=== PATIENT | female | born 1955 | race Caucasian/White ===

== ENCOUNTER 2016-11-21 07:25 | Observation (INO) ==
[2016-11-21] MEDS ORDERED: Aspirin 81 MG TAB.CHEW PO ONE (07:37)
[2016-11-21] MEDS ORDERED: methylPREDNISolone 125 MG/2 ML VIAL IVP ONE (07:38)
[2016-11-21] MEDS ORDERED: Ipratropium/Albuterol Neb 3 ML IH ONE (07:38)
[2016-11-21] MEDS ORDERED: *HR* LORazepam 2 MG/ML VIAL IVP ONE (07:38)
[2016-11-21 08:05] LABS: Basophils # 0.1 K/mcL (0.0-0.2); Basophils % 1.1 %; Eosinophils # 0.3 K/mcL (0.0-0.6); Eosinophils % 2.4 %; Hematocrit 38.9 % (35.3-44.9); Hemoglobin 11.6 g/dL (11.5-15.4); Immature Granulocytes % 1.7 % (0-4); Lymphocytes # 2.9 K/mcL (0.6-4.6); Mean Corpuscular HGB Conc 29.8 g/dL (31.6-35.5); Mean Corpuscular Volume 83.8 fL (83.0-100.0); Mean Platelet Volume 11.3 fL (9.4-12.4); Monocytes # 0.6 K/mcL (0.0-1.3); Monocytes % 4.4 %; Platelet Count 202 K/mcL (140-400); Red Blood Count 4.64 M/mcL (3.82-4.97); Red Cell Distribution Width 15.3 % (11.5-14.5); Segmented Neutrophils % 68.4 %
[2016-11-21 08:11] LABS: INR 0.9; Prothrombin Time 10.1 Seconds (9.4-12.1)
[2016-11-21 08:14] LABS: Activated Partial Thrombo Time 27.8 Seconds (26.0-36.0)
[2016-11-21 08:21] LABS: BUN/Creatinine Ratio 27 (6-26); Blood Urea Nitrogen 25 mg/dL (7-20); Calcium 9.1 mg/dL (8.6-10.8); Carbon Dioxide 25 mEq/L (19-29); Chloride 99 mEq/L (98-109); Glucose 382 mg/dL (70-99); Osmolality,Calculated 300 (280-300); Potassium 4.3 mEq/L (3.5-4.5); Sodium 135 mEq/L (136-145); eGFR For African Americans > 60 (> 60); eGFR For Non-African Americans > 60 (> 60)
--- NOTE | 2016-11-21 08:59 | Emergency Department Note ---
Disposition Clinical Impression: Hypoxia Chest pain Qualifiers: Chest pain type: unspecified Qualified Code(s): R07.9 - Chest pain, unspecified COPD (chronic obstructive pulmonary disease) Qualifiers: COPD type: COPD with acute exacerbation Qualified Code(s): J44.1 - Chronic obstructive pulmonary disease with (acute) exacerbation Disposition: Admitted As Inpatient Condition: Good Referrals: Corey Waddell DO [Resident] - Forms: ED Satisfaction Letter Time of Disposition: 09:43 General Adult HPI - General Chief complaint: ED Shortness of Breath/Dyspnea Stated complaint: CHEST PAIN, PAINS Time Seen by Provider: 11/21/16 07:30 Source: patient Mode of arrival: ambulatory Limitations: no limitations Nursing Notes Reviewed: Yes Vital Signs Reviewed: Yes - History of Present Illness HPI Narrative: Patient presents emergency room with complaint of chest pain shortness of breath. She has long-standing history of cardiac disease she has been admitted multiple times for this. She also has COPD and emphysema. She denies any recent travel or illnesses. She denies fevers chills nausea vomiting or diarrhea. Denies headache or vision changes remain complaint here is chest pain left side of her chest wall. She took 2 nitroglycerin at home and it did not do anything for her symptoms she also took her home inhaler medication and seemed to help with her breathing but she was concerned and decided to come in to the emergency room. 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 Radiation: back Pain Severity: moderate Pain Scale: 7 Quality: aching Consistency: constant Improves with: nothing Worsens with: movement Associated symptoms: Reports: chest pain, shortness of breath Treatments Prior to Arrival: none - Related Data Home Medications Medication Instructions Recorded Confirmed Budesonide/Formoterol 160/4.5 2 puff IH BIDR 04/21/15 11/21/16 [Symbicort] Gabapentin [Neurontin] 800 mg PO TID 04/21/15 11/21/16 Levothyroxine [Synthroid] 100 mcg PO QAM 04/21/15 11/21/16 Metformin [Glucophage] 1,000 mg PO BID 04/21/15 11/21/16 Tiotropium [Spiriva] 18 mcg IH QAM 04/21/15 11/21/16 Amlodipine Besylate 2.5 mg PO DAILY 12/27/15 11/21/16 Atorvastatin Calcium [Lipitor] 40 mg PO DAILY 02/04/16 11/21/16 Buspirone HCl [Buspar] 15 mg PO TID 02/04/16 11/21/16 Montelukast [Singulair] 10 mg PO HS 02/04/16 11/21/16 Oxygen 2 l NS AD PRN 03/17/16 11/21/16 Insulin Glargine [Lantus] 80 unit SQ QPM 03/25/16 11/21/16 Insulin Glargine [Lantus] 90 unit SQ QAM 03/25/16 11/21/16 Albuterol Sulfate [Albuterol 2 puff IH Q4HR PRN 05/01/16 11/21/16 Inhaler] Citalopram Hydrobromide 40 mg PO DAILY 05/01/16 11/21/16 [Citalopram HBr] Ipratropium/Albuterol Neb [Duoneb] 3 ml IH Q6H PRN 05/01/16 11/21/16 Raloxifene [Evista] 60 mg PO DAILY 05/01/16 11/21/16 TraMADol [Ultram] 50 mg PO BID 05/01/16 11/21/16 Dicyclomine HCl [Bentyl] 20 mg PO TID 06/15/16 11/21/16 Fenofibrate Nanocrystallized 145 mg PO DAILY 06/15/16 11/21/16 [Tricor] Promethazine [Phenergan] 25 mg PO Q12H PRN 06/15/16 11/21/16 Buprenorphine [Butrans] 10 mcg TD QWEEK 06/27/16 11/21/16 Baclofen [Lioresal] 10 mg PO TID 08/24/16 11/21/16 Metoprolol Tartrate 25 mg PO BID 08/24/16 11/21/16 Omeprazole [PriLOSEC] 20 mg PO BID 08/24/16 11/21/16 Bumetanide 2 mg PO BID 11/21/16 11/21/16 Metolazone [Zaroxolyn] 5 mg PO Q48H 11/21/16 11/21/16 Nortriptyline [Pamelor] 25 mg PO HS 11/21/16 11/21/16 Oxycodone HCl/Acetaminophen 1 tab PO Q4H PRN 11/21/16 11/21/16 [Percocet 5-325 mg Tablet] Previous Rx's Medication Instructions Recorded Isosorbide MONOnitrate (24 HR) 90 mg PO QAM #90 tab.er.24h 02/05/16 [Imdur] Aripiprazole [Abilify] 10 mg PO HS tablet 05/03/16 ClonazePAM [Klonopin] 1 mg PO TID tablet 05/03/16 Clopidogrel [Plavix] 75 mg PO QAM tablet 06/18/16 Ondansetron HCl [Zofran] 4 mg PO Q6H PRN #20 tablet 08/07/16 Potassium Chloride 40 meq PO DAILY #7 tab.er.prt 10/27/16 Allergies Allergy/AdvReac Type Severity Reaction Status Date / Time No Known Allergies Allergy Verified 11/12/16 02:17 All systems ED: reviewed and negative except as stated. Constitutional: Denies: fever, chills Cardiovascular: Reports: chest pain, dyspnea on exertion, orthopnea. Denies: palpitations Respiratory: Reports: cough, dyspnea, sputum production. Denies: wheezes, stridor Gastrointestinal: Denies: abdominal pain, nausea, vomiting, diarrhea Genitourinary: Denies: dysuria Musculoskeletal: Denies: back pain, neck pain Psychiatric: Denies: anxiety, depression Past Medical History - Past Medical History Attestation: Yes The following information was validated with the patient. 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 Absent : tenderness - Respiratory Respiratory exam: Present: normal lung sounds bilaterally, wheezes. Absent: respiratory distress, stridor, accessory muscle use - Cardiovascular Cardiovascular exam: Present: regular rate, normal rhythm, normal heart sounds - Abdominal Exam Abdominal exam: Present: soft, Non-Tender, normal bowel sounds. Absent: tenderness, distention, guarding, rebound, rigidity, Santana's sign, Rovsing's sign, tenderness at McBurney's Point - Extremities Exam Extremities exam: Present: normal inspection, full ROM, normal capillary refill , pedal edema (Bilateral pitting edema up to the knee.). Absent: tenderness - Back Exam Back exam: Present: normal inspection - Neurological Exam Neurological exam: Present: alert, oriented X3, CN II-XII intact - Psychiatric Psychiatric exam: Present: normal affect Course Course Narrative: Patient seen and examined at the time of arrival. See history of present illness. 61-year-old female presents to emergency room complaining of left- sided chest pain and shortness of breath. She also feels like she is having palpitations. Vision has known cardiac disease that required stenting back in 2007. She is currently on Plavix. Vital signs reviewed on presentation are stable. EKG shows normal sinus rhythm with no acute pathology. This is reviewed and compared to an EKG done on 10/14/16. Patient took 2 nitroglycerin at home without any relief of the symptoms. She said it did not change at all. She also describes having COPD and emphysema for which she is on oxygen at all times at home. Patient on physical exam is in some mild distress she looks uncomfortable. Lungs do have intermittent wheezing. Otherwise clear. Heart is regular with no acute signs of murmur. Abdomen soft nontender nondistended. She moves all 4 extremities without difficulty. She has +2 pitting edema up to the knee. Patient has exertional dyspnea and conversational dyspnea based on evaluation. Patient will be treated for related issues with steroids and breathing treatments at this time. She will also have aspirin given even though she is on Plavix. Patient's to have EKG chest x-ray and troponin completed. Concern is noted for ACS based on her history. I discussed in detail at the bedside whether she fell at this was her lungs or heart. She feels at this time this is more likely to be her heart. She does have baseline anxiety treated her with a single dose of Ativan on presentation to him to help the symptoms. We will continue to monitor as workup is completed. Patient unfortunately will most likely admission for ACS rule out. We will continue monitoring treatment course to be completed. Repeat nitroglycerin was not warranted at this time. Symptoms to be controlled with pain medication and nausea medication this time. - Reevaluation(s) Reevaluation #1: Patient on a stable EKG chest x-ray shows no signs of acute pulmonary infiltrate. Patient says her breathing and chest discomfort has not gotten better with the breathing treatments while here. Pain is decreased during the treatment course. Nitroglycerin was not provided. Patient will have morphine and Zofran given. Nitroglycerin was held secondary to no relief of symptoms while at home. Patient to get admitted for acute coronary syndrome workup and rule out Time: 09:08 Reevaluation #2: Patient discussed with the hospitalist on here in the emergency room. Detailed review presentation symptoms were reviewed with the nurse practitioners is covering for Dr. mares No other recommendations or concerns at this point. Patient to be brought in the hospital for acute coronary syndrome rule out and COPD exacerbation. Patient stable resting comfortably in the bed. Admission process to be completed at this time. Patient is stable and resting comfortably. We will continue to monitor admission processes on. Time: 09:41 Vital Signs Temperature 98.9 F 11/21/16 07:37 Pulse Rate 73 11/21/16 07:37 Respiratory Rate 18 11/21/16 07:37 Blood Pressure 157/71 11/21/16 07:37 O2 Sat by Pulse Oximetry 94 L 11/21/16 07:37 Temperature 98.9 F 11/21/16 07:37 Pulse Rate 90 11/21/16 09:25 Respiratory Rate 18 11/21/16 09:25 Blood Pressure 158/71 11/21/16 09:25 O2 Sat by Pulse Oximetry 92 L 11/21/16 09:25 Oxygen Delivery Oxygen Delivery Nasal Cannula Medical Decision Making - MDM Narrative Medical decision making narrative: Acute coronary syndrome, COPD exacerbation, chest pain - Medical Records Medical records reviewed: Yes I reviewed the patient's medical records. - Lab Data Lab results reviewed: Yes I reviewed the patient's lab results. Result diagrams: 11/21/16 07:55 11/21/16 07:55 Lab Results 11/21/16 11/21/16 11/21/16 Range/Units 07:55 07:55 07:55 WBC 13.1 H (4.3-11.1) K/mcL RBC 4.64 (3.82-4.97) M/mcL Hgb 11.6 (11.5-15.4) g/dL Hct 38.9 (35.3-44.9) % MCV 83.8 (83.0-100.0) fL MCH 25.0 L (28.0-33.3) pg MCHC 29.8 L (31.6-35.5) g/dL RDW 15.3 H (11.5-14.5) % Plt Count 202 (140-400) K/mcL MPV 11.3 (9.4-12.4) fL Immature Gran % 1.7 (0-4) % Seg Neutrophils % 68.4 % Lymphocytes % 22.0 % Monocytes % 4.4 % Eosinophils % 2.4 % Basophils % 1.1 % Neutrophils # 9.0 H (1.6-8.9) K/mcL Lymphocytes # 2.9 (0.6-4.6) K/mcL Monocytes # 0.6 (0.0-1.3) K/mcL Eosinophils # 0.3 (0.0-0.6) K/mcL Basophils # 0.1 (0.0-0.2) K/mcL PT 10.1 (9.4-12.1) Seconds INR 0.9 APTT 27.8 (26.0-36.0) Seconds Sodium (136-145) mEq/L Potassium (3.5-4.5) mEq/L Chloride (98-109) mEq/L Carbon Dioxide (19-29) mEq/L BUN (7-20) mg/dL Creatinine (0.57-1.11) mg/dL Est GFR ( Amer) (> 60) Est GFR (Non-Af Amer) (> 60) BUN/Creatinine Ratio (6-26) Glucose (70-99) mg/dL Calculated Osmolality (280-300) Calcium (8.6-10.8) mg/dL Troponin I (0-0.03) ng/mL B-Natriuretic Peptide 42 (0-100) pg/mL 11/21/16 11/21/16 Range/Units 07:55 07:55 WBC (4.3-11.1) K/mcL RBC (3.82-4.97) M/mcL Hgb (11.5-15.4) g/dL Hct (35.3-44.9) % MCV (83.0-100.0) fL MCH (28.0-33.3) pg MCHC (31.6-35.5) g/dL RDW (11.5-14.5) % Plt Count (140-400) K/mcL MPV (9.4-12.4) fL Immature Gran % (0-4) % Seg Neutrophils % % Lymphocytes % % Monocytes % % Eosinophils % % Basophils % % Neutrophils # (1.6-8.9) K/mcL Lymphocytes # (0.6-4.6) K/mcL Monocytes # (0.0-1.3) K/mcL Eosinophils # (0.0-0.6) K/mcL Basophils # (0.0-0.2) K/mcL PT (9.4-12.1) Seconds INR APTT (26.0-36.0) Seconds Sodium 135 L (136-145) mEq/L Potassium 4.3 (3.5-4.5) mEq/L Chloride 99 (98-109) mEq/L Carbon Dioxide 25 (19-29) mEq/L BUN 25 H (7-20) mg/dL Creatinine 0.93 (0.57-1.11) mg/dL Est GFR ( Amer) > 60 (> 60) Est GFR (Non-Af Amer) > 60 (> 60) BUN/Creatinine Ratio 27 H (6-26) Glucose 382 H (70-99) mg/dL Calculated Osmolality 300 (280-300) Calcium 9.1 (8.6-10.8) mg/dL Troponin I 0.00 (0-0.03) ng/mL B-Natriuretic Peptide (0-100) pg/mL - Radiology Data Radiology results reviewed: Yes I reviewed the patient's radiology results. Chest x-ray is negative for acute pathology - EKG Data EKG #1 EKG attestation: Yes I reviewed and interpreted this EKG. EKG shows normal: sinus rhythm, axis, intervals, QRS complexes, ST-T waves Rate: normal Rhythm: NSR [place]/QRS: normal When compared to previous EKG there are: no significant changes Interpretation: no acute changes, unchanged when compared to prior tracing (date ) (10/14/16) Attestation Statement - Attestation Attestation: I examined this patient and my medical decision-making was reviewed with the GEOPHYSICAL LABORATORY CHIEF/PA/Advanced Practice Nurse/Resident Physician. I agree with the documented findings, disposition and treatment plan as described except to the extent set forth below. Patient emergency department complaining of chest pain. States she woke up with her today. Left-sided. History of multiple cardiac stents. Examination she is in no acute distress. Heart regular rate and rhythm. Plan. Cardiac workup and likely observation.
[2016-11-21] MEDS ORDERED: *HR* Morphine 2 MG/ML SYRINGE IVP ONE (09:05)
[2016-11-21] MEDS ORDERED: Ondansetron 4 MG/2 ML VIAL IV ONE (09:06)
[2016-11-21 09:42] LABS: Bilirubin,Urine Negative (Negative); Blood,Urine Negative (Negative); Clarity,Urine Clear (Clear); Color,Urine Yellow (Yellow); Glucose,Urine (UA) >=1000 mg/dL (Normal); Ketones,Urine Negative (Negative); Leukocyte Esterase,Urine Small (Negative); Nitrite,Urine Negative (Negative); Protein,Urine Negative (Neg-Trace); Urobilinogen,Urine Normal (Normal)
[2016-11-21 10:02] LABS: Bacteria,Urine Few per hpf (None-Few); RBC,Urine 0-3 per hpf (0-3); Squamous Epithelial Cell,Urine Few per lpf (None-Few); WBC,Urine 0-3 per hpf (0-3)
--- NOTE | 2016-11-21 11:01 | Internal Med History&Physical ---
<Michael Floyd - Last Filed: 11/21/16 17:30> Assessment and Plan (1) COPD (chronic obstructive pulmonary disease) Current visit: Yes Status: Acute Qualifiers: COPD type: COPD with acute exacerbation Qualified Code(s): J44.1 - Chronic obstructive pulmonary disease with (acute) exacerbation (2) Chest pain Current visit: No Status: Acute Qualifiers: Chest pain type: precordial pain Qualified Code(s): R07.2 - Precordial pain (3) Chronic venous stasis dermatitis of both lower extremities Current visit: No Status: Chronic (4) Diabetes Current visit: No Status: Chronic 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 mellitus type: type 2 Diabetes mellitus complication status: with hyperglycemia 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 Lynch is a 61 year old female Internal Medicine - H&P: Meds Budesonide/Formoterol 160/4.5 [Symbicort] 2 puff IH BIDR 04/21/15 [History] Gabapentin [Neurontin] 800 mg PO TID 04/21/15 [History] Levothyroxine [Synthroid] 100 mcg PO QAM 04/21/15 [History] Metformin [Glucophage] 1,000 mg PO BID 04/21/15 [History] Tiotropium [Spiriva] 18 mcg IH QAM 04/21/15 [History] Amlodipine Besylate 2.5 mg PO DAILY 12/27/15 [History] Atorvastatin Calcium [Lipitor] 40 mg PO DAILY 02/04/16 [History] Buspirone HCl [Buspar] 15 mg PO TID 02/04/16 [History] Montelukast [Singulair] 10 mg PO HS 02/04/16 [History] Isosorbide MONOnitrate (24 HR) [Imdur] 90 mg PO QAM #90 tab.er.24h 02/05/16 [Rx] Oxygen 2 l NS AD PRN 03/17/16 [History] Insulin Glargine [Lantus] 80 unit SQ QPM 03/25/16 [History] Insulin Glargine [Lantus] 90 unit SQ QAM 03/25/16 [History] Albuterol Sulfate [Albuterol Inhaler] 2 puff IH Q4HR PRN 05/01/16 [History] Citalopram Hydrobromide [Citalopram HBr] 40 mg PO DAILY 05/01/16 [History] Ipratropium/Albuterol Neb [Duoneb] 3 ml IH Q6H PRN 05/01/16 [History] Raloxifene [Evista] 60 mg PO DAILY 05/01/16 [History] TraMADol [Ultram] 50 mg PO BID 05/01/16 [History] Aripiprazole [Abilify] 10 mg PO HS tablet 05/03/16 [Rx] ClonazePAM [Klonopin] 1 mg PO TID tablet 05/03/16 [Rx] Dicyclomine HCl [Bentyl] 20 mg PO TID 06/15/16 [History] Fenofibrate Nanocrystallized [Tricor] 145 mg PO DAILY 06/15/16 [History] Promethazine [Phenergan] 25 mg PO Q12H PRN 06/15/16 [History] Clopidogrel [Plavix] 75 mg PO QAM tablet 06/18/16 [Rx] Buprenorphine [Butrans] 10 mcg TD QWEEK 06/27/16 [History] Ondansetron HCl [Zofran] 4 mg PO Q6H PRN #20 tablet 08/07/16 [Rx] Baclofen [Lioresal] 10 mg PO TID 08/24/16 [History] Metoprolol Tartrate 25 mg PO BID 08/24/16 [History] Omeprazole [PriLOSEC] 20 mg PO BID 08/24/16 [History] Bumetanide 2 mg PO BID 11/21/16 [History] Meclizine [Antivert] 25 mg PO PRN PRN 11/21/16 [History] Metolazone [Zaroxolyn] 5 mg PO Q48H 11/21/16 [History] Nortriptyline [Pamelor] 25 mg PO HS 11/21/16 [History] Oxycodone HCl/Acetaminophen [Percocet 5-325 mg Tablet] 1 tab PO Q4H PRN [History] Potassium Chloride 40 meq PO BID 11/21/16 [History] Allergies No Known Allergies Allergy (Verified 11/12/16 02:17) All Systems PM: A 10-system review of systems was performed and is negative for pertinent findings except as documented above in the HPI. - Constitutional Vitals: Temp Pulse Resp BP Pulse Ox 97.6 F 67 16 132/63 95 11/21/16 17:20 11/21/16 17:20 11/21/16 17:20 11/21/16 17:20 11/21/16 17:20 Internal Med - H&P Results - Labs CBC & Chem 7: 11/21/16 07:55 11/21/16 07:55 Labs: Cardiac Enzymes 11/21/16 Range/Units 14:32 Troponin I 0.00 (0-0.03) ng/mL - Attending Attestation I examined this patient and my medical decision-making was reviewed with the Advanced Practice Nurse on 11/21/16. I agree with the documented findings, disposition and treatment plan as described except to the extent set forth below. Ms. Lynch is a 61 y/o female with multiple medical problems who presented to ED with chest pain and dyspnea. She stated she has a lot of secretions that she can't seem to get up. She feels this pain is cardiac though initial work up negative and nitro did not relieve pain. No fever or chills. No worsening of cough ro secretions. Not smoking now. Exam Alert. Comfortable in bed Mucus membranes dry Heart reg Lungs with some scattered rhonchi in both bases. No wheeze Abd soft Chronic venous stasis changes noted. I/P 1. Chest pain - atypical - on R side, no assoc symptoms, nitro not helpful. R/ O WA. NPO at midnight in case needs any testing. 2. COPD - acute. Steroids, cough syrup, abx, aerosols Added mucomyst for 24 hours. Further diagnoses and plan as outliined in H&P above. <Ashok Gross - Last Filed: 11/21/16 20:55> Date of Encounter: 11/21/16 Time of Encounter: 10:47 Assessment and Plan (1) Chest pain Current visit: Yes Status: Acute Patient reports chest pain and shortness of breath and rates her pain as 7 out of 10 on a 0 to 10 scale. Patient states chest pain is acute and unresolved by two nitroglycerin rounds she took at home prior to coming to the ED on 11/21/16. Patient will be closely monitored and assessed while inpatient for cardiac changes. EKG ordered as well as nitroglycerin to be used PRN in the event pain medication does not work. Patient's diet to include cardiac, diabetic, and fluid restriction. DVT prophylaxis ordered. Patient to be placed NPO status after midnight on 11/21/2016 for possible cardiac stress test in the a.m. on 11/22. Serial troponins and continuous cardiac monitoring ordered. Qualifiers: Chest pain type: other chest pain Qualified Code(s): R07.89 - Other chest pain; R07.8 - Other chest pain (2) Shortness of breath Current visit: Yes Status: Acute Patient reports acute SOB related to COPD exacerbation which continues in duration. Patient placed on continuous pulse oximetry to monitor O2 saturation. Patient receiving O2 via nasal cannula with orders for titration if SpO2 falls below 92%. Other orders include a consult for respiratory therapy, and guaifenesin for expression of mucus. Will continue with albuterol inhaler, ipratropium/albuterol nebulizer, Singulair, and Spiriva. Patient to receive methylprednisone to relieve inflammation in airway and lungs. Patient will be monitored for O2 status. Falls prevention protocol initiated. (3) COPD exacerbation Current visit: Yes Status: Acute Patient reports acute SOB due to COPD exacerbation which continues in duration. Patient placed on continuous pulse oximetry to monitor O2 saturation. Patient receiving O2 via nasal cannula with orders for titration if SpO2 falls below 92% . Other orders include a consult for respiratory therapy, and guaifenesin for expression of mucus. Will continue with albuterol inhaler, ipratropium/ albuterol nebulizer, Singulair, and Spiriva. Patient to receive methylprednisone to relieve inflammation in airway and lungs. Patient will be monitored for O2 status and shortness of breath. (4) Type 2 diabetes mellitus Current visit: Yes Status: Acute Not well controlled based on Hgb A1c of 9.1% Diabetic, heart healthy diet check blood sugars ACHS Continue home basal dose of insulin with 90u levemir every morning and 80u levemir every evening Sliding scale correction dose ACHS hypoglycemic protocol. 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 BNP normal at 42. Patient appears euvolemic on exam. Continue home doses of bumetanide, metolazone, metoprolol. Daily weights intake/output Heart healthy diet with 1.5L fluid restriction. (6) DVT prophylaxis Current visit: Yes Status: Acute ambulate with assistance foot pumps lovenox 40mg SQ daily Internal Medicine - H&P: HPI Chief complaint: SOB, Chest Pain Admitted From: Home Plans for Post Hospital Care: Home History of present illness: Ms. Lynch is a 61 year old female with a history of cardiac disease, COPD, emphysema, DM, CHF, IBS, anxiety, and depression. Patient denies fever, chills, nausea, vomiting, or diarrhea at the present time. Patient reports that she began experiencing chest pain between approximately 3 to 4 a.m. on 11/21/2016 which woke her up. She also reports that she is experiencing ear pain in her right ear which she describes as a pulsing, intermittent pain which radiates up the right side of her neck and also radiates around the right ride to her back. She rates the pain at a 7 on a scale of 0 to 10 with 0 being no pain and 10 being the worst pain she's experienced. Patient denies any headache, blurry or otherwise impaired vision or vision changes, dizziness, or syncope. Patient reports taking two nitroglycerin while at home which did not help her pain or symptoms. Patient was at ease and able to converse well during my examination and assessment. Past Med Surg Social Fam HX - Past Medical History Medical history: arthritis, CHF, COPD, coronary artery disease, diabetes, GERD, hyperlipidemia, hypertension, osteoporosis, thyroid disease, venous stasis, other Psychiatric history: anxiety, bipolar, depression, panic disorder - Past Surgical History Surgical History: angioplasty/stent (Patient reports having four cardiac stents placed. Three stents were placed at [facility] in 2004 and one stent was placed at [facility] in 2007.), , cholecystectomy, hysterectomy, other - Social History Smoking Status: Former smoker Packs per day: 3 packs per day Smokeless Tobacco Status: Yes (vapor) Alcohol use: none Drug use: none Current living situation: With Family Activity Level: Independent ambulation Recent Out of Country Travel Within the Last 8 Weeks: No Exposure or Possible Exposure to Illness During Travel: No - Family History Father Adopted: No Family Member Ethnicity: Non- Living Status: Hx Family Cardiac Disorders: Yes Mother History Unknown: Yes Adopted: No Family Member Ethnicity: Non- Living Status: Hx Family Cardiac Disorders: No Hx Family Respiratory Disorders: No Hx Family Cancer: No Hx Family GI Disorders: No Hx Family Genitourinary Disorders: No Hx Family Endocrine Disorder: Yes Hx Family Neuromuscular Disorders: No Hx Family Neurologic Disorders: No Hx Family HEENT Disorders: No Hx Family Autoimmune Disorders: No All Systems PM: A 10-system review of systems was performed and is negative for pertinent findings except as documented above in the HPI. - Constitutional Constitutional: fatigue, weight loss Additional comments: Mrs. Lynch is a severely obese patient with a BMI of 43. Patient reports that she has had intentional weight loss of 45 pounds over the past 8 to 9 months due to dietary changes and exercise. Patient also reports that she quit smoking 8 months ago which also helped with her weight loss efforts. Patient reports occasional fatigue related to her COPD and CHF diagnoses. Patient also reports she has a bad back with chronic pain and chronic pain in her left leg since 1999. - EENT Eyes: no change in vision, no discharge, no pain, no photophobia Additional comments: Patient has pupils that are equal, round, reactive to light and accommodation upon my examination. Ears: no ear discharge, no ear pain, no tinnitus Nose, mouth and throat: no dysphagia, no nasal discharge, no neck pain, no sore throat - Breasts Breasts: as per HPI Additional comments: Patient reports no changes in her breasts. - Cardiovascular Cardiovascular ROS IM: as per HPI, chest pain, dyspnea on exertion Additional comments: Patient reports chest pain and SOB related to her current COPD exacerbation. - Respiratory Respiratory: as per HPI, cough, dyspnea on exertion, snoring Additional comments: Patient reports chest pain and SOB related to her current COPD exacerbation. Patient's reports that she snores when asleep and also experiences periods of apnea. Patient reports having a sleep study several years ago at [place]. I will attempt to verify through medical records. Patient reports she uses home O2 at 2-3L PRN. Patient denies use of BiPap or Cpap. Patient reports she sleeps on the couch with several pillows to elevate her head. Patient reports Dr. Corey Waddell diagnosed her approximately three weeks ago with fluid in her lungs. Prescribed diuretics helped this to resolve. Patient also reports cough with no sputum production. - Gastrointestinal Gastrointestinal: no abdominal pain, no diarrhea, no hematemesis, no hematochezia, no melena, no nausea, no vomiting Additional comments: Patient denies diarrhea and reports her last BM at midnight on 11/21/2016. BM was formed and brown. Patient denies presence of fecal occult blood. - Genitourinary Genitourinary: flank pain, no change in urinary stream, no dysuria, no hematuria Additional comments: Patient reports she experienced periods of inability to urinate earlier this month for which she was seen here at [facility]. This was verified in her medical records. She was catheterized and returned home. Patient reports she experienced pain and burning after having the catheter removed. Patient reports these symptoms have improved. Patient has some mild bilateral flank pain upon physical examination. Menstruation: as per HPI - Musculoskeletal Musculoskeletal ROS IM: no numbness, no tingling - Integumentary Integumentary IM: other Additional comments: Bilateral cellulitis and erythema in her lower legs upon examination. - Neurological Neurological ROS: frequent falls, restless legs Additional comments: Patient reports she stumbles sometimes while at home which resulted in a humerus fracture of her right arm in July of 2016. Will initiate falls risk protocol for her admission. Patient also reports having restless legs at night. - Psychiatric Psychiatric: anxiety, depression Additional comments: Patient reports having a history of anxiety and depression which she currently takes medications for. - Endocrine Endocrine IM: as per HPI - Hematologic/Lymphatic Hematologic/Lymphatic: no easy bruising - Allergic/Immunologic Allergic/Immunologic: as per HPI Additional comments: Patient reports no known allergies at this time. - Constitutional Vitals: Temp Pulse Resp BP Pulse Ox 98.9 F 80 17 166/83 92 L 11/21/16 07:37 11/21/16 10:34 11/21/16 10:34 11/21/16 10:34 11/21/16 10:34 General appearance: Present: cooperative, A&O X 3, morbidly obese, pleasant - Head Head exam: Present: atraumatic, normocephalic - Eye Eye exam: Present: PERRL, conjuntiva pink, sclera anicteric Pupils: Present: PERRL - ENT ENT exam: Present: normal exam - Neck Additional comments: Patient experiencing pulsing, intermittent pain that radiates up her right neck to her ear at the present time. - Respiratory Respiratory exam: Present: wheezes Additional comments: Patient has mild expiratory wheezes bilaterally in upper lobes upon examination. Improves with coughing. - Cardiovascular Cardiovascular exam: Present: RRR, +S1, +S2. Absent: diastolic murmur, gallop, rubs, systolic murmur - GI/Abdominal GI/Abdominal exam: Present: normal bowel sounds - Rectal Rectal exam: Present: deferred - Additional comments: Genitourinary exam not performed. - Extremities Exam Extremities exam: Present: warm, radial pulses palpable and symetrical Additional comments: Patient has bilateral cellulitis and erythema present on her lower legs at present time. - Back Exam Back exam: Present: tenderness Additional comments: Patient experiencing bilateral flank tenderness at present time upon examination. - Neurological Exam Neurological exam: Present: alert, CN II-XII intact, oriented X3, reflexes normal, no focal deficits, strengths equal and symetr throughout - Psychiatric Additional comments: Patient reports receiving Ativan while in the ED and presently not experiencing any anxiety. - Skin Skin exam: Present: erythema, normal color, warm Additional comments: Patient has bilateral cellulitis and erythema on her lower legs. Internal Med - H&P Results - Labs CBC & Chem 7: 11/21/16 07:55 11/21/16 07:55 - EKG Data EKG shows normal: sinus rhythm - EKG Data Prior EKG available for review: yes When compared to previous EKG: there is no significant change EKG comments: 11/21/16 11:35 Patient's EKG shows sinus rhythm with low QRS voltage in precordial leads and possible anterior myocardial infarction (probably old). There are no significant changes in the EKG from 10/14/16 and 10/24/16. - Diagnostic Studies Other Images Additional comments: Echocardiogram in 2016 shows mild aortic regurgitation.
[2016-11-21] MEDS ORDERED: Naloxone 0.4 MG/ML INJ IVP PRN (12:25)
[2016-11-21] MEDS ORDERED: D5% in Water 1,000 ML IVC PRN (12:52)
[2016-11-21] MEDS ORDERED: Dextrose Gel 15 GM PO PRN ×2 (12:52)
[2016-11-21] MEDS ORDERED: Albuterol 2.5 MG/3 ML NEBULIZER IH PRN (12:52)
[2016-11-21] MEDS ORDERED: *HR* Dextrose 50 % in Water (Syg) 50 ML SYRINGE IVP PRN (12:52)
[2016-11-21] MEDS ORDERED: Insulin DETEMIR 100 UNIT/ML X5UNITS SQ ONE (13:04)
[2016-11-21] MEDS: Gabapentin 400 MG CAPSULE PO SCH ×2 (13:37→21:23)
[2016-11-21] MEDS: Fenofibrate 54 MG TABLET PO SCH (13:38)
[2016-11-21] MEDS: metOLazone 5 MG TABLET PO SCH (13:38)
[2016-11-21] MEDS: clonazePAM 1 MG TABLET PO SCH ×2 (13:38→21:24)
[2016-11-21] MEDS: Baclofen 10 MG TABLET PO SCH ×2 (13:38→21:24)
[2016-11-21] MEDS: Isosorbide MONOnitrate (24 HR) 30 MG TAB.ER.24H PO SCH (13:39)
[2016-11-21] MEDS: NORVASC PO SCH (13:39)
[2016-11-21] MEDS: *HR* OxyCODONE/APAP 5/325 TABLET PO PRN ×3 (13:40→21:50)
[2016-11-21] MEDS: Bumetanide 1 MG TABLET PO SCH ×2 (13:46→21:37)
[2016-11-21] MEDS: traMADol 50 MG TABLET PO SCH ×2 (13:46→21:24)
[2016-11-21] MEDS: Insulin LISPRO 300 UNITS/3 ML VIAL SQ SCH ×3 (14:24→21:26)
[2016-11-21] MEDS: Budesonide/Formoterol 160/4.5 MDI IH SCH ×2 (15:40→22:35)
[2016-11-21] MEDS: Ipratropium/Albuterol Neb 3 ML IH SCH ×3 (15:40→22:36)
[2016-11-21] MEDS: Tiotropium 18 MCG inhalation IH SCH (15:40)
[2016-11-21] MEDS ORDERED: GuaiFENesin/Codeine Oral Soln 5 ML UDC PO PRN (17:25)
[2016-11-21] MEDS: MethylPREDNISolone 40 MG/ML VIAL IVP SCH ×2 (17:38→23:52)
[2016-11-21] MEDS ORDERED: Nitroglycerin 0.4 MG TAB.SUBL SL PRN (18:59)
[2016-11-21] MEDS: Ondansetron ODT 4 MG TAB.RAPDIS PO PRN (19:41)
[2016-11-21] MEDS: 0.9 % Sodium Chloride 1,000 ML IVC SCH (19:41)
[2016-11-21] MEDS: ARIPiprazole 10 MG TABLET PO SCH (21:23)
[2016-11-21] MEDS: Nystatin POWDER 30 GM BOTTLE TP SCH (21:26)
[2016-11-21] MEDS: Insulin DETEMIR 100 UNIT/ML X5UNITS SQ SCH (21:26)
[2016-11-21] MEDS: Acetylcysteine 10% 2 ML INHSOL IH SCH ×2 (22:36→23:21)
[2016-11-22] MEDS: *HR* OxyCODONE/APAP 5/325 TABLET PO PRN ×4 (03:36→21:29)
[2016-11-22] MEDS: Ondansetron ODT 4 MG TAB.RAPDIS PO PRN ×2 (03:36→21:29)
[2016-11-22 05:05] LABS: Basophils # 0.1 K/mcL (0.0-0.2); Basophils % 0.3 %; Hematocrit 38.9 % (35.3-44.9); Hemoglobin 11.8 g/dL (11.5-15.4); Lymphocytes # 1.5 K/mcL (0.6-4.6); Lymphocytes % 9.8 %; Mean Corpuscular HGB Conc 30.3 g/dL (31.6-35.5); Mean Corpuscular Hemoglobin 24.7 pg (28.0-33.3); Mean Corpuscular Volume 81.6 fL (83.0-100.0); Mean Platelet Volume 11.7 fL (9.4-12.4); Monocytes # 0.4 K/mcL (0.0-1.3); Monocytes % 2.4 %; Neutrophils # 13.1 K/mcL (1.6-8.9); Platelet Count 285 K/mcL (140-400); Red Blood Count 4.77 M/mcL (3.82-4.97); Red Cell Distribution Width 15.1 % (11.5-14.5); Segmented Neutrophils % 85.5 %
[2016-11-22 05:22] LABS: BUN/Creatinine Ratio 27 (6-26); Blood Urea Nitrogen 27 mg/dL (7-20); Calcium 9.2 mg/dL (8.6-10.8); Carbon Dioxide 27 mEq/L (19-29); Chloride 97 mEq/L (98-109); Glucose 297 mg/dL (70-99); Osmolality,Calculated 298 (280-300); Potassium 4.2 mEq/L (3.5-4.5); Sodium 136 mEq/L (136-145); eGFR For African Americans > 60 (> 60); eGFR For Non-African Americans 56 (> 60)
[2016-11-22] MEDS: Ipratropium/Albuterol Neb 3 ML IH SCH ×4 (05:32→22:50)
[2016-11-22] MEDS: Acetylcysteine 10% 2 ML INHSOL IH SCH ×5 (05:32→22:50)
[2016-11-22] MEDS: *HR* Enoxaparin 40 MG/0.4 ML SYRINGE SQ SCH (05:55)
--- NOTE | 2016-11-22 07:20 | Electrocardiograph Report ---
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
[2016-11-22] MEDS: Nystatin POWDER 30 GM BOTTLE TP SCH ×2 (08:36→19:43)
[2016-11-22] MEDS: Insulin LISPRO 300 UNITS/3 ML VIAL SQ SCH ×4 (08:36→21:29)
[2016-11-22] MEDS: Gabapentin 400 MG CAPSULE PO SCH ×3 (08:36→19:40)
[2016-11-22] MEDS: Fenofibrate 54 MG TABLET PO SCH (08:36)
[2016-11-22] MEDS: clonazePAM 1 MG TABLET PO SCH ×3 (08:37→19:41)
[2016-11-22] MEDS: Isosorbide MONOnitrate (24 HR) 30 MG TAB.ER.24H PO SCH (08:37)
[2016-11-22] MEDS: Bumetanide 1 MG TABLET PO SCH ×2 (08:39→19:42)
[2016-11-22] MEDS: traMADol 50 MG TABLET PO SCH ×2 (08:39→19:41)
[2016-11-22] MEDS: MethylPREDNISolone 40 MG/ML VIAL IVP SCH ×2 (08:40→17:32)
[2016-11-22] MEDS: Baclofen 10 MG TABLET PO SCH ×3 (08:40→19:42)
[2016-11-22] MEDS: Insulin DETEMIR 100 UNIT/ML X5UNITS SQ SCH ×2 (08:40→19:42)
[2016-11-22] MEDS: NORVASC PO SCH (08:40)
--- NOTE | 2016-11-22 10:12 | Internal Med Progress Note ---
Date of Encounter: 11/22/16 Time of Encounter: 09:30 - Assessment and plan (1) Chest pain Current Visit: Yes Status: Acute Assessment and plan: Patient with right-sided chest pain. She states it is intermittent. She denies increased pain with movement or deep inspiration. Chest pain is not reproducible with palpation. Troponins negative 3. Chest x-ray negative. Lungs clear to auscultation bilaterally with good aeration. Low suspicion for cardiac or pulmonic etiology. Initially plan to stress test her today however she had nitroglycerin overnight, we will workup abdominal etiologies and if unremarkable, will perform stress test tomorrow. We will obtain abdominal CT given her history of losing 45 pounds over the past 8 months, her feeling of indigestion, her urinary retention necessitating 2 Driscoll catheters over the past week and a half. We will also trial GI cocktail. ITS Impressions Chest X-Ray 11/21/16 07:37 IMPRESSION: No evidence for acute cardiopulmonary process. D/ / Horace Benavidez MD / Horace Benavidez MD Interpreting Provider: Horace Benavidez MD Qualifiers: Chest pain type: other chest pain Qualified Code(s): R07.89 - Other chest pain; R07.8 - Other chest pain (2) UTI (urinary tract infection) Current Visit: No Status: Suspected Assessment and plan: Patient stating that she has had to have 2 Driscoll catheters over the last week and a half due to urinary retention. She states that she is able to void but complains of dysuria. Urinalysis was abnormal however urine culture was mixed, will repeat urinalysis. Qualifiers: Urinary tract infection type: site unspecified Hematuria presence: without hematuria Qualified Code(s): N39.0 - Urinary tract infection, site not specified (3) CAD (coronary artery disease) Current Visit: No Status: Chronic Qualifiers: Coronary Disease-Associated Artery/Lesion type: habematolel artery [place] vs. transplanted heart: habematolel heart Associated angina: without angina Qualified Code(s): I25.10 - Atherosclerotic heart disease of habemat[place]l coronary artery without angina pectoris (4) Insulin dependent diabetes mellitus Current Visit: No Status: Chronic Assessment and plan: Uncontrolled with an A1c of 9.7% on 11/01/16. Continue sliding scale while admitted. Patient has a lengthy history of noncompliance. We will continue education. (5) GERD (gastroesophageal reflux disease) Current Visit: No Status: Chronic Assessment and plan: Currently symptomatic. Patient complaining of indigestion. At home, she is on Phenergan as needed, omeprazole 20 mg twice a day. She is still endorsing a normal appetite with intermittent nausea. We will trial a GI cocktail. Qualifiers: Esophagitis presence: esophagitis presence not specified Qualified Code(s) : K21.9 - Gastro-esophageal reflux disease without esophagitis (6) COPD (chronic obstructive pulmonary disease) Current Visit: Yes Status: Chronic Assessment and plan: No acute exacerbation. Patient denies shortness of breath above her norm. On room air. On examination, lungs clear to auscultation bilaterally with good aeration. Qualifiers: COPD type: unspecified COPD Qualified Code(s): J44.9 - Chronic obstructive pulmonary disease, unspecified (7) DVT prophylaxis Current Visit: No Status: Acute Assessment and plan: Subcutaneous Lovenox (8) Sleep apnea Current Visit: No Status: Chronic Assessment and plan: Patient states she wears 3 L per nasal cannula at that time, it appears as if she is noncompliant with CPAP Qualifiers: Sleep apnea type: unspecified type Qualified Code(s): G47.30 - Sleep apnea , unspecified (9) Hypothyroidism Current Visit: No Status: Chronic Assessment and plan: TSH checked in August of this year, normal Qualifiers: Hypothyroidism type: acquired Qualified Code(s): E03.9 - Hypothyroidism, unspecified (10) Anxiety and depression Current Visit: No Status: Chronic Assessment and plan: Mood and affect stable (11) HTN (hypertension) Current Visit: No Status: Chronic Assessment and plan: Controlled. At home, she is on metoprolol 25 mg twice a day, Imdur 90 mg daily , and amlodipine 2.5 mg daily. We will continue to trend Qualifiers: Hypertension type: essential hypertension Qualified Code(s): I10 - Essential (primary) hypertension (12) Tobacco use disorder Current Visit: No Status: Resolved Assessment and plan: Patient was a 3 pack per day smoker for over 40 years up until 9 months ago when she stopped. She states she has not smoked any cigarettes in 9 months (13) Chronic respiratory failure with hypoxia Current Visit: No Status: Chronic Assessment and plan: At home, she is on 2-3 L per nasal cannula as needed and at bedtime. She currently denies shortness of breath above her norm and she is currently on room air (14) Polypharmacy Current Visit: No Status: Chronic (15) CHF (congestive heart failure) Current Visit: No Status: Chronic Assessment and plan: Euvolemic on examination, patient denies shortness of breath. No pedal edema. No acute exacerbation. Chronic diastolic heart failure. Qualifiers: Congestive heart failure type: diastolic Congestive heart failure chronicity: chronic Qualified Code(s): I50.32 - Chronic diastolic (congestive ) heart failure (16) Non-compliance Current Visit: No Status: Chronic (17) Venous stasis dermatitis of both lower extremities Current Visit: No Status: Chronic Assessment and plan: No pitting edema. No signs of acute infection on examination. (18) Morbid obesity with BMI of 45.0-49.9, adult Current Visit: No Status: Chronic - Subjective Interval history: Patient seen and examined. On examination, patient sitting upright in bed. Patient complaining of right-sided chest pain that radiates up to the right side of her neck. She states her chest pain is not worsened with movement or deep breaths or with palpation. Patient also endorsing indigestion and states that she has had nausea over the past 3 days. No recent vomiting. She also states she has lost 45 pounds over the last 8 months, intentionally. She also complains of dysuria stating she had issues with urinary retention last week and had to have a Driscoll catheter last week. - Constitutional Vitals: Temp Pulse Resp BP Pulse Ox 97.8 F 77 17 132/64 92 L 11/22/16 06:42 11/22/16 06:42 11/22/16 06:42 11/22/16 06:42 11/22/16 06:42 General appearance: Present: cooperative, A&O X 3, morbidly obese, pleasant, answers questions appropriately - Head Head exam: Present: atraumatic, normocephalic - Eye Eye exam: Present: PERRL, conjuntiva pink, sclera anicteric Pupils: Present: PERRL - Neck Neck exam general surgery: Present: supple, trachea midline. Absent: lymphadenopathy - Respiratory Respiratory exam: Present: CTAB. Absent: accessory muscle use, decreased breath sounds, rales, respiratory distress, rhonchi, wheezes - Cardiovascular Cardiovascular exam: Present: RRR, +S1, +S2. Absent: diastolic murmur, gallop, rubs, systolic murmur - GI/Abdominal GI/Abdominal exam: Present: distended, normal bowel sounds, soft, no peritoneal signs. Absent: tenderness - Extremities Exam Extremities exam: Present: warm, radial pulses palpable and symetrical. Absent : calf tenderness, cyanotic, pedal edema (nonpitting) - Neurological Exam Neurological exam: Present: alert, CN II-XII intact, oriented X3, no focal deficits, strengths equal and symetr throughout. Absent: pronater drift, facial droop, speech deficit - Skin Skin exam: Present: dry, intact, normal color, warm Internal Medicine: Result - Labs CBC & Chem 7: 11/22/16 03:46 11/22/16 03:46 Labs: Short CBC 11/22/16 Range/Units 03:46 WBC 15.3 H (4.3-11.1) K/mcL Hgb 11.8 (11.5-15.4) g/dL Hct 38.9 (35.3-44.9) % Plt Count 285 (140-400) K/mcL Neutrophils # 13.1 H (1.6-8.9) K/mcL BMP 11/22/16 03:46 Sodium 136 Potassium 4.2 Chloride 97 L Carbon Dioxide 27 BUN 27 H Creatinine 1.01 Glucose 297 H Calcium 9.2 Cardiac Enzymes 11/21/16 11/21/16 Range/Units 14:32 20:25 Troponin I 0.00 0.00 (0-0.03) ng/mL - ABG Interpretation ABG results: PT/INR, D-dimer PT 10.1 Seconds (9.4-12.1) 11/21/16 07:55 Consult Discharge Plan - Plan Referrals: Corey Waddell DO [Primary Care Provider] -
[2016-11-22] MEDS ORDERED: GI Cocktail 40 ML EACH PO ONE (10:22)
[2016-11-22] MEDS: Tiotropium 18 MCG inhalation IH SCH (11:30)
[2016-11-22] MEDS: Budesonide/Formoterol 160/4.5 MDI IH SCH ×2 (11:30→22:50)
[2016-11-22 11:45] LABS: Bilirubin,Urine Negative (Negative); Blood,Urine Negative (Negative); Clarity,Urine Cloudy (Clear); Color,Urine Yellow (Yellow); Glucose,Urine (UA) Normal (Normal); Ketones,Urine Negative (Negative); Leukocyte Esterase,Urine Negative (Negative); Nitrite,Urine Negative (Negative); PH,Urine 6.5 pH Units (5.0-8.0); Protein,Urine Negative (Neg-Trace); Specific Gravity,Urine 1.012 (1.010-1.025); Urobilinogen,Urine Normal (Normal)
[2016-11-22 11:48] LABS: Bacteria,Urine None Seen per hpf (None-Few); Hyaline Casts,Urine None Seen per lpf (None-Few); RBC,Urine 0-3 per hpf (0-3); Squamous Epithelial Cell,Urine Moderate per lpf (None-Few); WBC,Urine 0-3 per hpf (0-3)
[2016-11-22] MEDS: 0.9 % Sodium Chloride 1,000 ML IVC SCH (14:48)
[2016-11-22] MEDS: ARIPiprazole 10 MG TABLET PO SCH (19:42)
[2016-11-23] MEDS: MethylPREDNISolone 40 MG/ML VIAL IVP SCH ×3 (00:19→15:45)
[2016-11-23] MEDS: 0.9 % Sodium Chloride 1,000 ML IVC SCH ×3 (02:08→20:01)
[2016-11-23] MEDS: *HR* OxyCODONE/APAP 5/325 TABLET PO PRN ×4 (03:20→22:03)
[2016-11-23 03:49] LABS: Basophils # 0.1 K/mcL (0.0-0.2); Basophils % 0.4 %; Eosinophils % 0.1 %; Hematocrit 40.7 % (35.3-44.9); Hemoglobin 12.3 g/dL (11.5-15.4); Immature Granulocytes % 1.9 % (0-4); Lymphocytes # 1.8 K/mcL (0.6-4.6); Lymphocytes % 12.8 %; Mean Corpuscular HGB Conc 30.2 g/dL (31.6-35.5); Mean Corpuscular Hemoglobin 24.6 pg (28.0-33.3); Mean Corpuscular Volume 81.6 fL (83.0-100.0); Mean Platelet Volume 11.4 fL (9.4-12.4); Monocytes # 0.5 K/mcL (0.0-1.3); Monocytes % 3.6 %; Neutrophils # 11.4 K/mcL (1.6-8.9); Platelet Count 286 K/mcL (140-400); Red Blood Count 4.99 M/mcL (3.82-4.97); Segmented Neutrophils % 81.2 %
[2016-11-23 04:03] LABS: BUN/Creatinine Ratio 33 (6-26); Blood Urea Nitrogen 34 mg/dL (7-20); Calcium 9.5 mg/dL (8.6-10.8); Carbon Dioxide 28 mEq/L (19-29); Chloride 96 mEq/L (98-109); Glucose 248 mg/dL (70-99); Osmolality,Calculated 302 (280-300); Potassium 3.6 mEq/L (3.5-4.5); Sodium 138 mEq/L (136-145); eGFR For African Americans > 60 (> 60); eGFR For Non-African Americans 54 (> 60)
[2016-11-23] MEDS: Ipratropium/Albuterol Neb 3 ML IH SCH ×4 (04:31→22:16)
[2016-11-23] MEDS: *HR* Enoxaparin 40 MG/0.4 ML SYRINGE SQ SCH (06:09)
--- NOTE | 2016-11-23 08:21 | Electrocardiograph Report ---
[address] [place] [address] Test Date: 2016-11-22 Pat Name: Claire Lynch Department: 113 Room: 3B16 Gender: F Lab Clerk: : 1955 Requested By: Ashok Gross Order Number: [id number] Reading MD: Maged Cleaning MD Measurements Intervals [place] Rate: 70 P: 63 NE: 161 QRS: 38 QRSD: 86 T: 30 QT: 433 QTc: 454 Interpretive Statements SINUS RHYTHM LOW QRS VOLTAGE IN PRECORDIAL LEADS SEPTAL MYOCARDIAL INFARCTION, OF INDETERMINATE AGE Electronically Signed On 11-23-2016 8:20:05 EDT by Maged Cleaning MD
[2016-11-23] MEDS: Isosorbide MONOnitrate (24 HR) 30 MG TAB.ER.24H PO SCH (08:47)
[2016-11-23] MEDS: Insulin LISPRO 300 UNITS/3 ML VIAL SQ SCH ×4 (08:47→22:03)
[2016-11-23] MEDS: NORVASC PO SCH (08:55)
[2016-11-23] MEDS: Insulin DETEMIR 100 UNIT/ML X5UNITS SQ SCH ×2 (08:59→22:02)
[2016-11-23] MEDS: clonazePAM 1 MG TABLET PO SCH ×3 (08:59→19:51)
[2016-11-23] MEDS: Bumetanide 1 MG TABLET PO SCH ×2 (08:59→19:51)
[2016-11-23] MEDS: Fenofibrate 54 MG TABLET PO SCH (08:59)
[2016-11-23] MEDS: Gabapentin 400 MG CAPSULE PO SCH ×3 (08:59→19:50)
[2016-11-23] MEDS: Nystatin POWDER 30 GM BOTTLE TP SCH ×2 (08:59→22:05)
[2016-11-23] MEDS: traMADol 50 MG TABLET PO SCH ×2 (09:00→19:51)
[2016-11-23] MEDS: Baclofen 10 MG TABLET PO SCH ×3 (09:00→19:50)
[2016-11-23] MEDS: Budesonide/Formoterol 160/4.5 MDI IH SCH ×2 (10:05→22:16)
[2016-11-23] MEDS: Tiotropium 18 MCG inhalation IH SCH (10:06)
[2016-11-23] MEDS ORDERED: Regadenoson 0.4 MG/5 ML SYRINGE IVP ONE (10:45)
[2016-11-23] MEDS: metOLazone 5 MG TABLET PO SCH (13:07)
[2016-11-23] MEDS: Ondansetron ODT 4 MG TAB.RAPDIS PO PRN (15:45)
--- NOTE | 2016-11-23 18:14 | Internal Med Progress Note ---
Date of Encounter: 11/23/16 Time of Encounter: 09:10 - Assessment and plan (1) Chest pain Current Visit: Yes Status: Acute Assessment and plan: Patient reports chest pain and nausea for 1 week. She rates it 7 out of 10, intermittent, worse with inspiration and exertion. She states the pain is midsternal with radiation to right upper chest, right neck, right scapula. Patient is having a 2 day stress test, will be completed tomorrow. Pain is not reproducible to palpation however pain in right scapula is re-created when patient lifts her R arm above her head. Patient lungs are clear and she is in no distress. Chest x-ray showed no evidence for acute cardiopulmonary process. Rug Cleaner labs Monitor patient Complete 2-D stress test tomorrow. Qualifiers: Chest pain type: other chest pain Qualified Code(s): R07.89 - Other chest pain; R07.8 - Other chest pain (2) UTI (urinary tract infection) Current Visit: No Status: Ruled-out Assessment and plan: Patient states she has had have 2 full catheters in the last week and a half due to retention. Repeat Urine is negative. As long as patient does not have initiated this we will refer patient to urology on an outpatient basis. Qualifiers: Urinary tract infection type: acute cystitis Hematuria presence: without hematuria Qualified Code(s): N30.00 - Acute cystitis without hematuria (3) Hyperlipidemia Current Visit: Yes Status: Chronic Qualifiers: Hyperlipidemia type: unspecified Qualified Code(s): E78.5 - Hyperlipidemia , unspecified (4) GERD (gastroesophageal reflux disease) Current Visit: Yes Status: Chronic Assessment and plan: Patient denies any reflux symptoms today however she was symptomatic yesterday. Abdomen pelvis CT was ordered yesterday shows moderate stool in the colon, without bowel obstruction. It also shows a mildly distended bladder, with no hydronephrosis. Again, we will continue to monitor her urinary retention. Patient denies change in appetite. Omeprazole 20 mg by mouth twice a day is continued here. We will continue to monitor for symptoms. Qualifiers: Esophagitis presence: esophagitis presence not specified Qualified Code(s) : K21.9 - Gastro-esophageal reflux disease without esophagitis (5) Sleep apnea Current Visit: Yes Status: Chronic Assessment and plan: Patient denies CPAP use at home. Patient is wearing O2 without distress. Continue oxygen by nasal cannula. Monitor sats with vital signs. Qualifiers: Sleep apnea type: unspecified type Qualified Code(s): G47.30 - Sleep apnea , unspecified (6) Hypothyroidism Current Visit: Yes Status: Chronic Assessment and plan: Chronic. Labs within normal limits in August. Qualifiers: Hypothyroidism type: acquired Qualified Code(s): E03.9 - Hypothyroidism, unspecified (7) Anxiety and depression Current Visit: Yes Status: Chronic Assessment and plan: Chronic. Continue home medications. (8) Tobacco use disorder Current Visit: Yes Status: Chronic Assessment and plan: Patient states that she is not ready to quit smoking. Will discuss again tomorrow prior to discharge. Chronic. (9) Chronic respiratory failure with hypoxia Current Visit: Yes Status: Chronic Assessment and plan: Patient wears oxygen [id number] home. She is wearing oxygen via nasal cannula during exam. She does not at this time require oxygen to maintain her saturations. She is 94% on room air. (10) Polypharmacy Current Visit: Yes Status: Chronic Assessment and plan: Chronic. (11) CHF (congestive heart failure) Current Visit: Yes Status: Chronic Assessment and plan: Patient has mild, maybe +1 nonpitting edema bilateral lower extremities. Patient has been nothing by mouth and not been taking her medication, Bumex. We will continue to monitor patient. Her lungs are clear currently. Chest x- ray on November 21 showed no evidence for acute cardiopulmonary process lungs are clear. Rug Cleaner labs O2 as needed Motor patient Qualifiers: Congestive heart failure type: diastolic Congestive heart failure chronicity: chronic Qualified Code(s): I50.32 - Chronic diastolic (congestive ) heart failure (12) Non-compliance Current Visit: Yes Status: Chronic Assessment and plan: Chronic. (13) Morbid obesity with BMI of 40.0-44.9, adult Current Visit: Yes Status: Chronic Assessment and plan: Chronic. Lifestyle changes. (14) Venous stasis dermatitis of both lower extremities Current Visit: Yes Status: Chronic Assessment and plan: Patient's legs are darkly discolored. She does have +1 nonpitting edema bilateral lower extremities. We will continue to monitor. Upon exam today she did have +2 pedal pulses bilaterally. Both feet are warm. (15) DVT prophylaxis Current Visit: Yes Status: Acute Assessment and plan: Subcutaneous Lovenox. - Time Spent With Patient less than 15 minutes - Subjective Interval history: Patient was seen this morning, sitting up in bed alert and oriented. She reports midsternal chest pressure/pain with radiation to her right chest, right neck, and through to her right scapula. She rates as 7 out of 10, intermittent , and worse with inspiration and exertion. Had patient lift her right arm over her head she stated this increased her pain to her right scapula. She has had nausea for a week. Pain is not reproducible. - Constitutional Vitals: Temp Pulse Resp BP Pulse Ox 97.5 F L 70 16 127/72 90 L 11/23/16 15:30 11/23/16 15:30 11/23/16 16:22 11/23/16 15:30 11/23/16 16:22 General appearance: Present: cooperative, A&O X 3, morbidly obese, pleasant, no acute distress, answers questions appropriately - Head Head exam: Present: normal inspection - Eye Eye exam: Present: normal appearance, conjuntiva pink - ENT ENT exam: Present: mucous membranes moist, normal exam - Neck Neck exam general surgery: Present: normal inspection. Absent: lymphadenopathy , tenderness - Respiratory Respiratory exam: Present: CTAB. Absent: chest wall tenderness, decreased breath sounds, respiratory distress, rhonchi, stridor, wheezes, tachypnea - Cardiovascular Cardiovascular exam: Present: RRR, +S1, +S2. Absent: bradycardia, diastolic murmur, systolic murmur, tachycardia - Expanded Cardiovascular Exam Peripheral pulses: 2+: Dorsalis Pedis (L) PM, Dorsalis Pedis (R) PM - GI/Abdominal GI/Abdominal exam: Present: distended, normal bowel sounds, soft. Absent: hepatomegaly, tenderness - Extremities Exam Extremities exam: Present: full ROM, normal capillary refill, normal inspection , warm, radial pulses palpable and symetrical. Absent: cyanotic, joint swelling , mottling, pedal edema, tenderness - Neurological Exam Neurological exam: Present: alert, oriented X3. Absent: reflexes normal, no focal deficits, strengths equal and symetr throughout, facial droop, speech deficit Internal Medicine: Result - Labs CBC & Chem 7: 11/23/16 03:28 11/23/16 03:28 Labs: Short CBC 11/23/16 Range/Units 03:28 WBC 14.0 H (4.3-11.1) K/mcL Hgb 12.3 (11.5-15.4) g/dL Hct 40.7 (35.3-44.9) % Plt Count 286 (140-400) K/mcL Neutrophils # 11.4 H (1.6-8.9) K/mcL BMP 11/23/16 03:28 Sodium 138 Potassium 3.6 Chloride 96 L Carbon Dioxide 28 BUN 34 H Creatinine 1.04 Glucose 248 H Calcium 9.5 - ABG Interpretation ABG results: PT/INR, D-dimer PT 10.1 Seconds (9.4-12.1) 11/21/16 07:55 Consult Discharge Plan - Plan Referrals: Corey Waddell DO [Primary Care Provider] -
[2016-11-23] MEDS: ARIPiprazole 10 MG TABLET PO SCH (19:51)
[2016-11-23] MEDS ORDERED: traMADol 50 MG TABLET PO ONE (21:34)
[2016-11-24] MEDS: MethylPREDNISolone 40 MG/ML VIAL IVP SCH ×2 (00:21→08:58)
[2016-11-24] MEDS: *HR* OxyCODONE/APAP 5/325 TABLET PO PRN ×2 (02:07→11:11)
[2016-11-24] MEDS: Ipratropium/Albuterol Neb 3 ML IH SCH ×2 (04:15→10:08)
[2016-11-24 05:01] LABS: Basophils % 0.2 %; Eosinophils % 0.1 %; Hematocrit 42.3 % (35.3-44.9); Hemoglobin 13.2 g/dL (11.5-15.4); Immature Granulocytes % 1.7 % (0-4); Lymphocytes # 1.7 K/mcL (0.6-4.6); Lymphocytes % 12.2 %; Mean Corpuscular HGB Conc 31.2 g/dL (31.6-35.5); Mean Corpuscular Hemoglobin 25.7 pg (28.0-33.3); Mean Corpuscular Volume 82.3 fL (83.0-100.0); Mean Platelet Volume 11.9 fL (9.4-12.4); Monocytes # 0.7 K/mcL (0.0-1.3); Monocytes % 4.6 %; Neutrophils # 11.6 K/mcL (1.6-8.9); Nucleated Red Blood Cells 0.1 /100 WBC (0); Platelet Count 269 K/mcL (140-400); Red Blood Count 5.14 M/mcL (3.82-4.97); Red Cell Distribution Width 15.1 % (11.5-14.5); Segmented Neutrophils % 81.2 %
[2016-11-24 05:14] LABS: BUN/Creatinine Ratio 34 (6-26); Blood Urea Nitrogen 37 mg/dL (7-20); Carbon Dioxide 34 mEq/L (19-29); Chloride 93 mEq/L (98-109); Glucose 288 mg/dL (70-99); Osmolality,Calculated 305 (280-300); Potassium 3.2 mEq/L (3.5-4.5); Sodium 138 mEq/L (136-145); eGFR For African Americans > 60 (> 60); eGFR For Non-African Americans 51 (> 60)
[2016-11-24] MEDS: *HR* Enoxaparin 40 MG/0.4 ML SYRINGE SQ SCH (06:12)
[2016-11-24] MEDS: Insulin LISPRO 300 UNITS/3 ML VIAL SQ SCH ×2 (08:48→12:01)
[2016-11-24] MEDS: Bumetanide 1 MG TABLET PO SCH (08:51)
[2016-11-24] MEDS: Baclofen 10 MG TABLET PO SCH ×2 (08:51→14:21)
[2016-11-24] MEDS: clonazePAM 1 MG TABLET PO SCH ×2 (08:52→14:21)
[2016-11-24] MEDS: Isosorbide MONOnitrate (24 HR) 30 MG TAB.ER.24H PO SCH (08:52)
[2016-11-24] MEDS: Fenofibrate 54 MG TABLET PO SCH (08:52)
[2016-11-24] MEDS: Gabapentin 400 MG CAPSULE PO SCH ×2 (08:52→14:21)
[2016-11-24] MEDS: NORVASC PO SCH (08:54)
[2016-11-24] MEDS ORDERED: traMADol 50 MG TABLET PO SCH (09:00)
[2016-11-24] MEDS: Insulin DETEMIR 100 UNIT/ML X5UNITS SQ SCH (09:22)
[2016-11-24] MEDS: Nystatin POWDER 30 GM BOTTLE TP SCH (09:23)
[2016-11-24] MEDS: 0.9 % Sodium Chloride 1,000 ML IVC SCH (09:24)
--- NOTE | 2016-11-24 10:02 | Nuclear Medicine Stress Report ---
Regadenoson Nuclear 2 day Name: Claire Lynch Date of Study: 11/23/2016 Date: 1955 Ht: 60.0 in Medical Record#: [id number] Age: 61 Wt: 238.0 lb Gender: Female Order #: [id number] Location: [facility] Room: [facility] Supervising Provider: Andrea Schrader CNP Reading Physician: Corey Kuhn MD, [facility] Ordering Physician: Keyanna Irizarry CNP Primary Care Physician: Corey Waddell DO Stress Technologist: Larissa Bright, HOISTING ENGINEER [employer],[facility] Construction Controller: Cinda Basurto Indications: Coronary Artery Disease, Chest Pain, Shortness of breath Impression: No significant ECG changes with regadenoson. Gated LVEF > 70%. Perfusion imaging was negative for ischemia or infarct. History: Hypertension Diabetes Hypercholesteremia Prior PCI Stress Test Summary: Stress Test Type: Pharmacologic Regadenoson 0.4mg/5ml given IV Baseline Information: Initial Heart Rate: 71 Blood Pressure: 104/58 Stress Information: Test Terminated Due to (primary): As per protocol Maximum Blood Pressure: 108/50 Maximum Heart Rate: 91 Percent Maximum Heart Rate Achieved: 57 Double Product: [id number] Symptoms: Chest pain Nuclear Summary: SPECT myocardial perfusion imaging using Tc99m Sestamibi given intravenously was performed at rest and following cardiac stress testing. The resting images were obtained following initial dose of 31 mCi. Following stress an additional dose of 34.8 mCi was given at peak exercise or 30 seconds post regadenoson infusion. Findings: Stress Note * Resting ECG demonstrated sinus rhythm, poor r-wave progression. * No baseline arrhythmias were noted. * Patient reported moderate chest pain prior to the test. No change in chest pain with regadenoson. * No arrhythmias were noted during stress. * No significant ECG changes with regadenoson. Hemodynamic responses * Normal hemodynamic responses to pharmacologic stress. Study Quality * Study quality is average. Gated EF > 70% * Gated LVEF > 70%. Left Ventricle * The left ventricle is not dilated. * Normal Segmental Perfusion in rest. * Normal segmental perfusion in stress. TID * No evidence of transient ischemic dilatation. Updated by Corey Kuhn MD, [facility] on 11/24/2016 9:53:18 AM electronically signed on 11/24/2016 9:58:08 AM with status of Final
[2016-11-24] MEDS: Budesonide/Formoterol 160/4.5 MDI IH SCH (10:10)
[2016-11-24] MEDS: Tiotropium 18 MCG inhalation IH SCH (10:10)
--- NOTE | 2016-11-24 14:07 | Discharge Summary ---
Date of Encounter: 11/24/16 (5598) Time of Encounter: 12:15 - Discharge Diagnosis (1) Chest pain Priority: Primary Status: Acute Comments: Pt was admitted for midsternal chest pain with radiation to right upper chest, right neck, and right scapula for 1 week. Today completed due to of her stress test. Right upper chest pain and right scapular pain are both re-created again with arm movement. Patient's lungs are clear. She is in no distress. Her chest x-ray showed no evidence for acute cardiopulmonary process. Patient has been able to ambulate around her room without distress. Stress test showed gated LVEF greater than 70%, and negative for ischemia or infarct. Troponins were negative 3. I believe that her pain is musculoskeletal in nature, and she and I discussed the use of anti-inflammatories at home after discharge. She is in agreement. Qualifiers: Chest pain type: other chest pain Qualified Code(s): R07.89 - Other chest pain; R07.8 - Other chest pain (2) UTI (urinary tract infection) Priority: Secondary Status: Ruled-out Comments: Resolved. Patient had 2 urines that were both negative. The one culture showed mixed colette and was unable to be interpreted. Patient reported recent history of urinary retention and Driscoll catheter use. Patient states that it was caused by a medication that she was taking which she has since stopped taking. Patient denies urinary symptoms, no CVA tenderness, denies flank pain, dysuria, urgency, increased frequency. Qualifiers: Urinary tract infection type: acute cystitis Hematuria presence: without hematuria Qualified Code(s): N30.00 - Acute cystitis without hematuria (3) Hyperlipidemia Priority: Secondary Status: Chronic Comments: Chronic. Continue home medications. Qualifiers: Hyperlipidemia type: unspecified Qualified Code(s): E78.5 - Hyperlipidemia , unspecified (4) GERD (gastroesophageal reflux disease) Priority: Secondary Status: Chronic Comments: Patient denied any GERD symptoms today. Her CT showed moderate stool in the colon and she reports that she has not had a bowel movement for 3 days. We will be giving patient a dose of MiraLAX and Colace prior to discharge. Patient denied need for prescription for these. She states that these normally work for her. Qualifiers: Esophagitis presence: esophagitis presence not specified Qualified Code(s) : K21.9 - Gastro-esophageal reflux disease without esophagitis (5) Sleep apnea Priority: Secondary Status: Chronic Comments: I talked to patient discussed the importance of trying to use her CPAP. She verbalized understanding and agreement. Exam patient was up walking around in room prior to my arrival was not wearing oxygen, and appeared to be in no distress. Qualifiers: Sleep apnea type: unspecified type Qualified Code(s): G47.30 - Sleep apnea , unspecified (6) Hypothyroidism Priority: Secondary Status: Chronic Comments: Chronic. Continue home medications. Labs are within normal limits 2 months ago. Qualifiers: Hypothyroidism type: acquired Qualified Code(s): E03.9 - Hypothyroidism, unspecified (7) Anxiety and depression Priority: Secondary Status: Chronic Comments: Chronic. Well controlled during visit continue home medications. (8) Tobacco use disorder Priority: Secondary Status: Chronic Comments: Chronic. Discussed cessation. Will give materials on discharge. (9) Chronic respiratory failure with hypoxia Priority: Secondary Status: Chronic Comments: During admission patient has had to use oxygen to maintain oxygen saturation. She is currently on room air 94%. Continue wearing oxygen at home around-the- clock. (10) Polypharmacy Priority: Secondary Status: Chronic Comments: Chronic. (11) CHF (congestive heart failure) Priority: Secondary Status: Chronic Comments: Chronic. BNP was 42 on arrival. Patient has +1 nonpitting edema in the bilateral lower extremities, which she said is normal for her. She has venous stasis to bilateral lower extremities. Her lungs are clear not diminished. Patient denies shortness of breath or cough. Qualifiers: Congestive heart failure type: diastolic Congestive heart failure chronicity: chronic Qualified Code(s): I50.32 - Chronic diastolic (congestive ) heart failure (12) Non-compliance Priority: Secondary Status: Chronic Comments: Chronic (13) Morbid obesity with BMI of 40.0-44.9, adult Priority: Secondary Status: Chronic Comments: Chronic. Lifestyle changes. (14) Venous stasis dermatitis of both lower extremities Priority: Secondary Status: Chronic Comments: Chronic. Patient has +1 to +2 pedal pulses bilaterally. Bilateral lower extremities are discolored, patient states this is normal. (15) DVT prophylaxis Priority: Secondary Status: Acute Comments: Subcutaneous Lovenox. - Discharge Medications Prescriptions: Docusate [Colace] 100 mg PO DAILY #30 capsule Polyethylene Glycol 3350 [MiraLAX Powder Bulk 17.9 Oz] 1 scoop PO DAILY #510 gm Home Medications: Budesonide/Formoterol 160/4.5 [Symbicort] 2 puff IH BIDR 04/21/15 [History] Gabapentin [Neurontin] 800 mg PO TID 04/21/15 [History] Levothyroxine [Synthroid] 100 mcg PO QAM 04/21/15 [History] Metformin [Glucophage] 1,000 mg PO BID 04/21/15 [History] Tiotropium [Spiriva] 18 mcg IH QAM 04/21/15 [History] Amlodipine Besylate 2.5 mg PO DAILY 12/27/15 [History] Atorvastatin Calcium [Lipitor] 40 mg PO DAILY 02/04/16 [History] Buspirone HCl [Buspar] 15 mg PO TID 02/04/16 [History] Montelukast [Singulair] 10 mg PO HS 02/04/16 [History] Isosorbide MONOnitrate (24 HR) [Imdur] 90 mg PO QAM #90 tab.er.24h 02/05/16 [Rx] Oxygen 2 l NS AD PRN 03/17/16 [History] Insulin Glargine [Lantus] 80 unit SQ QPM 03/25/16 [History] Insulin Glargine [Lantus] 90 unit SQ QAM 03/25/16 [History] Albuterol Sulfate [Albuterol Inhaler] 2 puff IH Q4HR PRN 05/01/16 [History] Citalopram Hydrobromide [Citalopram HBr] 40 mg PO DAILY 05/01/16 [History] Ipratropium/Albuterol Neb [Duoneb] 3 ml IH Q6H PRN 05/01/16 [History] Raloxifene [Evista] 60 mg PO DAILY 05/01/16 [History] TraMADol [Ultram] 50 mg PO BID 05/01/16 [History] Aripiprazole [Abilify] 10 mg PO HS tablet 05/03/16 [Rx] ClonazePAM [Klonopin] 1 mg PO TID tablet 05/03/16 [Rx] Dicyclomine HCl [Bentyl] 20 mg PO TID 06/15/16 [History] Fenofibrate Nanocrystallized [Tricor] 145 mg PO DAILY 06/15/16 [History] Promethazine [Phenergan] 25 mg PO Q12H PRN 06/15/16 [History] Clopidogrel [Plavix] 75 mg PO QAM tablet 06/18/16 [Rx] Buprenorphine [Butrans] 10 mcg TD QWEEK 06/27/16 [History] Ondansetron HCl [Zofran] 4 mg PO Q6H PRN #20 tablet 08/07/16 [Rx] Baclofen [Lioresal] 10 mg PO TID 08/24/16 [History] Metoprolol Tartrate 25 mg PO BID 08/24/16 [History] Omeprazole [PriLOSEC] 20 mg PO BID 08/24/16 [History] Bumetanide 2 mg PO BID 11/21/16 [History] Meclizine [Antivert] 25 mg PO DAILY PRN 11/21/16 [History] Metolazone [Zaroxolyn] 5 mg PO Q48H 11/21/16 [History] Nortriptyline [Pamelor] 25 mg PO HS 11/21/16 [History] Oxycodone HCl/Acetaminophen [Percocet 5-325 mg Tablet] 1 tab PO Q4H PRN [History] Potassium Chloride 40 meq PO BID 11/21/16 [History] Docusate [Colace] 100 mg PO DAILY #30 capsule 11/24/16 [Rx] Polyethylene Glycol 3350 [MiraLAX Powder Bulk 17.9 Oz] 1 scoop PO DAILY #510 gm 11/24/16 [Rx] Allergies/Adverse Reactions: Allergies No Known Allergies Allergy (Verified 11/12/16 02:17) Procedures/tests Complete & Pending: Procedures Performed prior 72 hours Category Date Time Status CT abd pelvis w iv no oral [CT] Routine Cat Scan 11/22/16 13:30 Completed NM angelique perf SPECT multi [NM] Routine Exams 11/23/16 07:49 Taken ECG 12 lead ECG [ECG] AM 0600 Y 11/22/16 06:00 Completed SP pharm nuclear stress Routine Y 11/23/16 07:49 Completed Date of admission: 11/21/16 09:49 Primary care physician: Corey Waddell, Consults: 11/23/16 11:39 Consult to Etl Architect [CONS] Routine Reason for SW Consult: Home health Discharging clinician: Maci Woodall Anticipated date of discharge: 11/24/16 - Patient Status Disposition: Home, Self-Care Overall status at discharge: patient is progressing back to baseline - Discharge Instructions Follow Up With: Corey Waddell, [Primary Care Provider] - Additional Instructions: Please take the Miralax and colace as needed for constipation. Resume your home medications. Follow up with your primary care provider within the next week. Please return to the ED for any other problems or concerns, or for any new, concerning symptoms. Hospital course: Ms. Lynch is a 61 year old female with a history of venous stasis dermatitis bilateral lower extremities, moderate obesity, noncompliance, CHF, polypharmacy , chronic respiratory failure with hypoxia, tobacco abuse, anxiety and depression, hypothyroidism, sleep apnea, GERD, and hyperlipidemia. Patient was admitted on the with complaint of mid sternal chest pain that radiated to the right upper chest, right neck, and in the right scapula. She also reports nausea with this pressure. Patient had a 2 day stress test was completed today. Pain to right upper chest and right scapula is reproducible with movement of right arm, not with palpation or deep inspiration. Her lungs are clear, her chest x-ray showed no evidence of acute cardiopulmonary process. Her stress test showed gated LVEF greater than 70%, negative for ischemia or infarct. Discussed with patient the distinct possibility this is musculoskeletal chest pain and that she will need to take anti-inflammatory medications when she is at home. Patient reports no bowel movement for [address] showed moderate stool within the colon without obstruction. She will be given a dose of MiraLAX and Colace prior to discharge, as well as prescriptions for both for home. He also reports recent urinary retention and need for Driscoll catheter, which she states was due to a medication that she was taking medicines but stopped. She denies any urinary symptoms. She been treated for urinary tract infection on arrival,however both urines were negative , and the culture was mixed colette and unable to be determined. CT shows no hydronephrosis on the right or the left. We will do a postvoid bladder scan prior to discharge to make sure there is no retention. I also discussed with patient the need for her to use her CPAP machine at night and oxygen when needed. She states that she will try once she gets home. Patient is stable for discharge and will continue her normal home medications. - Time Spent with Patient Total time spent providing and/or coordinating discharge services: Less than 30 minutes - Constitutional Vitals: Temp Pulse Resp BP Pulse Ox 97.9 F 69 20 133/81 94 L 11/24/16 11:06 11/24/16 11:06 11/24/16 11:06 11/24/16 11:06 11/24/16 11:06 General appearance: Present: cooperative, A&O X 3, morbidly obese, pleasant, no acute distress, answers questions appropriately - Head Head exam: Present: normal inspection - Eye Eye exam: Present: normal appearance, conjuntiva pink - ENT ENT exam: Present: mucous membranes moist, normal exam - Neck Neck exam general surgery: Present: normal inspection. Absent: lymphadenopathy , tenderness - Respiratory Respiratory exam: Present: CTAB. Absent: decreased breath sounds, rales, respiratory distress, rhonchi, stridor, wheezes, tachypnea - Cardiovascular Cardiovascular exam: Present: RRR, +S1, +S2. Absent: diastolic murmur, systolic murmur - Expanded Cardiovascular Exam Peripheral pulses: 2+: Dorsalis Pedis (L) PM, Dorsalis Pedis (R) PM - GI/Abdominal GI/Abdominal exam: Present: distended, normal bowel sounds, soft. Absent: hepatomegaly, tenderness - Extremities Exam Extremities exam: Present: normal capillary refill, normal inspection, pedal edema, warm, radial pulses palpable and symetrical. Absent: tenderness - Neurological Exam Neurological exam: Present: alert, oriented X3, no focal deficits, strengths equal and symetr throughout. Absent: pronater drift, facial droop, speech deficit
[2016-11-24 15:14] VITALS: BP 139/80
== END 2016-11-24 17:25 | disposition home or self-care (01) ==
LOC: 3BNU 07:25 → EMEROO 07:25 → 3BNU 10:22
PROVIDERS: ADMIT Nurse Practitioner Family; ATTEND Registered Nurse

== ENCOUNTER 2016-12-05 12:34 | Observation (INO) ==
--- NOTE | 2016-12-05 12:42 | Emergency Department Note ---
Disposition Clinical Impression: UTI (urinary tract infection), Left sided numbness, Hypokalemia, Hypomagnesemia , Hyperglycemia Disposition: Admitted As Inpatient Condition: Fair General Adult HPI - General Chief complaint: ED Headache Stated complaint: Headache c vision changesss Time Seen by Provider: 12/05/16 12:38 Source: patient, family Limitations: no limitations - History of Present Illness Pain Scale: 9 - Related Data Home Medications Medication Instructions Recorded Confirmed Budesonide/Formoterol 160/4.5 2 puff IH BIDR 04/21/15 12/05/16 [Symbicort] Gabapentin [Neurontin] 800 mg PO TID 04/21/15 12/05/16 Levothyroxine [Synthroid] 100 mcg PO QAM 04/21/15 12/05/16 Metformin [Glucophage] 1,000 mg PO BID 04/21/15 12/05/16 Tiotropium [Spiriva] 18 mcg IH QAM 04/21/15 12/05/16 Amlodipine Besylate 2.5 mg PO DAILY 12/27/15 12/05/16 Atorvastatin Calcium [Lipitor] 40 mg PO DAILY 02/04/16 12/05/16 Buspirone HCl [Buspar] 15 mg PO TID 02/04/16 12/05/16 Montelukast [Singulair] 10 mg PO HS 02/04/16 12/05/16 Oxygen 2 l NS AD PRN 03/17/16 12/05/16 Insulin Glargine [Lantus] 80 unit SQ QPM 03/25/16 12/05/16 Insulin Glargine [Lantus] 90 unit SQ QAM 03/25/16 12/05/16 Albuterol Sulfate [Albuterol 2 puff IH Q4HR PRN 05/01/16 12/05/16 Inhaler] Citalopram Hydrobromide 40 mg PO DAILY 05/01/16 12/05/16 [Citalopram HBr] Ipratropium/Albuterol Neb [Duoneb] 3 ml IH Q6H PRN 05/01/16 12/05/16 Raloxifene [Evista] 60 mg PO DAILY 05/01/16 12/05/16 TraMADol [Ultram] 50 mg PO BID 05/01/16 12/05/16 Dicyclomine HCl [Bentyl] 20 mg PO TID 06/15/16 12/05/16 Fenofibrate Nanocrystallized 145 mg PO DAILY 06/15/16 12/05/16 [Tricor] Promethazine [Phenergan] 25 mg PO Q12H PRN 06/15/16 12/05/16 Buprenorphine [Butrans] 10 mcg TD QWEEK 06/27/16 12/05/16 Baclofen [Lioresal] 10 mg PO TID 08/24/16 12/05/16 Metoprolol Tartrate 25 mg PO BID 08/24/16 12/05/16 Omeprazole [PriLOSEC] 20 mg PO BID 08/24/16 12/05/16 Bumetanide 2 mg PO BID 11/21/16 12/05/16 Meclizine [Antivert] 25 mg PO DAILY PRN 11/21/16 12/05/16 Metolazone [Zaroxolyn] 5 mg PO Q48H 11/21/16 12/05/16 Nortriptyline [Pamelor] 25 mg PO HS 11/21/16 12/05/16 Oxycodone HCl/Acetaminophen 1 tab PO Q4H PRN 11/21/16 12/05/16 [Percocet 5-325 mg Tablet] Potassium Chloride 40 meq PO BID 11/21/16 12/05/16 Previous Rx's Medication Instructions Recorded Isosorbide MONOnitrate (24 HR) 90 mg PO QAM #90 tab.er.24h 02/05/16 [Imdur] Aripiprazole [Abilify] 10 mg PO HS tablet 05/03/16 ClonazePAM [Klonopin] 1 mg PO TID tablet 05/03/16 Clopidogrel [Plavix] 75 mg PO QAM tablet 06/18/16 Ondansetron HCl [Zofran] 4 mg PO Q6H PRN #20 tablet 08/07/16 Docusate [Colace] 100 mg PO DAILY #30 capsule 11/24/16 Polyethylene Glycol 3350 [MiraLAX 1 scoop PO DAILY #510 gm 11/24/16 Powder Bulk 17.9 Oz] Allergies Allergy/AdvReac Type Severity Reaction Status Date / Time No Known Allergies Allergy Verified 11/12/16 02:17 Past Medical History - Past Medical History Medical history: Reports: arthritis, CHF, COPD, coronary artery disease, diabetes, GERD, hyperlipidemia, hypertension, osteoporosis, thyroid disease, venous stasis, other Surgical history: Reports: angioplasty/stent (Patient reports having four cardiac stents placed. Three stents were placed at [facility] in 2004 and one stent was placed at [facility] in 2007.), , cholecystectomy, hysterectomy, other Psychiatric history: Reports: anxiety, bipolar, depression, panic disorder [employer] history: Reports: bilateral tubal ligation - Social History Smoking Status: Former smoker Smokeless Tobacco Status: Yes (vapor) Alcohol use: Reports: none Drug use: Reports: none Physical Exam - General Limitations: no limitations General appearance: alert, in no apparent distress Course Vital Signs Temperature 98.1 F 12/05/16 12:36 Pulse Rate 84 12/05/16 12:36 Respiratory Rate 18 12/05/16 12:36 Blood Pressure 154/84 12/05/16 12:36 O2 Sat by Pulse Oximetry 93 12/05/16 12:36 Temperature 98.0 F 12/06/16 07:02 Pulse Rate 82 12/06/16 07:02 Respiratory Rate 17 12/06/16 07:02 Blood Pressure 122/74 12/06/16 07:02 O2 Sat by Pulse Oximetry 91 12/06/16 07:02 Oxygen Delivery Oxygen Delivery Nasal Cannula Medical Decision Making - Lab Data Result diagrams: 12/06/16 00:55 12/06/16 00:55 Lab Results 12/05/16 12/05/16 12/05/16 Range/Units 12:53 12:54 13:04 WBC 11.7 H (4.3-11.1) K/mcL RBC 4.80 (3.82-4.97) M/mcL Hgb 12.2 (11.5-15.4) g/dL Hct 40.0 (35.3-44.9) % MCV 83.3 (83.0-100.0) fL MCH 25.4 L (28.0-33.3) pg MCHC 30.5 L (31.6-35.5) g/dL RDW 15.5 H (11.5-14.5) % Plt Count 209 (140-400) K/mcL MPV 11.7 (9.4-12.4) fL Immature Gran % 1.0 (0-4) % Seg Neutrophils % 70.5 % Lymphocytes % 20.4 % Monocytes % 4.2 % Eosinophils % 3.2 % Basophils % 0.7 % Neutrophils # 8.3 (1.6-8.9) K/mcL Lymphocytes # 2.4 (0.6-4.6) K/mcL Monocytes # 0.5 (0.0-1.3) K/mcL Eosinophils # 0.4 (0.0-0.6) K/mcL Basophils # 0.1 (0.0-0.2) K/mcL PT (9.4-12.1) Seconds INR APTT (26.0-36.0) Seconds VBG pH (7.32-7.42) pH Units VBG pCO2 (41-51) mmHg VBG pO2 (25-40) mmHg VBG HCO3 (21-27) mEq/L Sodium (136-145) mEq/L Potassium (3.5-4.5) mEq/L Chloride (98-109) mEq/L Carbon Dioxide (19-29) mEq/L BUN (7-20) mg/dL Creatinine (0.57-1.11) mg/dL Est GFR ( Amer) (> 60) Est GFR (Non-Af Amer) (> 60) BUN/Creatinine Ratio (6-26) Glucose (70-99) mg/dL POC Glucose 402 H* 399 H (58-89) Calculated Osmolality (280-300) Calcium (8.6-10.8) mg/dL Magnesium (1.6-2.6) mg/dL Troponin I (0-0.03) ng/mL Beta-Hydroxybutyric Acd (0.02-0.27) mmol/L Urine Color (Yellow) Urine Clarity (Clear) Urine pH (5.0-8.0) pH Units Ur Specific [place] (1.010-1.025) Urine Protein (Neg-Trace) mg/dL Urine Glucose (UA) (Normal) mg/dL Urine Ketones (Negative) mg/dL Urine Blood (Negative) Urine Nitrite (Negative) Urine Bilirubin (Negative) Urine Urobilinogen (Normal) mg/dL Ur Leukocyte Esterase (Negative) Urine Microscopic RBC (0-3) per hpf Urine Microscopic WBC (0-3) per hpf Ur Squamous Epith Cells (None-Few) per lpf Urine Bacteria (None-Few) per hpf Hyaline Casts (None-Few) per lpf Ur Culture Indicated? (NO) 12/05/16 12/05/16 12/05/16 Range/Units 13:04 13:04 13:04 WBC (4.3-11.1) K/mcL RBC (3.82-4.97) M/mcL Hgb (11.5-15.4) g/dL Hct (35.3-44.9) % MCV (83.0-100.0) fL MCH (28.0-33.3) pg MCHC (31.6-35.5) g/dL RDW (11.5-14.5) % Plt Count (140-400) K/mcL MPV (9.4-12.4) fL Immature Gran % (0-4) % Seg Neutrophils % % Lymphocytes % % Monocytes % % Eosinophils % % Basophils % % Neutrophils # (1.6-8.9) K/mcL Lymphocytes # (0.6-4.6) K/mcL Monocytes # (0.0-1.3) K/mcL Eosinophils # (0.0-0.6) K/mcL Basophils # (0.0-0.2) K/mcL PT 10.0 (9.4-12.1) Seconds INR 0.9 APTT 27.5 (26.0-36.0) Seconds VBG pH (7.32-7.42) pH Units VBG pCO2 (41-51) mmHg VBG pO2 (25-40) mmHg VBG HCO3 (21-27) mEq/L Sodium 137 (136-145) mEq/L Potassium 3.0 L (3.5-4.5) mEq/L Chloride 91 L (98-109) mEq/L Carbon Dioxide 31 H (19-29) mEq/L BUN 44 H (7-20) mg/dL Creatinine 1.17 H (0.57-1.11) mg/dL Est GFR ( Amer) 57 L (> 60) Est GFR (Non-Af Amer) 47 L (> 60) BUN/Creatinine Ratio 38 H (6-26) Glucose 457 H (70-99) mg/dL POC Glucose (58-89) Calculated Osmolality 315 H (280-300) Calcium 9.6 (8.6-10.8) mg/dL Magnesium 1.1 L (1.6-2.6) mg/dL Troponin I 0.00 (0-0.03) ng/mL Beta-Hydroxybutyric Acd (0.02-0.27) mmol/L Urine Color (Yellow) Urine Clarity (Clear) Urine pH (5.0-8.0) pH Units Ur Specific [place] (1.010-1.025) Urine Protein (Neg-Trace) mg/dL Urine Glucose (UA) (Normal) mg/dL Urine Ketones (Negative) mg/dL Urine Blood (Negative) Urine Nitrite (Negative) Urine Bilirubin (Negative) Urine Urobilinogen (Normal) mg/dL Ur Leukocyte Esterase (Negative) Urine Microscopic RBC (0-3) per hpf Urine Microscopic WBC (0-3) per hpf Ur Squamous Epith Cells (None-Few) per lpf Urine Bacteria (None-Few) per hpf Hyaline Casts (None-Few) per lpf Ur Culture Indicated? (NO) 12/05/16 12/05/16 12/05/16 Range/Units 13:04 13:04 13:52 WBC (4.3-11.1) K/mcL RBC (3.82-4.97) M/mcL Hgb (11.5-15.4) g/dL Hct (35.3-44.9) % MCV (83.0-100.0) fL MCH (28.0-33.3) pg MCHC (31.6-35.5) g/dL RDW (11.5-14.5) % Plt Count (140-400) K/mcL MPV (9.4-12.4) fL Immature Gran % (0-4) % Seg Neutrophils % % Lymphocytes % % Monocytes % % Eosinophils % % Basophils % % Neutrophils # (1.6-8.9) K/mcL Lymphocytes # (0.6-4.6) K/mcL Monocytes # (0.0-1.3) K/mcL Eosinophils # (0.0-0.6) K/mcL Basophils # (0.0-0.2) K/mcL PT (9.4-12.1) Seconds INR APTT (26.0-36.0) Seconds VBG pH 7.42 (7.32-7.42) pH Units VBG pCO2 53 H (41-51) mmHg VBG pO2 56 H (25-40) mmHg VBG HCO3 34.4 H (21-27) mEq/L Sodium (136-145) mEq/L Potassium (3.5-4.5) mEq/L Chloride (98-109) mEq/L Carbon Dioxide (19-29) mEq/L BUN (7-20) mg/dL Creatinine (0.57-1.11) mg/dL Est GFR ( Amer) (> 60) Est GFR (Non-Af Amer) (> 60) BUN/Creatinine Ratio (6-26) Glucose (70-99) mg/dL POC Glucose (58-89) Calculated Osmolality (280-300) Calcium (8.6-10.8) mg/dL Magnesium (1.6-2.6) mg/dL Troponin I (0-0.03) ng/mL Beta-Hydroxybutyric Acd 0.32 H (0.02-0.27) mmol/L Urine Color Yellow (Yellow) Urine Clarity Cloudy A (Clear) Urine pH 6.5 (5.0-8.0) pH Units Ur Specific [place] 1.015 (1.010-1.025) Urine Protein Negative (Neg-Trace) mg/dL Urine Glucose (UA) 500 H (Normal) mg/dL Urine Ketones Negative (Negative) mg/dL Urine Blood Negative (Negative) Urine Nitrite Positive A (Negative) Urine Bilirubin Negative (Negative) Urine Urobilinogen Normal (Normal) mg/dL Ur Leukocyte Esterase Moderate H (Negative) Urine Microscopic RBC 5-15 H (0-3) per hpf Urine Microscopic WBC 30-50 H (0-3) per hpf Ur Squamous Epith Cells Moderate H (None-Few) per lpf Urine Bacteria Many H (None-Few) per hpf Hyaline Casts None Seen (None-Few) per lpf Ur Culture Indicated? YES A (NO) 12/05/16 Range/Units 14:43 WBC (4.3-11.1) K/mcL RBC (3.82-4.97) M/mcL Hgb (11.5-15.4) g/dL Hct (35.3-44.9) % MCV (83.0-100.0) fL MCH (28.0-33.3) pg MCHC (31.6-35.5) g/dL RDW (11.5-14.5) % Plt Count (140-400) K/mcL MPV (9.4-12.4) fL Immature Gran % (0-4) % Seg Neutrophils % % Lymphocytes % % Monocytes % % Eosinophils % % Basophils % % Neutrophils # (1.6-8.9) K/mcL Lymphocytes # (0.6-4.6) K/mcL Monocytes # (0.0-1.3) K/mcL Eosinophils # (0.0-0.6) K/mcL Basophils # (0.0-0.2) K/mcL PT (9.4-12.1) Seconds INR APTT (26.0-36.0) Seconds VBG pH (7.32-7.42) pH Units VBG pCO2 (41-51) mmHg VBG pO2 (25-40) mmHg VBG HCO3 (21-27) mEq/L Sodium (136-145) mEq/L Potassium (3.5-4.5) mEq/L Chloride (98-109) mEq/L Carbon Dioxide (19-29) mEq/L BUN (7-20) mg/dL Creatinine (0.57-1.11) mg/dL Est GFR ( Amer) (> 60) Est GFR (Non-Af Amer) (> 60) BUN/Creatinine Ratio (6-26) Glucose (70-99) mg/dL POC Glucose 313 H (58-89) Calculated Osmolality (280-300) Calcium (8.6-10.8) mg/dL Magnesium (1.6-2.6) mg/dL Troponin I (0-0.03) ng/mL Beta-Hydroxybutyric Acd (0.02-0.27) mmol/L Urine Color (Yellow) Urine Clarity (Clear) Urine pH (5.0-8.0) pH Units Ur Specific [place] (1.010-1.025) Urine Protein (Neg-Trace) mg/dL Urine Glucose (UA) (Normal) mg/dL Urine Ketones (Negative) mg/dL Urine Blood (Negative) Urine Nitrite (Negative) Urine Bilirubin (Negative) Urine Urobilinogen (Normal) mg/dL Ur Leukocyte Esterase (Negative) Urine Microscopic RBC (0-3) per hpf Urine Microscopic WBC (0-3) per hpf Ur Squamous Epith Cells (None-Few) per lpf Urine Bacteria (None-Few) per hpf Hyaline Casts (None-Few) per lpf Ur Culture Indicated? (NO) Attestation Statement - Attestation Attestation: I examined this patient and my medical decision-making was reviewed with the STRAINER CLEANER/PA/Advanced Practice Nurse/Resident Physician. I agree with the documented findings, disposition and treatment plan as described except to the extent set forth below. [id number] time provided Patient complains of a left-sided headache and left upper and left lower extremity numbness since this morning. She presents to the treatment area in a wheelchair. Appears in no acute distress. Triage vitals reviewed by me. Patient seen and evaluated in conjunction with the resident physician Dr. Valdes
[2016-12-05] MEDS ORDERED: 0.9 % Sodium Chloride 1,000 ML IVC ONE (12:46)
[2016-12-05] MEDS ORDERED: Ondansetron 4 MG/2 ML VIAL IVP ONE ×2 (12:46→14:57)
--- NOTE | 2016-12-05 13:03 | Emergency Department Note ---
Disposition Clinical Impression: Left sided numbness, Hypokalemia, Hypomagnesemia, Hyperglycemia UTI (urinary tract infection) Qualifiers: Urinary tract infection type: site unspecified Hematuria presence: without hematuria Qualified Code(s): N39.0 - Urinary tract infection, site not specified Disposition: Admitted As Inpatient Condition: Fair Forms: ED Satisfaction Letter Time of Disposition: 15:04 General Adult HPI - General Chief complaint: ED Headache Stated complaint: Headache c vision changesss Time Seen by Provider: 12/05/16 12:38 Source: patient, family Limitations: no limitations Nursing Notes Reviewed: Yes Vital Signs Reviewed: Yes - History of Present Illness HPI Narrative: 61-year-old female with multiple complaints, she states that she has had blurry vision, also heat onset of left-sided weakness. Patient's last known well was essentially evening when she went to bed. She states that she has numbness in her left face and left arm and left leg. She denies a history of CVA, does has a history of CAD and diabetes, status post stents 3. Patient states that yesterday she went to bed feeling somewhat shaky, nauseated she woke up please see deficits, she states that they have improved somewhat, but she still feels weak on the left side. She is able to ambulate still without a walker or cane. Patient reports intermittent chest pain for the last few weeks. She denies fever chills weight loss or weight gain, diarrhea constipation hematuria hematemesis. She also complains of 8 out of 10 pain in the left side of her upper extremity and her back Onset (ago): day(s) (1) Location: face, left, upper extremity, lower extremity Pain Severity: moderate Pain Scale: 9 Quality: aching Consistency: intermittent Improves with: nothing Worsens with: nothing Associated symptoms: Reports: nausea/vomiting, weakness. Denies: malaise - Related Data Home Medications Medication Instructions Recorded Confirmed Budesonide/Formoterol 160/4.5 2 puff IH BIDR 04/21/15 11/21/16 [Symbicort] Gabapentin [Neurontin] 800 mg PO TID 04/21/15 11/21/16 Levothyroxine [Synthroid] 100 mcg PO QAM 04/21/15 11/21/16 Metformin [Glucophage] 1,000 mg PO BID 04/21/15 11/21/16 Tiotropium [Spiriva] 18 mcg IH QAM 04/21/15 11/21/16 Amlodipine Besylate 2.5 mg PO DAILY 12/27/15 11/21/16 Atorvastatin Calcium [Lipitor] 40 mg PO DAILY 02/04/16 11/21/16 Buspirone HCl [Buspar] 15 mg PO TID 02/04/16 11/21/16 Montelukast [Singulair] 10 mg PO HS 02/04/16 11/21/16 Oxygen 2 l NS AD PRN 03/17/16 11/21/16 Insulin Glargine [Lantus] 80 unit SQ QPM 03/25/16 11/21/16 Insulin Glargine [Lantus] 90 unit SQ QAM 03/25/16 11/21/16 Albuterol Sulfate [Albuterol 2 puff IH Q4HR PRN 05/01/16 11/21/16 Inhaler] Citalopram Hydrobromide 40 mg PO DAILY 05/01/16 11/21/16 [Citalopram HBr] Ipratropium/Albuterol Neb [Duoneb] 3 ml IH Q6H PRN 05/01/16 11/21/16 Raloxifene [Evista] 60 mg PO DAILY 05/01/16 11/21/16 TraMADol [Ultram] 50 mg PO BID 05/01/16 11/21/16 Dicyclomine HCl [Bentyl] 20 mg PO TID 06/15/16 11/21/16 Fenofibrate Nanocrystallized 145 mg PO DAILY 06/15/16 11/21/16 [Tricor] Promethazine [Phenergan] 25 mg PO Q12H PRN 06/15/16 11/21/16 Buprenorphine [Butrans] 10 mcg TD QWEEK 06/27/16 11/21/16 Baclofen [Lioresal] 10 mg PO TID 08/24/16 11/21/16 Metoprolol Tartrate 25 mg PO BID 08/24/16 11/21/16 Omeprazole [PriLOSEC] 20 mg PO BID 08/24/16 11/21/16 Bumetanide 2 mg PO BID 11/21/16 11/21/16 Meclizine [Antivert] 25 mg PO DAILY PRN 11/21/16 11/22/16 Metolazone [Zaroxolyn] 5 mg PO Q48H 11/21/16 11/21/16 Nortriptyline [Pamelor] 25 mg PO HS 11/21/16 11/21/16 Oxycodone HCl/Acetaminophen 1 tab PO Q4H PRN 11/21/16 11/21/16 [Percocet 5-325 mg Tablet] Potassium Chloride 40 meq PO BID 11/21/16 11/21/16 Previous Rx's Medication Instructions Recorded Isosorbide MONOnitrate (24 HR) 90 mg PO QAM #90 tab.er.24h 02/05/16 [Imdur] Aripiprazole [Abilify] 10 mg PO HS tablet 05/03/16 ClonazePAM [Klonopin] 1 mg PO TID tablet 05/03/16 Clopidogrel [Plavix] 75 mg PO QAM tablet 06/18/16 Ondansetron HCl [Zofran] 4 mg PO Q6H PRN #20 tablet 08/07/16 Docusate [Colace] 100 mg PO DAILY #30 capsule 11/24/16 Polyethylene Glycol 3350 [MiraLAX 1 scoop PO DAILY #510 gm 11/24/16 Powder Bulk 17.9 Oz] Allergies Allergy/AdvReac Type Severity Reaction Status Date / Time No Known Allergies Allergy Verified 11/12/16 02:17 All systems ED: reviewed and negative except as stated. Constitutional: Reports: as per HPI, weakness. Denies: fever, chills ENT ED: Denies: ear pain, throat pain Cardiovascular: Denies: chest pain, palpitations, dyspnea on exertion Respiratory: Denies: cough, dyspnea Gastrointestinal: Reports: as per HPI, nausea. Denies: abdominal pain Genitourinary: Denies: urgency, dysuria Musculoskeletal: Reports: back pain Integumentary: Denies: rash Neurological: Reports: as per HPI, headache, weakness, numbness Past Medical History - Past Medical History Attestation: Yes The following information was validated with the patient. Source: patient Medical history: Reports: arthritis, CHF, COPD, coronary artery disease, diabetes, GERD, hyperlipidemia, hypertension, osteoporosis, thyroid disease, venous stasis, other Surgical history: Reports: angioplasty/stent (Patient reports having four cardiac stents placed. Three stents were placed at [facility] in 2004 and one stent was placed at [facility] in 2007.), , cholecystectomy, hysterectomy, other Psychiatric history: Reports: anxiety, bipolar, depression, panic disorder [employer] history: Reports: bilateral tubal ligation - Social History Smoking Status: Former smoker Smokeless Tobacco Status: Yes (vapor) Alcohol use: Reports: none Drug use: Reports: none Physical Exam Constitutional: Obese female appears somewhat uncomfortable however in no acute distress vital signs stable elevated blood pressure Neck: normal inspection, neck is supple, trachea midline Resp: normal chest inspection, CTA bilaterally, no resp distress CV: RRR, no m/g/r GI: normal inspection, Soft, NTND, BS present Back: normal inspection, no tenderness to palpation Neuro: A&O3, 4 out of 5 muscle strength left upper and lower extremity, subjective numbness on left face left arm and left leg on testing. MSK: normal inspection, bilateral UE and LE with normal ROM Skin: No rashes, skin warm, dry, intact - General Limitations: no limitations General appearance: alert, in no apparent distress Course Course Narrative: 61-year-old female with last a while yesterday evening, currently 1:00 in afternoon, so greater than 12 hours of onset of symptoms, appear to be mild symptoms with an NIH of 2 we will get Accu-Cheks basic lab work CT of head given Plavix use, history of CAD so there is still concern for ACS as well given that she had chest pain in the last week. Will get a full workup and reevaluate the patient, not a stroke alert candidate given time of last well. - Reevaluation(s) Reevaluation #1: Patient admitted to the hospitalist, magnesium came back 1.1 given that she was hyperglycemic and was treated with 10 units of insulin potassium 3.0 were placed with IV and by mouth K, also place magnesium with potassium. Treating her UTI with Rocephin, admitted for stroke workup. Time: 15:03 Reevaluation #2: Repeat NIH 2 no change in symptoms pain meds ordered, Replacing mag and potassium (IV and Oral) Iv abx started. - Consultations Consultation #1: I spoke with Dr Flores he recs give paitent aspiring given no improvement in symptoms and no previous stroke workup will need MRI and carotid studies admit to medicine, medicine paged Time: 14:49 Vital Signs Temperature 98.1 F 12/05/16 12:36 Pulse Rate 84 12/05/16 12:36 Respiratory Rate 18 12/05/16 12:36 Blood Pressure 154/84 12/05/16 12:36 O2 Sat by Pulse Oximetry 93 12/05/16 12:36 Temperature 98.1 F 12/05/16 12:36 Pulse Rate 82 12/05/16 14:02 Respiratory Rate 16 12/05/16 14:02 Blood Pressure 130/52 12/05/16 14:02 O2 Sat by Pulse Oximetry 92 12/05/16 14:02 Oxygen Delivery Oxygen Delivery Room Air Medical Decision Making - Medical Records Medical records reviewed: Yes I reviewed the patient's medical records. - Lab Data Lab results reviewed: Yes I reviewed the patient's lab results. Result diagrams: 12/05/16 13:04 12/05/16 13:04 Lab Results 12/05/16 12/05/16 12/05/16 Range/Units 12:53 12:54 13:04 WBC 11.7 H (4.3-11.1) K/mcL RBC 4.80 (3.82-4.97) M/mcL Hgb 12.2 (11.5-15.4) g/dL Hct 40.0 (35.3-44.9) % MCV 83.3 (83.0-100.0) fL MCH 25.4 L (28.0-33.3) pg MCHC 30.5 L (31.6-35.5) g/dL RDW 15.5 H (11.5-14.5) % Plt Count 209 (140-400) K/mcL MPV 11.7 (9.4-12.4) fL Immature Gran % 1.0 (0-4) % Seg Neutrophils % 70.5 % Lymphocytes % 20.4 % Monocytes % 4.2 % Eosinophils % 3.2 % Basophils % 0.7 % Neutrophils # 8.3 (1.6-8.9) K/mcL Lymphocytes # 2.4 (0.6-4.6) K/mcL Monocytes # 0.5 (0.0-1.3) K/mcL Eosinophils # 0.4 (0.0-0.6) K/mcL Basophils # 0.1 (0.0-0.2) K/mcL PT (9.4-12.1) Seconds INR APTT (26.0-36.0) Seconds VBG pH (7.32-7.42) pH Units VBG pCO2 (41-51) mmHg VBG pO2 (25-40) mmHg VBG HCO3 (21-27) mEq/L Sodium (136-145) mEq/L Potassium (3.5-4.5) mEq/L Chloride (98-109) mEq/L Carbon Dioxide (19-29) mEq/L BUN (7-20) mg/dL Creatinine (0.57-1.11) mg/dL Est GFR ( Amer) (> 60) Est GFR (Non-Af Amer) (> 60) BUN/Creatinine Ratio (6-26) Glucose (70-99) mg/dL POC Glucose 402 H* 399 H (58-89) Calculated Osmolality (280-300) Calcium (8.6-10.8) mg/dL Magnesium (1.6-2.6) mg/dL Troponin I (0-0.03) ng/mL Beta-Hydroxybutyric Acd (0.02-0.27) mmol/L Urine Color (Yellow) Urine Clarity (Clear) Urine pH (5.0-8.0) pH Units Ur Specific [place] (1.010-1.025) Urine Protein (Neg-Trace) mg/dL Urine Glucose (UA) (Normal) mg/dL Urine Ketones (Negative) mg/dL Urine Blood (Negative) Urine Nitrite (Negative) Urine Bilirubin (Negative) Urine Urobilinogen (Normal) mg/dL Ur Leukocyte Esterase (Negative) Urine Microscopic RBC (0-3) per hpf Urine Microscopic WBC (0-3) per hpf Ur Squamous Epith Cells (None-Few) per lpf Urine Bacteria (None-Few) per hpf Hyaline Casts (None-Few) per lpf Ur Culture Indicated? (NO) 12/05/16 12/05/16 12/05/16 Range/Units 13:04 13:04 13:04 WBC (4.3-11.1) K/mcL RBC (3.82-4.97) M/mcL Hgb (11.5-15.4) g/dL Hct (35.3-44.9) % MCV (83.0-100.0) fL MCH (28.0-33.3) pg MCHC (31.6-35.5) g/dL RDW (11.5-14.5) % Plt Count (140-400) K/mcL MPV (9.4-12.4) fL Immature Gran % (0-4) % Seg Neutrophils % % Lymphocytes % % Monocytes % % Eosinophils % % Basophils % % Neutrophils # (1.6-8.9) K/mcL Lymphocytes # (0.6-4.6) K/mcL Monocytes # (0.0-1.3) K/mcL Eosinophils # (0.0-0.6) K/mcL Basophils # (0.0-0.2) K/mcL PT 10.0 (9.4-12.1) Seconds INR 0.9 APTT 27.5 (26.0-36.0) Seconds VBG pH (7.32-7.42) pH Units VBG pCO2 (41-51) mmHg VBG pO2 (25-40) mmHg VBG HCO3 (21-27) mEq/L Sodium 137 (136-145) mEq/L Potassium 3.0 L (3.5-4.5) mEq/L Chloride 91 L (98-109) mEq/L Carbon Dioxide 31 H (19-29) mEq/L BUN 44 H (7-20) mg/dL Creatinine 1.17 H (0.57-1.11) mg/dL Est GFR ( Amer) 57 L (> 60) Est GFR (Non-Af Amer) 47 L (> 60) BUN/Creatinine Ratio 38 H (6-26) Glucose 457 H (70-99) mg/dL POC Glucose (58-89) Calculated Osmolality 315 H (280-300) Calcium 9.6 (8.6-10.8) mg/dL Magnesium 1.1 L (1.6-2.6) mg/dL Troponin I 0.00 (0-0.03) ng/mL Beta-Hydroxybutyric Acd (0.02-0.27) mmol/L Urine Color (Yellow) Urine Clarity (Clear) Urine pH (5.0-8.0) pH Units Ur Specific [place] (1.010-1.025) Urine Protein (Neg-Trace) mg/dL Urine Glucose (UA) (Normal) mg/dL Urine Ketones (Negative) mg/dL Urine Blood (Negative) Urine Nitrite (Negative) Urine Bilirubin (Negative) Urine Urobilinogen (Normal) mg/dL Ur Leukocyte Esterase (Negative) Urine Microscopic RBC (0-3) per hpf Urine Microscopic WBC (0-3) per hpf Ur Squamous Epith Cells (None-Few) per lpf Urine Bacteria (None-Few) per hpf Hyaline Casts (None-Few) per lpf Ur Culture Indicated? (NO) 12/05/16 12/05/16 12/05/16 Range/Units 13:04 13:04 13:52 WBC (4.3-11.1) K/mcL RBC (3.82-4.97) M/mcL Hgb (11.5-15.4) g/dL Hct (35.3-44.9) % MCV (83.0-100.0) fL MCH (28.0-33.3) pg MCHC (31.6-35.5) g/dL RDW (11.5-14.5) % Plt Count (140-400) K/mcL MPV (9.4-12.4) fL Immature Gran % (0-4) % Seg Neutrophils % % Lymphocytes % % Monocytes % % Eosinophils % % Basophils % % Neutrophils # (1.6-8.9) K/mcL Lymphocytes # (0.6-4.6) K/mcL Monocytes # (0.0-1.3) K/mcL Eosinophils # (0.0-0.6) K/mcL Basophils # (0.0-0.2) K/mcL PT (9.4-12.1) Seconds INR APTT (26.0-36.0) Seconds VBG pH 7.42 (7.32-7.42) pH Units VBG pCO2 53 H (41-51) mmHg VBG pO2 56 H (25-40) mmHg VBG HCO3 34.4 H (21-27) mEq/L Sodium (136-145) mEq/L Potassium (3.5-4.5) mEq/L Chloride (98-109) mEq/L Carbon Dioxide (19-29) mEq/L BUN (7-20) mg/dL Creatinine (0.57-1.11) mg/dL Est GFR ( Amer) (> 60) Est GFR (Non-Af Amer) (> 60) BUN/Creatinine Ratio (6-26) Glucose (70-99) mg/dL POC Glucose (58-89) Calculated Osmolality (280-300) Calcium (8.6-10.8) mg/dL Magnesium (1.6-2.6) mg/dL Troponin I (0-0.03) ng/mL Beta-Hydroxybutyric Acd 0.32 H (0.02-0.27) mmol/L Urine Color Yellow (Yellow) Urine Clarity Cloudy A (Clear) Urine pH 6.5 (5.0-8.0) pH Units Ur Specific [place] 1.015 (1.010-1.025) Urine Protein Negative (Neg-Trace) mg/dL Urine Glucose (UA) 500 H (Normal) mg/dL Urine Ketones Negative (Negative) mg/dL Urine Blood Negative (Negative) Urine Nitrite Positive A (Negative) Urine Bilirubin Negative (Negative) Urine Urobilinogen Normal (Normal) mg/dL Ur Leukocyte Esterase Moderate H (Negative) Urine Microscopic RBC 5-15 H (0-3) per hpf Urine Microscopic WBC 30-50 H (0-3) per hpf Ur Squamous Epith Cells Moderate H (None-Few) per lpf Urine Bacteria Many H (None-Few) per hpf Hyaline Casts None Seen (None-Few) per lpf Ur Culture Indicated? YES A (NO) - Radiology Data Radiology results reviewed: Yes I reviewed the patient's radiology results. Chest X-Ray 12/05/16 12:48 IMPRESSION: No acute cardiopulmonary process. D/ / 12/05/2016 13:26:09 Naheed Fountain MD / Marilu Morrison Interpreting Provider: Naheed Fountain MD Head CT 12/05/16 12:48 IMPRESSION: Unremarkable exam. No acute intracranial hemorrhage or mass effect. D/ / Titi Valladares MD / Titi Valladares MD Interpreting Provider: Titi Valladares MD - EKG Data EKG #1 EKG attestation: Yes I reviewed and interpreted this EKG. EKG shows normal: sinus rhythm (80 bpm IN 159 QRS [address] segment elevations or depressions) Q waves: II (seen previous EKG from 09/10/2012), III Interpretation: no acute changes - Core Measures AMI Core Measures Followed: No NIH Stroke Scale - Level of Consciousness LOC: Alert - LOC Questions LOC Questions: Answers both correctly - LOC Commands LOC Commands: Performs both correctly - Best Gaze Best Gaze: Normal - Visual Visual: No visual loss - Facial Palsy Facial Palsy: Normal - Motor Arms Motor Arm-Left: No drift for 10 seconds Motor Arm-Right: No drift for 10 seconds - Motor Legs Motor Leg-Left: Drift, does NOT hit bed Motor Leg-Right: No drift for 5 seconds - Limb Ataxia Limb Ataxia: Absent of affected limb too weak to perform exam - Sensory Sensory: Mild to moderate loss, "not as sharp" - Best Language Best Language: No aphasia - Dysarthria Dysarthria: Normal - Extinction and Inattention Extinction and Inattention: Normal - NIHSS Total Score NIHSS Total Score: 2
[2016-12-05 13:12] LABS: Basophils # 0.1 K/mcL (0.0-0.2); Basophils % 0.7 %; Eosinophils # 0.4 K/mcL (0.0-0.6); Eosinophils % 3.2 %; Hemoglobin 12.2 g/dL (11.5-15.4); Lymphocytes # 2.4 K/mcL (0.6-4.6); Lymphocytes % 20.4 %; Mean Corpuscular HGB Conc 30.5 g/dL (31.6-35.5); Mean Corpuscular Hemoglobin 25.4 pg (28.0-33.3); Mean Corpuscular Volume 83.3 fL (83.0-100.0); Mean Platelet Volume 11.7 fL (9.4-12.4); Monocytes # 0.5 K/mcL (0.0-1.3); Monocytes % 4.2 %; Neutrophils # 8.3 K/mcL (1.6-8.9); Platelet Count 209 K/mcL (140-400); Red Cell Distribution Width 15.5 % (11.5-14.5); Segmented Neutrophils % 70.5 %; VBG HCO3 34.4 mEq/L (21-27); VBG PH 7.42 pH Units (7.32-7.42)
[2016-12-05] MEDS ORDERED: Insulin Human Regular 10 UNIT in 0.9 % Sodium Chloride 10 ML IV ONE (13:14)
[2016-12-05 13:18] LABS: INR 0.9
[2016-12-05] MEDS ORDERED: *HR* Morphine 2 MG/ML SYRINGE IV ONE (13:20)
[2016-12-05 13:21] LABS: Activated Partial Thrombo Time 27.5 Seconds (26.0-36.0)
[2016-12-05 13:34] LABS: Calcium 9.6 mg/dL (8.6-10.8)
[2016-12-05] MEDS ORDERED: Potassium Chloride Elixir 20 MEQ/15 ML UDC PO ONE (13:39)
[2016-12-05 14:10] LABS: Bilirubin,Urine Negative (Negative); Blood,Urine Negative (Negative); Clarity,Urine Cloudy (Clear); Color,Urine Yellow (Yellow); Glucose,Urine (UA) 500 mg/dL (Normal); Ketones,Urine Negative (Negative); Leukocyte Esterase,Urine Moderate (Negative); Nitrite,Urine Positive (Negative); PH,Urine 6.5 pH Units (5.0-8.0); Protein,Urine Negative (Neg-Trace); Specific Gravity,Urine 1.015 (1.010-1.025); Urobilinogen,Urine Normal (Normal)
[2016-12-05 14:12] LABS: Bacteria,Urine Many per hpf (None-Few); Hyaline Casts,Urine None Seen per lpf (None-Few); Squamous Epithelial Cell,Urine Moderate per lpf (None-Few); WBC,Urine 30-50 per hpf (0-3)
[2016-12-05 14:21] LABS: Magnesium 1.1 mg/dL (1.6-2.6)
[2016-12-05] MEDS ORDERED: CefTRIAXone 1,000 MG VIAL IM ONE (14:47)
[2016-12-05] MEDS ORDERED: *HR* HYDROmorphone (PF) 1 MG/ML SYRINGE IVP ONE (14:57)
[2016-12-05] MEDS ORDERED: Lidocaine -MPF 1% 2 ML VIAL ONE ×2 (15:11→15:19)
[2016-12-05] MEDS ORDERED: 0.9 % Sodium Chloride 500 ML ONE (15:30)
[2016-12-05] MEDS ORDERED: Naloxone 0.4 MG/ML INJ IVP PRN (20:33)
[2016-12-05] MEDS ORDERED: D5% in Water 1,000 ML IVC PRN (20:37)
[2016-12-05] MEDS ORDERED: Dextrose Gel 15 GM PO PRN ×2 (20:37)
[2016-12-05] MEDS ORDERED: *HR* Dextrose 50 % in Water (Syg) 50 ML SYRINGE IVP PRN (20:37)
[2016-12-05] MEDS ORDERED: 0.9 % Sodium Chloride 1,000 ML IVC SCH (20:45)
[2016-12-05] MEDS ORDERED: Insulin LISPRO 300 UNITS/3 ML VIAL SQ SCH (21:00)
[2016-12-05] MEDS ORDERED: NON-FORMULARY MEDICATION 1 EACH EACH (Insulin Glargine [Lantus] 80 UNIT) SQ SCH (21:30)
[2016-12-05] MEDS ORDERED: Albuterol 2.5 MG/3 ML NEBULIZER IH PRN (21:36)
--- NOTE | 2016-12-05 21:53 | Internal Med History&Physical ---
Date of Encounter: 12/05/16 Time of Encounter: 21:40 Assessment and Plan (1) Numbness Current visit: Yes Status: Acute 1 patient experiencing left-sided facial numbness radiating down the neck to left arm. Cranial nerves II through XII intact no facial droop noted CT of head negative for any acute intracranial abnormality. 2 we will obtain MRI 3 carotid Dopplers 4 neurology consulted 5 we will give aspirin as advised per neurology 6 frequent neuro checks 7 continue with statin and check lipid profile in a.m. (2) Headache Current visit: Yes Status: Acute 1 patient had onset of acute headache starting this a.m. located right temporal area with vision changes. As well as experiencing numbness and left-sided face. Rate 04/07 CT of head was negative 2 consulting neurology 3 we will continue with pain medications however avoiding oversedation and heavy opiate use Qualifiers: Headache type: unspecified Headache chronicity pattern: acute headache Intractability: intractable Qualified Code(s): R51 - Headache (3) Chest pain Current visit: No Status: Acute 1 patient complaining of left-sided chest pain. First set cardiac troponins are negative. Patient did have a cardiac stress test on 11/25/2016 which was negative for any ischemia. We will continue to trend troponins 2 continuous cardiac monitoring 3 nitroglycerin and oxygen as needed for chest pain Qualifiers: Chest pain type: other chest pain Qualified Code(s): R07.89 - Other chest pain; R07.8 - Other chest pain (4) CAD (coronary artery disease) Current visit: No Status: Chronic 1 we will continue with Plavix and statin beta randy 2 cardiac diet Qualifiers: Coronary Disease-Associated Artery/Lesion type: [place] artery [place] vs. transplanted heart: [place] heart Associated angina: without angina Qualified Code(s): I25.10 - Atherosclerotic heart disease of [place] coronary artery without angina pectoris (5) Insulin dependent diabetes mellitus Current visit: No Status: Chronic 1 patient's blood sugar is 400. We will continue with Accu-Cheks before meals at bedtime we will continue with basal as well as sliding scale insulin (6) COPD (chronic obstructive pulmonary disease) Current visit: No Status: Chronic 1 presently not in exacerbation. We will continue with oxygen as needed to maintain SPO2 greater than 90% 2 continue with bronchodilators Qualifiers: COPD type: unspecified COPD Qualified Code(s): J44.9 - Chronic obstructive pulmonary disease, unspecified (7) DVT prophylaxis Current visit: No Status: Acute 1 Lovenox (8) Hypothyroidism Current visit: No Status: Chronic 1 continue with Synthroid Qualifiers: Hypothyroidism type: acquired Qualified Code(s): E03.9 - Hypothyroidism, unspecified (9) Chronic diastolic CHF (congestive heart failure) Current visit: No Status: Chronic 1 patient is on Bumex as well as Zaroxolyn. Patient potassium is 3 we will hold diuretics will resume once patient back to baseline 2 monitor intake and output daily weights 3 fluid restriction 1500 mL's 4 low sodium diet (10) UTI (urinary tract infection) Current visit: No Status: Acute 1 continue with Rocephin will adjust to culture sensitivity Qualifiers: Urinary tract infection type: acute cystitis Hematuria presence: without hematuria Qualified Code(s): N30.00 - Acute cystitis without hematuria (11) Hypokalemia Current visit: Yes Status: Acute 1 patient's potassium is 3 patient given oral potassium were replaced with IV 40meq K rider. We will hold diuretics for now 2 continuous cardiac monitoring (12) Hypomagnesemia Current visit: Yes Status: Acute 1 magnesium 1.1 we will give mag rider. Recheck and replace as needed (13) Hypertension Current visit: No Status: Chronic 1 continue with home medications. Maintain systolic less than 140 Qualifiers: Hypertension type: essential hypertension Qualified Code(s): I10 - Essential (primary) hypertension Internal Medicine - H&P: HPI Chief complaint: Headache with visual changes Admitted From: Emergency Dept Plans for Post Hospital Care: Home History of present illness: Ms. Lynch is a 61 year old female past medical history arthritis congestive heart failure COPD coronary disease with stent placement diabetes GERD hyperlipidemia hypertension osteoporosis thyroid disease anxiety bipolar disorder. Patient states that she woke up this morning with a right sided temporal headache that she described as an achiness 8 out of 10 pain. She said she did not some blurring of her vision as well as experiencing left sided numbness to her face neck down to the left arm. Patient's last known well was evening when she went to bed. She denies any past history of CVA seizures or migraines. She denies any nausea vomiting lightheadedness during the episode. However she states that before she went to bed she is feeling somewhat shaky and nauseated. She also complains of intermittent pain chest pain that has been occurring over the past few weeks. She describes the pain as achiness is constant 5 out of 10 with no relieving or aggravating factors. She was seen here 2017 for chest pain and had a complete workup by cardiology cardiac stress test revealed no ischemia or infarct at that time. Patient also complains of frequent urination and burning she denies any fevers or chills shortness of breath or abdominal pain. She presented to the ER with the above complaints according to ER records patient's NIH was 2 CT of head was negative for any acute intracranial [place]. Lab work did reveal magnesium 1.1 as well as hyperglycemia 457 creatinine 1.17 potassium was 3. Patient was given 10 units of insulin oral potassium as well as IV and IV magnesium. Urinalysis did reveal leukoesterase as well as nitrates she was started on Rocephin. ER did speak with Dr. Flores neurology who recommended giving patient aspirin and follow with MRI and carotid studies he will see patient as consult. Patient has been admitted for further workup and evaluation. Presently patient is alert and oriented following simple commands. Cranial nerves II through XII are intact. She has equal strength in all 4 extremities. There is no facial droop. Patient continues to complain of headache as well as chest pain. She is requesting narcotics. Explained to patient that we will be performing frequent neuro exams and that we cannot give heavy narcotics due to masking changes and neuro status. Patient verbalized understanding present patient's hemodynamics stable. Reviewed case with who agrees with plan. Past Med Surg Social Fam HX - Past Medical History Medical history: arthritis, CHF, COPD, coronary artery disease, diabetes, GERD, hyperlipidemia, hypertension, osteoporosis, thyroid disease, venous stasis, other Psychiatric history: anxiety, bipolar, depression, panic disorder - Past Surgical History Surgical History: angioplasty/stent, , cholecystectomy, hysterectomy, other - Social History Smoking Status: Former smoker Smokeless Tobacco Status: Yes (vapor) Alcohol use: none Drug use: none - Family History Father Adopted: No Family Member Ethnicity: Non- Living Status: Hx Family Cardiac Disorders: Yes Mother Adopted: No Family Member Ethnicity: Non- Living Status: Hx Family Cardiac Disorders: No Hx Family Respiratory Disorders: No Hx Family Cancer: No Hx Family GI Disorders: No Hx Family Endocrine Disorder: Yes Hx Family Neuromuscular Disorders: No Hx Family Neurologic Disorders: No Hx Family HEENT Disorders: No Hx Family Autoimmune Disorders: No Internal Medicine - H&P: Meds Budesonide/Formoterol 160/4.5 [Symbicort] 2 puff IH BIDR 04/21/15 [History] Gabapentin [Neurontin] 800 mg PO TID 04/21/15 [History] Levothyroxine [Synthroid] 100 mcg PO QAM 04/21/15 [History] Metformin [Glucophage] 1,000 mg PO BID 04/21/15 [History] Tiotropium [Spiriva] 18 mcg IH QAM 04/21/15 [History] Amlodipine Besylate 2.5 mg PO DAILY 12/27/15 [History] Atorvastatin Calcium [Lipitor] 40 mg PO DAILY 02/04/16 [History] Buspirone HCl [Buspar] 15 mg PO TID 02/04/16 [History] Montelukast [Singulair] 10 mg PO HS 02/04/16 [History] Isosorbide MONOnitrate (24 HR) [Imdur] 90 mg PO QAM #90 tab.er.24h 02/05/16 [Rx] Oxygen 2 l NS AD PRN 03/17/16 [History] Insulin Glargine [Lantus] 80 unit SQ QPM 03/25/16 [History] Insulin Glargine [Lantus] 90 unit SQ QAM 03/25/16 [History] Albuterol Sulfate [Albuterol Inhaler] 2 puff IH Q4HR PRN 05/01/16 [History] Citalopram Hydrobromide [Citalopram HBr] 40 mg PO DAILY 05/01/16 [History] Ipratropium/Albuterol Neb [Duoneb] 3 ml IH Q6H PRN 05/01/16 [History] Raloxifene [Evista] 60 mg PO DAILY 05/01/16 [History] TraMADol [Ultram] 50 mg PO BID 05/01/16 [History] Aripiprazole [Abilify] 10 mg PO HS tablet 05/03/16 [Rx] ClonazePAM [Klonopin] 1 mg PO TID tablet 05/03/16 [Rx] Dicyclomine HCl [Bentyl] 20 mg PO TID 06/15/16 [History] Fenofibrate Nanocrystallized [Tricor] 145 mg PO DAILY 06/15/16 [History] Promethazine [Phenergan] 25 mg PO Q12H PRN 06/15/16 [History] Clopidogrel [Plavix] 75 mg PO QAM tablet 06/18/16 [Rx] Buprenorphine [Butrans] 10 mcg TD QWEEK 06/27/16 [History] Ondansetron HCl [Zofran] 4 mg PO Q6H PRN #20 tablet 08/07/16 [Rx] Baclofen [Lioresal] 10 mg PO TID 08/24/16 [History] Metoprolol Tartrate 25 mg PO BID 08/24/16 [History] Omeprazole [PriLOSEC] 20 mg PO BID 08/24/16 [History] Bumetanide 2 mg PO BID 11/21/16 [History] Meclizine [Antivert] 25 mg PO DAILY PRN 11/21/16 [History] Metolazone [Zaroxolyn] 5 mg PO Q48H 11/21/16 [History] Nortriptyline [Pamelor] 25 mg PO HS 11/21/16 [History] Oxycodone HCl/Acetaminophen [Percocet 5-325 mg Tablet] 1 tab PO Q4H PRN [History] Potassium Chloride 40 meq PO BID 11/21/16 [History] Docusate [Colace] 100 mg PO DAILY #30 capsule 11/24/16 [Rx] Polyethylene Glycol 3350 [MiraLAX Powder Bulk 17.9 Oz] 1 scoop PO DAILY #510 gm 11/24/16 [Rx] Allergies No Known Allergies Allergy (Verified 11/12/16 02:17) All Systems PM: A 10-system review of systems was performed and is negative for pertinent findings except as documented above in the HPI. - Constitutional Constitutional: weight gain - EENT Eyes: blurry vision, change in vision - Cardiovascular Cardiovascular ROS IM: chest pain, no diaphoresis, no dyspnea, no lightheadedness, no palpitations, no syncope - Respiratory Respiratory: no cough, no dyspnea, no wheezing, no excessive phlegm production - Gastrointestinal Gastrointestinal: no abdominal pain, no diarrhea, no hematemesis, no hematochezia, no melena, no nausea, no vomiting - Genitourinary Genitourinary: difficulty urinating, dysuria - Musculoskeletal Musculoskeletal ROS IM: numbness - Integumentary Integumentary IM: no rash, no unusual bruising - Neurological Neurological ROS: numbness, weakness, other visual disturbances - Psychiatric Psychiatric: anxiety, depression - Constitutional Vitals: Temp Pulse Resp BP Pulse Ox 97.9 F 76 15 105/65 94 12/05/16 18:53 12/05/16 18:53 12/05/16 18:53 12/05/16 18:53 12/05/16 18:53 General appearance: Present: A&O X 3, morbidly obese, answers questions appropriately - Head Head exam: Present: atraumatic, normocephalic - Eye Eye exam: Present: PERRL, conjuntiva pink, sclera anicteric Pupils: Present: PERRL - Neck Neck exam general surgery: Present: supple, trachea midline. Absent: lymphadenopathy - Respiratory Respiratory exam: Present: wheezes. Absent: accessory muscle use, rales, rhonchi - Cardiovascular Cardiovascular exam: Present: RRR, +S1, +S2. Absent: diastolic murmur, gallop, rubs, systolic murmur - GI/Abdominal GI/Abdominal exam: Present: normal bowel sounds, soft, no peritoneal signs. Absent: distended, tenderness - Extremities Exam Extremities exam: Present: warm, radial pulses palpable and symetrical. Absent : calf tenderness, cyanotic, pedal edema - Neurological Exam Neurological exam: Present: CN II-XII intact, oriented X3, no focal deficits, strengths equal and symetr throughout. Absent: pronater drift, facial droop, speech deficit - Expanded Neurological Exam Cranial Nerves: EOM's intact PM: Normal, nystagmus PM: Normal, tongue deviation PM: Normal Sensory exam: lower extremity light touch: Normal, lower extremity pin prick: Normal, upper extremity light touch: Normal, upper extremity pin prick: Normal Neuro motor strength exam: LUE: 5, RUE: 5, LLE: 5, RLE: 5 Coma Scale Eye Opening: Spontaneous Coma Scale Motor Response: Obeys Commands Coma Scale Verbal Response: Oriented Coma Scale Total: 15 Internal Med - H&P Results - Labs CBC & Chem 7: 12/05/16 13:04 12/05/16 13:04 - EKG Data EKG shows normal: sinus rhythm - EKG Data Prior EKG available for review: yes When compared to previous EKG: there is no significant change - Diagnostic Studies Other Images Additional comments: Chest X-Ray 12/05/16 12:48 IMPRESSION: No acute cardiopulmonary process. D/ / 12/05/2016 13:26:09 Naheed Fountain MD / Marilu Morrison Interpreting Provider: Naheed Fountain MD Head CT 12/05/16 12:48 IMPRESSION: Unremarkable exam. No acute intracranial hemorrhage or mass effect. D/ / Titi Valladares MD / Titi Valladares MD Interpreting Provider: Titi Valladares MD
[2016-12-05] MEDS: Insulin DETEMIR 100 UNIT/ML X5UNITS SQ SCH ×2 (21:57→23:14)
[2016-12-05] MEDS ORDERED: Potassium Chloride 20 MEQ, Lidocaine 1% 2 ML in D5% in Water 250 ML IVPB ONE (22:00)
[2016-12-05] MEDS ORDERED: Magnesium Sulfate 2 GM in D5% in Water 100 ML IVPB ONE (22:16)
[2016-12-05] MEDS ORDERED: Aspirin 325 MG TABLET PO ONE (22:22)
[2016-12-05] MEDS ORDERED: 0.9 % Sodium Chloride 250 ML IVC SCH (22:30)
[2016-12-05] MEDS: Ipratropium/Albuterol Neb 3 ML IH SCH (23:17)
[2016-12-05] MEDS: Budesonide/Formoterol 160/4.5 MDI IH SCH (23:17)
[2016-12-06 01:07] LABS: Magnesium 1.3 mg/dL (1.6-2.6); Potassium 3.1 mEq/L (3.5-4.5)
[2016-12-06] MEDS ORDERED: Ipratropium/Albuterol Neb 3 ML IH PRN (01:12)
[2016-12-06] MEDS ORDERED: NON-FORMULARY MEDICATION 1 EACH EACH (Oxygen [Oxygen] 2 L) NS PRN (01:12)
[2016-12-06 01:13] LABS: BUN/Creatinine Ratio 33 (6-26); Calcium 8.8 mg/dL (8.6-10.8); Carbon Dioxide 32 mEq/L (19-29); Chloride 97 mEq/L (98-109); Chol/HDL Ratio 3.1 (0-4.9); Cholesterol 105 mg/dL (< 200); Glucose 306 mg/dL (70-99); HDL Cholesterol 34 mg/dL (40-59); LDL Cholesterol,Calculated 37 mg/dL (0-99); Osmolality,Calculated 306 (280-300); Potassium 3.1 mEq/L (3.5-4.5); Sodium 139 mEq/L (136-145); Triglycerides 169 mg/dL (< 150); eGFR For African Americans > 60 (> 60); eGFR For Non-African Americans > 60 (> 60)
[2016-12-06 01:16] LABS: Blood Urea Nitrogen 31 mg/dL (7-20)
[2016-12-06 01:26] LABS: Basophils # 0.1 K/mcL (0.0-0.2); Basophils % 0.7 %; Eosinophils # 0.4 K/mcL (0.0-0.6); Hematocrit 36.6 % (35.3-44.9); Hemoglobin 11.1 g/dL (11.5-15.4); Immature Granulocytes % 0.9 % (0-4); Lymphocytes # 2.4 K/mcL (0.6-4.6); Lymphocytes % 23.1 %; Mean Corpuscular HGB Conc 30.3 g/dL (31.6-35.5); Mean Corpuscular Hemoglobin 25.4 pg (28.0-33.3); Mean Corpuscular Volume 83.8 fL (83.0-100.0); Mean Platelet Volume 11.9 fL (9.4-12.4); Monocytes # 0.5 K/mcL (0.0-1.3); Monocytes % 4.3 %; Platelet Count 185 K/mcL (140-400); Red Blood Count 4.37 M/mcL (3.82-4.97); Red Cell Distribution Width 15.5 % (11.5-14.5)
[2016-12-06] MEDS: traMADol 50 MG TABLET PO SCH ×2 (01:35→09:24)
[2016-12-06] MEDS ORDERED: *HR* Promethazine 25 MG/ML VIAL IVP ONE (04:35)
[2016-12-06] MEDS: Ipratropium/Albuterol Neb 3 ML IH SCH ×3 (05:00→15:51)
[2016-12-06] MEDS ORDERED: *HR* Enoxaparin 40 MG/0.4 ML SYRINGE SQ SCH (07:00)
[2016-12-06] MEDS ORDERED: amLODIPine 5 MG TABLET PO SCH (09:00)
[2016-12-06] MEDS ORDERED: Bumetanide 1 MG TABLET PO SCH (09:00)
[2016-12-06] MEDS ORDERED: Tiotropium 18 MCG inhalation IH SCH (09:00)
[2016-12-06] MEDS ORDERED: NON-FORMULARY MEDICATION 1 EACH EACH (Insulin Glargine [Lantus] 90 UNIT) SQ SCH (09:00)
[2016-12-06] MEDS ORDERED: Insulin DETEMIR 100 UNIT/ML X5UNITS SQ SCH (09:00)
[2016-12-06] MEDS ORDERED: Aspirin 81 MG TAB.CHEW PO SCH (09:00)
[2016-12-06] MEDS ORDERED: Isosorbide MONOnitrate (24 HR) 30 MG TAB.ER.24H PO SCH (09:00)
[2016-12-06] MEDS ORDERED: Fenofibrate 54 MG TABLET PO SCH (09:00)
[2016-12-06] MEDS: Insulin LISPRO 300 UNITS/3 ML VIAL SQ SCH ×3 (09:22→16:38)
[2016-12-06] MEDS: Baclofen 10 MG TABLET PO SCH ×2 (09:23→16:37)
[2016-12-06] MEDS: Gabapentin 400 MG CAPSULE PO SCH ×2 (09:24→16:37)
[2016-12-06] MEDS: clonazePAM 1 MG TABLET PO SCH ×2 (09:25→16:37)
--- NOTE | 2016-12-06 10:01 | Neurology - Consult Note ---
Date of Encounter: 12/06/16 Time of Encounter: 10:01 Assessment and Plan (1) Numbness and tingling of left upper and lower extremity Current Visit: Yes Status: Acute Patient does not have a history of stroke/seizure/migraine headache however she does have risk factors of stroke of morbid obesity, hypertension, uncontrolled diabetes, hyperlipidemia, extensive smoking history and coronary artery disease , she takes Plavix for a history of CAD and she received full dose aspirin in the ER yesterday and she is currently on statin, previous echo from May 2016 showed normal ejection fraction and systolic function of left ventricle but indeterminate diastolic function, patient states that she gets palpitations occasionally. EKG in the ER showed sinus rhythm with normal heart rate. Heart blood pressure is stable at this time however she does have hyperglycemia with uncontrolled diabetes type 2. Head CT scan without contrast yesterday shows no acute process. Her symptoms of left-sided weakness/tingling/numbness came back again at this time, patient will need carotid ultrasounds and MRI of the brain to rule out acute stroke. History of Present Illness Chief complaint: Left-sided facial/upper and lower extremities tingling/numbness /weakness HPI: Ms. Lynch is a 61 year old female with a history of uncontrolled diabetes type 2, coronary artery disease, morbid obesity, hypertension, hyperlipidemia, COPD, and hypothyroidism who presented to the ER with chief complaint of left-sided facial, upper/lower extremities tingling/numbness/weakness which started yesterday after she woke up around 6 AM. The day before yesterday she did not have these symptoms. She has no history of stroke, seizure or migraine headache. She states that she gets occasional headache 1-3 times per year and it is both sides of head. Patient denies facial droop or slurred speech, left- sided weakness/tingling/numbness resolved this morning however it came back a few hours later. She takes Plavix at home with a history of coronary artery disease, with a history of 4 stents placement. Recently she was discharged from this hospital for chest pain rule out acute coronary syndrome, patient had a stress test which came back negative. Previous echo was done May last year which showed left ventricular ejection fraction of 65%, normal left ventricular size/systolic function and indeterminate diastolic function. Her last hemoglobin A1c was last month and it was more than 9. EKG done in the ER showed sinus rhythm with controlled heart rate, head CT scan without contrast showed no acute process, and patient received a full dose aspirin in the ER. Past Med Surg Social Fam HX - Past Medical History Medical history: arthritis, CHF, COPD, coronary artery disease, diabetes, GERD, hyperlipidemia, hypertension, osteoporosis, thyroid disease, venous stasis, other Psychiatric history: anxiety, bipolar, depression, panic disorder - Past Surgical History Surgical History: angioplasty/stent (Patient reports having four cardiac stents placed. Three stents were placed at [facility] in 2004 and one stent was placed at [facility] in 2007.), , cholecystectomy, hysterectomy, other - Social History Smoking Status: Former smoker Smokeless Tobacco Status: Yes (vapor) Alcohol use: none Drug use: none - Family History Father Adopted: No Family Member Ethnicity: Non- Living Status: Hx Family Cardiac Disorders: Yes Mother Adopted: No Family Member Ethnicity: Non- Living Status: Hx Family Cardiac Disorders: No Hx Family Respiratory Disorders: No Hx Family Cancer: No Hx Family GI Disorders: No Hx Family Endocrine Disorder: Yes Hx Family Neuromuscular Disorders: No Hx Family Neurologic Disorders: No Hx Family HEENT Disorders: No Hx Family Autoimmune Disorders: No Medications and Allergies Budesonide/Formoterol 160/4.5 [Symbicort] 2 puff IH BIDR 04/21/15 [History] Gabapentin [Neurontin] 800 mg PO TID 04/21/15 [History] Levothyroxine [Synthroid] 100 mcg PO QAM 04/21/15 [History] Metformin [Glucophage] 1,000 mg PO BID 04/21/15 [History] Tiotropium [Spiriva] 18 mcg IH QAM 04/21/15 [History] Amlodipine Besylate 2.5 mg PO DAILY 12/27/15 [History] Atorvastatin Calcium [Lipitor] 40 mg PO DAILY 02/04/16 [History] Buspirone HCl [Buspar] 15 mg PO TID 02/04/16 [History] Montelukast [Singulair] 10 mg PO HS 02/04/16 [History] Isosorbide MONOnitrate (24 HR) [Imdur] 90 mg PO QAM #90 tab.er.24h 02/05/16 [Rx] Oxygen 2 l NS AD PRN 03/17/16 [History] Insulin Glargine [Lantus] 80 unit SQ QPM 03/25/16 [History] Insulin Glargine [Lantus] 90 unit SQ QAM 03/25/16 [History] Albuterol Sulfate [Albuterol Inhaler] 2 puff IH Q4HR PRN 05/01/16 [History] Citalopram Hydrobromide [Citalopram HBr] 40 mg PO DAILY 05/01/16 [History] Ipratropium/Albuterol Neb [Duoneb] 3 ml IH Q6H PRN 05/01/16 [History] Raloxifene [Evista] 60 mg PO DAILY 05/01/16 [History] TraMADol [Ultram] 50 mg PO BID 05/01/16 [History] Aripiprazole [Abilify] 10 mg PO HS tablet 05/03/16 [Rx] ClonazePAM [Klonopin] 1 mg PO TID tablet 05/03/16 [Rx] Dicyclomine HCl [Bentyl] 20 mg PO TID 06/15/16 [History] Fenofibrate Nanocrystallized [Tricor] 145 mg PO DAILY 06/15/16 [History] Promethazine [Phenergan] 25 mg PO Q12H PRN 06/15/16 [History] Clopidogrel [Plavix] 75 mg PO QAM tablet 06/18/16 [Rx] Buprenorphine [Butrans] 10 mcg TD QWEEK 06/27/16 [History] Ondansetron HCl [Zofran] 4 mg PO Q6H PRN #20 tablet 08/07/16 [Rx] Baclofen [Lioresal] 10 mg PO TID 08/24/16 [History] Metoprolol Tartrate 25 mg PO BID 08/24/16 [History] Omeprazole [PriLOSEC] 20 mg PO BID 08/24/16 [History] Bumetanide 2 mg PO BID 11/21/16 [History] Meclizine [Antivert] 25 mg PO DAILY PRN 11/21/16 [History] Metolazone [Zaroxolyn] 5 mg PO Q48H 11/21/16 [History] Nortriptyline [Pamelor] 25 mg PO HS 11/21/16 [History] Oxycodone HCl/Acetaminophen [Percocet 5-325 mg Tablet] 1 tab PO Q4H PRN [History] Potassium Chloride 40 meq PO BID 11/21/16 [History] Docusate [Colace] 100 mg PO DAILY #30 capsule 11/24/16 [Rx] Polyethylene Glycol 3350 [MiraLAX Powder Bulk 17.9 Oz] 1 scoop PO DAILY #510 gm 11/24/16 [Rx] Allergies No Known Allergies Allergy (Verified 11/12/16 02:17) All Systems: A 10-system review of systems was performed and is negative for pertinent findings except as documented above in the HPI. Review of Systems: Patient admits left sided facial/upper/lower extremities tingling/numbness/ weakness which started yesterday morning, the symptoms came back again currently , she denies slurred speech, facial droop, fever, chills, shortness of breath, chest pain, palpitation, nausea/vomiting, abdominal pain, diarrhea, constipation or dysuria. Physical Examination - Vital Signs Vital Signs: Initial Vital Signs Temp Pulse Resp BP Pulse Ox 98.1 F 84 18 154/84 93 12/05/16 12:36 12/05/16 12:36 12/05/16 12:36 12/05/16 12:36 12/05/16 12:36 - Constitutional General appearance: comfortable - Neurologic Sensorimotor examination: intact Detailed motor examination: grossly full strength in all extremities, full strength in all major muscle groups Detailed sensory examination: intact Reflex and gait examination: intact Reflexes: Biceps: 2+, Triceps: 2+, Brachioradialis: 2+, Patella: 2+, Achilles: 2 + Mental Status Examination: awake, alert, oriented to person, oriented to place, oriented to time, follows commands appropriately, answers questions appropriately, no agnosia, no aphasia, no aproxia Cranial nerve examination: PERRL, EOMI, visual padgett intact, corneal reflexes brisk symmetrically, sensory to face intact, no facial asymmetry is present, no dysarthria, hearing is intact symmetrically, soft palate elevates bilaterally upon phonation, no atrophy or facial fasiculations present Cerebellar examination: no dysmetria, performs finger to nose and heel to boo symmetrically without ataxia, no gait ataxia, no truncal ataxia, no difficulty with rapid alternating movements Results - Laboratory Findings CBC and BMP: 12/06/16 00:55 12/06/16 00:55 Abnormal lab findings: Abnormal lab results Hgb 11.1 g/dL (11.5-15.4) L 12/06/16 00:55 MCH 25.4 pg (28.0-33.3) L 12/06/16 00:55 MCHC 30.3 g/dL (31.6-35.5) L 12/06/16 00:55 RDW 15.5 % (11.5-14.5) H 12/06/16 00:55 VBG pCO2 53 mmHg (41-51) H 12/05/16 13:04 VBG pO2 56 mmHg (25-40) H 12/05/16 13:04 VBG HCO3 34.4 mEq/L (21-27) H 12/05/16 13:04 Potassium 3.1 mEq/L (3.5-4.5) L 12/06/16 00:55 Chloride 97 mEq/L (98-109) L 12/06/16 00:55 Carbon Dioxide 32 mEq/L (19-29) H 12/06/16 00:55 BUN 31 mg/dL (7-20) H D 12/06/16 00:55 BUN/Creatinine Ratio 33 (6-26) H 12/06/16 00:55 Glucose 306 mg/dL (70-99) H 12/06/16 00:55 POC Glucose 236 (58-89) H 12/06/16 08:16 Calculated Osmolality 306 (280-300) H 12/06/16 00:55 Magnesium 1.3 mg/dL (1.6-2.6) L 12/06/16 00:55 Triglycerides 169 mg/dL (< 150) H 12/06/16 00:55 VLDL Cholesterol, Calc 34 mg/dL (< 31) H 12/06/16 00:55 HDL Cholesterol 34 mg/dL (40-59) L 12/06/16 00:55 Beta-Hydroxybutyric Acd 0.32 mmol/L (0.02-0.27) H 12/05/16 13:04 Urine Clarity Cloudy (Clear) A 12/05/16 13:52 Urine Glucose (UA) 500 mg/dL (Normal) H 12/05/16 13:52 Urine Nitrite Positive (Negative) A 12/05/16 13:52 Ur Leukocyte Esterase Moderate (Negative) H 12/05/16 13:52 Urine Microscopic RBC 5-15 per hpf (0-3) H 12/05/16 13:52 Urine Microscopic WBC 30-50 per hpf (0-3) H 12/05/16 13:52 Ur Squamous Epith Cells Moderate per lpf (None-Few) H 12/05/16 13:52 Urine Bacteria Many per hpf (None-Few) H 12/05/16 13:52 Ur Culture Indicated? YES (NO) A 12/05/16 13:52 Consult Discharge Plan - Plan Referrals: Corey Waddell, [Primary Care Provider] -
[2016-12-06] MEDS: Budesonide/Formoterol 160/4.5 MDI IH SCH (11:05)
[2016-12-06] MEDS: *HR* OxyCODONE/APAP 5/325 TABLET PO PRN ×2 (12:24→19:26)
--- NOTE | 2016-12-06 18:18 | Electrocardiograph Report ---
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
--- NOTE | 2016-12-06 18:25 | Discharge Summary ---
Date of Encounter: 12/06/16 Time of Encounter: 18:23 - Discharge Diagnosis (1) TIA (transient ischemic attack) Priority: Primary Status: Acute Qualifiers: Transient cerebral ischemia type: unspecified Qualified Code(s): G45.9 - Transient cerebral ischemic attack, unspecified (2) Hyperlipidemia Priority: Secondary Status: Chronic Qualifiers: Hyperlipidemia type: unspecified Qualified Code(s): E78.5 - Hyperlipidemia , unspecified (3) CAD (coronary artery disease) Priority: Secondary Status: Chronic Qualifiers: Coronary Disease-Associated Artery/Lesion type: [place] artery [place] vs. transplanted heart: [place] heart Associated angina: without angina Qualified Code(s): I25.10 - Atherosclerotic heart disease of [place] coronary artery without angina pectoris (4) Anxiety Priority: Secondary Status: Chronic - Discharge Medications Prescriptions: Aspirin 81 mg PO DAILY #60 tab.chew Home Medications: Budesonide/Formoterol 160/4.5 [Symbicort] 2 puff IH BIDR 04/21/15 [History] Gabapentin [Neurontin] 800 mg PO TID 04/21/15 [History] Levothyroxine [Synthroid] 100 mcg PO QAM 04/21/15 [History] Metformin [Glucophage] 1,000 mg PO BID 04/21/15 [History] Tiotropium [Spiriva] 18 mcg IH QAM 04/21/15 [History] Amlodipine Besylate 2.5 mg PO DAILY 12/27/15 [History] Atorvastatin Calcium [Lipitor] 40 mg PO DAILY 02/04/16 [History] Buspirone HCl [Buspar] 15 mg PO TID 02/04/16 [History] Montelukast [Singulair] 10 mg PO HS 02/04/16 [History] Isosorbide MONOnitrate (24 HR) [Imdur] 90 mg PO QAM #90 tab.er.24h 02/05/16 [Rx] Oxygen 2 l NS AD PRN 03/17/16 [History] Insulin Glargine [Lantus] 80 unit SQ QPM 03/25/16 [History] Insulin Glargine [Lantus] 90 unit SQ QAM 03/25/16 [History] Albuterol Sulfate [Albuterol Inhaler] 2 puff IH Q4HR PRN 05/01/16 [History] Citalopram Hydrobromide [Citalopram HBr] 40 mg PO DAILY 05/01/16 [History] Ipratropium/Albuterol Neb [Duoneb] 3 ml IH Q6H PRN 05/01/16 [History] Raloxifene [Evista] 60 mg PO DAILY 05/01/16 [History] TraMADol [Ultram] 50 mg PO BID 05/01/16 [History] Aripiprazole [Abilify] 10 mg PO HS tablet 05/03/16 [Rx] ClonazePAM [Klonopin] 1 mg PO TID tablet 05/03/16 [Rx] Dicyclomine HCl [Bentyl] 20 mg PO TID 06/15/16 [History] Fenofibrate Nanocrystallized [Tricor] 145 mg PO DAILY 06/15/16 [History] Promethazine [Phenergan] 25 mg PO Q12H PRN 06/15/16 [History] Clopidogrel [Plavix] 75 mg PO QAM tablet 06/18/16 [Rx] Buprenorphine [Butrans] 10 mcg TD QWEEK 06/27/16 [History] Ondansetron HCl [Zofran] 4 mg PO Q6H PRN #20 tablet 08/07/16 [Rx] Baclofen [Lioresal] 10 mg PO TID 08/24/16 [History] Metoprolol Tartrate 25 mg PO BID 08/24/16 [History] Omeprazole [PriLOSEC] 20 mg PO BID 08/24/16 [History] Bumetanide 2 mg PO BID 11/21/16 [History] Meclizine [Antivert] 25 mg PO DAILY PRN 11/21/16 [History] Metolazone [Zaroxolyn] 5 mg PO Q48H 11/21/16 [History] Nortriptyline [Pamelor] 25 mg PO HS 11/21/16 [History] Oxycodone HCl/Acetaminophen [Percocet 5-325 mg Tablet] 1 tab PO Q4H PRN [History] Potassium Chloride 40 meq PO BID 11/21/16 [History] Docusate [Colace] 100 mg PO DAILY #30 capsule 11/24/16 [Rx] Polyethylene Glycol 3350 [MiraLAX Powder Bulk 17.9 Oz] 1 scoop PO DAILY #510 gm 11/24/16 [Rx] Aspirin 81 mg PO DAILY #60 tab.chew 12/06/16 [Rx] Allergies/Adverse Reactions: Allergies No Known Allergies Allergy (Verified 11/12/16 02:17) Procedures/tests Complete & Pending: Procedures Performed prior 72 hours Category Date Time Status MR head/brain wo con [MR] Routine MRI 12/06/16 12:53 Completed EV carotid duplex imaging BI Routine Y 12/06/16 20:39 Completed Date of admission: 12/05/16 15:22 Primary care physician: Corey Waddell, Consults: 12/05/16 18:23 Consult to Internal Security Manager [CONS] Routine Reason for SW Consult: Patient receives home rob aid and nursing care through [place] and home oxygen therapy through [facility]. Discharging clinician: Deon Basurto - Patient Status Disposition: Home, Self-Care Condition: Fair Functional capacity at discharge: uses cane/walker Overall status at discharge: patient is progressing back to baseline - Discharge Instructions Follow Up With: Corey Waddell DO [Primary Care Provider] - 12/10/16 12:30 pm Corey Flores DO [Partnered Physician] - - Diet and Activity Activity: increase activity as tolerated Diet: low fat, low cholesterol, low salt diet Interval History: Ms. Lynch is a 61 year old female past medical history arthritis congestive heart failure COPD coronary disease with stent placement diabetes GERD hyperlipidemia hypertension osteoporosis thyroid disease anxiety bipolar disorder. Patient states that she woke up this morning with a right sided temporal headache that she described as an achiness 8 out of 10 pain. She said she did not some blurring of her vision as well as experiencing left sided numbness to her face neck down to the left arm. Patient's last known well was evening when she went to bed. She denies any past history of CVA seizures or migraines. She denies any nausea vomiting lightheadedness during the episode. However she states that before she went to bed she is feeling somewhat shaky and nauseated. She also complains of intermittent pain chest pain that has been occurring over the past few weeks. She describes the pain as achiness is constant 5 out of 10 with no relieving or aggravating factors. She was seen here 2017 for chest pain and had a complete workup by cardiology cardiac stress test revealed no ischemia or infarct at that time. Patient also complains of frequent urination and burning she denies any fevers or chills shortness of breath or abdominal pain. She presented to the ER with the above complaints according to ER records patient's NIH was 2 CT of head was negative for any acute intracranial [place]. Lab work did reveal magnesium 1.1 as well as hyperglycemia 457 creatinine 1.17 potassium was 3. Patient was given 10 units of insulin oral potassium as well as IV and IV magnesium. Urinalysis did reveal leukoesterase as well as nitrates she was started on Rocephin. ER did speak with Dr. Flores neurology who recommended giving patient aspirin and follow with MRI and carotid studies he will see patient as consult. Patient has been admitted for further workup and evaluation. Presently patient is alert and oriented following simple commands. Cranial nerves II through XII are intact. She has equal strength in all 4 extremities. There is no facial droop. Patient continues to complain of headache as well as chest pain. She is requesting narcotics. Explained to patient that we will be performing frequent neuro exams and that we cannot give heavy narcotics due to masking changes and neuro status. Patient verbalized understanding present patient's hemodynamics stable. Hospital course: ultrasound carotid:Negative MRI of brain: No evidence of infarct. Echocardiogram: Within normal limits Plan Patient can go home. We will start patient on ASA/Statin follow up with PCP in 1-2 weeks folllow up with Neurology in 1-2 weeks - Time Spent with Patient Total time spent providing and/or coordinating discharge services: - Constitutional Vitals: Temp Pulse Resp BP Pulse Ox 98.2 F 76 17 121/78 92 12/06/16 15:28 12/06/16 15:28 12/06/16 15:28 12/06/16 15:28 12/06/16 15:28 General appearance: Present: A&O X 3, morbidly obese, answers questions appropriately - Head Head exam: Present: atraumatic, normocephalic - Eye Eye exam: Present: PERRL, conjuntiva pink, sclera anicteric Pupils: Present: PERRL - Neck Neck exam general surgery: Present: supple, trachea midline. Absent: lymphadenopathy - Respiratory Respiratory exam: Present: CTAB. Absent: accessory muscle use, rales, rhonchi, wheezes - Cardiovascular Cardiovascular exam: Present: RRR, +S1, +S2. Absent: diastolic murmur, gallop, rubs, systolic murmur - GI/Abdominal GI/Abdominal exam: Present: normal bowel sounds, soft, no peritoneal signs. Absent: distended, tenderness - Extremities Exam Extremities exam: Present: warm, radial pulses palpable and symetrical. Absent : calf tenderness, cyanotic, pedal edema - Neurological Exam Neurological exam: Present: CN II-XII intact, oriented X3, no focal deficits. Absent: pronater drift, facial droop, speech deficit - Skin Skin exam: Present: dry, intact
--- NOTE | 2016-12-06 19:36 | Physician Discharge Referral ---
Home Health/Hosp Referral Info Transfer to: Home Health - Diagnosis (1) TIA (transient ischemic attack) Priority: Primary Status: Acute (2) Hyperlipidemia Priority: Secondary Status: Chronic (3) CAD (coronary artery disease) Priority: Secondary Status: Chronic (4) Anxiety Priority: Secondary Status: Chronic - Respiratory Orders Smoking Cessation: Smoking cessation has been advised. For more information, call the [place] Tobacco Quit Line at 6-160-FLTS-NOW. - Services Needed Following services are medically necessary services: Physical Therapy (nurse evaluation), Occupational Therapy - Transfer Medications Prescriptions: Aspirin 81 mg PO DAILY #60 tab.chew Home Medications: Budesonide/Formoterol 160/4.5 [Symbicort] 2 puff IH BIDR 04/21/15 [History] Gabapentin [Neurontin] 800 mg PO TID 04/21/15 [History] Levothyroxine [Synthroid] 100 mcg PO QAM 04/21/15 [History] Metformin [Glucophage] 1,000 mg PO BID 04/21/15 [History] Tiotropium [Spiriva] 18 mcg IH QAM 04/21/15 [History] Amlodipine Besylate 2.5 mg PO DAILY 12/27/15 [History] Atorvastatin Calcium [Lipitor] 40 mg PO DAILY 02/04/16 [History] Buspirone HCl [Buspar] 15 mg PO TID 02/04/16 [History] Montelukast [Singulair] 10 mg PO HS 02/04/16 [History] Isosorbide MONOnitrate (24 HR) [Imdur] 90 mg PO QAM #90 tab.er.24h 02/05/16 [Rx] Oxygen 2 l NS AD PRN 03/17/16 [History] Insulin Glargine [Lantus] 80 unit SQ QPM 03/25/16 [History] Insulin Glargine [Lantus] 90 unit SQ QAM 03/25/16 [History] Albuterol Sulfate [Albuterol Inhaler] 2 puff IH Q4HR PRN 05/01/16 [History] Citalopram Hydrobromide [Citalopram HBr] 40 mg PO DAILY 05/01/16 [History] Ipratropium/Albuterol Neb [Duoneb] 3 ml IH Q6H PRN 05/01/16 [History] Raloxifene [Evista] 60 mg PO DAILY 05/01/16 [History] TraMADol [Ultram] 50 mg PO BID 05/01/16 [History] Aripiprazole [Abilify] 10 mg PO HS tablet 05/03/16 [Rx] ClonazePAM [Klonopin] 1 mg PO TID tablet 05/03/16 [Rx] Dicyclomine HCl [Bentyl] 20 mg PO TID 06/15/16 [History] Fenofibrate Nanocrystallized [Tricor] 145 mg PO DAILY 06/15/16 [History] Promethazine [Phenergan] 25 mg PO Q12H PRN 06/15/16 [History] Clopidogrel [Plavix] 75 mg PO QAM tablet 06/18/16 [Rx] Buprenorphine [Butrans] 10 mcg TD QWEEK 06/27/16 [History] Ondansetron HCl [Zofran] 4 mg PO Q6H PRN #20 tablet 08/07/16 [Rx] Baclofen [Lioresal] 10 mg PO TID 08/24/16 [History] Metoprolol Tartrate 25 mg PO BID 08/24/16 [History] Omeprazole [PriLOSEC] 20 mg PO BID 08/24/16 [History] Bumetanide 2 mg PO BID 11/21/16 [History] Meclizine [Antivert] 25 mg PO DAILY PRN 11/21/16 [History] Metolazone [Zaroxolyn] 5 mg PO Q48H 11/21/16 [History] Nortriptyline [Pamelor] 25 mg PO HS 11/21/16 [History] Oxycodone HCl/Acetaminophen [Percocet 5-325 mg Tablet] 1 tab PO Q4H PRN [History] Potassium Chloride 40 meq PO BID 11/21/16 [History] Docusate [Colace] 100 mg PO DAILY #30 capsule 11/24/16 [Rx] Polyethylene Glycol 3350 [MiraLAX Powder Bulk 17.9 Oz] 1 scoop PO DAILY #510 gm 11/24/16 [Rx] Aspirin 81 mg PO DAILY #60 tab.chew 12/06/16 [Rx] Allergies/Adverse Reactions: Allergies No Known Allergies Allergy (Verified 11/12/16 02:17) Certification: Further, I certify that my clinical findings support that this patient is homebound (i.e. absences from home require considerable and taxing effort and are for medical reasons or orthodox services or infrequently or short duration when for other reasons) because: Homebound Reason: Patient requires assistance of a person or device to safely leave home Attestation: My signature below is to certify that this patient is under my care and that I, or nurse practitioner, or a physician's assignment desk assistant working with me, has a face-to -face encounter with this patient.
[2016-12-06] MEDS ORDERED: Nystatin POWDER 30 GM BOTTLE TP SCH (21:00)
[2016-12-06] MEDS ORDERED: ARIPiprazole 10 MG TABLET PO SCH (21:00)
[2016-12-07 11:24] VITALS: BP 121/78
--- NOTE | 2016-12-07 18:08 | Carotid Imaging Report ---
Carotid Duplex Patient Name:Claire Lynch Order Number:[id number] Procedure Date:12/06/2016 Date:8Age:61 yrs Gender:Female Lt BP:121 / 78 mmHg Rt.BP:121 / 78 mmHgHeart Rate: Location:[facility] Room #: 3B39 Family Preservation Worker:Linda Black Referring MD:Jeanie Ruiz CNP implementation services analyst:Corey Waddell DO Reading MD:Shorty Becker MD Primary Indications:Left sided weakness Risk Factors Yes/No Hypertension Diabetes [place] Smoker Previous Impressions: The bilateral carotid arteries have minimal plaque throughout. Findings Carotid Duplex: Right: There is nonstenotic plaque in the right mid common carotid artery. There is smooth heterogeneous plaque. There is nonstenotic plaque in the right bifurcation. There is smooth heterogeneous plaque. There is nonstenotic plaque in the right proximal internal carotid artery. There is smooth heterogeneous plaque. Left: There is nonstenotic plaque in the left bifurcation. There is smooth heterogeneous plaque. Prior Study: No prior study available for comparison. Carotid Results Right PSV EDV Assessment Proximal CCA 122 0 Normal Mid CCA 88 18 Non Stenotic Plaque Distal CCA 88 15 Normal Bifurcation 75 11 Non Stenotic Plaque Proximal ICA 47 14 Non Stenotic Plaque Mid ICA 109 34 Normal Distal ICA 97 30 Normal ECA 132 13 Normal Vertebral Artery 30 8 Antegrade Flow Left PSV EDV Assessment Proximal CCA 122 14 Normal Mid CCA 93 9 Normal Distal CCA 93 12 Normal Bifurcation 64 13 Non Stenotic Plaque Proximal ICA 71 18 Normal Mid ICA 106 26 Normal Distal ICA 104 24 Normal ECA 130 17 Normal Vertebral Artery 53 19 Antegrade Flow Ratio's Right ICA/CCA Ratio: 1.24 ICA/CCA Values: 109/88 Left ICA/CCA Ratio: 1.14 ICA/CCA Values: 106/93 Updated by Shorty Becker MD on 12/07/2016 6:01:27 PM electronically signed on 12/07/2016 6:01:44 PM with status of Final
== END 2016-12-06 19:40 | disposition home or self-care (01) ==
LOC: EMEROO 12:34 → 3BNU 12:34 → SUATTDRO 15:22 → 3BNU 15:25
PROVIDERS: ADMIT Nurse Practitioner Acute Care; ATTEND Internal Medicine

== ENCOUNTER 2016-12-14 00:09 | Observation (INO) ==
--- NOTE | 2016-12-14 00:25 | Emergency Department Note ---
Disposition Clinical Impression: Left sided numbness, TIA (transient ischemic attack), Headache, Hypokalemia Disposition: Admitted As Inpatient Condition: Fair General Adult HPI - General Chief complaint: ED Neuro Symptoms/Deficit Stated complaint: "I might be having a stroke" Time Seen by Provider: 12/14/16 00:15 Source: patient Limitations: no limitations - History of Present Illness Pain Scale: 8 - Related Data Home Medications Medication Instructions Recorded Confirmed Budesonide/Formoterol 160/4.5 2 puff IH BIDR 04/21/15 12/05/16 [Symbicort] Gabapentin [Neurontin] 800 mg PO TID 04/21/15 12/05/16 Levothyroxine [Synthroid] 100 mcg PO QAM 04/21/15 12/05/16 Metformin [Glucophage] 1,000 mg PO BID 04/21/15 12/05/16 Tiotropium [Spiriva] 18 mcg IH QAM 04/21/15 12/05/16 Amlodipine Besylate 2.5 mg PO DAILY 12/27/15 12/05/16 Atorvastatin Calcium [Lipitor] 40 mg PO DAILY 02/04/16 12/05/16 Buspirone HCl [Buspar] 15 mg PO TID 02/04/16 12/05/16 Montelukast [Singulair] 10 mg PO HS 02/04/16 12/05/16 Oxygen 2 l NS AD PRN 03/17/16 12/05/16 Insulin Glargine [Lantus] 80 unit SQ QPM 03/25/16 12/05/16 Insulin Glargine [Lantus] 90 unit SQ QAM 03/25/16 12/05/16 Albuterol Sulfate [Albuterol 2 puff IH Q4HR PRN 05/01/16 12/05/16 Inhaler] Citalopram Hydrobromide 40 mg PO DAILY 05/01/16 12/05/16 [Citalopram HBr] Ipratropium/Albuterol Neb [Duoneb] 3 ml IH Q6H PRN 05/01/16 12/05/16 Raloxifene [Evista] 60 mg PO DAILY 05/01/16 12/05/16 TraMADol [Ultram] 50 mg PO BID 05/01/16 12/05/16 Dicyclomine HCl [Bentyl] 20 mg PO TID 06/15/16 12/05/16 Fenofibrate Nanocrystallized 145 mg PO DAILY 06/15/16 12/05/16 [Tricor] Promethazine [Phenergan] 25 mg PO Q12H PRN 06/15/16 12/05/16 Buprenorphine [Butrans] 10 mcg TD QWEEK 06/27/16 12/05/16 Baclofen [Lioresal] 10 mg PO TID 08/24/16 12/05/16 Metoprolol Tartrate 25 mg PO BID 08/24/16 12/05/16 Omeprazole [PriLOSEC] 20 mg PO BID 08/24/16 12/05/16 Bumetanide 2 mg PO BID 11/21/16 12/05/16 Meclizine [Antivert] 25 mg PO DAILY PRN 11/21/16 12/05/16 Metolazone [Zaroxolyn] 5 mg PO Q48H 11/21/16 12/05/16 Nortriptyline [Pamelor] 25 mg PO HS 11/21/16 12/05/16 Oxycodone HCl/Acetaminophen 1 tab PO Q4H PRN 11/21/16 12/05/16 [Percocet 5-325 mg Tablet] Potassium Chloride 40 meq PO BID 11/21/16 12/05/16 Previous Rx's Medication Instructions Recorded Isosorbide MONOnitrate (24 HR) 90 mg PO QAM #90 tab.er.24h 02/05/16 [Imdur] Aripiprazole [Abilify] 10 mg PO HS tablet 05/03/16 ClonazePAM [Klonopin] 1 mg PO TID tablet 05/03/16 Clopidogrel [Plavix] 75 mg PO QAM tablet 06/18/16 Ondansetron HCl [Zofran] 4 mg PO Q6H PRN #20 tablet 08/07/16 Docusate [Colace] 100 mg PO DAILY #30 capsule 11/24/16 Polyethylene Glycol 3350 [MiraLAX 1 scoop PO DAILY #510 gm 11/24/16 Powder Bulk 17.9 Oz] Aspirin 81 mg PO DAILY #60 tab.chew 12/06/16 Allergies Allergy/AdvReac Type Severity Reaction Status Date / Time No Known Allergies Allergy Verified 11/12/16 02:17 Past Medical History - Past Medical History Medical history: Reports: arthritis, CHF, COPD, coronary artery disease, diabetes, GERD, hyperlipidemia, hypertension, osteoporosis, thyroid disease, TIA , venous stasis, other Surgical history: Reports: angioplasty/stent (Patient reports having four cardiac stents placed. 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 history: Reports: bilateral tubal ligation - Social History Smoking Status: Former smoker Smokeless Tobacco Status: No Alcohol use: Reports: none Drug use: Reports: none Physical Exam - General Limitations: no limitations General appearance: alert, in no apparent distress Course Vital Signs Temperature 97.7 F 12/14/16 00:10 Pulse Rate 86 12/14/16 00:10 Respiratory Rate 18 12/14/16 00:10 Blood Pressure 172/78 12/14/16 00:10 O2 Sat by Pulse Oximetry 93 12/14/16 00:10 Temperature 97.5 F L 12/14/16 02:30 Pulse Rate 84 12/14/16 02:30 Respiratory Rate 17 12/14/16 02:30 Blood Pressure 155/50 12/14/16 02:30 O2 Sat by Pulse Oximetry 93 12/14/16 02:30 Oxygen Delivery Oxygen Delivery Room Air Medical Decision Making - Lab Data Result diagrams: 12/14/16 00:36 12/14/16 00:36 Lab Results 12/14/16 12/14/16 12/14/16 Range/Units 00:19 00:36 00:36 WBC 11.5 H (4.3-11.1) K/mcL RBC 4.70 (3.82-4.97) M/mcL Hgb 11.9 (11.5-15.4) g/dL Hct 38.7 (35.3-44.9) % MCV 82.3 L (83.0-100.0) fL MCH 25.3 L (28.0-33.3) pg MCHC 30.7 L (31.6-35.5) g/dL RDW 15.9 H (11.5-14.5) % Plt Count 238 (140-400) K/mcL MPV 11.5 (9.4-12.4) fL Immature Gran % 1.1 (0-4) % Seg Neutrophils % 54.5 % Lymphocytes % 35.3 % Monocytes % 5.1 % Eosinophils % 3.5 % Basophils % 0.5 % Neutrophils # 6.3 (1.6-8.9) K/mcL Lymphocytes # 4.1 (0.6-4.6) K/mcL Monocytes # 0.6 (0.0-1.3) K/mcL Eosinophils # 0.4 (0.0-0.6) K/mcL Basophils # 0.1 (0.0-0.2) K/mcL PT 10.1 (9.4-12.1) Seconds INR 0.9 APTT 28.1 (26.0-36.0) Seconds Sodium (136-145) mEq/L Potassium (3.5-4.5) mEq/L Chloride (98-109) mEq/L Carbon Dioxide (19-29) mEq/L BUN (7-20) mg/dL Creatinine (0.57-1.11) mg/dL Est GFR ( Amer) (> 60) Est GFR (Non-Af Amer) (> 60) BUN/Creatinine Ratio (6-26) Glucose (70-99) mg/dL POC Glucose 192 H (58-89) Calculated Osmolality (280-300) Calcium (8.6-10.8) mg/dL Troponin I (0-0.03) ng/mL Ethyl Alcohol (0-10) mg/dL 12/14/16 12/14/16 Range/Units 00:36 00:36 WBC (4.3-11.1) K/mcL RBC (3.82-4.97) M/mcL Hgb (11.5-15.4) g/dL Hct (35.3-44.9) % MCV (83.0-100.0) fL MCH (28.0-33.3) pg MCHC (31.6-35.5) g/dL RDW (11.5-14.5) % Plt Count (140-400) K/mcL MPV (9.4-12.4) fL Immature Gran % (0-4) % Seg Neutrophils % % Lymphocytes % % Monocytes % % Eosinophils % % Basophils % % Neutrophils # (1.6-8.9) K/mcL Lymphocytes # (0.6-4.6) K/mcL Monocytes # (0.0-1.3) K/mcL Eosinophils # (0.0-0.6) K/mcL Basophils # (0.0-0.2) K/mcL PT (9.4-12.1) Seconds INR APTT (26.0-36.0) Seconds Sodium 138 (136-145) mEq/L Potassium 2.6 L (3.5-4.5) mEq/L Chloride 94 L (98-109) mEq/L Carbon Dioxide 31 H (19-29) mEq/L BUN 28 H (7-20) mg/dL Creatinine 0.85 (0.57-1.11) mg/dL Est GFR ( Amer) > 60 (> 60) Est GFR (Non-Af Amer) > 60 (> 60) BUN/Creatinine Ratio 33 H (6-26) Glucose 172 H (70-99) mg/dL POC Glucose (58-89) Calculated Osmolality 296 (280-300) Calcium 9.9 (8.6-10.8) mg/dL Troponin I 0.00 (0-0.03) ng/mL Ethyl Alcohol < 10 (0-10) mg/dL Attestation Statement - Attestation Attestation: I examined this patient and my medical decision-making was reviewed with the NOVELTY DIPPER/PA/Advanced Practice Nurse/Resident Physician. I agree with the documented findings, disposition and treatment plan as described except to the extent set forth below. [id number] time provided Patient presents complaining of left-sided facial numbness. She experienced similar symptoms 2 weeks ago which prompted admission. I did review the transcribed report of her MRI brain dated 12/06/16. There were no acute intracranial changes at that time. Plan of care and management discussed by me with the resident physician Dr. Lynch
--- NOTE | 2016-12-14 00:31 | Emergency Department Note ---
Disposition Clinical Impression: Left sided numbness, Hypokalemia TIA (transient ischemic attack) Qualifiers: Transient cerebral ischemia type: unspecified Qualified Code(s): G45.9 - Transient cerebral ischemic attack, unspecified Headache Qualifiers: Headache type: unspecified Headache chronicity pattern: unspecified pattern Intractability: not intractable Qualified Code(s): R51 - Headache Disposition: Admitted As Inpatient Condition: Fair Time of Disposition: 01:31 Neuro HPI - General Chief Complaint: ED Neuro Symptoms/Deficit Stated Complaint: "I might be having a stroke" Time Seen by Provider: 12/14/16 00:15 Source: patient Mode of arrival: ambulatory Limitations: no limitations Nursing Notes Reviewed: Yes Vital Signs Reviewed: Yes - History of Present Illness HPI Narrative: Patient presents to the ED with the chief complaint of "I think I am having a stroke". Patient states that approximately 2 hours prior to arrival. She was talking to her son on the phone who is in halfway and she developed left-sided facial numbness extending down into her left arm and left leg. She also complains of a headache off and on for the last day or so. She states that these symptoms were very scary. She was just admitted to the hospital 2 weeks ago with similar symptoms. After chart review, she did not have an acute CVA and had a normal CT head. MRI. She states that these are the same symptoms she was having previously. She does state that she is having numbness although she describes more of a tingling sensation. She denies any changes in vision, chest pain, shortness of breath, abdominal pain, nausea, vomiting, diarrhea, pain or swelling in her legs. Onset of Symptoms Date: 12/14/16 Onset of Symptoms Time: 22:00 Symptom Onset Unknown: No Timing confirmed by: family member Location: left face, left arm, left leg History of same: Yes Severity: mild, now resolved Quality: tingling Symptoms Improving: Yes Improves with: time Worsens with: none Context: gradual onset On Anticoagulants: No Associated symptoms: Reports: denies other symptoms Treatments Prior to Arrival: none - Related Data Home Medications: Home Medications Medication Instructions Recorded Confirmed Budesonide/Formoterol 160/4.5 2 puff IH BIDR 04/21/15 12/05/16 [Symbicort] Gabapentin [Neurontin] 800 mg PO TID 04/21/15 12/05/16 Levothyroxine [Synthroid] 100 mcg PO QAM 04/21/15 12/05/16 Metformin [Glucophage] 1,000 mg PO BID 04/21/15 12/05/16 Tiotropium [Spiriva] 18 mcg IH QAM 04/21/15 12/05/16 Amlodipine Besylate 2.5 mg PO DAILY 12/27/15 12/05/16 Atorvastatin Calcium [Lipitor] 40 mg PO DAILY 02/04/16 12/05/16 Buspirone HCl [Buspar] 15 mg PO TID 02/04/16 12/05/16 Montelukast [Singulair] 10 mg PO HS 02/04/16 12/05/16 Oxygen 2 l NS AD PRN 03/17/16 12/05/16 Insulin Glargine [Lantus] 80 unit SQ QPM 03/25/16 12/05/16 Insulin Glargine [Lantus] 90 unit SQ QAM 03/25/16 12/05/16 Albuterol Sulfate [Albuterol 2 puff IH Q4HR PRN 05/01/16 12/05/16 Inhaler] Citalopram Hydrobromide 40 mg PO DAILY 05/01/16 12/05/16 [Citalopram HBr] Ipratropium/Albuterol Neb [Duoneb] 3 ml IH Q6H PRN 05/01/16 12/05/16 Raloxifene [Evista] 60 mg PO DAILY 05/01/16 12/05/16 TraMADol [Ultram] 50 mg PO BID 05/01/16 12/05/16 Dicyclomine HCl [Bentyl] 20 mg PO TID 06/15/16 12/05/16 Fenofibrate Nanocrystallized 145 mg PO DAILY 06/15/16 12/05/16 [Tricor] Promethazine [Phenergan] 25 mg PO Q12H PRN 06/15/16 12/05/16 Buprenorphine [Butrans] 10 mcg TD QWEEK 06/27/16 12/05/16 Baclofen [Lioresal] 10 mg PO TID 08/24/16 12/05/16 Metoprolol Tartrate 25 mg PO BID 08/24/16 12/05/16 Omeprazole [PriLOSEC] 20 mg PO BID 08/24/16 12/05/16 Bumetanide 2 mg PO BID 11/21/16 12/05/16 Meclizine [Antivert] 25 mg PO DAILY PRN 11/21/16 12/05/16 Metolazone [Zaroxolyn] 5 mg PO Q48H 11/21/16 12/05/16 Nortriptyline [Pamelor] 25 mg PO HS 11/21/16 12/05/16 Oxycodone HCl/Acetaminophen 1 tab PO Q4H PRN 11/21/16 12/05/16 [Percocet 5-325 mg Tablet] Potassium Chloride 40 meq PO BID 11/21/16 12/05/16 Previous Rx's Medication Instructions Recorded Isosorbide MONOnitrate (24 HR) 90 mg PO QAM #90 tab.er.24h 02/05/16 [Imdur] Aripiprazole [Abilify] 10 mg PO HS tablet 05/03/16 ClonazePAM [Klonopin] 1 mg PO TID tablet 05/03/16 Clopidogrel [Plavix] 75 mg PO QAM tablet 06/18/16 Ondansetron HCl [Zofran] 4 mg PO Q6H PRN #20 tablet 08/07/16 Docusate [Colace] 100 mg PO DAILY #30 capsule 11/24/16 Polyethylene Glycol 3350 [MiraLAX 1 scoop PO DAILY #510 gm 11/24/16 Powder Bulk 17.9 Oz] Aspirin 81 mg PO DAILY #60 tab.chew 12/06/16 Allergies/Adverse Reactions: Allergies Allergy/AdvReac Type Severity Reaction Status Date / Time No Known Allergies Allergy Verified 11/12/16 02:17 All systems ED: reviewed and negative except as stated. Constitutional: Denies: fever Eyes: Denies: vision change ENT ED: Denies: throat pain Cardiovascular: Denies: chest pain Respiratory: Denies: dyspnea Gastrointestinal: Denies: abdominal pain, nausea, vomiting, diarrhea Genitourinary: Denies: dysuria Musculoskeletal: Denies: back pain, neck pain Integumentary: Denies: rash Neurological: Reports: headache, paresthesias. Denies: weakness, numbness, confusion, abnormal gait Psychiatric: Reports: anxiety. Denies: depression, suicidal thoughts Endocrine: Denies: fatigue Past Medical History - Past Medical History Attestation: Yes The following information was validated with the patient. Source: patient, old records reviewed Medical history: Reports: arthritis, CHF, COPD, coronary artery disease, diabetes, GERD, hyperlipidemia, hypertension, osteoporosis, thyroid disease, TIA , venous stasis, other Surgical history: Reports: angioplasty/stent (Patient reports having four cardiac stents placed. Three stents were placed at 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 Absent: nystagmus - ENT ENT exam: normal exam, normal oropharynx, mucous membranes moist - Neck Neck exam: Present: normal inspection, full ROM, trachea midline - Chest Chest inspection: Present: normal inspection, symmetric chest wall rise - Respiratory Respiratory exam: Present: normal lung sounds bilaterally - Cardiovascular Cardiovascular exam: Present: regular rate, normal rhythm, normal heart sounds - Abdominal Exam Abdominal exam: Present: soft, Non-Tender. Absent: tenderness, distention, guarding, rebound, rigidity - Extremities Exam Extremities exam: Present: normal inspection, full ROM. Absent: tenderness, pedal edema - Expanded Neurological Exam Patient oriented to: Present: person, place, time Speech: Present: fluid speech Cranial nerves: EOM function (II, III, IV, ): Normal, facial sensation (V): Normal (patient reports normal sensation and describes a tingling sensation to the left face), facial palsy (VII): Normal, spinal accessory function (XI): Normal, tongue deviation (XII): Normal Cerebellar function: finger to nose: Normal Cerebellar function: normal gait Motor strength - LUE: 5/5 Motor strength - RUE: 5/5 Motor strength - LLE: 5/5 Motor strength - RLE: 5/5 Upper motor neuron exam: carole neglect: Absent bilaterally, pronator drift: Absent bilaterally, sensory extinction: Absent bilaterally Sensory exam upper extremity: light touch: Normal Sensory exam lower extremity: light touch: Normal Coma Scale Eye Opening: Spontaneous Coma Scale Motor Response: Obeys Commands Coma Scale Verbal Response: Oriented Coma Scale Total: 15 - Psychiatric Psychiatric exam: Present: anxious - Skin Skin exam: Present: warm, dry, intact, normal color Course Course Narrative: NIH of 1-0. Patient does have a minor facial asymmetry on the left, but this resolves with range of motion of the facial muscles. She states she is having left-sided facial numbness but describes it more as tingling. She does state. Sensation is equal to both sides of her face, bilateral upper and lower extremities. States that this came on abruptly approximately 2 hours ago after speaking with her son who is in halfway. After reviewing her medical record, she was admitted 2 weeks ago for similar symptoms and had a negative MRI, carotid ultrasound, CT head. We will repeat CT imaging of her head and will likely admit for further evaluation. She reports she was supposed to see neurology, but did not know what she was supposed to do so. She did not go to the appointment. - Reevaluation(s) Reevaluation #1: Patient now complaining of chest discomfort. We will get an EKG. , Lab work pending. My read on the CT does not show anything acute. We will still admit her for further workup. Reevaluation #2: Accepted by the hospitalist for admission. Agreed that the patient could likely be discharged home. However, with recurrent symptoms and having very poor compliance and follow-up. We will admit her for inpatient neurology consultation. Neurological exam remains nonfocal. Patient agreeable with plan Reevaluation #3: Labs are resulted and the patient is hypokalemic at 2.8. Could be contributing to the patient's symptoms. We will replace by mouth. Patient admitted. Vital Signs Temperature 97.7 F 12/14/16 00:10 Pulse Rate 86 12/14/16 00:10 Respiratory Rate 18 12/14/16 00:10 Blood Pressure 172/78 12/14/16 00:10 O2 Sat by Pulse Oximetry 93 12/14/16 00:10 Temperature 97.7 F 12/14/16 00:10 Pulse Rate 86 12/14/16 00:10 Respiratory Rate 18 12/14/16 00:10 Blood Pressure 172/78 12/14/16 00:10 O2 Sat by Pulse Oximetry 93 12/14/16 00:10 Oxygen Delivery Oxygen Delivery Room Air Neuro Symptoms/Deficit - Lab Data Result diagrams: 12/14/16 00:36 12/14/16 00:36 Lab Results 12/14/16 12/14/16 12/14/16 Range/Units 00:19 00:36 00:36 WBC 11.5 H (4.3-11.1) K/mcL RBC 4.70 (3.82-4.97) M/mcL Hgb 11.9 (11.5-15.4) g/dL Hct 38.7 (35.3-44.9) % MCV 82.3 L (83.0-100.0) fL MCH 25.3 L (28.0-33.3) pg MCHC 30.7 L (31.6-35.5) g/dL RDW 15.9 H (11.5-14.5) % Plt Count 238 (140-400) K/mcL MPV 11.5 (9.4-12.4) fL Immature Gran % 1.1 (0-4) % Seg Neutrophils % 54.5 % Lymphocytes % 35.3 % Monocytes % 5.1 % Eosinophils % 3.5 % Basophils % 0.5 % Neutrophils # 6.3 (1.6-8.9) K/mcL Lymphocytes # 4.1 (0.6-4.6) K/mcL Monocytes # 0.6 (0.0-1.3) K/mcL Eosinophils # 0.4 (0.0-0.6) K/mcL Basophils # 0.1 (0.0-0.2) K/mcL PT 10.1 (9.4-12.1) Seconds INR 0.9 APTT 28.1 (26.0-36.0) Seconds Sodium (136-145) mEq/L Potassium (3.5-4.5) mEq/L Chloride (98-109) mEq/L Carbon Dioxide (19-29) mEq/L BUN (7-20) mg/dL Creatinine (0.57-1.11) mg/dL Est GFR ( Amer) (> 60) Est GFR (Non-Af Amer) (> 60) BUN/Creatinine Ratio (6-26) Glucose (70-99) mg/dL POC Glucose 192 H (58-89) Calculated Osmolality (280-300) Calcium (8.6-10.8) mg/dL Troponin I (0-0.03) ng/mL Ethyl Alcohol (0-10) mg/dL 12/14/16 12/14/16 Range/Units 00:36 00:36 WBC (4.3-11.1) K/mcL RBC (3.82-4.97) M/mcL Hgb (11.5-15.4) g/dL Hct (35.3-44.9) % MCV (83.0-100.0) fL MCH (28.0-33.3) pg MCHC (31.6-35.5) g/dL RDW (11.5-14.5) % Plt Count (140-400) K/mcL MPV (9.4-12.4) fL Immature Gran % (0-4) % Seg Neutrophils % % Lymphocytes % % Monocytes % % Eosinophils % % Basophils % % Neutrophils # (1.6-8.9) K/mcL Lymphocytes # (0.6-4.6) K/mcL Monocytes # (0.0-1.3) K/mcL Eosinophils # (0.0-0.6) K/mcL Basophils # (0.0-0.2) K/mcL PT (9.4-12.1) Seconds INR APTT (26.0-36.0) Seconds Sodium 138 (136-145) mEq/L Potassium 2.6 L (3.5-4.5) mEq/L Chloride 94 L (98-109) mEq/L Carbon Dioxide 31 H (19-29) mEq/L BUN 28 H (7-20) mg/dL Creatinine 0.85 (0.57-1.11) mg/dL Est GFR ( Amer) > 60 (> 60) Est GFR (Non-Af Amer) > 60 (> 60) BUN/Creatinine Ratio 33 H (6-26) Glucose 172 H (70-99) mg/dL POC Glucose (58-89) Calculated Osmolality 296 (280-300) Calcium 9.9 (8.6-10.8) mg/dL Troponin I 0.00 (0-0.03) ng/mL Ethyl Alcohol < 10 (0-10) mg/dL NIH Stroke Scale - Level of Consciousness LOC: Alert - LOC Questions LOC Questions: Answers both correctly - LOC Commands LOC Commands: Performs both correctly - Best Gaze Best Gaze: Normal - Visual Visual: No visual loss - Facial Palsy Facial Palsy: Minor asymmetry on smiling, flattened nasolabial fold (but resolves with movement of facial muscles) - Motor Arms Motor Arm-Left: No drift for 10 seconds Motor Arm-Right: No drift for 10 seconds - Motor Legs Motor Leg-Left: No drift for 5 seconds Motor Leg-Right: No drift for 5 seconds - Limb Ataxia Limb Ataxia: Absent of affected limb too weak to perform exam - Sensory Sensory: Normal - Best Language Best Language: No aphasia - Dysarthria Dysarthria: Normal - Extinction and Inattention Extinction and Inattention: Normal - NIHSS Total Score NIHSS Total Score: 1 TPA Checklist - LKW: 3-4.5 hrs Add. Contraindications Patient/family understanding: The patient/family members have been counseled and understood the risk, benefit , and alternatives of treatment. Jazmine - Jazmine Situation: Demographics, MOA Background: Presenting Complaint, Relevant PMH, Meds, & Allergies Assessment: Vital Signs, Course and respsone to treatment, Exam Concerns, Patient/Family Expectation, Pertinant Lab Results, Outstanding Labs Recommendation: Recommendation based on pending studies, treatments, or consults SHanny Report Given to: Dr. Luis Enrique Lucero Repor Time: 01:29
[2016-12-14 00:48] LABS: INR 0.9; Prothrombin Time 10.1 Seconds (9.4-12.1)
[2016-12-14 00:51] LABS: Activated Partial Thrombo Time 28.1 Seconds (26.0-36.0)
[2016-12-14 00:52] LABS: Basophils # 0.1 K/mcL (0.0-0.2); Basophils % 0.5 %; Eosinophils # 0.4 K/mcL (0.0-0.6); Eosinophils % 3.5 %; Hematocrit 38.7 % (35.3-44.9); Hemoglobin 11.9 g/dL (11.5-15.4); Immature Granulocytes % 1.1 % (0-4); Lymphocytes # 4.1 K/mcL (0.6-4.6); Lymphocytes % 35.3 %; Mean Corpuscular HGB Conc 30.7 g/dL (31.6-35.5); Mean Corpuscular Hemoglobin 25.3 pg (28.0-33.3); Mean Corpuscular Volume 82.3 fL (83.0-100.0); Mean Platelet Volume 11.5 fL (9.4-12.4); Monocytes # 0.6 K/mcL (0.0-1.3); Monocytes % 5.1 %; Neutrophils # 6.3 K/mcL (1.6-8.9); Platelet Count 238 K/mcL (140-400); Red Cell Distribution Width 15.9 % (11.5-14.5); Segmented Neutrophils % 54.5 %
[2016-12-14 00:55] LABS: BUN/Creatinine Ratio 33 (6-26); Blood Urea Nitrogen 28 mg/dL (7-20); Calcium 9.9 mg/dL (8.6-10.8); Carbon Dioxide 31 mEq/L (19-29); Chloride 94 mEq/L (98-109); Glucose 172 mg/dL (70-99); Osmolality,Calculated 296 (280-300); Potassium 2.6 mEq/L (3.5-4.5); Sodium 138 mEq/L (136-145); eGFR For African Americans > 60 (> 60); eGFR For Non-African Americans > 60 (> 60)
[2016-12-14 01:14] LABS: Ethanol < 10 mg/dL (0-10)
[2016-12-14] MEDS ORDERED: Aspirin 81 MG TAB.CHEW PO ONE (01:14)
[2016-12-14] MEDS ORDERED: Acetaminophen 325 MG TABLET PO ONE (01:48)
[2016-12-14] MEDS ORDERED: Dextrose Gel 15 GM PO PRN ×2 (01:59)
[2016-12-14] MEDS ORDERED: D5% in Water 1,000 ML IVC PRN (01:59)
[2016-12-14] MEDS ORDERED: Naloxone 0.4 MG/ML INJ IVP PRN (01:59)
[2016-12-14] MEDS ORDERED: *HR* Dextrose 50 % in Water (Syg) 50 ML SYRINGE IVP PRN (01:59)
[2016-12-14] MEDS ORDERED: Acetaminophen 325 MG TABLET PO PRN (01:59)
--- NOTE | 2016-12-14 02:14 | Internal Med History&Physical ---
Date of Encounter: 12/14/16 Time of Encounter: 02:11 Assessment and Plan (1) Bilateral lower leg cellulitis Current visit: No Status: Acute Acute lower extremity cellulitis Start Ancef Blood cultures (2) Left sided numbness Current visit: Yes Status: Acute Similar symptoms during last admission, Continue aspirin, simvastatin, order neurochecks Order an MRI of the brain, no need to order another carotid ultrasound and echocardiogram as she had them recently without any major abnormalities (3) Headache Current visit: Yes Status: Acute Stable, patient requesting morphine Qualifiers: Headache type: unspecified Headache chronicity pattern: unspecified pattern Intractability: not intractable Qualified Code(s): R51 - Headache (4) Hypokalemia Current visit: Yes Status: Acute Replete as needed Patient is on 40 mEq of potassium twice a day, recheck in the morning and decrease dose if needed (5) COPD (chronic obstructive pulmonary disease) Current visit: No Status: Acute Stable, no exacerbation Qualifiers: COPD type: unspecified COPD Qualified Code(s): J44.9 - Chronic obstructive pulmonary disease, unspecified (6) Type 2 diabetes mellitus Current visit: No Status: Acute Continue insulin 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 mellitus complication status: without complication 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 Omeprazole for GI prophylaxis and subcutaneous heparin for DVT prophylaxis, full code. Time spent on this admission 40 minutes. Qualifiers: Coronary Disease-Associated Artery/Lesion type: [place] artery [place] vs. transplanted heart: [place] heart Associated angina: without angina Qualified Code(s): I25.10 - Atherosclerotic heart disease of [place] coronary artery without angina pectoris Internal Medicine - H&P: HPI Chief complaint: Left-sided numbness Admitted From: Emergency Dept History of present illness: Ms. Lynch is a 61 year old female recently discharged from the hospital on December 06 which she was seen for similar symptoms, but then she had an MRI that did not show any acute stroke. Today she says that she started having left- sided numbness including her face her arm and leg accompanied with tingling that started at 10 PM last night after she spoke to her son who is in nursing home. The numbness has persistent and she thinks she is having a stroke. This patient has a history of diabetes type 2 insulin-dependent, TIAs, CAD status post stents and neuropathy. Her glucose is 172 potassium was 2.7 blood pressure was 172/78. A CT scan of the head did not show any acute abnormalities. She had a carpeted duplex that showed bilateral minimal flakes with no stenosis. Patient is complaining of some headache and also complains of bilateral leg pain, both of her shins appear red erythematous and tender. Past Med Surg Social Fam HX - Past Medical History Medical history: arthritis, CHF (Diastolic with an ejection fraction of 65%), COPD (Not oxygen dependent), coronary artery disease (Status post stents), diabetes (Insulin-dependent), GERD, hyperlipidemia, hypertension, osteoporosis, thyroid disease (Hypothyroidism), TIA, venous stasis, other (Neuropathy, venous stenoses, panic disorder, chronic back pain) Psychiatric history: anxiety, bipolar, depression, panic disorder - Past Surgical History Surgical History: angioplasty/stent (Patient reports having four cardiac stents placed. Three stents were placed at [facility] in 2004 and one stent was placed at [facility] in 2007.), , cholecystectomy, hysterectomy, other (Tubal ligation) - Social History Smoking Status: Former smoker Smokeless Tobacco Status: No Alcohol use: none Drug use: none - Family History Father Adopted: No Family Member Ethnicity: Non- Living Status: Hx Family Cardiac Disorders: Yes Mother Adopted: No Family Member Ethnicity: Non- Living Status: Hx Family Cardiac Disorders: No Hx Family Respiratory Disorders: No Hx Family Cancer: No Hx Family GI Disorders: No Hx Family Endocrine Disorder: Yes Hx Family Neuromuscular Disorders: No Hx Family Neurologic Disorders: No Hx Family HEENT Disorders: No Hx Family Autoimmune Disorders: No - Additional Family History Additional family history: Father with cardiomyopathy CHF AICD, mother with diabetes Internal Medicine - H&P: Meds Budesonide/Formoterol 160/4.5 [Symbicort] 2 puff IH BIDR 04/21/15 [History] Gabapentin [Neurontin] 800 mg PO TID 04/21/15 [History] Levothyroxine [Synthroid] 100 mcg PO QAM 04/21/15 [History] Metformin [Glucophage] 1,000 mg PO BID 04/21/15 [History] Tiotropium [Spiriva] 18 mcg IH QAM 04/21/15 [History] Amlodipine Besylate 2.5 mg PO DAILY 12/27/15 [History] Atorvastatin Calcium [Lipitor] 40 mg PO DAILY 02/04/16 [History] Buspirone HCl [Buspar] 15 mg PO TID 02/04/16 [History] Montelukast [Singulair] 10 mg PO HS 02/04/16 [History] Isosorbide MONOnitrate (24 HR) [Imdur] 90 mg PO QAM #90 tab.er.24h 02/05/16 [Rx] Oxygen 2 l NS AD PRN 03/17/16 [History] Insulin Glargine [Lantus] 80 unit SQ QPM 03/25/16 [History] Insulin Glargine [Lantus] 90 unit SQ QAM 03/25/16 [History] Albuterol Sulfate [Albuterol Inhaler] 2 puff IH Q4HR PRN 05/01/16 [History] Citalopram Hydrobromide [Citalopram HBr] 40 mg PO DAILY 05/01/16 [History] Ipratropium/Albuterol Neb [Duoneb] 3 ml IH Q6H PRN 05/01/16 [History] Raloxifene [Evista] 60 mg PO DAILY 05/01/16 [History] TraMADol [Ultram] 50 mg PO BID 05/01/16 [History] Aripiprazole [Abilify] 10 mg PO HS tablet 05/03/16 [Rx] ClonazePAM [Klonopin] 1 mg PO TID tablet 05/03/16 [Rx] Dicyclomine HCl [Bentyl] 20 mg PO TID 06/15/16 [History] Fenofibrate Nanocrystallized [Tricor] 145 mg PO DAILY 06/15/16 [History] Promethazine [Phenergan] 25 mg PO Q12H PRN 06/15/16 [History] Clopidogrel [Plavix] 75 mg PO QAM tablet 06/18/16 [Rx] Buprenorphine [Butrans] 10 mcg TD QWEEK 06/27/16 [History] Ondansetron HCl [Zofran] 4 mg PO Q6H PRN #20 tablet 08/07/16 [Rx] Baclofen [Lioresal] 10 mg PO TID 08/24/16 [History] Metoprolol Tartrate 25 mg PO BID 08/24/16 [History] Omeprazole [PriLOSEC] 20 mg PO BID 08/24/16 [History] Bumetanide 2 mg PO BID 11/21/16 [History] Meclizine [Antivert] 25 mg PO DAILY PRN 11/21/16 [History] Metolazone [Zaroxolyn] 5 mg PO Q48H 11/21/16 [History] Nortriptyline [Pamelor] 25 mg PO HS 11/21/16 [History] Oxycodone HCl/Acetaminophen [Percocet 5-325 mg Tablet] 1 tab PO Q4H PRN [History] Potassium Chloride 40 meq PO BID 11/21/16 [History] Docusate [Colace] 100 mg PO DAILY #30 capsule 11/24/16 [Rx] Polyethylene Glycol 3350 [MiraLAX Powder Bulk 17.9 Oz] 1 scoop PO DAILY #510 gm 11/24/16 [Rx] Aspirin 81 mg PO DAILY #60 tab.chew 12/06/16 [Rx] Allergies No Known Allergies Allergy (Verified 11/12/16 02:17) All Systems PM: A 10-system review of systems was performed and is negative for pertinent findings except as documented above in the HPI. Review of systems: Leg pain, headache, denies any nausea, no abdominal pain, no dysuria. Other systems out of the 10 review where negative. Denies any weakness in any of her limbs - Constitutional Vitals: Temp Pulse Resp BP Pulse Ox 97.7 F 86 18 172/78 93 12/14/16 00:10 12/14/16 00:10 12/14/16 00:10 12/14/16 00:10 12/14/16 00:10 General appearance: Present: A&O X 3, obese - Head Head exam: Present: atraumatic, normocephalic - Eye Eye exam: Present: PERRL, conjuntiva pink, sclera anicteric Pupils: Present: PERRL - Neck Neck exam general surgery: Present: supple, trachea midline. Absent: lymphadenopathy - Respiratory Respiratory exam: Present: CTAB. Absent: accessory muscle use, rales, rhonchi, wheezes - Cardiovascular Cardiovascular exam: Present: RRR, +S1, +S2. Absent: diastolic murmur, gallop, rubs, systolic murmur - GI/Abdominal GI/Abdominal exam: Present: normal bowel sounds, soft, no peritoneal signs. Absent: distended, tenderness - Extremities Exam Extremities exam: Present: pedal edema, tenderness (Tenderness in both shins with extensive area of of erythema), warm, radial pulses palpable and symetrical. Absent: calf tenderness, cyanotic - Neurological Exam Neurological exam: Present: CN II-XII intact, oriented X3, no focal deficits. Absent: pronater drift, facial droop, speech deficit Additional comments: Numbness in lower facial area on the left side, arm and leg, no weakness - Skin Skin exam: Present: dry, intact Internal Med - H&P Results - Labs CBC & Chem 7: 12/14/16 00:36 12/14/16 00:36
[2016-12-14] MEDS ORDERED: BUPRENORPHINE 10 MCG TP SCH (02:15)
[2016-12-14] MEDS ORDERED: Ipratropium/Albuterol Neb 3 ML IH PRN (02:19)
[2016-12-14] MEDS: *HR* Morphine 2 MG/ML SYRINGE IVP PRN ×2 (02:51→06:49)
[2016-12-14] MEDS: ceFAZolin 1,000 MG in D5% in Water (Mini-Bag+) 100 ML IVPB SCH ×2 (02:52→09:23)
[2016-12-14] MEDS: Ondansetron 4 MG/2 ML VIAL IVP PRN ×2 (02:52→12:10)
[2016-12-14 04:27] LABS: Bilirubin,Urine Negative (Negative); Blood,Urine Negative (Negative); Clarity,Urine Clear (Clear); Color,Urine Yellow (Yellow); Glucose,Urine (UA) Normal (Normal); Ketones,Urine Negative (Negative); Leukocyte Esterase,Urine Negative (Negative); Nitrite,Urine Negative (Negative); PH,Urine 6.5 pH Units (5.0-8.0); Protein,Urine Negative (Neg-Trace); Specific Gravity,Urine 1.013 (1.010-1.025); Urobilinogen,Urine Normal (Normal)
[2016-12-14 06:19] LABS: BUN/Creatinine Ratio 35 (6-26); Blood Urea Nitrogen 27 mg/dL (7-20); Calcium 9.7 mg/dL (8.6-10.8); Carbon Dioxide 34 mEq/L (19-29); Chloride 95 mEq/L (98-109); Glucose 143 mg/dL (70-99); Magnesium 1.2 mg/dL (1.6-2.6); Osmolality,Calculated 298 (280-300); Potassium 2.9 mEq/L (3.5-4.5); Sodium 140 mEq/L (136-145); eGFR For African Americans > 60 (> 60); eGFR For Non-African Americans > 60 (> 60)
--- NOTE | 2016-12-14 07:14 | Electrocardiograph Report ---
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
[2016-12-14] MEDS: Insulin LISPRO 300 UNITS/3 ML VIAL SQ SCH ×2 (07:42→11:59)
[2016-12-14] MEDS ORDERED: *HR* Heparin 5,000 UNIT/ML VIAL SQ SCH (08:00)
[2016-12-14] MEDS ORDERED: Magnesium Sulfate 2 GM in D5% in Water 100 ML IVPB ONE (08:20)
[2016-12-14] MEDS ORDERED: Isosorbide MONOnitrate (24 HR) 30 MG TAB.ER.24H PO SCH (09:00)
[2016-12-14] MEDS ORDERED: NON-FORMULARY MEDICATION 1 EACH EACH (Insulin Glargine [Lantus] 90 UNIT) SQ SCH (09:00)
[2016-12-14] MEDS ORDERED: Aspirin 81 MG TAB.CHEW PO SCH (09:00)
[2016-12-14] MEDS ORDERED: amLODIPine 5 MG TABLET PO SCH (09:00)
[2016-12-14] MEDS ORDERED: Fenofibrate 54 MG TABLET PO SCH (09:00)
[2016-12-14] MEDS ORDERED: Insulin DETEMIR 100 UNIT/ML X5UNITS SQ SCH ×2 (09:00→18:00)
[2016-12-14] MEDS: clonazePAM 1 MG TABLET PO SCH ×2 (09:31→17:08)
[2016-12-14] MEDS: traMADol 50 MG TABLET PO PRN ×2 (09:32→17:08)
[2016-12-14] MEDS: Gabapentin 400 MG CAPSULE PO SCH ×2 (09:32→17:08)
[2016-12-14 15:15] VITALS: BP 134/75
--- NOTE | 2016-12-14 16:41 | Discharge Summary ---
Date of Encounter: 12/14/16 Time of Encounter: 15:30 - Discharge Diagnosis (1) Left sided numbness Priority: Primary Status: Ruled-out Comments: CVA ruled out. Head CT negative. MRI negative. She was treated for hypokalemia and hypomagnesemia. No focal neurological weakness is present on examination. (2) TIA (transient ischemic attack) Priority: Primary Status: Resolved Qualifiers: Transient cerebral ischemia type: unspecified Qualified Code(s): G45.9 - Transient cerebral ischemic attack, unspecified (3) Hypomagnesemia Priority: Primary Status: Resolved (4) Hypokalemia Priority: Primary Status: Resolved (5) Cellulitis of both lower extremities Priority: Primary Status: Ruled-out Comments: Physical examination not consistent with acute cellulitis. Consistent with chronic venous stasis. (6) Chronic venous stasis dermatitis of both lower extremities Priority: Secondary Status: Chronic Comments: Physical examination of her lower extremities are consistent with her normal. No indication of acute infection or cellulitis. (7) CAD (coronary artery disease) Priority: Secondary Status: Chronic Comments: Patient denied chest pain throughout this admission Qualifiers: Coronary Disease-Associated Artery/Lesion type: [place] artery [place] vs. transplanted heart: [place] heart Associated angina: without angina Qualified Code(s): I25.10 - Atherosclerotic heart disease of [place] coronary artery without angina pectoris (8) Insulin dependent diabetes mellitus Priority: Secondary Status: Chronic Comments: Uncontrolled with a recent A1c of 9.1%. Patient stating that her sugars have been running over 400 the last couple weeks and she also has noticed increased blurred vision when her sugars are high. We will increase her home dosages and have her follow up outpatient. She has a lengthy history of noncompliance. (9) Anxiety Priority: Secondary Status: Chronic (10) Depression Priority: Secondary Status: Chronic Comments: Flat affect but denied suicidal ideation. She does endorse stress over her son being incarcerated but again denies suicidal ideation. Qualifiers: Depression Type: unspecified Qualified Code(s): F32.9 - Major depressive disorder, single episode, unspecified (11) GERD (gastroesophageal reflux disease) Priority: Secondary Status: Chronic Comments: Denies current symptoms Qualifiers: Esophagitis presence: esophagitis presence not specified Qualified Code(s) : K21.9 - Gastro-esophageal reflux disease without esophagitis (12) COPD (chronic obstructive pulmonary disease) Priority: Secondary Status: Chronic Comments: No acute exacerbation. Patient denies shortness of breath above her norm. On room air at time of discharge. Qualifiers: COPD type: unspecified COPD Qualified Code(s): J44.9 - Chronic obstructive pulmonary disease, unspecified (13) DVT prophylaxis Priority: Primary Status: Acute Comments: Subcutaneous heparin while admitted (14) Sleep apnea Priority: Secondary Status: Chronic Qualifiers: Sleep apnea type: unspecified type Qualified Code(s): G47.30 - Sleep apnea , unspecified (15) Hypothyroidism Priority: Secondary Status: Chronic Comments: TSH checked on 09/22/16, normal Qualifiers: Hypothyroidism type: acquired Qualified Code(s): E03.9 - Hypothyroidism, unspecified (16) UTI (urinary tract infection) Priority: Primary Status: Ruled-out Comments: Ruled out. Patient endorsing dysuria, urinalysis negative. Qualifiers: Urinary tract infection type: site unspecified Hematuria presence: without hematuria Qualified Code(s): N39.0 - Urinary tract infection, site not specified (17) HTN (hypertension) Priority: Secondary Status: Chronic Comments: Controlled on her regular home medications. Follow up outpatient Qualifiers: Hypertension type: essential hypertension Qualified Code(s): I10 - Essential (primary) hypertension (18) Tobacco use disorder Priority: Secondary Status: Resolved (19) Chronic respiratory failure with hypoxia Priority: Secondary Status: Chronic Comments: Tolerated room air at time of discharge. (20) Chronic diastolic CHF (congestive heart failure) Priority: Secondary Status: Chronic Comments: No acute exacerbation. Euvolemic on examination. No pedal edema. Patient denied shortness of breath. (21) Polypharmacy Priority: Secondary Status: Chronic (22) History of nonadherence to medical treatment Priority: Secondary Status: Chronic (23) Morbid obesity with BMI of 45.0-49.9, adult Priority: Secondary Status: Chronic - Discharge Medications Prescriptions: Insulin LISPRO [HumaLOG] 0 units SQ TIDAC #1 vial Lancets/Blood Glucose Strips [Fora [id number] Strp-Lnct] 1 each QID # 120 combo..pkg Ondansetron HCl 8 mg PO Q12H PRN #15 tablet PRN Reason: Nausea And Vomiting Syring-Needl,Disp,Insul,0.3 ml [Insulin Syringe] 1 each [facility] #120 disp.syrin Home Medications: Budesonide/Formoterol 160/4.5 [Symbicort] 2 puff IH BIDR 04/21/15 [History] Gabapentin [Neurontin] 800 mg PO TID 04/21/15 [History] Levothyroxine [Synthroid] 100 mcg PO QAM 04/21/15 [History] Metformin [Glucophage] 1,000 mg PO BID 04/21/15 [History] Tiotropium [Spiriva] 18 mcg IH QAM 04/21/15 [History] Amlodipine Besylate 2.5 mg PO DAILY 12/27/15 [History] Atorvastatin Calcium [Lipitor] 40 mg PO DAILY 02/04/16 [History] Buspirone HCl [Buspar] 15 mg PO TID 02/04/16 [History] Montelukast [Singulair] 10 mg PO HS 02/04/16 [History] Isosorbide MONOnitrate (24 HR) [Imdur] 90 mg PO QAM #90 tab.er.24h 02/05/16 [Rx] Oxygen 2 l NS AD PRN 03/17/16 [History] Insulin Glargine [Lantus] 80 unit SQ QPM 03/25/16 [History] Insulin Glargine [Lantus] 90 unit SQ QAM 03/25/16 [History] Albuterol Sulfate [Albuterol Inhaler] 2 puff IH Q4HR PRN 05/01/16 [History] Citalopram Hydrobromide [Citalopram HBr] 40 mg PO DAILY 05/01/16 [History] Ipratropium/Albuterol Neb [Duoneb] 3 ml IH Q6H PRN 05/01/16 [History] Raloxifene [Evista] 60 mg PO DAILY 05/01/16 [History] TraMADol [Ultram] 50 mg PO BID 05/01/16 [History] Aripiprazole [Abilify] 10 mg PO HS tablet 05/03/16 [Rx] ClonazePAM [Klonopin] 1 mg PO TID tablet 05/03/16 [Rx] Dicyclomine HCl [Bentyl] 20 mg PO TID 06/15/16 [History] Fenofibrate Nanocrystallized [Tricor] 145 mg PO DAILY 06/15/16 [History] Promethazine [Phenergan] 25 mg PO Q12H PRN 06/15/16 [History] Clopidogrel [Plavix] 75 mg PO QAM tablet 06/18/16 [Rx] Buprenorphine [Butrans] 10 mcg TD QWEEK 06/27/16 [History] Ondansetron HCl [Zofran] 4 mg PO Q6H PRN #20 tablet 08/07/16 [Rx] Baclofen [Lioresal] 10 mg PO TID 08/24/16 [History] Metoprolol Tartrate 25 mg PO BID 08/24/16 [History] Omeprazole [PriLOSEC] 20 mg PO BID 08/24/16 [History] Bumetanide 2 mg PO BID 11/21/16 [History] Meclizine [Antivert] 25 mg PO DAILY PRN 11/21/16 [History] Nortriptyline [Pamelor] 25 mg PO HS 11/21/16 [History] Oxycodone HCl/Acetaminophen [Percocet 5-325 mg Tablet] 1 tab PO Q4H PRN [History] Potassium Chloride 40 meq PO BID 11/21/16 [History] Docusate [Colace] 100 mg PO DAILY #30 capsule 11/24/16 [Rx] Polyethylene Glycol 3350 [MiraLAX Powder Bulk 17.9 Oz] 1 scoop PO DAILY #510 gm 11/24/16 [Rx] Aspirin 81 mg PO DAILY #60 tab.chew 12/06/16 [Rx] Insulin LISPRO [HumaLOG] 0 units SQ TIDAC #1 vial 12/14/16 [Rx] Lancets/Blood Glucose Strips [Fora [id number] Strp-Lnct] 1 each QID # 120 combo..pkg 12/14/16 [Rx] Nystatin POWDER [Nystop] 1 appl TP BID 12/14/16 [History] Ondansetron HCl 8 mg PO Q12H PRN #15 tablet 12/14/16 [Rx] Syring-Needl,Disp,Insul,0.3 ml [Insulin Syringe] 1 each ACHS #120 disp.syrin 12/14/16 [Rx] Allergies/Adverse Reactions: Allergies No Known Allergies Allergy (Verified 11/12/16 02:17) Procedures/tests Complete & Pending: Procedures Performed prior 72 hours Category Date Time Status MR head/brain wo con [MR] Routine MRI 12/14/16 02:03 Draft ECG 12 lead ECG [ECG] Routine Y 12/14/16 05:00 Completed Date of admission: 12/14/16 01:41 Primary care physician: Corey Waddell, Consults: 12/14/16 11:20 Consult to Band Saw Operator [CONS] Routine Reason for SW Consult: Re-admission Discharging clinician: Keyanna Irizarry Anticipated date of discharge: 12/14/16 - Patient Status Disposition: Home, Self-Care Condition: Fair Functional capacity at discharge: independent ambulation Overall status at discharge: patient is back to baseline - Discharge Instructions Instructions: Ondansetron (By mouth), Insulin Lispro (Injection), Transient Ischemic Attack (DC), Hypokalemia (DC) Follow Up With: Corey Waddell DO [Primary Care Provider] - 12/24/16 2:30 pm Additional Instructions: follow up with primary care provider as scheduled - Diet and Activity Activity: increase activity as tolerated Diet: diabetic diet, low fat, low cholesterol, low salt diet, other (Fluid resection 1800 mL per day) Hospital course: Ms. Lynch is a 61 year old female with extensive past medical history including diastolic heart failure, COPD, CAD status post stents, diabetes, GERD , hyperlipidemia, hypertension, hypothyroidism, TIA, venous stasis, panic disorder, chronic back pain, bipolar disorder, former tobacco abuse. Patient presents emergency department with a chief complaint of left-sided numbness in her face, arm, and her leg accompanying with tingling this started on the night prior to presentation after she spoke to her son who is currently incarcerated. Workup in the emergency department revealing hypokalemia and hypomagnesemia. Head CT negative. Patient was admitted to the hospitalist service for further evaluation and management. Brain MRI ruled out acute infarct. She had no focal neurological weakness is present on examination. She did state that her vision was becoming more blurry than usual over the past several weeks but also stated that her glucoses have been running above 400 at home. It appears as if she is only on a basal insulin at home this is likely due to noncompliance however she was started on rapid acting lispro 3 times a day before meals with low-dose sliding scale. She was able to tolerate a regular diet during this admission. Urinalysis negative. Patient stating she was started on Bumex and metolazone over the past couple weeks. Will have her hold her metolazone upon discharge given that this can cause hypo-kalemia and hypomagnesemia. We will allow her to resume her Bumex. She is instructed to follow up outpatient with her primary care team regarding further titration of her diuretics. She was again educated on sodium and fluid are strict diets but readily endorses noncompliance. She denied chest pain or shortness of breath above her norm during this admission. She was discharged home in stable condition with close outpatient follow-up recommended. Hypokalemia and hypomagnesemia both resolved. Follow up outpatient regarding metolazone. ITS Impressions Head CT 12/14/16 00:22 IMPRESSION: No acute intracranial abnormality. D/ / Horace Castle MD / Horace Castle MD Interpreting Provider: Horace Castle MD Brain MRI 12/14/16 02:03 IMPRESSION: Mild chronic small vessel ischemic disease. No acute brain parenchymal abnormality. There are no areas of restricted diffusion to suggest an acute ischemic event. D/ / 12/14/2016 11:01:37 Naheed Founatin MD / tamie Interpreting Provider: Naheed Fountain MD - Time Spent with Patient Total time spent providing and/or coordinating discharge services: - Constitutional Vitals: Temp Pulse Resp BP Pulse Ox 97.7 F 64 15 134/75 95 12/14/16 15:12 12/14/16 15:12 12/14/16 15:12 12/14/16 15:12 12/14/16 15:12 General appearance: Present: A&O X 3, morbidly obese, pleasant, no acute distress, answers questions appropriately - Head Head exam: Present: atraumatic, normocephalic - Eye Eye exam: Present: PERRL, conjuntiva pink, sclera anicteric Pupils: Present: PERRL - Neck Neck exam general surgery: Present: supple, trachea midline. Absent: lymphadenopathy - Respiratory Respiratory exam: Present: decreased breath sounds. Absent: accessory muscle use, rales, respiratory distress, rhonchi, wheezes - Cardiovascular Cardiovascular exam: Present: RRR, +S1, +S2. Absent: diastolic murmur, gallop, rubs, systolic murmur - GI/Abdominal GI/Abdominal exam: Present: normal bowel sounds, soft, no peritoneal signs. Absent: distended, tenderness - Extremities Exam Extremities exam: Present: warm, radial pulses palpable and symetrical. Absent : calf tenderness, cyanotic, pedal edema - Neurological Exam Neurological exam: Present: alert, CN II-XII intact, oriented X3, no focal deficits, strengths equal and symetr throughout. Absent: pronater drift, facial droop, speech deficit - Skin Skin exam: Present: dry, intact, normal color, warm
--- NOTE | 2016-12-14 16:47 | Electrocardiograph Report ---
[address] [place] [address] Test Date: 2016-12-14 Pat Name: Claire Lynch Department: 113 Room: 3B Gender: F Cardiac Cath Lab Technologist: ABIGAIL : 1955 Requested By: Aristides Plata Order Number: [id number] Reading MD: Kae Avila Measurements Intervals [place] Rate: 71 P: 68 TX: 166 QRS: 36 QRSD: 97 T: 29 QT: 453 QTc: 475 Interpretive Statements SINUS RHYTHM LOW QRS VOLTAGE IN PRECORDIAL LEADS POSSIBLE INFERIOR MYOCARDIAL INFARCTION, PROBABLY OLD ANTEROSEPTAL MYOCARDIAL INFARCTION, OF INDETERMINATE AGE Electronically Signed On 12-14-2016 16:46:13 EDT by Kae Avila
[2016-12-14] MEDS ORDERED: NON-FORMULARY MEDICATION 1 EACH EACH (Insulin Glargine [Lantus] 80 UNIT) SQ SCH (18:00)
[2016-12-14 18:28] LABS: Magnesium 1.6 mg/dL (1.6-2.6); Potassium 3.8 mEq/L (3.5-4.5)
[2016-12-14] MEDS ORDERED: ARIPiprazole 10 MG TABLET PO SCH (21:00)
[2016-12-14] MEDS ORDERED: Insulin LISPRO 300 UNITS/3 ML VIAL SQ SCH (21:00)
[2016-12-15 19:46] LABS: Enterococcus by PCR Not Detected (Not Detect); blaKPC Carbapenem-Resist Gene Not Detected (Not Detect); mecA Methicillin-Resist Gene Not Detected (Not Detect); vanA/B Vancomycin-Resist Genes Not Detected (Not Detect)
[2016-12-15 19:48] LABS: Acinetobacter baumannii by PCR Not Detected (Not Detect); Candida albicans by PCR Not Detected (Not Detect); Candida glabrata by PCR Not Detected (Not Detect); Candida krusei by PCR Not Detected (Not Detect); Candida parapsilosis by PCR Not Detected (Not Detect); Candida tropicalis by PCR Not Detected (Not Detect); Escherichia coli by PCR Not Detected (Not Detect); Klebsiella oxytoca by PCR Not Detected (Not Detect); Klebsiella pneumoniae by PCR Not Detected (Not Detect); Pseudomonas aeruginosa by PCR Not Detected (Not Detect); Serratia marcescens by PCR Not Detected (Not Detect); Staphylococcus aureus by PCR Not Detected (Not Detect); Streptococcus agalactiae(B)PCR Not Detected (Not Detect); Streptococcus by PCR Not Detected (Not Detect); Streptococcus pneumoniae PCR Not Detected (Not Detect); Streptococcus pyogenes (A) PCR Not Detected (Not Detect)
== END 2016-12-14 18:59 | disposition home or self-care (01) ==
LOC: 3BNU 00:09 → EMEROO 00:09 → SUATTDRO 01:41 → 3BNU 02:15
PROVIDERS: ADMIT Internal Medicine; ATTEND Nurse Practitioner Family

== ENCOUNTER 2016-12-31 01:34 | Observation (INO) ==
[2016-12-31] MEDS ORDERED: Aspirin 81 MG TAB.CHEW PO STA (01:52)
[2016-12-31] MEDS ORDERED: *HR* Promethazine 25 MG/ML VIAL IVP ONE (01:56)
--- NOTE | 2016-12-31 01:56 | Emergency Department Note ---
Disposition Clinical Impression: Chest pain Qualifiers: Chest pain type: unspecified Qualified Code(s): R07.9 - Chest pain, unspecified Disposition: Admitted As Inpatient Condition: Good Time of Disposition: 04:41 General Adult HPI - General Chief complaint: ED Chest Pain Stated complaint: R arm pain, CP,SOB,nausea Time Seen by Provider: 12/31/16 01:39 Source: patient Limitations: no limitations Nursing Notes Reviewed: Yes Vital Signs Reviewed: Yes - History of Present Illness HPI Narrative: Female patient states she was awoken from sleep to right-sided chest pain and pain down her right arm. She states she was nauseated with this. States she feels like previous heart attack she has had. She still describes the pain as a burning sensation in her right chest. There is no radiation. Having pain in her right arm. There are no alleviating or provoking factors. Pain Scale: 7 - Related Data Home Medications Medication Instructions Recorded Confirmed Budesonide/Formoterol 160/4.5 2 puff IH BIDR 04/21/15 12/31/16 [Symbicort] Gabapentin [Neurontin] 800 mg PO TID 04/21/15 12/31/16 Levothyroxine [Synthroid] 100 mcg PO QAM 04/21/15 12/31/16 Metformin [Glucophage] 1,000 mg PO BID 04/21/15 12/31/16 Tiotropium [Spiriva] 18 mcg IH QAM 04/21/15 12/31/16 Amlodipine Besylate 2.5 mg PO DAILY 12/27/15 12/31/16 Atorvastatin Calcium [Lipitor] 40 mg PO DAILY 02/04/16 12/31/16 Buspirone HCl [Buspar] 15 mg PO TID 02/04/16 12/31/16 Montelukast [Singulair] 10 mg PO HS 02/04/16 12/31/16 Oxygen 2 l NS AD PRN 03/17/16 12/31/16 Insulin Glargine [Lantus] 80 unit SQ QPM 03/25/16 12/31/16 Insulin Glargine [Lantus] 90 unit SQ QAM 03/25/16 12/31/16 Albuterol Sulfate [Albuterol 2 puff IH Q4HR PRN 05/01/16 12/31/16 Inhaler] Citalopram Hydrobromide 40 mg PO DAILY 05/01/16 12/31/16 [Citalopram HBr] Ipratropium/Albuterol Neb [Duoneb] 3 ml IH Q6H PRN 05/01/16 12/31/16 Raloxifene [Evista] 60 mg PO DAILY 05/01/16 12/31/16 TraMADol [Ultram] 50 mg PO BID 05/01/16 12/31/16 Fenofibrate Nanocrystallized 145 mg PO DAILY 06/15/16 12/31/16 [Tricor] Promethazine [Phenergan] 25 mg PO Q12H PRN 06/15/16 12/31/16 Buprenorphine [Butrans] 10 mcg TD QWEEK 06/27/16 12/31/16 Baclofen [Lioresal] 10 mg PO TID 08/24/16 12/31/16 Metoprolol Tartrate 25 mg PO BID 08/24/16 12/31/16 Omeprazole [PriLOSEC] 20 mg PO BID 08/24/16 12/31/16 Bumetanide 2 mg PO BID 11/21/16 12/31/16 Meclizine [Antivert] 25 mg PO DAILY PRN 11/21/16 12/31/16 Oxycodone HCl/Acetaminophen 1 tab PO Q4H PRN 11/21/16 12/31/16 [Percocet 5-325 mg Tablet] Potassium Chloride 40 meq PO BID 11/21/16 12/31/16 Nystatin POWDER [Nystop] 1 appl TP BID 12/14/16 12/31/16 Isosorbide MONOnitrate (24 HR) 30 mg PO QAM 12/31/16 12/31/16 [Imdur] Magnesium Oxide [Magnesium] 800 mg PO BID 12/31/16 12/31/16 Vit D3/Folic Acid/B2/B6/B12 1 tab PO BID 12/31/16 12/31/16 Previous Rx's Medication Instructions Recorded Aripiprazole [Abilify] 10 mg PO HS tablet 05/03/16 ClonazePAM [Klonopin] 1 mg PO TID tablet 05/03/16 Clopidogrel [Plavix] 75 mg PO QAM tablet 06/18/16 Ondansetron HCl [Zofran] 4 mg PO Q6H PRN #20 tablet 08/07/16 Aspirin 81 mg PO DAILY #60 tab.chew 12/06/16 Allergies Allergy/AdvReac Type Severity Reaction Status Date / Time No Known Allergies Allergy Verified 11/12/16 02:17 All systems ED: reviewed and negative except as stated. Constitutional: Denies: fever, chills ENT ED: Denies: congestion Cardiovascular: Reports: chest pain. Denies: palpitations, syncope Respiratory: Denies: cough, dyspnea Gastrointestinal: Reports: nausea (Associated with the chest pain). Denies: abdominal pain, vomiting, diarrhea Genitourinary: Denies: urgency, dysuria, frequency, hematuria Musculoskeletal: Denies: back pain, neck pain Past Medical History - Past Medical History Attestation: Yes The following information was validated with the patient. 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: bilateral tubal ligation - Social History Smoking Status: Former smoker Smokeless Tobacco Status: No Alcohol use: Reports: none Drug use: Reports: none Physical Exam - General Limitations: no limitations General appearance: alert, in no apparent distress - Head Head exam: atraumatic, normocephalic - Eye Eye exam: Present: normal appearance, PERRL, EOMI - ENT ENT exam: normal exam, normal oropharynx, mucous membranes moist - Neck Neck exam: Present: normal inspection, full ROM, trachea midline - Chest Chest inspection: Present: normal inspection, symmetric chest wall rise - Respiratory Respiratory exam: Present: normal lung sounds bilaterally. Absent: respiratory distress - Cardiovascular Cardiovascular exam: Present: regular rate, normal rhythm, normal heart sounds - Abdominal Exam Abdominal exam: Present: soft, Non-Tender - Extremities Exam Extremities exam: Present: normal inspection, full ROM, normal capillary refill , pedal edema (Mild.) - Back Exam Back exam: Present: normal inspection, full ROM. Absent: tenderness - Neurological Exam Neurological exam: Present: alert, oriented X3 - Psychiatric Psychiatric exam: Present: normal affect, normal mood - Skin Skin exam: Present: warm, dry, intact, other (Skin changes to her bilateral lower extremities consistent with venous stasis.) Course Course Narrative: Patient states she woke up with right-sided chest pain that was radiating down her right arm. Also nauseated. She states that she has had several heart attacks before with stent placements in this feels the same. She did have a stress test one month ago. Her last catheter was approximately 1 year ago. Her last stent was in 2007. She is resting comfortably in bed at this time and does not appear to be in any distress. She states that she takes a baby aspirin daily. We will give her a full dose aspirin while she is here and do a cardiac workup. Her lung sounds are clear heart tones are normal. She does have some mild edema to her lower extremities with venous stasis changes to the skin. She otherwise appears well. Pt had a stress test on 11/23 that was read as normal. - Reevaluation(s) Reevaluation #1: On reevaluation patient was asleep in bed. She has a history of cardiac stents. Her story is concerning for ACS. Her initial troponin is negative however her pain started immediately prior to arrival here. She is obese and does not appear to be in great health. We will admit patient for further cardiac workup. - Consultations Consultation #1: Admitted in stable condition to Dr Julian Time: 03:43 Vital Signs Temperature 98.1 F 12/31/16 01:35 Pulse Rate 72 12/31/16 01:35 Respiratory Rate 18 12/31/16 01:35 Blood Pressure 153/80 12/31/16 01:35 O2 Sat by Pulse Oximetry 98 12/31/16 01:35 Temperature 97.6 F 12/31/16 04:50 Pulse Rate 72 12/31/16 04:50 Respiratory Rate 15 12/31/16 04:50 Blood Pressure 143/78 12/31/16 04:50 O2 Sat by Pulse Oximetry 93 12/31/16 04:50 Oxygen Delivery Oxygen Delivery Nasal Cannula Medical Decision Making - Medical Records Medical records reviewed: Yes I reviewed the patient's medical records. - Lab Data Lab results reviewed: Yes I reviewed the patient's lab results. Result diagrams: 12/31/16 02:09 12/31/16 02:09 Lab Results 12/31/16 12/31/16 12/31/16 Range/Units 02:09 02:09 02:09 WBC 14.0 H (4.3-11.1) K/mcL RBC 4.69 (3.82-4.97) M/mcL Hgb 12.1 (11.5-15.4) g/dL Hct 38.8 (35.3-44.9) % MCV 82.7 L (83.0-100.0) fL MCH 25.8 L (28.0-33.3) pg MCHC 31.2 L (31.6-35.5) g/dL RDW 17.7 H (11.5-14.5) % Plt Count 230 (140-400) K/mcL MPV 11.2 (9.4-12.4) fL Immature Gran % 1.6 (0-4) % Seg Neutrophils % 66.7 % Lymphocytes % 24.6 % Monocytes % 4.6 % Eosinophils % 1.9 % Basophils % 0.6 % Neutrophils # 9.3 H (1.6-8.9) K/mcL Lymphocytes # 3.4 (0.6-4.6) K/mcL Monocytes # 0.7 (0.0-1.3) K/mcL Eosinophils # 0.3 (0.0-0.6) K/mcL Basophils # 0.1 (0.0-0.2) K/mcL Nucleated RBCs/100 WBC 0.3 H (0) /100 WBC PT 10.4 (9.4-12.1) Seconds INR 1.0 APTT 27.9 (26.0-36.0) Seconds Sodium 138 (136-145) mEq/L Potassium 2.7 L (3.5-4.5) mEq/L Chloride 88 L (98-109) mEq/L Carbon Dioxide 36 H (19-29) mEq/L BUN 34 H (7-20) mg/dL Creatinine 1.10 (0.57-1.11) mg/dL Est GFR ( Amer) > 60 (> 60) Est GFR (Non-Af Amer) 51 L (> 60) BUN/Creatinine Ratio 31 H (6-26) Glucose 75 (70-99) mg/dL Calculated Osmolality 292 (280-300) Calcium 9.6 (8.6-10.8) mg/dL Troponin I (0-0.03) ng/mL 12/31/16 Range/Units 02:09 WBC (4.3-11.1) K/mcL RBC (3.82-4.97) M/mcL Hgb (11.5-15.4) g/dL Hct (35.3-44.9) % MCV (83.0-100.0) fL MCH (28.0-33.3) pg MCHC (31.6-35.5) g/dL RDW (11.5-14.5) % Plt Count (140-400) K/mcL MPV (9.4-12.4) fL Immature Gran % (0-4) % Seg Neutrophils % % Lymphocytes % % Monocytes % % Eosinophils % % Basophils % % Neutrophils # (1.6-8.9) K/mcL Lymphocytes # (0.6-4.6) K/mcL Monocytes # (0.0-1.3) K/mcL Eosinophils # (0.0-0.6) K/mcL Basophils # (0.0-0.2) K/mcL Nucleated RBCs/100 WBC (0) /100 WBC PT (9.4-12.1) Seconds INR APTT (26.0-36.0) Seconds Sodium (136-145) mEq/L Potassium (3.5-4.5) mEq/L Chloride (98-109) mEq/L Carbon Dioxide (19-29) mEq/L BUN (7-20) mg/dL Creatinine (0.57-1.11) mg/dL Est GFR ( Amer) (> 60) Est GFR (Non-Af Amer) (> 60) BUN/Creatinine Ratio (6-26) Glucose (70-99) mg/dL Calculated Osmolality (280-300) Calcium (8.6-10.8) mg/dL Troponin I 0.01 (0-0.03) ng/mL - Radiology Data Radiology results reviewed: Yes I reviewed the patient's radiology results. Chest X-Ray 12/31/16 01:40 IMPRESSION: No acute process. D/ / Alissa Katz MD / Alissa Katz MD Interpreting Provider: Alissa Katz MD - EKG Data EKG #1 EKG attestation: Yes I reviewed and interpreted this EKG. EKG results narrative: Normal sinus rhythm at a rate of 78. IA interval is 144. QRS duration is 86. QT is 419. QTC is 452. No signs of acute ischemia. No significant changes from previous EKG dated 12/16/2016. Attestation Statement - Attestation Attestation: Dr Henderson note: Patient was seen in conjunction with resident Dr. Rubia Leal; please see her charting for complete documentation. I have spent [id number] and with the patient and I agree with patient's treatment and disposition; ekg and troponin results reviewed; pt resting comfortably @ time of admission; h/o CAD, and recent stress test results noted, but pt's pain similar to pain she had during her NC approx 8-10 years ago;
[2016-12-31] MEDS ORDERED: *HR* FentaNYL (PF) 100 MCG/2 ML VIAL IVP ONE (01:57)
[2016-12-31 02:18] LABS: Basophils # 0.1 K/mcL (0.0-0.2); Basophils % 0.6 %; Eosinophils # 0.3 K/mcL (0.0-0.6); Eosinophils % 1.9 %; Hematocrit 38.8 % (35.3-44.9); Hemoglobin 12.1 g/dL (11.5-15.4); Immature Granulocytes % 1.6 % (0-4); Lymphocytes # 3.4 K/mcL (0.6-4.6); Lymphocytes % 24.6 %; Mean Corpuscular HGB Conc 31.2 g/dL (31.6-35.5); Mean Corpuscular Hemoglobin 25.8 pg (28.0-33.3); Mean Corpuscular Volume 82.7 fL (83.0-100.0); Mean Platelet Volume 11.2 fL (9.4-12.4); Monocytes # 0.7 K/mcL (0.0-1.3); Monocytes % 4.6 %; Neutrophils # 9.3 K/mcL (1.6-8.9); Nucleated Red Blood Cells 0.3 /100 WBC (0); Platelet Count 230 K/mcL (140-400); Red Blood Count 4.69 M/mcL (3.82-4.97); Red Cell Distribution Width 17.7 % (11.5-14.5); Segmented Neutrophils % 66.7 %
[2016-12-31 02:23] LABS: Prothrombin Time 10.4 Seconds (9.4-12.1)
[2016-12-31 02:26] LABS: Activated Partial Thrombo Time 27.9 Seconds (26.0-36.0)
[2016-12-31 02:31] LABS: BUN/Creatinine Ratio 31 (6-26); Blood Urea Nitrogen 34 mg/dL (7-20); Calcium 9.6 mg/dL (8.6-10.8); Carbon Dioxide 36 mEq/L (19-29); Chloride 88 mEq/L (98-109); Glucose 75 mg/dL (70-99); Osmolality,Calculated 292 (280-300); Potassium 2.7 mEq/L (3.5-4.5); Sodium 138 mEq/L (136-145); eGFR For African Americans > 60 (> 60); eGFR For Non-African Americans 51 (> 60)
[2016-12-31] MEDS ORDERED: Potassium Chloride Elixir 20 MEQ/15 ML UDC PO ONE ×2 (02:33→10:28)
[2016-12-31] MEDS ORDERED: Ondansetron 4 MG/2 ML VIAL IVP PRN (04:42)
[2016-12-31] MEDS ORDERED: Acetaminophen 325 MG TABLET PO PRN (04:42)
[2016-12-31] MEDS ORDERED: Naloxone 0.4 MG/ML INJ IVP PRN (04:42)
--- NOTE | 2016-12-31 06:03 | Internal Med History&Physical ---
<Joni Epstein - Last Filed: 12/31/16 07:01> Date of Encounter: 12/31/16 Time of Encounter: 05:15 Assessment and Plan (1) Chest pain Current visit: No Status: Acute -Extensive previous cardiac workup stress test on 11/23 normal, multiple EKGs which was normal. Chest x-ray no acute changes, echo 06/28/16 ejection fraction 65% otherwise unremarkable -Currently taking Plavix, last stent in 2007, unsure why she is still taking the medication -Right-sided chest pain with her presentation of constant squeezing pain and extensive previous cardiac workup less worrisome for coronary artery disease or acute event. We will not consult cardiology nor order an echo or extensive cardiac workup plan -Troponins 2 -D-dimer -no cardio consult Side Note: Patient takes an extensive amount of medication, was present while the nurse reviewed medication list with patient Qualifiers: Chest pain type: other chest pain Qualified Code(s): R07.89 - Other chest pain; R07.8 - Other chest pain (2) Diabetes Current visit: No Status: Chronic -continue home medication 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 mellitus type: type 2 Diabetes mellitus complication status: with other specified complication Diabetes mellitus long-term insulin use: unspecified long-term insulin use status Qualified Code(s): E11.69 - Type 2 diabetes mellitus with other specified complication (3) DVT prophylaxis Current visit: No Status: Acute (4) Leukocytosis Current visit: No Status: Acute -WBC 14. Is an elevation. Patient not septic -Only a small area of R inguinal inflammation. Thorough search of other skin infections-no results -No resent steroid use -Unknown reason for leukocytosis. Possible cellulitis? Plan -UA -Trend WBC (5) Venous stasis dermatitis of both lower extremities Current visit: No Status: Chronic (6) Hypokalemia Current visit: Yes Status: Acute (7) Hypokalemia Current visit: No Status: Acute Internal Medicine - H&P: HPI Chief complaint: R sided CP Admitted From: Emergency Dept Plans for Post Hospital Care: Home History of present illness: Ms. Lynch is a 61 year old female, extensive past medical history including OR , coronary disease, CHF, diabetes, hypertension, hyperlipidemia, COPD, c/c R sided CP and elevated WBC. Chest pain woke her up from her sleep around 12 AM with associated radiating right arm pain described as a squeezing sensation. Pain is constant and still present. Noting makes pain better or worse. Not peuritic. Admits to nausea and bloating of her abdomen. Stated this felt similar to her previous OR in 2007, only that pain was L sided. Denies FORBES, blurry vision, vomiting, fever, chills, SOB, abodominal pain, urinary complaints, changes in bowels. No recent trauma. States that she has been feeling more stress at home taking care of her son's girlfriend who is blind. Denies domestic abuse or violence. Past Med Surg Social Fam HX - Past Medical History Medical history: arthritis, CHF, COPD, coronary artery disease, diabetes, GERD, hyperlipidemia, hypertension, osteoporosis, thyroid disease, TIA, venous stasis , other Psychiatric history: anxiety, bipolar, depression, panic disorder - Past Surgical History Surgical History: angioplasty/stent, , cholecystectomy, hysterectomy, other - Social History Smoking Status: Former smoker Smokeless Tobacco Status: No Alcohol use: none Drug use: none - Family History Father Adopted: No Family Member Ethnicity: Non- Living Status: Hx Family Cardiac Disorders: Yes Mother Adopted: No Family Member Ethnicity: Non- Living Status: Hx Family Cardiac Disorders: Yes (OR) Hx Family Respiratory Disorders: No Hx Family Cancer: No Hx Family GI Disorders: No Hx Family Endocrine Disorder: Yes (DM) Hx Family Neuromuscular Disorders: No Hx Family Neurologic Disorders: Yes (Strokes) Hx Family HEENT Disorders: No Hx Family Autoimmune Disorders: No Internal Medicine - H&P: Meds Budesonide/Formoterol 160/4.5 [Symbicort] 2 puff IH BIDR 04/21/15 [History] Gabapentin [Neurontin] 800 mg PO TID 04/21/15 [History] Levothyroxine [Synthroid] 100 mcg PO QAM 04/21/15 [History] Metformin [Glucophage] 1,000 mg PO BID 04/21/15 [History] Tiotropium [Spiriva] 1 puff IH QAM 04/21/15 [History] Amlodipine Besylate 2.5 mg PO DAILY 12/27/15 [History] Atorvastatin Calcium [Lipitor] 40 mg PO DAILY 02/04/16 [History] Buspirone HCl [Buspar] 15 mg PO TID 02/04/16 [History] Montelukast [Singulair] 10 mg PO HS 02/04/16 [History] Oxygen 2 l NS AD PRN 03/17/16 [History] Insulin Glargine [Lantus] 70 unit SQ QAM 03/25/16 [History] Insulin Glargine [Lantus] 90 unit SQ QPM 03/25/16 [History] Albuterol Sulfate [Albuterol Inhaler] 2 puff IH Q4HR PRN 05/01/16 [History] Citalopram Hydrobromide [Citalopram HBr] 40 mg PO DAILY 05/01/16 [History] Ipratropium/Albuterol Neb [Duoneb] 3 ml IH Q6H PRN 05/01/16 [History] Raloxifene [Evista] 60 mg PO DAILY 05/01/16 [History] TraMADol [Ultram] 50 mg PO BID 05/01/16 [History] Aripiprazole [Abilify] 10 mg PO HS tablet 05/03/16 [Rx] ClonazePAM [Klonopin] 1 mg PO TID tablet 05/03/16 [Rx] Fenofibrate Nanocrystallized [Tricor] 145 mg PO DAILY 06/15/16 [History] Promethazine [Phenergan] 25 mg PO Q12H PRN 06/15/16 [History] Clopidogrel [Plavix] 75 mg PO QAM tablet 06/18/16 [Rx] Buprenorphine [Butrans] 10 mcg TD QWEEK 06/27/16 [History] Ondansetron HCl [Zofran] 4 mg PO Q6H PRN #20 tablet 08/07/16 [Rx] Baclofen [Lioresal] 10 mg PO 2-3XD 08/24/16 [History] Metoprolol Tartrate 25 mg PO BID 08/24/16 [History] Omeprazole [PriLOSEC] 20 mg PO BID 08/24/16 [History] Bumetanide 2 mg PO BID 11/21/16 [History] Meclizine [Antivert] 25 mg PO DAILY PRN 11/21/16 [History] Oxycodone HCl/Acetaminophen [Percocet 5-325 mg Tablet] 1 tab PO Q4H PRN [History] Potassium Chloride 20 meq PO BID 11/21/16 [History] Aspirin 81 mg PO DAILY #60 tab.chew 12/06/16 [Rx] Nystatin POWDER [Nystop] 1 appl TP BID 12/14/16 [History] Gabapentin [Neurontin] 1,600 mg PO HS 12/31/16 [History] Isosorbide MONOnitrate (24 HR) [Imdur] 30 mg PO QAM 12/31/16 [History] Magnesium Oxide [Magnesium] 800 mg PO BID 12/31/16 [History] Metolazone [Zaroxolyn] 5 mg PO Q48H 12/31/16 [History] Vit D3/Folic Acid/B2/B6/B12 1 tab PO BID 12/31/16 [History] Allergies No Known Allergies Allergy (Verified 11/12/16 02:17) All Systems PM: A 10-system review of systems was performed and is negative for pertinent findings except as documented above in the HPI. - Constitutional Constitutional: as per HPI - EENT Eyes: no change in vision, no discharge, no pain, no photophobia - Cardiovascular Cardiovascular ROS IM: as per HPI - Respiratory Respiratory: as per HPI - Gastrointestinal Gastrointestinal: nausea, no abdominal pain, no diarrhea, no hematemesis, no hematochezia, no melena, no vomiting - Genitourinary Genitourinary: as per HPI - Constitutional Vitals: Temp Pulse Resp BP Pulse Ox 97.6 F 72 15 143/78 93 12/31/16 04:50 12/31/16 04:50 12/31/16 04:50 12/31/16 04:50 12/31/16 04:50 General appearance: Present: A&O X 3, no acute distress, answers questions appropriately - Head Head exam: Present: atraumatic, normocephalic - Eye Eye exam: Present: PERRL, conjuntiva pink, sclera anicteric Pupils: Present: PERRL - Neck Neck exam general surgery: Present: supple, trachea midline. Absent: lymphadenopathy - Respiratory Respiratory exam: Present: CTAB. Absent: accessory muscle use, rales, rhonchi, wheezes - Cardiovascular Cardiovascular exam: Present: RRR, +S1, +S2. Absent: diastolic murmur, gallop, rubs, systolic murmur - GI/Abdominal GI/Abdominal exam: Present: soft, no peritoneal signs. Absent: distended (did not feel distended or bloated), tenderness - Neurological Exam Neurological exam: Present: CN II-XII intact, oriented X3, no focal deficits. Absent: speech deficit - Psychiatric Psychiatric exam: Present: normal affect, normal mood - Skin Skin exam: Present: dry, intact - Other Additional findings: Patient does have bilateral lower venous stasis from long-standing diabetes. Unchanged. Thorough skin assessment did show some mild errythema in R inguinal area. No flucctuant mass, pain, necrosis. Area outlined with marker. Otherwise, no signs of infection Internal Med - H&P Results - Labs CBC & Chem 7: 12/31/16 02:09 12/31/16 06:06 <John Pratt - Last Filed: 01/01/17 06:13> Date of Encounter: 12/31/16 Internal Medicine - H&P: HPI History of present illness: Ms. Lynch is a 61 year old female All Systems PM: A 10-system review of systems was performed and is negative for pertinent findings except as documented above in the HPI. - Constitutional Vitals: Temp Pulse Resp BP Pulse Ox 97.7 F 69 16 138/81 95 12/31/16 07:22 12/31/16 07:22 12/31/16 08:18 12/31/16 08:18 12/31/16 08:18 Internal Med - H&P Results - Labs CBC & Chem 7: 12/31/16 02:09 12/31/16 06:06 Labs: BMP 12/31/16 12/31/16 05:32 06:06 Sodium 140 Potassium 2.8 L 3.1 L Chloride 91 L Carbon Dioxide 38 H BUN 32 H Creatinine 1.01 Glucose 59 L Calcium 9.2 Cardiac Enzymes 12/31/16 Range/Units 06:06 Troponin I 0.00 (0-0.03) ng/mL Liver Function 12/31/16 Range/Units 05:32 Total Bilirubin 0.4 (0.2-1.2) mg/dL AST 35 H (5-34) Units/L ALT 55 (0-55) Units/L Alkaline Phosphatase 197 H (38-126) Units/L Albumin 2.9 L (3.5-5.0) g/dL - Attending Attestation I performed history and physical examination of the patient and discussed management with the Bible Reader / Resident. I reviewed the Bible Reader / Residents note and agree with documented findings and plan of care. 61 Y/F with h/o CAD / OR, CHF, DM present with right sided CP, radiating to the right arm; nausea, no vomiting. Constant pain. She had negative cardiac stress test in october 2016. O/E: Cardiac regular rate and rhythm. Lungs clear to auscultation EKG personally reviewed by me shows sinus rhythm. Q-wave in lead 3. CXR reports no acute process. Labs show leukocytosis; hypokalemia A/P: Chest pain: Atypical. Will check D-dimers. Trend troponins Leucocytosis: CXR is negative. Check UA Hypokalemia: replenish potassium. Check Magnesium levels
[2016-12-31 06:08] LABS: Alanine Aminotransferase 55 Units/L (0-55); Albumin 2.9 g/dL (3.5-5.0); Albumin/Globulin Ratio 0.9 (1.1-2.2); Alkaline Phosphatase 197 Units/L (38-126); Aspartate Amino Transferase 35 Units/L (5-34); BUN/Creatinine Ratio 32 (6-26); Bilirubin,Total 0.4 mg/dL (0.2-1.2); Blood Urea Nitrogen 32 mg/dL (7-20); Calcium 9.2 mg/dL (8.6-10.8); Carbon Dioxide 38 mEq/L (19-29); Chloride 91 mEq/L (98-109); Globulin 3.4 g/dL (2.4-3.5); Glucose 59 mg/dL (70-99); Osmolality,Calculated 295 (280-300); Potassium 2.8 mEq/L (3.5-4.5); Sodium 140 mEq/L (136-145); Total Protein 6.3 g/dL (6.0-8.3); eGFR For African Americans > 60 (> 60); eGFR For Non-African Americans 56 (> 60)
[2016-12-31 06:25] LABS: Magnesium 1.8 mg/dL (1.6-2.6); Potassium 3.1 mEq/L (3.5-4.5)
[2016-12-31 06:35] LABS: Bilirubin,Urine Negative (Negative); Blood,Urine Negative (Negative); Clarity,Urine Cloudy (Clear); Color,Urine Yellow (Yellow); Glucose,Urine (UA) Normal (Normal); Ketones,Urine Negative (Negative); Leukocyte Esterase,Urine Large (Negative); Nitrite,Urine Negative (Negative); PH,Urine 6.5 pH Units (5.0-8.0); Protein,Urine Negative (Neg-Trace); Specific Gravity,Urine 1.014 (1.010-1.025); Urobilinogen,Urine Normal (Normal)
[2016-12-31 06:37] LABS: Bacteria,Urine Many per hpf (None-Few); Hyaline Casts,Urine None Seen per lpf (None-Few); RBC,Urine 0-3 per hpf (0-3); Squamous Epithelial Cell,Urine Moderate per lpf (None-Few); WBC,Urine 50-100 per hpf (0-3)
[2016-12-31] MEDS ORDERED: Ipratropium/Albuterol Neb 3 ML IH PRN (06:43)
[2016-12-31] MEDS ORDERED: Ondansetron ODT 4 MG TAB.RAPDIS PO PRN (06:43)
[2016-12-31] MEDS ORDERED: NON-FORMULARY MEDICATION 1 EACH EACH (Oxygen [Oxygen] 2 L) NS PRN (06:43)
[2016-12-31] MEDS ORDERED: BUPRENORPHINE 10 MCG TP SCH (06:45)
[2016-12-31] MEDS: Budesonide/Formoterol 160/4.5 MDI IH SCH ×2 (08:18→21:53)
[2016-12-31] MEDS: Tiotropium 18 MCG inhalation IH SCH (08:19)
[2016-12-31] MEDS: *HR* OxyCODONE/APAP 5/325 TABLET PO PRN ×3 (09:19→20:18)
[2016-12-31] MEDS ORDERED: Dextrose Gel 15 GM PO PRN ×2 (09:34)
[2016-12-31] MEDS ORDERED: *HR* Dextrose 50 % in Water (Syg) 50 ML SYRINGE IVP PRN (09:34)
[2016-12-31] MEDS ORDERED: D5% in Water 1,000 ML IVC PRN (09:34)
--- NOTE | 2016-12-31 10:24 | Event Note ---
Date of Encounter: 12/31/16 Time of Encounter: 09:30 Patient seen and examined. On examination, patient asleep supine in bed. Patient awakened easily to voice and stated that the right side of her chest and her right arm was still painful but had improved since admission. She is requesting to eat. Thus far, troponins have been negative 2. D-dimer still pending, will trend. Patient had a negative stress test on 11/23/16. Chest x- ray is negative. Pain is reproducible with movement. Low suspicion for acute coronary syndrome. Hypokalemia is improving we will continue to supplement and monitor. She does have a urinary tract infection. In review of her chart, she had a urine culture recently on 10/27/16 that had multiple resistances including all by mouth meds set Macrobid which the patient was sent home on. Patient also has had issues with urinary retention requiring a Driscoll catheter during her visits in October. We will obtain bladder scan and await urine culture results. We will address her urinary tract infection and urinary symptoms. Started on Zosyn. Culture pending. No further ischemic cardiac workup is warranted at this time. Patient also worried that her legs are infected however current examination is consistent with her chronic venous stasis. No signs of acute cellulitis or acute lower extremity infection. Of note, this is the patient's 32nd visit via ambulance over the past calendar year. ITS Impressions Chest X-Ray 12/31/16 01:40 IMPRESSION: No acute process. D/ / Alissa Katz MD / Alissa Katz MD Interpreting Provider: Alissa Katz MD
[2016-12-31] MEDS: Baclofen 10 MG TABLET PO SCH ×3 (10:44→21:20)
[2016-12-31] MEDS: Aspirin 81 MG TAB.CHEW PO SCH (10:44)
[2016-12-31] MEDS: Fenofibrate 54 MG TABLET PO SCH (10:44)
[2016-12-31] MEDS: Gabapentin 400 MG CAPSULE PO SCH ×3 (10:45→21:19)
[2016-12-31] MEDS: Magnesium Oxide 400 MG TABLET PO SCH ×2 (10:46→21:19)
[2016-12-31] MEDS: amLODIPine 5 MG TABLET PO SCH (10:47)
[2016-12-31] MEDS: clonazePAM 1 MG TABLET PO SCH ×3 (10:48→21:20)
[2016-12-31] MEDS: Multivit/Ca/Min/Fe/FA 1 TAB TABLET PO SCH (10:48)
[2016-12-31] MEDS: Isosorbide MONOnitrate (24 HR) 30 MG TAB.ER.24H PO SCH (10:48)
[2016-12-31] MEDS: Bumetanide 1 MG TABLET PO SCH ×2 (10:50→21:19)
[2016-12-31] MEDS: traMADol 50 MG TABLET PO SCH ×2 (10:50→21:19)
[2016-12-31] MEDS: Piperacillin/Tazobactam 3.375 GM in D5% in Water (Mini-Bag+) 100 ML IVPB SCH ×2 (10:57→17:02)
[2016-12-31] MEDS: Nystatin POWDER 30 GM BOTTLE TP SCH ×2 (14:08→21:21)
[2016-12-31] MEDS: Insulin DETEMIR 100 UNIT/ML X5UNITS SQ SCH (17:03)
[2016-12-31] MEDS: *HR* Enoxaparin 30 MG/0.3 ML SYRINGE SQ SCH (17:03)
--- NOTE | 2016-12-31 17:46 | Electrocardiograph Report ---
[address] [place] [address] Test Date: 2016-12-31 Pat Name: Claire Lynch Department: [id number] Room: 3B Gender: F Foreign Languages Department Chair: EC : 1955 Requested By: Tanya Leal Order Number: [id number] Reading MD: Kae Avila Measurements Intervals [place] Rate: 78 P: 41 TX: 144 QRS: 13 QRSD: 86 T: 11 QT: 419 QTc: 452 Interpretive Statements SINUS RHYTHM LOW QRS VOLTAGE IN PRECORDIAL LEADS POSSIBLE ANTERIOR MYOCARDIAL INFARCTION, PROBABLY OLD Electronically Signed On 12-31-2016 17:45:13 EDT by Kae Avila
[2016-12-31] MEDS ORDERED: NON-FORMULARY MEDICATION 1 EACH EACH (Insulin Glargine [Lantus] 80 UNIT) SQ SCH (18:00)
[2016-12-31] MEDS: ARIPiprazole 10 MG TABLET PO SCH (21:19)
[2017-01-01] MEDS: *HR* OxyCODONE/APAP 5/325 TABLET PO PRN ×4 (01:50→18:47)
[2017-01-01] MEDS: Piperacillin/Tazobactam 3.375 GM in D5% in Water (Mini-Bag+) 100 ML IVPB SCH ×3 (01:50→17:00)
[2017-01-01] MEDS ORDERED: *HR* LORazepam 0.5 MG TABLET PO ONE (05:00)
[2017-01-01] MEDS: *HR* Enoxaparin 30 MG/0.3 ML SYRINGE SQ SCH ×2 (06:21→17:01)
[2017-01-01 06:33] LABS: Basophils # 0.1 K/mcL (0.0-0.2); Basophils % 0.7 %; Eosinophils # 0.2 K/mcL (0.0-0.6); Eosinophils % 2.6 %; Hematocrit 36.6 % (35.3-44.9); Hemoglobin 10.9 g/dL (11.5-15.4); Immature Granulocytes % 1.5 % (0-4); Lymphocytes # 2.7 K/mcL (0.6-4.6); Lymphocytes % 30.7 %; Mean Corpuscular HGB Conc 29.8 g/dL (31.6-35.5); Mean Corpuscular Hemoglobin 25.1 pg (28.0-33.3); Mean Corpuscular Volume 84.1 fL (83.0-100.0); Mean Platelet Volume 11.5 fL (9.4-12.4); Monocytes # 0.5 K/mcL (0.0-1.3); Monocytes % 5.5 %; Neutrophils # 5.2 K/mcL (1.6-8.9); Nucleated Red Blood Cells 0.5 /100 WBC (0); Platelet Count 217 K/mcL (140-400); Red Blood Count 4.35 M/mcL (3.82-4.97); Red Cell Distribution Width 17.6 % (11.5-14.5)
[2017-01-01 06:47] LABS: BUN/Creatinine Ratio 32 (6-26); Blood Urea Nitrogen 31 mg/dL (7-20); Calcium 9.3 mg/dL (8.6-10.8); Carbon Dioxide 36 mEq/L (19-29); Chloride 96 mEq/L (98-109); Glucose 171 mg/dL (70-99); Magnesium 1.7 mg/dL (1.6-2.6); Osmolality,Calculated 303 (280-300); Phosphorous 4.5 mg/dL (2.3-4.7); Potassium 3.1 mEq/L (3.5-4.5); Sodium 141 mEq/L (136-145); eGFR For African Americans > 60 (> 60); eGFR For Non-African Americans 59 (> 60)
[2017-01-01] MEDS: traMADol 50 MG TABLET PO SCH ×2 (08:58→21:26)
[2017-01-01] MEDS: Aspirin 81 MG TAB.CHEW PO SCH (08:59)
[2017-01-01] MEDS: Gabapentin 400 MG CAPSULE PO SCH ×3 (08:59→21:25)
[2017-01-01] MEDS: Bumetanide 1 MG TABLET PO SCH ×2 (08:59→21:26)
[2017-01-01] MEDS: Isosorbide MONOnitrate (24 HR) 30 MG TAB.ER.24H PO SCH (08:59)
[2017-01-01] MEDS: clonazePAM 1 MG TABLET PO SCH ×3 (08:59→21:27)
[2017-01-01] MEDS: Baclofen 10 MG TABLET PO SCH ×3 (08:59→21:27)
[2017-01-01] MEDS: Multivit/Ca/Min/Fe/FA 1 TAB TABLET PO SCH (09:00)
[2017-01-01] MEDS: Magnesium Oxide 400 MG TABLET PO SCH ×2 (09:00→21:26)
[2017-01-01] MEDS: Fenofibrate 54 MG TABLET PO SCH (09:01)
[2017-01-01] MEDS: amLODIPine 5 MG TABLET PO SCH (09:01)
[2017-01-01] MEDS: Nystatin POWDER 30 GM BOTTLE TP SCH ×2 (09:02→21:25)
[2017-01-01] MEDS: Tiotropium 18 MCG inhalation IH SCH (09:04)
[2017-01-01] MEDS: Budesonide/Formoterol 160/4.5 MDI IH SCH ×2 (09:04→19:59)
--- NOTE | 2017-01-01 13:44 | Internal Med Progress Note ---
Date of Encounter: 01/01/17 Time of Encounter: 09:30 - Assessment and plan (1) UTI (urinary tract infection) Current Visit: No Status: Acute Assessment and plan: Preliminary urine culture consistent with gram-negative rods. Continue Zosyn. Awaiting sensitivities. In review of her chart, she had a urine culture recently on 10/27/16 that had multiple resistances including all by mouth meds except Macrobid which the patient was sent home on. Patient also has had issues with urinary retention requiring a Driscoll catheter during her visits in October. Bladder scans thus far without retention. She had a sensitivities back tomorrow, likely discharge afterwards pending clinical outcomes. ITS Impressions Chest X-Ray 12/31/16 01:40 IMPRESSION: No acute process. D/ / Alissa Katz MD / Alissa Katz MD Interpreting Provider: Alissa Katz MD Qualifiers: Urinary tract infection type: site unspecified Hematuria presence: without hematuria Qualified Code(s): N39.0 - Urinary tract infection, site not specified (2) Chest pain Current Visit: No Status: Acute Assessment and plan: Patient continues to endorse right-sided chest pain. It is reproducible with palpation in consistent with musculoskeletal etiology. Troponins negative 4. She had a negative stress test a month and a half ago. Chest x-ray negative. Low suspicion for acute coronary syndrome. D-dimer negative, no tachycardia. Low suspicion for PE. Of note, this is the patient's 32nd admission in the last year. Continue to hold sedating medications as indicated and with nursing judgment. Will observe overnight while we are awaiting the second half of her urine culture with sensitivities given that she has a history of resistances in the past. ITS Impressions Chest X-Ray 12/31/16 01:40 IMPRESSION: No acute process. D/ / Alissa Katz MD / Alissa Katz MD Interpreting Provider: Alissa Katz MD Qualifiers: Chest pain type: other chest pain Qualified Code(s): R07.89 - Other chest pain; R07.8 - Other chest pain (3) CAD (coronary artery disease) Current Visit: No Status: Chronic Qualifiers: Coronary Disease-Associated Artery/Lesion type: [place] artery [place] vs. transplanted heart: [place] heart Associated angina: without angina Qualified Code(s): I25.10 - Atherosclerotic heart disease of [place] coronary artery without angina pectoris (4) Insulin dependent diabetes mellitus Current Visit: No Status: Chronic Assessment and plan: Uncontrolled with an A1c in October of 9.1%. Patient was lengthy history of noncompliance. We will continue sliding scale while admitted and will attempt to continue educating (5) GERD (gastroesophageal reflux disease) Current Visit: No Status: Chronic Assessment and plan: Denies current symptoms Qualifiers: Esophagitis presence: esophagitis presence not specified Qualified Code(s) : K21.9 - Gastro-esophageal reflux disease without esophagitis (6) COPD (chronic obstructive pulmonary disease) Current Visit: No Status: Chronic Assessment and plan: No acute exacerbation. Patient denies shortness of breath above her norm. Qualifiers: COPD type: unspecified COPD Qualified Code(s): J44.9 - Chronic obstructive pulmonary disease, unspecified (7) DVT prophylaxis Current Visit: No Status: Acute Assessment and plan: Subcutaneous Lovenox (8) Sleep apnea Current Visit: No Status: Chronic Assessment and plan: Patient stating she was supposed to have a sleep test but stated she was not able to sleep longer enough to have any findings from that test. Strong suspicion of JILLIAN, will have overnight pulse oximetry test. Qualifiers: Sleep apnea type: unspecified type Qualified Code(s): G47.30 - Sleep apnea , unspecified (9) Hypothyroidism Current Visit: No Status: Chronic Assessment and plan: TSH checked earlier this year, normal Qualifiers: Hypothyroidism type: acquired Qualified Code(s): E03.9 - Hypothyroidism, unspecified (10) Anxiety and depression Current Visit: No Status: Chronic Assessment and plan: Patient endorsing increased social stressors at home stating that her son is dating a blind girl who is living with them. (11) HTN (hypertension) Current Visit: No Status: Chronic Assessment and plan: Controlled. We will continue to trend and adjust her medications as indicated. Qualifiers: Hypertension type: essential hypertension Qualified Code(s): I10 - Essential (primary) hypertension (12) Tobacco use disorder Current Visit: No Status: Resolved (13) Chronic respiratory failure with hypoxia Current Visit: No Status: Chronic Assessment and plan: She is on 2 L per nasal cannula as needed at home. She was slightly hypoxic today and her 2 L was put on. Strong suspicion for JILLIAN, will obtain overnight pulse oximetry. (14) Chronic diastolic CHF (congestive heart failure) Current Visit: No Status: Chronic Assessment and plan: Patient has 1+ pitting edema bilaterally which she states is her norm. She denies shortness of breath above her norm. No acute exacerbation. (15) Polypharmacy Current Visit: No Status: Chronic (16) Non-compliance Current Visit: No Status: Chronic (17) Chronic venous stasis dermatitis of both lower extremities Current Visit: No Status: Chronic Assessment and plan: No signs of active infection or acute cellulitis. (18) Hypokalemia Current Visit: No Status: Acute Assessment and plan: On daily supplementation and was given additional supplementation since admission however she remains hypokalemic at 3.1. We will continue to supplement. Magnesium levels normal. (19) Hypomagnesemia Current Visit: No Status: Resolved (20) Leukocytosis Current Visit: Yes Status: Resolved Qualifiers: Leukocytosis type: unspecified Qualified Code(s): D72.829 - Elevated white blood cell count, unspecified (21) Morbid obesity with BMI of 45.0-49.9, adult Current Visit: No Status: Chronic (22) Drug-seeking behavior Current Visit: No Status: Chronic Assessment and plan: Chronic. Patient stating her pain levels get worse or do not change and continually requests more pain medication. On examination, patient appears drowsy and overmedicated, we will continue to hold sedating medications as indicated and that nursing discretion. - Subjective Interval history: patient seen and examined. On exam patient resting supine in bed initially asleep. She awakens easily to voice and stated that her right arm and her right -sided chest was still hurting. She is also concerned because she states that before breakfast, she had an episode where she felt as if she could not catch her breath. She states that she would exhale and then "gasp for air." She is endorsing a normal appetite. - Constitutional Vitals: Temp Pulse Resp BP Pulse Ox 97.5 F L 66 17 163/75 94 01/01/17 10:41 01/01/17 10:41 01/01/17 10:41 01/01/17 10:41 01/01/17 10:41 General appearance: Present: disheveled, A&O X 3, no acute distress, answers questions appropriately - Head Head exam: Present: atraumatic, normocephalic - Eye Eye exam: Present: PERRL, conjuntiva pink, sclera anicteric Pupils: Present: PERRL - Neck Neck exam general surgery: Present: supple, trachea midline. Absent: lymphadenopathy - Respiratory Respiratory exam: Present: chest wall tenderness, decreased breath sounds. Absent: accessory muscle use, rales, respiratory distress, rhonchi, wheezes - Cardiovascular Cardiovascular exam: Present: RRR, +S1, +S2. Absent: diastolic murmur, gallop, rubs, systolic murmur - GI/Abdominal GI/Abdominal exam: Present: normal bowel sounds, soft, no peritoneal signs. Absent: distended, tenderness - Extremities Exam Extremities exam: Present: pedal edema (1+ bilaterally-chronic), warm, radial pulses palpable and symetrical. Absent: calf tenderness, cyanotic - Expanded Lower Extremities Exam Lower Leg exam: Present: erythema Neuro vascular tendon exam: Present: no vascular compromise - Neurological Exam Neurological exam: Present: alert, CN II-XII intact, oriented X3, no focal deficits, strengths equal and symetr throughout. Absent: pronater drift, facial droop, speech deficit - Skin Skin exam: Present: dry, intact, normal color, warm Internal Medicine: Result - Labs CBC & Chem 7: 01/01/17 06:07 01/01/17 06:07 Labs: Short CBC 01/01/17 Range/Units 06:07 WBC 8.8 (4.3-11.1) K/mcL Hgb 10.9 L (11.5-15.4) g/dL Hct 36.6 (35.3-44.9) % Plt Count 217 (140-400) K/mcL Neutrophils # 5.2 (1.6-8.9) K/mcL BMP 01/01/17 06:07 Sodium 141 Potassium 3.1 L Chloride 96 L Carbon Dioxide 36 H BUN 31 H Creatinine 0.97 Glucose 171 H Calcium 9.3 Cardiac Enzymes 12/31/16 Range/Units 18:17 Troponin I 0.00 (0-0.03) ng/mL - ABG Interpretation ABG results: PT/INR, D-dimer PT 10.4 Seconds (9.4-12.1) 12/31/16 02:09 D-Dimer 353 ng/mLFEU (0-500) 12/31/16 06:06 Consult Discharge Plan - Plan Referrals: Corey Waddell DO [Primary Care Provider] -
[2017-01-01] MEDS ORDERED: Potassium Chloride 40 MEQ, Lidocaine 1% 2 ML in D5% in Water 500 ML IVPB ONE ×2 (13:57→21:30)
[2017-01-01] MEDS ORDERED: *HR* HYDROmorphone (PF) 1 MG/ML SYRINGE IVP ONE (16:37)
[2017-01-01] MEDS: Insulin DETEMIR 100 UNIT/ML X5UNITS SQ SCH (17:01)
[2017-01-01] MEDS: Insulin LISPRO 300 UNITS/3 ML VIAL SQ SCH (17:33)
[2017-01-01] MEDS ORDERED: Insulin LISPRO 300 UNITS/3 ML VIAL SQ SCH (21:00)
[2017-01-01] MEDS: ARIPiprazole 10 MG TABLET PO SCH (21:26)
[2017-01-02] MEDS: *HR* OxyCODONE/APAP 5/325 TABLET PO PRN ×3 (01:25→09:55)
[2017-01-02] MEDS: Piperacillin/Tazobactam 3.375 GM in D5% in Water (Mini-Bag+) 100 ML IVPB SCH ×2 (01:39→08:10)
[2017-01-02 04:16] LABS: BUN/Creatinine Ratio 31 (6-26); Blood Urea Nitrogen 33 mg/dL (7-20); Calcium 9.3 mg/dL (8.6-10.8); Carbon Dioxide 37 mEq/L (19-29); Chloride 96 mEq/L (98-109); Glucose 384 mg/dL (70-99); Magnesium 1.7 mg/dL (1.6-2.6); Osmolality,Calculated 317 (280-300); Potassium 3.4 mEq/L (3.5-4.5); Sodium 142 mEq/L (136-145); eGFR For African Americans > 60 (> 60); eGFR For Non-African Americans 52 (> 60)
[2017-01-02] MEDS: *HR* Enoxaparin 30 MG/0.3 ML SYRINGE SQ SCH (05:48)
[2017-01-02] MEDS ORDERED: NON-FORMULARY MEDICATION 1 EACH EACH (Insulin Glargine [Lantus] 70 UNIT) SQ SCH (07:00)
[2017-01-02 07:25] VITALS: BP 122/67
[2017-01-02] MEDS: Insulin LISPRO 300 UNITS/3 ML VIAL SQ SCH (08:11)
[2017-01-02] MEDS: Gabapentin 400 MG CAPSULE PO SCH (08:11)
[2017-01-02] MEDS: Baclofen 10 MG TABLET PO SCH (08:12)
[2017-01-02] MEDS: Fenofibrate 54 MG TABLET PO SCH (08:12)
[2017-01-02] MEDS: Bumetanide 1 MG TABLET PO SCH (08:12)
[2017-01-02] MEDS: Magnesium Oxide 400 MG TABLET PO SCH (08:12)
[2017-01-02] MEDS: Isosorbide MONOnitrate (24 HR) 30 MG TAB.ER.24H PO SCH (08:12)
[2017-01-02] MEDS: Multivit/Ca/Min/Fe/FA 1 TAB TABLET PO SCH (08:12)
[2017-01-02] MEDS: clonazePAM 1 MG TABLET PO SCH (08:13)
[2017-01-02] MEDS: amLODIPine 5 MG TABLET PO SCH (08:13)
[2017-01-02] MEDS: Aspirin 81 MG TAB.CHEW PO SCH (08:13)
[2017-01-02] MEDS: traMADol 50 MG TABLET PO SCH (08:13)
[2017-01-02] MEDS: Nystatin POWDER 30 GM BOTTLE TP SCH (08:14)
[2017-01-02] MEDS: Budesonide/Formoterol 160/4.5 MDI IH SCH (08:21)
[2017-01-02] MEDS: Tiotropium 18 MCG inhalation IH SCH (08:21)
[2017-01-02] MEDS ORDERED: Insulin DETEMIR 100 UNIT/ML X5UNITS SQ SCH (09:00)
--- NOTE | 2017-01-02 10:34 | Discharge Summary ---
Date of Encounter: 01/02/17 Time of Encounter: 09:00 - Discharge Diagnosis (1) UTI (urinary tract infection) Priority: Primary Status: Acute Comments: Urine culture revealing Escherichia coli with multiple resistances. Similar to her prior report although this time she is also resistant to Zosyn. Zosyn was stopped and she was given a dose of IV ceftriaxone prior to discharge. We will send her home on Cefdinir as the sensitivity report has sensitivities to second third and fourth generation cephalosporins with cefdinir being third generation. Resistances to first generation noted. We will trial this prior to initiation of IV antibiotics and have her follow up closely outpatient. Qualifiers: Urinary tract infection type: site unspecified Hematuria presence: without hematuria Qualified Code(s): N39.0 - Urinary tract infection, site not specified (2) Chest pain Priority: Primary Status: Ruled-out Comments: Patient continues to endorse right-sided chest pain. It is reproducible with palpation in consistent with musculoskeletal etiology. Troponins negative 4. She had a negative stress test a month and a half ago. Chest x-ray negative. Low suspicion for acute coronary syndrome. D-dimer negative, no tachycardia. Low suspicion for PE. Of note, this is the patient's 32nd admission in the last year. Qualifiers: Chest pain type: other chest pain Qualified Code(s): R07.89 - Other chest pain; R07.8 - Other chest pain (3) CAD (coronary artery disease) Priority: Secondary Status: Chronic Qualifiers: Coronary Disease-Associated Artery/Lesion type: [place] artery [place] vs. transplanted heart: [place] heart Associated angina: without angina Qualified Code(s): I25.10 - Atherosclerotic heart disease of [place] coronary artery without angina pectoris (4) Insulin dependent diabetes mellitus Priority: Secondary Status: Chronic Comments: Uncontrolled with an A1c in October of 9.1%. Patient with lengthy history of noncompliance. Follow-up closely outpatient (5) GERD (gastroesophageal reflux disease) Priority: Secondary Status: Chronic Qualifiers: Esophagitis presence: esophagitis presence not specified Qualified Code(s) : K21.9 - Gastro-esophageal reflux disease without esophagitis (6) COPD (chronic obstructive pulmonary disease) Priority: Secondary Status: Chronic Comments: No acute exacerbation. Patient denied shortness of breath above her norm. Qualifiers: COPD type: unspecified COPD Qualified Code(s): J44.9 - Chronic obstructive pulmonary disease, unspecified (7) DVT prophylaxis Priority: Primary Status: Acute Comments: Subcutaneous Lovenox while admitted (8) Sleep apnea Priority: Secondary Status: Chronic Comments: Patient stating she was supposed to have a sleep test but stated she was not able to sleep longer enough to have any findings from that test. Strong suspicion of JILLIAN, so we performed an overnight pulse oximetry test with her on 2L per NC and she did qualify for bipap. Qualifiers: Sleep apnea type: unspecified type Qualified Code(s): G47.30 - Sleep apnea , unspecified (9) Hypothyroidism Priority: Secondary Status: Chronic Comments: TSH checked earlier this year, normal Qualifiers: Hypothyroidism type: acquired Qualified Code(s): E03.9 - Hypothyroidism, unspecified (10) Anxiety and depression Priority: Secondary Status: Chronic Comments: Patient with increased social stressors including incarceration of her son as well as helping to take care of the son's girlfriend who is blind. (11) HTN (hypertension) Priority: Secondary Status: Chronic Comments: Controlled. Follow-up outpatient. Qualifiers: Hypertension type: essential hypertension Qualified Code(s): I10 - Essential (primary) hypertension (12) Tobacco use disorder Priority: Secondary Status: Resolved (13) Chronic respiratory failure with hypoxia Priority: Secondary Status: Chronic Comments: She is on 2 L per nasal cannula as needed at home. No increased need while awake. She qualified for home BiPap (14) Chronic diastolic CHF (congestive heart failure) Priority: Secondary Status: Chronic Comments: Patient has 1+ pitting edema bilaterally which she states is her norm. She denies shortness of breath above her norm. No acute exacerbation. (15) Polypharmacy Priority: Secondary Status: Chronic (16) Non-compliance Priority: Secondary Status: Chronic (17) Chronic venous stasis dermatitis of both lower extremities Priority: Secondary Status: Chronic Comments: No signs of active infection or acute cellulitis. (18) Hypokalemia Priority: Primary Status: Acute Comments: improved and nearly resolved- 3.4 on day of discharge. Will increase her home doses. This has been an ongoing problem for this patient. Mg normal (19) Hypomagnesemia Priority: Primary Status: Resolved (20) Leukocytosis Priority: Primary Status: Resolved Qualifiers: Leukocytosis type: unspecified Qualified Code(s): D72.829 - Elevated white blood cell count, unspecified (21) Morbid obesity with BMI of 45.0-49.9, adult Priority: Secondary Status: Chronic (22) Drug-seeking behavior Priority: Secondary Status: Chronic - Discharge Medications Prescriptions: Cefdinir [Omnicef] 300 mg PO BID #20 capsule Positiveairwaypressure-Bilevel [Bilevel positive airway pressure] 1 each IN HS # 1 each Potassium Chloride 40 meq PO BID #120 tab.er.prt Home Medications: Budesonide/Formoterol 160/4.5 [Symbicort] 2 puff IH BIDR 04/21/15 [History] Gabapentin [Neurontin] 800 mg PO TID 04/21/15 [History] Levothyroxine [Synthroid] 100 mcg PO QAM 04/21/15 [History] Metformin [Glucophage] 1,000 mg PO BID 04/21/15 [History] Tiotropium [Spiriva] 1 puff IH QAM 04/21/15 [History] Amlodipine Besylate 2.5 mg PO DAILY 12/27/15 [History] Atorvastatin Calcium [Lipitor] 40 mg PO DAILY 02/04/16 [History] Buspirone HCl [Buspar] 15 mg PO TID 02/04/16 [History] Montelukast [Singulair] 10 mg PO HS 02/04/16 [History] Oxygen 2 l NS AD PRN 03/17/16 [History] Insulin Glargine [Lantus] 70 unit SQ QAM 03/25/16 [History] Insulin Glargine [Lantus] 90 unit SQ QPM 03/25/16 [History] Albuterol Sulfate [Albuterol Inhaler] 2 puff IH Q4HR PRN 05/01/16 [History] Citalopram Hydrobromide [Citalopram HBr] 40 mg PO DAILY 05/01/16 [History] Ipratropium/Albuterol Neb [Duoneb] 3 ml IH Q6H PRN 05/01/16 [History] Raloxifene [Evista] 60 mg PO DAILY 05/01/16 [History] TraMADol [Ultram] 50 mg PO BID 05/01/16 [History] Aripiprazole [Abilify] 10 mg PO HS tablet 05/03/16 [Rx] ClonazePAM [Klonopin] 1 mg PO TID tablet 05/03/16 [Rx] Fenofibrate Nanocrystallized [Tricor] 145 mg PO DAILY 06/15/16 [History] Promethazine [Phenergan] 25 mg PO Q12H PRN 06/15/16 [History] Clopidogrel [Plavix] 75 mg PO QAM tablet 06/18/16 [Rx] Buprenorphine [Butrans] 10 mcg TD QWEEK 06/27/16 [History] Ondansetron HCl [Zofran] 4 mg PO Q6H PRN #20 tablet 08/07/16 [Rx] Baclofen [Lioresal] 10 mg PO 2-3XD 08/24/16 [History] Metoprolol Tartrate 25 mg PO BID 08/24/16 [History] Omeprazole [PriLOSEC] 20 mg PO BID 08/24/16 [History] Bumetanide 2 mg PO BID 11/21/16 [History] Meclizine [Antivert] 25 mg PO DAILY PRN 11/21/16 [History] Oxycodone HCl/Acetaminophen [Percocet 5-325 mg Tablet] 1 tab PO Q4H PRN [History] Aspirin 81 mg PO DAILY #60 tab.chew 12/06/16 [Rx] Nystatin POWDER [Nystop] 1 appl TP BID 12/14/16 [History] Gabapentin [Neurontin] 1,600 mg PO HS 12/31/16 [History] Isosorbide MONOnitrate (24 HR) [Imdur] 30 mg PO QAM 12/31/16 [History] Magnesium Oxide [Magnesium] 800 mg PO BID 12/31/16 [History] Metolazone [Zaroxolyn] 5 mg PO Q48H 12/31/16 [History] Vit D3/Folic Acid/B2/B6/B12 1 tab PO BID 12/31/16 [History] Cefdinir [Omnicef] 300 mg PO BID #20 capsule 01/02/17 [Rx] Positiveairwaypressure-Bilevel [Bilevel positive airway pressure] 1 each IN HS # 1 each 01/02/17 [Rx] Potassium Chloride 40 meq PO BID #120 tab.er.prt 01/02/17 [Rx] Allergies/Adverse Reactions: Allergies No Known Allergies Allergy (Verified 11/12/16 02:17) Date of admission: 12/31/16 03:50 Primary care physician: Corey Waddell, Discharging clinician: Keyanna Irizarry Anticipated date of discharge: 01/02/17 - Patient Status Disposition: Home Health Service Condition: Good Functional capacity at discharge: independent ambulation Overall status at discharge: patient is back to baseline - Discharge Instructions Instructions: Potassium Chloride (By mouth), Cefdinir (By mouth), BiPAP, Head Of Product (GEN) Follow Up With: Corey Waddell, DO [Primary Care Provider] - (Please call to schedule hospital follow up appointment.) Additional Instructions: Follow-up with primary care provider within one to 2 weeks - Diet and Activity Activity: increase activity as tolerated Diet: low fat, low cholesterol, low salt diet Hospital course: Ms. Lynch is a 61 year old female with extensive past medical history including CAD status post stents, COPD on 2 L per nasal cannula as needed at home, diabetes uncontrolled, hyperlipidemia, hypertension, hypothyroidism, morbid obesity, bipolar disorder, panic disorder. Patient presented to the emergency department chief complaint of chest pain that woke her up in the middle of the night and was associated with right arm pain described as a squeezing sensation. Patient stating the pain was constant and nothing made it better or worse. Patient also endorsed nausea and bloating of her abdomen. Denied vomiting, fever, shortness of breath, abdominal pain. She does endorse increased stressors at home with recent incarceration of her son and taking care of his son's girlfriend who is blind. Workup in the emergency department notable for hypokalemia and hypomagnesemia. Chest x-ray negative. Patient was admitted to the hospitalist service for further evaluation and management. Urinary tract infection noted and the patient was started on Zosyn. Regarding her chest pain, it was reproducible with palpation and consistent with musculoskeletal etiology. Troponins were negative 4. This is the patient's 32nd admission in the past year she has had extensive cardiac workups in the past. She had a negative stress test proximally 1-1/2 months prior to presentation. D-dimer negative. No tachycardia. Low suspicion for acute coronary syndrome or PE. Given her history of multiple resistances on her urinary tract infections, she was admitted and observed over the course of 3 days pending urine culture results. Most recent urine culture from 10/27/16 revealed multiple resistances including all by mouth meds except Macrobid which the patient was sent home on. The urine culture from this visit was essentially the same with Escherichia coli multiple resistances including resistance to Zosyn so the patient was changed to ceftriaxone. No known drug allergies. Only susceptibilities are amikacin, gentamicin, meropenem, nitrofurantoin which has been used recently, tobramycin, and second, third and fourth-generation cephalosporins. Patient tolerated ceftriaxone well and was sent home on another third-generation cephalosporin, cefdinir. Patient has a history of urinary retention, this was ruled out during this admission with bladder scans. If ineffective, patient will likely need IV antibiotics. Her hypomagnesemia and mild leukocytosis resolved. Hypokalemia improved in her home supplementation was increased. Her lower extremities were consistent with her chronic venous stasis dermatitis with no signs of acute cellulitis during this admission. Strong suspicion for obstructive sleep apnea and patient had an overnight pulse oximetry test while she was on 2 L per nasal cannula. She did qualify for BiPAP and this was set up prior to discharge. During this admission, patient was groggy and sleepy and continually asked for more pain medication. She readily admitted to needing a break from her home life and readily admitted to increased stressors of recent incarceration of her son. Acute coronary syndrome ruled out. She was set up with BiPAP for her sleep apnea and strongly encouraged to use it. She has a lengthy history of noncompliance. Of note, on the day prior to discharge, patient was concerned that she would gasp for air after she exhaled. Then on the day of discharge, her concern shifted to shaking in the mornings after she awakens. He is both nonspecific and she stated they have been going on for at least several months, no seizure-like activity or acute processes identified. As this was her 32nd admission this year, she has a known history of attempting to prolong and delay discharges. She had no focal neurologic weaknesses. She was discharged home with Bipap in stable condition with close outpatient followup recommended. ITS Impressions Chest X-Ray 12/31/16 01:40 IMPRESSION: No acute process. D/ / Alissa Katz MD / Alissa Katz MD Interpreting Provider: Alissa Katz MD - Time Spent with Patient Total time spent providing and/or coordinating discharge services: - Constitutional Vitals: Temp Pulse Resp BP Pulse Ox 98.0 F 71 18 122/67 93 01/02/17 07:24 01/02/17 07:24 01/02/17 07:24 01/02/17 07:24 01/02/17 07:24 General appearance: Present: disheveled, A&O X 3, morbidly obese, no acute distress, answers questions appropriately - Head Head exam: Present: atraumatic, normocephalic - Eye Eye exam: Present: PERRL, conjuntiva pink, sclera anicteric Pupils: Present: PERRL - Neck Neck exam general surgery: Present: supple, trachea midline. Absent: lymphadenopathy - Respiratory Respiratory exam: Present: decreased breath sounds. Absent: accessory muscle use, rales, respiratory distress, rhonchi, wheezes - Cardiovascular Cardiovascular exam: Present: RRR, +S1, +S2. Absent: diastolic murmur, gallop, rubs, systolic murmur - GI/Abdominal GI/Abdominal exam: Present: normal bowel sounds, soft, no peritoneal signs. Absent: distended, tenderness - Extremities Exam Extremities exam: Present: pedal edema (+1 bilaterally- chronic), warm, radial pulses palpable and symetrical. Absent: calf tenderness, cyanotic - Expanded Lower Extremities Exam Lower Leg exam: Present: erythema. Absent: swelling Ankle exam: Absent: swelling Neuro vascular tendon exam: Present: no vascular compromise Gait: Present: observed and normal - Neurological Exam Neurological exam: Present: alert, CN II-XII intact, normal gait, oriented X3, no focal deficits, strengths equal and symetr throughout. Absent: pronater drift, facial droop, speech deficit - Skin Skin exam: Present: dry, intact, normal color, warm
[2017-01-02 11:07] LABS: ABG Base Excess 18.8 mEq/L (-2.0 to 3.0); ABG HCO3 45.9 mEQ/L (21-27); ABG Oxygen Saturation 93 % (95-98); ABG PCO2 63 mmHg (35-45); ABG PH 7.47 pH Units (7.32-7.45); ABG PO2 61 mmHg (85-104); ABG TCO2 47.8 mEq/L (20-26); Blood Gas FiO2 28 %
--- NOTE | 2017-01-02 12:20 | Physician Discharge Referral ---
<Keyanna Serrano - Last Filed: 01/02/17 12:18> Home Health/Hosp Referral Info Transfer to: Home Health Attending Provider: Jeremy Irizarry CNP Provider in Charge Post Discharge: PCP - Diagnosis (1) UTI (urinary tract infection) Priority: Primary Status: Acute (2) Chest pain Priority: Primary Status: Ruled-out (3) CAD (coronary artery disease) Priority: Secondary Status: Chronic (4) Insulin dependent diabetes mellitus Priority: Secondary Status: Chronic (5) GERD (gastroesophageal reflux disease) Priority: Secondary Status: Chronic (6) COPD (chronic obstructive pulmonary disease) Priority: Secondary Status: Chronic (7) DVT prophylaxis Priority: Primary Status: Acute (8) Sleep apnea Priority: Secondary Status: Chronic (9) Hypothyroidism Priority: Secondary Status: Chronic (10) Anxiety and depression Priority: Secondary Status: Chronic (11) HTN (hypertension) Priority: Secondary Status: Chronic (12) Tobacco use disorder Priority: Primary Status: Resolved (13) Chronic respiratory failure with hypoxia Priority: Secondary Status: Chronic (14) Chronic diastolic CHF (congestive heart failure) Priority: Secondary Status: Chronic (15) Polypharmacy Priority: Secondary Status: Chronic (16) Non-compliance Priority: Secondary Status: Chronic (17) Chronic venous stasis dermatitis of both lower extremities Priority: Secondary Status: Chronic (18) Hypokalemia Priority: Primary Status: Acute (19) Hypomagnesemia Priority: Primary Status: Resolved (20) Leukocytosis Priority: Primary Status: Resolved (21) Morbid obesity with BMI of 45.0-49.9, adult Priority: Secondary Status: Chronic (22) Drug-seeking behavior Priority: Secondary Status: Chronic - Respiratory Orders Oxygen / L per min (2 PRN; Bipap at HS) Smoking Cessation: Smoking cessation has been advised. For more information, call the [place] Tobacco Quit Line at 1-674-HQLT-NOW. - Diet/Nutrition Diet/Nutrition Orders: No Added Salt (GOSIA), No Concentrated Sweets - Activity Activity Orders: Up ad charles, Ambulate - Services Needed Following services are medically necessary services: Nursing, Home Health Aide - Transfer Medications Prescriptions: Cefdinir [Omnicef] 300 mg PO BID #20 capsule Positiveairwaypressure-Bilevel [Bilevel positive airway pressure] 1 each IN HS # 1 each Potassium Chloride 40 meq PO BID #120 tab.er.prt Home Medications: Budesonide/Formoterol 160/4.5 [Symbicort] 2 puff IH BIDR 04/21/15 [History] Gabapentin [Neurontin] 800 mg PO TID 04/21/15 [History] Levothyroxine [Synthroid] 100 mcg PO QAM 04/21/15 [History] Metformin [Glucophage] 1,000 mg PO BID 04/21/15 [History] Tiotropium [Spiriva] 1 puff IH QAM 04/21/15 [History] Amlodipine Besylate 2.5 mg PO DAILY 12/27/15 [History] Atorvastatin Calcium [Lipitor] 40 mg PO DAILY 02/04/16 [History] Buspirone HCl [Buspar] 15 mg PO TID 02/04/16 [History] Montelukast [Singulair] 10 mg PO HS 02/04/16 [History] Oxygen 2 l NS AD PRN 03/17/16 [History] Insulin Glargine [Lantus] 70 unit SQ QAM 03/25/16 [History] Insulin Glargine [Lantus] 90 unit SQ QPM 03/25/16 [History] Albuterol Sulfate [Albuterol Inhaler] 2 puff IH Q4HR PRN 05/01/16 [History] Citalopram Hydrobromide [Citalopram HBr] 40 mg PO DAILY 05/01/16 [History] Ipratropium/Albuterol Neb [Duoneb] 3 ml IH Q6H PRN 05/01/16 [History] Raloxifene [Evista] 60 mg PO DAILY 05/01/16 [History] TraMADol [Ultram] 50 mg PO BID 05/01/16 [History] Aripiprazole [Abilify] 10 mg PO HS tablet 05/03/16 [Rx] ClonazePAM [Klonopin] 1 mg PO TID tablet 05/03/16 [Rx] Fenofibrate Nanocrystallized [Tricor] 145 mg PO DAILY 06/15/16 [History] Promethazine [Phenergan] 25 mg PO Q12H PRN 06/15/16 [History] Clopidogrel [Plavix] 75 mg PO QAM tablet 06/18/16 [Rx] Buprenorphine [Butrans] 10 mcg TD QWEEK 06/27/16 [History] Ondansetron HCl [Zofran] 4 mg PO Q6H PRN #20 tablet 08/07/16 [Rx] Baclofen [Lioresal] 10 mg PO 2-3XD 08/24/16 [History] Metoprolol Tartrate 25 mg PO BID 08/24/16 [History] Omeprazole [PriLOSEC] 20 mg PO BID 08/24/16 [History] Bumetanide 2 mg PO BID 11/21/16 [History] Meclizine [Antivert] 25 mg PO DAILY PRN 11/21/16 [History] Oxycodone HCl/Acetaminophen [Percocet 5-325 mg Tablet] 1 tab PO Q4H PRN [History] Aspirin 81 mg PO DAILY #60 tab.chew 12/06/16 [Rx] Nystatin POWDER [Nystop] 1 appl TP BID 12/14/16 [History] Gabapentin [Neurontin] 1,600 mg PO HS 12/31/16 [History] Isosorbide MONOnitrate (24 HR) [Imdur] 30 mg PO QAM 12/31/16 [History] Magnesium Oxide [Magnesium] 800 mg PO BID 12/31/16 [History] Metolazone [Zaroxolyn] 5 mg PO Q48H 12/31/16 [History] Vit D3/Folic Acid/B2/B6/B12 1 tab PO BID 12/31/16 [History] Cefdinir [Omnicef] 300 mg PO BID #20 capsule 01/02/17 [Rx] Positiveairwaypressure-Bilevel [Bilevel positive airway pressure] 1 each IN HS # 1 each 01/02/17 [Rx] Potassium Chloride 40 meq PO BID #120 tab.er.prt 01/02/17 [Rx] Allergies/Adverse Reactions: Allergies No Known Allergies Allergy (Verified 11/12/16 02:17) Certification: Further, I certify that my clinical findings support that this patient is homebound (i.e. absences from home require considerable and taxing effort and are for medical reasons or latter-day services or infrequently or short duration when for other reasons) because: Homebound Reason: Severity of cardiac or pulmonary status limits activity tolerance Attestation: My signature below is to certify that this patient is under my care and that I, or nurse practitioner, or a physician's assistant teacher working with me, has a face-to -face encounter with this patient. <Sameer Wallace - Last Filed: 01/02/17 14:23> - Respiratory Orders Smoking Cessation: Smoking cessation has been advised. For more information, call the [place] Tobacco Quit Line at 9-284-BERI-NOW. Certification: Further, I certify that my clinical findings support that this patient is homebound (i.e. absences from home require considerable and taxing effort and are for medical reasons or latter-day services or infrequently or short duration when for other reasons) because: Attestation: My signature below is to certify that this patient is under my care and that I, or nurse practitioner, or a physician's assistant teacher working with me, has a face-to -face encounter with this patient.
== END 2017-01-02 13:05 | disposition home health service (06) ==
LOC: 3BNU 01:34 → EMEROO 01:34 → 3BNU 04:06
PROVIDERS: ADMIT Internal Medicine; ATTEND Nurse Practitioner Family

== ENCOUNTER 2017-01-17 05:32 | Observation (INO) ==
--- NOTE | 2017-01-17 05:36 | Emergency Department Note ---
Disposition Clinical Impression: Chest pain, Hypokalemia, Anemia Disposition: Admitted As Inpatient Condition: Fair General Adult HPI - General Chief complaint: ED Chest Pain Stated complaint: Chest Pain Time Seen by Provider: 01/17/17 05:35 - Related Data Home Medications Medication Instructions Recorded Confirmed Budesonide/Formoterol 160/4.5 2 puff IH BIDR 04/21/15 01/17/17 [Symbicort] Gabapentin [Neurontin] 800 mg PO TID 04/21/15 01/17/17 Levothyroxine [Synthroid] 100 mcg PO QAM 04/21/15 01/17/17 Tiotropium [Spiriva] 1 puff IH QAM 04/21/15 01/17/17 metFORMIN [Glucophage] 1,000 mg PO BID 04/21/15 01/17/17 Amlodipine Besylate 2.5 mg PO DAILY 12/27/15 01/17/17 Atorvastatin Calcium [Lipitor] 40 mg PO DAILY 02/04/16 01/17/17 Buspirone HCl [Buspar] 15 mg PO TID 02/04/16 01/17/17 Montelukast [Singulair] 10 mg PO HS 02/04/16 01/17/17 Oxygen 2 l NS AD PRN 03/17/16 01/17/17 Insulin Glargine [Lantus] 70 unit SQ QAM 03/25/16 01/17/17 Insulin Glargine [Lantus] 90 unit SQ QPM 03/25/16 01/17/17 Albuterol Sulfate [Albuterol 2 puff IH Q4HR PRN 05/01/16 01/17/17 Inhaler] Citalopram Hydrobromide 40 mg PO DAILY 05/01/16 01/17/17 [Citalopram HBr] Ipratropium/Albuterol Neb [Duoneb] 3 ml IH Q6H PRN 05/01/16 01/17/17 Raloxifene [Evista] 60 mg PO DAILY 05/01/16 01/17/17 traMADol [Ultram] 50 mg PO BID 05/01/16 01/17/17 Fenofibrate Nanocrystallized 145 mg PO DAILY 06/15/16 01/17/17 [Tricor] Promethazine [Phenergan] 25 mg PO Q12H PRN 06/15/16 01/17/17 Buprenorphine [Butrans] 10 mcg TD QWEEK 06/27/16 01/17/17 Baclofen [Lioresal] 10 mg PO 2-3XD 08/24/16 01/17/17 Metoprolol Tartrate 25 mg PO BID 08/24/16 01/17/17 Omeprazole [PriLOSEC] 20 mg PO BID 08/24/16 01/17/17 Bumetanide 2 mg PO BID 11/21/16 01/17/17 Meclizine [Antivert] 25 mg PO DAILY PRN 11/21/16 01/17/17 Oxycodone HCl/Acetaminophen 1 tab PO Q4H PRN 11/21/16 01/17/17 [Percocet 5-325 mg Tablet] Nystatin POWDER [Nystop] 1 appl TP BID 12/14/16 01/17/17 Gabapentin [Neurontin] 1,600 mg PO HS 12/31/16 01/17/17 Isosorbide MONOnitrate (24 HR) 30 mg PO QAM 12/31/16 01/17/17 [Imdur] Magnesium Oxide [Magnesium] 800 mg PO BID 12/31/16 01/17/17 Vit D3/Folic Acid/B2/B6/B12 1 tab PO BID 12/31/16 01/17/17 metOLazone [Zaroxolyn] 5 mg PO Q48H 12/31/16 01/17/17 Previous Rx's Medication Instructions Recorded Aripiprazole [Abilify] 10 mg PO HS tablet 05/03/16 clonazePAM [Klonopin] 1 mg PO TID tablet 05/03/16 Clopidogrel [Plavix] 75 mg PO QAM tablet 06/18/16 Ondansetron HCl [Zofran] 4 mg PO Q6H PRN #20 tablet 08/07/16 Aspirin 81 mg PO DAILY #60 tab.chew 12/06/16 Positiveairwaypressure-Bilevel 1 each IN HS #1 each 01/02/17 [Bilevel positive airway pressure] Potassium Chloride 40 meq PO BID #120 tab.er.prt 01/02/17 Allergies Allergy/AdvReac Type Severity Reaction Status Date / Time No Known Allergies Allergy Verified 11/12/16 02:17 Past Medical History - Past Medical History Medical history: Reports: arthritis, CHF, COPD, coronary artery disease, diabetes, GERD, hyperlipidemia, hypertension, osteoporosis, thyroid disease, TIA , venous stasis, other Surgical history: Reports: angioplasty/stent, , cholecystectomy, hysterectomy, other Psychiatric history: Reports: anxiety, bipolar, depression, panic disorder [employer] history: Reports: bilateral tubal ligation - Social History Smoking Status: Former smoker Smokeless Tobacco Status: No Alcohol use: Reports: none Drug use: Reports: none Course Vital Signs Temperature 98.7 F 01/17/17 05:34 Pulse Rate 90 01/17/17 05:34 Respiratory Rate 20 01/17/17 05:34 Blood Pressure 155/82 01/17/17 05:34 O2 Sat by Pulse Oximetry 93 01/17/17 05:34 Temperature 97.9 F 01/17/17 15:22 Pulse Rate 80 01/17/17 15:22 Respiratory Rate 16 01/17/17 15:22 Blood Pressure 123/74 01/17/17 15:22 O2 Sat by Pulse Oximetry 94 01/17/17 15:22 Oxygen Delivery Oxygen Delivery Nasal Cannula Medical Decision Making - Lab Data Result diagrams: 01/17/17 06:10 01/17/17 17:01 Lab Results 01/17/17 01/17/17 01/17/17 Range/Units 06:10 06:10 06:10 WBC 10.1 (4.3-11.1) K/mcL RBC 4.29 (3.82-4.97) M/mcL Hgb 11.1 L (11.5-15.4) g/dL Hct 35.6 (35.3-44.9) % MCV 83.0 (83.0-100.0) fL MCH 25.9 L (28.0-33.3) pg MCHC 31.2 L (31.6-35.5) g/dL RDW 17.3 H (11.5-14.5) % Plt Count 244 (140-400) K/mcL MPV 11.7 (9.4-12.4) fL Immature Gran % 1.2 (0-4) % Seg Neutrophils % 62.4 % Lymphocytes % 27.4 % Monocytes % 5.9 % Eosinophils % 2.4 % Basophils % 0.7 % Neutrophils # 6.3 (1.6-8.9) K/mcL Lymphocytes # 2.8 (0.6-4.6) K/mcL Monocytes # 0.6 (0.0-1.3) K/mcL Eosinophils # 0.2 (0.0-0.6) K/mcL Basophils # 0.1 (0.0-0.2) K/mcL Nucleated RBCs/100 WBC 0.3 H (0) /100 WBC Sodium 140 (136-145) mEq/L Potassium 2.6 L (3.5-4.5) mEq/L Chloride 95 L (98-109) mEq/L Carbon Dioxide 33 H (19-29) mEq/L BUN 30 H (7-20) mg/dL Creatinine 0.92 (0.57-1.11) mg/dL Est GFR ( Amer) > 60 (> 60) Est GFR (Non-Af Amer) > 60 (> 60) BUN/Creatinine Ratio 33 H (6-26) Glucose 195 H (70-99) mg/dL Calculated Osmolality 302 H (280-300) Calcium 9.5 (8.6-10.8) mg/dL Magnesium 1.5 L (1.6-2.6) mg/dL Troponin I 0.00 (0-0.03) ng/mL B-Natriuretic Peptide (0-100) pg/mL 01/17/17 Range/Units 06:10 WBC (4.3-11.1) K/mcL RBC (3.82-4.97) M/mcL Hgb (11.5-15.4) g/dL Hct (35.3-44.9) % MCV (83.0-100.0) fL MCH (28.0-33.3) pg MCHC (31.6-35.5) g/dL RDW (11.5-14.5) % Plt Count (140-400) K/mcL MPV (9.4-12.4) fL Immature Gran % (0-4) % Seg Neutrophils % % Lymphocytes % % Monocytes % % Eosinophils % % Basophils % % Neutrophils # (1.6-8.9) K/mcL Lymphocytes # (0.6-4.6) K/mcL Monocytes # (0.0-1.3) K/mcL Eosinophils # (0.0-0.6) K/mcL Basophils # (0.0-0.2) K/mcL Nucleated RBCs/100 WBC (0) /100 WBC Sodium (136-145) mEq/L Potassium (3.5-4.5) mEq/L Chloride (98-109) mEq/L Carbon Dioxide (19-29) mEq/L BUN (7-20) mg/dL Creatinine (0.57-1.11) mg/dL Est GFR ( Amer) (> 60) Est GFR (Non-Af Amer) (> 60) BUN/Creatinine Ratio (6-26) Glucose (70-99) mg/dL Calculated Osmolality (280-300) Calcium (8.6-10.8) mg/dL Magnesium (1.6-2.6) mg/dL Troponin I (0-0.03) ng/mL B-Natriuretic Peptide < 10 (0-100) pg/mL Attestation Statement - Attestation Attestation: I examined this patient and my medical decision-making was reviewed with the [employer]/PA/Advanced Practice Nurse/Resident Physician. I agree with the documented findings, disposition and treatment plan as described except to the extent set forth below. Face to face time provided Patient complains of chest congestion and chest pain as well as peripheral edema. She does have chronic venous stasis changes to her lower extremity is bilaterally. Appears older than stated age. Seen and evaluated in conjunction with the resident physician 06:22: Care to be endorsed to oncoming physician Dr. Arias at 7 AM pending labs and reevaluation
[2017-01-17] MEDS ORDERED: GI Cocktail 40 ML EACH PO ONE (05:40)
--- NOTE | 2017-01-17 05:45 | Emergency Department Note ---
Disposition Clinical Impression: Chest pain Qualifiers: Chest pain type: unspecified Qualified Code(s): R07.9 - Chest pain, unspecified Disposition: Still a Patient Condition: Good Referrals: NO,PCP [Non-Partnered Physician] - Forms: ED Satisfaction Letter Chest Pain HPI - General Chief Complaint: ED Chest Pain Stated Complaint: Chest Pain Time Seen by Provider: 01/17/17 05:35 Source: patient Vital Signs Reviewed: Yes Nursing Notes Reviewed: Yes - History of Present Illness HPI Narrative: 61-year-old female with a history of COPD, CAD with stents, hypertension who presents emergency Department with a chief complaint of chest pain. She states this started 6 hours ago and has been constant. It is described as sharp in the lower sternal/epigastric area. It does not radiate. It is not associated with nausea, vomiting or diaphoresis. Pain does not radiate. Denies any syncope. Denies any new shortness of breath. Denies any new lower extremity swelling. Severity scale (1-10): 6 - Related Data Home Medications Medication Instructions Recorded Confirmed Budesonide/Formoterol 160/4.5 2 puff IH BIDR 04/21/15 12/31/16 [Symbicort] Gabapentin [Neurontin] 800 mg PO TID 04/21/15 12/31/16 Levothyroxine [Synthroid] 100 mcg PO QAM 04/21/15 12/31/16 Tiotropium [Spiriva] 1 puff IH QAM 04/21/15 12/31/16 metFORMIN [Glucophage] 1,000 mg PO BID 04/21/15 12/31/16 Amlodipine Besylate 2.5 mg PO DAILY 12/27/15 12/31/16 Atorvastatin Calcium [Lipitor] 40 mg PO DAILY 02/04/16 12/31/16 Buspirone HCl [Buspar] 15 mg PO TID 02/04/16 12/31/16 Montelukast [Singulair] 10 mg PO HS 02/04/16 12/31/16 Oxygen 2 l NS AD PRN 03/17/16 12/31/16 Insulin Glargine [Lantus] 70 unit SQ QAM 03/25/16 12/31/16 Insulin Glargine [Lantus] 90 unit SQ QPM 03/25/16 12/31/16 Albuterol Sulfate [Albuterol 2 puff IH Q4HR PRN 05/01/16 12/31/16 Inhaler] Citalopram Hydrobromide 40 mg PO DAILY 05/01/16 12/31/16 [Citalopram HBr] Ipratropium/Albuterol Neb [Duoneb] 3 ml IH Q6H PRN 05/01/16 12/31/16 Raloxifene [Evista] 60 mg PO DAILY 05/01/16 12/31/16 traMADol [Ultram] 50 mg PO BID 05/01/16 12/31/16 Fenofibrate Nanocrystallized 145 mg PO DAILY 06/15/16 12/31/16 [Tricor] Promethazine [Phenergan] 25 mg PO Q12H PRN 06/15/16 12/31/16 Buprenorphine [Butrans] 10 mcg TD QWEEK 06/27/16 12/31/16 Baclofen [Lioresal] 10 mg PO 2-3XD 08/24/16 12/31/16 Metoprolol Tartrate 25 mg PO BID 08/24/16 12/31/16 Omeprazole [PriLOSEC] 20 mg PO BID 08/24/16 12/31/16 Bumetanide 2 mg PO BID 11/21/16 12/31/16 Meclizine [Antivert] 25 mg PO DAILY PRN 11/21/16 12/31/16 Oxycodone HCl/Acetaminophen 1 tab PO Q4H PRN 11/21/16 12/31/16 [Percocet 5-325 mg Tablet] Nystatin POWDER [Nystop] 1 appl TP BID 12/14/16 12/31/16 Gabapentin [Neurontin] 1,600 mg PO HS 12/31/16 12/31/16 Isosorbide MONOnitrate (24 HR) 30 mg PO QAM 12/31/16 12/31/16 [Imdur] Magnesium Oxide [Magnesium] 800 mg PO BID 12/31/16 12/31/16 Vit D3/Folic Acid/B2/B6/B12 1 tab PO BID 12/31/16 12/31/16 metOLazone [Zaroxolyn] 5 mg PO Q48H 12/31/16 12/31/16 Previous Rx's Medication Instructions Recorded Aripiprazole [Abilify] 10 mg PO HS tablet 05/03/16 clonazePAM [Klonopin] 1 mg PO TID tablet 05/03/16 Clopidogrel [Plavix] 75 mg PO QAM tablet 06/18/16 Ondansetron HCl [Zofran] 4 mg PO Q6H PRN #20 tablet 08/07/16 Aspirin 81 mg PO DAILY #60 tab.chew 12/06/16 Cefdinir [Omnicef] 300 mg PO BID #20 capsule 01/02/17 Positiveairwaypressure-Bilevel 1 each IN HS #1 each 01/02/17 [Bilevel positive airway pressure] Potassium Chloride 40 meq PO BID #120 tab.er.prt 01/02/17 Allergies Allergy/AdvReac Type Severity Reaction Status Date / Time No Known Allergies Allergy Verified 11/12/16 02:17 All systems ED: reviewed and negative except as stated. Constitutional: Denies: fever Cardiovascular: Reports: chest pain Respiratory: Denies: cough Gastrointestinal: Denies: abdominal pain, nausea, vomiting Musculoskeletal: Denies: back pain Neurological: Denies: headache, weakness, numbness Chest Pain PMH - Past Medical History Medical history: Reports: arthritis, CHF, COPD, coronary artery disease, diabetes, GERD, hyperlipidemia, hypertension, osteoporosis, thyroid disease, TIA , venous stasis, other Surgical history: Reports: angioplasty/stent, , cholecystectomy, hysterectomy, other Psychiatric history: Reports: anxiety, bipolar, depression, panic disorder [employer] history: Reports: bilateral tubal ligation - Social History Smoking Status: Former smoker Alcohol use: Reports: none Drug use: Reports: none Physical Exam General: Patient appears older than stated age but is resting comfortably in bed , alert and oriented, talkative and appropriate Cardiovascular: Regular rate and rhythm. S1, S2. No murmurs, rubs or gallops. Respiratory: Diminished breath sounds bilaterally. Scant expiratory wheezing bilaterally. No rales or rhonchi. No respiratory distress or coughing Abdomen: Soft, nontender. No guarding, rebound or rigidity. Normal bowel sounds throughout. Eyes: Conjunctiva clear HENT: No oral mucosal lesions. Moist mucous membranes Neuro: Alert and oriented 3, symmetric upper and lower extremity strength throughout.. Musculoskeletal: Bilateral lower extremity edema involving the lower extremities and ankles which is symmetric. In the lower extremities there is bilateral erythema without any drainage or discharge. There is no increased warmth in this area. It appears she has chronic vascular changes of the lower extremities but has normal distal capillary refill and pulses. Skin: No other rashes or lesions Psych: Appropriate - General General appearance: alert Course Course Narrative: Presents with chest pain.on exam she is in no distress. EKG shows no acute ischemic changes. Chest x-ray clear. Pending troponin and the rest of her lab work. Patient also has bilateral lower extremity redness which may represent cellulitis versus chronic vascular changes. Patient will be signed out to oncoming physicians, Dr. John and Hemanth. Vital Signs Temperature 98.7 F 01/17/17 05:34 Pulse Rate 90 01/17/17 05:34 Respiratory Rate 20 01/17/17 05:34 Blood Pressure 155/82 01/17/17 05:34 O2 Sat by Pulse Oximetry 93 01/17/17 05:34 Temperature 98.7 F 01/17/17 05:34 Pulse Rate 86 01/17/17 06:29 Respiratory Rate 18 01/17/17 06:29 Blood Pressure 172/100 01/17/17 06:29 O2 Sat by Pulse Oximetry 96 01/17/17 06:29 Oxygen Delivery Oxygen Delivery Room Air Chest Pain - Lab Data Result diagrams: 01/17/17 06:10 01/17/17 06:10 Lab Results 01/17/17 01/17/17 Range/Units 06:10 06:10 WBC 10.1 (4.3-11.1) K/mcL RBC 4.29 (3.82-4.97) M/mcL Hgb 11.1 L (11.5-15.4) g/dL Hct 35.6 (35.3-44.9) % MCV 83.0 (83.0-100.0) fL MCH 25.9 L (28.0-33.3) pg MCHC 31.2 L (31.6-35.5) g/dL RDW 17.3 H (11.5-14.5) % Plt Count 244 (140-400) K/mcL MPV 11.7 (9.4-12.4) fL Immature Gran % 1.2 (0-4) % Seg Neutrophils % 62.4 % Lymphocytes % 27.4 % Monocytes % 5.9 % Eosinophils % 2.4 % Basophils % 0.7 % Neutrophils # 6.3 (1.6-8.9) K/mcL Lymphocytes # 2.8 (0.6-4.6) K/mcL Monocytes # 0.6 (0.0-1.3) K/mcL Eosinophils # 0.2 (0.0-0.6) K/mcL Basophils # 0.1 (0.0-0.2) K/mcL Nucleated RBCs/100 WBC 0.3 H (0) /100 WBC Sodium 140 (136-145) mEq/L Potassium 2.6 L (3.5-4.5) mEq/L Chloride 95 L (98-109) mEq/L Carbon Dioxide 33 H (19-29) mEq/L BUN 30 H (7-20) mg/dL Creatinine 0.92 (0.57-1.11) mg/dL Est GFR ( Amer) > 60 (> 60) Est GFR (Non-Af Amer) > 60 (> 60) BUN/Creatinine Ratio 33 H (6-26) Glucose 195 H (70-99) mg/dL Calculated Osmolality 302 H (280-300) Calcium 9.5 (8.6-10.8) mg/dL - EKG Data EKG results narrative: EKG shows a sinus rhythm with a rate of [address] elevation or depression. T-wave flattening in inferior leads. T wave morphology and T wave changes are unchanged from previous on 12/31/2016.
[2017-01-17 06:18] LABS: Basophils # 0.1 K/mcL (0.0-0.2); Basophils % 0.7 %; Eosinophils # 0.2 K/mcL (0.0-0.6); Eosinophils % 2.4 %; Hematocrit 35.6 % (35.3-44.9); Hemoglobin 11.1 g/dL (11.5-15.4); Immature Granulocytes % 1.2 % (0-4); Lymphocytes # 2.8 K/mcL (0.6-4.6); Lymphocytes % 27.4 %; Mean Corpuscular HGB Conc 31.2 g/dL (31.6-35.5); Mean Corpuscular Hemoglobin 25.9 pg (28.0-33.3); Mean Platelet Volume 11.7 fL (9.4-12.4); Monocytes # 0.6 K/mcL (0.0-1.3); Monocytes % 5.9 %; Neutrophils # 6.3 K/mcL (1.6-8.9); Nucleated Red Blood Cells 0.3 /100 WBC (0); Platelet Count 244 K/mcL (140-400); Red Blood Count 4.29 M/mcL (3.82-4.97); Red Cell Distribution Width 17.3 % (11.5-14.5); Segmented Neutrophils % 62.4 %
[2017-01-17 06:34] LABS: BUN/Creatinine Ratio 33 (6-26); Blood Urea Nitrogen 30 mg/dL (7-20); Calcium 9.5 mg/dL (8.6-10.8); Carbon Dioxide 33 mEq/L (19-29); Chloride 95 mEq/L (98-109); Glucose 195 mg/dL (70-99); Osmolality,Calculated 302 (280-300); Potassium 2.6 mEq/L (3.5-4.5); Sodium 140 mEq/L (136-145); eGFR For African Americans > 60 (> 60); eGFR For Non-African Americans > 60 (> 60)
[2017-01-17] MEDS ORDERED: Aspirin 81 MG TAB.CHEW PO ONE (06:54)
--- NOTE | 2017-01-17 07:03 | Emergency Department Note ---
Disposition Clinical Impression: Hypokalemia Chest pain Qualifiers: Chest pain type: unspecified Qualified Code(s): R07.9 - Chest pain, unspecified Anemia Qualifiers: Anemia type: unspecified type Qualified Code(s): D64.9 - Anemia, unspecified Disposition: Admitted As Inpatient Condition: Fair Referrals: NO,PCP [Non-Partnered Physician] - Forms: ED Satisfaction Letter General Adult HPI - General Chief complaint: ED Chest Pain Stated complaint: Chest Pain Time Seen by Provider: 01/17/17 05:35 Source: patient - History of Present Illness HPI Narrative: As a continuation of the prior providers documentation. Please see their note for complete history and physical. Pain Scale: 6 - Related Data Home Medications Medication Instructions Recorded Confirmed Budesonide/Formoterol 160/4.5 2 puff IH BIDR 04/21/15 01/17/17 [Symbicort] Gabapentin [Neurontin] 800 mg PO TID 04/21/15 01/17/17 Levothyroxine [Synthroid] 100 mcg PO QAM 04/21/15 01/17/17 Tiotropium [Spiriva] 1 puff IH QAM 04/21/15 01/17/17 metFORMIN [Glucophage] 1,000 mg PO BID 04/21/15 01/17/17 Amlodipine Besylate 2.5 mg PO DAILY 12/27/15 01/17/17 Atorvastatin Calcium [Lipitor] 40 mg PO DAILY 02/04/16 01/17/17 Buspirone HCl [Buspar] 15 mg PO TID 02/04/16 01/17/17 Montelukast [Singulair] 10 mg PO HS 02/04/16 01/17/17 Oxygen 2 l NS AD PRN 03/17/16 01/17/17 Insulin Glargine [Lantus] 70 unit SQ QAM 03/25/16 01/17/17 Insulin Glargine [Lantus] 90 unit SQ QPM 03/25/16 01/17/17 Albuterol Sulfate [Albuterol 2 puff IH Q4HR PRN 05/01/16 01/17/17 Inhaler] Citalopram Hydrobromide 40 mg PO DAILY 05/01/16 01/17/17 [Citalopram HBr] Ipratropium/Albuterol Neb [Duoneb] 3 ml IH Q6H PRN 05/01/16 01/17/17 Raloxifene [Evista] 60 mg PO DAILY 05/01/16 01/17/17 traMADol [Ultram] 50 mg PO BID 05/01/16 01/17/17 Fenofibrate Nanocrystallized 145 mg PO DAILY 06/15/16 01/17/17 [Tricor] Promethazine [Phenergan] 25 mg PO Q12H PRN 06/15/16 01/17/17 Buprenorphine [Butrans] 10 mcg TD QWEEK 06/27/16 01/17/17 Baclofen [Lioresal] 10 mg PO 2-3XD 08/24/16 01/17/17 Metoprolol Tartrate 25 mg PO BID 08/24/16 01/17/17 Omeprazole [PriLOSEC] 20 mg PO BID 08/24/16 01/17/17 Bumetanide 2 mg PO BID 11/21/16 01/17/17 Meclizine [Antivert] 25 mg PO DAILY PRN 11/21/16 01/17/17 Oxycodone HCl/Acetaminophen 1 tab PO Q4H PRN 11/21/16 01/17/17 [Percocet 5-325 mg Tablet] Nystatin POWDER [Nystop] 1 appl TP BID 12/14/16 01/17/17 Gabapentin [Neurontin] 1,600 mg PO HS 12/31/16 01/17/17 Isosorbide MONOnitrate (24 HR) 30 mg PO QAM 12/31/16 01/17/17 [Imdur] Magnesium Oxide [Magnesium] 800 mg PO BID 12/31/16 01/17/17 Vit D3/Folic Acid/B2/B6/B12 1 tab PO BID 12/31/16 01/17/17 metOLazone [Zaroxolyn] 5 mg PO Q48H 12/31/16 01/17/17 Previous Rx's Medication Instructions Recorded Aripiprazole [Abilify] 10 mg PO HS tablet 05/03/16 clonazePAM [Klonopin] 1 mg PO TID tablet 05/03/16 Clopidogrel [Plavix] 75 mg PO QAM tablet 06/18/16 Ondansetron HCl [Zofran] 4 mg PO Q6H PRN #20 tablet 08/07/16 Aspirin 81 mg PO DAILY #60 tab.chew 12/06/16 Positiveairwaypressure-Bilevel 1 each IN HS #1 each 01/02/17 [Bilevel positive airway pressure] Potassium Chloride 40 meq PO BID #120 tab.er.prt 01/02/17 Allergies Allergy/AdvReac Type Severity Reaction Status Date / Time No Known Allergies Allergy Verified 11/12/16 02:17 Constitutional: Denies: fever Cardiovascular: Reports: chest pain Respiratory: Denies: cough Gastrointestinal: Denies: abdominal pain, nausea, vomiting Musculoskeletal: Denies: back pain Neurological: Denies: headache, weakness, numbness Past Medical History - Past Medical History Medical history: Reports: arthritis, CHF, COPD, coronary artery disease, diabetes, GERD, hyperlipidemia, hypertension, osteoporosis, thyroid disease, TIA , venous stasis, other Surgical history: Reports: angioplasty/stent, , cholecystectomy, hysterectomy, other Psychiatric history: Reports: anxiety, bipolar, depression, panic disorder 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: bilateral tubal ligation - Social History Smoking Status: Former smoker Smokeless Tobacco Status: No Alcohol use: Reports: none Drug use: Reports: none Physical Exam - General Limitations: no limitations General appearance: alert, in no apparent distress - Head Head exam: atraumatic, normal inspection - Eye Eye exam: Present: normal appearance, EOMI - ENT ENT exam: normal exam, mucous membranes moist - Neck Neck exam: Present: normal inspection, trachea midline - Chest Chest inspection: Present: normal inspection, symmetric chest wall rise - Respiratory Respiratory exam: Absent: respiratory distress, accessory muscle use - Cardiovascular Cardiovascular exam: Present: regular rate, normal rhythm - Abdominal Exam Abdominal exam: Present: soft. Absent: distention, guarding, rebound - Extremities Exam Extremities exam: Present: other (Symmetric bilateral lower extremity erythema) - Neurological Exam Neurological exam: Present: alert - Skin Skin exam: Present: other (As above) Course Course Narrative: Patient was seen and examined upon shift change. Patient's workup was initiated by prior providers. Patient is a 61-year-old female with a history of coronary artery disease status post stents on Plavix who presents for evaluation of chest pain. Patient stated that chest pain was nonexertional and woke up in the middle night. Patient taken aspirin as well as nitroglycerin and helps relieve the pain. Patient also has a history of hypokalemia. Patient 's lab work reveal a negative troponin but a low potassium level of 2.6. Patient states that she is on diuretics and has had known hypokalemia in the past. - Reevaluation(s) Reevaluation #1: Patient seen and examined. Patient will get a magnesium level as well as repletion of her potassium. Likely related to renal losses. Time: 07:02 Vital Signs Temperature 98.7 F 01/17/17 05:34 Pulse Rate 90 01/17/17 05:34 Respiratory Rate 20 01/17/17 05:34 Blood Pressure 155/82 01/17/17 05:34 O2 Sat by Pulse Oximetry 93 01/17/17 05:34 Temperature 98.7 F 01/17/17 05:34 Pulse Rate 70 01/17/17 08:35 Respiratory Rate 16 01/17/17 08:35 Blood Pressure 137/70 01/17/17 08:35 O2 Sat by Pulse Oximetry 92 01/17/17 08:35 Oxygen Delivery Oxygen Delivery Nasal Cannula Medical Decision Making - [facility] Narrative Medical decision making narrative: 61-year-old female present for evaluation of chest pain. Patient does have significant risk factors for chest pain. Patient had a stress test done a couple months ago which were reviewed and was unremarkable. Patient states that her pain was relieved nitroglycerin as well as aspirin early this morning. Patient does have chronic comorbidities. Patient was signed out at shift change. Patient had an EKG and negative troponin. Incidentally was found that the patient was hypokalemic at 2.6. Patient's receiving oral as well as IV supplementation. Likely related to renal losses that she is on diuretics and is chronically on potassium supplementation. Patient also has low magnesium. Will replace. Patient is also anemic which appears at her baseline. Patient has lower leg bilateral erythema. Since this is bilateral less likely cellulitis. Patient will be admitted to the hospital service for further cardiac monitoring as well as electro replacement. Patient is agreeable to plan of care. - Medical Records Medical records reviewed: Yes I reviewed the patient's medical records. - Lab Data Lab results reviewed: Yes I reviewed the patient's lab results. Result diagrams: 01/17/17 06:10 01/17/17 06:10 Lab Results 01/17/17 01/17/17 01/17/17 Range/Units 06:10 06:10 06:10 WBC 10.1 (4.3-11.1) K/mcL RBC 4.29 (3.82-4.97) M/mcL Hgb 11.1 L (11.5-15.4) g/dL Hct 35.6 (35.3-44.9) % MCV 83.0 (83.0-100.0) fL MCH 25.9 L (28.0-33.3) pg MCHC 31.2 L (31.6-35.5) g/dL RDW 17.3 H (11.5-14.5) % Plt Count 244 (140-400) K/mcL MPV 11.7 (9.4-12.4) fL Immature Gran % 1.2 (0-4) % Seg Neutrophils % 62.4 % Lymphocytes % 27.4 % Monocytes % 5.9 % Eosinophils % 2.4 % Basophils % 0.7 % Neutrophils # 6.3 (1.6-8.9) K/mcL Lymphocytes # 2.8 (0.6-4.6) K/mcL Monocytes # 0.6 (0.0-1.3) K/mcL Eosinophils # 0.2 (0.0-0.6) K/mcL Basophils # 0.1 (0.0-0.2) K/mcL Nucleated RBCs/100 WBC 0.3 H (0) /100 WBC Sodium 140 (136-145) mEq/L Potassium 2.6 L (3.5-4.5) mEq/L Chloride 95 L (98-109) mEq/L Carbon Dioxide 33 H (19-29) mEq/L BUN 30 H (7-20) mg/dL Creatinine 0.92 (0.57-1.11) mg/dL Est GFR ( Amer) > 60 (> 60) Est GFR (Non-Af Amer) > 60 (> 60) BUN/Creatinine Ratio 33 H (6-26) Glucose 195 H (70-99) mg/dL Calculated Osmolality 302 H (280-300) Calcium 9.5 (8.6-10.8) mg/dL Magnesium 1.5 L (1.6-2.6) mg/dL Troponin I 0.00 (0-0.03) ng/mL B-Natriuretic Peptide (0-100) pg/mL 01/17/17 Range/Units 06:10 WBC (4.3-11.1) K/mcL RBC (3.82-4.97) M/mcL Hgb (11.5-15.4) g/dL Hct (35.3-44.9) % MCV (83.0-100.0) fL MCH (28.0-33.3) pg MCHC (31.6-35.5) g/dL RDW (11.5-14.5) % Plt Count (140-400) K/mcL MPV (9.4-12.4) fL Immature Gran % (0-4) % Seg Neutrophils % % Lymphocytes % % Monocytes % % Eosinophils % % Basophils % % Neutrophils # (1.6-8.9) K/mcL Lymphocytes # (0.6-4.6) K/mcL Monocytes # (0.0-1.3) K/mcL Eosinophils # (0.0-0.6) K/mcL Basophils # (0.0-0.2) K/mcL Nucleated RBCs/100 WBC (0) /100 WBC Sodium (136-145) mEq/L Potassium (3.5-4.5) mEq/L Chloride (98-109) mEq/L Carbon Dioxide (19-29) mEq/L BUN (7-20) mg/dL Creatinine (0.57-1.11) mg/dL Est GFR ( Amer) (> 60) Est GFR (Non-Af Amer) (> 60) BUN/Creatinine Ratio (6-26) Glucose (70-99) mg/dL Calculated Osmolality (280-300) Calcium (8.6-10.8) mg/dL Magnesium (1.6-2.6) mg/dL Troponin I (0-0.03) ng/mL B-Natriuretic Peptide < 10 (0-100) pg/mL - Radiology Data Radiology results reviewed: Yes I reviewed the patient's radiology results. Chest X-Ray 01/17/17 05:40 IMPRESSION: No acute cardiopulmonary disease D/ / Farhan Silverman MD / Farhan Silverman MD Interpreting Provider: Farhan Silverman MD S.B.A.R. - Jazmine Situation: Demographics Background: Presenting Complaint Assessment: Vital Signs, Course and respsone to treatment, Patient/Family Expectation, Pertinant Lab Results Recommendation: Barrier(s) to disposition, Recommendation based on pending studies, treatments, or consults Jazmine Report Given to: Dr. Abelardo Lucero Repor Time: 08:16 Attestation Statement - Attestation Attestation: Patient was seen with resident physician. I reviewed the history, physical, assessment and plan, and agree with the findings. I also personally evaluated this patient and had [id number] time with this patient. 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 Patient was signed out to me at approximately 7 AM with final disposition and some lab tests pending. Patient's chief complaint was chest pain. Patient states he had chest pain in the middle the night last night. Took several nitros which helped somewhat. Came into the ED then for evaluation and treatment. Upon my arrival she was hypertensive and still having some chest discomfort. She also complained of significant leg pain, she says she has had increased weight gain over the last couple days approximately 5 pounds which she says is contributing to her legs hurting. Heart and lungs are unremarkable. Admit was soft and nontender. Extremities she did have some swelling bilaterally. Also some redness anteriorly on her shins. Patient was found to have normal troponin and workup is largely unremarkable. She did have significant hypokalemia, we will treat the hypokalemia and admit the patient for further workup and evaluation for her chest pain. Hemodynamically patient was stable her blood pressure was improved after receiving some additional nitros. Agree with resident physician assessment and plan. Heart Score - Score History: Moderately Suspicious EKG: Non Specific repolarisation Disturbance Age: 45-65 Risk Factors: Equal/Greater than 3 risk factor or history of atherosclerotic disease Troponin: Less than normal limit HEART Score Total: 5
[2017-01-17 07:28] LABS: Magnesium 1.5 mg/dL (1.6-2.6)
[2017-01-17] MEDS ORDERED: 0.9 % Sodium Chloride 500 ML IVC ONE (07:28)
[2017-01-17] MEDS: Nitroglycerin 0.4 MG TAB.SUBL SL PRN ×2 (07:40→07:47)
[2017-01-17] MEDS ORDERED: Naloxone 0.4 MG/ML INJ IVP PRN (08:27)
[2017-01-17] MEDS ORDERED: Acetaminophen 325 MG TABLET PO PRN (08:27)
[2017-01-17] MEDS ORDERED: Ondansetron 4 MG/2 ML VIAL IVP PRN (08:27)
--- NOTE | 2017-01-17 08:37 | Internal Med History&Physical ---
Date of Encounter: 01/17/17 Time of Encounter: 08:50 Assessment and Plan (1) Chest pain Current visit: Yes Status: Acute Patient has atypical chest pain. Stress test 2 months ago which was normal. Left heart catheterization and septum are 2015 which revealed widely patent stents and minimal atherosclerotic disease. Reproducible chest wall tenderness. EKG does not reveal any acute abnormalities concerning for ischemia. Cardiac markers have been negative. Patient will be placed under observation on telemetry. Cardiac markers will be cycled. No indication for further echocardiogram or cardiac testing or cardiology consult. If her cardiac markers are negative and her hypokalemia and hypomagnesemia corrected, patient can be discharged back home. Qualifiers: Chest pain type: intercostal pain Qualified Code(s): R07.82 - Intercostal pain (2) Hypokalemia Current visit: Yes Status: Acute Patient is being replaced via by mouth and IV route. We will repeat BMP later today. Once her hyperkalemia is corrected and cardiac enzymes are negative 3, she can be discharged. (3) CAD (coronary artery disease) Current visit: Yes Status: Chronic Patient is on optimal medical therapy. Continue her outpatient medications. Qualifiers: Coronary Disease-Associated Artery/Lesion type: [place] artery [place] vs. transplanted heart: [place] heart Associated angina: without angina Qualified Code(s): I25.10 - Atherosclerotic heart disease of [place] coronary artery without angina pectoris (4) GERD (gastroesophageal reflux disease) Current visit: Yes Status: Chronic Continue home medication Qualifiers: Esophagitis presence: esophagitis presence not specified Qualified Code(s) : K21.9 - Gastro-esophageal reflux disease without esophagitis (5) COPD (chronic obstructive pulmonary disease) Current visit: Yes Status: Chronic Stable. Not in exacerbation. Continue home medications. Patient has quit smoking about 9 months ago. She was congratulated on the same. Qualifiers: COPD type: unspecified COPD Qualified Code(s): J44.9 - Chronic obstructive pulmonary disease, unspecified (6) Diabetes mellitus Current visit: Yes Status: Chronic Adequately controlled sugars. Continue home medications. Sliding scale insulin. Diabetic diet. Continue home Neurontin. 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 Continue home dose of Synthroid. Qualifiers: Hypothyroidism type: acquired Qualified Code(s): E03.9 - Hypothyroidism, unspecified (8) HTN (hypertension) Current visit: Yes Status: Chronic Adequately controlled blood pressure. Continue current home medications. Qualifiers: Hypertension type: essential hypertension Qualified Code(s): I10 - Essential (primary) hypertension (9) Hypomagnesemia Current visit: Yes Status: Acute Being replaced intravenously. (10) Morbid obesity with BMI of 40.0-44.9, adult Current visit: No Status: Chronic Internal Medicine - H&P: HPI Chief complaint: Chest pain Admitted From: Emergency Dept Plans for Post Hospital Care: Home History of present illness: Ms. Lynch is a 61 year old female with a history of coronary artery disease status post stenting in the past and a recent left heart catheterization in April 2015 which revealed widely patent stents with minimal atherosclerotic disease and a stress test in October 2016 which was normal presence to the emergency department due to sudden onset chest pain. Patient states that she had sudden onset pain that started last night of about 7/10 in intensity on the right side of her chest that is stabbing in nature without any radiation. No aggravating or relieving factors. She has mild nausea but no vomiting. Reports intermittent palpitations. Also reports lightheadedness. Denies abdominal pain, diarrhea or constipation. Reports baseline shortness of breath for which she uses oxygen as needed. Past Med Surg Social Fam HX - Past Medical History Attestation: Yes The following information was validated with the patient. Source: patient Medical history: arthritis, COPD, coronary artery disease, diabetes, GERD, hyperlipidemia, hypertension, osteoporosis, thyroid disease, TIA, venous stasis Psychiatric history: anxiety, bipolar, depression, panic disorder - Past Surgical History Surgical History: angioplasty/stent, , cholecystectomy, hysterectomy - Social History Smoking Status: Former smoker Smokeless Tobacco Status: No Alcohol use: none Drug use: none - Family History Father Adopted: No Family Member Ethnicity: Non- Living Status: Hx Family Cardiac Disorders: Yes Mother Adopted: No Family Member Ethnicity: Non- Living Status: Hx Family Cardiac Disorders: Yes ([place]) Hx Family Respiratory Disorders: No Hx Family Cancer: No Hx Family GI Disorders: No Hx Family Endocrine Disorder: Yes (DM) Hx Family Neuromuscular Disorders: No Hx Family Neurologic Disorders: Yes ([place]) Hx Family HEENT Disorders: No Hx Family Autoimmune Disorders: No Internal Medicine - H&P: Meds Budesonide/Formoterol 160/4.5 [Symbicort] 2 puff IH BIDR 04/21/15 [History] Gabapentin [Neurontin] 800 mg PO TID 04/21/15 [History] Levothyroxine [Synthroid] 100 mcg PO QAM 04/21/15 [History] Tiotropium [Spiriva] 1 puff IH QAM 04/21/15 [History] metFORMIN [Glucophage] 1,000 mg PO BID 04/21/15 [History] Amlodipine Besylate 2.5 mg PO DAILY 12/27/15 [History] Atorvastatin Calcium [Lipitor] 40 mg PO DAILY 02/04/16 [History] Buspirone HCl [Buspar] 15 mg PO TID 02/04/16 [History] Montelukast [Singulair] 10 mg PO HS 02/04/16 [History] Oxygen 2 l NS AD PRN 03/17/16 [History] Insulin Glargine [Lantus] 70 unit SQ QAM 03/25/16 [History] Insulin Glargine [Lantus] 90 unit SQ QPM 03/25/16 [History] Albuterol Sulfate [Albuterol Inhaler] 2 puff IH Q4HR PRN 05/01/16 [History] Citalopram Hydrobromide [Citalopram HBr] 40 mg PO DAILY 05/01/16 [History] Ipratropium/Albuterol Neb [Duoneb] 3 ml IH Q6H PRN 05/01/16 [History] Raloxifene [Evista] 60 mg PO DAILY 05/01/16 [History] traMADol [Ultram] 50 mg PO BID 05/01/16 [History] Aripiprazole [Abilify] 10 mg PO HS tablet 05/03/16 [Rx] clonazePAM [Klonopin] 1 mg PO TID tablet 05/03/16 [Rx] Fenofibrate Nanocrystallized [Tricor] 145 mg PO DAILY 06/15/16 [History] Promethazine [Phenergan] 25 mg PO Q12H PRN 06/15/16 [History] Clopidogrel [Plavix] 75 mg PO QAM tablet 06/18/16 [Rx] Buprenorphine [Butrans] 10 mcg TD QWEEK 06/27/16 [History] Ondansetron HCl [Zofran] 4 mg PO Q6H PRN #20 tablet 08/07/16 [Rx] Baclofen [Lioresal] 10 mg PO 2-3XD 08/24/16 [History] Metoprolol Tartrate 25 mg PO BID 08/24/16 [History] Omeprazole [PriLOSEC] 20 mg PO BID 08/24/16 [History] Bumetanide 2 mg PO BID 11/21/16 [History] Meclizine [Antivert] 25 mg PO DAILY PRN 11/21/16 [History] Oxycodone HCl/Acetaminophen [Percocet 5-325 mg Tablet] 1 tab PO Q4H PRN [History] Aspirin 81 mg PO DAILY #60 tab.chew 12/06/16 [Rx] Nystatin POWDER [Nystop] 1 appl TP BID 12/14/16 [History] Gabapentin [Neurontin] 1,600 mg PO HS 12/31/16 [History] Isosorbide MONOnitrate (24 HR) [Imdur] 30 mg PO QAM 12/31/16 [History] Magnesium Oxide [Magnesium] 800 mg PO BID 12/31/16 [History] Vit D3/Folic Acid/B2/B6/B12 1 tab PO BID 12/31/16 [History] metOLazone [Zaroxolyn] 5 mg PO Q48H 12/31/16 [History] Positiveairwaypressure-Bilevel [Bilevel positive airway pressure] 1 each IN HS # 1 each 01/02/17 [Rx] Potassium Chloride 40 meq PO BID #120 tab.er.prt 01/02/17 [Rx] Allergies No Known Allergies Allergy (Verified 11/12/16 02:17) All Systems PM: A 10-system review of systems was performed and is negative for pertinent findings except as documented above in the HPI. Review of systems: 10 systems have been reviewed and are negative except as mentioned in the history of present illness - Constitutional Vitals: Temp Pulse Resp BP Pulse Ox 98.7 F 90 16 135/71 91 01/17/17 05:34 01/17/17 07:54 01/17/17 07:54 01/17/17 07:54 01/17/17 07:54 Exam: Gen.: Lying in bed. No acute distress. Eyes: Pupils equal, round and reactive to light. Extraocular muscles intact. ENT: Moist mucous membranes. No oropharyngeal erythema or discharge. Chest: Clear to auscultation bilaterally. No adventitious sounds present. CVS: First and second heart sounds present. No murmurs, rubs or gallops. Reproducible chest wall tenderness on the right side of the chest. Abdomen: Soft, nontender, nondistended. Bowel sounds present. No hepatosplenomegaly. Skin: No decubitus ulcers appreciated. GETTER WELDER: No focal neuro deficits present. Psychiatric: Alert, awake and oriented to time, place and person. Lymphatic system: No lymphadenopathy appreciated Internal Med - H&P Results - Labs CBC & Chem 7: 01/17/17 06:10 01/17/17 06:10 Labs: Short CBC 01/17/17 Range/Units 06:10 WBC 10.1 (4.3-11.1) K/mcL Hgb 11.1 L (11.5-15.4) g/dL Hct 35.6 (35.3-44.9) % Plt Count 244 (140-400) K/mcL Neutrophils # 6.3 (1.6-8.9) K/mcL BMP 01/17/17 06:10 Sodium 140 Potassium 2.6 L Chloride 95 L Carbon Dioxide 33 H BUN 30 H Creatinine 0.92 Glucose 195 H Calcium 9.5 Cardiac Enzymes 01/17/17 Range/Units 06:10 Troponin I 0.00 (0-0.03) ng/mL - EKG Data -: EKG Interpreted by Myself EKG shows normal: sinus rhythm, ST-T waves (Nonspecific ST-T wave changes) - Impressions ITS Impressions Chest X-Ray 01/17/17 05:40 IMPRESSION: No acute cardiopulmonary disease D/ / Farhan Silverman MD / Farhan Silverman MD Interpreting Provider: Farhan Silverman MD - Diagnostic Studies Chest x-ray Status: image reviewed by me (No acute abnormalities demonstrated)
[2017-01-17] MEDS ORDERED: NON-FORMULARY MEDICATION 1 EACH EACH (Oxygen [Oxygen] 2 L) NS PRN (09:28)
[2017-01-17] MEDS ORDERED: metOLazone 5 MG TABLET PO SCH (09:30)
[2017-01-17] MEDS ORDERED: BUPRENORPHINE 10 MCG TP SCH (09:30)
[2017-01-17] MEDS ORDERED: D5% in Water 1,000 ML IVC PRN (10:13)
[2017-01-17] MEDS ORDERED: *HR* Dextrose 50 % in Water (Syg) 50 ML SYRINGE IVP PRN (10:13)
[2017-01-17] MEDS ORDERED: Dextrose Gel 15 GM PO PRN ×2 (10:13)
[2017-01-17] MEDS: Insulin LISPRO 300 UNITS/3 ML VIAL SQ SCH ×2 (11:24→17:26)
[2017-01-17] MEDS: Budesonide/Formoterol 160/4.5 MDI IH SCH ×2 (11:27→20:22)
[2017-01-17] MEDS: Gabapentin 400 MG CAPSULE PO SCH ×2 (15:54→21:07)
[2017-01-17 17:45] LABS: BUN/Creatinine Ratio 26 (6-26); Blood Urea Nitrogen 22 mg/dL (7-20); Calcium 9.5 mg/dL (8.6-10.8); Carbon Dioxide 32 mEq/L (19-29); Chloride 98 mEq/L (98-109); Glucose 276 mg/dL (70-99); Osmolality,Calculated 303 (280-300); Sodium 140 mEq/L (136-145); eGFR For African Americans > 60 (> 60); eGFR For Non-African Americans > 60 (> 60)
[2017-01-17 17:46] LABS: Potassium 3.7 mEq/L (3.5-4.5)
[2017-01-17] MEDS ORDERED: Insulin DETEMIR 100 UNIT/ML X5UNITS SQ SCH (18:00)
[2017-01-17] MEDS ORDERED: NON-FORMULARY MEDICATION 1 EACH EACH (Insulin Glargine [Lantus] 90 UNIT) SQ SCH (18:00)
--- NOTE | 2017-01-17 18:59 | Electrocardiograph Report ---
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
[2017-01-17] MEDS ORDERED: ARIPiprazole 10 MG TABLET PO SCH (21:00)
[2017-01-17] MEDS ORDERED: Insulin LISPRO 300 UNITS/3 ML VIAL SQ SCH (21:00)
[2017-01-17] MEDS: Bumetanide 1 MG TABLET PO SCH (21:07)
[2017-01-17] MEDS: Magnesium Oxide 400 MG TABLET PO SCH (21:08)
[2017-01-17] MEDS: *HR* Metformin 500 MG TABLET PO SCH (21:08)
[2017-01-17] MEDS: Nystatin POWDER 30 GM BOTTLE TP SCH (22:23)
[2017-01-17] MEDS: clonazePAM 1 MG TABLET PO SCH (22:23)
[2017-01-17] MEDS: traMADol 50 MG TABLET PO SCH (23:47)
[2017-01-18 02:34] LABS: BUN/Creatinine Ratio 25 (6-26); Blood Urea Nitrogen 19 mg/dL (7-20); Calcium 10.1 mg/dL (8.6-10.8); Carbon Dioxide 34 mEq/L (19-29); Chloride 96 mEq/L (98-109); Glucose 201 mg/dL (70-99); Magnesium 1.5 mg/dL (1.6-2.6); Osmolality,Calculated 298 (280-300); Potassium 3.2 mEq/L (3.5-4.5); Sodium 140 mEq/L (136-145); eGFR For African Americans > 60 (> 60); eGFR For Non-African Americans > 60 (> 60)
[2017-01-18] MEDS: Budesonide/Formoterol 160/4.5 MDI IH SCH (08:14)
[2017-01-18] MEDS: Bumetanide 1 MG TABLET PO SCH (08:22)
[2017-01-18] MEDS: *HR* Metformin 500 MG TABLET PO SCH (08:22)
[2017-01-18] MEDS: Gabapentin 400 MG CAPSULE PO SCH ×2 (08:22→14:23)
[2017-01-18] MEDS: traMADol 50 MG TABLET PO SCH (08:23)
[2017-01-18] MEDS: Nystatin POWDER 30 GM BOTTLE TP SCH (08:24)
[2017-01-18] MEDS: clonazePAM 1 MG TABLET PO SCH ×2 (08:24→14:23)
[2017-01-18] MEDS: Magnesium Oxide 400 MG TABLET PO SCH (08:24)
[2017-01-18] MEDS: Insulin LISPRO 300 UNITS/3 ML VIAL SQ SCH ×2 (08:26→12:22)
[2017-01-18] MEDS ORDERED: Aspirin 81 MG TAB.CHEW PO SCH (09:00)
[2017-01-18] MEDS ORDERED: amLODIPine 5 MG TABLET PO SCH (09:00)
[2017-01-18] MEDS ORDERED: NON-FORMULARY MEDICATION 1 EACH EACH (Insulin Glargine [Lantus] 70 UNIT) SQ SCH (09:00)
[2017-01-18] MEDS ORDERED: Tiotropium 18 MCG inhalation IH SCH (09:00)
[2017-01-18] MEDS ORDERED: Insulin DETEMIR 100 UNIT/ML X5UNITS SQ SCH (09:00)
[2017-01-18] MEDS ORDERED: Isosorbide MONOnitrate (24 HR) 30 MG TAB.ER.24H PO SCH (09:00)
[2017-01-18 15:34] VITALS: BP 125/63
--- NOTE | 2017-01-18 16:52 | Discharge Summary ---
Date of Encounter: 01/18/17 Time of Encounter: 09:50 - Discharge Diagnosis (1) Chest pain Priority: Primary Status: Acute Comments: Patient reports that she came to the emergency room last night due to headache and chest pain and states that she knew her potassium was low. She says her chest pain is midsternal with pressure that began at midnight it was relieved with nitroglycerin and aspirin at home. Pain began again at 4 AM and she says that she had leg cramps bilaterally. He denies chest pain today. Her troponins were negative. Patient had an echocardiogram in May 2016. LVEF is 65%, normal systolic function, indeterminate diastolic dysfunction. Mildly dilated RV with normal function, no significant valvular dysfunction and no evidence for pulmonary hypertension. EKG on arrival showed normal sinus rhythm with a rate of 84, [place] interval was 140 every TC is 429. Patient had a stress test 11/23/2016. Showed no significant ECG changes during stress test and medication administration, gated LVEF is greater than 70% and perfusion imaging was negative for ischemia or infarct. Patient had carotid Dopplers done in November, in bilateral carotids have minimal plaque throughout non-stenotic. Patient has denied chest pain today. Lungs are clear, minimal edema to bilateral lower extremities patient says is normal for her. Patient does have venous stasis obvious in both legs. No ulcerations at this time. Legs are not warm to the touch. She says her legs look normal. She follows up with primary care physician Qualifiers: Chest pain type: intercostal pain Qualified Code(s): R07.82 - Intercostal pain (2) Hypokalemia Priority: Secondary Status: Resolved Comments: Potassium within normal limits. She was given another K rider today. Continue potassium supplementation at home. (3) Diabetes Priority: Secondary Status: Chronic Comments: Chronic. Continue home medications. 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 mellitus type: type 2 Diabetes mellitus complication status: with other specified complication Diabetes mellitus shelter insulin use: unspecified shelter insulin use status Qualified Code(s): E11.69 - Type 2 diabetes mellitus with other specified complication (4) Hyperlipidemia Priority: Secondary Status: Chronic Comments: Chronic. Continue home medications. Qualifiers: Hyperlipidemia type: unspecified Qualified Code(s): E78.5 - Hyperlipidemia , unspecified (5) CAD (coronary artery disease) Priority: Secondary Status: Chronic Comments: Continue aspirin, Plavix, beta randy, Imdur. Qualifiers: Coronary Disease-Associated Artery/Lesion type: [place] artery [place] vs. transplanted heart: [place] heart Associated angina: without angina Qualified Code(s): I25.10 - Atherosclerotic heart disease of [place] coronary artery without angina pectoris (6) Depression Priority: Secondary Status: Chronic Comments: Chronic. Continue medication at home. Qualifiers: Depression Type: unspecified Qualified Code(s): F32.9 - Major depressive disorder, single episode, unspecified (7) GERD (gastroesophageal reflux disease) Priority: Secondary Status: Chronic Comments: Chronic. Continue medication at home. Qualifiers: Esophagitis presence: esophagitis presence not specified Qualified Code(s) : K21.9 - Gastro-esophageal reflux disease without esophagitis (8) COPD (chronic obstructive pulmonary disease) Priority: Secondary Status: Chronic Comments: No acute exacerbation at this time. Lungs are clear and diminished throughout. No wheezing rhonchi Rales or tachypnea. Continue home medication. Qualifiers: COPD type: unspecified COPD Qualified Code(s): J44.9 - Chronic obstructive pulmonary disease, unspecified (9) DVT prophylaxis Priority: Secondary Status: Acute - Discharge Medications Home Medications: Budesonide/Formoterol 160/4.5 [Symbicort] 2 puff IH BIDR 04/21/15 [History] Gabapentin [Neurontin] 800 mg PO TID 04/21/15 [History] Levothyroxine [Synthroid] 100 mcg PO QAM 04/21/15 [History] Tiotropium [Spiriva] 1 puff IH QAM 04/21/15 [History] metFORMIN [Glucophage] 1,000 mg PO BID 04/21/15 [History] Amlodipine Besylate 2.5 mg PO DAILY 12/27/15 [History] Atorvastatin Calcium [Lipitor] 40 mg PO DAILY 02/04/16 [History] Buspirone HCl [Buspar] 15 mg PO TID 02/04/16 [History] Montelukast [Singulair] 10 mg PO HS 02/04/16 [History] Oxygen 2 l NS AD PRN 03/17/16 [History] Insulin Glargine [Lantus] 70 unit SQ QAM 03/25/16 [History] Insulin Glargine [Lantus] 90 unit SQ QPM 03/25/16 [History] Albuterol Sulfate [Albuterol Inhaler] 2 puff IH Q4HR PRN 05/01/16 [History] Citalopram Hydrobromide [Citalopram HBr] 40 mg PO DAILY 05/01/16 [History] Ipratropium/Albuterol Neb [Duoneb] 3 ml IH Q6H PRN 05/01/16 [History] Raloxifene [Evista] 60 mg PO DAILY 05/01/16 [History] traMADol [Ultram] 50 mg PO BID 05/01/16 [History] Aripiprazole [Abilify] 10 mg PO HS tablet 05/03/16 [Rx] clonazePAM [Klonopin] 1 mg PO TID tablet 05/03/16 [Rx] Fenofibrate Nanocrystallized [Tricor] 145 mg PO DAILY 06/15/16 [History] Promethazine [Phenergan] 25 mg PO Q12H PRN 06/15/16 [History] Clopidogrel [Plavix] 75 mg PO QAM tablet 06/18/16 [Rx] Buprenorphine [Butrans] 10 mcg TD QWEEK 06/27/16 [History] Ondansetron HCl [Zofran] 4 mg PO Q6H PRN #20 tablet 08/07/16 [Rx] Baclofen [Lioresal] 10 mg PO 2-3XD 08/24/16 [History] Metoprolol Tartrate 25 mg PO BID 08/24/16 [History] Omeprazole [PriLOSEC] 20 mg PO BID 08/24/16 [History] Bumetanide 2 mg PO BID 11/21/16 [History] Meclizine [Antivert] 25 mg PO DAILY PRN 11/21/16 [History] Oxycodone HCl/Acetaminophen [Percocet 5-325 mg Tablet] 1 tab PO Q4H PRN [History] Aspirin 81 mg PO DAILY #60 tab.chew 12/06/16 [Rx] Nystatin POWDER [Nystop] 1 appl TP BID 12/14/16 [History] Gabapentin [Neurontin] 1,600 mg PO HS 12/31/16 [History] Isosorbide MONOnitrate (24 HR) [Imdur] 30 mg PO QAM 12/31/16 [History] Magnesium Oxide [Magnesium] 800 mg PO BID 12/31/16 [History] Vit D3/Folic Acid/B2/B6/B12 1 tab PO BID 12/31/16 [History] metOLazone [Zaroxolyn] 5 mg PO Q48H 12/31/16 [History] Positiveairwaypressure-Bilevel [Bilevel positive airway pressure] 1 each IN HS # 1 each 01/02/17 [Rx] Potassium Chloride 40 meq PO BID #120 tab.er.prt 01/02/17 [Rx] Allergies/Adverse Reactions: Allergies No Known Allergies Allergy (Verified 11/12/16 02:17) Date of admission: 01/17/17 09:05 Primary care physician: Corey Waddell, Consults: 01/17/17 11:49 Consult to [employer]ing [employer] [CONS] Routine Reason for SW Consult: re admit Discharging clinician: Maci Woodall Anticipated date of discharge: 01/18/17 - Patient Status Disposition: Home, Self-Care Condition: Good Functional capacity at discharge: independent ambulation Overall status at discharge: patient is back to baseline - Discharge Instructions Follow Up With: Corey Waddell DO [Primary Care Provider] - 02/04/17 12:00 pm Additional Instructions: Please follow up with cardiology and with your family doctor within the next week to 10 days. Return to the ER as needed for any change in your condition or for any other concerns or problems. Continue your home medicaitons. Make sure that you are taking your medications every day. - Diet and Activity Activity: increase activity as tolerated, resume usual activities as tolerated Diet: diabetic diet, low fat, low cholesterol, low salt diet Interval History: Mrs. Lynch is a 61-year-old female who is admitted to the emergency department last night for atypical chest pain. She said that midsternal pressure awakened her at midnight. She states that the pain was relieved with nitroglycerin and aspirin. She awakened again at 4:00 and had leg cramps that time. Chest pain had resolved. Patient lives at home with her and son. She said that she had headache and chest pain and knew that her potassium was low as these are her symptoms she has when she has hypokalemia other times. She was hypokalemic on admission and he was treated with a K rider, subsequent redraw showed hypokalemia again. I gave her another K rider this morning that has resolved her hypokalemia. Magnesium is 1.5. Patient does take potassium and mag ox at home daily. She says sometimes she is not adherent to taking her medications daily. I did encourage her to continue to avoid the feelings that she is having at this time and avoid admission. She has not had any chest pain since admission. Stress test done in October 2016 showed no significant EKG changes with the medication, gated EF was greater than 70%, perfusion imaging was negative for ischemia or infarct. EKG on arrival showed normal sinus rhythm with a rate of 84, [place] interval of 140, and QTc 429. Troponins were negative. Patient's last echocardiogram in May 2016 showed LVEF of 65%, normal systolic function and indeterminant diastolic dysfunction area no evidence of pulmonary hypertension. Labs are within normal limits. Patient states that she is ready to go home. Patient is stable for discharge. Hospital course: Ms. Lynch is a 61 year old female - Time Spent with Patient Total time spent providing and/or coordinating discharge services: Less than 30 minutes - Constitutional Vitals: Temp Pulse Resp BP Pulse Ox 98.1 F 65 16 125/63 91 01/18/17 15:33 01/18/17 15:33 01/18/17 15:33 01/18/17 15:33 01/18/17 15:33 General appearance: Present: cooperative, A&O X 3, pleasant, no acute distress, answers questions appropriately - Head Head exam: Present: normal inspection - Eye Eye exam: Present: normal appearance, conjuntiva pink - ENT ENT exam: Present: mucous membranes moist, normal exam - Neck Neck exam general surgery: Present: normal inspection. Absent: lymphadenopathy , tenderness - Respiratory Respiratory exam: Present: CTAB. Absent: rales, rhonchi, stridor, wheezes - Cardiovascular Cardiovascular exam: Present: RRR, +S1, +S2. Absent: diastolic murmur, systolic murmur - GI/Abdominal GI/Abdominal exam: Present: normal bowel sounds, soft. Absent: hepatomegaly, mass, tenderness - Extremities Exam Extremities exam: Present: full ROM, pedal edema, radial pulses palpable and symetrical. Absent: calf tenderness, joint swelling, normal inspection, tenderness, warm - Neurological Exam Neurological exam: Present: alert, oriented X3, no focal deficits, strengths equal and symetr throughout. Absent: facial droop, speech deficit
== END 2017-01-18 17:35 | disposition home or self-care (01) ==
LOC: EMEROO 05:32 → 3BNU 05:32
PROVIDERS: ADMIT Internal Medicine Sleep Medicine; ATTEND Nurse Practitioner Family

== ENCOUNTER 2017-01-26 16:01 | Observation (INO) ==
[~2017-01-26 16:01] MED LIST: Aminoglycoside Consult 1 EACH MC ONE
[2017-01-26] MEDS ORDERED: Aspirin 81 MG TAB.CHEW PO ONE (16:16)
--- NOTE | 2017-01-26 16:30 | Emergency Department Note ---
Disposition Clinical Impression: Cellulitis Qualifiers: Site of cellulitis: extremity Site of cellulitis of extremity: lower extremity Laterality: unspecified laterality Qualified Code(s): L03.119 - Cellulitis of unspecified part of limb Chest pain Qualifiers: Chest pain type: unspecified Qualified Code(s): R07.9 - Chest pain, unspecified Disposition: Admitted As Inpatient Condition: Fair Referrals: Corey Waddell DO [Primary Care Provider] - Forms: ED Satisfaction Letter Time of Disposition: 18:39 Chest Pain HPI - General Chief Complaint: ED Chest Pain Stated Complaint: chest pain Time Seen by Provider: 01/26/17 16:12 Source: patient Limitations: no limitations Vital Signs Reviewed: Yes Nursing Notes Reviewed: Yes - History of Present Illness HPI Narrative: 61-year-old comes in complaining of chest pain and also bilateral lower extremity redness and pain. Patient states that that she thinks her potassium magnesium low due to having some chest discomfort and a headache. She also states that she's noticed increasing redness of bilateral lower extremities. She states her dog scratched her legs and now she has what she thinks is an infection. Pt complaint: chest pain Onset (ago): Just WINEMAKER Duration: intermittent Onset: during rest Pain Location: substernal, left chest Severity: moderate Severity scale (1-10): 6 Quality: tightness, aching Pain Radiation: none Improves with: nothing Worsens with: nothing Associated symptoms: Denies: nausea, vomiting Treatments prior to arrival chest pain: none - Related Data Home Medications Medication Instructions Recorded Confirmed Budesonide/Formoterol 160/4.5 2 puff IH BIDR 04/21/15 01/26/17 [Symbicort] Gabapentin [Neurontin] 800 mg PO TID 04/21/15 01/26/17 Levothyroxine [Synthroid] 100 mcg PO QAM 04/21/15 01/26/17 Tiotropium [Spiriva] 1 puff IH QAM 04/21/15 01/26/17 metFORMIN [Glucophage] 1,000 mg PO BID 04/21/15 01/26/17 Amlodipine Besylate 2.5 mg PO DAILY 12/27/15 01/26/17 Atorvastatin Calcium [Lipitor] 40 mg PO DAILY 02/04/16 01/26/17 Buspirone HCl [Buspar] 15 mg PO TID 02/04/16 01/26/17 Montelukast [Singulair] 10 mg PO HS 02/04/16 01/26/17 Oxygen 2 l NS AD PRN 03/17/16 01/26/17 Insulin Glargine [Lantus] 80 unit SQ QAM 03/25/16 01/26/17 Insulin Glargine [Lantus] 90 unit SQ QPM 03/25/16 01/26/17 Albuterol Sulfate [Albuterol 2 puff IH Q4HR PRN 05/01/16 01/26/17 Inhaler] Citalopram Hydrobromide 40 mg PO DAILY 05/01/16 01/26/17 [Citalopram HBr] Ipratropium/Albuterol Neb [Duoneb] 3 ml IH Q6H PRN 05/01/16 01/26/17 Raloxifene [Evista] 60 mg PO DAILY 05/01/16 01/26/17 traMADol [Ultram] 50 mg PO BID 05/01/16 01/26/17 Fenofibrate Nanocrystallized 145 mg PO DAILY 06/15/16 01/26/17 [Tricor] Promethazine [Phenergan] 25 mg PO Q12H PRN 06/15/16 01/26/17 Buprenorphine [Butrans] 10 mcg TD QWEEK 06/27/16 01/26/17 Baclofen [Lioresal] 10 mg PO 2-3XD 08/24/16 01/26/17 Metoprolol Tartrate 25 mg PO BID 08/24/16 01/26/17 Omeprazole [PriLOSEC] 20 mg PO BID 08/24/16 01/26/17 Bumetanide 2 mg PO DAILY 11/21/16 01/26/17 Meclizine [Antivert] 25 mg PO DAILY PRN 11/21/16 01/26/17 Oxycodone HCl/Acetaminophen 1 tab PO Q4H PRN 11/21/16 01/26/17 [Percocet 5-325 mg Tablet] Nystatin POWDER [Nystop] 1 appl TP BID 12/14/16 01/26/17 Gabapentin [Neurontin] 1,600 mg PO HS 12/31/16 01/26/17 Isosorbide MONOnitrate (24 HR) 30 mg PO QAM 12/31/16 01/26/17 [Imdur] Magnesium Oxide [Magnesium] 800 mg PO BID 12/31/16 01/26/17 Vit D3/Folic Acid/B2/B6/B12 1 tab PO BID 12/31/16 01/26/17 metOLazone [Zaroxolyn] 5 mg PO Q48H 12/31/16 01/26/17 Previous Rx's Medication Instructions Recorded Aripiprazole [Abilify] 10 mg PO HS tablet 05/03/16 clonazePAM [Klonopin] 1 mg PO TID tablet 05/03/16 Clopidogrel [Plavix] 75 mg PO QAM tablet 06/18/16 Ondansetron HCl [Zofran] 4 mg PO Q6H PRN #20 tablet 08/07/16 Aspirin 81 mg PO DAILY #60 tab.chew 12/06/16 Potassium Chloride 40 meq PO BID #120 tab.er.prt 01/02/17 Allergies Allergy/AdvReac Type Severity Reaction Status Date / Time No Known Allergies Allergy Verified 11/12/16 02:17 All systems ED: reviewed and negative except as stated. Constitutional: Denies: fever, chills, weakness, weight change Eyes: Denies: eye pain, eye discharge, vision change ENT ED: Denies: ear pain, throat pain, dental pain, hearing loss, epistaxis, congestion, dysphagia Cardiovascular: Reports: chest pain. Denies: palpitations, dyspnea on exertion , edema, syncope Respiratory: Denies: cough, dyspnea, wheezes, hemoptysis, stridor Gastrointestinal: Denies: abdominal pain, nausea, vomiting, diarrhea, constipation, hematemesis, melena, hematochezia Genitourinary: Denies: dysuria, frequency, hematuria, discharge Musculoskeletal: Reports: arthralgia, myalgia. Denies: back pain, neck pain Integumentary: Denies: rash, abrasion, lesions Neurological: Denies: headache, weakness, numbness, paresthesias, confusion, abnormal gait, vertigo Psychiatric: Denies: anxiety, depression, suicidal thoughts, homicidal thoughts , auditory hallucinations, visual hallucinations Endocrine: Denies: fatigue Hematological/Lymphatic: Denies: easy bleeding, easy bruising Allergic/Immunologic: Denies: facial swelling, urticaria Chest Pain PMH - Past Medical History Medical history: Reports: arthritis, CHF, COPD, coronary artery disease, diabetes, GERD, hyperlipidemia, hypertension, osteoporosis, thyroid disease, TIA , venous stasis, other Surgical history: Reports: angioplasty/stent, , cholecystectomy, hysterectomy, other Psychiatric history: Reports: anxiety, bipolar, depression, panic disorder [employer]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 - Social History Smoking Status: Former smoker Alcohol use: Reports: none Drug use: Reports: none Physical Exam - General Limitations: no limitations General appearance: alert - Head Head exam: atraumatic, normocephalic, normal inspection - Eye Eye exam: Present: normal appearance, PERRL, EOMI - ENT ENT exam: normal exam, normal oropharynx, mucous membranes moist - Neck Neck exam: Present: normal inspection, full ROM, trachea midline - Chest Chest inspection: Present: normal inspection, symmetric chest wall rise - Respiratory Respiratory exam: Present: normal lung sounds bilaterally - Cardiovascular Cardiovascular exam: Present: regular rate, normal rhythm, normal heart sounds - Abdominal Exam Abdominal exam: Present: soft, Non-Tender. Absent: tenderness, distention, guarding, rebound, rigidity - Extremities Exam Extremities exam: Present: pedal edema - Expanded Lower Extremity Exam Lower leg exam: Present: erythema (I lateral legs bright red warm to touch) Neurovascular/Tendon exam: Absent: motor deficit, sensory deficit, tendon deficit Gait: observed and normal - Back Exam Back exam: Present: normal inspection, full ROM. Absent: tenderness - Neurological Exam Neurological exam: Present: alert, oriented X3 - Psychiatric Psychiatric exam: Present: normal affect, normal mood - Skin Skin exam: Present: warm, dry, intact, normal color Course - Reevaluation(s) Reevaluation #1: 61-year-old who comes in complaining of chest pain lower extremity pain and swelling. Workup included chest pain workup which was negative I do note she had an echo on 05/2016 which showed an EF of 65% she also had a stress test on that showed no acute ischemic changes and EF greater than 70%. Noted to have significant swelling and redness about the lower extremities below the knee very warm to touch and she says there were scratches they're made by her dog. This appears to be infected we will admit her for IV antibiotics. Time: 18:41 - Consultations Consultation #1: Discussed with , admit. Time: 19:33 Vital Signs Temperature 99.4 F 01/26/17 16:06 Pulse Rate 106 01/26/17 16:06 Respiratory Rate 18 01/26/17 16:06 Blood Pressure 109/77 01/26/17 16:06 O2 Sat by Pulse Oximetry 90 01/26/17 16:06 Temperature 99.4 F 01/26/17 16:06 Pulse Rate 96 01/26/17 18:48 Respiratory Rate 18 01/26/17 18:48 Blood Pressure 127/62 01/26/17 18:48 O2 Sat by Pulse Oximetry 95 01/26/17 18:48 Oxygen Delivery Oxygen Delivery Nasal Cannula Chest Pain - Lab Data Lab results reviewed: Yes I reviewed the patient's lab results. Result diagrams: 01/26/17 17:15 01/26/17 17:15 Lab Results 01/26/17 01/26/17 01/26/17 Range/Units 17:15 17:15 17:15 WBC 11.6 H (4.3-11.1) K/mcL RBC 4.32 (3.82-4.97) M/mcL Hgb 11.3 L (11.5-15.4) g/dL Hct 35.9 (35.3-44.9) % MCV 83.1 (83.0-100.0) fL MCH 26.2 L (28.0-33.3) pg MCHC 31.5 L (31.6-35.5) g/dL RDW 16.6 H (11.5-14.5) % Plt Count 218 (140-400) K/mcL MPV 11.0 (9.4-12.4) fL Immature Gran % 1.2 (0-4) % Seg Neutrophils % 66.0 % Lymphocytes % 25.7 % Monocytes % 4.5 % Eosinophils % 1.9 % Basophils % 0.7 % Neutrophils # 7.6 (1.6-8.9) K/mcL Lymphocytes # 3.0 (0.6-4.6) K/mcL Monocytes # 0.5 (0.0-1.3) K/mcL Eosinophils # 0.2 (0.0-0.6) K/mcL Basophils # 0.1 (0.0-0.2) K/mcL Nucleated RBCs/100 WBC 0.3 H (0) /100 WBC PT 11.0 (9.4-12.1) Seconds INR 1.0 APTT 26.5 (26.0-36.0) Seconds Sodium (136-145) mEq/L Potassium (3.5-4.5) mEq/L Chloride (98-109) mEq/L Carbon Dioxide (19-29) mEq/L BUN (7-20) mg/dL Creatinine (0.57-1.11) mg/dL Est GFR ( Amer) (> 60) Est GFR (Non-Af Amer) (> 60) BUN/Creatinine Ratio (6-26) Glucose (70-99) mg/dL Calculated Osmolality (280-300) Calcium (8.6-10.8) mg/dL Magnesium (1.6-2.6) mg/dL Troponin I (0-0.03) ng/mL B-Natriuretic Peptide < 10 (0-100) pg/mL 01/26/17 01/26/17 01/26/17 Range/Units 17:15 17:15 17:15 WBC (4.3-11.1) K/mcL RBC (3.82-4.97) M/mcL Hgb (11.5-15.4) g/dL Hct (35.3-44.9) % MCV (83.0-100.0) fL MCH (28.0-33.3) pg MCHC (31.6-35.5) g/dL RDW (11.5-14.5) % Plt Count (140-400) K/mcL MPV (9.4-12.4) fL Immature Gran % (0-4) % Seg Neutrophils % % Lymphocytes % % Monocytes % % Eosinophils % % Basophils % % Neutrophils # (1.6-8.9) K/mcL Lymphocytes # (0.6-4.6) K/mcL Monocytes # (0.0-1.3) K/mcL Eosinophils # (0.0-0.6) K/mcL Basophils # (0.0-0.2) K/mcL Nucleated RBCs/100 WBC (0) /100 WBC PT (9.4-12.1) Seconds INR APTT (26.0-36.0) Seconds Sodium 139 (136-145) mEq/L Potassium 2.6 L (3.5-4.5) mEq/L Chloride 90 L (98-109) mEq/L Carbon Dioxide 36 H (19-29) mEq/L BUN 23 H (7-20) mg/dL Creatinine 0.81 (0.57-1.11) mg/dL Est GFR ( Amer) > 60 (> 60) Est GFR (Non-Af Amer) > 60 (> 60) BUN/Creatinine Ratio 28 H (6-26) Glucose 127 H (70-99) mg/dL Calculated Osmolality 293 (280-300) Calcium 9.3 (8.6-10.8) mg/dL Magnesium 1.0 L (1.6-2.6) mg/dL Troponin I 0.00 (0-0.03) ng/mL B-Natriuretic Peptide (0-100) pg/mL - Radiology Data Radiology results reviewed: Yes I reviewed the patient's radiology results. Chest X-Ray 01/26/17 16:16 IMPRESSION: Mild congestive changes with no acute abnormality. D/ / Titi Philip MD / Titi Philip MD Interpreting Provider: Titi Philip MD Venous Doppler bilateral legs was negative for DVT - EKG Data EKG attestation: Yes I reviewed and interpreted this EKG. EKG shows normal: sinus rhythm Rate: normal, tachycardia Rhythm: NSR Interpretation: no acute changes Heart Score - Score History: Slightly Suspicious EKG: Non Specific repolarisation Disturbance Age: 45-65 Risk Factors: Equal/Greater than 3 risk factor or history of atherosclerotic disease Troponin: Less than normal limit HEART Score Total: 4
[2017-01-26 17:22] LABS: Basophils # 0.1 K/mcL (0.0-0.2); Basophils % 0.7 %; Eosinophils # 0.2 K/mcL (0.0-0.6); Eosinophils % 1.9 %; Hematocrit 35.9 % (35.3-44.9); Hemoglobin 11.3 g/dL (11.5-15.4); Immature Granulocytes % 1.2 % (0-4); Lymphocytes % 25.7 %; Mean Corpuscular HGB Conc 31.5 g/dL (31.6-35.5); Mean Corpuscular Hemoglobin 26.2 pg (28.0-33.3); Mean Corpuscular Volume 83.1 fL (83.0-100.0); Monocytes # 0.5 K/mcL (0.0-1.3); Monocytes % 4.5 %; Neutrophils # 7.6 K/mcL (1.6-8.9); Nucleated Red Blood Cells 0.3 /100 WBC (0); Platelet Count 218 K/mcL (140-400); Red Blood Count 4.32 M/mcL (3.82-4.97); Red Cell Distribution Width 16.6 % (11.5-14.5)
[2017-01-26 17:32] LABS: Activated Partial Thrombo Time 26.5 Seconds (26.0-36.0)
[2017-01-26] MEDS ORDERED: Magnesium Sulfate 1 GM in D5% in Water 100 ML IVPB ONE ×2 (17:36→21:29)
[2017-01-26 17:38] LABS: BUN/Creatinine Ratio 28 (6-26); Blood Urea Nitrogen 23 mg/dL (7-20); Calcium 9.3 mg/dL (8.6-10.8); Carbon Dioxide 36 mEq/L (19-29); Chloride 90 mEq/L (98-109); Glucose 127 mg/dL (70-99); Osmolality,Calculated 293 (280-300); Potassium 2.6 mEq/L (3.5-4.5); Sodium 139 mEq/L (136-145); eGFR For African Americans > 60 (> 60); eGFR For Non-African Americans > 60 (> 60)
[2017-01-26] MEDS ORDERED: *HR* HYDROmorphone (PF) 1 MG/ML SYRINGE IVP ONE (17:41)
[2017-01-26] MEDS ORDERED: *HR* Promethazine 25 MG/ML VIAL IVP ONE (17:41)
[2017-01-26] MEDS ORDERED: Piperacillin/Tazobactam 3.375 GM in D5% in Water (Mini-Bag+) 100 ML IVPB ONE (18:39)
[2017-01-26] MEDS ORDERED: Naloxone 0.4 MG/ML INJ IVP PRN (20:37)
[2017-01-26] MEDS ORDERED: Ondansetron 4 MG/2 ML VIAL IVP PRN (20:37)
[2017-01-26] MEDS ORDERED: *HR* HYDROcodone/Acet 5/325 mg TABLET PO PRN (20:44)
[2017-01-26] MEDS ORDERED: Acetaminophen 325 MG TABLET PO PRN (20:44)
[2017-01-26] MEDS ORDERED: Ipratropium/Albuterol Neb 3 ML IH PRN (20:45)
[2017-01-26] MEDS ORDERED: D5% in Water 1,000 ML IVC PRN (20:55)
[2017-01-26] MEDS ORDERED: *HR* Dextrose 50 % in Water (Syg) 50 ML SYRINGE IVP PRN (20:55)
[2017-01-26] MEDS ORDERED: Dextrose Gel 15 GM PO PRN ×2 (20:55)
[2017-01-26] MEDS ORDERED: Gabapentin 400 MG CAPSULE PO SCH ×2 (21:00)
[2017-01-26] MEDS ORDERED: *HR* Metformin 500 MG TABLET PO SCH (21:00)
[2017-01-26] MEDS ORDERED: Magnesium Oxide 400 MG TABLET PO SCH (21:00)
--- NOTE | 2017-01-26 21:09 | Internal Med History&Physical ---
Date of Encounter: 01/26/17 Time of Encounter: 20:58 Assessment and Plan (1) Chest pain Current visit: Yes Status: Acute Patient experienced sudden onset of sharp nonradiating chest pain. He was relieved with pain medication and aspirin. First cardiac troponin was 0 we will continue to cycle troponins 2 continuous cardiac monitoring 3 patient had cardiac stress test 10/1999 7T with no acute ischemic changes EF at that time was greater than 70% 4 we will continue with aspirin and statin beta randy 5 nitroglycerin as needed for chest pain 6 oxygen as needed to maintain SPO2 greater than 92% Qualifiers: Chest pain type: unspecified Qualified Code(s): R07.9 - Chest pain, unspecified (2) Bilateral lower leg cellulitis Current visit: No Status: Acute 1 patient has lower extremity edema with erythema right leg worse than left. Patient states has been going on for proximal 4 days. We will continue with Zosyn we will add vancomycin 2 we will continue to monitor CBC (3) Hypokalemia Current visit: No Status: Acute Potassium is 2.9 patient given replacement we will continue to monitor and replace as needed 2 continue with home potassium 3 cardiac monitoring (4) Hypomagnesemia Current visit: No Status: Acute 1 magnesium 1.0-replace magnesium and recheck (5) Type 2 diabetes mellitus Current visit: No Status: Acute Accu-Cheks before meals at bedtime with sliding scale insulin as well as basal goal is to maintain postprandial less than 180 2 diabetic diet 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 mellitus complication status: without complication Diabetes mellitus [employer] insulin use: with [employer] use Qualified Code(s): E11.9 - Type 2 diabetes mellitus without complications; Z79.4 - terminal carman (current) use of insulin (6) CAD (coronary artery disease) Current visit: No Status: Chronic 1 history of coronary artery disease with stent placement. We will continue with aspirin and Plavix statin beta randy nitrates 2 cardiac diet Qualifiers: Coronary Disease-Associated Artery/Lesion type: [place] artery [place] vs. transplanted heart: [place] heart Associated angina: without angina Qualified Code(s): I25.10 - Atherosclerotic heart disease of [place] coronary artery without angina pectoris (7) DVT prophylaxis Current visit: No Status: Acute Heparin subcutaneous Internal Medicine - H&P: HPI Admitted From: Emergency Dept Plans for Post Hospital Care: Home History of present illness: Ms. Lynch is a 61 year old female with extensive medical history including CAD with stent placement CHF COPD diabetes hyperlipidemia hypertension thyroid disease TIA anxiety bipolar disorder. According to the patient she has been experiencing chest pain that started around 12 noon today she is described as stabbing to the center of her chest nonradiating no aggravating or relieving factors. She checks her blood pressure systolic was 99 she called her family Dr. Lloyd not to take her nitroglycerin due to low blood pressure and go to the emergency room. Patient has also been experiencing bilateral lower extremity redness and pain swelling which has been going on for the past 4 days. She denies any fevers or chills. She presented to the ER stating that she thinks her potassium and magnesium are low and that is why she is having chest pain as well as experiencing a headache. According to ER records lab work was obtained which did reveal a potassium of 2.9 as well as a magnesium of 1 patient did have some leukocytosis with WBC 11.6 troponin was 0 BNP less than 10 lower extremity Doppler was obtained which was negative for DVT bilaterally. Chest x-ray revealed mild congestion with no acute abnormality. Patient was given aspirin as well as blood cultures obtained she was given Zosyn IV. She has been admitted for further workup and evaluation. Presently patient sitting on side of bed. she denies any chest pain or soreness of breath at this time. Patient did have a cardiac workup in October with cardiac stress which showed no acute ischemic changes EF was greater than 70 at that time. Her lung sounds are clear with occasional faint expiratory wheeze heart sounds S1-S2 with no rubs clicks murmurs noted. Lower extremities are edematous with erythema bilaterally. She is hemodynamically stable at this time. I reviewed this case with Dr. Melgar who agrees with plan Past Med Surg Social Fam HX - Past Medical History Medical history: arthritis, CHF, COPD, coronary artery disease, diabetes, GERD, hyperlipidemia, hypertension, osteoporosis, thyroid disease, TIA, venous stasis , other Psychiatric history: anxiety, bipolar, depression, panic disorder - Past Surgical History Surgical History: angioplasty/stent, , cholecystectomy, hysterectomy, other - Social History Smoking Status: Former smoker Smokeless Tobacco Status: No Alcohol use: none Drug use: none - Family History Father Adopted: No Family Member Ethnicity: Non- Living Status: Hx Family Cardiac Disorders: Yes Mother Adopted: No Family Member Ethnicity: Non- Living Status: Hx Family Cardiac Disorders: Yes (CA) Hx Family Respiratory Disorders: No Hx Family Cancer: No Hx Family GI Disorders: No Hx Family Endocrine Disorder: Yes (DM) Hx Family Neuromuscular Disorders: No Hx Family Neurologic Disorders: Yes ([place]) Hx Family HEENT Disorders: No Hx Family Autoimmune Disorders: No Internal Medicine - H&P: Meds Budesonide/Formoterol 160/4.5 [Symbicort] 2 puff IH BIDR 04/21/15 [History] Gabapentin [Neurontin] 800 mg PO TID 04/21/15 [History] Levothyroxine [Synthroid] 100 mcg PO QAM 04/21/15 [History] Tiotropium [Spiriva] 1 puff IH QAM 04/21/15 [History] metFORMIN [Glucophage] 1,000 mg PO BID 04/21/15 [History] Amlodipine Besylate 2.5 mg PO DAILY 12/27/15 [History] Atorvastatin Calcium [Lipitor] 40 mg PO DAILY 02/04/16 [History] Buspirone HCl [Buspar] 15 mg PO TID 02/04/16 [History] Montelukast [Singulair] 10 mg PO HS 02/04/16 [History] Oxygen 2 l NS AD PRN 03/17/16 [History] Insulin Glargine [Lantus] 80 unit SQ QAM 03/25/16 [History] Insulin Glargine [Lantus] 90 unit SQ QPM 03/25/16 [History] Albuterol Sulfate [Albuterol Inhaler] 2 puff IH Q4HR PRN 05/01/16 [History] Citalopram Hydrobromide [Citalopram HBr] 40 mg PO DAILY 05/01/16 [History] Ipratropium/Albuterol Neb [Duoneb] 3 ml IH Q6H PRN 05/01/16 [History] Raloxifene [Evista] 60 mg PO DAILY 05/01/16 [History] traMADol [Ultram] 50 mg PO BID 05/01/16 [History] Aripiprazole [Abilify] 10 mg PO HS tablet 05/03/16 [Rx] clonazePAM [Klonopin] 1 mg PO TID tablet 05/03/16 [Rx] Fenofibrate Nanocrystallized [Tricor] 145 mg PO DAILY 06/15/16 [History] Promethazine [Phenergan] 25 mg PO Q12H PRN 06/15/16 [History] Clopidogrel [Plavix] 75 mg PO QAM tablet 06/18/16 [Rx] Buprenorphine [Butrans] 10 mcg TD QWEEK 06/27/16 [History] Ondansetron HCl [Zofran] 4 mg PO Q6H PRN #20 tablet 08/07/16 [Rx] Baclofen [Lioresal] 10 mg PO 2-3XD 08/24/16 [History] Metoprolol Tartrate 25 mg PO BID 08/24/16 [History] Omeprazole [PriLOSEC] 20 mg PO BID 08/24/16 [History] Bumetanide 2 mg PO DAILY 11/21/16 [History] Meclizine [Antivert] 25 mg PO DAILY PRN 11/21/16 [History] Oxycodone HCl/Acetaminophen [Percocet 5-325 mg Tablet] 1 tab PO Q4H PRN [History] Aspirin 81 mg PO DAILY #60 tab.chew 12/06/16 [Rx] Nystatin POWDER [Nystop] 1 appl TP BID 12/14/16 [History] Gabapentin [Neurontin] 1,600 mg PO HS 12/31/16 [History] Isosorbide MONOnitrate (24 HR) [Imdur] 30 mg PO QAM 12/31/16 [History] Magnesium Oxide [Magnesium] 800 mg PO BID 12/31/16 [History] Vit D3/Folic Acid/B2/B6/B12 1 tab PO BID 12/31/16 [History] metOLazone [Zaroxolyn] 5 mg PO Q48H 12/31/16 [History] Potassium Chloride 40 meq PO BID #120 tab.er.prt 01/02/17 [Rx] Allergies No Known Allergies Allergy (Verified 11/12/16 02:17) All Systems PM: A 10-system review of systems was performed and is negative for pertinent findings except as documented above in the HPI. - Constitutional Constitutional: no chills, no fever(s), no night sweats - EENT Eyes: no change in vision, no discharge, no pain, no photophobia - Cardiovascular Cardiovascular ROS IM: chest pain - Respiratory Respiratory: no cough, no dyspnea, no wheezing, no excessive phlegm production - Gastrointestinal Gastrointestinal: no abdominal pain, no diarrhea, no hematemesis, no hematochezia, no melena, no nausea, no vomiting - Genitourinary Genitourinary: no change in urinary stream, no dysuria, no flank pain, no hematuria - Musculoskeletal Musculoskeletal ROS IM: no numbness, no tingling - Integumentary Integumentary IM: erythema - Neurological Neurological ROS: no confusion, no convulsions, no focal weakness, no numbness, no tingling, no tremor(s) - Hematologic/Lymphatic Hematologic/Lymphatic: no easy bruising - Constitutional Vitals: Temp Pulse Resp BP Pulse Ox 98.3 F 95 13 130/72 92 01/26/17 20:44 01/26/17 20:44 01/26/17 20:44 01/26/17 20:44 01/26/17 20:44 General appearance: Present: A&O X 3, obese, answers questions appropriately - Head Head exam: Present: atraumatic, normocephalic - Eye Eye exam: Present: PERRL, conjuntiva pink, sclera anicteric Pupils: Present: PERRL - Neck Neck exam general surgery: Present: supple, trachea midline. Absent: lymphadenopathy - Respiratory Respiratory exam: Present: CTAB. Absent: accessory muscle use, rales, rhonchi, wheezes - Cardiovascular Cardiovascular exam: Present: RRR, +S1, +S2. Absent: diastolic murmur, gallop, rubs, systolic murmur - Extremities Exam Extremities exam: Present: pedal edema, warm, radial pulses palpable and symetrical. Absent: calf tenderness, cyanotic - Expanded Lower Extremities Exam Lower Leg exam: Present: erythema - Neurological Exam Neurological exam: Present: CN II-XII intact, oriented X3, no focal deficits. Absent: pronater drift, facial droop, speech deficit - Psychiatric Psychiatric exam: Present: flat affect - Skin Skin exam: Present: dry, erythema, intact Internal Med - H&P Results - Labs CBC & Chem 7: 01/26/17 17:15 01/26/17 17:15 - EKG Data EKG shows normal: sinus rhythm Rate: tachycardia - Diagnostic Studies Other Images Additional comments: Chest X-Ray 01/26/17 16:16 IMPRESSION: Mild congestive changes with no acute abnormality. D/ / Titi Philip MD / Titi Philip MD Interpreting Provider: Titi Philip MD
[2017-01-26] MEDS: clonazePAM 1 MG TABLET PO SCH (21:36)
[2017-01-26] MEDS: ARIPiprazole 10 MG TABLET PO SCH (21:37)
[2017-01-26] MEDS: Insulin LISPRO 300 UNITS/3 ML VIAL SQ SCH (21:40)
[2017-01-26] MEDS ORDERED: Vancomycin (wt based) 1,000 MG VIAL IVPB SCH (22:00)
[2017-01-26] MEDS: FOLIC ACID PO SCH (22:18)
[2017-01-26] MEDS: VIT D3 PO SCH (22:18)
[2017-01-26] MEDS: B2 PO SCH (22:18)
[2017-01-26] MEDS: B12 PO SCH (22:18)
[2017-01-26] MEDS: B6 PO SCH (22:18)
[2017-01-26] MEDS: *HR* OxyCODONE/APAP 5/325 TABLET PO PRN (22:20)
[2017-01-26] MEDS: Budesonide/Formoterol 160/4.5 MDI IH SCH (22:56)
[2017-01-26] MEDS: Vancomycin 1,500 MG in D5% in Water 250 ML IVPB SCH (23:41)
[2017-01-27] MEDS: *HR* OxyCODONE/APAP 5/325 TABLET PO PRN ×4 (03:23→20:39)
[2017-01-27] MEDS ORDERED: Piperacillin/Tazobactam 3.375 GM in D5% in Water (Mini-Bag+) 100 ML IVPB SCH (04:00)
[2017-01-27 05:34] LABS: Basophils # 0.1 K/mcL (0.0-0.2); Basophils % 0.6 %; Eosinophils # 0.3 K/mcL (0.0-0.6); Eosinophils % 2.5 %; Hematocrit 36.6 % (35.3-44.9); Hemoglobin 11.5 g/dL (11.5-15.4); Immature Granulocytes % 1.3 % (0-4); Lymphocytes % 29.7 %; Mean Corpuscular HGB Conc 31.4 g/dL (31.6-35.5); Mean Corpuscular Hemoglobin 26.3 pg (28.0-33.3); Mean Corpuscular Volume 83.6 fL (83.0-100.0); Monocytes # 0.5 K/mcL (0.0-1.3); Monocytes % 4.8 %; Neutrophils # 6.1 K/mcL (1.6-8.9); Nucleated Red Blood Cells 0.3 /100 WBC (0); Platelet Count 224 K/mcL (140-400); Red Blood Count 4.38 M/mcL (3.82-4.97); Red Cell Distribution Width 17.1 % (11.5-14.5); Segmented Neutrophils % 61.1 %
[2017-01-27 05:47] LABS: BUN/Creatinine Ratio 26 (6-26); Blood Urea Nitrogen 21 mg/dL (7-20); Calcium 9.1 mg/dL (8.6-10.8); Carbon Dioxide 37 mEq/L (19-29); Chloride 90 mEq/L (98-109); Glucose 203 mg/dL (70-99); Osmolality,Calculated 293 (280-300); Potassium 3.1 mEq/L (3.5-4.5); Sodium 137 mEq/L (136-145); eGFR For African Americans > 60 (> 60); eGFR For Non-African Americans > 60 (> 60)
[2017-01-27] MEDS: *HR* Enoxaparin 40 MG/0.4 ML SYRINGE SQ SCH (06:55)
--- NOTE | 2017-01-27 07:32 | Venous Imaging Report ---
LE Venous Duplex Patient Name:Claire Lynch Order Number:[id number] Procedure Date:01/26/2017 Date:1955ge:61 yrs Gender:Female Location:[facility] ED Room #: ED15 Tightener:Linda Black Referring MD:Tyree Tsang MD thermodynamicist:Corey Waddell DO Reading MD:Fabio Harvey MD Primary Indications:BLE redness and edema Secondary Indications: Risk Factors Yes/No Anticoagulants Impressions: Bilateral lower extremity: normal superficial and deep exam. Recommendations: Test completed on 01/26/2017 at 5:02:00 pm. Critical findings reported to Dr. Tsang-ED in person at 5:02:00 pm on 01/26/2017 by Linda Black. Lower Extremity Venous Duplex Side Vein Compress Spontaneous Flow Augment Diameter (cm) Depth (cm) Right Distal Iliac Normal Yes Phasic Yes Right Common Femoral Normal Yes Phasic Yes Right Superficial Femoral Normal Yes Phasic Yes Right Popliteal Normal Yes Phasic Yes Right Posterior Tibial Normal Yes Phasic Yes Right Peroneal Normal Yes Phasic Yes Right Saphenofemoral [place] Normal Yes Phasic Yes Right Great Saphenous Normal Yes Phasic Yes Right Lesser Saphenous Normal Yes Phasic Yes Left Distal Iliac Normal Yes Phasic Yes Left Common Femoral Normal Yes Phasic Yes Left Superficial Femoral Normal Yes Phasic Yes Left Popliteal Normal Yes Phasic Yes Left Posterior Tibial Normal Yes Phasic Yes Left Peroneal Normal Yes Phasic Yes Left Saphenofemoral [place] Normal Yes Phasic Yes Left Great Saphenous Normal Yes Phasic Yes Left Lesser Saphenous Normal Yes Phasic Yes Updated by Fabio Harvey MD on 01/27/2017 7:25:53 AM electronically signed on 01/27/2017 7:26:18 AM with status of Final
[2017-01-27] MEDS: Budesonide/Formoterol 160/4.5 MDI IH SCH ×2 (07:58→20:19)
[2017-01-27] MEDS: Tiotropium 18 MCG inhalation IH SCH (07:58)
[2017-01-27] MEDS: Insulin LISPRO 300 UNITS/3 ML VIAL SQ SCH ×4 (08:11→20:40)
[2017-01-27] MEDS: Gabapentin 400 MG CAPSULE PO SCH ×3 (08:13→16:46)
[2017-01-27] MEDS: Magnesium Oxide 400 MG TABLET PO SCH ×2 (08:14→20:39)
[2017-01-27] MEDS: Bumetanide 1 MG TABLET PO SCH (08:14)
[2017-01-27] MEDS: Aspirin 81 MG TAB.CHEW PO SCH (08:14)
[2017-01-27] MEDS: Fenofibrate 54 MG TABLET PO SCH (08:15)
[2017-01-27] MEDS: Baclofen 10 MG TABLET PO SCH ×2 (08:16→20:39)
[2017-01-27] MEDS: clonazePAM 1 MG TABLET PO SCH ×3 (08:16→20:39)
[2017-01-27] MEDS: Isosorbide MONOnitrate (24 HR) 30 MG TAB.ER.24H PO SCH (08:16)
[2017-01-27] MEDS: B2 PO SCH ×2 (08:23→20:40)
[2017-01-27] MEDS: B6 PO SCH ×2 (08:23→20:40)
[2017-01-27] MEDS: B12 PO SCH ×2 (08:23→20:40)
[2017-01-27] MEDS: FOLIC ACID PO SCH ×2 (08:23→20:40)
[2017-01-27] MEDS: VIT D3 PO SCH ×2 (08:23→20:40)
[2017-01-27] MEDS: Insulin DETEMIR 100 UNIT/ML X5UNITS SQ SCH (08:25)
[2017-01-27] MEDS ORDERED: amLODIPine 5 MG TABLET PO SCH (09:00)
[2017-01-27] MEDS: Vancomycin 1,500 MG in D5% in Water 250 ML IVPB SCH (10:32)
[2017-01-27] MEDS ORDERED: Furosemide 20 MG/2 ML VIAL IVP ONE (10:35)
--- NOTE | 2017-01-27 12:35 | Electrocardiograph Report ---
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
--- NOTE | 2017-01-27 14:20 | Internal Med Progress Note ---
Date of Encounter: 01/27/17 Time of Encounter: 14:18 - Assessment and plan (1) Chest pain Current Visit: Yes Status: Acute Assessment and plan: on and pff chest pain, less likely cardiac , tropx3 is neg, no EKG changes recently had stress test in october that was negative for ischemia no further inpatient workup warranted at this time Qualifiers: Chest pain type: unspecified Qualified Code(s): R07.9 - Chest pain, unspecified (2) Diabetes Current Visit: No Status: Chronic Assessment and plan: will continue insulin long acting and sliding scale. will start with 60 units of lantus at night as she already got her morning dose of levemir today, will uptitrate if fsg is uncontrolled. 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 mellitus type: type 2 Diabetes mellitus complication status: with other specified complication Diabetes mellitus fpc insulin use: unspecified fpc insulin use status Qualified Code(s): E11.69 - Type 2 diabetes mellitus with other specified complication (3) Hyperlipidemia Current Visit: No Status: Chronic Qualifiers: Hyperlipidemia type: unspecified Qualified Code(s): E78.5 - Hyperlipidemia , unspecified (4) CAD (coronary artery disease) Current Visit: No Status: Chronic Qualifiers: Coronary Disease-Associated Artery/Lesion type: [place] artery [place] vs. transplanted heart: [place] heart Associated angina: without angina Qualified Code(s): I25.10 - Atherosclerotic heart disease of [place] coronary artery without angina pectoris (5) Hypothyroidism Current Visit: No Status: Chronic Qualifiers: Hypothyroidism type: acquired Qualified Code(s): E03.9 - Hypothyroidism, unspecified (6) Chronic venous stasis dermatitis of both lower extremities Current Visit: No Status: Chronic Assessment and plan: this is chronic , previous h/p and dc summaries were reviewed, there is no signs of acute cellulitis at this time. will stop vanco and zosyn, has no fever or leucocytosis. will give one dose of lasix, did note that she is on bumex at home, will continue the same for now will order Pt/OT - Subjective Interval history: seen at the bedside, c/o b/l leg pain and weakness she still has chest pain on and off. - Constitutional Vitals: Temp Pulse Resp BP Pulse Ox 97.4 F L 72 18 107/68 96 01/27/17 11:08 01/27/17 11:08 01/27/17 11:08 01/27/17 11:08 01/27/17 11:08 General appearance: Present: A&O X 3, obese, answers questions appropriately Exam: neck- supple chest- b/l clear, no added sounds CVS-s1 and s2, no mr//g abd-soft, non tender, bs are present ext- b/l lower leg swelling with skin changes consistent with chronic venous stasis, no open wounds. Internal Medicine: Result - Labs CBC & Chem 7: 01/27/17 04:53 01/27/17 04:53 Labs: Short CBC 01/27/17 Range/Units 04:53 WBC 10.0 (4.3-11.1) K/mcL Hgb 11.5 (11.5-15.4) g/dL Hct 36.6 (35.3-44.9) % Plt Count 224 (140-400) K/mcL Neutrophils # 6.1 (1.6-8.9) K/mcL BMP 01/27/17 04:53 Sodium 137 Potassium 3.1 L Chloride 90 L Carbon Dioxide 37 H BUN 21 H Creatinine 0.80 Glucose 203 H Calcium 9.1 Cardiac Enzymes 01/27/17 Range/Units 04:53 Troponin I 0.00 (0-0.03) ng/mL - ABG Interpretation ABG results: PT/INR, D-dimer PT 11.0 Seconds (9.4-12.1) 01/26/17 17:15 Consult Discharge Plan - Plan Referrals: Corey Waddell DO [Primary Care Provider] - 02/04/17 12:00 pm
[2017-01-27] MEDS ORDERED: Insulin DETEMIR 100 UNIT/ML X5UNITS SQ SCH (18:00)
[2017-01-27] MEDS ORDERED: *HR* Heparin 5,000 UNIT/ML VIAL SQ SCH (18:00)
[2017-01-27] MEDS: ARIPiprazole 10 MG TABLET PO SCH (20:39)
[2017-01-27] MEDS ORDERED: Vancomycin 1,000 MG in D5% in Water 250 ML IVPB SCH (23:00)
[2017-01-28] MEDS: *HR* OxyCODONE/APAP 5/325 TABLET PO PRN ×4 (02:40→16:13)
[2017-01-28] MEDS: GuaiFENesin/Codeine Oral Soln 5 ML UDC PO PRN ×2 (03:50→11:32)
[2017-01-28] MEDS: *HR* Enoxaparin 40 MG/0.4 ML SYRINGE SQ SCH (06:29)
[2017-01-28] MEDS: Budesonide/Formoterol 160/4.5 MDI IH SCH (08:07)
[2017-01-28] MEDS: Tiotropium 18 MCG inhalation IH SCH (08:08)
[2017-01-28] MEDS: Insulin DETEMIR 100 UNIT/ML X5UNITS SQ SCH (08:23)
[2017-01-28] MEDS: Aspirin 81 MG TAB.CHEW PO SCH (08:25)
[2017-01-28] MEDS: Bumetanide 1 MG TABLET PO SCH (08:26)
[2017-01-28] MEDS: Isosorbide MONOnitrate (24 HR) 30 MG TAB.ER.24H PO SCH (08:26)
[2017-01-28] MEDS: Baclofen 10 MG TABLET PO SCH (08:27)
[2017-01-28] MEDS: Gabapentin 400 MG CAPSULE PO SCH ×3 (08:27→17:11)
[2017-01-28] MEDS: clonazePAM 1 MG TABLET PO SCH ×2 (08:27→16:13)
[2017-01-28] MEDS: Magnesium Oxide 400 MG TABLET PO SCH (08:27)
[2017-01-28] MEDS: Fenofibrate 54 MG TABLET PO SCH (08:27)
[2017-01-28] MEDS: B6 PO SCH (08:28)
[2017-01-28] MEDS: VIT D3 PO SCH (08:28)
[2017-01-28] MEDS: B12 PO SCH (08:28)
[2017-01-28] MEDS: FOLIC ACID PO SCH (08:28)
[2017-01-28] MEDS: B2 PO SCH (08:28)
[2017-01-28] MEDS: Insulin LISPRO 300 UNITS/3 ML VIAL SQ SCH ×3 (08:29→17:12)
--- NOTE | 2017-01-28 10:28 | Physician Discharge Referral ---
ExtendedCare Referral Info Transfer To: F Provider in Charge: fatimah go Institutional Level of Care: Intermediate - MR - Diagnosis (1) Chest pain Status: Acute (2) Diabetes Status: Chronic (3) Hyperlipidemia Status: Chronic (4) CAD (coronary artery disease) Status: Chronic (5) Hypothyroidism Status: Chronic (6) Chronic venous stasis dermatitis of both lower extremities Status: Chronic - Transfer Medications Home Medications: Budesonide/Formoterol 160/4.5 [Symbicort] 2 puff IH BIDR 04/21/15 [History] Gabapentin [Neurontin] 800 mg PO TID 04/21/15 [History] Levothyroxine [Synthroid] 100 mcg PO QAM 04/21/15 [History] Tiotropium [Spiriva] 1 puff IH QAM 04/21/15 [History] metFORMIN [Glucophage] 1,000 mg PO BID 04/21/15 [History] Amlodipine Besylate 2.5 mg PO DAILY 12/27/15 [History] Atorvastatin Calcium [Lipitor] 40 mg PO DAILY 02/04/16 [History] Buspirone HCl [Buspar] 15 mg PO TID 02/04/16 [History] Montelukast [Singulair] 10 mg PO HS 02/04/16 [History] Oxygen 2 l NS AD PRN 03/17/16 [History] Insulin Glargine [Lantus] 80 unit SQ QAM 03/25/16 [History] Insulin Glargine [Lantus] 90 unit SQ QPM 03/25/16 [History] Albuterol Sulfate [Albuterol Inhaler] 2 puff IH Q4HR PRN 05/01/16 [History] Citalopram Hydrobromide [Citalopram HBr] 40 mg PO DAILY 05/01/16 [History] Ipratropium/Albuterol Neb [Duoneb] 3 ml IH Q6H PRN 05/01/16 [History] Raloxifene [Evista] 60 mg PO DAILY 05/01/16 [History] traMADol [Ultram] 50 mg PO BID 05/01/16 [History] Aripiprazole [Abilify] 10 mg PO HS tablet 05/03/16 [Rx] clonazePAM [Klonopin] 1 mg PO TID tablet 05/03/16 [Rx] Fenofibrate Nanocrystallized [Tricor] 145 mg PO DAILY 06/15/16 [History] Promethazine [Phenergan] 25 mg PO Q12H PRN 06/15/16 [History] Clopidogrel [Plavix] 75 mg PO QAM tablet 06/18/16 [Rx] Buprenorphine [Butrans] 10 mcg TD QWEEK 06/27/16 [History] Ondansetron HCl [Zofran] 4 mg PO Q6H PRN #20 tablet 08/07/16 [Rx] Baclofen [Lioresal] 10 mg PO 2-3XD 08/24/16 [History] Metoprolol Tartrate 25 mg PO BID 08/24/16 [History] Omeprazole [PriLOSEC] 20 mg PO BID 08/24/16 [History] Bumetanide 2 mg PO DAILY 11/21/16 [History] Meclizine [Antivert] 25 mg PO DAILY PRN 11/21/16 [History] Oxycodone HCl/Acetaminophen [Percocet 5-325 mg Tablet] 1 tab PO Q4H PRN [History] Aspirin 81 mg PO DAILY #60 tab.chew 12/06/16 [Rx] Nystatin POWDER [Nystop] 1 appl TP BID 12/14/16 [History] Gabapentin [Neurontin] 1,600 mg PO HS 12/31/16 [History] Isosorbide MONOnitrate (24 HR) [Imdur] 30 mg PO QAM 12/31/16 [History] Magnesium Oxide [Magnesium] 800 mg PO BID 12/31/16 [History] Vit D3/Folic Acid/B2/B6/B12 1 tab PO BID 12/31/16 [History] metOLazone [Zaroxolyn] 5 mg PO Q48H 12/31/16 [History] Potassium Chloride 40 meq PO BID #120 tab.er.prt 01/02/17 [Rx] GuaiFENesin/Codeine [Robitussin w/Codeine] 5 ml PO Q6H PRN 01/28/17 [History] Allergies/Adverse Reactions: Allergies No Known Allergies Allergy (Verified 11/12/16 02:17) - Respiratory Orders Smoking Cessation: Smoking cessation has been advised. For more information, call the [employer] Tobacco Quit Line at 7-290-CWGB-NOW. - Advance Directives Code Status: Full Code - Mobility Orders Ambulate - Rehabiliation Orders Rehab Potential: Fair Rehab Orders: Evaluation for Physical Therapy, Evaluation for Occupational Therapy - Diet Orders Regular, No Concentrated Sweets CERTIFICATION: I certify that the transfer of the above named patient to an Extended Care Facility is necessary for the continuing treatment of the diagnosis listed. The above information is true and accurate reflection of patient's current condition. Confidential - Redisclosure prohibited without a patient's written consent.
[2017-01-28 11:08] VITALS: BP 97/56
--- NOTE | 2017-01-28 13:51 | Discharge Summary ---
Date of Encounter: 01/28/17 Time of Encounter: 13:48 - Discharge Diagnosis (1) Chest pain Priority: Primary Status: Acute Qualifiers: Chest pain type: unspecified Qualified Code(s): R07.9 - Chest pain, unspecified (2) Diabetes Priority: Secondary Status: Chronic 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 mellitus type: type 2 Diabetes mellitus complication status: with other specified complication Diabetes mellitus usp insulin use: unspecified usp insulin use status Qualified Code(s): E11.69 - Type 2 diabetes mellitus with other specified complication (3) Hyperlipidemia Priority: Secondary Status: Chronic Qualifiers: Hyperlipidemia type: unspecified Qualified Code(s): E78.5 - Hyperlipidemia , unspecified (4) CAD (coronary artery disease) Priority: Secondary Status: Chronic Qualifiers: Coronary Disease-Associated Artery/Lesion type: [place] artery [place] vs. transplanted heart: [place] heart Associated angina: without angina Qualified Code(s): I25.10 - Atherosclerotic heart disease of [place] coronary artery without angina pectoris (5) Hypothyroidism Priority: Secondary Status: Chronic Qualifiers: Hypothyroidism type: acquired Qualified Code(s): E03.9 - Hypothyroidism, unspecified (6) Chronic venous stasis dermatitis of both lower extremities Priority: Secondary Status: Chronic - Discharge Medications Prescriptions: clonazePAM [Klonopin] 1 mg PO TID #90 tablet Home Medications: Budesonide/Formoterol 160/4.5 [Symbicort] 2 puff IH BIDR 04/21/15 [History] Gabapentin [Neurontin] 800 mg PO TID 04/21/15 [History] Levothyroxine [Synthroid] 100 mcg PO QAM 04/21/15 [History] Tiotropium [Spiriva] 1 puff IH QAM 04/21/15 [History] metFORMIN [Glucophage] 1,000 mg PO BID 04/21/15 [History] Amlodipine Besylate 2.5 mg PO DAILY 12/27/15 [History] Atorvastatin Calcium [Lipitor] 40 mg PO DAILY 02/04/16 [History] Buspirone HCl [Buspar] 15 mg PO TID 02/04/16 [History] Montelukast [Singulair] 10 mg PO HS 02/04/16 [History] Oxygen 2 l NS AD PRN 03/17/16 [History] Insulin Glargine [Lantus] 80 unit SQ QAM 03/25/16 [History] Insulin Glargine [Lantus] 90 unit SQ QPM 03/25/16 [History] Albuterol Sulfate [Albuterol Inhaler] 2 puff IH Q4HR PRN 05/01/16 [History] Citalopram Hydrobromide [Citalopram HBr] 40 mg PO DAILY 05/01/16 [History] Ipratropium/Albuterol Neb [Duoneb] 3 ml IH Q6H PRN 05/01/16 [History] Raloxifene [Evista] 60 mg PO DAILY 05/01/16 [History] traMADol [Ultram] 50 mg PO BID 05/01/16 [History] Aripiprazole [Abilify] 10 mg PO HS tablet 05/03/16 [Rx] Fenofibrate Nanocrystallized [Tricor] 145 mg PO DAILY 06/15/16 [History] Promethazine [Phenergan] 25 mg PO Q12H PRN 06/15/16 [History] Clopidogrel [Plavix] 75 mg PO QAM tablet 06/18/16 [Rx] Buprenorphine [Butrans] 10 mcg TD QWEEK 06/27/16 [History] Ondansetron HCl [Zofran] 4 mg PO Q6H PRN #20 tablet 08/07/16 [Rx] Baclofen [Lioresal] 10 mg PO 2-3XD 08/24/16 [History] Metoprolol Tartrate 25 mg PO BID 08/24/16 [History] Omeprazole [PriLOSEC] 20 mg PO BID 08/24/16 [History] Bumetanide 2 mg PO DAILY 11/21/16 [History] Meclizine [Antivert] 25 mg PO DAILY PRN 11/21/16 [History] Aspirin 81 mg PO DAILY #60 tab.chew 12/06/16 [Rx] Nystatin POWDER [Nystop] 1 appl TP BID 12/14/16 [History] Gabapentin [Neurontin] 1,600 mg PO HS 12/31/16 [History] Isosorbide MONOnitrate (24 HR) [Imdur] 30 mg PO QAM 12/31/16 [History] Magnesium Oxide [Magnesium] 800 mg PO BID 12/31/16 [History] Vit D3/Folic Acid/B2/B6/B12 1 tab PO BID 12/31/16 [History] metOLazone [Zaroxolyn] 5 mg PO Q48H 12/31/16 [History] Potassium Chloride 40 meq PO BID #120 tab.er.prt 01/02/17 [Rx] GuaiFENesin/Codeine [ROBITUSSIN w/CODEINE] 5 ml PO Q6H PRN 01/28/17 [History] Oxycodone HCl/Acetaminophen [Percocet 5-325 mg Tablet] 1 tab PO Q4H PRN #20 10/15 [Rx] clonazePAM [Klonopin] 1 mg PO TID #90 tablet 01/28/17 [Rx] Allergies/Adverse Reactions: Allergies No Known Allergies Allergy (Verified 11/12/16 02:17) Date of admission: 01/26/17 19:42 Primary care physician: Corey Waddell, Consults: 01/27/17 10:35 Consult to Physical Therapy [CONS] Routine Comment: Evaluate, develop and implement POC Reason for Consult: difficulty walking 01/27/17 14:05 Consult to Occupational Therapy [CONS] Routine Comment: Evaluate, develop and implement POC Reason for Consult: difficulty walking 01/27/17 16:55 Consult to [employer] [CONS] Routine Reason for SW Consult: please evaluate for SNF placement. thank you Discharging clinician: Erick Felton Anticipated date of discharge: 01/28/17 - Patient Status Disposition: Transfer Inpatient Rehab Fac Condition: Fair Functional capacity at discharge: independent ambulation Overall status at discharge: patient is back to baseline - Discharge Instructions Follow Up With: Corey Waddell, [Primary Care Provider] - 02/04/17 12:00 pm - Diet and Activity Activity: as per physical therapy Diet: advance to your usual diet, diabetic diet Interval History: Ms. Lynch is a 61 year old female with extensive medical history including CAD with stent placement CHF COPD diabetes hyperlipidemia hypertension thyroid disease TIA anxiety bipolar disorder admitted for chest pain. patricio has on and pff chest pain, less likely cardiac , tropx3 is neg, no EKG changes recently had stress test in october that was negative for ischemia no further inpatient workup warranted at this time she was initially started on IV antibiotics for poossible cellulitis, however this is chronic , previous h/p and dc summaries were reviewed, there is no signs of acute cellulitis at this time. stopped vanco and zosyn, has no fever or leucocytosis. was given one dose of lasix, did note that she is on bumex at home, will continue the same for now. Bedside PT OT was consulted, she was recommended to be discharged to rehabilitation. She is being discharged today in stable condition to inpatient rehabilitation. Hospital course: Ms. Lynch is a 61 year old female - Time Spent with Patient Total time spent providing and/or coordinating discharge services: - Constitutional Vitals: Temp Pulse Resp BP Pulse Ox 97.5 F L 70 16 97/56 95 01/28/17 11:00 01/28/17 11:00 01/28/17 11:00 01/28/17 11:00 01/28/17 11:00 General appearance: Present: A&O X 3, obese, answers questions appropriately Exam: - Head Head exam: Present: atraumatic, normocephalic - Eye Eye exam: Present: PERRL, conjuntiva pink, sclera anicteric Pupils: Present: PERRL - Neck Neck exam general surgery: Present: supple, trachea midline. Absent: lymphadenopathy - Respiratory Respiratory exam: Present: CTAB. Absent: accessory muscle use, rales, rhonchi, wheezes - Cardiovascular Cardiovascular exam: Present: RRR, +S1, +S2. Absent: diastolic murmur, gallop, rubs, systolic murmur - Extremities Exam Extremities exam: Present: pedal edema, warm, radial pulses palpable and symetrical. Absent: calf tenderness, cyanotic - Expanded Lower Extremities Exam Lower Leg exam: Present: chronic skin discoloration - Neurological Exam Neurological exam: Present: CN II-XII intact, oriented X3, no focal deficits. Absent: pronater drift, facial droop, speech deficit - Psychiatric Psychiatric exam: Present: flat affect - Skin Skin exam: Present: dry, erythema, intact
== END 2017-01-28 17:18 ==
LOC: EMEROO 16:01 → 3ANU 16:01
PROVIDERS: ADMIT Internal Medicine; ATTEND Internal Medicine

== ENCOUNTER 2017-03-06 14:23 | Observation (INO) ==
[2017-03-06 15:50] LABS: Basophils # 0.1 K/mcL (0.0-0.2); Basophils % 0.5 %; Eosinophils # 0.2 K/mcL (0.0-0.6); Eosinophils % 2.1 %; Hemoglobin 10.8 g/dL (11.5-15.4); Immature Granulocytes % 1.4 % (0-4); Lymphocytes # 3.1 K/mcL (0.6-4.6); Lymphocytes % 28.1 %; Mean Corpuscular Hemoglobin 25.2 pg (28.0-33.3); Mean Corpuscular Volume 83.9 fL (83.0-100.0); Mean Platelet Volume 11.2 fL (9.4-12.4); Monocytes # 0.5 K/mcL (0.0-1.3); Monocytes % 4.9 %; Neutrophils # 6.9 K/mcL (1.6-8.9); Nucleated Red Blood Cells 0.2 /100 WBC (0); Platelet Count 254 K/mcL (140-400); Red Blood Count 4.29 M/mcL (3.82-4.97); Red Cell Distribution Width 15.5 % (11.5-14.5)
[2017-03-06 15:56] LABS: Prothrombin Time 10.3 Seconds (9.4-12.1)
[2017-03-06 15:58] LABS: Activated Partial Thrombo Time 26.5 Seconds (26.0-36.0)
[2017-03-06 16:03] LABS: BUN/Creatinine Ratio 26 (6-26); Blood Urea Nitrogen 20 mg/dL (7-20); Calcium 9.8 mg/dL (8.6-10.8); Carbon Dioxide 31 mEq/L (19-29); Chloride 99 mEq/L (98-109); Glucose 122 mg/dL (70-99); Osmolality,Calculated 298 (280-300); Potassium 3.5 mEq/L (3.5-4.5); Sodium 142 mEq/L (136-145); eGFR For African Americans > 60 (> 60); eGFR For Non-African Americans > 60 (> 60)
--- NOTE | 2017-03-06 16:52 | Emergency Department Note ---
Disposition Clinical Impression: Chest pain, rule out acute myocardial infarction Disposition: Admitted As Inpatient Instructions: Chest Pain (ED) Reasons to Return/Additional Instructions: Please follow-up with your primary care provider for continuation of your care. Return to the emergency department if you develop any worsening of your condition or if you develop new concerning symptoms. Referrals: Corey Waddell DO [Primary Care Provider] - Forms: ED Satisfaction Letter Chest Pain HPI - General Chief Complaint: ED Chest Pain Stated Complaint: chest pain Time Seen by Provider: 03/06/17 15:00 Source: patient Mode of arrival: ambulatory Limitations: no limitations Vital Signs Reviewed: Yes Nursing Notes Reviewed: Yes - History of Present Illness HPI Narrative: 61-year-old female presents with concerns of chest pain similar to her previous IA. Patient states her pain started around 5 AM this morning and is associated with nausea, diaphoresis and shortness of breath. She describes the pain as sharp and stabbing radiating to her left upper extremity. Patient states he feels near syncopal however she has not syncopized. Last stress test 3 months ago. Last cardiac catheterization 2 years ago and did not have stent placement at that time however patient states she has a history of multiple stents is currently taking Plavix. Severity scale (1-10): 7 - Related Data Home Medications Medication Instructions Recorded Confirmed Budesonide/Formoterol 160/4.5 2 puff IH BIDR 04/21/15 01/26/17 [Symbicort] Gabapentin [Neurontin] 800 mg PO TID 04/21/15 01/26/17 Levothyroxine [Synthroid] 100 mcg PO QAM 04/21/15 01/26/17 Tiotropium [Spiriva] 1 puff IH QAM 04/21/15 01/26/17 metFORMIN [Glucophage] 1,000 mg PO BID 04/21/15 01/26/17 Amlodipine Besylate 2.5 mg PO DAILY 12/27/15 01/26/17 Atorvastatin Calcium [Lipitor] 40 mg PO DAILY 02/04/16 01/26/17 Buspirone HCl [Buspar] 15 mg PO TID 02/04/16 01/26/17 Montelukast [Singulair] 10 mg PO HS 02/04/16 01/26/17 Oxygen 2 l NS AD PRN 03/17/16 01/26/17 Insulin Glargine [Lantus] 80 unit SQ QAM 03/25/16 01/26/17 Insulin Glargine [Lantus] 90 unit SQ QPM 03/25/16 01/26/17 Albuterol Sulfate [Albuterol 2 puff IH Q4HR PRN 05/01/16 01/26/17 Inhaler] Citalopram Hydrobromide 40 mg PO DAILY 05/01/16 01/26/17 [Citalopram HBr] Ipratropium/Albuterol Neb [Duoneb] 3 ml IH Q6H PRN 05/01/16 01/26/17 Raloxifene [Evista] 60 mg PO DAILY 05/01/16 01/26/17 traMADol [Ultram] 50 mg PO BID 05/01/16 01/26/17 Fenofibrate Nanocrystallized 145 mg PO DAILY 06/15/16 01/26/17 [Tricor] Promethazine [Phenergan] 25 mg PO Q12H PRN 06/15/16 01/26/17 Buprenorphine [Butrans] 10 mcg TD QWEEK 06/27/16 01/26/17 Baclofen [Lioresal] 10 mg PO 2-3XD 08/24/16 01/26/17 Metoprolol Tartrate 25 mg PO BID 08/24/16 01/26/17 Omeprazole [PriLOSEC] 20 mg PO BID 08/24/16 01/26/17 Bumetanide 2 mg PO DAILY 11/21/16 01/26/17 Meclizine [Antivert] 25 mg PO DAILY PRN 11/21/16 01/26/17 Nystatin POWDER [Nystop] 1 appl TP BID 12/14/16 01/26/17 Gabapentin [Neurontin] 1,600 mg PO HS 12/31/16 01/26/17 Isosorbide MONOnitrate (24 HR) 30 mg PO QAM 12/31/16 01/26/17 [Imdur] Magnesium Oxide [Magnesium] 800 mg PO BID 12/31/16 01/26/17 Vit D3/Folic Acid/B2/B6/B12 1 tab PO BID 12/31/16 01/26/17 metOLazone [Zaroxolyn] 5 mg PO Q48H 12/31/16 01/26/17 GuaiFENesin/Codeine [ROBITUSSIN 5 ml PO Q6H PRN 01/28/17 01/28/17 w/CODEINE] Previous Rx's Medication Instructions Recorded Aripiprazole [Abilify] 10 mg PO HS tablet 05/03/16 Clopidogrel [Plavix] 75 mg PO QAM tablet 06/18/16 Ondansetron HCl [Zofran] 4 mg PO Q6H PRN #20 tablet 08/07/16 Aspirin 81 mg PO DAILY #60 tab.chew 12/06/16 Potassium Chloride 40 meq PO BID #120 tab.er.prt 01/02/17 Oxycodone HCl/Acetaminophen 1 tab PO Q4H PRN #20 01/28/17 [Percocet 5-325 mg Tablet] clonazePAM [Klonopin] 1 mg PO TID #90 tablet 01/28/17 Phenazopyridine [Pyridium] 200 mg PO TID #9 tablet 02/21/17 Sulfamethoxazole/Trimeth DS 1 each PO BID #20 tablet 02/21/17 [Bactrim DS] Allergies Allergy/AdvReac Type Severity Reaction Status Date / Time No Known Allergies Allergy Verified 03/06/17 14:31 All systems ED: reviewed and negative except as stated. Constitutional: Denies: fever, chills, weakness Cardiovascular: Reports: chest pain, dyspnea on exertion. Denies: palpitations , orthopnea, syncope Respiratory: Denies: cough, dyspnea, wheezes, hemoptysis, sputum production Gastrointestinal: Denies: abdominal pain, nausea, vomiting Musculoskeletal: Reports: back pain (Chronic) Chest Pain PMH - Past Medical History Medical history: Reports: arthritis, CHF, COPD, coronary artery disease, diabetes, GERD, hyperlipidemia, hypertension, osteoporosis, thyroid disease, TIA , venous stasis, other Surgical history: Reports: angioplasty/stent, , cholecystectomy, hysterectomy, other Psychiatric history: Reports: anxiety, bipolar, depression, panic disorder [employer] history: Reports: bilateral tubal ligation - Social History Smoking Status: Former smoker Alcohol use: Reports: none Drug use: Reports: none Physical Exam General: Alert and in no acute distress. Morbidly obese Skin: Warm, dry, intact. Erythema to the bilateral circumferential distal lower extremities. This is likely secondary to her CHF and peripheral edema. Head: Normocephalic and atraumatic Neck: Supple, trachea midline and no tenderness Cardiovascular: RRR, no murmur, normal perfusion Respiratory: CTAB, no wheezing, cough, or respiratory distress Musculoskeletal: Normal strength, no tenderness, swelling or deformity GI: Soft, nontender, nondistended. Bowel sounds present Neuro: A&O to person, place, time and situation. No focal deficits noted on exam Psychiatric: cooperative and appropriate mood and affect. - General Limitations: no limitations General appearance: alert, in no apparent distress Course Vital Signs Temperature 98.3 F 03/06/17 14:26 Pulse Rate 91 03/06/17 14:26 Respiratory Rate 18 03/06/17 14:26 Blood Pressure 132/70 03/06/17 14:26 O2 Sat by Pulse Oximetry 92 03/06/17 14:26 Temperature 98.3 F 03/06/17 14:26 Pulse Rate 91 03/06/17 14:26 Respiratory Rate 18 03/06/17 14:26 Blood Pressure 132/70 03/06/17 14:26 O2 Sat by Pulse Oximetry 92 03/06/17 14:26 Oxygen Delivery Oxygen Delivery Room Air Chest Pain - Medical Records Medical records reviewed: Yes I reviewed the patient's medical records. - Lab Data Lab results reviewed: Yes I reviewed the patient's lab results. Result diagrams: 03/06/17 15:41 03/06/17 15:41 Lab Results 03/06/17 03/06/17 03/06/17 Range/Units 15:41 15:41 15:41 WBC 10.9 (4.3-11.1) K/mcL RBC 4.29 (3.82-4.97) M/mcL Hgb 10.8 L (11.5-15.4) g/dL Hct 36.0 (35.3-44.9) % MCV 83.9 (83.0-100.0) fL MCH 25.2 L (28.0-33.3) pg MCHC 30.0 L (31.6-35.5) g/dL RDW 15.5 H (11.5-14.5) % Plt Count 254 (140-400) K/mcL MPV 11.2 (9.4-12.4) fL Immature Gran % 1.4 (0-4) % Seg Neutrophils % 63.0 % Lymphocytes % 28.1 % Monocytes % 4.9 % Eosinophils % 2.1 % Basophils % 0.5 % Neutrophils # 6.9 (1.6-8.9) K/mcL Lymphocytes # 3.1 (0.6-4.6) K/mcL Monocytes # 0.5 (0.0-1.3) K/mcL Eosinophils # 0.2 (0.0-0.6) K/mcL Basophils # 0.1 (0.0-0.2) K/mcL Nucleated RBCs/100 WBC 0.2 H (0) /100 WBC PT 10.3 (9.4-12.1) Seconds INR 1.0 APTT 26.5 (26.0-36.0) Seconds Sodium 142 (136-145) mEq/L Potassium 3.5 (3.5-4.5) mEq/L Chloride 99 (98-109) mEq/L Carbon Dioxide 31 H (19-29) mEq/L BUN 20 (7-20) mg/dL Creatinine 0.78 (0.57-1.11) mg/dL Est GFR ( Amer) > 60 (> 60) Est GFR (Non-Af Amer) > 60 (> 60) BUN/Creatinine Ratio 26 (6-26) Glucose 122 H (70-99) mg/dL Calculated Osmolality 298 (280-300) Calcium 9.8 (8.6-10.8) mg/dL Troponin I (0-0.03) ng/mL 03/06/17 Range/Units 15:41 WBC (4.3-11.1) K/mcL RBC (3.82-4.97) M/mcL Hgb (11.5-15.4) g/dL Hct (35.3-44.9) % MCV (83.0-100.0) fL MCH (28.0-33.3) pg MCHC (31.6-35.5) g/dL RDW (11.5-14.5) % Plt Count (140-400) K/mcL MPV (9.4-12.4) fL Immature Gran % (0-4) % Seg Neutrophils % % Lymphocytes % % Monocytes % % Eosinophils % % Basophils % % Neutrophils # (1.6-8.9) K/mcL Lymphocytes # (0.6-4.6) K/mcL Monocytes # (0.0-1.3) K/mcL Eosinophils # (0.0-0.6) K/mcL Basophils # (0.0-0.2) K/mcL Nucleated RBCs/100 WBC (0) /100 WBC PT (9.4-12.1) Seconds INR APTT (26.0-36.0) Seconds Sodium (136-145) mEq/L Potassium (3.5-4.5) mEq/L Chloride (98-109) mEq/L Carbon Dioxide (19-29) mEq/L BUN (7-20) mg/dL Creatinine (0.57-1.11) mg/dL Est GFR ( Amer) (> 60) Est GFR (Non-Af Amer) (> 60) BUN/Creatinine Ratio (6-26) Glucose (70-99) mg/dL Calculated Osmolality (280-300) Calcium (8.6-10.8) mg/dL Troponin I 0.00 (0-0.03) ng/mL - Radiology Data Radiology results reviewed: Yes I reviewed the patient's radiology results. - EKG Data EKG attestation: Yes I reviewed and interpreted this EKG. EKG results narrative: ECG - interpreted by ED physician. Rate 92, normal sinus rhythm, no STEMI, LA, QT intervals, and QRS within normal limits ECG number 2- interpreted by ED physician. Rate 88, normal sinus rhythm, no STEMI, LA, QT intervals, and QRS within normal limits Heart Score - Score History: Moderately Suspicious EKG: Normal Age: 45-65 Risk Factors: Equal/Greater than 3 risk factor or history of atherosclerotic disease Troponin: Less than normal limit HEART Score Total: 4
--- NOTE | 2017-03-06 18:21 | Internal Med History&Physical ---
Date of Encounter: 03/08/17 Time of Encounter: 18:18 Assessment and Plan (1) Chest pain Current visit: No Status: Acute Rule of acute coronary syndrome. I will give the patient Lovenox because of continued pain. EKG shows no ST segment shifts in initial troponin normal. check 2 more sets of cardiac markers. Cardiology consultation. Continue all anti-ischemic medications including dual antiplatelet therapy and beta blockers. Qualifiers: Chest pain type: intercostal pain Qualified Code(s): R07.82 - Intercostal pain (2) Cellulitis Current visit: Yes Status: Acute Patient has redness warmth pain and tenderness of both legs consistent with cellulitis. I will start the patient and vancomycin Zosyn. Qualifiers: Site of cellulitis: extremity Site of cellulitis of extremity: lower extremity Laterality: unspecified laterality Qualified Code(s): L03.119 - Cellulitis of unspecified part of limb Internal Medicine - H&P: HPI Chief complaint: chest pain History of present illness: Ms. Lynch is a 61 year old female with multiple medical problems including coronary artery disease status post PCI recurrent hospitalization due to cellulitis presents to the emergency room today with main complain of chest pain. Patient was awakened this morning at 5 AM with retrosternal chest pain. She mentioned that the pain has been constant till she arrived to the emergency room. She was still in pain during my interview. She noted that pain will get worse when she exerts herself. No improvement with sublingual nitroglycerin. Denies any increase in sputum production fevers or chills. She has also been noticing redness warmest tenderness and swelling of both legs. Past Med Surg Social Fam HX - Past Medical History Medical history: arthritis, CHF, COPD, coronary artery disease, diabetes, GERD, hyperlipidemia, hypertension, osteoporosis, thyroid disease, TIA, venous stasis , other Psychiatric history: anxiety, bipolar, depression, panic disorder - Past Surgical History Surgical History: angioplasty/stent, , cholecystectomy, hysterectomy, other - Social History Smoking Status: Former smoker Smokeless Tobacco Status: No Alcohol use: none Drug use: none - Family History Father Adopted: No Family Member Ethnicity: Non- Living Status: Hx Family Cardiac Disorders: Yes Mother Adopted: No Family Member Ethnicity: Non- Living Status: Hx Family Cardiac Disorders: Yes ([place]) Hx Family Respiratory Disorders: No Hx Family Cancer: No Hx Family GI Disorders: No Hx Family Endocrine Disorder: Yes (DM) Hx Family Neuromuscular Disorders: No Hx Family Neurologic Disorders: Yes ([place]) Hx Family HEENT Disorders: No Hx Family Autoimmune Disorders: No Internal Medicine - H&P: Meds Budesonide/Formoterol 160/4.5 [Symbicort] 2 puff IH BIDR 04/21/15 [History] Gabapentin [Neurontin] 800 mg PO TID 04/21/15 [History] Levothyroxine [Synthroid] 100 mcg PO QAM 04/21/15 [History] Tiotropium [Spiriva] 18 mcg IH QAM 04/21/15 [History] metFORMIN [Glucophage] 1,000 mg PO BID 04/21/15 [History] Amlodipine Besylate 2.5 mg PO DAILY 12/27/15 [History] Atorvastatin Calcium [Lipitor] 40 mg PO DAILY 02/04/16 [History] Buspirone HCl [Buspar] 15 mg PO TID 02/04/16 [History] Montelukast [Singulair] 10 mg PO HS 02/04/16 [History] Oxygen 2 l NS AD PRN 03/17/16 [History] Insulin Glargine [Lantus] 80 unit SQ QAM 03/25/16 [History] Insulin Glargine [Lantus] 90 unit SQ QPM 03/25/16 [History] Albuterol Sulfate [Albuterol Inhaler] 2 puff IH Q4HR PRN 05/01/16 [History] Citalopram Hydrobromide [Citalopram HBr] 40 mg PO DAILY 05/01/16 [History] Ipratropium/Albuterol Neb [Duoneb] 3 ml IH Q6H PRN 05/01/16 [History] Raloxifene [Evista] 60 mg PO DAILY 05/01/16 [History] Aripiprazole [Abilify] 10 mg PO HS tablet 05/03/16 [Rx] Fenofibrate Nanocrystallized [Tricor] 200 mg PO DAILY 06/15/16 [History] Clopidogrel [Plavix] 75 mg PO QAM tablet 06/18/16 [Rx] Buprenorphine [Butrans] 15 mcg TD QWEEK 06/27/16 [History] Baclofen [Lioresal] 10 mg PO BID 08/24/16 [History] Bumetanide 2 mg PO DAILY 11/21/16 [History] Aspirin 81 mg PO DAILY #60 tab.chew 12/06/16 [Rx] Nystatin POWDER [Nystop] 1 appl TP BID 12/14/16 [History] Gabapentin [Neurontin] 1,600 mg PO HS 12/31/16 [History] Isosorbide MONOnitrate (24 HR) [Imdur] 90 mg PO QAM 12/31/16 [History] metOLazone [Zaroxolyn] 5 mg PO Q48H 12/31/16 [History] clonazePAM [Klonopin] 1 mg PO TID #90 tablet 01/28/17 [Rx] Insulin ASPART [NovoLOG] 2 - 10 unit SQ TIDWM 03/07/17 [History] Potassium Chloride 20 meq PO BID 03/07/17 [History] Tizanidine HCl [Zanaflex] 4 mg PO TID PRN 03/07/17 [History] Tramadol HCl [Tramadol HCl ER] 300 mg PO DAILY 03/07/17 [History] Allergies No Known Allergies Allergy (Verified 03/06/17 14:31) All Systems PM: A 10-system review of systems was performed and is negative for pertinent findings except as documented above in the HPI. Review of systems: Ten point review of systems is negative except for HPI - Constitutional Vitals: Temp Pulse Resp BP Pulse Ox 98.3 F 93 18 135/80 94 03/06/17 14:26 03/06/17 16:54 03/06/17 17:22 03/06/17 17:22 03/06/17 16:55 Exam: Gen.: patient is alert oriented times 3 not in distress. Cardiac: normal S1 S2 no additional sounds are murmurs. Chest: clear to auscultation. Abdomen: soft nontender nondistended. Lower extremity redness warmth tenderness in both legs. mucous membranes: moist Internal Med - H&P Results - Labs CBC & Chem 7: 03/07/17 02:54 03/07/17 02:54
[2017-03-06] MEDS ORDERED: *HR* Enoxaparin 100 MG/ML SYRINGE SQ ONE (18:23)
[2017-03-06] MEDS: Piperacillin/Tazobactam 3.375 GM in D5% in Water (Mini-Bag+) 100 ML IVPB SCH (18:53)
[2017-03-06] MEDS ORDERED: Vancomycin 1,750 MG in D5% in Water 500 ML IVPB ONE (19:00)
[2017-03-06] MEDS ORDERED: Vancomycin 1,500 MG in D5% in Water 250 ML IVPB SCH (19:00)
[2017-03-06] MEDS: Insulin LISPRO 300 UNITS/3 ML VIAL SQ SCH (21:56)
[2017-03-06] MEDS: *HR* OxyCODONE/APAP 5/325 TABLET PO PRN (22:13)
[2017-03-06] MEDS: clonazePAM 1 MG TABLET PO PRN (22:13)
[2017-03-06] MEDS: Budesonide/Formoterol 160/4.5 MDI IH SCH (23:14)
[2017-03-06] MEDS: Gabapentin 400 MG CAPSULE PO SCH (23:55)
[2017-03-07] MEDS: *HR* OxyCODONE/APAP 5/325 TABLET PO PRN ×5 (02:18→21:37)
[2017-03-07] MEDS: Ipratropium/Albuterol Neb 3 ML IH SCH ×4 (03:32→22:29)
[2017-03-07] MEDS: Piperacillin/Tazobactam 3.375 GM in D5% in Water (Mini-Bag+) 100 ML IVPB SCH ×3 (03:39→21:38)
[2017-03-07 04:01] LABS: Basophils # 0.1 K/mcL (0.0-0.2); Basophils % 0.8 %; Eosinophils # 0.2 K/mcL (0.0-0.6); Eosinophils % 2.4 %; Hematocrit 35.4 % (35.3-44.9); Hemoglobin 10.6 g/dL (11.5-15.4); Immature Granulocytes % 1.1 % (0-4); Lymphocytes # 3.1 K/mcL (0.6-4.6); Lymphocytes % 32.4 %; Mean Corpuscular HGB Conc 29.9 g/dL (31.6-35.5); Mean Corpuscular Hemoglobin 25.2 pg (28.0-33.3); Mean Corpuscular Volume 84.3 fL (83.0-100.0); Mean Platelet Volume 11.5 fL (9.4-12.4); Monocytes # 0.6 K/mcL (0.0-1.3); Monocytes % 5.9 %; Neutrophils # 5.4 K/mcL (1.6-8.9); Platelet Count 236 K/mcL (140-400); Red Cell Distribution Width 15.3 % (11.5-14.5); Segmented Neutrophils % 57.4 %
[2017-03-07 04:12] LABS: BUN/Creatinine Ratio 20 (6-26); Blood Urea Nitrogen 17 mg/dL (7-20); Calcium 9.2 mg/dL (8.6-10.8); Carbon Dioxide 31 mEq/L (19-29); Chloride 98 mEq/L (98-109); Glucose 219 mg/dL (70-99); Magnesium 1.6 mg/dL (1.6-2.6); Osmolality,Calculated 294 (280-300); Potassium 3.1 mEq/L (3.5-4.5); Sodium 138 mEq/L (136-145); eGFR For African Americans > 60 (> 60); eGFR For Non-African Americans > 60 (> 60)
[2017-03-07 04:28] LABS: C-Reactive Protein 19 mg/L (Less than 5)
[2017-03-07] MEDS: Vancomycin 1,500 MG in D5% in Water 250 ML IVPB SCH ×2 (06:27→18:19)
[2017-03-07] MEDS ORDERED: NON-FORMULARY MEDICATION 1 EACH EACH (Insulin Glargine [Lantus] 50 UNIT) SQ SCH ×2 (09:00→18:00)
[2017-03-07] MEDS: Insulin DETEMIR 100 UNIT/ML X5UNITS SQ SCH ×2 (09:18→17:31)
[2017-03-07] MEDS: Insulin LISPRO 300 UNITS/3 ML VIAL SQ SCH ×4 (09:18→21:47)
[2017-03-07] MEDS: Isosorbide MONOnitrate (24 HR) 30 MG TAB.ER.24H PO SCH (09:22)
[2017-03-07] MEDS: Aspirin 81 MG TAB.CHEW PO SCH (09:22)
[2017-03-07] MEDS: Bumetanide 1 MG TABLET PO SCH (09:22)
[2017-03-07] MEDS: Fenofibrate 54 MG TABLET PO SCH (09:23)
[2017-03-07] MEDS: amLODIPine 5 MG TABLET PO SCH (09:23)
[2017-03-07] MEDS: Gabapentin 400 MG CAPSULE PO SCH ×4 (09:23→21:51)
[2017-03-07] MEDS: clonazePAM 1 MG TABLET PO PRN ×2 (09:28→17:35)
--- NOTE | 2017-03-07 09:50 | Internal Med Progress Note ---
Date of Encounter: 03/07/17 Time of Encounter: 09:20 - Assessment and plan (1) Chest pain Current Visit: No Status: Acute Assessment and plan: Patient reports current 10 midsternal chest pain with radiation to both right and left chest. She also reports nausea, diaphoresis, and shortness of breath. Pain is not reproducible with palpation or deep inspiration. Troponins are negative. EKG shows no ST segment changes. History of coronary artery disease. Stress test in October, EF greater than 70%, negative for ischemia or infarct. Cardiology will see patient today. Continue aspirin, statin, beta randy, and Imdur. Continue telemetry Cardiology consult Monitor labs Lovenox subcutaneous daily Qualifiers: Chest pain type: intercostal pain Qualified Code(s): R07.82 - Intercostal pain (2) Cellulitis Current Visit: Yes Status: Acute Assessment and plan: Bilateral lower extremities are red, painful, swollen. Patient has history of cellulitis. Onset one week ago. Continue vancomycin and Zosyn IV. Qualifiers: Site of cellulitis: extremity Site of cellulitis of extremity: lower extremity Laterality: unspecified laterality Qualified Code(s): L03.119 - Cellulitis of unspecified part of limb (3) Diabetes Current Visit: No Status: Chronic Assessment and plan: A1c 9.1 in October. Continue sliding scale insulin, diabetic diet, Accu-Cheks before meals and at bedtime. 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 Continue home medications. Qualifiers: Hyperlipidemia type: unspecified Qualified Code(s): E78.5 - Hyperlipidemia , unspecified (5) Morbid obesity with BMI of 45.0-49.9, adult Current Visit: Yes Status: Chronic Assessment and plan: Chronic. Lifestyle changes. (6) DVT prophylaxis Current Visit: No Status: Acute Assessment and plan: Lovenox subcutaneous daily. - Time Spent With Patient less than 15 minutes - Subjective Interval history: Patient is sitting up in bed, watching TV. Nurses in the room and administering medications. Patient reports midsternal chest pain with radiation to both the right and left chest. Describes it as a pressure. It is not reproducible with palpation or deep inspiration. She reports nausea, diaphoresis, and shortness of breath. Cardiology is consult. Bilateral lower extremities are red, painful. She says she first noticed it about a week ago. Patient also reports that she did not sleep in that she has a headache. She has when necessary medications for pain, will order melatonin for sleep tonight. - Constitutional Vitals: Temp Pulse Resp BP Pulse Ox 98.0 F 69 16 121/75 91 03/07/17 09:00 03/07/17 09:00 03/07/17 09:00 03/07/17 09:12 03/07/17 09:00 General appearance: Present: cooperative, A&O X 3, morbidly obese, pleasant, no acute distress, answers questions appropriately - Head Head exam: Present: normal inspection - Eye Eye exam: Present: normal appearance, conjuntiva pink - ENT ENT exam: Present: mucous membranes moist, normal exam - Respiratory Respiratory exam: Present: CTAB. Absent: chest wall tenderness, rales, respiratory distress, rhonchi, stridor, wheezes - Cardiovascular Cardiovascular exam: Present: RRR, +S1, +S2. Absent: clicks, diastolic murmur, gallop, systolic murmur - GI/Abdominal GI/Abdominal exam: Present: distended, normal bowel sounds, soft. Absent: hepatomegaly, tenderness - Extremities Exam Extremities exam: Present: pedal edema, tenderness, warm, radial pulses palpable and symetrical - Expanded Lower Extremities Exam Lower Leg exam: Present: erythema, swelling, tenderness - Neurological Exam Neurological exam: Present: alert, oriented X3, no focal deficits. Absent: facial droop, speech deficit Internal Medicine: Result - Labs CBC & Chem 7: 03/07/17 02:54 03/07/17 02:54 Labs: Short CBC 03/07/17 Range/Units 02:54 WBC 9.4 (4.3-11.1) K/mcL Hgb 10.6 L (11.5-15.4) g/dL Hct 35.4 (35.3-44.9) % Plt Count 236 (140-400) K/mcL Neutrophils # 5.4 (1.6-8.9) K/mcL BMP 03/07/17 02:54 Sodium 138 Potassium 3.1 L Chloride 98 Carbon Dioxide 31 H BUN 17 Creatinine 0.84 Glucose 219 H Calcium 9.2 Cardiac Enzymes 03/06/17 03/07/17 Range/Units 22:02 02:54 Troponin I 0.01 0.00 (0-0.03) ng/mL - ABG Interpretation ABG results: PT/INR, D-dimer PT 10.3 Seconds (9.4-12.1) 03/06/17 15:41 Consult Discharge Plan - Plan Referrals: Corey Waddell DO [Primary Care Provider] -
--- NOTE | 2017-03-07 10:23 | Cardiology Consult Note ---
Date of Encounter: 03/07/17 Time of Encounter: 10:00 Assessment and Plan (1) Chest pain Current Visit: No Status: Acute Per cardiology: -Patient with somewhat atypical chest pain. Chest pain occured at rest and was not worsened with excertion, however was worsened with movement. Patient states pain was left chest wall and radiated to right chest, left arm, and neck. Of note, patient reports this pain is similar to the pain she had when she required coronary stenting. -Patient denies current chest pain. -Troponins negative x3. -ECG with no ischemic changes. -Nuclear stress 10/2016 negative for ischemia or infarct, gated EF >70%. -Echo 06/28/2016 with LVEF 65%, indeterminate diastolic function, mildly dilated RV with normal function, no significant valvular dysfunction, all wall segments with normal motion. -LHC 05/07/2015 with proximal LAD patent stents, 20% stenosis proximal LAD, 20% proximal circumflex, proximal RCA with patent stents, mid RCA with patent stents , RPL with 95% stenosis, however small vessel. -On asa, statin, beta randy, calcium channel randy, imdur, and plavix -Per discussion with , cardiology will sign off and will follow in outpatient setting. Follow up set. -importance of keeping follow up stressed to patient. Qualifiers: Chest pain type: intercostal pain Qualified Code(s): R07.82 - Intercostal pain (2) CAD (coronary artery disease) Current Visit: No Status: Chronic Per cardiology: -Known CAD with [facility] as above. -ON asa, plavix, statin, beta randy, calcium channerl randy, and imdur. -Patient with chest pain on admission. -Patient denies current chest pain. -Of note, Patient has not followed with cardiology in outpatient setting since . -Previous tobacco abuse, patient reports quit smoking one year ago and has remained smoke free since. -Will continue to monitor in outpatient setting. Qualifiers: Coronary Disease-Associated Artery/Lesion type: [place] artery [place] vs. transplanted heart: [place] heart Associated angina: without angina Qualified Code(s): I25.10 - Atherosclerotic heart disease of [place] coronary artery without angina pectoris (3) Cellulitis Current Visit: No Status: Acute Per cardiology: -Cellultis to bilateral lower extremities. -ON ATB. -Management per primary service. Qualifiers: Site of cellulitis: extremity Site of cellulitis of extremity: lower extremity Laterality: unspecified laterality Qualified Code(s): L03.119 - Cellulitis of unspecified part of limb (4) HTN (hypertension) Current Visit: No Status: Chronic Per cardiology: -KNown HTN. -Patient reports BPs at home have been uncontrolled with SBPs 160-170s. Reports diastolic BP 100s. -On beta randy and calcium channel randy. -BPs currently 100-130s systolic. -Will continue to monitor in outpatient setting. -May have been contributing to chest pain. Qualifiers: Hypertension type: essential hypertension Qualified Code(s): I10 - Essential (primary) hypertension (5) Hypokalemia Current Visit: No Status: Acute Per cardiology: -Hypokalemia with K today 3.1. -K rider ordered per primary service. -Management per primary service. (6) HLD (hyperlipidemia) Current Visit: No Status: Chronic Per cardiology: -KNown hyperlipidemia. -On statin and tricor. -Will continue to monitor in outpatient setting. Qualifiers: Hyperlipidemia type: unspecified Qualified Code(s): E78.5 - Hyperlipidemia , unspecified Discussion w patient/family: The assessment and plan as outlined above was discussed with the patient who expressed understanding and agreement. All questions were answered. Thank you for involving us in the care of your patient. Please call with any questions. Discussed and reviewed with . History of Present Illness Consult date: 03/06/17 Requesting physician: John Walker Consult reason: chest pain Chief complaint: chest pain History of present illness: Ms. Lynch is a 61 year old female with a relevant past medical history of CAD with PCI, cellulitis, DM, HTN, COPD, chronic pain, anxiety, depression, hyperlipidemia, hypothyroidism. Patient states she was woken out of sleep by chest pain. Patient states pain was left sided that radiated to right side and down left arm. Patient states this also went up into her neck. Patient states movement made pain worse and nothing made pain better. Patient states she took a nitro and klonopin at home and was still having chest pain so she called the squad. Patient reports prior to squad arriving, her BP was 170/100. Patient reports that her BPs have been uncontrolled lately, with most systolic BPs 160- 170. Patient denies current chest pain. Patient reports, the pain she was having is the same pain she had prior to needing coronary stenting. Past Med Surg Social Fam HX - Past Medical History Attestation: Yes The following information was validated with the patient. Source: patient, old records reviewed Medical history: arthritis, CHF, COPD, coronary artery disease, diabetes, GERD, hyperlipidemia, hypertension, osteoporosis, thyroid disease, TIA, venous stasis , other Psychiatric history: anxiety, bipolar, depression, panic disorder - Past Surgical History Surgical History: angioplasty/stent, , cholecystectomy, hysterectomy, other - Social History Smoking Status: Former smoker Smokeless Tobacco Status: No Alcohol use: none Drug use: none - Family History Father Adopted: No Family Member Ethnicity: Non- Living Status: Hx Family Cardiac Disorders: Yes Mother Adopted: No Family Member Ethnicity: Non- Living Status: Hx Family Cardiac Disorders: Yes (NM) Hx Family Respiratory Disorders: No Hx Family Cancer: No Hx Family GI Disorders: No Hx Family Endocrine Disorder: Yes (DM) Hx Family Neuromuscular Disorders: No Hx Family Neurologic Disorders: Yes ([place]) Hx Family HEENT Disorders: No Hx Family Autoimmune Disorders: No Medications and Allergies Budesonide/Formoterol 160/4.5 [Symbicort] 2 puff IH BIDR 04/21/15 [History] Gabapentin [Neurontin] 800 mg PO TID 04/21/15 [History] Levothyroxine [Synthroid] 100 mcg PO QAM 04/21/15 [History] Tiotropium [Spiriva] 18 mcg IH QAM 04/21/15 [History] metFORMIN [Glucophage] 1,000 mg PO BID 04/21/15 [History] Amlodipine Besylate 2.5 mg PO DAILY 12/27/15 [History] Atorvastatin Calcium [Lipitor] 40 mg PO DAILY 02/04/16 [History] Buspirone HCl [Buspar] 15 mg PO TID 02/04/16 [History] Montelukast [Singulair] 10 mg PO HS 02/04/16 [History] Oxygen 2 l NS AD PRN 03/17/16 [History] Insulin Glargine [Lantus] 80 unit SQ QAM 03/25/16 [History] Insulin Glargine [Lantus] 90 unit SQ QPM 03/25/16 [History] Albuterol Sulfate [Albuterol Inhaler] 2 puff IH Q4HR PRN 05/01/16 [History] Citalopram Hydrobromide [Citalopram HBr] 40 mg PO DAILY 05/01/16 [History] Ipratropium/Albuterol Neb [Duoneb] 3 ml IH Q6H PRN 05/01/16 [History] Raloxifene [Evista] 60 mg PO DAILY 05/01/16 [History] Aripiprazole [Abilify] 10 mg PO HS tablet 05/03/16 [Rx] Fenofibrate Nanocrystallized [Tricor] 200 mg PO DAILY 06/15/16 [History] Clopidogrel [Plavix] 75 mg PO QAM tablet 06/18/16 [Rx] Buprenorphine [Butrans] 15 mcg TD QWEEK 06/27/16 [History] Baclofen [Lioresal] 10 mg PO BID 08/24/16 [History] Bumetanide 2 mg PO DAILY 11/21/16 [History] Aspirin 81 mg PO DAILY #60 tab.chew 12/06/16 [Rx] Nystatin POWDER [Nystop] 1 appl TP BID 12/14/16 [History] Gabapentin [Neurontin] 1,600 mg PO HS 12/31/16 [History] Isosorbide MONOnitrate (24 HR) [Imdur] 90 mg PO QAM 12/31/16 [History] metOLazone [Zaroxolyn] 5 mg PO Q48H 12/31/16 [History] clonazePAM [Klonopin] 1 mg PO TID #90 tablet 01/28/17 [Rx] Insulin ASPART [NovoLOG] 2 - 10 unit SQ TIDWM 03/07/17 [History] Potassium Chloride 20 meq PO BID 03/07/17 [History] Tizanidine HCl [Zanaflex] 4 mg PO TID PRN 03/07/17 [History] Tramadol HCl [Tramadol HCl ER] 300 mg PO DAILY 03/07/17 [History] Allergies No Known Allergies Allergy (Verified 03/06/17 14:31) All Systems Review: A 10-system review of systems was performed and is negative for pertinent findings except as documented above in the HPI. - Cardiovascular Cardiovascular: as per HPI, chest pain at rest - Integumentary Integumentary: rash Physical Examination Vital Signs, Last 4 Hours Temp Pulse Resp BP Pulse Ox 03/07/17 09:12 121/75 03/07/17 09:00 98.0 F 69 16 106/75 91 General: Conversant, No Apparent Distress HEENT: Atraumatic, Normocephaly, Mucus Membranes Moist Neck: No JVD, Normal carotid pulses Cardiac: Reg Rate and Rhythm, Normal S1 and S2, No Murmur Lungs: Normal Breath Sounds, No Wheeze, Rales, Rhonchi Neuro: Alert and responsive, No focal deficits noted Abdomen: Soft, Non-Tender Skin: Other (Bilateral lower extremities with redness. ) Musculoskeletal: No Chest Wall Tenderness Extremities: No Clubbing, No Cyanosis, Normal Pulses, Other (Mild bilateral lower extremity pedal edema, non-pitting. ) Results 03/07/17 02:54 03/07/17 02:54 Lab Results Impressions Chest X-Ray 03/06/17 15:01 IMPRESSION: Negative portable study. D/ / Carmen Frederick Cha, MD / Carmen Frederick Cha, MD Interpreting Provider: Carmen Frederick Cha, MD Active Medications Albuterol Sulfate (Albuterol Inhaler) 2 puff IH Q4HR PRN PRN Reason: Shortness Of Breath Stop: 09/05/17 18:17 Albuterol/Ipratropium (Duoneb) 3 ml IH [id number] [facility] PRN Reason: Protocol Stop: 09/06/17 04:01 Last Admin: 03/07/17 03:32 Dose: Not Given Amlodipine Besylate (Norvasc) 2.5 mg PO DAILY [facility] Stop: 09/06/17 09:01 Last Admin: 03/07/17 09:23 Dose: 2.5 mg Aripiprazole (Abilify) 10 mg PO HS [facility] Stop: 09/06/17 21:01 Aspirin (Aspirin) 81 mg PO DAILY [facility] Stop: 09/06/17 09:01 Last Admin: 03/07/17 09:22 Dose: 81 mg Atorvastatin Calcium (Lipitor) 40 mg PO DAILY [facility] Stop: 09/06/17 09:01 Last Admin: 03/07/17 09:22 Dose: 40 mg Budesonide/Formoterol Fumarate (Symbicort) 2 puff IH BIDR [facility] PRN Reason: Protocol Stop: 09/05/17 22:01 Last Admin: 03/06/17 23:14 Dose: 2 puff Bumetanide (Bumex) 2 mg PO DAILY [facility] Stop: 09/06/17 09:01 Last Admin: 03/07/17 09:22 Dose: 2 mg Buspirone HCl (Buspar) 15 mg PO TID [facility] Stop: 09/06/17 09:01 Last Admin: 03/07/17 09:23 Dose: 15 mg Citalopram Hydrobromide (Celexa) 40 mg PO DAILY [facility] Stop: 09/06/17 09:01 Last Admin: 03/07/17 09:23 Dose: 40 mg Clonazepam (Klonopin) 1 mg PO TID PRN PRN Reason: Anxiety Stop: 09/06/17 09:01 Last Admin: 03/07/17 09:28 Dose: 1 mg Clopidogrel Bisulfate (Plavix) 75 mg PO QAM [facility] Stop: 09/06/17 09:01 Last Admin: 03/07/17 09:22 Dose: 75 mg Fenofibrate (Tricor) 162 mg PO DAILY [facility] Stop: 09/06/17 09:01 Last Admin: 03/07/17 09:23 Dose: 162 mg Gabapentin (Neurontin) 1,600 mg PO HS [facility] Stop: 09/05/17 23:16 Last Admin: 03/06/17 23:55 Dose: 800 mg Gabapentin (Neurontin) 800 mg PO TID [facility] Stop: 09/06/17 09:01 Last Admin: 03/07/17 09:23 Dose: 800 mg Piperacillin Sod/Tazobactam (Sod 3.375 gm/ Dextrose) 100 mls @ 25 mls/hr IVPB Q8H [facility] PRN Reason: Protocol Stop: 09/05/17 19:01 Last Admin: 03/07/17 09:16 Dose: 25 mls/hr Vancomycin HCl 1,500 mg/ (Dextrose) 250 mls @ 166.67 mls/hr IVPB Q12H [facility] Stop: 09/06/17 07:01 Last Admin: 03/07/17 06:27 Dose: 166.67 mls/hr Insulin Detemir (Levemir) 50 unit SQ QAM [facility] Stop: 09/06/17 09:01 Last Admin: 03/07/17 09:18 Dose: 50 unit Insulin Detemir (Levemir) 50 unit SQ QPM [facility] Stop: 09/06/17 18:01 Insulin Human Lispro (Humalog) 0 units SQ HS [facility] PRN Reason: Protocol Stop: 09/05/17 21:01 Last Admin: 03/06/17 21:56 Dose: Not Given Insulin Human Lispro (Humalog) 0 units SQ TIDAC [facility] PRN Reason: Protocol Stop: 09/06/17 07:31 Last Admin: 03/07/17 09:18 Dose: 4 units Isosorbide [facility]onitrate (Imdur) [facility] Stop: 09/06/17 09:01 Last Admin: 03/07/17 09:22 Dose: 30 mg Levothyroxine Sodium (Synthroid) 100 mcg PO 0630 [facility] Stop: 09/06/17 06:31 Last Admin: 03/07/17 06:27 Dose: 100 mcg Melatonin (Melatonin) 3 mg PO PRN PRN Reason: Insomnia Stop: 09/06/17 09:51 Metoprolol Tartrate (Lopressor) 25 mg PO BID [facility] Stop: 09/05/17 21:01 Last Admin: 03/07/17 09:22 Dose: 25 mg Montelukast Sodium (Singulair) 10 mg PO HS [facility] Stop: 09/06/17 21:01 Omeprazole (Prilosec) 20 mg PO BID [facility] PRN Reason: Protocol Stop: 09/05/17 21:01 Last Admin: 03/07/17 09:22 Dose: 20 mg Oxycodone/Acetaminophen (Percocet 5/325) 1 each PO Q4H PRN PRN Reason: Pain Stop: 09/05/17 21:38 Last Admin: 03/07/17 06:27 Dose: 1 each Tiotropium [place] (Spiriva) 18 mcg IH [facility] PRN Reason: Protocol Stop: 09/06/17 09:01 Laboratory Tests 03/06/17 03/06/17 03/07/17 15:41 22:02 02:54 Hgb 10.6 L Potassium Creatinine Troponin I 0.00 0.01 03/07/17 03/07/17 02:54 02:54 Hgb Potassium 3.1 L Creatinine 0.84 Troponin I 0.00 - Imaging and Cardiology Chest Xray: report reviewed Stress Test: report reviewed Echo: report reviewed Cardiac cath: report reviewed - EKG Interpretation EKG results cardiology: personally reviewed (ECG with sinus rhythm, HR 88.), other (Telemtry reviewed with average HR 75, PACS noted.) Consult Discharge Plan - Plan Referrals: Corey Waddell, [Primary Care Provider] -
[2017-03-07] MEDS: Tiotropium 18 MCG inhalation IH SCH (11:25)
[2017-03-07] MEDS: Budesonide/Formoterol 160/4.5 MDI IH SCH ×2 (11:25→22:29)
--- NOTE | 2017-03-07 12:22 | Electrocardiograph Report ---
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
[2017-03-07] MEDS: ARIPiprazole 10 MG TABLET PO SCH (21:37)
[2017-03-07] MEDS ORDERED: Metoclopramide 10 MG/2 ML VIAL IVP ONE (22:33)
[2017-03-08] MEDS: clonazePAM 1 MG TABLET PO PRN ×3 (03:45→20:51)
[2017-03-08] MEDS: Piperacillin/Tazobactam 3.375 GM in D5% in Water (Mini-Bag+) 100 ML IVPB SCH ×2 (03:45→12:44)
[2017-03-08] MEDS: Ipratropium/Albuterol Neb 3 ML IH SCH ×4 (04:13→21:45)
[2017-03-08] MEDS: *HR* OxyCODONE/APAP 5/325 TABLET PO PRN ×4 (04:38→20:52)
[2017-03-08 06:52] LABS: Basophils # 0.1 K/mcL (0.0-0.2); Basophils % 0.9 %; Eosinophils # 0.3 K/mcL (0.0-0.6); Eosinophils % 2.8 %; Hematocrit 34.8 % (35.3-44.9); Hemoglobin 10.8 g/dL (11.5-15.4); Immature Granulocytes % 1.1 % (0-4); Lymphocytes % 32.9 %; Mean Corpuscular Hemoglobin 26.3 pg (28.0-33.3); Mean Corpuscular Volume 84.7 fL (83.0-100.0); Mean Platelet Volume 11.9 fL (9.4-12.4); Monocytes # 0.6 K/mcL (0.0-1.3); Monocytes % 6.3 %; Neutrophils # 5.1 K/mcL (1.6-8.9); Platelet Count 220 K/mcL (140-400); Red Blood Count 4.11 M/mcL (3.82-4.97); Red Cell Distribution Width 15.1 % (11.5-14.5)
[2017-03-08 07:03] LABS: BUN/Creatinine Ratio 31 (6-26); Blood Urea Nitrogen 23 mg/dL (7-20); Calcium 9.6 mg/dL (8.6-10.8); Carbon Dioxide 33 mEq/L (19-29); Chloride 97 mEq/L (98-109); Glucose 179 mg/dL (70-99); Osmolality,Calculated 294 (280-300); Potassium 3.1 mEq/L (3.5-4.5); Sodium 138 mEq/L (136-145); eGFR For African Americans > 60 (> 60); eGFR For Non-African Americans > 60 (> 60)
[2017-03-08] MEDS ORDERED: Vancomycin 1,000 MG in D5% in Water 250 ML IVPB SCH (08:00)
[2017-03-08] MEDS: Fenofibrate 54 MG TABLET PO SCH (08:31)
[2017-03-08] MEDS: Insulin LISPRO 300 UNITS/3 ML VIAL SQ SCH ×4 (08:31→21:39)
[2017-03-08] MEDS: amLODIPine 5 MG TABLET PO SCH (08:32)
[2017-03-08] MEDS: Isosorbide MONOnitrate (24 HR) 30 MG TAB.ER.24H PO SCH (08:32)
[2017-03-08] MEDS: Bumetanide 1 MG TABLET PO SCH (08:32)
[2017-03-08] MEDS: Potassium Chloride Elixir 20 MEQ/15 ML UDC PO SCH ×2 (08:32→20:50)
[2017-03-08] MEDS: Aspirin 81 MG TAB.CHEW PO SCH (08:33)
[2017-03-08] MEDS: Gabapentin 400 MG CAPSULE PO SCH ×4 (08:33→20:55)
[2017-03-08] MEDS: Insulin DETEMIR 100 UNIT/ML X5UNITS SQ SCH ×2 (08:52→18:38)
[2017-03-08] MEDS: Budesonide/Formoterol 160/4.5 MDI IH SCH ×2 (10:50→21:45)
[2017-03-08] MEDS: Tiotropium 18 MCG inhalation IH SCH (10:52)
[2017-03-08] MEDS ORDERED: Aminoglycoside Consult 1 EACH MC ONE (15:04)
--- NOTE | 2017-03-08 15:41 | Internal Med Progress Note ---
Date of Encounter: 03/08/17 Time of Encounter: 09:30 - Assessment and plan (1) Chest pain Current Visit: No Status: Acute Assessment and plan: Patient continues to endorse generalized chest pain that is acute on chronic. Seen and evaluated per Cardiology who cleared her for outpatient followup. Negative stress test in October 2016. Troponins negative 3. Echocardiogram in May 2016 with ejection fraction of 65%. Of note, patient has not followed up with cardiology in the outpatient setting since April 2014 despite several appointments, many missed appointments. No ECG changes. Low suspicion for acute coronary syndrome. We will observe overnight and likely discharge tomorrow pending clinical outcomes. Patient was again resistant to discharge. (2) Chronic venous stasis dermatitis of both lower extremities Current Visit: No Status: Chronic Assessment and plan: Patient has been admitted to this unit several times in the past. Her legs do not appear to be acutely cellulitic. They have erythema but no edema or warmth. No leukocytosis. No areas of open wounds or drainage. No signs or symptoms consistent with acute cellulitis. We will de-escalate antibiotics at this time and monitor. Feet remain dusky with capillary refill of 3 seconds bilaterally which is chronic for this patient. (3) Cellulitis of both lower extremities Current Visit: No Status: Ruled-out (4) COPD exacerbation Current Visit: No Status: Acute Assessment and plan: Patient endorsing mild shortness of breath above her norm however this is a common complaint. Chest x-ray negative. On examination, aeration fair to good. No increased work of breathing present on examination. We will continue to trend. (5) Dysuria Current Visit: Yes Status: Acute Assessment and plan: patient complaining of dysuria- awaiting UA. No leukocytosis or signs of sepsis. (6) Hypokalemia Current Visit: No Status: Acute Assessment and plan: repleting orally- will trend. magnesium levels normal (7) Anemia Current Visit: No Status: Chronic Assessment and plan: Mild, stable since last month, no signs of active bleeding Qualifiers: Anemia type: unspecified type Qualified Code(s): D64.9 - Anemia, unspecified (8) CAD (coronary artery disease) Current Visit: No Status: Chronic Qualifiers: Coronary Disease-Associated Artery/Lesion type: [place] artery [place] vs. transplanted heart: [place] heart Associated angina: without angina Qualified Code(s): I25.10 - Atherosclerotic heart disease of [place] coronary artery without angina pectoris (9) Insulin dependent diabetes mellitus Current Visit: No Status: Chronic Assessment and plan: Uncontrolled with recent A1c of 9.1%. Continue sliding scale while admitted. (10) Anxiety Current Visit: No Status: Chronic (11) Depression Current Visit: No Status: Chronic Qualifiers: Depression Type: unspecified Qualified Code(s): F32.9 - Major depressive disorder, single episode, unspecified (12) GERD (gastroesophageal reflux disease) Current Visit: No Status: Chronic Assessment and plan: Endorsing current symptoms. Patient is requesting Reglan stating that his work for her in the past, ordered at this time. Qualifiers: Esophagitis presence: esophagitis presence not specified Qualified Code(s) : K21.9 - Gastro-esophageal reflux disease without esophagitis (13) COPD (chronic obstructive pulmonary disease) Current Visit: No Status: Chronic Qualifiers: COPD type: unspecified COPD Qualified Code(s): J44.9 - Chronic obstructive pulmonary disease, unspecified (14) DVT prophylaxis Current Visit: No Status: Acute Assessment and plan: Lovenox subcutaneous daily. (15) Hypothyroidism Current Visit: No Status: Chronic Assessment and plan: TSH checked at the beginning of the year, normal Qualifiers: Hypothyroidism type: acquired Qualified Code(s): E03.9 - Hypothyroidism, unspecified (16) HTN (hypertension) Current Visit: No Status: Chronic Assessment and plan: Controlled, will continue to trend Qualifiers: Hypertension type: essential hypertension Qualified Code(s): I10 - Essential (primary) hypertension (17) Tobacco use disorder Current Visit: No Status: Resolved Assessment and plan: stopped smoking (18) Chronic respiratory failure with hypoxia Current Visit: No Status: Chronic Assessment and plan: 2 L per nasal cannula at home. She was initially on 0.5 liter this morning, increased back to 2 L. We will trend. (19) Chronic diastolic CHF (congestive heart failure) Current Visit: No Status: Chronic Assessment and plan: Chronic diastolic heart failure without acute exacerbation. Echocardiogram from the end of 2016 revealing ejection fraction of 65%. (20) Polypharmacy Current Visit: No Status: Chronic (21) Non-compliance Current Visit: No Status: Chronic (22) Morbid obesity with BMI of 45.0-49.9, adult Current Visit: Yes Status: Chronic Assessment and plan: Chronic. Lifestyle changes. - Subjective Interval history: Patient seen and examined. On examination, patient initially asleep and awaken easily to voice and light touch. Patient stating that she continues to have chest pain. She continues to be short of breath above her norm. She also continues to have lower extremity pain. She is also endorsing dysuria. - Constitutional Vitals: Temp Pulse Resp BP Pulse Ox 97.7 F 63 16 103/52 96 03/08/17 15:08 03/08/17 15:08 03/08/17 15:08 03/08/17 15:08 03/08/17 15:08 General appearance: Present: cooperative, A&O X 3, morbidly obese, no acute distress, answers questions appropriately - Head Head exam: Present: atraumatic, normocephalic - Eye Eye exam: Present: PERRL, conjuntiva pink, sclera anicteric Pupils: Present: PERRL - Neck Neck exam general surgery: Present: supple, trachea midline. Absent: lymphadenopathy - Respiratory Respiratory exam: Present: decreased breath sounds, rhonchi. Absent: accessory muscle use, rales, respiratory distress, wheezes - Cardiovascular Cardiovascular exam: Present: RRR, +S1, +S2. Absent: diastolic murmur, gallop, rubs, systolic murmur - GI/Abdominal GI/Abdominal exam: Present: normal bowel sounds, soft, no peritoneal signs. Absent: distended, tenderness - Extremities Exam Extremities exam: Present: warm, radial pulses palpable and symetrical. Absent : calf tenderness, cyanotic, pedal edema - Expanded Lower Extremities Exam Lower Leg exam: Present: erythema, tenderness. Absent: swelling Ankle exam: Absent: swelling Foot/Toe exam: Absent: erythema, swelling Neuro vascular tendon exam: Present: abnormal cap refill (3 secs bilaterally; feet dusky- pt states normal for her). Absent: pulse deficit - Neurological Exam Neurological exam: Present: alert, CN II-XII intact, oriented X3, no focal deficits, strengths equal and symetr throughout. Absent: pronater drift, facial droop, speech deficit - Skin Skin exam: Present: dry, intact, normal color, warm Internal Medicine: Result - Labs CBC & Chem 7: 03/08/17 05:58 03/08/17 05:58 Labs: Short CBC 03/08/17 Range/Units 05:58 WBC 9.2 (4.3-11.1) K/mcL Hgb 10.8 L (11.5-15.4) g/dL Hct 34.8 L (35.3-44.9) % Plt Count 220 (140-400) K/mcL Neutrophils # 5.1 (1.6-8.9) K/mcL BMP 03/08/17 05:58 Sodium 138 Potassium 3.1 L Chloride 97 L Carbon Dioxide 33 H BUN 23 H Creatinine 0.75 Glucose 179 H Calcium 9.6 - ABG Interpretation ABG results: PT/INR, D-dimer PT 10.3 Seconds (9.4-12.1) 03/06/17 15:41 Consult Discharge Plan - Plan Referrals: Corey Waddell DO [Primary Care Provider] -
[2017-03-08] MEDS ORDERED: metOLazone 5 MG TABLET PO SCH (17:00)
[2017-03-08] MEDS: Metoclopramide 10 MG/2 ML VIAL IVP PRN (18:29)
[2017-03-08] MEDS: Sulfamethoxazole/Trimeth DS 1 EACH TABLET PO SCH (20:51)
[2017-03-08] MEDS: Melatonin 3 MG TABLET PO PRN (20:51)
[2017-03-08] MEDS: ARIPiprazole 10 MG TABLET PO SCH (20:51)
[2017-03-08] MEDS: Baclofen 10 MG TABLET PO SCH (20:52)
[2017-03-08] MEDS: Nystatin POWDER 30 GM BOTTLE TP SCH (20:55)
[2017-03-09] MEDS: Ipratropium/Albuterol Neb 3 ML IH SCH ×4 (03:54→22:28)
[2017-03-09] MEDS: *HR* OxyCODONE/APAP 5/325 TABLET PO PRN ×3 (04:31→21:25)
[2017-03-09 05:19] LABS: BUN/Creatinine Ratio 29 (6-26); Blood Urea Nitrogen 24 mg/dL (7-20); Calcium 9.4 mg/dL (8.6-10.8); Carbon Dioxide 34 mEq/L (19-29); Chloride 99 mEq/L (98-109); Glucose 285 mg/dL (70-99); Magnesium 1.6 mg/dL (1.6-2.6); Osmolality,Calculated 306 (280-300); Sodium 141 mEq/L (136-145); eGFR For African Americans > 60 (> 60); eGFR For Non-African Americans > 60 (> 60)
[2017-03-09 05:26] LABS: Potassium 3.6 mEq/L (3.5-4.5)
[2017-03-09] MEDS: Baclofen 10 MG TABLET PO SCH ×2 (07:43→19:48)
[2017-03-09] MEDS: Fenofibrate 54 MG TABLET PO SCH (07:44)
[2017-03-09] MEDS: Isosorbide MONOnitrate (24 HR) 30 MG TAB.ER.24H PO SCH (07:44)
[2017-03-09] MEDS: Aspirin 81 MG TAB.CHEW PO SCH (07:44)
[2017-03-09] MEDS: Bumetanide 1 MG TABLET PO SCH (07:44)
[2017-03-09] MEDS: Sulfamethoxazole/Trimeth DS 1 EACH TABLET PO SCH ×2 (07:44→19:46)
[2017-03-09] MEDS: Gabapentin 400 MG CAPSULE PO SCH ×4 (07:44→19:52)
[2017-03-09] MEDS: amLODIPine 5 MG TABLET PO SCH (07:45)
[2017-03-09] MEDS: tiZANidine 4 MG TABLET PO PRN ×2 (07:53→19:47)
[2017-03-09] MEDS: clonazePAM 1 MG TABLET PO PRN ×2 (07:53→17:29)
[2017-03-09] MEDS: Insulin LISPRO 300 UNITS/3 ML VIAL SQ SCH ×3 (07:57→16:52)
[2017-03-09] MEDS: Nystatin POWDER 30 GM BOTTLE TP SCH ×2 (08:04→19:57)
[2017-03-09 08:36] LABS: Bilirubin,Urine Negative (Negative); Blood,Urine Negative (Negative); Clarity,Urine Clear (Clear); Color,Urine Yellow (Yellow); Glucose,Urine (UA) 100 mg/dL (Normal); Ketones,Urine Negative (Negative); Leukocyte Esterase,Urine Small (Negative); Nitrite,Urine Negative (Negative); Protein,Urine Negative (Neg-Trace); Specific Gravity,Urine 1.016 (1.010-1.025); Urobilinogen,Urine Normal (Normal)
[2017-03-09 08:39] LABS: Bacteria,Urine None Seen per hpf (None-Few); Hyaline Casts,Urine None Seen per lpf (None-Few); RBC,Urine 0-3 per hpf (0-3); Squamous Epithelial Cell,Urine Few per lpf (None-Few)
[2017-03-09] MEDS: Insulin DETEMIR 100 UNIT/ML X5UNITS SQ SCH ×2 (10:14→18:28)
[2017-03-09] MEDS: Tiotropium 18 MCG inhalation IH SCH (10:27)
[2017-03-09] MEDS: Budesonide/Formoterol 160/4.5 MDI IH SCH ×2 (10:28→22:28)
--- NOTE | 2017-03-09 17:00 | Internal Med Progress Note ---
Date of Encounter: 03/09/17 Time of Encounter: 09:30 - Assessment and plan (1) Dysuria Current Visit: Yes Status: Acute Assessment and plan: patient complaining of dysuria. Patient stating she has had dysuria for several months and then states "they must be putting me on the wrong antibiotics because none of them have worked." In review of her chart, her most recent urine cultures one from December and one from October were both Escherichia coli that had several resistances to oral antibiotics. Decent coverage with cephalosporins, patient has been placed on ceftriaxone. Given that this appears to be a resistant urinary tract infection that has been treated with Bactrim which it is resistant to in the outpatient setting, will keep her until the sensitivity report is available. There is a possibility she may need IV antibiotics to finally clear up this urinary tract infection. Of note, concern for possible false-negative report given that she was on antibiotics for her presumed cellulitis for 2 days prior to the attainment of her urine sample. No leukocytosis or signs of sepsis. Will await urine culture and sensitivity reports. (2) Chest pain Current Visit: No Status: Acute Assessment and plan: Patient continues to endorse generalized chest pain that is acute on chronic. Seen and evaluated per Cardiology who cleared her for outpatient followup. Negative stress test in October 2016. Troponins negative 3. Echocardiogram in May 2016 with ejection fraction of 65%. Of note, patient has not followed up with cardiology in the outpatient setting since April 2014 despite several appointments, many missed appointments. No ECG changes. Low suspicion for acute coronary syndrome. Unfortunately, she has an abnormal urinalysis and has a hisotry of resistance infections recently; will await urine culture. Cleared from a cardiac standpoint. (3) Chronic venous stasis dermatitis of both lower extremities Current Visit: No Status: Chronic Assessment and plan: Patient has been admitted to this unit several times in the past. Her legs do not appear to be acutely cellulitic. They have erythema but no edema or warmth. No leukocytosis. No areas of open wounds or drainage. No signs or symptoms consistent with acute cellulitis. We will de-escalate antibiotics at this time to PO bactrim and monitor. Feet remain dusky with capillary refill of 3 seconds bilaterally which is chronic for this patient. (4) Cellulitis of both lower extremities Current Visit: No Status: Ruled-out (5) COPD exacerbation Current Visit: No Status: Acute Assessment and plan: Patient endorsing mild shortness of breath above her norm however this is a common complaint. Chest x-ray negative. On examination, aeration fair to good. No increased work of breathing present on examination. We will continue to trend. (6) Hypokalemia Current Visit: No Status: Resolved (7) Anemia Current Visit: No Status: Chronic Assessment and plan: Mild, stable since last month, no signs of active bleeding Qualifiers: Anemia type: unspecified type Qualified Code(s): D64.9 - Anemia, unspecified (8) CAD (coronary artery disease) Current Visit: No Status: Chronic Qualifiers: Coronary Disease-Associated Artery/Lesion type: [place] artery [place] vs. transplanted heart: [place] heart Associated angina: without angina Qualified Code(s): I25.10 - Atherosclerotic heart disease of [place] coronary artery without angina pectoris (9) Insulin dependent diabetes mellitus Current Visit: No Status: Chronic Assessment and plan: Uncontrolled with recent A1c of 9.1%. Continue sliding scale while admitted. Hyperglycemia greater than 400 noted today, we will increase sliding scale (10) Anxiety Current Visit: No Status: Chronic (11) Depression Current Visit: No Status: Chronic Qualifiers: Depression Type: unspecified Qualified Code(s): F32.9 - Major depressive disorder, single episode, unspecified (12) GERD (gastroesophageal reflux disease) Current Visit: No Status: Chronic Assessment and plan: Endorsing current symptoms that are abated with Reglan. Continue PRN- tolerating regular diet. Qualifiers: Esophagitis presence: esophagitis presence not specified Qualified Code(s) : K21.9 - Gastro-esophageal reflux disease without esophagitis (13) COPD (chronic obstructive pulmonary disease) Current Visit: No Status: Chronic Qualifiers: COPD type: unspecified COPD Qualified Code(s): J44.9 - Chronic obstructive pulmonary disease, unspecified (14) DVT prophylaxis Current Visit: No Status: Acute Assessment and plan: Lovenox subcutaneous daily. (15) Hypothyroidism Current Visit: No Status: Chronic Assessment and plan: TSH checked at the beginning of the year, normal Qualifiers: Hypothyroidism type: acquired Qualified Code(s): E03.9 - Hypothyroidism, unspecified (16) HTN (hypertension) Current Visit: No Status: Chronic Assessment and plan: Controlled, will continue to trend Qualifiers: Hypertension type: essential hypertension Qualified Code(s): I10 - Essential (primary) hypertension (17) Tobacco use disorder Current Visit: No Status: Resolved Assessment and plan: stopped smoking (18) Chronic respiratory failure with hypoxia Current Visit: No Status: Chronic Assessment and plan: 2 L per nasal cannula at home. She was initially on 0.5 liter this morning, increased back to 2 L. We will trend. (19) Chronic diastolic CHF (congestive heart failure) Current Visit: No Status: Chronic Assessment and plan: Chronic diastolic heart failure without acute exacerbation. Echocardiogram from the end of 2016 revealing ejection fraction of 65%. (20) Polypharmacy Current Visit: No Status: Chronic (21) Non-compliance Current Visit: No Status: Chronic (22) Morbid obesity with BMI of 45.0-49.9, adult Current Visit: Yes Status: Chronic Assessment and plan: Chronic. Lifestyle changes. - Subjective Interval history: Patient seen and examined. On examination, patient sitting upright in bed. She is alert and oriented x3 and states that she had a "rough night." She is still complaining of dysuria. She is also endorsing continued chest pain but now denies shortness of breath above her norm. She states she is eating well. - Constitutional Vitals: Temp Pulse Resp BP Pulse Ox 97.6 F 70 12 104/66 94 03/09/17 15:51 03/09/17 15:51 03/09/17 15:51 03/09/17 16:31 03/09/17 15:51 General appearance: Present: cooperative, A&O X 3, morbidly obese, pleasant, no acute distress, answers questions appropriately - Head Head exam: Present: atraumatic, normocephalic - Eye Eye exam: Present: PERRL, conjuntiva pink, sclera anicteric Pupils: Present: PERRL - Neck Neck exam general surgery: Present: supple, trachea midline. Absent: lymphadenopathy - Respiratory Respiratory exam: Present: decreased breath sounds. Absent: accessory muscle use, rales, respiratory distress, rhonchi, wheezes - Cardiovascular Cardiovascular exam: Present: RRR, +S1, +S2. Absent: diastolic murmur, gallop, rubs, systolic murmur - GI/Abdominal GI/Abdominal exam: Present: normal bowel sounds, soft, no peritoneal signs. Absent: distended, tenderness - Extremities Exam Extremities exam: Present: warm, radial pulses palpable and symetrical. Absent : calf tenderness, cyanotic, pedal edema - Expanded Lower Extremities Exam Lower Leg exam: Present: erythema, tenderness. Absent: swelling Neuro vascular tendon exam: Present: abnormal cap refill (3 secs bilaterally) - Neurological Exam Neurological exam: Present: alert, CN II-XII intact, oriented X3, no focal deficits, strengths equal and symetr throughout. Absent: pronater drift, facial droop, speech deficit - Skin Skin exam: Present: dry, intact, pallor, warm Internal Medicine: Result - Labs CBC & Chem 7: 03/08/17 05:58 03/09/17 04:36 Labs: BMP 03/09/17 04:36 Sodium 141 Potassium 3.6 Chloride 99 Carbon Dioxide 34 H BUN 24 H Creatinine 0.83 Glucose 285 H Calcium 9.4 Urine 03/08/17 Range/Units 11:10 Urine Color Yellow (Yellow) Urine Clarity Clear (Clear) Urine pH 6.0 (5.0-8.0) pH Units Ur Specific [place] 1.016 (1.010-1.025) Urine Protein Negative (Neg-Trace) mg/dL Urine Glucose (UA) 100 H (Normal) mg/dL - ABG Interpretation ABG results: PT/INR, D-dimer PT 10.3 Seconds (9.4-12.1) 03/06/17 15:41 Consult Discharge Plan - Plan Referrals: Yamile Awad CNP [Advanced Practice Nurse] - 04/06/17 9:45 am Corey Waddell DO [Primary Care Provider] - 03/15/17 11:00 am (This appointment will be with Dr. Holley.)
[2017-03-09] MEDS ORDERED: Insulin LISPRO 300 UNITS/3 ML VIAL SQ SCH ×2 (17:09→21:00)
[2017-03-09] MEDS: Vancomycin 1,500 MG in D5% in Water 250 ML IVPB SCH (19:06)
[2017-03-09 19:15] LABS: CK-MB (CK isoenzymes) 0 % (0-4); CK-MM (CK-isoenzymes) 100 % (96-100)
[2017-03-09 19:15] LABS: CK-MB (CK isoenzymes) 0 % (0-4); CK-MM (CK-isoenzymes) 100 % (96-100)
[2017-03-09] MEDS: ARIPiprazole 10 MG TABLET PO SCH (19:47)
[2017-03-09] MEDS: Metoclopramide 10 MG/2 ML VIAL IVP PRN (22:43)
[2017-03-09] MEDS: Melatonin 3 MG TABLET PO PRN (22:43)
[2017-03-10] MEDS: *HR* OxyCODONE/APAP 5/325 TABLET PO PRN ×2 (03:00→10:05)
[2017-03-10] MEDS: Ipratropium/Albuterol Neb 3 ML IH SCH ×2 (04:37→11:08)
[2017-03-10] MEDS: tiZANidine 4 MG TABLET PO PRN (05:00)
[2017-03-10 07:05] VITALS: BP 106/67
[2017-03-10] MEDS: Aspirin 81 MG TAB.CHEW PO SCH (08:05)
[2017-03-10] MEDS: Fenofibrate 54 MG TABLET PO SCH (08:05)
[2017-03-10] MEDS: Baclofen 10 MG TABLET PO SCH (08:05)
[2017-03-10] MEDS: Bumetanide 1 MG TABLET PO SCH (08:05)
[2017-03-10] MEDS: Isosorbide MONOnitrate (24 HR) 30 MG TAB.ER.24H PO SCH (08:05)
[2017-03-10] MEDS: Gabapentin 400 MG CAPSULE PO SCH (08:06)
[2017-03-10] MEDS: amLODIPine 5 MG TABLET PO SCH (08:06)
[2017-03-10] MEDS: clonazePAM 1 MG TABLET PO PRN (08:06)
[2017-03-10] MEDS: Sulfamethoxazole/Trimeth DS 1 EACH TABLET PO SCH (08:06)
[2017-03-10] MEDS ORDERED: Sennosides/Docusate Sodium TABLET PO SCH (09:45)
[2017-03-10] MEDS: Nystatin POWDER 30 GM BOTTLE TP SCH (10:00)
[2017-03-10] MEDS: Insulin DETEMIR 100 UNIT/ML X5UNITS SQ SCH (10:00)
[2017-03-10] MEDS: Tiotropium 18 MCG inhalation IH SCH (10:05)
--- NOTE | 2017-03-10 10:20 | Discharge Summary ---
Date of Encounter: 03/10/17 Time of Encounter: 09:45 - Discharge Diagnosis (1) Dysuria Priority: Primary Status: Acute Comments: Patient complaining of dysuria throughout this admission. Patient stating she has had dysuria for several months and then states "they must be putting me on the wrong antibiotics because none of them have worked." In review of her chart , her most recent urine cultures one from December and one from October were both Escherichia coli that had several resistances to oral antibiotics. Decent coverage with cephalosporins, patient has been placed on ceftriaxone and will be sent home on Cefdinir. Urine culture was negative however she was on antibiotics for 2 days prior to urine sample attainment. (2) Chest pain Priority: Primary Status: Acute Comments: Patient continues to endorse generalized chest pain that is acute on chronic. Seen and evaluated per Cardiology who cleared her for outpatient followup. Negative stress test in October 2016. Troponins negative 3. Echocardiogram in May 2016 with ejection fraction of 65%. Of note, patient has not followed up with cardiology in the outpatient setting since April 2014 despite several appointments, many missed appointments. No ECG changes. Low suspicion for acute coronary syndrome. Unfortunately, she has an abnormal urinalysis and has a hisotry of resistance infections recently; will await urine culture. Cleared from a cardiac standpoint. (3) Chronic venous stasis dermatitis of both lower extremities Priority: Secondary Status: Chronic (4) Cellulitis of both lower extremities Priority: Primary Status: Ruled-out Comments: Patient has been admitted to this unit several times in the past. Her legs do not appear to be acutely cellulitic. They have erythema but no edema or warmth. No leukocytosis. No areas of open wounds or drainage. No signs or symptoms consistent with acute cellulitis. Initially on IV antibiotics, placed on PO bactrim. Feet remain dusky with capillary refill of 3 seconds bilaterally which is chronic for this patient. (5) COPD exacerbation Priority: Primary Status: Acute Comments: Patient endorsing mild shortness of breath above her norm however this is a common complaint. Chest x-ray negative. On examination, aeration fair to good. No increased work of breathing present on examination. Follow-up outpatient (6) Hypokalemia Priority: Primary Status: Resolved (7) Anemia Priority: Secondary Status: Chronic Comments: Mild, stable since last month, no signs of active bleeding Qualifiers: Anemia type: unspecified type Qualified Code(s): D64.9 - Anemia, unspecified (8) CAD (coronary artery disease) Priority: Secondary Status: Chronic Qualifiers: Coronary Disease-Associated Artery/Lesion type: [place] artery [place] vs. transplanted heart: [place] heart Associated angina: without angina Qualified Code(s): I25.10 - Atherosclerotic heart disease of [place] coronary artery without angina pectoris (9) Insulin dependent diabetes mellitus Priority: Secondary Status: Chronic Comments: Uncontrolled with recent A1c of 9.1%. Patient with lengthy history of noncompliance. Continue follow-up outpatient (10) Anxiety Priority: Secondary Status: Chronic (11) Depression Priority: Secondary Status: Chronic Qualifiers: Depression Type: unspecified Qualified Code(s): F32.9 - Major depressive disorder, single episode, unspecified (12) GERD (gastroesophageal reflux disease) Priority: Secondary Status: Chronic Qualifiers: Esophagitis presence: esophagitis presence not specified Qualified Code(s) : K21.9 - Gastro-esophageal reflux disease without esophagitis (13) COPD (chronic obstructive pulmonary disease) Priority: Secondary Status: Chronic Qualifiers: COPD type: unspecified COPD Qualified Code(s): J44.9 - Chronic obstructive pulmonary disease, unspecified (14) DVT prophylaxis Priority: Primary Status: Acute Comments: Subcutaneous Lovenox while admitted (15) Hypothyroidism Priority: Secondary Status: Chronic Comments: TSH checked at the beginning of the year, normal Qualifiers: Hypothyroidism type: acquired Qualified Code(s): E03.9 - Hypothyroidism, unspecified (16) HTN (hypertension) Priority: Secondary Status: Chronic Comments: Controlled, follow-up outpatient Qualifiers: Hypertension type: essential hypertension Qualified Code(s): I10 - Essential (primary) hypertension (17) Tobacco use disorder Priority: Secondary Status: Resolved (18) Chronic respiratory failure with hypoxia Priority: Secondary Status: Chronic Comments: 2 L per nasal cannula at home. No increased need (19) Chronic diastolic CHF (congestive heart failure) Priority: Secondary Status: Chronic Comments: Chronic diastolic heart failure without acute exacerbation. Echocardiogram from the end of 2016 revealing ejection fraction of 65%. (20) Polypharmacy Priority: Secondary Status: Chronic (21) Non-compliance Priority: Secondary Status: Chronic (22) Morbid obesity with BMI of 45.0-49.9, adult Priority: Secondary Status: Chronic - Discharge Medications Prescriptions: Cefdinir [Omnicef] 300 mg PO BID #14 capsule Isosorbide MONOnitrate (24 HR) [Imdur] 30 mg PO QAM #30 Walker W Wheels [WHEELED WALKER] 1 each .ROUTE AD #1 each Home Medications: Budesonide/Formoterol 160/4.5 [Symbicort] 2 puff IH BIDR 04/21/15 [History] Gabapentin [Neurontin] 800 mg PO TID 04/21/15 [History] Levothyroxine [Synthroid] 100 mcg PO QAM 04/21/15 [History] Tiotropium [Spiriva] 18 mcg IH QAM 04/21/15 [History] metFORMIN [Glucophage] 1,000 mg PO BID 04/21/15 [History] Amlodipine Besylate 2.5 mg PO DAILY 12/27/15 [History] Atorvastatin Calcium [Lipitor] 40 mg PO DAILY 02/04/16 [History] Buspirone HCl [Buspar] 15 mg PO TID 02/04/16 [History] Montelukast [Singulair] 10 mg PO HS 02/04/16 [History] Oxygen 2 l NS AD PRN 03/17/16 [History] Insulin Glargine [Lantus] 80 unit SQ QAM 03/25/16 [History] Insulin Glargine [Lantus] 90 unit SQ QPM 03/25/16 [History] Albuterol Sulfate [Albuterol Inhaler] 2 puff IH Q4HR PRN 05/01/16 [History] Citalopram Hydrobromide [Citalopram HBr] 40 mg PO DAILY 05/01/16 [History] Ipratropium/Albuterol Neb [Duoneb] 3 ml IH Q6H PRN 05/01/16 [History] Raloxifene [Evista] 60 mg PO DAILY 05/01/16 [History] Aripiprazole [Abilify] 10 mg PO HS tablet 05/03/16 [Rx] Fenofibrate Nanocrystallized [Tricor] 200 mg PO DAILY 06/15/16 [History] Clopidogrel [Plavix] 75 mg PO QAM tablet 06/18/16 [Rx] Buprenorphine [Butrans] 15 mcg TD QWEEK 06/27/16 [History] Baclofen [Lioresal] 10 mg PO BID 08/24/16 [History] Bumetanide 2 mg PO DAILY 11/21/16 [History] Aspirin 81 mg PO DAILY #60 tab.chew 12/06/16 [Rx] Nystatin POWDER [Nystop] 1 appl TP BID 12/14/16 [History] Gabapentin [Neurontin] 1,600 mg PO HS 12/31/16 [History] Isosorbide MONOnitrate (24 HR) [Imdur] 90 mg PO QAM 12/31/16 [History] metOLazone [Zaroxolyn] 5 mg PO Q48H 12/31/16 [History] clonazePAM [Klonopin] 1 mg PO TID #90 tablet 01/28/17 [Rx] Insulin ASPART [NovoLOG] 2 - 10 unit SQ TIDWM 03/07/17 [History] Potassium Chloride 20 meq PO BID 03/07/17 [History] Tizanidine HCl [Zanaflex] 4 mg PO TID PRN 03/07/17 [History] Tramadol HCl [Tramadol HCl ER] 300 mg PO DAILY 03/07/17 [History] Cefdinir [Omnicef] 300 mg PO BID #14 capsule 03/10/17 [Rx] Isosorbide MONOnitrate (24 HR) [Imdur] 30 mg PO QAM #30 03/10/17 [Rx] Metoprolol [Lopressor] 25 mg PO BID tab 03/10/17 [Rx] OxyCODONE/APAP 5/325 [Percocet 5/325 MG] 1 each PO Q4H PRN tab 03/10/17 [Rx] Walker W Wheels [WHEELED WALKER] 1 each .ROUTE AD #1 each 03/10/17 [Rx] Allergies/Adverse Reactions: Allergies No Known Allergies Allergy (Verified 03/06/17 14:31) Date of admission: 03/06/17 17:12 Primary care physician: Corey Waddell, Consults: 03/09/17 11:29 Consult to Occupational Therapy [CONS] Routine Comment: Evaluate, develop and implement POC Reason for Consult: weakness Consult to Physical Therapy [CONS] Routine Comment: Evaluate, develop and implement POC Reason for Consult: weakness Discharging clinician: Keyanna Irizarry Anticipated date of discharge: 03/10/17 - Patient Status Disposition: Home Health Service Condition: Fair Functional capacity at discharge: uses cane/walker Overall status at discharge: patient is progressing back to baseline - Discharge Instructions Follow Up With: Yamile Awad CNP [Advanced Practice Nurse] - 04/06/17 9:45 am Corey Waddell DO [Primary Care Provider] - 03/15/17 11:00 am (This appointment will be with Dr. Holley.) Additional Instructions: Follow-up with primary care provider and cafeteria cook as scheduled - Diet and Activity Activity: as per physical therapy, increase activity as tolerated Diet: diabetic diet, low fat, low cholesterol, low salt diet Hospital course: Ms. Lynch is a 61 year old female with extensive past medical history including CAD status post stent, heart failure, COPD on supplemental oxygenation at home, uncontrolled diabetes, GERD, hyperlipidemia, hypertension, hypothyroidism, TIA, panic attacks, cholecystectomy, hysterectomy, former tobacco abuse, and morbid obesity. This patient has frequent rehospitalizations with 30 hospitalizations over the past year. Patient presented to the emergency department chief complaint chest pain. She woke up on the morning of presentation with retrosternally located chest pain that was constant until she arrived at the emergency department. Patient stating the pain worsened with exertion and was not improved with nitroglycerin. Patient also endorsed redness and warmth and tenderness and swelling to both legs. Workup in the emergency department unremarkable. Chest x-ray negative. Patient was admitted to the hospitalist service for further evaluation and management. She was initially treated for cellulitis with IV vancomycin and Zosyn however the patient's legs were noted to be consistent with her chronic examination shortly after admission. She had lower extremity erythema which is her baseline but no warmth or edema or signs of acute cellulitis so antibiotics were de-escalate it to by mouth Bactrim. No leukocytosis. No areas of open wounds or drainage. She started to complain of severe dysuria on the second day of her admission and a urinalysis was obtained which was abnormal however urine culture was negative. Concern for possibility of false-negative as if she had early received several rounds of IV antibiotics. In review for chart, patient has been complaining of dysuria for several months and her most recent urine cultures one from December and one from October were both Escherichia coli that had several resistances to oral antibiotics. Urine cultures consistent with decent coverage of cephalosporin so she was treated with ceftriaxone while admitted and sent home on Ceftin ear. Patient also complained of generalized weakness so occupational and physical therapy were brought on board both of whom recommended home health. Cardiology was brought on board as the patient continually complained of chest pain. Regarding her cardiac history, she had a negative stress test in October 2016. Troponins negative 3. Echocardiogram in May 2016 with ejection fraction of 65%. Of note, patient has not followed up with cardiology in the outpatient setting since April 2014 despite several appointments, many missed appointments. No ECG changes. Low suspicion for acute coronary syndrome and she was seen and cleared for outpatient follow- up per cardiology. She was discharged home in stable condition with close outpatient follow-up recommended. ITS Impressions Chest X-Ray 03/06/17 15:01 IMPRESSION: Negative portable study. D/ / Carmen Frederick Cha, MD / Carmen Frederick Cha, MD Interpreting Provider: Carmen Frederick Cha, MD - Time Spent with Patient Total time spent providing and/or coordinating discharge services: - Constitutional Vitals: Temp Pulse Resp BP Pulse Ox 97.8 F 62 17 106/67 91 03/10/17 06:56 03/10/17 06:56 03/10/17 06:56 03/10/17 06:56 03/10/17 08:17 General appearance: Present: cooperative, A&O X 3, morbidly obese, pleasant, no acute distress, answers questions appropriately - Head Head exam: Present: atraumatic, normocephalic - Eye Eye exam: Present: PERRL, conjuntiva pink, sclera anicteric Pupils: Present: PERRL - Neck Neck exam general surgery: Present: supple, trachea midline. Absent: lymphadenopathy - Respiratory Respiratory exam: Present: decreased breath sounds. Absent: accessory muscle use, rales, respiratory distress, rhonchi, wheezes - Cardiovascular Cardiovascular exam: Present: RRR, +S1, +S2. Absent: diastolic murmur, gallop, rubs, systolic murmur - GI/Abdominal GI/Abdominal exam: Present: normal bowel sounds, soft, no peritoneal signs. Absent: distended, tenderness - Extremities Exam Extremities exam: Present: warm, radial pulses palpable and symetrical. Absent : calf tenderness, cyanotic, pedal edema - Expanded Lower Extremities Exam Lower Leg exam: Present: erythema, tenderness. Absent: swelling Neuro vascular tendon exam: Present: abnormal cap refill (3 secs bilaterally- chronic) - Neurological Exam Neurological exam: Present: alert, CN II-XII intact, normal gait, oriented X3, no focal deficits, strengths equal and symetr throughout. Absent: pronater drift, facial droop, speech deficit - Skin Skin exam: Present: dry, intact, normal color, warm
--- NOTE | 2017-03-10 10:43 | Physician Discharge Referral ---
Home Health/Hosp Referral Info Transfer to: Home Health Attending Provider: Jeremy Irizarry CNP Provider in Charge Post Discharge: PCP - Diagnosis (1) Dysuria Priority: Primary Status: Acute (2) Chest pain Priority: Primary Status: Acute (3) Chronic venous stasis dermatitis of both lower extremities Priority: Secondary Status: Chronic (4) Cellulitis of both lower extremities Priority: Primary Status: Ruled-out (5) COPD exacerbation Priority: Primary Status: Acute (6) Hypokalemia Priority: Primary Status: Resolved (7) Anemia Priority: Secondary Status: Chronic (8) CAD (coronary artery disease) Priority: Secondary Status: Chronic (9) Insulin dependent diabetes mellitus Priority: Secondary Status: Chronic (10) Anxiety Priority: Secondary Status: Chronic (11) Depression Priority: Secondary Status: Chronic (12) GERD (gastroesophageal reflux disease) Priority: Secondary Status: Chronic (13) COPD (chronic obstructive pulmonary disease) Priority: Secondary Status: Chronic (14) DVT prophylaxis Priority: Primary Status: Acute (15) Hypothyroidism Priority: Secondary Status: Chronic (16) HTN (hypertension) Priority: Secondary Status: Chronic (17) Tobacco use disorder Priority: Primary Status: Resolved (18) Chronic respiratory failure with hypoxia Priority: Secondary Status: Chronic (19) Chronic diastolic CHF (congestive heart failure) Priority: Secondary Status: Chronic (20) Polypharmacy Priority: Secondary Status: Chronic (21) Non-compliance Priority: Secondary Status: Chronic (22) Morbid obesity with BMI of 45.0-49.9, adult Priority: Secondary Status: Chronic - Respiratory Orders Oxygen / L per min (2) Smoking Cessation: Smoking cessation has been advised. For more information, call the [place] Tobacco Quit Line at 6-501-QRGJ-NOW. - Diet/Nutrition Diet/Nutrition Orders: No Added Salt (GOSIA), Renal, Cardiac, No Concentrated Sweets - Activity Activity Orders: Up ad charles, Ambulate, Walker - Services Needed Following services are medically necessary services: Nursing, Home Health Aide, Physical Therapy, Occupational Therapy - Transfer Medications Prescriptions: Cefdinir [Omnicef] 300 mg PO BID #14 capsule Isosorbide MONOnitrate (24 HR) [Imdur] 30 mg PO QAM #30 Walker W Wheels [WHEELED WALKER] 1 each .ROUTE AD #1 each Home Medications: Budesonide/Formoterol 160/4.5 [Symbicort] 2 puff IH BIDR 08/24/15 [History] Gabapentin [Neurontin] 800 mg PO TID 04/21/15 [History] Levothyroxine [Synthroid] 100 mcg PO QAM 04/21/15 [History] Tiotropium [Spiriva] 18 mcg IH QAM 04/21/15 [History] metFORMIN [Glucophage] 1,000 mg PO BID 04/21/15 [History] Amlodipine Besylate 2.5 mg PO DAILY 12/27/15 [History] Atorvastatin Calcium [Lipitor] 40 mg PO DAILY 02/04/16 [History] Buspirone HCl [Buspar] 15 mg PO TID 02/04/16 [History] Montelukast [Singulair] 10 mg PO HS 02/04/16 [History] Oxygen 2 l NS AD PRN 03/17/16 [History] Insulin Glargine [Lantus] 80 unit SQ QAM 03/25/16 [History] Insulin Glargine [Lantus] 90 unit SQ QPM 03/25/16 [History] Albuterol Sulfate [Albuterol Inhaler] 2 puff IH Q4HR PRN 05/01/16 [History] Citalopram Hydrobromide [Citalopram HBr] 40 mg PO DAILY 05/01/16 [History] Ipratropium/Albuterol Neb [Duoneb] 3 ml IH Q6H PRN 05/01/16 [History] Raloxifene [Evista] 60 mg PO DAILY 05/01/16 [History] Aripiprazole [Abilify] 10 mg PO HS tablet 05/03/16 [Rx] Fenofibrate Nanocrystallized [Tricor] 200 mg PO DAILY 06/15/16 [History] Clopidogrel [Plavix] 75 mg PO QAM tablet 06/18/16 [Rx] Buprenorphine [Butrans] 15 mcg TD QWEEK 06/27/16 [History] Baclofen [Lioresal] 10 mg PO BID 08/24/16 [History] Bumetanide 2 mg PO DAILY 11/21/16 [History] Aspirin 81 mg PO DAILY #60 tab.chew 12/06/16 [Rx] Nystatin POWDER [Nystop] 1 appl TP BID 12/14/16 [History] Gabapentin [Neurontin] 1,600 mg PO HS 12/31/16 [History] Isosorbide MONOnitrate (24 HR) [Imdur] 90 mg PO QAM 12/31/16 [History] metOLazone [Zaroxolyn] 5 mg PO Q48H 12/31/16 [History] clonazePAM [Klonopin] 1 mg PO TID #90 tablet 01/28/17 [Rx] Insulin ASPART [NovoLOG] 2 - 10 unit SQ TIDWM 03/07/17 [History] Potassium Chloride 20 meq PO BID 03/07/17 [History] Tizanidine HCl [Zanaflex] 4 mg PO TID PRN 03/07/17 [History] Tramadol HCl [Tramadol HCl ER] 300 mg PO DAILY 03/07/17 [History] Cefdinir [Omnicef] 300 mg PO BID #14 capsule 03/10/17 [Rx] Isosorbide MONOnitrate (24 HR) [Imdur] 30 mg PO QAM #30 03/10/17 [Rx] Metoprolol [Lopressor] 25 mg PO BID tab 03/10/17 [Rx] OxyCODONE/APAP 5/325 [Percocet 5/325 MG] 1 each PO Q4H PRN tab 03/10/17 [Rx] Walker W Wheels [WHEELED WALKER] 1 each .ROUTE AD #1 each 03/10/17 [Rx] Allergies/Adverse Reactions: Allergies No Known Allergies Allergy (Verified 03/06/17 14:31) Certification: Further, I certify that my clinical findings support that this patient is homebound (i.e. absences from home require considerable and taxing effort and are for medical reasons or tenriism services or infrequently or short duration when for other reasons) because: Homebound Reason: Patient requires assistance of a person or device to safely leave home, Severity of cardiac or pulmonary status limits activity tolerance Attestation: My signature below is to certify that this patient is under my care and that I, or nurse practitioner, or a physician's speech language pathology assistant working with me, has a face-to -face encounter with this patient.
[2017-03-10] MEDS: Budesonide/Formoterol 160/4.5 MDI IH SCH (11:08)
[2017-03-11 08:04] LABS: CK Total (Ck Isoenzymes) 54 U/L (20-180); CK-BB (CK isoenzymes) 0 % (0-0)
[2017-03-11 08:11] LABS: CK Total (Ck Isoenzymes) 57 U/L (20-180); CK-BB (CK isoenzymes) 0 % (0-0)
== END 2017-03-10 11:25 | disposition home or self-care (01) ==
LOC: EMEROO 14:23 → 3BNU 14:23 → SUATTDRO 17:12 → 3BNU 17:40
PROVIDERS: ADMIT Family Medicine; ATTEND Nurse Practitioner Family

== ENCOUNTER 2017-03-23 11:03 | Inpatient (IN) ==
[2017-03-23] MEDS ORDERED: 0.9 % Sodium Chloride 1,000 ML IVC ONE (11:32)
[2017-03-23 12:01] LABS: Basophils # 0.1 K/mcL (0.0-0.2); Basophils % 0.6 %; Eosinophils # 0.3 K/mcL (0.0-0.6); Eosinophils % 2.7 %; Hematocrit 34.2 % (35.3-44.9); Hemoglobin 10.4 g/dL (11.5-15.4); Immature Granulocytes % 1.8 % (0-4); Lymphocytes % 27.6 %; Mean Corpuscular HGB Conc 30.4 g/dL (31.6-35.5); Mean Corpuscular Hemoglobin 25.2 pg (28.0-33.3); Monocytes # 0.6 K/mcL (0.0-1.3); Monocytes % 5.3 %; Neutrophils # 6.7 K/mcL (1.6-8.9); Nucleated Red Blood Cells 0.6 /100 WBC (0); Platelet Count 249 K/mcL (140-400); Red Blood Count 4.12 M/mcL (3.82-4.97); Red Cell Distribution Width 14.6 % (11.5-14.5)
--- NOTE | 2017-03-23 12:02 | Emergency Department Note ---
Disposition Clinical Impression: Hypomagnesemia, Hypokalemia Cellulitis Qualifiers: Site of cellulitis: extremity Site of cellulitis of extremity: lower extremity Laterality: unspecified laterality Qualified Code(s): L03.119 - Cellulitis of unspecified part of limb Diarrhea Qualifiers: Diarrhea type: unspecified type Qualified Code(s): R19.7 - Diarrhea, unspecified Disposition: Admitted As Inpatient Referrals: NO,PCP [Non-Partnered Physician] - Forms: ED Satisfaction Letter Abdominal Pain HPI - General Chief Complaint: ED Nausea/Vomiting/Diarrhea Stated Complaint: Diarrhea,weakness Time Seen by Provider: 03/23/17 11:31 Source: patient Mode of arrival: ambulatory Limitations: no limitations Nursing Notes Reviewed: Yes Vital Signs Reviewed: Yes - History of Present Illness Pt Subjective Complaint: abdominal pain Onset (ago): day(s) (5) Consistency: constant Location: diffuse Pain Scale: 7 Quality: cramping, aching Improves with: nothing Worsens with: nothing Associated symptoms: Reports: diarrhea Treatments prior to arrival: none - Related Data Home Medications Medication Instructions Recorded Confirmed Budesonide/Formoterol 160/4.5 2 puff IH BIDR 04/21/15 03/07/17 [Symbicort] Gabapentin [Neurontin] 800 mg PO TID 04/21/15 03/07/17 Levothyroxine [Synthroid] 100 mcg PO QAM 04/21/15 03/07/17 Tiotropium [Spiriva] 18 mcg IH QAM 04/21/15 03/07/17 metFORMIN [Glucophage] 1,000 mg PO BID 04/21/15 03/07/17 Amlodipine Besylate 2.5 mg PO DAILY 12/27/15 03/07/17 Atorvastatin Calcium [Lipitor] 40 mg PO DAILY 02/04/16 03/07/17 Buspirone HCl [Buspar] 15 mg PO TID 02/04/16 03/07/17 Montelukast [Singulair] 10 mg PO HS 02/04/16 03/07/17 Oxygen 2 l NS AD PRN 03/17/16 03/07/17 Insulin Glargine [Lantus] 80 unit SQ QAM 03/25/16 03/07/17 Insulin Glargine [Lantus] 90 unit SQ QPM 03/25/16 03/07/17 Albuterol Sulfate [Albuterol 2 puff IH Q4HR PRN 05/01/16 03/07/17 Inhaler] Citalopram Hydrobromide 40 mg PO DAILY 05/01/16 03/07/17 [Citalopram HBr] Ipratropium/Albuterol Neb [Duoneb] 3 ml IH Q6H PRN 05/01/16 03/07/17 Raloxifene [Evista] 60 mg PO DAILY 05/01/16 03/07/17 Fenofibrate Nanocrystallized 200 mg PO DAILY 06/15/16 03/07/17 [Tricor] Buprenorphine [Butrans] 15 mcg TD QWEEK 06/27/16 03/07/17 Baclofen [Lioresal] 10 mg PO BID 08/24/16 03/07/17 Bumetanide 2 mg PO DAILY 11/21/16 03/07/17 Nystatin POWDER [Nystop] 1 appl TP BID 12/14/16 03/07/17 Gabapentin [Neurontin] 1,600 mg PO HS 12/31/16 03/07/17 Isosorbide MONOnitrate (24 HR) 90 mg PO QAM 12/31/16 03/07/17 [Imdur] metOLazone [Zaroxolyn] 5 mg PO Q48H 12/31/16 03/07/17 Insulin ASPART [NovoLOG] 2 - 10 unit SQ TIDWM 03/07/17 03/07/17 Potassium Chloride 20 meq PO BID 03/07/17 03/07/17 Tizanidine HCl [Zanaflex] 4 mg PO TID PRN 03/07/17 03/07/17 Tramadol HCl [Tramadol HCl ER] 300 mg PO DAILY 03/07/17 03/07/17 Previous Rx's Medication Instructions Recorded Aripiprazole [Abilify] 10 mg PO HS tablet 05/03/16 Clopidogrel [Plavix] 75 mg PO QAM tablet 06/18/16 Aspirin 81 mg PO DAILY #60 tab.chew 12/06/16 clonazePAM [Klonopin] 1 mg PO TID #90 tablet 01/28/17 Cefdinir [Omnicef] 300 mg PO BID #14 capsule 03/10/17 Isosorbide MONOnitrate (24 HR) 30 mg PO QAM #30 03/10/17 [Imdur] Metoprolol [Lopressor] 25 mg PO BID tab 03/10/17 OxyCODONE/APAP 5/325 [Percocet 1 each PO Q4H PRN tab 03/10/17 5/325 MG] Walker W Wheels [WHEELED WALKER] 1 each .ROUTE AD #1 each 03/10/17 Allergies Allergy/AdvReac Type Severity Reaction Status Date / Time No Known Allergies Allergy Verified 03/23/17 11:28 All systems ED: reviewed and negative except as stated. 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 Psychiatric history: Reports: anxiety, bipolar, depression, panic disorder - Social History Smoking status: Former smoker Alcohol use: Reports: none Drug use: Reports: none Physical Exam - General Limitations: no limitations General appearance: alert - Eye Eye exam: Present: normal appearance, PERRL, EOMI - ENT ENT exam: normal exam, normal oropharynx, mucous membranes moist - Neck Neck exam: Present: normal inspection, full ROM, trachea midline - Chest Chest inspection: Present: normal inspection, symmetric chest wall rise - Respiratory Respiratory exam: Present: normal lung sounds bilaterally - Cardiovascular Cardiovascular exam: Present: regular rate, normal rhythm, normal heart sounds - Abdominal Exam Abdominal exam: Present: soft, normal bowel sounds. Absent: guarding, rebound Abdominal tenderness: Present: diffuse, moderate - Expanded Lower Extremity Exam Lower leg exam: Present: other (Lateral lower extremity erythema warmth edema and pain) - Back Exam Back exam: Present: normal inspection, full ROM. Absent: tenderness - Neurological Exam Neurological exam: Present: alert, oriented X3 - Psychiatric Psychiatric exam: Present: normal affect, normal mood Course Vital Signs Temperature 98 F 03/23/17 11:28 Pulse Rate 94 03/23/17 11:28 Respiratory Rate 20 03/23/17 11:28 Blood Pressure 137/83 03/23/17 11:28 O2 Sat by Pulse Oximetry 91 03/23/17 11:28 Temperature 98 F 03/23/17 11:28 Pulse Rate 78 03/23/17 12:30 Respiratory Rate 16 03/23/17 12:30 Blood Pressure 110/55 03/23/17 12:30 O2 Sat by Pulse Oximetry 91 03/23/17 12:30 Oxygen Delivery Oxygen Delivery Room Air Abdominal Pain - Medical Records Medical records reviewed: Yes I reviewed the patient's medical records. - Lab Data Lab results reviewed: Yes I reviewed the patient's lab results. Result diagrams: 03/23/17 11:53 03/23/17 11:53 Lab Results 03/23/17 03/23/17 03/23/17 Range/Units 11:53 11:53 11:53 WBC 10.8 (4.3-11.1) K/mcL RBC 4.12 (3.82-4.97) M/mcL Hgb 10.4 L (11.5-15.4) g/dL Hct 34.2 L (35.3-44.9) % MCV 83.0 (83.0-100.0) fL MCH 25.2 L (28.0-33.3) pg MCHC 30.4 L (31.6-35.5) g/dL RDW 14.6 H (11.5-14.5) % Plt Count 249 (140-400) K/mcL MPV 11.0 (9.4-12.4) fL Immature Gran % 1.8 (0-4) % Seg Neutrophils % 62.0 % Lymphocytes % 27.6 % Monocytes % 5.3 % Eosinophils % 2.7 % Basophils % 0.6 % Neutrophils # 6.7 (1.6-8.9) K/mcL Lymphocytes # 3.0 (0.6-4.6) K/mcL Monocytes # 0.6 (0.0-1.3) K/mcL Eosinophils # 0.3 (0.0-0.6) K/mcL Basophils # 0.1 (0.0-0.2) K/mcL Nucleated RBCs/100 WBC 0.6 H (0) /100 WBC PT 9.9 (9.4-12.1) Seconds INR 0.9 APTT 25.9 L (26.0-36.0) Seconds Sodium 138 (136-145) mEq/L Potassium 3.1 L (3.5-4.5) mEq/L Chloride 98 (98-109) mEq/L Carbon Dioxide 31 H (19-29) mEq/L BUN 19 (7-20) mg/dL Creatinine 0.72 (0.57-1.11) mg/dL Est GFR ( Amer) > 60 (> 60) Est GFR (Non-Af Amer) > 60 (> 60) BUN/Creatinine Ratio 26 (6-26) Glucose 212 H (70-99) mg/dL Calculated Osmolality 295 (280-300) Lactic Acid (0.5-2.2) mmol/L Calcium 9.7 (8.6-10.8) mg/dL Magnesium 1.3 L (1.6-2.6) mg/dL Total Bilirubin < 0.3 (0.2-1.2) mg/dL Direct Bilirubin 0.1 (0.0-0.5) mg/dL Indirect Bilirubin 0.2 (0.0-1.2) mg/dL AST 16 (5-34) Units/L ALT 17 (0-55) Units/L Alkaline Phosphatase 91 (38-126) Units/L Serum Total Protein 6.8 (6.0-8.3) g/dL Albumin 2.9 L (3.5-5.0) g/dL Globulin 3.9 H (2.4-3.5) g/dL Albumin/Globulin Ratio 0.7 L (1.1-2.2) Amylase 26 (25-125) Units/L Lipase 16 (8-78) Units/L 07/26/17 Range/Units 11:53 WBC (4.3-11.1) K/mcL RBC (3.82-4.97) M/mcL Hgb (11.5-15.4) g/dL Hct (35.3-44.9) % MCV (83.0-100.0) fL MCH (28.0-33.3) pg MCHC (31.6-35.5) g/dL RDW (11.5-14.5) % Plt Count (140-400) K/mcL MPV (9.4-12.4) fL Immature Gran % (0-4) % Seg Neutrophils % % Lymphocytes % % Monocytes % % Eosinophils % % Basophils % % Neutrophils # (1.6-8.9) K/mcL Lymphocytes # (0.6-4.6) K/mcL Monocytes # (0.0-1.3) K/mcL Eosinophils # (0.0-0.6) K/mcL Basophils # (0.0-0.2) K/mcL Nucleated RBCs/100 WBC (0) /100 WBC PT (9.4-12.1) Seconds INR APTT (26.0-36.0) Seconds Sodium (136-145) mEq/L Potassium (3.5-4.5) mEq/L Chloride (98-109) mEq/L Carbon Dioxide (19-29) mEq/L BUN (7-20) mg/dL Creatinine (0.57-1.11) mg/dL Est GFR ( Amer) (> 60) Est GFR (Non-Af Amer) (> 60) BUN/Creatinine Ratio (6-26) Glucose (70-99) mg/dL Calculated Osmolality (280-300) Lactic Acid 3.7 H (0.5-2.2) mmol/L Calcium (8.6-10.8) mg/dL Magnesium (1.6-2.6) mg/dL Total Bilirubin (0.2-1.2) mg/dL Direct Bilirubin (0.0-0.5) mg/dL Indirect Bilirubin (0.0-1.2) mg/dL AST (5-34) Units/L ALT (0-55) Units/L Alkaline Phosphatase (38-126) Units/L Serum Total Protein (6.0-8.3) g/dL Albumin (3.5-5.0) g/dL Globulin (2.4-3.5) g/dL Albumin/Globulin Ratio (1.1-2.2) Amylase (25-125) Units/L Lipase (8-78) Units/L - Radiology Data Radiology results reviewed: Yes I reviewed the patient's radiology results.
[2017-03-23 12:06] LABS: INR 0.9; Prothrombin Time 9.9 Seconds (9.4-12.1)
[2017-03-23 12:09] LABS: Activated Partial Thrombo Time 25.9 Seconds (26.0-36.0)
[2017-03-23 12:23] LABS: Alanine Aminotransferase 17 Units/L (0-55); Albumin 2.9 g/dL (3.5-5.0); Albumin/Globulin Ratio 0.7 (1.1-2.2); Alkaline Phosphatase 91 Units/L (38-126); Amylase 26 Units/L (25-125); Aspartate Amino Transferase 16 Units/L (5-34); BUN/Creatinine Ratio 26 (6-26); Bilirubin,Direct 0.1 mg/dL (0.0-0.5); Bilirubin,Indirect 0.2 mg/dL (0.0-1.2); Blood Urea Nitrogen 19 mg/dL (7-20); Calcium 9.7 mg/dL (8.6-10.8); Carbon Dioxide 31 mEq/L (19-29); Chloride 98 mEq/L (98-109); Globulin 3.9 g/dL (2.4-3.5); Glucose 212 mg/dL (70-99); Lipase 16 Units/L (8-78); Osmolality,Calculated 295 (280-300); Potassium 3.1 mEq/L (3.5-4.5); Sodium 138 mEq/L (136-145); Total Protein 6.8 g/dL (6.0-8.3); eGFR For African Americans > 60 (> 60); eGFR For Non-African Americans > 60 (> 60)
[2017-03-23 12:25] LABS: Bilirubin,Total < 0.3 mg/dL (0.2-1.2)
[2017-03-23] MEDS ORDERED: Ondansetron 4 MG/2 ML VIAL IVP ONE (12:42)
[2017-03-23] MEDS ORDERED: *HR* HYDROmorphone (PF) 1 MG/ML SYRINGE IVP ONE (12:42)
[2017-03-23 12:44] LABS: Magnesium 1.3 mg/dL (1.6-2.6)
[2017-03-23] MEDS ORDERED: Potassium Effervescent 25 MEQ TABLET.EFF PO ONE (13:38)
[2017-03-23] MEDS ORDERED: Vancomycin 1,750 MG in D5% in Water 500 ML IVPB ONE (13:40)
[2017-03-23] MEDS ORDERED: Ipratropium/Albuterol Neb 3 ML IH PRN (14:22)
[2017-03-23] MEDS ORDERED: Naloxone 0.4 MG/ML INJ IVP PRN (14:28)
[2017-03-23] MEDS ORDERED: Acetaminophen 325 MG TABLET PO PRN (14:28)
[2017-03-23] MEDS ORDERED: *HR* Dextrose 50 % in Water (Syg) 50 ML SYRINGE IVP PRN (14:28)
[2017-03-23] MEDS ORDERED: D5% in Water 1,000 ML IVC PRN (14:28)
[2017-03-23] MEDS ORDERED: Dextrose Gel 15 GM PO PRN ×2 (14:28)
--- NOTE | 2017-03-23 14:38 | Internal Med History&Physical ---
Date of Encounter: 03/23/17 Time of Encounter: 14:35 Assessment and Plan (1) Bilateral lower leg cellulitis Current visit: No Status: Acute Acute bilateral lower extremity cellulitis/recurrent Continue IV vancomycin, send blood cultures Omeprazole for GI prophylaxis and subcutaneous heparin for deep prophylaxis. The patient will be admitted as inpatient, expected to stay more than 2 midnights. Full code. Time spent on this admission 40 minutes. High risk due to recurrent cellulitis (2) Diarrhea Current visit: Yes Status: Acute Dehydration secondary to Possible acute gastroenteritis Order GI panel, may switch antibiotic therapy depending on findings Continue IV fluids Qualifiers: Diarrhea type: infectious Qualified Code(s): A09 - Infectious gastroenteritis and colitis, unspecified (3) Hypokalemia Current visit: Yes Status: Acute Replete as needed (4) Hypomagnesemia Current visit: Yes Status: Acute Replete as needed (5) COPD (chronic obstructive pulmonary disease) Current visit: No Status: Acute Stable no exacerbation Qualifiers: COPD type: unspecified COPD Qualified Code(s): J44.9 - Chronic obstructive pulmonary disease, unspecified (6) Type 2 diabetes mellitus Current visit: No Status: Acute Hold Lantus Continue high dose insulin sliding scale, hold metformin 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 mellitus complication status: without complication 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 Lynch is a 61 year old female with a past medical history of recurrent admissions for cellulitis in both of her legs, diabetes type 2 not insulin- dependent, diastolic CHF, neuropathy. Recently discharged from the hospital on 03/10/2017 where she was sent on Ceftin year and prior to that she was given Bactrim and vancomycin for lower extremity cellulitis. The patient says that since Tuesday she has been complaining of nausea and vomiting and watery diarrhea, she saw a small amount of blood earlier today. Her legs have become more swollen and red worse in the past week. Both are erythematous and tender to touch. She had a couple scratches that appear erythematous caused by her dog. Potassium was 3.1 glucose 212 lactic acid 3.7 magnesium 1.[address] scan of the abdomen shows no acute findings except for hepatic steatosis. Complaining of chills, denies any sick contacts Past Med Surg Social Fam HX - Past Medical History Medical history: arthritis, CHF (Diastolic CHF), COPD (Not oxygen dependent), coronary artery disease (History of stents), diabetes (Insulin-dependent), GERD , hyperlipidemia, hypertension, osteoporosis, thyroid disease, TIA, venous stasis, other (Neuropathy, depression, osteoporosis, TIAs, bipolar disorder, anxiety, chronic back pain and recurrent UTIs with Escherichia coli) Psychiatric history: anxiety, bipolar, depression, panic disorder - Past Surgical History Surgical History: angioplasty/stent, , cholecystectomy, hysterectomy, other (Cardiac catheterization) - Social History Smoking Status: Former smoker Smokeless Tobacco Status: No Alcohol use: none Drug use: none - Family History Father Adopted: No Family Member Ethnicity: Non- Living Status: Hx Family Cardiac Disorders: Yes Mother Adopted: No Family Member Ethnicity: Non- Living Status: Hx Family Cardiac Disorders: Yes (VT) Hx Family Respiratory Disorders: No Hx Family Cancer: No Hx Family GI Disorders: No Hx Family Endocrine Disorder: Yes (DM) Hx Family Neuromuscular Disorders: No Hx Family Neurologic Disorders: Yes (St[place]kes) Hx Family HEENT Disorders: No Hx Family Autoimmune Disorders: No - Additional Family History Additional family history: Father with cardiomyopathy AICD and CAD, mother with diabetes Internal Medicine - H&P: Meds Budesonide/Formoterol 160/4.5 [Symbicort] 2 puff IH BIDR 04/21/15 [History] Gabapentin [Neurontin] 800 mg PO TID 04/21/15 [History] Levothyroxine [Synthroid] 100 mcg PO QAM 04/21/15 [History] Tiotropium [Spiriva] 18 mcg IH QAM 04/21/15 [History] metFORMIN [Glucophage] 1,000 mg PO BID 04/21/15 [History] Amlodipine Besylate 2.5 mg PO DAILY 12/27/15 [History] Atorvastatin Calcium [Lipitor] 40 mg PO DAILY 02/04/16 [History] Buspirone HCl [Buspar] 15 mg PO TID 02/04/16 [History] Montelukast [Singulair] 10 mg PO HS 02/04/16 [History] Oxygen 2 l NS AD PRN 03/17/16 [History] Insulin Glargine [Lantus] 80 unit SQ QAM 03/25/16 [History] Insulin Glargine [Lantus] 90 unit SQ QPM 03/25/16 [History] Albuterol Sulfate [Albuterol Inhaler] 2 puff IH Q4HR PRN 05/01/16 [History] Citalopram Hydrobromide [Citalopram HBr] 40 mg PO DAILY 05/01/16 [History] Ipratropium/Albuterol Neb [Duoneb] 3 ml IH Q6H PRN 05/01/16 [History] Raloxifene [Evista] 60 mg PO DAILY 05/01/16 [History] Aripiprazole [Abilify] 10 mg PO HS tablet 05/03/16 [Rx] Fenofibrate Nanocrystallized [Tricor] 200 mg PO DAILY 06/15/16 [History] Clopidogrel [Plavix] 75 mg PO QAM tablet 06/18/16 [Rx] Buprenorphine [Butrans] 15 mcg TD QWEEK 06/27/16 [History] Baclofen [Lioresal] 10 mg PO BID 08/24/16 [History] Bumetanide 2 mg PO DAILY 11/21/16 [History] Aspirin 81 mg PO DAILY #60 tab.chew 12/06/16 [Rx] Nystatin POWDER [Nystop] 1 appl TP BID 12/14/16 [History] Gabapentin [Neurontin] 1,600 mg PO HS 12/31/16 [History] Isosorbide MONOnitrate (24 HR) [Imdur] 90 mg PO QAM 12/31/16 [History] metOLazone [Zaroxolyn] 5 mg PO Q48H 12/31/16 [History] clonazePAM [Klonopin] 1 mg PO TID #90 tablet 01/28/17 [Rx] Insulin ASPART [NovoLOG] 2 - 10 unit SQ TIDWM 03/07/17 [History] Potassium Chloride 20 meq PO BID 03/07/17 [History] Tizanidine HCl [Zanaflex] 4 mg PO TID PRN 03/07/17 [History] Tramadol HCl [Tramadol HCl ER] 300 mg PO DAILY 03/07/17 [History] Metoprolol [Lopressor] 25 mg PO BID tab 03/10/17 [Rx] OxyCODONE/APAP 5/325 [Percocet 5/325 MG] 1 tab PO Q4H PRN 03/23/17 [History] Allergies No Known Allergies Allergy (Verified 03/23/17 11:28) All Systems PM: A 10-system review of systems was performed and is negative for pertinent findings except as documented above in the HPI. Review of systems: No chest pain, shortness of breath, no dysuria, persistent diarrhea and nausea. Other systems out of the 10 review were negative - Constitutional Vitals: Temp Pulse Resp BP Pulse Ox 98 F 81 18 125/69 96 03/23/17 11:28 03/23/17 14:00 03/23/17 14:00 03/23/17 14:00 03/23/17 14:00 General appearance: Present: A&O X 3 - Head Head exam: Present: atraumatic, normocephalic - Eye Eye exam: Present: PERRL, conjuntiva pink, sclera anicteric Pupils: Present: PERRL - Neck Neck exam general surgery: Present: supple, trachea midline. Absent: lymphadenopathy - Respiratory Respiratory exam: Present: CTAB. Absent: accessory muscle use, rales, rhonchi, wheezes - Cardiovascular Cardiovascular exam: Present: RRR, +S1, +S2. Absent: diastolic murmur, gallop, rubs, systolic murmur - GI/Abdominal GI/Abdominal exam: Present: distended, normal bowel sounds, soft, tenderness ( Diffuse mild abdominal tenderness, no rebound), no peritoneal signs - Extremities Exam Extremities exam: Present: warm, radial pulses palpable and symetrical. Absent : calf tenderness, cyanotic, pedal edema - Neurological Exam Neurological exam: Present: CN II-XII intact, oriented X3, no focal deficits. Absent: pronater drift, facial droop, speech deficit - Skin Skin exam: Present: dry, excoriation (Bilateral lower extremity edema/pitting edema +2, diffuse erythema and tenderness below both knees with several excoriations). Absent: intact Internal Med - H&P Results - Labs CBC & Chem 7: 03/23/17 11:53 03/23/17 11:53 Labs: Short CBC 03/23/17 Range/Units 11:53 WBC 10.8 (4.3-11.1) K/mcL Hgb 10.4 L (11.5-15.4) g/dL Hct 34.2 L (35.3-44.9) % Plt Count 249 (140-400) K/mcL Neutrophils # 6.7 (1.6-8.9) K/mcL BMP 03/23/17 11:53 Sodium 138 Potassium 3.1 L Chloride 98 Carbon Dioxide 31 H BUN 19 Creatinine 0.72 Glucose 212 H Calcium 9.7 Liver Function 03/23/17 Range/Units 11:53 Total Bilirubin < 0.3 (0.2-1.2) mg/dL Direct Bilirubin 0.1 (0.0-0.5) mg/dL AST 16 (5-34) Units/L ALT 17 (0-55) Units/L Alkaline Phosphatase 91 (38-126) Units/L Albumin 2.9 L (3.5-5.0) g/dL - Impressions ITS Impressions Abdomen/Pelvis CT 03/23/17 12:12 IMPRESSION: 1. No acute findings within the abdomen or pelvis. 2. Normal appendix. 3. Hepatic steatosis. D/ : / 03/23/2017 13:24:17 Anup Coon MD / jory Interpreting Provider: Anup Coon MD
[2017-03-23 17:53] LABS: Bilirubin,Urine Negative (Negative); Blood,Urine Negative (Negative); Clarity,Urine Cloudy (Clear); Color,Urine Yellow (Yellow); Glucose,Urine (UA) Normal (Normal); Ketones,Urine Negative (Negative); Leukocyte Esterase,Urine Large (Negative); Nitrite,Urine Negative (Negative); Protein,Urine Negative (Neg-Trace); Specific Gravity,Urine 1.013 (1.010-1.025); Urobilinogen,Urine Normal (Normal)
[2017-03-23 17:55] LABS: Bacteria,Urine None Seen per hpf (None-Few); Hyaline Casts,Urine None Seen per lpf (None-Few); RBC,Urine 0-3 per hpf (0-3)
[2017-03-23 18:03] LABS: Squamous Epithelial Cell,Urine Few per lpf (None-Few)
[2017-03-23 18:04] LABS: WBC,Urine 30-50 per hpf (0-3)
[2017-03-23 18:05] LABS: Yeast,Urine Many per hpf (None Seen)
[2017-03-23] MEDS: 0.9 % Sodium Chloride 1,000 ML IVC SCH (18:05)
[2017-03-23] MEDS: Gabapentin 400 MG CAPSULE PO SCH ×2 (18:06→23:25)
[2017-03-23] MEDS: clonazePAM 1 MG TABLET PO SCH ×2 (18:06→23:25)
[2017-03-23] MEDS: Insulin LISPRO 300 UNITS/3 ML VIAL SQ SCH ×2 (18:06→20:34)
[2017-03-23] MEDS: *HR* OxyCODONE Immed Rel 5 MG TABLET PO PRN (18:06)
[2017-03-23] MEDS: *HR* Heparin 5,000 UNIT/ML VIAL SQ SCH ×2 (18:27→23:02)
[2017-03-23] MEDS: Magnesium Oxide 400 MG TABLET PO SCH ×2 (18:30→22:10)
[2017-03-23] MEDS: ARIPiprazole 10 MG TABLET PO SCH (20:41)
[2017-03-23] MEDS: Baclofen 10 MG TABLET PO SCH (20:47)
[2017-03-23] MEDS: Budesonide/Formoterol 160/4.5 MDI IH SCH (23:14)
[2017-03-24] MEDS ORDERED: Vancomycin 1,500 MG in D5% in Water 250 ML IVPB SCH (02:00)
[2017-03-24] MEDS: *HR* OxyCODONE Immed Rel 5 MG TABLET PO PRN ×2 (02:59→22:03)
[2017-03-24 04:28] LABS: Hemoglobin 9.9 g/dL (11.5-15.4); Mean Corpuscular Hemoglobin 25.4 pg (28.0-33.3); Mean Corpuscular Volume 84.6 fL (83.0-100.0); Mean Platelet Volume 11.2 fL (9.4-12.4); Platelet Count 223 K/mcL (140-400); Red Cell Distribution Width 14.7 % (11.5-14.5)
[2017-03-24 04:47] LABS: BUN/Creatinine Ratio 19 (6-26); Blood Urea Nitrogen 13 mg/dL (7-20); Calcium 8.7 mg/dL (8.6-10.8); Carbon Dioxide 33 mEq/L (19-29); Chloride 102 mEq/L (98-109); Glucose 133 mg/dL (70-99); Magnesium 1.8 mg/dL (1.6-2.6); Osmolality,Calculated 294 (280-300); Potassium 3.2 mEq/L (3.5-4.5); Sodium 141 mEq/L (136-145); eGFR For African Americans > 60 (> 60); eGFR For Non-African Americans > 60 (> 60)
[2017-03-24] MEDS: *HR* Heparin 5,000 UNIT/ML VIAL SQ SCH ×3 (05:34→22:02)
[2017-03-24] MEDS: 0.9 % Sodium Chloride 1,000 ML IVC SCH ×2 (05:34→17:01)
[2017-03-24] MEDS: Baclofen 10 MG TABLET PO SCH ×2 (08:32→22:04)
[2017-03-24] MEDS: clonazePAM 1 MG TABLET PO SCH ×3 (08:32→22:02)
[2017-03-24] MEDS: Potassium Chloride Elixir 20 MEQ/15 ML UDC PO SCH ×2 (08:32→11:49)
[2017-03-24] MEDS: Isosorbide MONOnitrate (24 HR) 30 MG TAB.ER.24H PO SCH (08:33)
[2017-03-24] MEDS: Aspirin 81 MG TAB.CHEW PO SCH (08:33)
[2017-03-24] MEDS: Gabapentin 400 MG CAPSULE PO SCH ×3 (08:33→22:02)
[2017-03-24] MEDS: amLODIPine 5 MG TABLET PO SCH (08:34)
[2017-03-24] MEDS: Magnesium Oxide 400 MG TABLET PO SCH ×2 (08:36→22:02)
[2017-03-24] MEDS: Insulin LISPRO 300 UNITS/3 ML VIAL SQ SCH ×4 (08:39→22:03)
[2017-03-24] MEDS: *HR* HYDROmorphone (PF) 1 MG/ML SYRINGE IVP PRN ×4 (08:43→23:55)
--- NOTE | 2017-03-24 09:16 | Internal Med Progress Note ---
Date of Encounter: 03/24/17 Time of Encounter: 09:13 - Assessment and plan (1) Cellulitis Current Visit: Yes Status: Acute Assessment and plan: Bilateral anterior leg erythema, acute on chronic. Unclear if this is true cellulitis. Follow-up blood cultures and change antibiotics to IV Unasyn. Monitor clinically. Noted to have mild leukocytosis at 3.7, repeat lactic acid levels. Patient requests placement rehabilitation facility for physical and occupational therapy. Follow-up physical therapy evaluation. Qualifiers: Site of cellulitis: extremity Site of cellulitis of extremity: lower extremity Laterality: unspecified laterality Qualified Code(s): L03.119 - Cellulitis of unspecified part of limb (2) Diarrhea Current Visit: Yes Status: Acute Assessment and plan: Presented with diarrhea, which currently seems resolved. Unable to send stool GI panel as patient does not have any further bowel movements. Continue to monitor. Qualifiers: Diarrhea type: unspecified type Qualified Code(s): R19.7 - Diarrhea, unspecified (3) Diabetes Current Visit: Yes Status: Chronic Assessment and plan: Continue Accu-Chek blood glucose monitoring with sliding scale insulin. Blood sugars noted to be fairly well controlled. Diabetic diet. 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 transplanted heart: [place] heart Associated angina: without angina Qualified Code(s): I25.10 - Atherosclerotic heart disease of [place] coronary artery without angina pectoris (6) Anxiety Current Visit: Yes Status: Chronic (7) Depression Current Visit: Yes Status: Chronic Assessment and plan: Continue home medications, patient is noted to be on multiple psychotropic agents, SSRIs and anxiolytics. Qualifiers: Depression Type: unspecified Qualified Code(s): F32.9 - Major depressive disorder, single episode, unspecified (8) GERD (gastroesophageal reflux disease) Current Visit: Yes Status: Chronic Qualifiers: Esophagitis presence: esophagitis presence not specified Qualified Code(s) : K21.9 - Gastro-esophageal reflux disease without esophagitis (9) COPD (chronic obstructive pulmonary disease) Current Visit: Yes Status: Chronic Assessment and plan: Not noted to be in acute exacerbation. Continue when necessary bronchodilators , supplemental oxygen and inhaled corticosteroids. Continue Singulair and Spiriva. Qualifiers: COPD type: emphysema Emphysema type: unspecified Qualified Code(s): J43.9 - Emphysema, unspecified (10) Hypothyroidism Current Visit: Yes Status: Chronic Assessment and plan: Continue levothyroxine. Qualifiers: Hypothyroidism type: unspecified Qualified Code(s): E03.9 - Hypothyroidism , unspecified (11) CHF (congestive heart failure) Current Visit: Yes Status: Chronic Qualifiers: Congestive heart failure type: diastolic Congestive heart failure chronicity: chronic Qualified Code(s): I50.32 - Chronic diastolic (congestive ) heart failure - Subjective Interval history: Improving diarrhea. No abdominal pain, nausea, vomiting, tolerates oral diet. Reports some leg pain on both sides but improving redness; interested in being placed at rehab; - Constitutional Vitals: Temp Pulse Resp BP Pulse Ox 98.3 F 76 22 117/65 95 03/24/17 03:43 03/24/17 03:43 03/24/17 03:43 03/24/17 03:43 03/24/17 03:43 General appearance: Present: A&O X 3, answers questions appropriately - Respiratory Respiratory exam: Present: CTAB. Absent: accessory muscle use, rales, rhonchi, wheezes - Cardiovascular Cardiovascular exam: Present: RRR, +S1, +S2. Absent: diastolic murmur, gallop, rubs, systolic murmur - GI/Abdominal GI/Abdominal exam: Present: normal bowel sounds, soft (obese), no peritoneal signs. Absent: distended, tenderness - Extremities Exam Extremities exam: Present: full ROM, normal inspection (B/L anterior leg erythema and mild tenderness with few dry scabs), pedal edema (trace), warm, radial pulses palpable and symetrical. Absent: calf tenderness, cyanotic - Neurological Exam Neurological exam: Present: CN II-XII intact, oriented X3, no focal deficits. Absent: pronater drift, facial droop, speech deficit Internal Medicine: Result - Labs CBC & Chem 7: 03/24/17 03:56 03/24/17 03:56 Labs: Short CBC 03/24/17 Range/Units 03:56 WBC 8.1 (4.3-11.1) K/mcL Hgb 9.9 L (11.5-15.4) g/dL Hct 33.0 L (35.3-44.9) % Plt Count 223 (140-400) K/mcL BMP 03/24/17 03:56 Sodium 141 Potassium 3.2 L Chloride 102 Carbon Dioxide 33 H BUN 13 Creatinine 0.67 Glucose 133 H Calcium 8.7 Urine 03/23/17 Range/Units 17:45 Urine Color Yellow (Yellow) Urine Clarity Cloudy A (Clear) Urine pH 6.0 (5.0-8.0) pH Units Ur Specific [place] 1.013 (1.010-1.025) Urine Protein Negative (Neg-Trace) mg/dL Urine Glucose (UA) Normal (Normal) mg/dL - ABG Interpretation ABG results: PT/INR, D-dimer PT 9.9 Seconds (9.4-12.1) 03/23/17 11:53 Consult Discharge Plan - Plan Referrals: Corey Waddell DO [Primary Care Provider] - 03/29/17 4:00 pm
[2017-03-24] MEDS: Budesonide/Formoterol 160/4.5 MDI IH SCH ×2 (11:13→20:11)
[2017-03-24] MEDS: Ampicillin/Sulbactam 3,000 MG in 0.9 % Sodium Chloride Mini Bag 100 ML IVPB SCH ×3 (11:49→22:03)
[2017-03-24] MEDS: ARIPiprazole 10 MG TABLET PO SCH (22:02)
[2017-03-24] MEDS: Ondansetron 4 MG/2 ML VIAL IVP PRN (23:49)
[2017-03-25] MEDS: *HR* OxyCODONE Immed Rel 5 MG TABLET PO PRN ×2 (04:26→23:08)
[2017-03-25] MEDS: Ampicillin/Sulbactam 3,000 MG in 0.9 % Sodium Chloride Mini Bag 100 ML IVPB SCH ×4 (04:27→21:01)
[2017-03-25] MEDS: 0.9 % Sodium Chloride 1,000 ML IVC SCH (04:27)
[2017-03-25] MEDS: Ondansetron 4 MG/2 ML VIAL IVP PRN ×2 (06:04→10:28)
[2017-03-25] MEDS: *HR* Heparin 5,000 UNIT/ML VIAL SQ SCH ×3 (06:04→21:00)
[2017-03-25] MEDS: *HR* HYDROmorphone (PF) 1 MG/ML SYRINGE IVP PRN ×4 (06:05→20:59)
[2017-03-25 07:31] LABS: Nucleated Red Blood Cells 0.4 /100 WBC (0); Red Cell Distribution Width 14.9 % (11.5-14.5)
[2017-03-25 07:35] LABS: Basophils # 0.1 K/mcL (0.0-0.2); Basophils % 0.6 %; Eosinophils # 0.3 K/mcL (0.0-0.6); Hematocrit 31.5 % (35.3-44.9); Hemoglobin 9.6 g/dL (11.5-15.4); Immature Granulocytes % 1.6 % (0-4); Immature Platelets 6.2 % (1.1-6.1); Lymphocytes # 2.7 K/mcL (0.6-4.6); Lymphocytes % 33.9 %; Mean Corpuscular HGB Conc 30.5 g/dL (31.6-35.5); Mean Corpuscular Hemoglobin 25.7 pg (28.0-33.3); Mean Corpuscular Volume 84.2 fL (83.0-100.0); Mean Platelet Volume 11.3 fL (9.4-12.4); Monocytes # 0.6 K/mcL (0.0-1.3); Monocytes % 7.4 %; Neutrophils # 4.2 K/mcL (1.6-8.9); Platelet Count 206 K/mcL (140-400); Red Blood Count 3.74 M/mcL (3.82-4.97); Segmented Neutrophils % 52.5 %
[2017-03-25 08:09] LABS: BUN/Creatinine Ratio 17 (6-26); Blood Urea Nitrogen 12 mg/dL (7-20); Calcium 8.4 mg/dL (8.6-10.8); Carbon Dioxide 21 mEq/L (19-29); Chloride 104 mEq/L (98-109); Glucose 270 mg/dL (70-99); Osmolality,Calculated 295 (280-300); Potassium 3.9 mEq/L (3.5-4.5); Sodium 138 mEq/L (136-145); eGFR For African Americans > 60 (> 60); eGFR For Non-African Americans > 60 (> 60)
[2017-03-25] MEDS: Baclofen 10 MG TABLET PO SCH ×2 (08:32→20:59)
[2017-03-25] MEDS: Insulin LISPRO 300 UNITS/3 ML VIAL SQ SCH ×4 (08:32→20:58)
[2017-03-25] MEDS: clonazePAM 1 MG TABLET PO SCH ×3 (08:33→20:58)
[2017-03-25] MEDS: Magnesium Oxide 400 MG TABLET PO SCH ×2 (08:33→20:57)
[2017-03-25] MEDS: Aspirin 81 MG TAB.CHEW PO SCH (08:33)
[2017-03-25] MEDS: Gabapentin 400 MG CAPSULE PO SCH ×3 (08:33→20:57)
[2017-03-25] MEDS: Isosorbide MONOnitrate (24 HR) 30 MG TAB.ER.24H PO SCH (08:34)
[2017-03-25] MEDS: amLODIPine 5 MG TABLET PO SCH (08:34)
[2017-03-25] MEDS: Budesonide/Formoterol 160/4.5 MDI IH SCH ×2 (11:06→20:50)
--- NOTE | 2017-03-25 12:30 | Internal Med Progress Note ---
Date of Encounter: 03/25/17 Time of Encounter: 11:15 - Assessment and plan (1) Cellulitis Current Visit: Yes Status: Acute Assessment and plan: Bilateral anterior leg erythema, acute on chronic. Erythema and edema slightly worse since yesterday. Unclear if this is true cellulitis. Continue IV Unasyn , Follow-up blood cultures. Start Bumex with first dose now and hold Norvasc due to worsening edema. Monitor clinically. Lactic acidosis improving. Physical and occupational therapy evaluation noted, recommended placement in extended care facility. rn support services consult. Qualifiers: Site of cellulitis: extremity Site of cellulitis of extremity: lower extremity Laterality: unspecified laterality Qualified Code(s): L03.119 - Cellulitis of unspecified part of limb (2) Diarrhea Current Visit: Yes Status: Resolved Assessment and plan: Noted to be improved currently. Stool sample could not be sent down. Qualifiers: Diarrhea type: unspecified type Qualified Code(s): R19.7 - Diarrhea, unspecified (3) Diabetes Current Visit: Yes Status: Chronic Assessment and plan: Continue Accu-Chek blood glucose monitoring with sliding scale insulin. Blood sugars noted to be elevated. Start basal insulin. Diabetic diet. 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 transplanted heart: [place] heart Associated angina: without angina Qualified Code(s): I25.10 - Atherosclerotic heart disease of [place] coronary artery without angina pectoris (6) Anxiety Current Visit: Yes Status: Chronic (7) Depression Current Visit: Yes Status: Chronic Qualifiers: Depression Type: unspecified Qualified Code(s): F32.9 - Major depressive disorder, single episode, unspecified (8) GERD (gastroesophageal reflux disease) Current Visit: Yes Status: Chronic Qualifiers: Esophagitis presence: esophagitis presence not specified Qualified Code(s) : K21.9 - Gastro-esophageal reflux disease without esophagitis (9) COPD (chronic obstructive pulmonary disease) Current Visit: Yes Status: Chronic Qualifiers: COPD type: emphysema Emphysema type: unspecified Qualified Code(s): J43.9 - Emphysema, unspecified (10) Hypothyroidism Current Visit: Yes Status: Chronic Assessment and plan: Continue levothyroxine. Qualifiers: Hypothyroidism type: unspecified Qualified Code(s): E03.9 - Hypothyroidism , unspecified (11) CHF (congestive heart failure) Current Visit: Yes Status: Chronic Assessment and plan: Continue beta randy and diuretics and nitrates. Hold calcium channel randy due to pedal edema. Patient explained the importance of diuretics and beta randy given her underlying CHF and peripheral edema, she verbalized understanding. Qualifiers: Congestive heart failure type: diastolic Congestive heart failure chronicity: chronic Qualified Code(s): I50.32 - Chronic diastolic (congestive ) heart failure - Subjective Interval history: Reports worsening pain in her legs; no fever, chills; discussed about her BP med as she has been refusing to take her diuretics and beta randy; - Constitutional Vitals: Temp Pulse Resp BP Pulse Ox 98.0 F 80 18 115/75 93 03/25/17 10:59 03/25/17 10:59 03/25/17 10:59 03/25/17 10:59 03/25/17 10:59 General appearance: Present: A&O X 3, morbidly obese, answers questions appropriately - Respiratory Respiratory exam: Present: CTAB. Absent: accessory muscle use, rales, rhonchi, wheezes - Cardiovascular Cardiovascular exam: Present: RRR, +S1, +S2, tachycardia. Absent: diastolic murmur, gallop, rubs, systolic murmur - Extremities Exam Extremities exam: Present: full ROM, pedal edema, warm, radial pulses palpable and symetrical. Absent: calf tenderness, cyanotic Additional comments: B/L anterior legs with dusky erythema and edema, slightly worse than yesterday Internal Medicine: Result - Labs CBC & Chem 7: 03/25/17 07:08 03/25/17 07:08 Labs: Short CBC 03/25/17 Range/Units 07:08 WBC 7.9 (4.3-11.1) K/mcL Hgb 9.6 L (11.5-15.4) g/dL Hct 31.5 L (35.3-44.9) % Plt Count 206 (140-400) K/mcL Neutrophils # 4.2 (1.6-8.9) K/mcL BMP 03/25/17 07:08 Sodium 138 Potassium 3.9 Chloride 104 Carbon Dioxide 21 BUN 12 Creatinine 0.72 Glucose 270 H Calcium 8.4 L - ABG Interpretation ABG results: PT/INR, D-dimer PT 9.9 Seconds (9.4-12.1) 03/23/17 11:53 Consult Discharge Plan - Plan Referrals: Corey Waddell DO [Primary Care Provider] - 03/29/17 4:00 pm
[2017-03-25] MEDS: Bumetanide 1 MG TABLET PO SCH (13:40)
[2017-03-25] MEDS: Insulin DETEMIR 100 UNIT/ML X5UNITS SQ SCH ×2 (13:46→20:57)
[2017-03-25] MEDS ORDERED: Aminoglycoside Consult 1 EACH MC ONE (14:49)
[2017-03-25] MEDS ORDERED: Bumetanide 1 MG/4 ML VIAL IVP ONE (15:54)
[2017-03-25] MEDS: ARIPiprazole 10 MG TABLET PO SCH (20:57)
[2017-03-26] MEDS: *HR* HYDROmorphone (PF) 1 MG/ML SYRINGE IVP PRN ×3 (01:02→10:23)
[2017-03-26] MEDS: Ondansetron 4 MG/2 ML VIAL IVP PRN ×2 (01:08→10:24)
[2017-03-26] MEDS: *HR* Heparin 5,000 UNIT/ML VIAL SQ SCH ×2 (05:29→14:46)
[2017-03-26] MEDS: Ampicillin/Sulbactam 3,000 MG in 0.9 % Sodium Chloride Mini Bag 100 ML IVPB SCH ×2 (05:30→10:20)
[2017-03-26] MEDS: Insulin LISPRO 300 UNITS/3 ML VIAL SQ SCH ×2 (08:03→11:12)
[2017-03-26] MEDS: *HR* OxyCODONE Immed Rel 5 MG TABLET PO PRN ×2 (08:04→14:46)
[2017-03-26] MEDS: Isosorbide MONOnitrate (24 HR) 30 MG TAB.ER.24H PO SCH (10:21)
[2017-03-26] MEDS: Baclofen 10 MG TABLET PO SCH (10:21)
[2017-03-26] MEDS: Gabapentin 400 MG CAPSULE PO SCH ×2 (10:22→14:45)
[2017-03-26] MEDS: Magnesium Oxide 400 MG TABLET PO SCH (10:22)
[2017-03-26] MEDS: Aspirin 81 MG TAB.CHEW PO SCH (10:22)
[2017-03-26] MEDS: clonazePAM 1 MG TABLET PO SCH ×2 (10:23→14:46)
[2017-03-26] MEDS: Bumetanide 1 MG TABLET PO SCH (10:23)
[2017-03-26] MEDS: Insulin DETEMIR 100 UNIT/ML X5UNITS SQ SCH (10:23)
[2017-03-26] MEDS: Budesonide/Formoterol 160/4.5 MDI IH SCH (10:41)
[2017-03-26 11:15] VITALS: BP 101/54
[2017-03-26] MEDS ORDERED: Insulin DETEMIR 100 UNIT/ML X5UNITS SQ SCH (12:43)
--- NOTE | 2017-03-26 13:15 | Discharge Summary ---
Date of Encounter: 03/26/17 Time of Encounter: 13:21 - Discharge Diagnosis (1) Cellulitis Priority: Primary Status: Acute Qualifiers: Site of cellulitis: extremity Site of cellulitis of extremity: lower extremity Laterality: unspecified laterality Qualified Code(s): L03.119 - Cellulitis of unspecified part of limb (2) Diarrhea Priority: Primary Status: Resolved Qualifiers: Diarrhea type: unspecified type Qualified Code(s): R19.7 - Diarrhea, unspecified (3) Diabetes Priority: Secondary Status: Chronic 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 mellitus type: type 2 Diabetes mellitus complication status: with other specified complication Diabetes mellitus care home insulin use: with 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 transplanted heart: [place] heart Associated angina: without angina Qualified Code(s): I25.10 - Atherosclerotic heart disease of [place] coronary artery without angina pectoris (6) Anxiety Priority: Secondary Status: Chronic (7) Depression Priority: Secondary Status: Chronic Qualifiers: Depression Type: unspecified Qualified Code(s): F32.9 - Major depressive disorder, single episode, unspecified (8) GERD (gastroesophageal reflux disease) Priority: Secondary Status: Chronic Qualifiers: Esophagitis presence: esophagitis presence not specified Qualified Code(s) : K21.9 - Gastro-esophageal reflux disease without esophagitis (9) COPD (chronic obstructive pulmonary disease) Priority: Secondary Status: Chronic Qualifiers: COPD type: emphysema Emphysema type: unspecified Qualified Code(s): J43.9 - Emphysema, unspecified (10) Hypothyroidism Priority: Secondary Status: Chronic Qualifiers: Hypothyroidism type: unspecified Qualified Code(s): E03.9 - Hypothyroidism , unspecified (11) CHF (congestive heart failure) Priority: Secondary Status: Chronic Qualifiers: Congestive heart failure type: diastolic Congestive heart failure chronicity: chronic Qualified Code(s): I50.32 - Chronic diastolic (congestive ) heart failure - Discharge Medications Prescriptions: Amoxicillin/Clavulanate [Augmentin] 875 mg PO BIDWM #20 tablet Mag Hydrox/Al Hydrox/Simeth [Maalox] 30 ml PO Q6H PRN 30 Days PRN Reason: Heartburn Polyethylene Glycol 3350 [MiraLAX] 17 gm PO DAILY PRN #20 powd.pack PRN Reason: Constipation Sennosides/Docusate Sodium [Senna Plus] 2 each PO BID #30 tablet Home Medications: Budesonide/Formoterol 160/4.5 [Symbicort] 2 puff IH BIDR 04/21/15 [History] Levothyroxine [Synthroid] 100 mcg PO QAM 04/21/15 [History] Tiotropium [Spiriva] 18 mcg IH QAM 04/21/15 [History] metFORMIN [Glucophage] 1,000 mg PO BID 04/21/15 [History] Atorvastatin Calcium [Lipitor] 40 mg PO DAILY 02/04/16 [History] Buspirone HCl [Buspar] 15 mg PO TID 02/04/16 [History] Montelukast [Singulair] 10 mg PO HS 02/04/16 [History] Oxygen 2 l NS AD PRN 03/17/16 [History] Insulin Glargine [Lantus] 80 unit SQ QAM 03/25/16 [History] Insulin Glargine [Lantus] 90 unit SQ QPM 03/25/16 [History] Albuterol Sulfate [Albuterol Inhaler] 2 puff IH Q4HR PRN 05/01/16 [History] Citalopram Hydrobromide [Citalopram HBr] 40 mg PO DAILY 05/01/16 [History] Ipratropium/Albuterol Neb [Duoneb] 3 ml IH Q6H PRN 05/01/16 [History] Raloxifene [Evista] 60 mg PO DAILY 05/01/16 [History] Aripiprazole [Abilify] 10 mg PO HS tablet 05/03/16 [Rx] Fenofibrate Nanocrystallized [Tricor] 200 mg PO DAILY 06/15/16 [History] Clopidogrel [Plavix] 75 mg PO QAM tablet 06/18/16 [Rx] Buprenorphine [Butrans] 15 mcg TD QWEEK 06/27/16 [History] Bumetanide 2 mg PO DAILY 11/21/16 [History] Aspirin 81 mg PO DAILY #60 tab.chew 12/06/16 [Rx] Nystatin POWDER [Nystop] 1 appl TP BID 12/14/16 [History] metOLazone [Zaroxolyn] 5 mg PO Q48H 12/31/16 [History] Insulin ASPART [NovoLOG] 2 - 10 unit SQ TIDWM 03/07/17 [History] Potassium Chloride 20 meq PO BID 03/07/17 [History] Tizanidine HCl [Zanaflex] 4 mg PO TID PRN 03/07/17 [History] Metoprolol [Lopressor] 25 mg PO BID tab 03/10/17 [Rx] Amoxicillin/Clavulanate [Augmentin] 875 mg PO BIDWM #20 tablet 03/26/17 [Rx] Gabapentin [Neurontin] 800 mg PO TID #20 03/26/17 [Rx] Isosorbide MONOnitrate (24 HR) [Imdur] 30 mg PO QAM #30 03/26/17 [Rx] Mag Hydrox/Al Hydrox/Simeth [Maalox] 30 ml PO Q6H PRN 30 Days 03/26/17 [Rx] Magnesium Oxide [Mag-Ox] 400 mg PO BID tab 03/26/17 [Rx] Omeprazole [PriLOSEC] 20 mg PO DAILY@0630 03/26/17 [Rx] OxyCODONE/APAP 5/325 [Percocet 5/325 MG] 1 tab PO Q4H PRN #15 03/26/17 [Rx] Polyethylene Glycol 3350 [MiraLAX] 17 gm PO DAILY PRN #20 powd.pack 03/26/17 [Rx ] Sennosides/Docusate Sodium [Senna Plus] 2 each PO BID #30 tablet 03/26/17 [Rx] clonazePAM [Klonopin] 1 mg PO TID #20 tablet 03/26/17 [Rx] Allergies/Adverse Reactions: Allergies No Known Allergies Allergy (Verified 03/23/17 11:28) Date of admission: 03/23/17 14:50 Primary care physician: Corey Waddell, Consults: 03/24/17 11:04 OT [Consult to Occupational Therapy] [CONS] Routine Comment: Evaluate, develop and implement POC Reason for Consult: discharge planning PT [Consult to Physical Therapy] [CONS] Routine Comment: Evaluate, develop and implement POC Reason for Consult: discharge planning 03/24/17 11:05 Consult to [employer] [CONS] Routine Reason for SW Consult: discharge planning, referral already placed to [facility] Discharging clinician: Kenna Hodge Anticipated date of discharge: 03/26/17 - Patient Status Disposition: Transfer SNF Condition: Fair Functional capacity at discharge: independent ambulation Overall status at discharge: patient is progressing back to baseline - Discharge Instructions Follow Up With: Corey Waddell, [Primary Care Provider] - 03/29/17 4:00 pm - Diet and Activity Activity: as per physical therapy, wear oxygen at all times Diet: diabetic diet, low fat, low cholesterol, low salt diet Hospital course: Ms. Lynch is a 61 year old female with multiple medical problems, who was admitted with bilateral leg pain and redness and diarrhea. Her diarrhea improved quickly and stool GI panel could not be sent. She is noted to have multiple admissions and previous treatments with different courses of antibiotics for bilateral anterior leg cellulitis. It may or may not be true cellulitis, patient is noted to have increased erythema associated with pedal edema. She is noted to be noncompliant with diuretics at home. These have been restarted and she was treated with empiric IV antibiotics with some improvement. She was also noted to be on calcium channel randy, which is being held as it could cause pedal edema. She remained asymptomatic and hemodynamically stable throughout this hospitalization, did not meet criteria for sepsis. She was noted to have uncontrolled blood sugars and her insulin was titrated up accordingly. Patient was interested in being placed at a rehabilitation facility since admission. Physical therapy evaluation was completed and recommended ECF placement. child and family services worker was consulted and patient is currently medically stable for transfer to an extended care facility for continued rehabilitation. - Time Spent with Patient Total time spent providing and/or coordinating discharge services: Greater than 30 minutes (45 min) - Constitutional Vitals: Temp Pulse Resp BP Pulse Ox 98.0 F 76 18 101/54 94 03/26/17 11:07 03/26/17 11:07 03/26/17 11:07 03/26/17 11:07 03/26/17 11:07 General appearance: Present: A&O X 3, morbidly obese, answers questions appropriately - Respiratory Respiratory exam: Present: CTAB. Absent: accessory muscle use, rales, rhonchi, wheezes - Extremities Exam Extremities exam: Present: pedal edema (tight B/L leg edema), warm, radial pulses palpable and symetrical. Absent: calf tenderness, cyanotic Additional comments: erythema and dusky discoloration over B/L legs, likely stasis dermatitis
--- NOTE | 2017-03-26 13:40 | Physician Discharge Referral ---
ExtendedCare Referral Info Transfer To: [facility] Provider in Charge: Kenna Hodge Provider in Charge after Transfer: PCP Institutional Level of Care: Skilled - Diagnosis (1) Cellulitis Priority: Primary Status: Acute (2) Diarrhea Priority: Primary Status: Resolved (3) Diabetes Priority: Secondary Status: Chronic (4) Hyperlipidemia Priority: Secondary Status: Chronic (5) CAD (coronary artery disease) Priority: Secondary Status: Chronic (6) Anxiety Priority: Secondary Status: Chronic (7) Depression Priority: Secondary Status: Chronic (8) GERD (gastroesophageal reflux disease) Priority: Secondary Status: Chronic (9) COPD (chronic obstructive pulmonary disease) Priority: Secondary Status: Chronic (10) Hypothyroidism Priority: Secondary Status: Chronic (11) CHF (congestive heart failure) Priority: Secondary Status: Chronic Expected Duration of Placement: 3 weeks Prognosis: Good Aware of Diagnosis: Patient Aware of Prognosis: Patient - Transfer Medications Prescriptions: Amoxicillin/Clavulanate [Augmentin] 875 mg PO BIDWM #20 tablet Mag Hydrox/Al Hydrox/Simeth [Maalox] 30 ml PO Q6H PRN 30 Days PRN Reason: Heartburn Polyethylene Glycol 3350 [MiraLAX] 17 gm PO DAILY PRN #20 powd.pack PRN Reason: Constipation Sennosides/Docusate Sodium [Senna Plus] 2 each PO BID #30 tablet Home Medications: Budesonide/Formoterol 160/4.5 [Symbicort] 2 puff IH BIDR 04/21/15 [History] Gabapentin [Neurontin] 800 mg PO TID 04/21/15 [History] Levothyroxine [Synthroid] 100 mcg PO QAM 04/21/15 [History] Tiotropium [Spiriva] 18 mcg IH QAM 04/21/15 [History] metFORMIN [Glucophage] 1,000 mg PO BID 04/21/15 [History] Atorvastatin Calcium [Lipitor] 40 mg PO DAILY 02/04/16 [History] Buspirone HCl [Buspar] 15 mg PO TID 02/04/16 [History] Montelukast [Singulair] 10 mg PO HS 02/04/16 [History] Oxygen 2 l NS AD PRN 03/17/16 [History] Insulin Glargine [Lantus] 80 unit SQ QAM 03/25/16 [History] Insulin Glargine [Lantus] 90 unit SQ QPM 03/25/16 [History] Albuterol Sulfate [Albuterol Inhaler] 2 puff IH Q4HR PRN 05/01/16 [History] Citalopram Hydrobromide [Citalopram HBr] 40 mg PO DAILY 05/01/16 [History] Ipratropium/Albuterol Neb [Duoneb] 3 ml IH Q6H PRN 05/01/16 [History] Raloxifene [Evista] 60 mg PO DAILY 05/01/16 [History] Aripiprazole [Abilify] 10 mg PO HS tablet 05/03/16 [Rx] Fenofibrate Nanocrystallized [Tricor] 200 mg PO DAILY 06/15/16 [History] Clopidogrel [Plavix] 75 mg PO QAM tablet 06/18/16 [Rx] Buprenorphine [Butrans] 15 mcg TD QWEEK 06/27/16 [History] Bumetanide 2 mg PO DAILY 11/21/16 [History] Aspirin 81 mg PO DAILY #60 tab.chew 12/06/16 [Rx] Nystatin POWDER [Nystop] 1 appl TP BID 12/14/16 [History] metOLazone [Zaroxolyn] 5 mg PO Q48H 12/31/16 [History] clonazePAM [Klonopin] 1 mg PO TID #90 tablet 01/28/17 [Rx] Insulin ASPART [NovoLOG] 2 - 10 unit SQ TIDWM 03/07/17 [History] Potassium Chloride 20 meq PO BID 03/07/17 [History] Tizanidine HCl [Zanaflex] 4 mg PO TID PRN 03/07/17 [History] Tramadol HCl [Tramadol HCl ER] 300 mg PO DAILY 03/07/17 [History] Metoprolol [Lopressor] 25 mg PO BID tab 03/10/17 [Rx] Amoxicillin/Clavulanate [Augmentin] 875 mg PO BIDWM #20 tablet 03/26/17 [Rx] Isosorbide MONOnitrate (24 HR) [Imdur] 30 mg PO QAM #30 03/26/17 [Rx] Mag Hydrox/Al Hydrox/Simeth [Maalox] 30 ml PO Q6H PRN 30 Days 03/26/17 [Rx] Magnesium Oxide [Mag-Ox] 400 mg PO BID tab 03/26/17 [Rx] Omeprazole [PriLOSEC] 20 mg PO DAILY@0630 03/26/17 [Rx] OxyCODONE/APAP 5/325 [Percocet 5/325 MG] 1 tab PO Q4H PRN #15 03/26/17 [Rx] Polyethylene Glycol 3350 [MiraLAX] 17 gm PO DAILY PRN #20 powd.pack 03/26/17 [Rx ] Sennosides/Docusate Sodium [Senna Plus] 2 each PO BID #30 tablet 03/26/17 [Rx] Allergies/Adverse Reactions: Allergies No Known Allergies Allergy (Verified 03/23/17 11:28) - Respiratory Orders Oxygen / L per min (3-4L/min via NC) Smoking Cessation: Smoking cessation has been advised. For more information, call the [facility] Tobacco Quit Line at 4-583-WPLT-NOW. - Advance Directives Code Status: Full Code - Mobility Orders Ambulate - Rehabiliation Orders Rehab Orders: ROM Exercises, Evaluation for Physical Therapy, Evaluation for Occupational Therapy - Treatments May check for fecal impaction rectally daily PRN, Fleet enema rectally every other day PRN cleansing purposes - Diet Orders No Added Salt (GOSIA), No Concentrated Sweets (diabetic), Cardiac CERTIFICATION: I certify that the transfer of the above named patient to an Extended Care Facility is necessary for the continuing treatment of the diagnosis listed. The above information is true and accurate reflection of patient's current condition. Confidential - Redisclosure prohibited without a patient's written consent.
== END 2017-03-26 16:12 | DRG 603 ==
LOC: EMEROO 11:03 → 3ANU 14:50
PROVIDERS: ADMIT Internal Medicine; ATTEND Internal Medicine

== ENCOUNTER 2017-04-07 04:02 | Observation (INO) ==
[2017-04-07] MEDS ORDERED: Nitroglycerin 0.4 MG TAB.SUBL SL ONE (04:09)
[2017-04-07] MEDS ORDERED: Aspirin 81 MG TAB.CHEW PO ONE (04:09)
[2017-04-07 04:43] LABS: Basophils # 0.1 K/mcL (0.0-0.2); Basophils % 0.6 %; Eosinophils # 0.4 K/mcL (0.0-0.6); Eosinophils % 3.6 %; Hematocrit 34.9 % (35.3-44.9); Hemoglobin 10.3 g/dL (11.5-15.4); Lymphocytes # 3.1 K/mcL (0.6-4.6); Lymphocytes % 30.9 %; Mean Corpuscular HGB Conc 29.5 g/dL (31.6-35.5); Mean Corpuscular Hemoglobin 24.9 pg (28.0-33.3); Mean Corpuscular Volume 84.5 fL (83.0-100.0); Mean Platelet Volume 10.8 fL (9.4-12.4); Monocytes # 0.6 K/mcL (0.0-1.3); Neutrophils # 5.8 K/mcL (1.6-8.9); Platelet Count 230 K/mcL (140-400); Red Blood Count 4.13 M/mcL (3.82-4.97); Red Cell Distribution Width 15.1 % (11.5-14.5); Segmented Neutrophils % 57.9 %
[2017-04-07 04:48] LABS: INR 0.9
[2017-04-07 04:50] LABS: Activated Partial Thrombo Time 27.4 Seconds (26.0-36.0)
[2017-04-07 04:56] LABS: BUN/Creatinine Ratio 28 (6-26); Blood Urea Nitrogen 23 mg/dL (7-20); Carbon Dioxide 31 mEq/L (19-29); Chloride 100 mEq/L (98-109); Potassium 3.7 mEq/L (3.5-4.5); Sodium 140 mEq/L (136-145)
[2017-04-07 04:57] LABS: Glucose 130 mg/dL (70-99); Osmolality,Calculated 295 (280-300); eGFR For African Americans > 60 (> 60); eGFR For Non-African Americans > 60 (> 60)
[2017-04-07] MEDS ORDERED: *HR* OxyCODONE/APAP 5/325 TABLET PO ONE (05:15)
[2017-04-07] MEDS ORDERED: Ondansetron 4 MG/2 ML VIAL IVP ONE (05:16)
--- NOTE | 2017-04-07 05:35 | Emergency Department Note ---
Disposition Clinical Impression: Chest pain Qualifiers: Chest pain type: unspecified Qualified Code(s): R07.9 - Chest pain, unspecified Disposition: Home, Self-Care Condition: Fair Referrals: Corey Waddell DO [Primary Care Provider] - Forms: ED Satisfaction Letter Chest Pain HPI - General Chief Complaint: ED Chest Pain Stated Complaint: chest pain Time Seen by Provider: 04/07/17 04:09 Source: patient, EMS Limitations: no limitations Vital Signs Reviewed: Yes Nursing Notes Reviewed: Yes - History of Present Illness HPI Narrative: This is a 61-year-old female presents with concern for chest pain. She is currently residing in a rehabilitation facility. She developed chest pain which woke her up out of a sound sleep at 4 AM. Her chest pain is radiating into her neck and her back. She has no dyspnea. Her vital signs are stable on arrival. She denies chest wall trauma, hemoptysis, calf pain or leg tenderness. Severity scale (1-10): 7 - Related Data Home Medications Medication Instructions Recorded Confirmed Budesonide/Formoterol 160/4.5 2 puff IH BIDR 04/21/15 03/23/17 [Symbicort] Levothyroxine [Synthroid] 100 mcg PO QAM 04/21/15 03/23/17 Tiotropium [Spiriva] 18 mcg IH QAM 04/21/15 03/23/17 metFORMIN [Glucophage] 1,000 mg PO BID 04/21/15 03/23/17 Atorvastatin Calcium [Lipitor] 40 mg PO DAILY 02/04/16 03/23/17 Buspirone HCl [Buspar] 15 mg PO TID 02/04/16 03/23/17 Montelukast [Singulair] 10 mg PO HS 02/04/16 03/23/17 Oxygen 2 l NS AD PRN 03/17/16 03/23/17 Insulin Glargine [Lantus] 80 unit SQ QAM 03/25/16 03/23/17 Insulin Glargine [Lantus] 90 unit SQ QPM 03/25/16 03/23/17 Albuterol Sulfate [Albuterol 2 puff IH Q4HR PRN 05/01/16 03/23/17 Inhaler] Citalopram Hydrobromide 40 mg PO DAILY 05/01/16 03/23/17 [Citalopram HBr] Ipratropium/Albuterol Neb [Duoneb] 3 ml IH Q6H PRN 05/01/16 03/23/17 Raloxifene [Evista] 60 mg PO DAILY 05/01/16 03/23/17 Fenofibrate Nanocrystallized 200 mg PO DAILY 06/15/16 03/23/17 [Tricor] Buprenorphine [Butrans] 15 mcg TD QWEEK 06/27/16 03/23/17 Bumetanide 2 mg PO DAILY 11/21/16 03/23/17 Nystatin POWDER [Nystop] 1 appl TP BID 12/14/16 03/23/17 metOLazone [Zaroxolyn] 5 mg PO Q48H 12/31/16 03/23/17 Insulin ASPART [NovoLOG] 2 - 10 unit SQ TIDWM 03/07/17 03/23/17 Potassium Chloride 20 meq PO BID 03/07/17 03/23/17 Tizanidine HCl [Zanaflex] 4 mg PO TID PRN 03/07/17 03/23/17 Previous Rx's Medication Instructions Recorded Aripiprazole [Abilify] 10 mg PO HS tablet 05/03/16 Clopidogrel [Plavix] 75 mg PO QAM tablet 06/18/16 Aspirin 81 mg PO DAILY #60 tab.chew 12/06/16 Metoprolol [Lopressor] 25 mg PO BID tab 03/10/17 Amoxicillin/Clavulanate [Augmentin] 875 mg PO BIDWM #20 tablet 03/26/17 Gabapentin [Neurontin] 800 mg PO TID #20 03/26/17 Isosorbide MONOnitrate (24 HR) 30 mg PO QAM #30 03/26/17 [Imdur] Mag Hydrox/Al Hydrox/Simeth 30 ml PO Q6H PRN 30 Days 03/26/17 [Maalox] Magnesium Oxide [Mag-Ox] 400 mg PO BID tab 03/26/17 Omeprazole [PriLOSEC] 20 mg PO DAILY@0630 03/26/17 OxyCODONE/APAP 5/325 [Percocet 1 tab PO Q4H PRN #15 03/26/17 5/325 MG] Polyethylene Glycol 3350 [MiraLAX] 17 gm PO DAILY PRN #20 powd.pack 03/26/17 Sennosides/Docusate Sodium [Senna 2 each PO BID #30 tablet 03/26/17 Plus] clonazePAM [Klonopin] 1 mg PO TID #20 tablet 03/26/17 Allergies Allergy/AdvReac Type Severity Reaction Status Date / Time No Known Allergies Allergy Verified 03/23/17 11:28 All systems ED: reviewed and negative except as stated. 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 - Social History Smoking Status: Former smoker Alcohol use: Reports: none Drug use: Reports: none Physical Exam - General Limitations: no limitations General appearance: alert, in no apparent distress - Head Head exam: atraumatic - Eye Eye exam: Present: normal appearance - ENT ENT exam: normal exam, normal oropharynx - Neck Neck exam: Present: normal inspection, full ROM - Chest Chest inspection: Present: normal inspection - Respiratory Respiratory exam: Present: normal lung sounds bilaterally - Cardiovascular Cardiovascular exam: Present: regular rate, normal rhythm - Abdominal Exam Abdominal exam: Present: soft, Non-Tender - Extremities Exam Extremities exam: Present: normal inspection, full ROM - Expanded Lower Extremity Exam Hip/Pelvis exam: Present: normal inspection, full ROM Upper leg exam: Present: normal inspection, full ROM Knee exam: Present: normal inspection, full ROM Lower leg exam: Present: normal inspection, full ROM Ankle exam: Present: normal inspection, full ROM Foot/toe exam: Present: normal inspection, full ROM (Gen. Y she is in the area) Neurovascular/Tendon exam: Present: normal capillary refill. Absent: pulse deficit Gait: observed and normal - Back Exam Back exam: Present: normal inspection - Neurological Exam Neurological exam: Present: alert, oriented X3, CN II-XII intact - Psychiatric Psychiatric exam: Present: normal affect, normal mood - Skin Skin exam: Present: warm, dry Course Vital Signs Temperature 0 F L 04/07/17 04:07 Pulse Rate 76 04/07/17 04:07 Respiratory Rate 16 04/07/17 04:07 Blood Pressure 114/61 04/07/17 04:07 O2 Sat by Pulse Oximetry 95 04/07/17 04:07 Temperature 0 F L 04/07/17 04:07 Pulse Rate 61 04/07/17 04:48 Respiratory Rate 15 04/07/17 04:48 Blood Pressure 126/76 04/07/17 04:48 O2 Sat by Pulse Oximetry 92 04/07/17 04:48 Oxygen Delivery Oxygen Delivery Room Air Chest Pain - MDM Narrative Medical decision making narrative: EKG shows sinus rhythm with nonspecific ST segment changes low QRS voltage poor R-wave progression nonspecific abnormal ECG 61-year-old female patient with multiple cardiac risk factors presenting with chest pain. She is at a rehabilitation facility. Her pain is typical in nature. Her vital signs are stable. She had no improvement with nitroglycerin. Aspirin was administered. Plan to admit for ACS rule out given the onset of her symptoms was 1 hour prior to arrival. - Medical Records Medical records reviewed: Yes I reviewed the patient's medical records. - Lab Data Lab results reviewed: Yes I reviewed the patient's lab results. Result diagrams: 04/07/17 04:29 04/07/17 04:29 Lab Results 04/07/17 04/07/17 04/07/17 Range/Units 04:29 04:29 04:29 WBC 10.0 (4.3-11.1) K/mcL RBC 4.13 (3.82-4.97) M/mcL Hgb 10.3 L (11.5-15.4) g/dL Hct 34.9 L (35.3-44.9) % MCV 84.5 (83.0-100.0) fL MCH 24.9 L (28.0-33.3) pg MCHC 29.5 L (31.6-35.5) g/dL RDW 15.1 H (11.5-14.5) % Plt Count 230 (140-400) K/mcL MPV 10.8 (9.4-12.4) fL Immature Gran % 1.0 (0-4) % Seg Neutrophils % 57.9 % Lymphocytes % 30.9 % Monocytes % 6.0 % Eosinophils % 3.6 % Basophils % 0.6 % Neutrophils # 5.8 (1.6-8.9) K/mcL Lymphocytes # 3.1 (0.6-4.6) K/mcL Monocytes # 0.6 (0.0-1.3) K/mcL Eosinophils # 0.4 (0.0-0.6) K/mcL Basophils # 0.1 (0.0-0.2) K/mcL PT 10.0 (9.4-12.1) Seconds INR 0.9 APTT 27.4 (26.0-36.0) Seconds Sodium (136-145) mEq/L Potassium (3.5-4.5) mEq/L Chloride (98-109) mEq/L Carbon Dioxide (19-29) mEq/L BUN (7-20) mg/dL Creatinine (0.57-1.11) mg/dL Est GFR ( Amer) (> 60) Est GFR (Non-Af Amer) (> 60) BUN/Creatinine Ratio (6-26) Glucose (70-99) mg/dL Calculated Osmolality (280-300) Calcium (8.6-10.8) mg/dL Troponin I (0-0.03) ng/mL B-Natriuretic Peptide 33 (0-100) pg/mL 04/07/17 04/07/17 Range/Units 04:29 04:29 WBC (4.3-11.1) K/mcL RBC (3.82-4.97) M/mcL Hgb (11.5-15.4) g/dL Hct (35.3-44.9) % MCV (83.0-100.0) fL MCH (28.0-33.3) pg MCHC (31.6-35.5) g/dL RDW (11.5-14.5) % Plt Count (140-400) K/mcL MPV (9.4-12.4) fL Immature Gran % (0-4) % Seg Neutrophils % % Lymphocytes % % Monocytes % % Eosinophils % % Basophils % % Neutrophils # (1.6-8.9) K/mcL Lymphocytes # (0.6-4.6) K/mcL Monocytes # (0.0-1.3) K/mcL Eosinophils # (0.0-0.6) K/mcL Basophils # (0.0-0.2) K/mcL PT (9.4-12.1) Seconds INR APTT (26.0-36.0) Seconds Sodium 140 (136-145) mEq/L Potassium 3.7 (3.5-4.5) mEq/L Chloride 100 (98-109) mEq/L Carbon Dioxide 31 H (19-29) mEq/L BUN 23 H (7-20) mg/dL Creatinine 0.83 (0.57-1.11) mg/dL Est GFR ( Amer) > 60 (> 60) Est GFR (Non-Af Amer) > 60 (> 60) BUN/Creatinine Ratio 28 H (6-26) Glucose 130 H (70-99) mg/dL Calculated Osmolality 295 (280-300) Calcium 9.0 (8.6-10.8) mg/dL Troponin I 0.00 (0-0.03) ng/mL B-Natriuretic Peptide (0-100) pg/mL
--- NOTE | 2017-04-07 06:08 | Internal Med History&Physical ---
Date of Encounter: 04/07/17 Time of Encounter: 06:02 Assessment and Plan (1) Chest pain Current visit: Yes Status: Acute admit for observation. Had recent negative stress testing. Given recurrent admission and is established with Dr Bro, would consult cards for recommendations of optimization of further plan of care going forward. Tele, trend trop for now Qualifiers: Chest pain type: unspecified Qualified Code(s): R07.9 - Chest pain, unspecified (2) COPD (chronic obstructive pulmonary disease) Current visit: No Status: Acute stable. No acute distress Qualifiers: COPD type: emphysema Emphysema type: unspecified Qualified Code(s): J43.9 - Emphysema, unspecified (3) CAD (coronary artery disease) Current visit: No Status: Chronic continue cardiac meds to include DAPT Qualifiers: Coronary Disease-Associated Artery/Lesion type: [place] artery [place] vs. transplanted heart: [place] heart Associated angina: without angina Qualified Code(s): I25.10 - Atherosclerotic heart disease of [place] coronary artery without angina pectoris (4) Diabetes mellitus Current visit: No Status: Chronic hold metformin, continue home insulin 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 mellitus type: type 2 Diabetes mellitus complication status: with neurologic complications Diabetes mellitus complication detail: with polyneuropathy Diabetes mellitus penitentiary insulin use: with intermediate accountant use Qualified Code(s): E11.42 - Type 2 diabetes mellitus with diabetic polyneuropathy; Z79.4 - [facility] (current) use of insulin (5) HTN (hypertension) Current visit: No Status: Chronic continue home meds Qualifiers: Hypertension type: essential hypertension Qualified Code(s): I10 - Essential (primary) hypertension (6) Morbid obesity with BMI of 40.0-44.9, adult Current visit: No Status: Chronic education, lifestyle mod Internal Medicine - H&P: HPI Chief complaint: chest pain History of present illness: Ms. Lynch is a 61 year old female who reports hx of CAD and s/p stents x4, last reported 2007 who presents with chest pain. She woke up at 4 a.m this morning with sternal chest pain , described as dull, heaviness associated with nausea, rated 7/10, radiating to the left side of chest to left arm and head, associated with L.finger paresthesia. Pain did not improve with nitro or ASA. She is under the care of Dr Bro. Of note, she has a recurrent episode of chest pain with several admission this year. She was recently admitted on 01/28/17 and prior to that, on in october where she had a negative stress test 11/23/16. EKG reviewed by self this current admission with rate 62, NSR, non specifc T wave changes that appears unremarkable. She current resides at a SNF since her discharge on 03/26/17 where she was treated for leg pain and cellulitis. Was transferred to SNF for rehab after deconditioning. Past Med Surg Social Fam HX - Past Medical History Medical history: arthritis, CHF, COPD, coronary artery disease, diabetes, GERD, hyperlipidemia, hypertension, osteoporosis, thyroid disease, TIA, venous stasis , other Psychiatric history: anxiety, bipolar, depression, panic disorder - Past Surgical History Surgical History: angioplasty/stent, , cholecystectomy, hysterectomy, other - Social History Smoking Status: Former smoker Smokeless Tobacco Status: No Alcohol use: none Drug use: none - Family History Father Adopted: No Family Member Ethnicity: Non- Living Status: Hx Family Cardiac Disorders: Yes Mother Adopted: No Family Member Ethnicity: Non- Living Status: Hx Family Cardiac Disorders: Yes ([place]) Hx Family Respiratory Disorders: No Hx Family Cancer: No Hx Family GI Disorders: No Hx Family Endocrine Disorder: Yes ([place]) Hx Family Neuromuscular Disorders: No Hx Family Neurologic Disorders: Yes ([place]) Hx Family HEENT Disorders: No Hx Family Autoimmune Disorders: No Internal Medicine - H&P: Meds Budesonide/Formoterol 160/4.5 [Symbicort] 2 puff IH BIDR 04/21/15 [History] Levothyroxine [Synthroid] 100 mcg PO QAM 04/21/15 [History] Tiotropium [Spiriva] 18 mcg IH QAM 04/21/15 [History] metFORMIN [Glucophage] 1,000 mg PO BID 04/21/15 [History] Atorvastatin Calcium [Lipitor] 40 mg PO DAILY 02/04/16 [History] Buspirone HCl [Buspar] 15 mg PO TID 02/04/16 [History] Montelukast [Singulair] 10 mg PO HS 02/04/16 [History] Oxygen 2 l NS AD PRN 03/17/16 [History] Insulin Glargine [Lantus] 80 unit SQ QAM 03/25/16 [History] Insulin Glargine [Lantus] 90 unit SQ QPM 03/25/16 [History] Albuterol Sulfate [Albuterol Inhaler] 2 puff IH Q4HR PRN 05/01/16 [History] Citalopram Hydrobromide [Citalopram HBr] 20 mg PO DAILY 05/01/16 [History] Ipratropium/Albuterol Neb [Duoneb] 3 ml IH Q6H PRN 05/01/16 [History] Raloxifene [Evista] 60 mg PO DAILY 05/01/16 [History] Aripiprazole [Abilify] 10 mg PO HS tablet 05/03/16 [Rx] Fenofibrate Nanocrystallized [Tricor] 200 mg PO DAILY 06/15/16 [History] Clopidogrel [Plavix] 75 mg PO QAM tablet 06/18/16 [Rx] Buprenorphine [Butrans] 15 mcg TD QWEEK 06/27/16 [History] Bumetanide 2 mg PO DAILY 11/21/16 [History] Aspirin 81 mg PO DAILY #60 tab.chew 12/06/16 [Rx] Nystatin POWDER [Nystop] 1 appl TP BID 12/14/16 [History] metOLazone [Zaroxolyn] 5 mg PO Q48H 12/31/16 [History] Insulin ASPART [NovoLOG] 2 - 10 unit SQ TIDWM 03/07/17 [History] Potassium Chloride 20 meq PO BID 03/07/17 [History] Tizanidine HCl [Zanaflex] 4 mg PO TID PRN 03/07/17 [History] Metoprolol [Lopressor] 25 mg PO BID tab 03/10/17 [Rx] Amoxicillin/Clavulanate [Augmentin] 875 mg PO BIDWM #20 tablet 03/26/17 [Rx] Gabapentin [Neurontin] 800 mg PO TID #20 03/26/17 [Rx] Isosorbide MONOnitrate (24 HR) [Imdur] 30 mg PO QAM #30 03/26/17 [Rx] Mag Hydrox/Al Hydrox/Simeth [Maalox] 30 ml PO Q6H PRN 30 Days 03/26/17 [Rx] Magnesium Oxide [Mag-Ox] 400 mg PO BID tab 03/26/17 [Rx] Omeprazole [PriLOSEC] 20 mg PO DAILY@0630 03/26/17 [Rx] OxyCODONE/APAP 5/325 [Percocet 5/325 MG] 1 tab PO Q4H PRN #15 03/26/17 [Rx] Polyethylene Glycol 3350 [MiraLAX] 17 gm PO DAILY PRN #20 powd.pack 03/26/17 [Rx ] Sennosides/Docusate Sodium [Senna Plus] 2 each PO BID #30 tablet 03/26/17 [Rx] clonazePAM [Klonopin] 1 mg PO TID #20 tablet 03/26/17 [Rx] Allergies No Known Allergies Allergy (Verified 03/23/17 11:28) All Systems PM: A 10-system review of systems was performed and is negative for pertinent findings except as documented above in the HPI. Review of systems: ROS 14 point review of systems reviewed as best as possible given presentation. Pertinent positive or negative as per HPI or otherwise reviewed as negative - Constitutional Vitals: Temp Pulse Resp BP Pulse Ox 0 F L 61 16 100/64 92 04/07/17 04:07 04/07/17 04:48 04/07/17 05:57 04/07/17 05:57 04/07/17 04:48 Exam: General - AAO x 3 Psych - Appropriate affect/speech. No agitation Eyes - MICHELLE. Eye lids intact. No scleral icterus ENT - Oral mucosa pink, dentition intact. External ear clear/dry/intact. No thyromegaly Lymphatics - No cervical/inguinal lympadenopathy Heart - Sinus. RRR. S1 and S2 present. No added HS/murmurs appreciated. No elevated JVD appreciated. +2 lower extremity edema Lung - Adequate air entry b/l, No crackes/wheezes appreciated GI - Soft, non-tender. No hepatosplenomegaly/ascities. BS+ - No CVA/suprapubic tenderness or palpable bladder distension Skin - lower extremity swelling with stasis changes and skin MSK - Joints with normal ROM. No joint swellings Internal Med - H&P Results - Labs CBC & Chem 7: 04/07/17 04:29 04/07/17 04:29 Labs: Short CBC 04/07/17 Range/Units 04:29 WBC 10.0 (4.3-11.1) K/mcL Hgb 10.3 L (11.5-15.4) g/dL Hct 34.9 L (35.3-44.9) % Plt Count 230 (140-400) K/mcL Neutrophils # 5.8 (1.6-8.9) K/mcL BMP 04/07/17 04:29 Sodium 140 Potassium 3.7 Chloride 100 Carbon Dioxide 31 H BUN 23 H Creatinine 0.83 Glucose 130 H Calcium 9.0 Cardiac Enzymes 04/07/17 Range/Units 04:29 Troponin I 0.00 (0-0.03) ng/mL - Impressions ITS Impressions Chest X-Ray 04/07/17 04:09 IMPRESSION: 1. No radiographic finding to account for patient's chest pain. D/ / Nando Ace MD / Nando Ace MD Interpreting Provider: Nando Ace MD
[2017-04-07] MEDS ORDERED: *HR* HYDROcodone/Acet 5/325 mg TABLET PO PRN (06:13)
[2017-04-07] MEDS ORDERED: Naloxone 0.4 MG/ML INJ IVP PRN (06:13)
[2017-04-07] MEDS ORDERED: *HR* Dextrose 50 % in Water (Syg) 50 ML SYRINGE IVP PRN (06:18)
[2017-04-07] MEDS ORDERED: D5% in Water 1,000 ML IVC PRN (06:18)
[2017-04-07] MEDS ORDERED: Dextrose Gel 15 GM PO PRN ×2 (06:18)
[2017-04-07] MEDS ORDERED: Mag Hydrox/Al Hydrox/Simeth 30 ML UDC PO PRN (06:23)
[2017-04-07] MEDS ORDERED: Ipratropium/Albuterol Neb 3 ML IH PRN (06:23)
[2017-04-07] MEDS ORDERED: tiZANidine 4 MG TABLET PO PRN (06:23)
[2017-04-07] MEDS ORDERED: metOLazone 5 MG TABLET PO SCH (06:30)
[2017-04-07] MEDS: *HR* OxyCODONE/APAP 5/325 TABLET PO PRN ×3 (07:11→20:27)
[2017-04-07] MEDS: Tiotropium 18 MCG inhalation IH SCH (08:07)
[2017-04-07] MEDS: Budesonide/Formoterol 160/4.5 MDI IH SCH ×2 (08:08→20:55)
[2017-04-07] MEDS: Insulin LISPRO 300 UNITS/3 ML VIAL SQ SCH ×3 (08:41→18:06)
[2017-04-07] MEDS ORDERED: Isosorbide MONOnitrate (24 HR) 30 MG TAB.ER.24H PO SCH (09:00)
[2017-04-07] MEDS ORDERED: NON-FORMULARY MEDICATION 1 EACH EACH (Insulin Glargine [Lantus] 90 UNIT) SQ SCH (09:00)
--- NOTE | 2017-04-07 10:07 | Cardiology Consult Note ---
Addendum entered and electronically signed by Yamile Awad CNP 04/07/17 12: 45: Per discussion with , patient with recurrent chest pain. Significant risk factors, including uncontrolled diabetes. PLan for left heart cath. Discussed with patient. Risks versus benefits of LHC explained to patient. Patient states understanding and agreeable to proceed with LHC. Further recommendationd pending LHC. Original Note: <Yamile Awad - Last Filed: 04/07/17 10:01> Date of Encounter: 04/07/17 Time of Encounter: 09:00 Assessment and Plan (1) Chest pain Current Visit: No Status: Acute Per cardiology: -Patient with recurrent chest pain. -Patient states symptoms are different this time. States pain occured at rest. -States pain worsened with movement and was lessened with rest. -Pain not reproduceable on exam. -ECG with no ischemic changes. -Troponin 0 x 2. -Recent negative stress test 10/2016. -On imdur. -Third troponin pending. -Further recommendations pending third troponin. -Will increase imdur. Qualifiers: Chest pain type: unspecified Qualified Code(s): R07.9 - Chest pain, unspecified (2) CAD (coronary artery disease) Current Visit: No Status: Chronic Per cardiology: -KNown CAD. -On asa, statin, plavix, beta randy, and imdur. -Echo 06/28/16 with LVEF 65%, inderterminate diastolic function, midly dilated RV with normal function, no significant valvular dysfunction, all wall segments with normal motion. -LHC 05/07/2015 with proximal LAD patent stents, 20% proximal LAD, 20% proximal circumflex, proximal RCA with patent stents, mid RCA with patent stents, RPL with 95% stenosis, however small vessel. -10/2016 Nuclear stress test negative for ischemia or infarct, gated EF >70%. -Chest pain n admission. -Of note, patient has not been seen in outpatient cardiology office since 2013. -Trend troponins. Qualifiers: Coronary Disease-Associated Artery/Lesion type: [place] artery [place] vs. transplanted heart: [place] heart Associated angina: with unspecified angina Qualified Code(s): I25.119 - Atherosclerotic heart disease of [place] coronary artery with unspecified angina pectoris Discussion w patient/family: The assessment and plan as outlined above was discussed with the patient who expressed understanding and agreement. All questions were answered. Thank you for involving us in the care of your patient. Please call with any questions. Discussed and reviewed with . History of Present Illness Consult date: 04/07/17 Requesting physician: Liseth Bone Consult reason: recurrent chest pain Chief complaint: chest pain History of present illness: Ms. Lynch is a 61 year old female with a relevant past medical history of CAD with PCI, cellulitis, DM, HTN, COPD, chronic pain, anxiety, depression, hyperlipidemia, hypothyroidism. Patient states she was woken out of sleep by chest pain. Patient states this pain felt more like pressure and was different than her previous chest pain symptoms. Patient states pain was worsened with movement. Patient states pain was lessened with rest. Patient denies increased shortness of breath. Patient admits to increased fatigue. Patient states since her last discharge from the hospital, she was been at an [facility] for rehabilitation. Past Med Surg Social Fam HX - Past Medical History Attestation: Yes The following information was validated with the patient. Source: patient, old records reviewed Medical history: arthritis, CHF, COPD, coronary artery disease, diabetes, GERD, hyperlipidemia, hypertension, osteoporosis, thyroid disease, TIA, venous stasis , other Psychiatric history: anxiety, bipolar, depression, panic disorder - Past Surgical History Surgical History: angioplasty/stent, , cholecystectomy, hysterectomy, other - Social History Smoking Status: Former smoker Smokeless Tobacco Status: No Alcohol use: none Drug use: none - Family History Father Adopted: No Family Member Ethnicity: Non- Living Status: Hx Family Cardiac Disorders: Yes Mother Adopted: No Family Member Ethnicity: Non- Living Status: Hx Family Cardiac Disorders: Yes ([place]) Hx Family Respiratory Disorders: No Hx Family Cancer: No Hx Family GI Disorders: No Hx Family Endocrine Disorder: Yes (DM) Hx Family Neuromuscular Disorders: No Hx Family Neurologic Disorders: Yes ([place]) Hx Family HEENT Disorders: No Hx Family Autoimmune Disorders: No Medications and Allergies Budesonide/Formoterol 160/4.5 [Symbicort] 2 puff IH BIDR 04/21/15 [History] Levothyroxine [Synthroid] 100 mcg PO QAM 04/21/15 [History] Tiotropium [Spiriva] 18 mcg IH QAM 04/21/15 [History] metFORMIN [Glucophage] 1,000 mg PO BID 04/21/15 [History] Atorvastatin Calcium [Lipitor] 40 mg PO DAILY 02/04/16 [History] Buspirone HCl [Buspar] 15 mg PO TID 02/04/16 [History] Montelukast [Singulair] 10 mg PO HS 02/04/16 [History] Oxygen 2 l NS AD PRN 03/17/16 [History] Insulin Glargine [Lantus] 80 unit SQ QAM 03/25/16 [History] Insulin Glargine [Lantus] 90 unit SQ QPM 03/25/16 [History] Albuterol Sulfate [Albuterol Inhaler] 2 puff IH Q4HR PRN 05/01/16 [History] Citalopram Hydrobromide [Citalopram HBr] 20 mg PO DAILY 05/01/16 [History] Ipratropium/Albuterol Neb [Duoneb] 3 ml IH Q6H PRN 05/01/16 [History] Raloxifene [Evista] 60 mg PO DAILY 05/01/16 [History] Aripiprazole [Abilify] 10 mg PO HS tablet 05/03/16 [Rx] Fenofibrate Nanocrystallized [Tricor] 200 mg PO DAILY 06/15/16 [History] Clopidogrel [Plavix] 75 mg PO QAM tablet 06/18/16 [Rx] Buprenorphine [Butrans] 15 mcg TD QWEEK 06/27/16 [History] Bumetanide 2 mg PO DAILY 11/21/16 [History] Aspirin 81 mg PO DAILY #60 tab.chew 12/06/16 [Rx] Nystatin POWDER [Nystop] 1 appl TP BID 12/14/16 [History] metOLazone [Zaroxolyn] 5 mg PO Q48H 12/31/16 [History] Insulin ASPART [NovoLOG] 2 - 10 unit SQ TIDWM 03/07/17 [History] Potassium Chloride 20 meq PO BID 03/07/17 [History] Tizanidine HCl [Zanaflex] 4 mg PO TID PRN 03/07/17 [History] Metoprolol [Lopressor] 25 mg PO BID tab 03/10/17 [Rx] Amoxicillin/Clavulanate [Augmentin] 875 mg PO BIDWM #20 tablet 03/26/17 [Rx] Gabapentin [Neurontin] 800 mg PO TID #20 03/26/17 [Rx] Isosorbide MONOnitrate (24 HR) [Imdur] 30 mg PO QAM #30 03/26/17 [Rx] Mag Hydrox/Al Hydrox/Simeth [Maalox] 30 ml PO Q6H PRN 30 Days 03/26/17 [Rx] Magnesium Oxide [Mag-Ox] 400 mg PO BID tab 03/26/17 [Rx] Omeprazole [PriLOSEC] 20 mg PO DAILY@0630 03/26/17 [Rx] OxyCODONE/APAP 5/325 [Percocet 5/325 MG] 1 tab PO Q4H PRN #15 03/26/17 [Rx] Polyethylene Glycol 3350 [MiraLAX] 17 gm PO DAILY PRN #20 powd.pack 03/26/17 [Rx ] Sennosides/Docusate Sodium [Senna Plus] 2 each PO BID #30 tablet 03/26/17 [Rx] clonazePAM [Klonopin] 1 mg PO TID #20 tablet 03/26/17 [Rx] Allergies No Known Allergies Allergy (Verified 03/23/17 11:28) All Systems Review: A 10-system review of systems was performed and is negative for pertinent findings except as documented above in the HPI. - Constitutional Constitutional: fatigue - Cardiovascular Cardiovascular: as per HPI, chest pain at rest Physical Examination Vital Signs, Last 4 Hours Temp Pulse Resp BP Pulse Ox 04/07/17 08:08 20 95 04/07/17 07:24 108/71 04/07/17 07:22 97.7 F 61 16 104/56 92 General: Conversant, No Apparent Distress HEENT: Atraumatic, Normocephaly, Mucus Membranes Moist Neck: No JVD, Normal carotid pulses Cardiac: Reg Rate and Rhythm, Normal S1 and S2, No Murmur Lungs: Normal Breath Sounds, No Wheeze, Rales, Rhonchi Neuro: Alert and responsive, No focal deficits noted Abdomen: Soft, Non-Tender Skin: No rashes noted on visualized skin, Other (Bilateral lower extremities with red, flaky skin. ) Musculoskeletal: No Chest Wall Tenderness Extremities: No Clubbing, No Cyanosis, Normal Pulses, Other (Mild pedal edema noted bilaterally, non-pitting. ) Results 04/07/17 04:29 04/07/17 04:29 Lab Results Impressions Chest X-Ray 04/07/17 04:09 IMPRESSION: 1. No radiographic finding to account for patient's chest pain. D/ / Nando Ace MD / Nando Ace MD Interpreting Provider: Nando Ace MD Active Medications Al Hydrox/Mg Hydrox/Simethicone (Maalox) 30 ml PO Q6H PRN; Protocol PRN Reason: Heartburn Stop: 10/07/17 06:24 Albuterol Sulfate (Albuterol Inhaler) 2 puff IH Q4H PRN PRN Reason: Shortness Of Breath Stop: 10/07/17 06:24 Albuterol/Ipratropium (Duoneb) 3 ml IH Q6H PRN PRN Reason: Shortness Of Breath Stop: 10/07/17 06:24 Aripiprazole (Abilify) 10 mg PO HS [facility] Stop: 10/07/17 21:01 Aspirin (Aspirin) 81 mg PO DAILY [facility] Stop: 10/07/17 09:01 Atorvastatin Calcium (Lipitor) 40 mg PO DAILY [facility] Stop: 10/07/17 09:01 Budesonide/Formoterol Fumarate (Symbicort) 2 puff IH BIDR [facility] PRN Reason: Protocol Stop: 10/07/17 10:01 Last Admin: 04/07/17 08:08 Dose: 2 puff Bumetanide (Bumex) 2 mg PO DAILY [facility] Stop: 10/07/17 09:01 Buspirone HCl (Buspar) 15 mg PO TID [facility] Stop: 10/07/17 09:01 Citalopram Hydrobromide (Celexa) 20 mg PO DAILY [facility] Stop: 10/07/17 09:01 Clonazepam (Klonopin) 1 mg PO TID [facility] Stop: 10/07/17 09:01 Clopidogrel Bisulfate (Plavix) 75 mg PO QAM [facility] Stop: 10/07/17 09:01 Dextrose/Water (Dextrose 50% (Syg)) 25 ml IVP AD PRN PRN Reason: Hypoglycemia Stop: 10/07/17 06:19 Fenofibrate (Tricor) 162 mg PO DAILY [facility] PRN Reason: Protocol Stop: 10/07/17 09:01 Gabapentin (Neurontin) 800 mg PO TID [facility] Stop: 10/07/17 09:01 Glucagon (Glucagen) 1 mg IM ONCE PRN PRN Reason: Hypoglycemia Stop: 10/07/17 06:19 Glucose (Gluctose) 15 gm PO ONCE PRN PRN Reason: Hypoglycemia Stop: 10/07/17 06:19 Glucose (Gluctose) 30 gm PO ONCE PRN PRN Reason: Hypoglycemia Stop: 10/07/17 06:19 Dextrose (Dextrose 5%) 1,000 mls @ 100 mls/hr IVC .Q10H PRN PRN Reason: HYPOGLYCEMIA Stop: 10/07/17 06:19 Insulin Detemir (Levemir) 90 unit SQ QAM [facility] Stop: 10/07/17 09:01 Insulin Detemir (Levemir) 80 unit SQ QPM [facility] Stop: 10/07/17 18:01 Insulin Human Lispro (Humalog) 0 units SQ HS [facility] PRN Reason: Protocol Stop: 10/07/17 21:01 Insulin Human Lispro (Humalog) 0 units SQ TIDAC [facility] PRN Reason: Protocol Stop: 10/07/17 07:31 Last Admin: 04/07/17 08:41 Dose: Not Given Isosorbide Mononitrate (Imdur) 30 mg PO QAM [facility] Stop: 10/07/17 09:01 Levothyroxine Sodium (Synthroid) 100 mcg PO QAM [facility] Stop: 10/07/17 09:01 Magnesium Oxide (Mag-Ox) 400 mg PO BID [facility] PRN Reason: Protocol Stop: 10/07/17 09:01 Metolazone (Zaroxolyn) 5 mg PO Q48H [facility] Stop: 10/07/17 06:31 Last Admin: 04/07/17 07:11 Dose: 5 mg Metoprolol Tartrate (Lopressor) 25 mg PO BID [facility] Stop: 10/07/17 09:01 Montelukast Sodium (Singulair) 10 mg PO HS [facility] Stop: 10/07/17 21:01 Naloxone HCl (Narcan) 0.4 mg IVP Q2MIN PRN PRN Reason: Opioid Reversal Stop: 10/07/17 06:14 Nystatin (Nystop) 1 appl TP BID [facility] Stop: 10/07/17 09:01 Omeprazole (Prilosec) 20 mg PO DAILY@0630 [facility] PRN Reason: Protocol Stop: 10/07/17 06:31 Last Admin: 04/07/17 07:11 Dose: 20 mg Oxycodone/Acetaminophen (Percocet 5/325) 1 each PO Q4H PRN PRN Reason: Pain Stop: 10/07/17 06:24 Last Admin: 04/07/17 07:11 Dose: 1 each Polyethylene Glycol (Miralax) 17 gm PO DAILY PRN PRN Reason: Constipation Stop: 10/07/17 06:24 Potassium Chloride (Potassium Chloride) 20 meq PO BID [facility] Stop: 10/07/17 09:01 Senna/Docusate Sodium (Senna Plus) 2 each PO BID [facility] PRN Reason: Protocol Stop: 10/07/17 09:01 Tiotropium [place] (Spiriva) 18 mcg IH QAM [facility] Stop: 10/07/17 09:01 Last Admin: 04/07/17 08:07 Dose: Not Given Tizanidine HCl (Zanaflex) 4 mg PO TID PRN PRN Reason: Muscle Spasm Laboratory Tests 04/07/17 04/07/17 04/07/17 04:29 04:29 04:29 Hgb 10.3 L Creatinine 0.83 Troponin I B-Natriuretic Peptide 33 04/07/17 04/07/17 04:29 07:00 Hgb Creatinine Troponin I 0.00 0.00 B-Natriuretic Peptide - Imaging and Cardiology Chest Xray: report reviewed Stress Test: report reviewed Echo: report reviewed Cardiac cath: report reviewed - EKG Interpretation EKG results cardiology: personally reviewed (ECG with SR, HR 62.), other ( Telemetry reviewed with average HR 63, sinus rhythm, No significant events noted.) Consult Discharge Plan - Plan Referrals: Corey Waddell DO [Primary Care Provider] - 04/12/17 2:30 pm <Amada Rosenthal - Last Filed: 04/07/17 14:38> Date of Encounter: 04/07/17 Assessment and Plan Discussion w patient/family: The assessment and plan as outlined above was discussed with the patient and/or family members who expressed understanding and agreement. All questions were answered. Thank you for involving us in the care of your patient. Please call with any questions. History of Present Illness History of present illness: Ms. Lynch is a 61 year old female All Systems Review: A 10-system review of systems was performed and is negative for pertinent findings except as documented above in the HPI. Physical Examination Vital Signs, Last 4 Hours Temp Pulse Resp BP Pulse Ox 04/07/17 11:45 98.1 F 63 16 141/75 95 Results 04/07/17 04:29 04/07/17 04:29 Lab Results 04/07/17 04/07/17 07:00 12:51 Troponin I 0.00 0.00 - Attending Attestation I examined this patient and my medical decision-making was reviewed with the Resident Physician. I agree with the documented findings, disposition and treatment plan. Ms. Lynch has recurrent chest pain and multiple admissions. She has risk factors for CAD including uncontrolled diabetes, female gender, postmenopausal status, HTN and HPL. She had a stress test in October 2016 that was negative for ischemia. However, given ongoing, recurrent chest pain and risk factors, we gave the patient the option of proceeding with [facility] for further evaluation. The R/B/A of the procedure were explained to the patient. The patient expressed understanding and decided to proceed with the procedure.
[2017-04-07] MEDS: Insulin DETEMIR 100 UNIT/ML X5UNITS SQ SCH (10:09)
[2017-04-07] MEDS: Sennosides/Docusate Sodium TABLET PO SCH ×2 (10:10→21:50)
[2017-04-07] MEDS: clonazePAM 1 MG TABLET PO SCH ×3 (10:10→21:50)
[2017-04-07] MEDS: Bumetanide 1 MG TABLET PO SCH (10:10)
[2017-04-07] MEDS: Magnesium Oxide 400 MG TABLET PO SCH ×2 (10:11→21:51)
[2017-04-07] MEDS: Aspirin 81 MG TAB.CHEW PO SCH (10:11)
[2017-04-07] MEDS: Nystatin POWDER 30 GM BOTTLE TP SCH ×2 (10:12→21:57)
[2017-04-07] MEDS: Gabapentin 400 MG CAPSULE PO SCH ×3 (10:12→21:51)
[2017-04-07] MEDS: Fenofibrate 54 MG TABLET PO SCH (10:14)
[2017-04-07] MEDS: Isosorbide MONOnitrate (24 HR) 60 MG TAB.ER.24H PO SCH (12:35)
[2017-04-07] MEDS ORDERED: *HR* Morphine 2 MG/ML SYRINGE IVP PRN (13:52)
--- NOTE | 2017-04-07 13:55 | Event Note ---
Date of Encounter: 04/07/17 Time of Encounter: 13:30 Patient seen and examined. On examination, patient resting supine in bed conversing with her . Patient is endorsing severe left-sided chest pain that is radiating up into her neck. She states this is different than her prior bouts of chest pain. She is requesting more pain medication stating that her pain is severe. Will give one-time dose of IV morphine prior to her heart catheter which is scheduled for later today. Further recommendations pending on heart catheter results. field services manager on board, unclear if the patient is a bed hold at the [facility] from which she presented. Chest x-ray negative. Cardiology recommended increasing her Imdur as well. Of note, patient has not followed up with cardiology since 2013. ITS Impressions Chest X-Ray 04/07/17 04:09 IMPRESSION: 1. No radiographic finding to account for patient's chest pain. D/ / Nando Ace MD / Nando Ace MD Interpreting Provider: Nando Ace MD
[2017-04-07] MEDS ORDERED: Heparin 1,000 UNITS/500 mL NS 500 ML ONE (14:48)
[2017-04-07] MEDS ORDERED: *HR* Heparin 10,000 UNIT/10 ML VIAL ONE (14:48)
[2017-04-07] MEDS ORDERED: 0.9 % Sodium Chloride 1,000 ML ONE ×2 (14:48→15:02)
[2017-04-07] MEDS ORDERED: Nitroglycerin 1,000 MCG/10 ML VIAL IV ONE (14:49)
--- NOTE | 2017-04-07 14:57 | Pre-Sedation Evaluation ---
Pre-sedation evaluation - Pre-sedation checklist Date of procedure: 04/07/17 Procedure: [facility] Recent Vitals: Last Vital Signs Temp 98.1 F 04/07/17 11:45 Pulse 63 04/07/17 11:45 Resp 16 04/07/17 11:45 BP 141/75 04/07/17 11:45 Pulse Ox 95 04/07/17 11:45 H&P (including ROS) documented in medical record: Yes Previous reaction to sedatives/anesthetics: No Dietary Status: No solid food in preceding 4 hrs and no liquid in preceding 2 hrs Airway Assessment: Patient can open mouth completely, TMJ function normal Dentition: dentures removed Possible difficult airway: No ASA Classification *see protocol: CLASS II-Mild systemic disease Plan of Care: Pt appropriate candidate for procedure/moderate/conscious sedation , Risks/benefits of procedure/sedation discussed w/ patient/family
[2017-04-07] MEDS ORDERED: *HR* Midazolam HCl 2 MG/2 ML VIAL ONE ×2 (15:02→15:20)
--- NOTE | 2017-04-07 15:42 | Electrocardiograph Report ---
[address] [place], [place] [address] Test Date: 2017-04-07 Pat Name: Claire Lynch Department: 102 Room: 3B33 Gender: F Oral And Maxillofacial Pathologist: Efraín : 1955 Requested By: Maverick oTure Order Number: [id number] Reading MD: Shant Avila Measurements Intervals [place] Rate: 62 P: 39 IA: 170 QRS: 22 QRSD: 85 T: 15 QT: 456 QTc: 461 Interpretive Statements SINUS RHYTHM WITH SINUS ARRHYTHMIA LOW QRS VOLTAGE IN PRECORDIAL LEADS SEPTAL MYOCARDIAL INFARCTION , PROBABLY OLD Electronically Signed On 04-07-2017 15:41:01 EDT by Shant Avila
--- NOTE | 2017-04-07 15:56 | Event Note ---
Date of Encounter: 04/07/17 Time of Encounter: 15:40 - Cardiology Event Note Discussed [facility] findings with Dr. Anthony, non-obstructive CAD. Chest discomfort likely not cardiac in etiology, will defer further work-up to primary service. Continue home CV medications including asa, statin, betablocker, plavix, and nitrates. Risk factor modification. Cardiology will sign-off.
[2017-04-07] MEDS ORDERED: *HR* Morphine 2 MG/ML SYRINGE ONE (16:01)
--- NOTE | 2017-04-07 16:09 | Invasive Diagnostic Lab Proc ---
Name: Claire Lynch Date of Study: 04/07/2017 Date: 1955 Ht: 59.8in Medical Record#: [id number] Age: 61 Wt: 235.89lb Gender: Female BSA: 2. Order #: [id number] BMI: 46.31 Physicians Procedure Physician: Mario Anthony DO Referring MD: Referring MD: Staff Name Position Time In Radha Pierson RT Scrub 03:03 PM Pee Belen RT (R) Monitor 03:03 PM Liam Santos RN Net Programmer Analyst 03:03 PM Gill Nazario RN Net Programmer Analyst 03:03 PM Indications Indication Unstable Angina Coronary Artery Disease Procedures Performed Procedure L HRT ARTERY/VENTRICLE ANGIO Pre-Procedure Checklist Pt not NPO for procedure and MD aware. Blood Pressure: 141/75 Rhythm: NSR Plan of Care Patient will tolerate the procedure without complications. Adequate level of comfort will be maintained. Hemodynamics will remain stable Patient will recover from procedure without complications. Respiratory function will be maintained. Cardiac rhythm will remain stable. Patient temperature will be maintained. Patient and/or family have verbalized understanding of the procedure. Patient Education Chief Complaint/Reason for Test: Cardiac Cath Developmental Category: Adult (18-64 years) Developmentally Appropriate for Age: Yes Learning Barriers: None Education Needs: Procedure Education Method: Verbal Information Taught: Cardiac Cath Educational Evaluation: Able to repeat information Intravenous Access Time IV Size Location DC'd Fluid/Drip Rate Units RN 20g 1 /" Patent On Arrival Lt Antecubital 0.9NaCl 25 ml/hr Allergies No Known Allergies Vital Signs Time BP (mmHg) HR (bpm) O2 Sat. RR (bpm) LOC 03:03 PM / % 5 = Fully awake and oriented or at pre-proc level 03:07 PM 116 / 54 70 92 % 14 03:12 PM 120 / 60 67 93 % 11 03:17 PM 122 / 53 68 93 % 20 03:22 PM 110 / 55 66 93 % 16 03:28 PM 121 / 50 68 93 % 15 03:32 PM 127 / 49 74 92 % 16 Procedural Medications Time Medication Dose Units Method Given By 03:03 PM Oxygen 2 L/min nasal cannula Liam Santos RN 03:07 PM Versed 2 mg Intravenous Liam Santos RN 03:20 PM Versed 1 mg Intravenous Liam Santos RN 03:20 PM Lidocaine 2% 10 ml Subcutaneous Mario Anthony DO ASA Classification: CLASS II- Mild systemic disease (i.e. well-controlled diabetes, hypertension, asthma, cigarette smoking) Cecilia Score Preprocedure Postprocedure Activity 2- Moves 4 extremities sustained head lift Activity Circulation 2- SBP +/= 20 points of pre-anesthetic level Circulation Consciousness 2- Awake and alert oriented x 3 Consciousness O2 Saturation 2- Able to maintain O2 satruation of 92% on room air O2 Saturation Respiratory 2- Able to deep breathe and cough well Respiratory Total Score 10 Total Score Contrast Agent: Isovue Diagnostic Contrast: 75 ml Total Contrast: 75 ml Fluoro Dose: 459 mGy Procedure Log Time Note Enter By 03:03 PM Pt arrived to pharmaceutical laboratory technician 2 at 15:03 scoates 03:03 PM Radha Pierson RT Position: Scrub Time in: 15:03 scoates 03:03 PM Belen Glasgow RT (R) Position: Monitor Time in: 15:03 scoates 03:03 PM Liam Santos RN Position: Net Programmer Analyst Time in: 15:03 scoates 03:03 PM Gill Nazario RN Position: Net Programmer Analyst Time in: 15:03 scoates 03:03 PM Patient charges- Angio tray pack, Navilyst 3mm J, Pulse Oximetry and ACIST tubing and transducer scoates 03:03 PM Physician arrived 15:03 scoates 03:03 PM Meet and greet completed scoates 03:03 PM Sign in performed according to hospital policy. scoates 03:03 PM Procedure start 15:03 scoates 03:03 PM Time: 15:03 Oxygen on at 2 L/min per nasal cannula by Liam Santos RN scoates 03:03 PM Time: 15:03 Patient comfortable and pain free: Yes scoates 03:03 PM Time: 15:03LOC: 5 = Fully awake and oriented or at pre-proc level scoates 03:03 PM Clinical Presentation: Unstable angina scoates 03:03 PM Hair removed from procedure site in holding area using clippers. Bilateral groin prepped with Chloraprep by Belen Glasgow RT (R), safety strap applied then patient was draped. Skin intact. scoates 03:06 PM CathStat 03:07 PM Vitals capture started with the following parameters, Patient=Adult, Interval=5 min, Initial Cdztjvvc=328 mmHg, Deflation Rate=5 mmHg, Cuff placed on Right Arm 03:07 PM Recorded ECG: HR=54 Condition=Condition 1 03:07 PM Time: 15:07 Versed 2 mg Intravenous Given by Liam Santos RN scoates 03:07 PM HR=70 bpm, EYBZ=763/54 mmhg, SpO2=92.0 %, Resp=14 B/min 03:09 PM Recorded ECG: HR=68 Condition=Condition 1 03:12 PM HR=67 bpm, TEOV=060/60 mmhg, SpO2=93.0 %, Resp=11 B/min 03:17 PM HR=68 bpm, TKTH=120/53 mmhg, SpO2=93 %, Resp=20 B/min 03:18 PM Pressure channel 2 zeroed. 03:20 PM Time: 15:20 Versed 1 mg Intravenous Given by Liam Santos RN tsites 03:20 PM Time out performed according to hospital policy tsites 03:21 PM Time: 15:20 10 ml Lidocaine 2% to right groin Subcutaneous Given by Mario Anthony DO tsites 03:21 PM Micro-Introducer Kit utilized for sheath placement tsites 03:22 PM HR=66 bpm, QQJC=022/55 mmhg, SpO2=93 %, Resp=16 B/min 03:25 PM Access obtained by percutaneous puncture. 6Fr 10cm Terumo Dutton sheath placed in right Femoral artery. [id number] tsites 03:25 PM 5Fr FR 4 catheter inserted over the wire [facility] tsites 03:25 PM 0.035 145cm Navilyst 3mmJ wire [id number] tsites 03:26 PM Recorded Pressure: LV, HR=64, Condition=Condition 1 (Left Ventricle) LV 142/5/13 03:26 PM Catheter selectively placed in left ventricle tsites 03:27 PM Recorded Pressure: LV, Ao, HR=66, Condition=Condition 1 (Left Ventricle) LV 130/3/11, (Aorta) Ao 138/62/90 03:27 PM 10ml hand injection into the LV tsites 03:27 PM RCA angiography performed in multiple views. tsites 03:27 PM Recorded Pressure: Ao, HR=68, Condition=Condition 1 (Aorta) Ao 121/56/84 03:28 PM wire reinserted catheter removed tsites 03:28 PM HR=68 bpm, SUXI=014/50 mmhg, SpO2=93.0 %, Resp=15 B/min 03:28 PM 5Fr FL 4 catheter inserted over the wire DNC tsites 03:28 PM LCA angiography performed in multiple views. tsites 03:29 PM wire reinserted catheter removed tsites 03:31 PM 5Fr FL5 catheter inserted over the wire [id number] tsites 03:32 PM HR=74 bpm, HPDB=038/49 mmhg, SpO2=92 %, Resp=16 B/min 03:33 PM wire reinserted catheter removed tsites 03:34 PM 6Fr XB LAD 3.5 [place] Bright-Tip guide catheter was used to cannulate the PCI vessel successfully. reused? No tsites 03:35 PM Recorded Pressure: Ao, HR=73, Condition=Condition 1 (Aorta) Ao 106/51/71 03:35 PM LCA angiography performed in multiple views. tsites 03:36 PM Recorded Pressure: Ao, HR=70, Condition=Condition 1 (Aorta) Ao 125/51/80 03:39 PM Catheter removed tsites 03:39 PM Procedure completed at 15:39 tsites 03:39 PM Sign out completed: Radiation Dose 459 mGy Fluoro Time: 3.7 Isovue 370 - 500ml contrast 75 ml given by Mario Anthony DO. Complications: NoneCardiac Rehab Consult needed: NoConfirmed administered medications: Yes tsites 03:40 PM Isovue 370 - 500ml,1 Bottle(s) used. tsites 03:40 PM Post ECG NSR tsites 03:40 PM Post Blood Pressure 115/50 tsites 03:40 PM 15:40 Post Pulses Bilateral DP & PT 2+ tsites 03:41 PM Information taught Cardiac Cath and V+ Pad tsites 03:41 PM Education needs Procedure, Plan of Care, and Responsibilities of Patient in Care tsites 03:41 PM Arterial sheath pulled using manual compression and V+ Pad for 15 minutes by Radha Pierson RT tsites 03:41 PM Learning barriers :None tsites 03:41 PM Education Methods Verbal tsites 03:41 PM Education evaluation Able to repeat information tsites 03:43 PM Coronary Dominance: right tsites 03:43 PM Lesion found in Distal RCA. Pre Stenosis: 30 Pre ANNA Flow: tsites 03:43 PM Right Coronary, Right Posterior Descending Arteries with Right Posterolateral and Acute Marginal branches with 30 % stenosis. If graft is supplying this area, 0 % stenosis tsites 03:57 PM Site status No bleeding/hematoma - Rt Groin as reported by Radha Pierson RT at 15:56 tsites 03:57 PM Opsite applied tsites 03:57 PM Delay to floor No tsites 03:57 PM Patient out of room: 15:57 tsites Complications Complication None Hemodynamics Pressures Site Systolic/A Wave Diastolic/V Wave Mean LV 142 5 13 LV 130 3 11 AO 138 62 90 AO 121 56 84 AO 106 51 71 AO 125 51 80 Post Procedure Information Blood Pressure: 115/50 mmHg Rhythm: NSR Site Checks Time Location Status Staff Sheath In? Note 03:56 PM Rt Groin No bleeding/hematoma Radha Pierson RT Pulses Time Site Pre-Procedure Post-Procedure Note Bilateral DP & PT 2+ 3:40:00 PM Bilateral DP & PT 2+ Updated by Belen Pee RT (R) on 04/07/2017 3:58:[facility] signed on 04/07/2017 4:02:40 PM with status of Final
[2017-04-07] MEDS ORDERED: Insulin DETEMIR 100 UNIT/ML X5UNITS SQ SCH (18:00)
[2017-04-07] MEDS ORDERED: NON-FORMULARY MEDICATION 1 EACH EACH (Insulin Glargine [Lantus] 80 UNIT) SQ SCH (18:00)
[2017-04-07] MEDS ORDERED: ARIPiprazole 10 MG TABLET PO SCH (21:00)
[2017-04-07] MEDS ORDERED: Insulin LISPRO 300 UNITS/3 ML VIAL SQ SCH (21:00)
[2017-04-07] MEDS: 0.9 % Sodium Chloride 1,000 ML IVC SCH (22:05)
[2017-04-08] MEDS: *HR* OxyCODONE/APAP 5/325 TABLET PO PRN ×2 (04:00→08:53)
[2017-04-08] MEDS: 0.9 % Sodium Chloride 1,000 ML IVC SCH (06:51)
[2017-04-08 07:57] VITALS: BP 136/82
[2017-04-08] MEDS: Budesonide/Formoterol 160/4.5 MDI IH SCH (08:27)
[2017-04-08] MEDS: Tiotropium 18 MCG inhalation IH SCH (08:27)
[2017-04-08] MEDS: Bumetanide 1 MG TABLET PO SCH (08:41)
[2017-04-08] MEDS: clonazePAM 1 MG TABLET PO SCH (08:41)
[2017-04-08] MEDS: Magnesium Oxide 400 MG TABLET PO SCH (08:41)
[2017-04-08] MEDS: Isosorbide MONOnitrate (24 HR) 60 MG TAB.ER.24H PO SCH (08:41)
[2017-04-08] MEDS: Gabapentin 400 MG CAPSULE PO SCH (08:41)
[2017-04-08] MEDS: Aspirin 81 MG TAB.CHEW PO SCH (08:41)
[2017-04-08] MEDS: Fenofibrate 54 MG TABLET PO SCH (08:42)
[2017-04-08] MEDS: Sennosides/Docusate Sodium TABLET PO SCH (08:42)
[2017-04-08] MEDS: Insulin DETEMIR 100 UNIT/ML X5UNITS SQ SCH (08:45)
[2017-04-08] MEDS: Insulin LISPRO 300 UNITS/3 ML VIAL SQ SCH ×2 (08:46→12:13)
[2017-04-08] MEDS: Nystatin POWDER 30 GM BOTTLE TP SCH (08:50)
[2017-04-08] MEDS ORDERED: Amoxicillin/Clavulanate 500 MG TABLET PO SCH (09:31)
--- NOTE | 2017-04-08 10:48 | Discharge Summary ---
Date of Encounter: 04/08/17 Time of Encounter: 09:30 - Discharge Diagnosis (1) Chest pain Priority: Primary Status: Ruled-out Comments: This is the patient's 31st EMS transport to the emergency department in one year. Most of these visits, the chief complaint was chest pain. Cardiology was brought on board who performed a left heart catheter which revealed minimal , nonobstructive CAD with recommendation for medical management. Qualifiers: Chest pain type: unspecified Qualified Code(s): R07.9 - Chest pain, unspecified (2) E. coli UTI (urinary tract infection) Priority: Primary Status: Acute Comments: Treating with Augmentin. No antibiotic allergies (3) CAD (coronary artery disease) Priority: Secondary Status: Chronic Qualifiers: Coronary Disease-Associated Artery/Lesion type: [place] artery [place] vs. transplanted heart: [place] heart Associated angina: with unspecified angina Qualified Code(s): I25.119 - Atherosclerotic heart disease of [place] coronary artery with unspecified angina pectoris (4) Insulin dependent diabetes mellitus Priority: Secondary Status: Chronic Comments: Uncontrolled with an A1c of 9.1%. Patient with lengthy history of noncompliance. Recommend continued follow-up outpatient. (5) Anxiety Priority: Secondary Status: Chronic Comments: Mood and affect stable during this admission (6) Depression Priority: Secondary Status: Chronic Qualifiers: Depression Type: unspecified Qualified Code(s): F32.9 - Major depressive disorder, single episode, unspecified (7) GERD (gastroesophageal reflux disease) Priority: Secondary Status: Chronic Comments: Denied current symptoms Qualifiers: Esophagitis presence: without esophagitis Qualified Code(s): K21.9 - Gastro -esophageal reflux disease without esophagitis (8) COPD (chronic obstructive pulmonary disease) Priority: Secondary Status: Chronic Comments: No acute exacerbation. Patient denies shortness of breath above her normal Qualifiers: COPD type: unspecified COPD Qualified Code(s): J44.9 - Chronic obstructive pulmonary disease, unspecified (9) Hypothyroidism Priority: Secondary Status: Chronic Comments: TSH checked at the beginning of this year, normal Qualifiers: Hypothyroidism type: unspecified Qualified Code(s): E03.9 - Hypothyroidism , unspecified (10) HTN (hypertension) Priority: Secondary Status: Chronic Comments: Controlled, follow-up outpatient Qualifiers: Hypertension type: essential hypertension Qualified Code(s): I10 - Essential (primary) hypertension (11) Anemia Priority: Secondary Status: Chronic Comments: Mild, chronic, currently at the high end of her normal Qualifiers: Anemia type: unspecified type Qualified Code(s): D64.9 - Anemia, unspecified (12) Tobacco use disorder Priority: Secondary Status: Resolved (13) Chronic respiratory failure with hypoxia Priority: Secondary Status: Chronic Comments: Patient denies shortness of breath above her normal throughout this admission. No increased oxygen requirements. (14) Chronic diastolic CHF (congestive heart failure) Priority: Secondary Status: Chronic Comments: No acute exacerbation. Euvolemic on examination. (15) Drug-seeking behavior Priority: Secondary Status: Chronic Comments: Patient continually asked for IV narcotics during this admission. (16) Polypharmacy Priority: Secondary Status: Chronic (17) Venous stasis dermatitis of both lower extremities Priority: Secondary Status: Chronic Comments: No indication of acute infection at this time. Follow up outpatient (18) DVT prophylaxis Priority: Primary Status: Acute Comments: Observation patient (19) Morbid obesity with BMI of 45.0-49.9, adult Priority: Secondary Status: Chronic - Discharge Medications Prescriptions: Amoxicillin/Clavulanate [Augmentin] 875 mg PO BIDWM #20 tablet Isosorbide MONOnitrate (24 HR) [Imdur] 60 mg PO DAILY #30 Home Medications: Budesonide/Formoterol 160/4.5 [Symbicort] 2 puff IH BIDR 04/21/15 [History] Levothyroxine [Synthroid] 100 mcg PO QAM 04/21/15 [History] Tiotropium [Spiriva] 18 mcg IH QAM 04/21/15 [History] metFORMIN [Glucophage] 1,000 mg PO BID 04/21/15 [History] Atorvastatin Calcium [Lipitor] 40 mg PO DAILY 02/04/16 [History] Buspirone HCl [Buspar] 15 mg PO TID 02/04/16 [History] Montelukast [Singulair] 10 mg PO HS 02/04/16 [History] Oxygen 2 l NS AD PRN 03/17/16 [History] Insulin Glargine [Lantus] 80 unit SQ QAM 03/25/16 [History] Insulin Glargine [Lantus] 90 unit SQ QPM 03/25/16 [History] Albuterol Sulfate [Albuterol Inhaler] 2 puff IH Q4HR PRN 05/01/16 [History] Citalopram Hydrobromide [Citalopram HBr] 20 mg PO DAILY 05/01/16 [History] Ipratropium/Albuterol Neb [Duoneb] 3 ml IH Q6H PRN 05/01/16 [History] Raloxifene [Evista] 60 mg PO DAILY 05/01/16 [History] Aripiprazole [Abilify] 10 mg PO HS tablet 05/03/16 [Rx] Fenofibrate Nanocrystallized [Tricor] 200 mg PO DAILY 06/15/16 [History] Clopidogrel [Plavix] 75 mg PO QAM tablet 06/18/16 [Rx] Buprenorphine [Butrans] 15 mcg TD QWEEK 06/27/16 [History] Bumetanide 2 mg PO DAILY 11/21/16 [History] Aspirin 81 mg PO DAILY #60 tab.chew 12/06/16 [Rx] Nystatin POWDER [Nystop] 1 appl TP BID 12/14/16 [History] metOLazone [Zaroxolyn] 5 mg PO Q48H 12/31/16 [History] Insulin ASPART [NovoLOG] 2 - 10 unit SQ TIDWM 03/07/17 [History] Potassium Chloride 20 meq PO BID 03/07/17 [History] Tizanidine HCl [Zanaflex] 4 mg PO TID PRN 03/07/17 [History] Metoprolol [Lopressor] 25 mg PO BID tab 03/10/17 [Rx] Gabapentin [Neurontin] 800 mg PO TID #20 03/26/17 [Rx] Mag Hydrox/Al Hydrox/Simeth [Maalox] 30 ml PO Q6H PRN 30 Days 03/26/17 [Rx] Magnesium Oxide [Mag-Ox] 400 mg PO BID tab 03/26/17 [Rx] Omeprazole [PriLOSEC] 20 mg PO DAILY@0630 03/26/17 [Rx] OxyCODONE/APAP 5/325 [Percocet 5/325 MG] 1 tab PO Q4H PRN #15 03/26/17 [Rx] Polyethylene Glycol 3350 [MiraLAX] 17 gm PO DAILY PRN #20 powd.pack 03/26/17 [Rx ] Sennosides/Docusate Sodium [Senna Plus] 2 each PO BID #30 tablet 03/26/17 [Rx] clonazePAM [Klonopin] 1 mg PO TID #20 tablet 03/26/17 [Rx] Amoxicillin/Clavulanate [Augmentin] 875 mg PO BIDWM #20 tablet 04/08/17 [Rx] Isosorbide MONOnitrate (24 HR) [Imdur] 60 mg PO DAILY #30 04/08/17 [Rx] Allergies/Adverse Reactions: Allergies No Known Allergies Allergy (Verified 03/23/17 11:28) Procedures/tests Complete & Pending: Procedures Performed prior 72 hours Category Date Time Status CL Cardiac Catheterization [CL] Routine Manager Of Case Management 04/07/17 12:44 Ordered Date of admission: 04/07/17 05:47 Primary care physician: Corey Waddell, Consults: 04/07/17 06:16 Consult to Cardiology [CONS] Routine Comment: Consulting Provider: [facility] [place] Reason for Consult: chest pain, recurrent. Known to Dr Bro. Had negative stress testing earlier this year. Call Completed: No 04/07/17 06:41 Consult to [facility] [CONS] Routine Reason for SW Consult: at [facility]- can she go back? Discharging clinician: Keyanna Irizarry Anticipated date of discharge: 04/08/17 (refusing to go back to SNF; sending with ) - Patient Status Disposition: Home Health Service Condition: Fair Functional capacity at discharge: independent ambulation Overall status at discharge: patient is progressing back to baseline - Discharge Instructions Follow Up With: Corey Waddell DO [Primary Care Provider] - 04/12/17 2:30 pm Additional Instructions: Follow-up with primary care provider as scheduled - Diet and Activity Activity: increase activity as tolerated Diet: diabetic diet, low fat, low cholesterol, low salt diet Hospital course: Ms. Lynch is a 61 year old female with past medical history of CAD status post stents, CHF, COPD on oxygen at home, diabetes, GERD, hyperlipidemia, hypertension, hypothyroidism, chronic venous stasis, bipolar, panic disorder, cholecystectomy, hysterectomy, former tobacco abuse. Patient presented to the emergency department with chief complaint of chest pain. She stated that she woke up at 4:00 in the morning was sternal located chest pain described as dull , heavy and associated with nausea and radiating to her left side of her chest to her left arm and left side of her head and associated with left finger paresthesias. Patient stating the pain did not improve with nitroglycerin or aspirin. In review of her chart, this visit was her 31st EMS visit to the emergency department in the past year. The majority of her visits have been for chest pain and she has received numerous workups that were unremarkable. Of note, she was just discharged on 03/26/17 to [facility] for leg pain and cellulitis. Workup in the emergency department unremarkable. Chest x-ray negative. Patient was admitted to the hospitalist service for further evaluation and management. Troponin negative 2. No ECG changes. Patient recently had a negative stress test in October of this year. Cardiology was brought on board due to multiple readmissions for the same complaint. They elected to proceed with a left heart catheter which revealed nonobstructive CAD. Cardiology increased her Imdur and recommended medical management and surmised that her chest discomfort is not likely to be cardiac in origin. Patient stating she did not want to go back to the [facility] on discharge stating she was set to be discharged from there next week anyways, so she stated she wanted to go home. She was amenable to going home with home health services. She was diagnosed with a urinary tract infection on the day prior to presentation. Culture report consistent with Escherichia coli that was susceptible to Augmentin and this was continued upon discharge. A new prescription was written because the patient stating she was not sure whether or not she ever filled first prescription. She was discharged home in stable condition with close outpatient follow-up recommended. Of note, she has not followed up with cardiology services since 2013 despite several appointments having been made. ITS Impressions Chest X-Ray 04/07/17 04:09 IMPRESSION: 1. No radiographic finding to account for patient's chest pain. D/ / Nando Ace MD / Nando Ace MD Interpreting Provider: Nando Ace MD - Time Spent with Patient Total time spent providing and/or coordinating discharge services: - Constitutional Vitals: Temp Pulse Resp BP Pulse Ox 97.9 F 69 16 136/82 94 08/11/17 07:53 04/08/17 07:53 04/08/17 08:29 04/08/17 07:53 04/08/17 08:55 General appearance: Present: A&O X 3, morbidly obese, pleasant, no acute distress, answers questions appropriately - Head Head exam: Present: atraumatic, normocephalic - Eye Eye exam: Present: PERRL, conjuntiva pink, sclera anicteric Pupils: Present: PERRL - Neck Neck exam general surgery: Present: supple, trachea midline. Absent: lymphadenopathy - Respiratory Respiratory exam: Present: decreased breath sounds. Absent: accessory muscle use, rales, respiratory distress, rhonchi, wheezes - Cardiovascular Cardiovascular exam: Present: RRR, +S1, +S2. Absent: diastolic murmur, gallop, rubs, systolic murmur - GI/Abdominal GI/Abdominal exam: Present: normal bowel sounds, soft, no peritoneal signs. Absent: distended, tenderness - Extremities Exam Extremities exam: Present: pedal edema (chronic), warm, radial pulses palpable and symmetrical. Absent: calf tenderness, cyanotic - Neurological Exam Neurological exam: Present: alert, CN II-XII intact, normal gait, oriented X3, no focal deficits, strengths equal and symetr throughout. Absent: pronater drift, facial droop, speech deficit - Skin Skin exam: Present: dry, intact, pallor, warm
--- NOTE | 2017-04-08 11:26 | Physician Discharge Referral ---
Home Health/Hosp Referral Info Transfer to: Home Health Attending Provider: Jeremy Irizarry CNP Provider in Charge Post Discharge: PCP - Diagnosis (1) Chest pain Priority: Primary Status: Ruled-out (2) E. coli UTI (urinary tract infection) Priority: Primary Status: Acute (3) CAD (coronary artery disease) Priority: Secondary Status: Chronic (4) Insulin dependent diabetes mellitus Priority: Secondary Status: Chronic (5) Anxiety Priority: Secondary Status: Chronic (6) Depression Priority: Secondary Status: Chronic (7) GERD (gastroesophageal reflux disease) Priority: Secondary Status: Chronic (8) COPD (chronic obstructive pulmonary disease) Priority: Secondary Status: Chronic (9) Hypothyroidism Priority: Secondary Status: Chronic (10) HTN (hypertension) Priority: Secondary Status: Chronic (11) Anemia Priority: Secondary Status: Chronic (12) Tobacco use disorder Priority: Secondary Status: Resolved (13) Chronic respiratory failure with hypoxia Priority: Secondary Status: Chronic (14) Chronic diastolic CHF (congestive heart failure) Priority: Secondary Status: Chronic (15) Drug-seeking behavior Priority: Secondary Status: Chronic (16) Polypharmacy Priority: Secondary Status: Chronic (17) Venous stasis dermatitis of both lower extremities Priority: Secondary Status: Chronic (18) DVT prophylaxis Priority: Primary Status: Acute (19) Morbid obesity with BMI of 45.0-49.9, adult Priority: Secondary Status: Chronic - Respiratory Orders Smoking Cessation: Smoking cessation has been advised. For more information, call the [place] Tobacco Quit Line at 6-005-AQZI-NOW. - Diet/Nutrition Diet/Nutrition Orders: No Added Salt (GOSIA), Cardiac, No Concentrated Sweets - Activity Activity Orders: Ambulate - Services Needed Following services are medically necessary services: Nursing, Physical Therapy, Occupational Therapy - Transfer Medications Prescriptions: Amoxicillin/Clavulanate [Augmentin] 875 mg PO BIDWM #20 tablet Isosorbide MONOnitrate (24 HR) [Imdur] 60 mg PO DAILY #30 Home Medications: Budesonide/Formoterol 160/4.5 [Symbicort] 2 puff IH BIDR 04/21/15 [History] Levothyroxine [Synthroid] 100 mcg PO QAM 04/21/15 [History] Tiotropium [Spiriva] 18 mcg IH QAM 04/21/15 [History] metFORMIN [Glucophage] 1,000 mg PO BID 04/21/15 [History] Atorvastatin Calcium [Lipitor] 40 mg PO DAILY 02/04/16 [History] Buspirone HCl [Buspar] 15 mg PO TID 02/04/16 [History] Montelukast [Singulair] 10 mg PO HS 02/04/16 [History] Oxygen 2 l NS AD PRN 03/17/16 [History] Insulin Glargine [Lantus] 80 unit SQ QAM 03/25/16 [History] Insulin Glargine [Lantus] 90 unit SQ QPM 03/25/16 [History] Albuterol Sulfate [Albuterol Inhaler] 2 puff IH Q4HR PRN 05/01/16 [History] Citalopram Hydrobromide [Citalopram HBr] 20 mg PO DAILY 05/01/16 [History] Ipratropium/Albuterol Neb [Duoneb] 3 ml IH Q6H PRN 05/01/16 [History] Raloxifene [Evista] 60 mg PO DAILY 05/01/16 [History] Aripiprazole [Abilify] 10 mg PO HS tablet 05/03/16 [Rx] Fenofibrate Nanocrystallized [Tricor] 200 mg PO DAILY 06/15/16 [History] Clopidogrel [Plavix] 75 mg PO QAM tablet 06/18/16 [Rx] Buprenorphine [Butrans] 15 mcg TD QWEEK 06/27/16 [History] Bumetanide 2 mg PO DAILY 11/21/16 [History] Aspirin 81 mg PO DAILY #60 tab.chew 12/06/16 [Rx] Nystatin POWDER [Nystop] 1 appl TP BID 12/14/16 [History] metOLazone [Zaroxolyn] 5 mg PO Q48H 12/31/16 [History] Insulin ASPART [NovoLOG] 2 - 10 unit SQ TIDWM 03/07/17 [History] Potassium Chloride 20 meq PO BID 03/07/17 [History] Tizanidine HCl [Zanaflex] 4 mg PO TID PRN 03/07/17 [History] Metoprolol [Lopressor] 25 mg PO BID tab 03/10/17 [Rx] Gabapentin [Neurontin] 800 mg PO TID #20 03/26/17 [Rx] Mag Hydrox/Al Hydrox/Simeth [Maalox] 30 ml PO Q6H PRN 30 Days 03/26/17 [Rx] Magnesium Oxide [Mag-Ox] 400 mg PO BID tab 03/26/17 [Rx] Omeprazole [PriLOSEC] 20 mg PO DAILY@0630 03/26/17 [Rx] OxyCODONE/APAP 5/325 [Percocet 5/325 MG] 1 tab PO Q4H PRN #15 03/26/17 [Rx] Polyethylene Glycol 3350 [MiraLAX] 17 gm PO DAILY PRN #20 powd.pack 03/26/17 [Rx ] Sennosides/Docusate Sodium [Senna Plus] 2 each PO BID #30 tablet 03/26/17 [Rx] clonazePAM [Klonopin] 1 mg PO TID #20 tablet 03/26/17 [Rx] Amoxicillin/Clavulanate [Augmentin] 875 mg PO BIDWM #20 tablet 04/08/17 [Rx] Isosorbide MONOnitrate (24 HR) [Imdur] 60 mg PO DAILY #30 04/08/17 [Rx] Allergies/Adverse Reactions: Allergies No Known Allergies Allergy (Verified 03/23/17 11:28) Certification: Further, I certify that my clinical findings support that this patient is homebound (i.e. absences from home require considerable and taxing effort and are for medical reasons or holiness services or infrequently or short duration when for other reasons) because: Homebound Reason: Patient requires assistance of a person or device to safely leave home, Leaving home requires considerable and taxing effort due to condition Attestation: My signature below is to certify that this patient is under my care and that I, or nurse practitioner, or a physician's accounting administrative assistant working with me, has a face-to -face encounter with this patient.
--- NOTE | 2017-04-19 12:08 | Invasive Diagnostic Lab ---
Name: Claire Lynch Date of Study: 04/07/2017 Date: 1955 Ht: 152.0 cm /59.8 in Medical Record#: [id number] Age: 61 Wt: 107. kg / 235.89 lb Account/Order#: [id number] Gender: Female BSA: 2. Order #: [id number] Fluoro Dose: 459 mGy BMI: 46.31 Procedure Physician: Mario Anthony DO Referring MD: Referring MD: Procedures Performed: LEFT HEART CATH Indications: Unstable Angina, Coronary Artery Disease Impressions: Stent sites patent in mid RCA, mild diffuse disease in distal RCA, stent sites proximal LAD widely patent, mild non-obstructive disease in Cx, normal LV systolic function with EF 55% Recommendations: Aggressive risk factor modification. Optimal medical therapy of patient's disease. Suggest searching for non-cardiac source of chest pain. History/Risk Factors: COPD, CAD, HLD, TIA Diabetes Hypertension Dyslipidemia CHF Chronic Lung Disease Procedure Access obtained in the right Femoral artery by percutaneous puncture Complications: None Contrast: Isovue 75ml Hemodynamics: Pressures Site Systolic/ A Wave Diastolic/ V Wave End Diastolic/ Mean HR LV 142 5 13 64 LV 130 3 11 67 AO 138 62 90 65 AO 121 56 84 68 AO 106 51 71 73 AO 125 51 80 70 LV Ventriculography Ejection Method: LV Gram Ejection Fraction: 55% Wall Motion: SOARES Anterobasal Normal Anterolateral Normal Apical: Normal Inferoapical Normal Inferobasal Normal Coronary Dominance: right Lesion Findings/Interventions * Left Main Coronary Artery The LMCA is angiographically free of disease. * Left Anterior Descending The LAD is angiographically free of disease. The Mid LAD has patent stents present from a previous procedure. The 1st Diagonal is angiographically free of disease. * Circumflex The Circumflex is angiographically free of disease. The 1st Marginal is angiographically free of disease. * Right Coronary Artery The Mid RCA has patent stents present from a previous procedure. There is a 30% stenosis in the Distal RCA. Updated by Mario Anthony DO on 04/19/2017 11:31:28 AM Mario Anthony DO electronically signed on 04/19/2017 11:32:55 AM with status of Final
== END 2017-04-08 12:48 | disposition home health service (06) ==
LOC: EMEROO 04:02 → 3BNU 04:02
PROVIDERS: ADMIT Internal Medicine; ATTEND Nurse Practitioner Family

== ENCOUNTER 2017-04-27 18:43 | Inpatient (IN) ==
--- NOTE | 2017-04-27 18:48 | Emergency Department Note ---
Disposition Clinical Impression: Transient cerebral ischemia Qualifiers: Transient cerebral ischemia type: unspecified Qualified Code(s): G45.9 - Transient cerebral ischemic attack, unspecified Chest pain Qualifiers: Chest pain type: unspecified Qualified Code(s): R07.9 - Chest pain, unspecified Disposition: Admitted As Inpatient Time of Disposition: 20:11 Neuro HPI - General Chief Complaint: ED Neuro Symptoms/Deficit Stated Complaint: chest pain/left sided weakness Time Seen by Provider: 04/27/17 18:44 Source: patient Mode of arrival: EMS Limitations: no limitations Nursing Notes Reviewed: Yes Vital Signs Reviewed: Yes - History of Present Illness HPI Narrative: 61-year-old female with history of TIA, CAD with 4 stents placed roughly 3 weeks ago, arrives to [facility] emergency department complaining of left upper extremity paresthesias, numbness in her tongue as well as weakness in left lower extremity. The patient states that yesterday she began experiencing nausea without any vomiting. She states that earlier today she began experiencing chest pain. The patient states that approximately at 5 PM this evening she began experiencing these paresthesias in left upper and lower extremities. The patient states this occurred roughly 1.75 hours prior to arrival in the emergency department. The patient still admits to a mild amount of chest pain at this time but states that she is more concerned about her left upper extremity weakness and her tongue numbness. The patient was administered aspirin and nitroglycerin in route with no relief of her symptoms. Onset of Symptoms Date: 04/27/17 Onset of Symptoms Time: 17:00 Symptom Onset Unknown: No Location: left face, left arm, left leg History of same: Yes Severity: mild Quality: weakness, numbness, tingling Symptoms Improving: No Improves with: none Worsens with: none Context: sudden onset Associated symptoms: Reports: chest pain, headaches Treatments Prior to Arrival: IV, Aspirin, other (Nitroglycerin) - Related Data Home Medications: Home Medications Medication Instructions Recorded Confirmed Budesonide/Formoterol 160/4.5 2 puff IH BIDR 04/21/15 04/27/17 [Symbicort] Levothyroxine [Synthroid] 100 mcg PO QAM 04/21/15 04/27/17 Tiotropium [Spiriva] 18 mcg IH QAM 04/21/15 04/27/17 metFORMIN [Glucophage] 1,000 mg PO BID 04/21/15 04/27/17 Atorvastatin Calcium [Lipitor] 40 mg PO DAILY 02/04/16 04/27/17 Montelukast [Singulair] 10 mg PO HS 02/04/16 04/27/17 Oxygen 2 l NS AD PRN 03/17/16 04/27/17 Insulin Glargine [Lantus] 80 unit SQ QPM 03/25/16 04/27/17 Insulin Glargine [Lantus] 90 unit SQ QAM 03/25/16 04/27/17 Albuterol Sulfate [Albuterol 2 puff IH Q4HR PRN 05/01/16 04/27/17 Inhaler] Citalopram Hydrobromide 40 mg PO DAILY 05/01/16 04/27/17 [Citalopram HBr] Ipratropium/Albuterol Neb [Duoneb] 3 ml IH Q6H PRN 05/01/16 04/27/17 Raloxifene [Evista] 60 mg PO DAILY 05/01/16 04/27/17 Fenofibrate Nanocrystallized 145 mg PO DAILY 06/15/16 04/27/17 [Tricor] Bumetanide 2 mg PO BID 11/21/16 04/27/17 Nystatin POWDER [Nystop] 1 appl TP BID 12/14/16 04/27/17 metOLazone [Zaroxolyn] 5 mg PO Q48H 12/31/16 04/27/17 Insulin ASPART [NovoLOG] 2 - 10 unit SQ TIDWM 03/07/17 04/27/17 Potassium Chloride 20 meq PO BID 03/07/17 04/27/17 Tizanidine HCl [Zanaflex] 4 mg PO TID PRN 03/07/17 04/27/17 Amlodipine Besylate 2.5 mg PO DAILY 04/27/17 04/27/17 Cholecalciferol (D-3) [Vitamin D] 1,000 unit PO DAILY 04/27/17 04/27/17 Metoclopramide [Reglan] 10 mg PO TID 04/27/17 04/27/17 Metoprolol XL (24 HR) Succ [Toprol 50 mg PO DAILY 04/27/17 04/27/17 XL] Omeprazole [PriLOSEC] 20 mg PO BID 04/27/17 04/27/17 Promethazine [Phenergan] 25 mg PO BID PRN 04/27/17 04/27/17 Tramadol HCl [Ultram] 50 mg PO TID PRN 04/27/17 04/27/17 Previous Rx's Medication Instructions Recorded Aripiprazole [Abilify] 10 mg PO HS tablet 05/03/16 Clopidogrel [Plavix] 75 mg PO QAM tablet 06/18/16 Aspirin 81 mg PO DAILY #60 tab.chew 12/06/16 Gabapentin [Neurontin] 800 mg PO TID #20 03/26/17 Mag Hydrox/Al Hydrox/Simeth 30 ml PO Q6H PRN 30 Days 03/26/17 [Maalox] Magnesium Oxide [Mag-Ox] 400 mg PO BID tab 03/26/17 OxyCODONE/APAP 5/325 [Percocet 1 tab PO Q4H PRN #15 03/26/17 5/325 MG] clonazePAM [Klonopin] 1 mg PO TID #20 tablet 03/26/17 Isosorbide MONOnitrate (24 HR) 60 mg PO DAILY #30 04/08/17 [Imdur] Allergies/Adverse Reactions: Allergies Allergy/AdvReac Type Severity Reaction Status Date / Time No Known Allergies Allergy Verified 03/23/17 11:28 All systems ED: reviewed and negative except as stated. Constitutional: Denies: fever, chills, weakness, weight change Eyes: Denies: eye pain, eye discharge, vision change ENT ED: Denies: ear pain, throat pain, dental pain, hearing loss, epistaxis, congestion, dysphagia Cardiovascular: Reports: chest pain. Denies: palpitations, dyspnea on exertion , edema, syncope Respiratory: Reports: dyspnea. Denies: cough, wheezes, hemoptysis, stridor Gastrointestinal: Reports: nausea. Denies: abdominal pain, vomiting, diarrhea, constipation, hematemesis, melena, hematochezia Genitourinary: Denies: dysuria, frequency, hematuria, discharge Musculoskeletal: Denies: back pain, neck pain, arthralgia, myalgia Integumentary: Denies: rash, abrasion, lesions Neurological: Reports: headache, weakness, numbness, paresthesias. Denies: confusion, abnormal gait, vertigo Past Medical History - Past Medical History Attestation: Yes The following information was validated with the patient. 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 - Social History Smoking Status: Former smoker Smokeless Tobacco Status: No Alcohol use: Reports: none Drug use: Reports: none Physical Exam - General Limitations: no limitations General appearance: alert, in no apparent distress - Head Head exam: atraumatic, normocephalic, normal inspection - Eye Eye exam: Present: normal appearance, PERRL, EOMI - ENT ENT exam: normal exam, normal oropharynx, mucous membranes moist - Neck Neck exam: Present: normal inspection, full ROM, trachea midline - Chest Chest inspection: Present: normal inspection, symmetric chest wall rise - Respiratory Respiratory exam: Present: normal lung sounds bilaterally - Cardiovascular Cardiovascular exam: Present: regular rate, normal rhythm, normal heart sounds - Abdominal Exam Abdominal exam: Present: soft, Non-Tender. Absent: tenderness, distention, guarding, rebound, rigidity - Extremities Exam Extremities exam: Present: normal inspection. Absent: tenderness, pedal edema - Neurological Exam Neurological exam: Present: alert, oriented X3, motor sensory deficit. Absent: CN II-XII intact - Expanded Neurological Exam Patient oriented to: Present: person, place, time Speech: Present: fluid speech Cranial nerves: EOM function (II, III, IV, ): Normal, facial sensation (V): Abnormal Left, facial palsy (VII): Abnormal Left, gag reflex (IX): Normal, spinal accessory function (XI): Normal, tongue deviation (XII): Normal Cerebellar function: finger to nose: Normal Motor strength - LUE: 4/5 Motor strength - RUE: 4/5 Motor strength - LLE: 2/5 Motor strength - RLE: 5/5 Upper motor neuron exam: carole neglect: Absent bilaterally Sensory exam upper extremity: light touch: Abnormal Left Sensory exam lower extremity: light touch: Abnormal Left DTR: patellar (L): 2+, patellar (R): 2+ Coma Scale Eye Opening: Spontaneous Coma Scale Motor Response: Obeys Commands Coma Scale Verbal Response: Oriented Coma Scale Total: 15 - Skin Skin exam: Present: warm, dry, intact, normal color Course - Reevaluation(s) Reevaluation #1: After stroke alert called, the patient received a proper care according to protocol. [facility] stroke neurologist was on telemetry stroke screen and agreed that patient was not a candidate for TPA at this time. The patient does have an NIH of 3-4 but her left lower extremity weakness is improving. We will continue a cardiac workup on the patient. The patient will be admitted to [facility] for ACS concerns as well as further neurologic workup. Time: 19:16 - Consultations Consultation #1: We spoke to Dr. Giron in neurology who agreed that the patient should be admitted to the hospital for further TIA versus stroke workup. We administered aspirin via EMS. No further recommendations given. Time: 19:34 Vital Signs Temperature 98.1 F 04/27/17 18:44 Pulse Rate 0 04/27/17 18:44 Respiratory Rate 0 04/27/17 18:44 Blood Pressure 0/0 04/27/17 18:44 O2 Sat by Pulse Oximetry 0 04/27/17 18:44 Temperature 98.1 F 04/27/17 18:44 Pulse Rate 80 04/27/17 20:39 Respiratory Rate 18 04/27/17 20:39 Blood Pressure 106/72 04/27/17 20:39 O2 Sat by Pulse Oximetry 99 04/27/17 20:39 Oxygen Delivery Oxygen Delivery Room Air Neuro Symptoms/Deficit - MDM Narrative Medical decision making narrative: The patient's initial presentation NIH was 3-4. Upon speaking with the neurologist at [facility] her NIH began to improve with an NIH of 1-2 with her left lower extremity paresthesias and weakness improving. [facility] neurologist doctor in did not recommend TPA at this time. We will admit the patient to [facility] for further workup for neurologic deficits as well as ACS rule out. Patient made aware and agrees to plan. No further recommendations at this time per neurology. The patient received one nitroglycerin that did not relieve her pain. The patient is resting comfortably in the bed at this time. She states that she also received aspirin by EMS as well. We will admit the patient at this time. Accepted by Dr. Julian. - Medical Records Medical records reviewed: Yes I reviewed the patient's medical records. - Lab Data Lab results reviewed: Yes I reviewed the patient's lab results. Result diagrams: 04/27/17 18:54 04/27/17 18:54 Lab Results 04/27/17 04/27/17 04/27/17 Range/Units 18:54 18:54 18:54 WBC 10.8 (4.3-11.1) K/mcL RBC 4.47 (3.82-4.97) M/mcL Hgb 11.1 L (11.5-15.4) g/dL Hct 36.7 (35.3-44.9) % MCV 82.1 L (83.0-100.0) fL MCH 24.8 L (28.0-33.3) pg MCHC 30.2 L (31.6-35.5) g/dL RDW 14.9 H (11.5-14.5) % Plt Count 287 (140-400) K/mcL MPV 11.2 (9.4-12.4) fL Immature Gran % 0.8 (0-4) % Seg Neutrophils % 65.3 % Lymphocytes % 25.4 % Monocytes % 5.7 % Eosinophils % 2.1 % Basophils % 0.7 % Neutrophils # 7.0 (1.6-8.9) K/mcL Lymphocytes # 2.7 (0.6-4.6) K/mcL Monocytes # 0.6 (0.0-1.3) K/mcL Eosinophils # 0.2 (0.0-0.6) K/mcL Basophils # 0.1 (0.0-0.2) K/mcL Nucleated RBCs/100 WBC 0.2 H (0) /100 WBC Immature Plt Fraction 7.6 H (1.1-6.1) % PT 10.1 (9.4-12.1) Seconds INR 0.9 APTT 26.1 (26.0-36.0) Seconds Sodium 141 (136-145) mEq/L Potassium 3.1 L (3.5-4.5) mEq/L Chloride 92 L (98-109) mEq/L Carbon Dioxide 34 H (19-29) mEq/L BUN 41 H (7-20) mg/dL Creatinine 1.34 H (0.57-1.11) mg/dL Est GFR ( Amer) 49 L (> 60) Est GFR (Non-Af Amer) 40 L (> 60) BUN/Creatinine Ratio 31 H (6-26) Glucose 146 H (70-99) mg/dL Calculated Osmolality 305 H (280-300) Calcium 10.1 (8.6-10.8) mg/dL Troponin I (0-0.03) ng/mL Urine Color (Yellow) Urine Clarity (Clear) Urine pH (5.0-8.0) pH Units Ur Specific [place] (1.010-1.025) Urine Protein (Neg-Trace) mg/dL Urine Glucose (UA) (Normal) mg/dL Urine Ketones (Negative) mg/dL Urine Blood (Negative) Urine Nitrite (Negative) Urine Bilirubin (Negative) Urine Urobilinogen (Normal) mg/dL Ur Leukocyte Esterase (Negative) Urine Microscopic RBC (0-3) per hpf Urine Microscopic WBC (0-3) per hpf Ur Squamous Epith Cells (None-Few) per lpf Urine Bacteria (None-Few) per hpf Hyaline Casts (None-Few) per lpf Ur Culture Indicated? (NO) 04/27/17 04/27/17 Range/Units 18:54 19:44 WBC (4.3-11.1) K/mcL RBC (3.82-4.97) M/mcL Hgb (11.5-15.4) g/dL Hct (35.3-44.9) % MCV (83.0-100.0) fL MCH (28.0-33.3) pg MCHC (31.6-35.5) g/dL RDW (11.5-14.5) % Plt Count (140-400) K/mcL MPV (9.4-12.4) fL Immature Gran % (0-4) % Seg Neutrophils % % Lymphocytes % % Monocytes % % Eosinophils % % Basophils % % Neutrophils # (1.6-8.9) K/mcL Lymphocytes # (0.6-4.6) K/mcL Monocytes # (0.0-1.3) K/mcL Eosinophils # (0.0-0.6) K/mcL Basophils # (0.0-0.2) K/mcL Nucleated RBCs/100 WBC (0) /100 WBC Immature Plt Fraction (1.1-6.1) % PT (9.4-12.1) Seconds INR APTT (26.0-36.0) Seconds Sodium (136-145) mEq/L Potassium (3.5-4.5) mEq/L Chloride (98-109) mEq/L Carbon Dioxide (19-29) mEq/L BUN (7-20) mg/dL Creatinine (0.57-1.11) mg/dL Est GFR ( Amer) (> 60) Est GFR (Non-Af Amer) (> 60) BUN/Creatinine Ratio (6-26) Glucose (70-99) mg/dL Calculated Osmolality (280-300) Calcium (8.6-10.8) mg/dL Troponin I 0.00 (0-0.03) ng/mL Urine Color Yellow (Yellow) Urine Clarity Clear (Clear) Urine pH 6.5 (5.0-8.0) pH Units Ur Specific [place] 1.014 (1.010-1.025) Urine Protein Negative (Neg-Trace) mg/dL Urine Glucose (UA) Normal (Normal) mg/dL Urine Ketones Negative (Negative) mg/dL Urine Blood Negative (Negative) Urine Nitrite Positive A (Negative) Urine Bilirubin Negative (Negative) Urine Urobilinogen Normal (Normal) mg/dL Ur Leukocyte Esterase Small H (Negative) Urine Microscopic RBC 3-5 H (0-3) per hpf Urine Microscopic WBC 15-30 H (0-3) per hpf Ur Squamous Epith Cells Many H (None-Few) per lpf Urine Bacteria Many H (None-Few) per hpf Hyaline Casts None Seen (None-Few) per lpf Ur Culture Indicated? YES A (NO) - EKG Data EKG attestation: Yes I reviewed and interpreted this EKG. EKG results narrative: Heart rate 10 7 bpm. DE interval 151 ms. QTc 443 ms. Normal axis. Sinus tachycardia. No ST elevation or ST depression noted. EKG is similar in appearance to EKG from 04/07/2017. NIH Stroke Scale - Level of Consciousness LOC: Alert - LOC Questions LOC Questions: Answers both correctly - LOC Commands LOC Commands: Performs both correctly - Best Gaze Best Gaze: Normal - Visual Visual: No visual loss - Facial Palsy Facial Palsy: Minor asymmetry on smiling, flattened nasolabial fold - Motor Arms Motor Arm-Left: No drift for 10 seconds Motor Arm-Right: No drift for 10 seconds - Motor Legs Motor Leg-Left: Some effort against gravity, limb drifts to bed Motor Leg-Right: No drift for 5 seconds - Limb Ataxia Limb Ataxia: Normal, No Ataxia - Sensory Sensory: Mild to moderate loss, "not as sharp" - Best Language Best Language: No aphasia - Dysarthria Dysarthria: Normal - Extinction and Inattention Extinction and Inattention: Normal - NIHSS Total Score NIHSS Total Score: 4 Critical Care Time Critical Care Time: Yes Total Critical Care Time: 45 Attestation: Critical care performed: Time is exclusive of separately billable procedures. Time includes: direct patient care, patient reassessment, coordination of patient care, interpretation of data (laboratory data, radiology data, and respiratory data), review of patient's medical records, medical consultation and documentation of patient care. Procedures included in critical care time: Procedures excluded from critical care time: Attestation Statement - Attestation Attestation: I, Suleman Ponce MD, personally evaluated this patient and discussed their management with the resident physician. I reviewed the resident's note and agree with the documented findings, medical decision making, and plan of care. 61-year-old female presents to the emergency department with a complaint of left arm numbness and pain which started approximately 5 PM. She states also that about the same time her tongue felt numb in her face felt numb. The left arm became weak. She admits to some mild weakness in the left leg. She has a prior history of a TIA. She also developed chest pain about the same time. Some headache and some nausea. No vomiting. No difficulty with speech or swallowing. On examination patient is a well-developed well-nourished female in no acute distress. She is alert and oriented 3. There is no cyanosis or diaphoresis. There is some mild left facial droop. No deviation of the tongue. 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 Chest is nontender to palpation. Breath sounds are clear and equal bilaterally. Heart regular rate and rhythm. Head CT negative. Stroke alert was called and after evaluation by the stroke neurologist from [facility] was decided the patient was not a TPA candidate. The neurologist here, Dr. Giron, was consulted and patient discussed with him. The hospitalist, Dr. Julian, was consulted and accepted admission the patient.
--- NOTE | 2017-04-27 18:52 | Emergency Department Note ---
START Narrative - START START: 61 year old female presents to the ED with complaints of left sided upper exremtity and lower extremity sensation loss, appers to be more dull. NIH 4: nasolabial flattening, lef sided sensation loss, and lower extremity drift but some effort against gravity. We will call STROKE ALERT.
[2017-04-27 19:00] LABS: Basophils # 0.1 K/mcL (0.0-0.2); Basophils % 0.7 %; Eosinophils # 0.2 K/mcL (0.0-0.6); Eosinophils % 2.1 %; Hematocrit 36.7 % (35.3-44.9); Hemoglobin 11.1 g/dL (11.5-15.4); Immature Granulocytes % 0.8 % (0-4); Immature Platelets 7.6 % (1.1-6.1); Lymphocytes # 2.7 K/mcL (0.6-4.6); Lymphocytes % 25.4 %; Mean Corpuscular HGB Conc 30.2 g/dL (31.6-35.5); Mean Corpuscular Hemoglobin 24.8 pg (28.0-33.3); Mean Corpuscular Volume 82.1 fL (83.0-100.0); Mean Platelet Volume 11.2 fL (9.4-12.4); Monocytes # 0.6 K/mcL (0.0-1.3); Monocytes % 5.7 %; Nucleated Red Blood Cells 0.2 /100 WBC (0); Platelet Count 287 K/mcL (140-400); Red Blood Count 4.47 M/mcL (3.82-4.97); Red Cell Distribution Width 14.9 % (11.5-14.5); Segmented Neutrophils % 65.3 %
[2017-04-27 19:07] LABS: INR 0.9; Prothrombin Time 10.1 Seconds (9.4-12.1)
[2017-04-27 19:10] LABS: Activated Partial Thrombo Time 26.1 Seconds (26.0-36.0)
[2017-04-27 19:15] LABS: Calcium 10.1 mg/dL (8.6-10.8); Potassium 3.1 mEq/L (3.5-4.5)
[2017-04-27] MEDS ORDERED: 0.9 % Sodium Chloride 1,000 ML IVC ONE (19:27)
[2017-04-27] MEDS ORDERED: Ondansetron 4 MG/2 ML VIAL IVP ONE (19:46)
[2017-04-27 19:56] LABS: Bilirubin,Urine Negative (Negative); Blood,Urine Negative (Negative); Clarity,Urine Clear (Clear); Color,Urine Yellow (Yellow); Glucose,Urine (UA) Normal (Normal); Ketones,Urine Negative (Negative); Leukocyte Esterase,Urine Small (Negative); Nitrite,Urine Positive (Negative); PH,Urine 6.5 pH Units (5.0-8.0); Protein,Urine Negative (Neg-Trace); Specific Gravity,Urine 1.014 (1.010-1.025); Urobilinogen,Urine Normal (Normal)
[2017-04-27 19:58] LABS: Bacteria,Urine Many per hpf (None-Few); Hyaline Casts,Urine None Seen per lpf (None-Few); Squamous Epithelial Cell,Urine Many per lpf (None-Few); WBC,Urine 15-30 per hpf (0-3)
[2017-04-27] MEDS ORDERED: *HR* Morphine 2 MG/ML SYRINGE IVP ONE (20:02)
[2017-04-27] MEDS ORDERED: *HR* HYDROcodone/Acet 5/325 mg TABLET PO PRN (22:59)
[2017-04-27] MEDS ORDERED: Naloxone 0.4 MG/ML INJ IVP PRN (22:59)
[2017-04-27] MEDS ORDERED: Acetaminophen 325 MG TABLET PO PRN (22:59)
[2017-04-27] MEDS ORDERED: *HR* Morphine 2 MG/ML SYRINGE IVP PRN (22:59)
[2017-04-27] MEDS ORDERED: *HR* OxyCODONE/APAP 5/325 TABLET PO PRN ×2 (23:08→23:19)
[2017-04-27] MEDS ORDERED: NON-FORMULARY MEDICATION 1 EACH EACH (Insulin Glargine [Lantus] 80 UNIT) SQ SCH (23:15)
[2017-04-27] MEDS ORDERED: metOLazone 5 MG TABLET PO SCH (23:15)
[2017-04-27] MEDS ORDERED: Bumetanide 1 MG TABLET PO SCH (23:15)
[2017-04-27] MEDS ORDERED: Dextrose Gel 15 GM PO PRN ×2 (23:20)
[2017-04-27] MEDS ORDERED: *HR* Dextrose 50 % in Water (Syg) 50 ML SYRINGE IVP PRN (23:20)
[2017-04-27] MEDS ORDERED: D5% in Water 1,000 ML IVC PRN (23:20)
--- NOTE | 2017-04-27 23:25 | Internal Med History&Physical ---
<Ashok Gross - Last Filed: 04/28/17 00:52> Date of Encounter: 04/28/17 Time of Encounter: 22:30 Assessment and Plan (1) Transient cerebral ischemia Current visit: Yes Status: Acute Assess: Patient presents with earlier symptoms of transient cerebral ischemia. Patient reports she has a history of TIAs. Upon admission to ED. Patient's initial presentation NIH was 3-4. With neurologist that her sugar NIH began to improve to 1-2 with improvement of left lower extremity paresthesias and weakness. [facility] neurology did not recommend TPA at this time. Upon examination patient has slight facial asymmetry on right side of mouth. Upon examination, patient was found to be neurologically intact bilaterally. Due to due to facial asymmetry, patient failed dysphagia screen and will be kept nothing by mouth until speech therapy can see and assess patient. Plan: Speech therapy consult ordered Will hold patient's HS and AM meds until seen/cleared by Speech Therapy Patient to be strict NPO Continue neuro screening per NIHSS protocol Continue patient's aspirin therapy Neurology consult ordered Qualifiers: Transient cerebral ischemia type: unspecified Qualified Code(s): G45.9 - Transient cerebral ischemic attack, unspecified (2) Chest pain Current visit: Yes Status: Acute Assess: Patient presents with report chest pain with nausea and radiation to left arm. Patient also states her tongue became numb. Patient states this began earlier today. She has a history of CHF, COPD, CAD, GERD, HLD, HTN, and TIAs. Patient also has a history of angioplasty with placement of 4 stents previously. Patient is a former smoker smoking 2-3 packs per day and reportedly quitting one year ago. Initial troponin on admission 0.00. Will resume patient's PO medications once dysphagia screening is passed with Speech Therapy. Plan: Trend troponins 2 Echocardiogram ordered Continuous cardiac telemetry Nitroglycerin when necessary Continue patient's aspirin therapy Continue patient's Plavix Continue patient's HLD and HTN medications Qualifiers: Chest pain type: other chest pain Qualified Code(s): R07.89 - Other chest pain; R07.8 - Other chest pain (3) UTI (urinary tract infection) Current visit: Yes Status: Acute Assess: Patient presents with suspected UTI based on report of having chronic UTIs in the past, being seen recently for UTI, and urinalysis which is indicative of urine culture. Plan: IV vancomycin with pharmacy dosing IV Zosyn 3.375 gm Q8 Monitor follow-up labs and urine culture results to adjust antibiotic coverage if necessary Qualifiers: Urinary tract infection type: site unspecified Hematuria presence: without hematuria Qualified Code(s): N39.0 - Urinary tract infection, site not specified (4) Bilateral lower leg cellulitis Current visit: Yes Status: Acute Assess: Patient presents with bilateral erythemia of LEs. Patient reports she has a history of bilateral lower leg cellulitis. Legs do not currently have any discharge. Plan: IV vancomycin with pharmacy dosing and IV Zosyn 3.375 every 8 ordered for UTI and cellulitis coverage Monitor patient and follow-up labs for signs of increased infection Will consider Doppler imaging of LEs in a.m. (5) Hypokalemia Current visit: Yes Status: Acute Assess: Patient presents with acute hypokalemia with potassium level 3.1 on admission. Plan: Potassium rider ordered Follow-up labs ordered to monitor patient's potassium level Will add PO potassium if hypokalemia improves Patient placed on continuous cardiac telemetry (6) Shortness of breath Current visit: Yes Status: Acute Assess: Patient presents with acute shortness of breath and weakness for the past 24 hours related to current chest pain and suspected UTI. Plan: Supplemental O2 ordered with titration if SPO2 less than 92% Continuous SpO2 monitoring DuoNebs ordered Q4 scheduled Falls precautions/up with assist/bed rest with bedside commode with assist only (7) COPD (chronic obstructive pulmonary disease) Current visit: Yes Status: Chronic Assess: Patient presents with history of chronic obstructive pulmonary disease. Patient is currently experiencing some shortness of breath and has a history of tobacco abuse with smoking 2-3 packs per day. Patient reports quitting one year ago. Plan: DuoNebs every 4 scheduled Supplemental O2 with titration if SPO2 less than 92% Continuous SPO2 monitoring Qualifiers: COPD type: emphysema Emphysema type: unspecified Qualified Code(s): J43.9 - Emphysema, unspecified (8) Hyperglycemia Current visit: Yes Status: Chronic Assess: Patient presents with acute hyperglycemia on admission with blood glucose of 146. Plan: Diabetes education ordered A1c ordered Blood glucose monitoring before meals and at bedtime Will continue patient's a.m. and p.m. insulin We will hold patient's metformin Low-dose correction insulin sliding scale ordered with hypoglycemia protocol (9) Type 2 diabetes mellitus Current visit: Yes Status: Chronic Assess: Patient presents with history of chronic diabetes with insulin dependency. Plan: A1c ordered Blood glucose monitoring before meals and at bedtime Will continue patient's a.m. and p.m. 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 Patient is currently experiencing chest pain and sinus tachycardia on EKG. Initial troponin 0.00. Plan: Continue patient's Plavix and aspirin therapy Continue patient's HTN and HLD medications Trend troponins 2 Patient to be placed on continuous cardiac telemetry Echocardiogram ordered Qualifiers: Coronary Disease-Associated Artery/Lesion type: [place] artery [place] vs. transplanted heart: [place] heart Associated angina: with unspecified angina Qualified Code(s): I25.119 - Atherosclerotic heart disease of [place] coronary artery with unspecified angina pectoris (11) CHF (congestive heart failure) Current visit: Yes Status: Chronic Assess: Patient presents with history of chronic congestive heart failure. Patient is currently asymptomatic for CHF and is not experiencing fluid overload or wheezes upon auscultation. Plan: Continue patient's bumetanide and metolazone Monitor I&O and daily weight Qualifiers: Congestive heart failure type: diastolic Congestive heart failure chronicity: chronic Qualified Code(s): I50.32 - Chronic diastolic (congestive ) heart failure (12) GERD (gastroesophageal reflux disease) Current visit: Yes Status: Chronic Assess: Patient presents with history of chronic gastroesophageal reflux disease. Plan: IVP Zofran when necessary ordered IVP Protonix 40 mg twice a day ordered Qualifiers: Esophagitis presence: without esophagitis Qualified Code(s): K21.9 - Gastro -esophageal reflux disease without esophagitis (13) HLD (hyperlipidemia) Current visit: Yes Status: Chronic Assess: Patient presents with history of chronic hyperlipidemia. Plan: Lipid panel ordered Will continue patient's Lipitor and TriCor Qualifiers: Hyperlipidemia type: pure hypercholesterolemia Qualified Code(s): E78.00 - Pure hypercholesterolemia, unspecified; E78.0 - Pure hypercholesterolemia (14) HTN (hypertension) Current visit: Yes Status: Chronic Assess: Reason presents with history of chronic hypertension. Plan: Monitor patient vital signs Continue patient's Imdur, metoprolol, metolazone, and amlodipine Qualifiers: Hypertension type: essential hypertension Qualified Code(s): I10 - Essential (primary) hypertension (15) DVT prophylaxis Current visit: Yes Status: Acute Assess: Patient placed on DVT prophylaxis due to current admission protocol and bedrest status. Plan: Heparin 5000 units SQ every 8 ordered Internal Medicine - H&P: HPI Chief complaint: Chest pain/Neuro deficits Admitted From: Emergency Dept Plans for Post Hospital Care: Home History of present illness: Ms. Lynch is a 61 year old female who presents from the ED with chief complaint of chest pain and transient cerebral ischemic attack. Patient has a history of CAD and angioplasty with placement of 4 stents approximately 3 weeks ago. Patient states her symptoms began earlier today with nausea but no vomiting. She also states she began experiencing chest pain with radiation to her left arm. Patient was given aspirin and nitroglycerin en route to the ED with no relief of her symptoms. Patient denies any recent illness, fever, chills, weakness, changes in vision, palpitations, cough, abdominal pain, vomiting, diarrhea, constipation, unusual bleeding, confusion, abnormal gait, presyncope, or syncope. Patient's medical history includes arthritis, CHF, COPD , CAD, diabetes with insulin dependency, GERD, HLD, HTN, osteoporosis, thyroid disease, TIA, and venous stasis. Patient is a former smoker reporting she smoked 2-3 packs per day and quit one year ago. Patient also reports she has a history of chronic UTIs and chronic bilateral cellulitis of the lower extremities. On examination, patient's lower extremities appear erythematous without discharge. Urinalysis in the ED is indicative of possible UTI. Upon admission to the ED, patient initial presentation NIH was 3-4. Upon speaking with neurologists at [facility], her NIH began to improve with an NIH of 1-2 with improvement of left lower extremity paresthesias and weakness. Neurology consult placed while patient was in ED with no further recommendations except for NIHSS protocol. Upon examination, patient has slight facial asymmetry of right upper lip, otherwise patient was found to be neurologically intact with equal strength bilaterally. Patient is at high risk for cardiac event based on current symptoms, previous history, and risk factors as well as possible infection status and will be placed as inpatient with orders for troponins trended 2, continuous cardiac telemetry, and [facility] protocol, neurology consult , echocardiogram, nothing by mouth status until dysphasia screening passed, DuoNeb every 4 scheduled, IV vancomycin with pharmacy dosing and IV Zosyn 3.375 gm every 8 hours for infection coverage, speech therapy consult for dysphasia screening, and falls/safety precautions to current weakness. Consult social work, PT, and OT placed. Patient is to be monitored closely for signs of increasing infection, cardiac, and/or respiratory distress. Time spent with patient greater than 50 minutes. Past Med Surg Social Fam HX - Past Medical History Source: patient Medical history: arthritis, CHF, COPD, coronary artery disease, diabetes, GERD, hyperlipidemia, hypertension, osteoporosis, thyroid disease, TIA, venous stasis , other Psychiatric history: anxiety, bipolar, depression, panic disorder - Past Surgical History Surgical History: angioplasty/stent (x4), , cholecystectomy, hysterectomy - Social History Smoking Status: Former smoker Packs per day: 2-3 PPD - reports quitting 1 year ago Smokeless Tobacco Status: No Alcohol use: none Drug use: none Current living situation: Home Activity Level: Independent ambulation Recent Out of Country Travel Within the Last 8 Weeks: No Exposure or Possible Exposure to Illness During Travel: No - Family History Father Adopted: No Race: Family Member Ethnicity: Non- Living Status: Age at : 72 Cause of : Kidney failure Hx Family Cardiac Disorders: Yes (HD, HLD, HTN, [place], Triple Bypass) Hx Family Genitourinary Disorders: Yes (Renal disease) Mother Adopted: No Race: Family Member Ethnicity: Non- Living Status: Age at : 70 Cause of : Stroke Hx Family Cardiac Disorders: Yes ([place], HTN, HLD, Strokes x5) Hx Family Endocrine Disorder: Yes (DM) Hx Family Neurologic Disorders: Yes (Strokes) Brother Race: Family Member Ethnicity: Non- Living Status: Age at : 56 Cause of : Kidney failure Hx Family Genitourinary Disorders: Yes (Renal disease) Internal Medicine - H&P: Meds Budesonide/Formoterol 160/4.5 [Symbicort] 2 puff IH BIDR 04/21/15 [History] Levothyroxine [Synthroid] 100 mcg PO QAM 04/21/15 [History] Tiotropium [Spiriva] 18 mcg IH QAM 04/21/15 [History] metFORMIN [Glucophage] 1,000 mg PO BID 04/21/15 [History] Atorvastatin Calcium [Lipitor] 40 mg PO DAILY 02/04/16 [History] Montelukast [Singulair] 10 mg PO HS 02/04/16 [History] Oxygen 2 l NS AD PRN 03/17/16 [History] Insulin Glargine [Lantus] 80 unit SQ QPM 03/25/16 [History] Insulin Glargine [Lantus] 90 unit SQ QAM 03/25/16 [History] Albuterol Sulfate [Albuterol Inhaler] 2 puff IH Q4HR PRN 05/01/16 [History] Citalopram Hydrobromide [Citalopram HBr] 40 mg PO DAILY 05/01/16 [History] Ipratropium/Albuterol Neb [Duoneb] 3 ml IH Q6H PRN 05/01/16 [History] Raloxifene [Evista] 60 mg PO DAILY 05/01/16 [History] Aripiprazole [Abilify] 10 mg PO HS tablet 05/03/16 [Rx] Fenofibrate Nanocrystallized [Tricor] 145 mg PO DAILY 06/15/16 [History] Clopidogrel [Plavix] 75 mg PO QAM tablet 06/18/16 [Rx] Bumetanide 2 mg PO BID 11/21/16 [History] Aspirin 81 mg PO DAILY #60 tab.chew 12/06/16 [Rx] Nystatin POWDER [Nystop] 1 appl TP BID 12/14/16 [History] metOLazone [Zaroxolyn] 5 mg PO Q48H 12/31/16 [History] Insulin ASPART [NovoLOG] 2 - 10 unit SQ TIDWM 03/07/17 [History] Potassium Chloride 20 meq PO BID 03/07/17 [History] Tizanidine HCl [Zanaflex] 4 mg PO TID PRN 03/07/17 [History] Gabapentin [Neurontin] 800 mg PO TID #20 03/26/17 [Rx] Mag Hydrox/Al Hydrox/Simeth [Maalox] 30 ml PO Q6H PRN 30 Days 03/26/17 [Rx] Magnesium Oxide [Mag-Ox] 400 mg PO BID tab 03/26/17 [Rx] OxyCODONE/APAP 5/325 [Percocet 5/325 MG] 1 tab PO Q4H PRN #15 03/26/17 [Rx] clonazePAM [Klonopin] 1 mg PO TID #20 tablet 03/26/17 [Rx] Isosorbide MONOnitrate (24 HR) [Imdur] 60 mg PO DAILY #30 04/08/17 [Rx] Amlodipine Besylate 2.5 mg PO DAILY 04/27/17 [History] Cholecalciferol (D-3) [Vitamin D] 1,000 unit PO DAILY 04/27/17 [History] Metoclopramide [Reglan] 10 mg PO TID 04/27/17 [History] Metoprolol XL (24 HR) Succ [Toprol XL] 50 mg PO DAILY 04/27/17 [History] Omeprazole [PriLOSEC] 20 mg PO BID 04/27/17 [History] Promethazine [Phenergan] 25 mg PO BID PRN 04/27/17 [History] Tramadol HCl [Ultram] 50 mg PO TID PRN 04/27/17 [History] 3 Allergy/AdvReac Type Severity Reaction Status Date / Time No Known Allergies Allergy Verified 03/23/17 11:28 All Systems PM: A 10-system review of systems was performed and is negative for pertinent findings except as documented above in the HPI. - Constitutional Constitutional: as per HPI, weakness, no chills, no fever(s), no night sweats - EENT Eyes: no change in vision, no discharge, no pain, no photophobia Ears: no ear discharge, no ear pain, no tinnitus Nose, mouth and throat: no dysphagia, no nasal discharge, no neck pain, no sore throat - Breasts Breasts: as per HPI - Cardiovascular Cardiovascular ROS IM: as per HPI, chest pain, dyspnea, dyspnea on exertion, lightheadedness (Dizziness) - Respiratory Respiratory: as per HPI, dyspnea, dyspnea on exertion, no cough, no wheezing, no excessive phlegm production - Gastrointestinal Gastrointestinal: as per HPI, nausea, no abdominal pain, no diarrhea, no hematemesis, no hematochezia, no melena, no vomiting - Genitourinary Genitourinary: no change in urinary stream, no dysuria, no flank pain, no hematuria Menstruation: as per HPI, post hysterectomy - Musculoskeletal Musculoskeletal ROS IM: numbness (Bilateral feet d/t neuropathy), tingling ( Bilateral feet d/t neuropathy) - Integumentary Integumentary IM: as per HPI, erythema (Bilateral LEs) - Neurological Neurological ROS: numbness (Bilateral feet d/t neuropathy), tingling (Bilateral feet d/t neuropathy), no confusion, no convulsions, no focal weakness, no tremor (s) - Psychiatric Psychiatric: as per HPI - Endocrine Endocrine IM: as per HPI - Hematologic/Lymphatic Hematologic/Lymphatic: no easy bruising - Allergic/Immunologic Allergic/Immunologic: as per HPI - Constitutional Vitals: Temp Pulse Resp BP Pulse Ox 98.2 F 88 18 110/66 94 04/27/17 22:04 04/27/17 22:04 04/27/17 22:04 04/27/17 22:04 04/27/17 22:04 General appearance: Present: cooperative, A&O X 3, morbidly obese, pleasant, no acute distress, answers questions appropriately - Head Head exam: Present: atraumatic, normocephalic - Eye Eye exam: Present: PERRL, conjuntiva pink, sclera anicteric Pupils: Present: PERRL - ENT ENT exam: Present: normal exam, normal external ear exam - Neck Neck exam general surgery: Present: normal inspection, supple, trachea midline - Respiratory Respiratory exam: Present: CTAB. Absent: accessory muscle use, rales, rhonchi, wheezes - Cardiovascular Cardiovascular exam: Present: tachycardia - GI/Abdominal GI/Abdominal exam: Present: normal bowel sounds, soft, no peritoneal signs. Absent: distended, tenderness - Rectal Rectal exam: Present: deferred - Additional comments: exam deferred. - Extremities Exam Extremities exam: Present: pedal edema, warm, radial pulses palpable and symmetrical (LEs erythematous d/t venous stasis and possible bilateral cellulitis) - Back Exam Back exam: Present: normal inspection - Neurological Exam Neurological exam: Present: CN II-XII intact, oriented X3, no focal deficits. Absent: pronater drift, facial droop, speech deficit - Psychiatric Psychiatric exam: Present: normal affect, normal mood - Skin Skin exam: Present: dry, intact Internal Med - H&P Results - Labs CBC & Chem 7: 04/27/17 18:54 04/27/17 18:54 - EKG Data EKG shows normal: sinus rhythm Rate: tachycardia - EKG Data Prior EKG available for review: yes Interpretation IM: suggestive of ischemia EKG comments: 04/27/17 23:35 EKG dated 04/07/17 shows sinus rhythm with sinus arrhythmia, low QRS voltage in precordial leads, septal myocardial infarction (probably old). EKG dated 04/27/17 shows sinus tachycardia with occasional ventricular premature complexes, low QRS voltage in precordial leads, possible anterior myocardial infarction (probably old). - Diagnostic Studies Chest x-ray Additional comments: Impressions Chest X-Ray 04/27/17 18:45 IMPRESSION: 1. No active pulmonary disease. D/ / Eriberto Mcclain MD / Eriberto Mcclain MD Interpreting Provider: Eriberto Mcclain MD CT scan - head Additional comments: Impressions Head CT 04/27/17 18:45 IMPRESSION: No acute intracranial abnormality. D/ / Titi Valladares MD / Titi Valladares MD Interpreting Provider: Titi Valladares MD <Aleena Pitt W - Last Filed: 04/28/17 06:58> Date of Encounter: 04/28/17 Internal Medicine - H&P: HPI History of present illness: Ms. Lynch is a 61 year old female All Systems PM: A 10-system review of systems was performed and is negative for pertinent findings except as documented above in the HPI. - Constitutional Vitals: Temp Pulse Resp BP Pulse Ox 98.0 F 87 18 129/69 93 04/28/17 03:10 04/28/17 03:10 04/28/17 03:10 04/28/17 03:10 04/28/17 03:10 Internal Med - H&P Results - Labs CBC & Chem 7: 04/28/17 01:18 04/28/17 01:12 Labs: Short CBC 04/28/17 Range/Units 01:18 WBC 11.5 H (4.3-11.1) K/mcL Hgb 10.1 L (11.5-15.4) g/dL Hct 34.6 L (35.3-44.9) % Plt Count 270 (140-400) K/mcL Neutrophils # 6.9 (1.6-8.9) K/mcL BMP 04/28/17 01:12 Sodium 142 Potassium 2.9 L Chloride 93 L Carbon Dioxide 36 H BUN 42 H Creatinine 1.19 H Glucose 110 H Calcium 9.7 Cardiac Enzymes 04/28/17 Range/Units 01:12 Troponin I 0.00 (0-0.03) ng/mL - Attending Attestation Seen/examined. 61W with numerous concerns. 1. Chest pain, atypical, tender to palpation, likely non-cardiac. Cardiac cath earlier this month showed patent stents and non-obstructive CAD. Troponin x 2 is negative. No further work up is indicated. 2. Suspected TIA. Variable exam by various clinicians. No clear focal deficits on my exam. Neurology is following, will defer to neurology regaridng further work up. 3. Pyuria: No clear dysuria or suprapubic discomfort. No fever. Borderline WBC count. Will give empiric cefepime, and follow urine cultures and clinical course to decide if antibiotic is needed at all or not. 4. Chronic venostasis bilateral lower extremities, with hyperemia but no dolor, calor or tumor, doubt cellulitis. No antibiotic indicated. 5. Polypharmacy: She is on 36 (thirty-six!) medications, and some of these could be contributing to the non-specific recurrent non-focal symptoms she presents with. Gradual weaning off can be attempted.
[2017-04-27] MEDS ORDERED: Vancomycin 1,750 MG in D5% in Water 250 ML IVPB SCH (23:45)
[2017-04-27] MEDS: Ipratropium/Albuterol Neb 3 ML IH SCH (23:54)
[2017-04-28] MEDS ORDERED: Piperacillin/Tazobactam 3.375 GM in D5% in Water (Mini-Bag+) 100 ML IVPB SCH
[2017-04-28] MEDS: *HR* Heparin 5,000 UNIT/ML VIAL SQ SCH ×4 (00:16→23:44)
[2017-04-28] MEDS: Insulin DETEMIR 100 UNIT/ML X5UNITS SQ SCH ×3 (00:21→20:24)
[2017-04-28] MEDS ORDERED: Nitroglycerin 0.4 MG TAB.SUBL SL PRN (00:41)
[2017-04-28] MEDS: ARIPiprazole 10 MG TABLET PO SCH ×2 (00:51→20:23)
[2017-04-28] MEDS: clonazePAM 1 MG TABLET PO SCH ×2 (00:51→09:07)
[2017-04-28] MEDS: Gabapentin 400 MG CAPSULE PO SCH ×4 (00:52→20:24)
[2017-04-28] MEDS ORDERED: Vancomycin 1,750 MG in D5% in Water 500 ML IVPB SCH (01:00)
[2017-04-28] MEDS ORDERED: 0.9 % Sodium Chloride 1,000 ML IVC SCH ×2 (01:15→09:45)
[2017-04-28 01:28] LABS: Basophils # 0.1 K/mcL (0.0-0.2); Basophils % 0.5 %; Eosinophils # 0.2 K/mcL (0.0-0.6); Eosinophils % 2.1 %; Hematocrit 34.6 % (35.3-44.9); Hemoglobin 10.1 g/dL (11.5-15.4); Immature Granulocytes % 0.8 % (0-4); Lymphocytes # 3.6 K/mcL (0.6-4.6); Lymphocytes % 31.3 %; Mean Corpuscular HGB Conc 29.2 g/dL (31.6-35.5); Mean Corpuscular Volume 82.2 fL (83.0-100.0); Mean Platelet Volume 11.3 fL (9.4-12.4); Monocytes # 0.6 K/mcL (0.0-1.3); Monocytes % 5.2 %; Neutrophils # 6.9 K/mcL (1.6-8.9); Nucleated Red Blood Cells 0.2 /100 WBC (0); Platelet Count 270 K/mcL (140-400); Red Blood Count 4.21 M/mcL (3.82-4.97); Segmented Neutrophils % 60.1 %
[2017-04-28 01:34] LABS: Prothrombin Time 10.2 Seconds (9.4-12.1)
[2017-04-28 01:41] LABS: Hemoglobin A1C 8.5 %
[2017-04-28 01:44] LABS: Calcium 9.7 mg/dL (8.6-10.8); Chol/HDL Ratio 4.9 (0-4.9); Magnesium 1.4 mg/dL (1.6-2.6); Potassium 2.9 mEq/L (3.5-4.5)
[2017-04-28] MEDS: Ipratropium/Albuterol Neb 3 ML IH SCH ×2 (04:02→07:57)
[2017-04-28] MEDS: Insulin LISPRO 300 UNITS/3 ML VIAL SQ SCH ×4 (08:50→20:24)
[2017-04-28] MEDS ORDERED: NON-FORMULARY MEDICATION 1 EACH EACH (Insulin Glargine [Lantus] 90 UNIT) SQ SCH (09:00)
[2017-04-28] MEDS ORDERED: Pantoprazole 40 MG VIAL IVP SCH (09:00)
[2017-04-28] MEDS: Fenofibrate 54 MG TABLET PO SCH (09:06)
[2017-04-28] MEDS: Metoprolol XL (24 HR) Succ 50 MG TAB.ER.24H PO SCH (09:06)
[2017-04-28] MEDS: Isosorbide MONOnitrate (24 HR) 60 MG TAB.ER.24H PO SCH (09:07)
[2017-04-28] MEDS: Aspirin 81 MG TAB.CHEW PO SCH (09:07)
[2017-04-28] MEDS: Magnesium Oxide 400 MG TABLET PO SCH ×2 (09:07→20:24)
[2017-04-28] MEDS: amLODIPine 5 MG TABLET PO SCH (09:09)
[2017-04-28] MEDS ORDERED: Ipratropium/Albuterol Neb 3 ML IH PRN (09:24)
--- NOTE | 2017-04-28 09:36 | Internal Med Progress Note ---
Date of Encounter: 04/28/17 Time of Encounter: 09:33 - Assessment and plan (1) NIMO (acute kidney injury) Current Visit: Yes Status: Acute Assessment and plan: Hold all nephrotoxic medications and avoid hypotension. Continue intravenous fluids. Monitor renal function and urine output. If kidney function results by tomorrow, patient can be discharged. Patient is moderate risk due to risk of worsening renal function and risk of acute tubular necrosis. (2) Chest pain Current Visit: Yes Status: Chronic Assessment and plan: Chronic and recurrent pain that is noncardiac. No further investigation required. Outpatient follow-up with primary for evaluation of noncardiac causes of chest pain. Qualifiers: Chest pain type: other chest pain Qualified Code(s): R07.89 - Other chest pain; R07.8 - Other chest pain (3) CAD (coronary artery disease) Current Visit: Yes Status: Chronic Assessment and plan: Patient had left heart catheterization 04/07/2017 which revealed widely patent stents. Optimal medical management of her cardiac disease has been recommended. Continue aspirin, statin and beta randy. Qualifiers: Coronary Disease-Associated Artery/Lesion type: [place] artery [place] vs. transplanted heart: [place] heart Associated angina: without angina Qualified Code(s): I25.10 - Atherosclerotic heart disease of [place] coronary artery without angina pectoris (4) HTN (hypertension) Current Visit: Yes Status: Chronic Assessment and plan: Stable. Continue home medications. Avoid hypotension. Qualifiers: Hypertension type: essential hypertension Qualified Code(s): I10 - Essential (primary) hypertension (5) Type 2 diabetes mellitus Current Visit: Yes Status: Chronic Assessment and plan: Continue home dose of insulin. Continues sliding scale insulin. 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 (7) Hypomagnesemia Current Visit: Yes Status: Acute Assessment and plan: Replace (8) Chronic venous stasis dermatitis of both lower extremities Current Visit: Yes Status: Chronic Assessment and plan: Chronic venous stasis changes. Patient does not have cellulitis. Discontinue intravenous antibiotics and monitor off antibiotics. Likely discharge tomorrow. (9) Morbid obesity with BMI of 40.0-44.9, adult Current Visit: No Status: Chronic - Subjective Interval history: 61-year-old female with about 31 presentation as to the ER via EMS this year due to chest pain returned to the emergency room yesterday due to sudden onset chest pain that woke her up from sleep. Patient has had multiple testing for the same. She had left heart catheterization performed on 2016 by cardiology for the same. At that time, her prior stents were widely patent and she did not require any intervention. Hence, her chest pain was felt to be of noncardiac origin and further workup regarding the same as recommended by cardiology. The patient also has chronic venous stasis changes in her legs. Yesterday, she was admitted with chest pain and suspicion of cellulitis and acute kidney injury. She was placed on broad-spectrum antibody therapy. She was given fluids for acute kidney injury. Today, she states that she continues to have some chest pain. Denies any shortness of breath, cough or wheezing. Reports that her legs are at her baseline. - Constitutional Vitals: Temp Pulse Resp BP Pulse Ox 97.9 F 84 16 127/71 90 04/28/17 07:00 04/28/17 07:00 04/28/17 07:57 04/28/17 07:00 04/28/17 07:57 General appearance: Present: cooperative, A&O X 3, morbidly obese, pleasant, no acute distress, answers questions appropriately Exam: Gen.: Lying in bed. No acute distress. Chest: Clear to auscultation bilaterally. No adventitious sounds present. No reproducible chest wall tenderness CVS: First and second heart sounds present. No murmurs, rubs or gallops. Abdomen: Soft, nontender, obese. Bowel sounds present. No hepatosplenomegaly. Skin: Chronic venous stasis changes bilateral lower extremities Internal Medicine: Result - Labs CBC & Chem 7: 04/28/17 01:18 04/28/17 01:12 Labs: Short CBC 04/28/17 Range/Units 01:18 WBC 11.5 H (4.3-11.1) K/mcL Hgb 10.1 L (11.5-15.4) g/dL Hct 34.6 L (35.3-44.9) % Plt Count 270 (140-400) K/mcL Neutrophils # 6.9 (1.6-8.9) K/mcL BMP 04/28/17 01:12 Sodium 142 Potassium 2.9 L Chloride 93 L Carbon Dioxide 36 H BUN 42 H Creatinine 1.19 H Glucose 110 H Calcium 9.7 Cardiac Enzymes 04/28/17 04/28/17 Range/Units 01:12 06:49 Troponin I 0.00 0.01 (0-0.03) ng/mL - ABG Interpretation ABG results: PT/INR, D-dimer PT 10.2 Seconds (9.4-12.1) 04/28/17 01:18 Consult Discharge Plan - Plan Referrals: Corey Waddell DO [Primary Care Provider] -
[2017-04-28] MEDS ORDERED: Cefepime HCl 1,000 MG in D5% in Water (Mini-Bag+) 100 ML IVPB SCH (10:00)
[2017-04-28] MEDS: clonazePAM 1 MG TABLET PO PRN (15:12)
[2017-04-28] MEDS: tiZANidine 4 MG TABLET PO PRN (15:12)
[2017-04-28] MEDS: traMADol 50 MG TABLET PO PRN ×2 (16:40→23:45)
--- NOTE | 2017-04-28 16:59 | Electrocardiograph Report ---
[address] [place] [address] Test Date: 2017-04-27 Pat Name: Claire Lynch Department: 104 Room: 2NE31 Gender: F Modeling Director: : 1955 Requested By: Nadeem Zhou Order Number: [id number] Reading MD: Amada Rosenthal Measurements Intervals [place] Rate: 107 P: 75 WY: 151 QRS: 26 QRSD: 81 T: 25 QT: 380 QTc: 443 Interpretive Statements SINUS TACHYCARDIA LOW QRS VOLTAGE IN PRECORDIAL LEADS POSSIBLE ANTERIOR MYOCARDIAL INFARCTION, PROBABLY OLD ABNORMAL RHYTHM ECG Electronically Signed On 04-28-2017 16:57:11 EDT by Amada Rosenthal
[2017-04-28] MEDS: Ondansetron 4 MG/2 ML VIAL IVP PRN (23:44)
[2017-04-29] MEDS: tiZANidine 4 MG TABLET PO PRN ×3 (04:35→16:59)
[2017-04-29 07:17] LABS: BUN/Creatinine Ratio 28 (6-26); Calcium 9.4 mg/dL (8.6-10.8); Carbon Dioxide 31 mEq/L (19-29); Chloride 99 mEq/L (98-109); Glucose 252 mg/dL (70-99); Osmolality,Calculated 299 (280-300); Sodium 138 mEq/L (136-145); eGFR For African Americans > 60 (> 60); eGFR For Non-African Americans > 60 (> 60)
[2017-04-29 07:18] LABS: Blood Urea Nitrogen 24 mg/dL (7-20)
[2017-04-29 07:19] LABS: Potassium 4.2 mEq/L (3.5-4.5)
[2017-04-29] MEDS: Gabapentin 400 MG CAPSULE PO SCH ×3 (08:25→21:32)
[2017-04-29] MEDS: *HR* Heparin 5,000 UNIT/ML VIAL SQ SCH ×3 (08:25→23:21)
[2017-04-29] MEDS: Insulin DETEMIR 100 UNIT/ML X5UNITS SQ SCH ×2 (08:25→16:59)
[2017-04-29] MEDS: Isosorbide MONOnitrate (24 HR) 60 MG TAB.ER.24H PO SCH (08:26)
[2017-04-29] MEDS: amLODIPine 5 MG TABLET PO SCH (08:26)
[2017-04-29] MEDS: Fenofibrate 54 MG TABLET PO SCH (08:26)
[2017-04-29] MEDS: clonazePAM 1 MG TABLET PO PRN ×2 (08:26→21:38)
[2017-04-29] MEDS: Magnesium Oxide 400 MG TABLET PO SCH ×2 (08:26→21:32)
[2017-04-29] MEDS: traMADol 50 MG TABLET PO PRN ×2 (08:26→14:52)
[2017-04-29] MEDS: Aspirin 81 MG TAB.CHEW PO SCH (08:26)
[2017-04-29] MEDS: Metoprolol XL (24 HR) Succ 50 MG TAB.ER.24H PO SCH (08:26)
[2017-04-29] MEDS: Insulin LISPRO 300 UNITS/3 ML VIAL SQ SCH ×4 (08:27→21:39)
[2017-04-29] MEDS ORDERED: Albuterol 2.5 MG/3 ML NEBULIZER IH PRN (15:57)
--- NOTE | 2017-04-29 16:45 | Internal Med Progress Note ---
Date of Encounter: 04/29/17 Time of Encounter: 11:20 - Assessment and plan (1) Chest pain Current Visit: No Status: Ruled-out Assessment and plan: Acute on chronic recurrent chest pain - now improved, noncardiac Recent [facility] - widely patent stents Continue aspirin, statin, beta randy Chest x-ray - no acute pulmonary disease CT head - no acute intracranial abnormality EKG - sinus tachycardia, no acute ST-T changes WBC - 11.5 Troponin - negative Cardiac telemetry, continue monitoring closely Qualifiers: Chest pain type: unspecified Qualified Code(s): R07.9 - Chest pain, unspecified (2) E. coli UTI (urinary tract infection) Current Visit: No Status: Acute Assessment and plan: UTI present on admission - culture positive for Escherichia coli Empiric IV Rocephin, IV fluids (3) NIMO (acute kidney injury) Current Visit: Yes Status: Acute Assessment and plan: Acute kidney injury - likely due to dehydration and volume depletion - now resolved Continue IV fluids, Avoid nephrotoxic medications and watch for hypotension Repeat labs in a.m. (4) COPD (chronic obstructive pulmonary disease) Current Visit: No Status: Chronic Assessment and plan: COPD with mild acute exacerbation - improving Continue Albuterol as needed, Symbicort, Spiriva Qualifiers: COPD type: unspecified COPD Qualified Code(s): J44.9 - Chronic obstructive pulmonary disease, unspecified (5) CAD (coronary artery disease) Current Visit: Yes Status: Chronic Assessment and plan: Coronary Artery Disease status post stents - stable [facility] 04/07/2017 - widely patent stents Continue Aspirin, Statin and Toprol-XL Qualifiers: Coronary Disease-Associated Artery/Lesion type: [place] artery [place] vs. 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 Qualified Code(s): E11.69 - Type 2 diabetes mellitus with other specified complication; 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 (7) Hyperlipidemia Current Visit: No Status: Chronic Assessment and plan: Continue atorvastatin Qualifiers: Hyperlipidemia type: unspecified Qualified Code(s): E78.5 - Hyperlipidemia , unspecified (8) Depression Current Visit: No Status: Chronic Assessment and plan: Chronic depression with anxiety - stable Continue Abilify, Celexa, clonazepam Qualifiers: Depression Type: unspecified Qualified Code(s): F32.9 - Major depressive disorder, single episode, unspecified (9) Morbid obesity with BMI of 40.0-44.9, adult Current Visit: No Status: Chronic Assessment and plan: Morbid obesity, BMI 44.5 PT/OT consult (10) Chronic venous stasis dermatitis of both lower extremities Current Visit: Yes Status: Chronic Assessment and plan: Chronic venous stasis changes - Patient does not have cellulitis Discontinue intravenous antibiotics and monitor off antibiotics (11) DVT prophylaxis Current Visit: Yes Status: Acute Assessment and plan: Continue heparin subcutaneous - Time Spent With Patient 25 - 35 minutes - Subjective Interval history: Examined this morning. Patient is awake and alert. Not in any distress. Denies chest pain. Complains of mild shortness of breath. Tolerating oral diet. No fever. Hemodynamically stable. Admitted for acute kidney injury which is now resolved. She also has chronic recurrent chest pain that is noncardiac. Urine culture positive for Escherichia coli. Started on IV Rocephin. No other acute events or complaints. - Constitutional Vitals: Temp Pulse Resp BP Pulse Ox 98.3 F 65 18 133/82 95 04/29/17 07:29 04/29/17 07:29 04/29/17 07:29 04/29/17 07:29 04/29/17 07:29 General appearance: Present: cooperative, A&O X 3, morbidly obese, pleasant, no acute distress, answers questions appropriately - Head Head exam: Present: atraumatic - Eye Eye exam: Present: EOMI - ENT ENT exam: Present: mucous membranes moist - Respiratory Respiratory exam: Present: wheezes (Mild scattered bilateral). Absent: accessory muscle use, rales, rhonchi, tachypnea - Cardiovascular Cardiovascular exam: Present: RRR, +S1, +S2 - GI/Abdominal GI/Abdominal exam: Present: soft. Absent: distended, firm, guarding, tenderness - Extremities Exam Extremities exam: Present: pedal edema (Bilateral leg pitting edema 2+, stasis dermatitis), radial pulses palpable and symmetrical. Absent: cyanotic - Neurological Exam Neurological exam: Present: alert, oriented X3, no focal deficits. Absent: facial droop, speech deficit Internal Medicine: Result - Labs CBC & Chem 7: 04/28/17 01:18 04/29/17 06:49 Labs: BMP 04/29/17 06:49 Sodium 138 Potassium 4.2 D Chloride 99 Carbon Dioxide 31 H BUN 24 H D Creatinine 0.87 Glucose 252 H Calcium 9.4 - ABG Interpretation ABG results: PT/INR, D-dimer PT 10.2 Seconds (9.4-12.1) 04/28/17 01:18 Consult Discharge Plan - Plan Referrals: Corey Waddell DO [Primary Care Provider] -
[2017-04-29] MEDS ORDERED: *HR* LORazepam 0.5 MG TABLET PO PRN (18:02)
[2017-04-29] MEDS: Budesonide/Formoterol 160/4.5 MDI IH SCH (20:33)
[2017-04-29] MEDS: ARIPiprazole 10 MG TABLET PO SCH (21:32)
[2017-04-30 05:41] LABS: Eosinophils % 3.6 %
[2017-04-30 05:42] LABS: Basophils # 0.1 K/mcL (0.0-0.2); Basophils % 0.8 %; Eosinophils # 0.3 K/mcL (0.0-0.6); Hematocrit 33.8 % (35.3-44.9); Hemoglobin 10.1 g/dL (11.5-15.4); Immature Granulocytes % 1.7 % (0-4); Lymphocytes % 34.4 %; Mean Corpuscular HGB Conc 29.9 g/dL (31.6-35.5); Mean Corpuscular Hemoglobin 25.4 pg (28.0-33.3); Mean Corpuscular Volume 84.9 fL (83.0-100.0); Mean Platelet Volume 11.4 fL (9.4-12.4); Monocytes # 0.5 K/mcL (0.0-1.3); Monocytes % 6.1 %; Nucleated Red Blood Cells 0.3 /100 WBC (0); Platelet Count 235 K/mcL (140-400); Red Blood Count 3.98 M/mcL (3.82-4.97); Segmented Neutrophils % 53.4 %
[2017-04-30 05:44] LABS: Neutrophils # 4.7 K/mcL (1.6-8.9)
[2017-04-30 05:51] LABS: BUN/Creatinine Ratio 22 (6-26); Blood Urea Nitrogen 19 mg/dL (7-20); Carbon Dioxide 32 mEq/L (19-29); Chloride 98 mEq/L (98-109); Glucose 307 mg/dL (70-99); Osmolality,Calculated 302 (280-300); Potassium 3.9 mEq/L (3.5-4.5); Sodium 139 mEq/L (136-145); eGFR For African Americans > 60 (> 60); eGFR For Non-African Americans > 60 (> 60)
[2017-04-30] MEDS: traMADol 50 MG TABLET PO PRN ×2 (05:53→13:32)
[2017-04-30 06:10] LABS: Platelet Estimate Normal (Normal); Polychromasia 1+ (Not Present)
[2017-04-30] MEDS: tiZANidine 4 MG TABLET PO PRN (06:46)
[2017-04-30] MEDS ORDERED: Tiotropium 18 MCG inhalation IH SCH (07:00)
[2017-04-30] MEDS: Budesonide/Formoterol 160/4.5 MDI IH SCH (07:59)
[2017-04-30] MEDS: Insulin LISPRO 300 UNITS/3 ML VIAL SQ SCH ×2 (09:12→11:50)
[2017-04-30] MEDS: *HR* Heparin 5,000 UNIT/ML VIAL SQ SCH (09:12)
[2017-04-30] MEDS: Gabapentin 400 MG CAPSULE PO SCH (09:13)
[2017-04-30] MEDS: Fenofibrate 54 MG TABLET PO SCH (09:14)
[2017-04-30] MEDS: Aspirin 81 MG TAB.CHEW PO SCH (09:14)
[2017-04-30] MEDS: amLODIPine 5 MG TABLET PO SCH (09:15)
[2017-04-30] MEDS: Isosorbide MONOnitrate (24 HR) 60 MG TAB.ER.24H PO SCH (09:15)
[2017-04-30] MEDS: Metoprolol XL (24 HR) Succ 50 MG TAB.ER.24H PO SCH (09:15)
[2017-04-30] MEDS: Magnesium Oxide 400 MG TABLET PO SCH (09:15)
[2017-04-30] MEDS: clonazePAM 1 MG TABLET PO PRN (09:17)
[2017-04-30] MEDS: Insulin DETEMIR 100 UNIT/ML X5UNITS SQ SCH (10:20)
--- NOTE | 2017-04-30 10:38 | Discharge Summary ---
Date of Encounter: 04/30/17 Time of Encounter: 09:20 - Discharge Diagnosis (1) Chest pain Priority: Primary Status: Ruled-out Comments: Acute on chronic recurrent chest pain - now improved, noncardiac Recent [facility] - widely patent stents Continue Aspirin, Statin, beta randy Chest x-ray - no acute pulmonary disease CT head - no acute intracranial abnormality EKG - sinus tachycardia, no acute ST-T changes WBC - 11.5 Troponin - negative Stable for discharge to ECF today Qualifiers: Chest pain type: unspecified Qualified Code(s): R07.9 - Chest pain, unspecified (2) E. coli UTI (urinary tract infection) Priority: Primary Status: Acute Comments: UTI present on admission - culture positive for Escherichia coli IV Rocephin and IV fluids given in hospital Discharge to ECF on Cefdinir (3) NIMO (acute kidney injury) Priority: Primary Status: Acute Comments: Acute kidney injury - likely due to dehydration and volume depletion - now resolved (4) COPD (chronic obstructive pulmonary disease) Priority: Primary Status: Chronic Comments: COPD with mild acute exacerbation - improved Continue Albuterol as needed, Symbicort, Spiriva Qualifiers: COPD type: unspecified COPD Qualified Code(s): J44.9 - Chronic obstructive pulmonary disease, unspecified (5) CAD (coronary artery disease) Priority: Secondary Status: Chronic Comments: Coronary Artery Disease status post stents - stable [facility] 04/07/2017 - widely patent stents Continue Aspirin, Statin and Toprol-XL Qualifiers: Coronary Disease-Associated Artery/Lesion type: [place] artery [place] vs. 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 use Qualified Code(s): E11.69 - Type 2 diabetes mellitus with other specified complication; 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 (7) Hyperlipidemia Priority: Secondary Status: Chronic Comments: Continue atorvastatin Qualifiers: Hyperlipidemia type: unspecified Qualified Code(s): E78.5 - Hyperlipidemia , unspecified (8) Depression Priority: Secondary Status: Chronic Comments: Chronic depression with anxiety - stable Continue Abilify, Celexa, clonazepam Qualifiers: Depression Type: unspecified Qualified Code(s): F32.9 - Major depressive disorder, single episode, unspecified (9) Morbid obesity with BMI of 40.0-44.9, adult Priority: Secondary Status: Chronic Comments: Morbid obesity, BMI 44.5 PT/OT consult (10) Chronic venous stasis dermatitis of both lower extremities Priority: Secondary Status: Chronic Comments: Chronic venous stasis changes - Patient does not have cellulitis - Discharge Medications Prescriptions: OxyCODONE/APAP 5/325 [Percocet 5/325 MG] 1 tab PO Q6HR PRN #7 PRN Reason: Pain Cefdinir [Omnicef] 300 mg PO BID 7 Days clonazePAM [Klonopin] 1 mg PO TID PRN #7 tablet PRN Reason: Anxiety Lisinopril [Zestril] 5 mg PO DAILY #30 tablet Tramadol HCl [Ultram] 50 mg PO TID PRN #10 PRN Reason: Pain Home Medications: Budesonide/Formoterol 160/4.5 [Symbicort] 2 puff IH BIDR 04/21/15 [History] Levothyroxine [Synthroid] 100 mcg PO QAM 04/21/15 [History] Tiotropium [Spiriva] 18 mcg IH QAM 04/21/15 [History] metFORMIN [Glucophage] 1,000 mg PO BID 04/21/15 [History] Atorvastatin Calcium [Lipitor] 40 mg PO DAILY 02/04/16 [History] Montelukast [Singulair] 10 mg PO HS 02/04/16 [History] Oxygen 2 l NS AD PRN 03/17/16 [History] Insulin Glargine [Lantus] 80 unit SQ QPM 03/25/16 [History] Insulin Glargine [Lantus] 90 unit SQ QAM 03/25/16 [History] Albuterol Sulfate [Albuterol Inhaler] 2 puff IH Q4HR PRN 05/01/16 [History] Citalopram Hydrobromide [Citalopram HBr] 40 mg PO DAILY 05/01/16 [History] Ipratropium/Albuterol Neb [Duoneb] 3 ml IH Q6H PRN 05/01/16 [History] Raloxifene [Evista] 60 mg PO DAILY 05/01/16 [History] Aripiprazole [Abilify] 10 mg PO HS tablet 05/03/16 [Rx] Fenofibrate Nanocrystallized [Tricor] 145 mg PO DAILY 06/15/16 [History] Clopidogrel [Plavix] 75 mg PO QAM tablet 06/18/16 [Rx] Bumetanide 2 mg PO BID 11/21/16 [History] Aspirin 81 mg PO DAILY #60 tab.chew 12/06/16 [Rx] Nystatin POWDER [Nystop] 1 appl TP BID 12/14/16 [History] metOLazone [Zaroxolyn] 5 mg PO Q48H 12/31/16 [History] Insulin ASPART [NovoLOG] 2 - 10 unit SQ TIDWM 03/07/17 [History] Potassium Chloride 20 meq PO BID 03/07/17 [History] Gabapentin [Neurontin] 800 mg PO TID #20 03/26/17 [Rx] Mag Hydrox/Al Hydrox/Simeth [Maalox] 30 ml PO Q6H PRN 30 Days 03/26/17 [Rx] Magnesium Oxide [Mag-Ox] 400 mg PO BID tab 03/26/17 [Rx] Isosorbide MONOnitrate (24 HR) [Imdur] 60 mg PO DAILY #30 04/08/17 [Rx] Amlodipine Besylate 2.5 mg PO DAILY 04/27/17 [History] Cholecalciferol (D-3) [Vitamin D] 1,000 unit PO DAILY 04/27/17 [History] Metoclopramide [Reglan] 10 mg PO TID 04/27/17 [History] Metoprolol XL (24 HR) Succ [Toprol Xl] 50 mg PO DAILY 04/27/17 [History] Omeprazole [PriLOSEC] 20 mg PO BID 04/27/17 [History] Promethazine [Phenergan] 25 mg PO BID PRN 04/27/17 [History] Cefdinir [Omnicef] 300 mg PO BID 7 Days 04/30/17 [Rx] Lisinopril [Zestril] 5 mg PO DAILY #30 tablet 04/30/17 [Rx] OxyCODONE/APAP 5/325 [Percocet 5/325 MG] 1 tab PO Q6HR PRN #7 04/30/17 [Rx] Tramadol HCl [Ultram] 50 mg PO TID PRN #10 04/30/17 [Rx] clonazePAM [Klonopin] 1 mg PO TID PRN #7 tablet 04/30/17 [Rx] Allergies/Adverse Reactions: 3 Allergy/AdvReac Type Severity Reaction Status Date / Time No Known Allergies Allergy Verified 03/23/17 11:28 Procedures/tests Complete & Pending: Procedures Performed prior 72 hours Category Date Time Status ECG 12 lead ECG [ECG] Routine Y 04/27/17 19:03 Completed Date of admission: 04/27/17 22:59 Primary care physician: Corey Waddell, Consults: 04/28/17 00:08 Consult to Pediatric Oncology Nurse [CONS] Routine Comment: Reason for Consult: Patient has hx of uncontrolled diabetes and neuropathy problems. Assess for compliance in medications and diet. 04/28/17 00:31 Consult to Speech Therapy [CONS] Routine Comment: Evaluate, develop and implement POC Reason for Consult: Patient exhibited neuro deficits and has slight facial assymetry of right side on examination. Patient to be NPO until evaluated by ST. Call Completed: No Anticipated date of discharge: 04/30/17 - Patient Status Disposition: Transfer SNF Condition: Good Functional capacity at discharge: independent ambulation Overall status at discharge: patient is back to baseline - Discharge Instructions Instructions: Heart Failure (DC), Chest Pain (DC), Urinary Tract Infection in Women (DC) Follow Up With: Corey Waddell, [Primary Care Provider] - Additional Instructions: - Advised to continue all meds as per discharge instructions - Advised to complete antibiotic course - Follow up with primary care physician - Trauma symptoms worsen - Diet and Activity Activity: as per physical therapy, increase activity as tolerated, wear oxygen at all times Diet: advance to your usual diet, diabetic diet Hospital course: Ms. Lynch is a 61 year old female with past medical history of COPD, coronary artery disease, diabetes, hyperlipidemia, GERD, hypertension, thyroid disease, TIA, venous stasis, CHF and arthritis and anxiety and bipolar disorder and depression. Patient presented to the ED with complaint of chest pain and neuro deficits. There was initial concern for TIA. Neurology did not recommend TPA. Patient had some mild facial asymmetry but this is now resolved. Patient also had EKG done which did not show any acute changes. She had a recent left heart catheterization which revealed widely patent stents. Patient does have chronic chest pain which is noncardiac. No further cardiac workup is required. Patient was found to have mild acute kidney injury likely due to dehydration. She was given some IV fluids and is now improved. Aspirin and statin and beta randy were continued. Patient was also found to have UTI with culture positive for Escherichia coli. She is being discharged on Omnicef. She was started on IV Rocephin initially. Patient is being discharged on all her home medications. She will need to continue Plavix and aspirin and statin. Patient is now back to baseline. Her symptoms have now resolved. She had no acute events or complications during her stay in the hospital. Patient has been explained about her condition and plan care detail. She understood and agreed. No unanswered questions. Patient states she feels better and wants to go to ECF today. She is being discharged in a stable condition. She has been advised to follow-up with her primary care physician. She has been advised to return if symptoms worsen. - Time Spent with Patient Total time spent providing and/or coordinating discharge services: Greater than 30 minutes - Constitutional Vitals: Temp Pulse Resp BP Pulse Ox 97.0 F L 59 16 152/73 96 04/30/17 07:06 04/30/17 07:06 04/30/17 07:59 04/30/17 07:06 04/30/17 10:02 General appearance: Present: cooperative, A&O X 3, morbidly obese, pleasant, no acute distress, answers questions appropriately - Head Head exam: Present: atraumatic - Eye Eye exam: Present: EOMI - ENT ENT exam: Present: mucous membranes moist - Respiratory Respiratory exam: Present: CTAB. Absent: rales, rhonchi, wheezes, tachypnea - Cardiovascular Cardiovascular exam: Present: RRR, +S1, +S2 - GI/Abdominal GI/Abdominal exam: Present: soft (Obese). Absent: distended, firm, guarding, tenderness - Extremities Exam Extremities exam: Present: pedal edema (Bilateral lower leg pitting edema 2+, stasis dermatitis), radial pulses palpable and symmetrical. Absent: calf tenderness, cyanotic - Neurological Exam Neurological exam: Present: alert, oriented X3, no focal deficits. Absent: facial droop, speech deficit
--- NOTE | 2017-04-30 10:59 | Physician Discharge Referral ---
ExtendedCare Referral Info Provider in Charge after Transfer: PCP Institutional Level of Care: Skilled - Diagnosis (1) Chest pain Priority: Primary Status: Ruled-out (2) E. coli UTI (urinary tract infection) Priority: Primary Status: Acute (3) NIMO (acute kidney injury) Priority: Primary Status: Acute (4) COPD (chronic obstructive pulmonary disease) Priority: Primary Status: Chronic (5) CAD (coronary artery disease) Priority: Secondary Status: Chronic (6) Diabetes Priority: Secondary Status: Chronic (7) Hyperlipidemia Priority: Secondary Status: Chronic (8) Depression Priority: Secondary Status: Chronic (9) Morbid obesity with BMI of 40.0-44.9, adult Priority: Secondary Status: Chronic (10) Chronic venous stasis dermatitis of both lower extremities Priority: Secondary Status: Chronic Prognosis: Good Aware of Diagnosis: Patient Aware of Prognosis: Patient - Transfer Medications Home Medications: Budesonide/Formoterol 160/4.5 [Symbicort] 2 puff IH BIDR 04/21/15 [History] Levothyroxine [Synthroid] 100 mcg PO QAM 04/21/15 [History] Tiotropium [Spiriva] 18 mcg IH QAM 04/21/15 [History] metFORMIN [Glucophage] 1,000 mg PO BID 04/21/15 [History] Atorvastatin Calcium [Lipitor] 40 mg PO DAILY 02/04/16 [History] Montelukast [Singulair] 10 mg PO HS 02/04/16 [History] Oxygen 2 l NS AD PRN 03/17/16 [History] Insulin Glargine [Lantus] 80 unit SQ QPM 03/25/16 [History] Insulin Glargine [Lantus] 90 unit SQ QAM 03/25/16 [History] Albuterol Sulfate [Albuterol Inhaler] 2 puff IH Q4HR PRN 05/01/16 [History] Citalopram Hydrobromide [Citalopram HBr] 40 mg PO DAILY 05/01/16 [History] Ipratropium/Albuterol Neb [Duoneb] 3 ml IH Q6H PRN 05/01/16 [History] Raloxifene [Evista] 60 mg PO DAILY 05/01/16 [History] Aripiprazole [Abilify] 10 mg PO HS tablet 09/05/16 [Rx] Fenofibrate Nanocrystallized [Tricor] 145 mg PO DAILY 06/15/16 [History] Clopidogrel [Plavix] 75 mg PO QAM tablet 06/18/16 [Rx] Bumetanide 2 mg PO BID 11/21/16 [History] Aspirin 81 mg PO DAILY #60 tab.chew 12/06/16 [Rx] Nystatin POWDER [Nystop] 1 appl TP BID 12/14/16 [History] metOLazone [Zaroxolyn] 5 mg PO Q48H 12/31/16 [History] Insulin ASPART [NovoLOG] 2 - 10 unit SQ TIDWM 03/07/17 [History] Potassium Chloride 20 meq PO BID 03/07/17 [History] Tizanidine HCl [Zanaflex] 4 mg PO TID PRN 03/07/17 [History] Gabapentin [Neurontin] 800 mg PO TID #20 03/26/17 [Rx] Mag Hydrox/Al Hydrox/Simeth [Maalox] 30 ml PO Q6H PRN 30 Days 03/26/17 [Rx] Magnesium Oxide [Mag-Ox] 400 mg PO BID tab 03/26/17 [Rx] OxyCODONE/APAP 5/325 [Percocet 5/325 MG] 1 tab PO Q4H PRN #15 03/26/17 [Rx] clonazePAM [Klonopin] 1 mg PO TID #20 tablet 03/26/17 [Rx] Isosorbide MONOnitrate (24 HR) [Imdur] 60 mg PO DAILY #30 04/08/17 [Rx] Amlodipine Besylate 2.5 mg PO DAILY 04/27/17 [History] Cholecalciferol (D-3) [Vitamin D] 1,000 unit PO DAILY 04/27/17 [History] Metoclopramide [Reglan] 10 mg PO TID 04/27/17 [History] Metoprolol XL (24 HR) Succ [Toprol XL] 50 mg PO DAILY 04/27/17 [History] Omeprazole [PriLOSEC] 20 mg PO BID 04/27/17 [History] Promethazine [Phenergan] 25 mg PO BID PRN 04/27/17 [History] Tramadol HCl [Ultram] 50 mg PO TID PRN 04/27/17 [History] Allergies/Adverse Reactions: 3 Allergy/AdvReac Type Severity Reaction Status Date / Time No Known Allergies Allergy Verified 03/23/17 11:28 - Respiratory Orders Oxygen / L per min (2 L/m) Smoking Cessation: Smoking cessation has been advised. For more information, call the [place] Tobacco Quit Line at 2-764-YLIX-NOW. - Lab Orders Lab Orders: CBC - Ancillary Orders May use pressure relief devices daily prn - Advance Directives Code Status: Full Code - Mobility Orders Ambulate - Rehabiliation Orders Rehab Potential: Good Rehab Orders: ROM Exercises, Evaluation for Physical Therapy, Evaluation for Occupational Therapy - Treatments Skin tear care topically daily PRN per policy - Diet Orders Regular (Diabetic diet), Cardiac CERTIFICATION: I certify that the transfer of the above named patient to an Extended Care Facility is necessary for the continuing treatment of the diagnosis listed. The above information is true and accurate reflection of patient's current condition. Confidential - Redisclosure prohibited without a patient's written consent.
[2017-04-30 11:43] VITALS: BP 125/69
[2017-04-30] MEDS: Ondansetron 4 MG/2 ML VIAL IVP PRN (14:22)
[2017-04-30] MEDS ORDERED: Aminoglycoside Consult 1 EACH MC ONE (16:33)
== END 2017-04-30 16:34 | DRG 683 ==
LOC: EMEROO 18:43 → 2NENU 18:43
PROVIDERS: ADMIT Nurse Practitioner Family; ATTEND Internal Medicine Sleep Medicine

== ENCOUNTER 2017-05-09 02:08 | Observation (INO) ==
[2017-05-09] MEDS ORDERED: 0.9 % Sodium Chloride 1,000 ML IVC ONE (02:22)
[2017-05-09 02:30] LABS: Basophils # 0.1 K/mcL (0.0-0.2); Basophils % 0.7 %; Eosinophils # 0.3 K/mcL (0.0-0.6); Eosinophils % 2.4 %; Hematocrit 36.2 % (35.3-44.9); Hemoglobin 10.8 g/dL (11.5-15.4); Immature Granulocytes % 0.8 % (0-4); Mean Corpuscular HGB Conc 29.8 g/dL (31.6-35.5); Mean Corpuscular Hemoglobin 24.4 pg (28.0-33.3); Mean Corpuscular Volume 81.9 fL (83.0-100.0); Mean Platelet Volume 11.5 fL (9.4-12.4); Monocytes # 0.5 K/mcL (0.0-1.3); Monocytes % 4.9 %; Neutrophils # 6.8 K/mcL (1.6-8.9); Platelet Count 300 K/mcL (140-400); Red Blood Count 4.42 M/mcL (3.82-4.97); Red Cell Distribution Width 15.7 % (11.5-14.5); Segmented Neutrophils % 63.2 %
[2017-05-09 02:35] LABS: INR 0.9; Prothrombin Time 9.7 Seconds (9.4-12.1)
[2017-05-09 02:37] LABS: Activated Partial Thrombo Time 26.7 Seconds (26.0-36.0)
[2017-05-09 02:43] LABS: BUN/Creatinine Ratio 29 (6-26); Blood Urea Nitrogen 30 mg/dL (7-20); Calcium 9.7 mg/dL (8.6-10.8); Carbon Dioxide 32 mEq/L (19-29); Chloride 92 mEq/L (98-109); Glucose 259 mg/dL (70-99); Osmolality,Calculated 301 (280-300); Sodium 138 mEq/L (136-145); eGFR For African Americans > 60 (> 60); eGFR For Non-African Americans 55 (> 60)
--- NOTE | 2017-05-09 03:15 | Emergency Department Note ---
Disposition Clinical Impression: Weakness, Hypokalemia Chest pain Qualifiers: Chest pain type: other chest pain Qualified Code(s): R07.89 - Other chest pain ; R07.8 - Other chest pain Disposition: Admitted As Inpatient Condition: Fair Forms: ED Satisfaction Letter Time of Disposition: 04:43 General Adult HPI - General Chief complaint: ED Neuro Symptoms/Deficit Stated complaint: R side weakness Source: patient, EMS Mode of arrival: EMS Limitations: no limitations Nursing Notes Reviewed: Yes Vital Signs Reviewed: Yes - History of Present Illness HPI Narrative: 61-year-old female since the ED complaining of generalized weakness on her right side. Patient has a history of multiple strokes and states that she does have deficits on her left side but noticed that her right cheek was drooping. She states that she was sitting on the couch when all of a sudden she woke up and was laying sideways on the couch is worried that she passed out. She is worried that she had a stroke. This was notified to us as a possible stroke alert when they came in. After talking to her she states that the symptoms occurred 1 hour prior to arrival and the only noticeable thing was that she noticed the right cheek seemed to be drooping more she did not have any other weakness or loss of sensation on anywhere else in her body. She is not having any other complaints at this time. She has no chest pain, shortness of breath, abdominal pain, pain with urination, comes patient's last diarrhea, paresthesias go down the arms or legs, fevers. Points to this time. Pain Scale: 0 - Related Data Home Medications Medication Instructions Recorded Confirmed Budesonide/Formoterol 160/4.5 2 puff IH BIDR 04/21/15 04/27/17 [Symbicort] Levothyroxine [Synthroid] 100 mcg PO QAM 04/21/15 04/27/17 Tiotropium [Spiriva] 18 mcg IH QAM 04/21/15 04/27/17 metFORMIN [Glucophage] 1,000 mg PO BID 04/21/15 04/27/17 Atorvastatin Calcium [Lipitor] 40 mg PO DAILY 02/04/16 04/27/17 Montelukast [Singulair] 10 mg PO HS 02/04/16 04/27/17 Oxygen 2 l NS AD PRN 03/17/16 04/27/17 Insulin Glargine [Lantus] 80 unit SQ QPM 03/25/16 04/27/17 Insulin Glargine [Lantus] 90 unit SQ QAM 03/25/16 04/27/17 Albuterol Sulfate [Albuterol 2 puff IH Q4HR PRN 05/01/16 04/27/17 Inhaler] Citalopram Hydrobromide 40 mg PO DAILY 05/01/16 04/27/17 [Citalopram HBr] Ipratropium/Albuterol Neb [Duoneb] 3 ml IH Q6H PRN 05/01/16 04/27/17 Raloxifene [Evista] 60 mg PO DAILY 05/01/16 04/27/17 Fenofibrate Nanocrystallized 145 mg PO DAILY 06/15/16 04/27/17 [Tricor] Bumetanide 2 mg PO BID 11/21/16 04/27/17 Nystatin POWDER [Nystop] 1 appl TP BID 12/14/16 04/27/17 metOLazone [Zaroxolyn] 5 mg PO Q48H 12/31/16 04/27/17 Insulin ASPART [NovoLOG] 2 - 10 unit SQ TIDWM 03/07/17 04/27/17 Potassium Chloride 20 meq PO BID 03/07/17 04/27/17 Amlodipine Besylate 2.5 mg PO DAILY 04/27/17 04/27/17 Cholecalciferol (D-3) [Vitamin D] 1,000 unit PO DAILY 04/27/17 04/27/17 Metoclopramide [Reglan] 10 mg PO TID 04/27/17 04/27/17 Metoprolol XL (24 HR) Succ [Toprol 50 mg PO DAILY 04/27/17 04/27/17 Xl] Omeprazole [PriLOSEC] 20 mg PO BID 04/27/17 04/27/17 Promethazine [Phenergan] 25 mg PO BID PRN 04/27/17 04/27/17 Previous Rx's Medication Instructions Recorded Aripiprazole [Abilify] 10 mg PO HS tablet 05/03/16 Clopidogrel [Plavix] 75 mg PO QAM tablet 06/18/16 Aspirin 81 mg PO DAILY #60 tab.chew 12/06/16 Gabapentin [Neurontin] 800 mg PO TID #20 03/26/17 Mag Hydrox/Al Hydrox/Simeth 30 ml PO Q6H PRN 30 Days 03/26/17 [Maalox] Magnesium Oxide [Mag-Ox] 400 mg PO BID tab 03/26/17 Isosorbide MONOnitrate (24 HR) 60 mg PO DAILY #30 04/08/17 [Imdur] Cefdinir [Omnicef] 300 mg PO BID 7 Days 04/30/17 Lisinopril [Zestril] 5 mg PO DAILY #30 tablet 04/30/17 OxyCODONE/APAP 5/325 [Percocet 1 tab PO Q6HR PRN #7 04/30/17 5/325 MG] Tramadol HCl [Ultram] 50 mg PO TID PRN #10 04/30/17 clonazePAM [Klonopin] 1 mg PO TID PRN #7 tablet 04/30/17 Allergies Allergy/AdvReac Type Severity Reaction Status Date / Time No Known Allergies Allergy Verified 03/23/17 11:28 Constitutional: Reports: weakness. Denies: fever, chills, weight change Eyes: Denies: eye pain, eye discharge, vision change ENT ED: Denies: ear pain, throat pain, dental pain, hearing loss, epistaxis, congestion, dysphagia Cardiovascular: Denies: chest pain, palpitations, dyspnea on exertion, edema, syncope Respiratory: Denies: cough, dyspnea, wheezes, hemoptysis, stridor Gastrointestinal: Denies: abdominal pain, nausea, vomiting, diarrhea, constipation, hematemesis, melena, hematochezia Genitourinary: Denies: dysuria, frequency, hematuria, discharge Musculoskeletal: Denies: back pain, neck pain, arthralgia, myalgia Integumentary: Denies: rash, abrasion, lesions Neurological: Reports: weakness, numbness. Denies: headache, paresthesias, confusion, abnormal gait, vertigo Psychiatric: Denies: anxiety, depression, suicidal thoughts, homicidal thoughts , auditory hallucinations, visual hallucinations Endocrine: Denies: fatigue Hematological/Lymphatic: Denies: easy bleeding, easy bruising Allergic/Immunologic: Denies: facial swelling, urticaria Past Medical History - Past Medical History Medical history: Reports: arthritis, CHF, COPD, coronary artery disease, diabetes, GERD, hyperlipidemia, hypertension, osteoporosis, thyroid disease, TIA , venous stasis, other Surgical history: Reports: angioplasty/stent, , cholecystectomy, hysterectomy Psychiatric history: Reports: anxiety, bipolar, depression, panic disorder [employer] history: Reports: bilateral tubal ligation - Social History Smoking Status: Former smoker Smokeless Tobacco Status: No Alcohol use: Reports: none Drug use: Reports: none Physical Exam - General Limitations: no limitations General appearance: alert, in no apparent distress - Head Head exam: atraumatic, normocephalic, normal inspection - Eye Eye exam: Present: normal appearance, PERRL, EOMI - ENT ENT exam: normal exam, normal oropharynx, mucous membranes moist - Neck Neck exam: Present: normal inspection, full ROM, trachea midline - Chest Chest inspection: Present: normal inspection, symmetric chest wall rise - Respiratory Respiratory exam: Present: normal lung sounds bilaterally - Cardiovascular Cardiovascular exam: Present: regular rate, normal rhythm, normal heart sounds - Abdominal Exam Abdominal exam: Present: soft, Non-Tender. Absent: tenderness, distention, guarding, rebound, rigidity - Extremities Exam Extremities exam: Present: normal inspection, full ROM. Absent: tenderness, pedal edema - Back Exam Back exam: Present: normal inspection, full ROM. Absent: tenderness - Neurological Exam Neurological exam: Present: alert, oriented X3, CN II-XII intact. Absent: motor sensory deficit - Expanded Neurological Exam Speech: Present: fluid speech Cranial nerves: EOM function (II, III, IV, ): Normal, facial sensation (V): Normal, facial palsy (VII): Normal, spinal accessory function (XI): Normal, tongue deviation (XII): Normal Cerebellar function: finger to nose: Normal, heel to boo: Normal Motor strength - LUE: 5/5 Motor strength - RUE: 5/5 Motor strength - LLE: 5/5 Motor strength - RLE: 5/5 Upper motor neuron exam: carole neglect: Absent bilaterally, pronator drift: Absent bilaterally, Babinski sign: Absent bilaterally, sensory extinction: Absent bilaterally Sensory exam upper extremity: light touch: Normal Sensory exam lower extremity: light touch: Normal Spinal cord function: Present: intact bulbocavernosus reflex. Absent: saddle anesthesia Coma Scale Eye Opening: Spontaneous Coma Scale Motor Response: Obeys Commands Coma Scale Verbal Response: Oriented Coma Scale Total: 15 - Skin Skin exam: Present: warm, dry, intact, normal color Course Course Narrative: Patient and her female presents to the ED for possible stroke alert. She states that the symptoms came on when hour prior to arrival and she had right- sided weakness as well as a right-sided facial droop. When she arrived we did not notice or appreciate any of these findings. Her NIH scale was 0. At this time we decided to cancel the stroke alert and not do it. We will do a generalized weakness workup. Including CT of her head, basic laboratories. Patient is okay with this plan. We also did an EKG. - Reevaluation(s) Reevaluation #1: After coming back from CT she states that she was feeling a little nauseous so we decided to give her Zofran and continue the 1 L bag of fluids. At this time her CT came back negative for any acute changes. She did have a low potassium so we gave her an oral potassium. Her troponin was 0.02 additional EKG changes I do not do anything further at this visit is still within normal limits. There are no other lab abnormalities. - Consultations Consultation #1: Dr. Bone agreed to admit the patient. To the hospitalist service excellent in [place] history and physical and he agreed to admit her for chest pain and generalized weakness. Vital Signs Temperature 99.4 F 05/09/17 02:09 Pulse Rate 80 05/09/17 02:09 Respiratory Rate 18 05/09/17 02:09 Blood Pressure 139/71 05/09/17 02:09 O2 Sat by Pulse Oximetry 92 05/09/17 02:09 Temperature 99.4 F 05/09/17 02:09 Pulse Rate 75 05/09/17 03:21 Respiratory Rate 18 05/09/17 03:21 Blood Pressure 115/68 05/09/17 03:21 O2 Sat by Pulse Oximetry 96 05/09/17 03:21 Oxygen Delivery Oxygen Delivery Nasal Cannula Medical Decision Making - [facility] Narrative Medical decision making narrative: 61-year-old female presents to the ED complaining of generalized weakness. When she first presented we thought was a possible stroke alert after examining her and having a NIH scale 0 we decided to cancel his stroke alert and is to normal generalized weakness workup on her. CT came back negative all of her labs came back negative except for having a sign of hypokalemia we did replenish her with 40 mEq of potassium at that time. She also states she had chest pain and normally occurs when she does not take her tramadol which she is normally prescribed. I gave her her 50 mg tramadol and she said that feels much better at this time. Her troponin was 0.02 which is not elevated she did not have any EKG changes. She does have a generalized weakness especially on that right side according to her. So we thought this needed further evaluation so she could be admitted. Patient wants to be admitted. I spoke with Dr. Bone the hospitalist who agreed to admit the patient this time. Patient was admitted for chest pain and generalized weakness. Patient is stable at this time and vital signs are stable. Head CT 05/09/17 02:24 IMPRESSION: No acute intracranial abnormality. D/ / Sharon Patino MD / Sharon Patino MD Interpreting Provider: Sharon Patino MD - Medical Records Medical records reviewed: Yes I reviewed the patient's medical records. - Lab Data Lab results reviewed: Yes I reviewed the patient's lab results. Result diagrams: 05/09/17 02:20 05/09/17 02:20 Lab Results 05/09/17 05/09/17 05/09/17 Range/Units 02:20 02:20 02:20 WBC 10.7 (4.3-11.1) K/mcL RBC 4.42 (3.82-4.97) M/mcL Hgb 10.8 L (11.5-15.4) g/dL Hct 36.2 (35.3-44.9) % MCV 81.9 L (83.0-100.0) fL MCH 24.4 L (28.0-33.3) pg MCHC 29.8 L (31.6-35.5) g/dL RDW 15.7 H (11.5-14.5) % Plt Count 300 (140-400) K/mcL MPV 11.5 (9.4-12.4) fL Immature Gran % 0.8 (0-4) % Seg Neutrophils % 63.2 % Lymphocytes % 28.0 % Monocytes % 4.9 % Eosinophils % 2.4 % Basophils % 0.7 % Neutrophils # 6.8 (1.6-8.9) K/mcL Lymphocytes # 3.0 (0.6-4.6) K/mcL Monocytes # 0.5 (0.0-1.3) K/mcL Eosinophils # 0.3 (0.0-0.6) K/mcL Basophils # 0.1 (0.0-0.2) K/mcL PT 9.7 (9.4-12.1) Seconds INR 0.9 APTT 26.7 (26.0-36.0) Seconds Sodium 138 (136-145) mEq/L Potassium 3.0 L (3.5-4.5) mEq/L Chloride 92 L (98-109) mEq/L Carbon Dioxide 32 H (19-29) mEq/L BUN 30 H (7-20) mg/dL Creatinine 1.03 (0.57-1.11) mg/dL Est GFR ( Amer) > 60 (> 60) Est GFR (Non-Af Amer) 55 L (> 60) BUN/Creatinine Ratio 29 H (6-26) Glucose 259 H (70-99) mg/dL Calculated Osmolality 301 H (280-300) Calcium 9.7 (8.6-10.8) mg/dL Troponin I (0-0.03) ng/mL 05/09/17 Range/Units 02:20 WBC (4.3-11.1) K/mcL RBC (3.82-4.97) M/mcL Hgb (11.5-15.4) g/dL Hct (35.3-44.9) % MCV (83.0-100.0) fL MCH (28.0-33.3) pg MCHC (31.6-35.5) g/dL RDW (11.5-14.5) % Plt Count (140-400) K/mcL MPV (9.4-12.4) fL Immature Gran % (0-4) % Seg Neutrophils % % Lymphocytes % % Monocytes % % Eosinophils % % Basophils % % Neutrophils # (1.6-8.9) K/mcL Lymphocytes # (0.6-4.6) K/mcL Monocytes # (0.0-1.3) K/mcL Eosinophils # (0.0-0.6) K/mcL Basophils # (0.0-0.2) K/mcL PT (9.4-12.1) Seconds INR APTT (26.0-36.0) Seconds Sodium (136-145) mEq/L Potassium (3.5-4.5) mEq/L Chloride (98-109) mEq/L Carbon Dioxide (19-29) mEq/L BUN (7-20) mg/dL Creatinine (0.57-1.11) mg/dL Est GFR ( Amer) (> 60) Est GFR (Non-Af Amer) (> 60) BUN/Creatinine Ratio (6-26) Glucose (70-99) mg/dL Calculated Osmolality (280-300) Calcium (8.6-10.8) mg/dL Troponin I 0.02 (0-0.03) ng/mL - Radiology Data Radiology results reviewed: Yes I reviewed the patient's radiology results. - EKG Data EKG #1 EKG attestation: Yes I reviewed and interpreted this EKG. EKG results narrative: EKG done at 0-17 which was reviewed by myself and the attending shows normal sinus rhythm at rate of 76, KS interval 133, QRS 84, QTc 455 with a normal axis. There are no acute ST changes, T-wave changes. There seems to be some old changes for possible anterior myocardial infarction but she does have a history of having those. This compared with old EKG done 04/27/17 which shows sinus tachycardia and no other acute changes. Overall I think this is an unchanged EKG from her periods with no acute findings. EKG shows normal: sinus rhythm, axis, intervals, QRS complexes, ST-T waves Rate: normal Rhythm: NSR St[place]/QRS: normal When compared to previous EKG there are: no significant changes Interpretation: no acute changes, unchanged when compared to prior tracing (date )
[2017-05-09] MEDS ORDERED: Ondansetron 4 MG/2 ML VIAL IVP ONE (03:22)
[2017-05-09] MEDS ORDERED: Potassium Chloride Elixir 20 MEQ/15 ML UDC PO ONE ×2 (03:33→18:32)
--- NOTE | 2017-05-09 03:58 | Emergency Department Note ---
START Narrative - START START: I examined this patient and my medical decision-making was reviewed with the Resident Physician. I agree with the documented findings, disposition and treatment plan as described except to the extent set forth below. 61yo F here for right sided weakness. cT neg of head. pt has hx of previous CVA affecting her left side. after she has been here in the ER, she states her chest was hurting. we have worked up from cva aspect and cardiac aspect. all of this has been negative thus far. pt wants to be admitted.
[2017-05-09] MEDS ORDERED: traMADol 50 MG TABLET PO ONE (04:19)
--- NOTE | 2017-05-09 04:32 | Internal Med History&Physical ---
Date of Encounter: 05/09/17 Time of Encounter: 04:32 Assessment and Plan (1) Syncope Current visit: Yes Status: Acute Likely vasovagal syncopal episode while standing up from lying position. CT brain negative. No trauma. Continue cardiac telemetry monitoring. Measure orthostatic blood pressure. Hold diuretics. Consider outpatient Holter monitoring. Qualifiers: Syncope type: vasovagal syncope Qualified Code(s): R55 - Syncope and collapse (2) TIA (transient ischemic attack) Current visit: No Status: Acute Previous h/o TIA. Patient reports new left tongue numbness and left eye blurriness. CT brain negative. Consider MRI for further evaluation. Last carotid U/S 12/06/16 revealed nonstenotic minimal plaques in bilateral carotid arteries. Continue ASA and Plavix. NPO, await bedside swallow eval. Qualifiers: Transient cerebral ischemia type: unspecified Qualified Code(s): G45.9 - Transient cerebral ischemic attack, unspecified (3) Chest pain Current visit: No Status: Resolved ANNA score 3: HTN, HLD, DM, h/o CAD, current ASA use EKG reveals normal sinus rhythm at rate of 76, SC interval 133, QRS 84, QTc 455 with a normal axis. There are no acute ST changes, T-wave changes. Possible anterior myocardial infarction unchanged compared with old EKG 04/27/17 Initial troponin 0.02, trend serial troponins Continue ASA, beta randy, and statin. Qualifiers: Chest pain type: precordial pain Qualified Code(s): R07.2 - Precordial pain (4) Hypokalemia Current visit: No Status: Acute Supplement K Continue to monitor. (5) Anxiety and depression Current visit: No Status: Chronic Likely contributing to current presentation. Continue home meds. (6) CAD (coronary artery disease) Current visit: No Status: Chronic last heart cath 04/07/17 which revealed patent stents in mid RCA, proximal LAD, and mild non-obstructive disease in Cx and negative nuclear stress test in October 2016. She is currently on ASA, statin, plavix, beta randy, and Imdur Qualifiers: Coronary Disease-Associated Artery/Lesion type: tribal artery [place] vs. transplanted heart: tribal heart Associated angina: without angina Qualified Code(s): I25.10 - Atherosclerotic heart disease of tribal coronary artery without angina pectoris (7) CHF (congestive heart failure) Current visit: No Status: Chronic heart cath 04/07/17 which revealed EF 55% Qualifiers: Congestive heart failure type: diastolic Congestive heart failure chronicity: chronic Qualified Code(s): I50.32 - Chronic diastolic (congestive ) heart failure (8) COPD (chronic obstructive pulmonary disease) Current visit: No Status: Chronic Not in exacerbation. Continue current management. Qualifiers: COPD type: unspecified COPD Qualified Code(s): J44.9 - Chronic obstructive pulmonary disease, unspecified (9) Diabetes mellitus Current visit: No Status: Chronic Hold Metformin. Continue Insulin. Continue to monitor 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 mellitus type: type 2 Diabetes mellitus complication status: with neurologic complications Diabetes mellitus complication detail: with polyneuropathy Diabetes mellitus terminal gauger insulin use: with terminal gauger use Qualified Code(s): E11.42 - Type 2 diabetes mellitus with diabetic polyneuropathy; Z79.4 - custodial (current) use of insulin (10) DVT prophylaxis Current visit: No Status: Acute Heparin Internal Medicine - H&P: HPI Admitted From: Home Plans for Post Hospital Care: Home History of present illness: Ms. Lynch is a 61 year old female with a PMH of uncontrolled diabetes, TIA, non -obstructive CAD with cardiac stents, HTN, HLD, oxygen dependent COPD, and morbid obesity that presented c/o unwitnessed syncopal episode after trying to stand up while getting out of bed around 12:30AM this morning. She lives at home alone and reports loss of consciousness for 5 minutes. Patient reports new tongue numbness, left eye blurriness, nausea, and left sided chest pain since awaking. The chest pain feels like needles in her left chest, is constant, and radiates to her right jaw. Pain severity is 7/10 and nothing makes the chest pain better or worse. She also reports low grade fever, redness in her bilateral shins, and dysuria. Patient denies chills, SOB, abd pain, vomiting, diarrhea, or leg edema. Of note, patient had last heart cath 04/07/17 which revealed patent stents in mid RCA, proximal LAD, and mild non-obstructive disease in Cx and negative nuclear stress test in October 2016. She is currently on ASA, statin, plavix, beta randy, and Imdur. Past Med Surg Social Fam HX - Past Medical History Medical history: arthritis, CHF, COPD, coronary artery disease, diabetes, GERD, hyperlipidemia, hypertension, osteoporosis, thyroid disease, TIA, venous stasis , other Psychiatric history: anxiety, bipolar, depression, panic disorder - Past Surgical History Surgical History: angioplasty/stent, , cholecystectomy, hysterectomy - Social History Smoking Status: Former smoker Smokeless Tobacco Status: No Alcohol use: none Drug use: none - Family History Brother Family Member Ethnicity: Non- Living Status: Father Adopted: No Family Member Ethnicity: Non- Living Status: Hx Family Cardiac Disorders: Yes (HD, HLD, HTN, AR, Triple Bypass) Mother Adopted: No Family Member Ethnicity: Non- Living Status: Hx Family Cardiac Disorders: Yes (AR, HTN, HLD, Strokes x5) Hx Family Respiratory Disorders: No Hx Family Cancer: No Hx Family GI Disorders: No Hx Family Endocrine Disorder: Yes (DM) Hx Family Neuromuscular Disorders: No Hx Family Neurologic Disorders: Yes (Strokes) Hx Family HEENT Disorders: No Hx Family Autoimmune Disorders: No Internal Medicine - H&P: Meds Budesonide/Formoterol 160/4.5 [Symbicort] 2 puff IH BIDR 04/21/15 [History] Levothyroxine [Synthroid] 100 mcg PO QAM 04/21/15 [History] Tiotropium [Spiriva] 18 mcg IH QAM 04/21/15 [History] metFORMIN [Glucophage] 1,000 mg PO BID 04/21/15 [History] Atorvastatin Calcium [Lipitor] 40 mg PO DAILY 02/04/16 [History] Montelukast [Singulair] 10 mg PO HS 02/04/16 [History] Oxygen 2 l NS AD PRN 03/17/16 [History] Insulin Glargine [Lantus] 80 unit SQ QPM 03/25/16 [History] Insulin Glargine [Lantus] 90 unit SQ QAM 03/25/16 [History] Albuterol Sulfate [Albuterol Inhaler] 2 puff IH Q4HR PRN 05/01/16 [History] Citalopram Hydrobromide [Citalopram HBr] 40 mg PO DAILY 05/01/16 [History] Ipratropium/Albuterol Neb [Duoneb] 3 ml IH Q6H PRN 05/01/16 [History] Raloxifene [Evista] 60 mg PO DAILY 05/01/16 [History] Aripiprazole [Abilify] 10 mg PO HS tablet 05/03/16 [Rx] Fenofibrate Nanocrystallized [Tricor] 145 mg PO DAILY 06/15/16 [History] Clopidogrel [Plavix] 75 mg PO QAM tablet 06/18/16 [Rx] Bumetanide 2 mg PO BID 11/21/16 [History] Aspirin 81 mg PO DAILY #60 tab.chew 12/06/16 [Rx] Nystatin POWDER [Nystop] 1 appl TP BID 12/14/16 [History] metOLazone [Zaroxolyn] 5 mg PO Q48H 12/31/16 [History] Insulin ASPART [NovoLOG] 2 - 10 unit SQ TIDWM 03/07/17 [History] Potassium Chloride 20 meq PO BID 03/07/17 [History] Gabapentin [Neurontin] 800 mg PO TID #20 03/26/17 [Rx] Mag Hydrox/Al Hydrox/Simeth [Maalox] 30 ml PO Q6H PRN 30 Days 03/26/17 [Rx] Magnesium Oxide [Mag-Ox] 400 mg PO BID tab 03/26/17 [Rx] Isosorbide MONOnitrate (24 HR) [Imdur] 60 mg PO DAILY #30 04/08/17 [Rx] Amlodipine Besylate 2.5 mg PO DAILY 04/27/17 [History] Cholecalciferol (D-3) [Vitamin D] 1,000 unit PO DAILY 04/27/17 [History] Metoclopramide [Reglan] 10 mg PO TID 04/27/17 [History] Metoprolol XL (24 HR) Succ [Toprol Xl] 50 mg PO DAILY 04/27/17 [History] Omeprazole [PriLOSEC] 20 mg PO BID 04/27/17 [History] Promethazine [Phenergan] 25 mg PO BID PRN 04/27/17 [History] Cefdinir [Omnicef] 300 mg PO BID 7 Days 04/30/17 [Rx] Lisinopril [Zestril] 5 mg PO DAILY #30 tablet 04/30/17 [Rx] OxyCODONE/APAP 5/325 [Percocet 5/325 MG] 1 tab PO Q6HR PRN #7 04/30/17 [Rx] Tramadol HCl [Ultram] 50 mg PO TID PRN #10 04/30/17 [Rx] clonazePAM [Klonopin] 1 mg PO TID PRN #7 tablet 04/30/17 [Rx] 3 Allergy/AdvReac Type Severity Reaction Status Date / Time No Known Allergies Allergy Verified 03/23/17 11:28 All Systems PM: A 10-system review of systems was performed and is negative for pertinent findings except as documented above in the HPI. - Constitutional Constitutional: fever(s), no chills, no excessive sweating, no lethargy, no weakness, no weight gain, no weight loss - EENT Eyes: change in vision (left eye), no diplopia, no loss of peripheral vision, no loss of vision, no seeing flashes, no spots in vision Nose, mouth and throat: other (tongue numbness), no dysphagia, no nasal congestion, no sinus pressure, no sore throat - Cardiovascular Cardiovascular ROS IM: chest pain, syncope, no dyspnea, no palpitations - Respiratory Respiratory: no cough, no dyspnea, no wheezing, no chest congestion, no excessive phlegm production - Gastrointestinal Gastrointestinal: nausea, no abdominal pain, no diarrhea, no heartburn, no vomiting - Genitourinary Genitourinary: dysuria, urinary frequency, urinary urgency - Musculoskeletal Musculoskeletal ROS IM: arthralgias, no muscle cramps, no numbness, no tingling - Integumentary Integumentary IM: no new lesions, no rash - Neurological Neurological ROS: numbness, other visual disturbances, no abnormal speech, no confusion, no focal weakness, no loss of vision, no tingling, no weakness - Psychiatric Psychiatric: anxiety, depression - Endocrine Endocrine IM: no fatigue, no polydipsia, no polyphagia, no polyuria - Constitutional Vitals: Temp Pulse Resp BP Pulse Ox 99.4 F 75 18 115/68 96 05/09/17 02:09 05/09/17 03:21 05/09/17 03:21 05/09/17 03:21 05/09/17 03:21 General appearance: Present: cooperative, A&O X 3, morbidly obese, no acute distress, answers questions appropriately - Head Head exam: Present: atraumatic, normal inspection, normocephalic - Eye Eye exam: Present: EOMI, PERRL - ENT ENT exam: Present: mucous membranes moist, normal oropharynx - Neck Neck exam general surgery: Present: full ROM, normal inspection, supple. Absent : lymphadenopathy - Respiratory Respiratory exam: Present: CTAB (supplemental O2 via NC). Absent: accessory muscle use, rhonchi, wheezes - Cardiovascular Cardiovascular exam: Present: RRR, +S1, +S2 - GI/Abdominal GI/Abdominal exam: Present: normal bowel sounds, soft. Absent: guarding, rebound - Extremities Exam Extremities exam: Present: full ROM, warm, radial pulses palpable and symmetrical. Absent: pedal edema - Back Exam Back exam: Present: normal inspection. Absent: paraspinal tenderness, vertebral tenderness - Neurological Exam Neurological exam: Present: CN II-XII intact, oriented X3, no focal deficits. Absent: pronater drift, facial droop, speech deficit - Psychiatric Psychiatric exam: Present: anxious, normal mood - Skin Skin exam: Present: dry, erythema (mild erythema over bilateral shins, appears chronic), warm Internal Med - H&P Results - Labs CBC & Chem 7: 05/09/17 02:20 05/09/17 02:20 Labs: Short CBC 05/09/17 Range/Units 02:20 WBC 10.7 (4.3-11.1) K/mcL Hgb 10.8 L (11.5-15.4) g/dL Hct 36.2 (35.3-44.9) % Plt Count 300 (140-400) K/mcL Neutrophils # 6.8 (1.6-8.9) K/mcL BMP 05/09/17 02:20 Sodium 138 Potassium 3.0 L Chloride 92 L Carbon Dioxide 32 H BUN 30 H Creatinine 1.03 Glucose 259 H Calcium 9.7 Cardiac Enzymes 05/09/17 Range/Units 02:20 Troponin I 0.02 (0-0.03) ng/mL - EKG Data EKG shows normal: sinus rhythm (EKG reveals normal sinus rhythm at rate of 76, SC interval 133, QRS 84, QTc 455 with a normal axis. There are no acute ST changes, T-wave changes. Possible anterior myocardial infarction unchanged compared with old EKG 04/27/17) - EKG Data When compared to previous EKG: there is no significant change - Impressions ITS Impressions Head CT 05/09/17 02:24 IMPRESSION: No acute intracranial abnormality. D/ / Sharon Patino MD / Sharon Patino MD Interpreting Provider: Sharon Patino MD
[2017-05-09] MEDS ORDERED: Nitroglycerin 0.4 MG TAB.SUBL SL PRN (05:28)
[2017-05-09] MEDS ORDERED: Mag Hydrox/Al Hydrox/Simeth 30 ML UDC PO PRN (05:36)
[2017-05-09] MEDS ORDERED: *HR* OxyCODONE/APAP 5/325 TABLET PO PRN (05:36)
[2017-05-09] MEDS ORDERED: Ipratropium/Albuterol Neb 3 ML IH PRN (05:36)
[2017-05-09] MEDS ORDERED: NON-FORMULARY MEDICATION 1 EACH EACH (Oxygen [Oxygen] 2 L) NS PRN (05:36)
[2017-05-09] MEDS ORDERED: Dextrose Gel 15 GM PO PRN ×2 (06:01)
[2017-05-09] MEDS ORDERED: *HR* Dextrose 50 % in Water (Syg) 50 ML SYRINGE IVP PRN (06:01)
[2017-05-09] MEDS ORDERED: D5% in Water 1,000 ML IVC PRN (06:01)
--- NOTE | 2017-05-09 06:58 | Event Note ---
Date of Encounter: 05/09/17 Time of Encounter: 06:56 Patient seen and examined with medical consultant. Presented with syncopal episode likely due to orthostasis. Orthostatic vital signs will be checked. received fluids in the ER. She has changes of chronic venous diseases not suggestive of cellulitis. Hold valerie inhibitor and diuretics. Check carotid Doppler's. physical therapy occupational therapy to see the patient. In the ER she had an episode of chest pain. EKG without ischemic changes in initial troponin normal. Will check serial cardiac markers.
[2017-05-09] MEDS ORDERED: metOLazone 5 MG TABLET PO SCH (08:00)
[2017-05-09] MEDS ORDERED: NON-FORMULARY MEDICATION 1 EACH EACH (Insulin Aspart 0 UNIT) SQ SCH (08:00)
[2017-05-09] MEDS: Magnesium Oxide 400 MG TABLET PO SCH ×2 (08:54→21:34)
[2017-05-09] MEDS: Fenofibrate 54 MG TABLET PO SCH (08:54)
[2017-05-09] MEDS ORDERED: NON-FORMULARY MEDICATION 1 EACH EACH (Insulin Glargine [Lantus] 90 UNIT) SQ SCH (09:00)
[2017-05-09] MEDS ORDERED: *HR* Metformin 500 MG TABLET PO SCH (09:00)
[2017-05-09] MEDS: amLODIPine 5 MG TABLET PO SCH (09:03)
[2017-05-09] MEDS: Insulin LISPRO 300 UNITS/3 ML VIAL SQ SCH ×4 (09:04→21:35)
[2017-05-09] MEDS: Gabapentin 400 MG CAPSULE PO SCH ×3 (09:04→21:34)
[2017-05-09] MEDS: Metoprolol XL (24 HR) Succ 50 MG TAB.ER.24H PO SCH (09:04)
[2017-05-09] MEDS: Isosorbide MONOnitrate (24 HR) 60 MG TAB.ER.24H PO SCH (09:04)
[2017-05-09] MEDS: Aspirin 81 MG TAB.CHEW PO SCH (09:04)
[2017-05-09] MEDS: Bumetanide 1 MG TABLET PO SCH ×2 (09:04→18:05)
[2017-05-09] MEDS: Insulin DETEMIR 100 UNIT/ML X5UNITS SQ SCH ×2 (09:11→21:34)
[2017-05-09] MEDS: clonazePAM 1 MG TABLET PO PRN ×2 (10:46→21:41)
[2017-05-09] MEDS: Tiotropium 18 MCG inhalation IH SCH (10:53)
[2017-05-09] MEDS: traMADol 50 MG TABLET PO PRN ×2 (15:27→21:41)
[2017-05-09] MEDS: *HR* Heparin 5,000 UNIT/ML VIAL SQ SCH ×2 (15:31→21:35)
[2017-05-09] MEDS ORDERED: NON-FORMULARY MEDICATION 1 EACH EACH (Insulin Glargine [Lantus] 80 UNIT) SQ SCH (18:00)
[2017-05-09] MEDS ORDERED: *HR* Enoxaparin 120 MG/0.8 ML SYRINGE SQ SCH (18:00)
--- NOTE | 2017-05-09 18:01 | Electrocardiograph Report ---
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
[2017-05-09] MEDS: Ondansetron 4 MG/2 ML VIAL IVP PRN (18:07)
--- NOTE | 2017-05-09 18:32 | Event Note ---
Date of Encounter: 05/09/17 Time of Encounter: 13:00 Patient was admitted this morning secondary to syncope. She got up from bed to go to the bathroom felt "lightheaded and fell backwards onto the couch. She denies injury. She reports loss of consciousness. On exam she is in no acute distress, awake alert oriented 3 Head is atraumatic pupils equal round reactive to light extraocular movements intact face is symmetrical, tongue protrusion midline. Heart is regular S1-S2 no murmurs rubs or gallops Lungs clear to auscultation bilaterally Abdomen is obese soft nontender nondistended Laboratory data pertinent for potassium of 3.0. BUN of 30 Assessment: Syncope possibly secondary to vasovagal versus orthostatic reaction versus cardiac arrhythmia Plan: Monitor on telemetry and trend troponin. Check orthostatic vital signs. Gentle IV fluid hydration. Replete electrolytes.
[2017-05-09] MEDS: ARIPiprazole 10 MG TABLET PO SCH (21:34)
[2017-05-10] MEDS: traMADol 50 MG TABLET PO PRN ×2 (06:11→14:14)
[2017-05-10] MEDS: *HR* Heparin 5,000 UNIT/ML VIAL SQ SCH ×3 (06:11→21:24)
[2017-05-10 07:06] LABS: Prothrombin Time 10.6 Seconds (9.4-12.1)
[2017-05-10 07:08] LABS: Alanine Aminotransferase 18 Units/L (0-55); Albumin 2.9 g/dL (3.5-5.0); Albumin/Globulin Ratio 0.7 (1.1-2.2); Alkaline Phosphatase 69 Units/L (38-126); Aspartate Amino Transferase 24 Units/L (5-34); BUN/Creatinine Ratio 29 (6-26); Bilirubin,Total 0.2 mg/dL (0.2-1.2); Blood Urea Nitrogen 29 mg/dL (7-20); Calcium 9.1 mg/dL (8.6-10.8); Carbon Dioxide 39 mEq/L (19-29); Chloride 96 mEq/L (98-109); Glucose 184 mg/dL (70-99); Magnesium 1.6 mg/dL (1.6-2.6); Osmolality,Calculated 307 (280-300); Potassium 3.1 mEq/L (3.5-4.5); Sodium 143 mEq/L (136-145); Total Protein 6.9 g/dL (6.0-8.3); eGFR For African Americans > 60 (> 60); eGFR For Non-African Americans 56 (> 60)
[2017-05-10 07:14] LABS: Basophils # 0.1 K/mcL (0.0-0.2); Eosinophils # 0.3 K/mcL (0.0-0.6); Eosinophils % 3.2 %; Hemoglobin 10.5 g/dL (11.5-15.4); Immature Granulocytes % 0.9 % (0-4); Lymphocytes # 2.7 K/mcL (0.6-4.6); Lymphocytes % 33.1 %; Mean Corpuscular Hemoglobin 25.2 pg (28.0-33.3); Mean Corpuscular Volume 84.1 fL (83.0-100.0); Mean Platelet Volume 11.7 fL (9.4-12.4); Monocytes # 0.5 K/mcL (0.0-1.3); Monocytes % 6.1 %; Neutrophils # 4.6 K/mcL (1.6-8.9); Platelet Count 270 K/mcL (140-400); Red Blood Count 4.16 M/mcL (3.82-4.97); Red Cell Distribution Width 15.9 % (11.5-14.5); Segmented Neutrophils % 55.7 %
[2017-05-10] MEDS: Tiotropium 18 MCG inhalation IH SCH (07:37)
[2017-05-10] MEDS: Bumetanide 1 MG TABLET PO SCH ×2 (08:32→16:53)
[2017-05-10] MEDS: clonazePAM 1 MG TABLET PO PRN ×2 (08:32→21:24)
[2017-05-10] MEDS: Gabapentin 400 MG CAPSULE PO SCH ×3 (08:32→21:24)
[2017-05-10] MEDS: amLODIPine 5 MG TABLET PO SCH (08:33)
[2017-05-10] MEDS: Magnesium Oxide 400 MG TABLET PO SCH ×2 (08:33→21:24)
[2017-05-10] MEDS: Aspirin 81 MG TAB.CHEW PO SCH (08:34)
[2017-05-10] MEDS: Metoprolol XL (24 HR) Succ 50 MG TAB.ER.24H PO SCH (08:34)
[2017-05-10] MEDS: Isosorbide MONOnitrate (24 HR) 60 MG TAB.ER.24H PO SCH (08:34)
[2017-05-10] MEDS: Fenofibrate 54 MG TABLET PO SCH (08:35)
[2017-05-10] MEDS: Insulin LISPRO 300 UNITS/3 ML VIAL SQ SCH ×4 (08:40→21:26)
[2017-05-10] MEDS: Insulin DETEMIR 100 UNIT/ML X5UNITS SQ SCH ×2 (08:40→21:24)
[2017-05-10] MEDS: *HR* OxyCODONE/APAP 5/325 TABLET PO PRN ×2 (16:53→23:29)
[2017-05-10 17:40] LABS: Bilirubin,Urine Negative (Negative); Blood,Urine Negative (Negative); Clarity,Urine Clear (Clear); Color,Urine Yellow (Yellow); Glucose,Urine (UA) 100 mg/dL (Normal); Ketones,Urine Negative (Negative); Leukocyte Esterase,Urine Small (Negative); Nitrite,Urine Negative (Negative); PH,Urine 6.5 pH Units (5.0-8.0); Protein,Urine Negative (Neg-Trace); Specific Gravity,Urine 1.017 (1.010-1.025); Urobilinogen,Urine Normal (Normal)
[2017-05-10 17:52] LABS: Bacteria,Urine None Seen per hpf (None-Few); Hyaline Casts,Urine None Seen per lpf (None-Few); RBC,Urine 0-3 per hpf (0-3); Squamous Epithelial Cell,Urine Moderate per lpf (None-Few); WBC,Urine 15-30 per hpf (0-3)
[2017-05-10] MEDS: Ondansetron 4 MG/2 ML VIAL IVP PRN (19:53)
--- NOTE | 2017-05-10 20:03 | Internal Med Progress Note ---
Date of Encounter: 05/10/17 Time of Encounter: 09:00 - Assessment and plan (1) Right humeral fracture Current Visit: Yes Status: Acute Assessment and plan: Pain management. Orthopedic consult Qualifiers: Encounter type: initial encounter Humerus Location: surgical neck Fracture type: closed Fracture morphology: unspecified fracture morphology Fracture alignment: nondisplaced Qualified Code(s): S42.214A - Unspecified nondisplaced fracture of surgical neck of right humerus, initial encounter for closed fracture (2) Hypokalemia Current Visit: No Status: Resolved Assessment and plan: Will give patient potassium supplement (3) Chest pain Current Visit: No Status: Acute Assessment and plan: Patient denies chest pain today. 3 sets of troponin negative. Patient does had C in March, results are unremarkable. Qualifiers: Chest pain type: unspecified Qualified Code(s): R07.9 - Chest pain, unspecified (4) Syncope Current Visit: Yes Status: Acute Assessment and plan: Etiology is undetermined. - Continue cardiac monitoring to rule out arrhythmia. - Echocardiogram. - Duplex carotid bilaterally. - Orthostatic vitals has been done, no significant orthostatic hypotension identified Qualifiers: Syncope type: vasovagal syncope Qualified Code(s): R55 - Syncope and collapse (5) Hypothyroidism Current Visit: No Status: Chronic Assessment and plan: Continue home medications Qualifiers: Hypothyroidism type: acquired Qualified Code(s): E03.9 - Hypothyroidism, unspecified (6) UTI (urinary tract infection) Current Visit: No Status: Acute Assessment and plan: Urinalysis shows UTI, patient has symptoms of dysuria and burning. Will place patient on Rocephin. Follow-up urine culture (previous culture shows Escherichia coli sensitive to Rocephin). Qualifiers: Urinary tract infection type: site unspecified Hematuria presence: without hematuria Qualified Code(s): N39.0 - Urinary tract infection, site not specified (7) HTN (hypertension) Current Visit: No Status: Chronic Assessment and plan: Continue home medications Qualifiers: Hypertension type: essential hypertension Qualified Code(s): I10 - Essential (primary) hypertension (8) Diabetes Current Visit: No Status: Chronic Assessment and plan: Continue home medication basal and sliding significantly insulin 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 mellitus type: type 2 Diabetes mellitus complication status: without complication Diabetes mellitus oil heaterman insulin use: with oil heaterman use Qualified Code(s): E11.9 - Type 2 diabetes mellitus without complications ; Z79.4 - termite treater helper (current) use of insulin (9) Morbid obesity with BMI of 45.0-49.9, adult Current Visit: No Status: Chronic Assessment and plan: Need lifestyle modification or bariatric surgery after discharge (10) COPD (chronic obstructive pulmonary disease) Current Visit: No Status: Chronic Assessment and plan: Stable. Continue home medications Qualifiers: COPD type: emphysema Emphysema type: unspecified Qualified Code(s): J43.9 - Emphysema, unspecified (11) DVT prophylaxis Current Visit: No Status: Acute Assessment and plan: Heparin subcutaneously - Time Spent With Patient 25 - 35 minutes - Subjective Interval history: Patient is a 52-year-old female admitted for syncope. Past medical history is significant for CHF, COPD, CAD, diabetes, hypertension, osteoporosis, thyroid disease, TIA Patient was seen and examined. Complained of right arm pain. Denies dizziness or lightheaded. Denies palpitation. Patient said she has syncope when she tried to stand up from the couch. X-ray of right arm shows humerus neck fracture, orthopedic consult was called - Constitutional Vitals: Temp Pulse Resp BP Pulse Ox 97.8 F 86 18 149/79 88 05/10/17 15:51 05/10/17 15:51 05/10/17 15:51 05/10/17 15:51 05/10/17 15:51 General appearance: Present: cooperative, A&O X 3, morbidly obese, no acute distress, answers questions appropriately - Head Head exam: Present: atraumatic, normocephalic - Eye Eye exam: Present: PERRL, conjuntiva pink, sclera anicteric Pupils: Present: PERRL - Neck Neck exam general surgery: Present: supple, trachea midline. Absent: lymphadenopathy - Respiratory Respiratory exam: Present: CTAB. Absent: accessory muscle use, rales, rhonchi, wheezes - Cardiovascular Cardiovascular exam: Present: RRR, +S1, +S2. Absent: diastolic murmur, gallop, rubs, systolic murmur - GI/Abdominal GI/Abdominal exam: Present: normal bowel sounds, soft, no peritoneal signs. Absent: distended, tenderness - Extremities Exam Extremities exam: Present: tenderness (on right arm), warm, radial pulses palpable and symmetrical. Absent: calf tenderness, cyanotic, pedal edema - Neurological Exam Neurological exam: Present: CN II-XII intact, oriented X3, no focal deficits. Absent: pronater drift, facial droop, speech deficit - Skin Skin exam: Present: dry, intact Internal Medicine: Result - Labs CBC & Chem 7: 05/10/17 06:43 05/10/17 06:04 Labs: Short CBC 05/10/17 Range/Units 06:43 WBC 8.2 (4.3-11.1) K/mcL Hgb 10.5 L (11.5-15.4) g/dL Hct 35.0 L (35.3-44.9) % Plt Count 270 (140-400) K/mcL Neutrophils # 4.6 (1.6-8.9) K/mcL BMP 05/10/17 06:04 Sodium 143 Potassium 3.1 L Chloride 96 L Carbon Dioxide 39 H BUN 29 H Creatinine 1.01 Glucose 184 H Calcium 9.1 Liver Function 05/10/17 Range/Units 06:04 Total Bilirubin 0.2 (0.2-1.2) mg/dL AST 24 (5-34) Units/L ALT 18 (0-55) Units/L Alkaline Phosphatase 69 (38-126) Units/L Albumin 2.9 L (3.5-5.0) g/dL Urine 05/10/17 Range/Units 17:20 Urine Color Yellow (Yellow) Urine Clarity Clear (Clear) Urine pH 6.5 (5.0-8.0) pH Units Ur Specific [place] 1.017 (1.010-1.025) Urine Protein Negative (Neg-Trace) mg/dL Urine Glucose (UA) 100 H (Normal) mg/dL - ABG Interpretation ABG results: PT/INR, D-dimer PT 10.6 Seconds (9.4-12.1) 05/10/17 06:43 - Impressions Impressions Elbow X-Ray 05/10/17 14:19 IMPRESSION: No acute osseous abnormality of the right elbow. D/ / Jeffrey Thomason MD / Jeffrey Thomason MD Interpreting Provider: Jeffrey Thomason MD Humerus X-Ray 05/10/17 14:19 IMPRESSION: Right humeral neck fracture. Otherwise unremarkable right humerus. D/ / Jeffrey Thomason MD / Jeffrey Thomason MD Interpreting Provider: Jeffrey Thomason MD Shoulder X-Ray 05/10/17 14:19 IMPRESSION: Moderately impacted right humeral anatomic neck fracture. Mild right acromioclavicular osteoarthritis. Osteopenia. D/ / 05/10/2017 16:27:50 Kyaw Potts MD / lucy Interpreting Provider: Kyaw Potts MD Consult Discharge Plan - Plan Referrals: Corey Waddell DO [Primary Care Provider] -
[2017-05-10] MEDS: ARIPiprazole 10 MG TABLET PO SCH (21:24)
[2017-05-11] MEDS: *HR* Heparin 5,000 UNIT/ML VIAL SQ SCH ×3 (05:46→21:47)
[2017-05-11] MEDS: *HR* OxyCODONE/APAP 5/325 TABLET PO PRN (05:46)
[2017-05-11 06:32] LABS: Basophils # 0.1 K/mcL (0.0-0.2); Basophils % 0.9 %; Eosinophils # 0.3 K/mcL (0.0-0.6); Eosinophils % 3.2 %; Hematocrit 33.5 % (35.3-44.9); Hemoglobin 9.8 g/dL (11.5-15.4); Immature Granulocytes % 1.3 % (0-4); Lymphocytes # 2.9 K/mcL (0.6-4.6); Lymphocytes % 37.7 %; Mean Corpuscular HGB Conc 29.3 g/dL (31.6-35.5); Mean Corpuscular Hemoglobin 24.1 pg (28.0-33.3); Mean Corpuscular Volume 82.3 fL (83.0-100.0); Mean Platelet Volume 12.2 fL (9.4-12.4); Monocytes # 0.5 K/mcL (0.0-1.3); Monocytes % 5.8 %; Neutrophils # 3.9 K/mcL (1.6-8.9); Platelet Count 245 K/mcL (140-400); Red Blood Count 4.07 M/mcL (3.82-4.97); Red Cell Distribution Width 15.6 % (11.5-14.5); Segmented Neutrophils % 51.1 %
[2017-05-11 06:41] LABS: BUN/Creatinine Ratio 28 (6-26); Blood Urea Nitrogen 31 mg/dL (7-20); Calcium 8.8 mg/dL (8.6-10.8); Carbon Dioxide 32 mEq/L (19-29); Chloride 95 mEq/L (98-109); Glucose 284 mg/dL (70-99); Osmolality,Calculated 305 (280-300); Potassium 3.8 mEq/L (3.5-4.5); Sodium 139 mEq/L (136-145); eGFR For African Americans > 60 (> 60); eGFR For Non-African Americans 50 (> 60)
--- NOTE | 2017-05-11 07:44 | Orthopedic Consult Note ---
Date of Encounter: 05/11/17 Time of Encounter: 07:41 Assessment and Plan (1) Shoulder pain, right Current Visit: Yes Status: Acute I did discuss the diagnosis in detail with the patient. She did have an old proximal humerus fracture on the right. She may have an acute on chronic injury and to evaluate this further I will order CT scan of the right shoulder without contrast to evaluate for any acute fractures. My suspicion is that it will show an old healed fracture. If so I will recommend activities as tolerated to the right upper extremity. If there is any fracture, it is likely nondisplaced and will begin nonweightbearing activities with pendulum exercises. Qualifiers: Qualified Code(s): M25.511 - Pain in right shoulder History of Present Illness HPI: Ms. Lynch is a 61 year old female who is admitted to the hospitalist after a syncopal fall 2 days ago. Orthopedics was counseled to due to her right proximal humerus fracture. The patient indicates to me that she did break the proximal humerus back in July of last year and she had been managed as an outpatient nonoperatively and had gone on to heal her fracture. The current concern is for a reinjury. On my evaluation she complains of pain from the proximal shoulder radiating distally to the mid humeral region. Pain is worse with movement and better at rest. No numbness, tingling, or any other associated signs or symptoms. She denies any other significant acute pains. No other modifying factors. Past Med Surg Social Fam HX - Past Medical History Medical history: arthritis, CHF, COPD, coronary artery disease, diabetes, GERD, hyperlipidemia, hypertension, osteoporosis, thyroid disease, TIA, venous stasis , other Psychiatric history: anxiety, bipolar, depression, panic disorder - Past Surgical History Surgical History: angioplasty/stent, , cholecystectomy, hysterectomy - Social History Smoking Status: Former smoker Smokeless Tobacco Status: No Alcohol use: none Drug use: none - Family History Brother Family Member Ethnicity: Non- Living Status: Age at : 57 Cause of : Renal failure Hx Family Cardiac Disorders: Yes Father Adopted: No Family Member Ethnicity: Non- Living Status: Age at : 72 Cause of : "Dementia, heart problems" Hx Family Cardiac Disorders: Yes (HD, HLD, HTN, [place], Triple Bypass) Hx Family Neurologic Disorders: Yes (Dementia) Mother Adopted: No Family Member Ethnicity: Non- Living Status: Age at : 70 Cause of : DM, PNE Hx Family Cardiac Disorders: Yes (KS, HTN, HLD, Strokes x5) Hx Family Respiratory Disorders: No Hx Family Cancer: No Hx Family GI Disorders: No Hx Family Endocrine Disorder: Yes (DM) Hx Family Neuromuscular Disorders: No Hx Family Neurologic Disorders: Yes (Strokes) Hx Family HEENT Disorders: No Hx Family Autoimmune Disorders: No Medications and Allergies Budesonide/Formoterol 160/4.5 [Symbicort] 2 puff IH BIDR 04/21/15 [History] Levothyroxine [Synthroid] 100 mcg PO QAM 04/21/15 [History] Tiotropium [Spiriva] 18 mcg IH QAM 04/21/15 [History] metFORMIN [Glucophage] 1,000 mg PO BID 04/21/15 [History] Atorvastatin Calcium [Lipitor] 40 mg PO DAILY 02/04/16 [History] Montelukast [Singulair] 10 mg PO HS 02/04/16 [History] Oxygen 2 l NS AD PRN 03/17/16 [History] Insulin Glargine [Lantus] 80 unit SQ QPM 03/25/16 [History] Insulin Glargine [Lantus] 90 unit SQ QAM 03/25/16 [History] Albuterol Sulfate [Albuterol Inhaler] 2 puff IH Q4HR PRN 05/01/16 [History] Citalopram Hydrobromide [Citalopram HBr] 40 mg PO DAILY 05/01/16 [History] Ipratropium/Albuterol Neb [Duoneb] 3 ml IH Q6H PRN 05/01/16 [History] Raloxifene [Evista] 60 mg PO DAILY 05/01/16 [History] Aripiprazole [Abilify] 10 mg PO HS tablet 05/03/16 [Rx] Fenofibrate Nanocrystallized [Tricor] 145 mg PO DAILY 06/15/16 [History] Clopidogrel [Plavix] 75 mg PO QAM tablet 06/18/16 [Rx] Bumetanide 2 mg PO BID 11/21/16 [History] Aspirin 81 mg PO DAILY #60 tab.chew 12/06/16 [Rx] Nystatin POWDER [Nystop] 1 appl TP BID 12/14/16 [History] metOLazone [Zaroxolyn] 5 mg PO Q48H 12/31/16 [History] Potassium Chloride 20 meq PO BID 03/07/17 [History] Gabapentin [Neurontin] 800 mg PO TID #20 03/26/17 [Rx] Mag Hydrox/Al Hydrox/Simeth [Maalox] 30 ml PO Q6H PRN 30 Days 03/26/17 [Rx] Magnesium Oxide [Mag-Ox] 400 mg PO BID tab 03/26/17 [Rx] Isosorbide MONOnitrate (24 HR) [Imdur] 60 mg PO DAILY #30 04/08/17 [Rx] Amlodipine Besylate 2.5 mg PO DAILY 04/27/17 [History] Cholecalciferol (D-3) [Vitamin D] 1,000 unit PO DAILY 04/27/17 [History] Metoclopramide [Reglan] 10 mg PO TID 04/27/17 [History] Metoprolol XL (24 HR) Succ [Toprol Xl] 50 mg PO DAILY 04/27/17 [History] Omeprazole [PriLOSEC] 20 mg PO BID 04/27/17 [History] Promethazine [Phenergan] 25 mg PO BID PRN 04/27/17 [History] Lisinopril [Zestril] 5 mg PO DAILY #30 tablet 04/30/17 [Rx] Tramadol HCl [Ultram] 50 mg PO TID PRN #10 04/30/17 [Rx] clonazePAM [Klonopin] 1 mg PO TID PRN #7 tablet 04/30/17 [Rx] Insulin LISPRO [Humalog Kwikpen U-100] 2 - 10 unit SQ TID PRN 05/09/17 [History] 3 Allergy/AdvReac Type Severity Reaction Status Date / Time No Known Allergies Allergy Verified 03/23/17 11:28 All Systems Reviewed: Constitutional and musculoskeletal systems were reviewed and are negative unless otherwise stated in history of present illness. Physical Exam - Constitutional Vitals: Temp Pulse Resp BP Pulse Ox 97.5 F L 71 16 124/63 95 05/11/17 06:55 05/11/17 06:55 05/11/17 06:55 05/11/17 06:55 05/11/17 06:55 CONSTITUTIONAL -Vitals reviewed -The patient is well developed, well nourished, well groomed PSYCHIATRIC -Fully alert and oriented -Pleasant mood RIGHT UPPER EXTREMITY Inspection shows that the skin and the soft tissue envelope are intact. Moderate tenderness to palpation about the shoulder and mid humeral region. No other tenderness noted. No deformities, redness, or concern for infection. I can gently passively range the shoulder and the elbow with moderate pain in the shoulder region. Full motion of the wrist and the digits. The patient can actively flex and extend all digits, extend the thumb, cross the index and long fingers, make an okay sign, and oppose the thumb. The fingertips are all grossly sensate and well-perfused, and the radial artery pulse is 2+. Diagnostic Imaging: I did personally review and interpret old x-rays of the right shoulder from the winter of 2015 and last summer which show an old proximal humerus fracture which had gone on to heal. X-rays obtained yesterday do show deformity at the proximal humerus, however it is unclear if there is an acute fracture or if this is old healing. Results - Labs Result Diagrams: 05/11/17 04:45 05/11/17 04:45 Labs: Abnormal lab results Hgb 9.8 g/dL (11.5-15.4) L 05/11/17 04:45 Hct 33.5 % (35.3-44.9) L 05/11/17 04:45 MCV 82.3 fL (83.0-100.0) L 05/11/17 04:45 MCH 24.1 pg (28.0-33.3) L 05/11/17 04:45 MCHC 29.3 g/dL (31.6-35.5) L 05/11/17 04:45 RDW 15.6 % (11.5-14.5) H 05/11/17 04:45 Chloride 95 mEq/L (98-109) L 05/11/17 04:45 Carbon Dioxide 32 mEq/L (19-29) H 05/11/17 04:45 BUN 31 mg/dL (7-20) H 05/11/17 04:45 Est GFR (Non-Af Amer) 50 (> 60) L 05/11/17 04:45 BUN/Creatinine Ratio 28 (6-26) H 05/11/17 04:45 Glucose 284 mg/dL (70-99) H 05/11/17 04:45 POC Glucose 171 (58-89) H 05/10/17 07:14 Calculated Osmolality 305 (280-300) H 05/11/17 04:45 Albumin 2.9 g/dL (3.5-5.0) L 05/10/17 06:04 Globulin 4.0 g/dL (2.4-3.5) H 05/10/17 06:04 Albumin/Globulin Ratio 0.7 (1.1-2.2) L 05/10/17 06:04 Urine Glucose (UA) 100 mg/dL (Normal) H 05/10/17 17:20 Ur Leukocyte Esterase Small (Negative) H 05/10/17 17:20 Urine Microscopic WBC 15-30 per hpf (0-3) H 05/10/17 17:20 Ur Squamous Epith Cells Moderate per lpf (None-Few) H 05/10/17 17:20 Ur Culture Indicated? YES (NO) A 05/10/17 17:20 H & H 05/11/17 Range/Units 04:45 Hgb 9.8 L (11.5-15.4) g/dL Hct 33.5 L (35.3-44.9) % All other labs normal. Consult Discharge Plan - Plan Referrals: Corey Waddell, [Primary Care Provider] -
[2017-05-11] MEDS: Tiotropium 18 MCG inhalation IH SCH (08:05)
[2017-05-11] MEDS: Aspirin 81 MG TAB.CHEW PO SCH (09:44)
[2017-05-11] MEDS: Bumetanide 1 MG TABLET PO SCH ×2 (09:44→17:22)
[2017-05-11] MEDS: Gabapentin 400 MG CAPSULE PO SCH ×3 (09:44→21:43)
[2017-05-11] MEDS: Metoprolol XL (24 HR) Succ 50 MG TAB.ER.24H PO SCH (09:45)
[2017-05-11] MEDS: Isosorbide MONOnitrate (24 HR) 60 MG TAB.ER.24H PO SCH (09:45)
[2017-05-11] MEDS: Magnesium Oxide 400 MG TABLET PO SCH ×2 (09:45→21:43)
[2017-05-11] MEDS: Fenofibrate 54 MG TABLET PO SCH (09:45)
[2017-05-11] MEDS: Insulin LISPRO 300 UNITS/3 ML VIAL SQ SCH ×5 (11:09→21:48)
[2017-05-11] MEDS: clonazePAM 1 MG TABLET PO PRN (11:10)
[2017-05-11] MEDS: amLODIPine 5 MG TABLET PO SCH (11:12)
[2017-05-11] MEDS: Insulin DETEMIR 100 UNIT/ML X5UNITS SQ SCH ×2 (11:12→21:44)
[2017-05-11] MEDS ORDERED: BUPRENORPHINE TRANSDERMAL TP SCH (14:45)
--- NOTE | 2017-05-11 16:20 | Internal Med Progress Note ---
Date of Encounter: 05/11/17 Time of Encounter: 10:00 - Assessment and plan (1) Right humeral fracture Current Visit: Yes Status: Acute Assessment and plan: Pain management. Orthopedic consult appreciated. Qualifiers: Encounter type: initial encounter Humerus Location: surgical neck Fracture type: closed Fracture morphology: unspecified fracture morphology Fracture alignment: nondisplaced Qualified Code(s): S42.214A - Unspecified nondisplaced fracture of surgical neck of right humerus, initial encounter for closed fracture (2) Hypokalemia Current Visit: No Status: Resolved Assessment and plan: Improved after potassium supplement (3) Syncope Current Visit: Yes Status: Acute Assessment and plan: Etiology is undetermined. - Continue cardiac monitoring to rule out arrhythmia. - Echocardiogram done, no significant valve disease, hypertrophic obstructive cardiomyopathy, or pulmonary hypertension. - Duplex carotid bilaterally done, unremarkable. - Orthostatic vitals has been done, no significant orthostatic hypotension identified - Pt has no further syncope. - Continue closely monitor patient Qualifiers: Syncope type: vasovagal syncope Qualified Code(s): R55 - Syncope and collapse (4) Hypothyroidism Current Visit: No Status: Chronic Assessment and plan: Continue home medications Qualifiers: Hypothyroidism type: acquired Qualified Code(s): E03.9 - Hypothyroidism, unspecified (5) UTI (urinary tract infection) Current Visit: No Status: Acute Assessment and plan: Urinalysis shows UTI, patient has symptoms of dysuria and burning. Will place patient on Rocephin. Follow-up urine culture (previous culture shows Escherichia coli sensitive to Rocephin). Qualifiers: Urinary tract infection type: site unspecified Hematuria presence: without hematuria Qualified Code(s): N39.0 - Urinary tract infection, site not specified (6) HTN (hypertension) Current Visit: No Status: Chronic Assessment and plan: Continue home medications Qualifiers: Hypertension type: essential hypertension Qualified Code(s): I10 - Essential (primary) hypertension (7) Diabetes Current Visit: No Status: Chronic Assessment and plan: Continue home medication basal and sliding significantly insulin. Glucose is poorly controlled, will add prandial insulin 5 units with every meals. 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 mellitus type: type 2 Diabetes mellitus complication status: without complication Diabetes mellitus moth exterminator insulin use: with senior living use Qualified Code(s): E11.9 - Type 2 diabetes mellitus without complications ; Z79.4 - FDC (current) use of insulin (8) Morbid obesity with BMI of 45.0-49.9, adult Current Visit: No Status: Chronic Assessment and plan: Need lifestyle modification or bariatric surgery after discharge (9) COPD (chronic obstructive pulmonary disease) Current Visit: No Status: Chronic Assessment and plan: Stable. Continue home medications Qualifiers: COPD type: emphysema Emphysema type: unspecified Qualified Code(s): J43.9 - Emphysema, unspecified (10) DVT prophylaxis Current Visit: No Status: Acute Assessment and plan: Heparin subcutaneously - Time Spent With Patient 25 - 35 minutes - Subjective Interval history: Patient is a 52-year-old female admitted for syncope. Past medical history is significant for CHF, COPD, CAD, diabetes, hypertension, osteoporosis, thyroid disease, TIA Patient was seen and examined. Still complained of right arm pain. Denies dizziness or lightheaded. Denies palpitation. Orthopedic consult appreciated. Not candidate for surgery. Echo and duplex carotid done, results unremarkable. - Constitutional Vitals: Temp Pulse Resp BP Pulse Ox 97.8 F 83 16 105/46 93 05/11/17 15:29 05/11/17 15:29 05/11/17 15:29 05/11/17 15:29 05/11/17 15:29 General appearance: Present: cooperative, A&O X 3, morbidly obese, no acute distress, answers questions appropriately - Head Head exam: Present: atraumatic, normocephalic - Eye Eye exam: Present: PERRL, conjuntiva pink, sclera anicteric Pupils: Present: PERRL - Neck Neck exam general surgery: Present: supple, trachea midline. Absent: lymphadenopathy - Respiratory Respiratory exam: Present: CTAB. Absent: accessory muscle use, rales, rhonchi, wheezes - Cardiovascular Cardiovascular exam: Present: RRR, +S1, +S2. Absent: diastolic murmur, gallop, rubs, systolic murmur - GI/Abdominal GI/Abdominal exam: Present: normal bowel sounds, soft, no peritoneal signs. Absent: distended, tenderness - Extremities Exam Extremities exam: Present: tenderness (On right arm), warm, radial pulses palpable and symmetrical. Absent: calf tenderness, cyanotic, pedal edema - Neurological Exam Neurological exam: Present: CN II-XII intact, oriented X3, no focal deficits. Absent: pronater drift, facial droop, speech deficit - Skin Skin exam: Present: dry, intact Internal Medicine: Result - Labs CBC & Chem 7: 05/11/17 04:45 05/11/17 04:45 Labs: Short CBC 05/11/17 Range/Units 04:45 WBC 7.7 (4.3-11.1) K/mcL Hgb 9.8 L (11.5-15.4) g/dL Hct 33.5 L (35.3-44.9) % Plt Count 245 (140-400) K/mcL Neutrophils # 3.9 (1.6-8.9) K/mcL BMP 05/11/17 04:45 Sodium 139 Potassium 3.8 Chloride 95 L Carbon Dioxide 32 H BUN 31 H Creatinine 1.11 Glucose 284 H Calcium 8.8 Urine 05/10/17 Range/Units 17:20 Urine Color Yellow (Yellow) Urine Clarity Clear (Clear) Urine pH 6.5 (5.0-8.0) pH Units Ur Specific [place] 1.017 (1.010-1.025) Urine Protein Negative (Neg-Trace) mg/dL Urine Glucose (UA) 100 H (Normal) mg/dL - ABG Interpretation ABG results: PT/INR, D-dimer PT 10.6 Seconds (9.4-12.1) 05/10/17 06:43 - Impressions Impressions Elbow X-Ray 05/10/17 14:19 IMPRESSION: No acute osseous abnormality of the right elbow. D/ / Jeffrey Thomason MD / Jeffrey Thomason MD Interpreting Provider: Jeffrey Thomason MD Humerus X-Ray 05/10/17 14:19 IMPRESSION: Right humeral neck fracture. Otherwise unremarkable right humerus. D/ / Jeffrey Thomason MD / Jeffrey Thomason MD Interpreting Provider: Jeffrey Thomason MD Shoulder X-Ray 05/10/17 14:19 IMPRESSION: Moderately impacted right humeral anatomic neck fracture. Mild right acromioclavicular osteoarthritis. Osteopenia. D/ / 05/10/2017 16:27:50 Kyaw Potts MD / lucy Interpreting Provider: Kyaw Potts MD Shoulder CT 05/11/17 09:15 IMPRESSION: There is a healed, moderately impacted right humeral head and neck fracture. [id number] glenohumeral degenerative change. Small axillary pouch loose bodies. Mild AC degenerative change. D/ / 05/11/2017 09:42:57 Tommy Heard MD / zia Interpreting Provider: Tommy Heard MD Consult Discharge Plan - Plan Referrals: Corey Waddell DO [Primary Care Provider] -
[2017-05-11] MEDS ORDERED: Magnesium Sulfate 1 GM in D5% in Water 100 ML IVPB ONE (16:26)
[2017-05-11] MEDS: ARIPiprazole 10 MG TABLET PO SCH (21:43)
[2017-05-11] MEDS: traMADol 50 MG TABLET PO PRN (21:43)
[2017-05-11] MEDS: Ondansetron 4 MG/2 ML VIAL IVP PRN (21:56)
[2017-05-12] MEDS: *HR* Heparin 5,000 UNIT/ML VIAL SQ SCH ×2 (05:19→16:07)
[2017-05-12] MEDS: traMADol 50 MG TABLET PO PRN ×2 (05:22→10:40)
[2017-05-12 05:23] LABS: Basophils # 0.1 K/mcL (0.0-0.2); Basophils % 0.6 %; Eosinophils # 0.2 K/mcL (0.0-0.6); Eosinophils % 2.7 %; Hematocrit 32.4 % (35.3-44.9); Hemoglobin 9.8 g/dL (11.5-15.4); Immature Platelets 7.7 % (1.1-6.1); Lymphocytes % 33.7 %; Mean Corpuscular HGB Conc 30.2 g/dL (31.6-35.5); Mean Corpuscular Hemoglobin 25.2 pg (28.0-33.3); Mean Corpuscular Volume 83.3 fL (83.0-100.0); Mean Platelet Volume 11.5 fL (9.4-12.4); Monocytes # 0.5 K/mcL (0.0-1.3); Monocytes % 5.4 %; Nucleated Red Blood Cells 0.2 /100 WBC (0); Platelet Count 256 K/mcL (140-400); Red Blood Count 3.89 M/mcL (3.82-4.97); Red Cell Distribution Width 15.5 % (11.5-14.5); Segmented Neutrophils % 56.6 %
[2017-05-12 06:28] LABS: BUN/Creatinine Ratio 27 (6-26); Blood Urea Nitrogen 26 mg/dL (7-20); Calcium 8.8 mg/dL (8.6-10.8); Carbon Dioxide 33 mEq/L (19-29); Chloride 94 mEq/L (98-109); Glucose 238 mg/dL (70-99); Magnesium 2.1 mg/dL (1.6-2.6); Osmolality,Calculated 295 (280-300); Potassium 3.2 mEq/L (3.5-4.5); Sodium 136 mEq/L (136-145); eGFR For African Americans > 60 (> 60); eGFR For Non-African Americans 59 (> 60)
[2017-05-12 07:33] VITALS: BP 116/60
[2017-05-12] MEDS: Tiotropium 18 MCG inhalation IH SCH (08:01)
[2017-05-12] MEDS: Isosorbide MONOnitrate (24 HR) 60 MG TAB.ER.24H PO SCH (08:53)
[2017-05-12] MEDS: Fenofibrate 54 MG TABLET PO SCH (08:54)
[2017-05-12] MEDS: Bumetanide 1 MG TABLET PO SCH ×2 (08:55→16:08)
[2017-05-12] MEDS: clonazePAM 1 MG TABLET PO PRN ×2 (08:55→16:08)
[2017-05-12] MEDS: Ondansetron 4 MG/2 ML VIAL IVP PRN (08:55)
[2017-05-12] MEDS: Gabapentin 400 MG CAPSULE PO SCH ×2 (08:55→16:08)
[2017-05-12] MEDS: Aspirin 81 MG TAB.CHEW PO SCH (08:55)
[2017-05-12] MEDS: Metoprolol XL (24 HR) Succ 50 MG TAB.ER.24H PO SCH (08:56)
[2017-05-12] MEDS: Magnesium Oxide 400 MG TABLET PO SCH (08:56)
[2017-05-12] MEDS: amLODIPine 5 MG TABLET PO SCH (08:56)
[2017-05-12] MEDS: Insulin LISPRO 300 UNITS/3 ML VIAL SQ SCH ×6 (09:00→18:28)
[2017-05-12] MEDS: Insulin DETEMIR 100 UNIT/ML X5UNITS SQ SCH (09:04)
--- NOTE | 2017-05-12 12:27 | Discharge Summary ---
Date of Encounter: 05/12/17 Time of Encounter: 10:00 - Discharge Diagnosis (1) Right humeral fracture Priority: Primary Status: Acute Qualifiers: Encounter type: initial encounter Humerus Location: surgical neck Fracture type: closed Fracture morphology: unspecified fracture morphology Fracture alignment: nondisplaced Qualified Code(s): S42.214A - Unspecified nondisplaced fracture of surgical neck of right humerus, initial encounter for closed fracture (2) Hypokalemia Priority: Primary Status: Resolved (3) Syncope Priority: Primary Status: Acute Qualifiers: Syncope type: vasovagal syncope Qualified Code(s): R55 - Syncope and collapse (4) Hypothyroidism Priority: Secondary Status: Chronic Qualifiers: Hypothyroidism type: acquired Qualified Code(s): E03.9 - Hypothyroidism, unspecified (5) UTI (urinary tract infection) Priority: Primary Status: Acute Qualifiers: Urinary tract infection type: site unspecified Hematuria presence: without hematuria Qualified Code(s): N39.0 - Urinary tract infection, site not specified (6) HTN (hypertension) Priority: Secondary Status: Chronic Qualifiers: Hypertension type: essential hypertension Qualified Code(s): I10 - Essential (primary) hypertension (7) Diabetes Priority: Secondary Status: Chronic 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 mellitus type: type 2 Diabetes mellitus complication status: without complication Diabetes mellitus supervisor intermediates insulin use: with supervisor intermediates use Qualified Code(s): E11.9 - Type 2 diabetes mellitus without complications ; Z79.4 - FDC (current) use of insulin (8) Morbid obesity with BMI of 45.0-49.9, adult Priority: Secondary Status: Chronic (9) COPD (chronic obstructive pulmonary disease) Priority: Secondary Status: Chronic Qualifiers: COPD type: emphysema Emphysema type: unspecified Qualified Code(s): J43.9 - Emphysema, unspecified (10) DVT prophylaxis Priority: Secondary Status: Acute - Discharge Medications Prescriptions: clonazePAM [Klonopin] 1 mg PO TID PRN #7 tablet PRN Reason: Anxiety Nitrofurantoin (BID) [Macrobid] 100 mg PO BIDWM #6 Tramadol HCl [Ultram] 50 mg PO TID PRN #10 PRN Reason: Pain Home Medications: Budesonide/Formoterol 160/4.5 [Symbicort] 2 puff IH BIDR 04/21/15 [History] Levothyroxine [Synthroid] 100 mcg PO QAM 04/21/15 [History] Tiotropium [Spiriva] 18 mcg IH QAM 04/21/15 [History] metFORMIN [Glucophage] 1,000 mg PO BID 04/21/15 [History] Atorvastatin Calcium [Lipitor] 40 mg PO DAILY 02/04/16 [History] Montelukast [Singulair] 10 mg PO HS 02/04/16 [History] Oxygen 2 l NS AD PRN 03/17/16 [History] Insulin Glargine [Lantus] 80 unit SQ QPM 03/25/16 [History] Insulin Glargine [Lantus] 90 unit SQ QAM 03/25/16 [History] Albuterol Sulfate [Albuterol Inhaler] 2 puff IH Q4HR PRN 05/01/16 [History] Citalopram Hydrobromide [Citalopram HBr] 40 mg PO DAILY 05/01/16 [History] Ipratropium/Albuterol Neb [Duoneb] 3 ml IH Q6H PRN 05/01/16 [History] Raloxifene [Evista] 60 mg PO DAILY 05/01/16 [History] Aripiprazole [Abilify] 10 mg PO HS tablet 05/03/16 [Rx] Fenofibrate Nanocrystallized [Tricor] 145 mg PO DAILY 06/15/16 [History] Clopidogrel [Plavix] 75 mg PO QAM tablet 06/18/16 [Rx] Bumetanide 2 mg PO BID 11/21/16 [History] Aspirin 81 mg PO DAILY #60 tab.chew 12/06/16 [Rx] Nystatin POWDER [Nystop] 1 appl TP BID 12/14/16 [History] metOLazone [Zaroxolyn] 5 mg PO Q48H 12/31/16 [History] Potassium Chloride 20 meq PO BID 03/07/17 [History] Gabapentin [Neurontin] 800 mg PO TID #20 03/26/17 [Rx] Mag Hydrox/Al Hydrox/Simeth [Maalox] 30 ml PO Q6H PRN 30 Days 03/26/17 [Rx] Magnesium Oxide [Mag-Ox] 400 mg PO BID tab 03/26/17 [Rx] Isosorbide MONOnitrate (24 HR) [Imdur] 60 mg PO DAILY #30 04/08/17 [Rx] Amlodipine Besylate 2.5 mg PO DAILY 04/27/17 [History] Cholecalciferol (D-3) [Vitamin D] 1,000 unit PO DAILY 04/27/17 [History] Metoclopramide [Reglan] 10 mg PO TID 04/27/17 [History] Metoprolol XL (24 HR) Succ [Toprol Xl] 50 mg PO DAILY 04/27/17 [History] Omeprazole [PriLOSEC] 20 mg PO BID 04/27/17 [History] Promethazine [Phenergan] 25 mg PO BID PRN 04/27/17 [History] Lisinopril [Zestril] 5 mg PO DAILY #30 tablet 04/30/17 [Rx] Insulin LISPRO [Humalog Kwikpen U-100] 2 - 10 unit SQ TID PRN 05/09/17 [History] Buprenorphine [Butrans] 1 each TD QWEEK 05/11/17 [History] Nitrofurantoin (BID) [Macrobid] 100 mg PO BIDWM #6 05/12/17 [Rx] Tramadol HCl [Ultram] 50 mg PO TID PRN #10 05/12/17 [Rx] clonazePAM [Klonopin] 1 mg PO TID PRN #7 tablet 05/12/17 [Rx] Allergies/Adverse Reactions: 3 Allergy/AdvReac Type Severity Reaction Status Date / Time No Known Allergies Allergy Verified 03/23/17 11:28 Procedures/tests Complete & Pending: Procedures Performed prior 72 hours Category Date Time Status CT shoulder RT wo con [CT] Stat Cat Scan 05/11/17 09:15 Draft EV carotid duplex imaging BI Routine Y 05/11/17 Completed EV echocardiogram Routine Y 05/11/17 Completed - Notes to Outpatient Provider 1. Patient has a right arm fracture, please continue pain medication and follow -up with orthopedics as outpatient. 2. Patient has UTI, continue nitrofurantoin 100mg po bid for 3 more days. Date of admission: 05/09/17 04:51 Primary care physician: Corey Waddell, Consults: 05/09/17 11:44 Consult to Occupational Therapy [CONS] Routine Comment: Evaluate, develop and implement POC Reason for Consult: syncope Consult to Physical Therapy [CONS] Routine Comment: Evaluate, develop and implement POC Reason for Consult: syncope 05/10/17 08:56 Consult to School Leader [CONS] Routine Reason for SW Consult: PT/OT recommending SNF 05/10/17 19:53 Consult to Orthopedic Surgery [CONS] Routine Consulting Provider: [facility] Reason for Consult: Rt humeral neck fracture Call Completed: Yes Discharging clinician: Angy Julian Anticipated date of discharge: 05/12/17 - Patient Status Disposition: Transfer Inpatient Rehab Fac Condition: Fair Functional capacity at discharge: independent ambulation Overall status at discharge: patient is back to baseline - Discharge Instructions Follow Up With: Corey Waddell DO [Primary Care Provider] - - Diet and Activity Activity: as per physical therapy Diet: diabetic diet, low salt diet Interval History: HPI: Ms. Lynch is a 61 year old female with a PMH of uncontrolled diabetes, TIA, non -obstructive CAD with cardiac stents, HTN, HLD, oxygen dependent COPD, and morbid obesity that presented c/o unwitnessed syncopal episode after trying to stand up while getting out of bed around 12:30AM this morning. She lives at home alone and reports loss of consciousness for 5 minutes. Patient reports new tongue numbness, left eye blurriness, nausea, and left sided chest pain since awaking. The chest pain feels like needles in her left chest, is constant, and radiates to her right jaw. Pain severity is 7/10 and nothing makes the chest pain better or worse. She also reports low grade fever, redness in her bilateral shins, and dysuria. Patient denies chills, SOB, abd pain, vomiting, diarrhea, or leg edema. Of note, patient had last heart cath 04/07/17 which revealed patent stents in mid RCA, proximal LAD, and mild non-obstructive disease in Cx and negative nuclear stress test in October 2016. She is currently on ASA, statin, plavix, beta randy, and Imdur. Hospital course: Ms. Lynch is a 61 year old female admitted for syncope. Patient was placed on continuous cardiac monitoring, echocardiogram and duplex carotid has been done, results are unremarkable. Patient had orthostatic vitals, not support orthostatic hypotension. Patient has no further syncope episode during hospitalization. Patient complaining of right arm pain, x-ray shows right humerus fracture. Orthopedic consult was called, no surgery is needed. Patient was placed on sling and will follow-up with orthopedics as outpatient. Patient had PT OT evaluation, recommend rehabilitation discharge. Patient will discharge to rehabilitation center for further management. I saw and examined the patient today. She is awake alert, oriented 3. Complain mild right arm pain. No dizziness or lightheaded. Denies chest pain or shots of breath. Vitals are stable. Will discharge patient to rehabilitation center for further management. - Time Spent with Patient Total time spent providing and/or coordinating discharge services: 40 min Greater than 30 minutes - Constitutional Vitals: Temp Pulse Resp BP Pulse Ox 97.5 F L 60 18 116/60 93 05/12/17 07:33 05/12/17 07:33 05/12/17 08:02 05/12/17 07:05/12/17 08:02 General appearance: Present: cooperative, A&O X 3, morbidly obese, no acute distress, answers questions appropriately - Head Head exam: Present: atraumatic, normocephalic - Eye Eye exam: Present: PERRL, conjuntiva pink, sclera anicteric Pupils: Present: PERRL - Neck Neck exam general surgery: Present: supple, trachea midline. Absent: lymphadenopathy - Respiratory Respiratory exam: Present: CTAB. Absent: accessory muscle use, rales, rhonchi, wheezes - Cardiovascular Cardiovascular exam: Present: RRR, +S1, +S2. Absent: diastolic murmur, gallop, rubs, systolic murmur - GI/Abdominal GI/Abdominal exam: Present: normal bowel sounds, soft, no peritoneal signs. Absent: distended, tenderness - Extremities Exam Extremities exam: Present: warm, radial pulses palpable and symmetrical. Absent : calf tenderness, cyanotic, pedal edema - Neurological Exam Neurological exam: Present: CN II-XII intact, oriented X3, no focal deficits. Absent: pronater drift, facial droop, speech deficit - Skin Skin exam: Present: dry, intact
--- NOTE | 2017-05-12 12:46 | Physician Discharge Referral ---
ExtendedCare Referral Info Transfer To: Rehab Provider in Charge after Transfer: Other - Diagnosis (1) Right humeral fracture Status: Acute (2) Hypokalemia Status: Resolved (3) Syncope Status: Acute (4) Hypothyroidism Status: Chronic (5) UTI (urinary tract infection) Status: Acute (6) HTN (hypertension) Status: Chronic (7) Diabetes Status: Chronic (8) Morbid obesity with BMI of 45.0-49.9, adult Status: Chronic (9) COPD (chronic obstructive pulmonary disease) Status: Chronic (10) DVT prophylaxis Status: Acute - Transfer Medications Prescriptions: clonazePAM [Klonopin] 1 mg PO TID PRN #7 tablet PRN Reason: Anxiety Nitrofurantoin (BID) [Macrobid] 100 mg PO BIDWM #6 Tramadol HCl [Ultram] 50 mg PO TID PRN #10 PRN Reason: Pain Home Medications: Budesonide/Formoterol 160/4.5 [Symbicort] 2 puff IH BIDR 04/21/15 [History] Levothyroxine [Synthroid] 100 mcg PO QAM 04/21/15 [History] Tiotropium [Spiriva] 18 mcg IH QAM 04/21/15 [History] metFORMIN [Glucophage] 1,000 mg PO BID 04/21/15 [History] Atorvastatin Calcium [Lipitor] 40 mg PO DAILY 02/04/16 [History] Montelukast [Singulair] 10 mg PO HS 02/04/16 [History] Oxygen 2 l NS AD PRN 03/17/16 [History] Insulin Glargine [Lantus] 80 unit SQ QPM 03/25/16 [History] Insulin Glargine [Lantus] 90 unit SQ QAM 03/25/16 [History] Albuterol Sulfate [Albuterol Inhaler] 2 puff IH Q4HR PRN 05/01/16 [History] Citalopram Hydrobromide [Citalopram HBr] 40 mg PO DAILY 05/01/16 [History] Ipratropium/Albuterol Neb [Duoneb] 3 ml IH Q6H PRN 05/01/16 [History] Raloxifene [Evista] 60 mg PO DAILY 05/01/16 [History] Aripiprazole [Abilify] 10 mg PO HS tablet 05/03/16 [Rx] Fenofibrate Nanocrystallized [Tricor] 145 mg PO DAILY 06/15/16 [History] Clopidogrel [Plavix] 75 mg PO QAM tablet 06/18/16 [Rx] Bumetanide 2 mg PO BID 11/21/16 [History] Aspirin 81 mg PO DAILY #60 tab.chew 12/06/16 [Rx] Nystatin POWDER [Nystop] 1 appl TP BID 12/14/16 [History] metOLazone [Zaroxolyn] 5 mg PO Q48H 12/31/16 [History] Potassium Chloride 20 meq PO BID 03/07/17 [History] Gabapentin [Neurontin] 800 mg PO TID #20 03/26/17 [Rx] Mag Hydrox/Al Hydrox/Simeth [Maalox] 30 ml PO Q6H PRN 30 Days 03/26/17 [Rx] Magnesium Oxide [Mag-Ox] 400 mg PO BID tab 03/26/17 [Rx] Isosorbide MONOnitrate (24 HR) [Imdur] 60 mg PO DAILY #30 04/08/17 [Rx] Amlodipine Besylate 2.5 mg PO DAILY 04/27/17 [History] Cholecalciferol (D-3) [Vitamin D] 1,000 unit PO DAILY 04/27/17 [History] Metoclopramide [Reglan] 10 mg PO TID 04/27/17 [History] Metoprolol XL (24 HR) Succ [Toprol Xl] 50 mg PO DAILY 04/27/17 [History] Omeprazole [PriLOSEC] 20 mg PO BID 04/27/17 [History] Promethazine [Phenergan] 25 mg PO BID PRN 04/27/17 [History] Lisinopril [Zestril] 5 mg PO DAILY #30 tablet 04/30/17 [Rx] Insulin LISPRO [Humalog Kwikpen U-100] 2 - 10 unit SQ TID PRN 05/09/17 [History] Buprenorphine [Butrans] 1 each TD QWEEK 05/11/17 [History] Nitrofurantoin (BID) [Macrobid] 100 mg PO BIDWM #6 05/12/17 [Rx] Tramadol HCl [Ultram] 50 mg PO TID PRN #10 09/14/17 [Rx] clonazePAM [Klonopin] 1 mg PO TID PRN #7 tablet 05/12/17 [Rx] Allergies/Adverse Reactions: 3 Allergy/AdvReac Type Severity Reaction Status Date / Time No Known Allergies Allergy Verified 03/23/17 11:28 - Respiratory Orders Smoking Cessation: Smoking cessation has been advised. For more information, call the [place] Tobacco Quit Line at 7-591-OOYF-NOW. - Advance Directives Code Status: Full Code - Rehabiliation Orders Rehab Orders: Evaluation for Physical Therapy, Evaluation for Occupational Therapy - Diet Orders No Concentrated Sweets, Cardiac CERTIFICATION: I certify that the transfer of the above named patient to an Extended Care Facility is necessary for the continuing treatment of the diagnosis listed. The above information is true and accurate reflection of patient's current condition. Confidential - Redisclosure prohibited without a patient's written consent.
[2017-05-12] MEDS ORDERED: Nitrofurantoin (BID) 100 MG CAPSULE PO SCH (17:00)
--- NOTE | 2017-05-16 20:42 | Electrocardiograph Report ---
[place] [id number] Test Date: 2017-05-12 Pat Name: Claire Lynch Department: 111 Room: 2NE29 Gender: F Rn Allergy: CORA : 1955 Requested By: Angy Julian Order Number: [id number] Reading MD: Maged Cleaning MD Measurements Intervals [place] Rate: 64 P: 18 AK: 135 QRS: 27 QRSD: 85 T: 15 QT: 459 QTc: 469 Interpretive Statements SINUS RHYTHM LOW QRS VOLTAGE IN PRECORDIAL LEADS POSSIBLE ANTERIOR MYOCARDIAL INFARCTION, PROBABLY OLD Electronically Signed On 05-16-2017 20:41:05 EDT by Maged Cleaning MD
== END 2017-05-12 19:23 ==
LOC: EMEROO 02:08 → 2NENU 02:08 → SUATTDRO 04:51 → 2NENU 05:29
PROVIDERS: ADMIT Internal Medicine Hematology & Oncology; ATTEND Internal Medicine

== ENCOUNTER 2017-06-26 08:03 | Inpatient (IN) ==
[2017-06-26] MEDS ORDERED: 0.9 % Sodium Chloride 500 ML IVC ONE (08:28)
[2017-06-26] MEDS: Nitroglycerin 0.4 MG TAB.SUBL SL ONE ×2 (08:35→09:00)
--- NOTE | 2017-06-26 08:36 | Emergency Department Note ---
Disposition Clinical Impression: Chest pain Qualifiers: Chest pain type: unspecified Qualified Code(s): R07.9 - Chest pain, unspecified Disposition: Admitted As Inpatient Condition: Fair Time of Disposition: 11:55 Chest Pain HPI - General Chief Complaint: ED Upper Respiratory Infection Stated Complaint: cough, headache, rhinnorhea Time Seen by Provider: 06/26/17 08:06 Source: patient Mode of arrival: EMS Limitations: no limitations Vital Signs Reviewed: Yes Nursing Notes Reviewed: Yes - History of Present Illness HPI Narrative: Patient presents to the ED via EMS with the chief complaint of chest pain. Patient reports that the pain woke her up from sleep this morning at 5 AM. Described as sharp pleuritic localized to the left central chest. It radiates down her left arm and into her neck. Associated with sinus congestion, cough, shortness of breath and a headache. Some nausea but no vomiting. No diaphoresis or cyanosis. States she has a history of coronary artery disease and this feels like her previous MIs. Severity scale (1-10): 7 - Related Data Home Medications Medication Instructions Recorded Confirmed Budesonide/Formoterol 160/4.5 2 puff IH BIDR 04/21/15 06/26/17 [Symbicort] Levothyroxine [Synthroid] 100 mcg PO QAM 04/21/15 06/26/17 Tiotropium [Spiriva] 18 mcg IH QAM 04/21/15 06/26/17 metFORMIN [Glucophage] 1,000 mg PO BID 04/21/15 06/26/17 Atorvastatin Calcium [Lipitor] 40 mg PO DAILY 02/04/16 06/26/17 Montelukast [Singulair] 10 mg PO HS 02/04/16 06/26/17 Oxygen 2 l NS AD PRN 03/17/16 06/26/17 Insulin Glargine [Lantus] 80 unit SQ QPM 03/25/16 06/26/17 Insulin Glargine [Lantus] 90 unit SQ QAM 03/25/16 06/26/17 Albuterol Sulfate [Albuterol 2 puff IH Q4HR PRN 05/01/16 06/26/17 Inhaler] Citalopram Hydrobromide 40 mg PO DAILY 05/01/16 06/26/17 [Citalopram HBr] Raloxifene [Evista] 60 mg PO DAILY 05/01/16 06/26/17 Fenofibrate Nanocrystallized 145 mg PO DAILY 06/15/16 06/26/17 [Tricor] Cholecalciferol (D-3) [Vitamin D] 1,000 unit PO DAILY 04/27/17 06/26/17 Metoclopramide [Reglan] 10 mg PO TID 04/27/17 06/26/17 Metoprolol XL (24 HR) Succ [Toprol 50 mg PO DAILY 04/27/17 06/26/17 Xl] Insulin LISPRO [Humalog Kwikpen 2 - 10 unit SQ TID PRN 05/09/17 06/26/17 U-100] clonazePAM [Klonopin] 1 mg PO TID PRN 05/28/17 06/26/17 Bumetanide 2 mg PO BID 06/11/17 06/26/17 Buprenorphine [Butrans] 1 patch TD QWEEK 06/11/17 06/26/17 Buspirone HCl [Buspar] 15 mg PO TID 06/11/17 06/26/17 Gabapentin [Neurontin] 800 mg PO 5XD 06/11/17 06/26/17 Omeprazole [PriLOSEC] 20 mg PO BIDAC 06/11/17 06/26/17 Potassium Chloride 20 meq PO BID 06/11/17 06/26/17 Tizanidine HCl [Zanaflex] 4 mg PO TID 06/11/17 06/26/17 amLODIPine [Norvasc] 2.5 mg PO DAILY 06/11/17 06/26/17 metOLazone [Zaroxolyn] 2.5 mg PO DAILY 06/11/17 06/26/17 Isosorbide MONOnitrate (24 HR) 90 mg PO DAILY 06/26/17 06/26/17 [Imdur] [place]-3 Fatty Acids/Fish Oil [Fish 1 cap PO DAILY 06/26/17 06/26/17 Oil 1,000 mg Softgel] Oxycodone HCl/Acetaminophen 1 tab PO Q6H PRN 06/26/17 06/26/17 [Percocet 5-325 mg Tablet] cephALEXin [Keflex] 500 mg PO TID 06/26/17 06/26/17 Nortriptyline [Pamelor] 25 mg PO HS 06/27/17 06/27/17 Previous Rx's Medication Instructions Recorded Aripiprazole [Abilify] 10 mg PO HS tablet 05/03/16 Clopidogrel [Plavix] 75 mg PO QAM tablet 06/18/16 Aspirin 81 mg PO DAILY #60 tab.chew 12/06/16 Mag Hydrox/Al Hydrox/Simeth 30 ml PO Q6H PRN 30 Days oral.susp 03/26/17 [Maalox] Tramadol HCl [Ultram] 50 mg PO TID PRN #10 05/12/17 Magnesium Oxide [Mag-Ox] 400 mg PO DAILY #0 tab 05/29/17 Allergies Allergy/AdvReac Type Severity Reaction Status Date / Time No Known Allergies Allergy Verified 06/11/17 00:04 All systems ED: reviewed and negative except as stated. Constitutional: Denies: fever Cardiovascular: Reports: chest pain Respiratory: Reports: cough, dyspnea Gastrointestinal: Reports: nausea Neurological: Reports: headache Chest Pain PMH - Past Medical History Medical history: Reports: arthritis, CHF, COPD, coronary artery disease, diabetes, GERD, hyperlipidemia, hypertension, osteoporosis, renal disease, thyroid disease, TIA, venous stasis, other Surgical history: Reports: angioplasty/stent, , cholecystectomy, hysterectomy Psychiatric history: Reports: anxiety, bipolar, depression, panic disorder [employer] history: Reports: bilateral tubal ligation - Social History Smoking Status: Former smoker Alcohol use: Reports: none Drug use: Reports: none Physical Exam - General Limitations: no limitations General appearance: alert, in no apparent distress - Head Head exam: atraumatic, normocephalic, normal inspection - Eye Eye exam: Present: normal appearance, PERRL, EOMI - Chest Chest inspection: Present: normal inspection, symmetric chest wall rise - Respiratory Respiratory exam: Present: normal lung sounds bilaterally - Cardiovascular Cardiovascular exam: Present: regular rate, normal rhythm, normal heart sounds - Abdominal Exam Abdominal exam: Present: soft, Non-Tender. Absent: tenderness, distention, guarding, rebound, rigidity - Extremities Exam Extremities exam: Present: pedal edema, other (Chronic venous stasis changes) - Neurological Exam Neurological exam: Present: alert, oriented X3 - Psychiatric Psychiatric exam: Present: depressed, flat affect - Skin Skin exam: Present: warm, dry, intact, normal color Course Course Narrative: Patient presenting with chest pain. History of coronary artery disease with stents. We will workup and admit. Patient also reportedly was hypoxic for EMS , so we will add on a d-dimer to evaluate for PE. - Reevaluation(s) Reevaluation #1: D-dimer normal. Troponin normal. We will admit for chest pain rule out. Vital Signs Temperature 98.0 F 06/26/17 08:05 Pulse Rate 84 06/26/17 08:05 Respiratory Rate 18 06/26/17 08:05 Blood Pressure 135/60 06/26/17 08:05 O2 Sat by Pulse Oximetry 96 06/26/17 08:05 Temperature 97.6 F 06/27/17 04:16 Pulse Rate 68 06/27/17 06:58 Respiratory Rate 16 06/27/17 07:40 Blood Pressure 113/83 06/27/17 06:58 O2 Sat by Pulse Oximetry 91 06/27/17 07:40 Oxygen Delivery Oxygen Delivery Room Air Chest Pain - Medical Records Medical records reviewed: Yes I reviewed the patient's medical records. - Lab Data Lab results reviewed: Yes I reviewed the patient's lab results. Result diagrams: 06/27/17 04:38 06/27/17 04:38 Lab Results 06/26/17 06/26/17 06/26/17 Range/Units 08:35 08:35 08:35 WBC 11.9 H (4.3-11.1) K/mcL RBC 4.49 (3.82-4.97) M/mcL Hgb 11.4 L (11.5-15.4) g/dL Hct 37.3 (35.3-44.9) % MCV 83.1 (83.0-100.0) fL MCH 25.4 L (28.0-33.3) pg MCHC 30.6 L (31.6-35.5) g/dL RDW 17.3 H (11.5-14.5) % Plt Count 258 (140-400) K/mcL MPV 11.4 (9.4-12.4) fL Immature Gran % 1.4 (0-4) % Seg Neutrophils % 61.0 % Lymphocytes % 28.9 % Monocytes % 5.8 % Eosinophils % 2.1 % Basophils % 0.8 % Neutrophils # 7.3 (1.6-8.9) K/mcL Lymphocytes # 3.5 (0.6-4.6) K/mcL Monocytes # 0.7 (0.0-1.3) K/mcL Eosinophils # 0.3 (0.0-0.6) K/mcL Basophils # 0.1 (0.0-0.2) K/mcL Nucleated RBCs/100 WBC 0.2 H (0) /100 WBC PT 10.3 (9.4-12.1) Seconds INR 1.0 APTT 27.0 (26.0-36.0) Seconds D-Dimer < 215 (0-500) ng/mLFEU Sodium 135 L (136-145) mEq/L Potassium 3.7 (3.5-4.5) mEq/L Chloride 94 L (98-109) mEq/L Carbon Dioxide 31 H (19-29) mEq/L BUN 32 H (7-20) mg/dL Creatinine 1.23 H (0.57-1.11) mg/dL Est GFR ( Amer) 54 L (> 60) Est GFR (Non-Af Amer) 45 L (> 60) BUN/Creatinine Ratio 26 (6-26) Glucose 224 H (70-99) mg/dL Calculated Osmolality 294 (280-300) Calcium 9.8 (8.6-10.8) mg/dL Troponin I (0-0.03) ng/mL Urine Color (Yellow) Urine Clarity (Clear) Urine pH (5.0-8.0) pH Units Ur Specific [place] (1.010-1.025) Urine Protein (Neg-Trace) mg/dL Urine Glucose (UA) (Normal) mg/dL Urine Ketones (Negative) mg/dL Urine Blood (Negative) Urine Nitrite (Negative) Urine Bilirubin (Negative) Urine Urobilinogen (Normal) mg/dL Ur Leukocyte Esterase (Negative) Urine Microscopic RBC (0-3) per hpf Urine Microscopic WBC (0-3) per hpf Ur Squamous Epith Cells (None-Few) per lpf Urine Bacteria (None-Few) per hpf Hyaline Casts (None-Few) per lpf Ur Culture Indicated? (NO) 06/26/17 06/26/17 Range/Units 08:35 08:54 WBC (4.3-11.1) K/mcL RBC (3.82-4.97) M/mcL Hgb (11.5-15.4) g/dL Hct (35.3-44.9) % MCV (83.0-100.0) fL MCH (28.0-33.3) pg MCHC (31.6-35.5) g/dL RDW (11.5-14.5) % Plt Count (140-400) K/mcL MPV (9.4-12.4) fL Immature Gran % (0-4) % Seg Neutrophils % % Lymphocytes % % Monocytes % % Eosinophils % % Basophils % % Neutrophils # (1.6-8.9) K/mcL Lymphocytes # (0.6-4.6) K/mcL Monocytes # (0.0-1.3) K/mcL Eosinophils # (0.0-0.6) K/mcL Basophils # (0.0-0.2) K/mcL Nucleated RBCs/100 WBC (0) /100 WBC PT (9.4-12.1) Seconds INR APTT (26.0-36.0) Seconds D-Dimer (0-500) ng/mLFEU Sodium (136-145) mEq/L Potassium (3.5-4.5) mEq/L Chloride (98-109) mEq/L Carbon Dioxide (19-29) mEq/L BUN (7-20) mg/dL Creatinine (0.57-1.11) mg/dL Est GFR ( Amer) (> 60) Est GFR (Non-Af Amer) (> 60) BUN/Creatinine Ratio (6-26) Glucose (70-99) mg/dL Calculated Osmolality (280-300) Calcium (8.6-10.8) mg/dL Troponin I 0.00 (0-0.03) ng/mL Urine Color Yellow (Yellow) Urine Clarity Clear (Clear) Urine pH 6.5 (5.0-8.0) pH Units Ur Specific [place] 1.014 (1.010-1.025) Urine Protein Negative (Neg-Trace) mg/dL Urine Glucose (UA) 100 H (Normal) mg/dL Urine Ketones Negative (Negative) mg/dL Urine Blood Negative (Negative) Urine Nitrite Positive A (Negative) Urine Bilirubin Negative (Negative) Urine Urobilinogen Normal (Normal) mg/dL Ur Leukocyte Esterase Trace H (Negative) Urine Microscopic RBC 0-3 (0-3) per hpf Urine Microscopic WBC 5-15 H (0-3) per hpf Ur Squamous Epith Cells Moderate H (None-Few) per lpf Urine Bacteria Many H (None-Few) per hpf Hyaline Casts None Seen (None-Few) per lpf Ur Culture Indicated? YES A (NO) - Radiology Data Radiology results reviewed: Yes I reviewed the patient's radiology results. Chest X-Ray 06/26/17 08:28 IMPRESSION: No acute cardiopulmonary disease. D/ / Everett Panda MD / Everett Panda MD Interpreting Provider: Everett Panda MD Attestation Statement - Attestation Attestation: I examined this patient and my medical decision-making was reviewed with the Resident Physician, Dr. Lynch. I agree with the documented findings, disposition and treatment plan as described except to the extent set forth below. Patient is a 61-year-old white female with a history of hyperlipidemia, hypertension, diabetes, with prior recent cardiac evaluation here at [facility]. Patient is brought to us this morning by EMS for complaints of central chest pain that began a few hours prior to arrival which patient complains is radiating to the left arm and neck. Patient also has had associated sinus congestion, cough which is nonproductive, complains of associated shortness of breath. Patient denies any abdominal pain associated nausea vomiting, no diaphoresis, no flank pain or urinary symptoms. Patient does have a history of chronic recurrent UTIs and is currently on antibiotics for that. I agree with patient's physical exam findings as documented. Vital signs on arrival are stable and patient was in no acute respiratory distress. Patient's EKG did not show any acute ischemia. There were no significant changes compared to prior EKG. Patient did receive aspirin by EMS in route. Patient underwent extensive laboratory evaluation including chest x-ray, cardiac enzymes and d-dimer. We also repeated a urinalysis due to the patient's history of recurrent UTIs. Patient does have extensive risk factors for cardiac disease. All patient's lab evaluation was unremarkable with the exception of ongoing presence of urinary tract infection. Patient's troponin was negative, patient's d-dimer was negative and remainder of labs are unremarkable. Patient's sensitivity reports were reviewed in regards to her recent urine cultures and it appears that her urine sensitivity shows sensitivity to cefepime. This was initiated in the ED. Patient's blood pressure remained stable and she was afebrile throughout her ED course. Patient will be admitted for further evaluation of chest pain. Also for ongoing urinary tract infection resistant to outpatient management. Case was discussed with the hospitalist to accept the patient for admission.
[2017-06-26 08:43] LABS: Basophils # 0.1 K/mcL (0.0-0.2); Basophils % 0.8 %; Eosinophils # 0.3 K/mcL (0.0-0.6); Eosinophils % 2.1 %; Hematocrit 37.3 % (35.3-44.9); Hemoglobin 11.4 g/dL (11.5-15.4); Immature Granulocytes % 1.4 % (0-4); Lymphocytes # 3.5 K/mcL (0.6-4.6); Lymphocytes % 28.9 %; Mean Corpuscular HGB Conc 30.6 g/dL (31.6-35.5); Mean Corpuscular Hemoglobin 25.4 pg (28.0-33.3); Mean Corpuscular Volume 83.1 fL (83.0-100.0); Mean Platelet Volume 11.4 fL (9.4-12.4); Monocytes # 0.7 K/mcL (0.0-1.3); Monocytes % 5.8 %; Neutrophils # 7.3 K/mcL (1.6-8.9); Nucleated Red Blood Cells 0.2 /100 WBC (0); Platelet Count 258 K/mcL (140-400); Red Blood Count 4.49 M/mcL (3.82-4.97); Red Cell Distribution Width 17.3 % (11.5-14.5)
[2017-06-26 08:46] LABS: Prothrombin Time 10.3 Seconds (9.4-12.1)
[2017-06-26 08:57] LABS: D-Dimer < 215 ng/mLFEU (0-500)
[2017-06-26 08:59] LABS: Calcium 9.8 mg/dL (8.6-10.8); Potassium 3.7 mEq/L (3.5-4.5)
[2017-06-26 09:06] LABS: Bilirubin,Urine Negative (Negative); Blood,Urine Negative (Negative); Clarity,Urine Clear (Clear); Color,Urine Yellow (Yellow); Glucose,Urine (UA) 100 mg/dL (Normal); Ketones,Urine Negative (Negative); Leukocyte Esterase,Urine Trace (Negative); Nitrite,Urine Positive (Negative); PH,Urine 6.5 pH Units (5.0-8.0); Protein,Urine Negative (Neg-Trace); Specific Gravity,Urine 1.014 (1.010-1.025); Urobilinogen,Urine Normal (Normal)
[2017-06-26 09:08] LABS: Bacteria,Urine Many per hpf (None-Few); Hyaline Casts,Urine None Seen per lpf (None-Few); RBC,Urine 0-3 per hpf (0-3); Squamous Epithelial Cell,Urine Moderate per lpf (None-Few)
[2017-06-26] MEDS ORDERED: Cefepime HCl 1,000 MG in D5% in Water (Mini-Bag+) 100 ML IVPB STA (10:12)
[2017-06-26] MEDS ORDERED: Cefepime HCl 1,000 MG in Water for inj. (sterile) 10 ML IVP ONE (11:00)
[2017-06-26] MEDS ORDERED: Ondansetron 4 MG/2 ML VIAL IVP PRN (12:28)
[2017-06-26] MEDS ORDERED: Acetaminophen 325 MG TABLET PO PRN (12:28)
[2017-06-26] MEDS ORDERED: Naloxone 0.4 MG/ML INJ IVP PRN (12:28)
--- NOTE | 2017-06-26 13:09 | Internal Med History&Physical ---
<Jeanie Ruiz - Last Filed: 06/26/17 14:18> Date of Encounter: 06/26/17 Time of Encounter: 12:00 Assessment and Plan (1) Chest pain Current visit: Yes Status: Acute Patient was awakened at 5 AM with midsternal chest pain rating to her left chest and left arm and neck. She does have a history of CAD stent placement she had a left heart catheter 04/07/2017 at that time stent to mid RCA was patent , mild Don obstructive disease. EKG with no abnormalities troponin was 0 which we will continue to trend Continuous cardiac monitoring We will continue with aspirin and statin beta randy and Imdur Nitrates as needed for chest pain Continue with oxygen titrated to maintain SPO2 greater than 92% Consult cardiology as needed Qualifiers: Chest pain type: unspecified Qualified Code(s): R07.9 - Chest pain, unspecified (2) UTI (urinary tract infection) Current visit: No Status: Acute Patient has been experiencing urinary symptoms of dysuria and urgency she has been treated for UTI the past few weeks on Bactrim and Keflex. Recent culture grew enterbacte cloacage complex. UA is positive UTI. We will initiate on cefepime previous culture sensitive. Send off for urine culture pending sensitivity Qualifiers: Urinary tract infection type: site unspecified Hematuria presence: without hematuria Qualified Code(s): N39.0 - Urinary tract infection, site not specified (3) Bipolar 1 disorder Current visit: Yes Status: Acute Presently controlled we will continue with home medications (4) GERD (gastroesophageal reflux disease) Current visit: No Status: Chronic Continue with Prilosec Qualifiers: Esophagitis presence: without esophagitis Qualified Code(s): K21.9 - Gastro -esophageal reflux disease without esophagitis (5) COPD (chronic obstructive pulmonary disease) Current visit: No Status: Chronic Presently stable we will continue with oxygen and bronchodilators and Singulair Qualifiers: COPD type: emphysema Emphysema type: panlobular Qualified Code(s): J43.1 - Panlobular emphysema (6) Hypothyroidism Current visit: No Status: Chronic Presently stable we will continue with Synthroid Qualifiers: Hypothyroidism type: acquired Qualified Code(s): E03.9 - Hypothyroidism, unspecified (7) Type 2 diabetes mellitus Current visit: No Status: Chronic Accu-Cheks before meals at bedtime with sliding scale insulin as well as discharged . Diabetic diet 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 mellitus complication status: with neurologic complications Diabetes mellitus complication detail: with polyneuropathy Diabetes mellitus terminal worker insulin use: with terminal worker use Qualified Code(s): E11.42 - Type 2 diabetes mellitus with diabetic polyneuropathy; Z79.4 - intermediate card tender (current) use of insulin; Z79.4 - intermediate card tender (current) use of insulin; Z79.4 - intermediate card tender ( current) use of insulin; Z79.4 - intermediate card tender (current) use of insulin (8) DVT prophylaxis Current visit: No Status: Acute [facility] Internal Medicine - H&P: HPI Chief complaint: CP Admitted From: Emergency Dept Plans for Post Hospital Care: Home History of present illness: Ms. Lynch is a 61 year old female past medical history of arthritis congestive heart failure COPD WITH OXYGEN USE CAD with stent placement diabetes GERD hypertension hyperlipidemia thyroid disease TIA bipolar/anxiety. Cor into the patient she was awakened this a.m. by midsternal sharp chest pain 10 out of 10 which radiated down her left arm into her neck. She does complain of associated symptoms of sinus congestion cough shortness of breath and headaches. She was nauseated however no vomiting. She does have a history of coronary artery disease with stent placement she did undergo left heart catheter 04/07/2017 which showed patent stents and mild nonobstructive disease. She was given nitroglycerin in the ER which did reduce her pain. Lab work did reveal a UTI which patient states she has been treated for the past few weeks. It appears that previous culture 05/20/2017 grew enterbacter coloace complex she was on Bactrim and Keflex. She continues to experience urinary symptoms of urgency and dysuria no hematuria. She was initiated on cefepime which was sensitive in the ER. She has been admitted for further workup and evaluation. Presently patient denies any chest pain or shortness of breath at this time she is hemodynamically stable. I did review his case with Dr. Floyd who agrees with plan. P Past Med Surg Social Fam HX - Past Medical History Medical history: arthritis, CHF, COPD, coronary artery disease, diabetes, GERD, hyperlipidemia, hypertension, osteoporosis, renal disease, thyroid disease, TIA , venous stasis, other Psychiatric history: anxiety, bipolar, depression, panic disorder - Past Surgical History Surgical History: angioplasty/stent, , cholecystectomy, hysterectomy - Social History Smoking Status: Former smoker Smokeless Tobacco Status: No Alcohol use: none Drug use: none - Family History Brother Adopted: No Family Member Ethnicity: Non- Living Status: Hx Family Cardiac Disorders: Yes Father Adopted: No Family Member Ethnicity: Non- Living Status: Hx Family Cardiac Disorders: Yes (HD, HLD, HTN, FL, Triple Bypass) Hx Family Neurologic Disorders: Yes (Dementia) Mother Adopted: No Family Member Ethnicity: Non- Living Status: Hx Family Cardiac Disorders: Yes (FL, HTN, HLD, Strokes x5) Hx Family Respiratory Disorders: No Hx Family Cancer: No Hx Family GI Disorders: No Hx Family Endocrine Disorder: Yes (DM) Hx Family Neuromuscular Disorders: No Hx Family Neurologic Disorders: Yes (Strokes) Hx Family HEENT Disorders: No Hx Family Autoimmune Disorders: No Internal Medicine - H&P: Meds Budesonide/Formoterol 160/4.5 [Symbicort] 2 puff IH BIDR 04/21/15 [History] Levothyroxine [Synthroid] 100 mcg PO QAM 04/21/15 [History] Tiotropium [Spiriva] 18 mcg IH QAM 04/21/15 [History] metFORMIN [Glucophage] 1,000 mg PO BID 04/21/15 [History] Atorvastatin Calcium [Lipitor] 40 mg PO DAILY 02/04/16 [History] Montelukast [Singulair] 10 mg PO HS 02/04/16 [History] Oxygen 2 l NS AD PRN 03/17/16 [History] Insulin Glargine [Lantus] 80 unit SQ QPM 03/25/16 [History] Insulin Glargine [Lantus] 90 unit SQ QAM 03/25/16 [History] Albuterol Sulfate [Albuterol Inhaler] 2 puff IH Q4HR PRN 05/01/16 [History] Citalopram Hydrobromide [Citalopram HBr] 40 mg PO DAILY 05/01/16 [History] Raloxifene [Evista] 60 mg PO DAILY 05/01/16 [History] Aripiprazole [Abilify] 10 mg PO HS tablet 05/03/16 [Rx] Fenofibrate Nanocrystallized [Tricor] 145 mg PO DAILY 06/15/16 [History] Clopidogrel [Plavix] 75 mg PO QAM tablet 06/18/16 [Rx] Aspirin 81 mg PO DAILY #60 tab.chew 12/06/16 [Rx] Mag Hydrox/Al Hydrox/Simeth [Maalox] 30 ml PO Q6H PRN 30 Days oral.susp [Rx] Cholecalciferol (D-3) [Vitamin D] 1,000 unit PO DAILY 04/27/17 [History] Metoclopramide [Reglan] 10 mg PO TID 04/27/17 [History] Metoprolol XL (24 HR) Succ [Toprol Xl] 50 mg PO DAILY 04/27/17 [History] Insulin LISPRO [Humalog Kwikpen U-100] 2 - 10 unit SQ TID PRN 05/09/17 [History] Tramadol HCl [Ultram] 50 mg PO TID PRN #10 05/12/17 [Rx] clonazePAM [Klonopin] 1 mg PO TID PRN 05/28/17 [History] Magnesium Oxide [Mag-Ox] 400 mg PO DAILY #0 tab 05/29/17 [Rx] Bumetanide 2 mg PO BID 06/11/17 [History] Buprenorphine [Butrans] 1 patch TD QWEEK 06/11/17 [History] Buspirone HCl [Buspar] 15 mg PO TID 06/11/17 [History] Gabapentin [Neurontin] 800 mg PO 5XD 06/11/17 [History] Omeprazole [PriLOSEC] 20 mg PO BIDAC 06/11/17 [History] Potassium Chloride 20 meq PO BID 06/11/17 [History] Tizanidine HCl [Zanaflex] 4 mg PO TID 06/11/17 [History] amLODIPine [Norvasc] 2.5 mg PO DAILY 06/11/17 [History] metOLazone [Zaroxolyn] 2.5 mg PO DAILY 06/11/17 [History] Isosorbide MONOnitrate (24 HR) [Imdur] 90 mg PO DAILY 06/26/17 [History] [place]ak-3 Fatty Acids/Fish Oil [Fish Oil 1,000 mg Softgel] 1 cap PO DAILY [History] Oxycodone HCl/Acetaminophen [Percocet 5-325 mg Tablet] 1 tab PO Q6H PRN [History] cephALEXin [Keflex] 500 mg PO TID 06/26/17 [History] 3 Allergy/AdvReac Type Severity Reaction Status Date / Time No Known Allergies Allergy Verified 06/11/17 00:04 All Systems PM: A 10-system review of systems was performed and is negative for pertinent findings except as documented above in the HPI. - Constitutional Constitutional: no chills, no fever(s), no night sweats - EENT Eyes: no change in vision, no discharge, no pain, no photophobia Nose, mouth and throat: no dysphagia, no nasal discharge, no neck pain, no sore throat - Cardiovascular Cardiovascular ROS IM: chest pain, dyspnea - Respiratory Respiratory: no cough, no dyspnea, no wheezing, no excessive phlegm production - Gastrointestinal Gastrointestinal: no abdominal pain, no diarrhea, no hematemesis, no hematochezia, no melena, no nausea, no vomiting - Genitourinary Genitourinary: dysuria, urinary urgency, no change in urinary stream, no flank pain, no hematuria - Musculoskeletal Musculoskeletal ROS IM: no numbness, no tingling - Integumentary Integumentary IM: no rash, no unusual bruising - Neurological Neurological ROS: no confusion, no convulsions, no focal weakness, no numbness, no tingling, no tremor(s) - Hematologic/Lymphatic Hematologic/Lymphatic: no easy bruising - Constitutional Vitals: Temp Pulse Resp BP Pulse Ox 98.2 F 77 16 91/63 91 06/26/17 10:55 06/26/17 10:55 06/26/17 10:55 06/26/17 10:55 06/26/17 10:55 General appearance: Present: A&O X 3, answers questions appropriately - Head Head exam: Present: atraumatic, normocephalic - Eye Eye exam: Present: PERRL, conjuntiva pink, sclera anicteric Pupils: Present: PERRL - Neck Neck exam general surgery: Present: supple, trachea midline. Absent: lymphadenopathy - Respiratory Respiratory exam: Present: wheezes. Absent: accessory muscle use, rales, rhonchi - Cardiovascular Cardiovascular exam: Present: RRR, +S1, +S2. Absent: diastolic murmur, gallop, rubs, systolic murmur - GI/Abdominal GI/Abdominal exam: Present: normal bowel sounds, soft, no peritoneal signs. Absent: distended, tenderness - Extremities Exam Extremities exam: Present: warm, radial pulses palpable and symmetrical. Absent : calf tenderness, cyanotic, pedal edema - Neurological Exam Neurological exam: Present: CN II-XII intact, oriented X3, no focal deficits. Absent: pronater drift, facial droop, speech deficit - Skin Skin exam: Present: dry, intact Internal Med - H&P Results - Labs CBC & Chem 7: 06/26/17 08:35 06/26/17 08:35 - EKG Data EKG shows normal: sinus rhythm - EKG Data Prior EKG available for review: yes When compared to previous EKG: there is no significant change - Diagnostic Studies Other Images Additional comments: Chest X-Ray 06/26/17 08:28 IMPRESSION: No acute cardiopulmonary disease. D/ / Everett Panda MD / Everett Panda MD Interpreting Provider: Everett Panda MD <Michael Floyd - Last Filed: 06/26/17 18:54> Date of Encounter: 06/26/17 Internal Medicine - H&P: HPI History of present illness: Ms. Lynch is a 61 year old female All Systems PM: A 10-system review of systems was performed and is negative for pertinent findings except as documented above in the HPI. - Constitutional Vitals: Temp Pulse Resp BP Pulse Ox 97.6 F 88 16 122/71 91 06/26/17 16:01 06/26/17 16:01 06/26/17 16:01 06/26/17 16:01 06/26/17 16:01 Internal Med - H&P Results - Labs CBC & Chem 7: 06/26/17 08:35 06/26/17 08:35 Labs: Cardiac Enzymes 06/26/17 Range/Units 12:49 Troponin I 0.00 (0-0.03) ng/mL - Attending Attestation I have personally performed a face to face evaluation on this patient. I have reviewed and agree with the care plan. History and Exam by me shows: Pt admitted for UTI and chest pain. Currently comfortable. Heart not tachy No wheeze Agree with assessment and plan as above.
[2017-06-26] MEDS: *HR* OxyCODONE/APAP 5/325 TABLET PO PRN ×2 (13:20→20:15)
[2017-06-26] MEDS ORDERED: *HR* Dextrose 50 % in Water (Syg) 50 ML SYRINGE IVP PRN (13:53)
[2017-06-26] MEDS ORDERED: D5% in Water 1,000 ML IVC PRN (13:53)
[2017-06-26] MEDS ORDERED: Dextrose Gel 15 GM PO PRN ×2 (13:53)
[2017-06-26] MEDS ORDERED: Albuterol 2.5 MG/3 ML NEBULIZER IH PRN (13:56)
[2017-06-26] MEDS ORDERED: Cefepime HCl 1,000 MG in D5% in Water (Mini-Bag+) 100 ML IVPB SCH (16:00)
[2017-06-26] MEDS: Cefepime HCl 1,000 MG in Water for inj. (sterile) 10 ML IVP SCH ×2 (17:26→23:27)
[2017-06-26] MEDS: Gabapentin 400 MG CAPSULE PO SCH ×2 (17:28→20:15)
[2017-06-26] MEDS: Insulin LISPRO 300 UNITS/3 ML VIAL SQ SCH ×2 (17:28→20:16)
[2017-06-26] MEDS: tiZANidine 4 MG TABLET PO SCH ×2 (17:28→20:15)
[2017-06-26] MEDS: Bumetanide 1 MG TABLET PO SCH (17:28)
[2017-06-26] MEDS ORDERED: NON-FORMULARY MEDICATION 1 EACH EACH (Insulin Glargine [Lantus] 80 UNIT) SQ SCH (18:00)
[2017-06-26] MEDS: clonazePAM 1 MG TABLET PO PRN (20:15)
[2017-06-26] MEDS: Insulin DETEMIR 100 UNIT/ML X5UNITS SQ SCH (20:15)
[2017-06-26] MEDS: ARIPiprazole 10 MG TABLET PO SCH (20:15)
[2017-06-26] MEDS: Budesonide/Formoterol 160/4.5 MDI IH SCH (20:53)
[2017-06-27] MEDS: *HR* OxyCODONE/APAP 5/325 TABLET PO PRN ×4 (03:33→22:23)
[2017-06-27 05:06] LABS: Basophils # 0.1 K/mcL (0.0-0.2); Basophils % 0.8 %; Eosinophils # 0.2 K/mcL (0.0-0.6); Hemoglobin 11.1 g/dL (11.5-15.4); Immature Granulocytes % 1.1 % (0-4); Lymphocytes # 3.2 K/mcL (0.6-4.6); Lymphocytes % 30.1 %; Mean Corpuscular Hemoglobin 25.3 pg (28.0-33.3); Mean Corpuscular Volume 84.3 fL (83.0-100.0); Mean Platelet Volume 11.6 fL (9.4-12.4); Monocytes # 0.5 K/mcL (0.0-1.3); Neutrophils # 6.5 K/mcL (1.6-8.9); Platelet Count 247 K/mcL (140-400); Red Blood Count 4.39 M/mcL (3.82-4.97); Red Cell Distribution Width 17.3 % (11.5-14.5)
[2017-06-27 05:42] LABS: BUN/Creatinine Ratio 28 (6-26); Blood Urea Nitrogen 30 mg/dL (7-20); Calcium 9.3 mg/dL (8.6-10.8); Carbon Dioxide 31 mEq/L (19-29); Chloride 101 mEq/L (98-109); Glucose 130 mg/dL (70-99); Magnesium 1.9 mg/dL (1.6-2.6); Osmolality,Calculated 296 (280-300); Potassium 3.8 mEq/L (3.5-4.5); Sodium 139 mEq/L (136-145); eGFR For African Americans > 60 (> 60); eGFR For Non-African Americans 53 (> 60)
[2017-06-27] MEDS ORDERED: *HR* Enoxaparin 40 MG/0.4 ML SYRINGE SQ SCH (07:00)
[2017-06-27] MEDS: Tiotropium 18 MCG inhalation IH SCH (07:40)
[2017-06-27] MEDS: Budesonide/Formoterol 160/4.5 MDI IH SCH ×2 (07:41→19:52)
[2017-06-27] MEDS ORDERED: NON-FORMULARY MEDICATION 1 EACH EACH (Insulin Glargine [Lantus] 90 UNIT) SQ SCH (09:00)
[2017-06-27] MEDS ORDERED: Isosorbide MONOnitrate (24 HR) 60 MG TAB.ER.24H PO SCH (09:00)
[2017-06-27] MEDS ORDERED: traMADol 50 MG TABLET PO PRN (09:13)
[2017-06-27] MEDS ORDERED: NON-FORMULARY MEDICATION 1 EACH EACH (Oxygen [Oxygen] 2 L) NS PRN (09:13)
[2017-06-27] MEDS ORDERED: BUPRENORPHINE TP SCH (09:15)
--- NOTE | 2017-06-27 09:19 | Internal Med Progress Note ---
Date of Encounter: 06/27/17 Time of Encounter: 09:19 - Assessment and plan (1) UTI (urinary tract infection) Current Visit: Yes Status: Acute Assessment and plan: Recurrent despite prior outpatient abx. Currently on IV Cefipime. Awaiting further culture results to guide therapy. Qualifiers: Urinary tract infection type: acute cystitis Hematuria presence: without hematuria Qualified Code(s): N30.00 - Acute cystitis without hematuria (2) Type 2 diabetes mellitus Current Visit: Yes Status: Chronic Assessment and plan: Continue accuchecks and coverage. 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 mellitus complication status: with neurologic complications Diabetes mellitus complication detail: with polyneuropathy Diabetes mellitus termite inspector insulin use: with prison use Qualified Code(s): E11.42 - Type 2 diabetes mellitus with diabetic polyneuropathy; Z79.4 - jail (current) use of insulin; Z79.4 - middle or intermediate school principal (current) use of insulin; Z79.4 - jail ( current) use of insulin; Z79.4 - jail (current) use of insulin (3) Atypical chest pain Current Visit: No Status: Chronic Assessment and plan: Imdur increased to 120mg daily. Continue to follow. (4) Bipolar 1 disorder Current Visit: Yes Status: Chronic Assessment and plan: Continue home meds. (5) GERD (gastroesophageal reflux disease) Current Visit: No Status: Chronic Assessment and plan: Continue home meds. Qualifiers: Esophagitis presence: without esophagitis Qualified Code(s): K21.9 - Gastro -esophageal reflux disease without esophagitis (6) Morbid obesity with BMI of 45.0-49.9, adult Current Visit: Yes Status: Chronic (7) Chronic diastolic CHF (congestive heart failure) Current Visit: No Status: Chronic Assessment and plan: Continue home meds. (8) HTN (hypertension) Current Visit: No Status: Chronic Assessment and plan: Controlled. Continue home meds. Qualifiers: Hypertension type: essential hypertension Qualified Code(s): I10 - Essential (primary) hypertension (9) Fibromyalgia Current Visit: No Status: Chronic Assessment and plan: Continue home pain meds. - Subjective Interval history: Ms. Lynch is currently admitted for recurrent UTI despite abx therapy as outpatient. She remains moderate to high risk due to potential for worsening clinical status. Ms Lynch is still having a lot of dysuria. No fever or chills. No GI issues. Says urine has strong odor. No chest pain at this time. - Constitutional Vitals: Temp Pulse Resp BP Pulse Ox 97.6 F 68 16 113/83 91 06/27/17 04:16 06/27/17 06:58 06/27/17 07:40 06/27/17 06:58 06/27/17 07:40 General appearance: Present: A&O X 3, answers questions appropriately - Head Head exam: Present: normocephalic - Eye Eye exam: Present: conjuntiva pink - ENT ENT exam: Present: mucous membranes moist - Respiratory Respiratory exam: Present: decreased breath sounds. Absent: rhonchi, wheezes - Cardiovascular Cardiovascular exam: Present: RRR. Absent: tachycardia - GI/Abdominal GI/Abdominal exam: Present: soft. Absent: tenderness - Extremities Exam Extremities exam: Present: warm. Absent: tenderness - Neurological Exam Neurological exam: Present: alert, oriented X3 Internal Medicine: Result - Labs CBC & Chem 7: 06/27/17 04:38 06/27/17 04:38 Labs: Short CBC 06/27/17 Range/Units 04:38 WBC 10.6 (4.3-11.1) K/mcL Hgb 11.1 L (11.5-15.4) g/dL Hct 37.0 (35.3-44.9) % Plt Count 247 (140-400) K/mcL Neutrophils # 6.5 (1.6-8.9) K/mcL BMP 06/27/17 04:38 Sodium 139 Potassium 3.8 Chloride 101 Carbon Dioxide 31 H BUN 30 H Creatinine 1.06 Glucose 130 H Calcium 9.3 Cardiac Enzymes 06/26/17 06/26/17 Range/Units 12:49 19:11 Troponin I 0.00 0.00 (0-0.03) ng/mL - ABG Interpretation ABG results: PT/INR, D-dimer PT 10.3 Seconds (9.4-12.1) 06/26/17 08:35 D-Dimer < 215 ng/mLFEU (0-500) 06/26/17 08:35 Consult Discharge Plan - Plan Referrals: Corey Waddell DO [Primary Care Provider] -
[2017-06-27] MEDS: Insulin LISPRO 300 UNITS/3 ML VIAL SQ SCH ×4 (09:58→20:17)
[2017-06-27] MEDS: Fenofibrate 54 MG TABLET PO SCH (10:27)
[2017-06-27] MEDS: Cholecalciferol (D-3) 1,000 UNIT TABLET PO SCH (10:27)
[2017-06-27] MEDS: amLODIPine 5 MG TABLET PO SCH (10:27)
[2017-06-27] MEDS: Metoprolol XL (24 HR) Succ 50 MG TAB.ER.24H PO SCH (10:27)
[2017-06-27] MEDS: Magnesium Oxide 400 MG TABLET PO SCH (10:27)
[2017-06-27] MEDS: tiZANidine 4 MG TABLET PO SCH ×3 (10:27→20:17)
[2017-06-27] MEDS: Aspirin 81 MG TAB.CHEW PO SCH (10:27)
[2017-06-27] MEDS: Isosorbide MONOnitrate (24 HR) 60 MG TAB.ER.24H PO SCH (10:27)
[2017-06-27] MEDS: Cefepime HCl 1,000 MG in Water for inj. (sterile) 10 ML IVP SCH ×3 (10:28→17:19)
[2017-06-27] MEDS: metOLazone 2.5 MG TABLET PO SCH (10:28)
[2017-06-27] MEDS: Bumetanide 1 MG TABLET PO SCH ×2 (10:28→16:18)
[2017-06-27] MEDS: Gabapentin 400 MG CAPSULE PO SCH ×3 (10:28→20:17)
[2017-06-27] MEDS: Insulin DETEMIR 100 UNIT/ML X5UNITS SQ SCH ×2 (10:35→20:17)
[2017-06-27] MEDS: clonazePAM 1 MG TABLET PO PRN ×2 (10:35→16:17)
[2017-06-27] MEDS: ARIPiprazole 10 MG TABLET PO SCH (20:17)
[2017-06-28] MEDS: Cefepime HCl 1,000 MG in Water for inj. (sterile) 10 ML IVP SCH ×4 (00:30→23:59)
[2017-06-28] MEDS: *HR* Enoxaparin 40 MG/0.4 ML SYRINGE SQ SCH (06:05)
[2017-06-28] MEDS: *HR* OxyCODONE/APAP 5/325 TABLET PO PRN ×3 (06:05→21:39)
[2017-06-28] MEDS: Budesonide/Formoterol 160/4.5 MDI IH SCH ×2 (07:58→20:41)
[2017-06-28] MEDS: Tiotropium 18 MCG inhalation IH SCH (07:58)
[2017-06-28] MEDS: Fenofibrate 54 MG TABLET PO SCH (08:38)
[2017-06-28] MEDS: Insulin LISPRO 300 UNITS/3 ML VIAL SQ SCH ×4 (08:38→21:35)
[2017-06-28] MEDS: amLODIPine 5 MG TABLET PO SCH (08:38)
[2017-06-28] MEDS: clonazePAM 1 MG TABLET PO PRN ×2 (08:38→17:27)
[2017-06-28] MEDS: Cholecalciferol (D-3) 1,000 UNIT TABLET PO SCH (08:39)
[2017-06-28] MEDS: Aspirin 81 MG TAB.CHEW PO SCH (08:39)
[2017-06-28] MEDS: metOLazone 2.5 MG TABLET PO SCH (08:39)
[2017-06-28] MEDS: Gabapentin 400 MG CAPSULE PO SCH ×3 (08:39→21:34)
[2017-06-28] MEDS: tiZANidine 4 MG TABLET PO SCH ×3 (08:39→21:34)
[2017-06-28] MEDS: Isosorbide MONOnitrate (24 HR) 60 MG TAB.ER.24H PO SCH (08:39)
[2017-06-28] MEDS: Magnesium Oxide 400 MG TABLET PO SCH (08:39)
[2017-06-28] MEDS: Metoprolol XL (24 HR) Succ 50 MG TAB.ER.24H PO SCH (08:39)
[2017-06-28] MEDS: Bumetanide 1 MG TABLET PO SCH ×2 (08:39→17:27)
[2017-06-28] MEDS: Insulin DETEMIR 100 UNIT/ML X5UNITS SQ SCH ×2 (12:49→21:35)
--- NOTE | 2017-06-28 16:37 | Internal Med Progress Note ---
Date of Encounter: 06/28/17 Time of Encounter: 16:35 - Assessment and plan (1) UTI (urinary tract infection) Current Visit: Yes Status: Acute Assessment and plan: Recurrent despite prior outpatient abx. Urine cx growing E. Coli Cont IV Cefipime for now repeat UA today Concerned for possible urinary retention will get U/S of Kidneys and bladder May need fdc prophylactic abx treatment too due to her recurrent UTI will talk to PCP in AM Qualifiers: Urinary tract infection type: acute cystitis Hematuria presence: without hematuria Qualified Code(s): N30.00 - Acute cystitis without hematuria (2) Chronic respiratory failure with hypoxia Current Visit: No Status: Chronic Assessment and plan: Stable not in exacerbation resumed all home regimen (3) Chronic venous stasis dermatitis of both lower extremities Current Visit: No Status: Chronic Assessment and plan: stable cont local care (4) Morbid obesity with BMI of 45.0-49.9, adult Current Visit: Yes Status: Chronic Assessment and plan: counseled to loose weight (5) Drug-seeking behavior Current Visit: No Status: Chronic Assessment and plan: Counseled about narcotic dependence (6) Type 2 diabetes mellitus Current Visit: Yes Status: Chronic Assessment and plan: Continue accuchecks and coverage. 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 mellitus complication status: with neurologic complications Diabetes mellitus complication detail: with polyneuropathy Diabetes mellitus emt intermediate insulin use: with fdc use Qualified Code(s): E11.42 - Type 2 diabetes mellitus with diabetic polyneuropathy; Z79.4 - emt intermediate (current) use of insulin; Z79.4 - halfway (current) use of insulin; Z79.4 - emt intermediate ( current) use of insulin; Z79.4 - halfway (current) use of insulin - Subjective Interval history: Ms. Lynch is a 61 year old female past medical history of arthritis congestive heart failure COPD with home O2 CAD with stent placement diabetes GERD hypertension hyperlipidemia thyroid disease TIA bipolar/anxiety admitted with recurrent UTI. Her symptoms little better today. Still has some left flank pain. Denied any CP / SOB.. Requesting for IV pain medication - Constitutional Vitals: Temp Pulse Resp BP Pulse Ox 98.5 F 76 16 118/69 92 06/28/17 14:52 06/28/17 14:52 06/28/17 14:52 06/28/17 14:52 06/28/17 14:52 General appearance: Present: A&O X 3, answers questions appropriately - Head Head exam: Present: atraumatic, normal inspection - Respiratory Respiratory exam: Present: decreased breath sounds. Absent: rales, respiratory distress, rhonchi, wheezes - Cardiovascular Cardiovascular exam: Present: RRR, +S1, +S2. Absent: systolic murmur - GI/Abdominal GI/Abdominal exam: Present: normal bowel sounds, soft. Absent: rebound, rigid, tenderness - Extremities Exam Extremities exam: Present: pedal edema (trace). Absent: calf tenderness, tenderness - Neurological Exam Neurological exam: Present: alert, oriented X3 Internal Medicine: Result - Labs CBC & Chem 7: 06/27/17 04:38 06/27/17 04:38 - ABG Interpretation ABG results: PT/INR, D-dimer PT 10.3 Seconds (9.4-12.1) 06/26/17 08:35 D-Dimer < 215 ng/mLFEU (0-500) 06/26/17 08:35 Consult Discharge Plan - Plan Referrals: Corey Waddell DO [Primary Care Provider] - 07/19/17 3:00 pm Garett Valdez [Partnered Physician] - 07/05/17 10:30 am
[2017-06-28] MEDS: *HR* Morphine 2 MG/ML SYRINGE IVP PRN (17:27)
[2017-06-28] MEDS: ARIPiprazole 10 MG TABLET PO SCH (21:34)
[2017-06-29 00:18] LABS: Bilirubin,Urine Negative (Negative); Blood,Urine Negative (Negative); Clarity,Urine Clear (Clear); Color,Urine Yellow (Yellow); Glucose,Urine (UA) 250 mg/dL (Normal); Ketones,Urine Negative (Negative); Leukocyte Esterase,Urine Small (Negative); Nitrite,Urine Negative (Negative); Protein,Urine Negative (Neg-Trace); Specific Gravity,Urine 1.016 (1.010-1.025); Urobilinogen,Urine Normal (Normal)
[2017-06-29 00:20] LABS: Bacteria,Urine None Seen per hpf (None-Few); Hyaline Casts,Urine None Seen per lpf (None-Few); RBC,Urine 0-3 per hpf (0-3); Squamous Epithelial Cell,Urine Many per lpf (None-Few); WBC,Urine 0-3 per hpf (0-3)
[2017-06-29] MEDS: *HR* Morphine 2 MG/ML SYRINGE IVP PRN (01:27)
[2017-06-29] MEDS: clonazePAM 1 MG TABLET PO PRN ×2 (01:27→09:12)
[2017-06-29] MEDS: *HR* Enoxaparin 40 MG/0.4 ML SYRINGE SQ SCH (05:51)
[2017-06-29 07:12] VITALS: BP 130/69
[2017-06-29] MEDS: Insulin LISPRO 300 UNITS/3 ML VIAL SQ SCH (08:31)
[2017-06-29] MEDS: Cefepime HCl 1,000 MG in Water for inj. (sterile) 10 ML IVP SCH (09:08)
[2017-06-29] MEDS: Insulin DETEMIR 100 UNIT/ML X5UNITS SQ SCH (09:11)
[2017-06-29] MEDS: tiZANidine 4 MG TABLET PO SCH (09:12)
[2017-06-29] MEDS: Cholecalciferol (D-3) 1,000 UNIT TABLET PO SCH (09:12)
[2017-06-29] MEDS: *HR* OxyCODONE/APAP 5/325 TABLET PO PRN (09:12)
[2017-06-29] MEDS: Isosorbide MONOnitrate (24 HR) 60 MG TAB.ER.24H PO SCH (09:12)
[2017-06-29] MEDS: Aspirin 81 MG TAB.CHEW PO SCH (09:12)
[2017-06-29] MEDS: Metoprolol XL (24 HR) Succ 50 MG TAB.ER.24H PO SCH (09:12)
[2017-06-29] MEDS: Gabapentin 400 MG CAPSULE PO SCH (09:12)
[2017-06-29] MEDS: Fenofibrate 54 MG TABLET PO SCH (09:13)
[2017-06-29] MEDS: Magnesium Oxide 400 MG TABLET PO SCH (09:13)
[2017-06-29] MEDS: Bumetanide 1 MG TABLET PO SCH (09:13)
[2017-06-29] MEDS: metOLazone 2.5 MG TABLET PO SCH (09:13)
[2017-06-29] MEDS: amLODIPine 5 MG TABLET PO SCH (09:13)
--- NOTE | 2017-06-29 11:48 | Discharge Summary ---
Date of Encounter: 06/29/17 Time of Encounter: 11:46 - Discharge Diagnosis (1) UTI (urinary tract infection) Priority: Primary Status: Acute Qualifiers: Urinary tract infection type: acute cystitis Hematuria presence: without hematuria Qualified Code(s): N30.00 - Acute cystitis without hematuria (2) Chronic respiratory failure with hypoxia Priority: Secondary Status: Chronic (3) Chronic venous stasis dermatitis of both lower extremities Priority: Secondary Status: Chronic (4) Morbid obesity with BMI of 45.0-49.9, adult Priority: Secondary Status: Chronic (5) Type 2 diabetes mellitus Priority: Secondary Status: Chronic 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 mellitus complication status: with neurologic complications Diabetes mellitus complication detail: with polyneuropathy Diabetes mellitus intermediate frame tender insulin use: with mcc use Qualified Code(s): E11.42 - Type 2 diabetes mellitus with diabetic polyneuropathy; Z79.4 - extermination inspector (current) use of insulin; Z79.4 - extermination inspector (current) use of insulin; Z79.4 - extermination inspector ( current) use of insulin; Z79.4 - nursing home (current) use of insulin - Discharge Medications Prescriptions: cephALEXin [Keflex] 500 mg PO TID #15 capsule Home Medications: Budesonide/Formoterol 160/4.5 [Symbicort] 2 puff IH BIDR 04/21/15 [History] Levothyroxine [Synthroid] 100 mcg PO QAM 04/21/15 [History] Tiotropium [Spiriva] 18 mcg IH QAM 04/21/15 [History] metFORMIN [Glucophage] 1,000 mg PO BID 04/21/15 [History] Atorvastatin Calcium [Lipitor] 40 mg PO DAILY 02/04/16 [History] Montelukast [Singulair] 10 mg PO HS 02/04/16 [History] Oxygen 2 l NS AD PRN 03/17/16 [History] Insulin Glargine [Lantus] 80 unit SQ QPM 03/25/16 [History] Insulin Glargine [Lantus] 90 unit SQ QAM 03/25/16 [History] Albuterol Sulfate [Albuterol Inhaler] 2 puff IH Q4HR PRN 05/01/16 [History] Citalopram Hydrobromide [Citalopram HBr] 40 mg PO DAILY 05/01/16 [History] Raloxifene [Evista] 60 mg PO DAILY 05/01/16 [History] Aripiprazole [Abilify] 10 mg PO HS tablet 05/03/16 [Rx] Fenofibrate Nanocrystallized [Tricor] 145 mg PO DAILY 06/15/16 [History] Clopidogrel [Plavix] 75 mg PO QAM tablet 06/18/16 [Rx] Aspirin 81 mg PO DAILY #60 tab.chew 12/06/16 [Rx] Mag Hydrox/Al Hydrox/Simeth [Maalox] 30 ml PO Q6H PRN 30 Days oral.susp [Rx] Cholecalciferol (D-3) [Vitamin D] 1,000 unit PO DAILY 04/27/17 [History] Metoclopramide [Reglan] 10 mg PO TID 04/27/17 [History] Metoprolol XL (24 HR) Succ [Toprol Xl] 50 mg PO DAILY 04/27/17 [History] Insulin LISPRO [Humalog Kwikpen U-100] 2 - 10 unit SQ TID PRN 05/09/17 [History] Tramadol HCl [Ultram] 50 mg PO TID PRN #10 05/12/17 [Rx] clonazePAM [Klonopin] 1 mg PO TID PRN 05/28/17 [History] Magnesium Oxide [Mag-Ox] 400 mg PO DAILY #0 tab 05/29/17 [Rx] Bumetanide 2 mg PO BID 06/11/17 [History] Buprenorphine [Butrans] 1 patch TD QWEEK 06/11/17 [History] Buspirone HCl [Buspar] 15 mg PO TID 06/11/17 [History] Gabapentin [Neurontin] 800 mg PO 5XD 06/11/17 [History] Omeprazole [PriLOSEC] 20 mg PO BIDAC 06/11/17 [History] Potassium Chloride 20 meq PO BID 06/11/17 [History] Tizanidine HCl [Zanaflex] 4 mg PO TID 06/11/17 [History] amLODIPine [Norvasc] 2.5 mg PO DAILY 06/11/17 [History] metOLazone [Zaroxolyn] 2.5 mg PO DAILY 06/11/17 [History] Isosorbide MONOnitrate (24 HR) [Imdur] 90 mg PO DAILY 06/26/17 [History] [place]-3 Fatty Acids/Fish Oil [Fish Oil 1,000 mg Softgel] 1 cap PO DAILY [History] Oxycodone HCl/Acetaminophen [Percocet 5-325 mg Tablet] 1 tab PO Q6H PRN [History] Nortriptyline [Pamelor] 25 mg PO HS 06/27/17 [History] cephALEXin [Keflex] 500 mg PO TID #15 capsule 06/29/17 [Rx] Allergies/Adverse Reactions: 3 Allergy/AdvReac Type Severity Reaction Status Date / Time No Known Allergies Allergy Verified 06/11/17 00:04 Procedures/tests Complete & Pending: Procedures Performed prior 72 hours Category Date Time Status US bladder/limited pelvis [US] Routine Exams 06/28/17 19:30 Draft Date of admission: 06/27/17 15:00 Primary care physician: Corey Waddell, - Patient Status Disposition: Home, Self-Care Condition: Good Overall status at discharge: patient is back to baseline - Discharge Instructions Instructions: Cephalexin (By mouth), Chronic Urinary Retention in Women (DC) Follow Up With: Corey Waddell DO [Primary Care Provider] - 07/19/17 3:00 pm Garett Valdez [Partnered Physician] - 07/05/17 10:30 am - Diet and Activity Activity: increase activity as tolerated Diet: low salt diet Hospital course: Ms. Lynch is a 61 year old female past medical history of arthritis congestive heart failure COPD with home O2 CAD with stent placement diabetes GERD hypertension hyperlipidemia thyroid disease TIA bipolar/anxiety admitted with recurrent UTI. Pt was started on empirical abx Cefepime. her symptoms started improving slolwy. I was concerned about urinary retention, so did a bladder scan which showed mild urinary retention. So counseled the pt to keep voiding every 2hrs. Her urine Cx growing ESBL negative E. Coli. So sent her home on PO Keflex. Talked to PCP to initiate on her intermediate frame tender prophylactic abx and out pt f /u with urology since she has this recurrent UTI - Time Spent with Patient Total time spent providing and/or coordinating discharge services: - Constitutional Vitals: Temp Pulse Resp BP Pulse Ox 97.4 F L 65 16 130/69 94 06/29/17 07:10 06/29/17 07:10 06/29/17 07:10 06/29/17 07:10 06/29/17 07:10 General appearance: Present: A&O X 3, answers questions appropriately - Head Head exam: Present: atraumatic, normal inspection - Neck Neck exam general surgery: Present: supple - Respiratory Respiratory exam: Present: decreased breath sounds. Absent: chest wall tenderness, rales, respiratory distress, rhonchi, wheezes - Cardiovascular Cardiovascular exam: Present: RRR, +S1, +S2. Absent: systolic murmur - GI/Abdominal GI/Abdominal exam: Present: distended, normal bowel sounds, soft. Absent: rebound, rigid, tenderness - Extremities Exam Extremities exam: Absent: calf tenderness, pedal edema, tenderness - Back Exam Back exam: Absent: CVA tenderness (L), CVA tenderness (R) - Neurological Exam Neurological exam: Present: alert, oriented X3
[2017-06-29] MEDS: Tiotropium 18 MCG inhalation IH SCH (12:05)
[2017-06-29] MEDS: Budesonide/Formoterol 160/4.5 MDI IH SCH (12:06)
--- NOTE | 2017-06-30 09:49 | Electrocardiograph Report ---
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
== END 2017-06-29 12:29 | disposition home or self-care (01) | DRG 690 ==
LOC: EMEROO 08:03 → 3BNU 08:03 → SUATTDRO 10:17 → 3BNU 10:30
PROVIDERS: ADMIT Internal Medicine; ATTEND Family Medicine

== ENCOUNTER 2017-07-08 17:02 | Observation (INO) ==
[2017-07-08] MEDS ORDERED: Nitroglycerin 0.4 MG TAB.SUBL SL PRN (17:06)
--- NOTE | 2017-07-08 17:12 | Emergency Department Note ---
Disposition Clinical Impression: Hypokalemia Headache Qualifiers: Headache type: unspecified Headache chronicity pattern: acute headache Intractability: not intractable Qualified Code(s): R51 - Headache CVA (cerebral vascular accident) Qualifiers: CVA mechanism: unspecified Qualified Code(s): I63.9 - Cerebral infarction, unspecified Chest pain Qualifiers: Chest pain type: unspecified Qualified Code(s): R07.9 - Chest pain, unspecified UTI (urinary tract infection) Qualifiers: Qualified Code(s): N39.0 - Disposition: Admitted As Inpatient Condition: Good Time of Disposition: 19:44 Headache HPI - General Chief Complaint: ED Headache Stated Complaint: headache Time Seen by Provider: 07/08/17 17:04 Source: patient, EMS Mode of arrival: EMS Limitations: no limitations Nursing Notes Reviewed: Yes Vital Signs Reviewed: Yes - History of Present Illness HPI Narrative: 61-year-old female with history of ND, CVA, arrives [facility] emergency department with complaint of headache, left upper extremity weakness and left lower extremity weakness and numbness. The patient is also complaining of retrosternal chest pain. Her symptoms she awoke with it roughly 5 AM. She called EMS because she became very scared. The patient states this feels like previous ND in the past. She is also concerned that she is having a stroke. She denies any other complaints at this time. Vital signs demonstrate no tachycardia or hypotension. She denies any abdominal pain, nausea, vomiting , diarrhea, neck rigidity, or any other complaints at this time. Stroke alert was not activated as patient's symptoms started at roughly 5 AM which was 12 hours prior to arrival. Pt Subjective Complaint: headache Onset (ago): hour(s) (12) Onset description: awoke with symptoms Location: global Pain Severity: moderate Pain Scale: 5 Quality: aching, similar to previous headaches Improves with: nothing Worsens with: none Context: occurred at rest Associated symptoms: Reports: chest pain, numbness, weakness Treatments prior to arrival: none - Related Data Home Medications Medication Instructions Recorded Confirmed Budesonide/Formoterol 160/4.5 2 puff IH BIDR 04/21/15 07/08/17 [Symbicort] Levothyroxine [Synthroid] 100 mcg PO QAM 04/21/15 07/08/17 Tiotropium [Spiriva] 18 mcg IH QAM 04/21/15 07/08/17 metFORMIN [Glucophage] 1,000 mg PO BID 04/21/15 07/08/17 Atorvastatin Calcium [Lipitor] 40 mg PO DAILY 02/04/16 07/08/17 Montelukast [Singulair] 10 mg PO HS 02/04/16 07/08/17 Oxygen 2 l NS AD PRN 03/17/16 07/08/17 Insulin Glargine [Lantus] 80 unit SQ QPM 03/25/16 07/08/17 Insulin Glargine [Lantus] 90 unit SQ QAM 03/25/16 07/08/17 Albuterol Sulfate [Albuterol 2 puff IH Q4HR PRN 05/01/16 07/08/17 Inhaler] Citalopram Hydrobromide 40 mg PO DAILY 05/01/16 07/08/17 [Citalopram HBr] Raloxifene [Evista] 60 mg PO DAILY 05/01/16 07/08/17 Fenofibrate Nanocrystallized 145 mg PO DAILY 06/15/16 07/08/17 [Tricor] Cholecalciferol (D-3) [Vitamin D] 1,000 unit PO DAILY 04/27/17 07/08/17 Metoclopramide [Reglan] 10 mg PO TID 04/27/17 07/08/17 Metoprolol XL (24 HR) Succ [Toprol 50 mg PO DAILY 04/27/17 07/08/17 Xl] Insulin LISPRO [Humalog Kwikpen 2 - 10 unit SQ TID PRN 05/09/17 07/08/17 U-100] clonazePAM [Klonopin] 1 mg PO TID PRN 05/28/17 07/08/17 Bumetanide 2 mg PO BID 06/11/17 07/08/17 Buspirone HCl [Buspar] 15 mg PO TID 06/11/17 07/08/17 Gabapentin [Neurontin] 800 mg PO 5XD 06/11/17 07/08/17 Omeprazole [PriLOSEC] 20 mg PO BIDAC 06/11/17 07/08/17 Potassium Chloride 20 meq PO BID 06/11/17 07/08/17 Tizanidine HCl [Zanaflex] 4 mg PO TID 06/11/17 07/08/17 amLODIPine [Norvasc] 2.5 mg PO DAILY 06/11/17 07/08/17 metOLazone [Zaroxolyn] 2.5 mg PO DAILY 06/11/17 07/08/17 Isosorbide MONOnitrate (24 HR) 90 mg PO DAILY 06/26/17 07/08/17 [Imdur] [place]-3 Fatty Acids/Fish Oil [Fish 1 cap PO DAILY 06/26/17 07/08/17 Oil 1,000 mg Softgel] Oxycodone HCl/Acetaminophen 1 tab PO Q6H PRN 06/26/17 07/08/17 [Percocet 5-325 mg Tablet] Nortriptyline [Pamelor] 25 mg PO HS 06/27/17 07/08/17 Previous Rx's Medication Instructions Recorded Aripiprazole [Abilify] 10 mg PO HS tablet 05/03/16 Clopidogrel [Plavix] 75 mg PO QAM tablet 06/18/16 Aspirin 81 mg PO DAILY #60 tab.chew 12/06/16 Mag Hydrox/Al Hydrox/Simeth 30 ml PO Q6H PRN 30 Days oral.susp 03/26/17 [Maalox] Tramadol HCl [Ultram] 50 mg PO TID PRN #10 05/12/17 Magnesium Oxide [Mag-Ox] 400 mg PO DAILY #0 tab 05/29/17 DiphenhydraMINE [Benadryl] 25 mg PO ONCE PRN capsule 07/11/17 Doxycycline 100 mg PO BID #20 capsule 07/11/17 Phenazopyridine [Pyridium] 100 mg PO TID PRN #6 tablet 07/11/17 levoFLOXacin [Levaquin] 500 mg PO DAILY #20 tablet 07/11/17 Allergies Allergy/AdvReac Type Severity Reaction Status Date / Time No Known Allergies Allergy Verified 06/11/17 00:04 All systems ED: reviewed and negative except as stated. Constitutional: Reports: weakness. Denies: fever, chills Eyes: Denies: eye pain ENT ED: Denies: congestion Cardiovascular: Reports: chest pain. Denies: palpitations, dyspnea on exertion , edema Respiratory: Denies: cough, dyspnea, wheezes Gastrointestinal: Denies: abdominal pain, nausea, vomiting Genitourinary: Denies: urgency, dysuria, frequency Musculoskeletal: Denies: back pain, neck pain, arthralgia, myalgia Neurological: Reports: headache, weakness, numbness. 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 - Social History Smoking Status: Former smoker Alcohol use: Reports: none Drug use: Reports: none Physical Exam - General Limitations: no limitations General appearance: alert, in no apparent distress - Head Head exam: atraumatic, normocephalic, normal inspection - Eye Eye exam: Present: normal appearance - ENT ENT exam: normal exam, normal oropharynx, mucous membranes moist - Neck Neck exam: Present: normal inspection, full ROM, trachea midline - Chest Chest inspection: Present: normal inspection, symmetric chest wall rise - Respiratory Respiratory exam: Present: normal lung sounds bilaterally - Cardiovascular Cardiovascular exam: Present: regular rate, normal rhythm, normal heart sounds - Abdominal Exam Abdominal exam: Present: soft, Non-Tender. Absent: tenderness, distention, guarding, rebound, rigidity - Extremities Exam Extremities exam: Present: normal inspection, full ROM. Absent: tenderness, pedal edema - Neurological Exam Neurological exam: Present: alert, oriented X3, CN II-XII intact - Expanded Neurological Exam Patient oriented to: Present: person, place, time Speech: Present: fluid speech Cranial nerves: EOM function (II, III, IV, ): Normal, facial sensation (V): Normal, facial palsy (VII): Normal Cerebellar function: finger to nose: Normal Motor strength - LUE: 4/5 Motor strength - RUE: 5/5 Motor strength - LLE: 4/5 Motor strength - RLE: 5/5 Sensory exam upper extremity: light touch: Normal Sensory exam lower extremity: light touch: Abnormal Left Coma Scale Eye Opening: Spontaneous Coma Scale Motor Response: Obeys Commands Coma Scale Verbal Response: Oriented Coma Scale Total: 15 Course Vital Signs Temperature 97 F L 07/08/17 17:03 Pulse Rate 73 07/08/17 17:03 Respiratory Rate 18 07/08/17 17:03 Blood Pressure 118/75 07/08/17 17:03 O2 Sat by Pulse Oximetry 94 07/08/17 17:03 Temperature 98.1 F 07/11/17 11:31 Pulse Rate 81 07/11/17 11:31 Respiratory Rate 17 07/11/17 11:31 Blood Pressure 147/93 07/11/17 12:42 O2 Sat by Pulse Oximetry 92 07/11/17 11:31 Oxygen Delivery Oxygen Delivery Nasal Cannula Headache - MDM Narrative Medical decision making narrative: Patient's workup here in the emergency department demonstrates no acute process with the exception of the patient likely had a TIA versus CVA. Has been less than 24 hours so we are unsure at this time. The patient's symptoms have begun to resolve slightly. She does have some residual symptoms from her GABE. The patient's chest pain has resolved at this time but she says she hurts all over. The patient's troponin is negative and CT of the patient's had Imitrex no acute process. We will admit the patient to the hospitalist at this time. Alert was not activated as the patient awoke with symptoms at 5 AM which was roughly 12 hours prior to arrival to the emergency department. On evaluation the patient also has what appears to be a urinary tract infection, and she has a leukocytosis probably associated with this. We began the patient on IV Rocephin. The patient was accepted by Dr. michel. - Medical Records Medical records reviewed: Yes I reviewed the patient's medical records. - Lab Data Lab results reviewed: Yes I reviewed the patient's lab results. Result diagrams: 07/11/17 05:12 07/11/17 05:12 Lab Results 07/08/17 07/08/17 07/08/17 Range/Units 18:06 18:06 18:06 WBC 12.9 H (4.3-11.1) K/mcL RBC 4.41 (3.82-4.97) M/mcL Hgb 11.3 L (11.5-15.4) g/dL Hct 36.6 (35.3-44.9) % MCV 83.0 (83.0-100.0) fL MCH 25.6 L (28.0-33.3) pg MCHC 30.9 L (31.6-35.5) g/dL RDW 16.4 H (11.5-14.5) % Plt Count 251 (140-400) K/mcL MPV 11.2 (9.4-12.4) fL Immature Gran % 1.2 (0-4) % Seg Neutrophils % 63.5 % Lymphocytes % 28.2 % Monocytes % 4.9 % Eosinophils % 1.5 % Basophils % 0.7 % Neutrophils # 8.2 (1.6-8.9) K/mcL Lymphocytes # 3.6 (0.6-4.6) K/mcL Monocytes # 0.6 (0.0-1.3) K/mcL Eosinophils # 0.2 (0.0-0.6) K/mcL Basophils # 0.1 (0.0-0.2) K/mcL Nucleated RBCs/100 WBC 0.2 H (0) /100 WBC Sodium 138 (136-145) mEq/L Potassium 3.1 L (3.5-4.5) mEq/L Chloride 95 L (98-109) mEq/L Carbon Dioxide 34 H (19-29) mEq/L BUN 28 H (7-20) mg/dL Creatinine 0.87 (0.57-1.11) mg/dL Est GFR ( Amer) > 60 (> 60) Est GFR (Non-Af Amer) > 60 (> 60) BUN/Creatinine Ratio 32 H (6-26) Glucose 70 (70-99) mg/dL Calculated Osmolality 290 (280-300) Calcium 9.0 (8.6-10.8) mg/dL Troponin I 0.01 (0-0.03) ng/mL Urine Color (Yellow) Urine Clarity (Clear) Urine pH (5.0-8.0) pH Units Ur Specific [place] (1.010-1.025) Urine Protein (Neg-Trace) mg/dL Urine Glucose (UA) (Normal) mg/dL Urine Ketones (Negative) mg/dL Urine Blood (Negative) Urine Nitrite (Negative) Urine Bilirubin (Negative) Urine Urobilinogen (Normal) mg/dL Ur Leukocyte Esterase (Negative) Urine Microscopic RBC (0-3) per hpf Urine Microscopic WBC (0-3) per hpf Ur Squamous Epith Cells (None-Few) per lpf Urine Bacteria (None-Few) per hpf Hyaline Casts (None-Few) per lpf Ur Culture Indicated? (NO) 07/08/17 Range/Units 18:30 WBC (4.3-11.1) K/mcL RBC (3.82-4.97) M/mcL Hgb (11.5-15.4) g/dL Hct (35.3-44.9) % MCV (83.0-100.0) fL MCH (28.0-33.3) pg MCHC (31.6-35.5) g/dL RDW (11.5-14.5) % Plt Count (140-400) K/mcL MPV (9.4-12.4) fL Immature Gran % (0-4) % Seg Neutrophils % % Lymphocytes % % Monocytes % % Eosinophils % % Basophils % % Neutrophils # (1.6-8.9) K/mcL Lymphocytes # (0.6-4.6) K/mcL Monocytes # (0.0-1.3) K/mcL Eosinophils # (0.0-0.6) K/mcL Basophils # (0.0-0.2) K/mcL Nucleated RBCs/100 WBC (0) /100 WBC Sodium (136-145) mEq/L Potassium (3.5-4.5) mEq/L Chloride (98-109) mEq/L Carbon Dioxide (19-29) mEq/L BUN (7-20) mg/dL Creatinine (0.57-1.11) mg/dL Est GFR ( Amer) (> 60) Est GFR (Non-Af Amer) (> 60) BUN/Creatinine Ratio (6-26) Glucose (70-99) mg/dL Calculated Osmolality (280-300) Calcium (8.6-10.8) mg/dL Troponin I (0-0.03) ng/mL Urine Color Yellow (Yellow) Urine Clarity Clear (Clear) Urine pH 6.5 (5.0-8.0) pH Units Ur Specific [place] 1.013 (1.010-1.025) Urine Protein Negative (Neg-Trace) mg/dL Urine Glucose (UA) Normal (Normal) mg/dL Urine Ketones Negative (Negative) mg/dL Urine Blood Negative (Negative) Urine Nitrite Negative (Negative) Urine Bilirubin Negative (Negative) Urine Urobilinogen Normal (Normal) mg/dL Ur Leukocyte Esterase Moderate H (Negative) Urine Microscopic RBC 0-3 (0-3) per hpf Urine Microscopic WBC 30-50 H (0-3) per hpf Ur Squamous Epith Cells Moderate H (None-Few) per lpf Urine Bacteria Few (None-Few) per hpf Hyaline Casts None Seen (None-Few) per lpf Ur Culture Indicated? YES A (NO) - Radiology Data Radiology results reviewed: Yes I reviewed the patient's radiology results. - EKG Data EKG attestation: Yes I reviewed and interpreted this EKG. EKG results narrative: Heart rate 77 bpm. ID interval 150 ms. QTc 445 ms. Normal axis. Normal sinus rhythm. No ST elevation or ST depression noted. No acute changes noted. EKG similar in appearance to EKG from 06/26/2017. Attestation Statement - Attestation Attestation: I examined this patient and my medical decision-making was reviewed with the Resident Physician. I agree with the documented findings, disposition and treatment plan as described except to the extent set forth below. Patient presents to the emergency department with a chief complaint of being of headache. Patient describes sharp pain she from her head to her right arm and leg. She is also describing some chest pain. States her arm and leg feel week. Onset over 12 hours ago. On neurologic evaluation she complains of decreased sensation in the left arm and leg. See Dr Jay's full NIH scale. Plan. Cardiac workup. Stroke workup. Likely admission secondary to her risk factors. Not a TPA candidate secondary to onset over 12 hours ago. NIH Stroke Scale - Level of Consciousness LOC: Alert - LOC Questions LOC Questions: Answers both correctly - LOC Commands LOC Commands: Performs both correctly - Best Gaze Best Gaze: Normal - Visual Visual: No visual loss - Facial Palsy Facial Palsy: Normal - Motor Arms Motor Arm-Left: No drift for 10 seconds Motor Arm-Right: No drift for 10 seconds - Motor Legs Motor Leg-Left: No drift for 5 seconds Motor Leg-Right: No drift for 5 seconds - Limb Ataxia Limb Ataxia: Normal, No Ataxia - Sensory Sensory: Mild to moderate loss, "not as sharp" - Best Language Best Language: No aphasia - Dysarthria Dysarthria: Normal - Extinction and Inattention Extinction and Inattention: Normal - NIHSS Total Score NIHSS Total Score: 1
[2017-07-08] MEDS ORDERED: Aspirin 325 MG TABLET PO ONE (18:06)
[2017-07-08 18:17] LABS: Basophils # 0.1 K/mcL (0.0-0.2); Basophils % 0.7 %; Eosinophils # 0.2 K/mcL (0.0-0.6); Eosinophils % 1.5 %; Hematocrit 36.6 % (35.3-44.9); Hemoglobin 11.3 g/dL (11.5-15.4); Immature Granulocytes % 1.2 % (0-4); Lymphocytes # 3.6 K/mcL (0.6-4.6); Lymphocytes % 28.2 %; Mean Corpuscular HGB Conc 30.9 g/dL (31.6-35.5); Mean Corpuscular Hemoglobin 25.6 pg (28.0-33.3); Mean Platelet Volume 11.2 fL (9.4-12.4); Monocytes # 0.6 K/mcL (0.0-1.3); Monocytes % 4.9 %; Neutrophils # 8.2 K/mcL (1.6-8.9); Nucleated Red Blood Cells 0.2 /100 WBC (0); Platelet Count 251 K/mcL (140-400); Red Blood Count 4.41 M/mcL (3.82-4.97); Red Cell Distribution Width 16.4 % (11.5-14.5); Segmented Neutrophils % 63.5 %
[2017-07-08 18:35] LABS: BUN/Creatinine Ratio 32 (6-26); Blood Urea Nitrogen 28 mg/dL (7-20); Carbon Dioxide 34 mEq/L (19-29); Chloride 95 mEq/L (98-109); Glucose 70 mg/dL (70-99); Osmolality,Calculated 290 (280-300); Potassium 3.1 mEq/L (3.5-4.5); Sodium 138 mEq/L (136-145); eGFR For African Americans > 60 (> 60); eGFR For Non-African Americans > 60 (> 60)
[2017-07-08 18:41] LABS: Bilirubin,Urine Negative (Negative); Blood,Urine Negative (Negative); Clarity,Urine Clear (Clear); Color,Urine Yellow (Yellow); Glucose,Urine (UA) Normal (Normal); Ketones,Urine Negative (Negative); Leukocyte Esterase,Urine Moderate (Negative); Nitrite,Urine Negative (Negative); PH,Urine 6.5 pH Units (5.0-8.0); Protein,Urine Negative (Neg-Trace); Specific Gravity,Urine 1.013 (1.010-1.025); Urobilinogen,Urine Normal (Normal)
[2017-07-08 18:44] LABS: Bacteria,Urine Few per hpf (None-Few); Hyaline Casts,Urine None Seen per lpf (None-Few); RBC,Urine 0-3 per hpf (0-3); Squamous Epithelial Cell,Urine Moderate per lpf (None-Few); WBC,Urine 30-50 per hpf (0-3)
[2017-07-08] MEDS ORDERED: cefTRIAXone 1,000 MG in Water for inj. (sterile) 10 ML IVP ONE (19:00)
[2017-07-09] MEDS ORDERED: NON-FORMULARY MEDICATION 1 EACH EACH (Oxygen [Oxygen] 2 L) NS PRN (00:15)
[2017-07-09] MEDS ORDERED: 0.9 % Sodium Chloride 1,000 ML IVC SCH (00:15)
[2017-07-09] MEDS: *HR* OxyCODONE/APAP 5/325 TABLET PO PRN ×4 (01:10→22:28)
[2017-07-09] MEDS: clonazePAM 1 MG TABLET PO PRN ×3 (01:11→22:29)
[2017-07-09] MEDS: 0.9 % Sodium Chloride 1,000 ML IVC SCH (01:11)
--- NOTE | 2017-07-09 03:16 | Internal Med History&Physical ---
Date of Encounter: 07/11/17 Time of Encounter: 03:11 Assessment and Plan (1) TIA (transient ischemic attack) Current visit: Yes Status: Acute Symptoms resolved during my interview. Patient is an aspirin and statin. hold blood pressure medications Qualifiers: Transient cerebral ischemia type: unspecified Qualified Code(s): G45.9 - Transient cerebral ischemic attack, unspecified (2) UTI (urinary tract infection) Current visit: Yes Status: Acute Ceftriaxone. Check urine culture. gentle hydration. 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 Lynch is a 61 year old female presents to the emergency room today with the main complaining of left-sided numbness. Approximately 5 AM patient started experiencing numbness on the left side of the body as well as weakness. Symptoms of improved throughout the day. I have not appreciated any focal weakness during my interview. Patient also complained of right sided abdominal pain. Work up in the emergency room showed evidence of urinary tract infection. Patient denies any fevers chills. She has history of recurrent urinary tract infections. Past Med Surg Social Fam HX - Past Medical History Medical history: arthritis, CHF, COPD, coronary artery disease, diabetes, GERD, hyperlipidemia, hypertension, osteoporosis, renal disease, thyroid disease, TIA , venous stasis, other Psychiatric history: anxiety, bipolar, depression, panic disorder - Past Surgical History Surgical History: angioplasty/stent, , cholecystectomy, hysterectomy - Social History Smoking Status: Former smoker Smokeless Tobacco Status: No Alcohol use: none Drug use: none - Family History Brother Adopted: No Family Member Ethnicity: Non- Living Status: Hx Family Cardiac Disorders: Yes Father Adopted: No Family Member Ethnicity: Non- Living Status: Hx Family Cardiac Disorders: Yes (HD, HLD, HTN, UT, Triple Bypass) Hx Family Neurologic Disorders: Yes (Dementia) Mother Adopted: No Family Member Ethnicity: Non- Living Status: Hx Family Cardiac Disorders: Yes (UT, HTN, HLD, Strokes x5) Hx Family Respiratory Disorders: No Hx Family Cancer: No Hx Family GI Disorders: No Hx Family Endocrine Disorder: Yes (DM) Hx Family Neuromuscular Disorders: No Hx Family Neurologic Disorders: Yes (Strokes) Hx Family HEENT Disorders: No Hx Family Autoimmune Disorders: No Internal Medicine - H&P: Meds Budesonide/Formoterol 160/4.5 [Symbicort] 2 puff IH BIDR 04/21/15 [History] Levothyroxine [Synthroid] 100 mcg PO QAM 04/21/15 [History] Tiotropium [Spiriva] 18 mcg IH QAM 04/21/15 [History] metFORMIN [Glucophage] 1,000 mg PO BID 04/21/15 [History] Atorvastatin Calcium [Lipitor] 40 mg PO DAILY 02/04/16 [History] Montelukast [Singulair] 10 mg PO HS 02/04/16 [History] Oxygen 2 l NS AD PRN 03/17/16 [History] Insulin Glargine [Lantus] 80 unit SQ QPM 03/25/16 [History] Insulin Glargine [Lantus] 90 unit SQ QAM 03/25/16 [History] Albuterol Sulfate [Albuterol Inhaler] 2 puff IH Q4HR PRN 05/01/16 [History] Citalopram Hydrobromide [Citalopram HBr] 40 mg PO DAILY 05/01/16 [History] Raloxifene [Evista] 60 mg PO DAILY 05/01/16 [History] Aripiprazole [Abilify] 10 mg PO HS tablet 05/03/16 [Rx] Fenofibrate Nanocrystallized [Tricor] 145 mg PO DAILY 06/15/16 [History] Clopidogrel [Plavix] 75 mg PO QAM tablet 06/18/16 [Rx] Aspirin 81 mg PO DAILY #60 tab.chew 12/06/16 [Rx] Mag Hydrox/Al Hydrox/Simeth [Maalox] 30 ml PO Q6H PRN 30 Days oral.susp [Rx] Cholecalciferol (D-3) [Vitamin D] 1,000 unit PO DAILY 04/27/17 [History] Metoclopramide [Reglan] 10 mg PO TID 04/27/17 [History] Metoprolol XL (24 HR) Succ [Toprol Xl] 50 mg PO DAILY 04/27/17 [History] Insulin LISPRO [Humalog Kwikpen U-100] 2 - 10 unit SQ TID PRN 05/09/17 [History] Tramadol HCl [Ultram] 50 mg PO TID PRN #10 05/12/17 [Rx] clonazePAM [Klonopin] 1 mg PO TID PRN 05/28/17 [History] Magnesium Oxide [Mag-Ox] 400 mg PO DAILY #0 tab 05/29/17 [Rx] Bumetanide 2 mg PO BID 06/11/17 [History] Buspirone HCl [Buspar] 15 mg PO TID 06/11/17 [History] Gabapentin [Neurontin] 800 mg PO 5XD 06/11/17 [History] Omeprazole [PriLOSEC] 20 mg PO BIDAC 06/11/17 [History] Potassium Chloride 20 meq PO BID 06/11/17 [History] Tizanidine HCl [Zanaflex] 4 mg PO TID 06/11/17 [History] amLODIPine [Norvasc] 2.5 mg PO DAILY 06/11/17 [History] metOLazone [Zaroxolyn] 2.5 mg PO DAILY 06/11/17 [History] Isosorbide MONOnitrate (24 HR) [Imdur] 90 mg PO DAILY 06/26/17 [History] [place]-3 Fatty Acids/Fish Oil [Fish Oil 1,000 mg Softgel] 1 cap PO DAILY [History] Oxycodone HCl/Acetaminophen [Percocet 5-325 mg Tablet] 1 tab PO Q6H PRN [History] Nortriptyline [Pamelor] 25 mg PO HS 06/27/17 [History] 3 Allergy/AdvReac Type Severity Reaction Status Date / Time No Known Allergies Allergy Verified 06/11/17 00:04 All Systems PM: A 10-system review of systems was performed and is negative for pertinent findings except as documented above in the HPI. Review of systems: 10 point review of systems is negative except for HPI - Constitutional Vitals: Temp Pulse Resp BP Pulse Ox 98.0 F 76 18 147/75 96 07/08/17 23:43 07/08/17 23:43 07/08/17 23:43 07/08/17 23:43 07/08/17 23:43 Exam: General: Patient is A&O X3 Cardiac: normal S1, S2, no additional sounds or murmurs Chest: Clear to auscultation bilaterally Abdomen: soft, nontender, non distended, normal BS. Neuro: No focal deficits LE: no swelling Internal Med - H&P Results - Labs CBC & Chem 7: 07/09/17 03:10 07/09/17 03:10
[2017-07-09 04:35] LABS: BUN/Creatinine Ratio 28 (6-26); Blood Urea Nitrogen 26 mg/dL (7-20); Calcium 8.8 mg/dL (8.6-10.8); Carbon Dioxide 34 mEq/L (19-29); Chloride 95 mEq/L (98-109); Creatine Kinase 71 Units/L (29-168); Glucose 228 mg/dL (70-99); Magnesium 1.8 mg/dL (1.6-2.6); Osmolality,Calculated 302 (280-300); Potassium 3.2 mEq/L (3.5-4.5); Sodium 140 mEq/L (136-145); eGFR For African Americans > 60 (> 60); eGFR For Non-African Americans > 60 (> 60)
[2017-07-09 04:53] LABS: Basophils # 0.1 K/mcL (0.0-0.2); Basophils % 0.6 %; Eosinophils # 0.1 K/mcL (0.0-0.6); Hematocrit 35.5 % (35.3-44.9); Hemoglobin 10.7 g/dL (11.5-15.4); Immature Granulocytes % 0.9 % (0-4); Lymphocytes # 2.7 K/mcL (0.6-4.6); Lymphocytes % 23.3 %; Mean Corpuscular HGB Conc 30.1 g/dL (31.6-35.5); Mean Corpuscular Hemoglobin 25.5 pg (28.0-33.3); Mean Corpuscular Volume 84.5 fL (83.0-100.0); Mean Platelet Volume 11.8 fL (9.4-12.4); Monocytes # 0.6 K/mcL (0.0-1.3); Monocytes % 4.9 %; Neutrophils # 8.1 K/mcL (1.6-8.9); Platelet Count 246 K/mcL (140-400); Red Cell Distribution Width 16.6 % (11.5-14.5); Segmented Neutrophils % 69.3 %
[2017-07-09] MEDS: *HR* Heparin 5,000 UNIT/ML VIAL SQ SCH ×2 (06:38→18:37)
[2017-07-09] MEDS: Tiotropium 18 MCG inhalation IH SCH (08:10)
[2017-07-09] MEDS: Budesonide/Formoterol 160/4.5 MDI IH SCH ×2 (08:11→20:08)
[2017-07-09] MEDS: cefTRIAXone 1,000 MG in Water for inj. (sterile) 10 ML IVP SCH (08:49)
[2017-07-09] MEDS: Insulin LISPRO 300 UNITS/3 ML VIAL SQ SCH ×4 (08:50→20:45)
[2017-07-09] MEDS: Aspirin 81 MG TAB.CHEW PO SCH (08:50)
[2017-07-09] MEDS: FISH OIL 1000 MG PO SCH (08:51)
[2017-07-09] MEDS: Gabapentin 400 MG CAPSULE PO SCH ×4 (08:53→22:29)
--- NOTE | 2017-07-09 13:12 | Internal Med Progress Note ---
Date of Encounter: 07/09/17 Time of Encounter: 11:15 - Assessment and plan (1) TIA (transient ischemic attack) Current Visit: Yes Status: Acute Assessment and plan: Patient presented to the emergency department with main complaint of left-sided numbness. Onset approximately 5 AM on the day of admission she began experiencing numbness on the left side of her body, as well as weakness. Symptoms continued to improve throughout the day and by the time she was assessed by the admit her, symptoms had resolved. Patient has no focal neurological deficits, extremities are strong and equal bilaterally in upper and lower extremities. Her face is symmetrical, her gait, although slow, steady. Patient does have a urinary tract infection and is being treated with antibiotics. There does not appear to be a substantial electrolyte abnormality and her blood pressure has been well controlled. Abnormal result on brain MRI with low signal in the clivis, which is nonspecific and will require outpatient follow-up. Chest X-Ray 07/08/17 17:05 IMPRESSION: No acute cardiopulmonary process. D/ / Rachel Cardona MD / Rachel Cardona MD Interpreting Provider: Rachel Cardona MD Head CT 07/08/17 17:05 IMPRESSION: Stable negative CT brain with no acute intracranial abnormality. D/ / Sangeetha Alexandra MD / Sangeetha Alexandra MD Interpreting Provider: Sangeetha Alexandra MD Brain MRI 07/09/17 09:17 IMPRESSION: Cerebral atrophy. Mild chronic small vessel ischemic changes. There are no areas of restricted diffusion to suggest an acute ischemic event. Low signal in the clivus which is a nonspecific finding. Metastatic disease to the clivus cannot be entirely excluded. Follow up to resolution is suggested. D/ / 07/09/2017 11:49:22 Naheed Fountain MD / josh Interpreting Provider: Naheed Fountain MD Qualifiers: Transient cerebral ischemia type: unspecified Qualified Code(s): G45.9 - Transient cerebral ischemic attack, unspecified (2) UTI (urinary tract infection) Current Visit: Yes Status: Acute Assessment and plan: Patient treated for UTI. Patient had moderate amount leukocyte esterase, 30-50 white cells microscopic, few bacteria. Culture is indicated and pending. She has been treated with Rocephin 1 g IV daily. Patient reports multiple urinary tract infections dating clear back to October of this year. She has had urine cultures that are positive for Escherichia coli 4 times, and in April, 1 urine culture positive for Enterobacte cloacae complex. I discussed proper hygiene with patient, she states that she follow all the steps necessary. Patient does not have right or left CVA tenderness. She is afebrile and no tachycardia. She has mild leukocytosis of 11.7 which is declining from admission 12.9. Patient could potentially benefit from a consult to urology on discharge. Continue Pyridium Continue IV antibiotics Urine culture pending. Qualifiers: Urinary tract infection type: acute cystitis Hematuria presence: with hematuria Qualified Code(s): N30.01 - Acute cystitis with hematuria (3) Morbid obesity with BMI of 45.0-49.9, adult Current Visit: Yes Status: Chronic Assessment and plan: Chronic. Lifestyle changes. BMI 47.4. (4) Type 2 diabetes mellitus Current Visit: Yes Status: Chronic Assessment and plan: A1c is 8.7 in April. Not well controlled diabetes. Continue sliding scale insulin, Accu-Cheks before meals at bedtime, diabetic diet. 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 Encourage ambulation. - Time Spent With Patient less than 15 minutes - Subjective Interval history: Pt was seen and assessed at 1115 a.m. Pt reports right flank and rlq pain for 2- 3 days. She requested morphine and I told her that I would not be giving narcotics for UTI pain, she seemed agreeable. Pt denies n/v/d, headache, blurred vision, or dizziness. Pt is sitting up in bed eating Núñez's breakfast. Pt was agreeable to staying overnight for IV antibiotic treatment, pain control, questions answered. - Constitutional Vitals: Temp Pulse Resp BP Pulse Ox 98.0 F 88 20 161/94 94 07/09/17 11:05 07/09/17 11:05 07/09/17 11:05 07/09/17 11:05 07/09/17 11:05 General appearance: Present: cooperative, A&O X 3, morbidly obese, no acute distress, answers questions appropriately - Head Head exam: Present: atraumatic, normal inspection, normocephalic - Eye Eye exam: Present: normal appearance, conjuntiva pink, sclera anicteric - Neck Neck exam general surgery: Present: supple, trachea midline. Absent: lymphadenopathy - Respiratory Respiratory exam: Present: CTAB. Absent: accessory muscle use, chest wall tenderness, decreased breath sounds, rales, rhonchi, wheezes - Cardiovascular Cardiovascular exam: Present: RRR, +S1, +S2. Absent: diastolic murmur, gallop, rubs, systolic murmur - GI/Abdominal GI/Abdominal exam: Present: distended, normal bowel sounds, soft, no peritoneal signs. Absent: tenderness - Extremities Exam Extremities exam: Present: warm, radial pulses palpable and symmetrical. Absent : calf tenderness, cyanotic, tenderness - Neurological Exam Neurological exam: Present: CN II-XII intact, oriented X3, strengths equal and symetr throughout. Absent: facial droop, speech deficit - Skin Skin exam: Present: dry, intact, normal color, warm. Absent: rash Internal Medicine: Result - Labs CBC & Chem 7: 07/09/17 03:10 07/09/17 03:10 Labs: Short CBC 07/09/17 Range/Units 03:10 WBC 11.7 H (4.3-11.1) K/mcL Hgb 10.7 L (11.5-15.4) g/dL Hct 35.5 (35.3-44.9) % Plt Count 246 (140-400) K/mcL Neutrophils # 8.1 (1.6-8.9) K/mcL BMP 07/09/17 03:10 Sodium 140 Potassium 3.2 L Chloride 95 L Carbon Dioxide 34 H BUN 26 H Creatinine 0.92 Glucose 228 H Calcium 8.8 Cardiac Enzymes 07/09/17 07/09/17 Range/Units 03:10 12:15 Troponin I 0.01 0.00 (0-0.03) ng/mL - Impressions Impressions Brain MRI 07/09/17 09:17 IMPRESSION: Cerebral atrophy. Mild chronic small vessel ischemic changes. There are no areas of restricted diffusion to suggest an acute ischemic event. Low signal in the clivus which is a nonspecific finding. Metastatic disease to the clivus cannot be entirely excluded. Follow up to resolution is suggested. D/ / 07/09/2017 11:49:22 Naheed Fountain MD / josh Interpreting Provider: Naheed Fountain MD - VTE Documentation of Mechanical Device: Intermittent pneumatic compression device Consult Discharge Plan - Plan Referrals: Corey Waddell DO [Primary Care Provider] -
[2017-07-09] MEDS: Insulin DETEMIR 100 UNIT/ML X5UNITS SQ SCH (20:46)
[2017-07-10] MEDS: 0.9 % Sodium Chloride 1,000 ML IVC SCH (01:22)
[2017-07-10] MEDS: Gabapentin 400 MG CAPSULE PO SCH ×5 (02:10→21:57)
[2017-07-10] MEDS: *HR* OxyCODONE/APAP 5/325 TABLET PO PRN ×3 (06:46→22:51)
[2017-07-10] MEDS: *HR* Heparin 5,000 UNIT/ML VIAL SQ SCH ×2 (06:46→17:37)
[2017-07-10] MEDS: clonazePAM 1 MG TABLET PO PRN (08:52)
[2017-07-10] MEDS: cefTRIAXone 1,000 MG in Water for inj. (sterile) 10 ML IVP SCH (08:52)
[2017-07-10] MEDS: FISH OIL 1000 MG PO SCH (08:53)
[2017-07-10] MEDS: Aspirin 81 MG TAB.CHEW PO SCH (08:53)
[2017-07-10] MEDS: Insulin LISPRO 300 UNITS/3 ML VIAL SQ SCH ×4 (08:54→21:56)
[2017-07-10] MEDS: Budesonide/Formoterol 160/4.5 MDI IH SCH ×2 (11:14→22:59)
[2017-07-10] MEDS: Tiotropium 18 MCG inhalation IH SCH (11:14)
[2017-07-10] MEDS: Insulin DETEMIR 100 UNIT/ML X5UNITS SQ SCH ×2 (12:33→21:57)
--- NOTE | 2017-07-10 13:25 | Internal Med Progress Note ---
Date of Encounter: 07/10/17 Time of Encounter: 12:10 - Assessment and plan (1) TIA (transient ischemic attack) Current Visit: Yes Status: Acute Assessment and plan: Patient presented to the emergency department with main complaint of left-sided numbness. Onset approximately 5 AM on the day of admission she began experiencing numbness on the left side of her body, as well as weakness. Symptoms continued to improve throughout the day and by the time she was assessed by the admit her, symptoms had resolved. Patient has no focal neurological deficits, extremities are strong and equal bilaterally in upper and lower extremities. Her face is symmetrical, her gait, although slow, steady. Patient does have a urinary tract infection and is being treated with antibiotics. There does not appear to be a substantial electrolyte abnormality and her blood pressure has been well controlled. Abnormal result on brain MRI with low signal in the clivis, which is nonspecific and will require outpatient follow-up. Pt denies any complaint of numbness, tingling, or weakness. Chest X-Ray 07/08/17 17:05 IMPRESSION: No acute cardiopulmonary process. D/ / Rachel Cardona MD / Rachel Cardona MD Interpreting Provider: Rachel Cardona MD Head CT 07/08/17 17:05 IMPRESSION: Stable negative CT brain with no acute intracranial abnormality. D/ / Sangeetha Alexandra MD / Sangeetha Alexandra MD Interpreting Provider: Sangeetha Alexandra MD Brain MRI 07/09/17 09:17 IMPRESSION: Cerebral atrophy. Mild chronic small vessel ischemic changes. There are no areas of restricted diffusion to suggest an acute ischemic event. Low signal in the clivus which is a nonspecific finding. Metastatic disease to the clivus cannot be entirely excluded. Follow up to resolution is suggested. D/ / 07/09/2017 11:49:22 Naheed Fountain MD / josh Interpreting Provider: Naheed Fountain MD Qualifiers: Transient cerebral ischemia type: unspecified Qualified Code(s): G45.9 - Transient cerebral ischemic attack, unspecified (2) UTI (urinary tract infection) Current Visit: Yes Status: Acute Assessment and plan: Patient treated for UTI. Patient had moderate amount leukocyte esterase, 30-50 white cells microscopic, few bacteria. Culture is indicated and pending. She has been treated with Rocephin 1 g IV daily. Patient reports multiple urinary tract infections dating clear back to October of this year. She has had urine cultures that are positive for Escherichia coli 4 times, and in April, 1 urine culture positive for Enterobacte cloacae complex. I discussed proper hygiene with patient, she states that she follow all the necessary steps. Patient does not have right or left CVA tenderness. She is afebrile and no tachycardia. She had mild leukocytosis of 11.7 which is declining from admission 12.9. Patient could potentially benefit from a consult to urology on discharge. Initial urine culture shows gram negative ventura and enterococcus species. Will wait for sensitivity and continue Rocephin. Pt with right flank and RLQ pain, will get CT abd/pelvis. Continue Pyridium Continue IV antibiotics Final urine culture pending. Qualifiers: Urinary tract infection type: acute cystitis Hematuria presence: with hematuria Qualified Code(s): N30.01 - Acute cystitis with hematuria (3) Morbid obesity with BMI of 45.0-49.9, adult Current Visit: Yes Status: Chronic Assessment and plan: Chronic. Lifestyle changes. BMI 48.1 (4) Type 2 diabetes mellitus Current Visit: Yes Status: Chronic Assessment and plan: A1c is 8.7 in April. Not well controlled diabetes. Continue sliding scale insulin, Accu-Cheks before meals at bedtime, diabetic diet. 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 Encourage ambulation. (6) COPD (chronic obstructive pulmonary disease) Current Visit: Yes Status: Chronic Assessment and plan: No acute exacerbation. Pt is wearing 02 at her normal baseline. Titrate as needed to maintain sats > 92%. Continue albuterol inhaler, Symbicort, and Spiriva Qualifiers: COPD type: emphysema Emphysema type: panlobular Qualified Code(s): J43.1 - Panlobular emphysema - Time Spent With Patient less than 15 minutes - Subjective Interval history: Pt was seen and assessed at 1210 a.m. Pt states that she feels very tired and achy. She is agreeable to stay until tomorrow for urine sensitivity results. She still reports R low abdomen and R flank pain, will do CT abd/pelvis to assess for renal calculi. She denies n/v/d, no CVA tenderness. - Constitutional Vitals: Temp Pulse Resp BP Pulse Ox 98.2 F 83 17 140/73 93 07/10/17 11:25 07/10/17 11:25 07/10/17 11:25 07/10/17 11:25 07/10/17 11:25 General appearance: Present: cooperative, A&O X 3, morbidly obese, no acute distress, answers questions appropriately - Head Head exam: Present: atraumatic, normal inspection, normocephalic - Eye Eye exam: Present: normal appearance, conjuntiva pink, sclera anicteric - Neck Neck exam general surgery: Present: supple, trachea midline. Absent: lymphadenopathy, tenderness - Respiratory Respiratory exam: Present: CTAB. Absent: accessory muscle use, rales, rhonchi, wheezes - Cardiovascular Cardiovascular exam: Present: RRR, +S1, +S2. Absent: diastolic murmur, gallop, rubs, systolic murmur - GI/Abdominal GI/Abdominal exam: Present: normal bowel sounds, soft, tenderness. Absent: distended, hepatomegaly - Extremities Exam Extremities exam: Present: normal capillary refill, normal inspection, warm, radial pulses palpable and symmetrical. Absent: calf tenderness, cyanotic, mottling, pedal edema - Neurological Exam Neurological exam: Present: alert, oriented X3, no focal deficits. Absent: facial droop, speech deficit - Skin Skin exam: Present: dry, intact, normal color, warm. Absent: rash Internal Medicine: Result - Labs CBC & Chem 7: 07/09/17 03:10 07/09/17 03:10 - VTE Documentation of Mechanical Device: Intermittent pneumatic compression device Consult Discharge Plan - Plan Referrals: Corey Waddell DO [Primary Care Provider] -
--- NOTE | 2017-07-10 17:43 | Electrocardiograph Report ---
[place] [id number] Test Date: 2017-07-08 Pat Name: Claire Lynch Department: 103 Room: 3B46 Gender: F Location Man: : 1955 Requested By: Ashok Jay Order Number: [id number] Reading MD: Maged Cleaning MD Measurements Intervals [place] Rate: 77 P: 37 OK: 150 QRS: 12 QRSD: 82 T: 19 QT: 413 QTc: 445 Interpretive Statements SINUS RHYTHM LOW QRS VOLTAGE IN PRECORDIAL LEADS Poor R wave progression Electronically Signed On 07-10-2017 17:41:38 EST by Maged Cleaning MD
[2017-07-10] MEDS ORDERED: ARIPiprazole 10 MG TABLET PO SCH (21:00)
[2017-07-10] MEDS ORDERED: Ketorolac 15 MG/ML VIAL IVP ONE (21:46)
[2017-07-11] MEDS: 0.9 % Sodium Chloride 1,000 ML IVC SCH ×2 (00:19→15:03)
[2017-07-11] MEDS: Gabapentin 400 MG CAPSULE PO SCH ×3 (03:39→12:20)
[2017-07-11] MEDS: *HR* OxyCODONE/APAP 5/325 TABLET PO PRN ×2 (04:02→11:04)
[2017-07-11 05:48] LABS: Basophils # 0.1 K/mcL (0.0-0.2); Basophils % 0.8 %; Eosinophils # 0.2 K/mcL (0.0-0.6); Eosinophils % 2.4 %; Hematocrit 36.2 % (35.3-44.9); Hemoglobin 10.6 g/dL (11.5-15.4); Immature Granulocytes % 1.4 % (0-4); Lymphocytes # 2.5 K/mcL (0.6-4.6); Mean Corpuscular HGB Conc 29.3 g/dL (31.6-35.5); Mean Corpuscular Hemoglobin 25.1 pg (28.0-33.3); Mean Corpuscular Volume 85.6 fL (83.0-100.0); Mean Platelet Volume 11.8 fL (9.4-12.4); Monocytes # 0.5 K/mcL (0.0-1.3); Monocytes % 5.5 %; Neutrophils # 5.4 K/mcL (1.6-8.9); Nucleated Red Blood Cells 0.2 /100 WBC (0); Platelet Count 235 K/mcL (140-400); Red Blood Count 4.23 M/mcL (3.82-4.97); Red Cell Distribution Width 16.5 % (11.5-14.5); Segmented Neutrophils % 61.9 %
[2017-07-11 06:10] LABS: BUN/Creatinine Ratio 23 (6-26); Blood Urea Nitrogen 22 mg/dL (7-20); Calcium 8.8 mg/dL (8.6-10.8); Carbon Dioxide 27 mEq/L (19-29); Chloride 104 mEq/L (98-109); Glucose 253 mg/dL (70-99); Osmolality,Calculated 300 (280-300); Sodium 139 mEq/L (136-145); eGFR For African Americans > 60 (> 60); eGFR For Non-African Americans 59 (> 60)
[2017-07-11 06:11] LABS: Potassium 4.3 mEq/L (3.5-4.5)
[2017-07-11] MEDS: *HR* Heparin 5,000 UNIT/ML VIAL SQ SCH (06:32)
[2017-07-11] MEDS ORDERED: Ketorolac 15 MG/ML VIAL IVP ONE (06:43)
[2017-07-11] MEDS: Insulin DETEMIR 100 UNIT/ML X5UNITS SQ SCH (07:58)
[2017-07-11] MEDS: cefTRIAXone 1,000 MG in Water for inj. (sterile) 10 ML IVP SCH (08:01)
[2017-07-11] MEDS: FISH OIL 1000 MG PO SCH (08:01)
[2017-07-11] MEDS: Insulin LISPRO 300 UNITS/3 ML VIAL SQ SCH ×2 (08:02→12:20)
[2017-07-11] MEDS: Aspirin 81 MG TAB.CHEW PO SCH (08:07)
[2017-07-11] MEDS: Tiotropium 18 MCG inhalation IH SCH (08:25)
[2017-07-11] MEDS: Budesonide/Formoterol 160/4.5 MDI IH SCH (08:25)
[2017-07-11] MEDS: clonazePAM 1 MG TABLET PO PRN (11:03)
[2017-07-11] MEDS ORDERED: Ketorolac 30 MG/ML VIAL IVP ONE (12:30)
[2017-07-11] MEDS ORDERED: MOM Conc 10 ML UD.LIQ PO ONE (12:30)
[2017-07-11 12:43] VITALS: BP 147/93
[2017-07-11] MEDS ORDERED: Fluconazole 100 MG TABLET PO ONE (13:34)
[2017-07-11] MEDS ORDERED: Doxycycline 100 MG CAPSULE PO SCH (13:45)
[2017-07-11] MEDS ORDERED: levoFLOXacin 500 MG TABLET PO SCH (13:45)
--- NOTE | 2017-07-11 14:31 | Discharge Summary ---
Date of Encounter: 07/11/17 Time of Encounter: 09:45 - Discharge Diagnosis (1) UTI (urinary tract infection) Priority: Primary Status: Acute Comments: Patient treated for UTI. Patient had moderate amount leukocyte esterase, 30-50 white cells microscopic, few bacteria. She was treated with Rocephin 1 g IV daily. Patient reports multiple urinary tract infections dating clear back to October of this year. She has had urine cultures that are positive for Escherichia coli 4 times, and in April, 1 urine culture positive for Enterobacte cloacae complex. I discussed proper hygiene with patient, she states that she follow all the necessary steps. Patient does not have right or left CVA tenderness. She is afebrile and no tachycardia. She had mild leukocytosis of 12.9, has resolved. Patient has appointment with both PCP and urology next week. Final cx and sensitivity showed enterobacter and enterococcus, will treat with Levaquin and Doxycycline. Pt will have Diflucan prior to discharge, one for home. Pt with right flank and RLQ pain CT of abdomen and pelvis was negative. Will continue Pyridium. Abdomen/Pelvis CT 07/10/17 15:30 IMPRESSION: 1. No acute findings within the abdomen or pelvis. Mild diffuse colonic stool burden suggesting possible constipation. No pericolonic inflammatory changes. No evidence of obstructive uropathy or appendicitis. 2. Previous cholecystectomy and hysterectomy. 3. Stable T12 compression fracture. D/ /10/2017 17:12:25 Jeffrey Thomason MD / josh Interpreting Provider: Jeffrey Thomason MD Qualifiers: Urinary tract infection type: acute cystitis Hematuria presence: with hematuria Qualified Code(s): N30.01 - Acute cystitis with hematuria (2) TIA (transient ischemic attack) Priority: Secondary Status: Acute Comments: Patient presented to the emergency department with main complaint of left-sided numbness. Onset approximately 5 AM on the day of admission she began experiencing numbness on the left side of her body, as well as weakness. Symptoms continued to improve throughout the day and by the time she was assessed by the admit her, symptoms had resolved. Patient has no focal neurological deficits, extremities are strong and equal bilaterally in upper and lower extremities. Her face is symmetrical, her gait, although slow, steady. Patient does have a urinary tract infection and is being treated with antibiotics, most likely the source of her symptoms. Head CT 07/08/17 17:05 IMPRESSION: Stable negative CT brain with no acute intracranial abnormality. D/ / Sangeetha Alexandra MD / Sangeetha Alexandra MD Interpreting Provider: Sangeetha Alexandra MD Brain MRI 07/09/17 09:17 IMPRESSION: Cerebral atrophy. Mild chronic small vessel ischemic changes. There are no areas of restricted diffusion to suggest an acute ischemic event. Low signal in the clivus which is a nonspecific finding. Metastatic disease to the clivus cannot be entirely excluded. Follow up to resolution is suggested. D/ / 07/09/2017 11:49:22 Naheed Fountain MD / josh Interpreting Provider: Naheed Fountain MD Qualifiers: Transient cerebral ischemia type: unspecified Qualified Code(s): G45.9 - Transient cerebral ischemic attack, unspecified (3) Morbid obesity with BMI of 45.0-49.9, adult Priority: Secondary Status: Chronic Comments: Chronic. (4) Type 2 diabetes mellitus Priority: Secondary Status: Chronic Comments: A1c is 8.7 in April. Not well controlled diabetes. Continue sliding scale insulin, Accu-Cheks before meals at bedtime, diabetic diet. 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 mellitus complication status: with neurologic complications Diabetes mellitus complication detail: with polyneuropathy Diabetes mellitus detention insulin use: with intermodal customer service use Qualified Code(s): E11.42 - Type 2 diabetes mellitus with diabetic polyneuropathy; Z79.4 - retirement (current) use of insulin; Z79.4 - long term care phlebotomist (current) use of insulin; Z79.4 - retirement ( current) use of insulin; Z79.4 - retirement (current) use of insulin (5) DVT prophylaxis Priority: Secondary Status: Acute Comments: Heparin subcutaneous daily. (6) COPD (chronic obstructive pulmonary disease) Priority: Secondary Status: Chronic Comments: No acute exacerbation. Patient is not requiring oxygen but for normal baseline demand. Continue her home medications. Qualifiers: COPD type: emphysema Emphysema type: panlobular Qualified Code(s): J43.1 - Panlobular emphysema - Discharge Medications Prescriptions: Doxycycline 100 mg PO BID #20 capsule levoFLOXacin [Levaquin] 500 mg PO DAILY #20 tablet Phenazopyridine [Pyridium] 100 mg PO TID PRN #6 tablet PRN Reason: pain Home Medications: Budesonide/Formoterol 160/4.5 [Symbicort] 2 puff IH BIDR 04/21/15 [History] Levothyroxine [Synthroid] 100 mcg PO QAM 04/21/15 [History] Tiotropium [Spiriva] 18 mcg IH QAM 04/21/15 [History] metFORMIN [Glucophage] 1,000 mg PO BID 04/21/15 [History] Atorvastatin Calcium [Lipitor] 40 mg PO DAILY 02/04/16 [History] Montelukast [Singulair] 10 mg PO HS 02/04/16 [History] Oxygen 2 l NS AD PRN 03/17/16 [History] Insulin Glargine [Lantus] 80 unit SQ QPM 03/25/16 [History] Insulin Glargine [Lantus] 90 unit SQ QAM 03/25/16 [History] Albuterol Sulfate [Albuterol Inhaler] 2 puff IH Q4HR PRN 05/01/16 [History] Citalopram Hydrobromide [Citalopram HBr] 40 mg PO DAILY 05/01/16 [History] Raloxifene [Evista] 60 mg PO DAILY 05/01/16 [History] Aripiprazole [Abilify] 10 mg PO HS tablet 05/03/16 [Rx] Fenofibrate Nanocrystallized [Tricor] 145 mg PO DAILY 06/15/16 [History] Clopidogrel [Plavix] 75 mg PO QAM tablet 06/18/16 [Rx] Aspirin 81 mg PO DAILY #60 tab.chew 12/06/16 [Rx] Mag Hydrox/Al Hydrox/Simeth [Maalox] 30 ml PO Q6H PRN 30 Days oral.susp [Rx] Cholecalciferol (D-3) [Vitamin D] 1,000 unit PO DAILY 04/27/17 [History] Metoclopramide [Reglan] 10 mg PO TID 04/27/17 [History] Metoprolol XL (24 HR) Succ [Toprol Xl] 50 mg PO DAILY 04/27/17 [History] Insulin LISPRO [Humalog Kwikpen U-100] 2 - 10 unit SQ TID PRN 05/09/17 [History] Tramadol HCl [Ultram] 50 mg PO TID PRN #10 05/12/17 [Rx] clonazePAM [Klonopin] 1 mg PO TID PRN 05/28/17 [History] Magnesium Oxide [Mag-Ox] 400 mg PO DAILY #0 tab 05/29/17 [Rx] Bumetanide 2 mg PO BID 06/11/17 [History] Buspirone HCl [Buspar] 15 mg PO TID 06/11/17 [History] Gabapentin [Neurontin] 800 mg PO 5XD 06/11/17 [History] Omeprazole [PriLOSEC] 20 mg PO BIDAC 06/11/17 [History] Potassium Chloride 20 meq PO BID 06/11/17 [History] Tizanidine HCl [Zanaflex] 4 mg PO TID 06/11/17 [History] amLODIPine [Norvasc] 2.5 mg PO DAILY 06/11/17 [History] metOLazone [Zaroxolyn] 2.5 mg PO DAILY 06/11/17 [History] Isosorbide MONOnitrate (24 HR) [Imdur] 90 mg PO DAILY 06/26/17 [History] [place]-3 Fatty Acids/Fish Oil [Fish Oil 1,000 mg Softgel] 1 cap PO DAILY [History] Oxycodone HCl/Acetaminophen [Percocet 5-325 mg Tablet] 1 tab PO Q6H PRN [History] Nortriptyline [Pamelor] 25 mg PO HS 06/27/17 [History] DiphenhydraMINE [Benadryl] 25 mg PO ONCE PRN capsule 07/11/17 [Rx] Doxycycline 100 mg PO BID #20 capsule 07/11/17 [Rx] Phenazopyridine [Pyridium] 100 mg PO TID PRN #6 tablet 07/11/17 [Rx] levoFLOXacin [Levaquin] 500 mg PO DAILY #20 tablet 07/11/17 [Rx] Allergies/Adverse Reactions: 3 Allergy/AdvReac Type Severity Reaction Status Date / Time No Known Allergies Allergy Verified 06/11/17 00:04 Procedures/tests Complete & Pending: Procedures Performed prior 72 hours Category Date Time Status CT abd pelvis wo no iv no oral [CT] Routine Cat Scan 07/10/17 15:30 Completed MR head/brain wo con [MR] Routine MRI 07/09/17 09:17 Draft Date of admission: 07/08/17 20:04 Primary care physician: Corey Waddell, Consults: 07/09/17 00:12 Consult to Occupational Therapy [CONS] Routine Comment: Evaluate, develop and implement POC Reason for Consult: weakness Consult to Physical Therapy [CONS] Routine Comment: Evaluate, develop and implement POC Reason for Consult: weakness Discharging clinician: Maci Woodall Anticipated date of discharge: 07/11/17 - Patient Status Disposition: Home, Self-Care Condition: Good Functional capacity at discharge: independent ambulation Overall status at discharge: patient is back to baseline - Discharge Instructions Follow Up With: Corey Waddell, [Primary Care Provider] - Additional Instructions: Follow up with urology and Dr. Waddell next week as scheduled. Return to ER as needed for any other problems or concerns. Resume your home medications. REsume your normal activitites as tolerated. Take your antibiotics exactly as directed, keep them on schedule, drink plenty of water, and take them until they are gone. f I have called in your prescriptions to [facility]. - Diet and Activity Activity: increase activity as tolerated, resume usual activities as tolerated Diet: diabetic diet, low fat, low cholesterol Interval History: See assessment and plan for hospital course. Hospital course: Ms. Lynch is a 61 year old female - Time Spent with Patient Total time spent providing and/or coordinating discharge services: Less than 30 minutes - Constitutional Vitals: Temp Pulse Resp BP Pulse Ox 98.1 F 81 17 147/93 92 07/11/17 11:31 07/11/17 11:31 07/11/17 11:31 07/11/17 12:42 07/11/17 11:31 General appearance: Present: cooperative, A&O X 3, morbidly obese, no acute distress, answers questions appropriately - Head Head exam: Present: atraumatic, normal inspection, normocephalic - Eye Eye exam: Present: PERRL, conjuntiva pink, sclera anicteric Pupils: Present: PERRL - Neck Neck exam general surgery: Present: normal inspection, supple, trachea midline. Absent: lymphadenopathy, tenderness - Respiratory Respiratory exam: Present: CTAB. Absent: accessory muscle use, rales, rhonchi, wheezes - Cardiovascular Cardiovascular exam: Present: RRR, +S1, +S2. Absent: diastolic murmur, gallop, rubs, systolic murmur - GI/Abdominal GI/Abdominal exam: Present: normal bowel sounds, soft, no peritoneal signs. Absent: distended, hepatomegaly, tenderness - Extremities Exam Extremities exam: Present: warm, radial pulses palpable and symmetrical. Absent : calf tenderness, cyanotic, pedal edema - Neurological Exam Neurological exam: Present: alert, oriented X3, no focal deficits. Absent: facial droop, speech deficit - Skin Skin exam: Present: dry, intact, normal color, warm. Absent: rash - VTE Documentation of Mechanical Device: Intermittent pneumatic compression device
[2017-07-11 19:49] LABS: CK-BB (CK isoenzymes) 0 % (0-0); CK-MB (CK isoenzymes) 0 % (0-4); CK-MM (CK-isoenzymes) 100 % (96-100)
[2017-07-12 07:18] LABS: CK Total (Ck Isoenzymes) 74 U/L (20-180)
[2017-07-14 01:40] LABS: CK-BB (CK isoenzymes) 0 % (0-0); CK-MB (CK isoenzymes) 0 % (0-4); CK-MM (CK-isoenzymes) 100 % (96-100)
[2017-07-14 08:13] LABS: CK Total (Ck Isoenzymes) 95 U/L (20-180)
== END 2017-07-11 15:33 | disposition home or self-care (01) ==
LOC: EMEROO 17:02 → 3BNU 17:02
PROVIDERS: ADMIT Hospitalist; ATTEND Registered Nurse

== ENCOUNTER 2017-08-29 06:31 | Observation (INO) ==
--- NOTE | 2017-08-29 06:40 | Emergency Department Note ---
Disposition Clinical Impression: Chest pain, rule out acute myocardial infarction Disposition: Admitted As Inpatient Condition: Fair Time of Disposition: 08:59 Chest Pain HPI - General Chief Complaint: ED Chest Pain Stated Complaint: CP Time Seen by Provider: 08/29/17 06:35 Source: patient, EMS Mode of arrival: EMS Limitations: no limitations Vital Signs Reviewed: Yes Nursing Notes Reviewed: Yes - History of Present Illness HPI Narrative: Alert and oriented nontoxic appearing 61-year-old female presents for evaluation of left-sided chest pain and shortness of breath that awoke her from sleep at 3:00 this morning. She describes this left-sided chest pain as sharp in nature. It is worsened with deep inspiration. Eyes any fever, chills, cough , or hemoptysis. She denies any abdominal pain or vomiting but complains of being slightly nauseated. She states this pain does radiate into the left shoulder. She was given aspirin 324 mg and nitroglycerin sublingual tablets 1 per EMS in route to the hospital. She denies any alleviating factors. She denies any hemoptysis. Pt complaint: chest pain Onset (ago): hour(s) (0300) Duration: constant Onset: awoke with symptoms Pain Location: left chest Severity: moderate Severity scale (1-10): 7 Quality: sharp Pain Radiation: LUE Improves with: nothing Worsens with: inspiration Associated symptoms: Reports: nausea, dyspnea, palpitations. Denies: vomiting, diaphoresis, syncope, fever, cough, leg swelling Treatments prior to arrival chest pain: aspirin (324mg per EMS), nitroglycerin ( sublingual x 1) - Related Data Home Medications Medication Instructions Recorded Confirmed Budesonide/Formoterol 160/4.5 2 puff IH BIDR 04/21/15 07/08/17 [Symbicort] Levothyroxine [Synthroid] 100 mcg PO QAM 04/21/15 07/08/17 Tiotropium [Spiriva] 18 mcg IH QAM 04/21/15 07/08/17 metFORMIN [Glucophage] 1,000 mg PO BID 04/21/15 07/08/17 Atorvastatin Calcium [Lipitor] 40 mg PO DAILY 02/04/16 07/08/17 Montelukast [Singulair] 10 mg PO HS 02/04/16 07/08/17 Oxygen 2 l NS AD PRN 03/17/16 07/08/17 Insulin Glargine [Lantus] 80 unit SQ QPM 03/25/16 07/08/17 Insulin Glargine [Lantus] 90 unit SQ QAM 03/25/16 07/08/17 Albuterol Sulfate [Albuterol 2 puff IH Q4HR PRN 05/01/16 07/08/17 Inhaler] Citalopram Hydrobromide 40 mg PO DAILY 05/01/16 07/08/17 [Citalopram HBr] Raloxifene [Evista] 60 mg PO DAILY 05/01/16 07/08/17 Fenofibrate Nanocrystallized 145 mg PO DAILY 06/15/16 07/08/17 [Tricor] Cholecalciferol (D-3) [Vitamin D] 1,000 unit PO DAILY 04/27/17 07/08/17 Metoclopramide [Reglan] 10 mg PO TID 04/27/17 07/08/17 Metoprolol XL (24 HR) Succ [Toprol 50 mg PO DAILY 04/27/17 07/08/17 Xl] Insulin LISPRO [Humalog Kwikpen 2 - 10 unit SQ TID PRN 05/09/17 07/08/17 U-100] clonazePAM [Klonopin] 1 mg PO TID PRN 05/28/17 07/08/17 Bumetanide 2 mg PO BID 06/11/17 07/08/17 Buspirone HCl [Buspar] 15 mg PO TID 06/11/17 07/08/17 Gabapentin [Neurontin] 800 mg PO 5XD 06/11/17 07/08/17 Omeprazole [PriLOSEC] 20 mg PO BIDAC 06/11/17 07/08/17 Potassium Chloride 20 meq PO BID 06/11/17 07/08/17 Tizanidine HCl [Zanaflex] 4 mg PO TID 06/11/17 07/08/17 amLODIPine [Norvasc] 2.5 mg PO DAILY 06/11/17 07/08/17 metOLazone [Zaroxolyn] 2.5 mg PO DAILY 06/11/17 07/08/17 Isosorbide MONOnitrate (24 HR) 90 mg PO DAILY 06/26/17 07/08/17 [Imdur] [place]-3 Fatty Acids/Fish Oil [Fish 1 cap PO DAILY 06/26/17 07/08/17 Oil 1,000 mg Softgel] Oxycodone HCl/Acetaminophen 1 tab PO Q6H PRN 06/26/17 07/08/17 [Percocet 5-325 mg Tablet] Nortriptyline [Pamelor] 25 mg PO HS 06/27/17 07/08/17 Previous Rx's Medication Instructions Recorded Aripiprazole [Abilify] 10 mg PO HS tablet 05/03/16 Clopidogrel [Plavix] 75 mg PO QAM tablet 06/18/16 Aspirin 81 mg PO DAILY #60 tab.chew 12/06/16 Mag Hydrox/Al Hydrox/Simeth 30 ml PO Q6H PRN 30 Days oral.susp 03/26/17 [Maalox] Tramadol HCl [Ultram] 50 mg PO TID PRN #10 05/12/17 Magnesium Oxide [Mag-Ox] 400 mg PO DAILY #0 tab 05/29/17 DiphenhydraMINE [Benadryl] 25 mg PO ONCE PRN capsule 07/11/17 Doxycycline 100 mg PO BID #20 capsule 07/11/17 Phenazopyridine [Pyridium] 100 mg PO TID PRN #6 tablet 07/11/17 levoFLOXacin [Levaquin] 500 mg PO DAILY #20 tablet 07/11/17 Phenazopyridine [Pyridium] 200 mg PO TID #6 tablet 07/16/17 Ibuprofen 800 mg PO Q8H PRN #30 tablet 08/03/17 Levofloxacin [Levaquin] 750 mg PO DAILY #7 tablet 08/06/17 Nitrofurantoin Monohyd/M-Cryst 100 mg PO BID #14 capsule 08/23/17 [Macrobid 100 mg Capsule] Phenazopyridine [Pyridium] 100 mg PO TID PRN #14 tablet 08/23/17 Allergies Allergy/AdvReac Type Severity Reaction Status Date / Time No Known Allergies Allergy Verified 08/06/17 10:52 All systems ED: reviewed and negative except as stated. Constitutional: Denies: fever, chills, weakness, weight change Eyes: Denies: eye pain, eye discharge, vision change ENT ED: Denies: ear pain, throat pain, dental pain, hearing loss, epistaxis, congestion, dysphagia Cardiovascular: Reports: as per HPI, chest pain. Denies: palpitations, dyspnea on exertion, edema, syncope Respiratory: Reports: as per HPI, dyspnea. Denies: cough, wheezes, hemoptysis, stridor Gastrointestinal: Reports: as per HPI, nausea. Denies: abdominal pain, vomiting , diarrhea, constipation, hematemesis, melena, hematochezia Genitourinary: Denies: dysuria, frequency, hematuria, discharge Musculoskeletal: Denies: back pain, neck pain, arthralgia, myalgia Integumentary: Denies: rash, abrasion, lesions Neurological: Denies: headache, weakness, numbness, paresthesias, confusion, abnormal gait, vertigo Psychiatric: Denies: anxiety, depression, suicidal thoughts, homicidal thoughts , auditory hallucinations, visual hallucinations Endocrine: Denies: fatigue Hematological/Lymphatic: Denies: easy bleeding, easy bruising Allergic/Immunologic: Denies: facial swelling, urticaria Chest Pain PMH - Past Medical History Medical history: Reports: arthritis, CHF, COPD, coronary artery disease, diabetes, GERD, hyperlipidemia, hypertension, osteoporosis, renal disease, thyroid disease, TIA, venous stasis, other Surgical history: Reports: angioplasty/stent, , cholecystectomy, hysterectomy Psychiatric history: Reports: anxiety, bipolar, depression, panic disorder 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 Absent: nystagmus - ENT ENT exam: mucous membranes moist - Neck Neck exam: Present: normal inspection, full ROM, trachea midline - Chest Chest inspection: Present: normal inspection, symmetric chest wall rise - Respiratory Respiratory exam: Present: normal lung sounds bilaterally. Absent: respiratory distress, wheezes, stridor, accessory muscle use, prolonged expiratory phase - Cardiovascular Cardiovascular exam: Present: regular rate, normal rhythm, normal heart sounds - Abdominal Exam Abdominal exam: Present: soft, Non-Tender, normal bowel sounds - Extremities Exam Extremities exam: Present: normal inspection, full ROM, pedal edema (1+ edema noted bilaterally). Absent: tenderness - Neurological Exam Neurological exam: Present: alert, oriented X3 - Psychiatric Psychiatric exam: Present: normal affect, normal mood - Skin Skin exam: Present: warm, dry, intact, normal color Course Course Narrative: I spoke with Dr. Shepherd of the hospital service. Dr. Shepherd has accepted the patient for admission under her care for chest pain rule out. I discussed this plan with Dr. Tinoco. Dr. Tinoco has had a [id number] evaluation with the patient and agrees with this plan. 0923: I spoke with Dr. Anthony, repair manager medical receptionist medical assistant. I discussed this patient' s case, presentation, and history. Dr. Anthony states that cardiology will be happy to consult in house. Vital Signs Temperature 98.5 F 08/29/17 06:31 Pulse Rate 95 08/29/17 06:31 Respiratory Rate 20 08/29/17 06:31 Blood Pressure 142/78 08/29/17 06:31 O2 Sat by Pulse Oximetry 93 08/29/17 06:31 Temperature 98.5 F 08/29/17 06:31 Pulse Rate 95 08/29/17 08:47 Respiratory Rate 13 08/29/17 08:47 Blood Pressure 124/50 08/29/17 08:47 O2 Sat by Pulse Oximetry 96 08/29/17 08:47 Oxygen Delivery Oxygen Delivery Nasal Cannula Chest Pain - Medical Records Medical records reviewed: Yes I reviewed the patient's medical records. - Lab Data Lab results reviewed: Yes I reviewed the patient's lab results. Lab results narrative: Laboratory Last Values WBC 11.7 K/mcL (4.3-11.1) H 08/29/17 06:49 RBC 4.30 M/mcL (3.82-4.97) 08/29/17 06:49 Hgb 10.9 g/dL (11.5-15.4) L 08/29/17 06:49 Hct 35.5 % (35.3-44.9) 08/29/17 06:49 MCV 82.6 fL (83.0-100.0) L 08/29/17 06:49 MCH 25.3 pg (28.0-33.3) L 08/29/17 06:49 MCHC 30.7 g/dL (31.6-35.5) L 08/29/17 06:49 RDW 15.7 % (11.5-14.5) H 08/29/17 06:49 Plt Count 264 K/mcL (140-400) 08/29/17 06:49 MPV 11.6 fL (9.4-12.4) 08/29/17 06:49 Immature Gran % 2.0 % (0-4) 08/29/17 06:49 Seg Neutrophils % 64.3 % 08/29/17 06:49 Lymphocytes % 25.8 % 08/29/17 06:49 Monocytes % 5.1 % 08/29/17 06:49 Eosinophils % 2.0 % 08/29/17 06:49 Basophils % 0.8 % 08/29/17 06:49 Neutrophils # 7.5 K/mcL (1.6-8.9) 08/29/17 06:49 Lymphocytes # 3.0 K/mcL (0.6-4.6) 08/29/17 06:49 Monocytes # 0.6 K/mcL (0.0-1.3) 08/29/17 06:49 Eosinophils # 0.2 K/mcL (0.0-0.6) 08/29/17 06:49 Basophils # 0.1 K/mcL (0.0-0.2) 08/29/17 06:49 Nucleated RBCs/100 WBC 0.3 /100 WBC (0) H 08/29/17 06:49 PT 9.6 Seconds (9.4-12.1) 08/29/17 06:49 INR 0.9 08/29/17 06:49 APTT 24.8 Seconds (26.0-36.0) L 08/29/17 06:49 D-Dimer 265 ng/mLFEU (0-500) 08/29/17 06:49 Sodium 134 mEq/L (136-145) L 08/29/17 06:49 Potassium 3.5 mEq/L (3.5-5.1) 08/29/17 06:49 Chloride 92 mEq/L (98-107) L 08/29/17 06:49 Carbon Dioxide 32 mEq/L (23-29) H 08/29/17 06:49 BUN 31 mg/dL (6-20) H 08/29/17 06:49 Creatinine 1.33 mg/dL (0.60-1.20) H 08/29/17 06:49 Est GFR ( Amer) 49 (> 60) L 08/29/17 06:49 Est GFR (Non-Af Amer) 41 (> 60) L 08/29/17 06:49 BUN/Creatinine Ratio 23 (6-26) 08/29/17 06:49 Glucose 391 mg/dL (70-105) H 08/29/17 06:49 Calculated Osmolality 301 (280-300) H 08/29/17 06:49 Calcium 9.6 mg/dL (8.6-10.3) 08/29/17 06:49 Troponin I < 0.03 ng/mL (< 0.04) 08/29/17 06:49 B-Natriuretic Peptide 31 pg/mL (Less than 100) 08/29/17 06:49 Urine Color Yellow (Yellow) 08/29/17 08:04 Urine Clarity Clear (Clear) 08/29/17 08:04 Urine pH 6.5 pH Units (5.0-8.0) 08/29/17 08:04 Ur Specific [place] 1.027 (1.010-1.025) H 08/29/17 08:04 Urine Protein Negative mg/dL (Neg-Trace) 08/29/17 08:04 Urine Glucose (UA) >=1000 mg/dL (Normal) H 08/29/17 08:04 Urine Ketones Negative mg/dL (Negative) 08/29/17 08:04 Urine Blood Negative (Negative) 08/29/17 08:04 Urine Nitrite Negative (Negative) 08/29/17 08:04 Urine Bilirubin Negative (Negative) 08/29/17 08:04 Urine Urobilinogen Normal mg/dL (Normal) 08/29/17 08:04 Ur Leukocyte Esterase Negative (Negative) 08/29/17 08:04 Ur Culture Indicated? NO (NO) 08/29/17 08:04 Result diagrams: 08/29/17 06:49 08/29/17 06:49 Lab Results 08/29/17 08/29/17 08/29/17 Range/Units 06:49 06:49 06:49 WBC 11.7 H (4.3-11.1) K/mcL RBC 4.30 (3.82-4.97) M/mcL Hgb 10.9 L (11.5-15.4) g/dL Hct 35.5 (35.3-44.9) % MCV 82.6 L (83.0-100.0) fL MCH 25.3 L (28.0-33.3) pg MCHC 30.7 L (31.6-35.5) g/dL RDW 15.7 H (11.5-14.5) % Plt Count 264 (140-400) K/mcL MPV 11.6 (9.4-12.4) fL Immature Gran % 2.0 (0-4) % Seg Neutrophils % 64.3 % Lymphocytes % 25.8 % Monocytes % 5.1 % Eosinophils % 2.0 % Basophils % 0.8 % Neutrophils # 7.5 (1.6-8.9) K/mcL Lymphocytes # 3.0 (0.6-4.6) K/mcL Monocytes # 0.6 (0.0-1.3) K/mcL Eosinophils # 0.2 (0.0-0.6) K/mcL Basophils # 0.1 (0.0-0.2) K/mcL Nucleated RBCs/100 WBC 0.3 H (0) /100 WBC PT 9.6 (9.4-12.1) Seconds INR 0.9 APTT 24.8 L (26.0-36.0) Seconds D-Dimer 265 (0-500) ng/mLFEU Sodium (136-145) mEq/L Potassium (3.5-5.1) mEq/L Chloride (98-107) mEq/L Carbon Dioxide (23-29) mEq/L BUN (6-20) mg/dL Creatinine (0.60-1.20) mg/dL Est GFR ( Amer) (> 60) Est GFR (Non-Af Amer) (> 60) BUN/Creatinine Ratio (6-26) Glucose (70-105) mg/dL Calculated Osmolality (280-300) Calcium (8.6-10.3) mg/dL Troponin I (< 0.04) ng/mL B-Natriuretic Peptide 31 (Less than 100) pg/mL Urine Color (Yellow) Urine Clarity (Clear) Urine pH (5.0-8.0) pH Units Ur Specific [place] (1.010-1.025) Urine Protein (Neg-Trace) mg/dL Urine Glucose (UA) (Normal) mg/dL Urine Ketones (Negative) mg/dL Urine Blood (Negative) Urine Nitrite (Negative) Urine Bilirubin (Negative) Urine Urobilinogen (Normal) mg/dL Ur Leukocyte Esterase (Negative) Ur Culture Indicated? (NO) 08/29/17 08/29/17 08/29/17 Range/Units 06:49 06:49 08:04 WBC (4.3-11.1) K/mcL RBC (3.82-4.97) M/mcL Hgb (11.5-15.4) g/dL Hct (35.3-44.9) % MCV (83.0-100.0) fL MCH (28.0-33.3) pg MCHC (31.6-35.5) g/dL RDW (11.5-14.5) % Plt Count (140-400) K/mcL MPV (9.4-12.4) fL Immature Gran % (0-4) % Seg Neutrophils % % Lymphocytes % % Monocytes % % Eosinophils % % Basophils % % Neutrophils # (1.6-8.9) K/mcL Lymphocytes # (0.6-4.6) K/mcL Monocytes # (0.0-1.3) K/mcL Eosinophils # (0.0-0.6) K/mcL Basophils # (0.0-0.2) K/mcL Nucleated RBCs/100 WBC (0) /100 WBC PT (9.4-12.1) Seconds INR APTT (26.0-36.0) Seconds D-Dimer (0-500) ng/mLFEU Sodium 134 L (136-145) mEq/L Potassium 3.5 (3.5-5.1) mEq/L Chloride 92 L (98-107) mEq/L Carbon Dioxide 32 H (23-29) mEq/L BUN 31 H (6-20) mg/dL Creatinine 1.33 H (0.60-1.20) mg/dL Est GFR ( Amer) 49 L (> 60) Est GFR (Non-Af Amer) 41 L (> 60) BUN/Creatinine Ratio 23 (6-26) Glucose 391 H (70-105) mg/dL Calculated Osmolality 301 H (280-300) Calcium 9.6 (8.6-10.3) mg/dL Troponin I < 0.03 (< 0.04) ng/mL B-Natriuretic Peptide (Less than 100) pg/mL Urine Color Yellow (Yellow) Urine Clarity Clear (Clear) Urine pH 6.5 (5.0-8.0) pH Units Ur Specific [place] 1.027 H (1.010-1.025) Urine Protein Negative (Neg-Trace) mg/dL Urine Glucose (UA) >=1000 H (Normal) mg/dL Urine Ketones Negative (Negative) mg/dL Urine Blood Negative (Negative) Urine Nitrite Negative (Negative) Urine Bilirubin Negative (Negative) Urine Urobilinogen Normal (Normal) mg/dL Ur Leukocyte Esterase Negative (Negative) Ur Culture Indicated? NO (NO) - Radiology Data Radiology results reviewed: Yes I reviewed the patient's radiology results. Chest X-Ray 08/29/17 06:36 IMPRESSION: Minimal pulmonary vascular congestion. No other significant abnormality. D/ / Francis Del Toro MD / Francis Del Toro MD Interpreting Provider: Francsi Del Toro MD - EKG Data EKG attestation: Yes I reviewed and interpreted this EKG. EKG results narrative: EKG reviewed by Dr. Dumont as well. EKG shows a sinus rhythm with possible anterior CT of indeterminate age at a ventricular rate of 96 bpm. WI interval 165, QRS duration 93, QT/QTc interval 383/437. No ectopy noted. No STEMI. No significant changes when compared to an EKG dated from 08/06/17. Heart Score - Score History: Moderately Suspicious EKG: Normal Age: 45-65 Risk Factors: Equal/Greater than 3 risk factor or history of atherosclerotic disease Troponin: Less than normal limit HEART Score Total: 4 Attestation Statement - Attestation Attestation: I examined this patient and my medical decision-making was reviewed with the Resident Physician. I agree with the documented findings, disposition and treatment plan as described except to the extent set forth below. Patient eating the chest pain shortness of breath. Patient well-known to department with similar complaints in the past. States she just does not know what is going on. On exam she is in no acute distress. Plan. Troponin negative. Patient is admitted to medicine.
[2017-08-29 06:58] LABS: Basophils # 0.1 K/mcL (0.0-0.2); Basophils % 0.8 %; Eosinophils # 0.2 K/mcL (0.0-0.6); Hematocrit 35.5 % (35.3-44.9); Hemoglobin 10.9 g/dL (11.5-15.4); Lymphocytes % 25.8 %; Mean Corpuscular HGB Conc 30.7 g/dL (31.6-35.5); Mean Corpuscular Hemoglobin 25.3 pg (28.0-33.3); Mean Corpuscular Volume 82.6 fL (83.0-100.0); Mean Platelet Volume 11.6 fL (9.4-12.4); Monocytes # 0.6 K/mcL (0.0-1.3); Monocytes % 5.1 %; Neutrophils # 7.5 K/mcL (1.6-8.9); Nucleated Red Blood Cells 0.3 /100 WBC (0); Platelet Count 264 K/mcL (140-400); Red Cell Distribution Width 15.7 % (11.5-14.5); Segmented Neutrophils % 64.3 %
[2017-08-29 07:25] LABS: INR 0.9; Prothrombin Time 9.6 Seconds (9.4-12.1)
[2017-08-29 07:28] LABS: Activated Partial Thrombo Time 24.8 Seconds (26.0-36.0)
[2017-08-29 08:12] LABS: Bilirubin,Urine Negative (Negative); Blood,Urine Negative (Negative); Clarity,Urine Clear (Clear); Color,Urine Yellow (Yellow); Glucose,Urine (UA) >=1000 mg/dL (Normal); Ketones,Urine Negative (Negative); Leukocyte Esterase,Urine Negative (Negative); Nitrite,Urine Negative (Negative); PH,Urine 6.5 pH Units (5.0-8.0); Protein,Urine Negative (Neg-Trace); Specific Gravity,Urine 1.027 (1.010-1.025); Urobilinogen,Urine Normal (Normal)
[2017-08-29 08:21] LABS: Calcium 9.6 mg/dL (8.6-10.3); Potassium 3.5 mEq/L (3.5-5.1)
--- NOTE | 2017-08-29 11:46 | Cardiology Consult Note ---
<Faustino Howard - Last Filed: 08/29/17 12:17> Date of Encounter: 08/29/17 Time of Encounter: 11:30 Assessment and Plan (1) Chest pain, rule out acute myocardial infarction Status: Acute Presented to the hospital with chest pain. -2 MIs in the past; describes chest pain as similar nature. -Left-sided sharp chest pain, worse with inspiration, radiating outward, unrelated to exertion, no relieving factors. -EKG showed possible anterior MD of indeterminate age; unchanged from EKG from 08/06/17. -CXR demonstrated minimal pulmonary vascular congestion; no other significant abnormality. -Stress test on 11/23/16 was negative. -Carotid duplex on 05/11/17 was unremarkable. -On 04/07/17, [facility] with stent placement. Plan: -Continue medical management -Pain is likely MSK related; cardiology will sign off (2) Chronic diastolic CHF (congestive heart failure) Status: Chronic Last echocardiogram performed on 05/11/17 demonstrated the following: -Ejection fraction 60-65%. -Normal left ventricular chamber size, wall thickness and function. -Moderate left ventricular diastolic dysfunction. -Normal right ventricular structure and function. -No evidence of pulmonary hypertension. -No significant valvular dysfunction. No signs of CHF exacerbation. (3) Hypertension Status: Acute Patient takes amlodipine 2.5 mg by mouth daily and metoprolol XL 24 hours at home. Qualifiers: Qualified Code(s): I10 - Essential (primary) hypertension (4) Hyperlipidemia Status: Acute Patient takes Lipitor 40 mg by mouth daily at home. Qualifiers: Qualified Code(s): E78.5 - Hyperlipidemia, unspecified Discussion w patient/family: The assessment and plan as outlined above was discussed with the patient and/or family members who expressed understanding and agreement. All questions were answered. Thank you for involving us in the care of your patient. Please call with any questions. History of Present Illness Consult date: 08/29/17 Chief complaint: Chest pain History of present illness: Ms. Lynch is a 61 year old female with a PMH of arthritis, CHF, COPD, CAD, DM, GERD, HLD, HTN, TIA, and venous stasis who presented to ED on 08/29/17 with a chief complaint of chest pain. Patient reports that this chest pain woke her from sleep at approximately 3 AM. Pain was located in the left side of her chest, describes as a sharp sensation radiating outward. Worse with inspiration. Comes and goes, unrelated to exertion. Rated 7/10. Also complains of increased fatigue over the last several days. Admits to some nausea. Patient has had a history of 2 MIs in the past, and states that the pain she is experiencing now is similar to her previous MIs. Patient has had cardiac catheterization in the past, and has had 4 stents placed. Patient expresses concern about the possibility of one of them being partially blocked. Patient was given nitroglycerin and aspirin; no improvement. Upon arrival to the ED, patient's pulse was 95 bpm, respiratory rate 20 per minute. Oxygen saturation was 93. Patient is normally on 2 L of oxygen at home during exertion and at night. Other vital signs were within normal limits. CXR demonstrated minimal pulmonary vascular congestion. No other significant abnormalities. EKG demonstrated sinus rhythm with possible anterior MD of indeterminate age, ventricular rate 96 bpm. No significant changes when compared to EKG from 08/06/17. Laboratory examination was unremarkable; troponin was less than 0.03. Patient was seen and examined at bedside this morning. Patient states that she still experiences chest pain from time to time. States that the pain comes and goes. Also feels short of breath at times. Unrelated to exertion. Also complains of fatigue. Denies any syncope, palpitations, nausea, vomiting, dizziness, or lightheadedness. Past Med Surg Social Fam HX - Past Medical History Medical history: arthritis, CHF, COPD, coronary artery disease, diabetes, GERD, hyperlipidemia, hypertension, osteoporosis, renal disease, thyroid disease, TIA , venous stasis, other Psychiatric history: anxiety, bipolar, depression, panic disorder - Past Surgical History Surgical History: angioplasty/stent, , cholecystectomy, hysterectomy - Social History Smoking Status: Former smoker Smokeless Tobacco Status: No Alcohol use: none Drug use: none - Family History Brother Adopted: No Family Member Ethnicity: Non- Living Status: Hx Family Cardiac Disorders: Yes Father Adopted: No Family Member Ethnicity: Non- Living Status: Hx Family Cardiac Disorders: Yes (HD, HLD, HTN, MD, Triple Bypass) Hx Family Neurologic Disorders: Yes (Dementia) Mother Adopted: No Family Member Ethnicity: Non- Living Status: Hx Family Cardiac Disorders: Yes (MD, HTN, HLD, Strokes x5) Hx Family Respiratory Disorders: No Hx Family Cancer: No Hx Family GI Disorders: No Hx Family Endocrine Disorder: Yes (DM) Hx Family Neuromuscular Disorders: No Hx Family Neurologic Disorders: Yes (Strokes) Hx Family HEENT Disorders: No Hx Family Autoimmune Disorders: No Medications and Allergies Budesonide/Formoterol 160/4.5 [Symbicort] 2 puff IH BIDR 04/21/15 [History] Levothyroxine [Synthroid] 100 mcg PO QAM 04/21/15 [History] Tiotropium [Spiriva] 18 mcg IH QAM 04/21/15 [History] metFORMIN [Glucophage] 1,000 mg PO BID 04/21/15 [History] Atorvastatin Calcium [Lipitor] 40 mg PO DAILY 02/04/16 [History] Montelukast [Singulair] 10 mg PO HS 02/04/16 [History] Oxygen 2 l NS AD PRN 03/17/16 [History] Insulin Glargine [Lantus] 80 unit SQ QPM 03/25/16 [History] Insulin Glargine [Lantus] 90 unit SQ QAM 03/25/16 [History] Albuterol Sulfate [Albuterol Inhaler] 2 puff IH Q4HR PRN 05/01/16 [History] Citalopram Hydrobromide [Citalopram HBr] 40 mg PO DAILY 05/01/16 [History] Raloxifene [Evista] 60 mg PO DAILY 05/01/16 [History] Aripiprazole [Abilify] 10 mg PO HS tablet 05/03/16 [Rx] Fenofibrate Nanocrystallized [Tricor] 145 mg PO DAILY 06/15/16 [History] Clopidogrel [Plavix] 75 mg PO QAM tablet 06/18/16 [Rx] Aspirin 81 mg PO DAILY #60 tab.chew 12/06/16 [Rx] Mag Hydrox/Al Hydrox/Simeth [Maalox] 30 ml PO Q6H PRN 30 Days oral.susp [Rx] Cholecalciferol (D-3) [Vitamin D] 1,000 unit PO DAILY 04/27/17 [History] Metoclopramide [Reglan] 10 mg PO TID 04/27/17 [History] Metoprolol XL (24 HR) Succ [Toprol Xl] 50 mg PO DAILY 04/27/17 [History] Insulin LISPRO [Humalog Kwikpen U-100] 2 - 10 unit SQ TID PRN 05/09/17 [History] clonazePAM [Klonopin] 1 mg PO TID PRN 05/28/17 [History] Magnesium Oxide [Mag-Ox] 400 mg PO DAILY #0 tab 05/29/17 [Rx] Bumetanide 2 mg PO BID 06/11/17 [History] Buspirone HCl [Buspar] 15 mg PO TID 06/11/17 [History] Gabapentin [Neurontin] 800 mg PO 5XD 06/11/17 [History] Omeprazole [PriLOSEC] 20 mg PO BIDAC 06/11/17 [History] Potassium Chloride 20 meq PO BID 06/11/17 [History] Tizanidine HCl [Zanaflex] 4 mg PO TID PRN 06/11/17 [History] amLODIPine [Norvasc] 2.5 mg PO DAILY 06/11/17 [History] metOLazone [Zaroxolyn] 2.5 mg PO DAILY PRN 06/11/17 [History] Isosorbide MONOnitrate (24 HR) [Imdur] 120 mg PO DAILY 06/26/17 [History] [place]-3 Fatty Acids/Fish Oil [Fish Oil 1,000 mg Softgel] 1 cap PO DAILY [History] Oxycodone HCl/Acetaminophen [Percocet 5-325 mg Tablet] 1 tab PO Q6H PRN [History] Nortriptyline [Pamelor] 25 mg PO HS 06/27/17 [History] DiphenhydraMINE [Benadryl] 25 mg PO HS 08/29/17 [History] 3 Allergy/AdvReac Type Severity Reaction Status Date / Time No Known Allergies Allergy Verified 08/06/17 10:52 All Systems Review: A 10-system review of systems was performed and is negative for pertinent findings except as documented above in the HPI. Physical Examination Vital Signs, Last 4 Hours Temp Pulse Resp BP Pulse Ox 08/29/17 10:12 97.7 F 84 16 117/69 97 08/29/17 09:39 92 16 107/66 95 General: Conversant, Other (Mild distress) HEENT: Atraumatic, Normocephaly, Mucus Membranes Moist Neck: No JVD, Normal carotid pulses Cardiac: Reg Rate and Rhythm, Normal S1 and S2, No Murmur Lungs: Normal Breath Sounds, Other (Expiratory wheezes present bilaterally in all lung padgett.) Neuro: Alert and responsive, No focal deficits noted Skin: No rashes noted on visualized skin Musculoskeletal: No Chest Wall Tenderness Results 08/29/17 06:49 08/29/17 06:49 Consult Discharge Plan - Plan Instructions: Chest Pain (DC), Chronic Hypertension (DC), Hyperlipidemia (DC) Referrals: NONE,PCP [Primary Care Provider] - (Please call your family doctor within 24 hours or the next business day to schedule follow-up appointment within 1 week) <Mario Anthony - Last Filed: 08/29/17 23:14> Date of Encounter: 08/29/17 Time of Encounter: 12:00 - Attending Attestation I examined this patient and my medical decision-making was reviewed with the Resident Physician. I agree with the documented findings, disposition and treatment plan as described except to the extent set forth below. IMP; 1. Chest pain: musculoskeletal, reproducible, relieved entirely with elevation of left breast with pt in supine postion, stress negative for inducible ischemia , well preserved left ventricular systolic at 60%, pt at low risk for hospital discharge. 2. Stable Class 1 angina, post [facility] 03/2017, reviewed cath films from that admission and 2014, unchanged, has widely patent stent sites in proximal RCA and LAD. 3. hypertension: controlled on current medications. Assessment and Plan Discussion w patient/family: The assessment and plan as outlined above was discussed with the patient and/or family members who expressed understanding and agreement. All questions were answered. Thank you for involving us in the care of your patient. Please call with any questions. History of Present Illness History of present illness: Ms. Lynch is a 61 year old female All Systems Review: A 10-system review of systems was performed and is negative for pertinent findings except as documented above in the HPI. Results 08/29/17 06:49 08/29/17 16:24 Lab Results 08/29/17 16:24 Creatinine 1.06
[2017-08-29] MEDS ORDERED: D5% in Water 1,000 ML IVC PRN (12:07)
[2017-08-29] MEDS ORDERED: Dextrose Gel 15 GM/37.5 ML TUBE PO PRN ×2 (12:07)
[2017-08-29] MEDS ORDERED: *HR* Dextrose 50 % in Water (Syg) 50 ML SYRINGE IVP PRN (12:07)
--- NOTE | 2017-08-29 12:10 | Internal Med History&Physical ---
<GabrielDarrellJessica J - Last Filed: 08/29/17 16:37> Date of Encounter: 08/29/17 Time of Encounter: 16:38 Assessment and Plan (1) Atypical chest pain Status: Chronic presented with chest pain that woke her from sleep. Reproducible on exam. Serial troponins negative, EKG without acute ST changes. 03/2017L HC with minimal nonobstructive CAD to RCA. Evaluated by cardiology who felt musculoskeletal as well and no further cardiac testing warranted at this time. (2) NIMO (acute kidney injury) Status: Acute Cr 1.3; baseline normal. Treated with IV fluids. Monitor repeat creatinine (3) Bipolar 1 disorder Status: Chronic per hx. Cont home medication regimen (4) COPD (chronic obstructive pulmonary disease) Status: Chronic per hx. no evidence of exacerbation. Continue home inhalers. Qualifiers: COPD type: emphysema Emphysema type: panlobular Qualified Code(s): J43.1 - Panlobular emphysema Internal Medicine - H&P: HPI Chief complaint: Chest pain Admitted From: Home Plans for Post Hospital Care: Home History of present illness: Ms. Lynch is a 61 year old female with past medical history bipolar, COPD, CAD and TIAs who presented to [facility] on 08/29/17 with complaints of chest pain. She was placed in observation status for cardiac evaluation. Information obtained from chart review and patient report. Patient reported left-sided chest pain and shortness of breath that awoke her from sleep at 3:00 this morning. She describes this left-sided chest pain as sharp in nature. It is worsened with deep inspiration. She has a heart score for therefore ED did not feel comfortable sending her home. Internal Medicine - H&P: Meds Budesonide/Formoterol 160/4.5 [Symbicort] 2 puff IH BIDR 04/21/15 [History] Levothyroxine [Synthroid] 100 mcg PO QAM 04/21/15 [History] Tiotropium [Spiriva] 18 mcg IH QAM 04/21/15 [History] metFORMIN [Glucophage] 1,000 mg PO BID 04/21/15 [History] Atorvastatin Calcium [Lipitor] 40 mg PO DAILY 02/04/16 [History] Montelukast [Singulair] 10 mg PO HS 02/04/16 [History] Oxygen 2 l NS AD PRN 03/17/16 [History] Insulin Glargine [Lantus] 80 unit SQ QPM 03/25/16 [History] Insulin Glargine [Lantus] 90 unit SQ QAM 03/25/16 [History] Albuterol Sulfate [Albuterol Inhaler] 2 puff IH Q4HR PRN 05/01/16 [History] Citalopram Hydrobromide [Citalopram HBr] 40 mg PO DAILY 05/01/16 [History] Raloxifene [Evista] 60 mg PO DAILY 05/01/16 [History] Aripiprazole [Abilify] 10 mg PO HS tablet 05/03/16 [Rx] Fenofibrate Nanocrystallized [Tricor] 145 mg PO DAILY 06/15/16 [History] Clopidogrel [Plavix] 75 mg PO QAM tablet 06/18/16 [Rx] Aspirin 81 mg PO DAILY #60 tab.chew 12/06/16 [Rx] Mag Hydrox/Al Hydrox/Simeth [Maalox] 30 ml PO Q6H PRN 30 Days oral.susp [Rx] Cholecalciferol (D-3) [Vitamin D] 1,000 unit PO DAILY 04/27/17 [History] Metoclopramide [Reglan] 10 mg PO TID 04/27/17 [History] Metoprolol XL (24 HR) Succ [Toprol Xl] 50 mg PO DAILY 04/27/17 [History] Insulin LISPRO [Humalog Kwikpen U-100] 2 - 10 unit SQ TID PRN 05/09/17 [History] clonazePAM [Klonopin] 1 mg PO DAILY PRN 05/28/17 [History] Magnesium Oxide [Mag-Ox] 400 mg PO DAILY #0 tab 05/29/17 [Rx] Bumetanide 2 mg PO BID 06/11/17 [History] Gabapentin [Neurontin] 800 mg PO 5XD 06/11/17 [History] Omeprazole [PriLOSEC] 20 mg PO BIDAC 06/11/17 [History] Potassium Chloride 20 meq PO BID 06/11/17 [History] Tizanidine HCl [Zanaflex] 4 mg PO TID PRN 06/11/17 [History] amLODIPine [Norvasc] 2.5 mg PO DAILY 06/11/17 [History] metOLazone [Zaroxolyn] 2.5 mg PO DAILY PRN 06/11/17 [History] Isosorbide MONOnitrate (24 HR) [Imdur] 120 mg PO DAILY 06/26/17 [History] [place]-3 Fatty Acids/Fish Oil [Fish Oil 1,000 mg Softgel] 1 cap PO DAILY [History] Nortriptyline [Pamelor] 25 mg PO HS 06/27/17 [History] DiphenhydraMINE [Benadryl] 25 mg PO HS 08/29/17 [History] Roflumilast [Daliresp] 500 mcg PO DAILY #30 tablet 09/09/17 [Rx] Buspirone HCl [Buspar] 20 mg PO BID 09/12/17 [History] Buprenorphine [Butrans] 1 patch TD QWEEK 09/19/17 [History] Tramadol HCl [Ultram] 50 mg PO TID PRN 09/19/17 [History] Azithromycin [Zithromax] 500 mg PO DAILY #2 tablet 09/22/17 [Rx] GuaiFENesin ER [Mucinex] 600 mg PO Q12H #6 tbbp.12hr 09/22/17 [Rx] predniSONE [PredniSONE] 40 mg PO DAILY #2 tablet 09/22/17 [Rx] 3 Allergy/AdvReac Type Severity Reaction Status Date / Time No Known Allergies Allergy Verified 09/19/17 09:56 All Systems PM: A 10-system review of systems was performed and is negative for pertinent findings except as documented above in the HPI. - Constitutional Constitutional: no chills, no fever(s), no night sweats - EENT Eyes: no change in vision, no discharge, no pain, no photophobia Ears: no ear discharge, no ear pain, no tinnitus Nose, mouth and throat: no dysphagia, no nasal discharge, no neck pain, no sore throat - Cardiovascular Cardiovascular ROS IM: chest pain, no diaphoresis, no dyspnea, no lightheadedness, no palpitations, no syncope - Respiratory Respiratory: no cough, no dyspnea, no wheezing, no excessive phlegm production - Gastrointestinal Gastrointestinal: no abdominal pain, no diarrhea, no hematemesis, no hematochezia, no melena, no nausea, no vomiting - Genitourinary Genitourinary: no change in urinary stream, no dysuria, no flank pain, no hematuria - Musculoskeletal Musculoskeletal ROS IM: no numbness, no tingling - Integumentary Integumentary IM: no rash, no unusual bruising - Neurological Neurological ROS: no confusion, no convulsions, no focal weakness, no numbness, no tingling, no tremor(s) - Hematologic/Lymphatic Hematologic/Lymphatic: no easy bruising - Constitutional Vitals: Temp Pulse Resp BP Pulse Ox 97.4 F L 86 16 135/77 90 08/29/17 15:29 08/29/17 15:29 08/29/17 15:29 08/29/17 15:29 08/29/17 15:29 General appearance: Present: A&O X 3, morbidly obese - Head Head exam: Present: atraumatic, normocephalic - Eye Eye exam: Present: PERRL, conjuntiva pink, sclera anicteric Pupils: Present: PERRL - Neck Neck exam general surgery: Present: supple, trachea midline. Absent: lymphadenopathy - Respiratory Respiratory exam: Present: CTAB. Absent: accessory muscle use, rales, rhonchi, wheezes - Cardiovascular Cardiovascular exam: Present: RRR, +S1, +S2. Absent: diastolic murmur, gallop, rubs, systolic murmur - GI/Abdominal GI/Abdominal exam: Present: normal bowel sounds, soft, no peritoneal signs. Absent: distended, tenderness - Extremities Exam Extremities exam: Present: warm, radial pulses palpable and symmetrical. Absent : calf tenderness, cyanotic, pedal edema - Neurological Exam Neurological exam: Present: CN II-XII intact, oriented X3, no focal deficits. Absent: pronater drift, facial droop, speech deficit - Skin Skin exam: Present: dry, intact Internal Med - H&P Results - Labs CBC & Chem 7: 08/29/17 06:49 08/29/17 06:49 <Helen Shepherd Z - Last Filed: 09/23/17 11:04> Date of Encounter: 09/23/17 Internal Medicine - H&P: HPI History of present illness: Ms. Lynch is a 61 year old female Past Med Surg Social Fam HX - Past Medical History Medical history: arthritis, CHF, COPD, coronary artery disease, diabetes, GERD, hyperlipidemia, hypertension, osteoporosis, renal disease, thyroid disease, TIA , venous stasis, other Psychiatric history: anxiety, bipolar, depression, panic disorder - Past Surgical History Surgical History: angioplasty/stent, , cholecystectomy, hysterectomy - Social History Smoking Status: Former smoker Smokeless Tobacco Status: No Alcohol use: none Drug use: none - Family History Brother Adopted: No Family Member Ethnicity: Non- Living Status: Hx Family Cardiac Disorders: Yes Father Adopted: No Family Member Ethnicity: Non- Living Status: Hx Family Cardiac Disorders: Yes (HD, HLD, HTN, NM, Triple Bypass) Hx Family Neurologic Disorders: Yes (Dementia) Mother Adopted: No Family Member Ethnicity: Non- Living Status: Hx Family Cardiac Disorders: Yes (NM, HTN, HLD, Strokes x5) Hx Family Respiratory Disorders: No Hx Family Cancer: No Hx Family GI Disorders: No Hx Family Endocrine Disorder: Yes (DM) Hx Family Neuromuscular Disorders: No Hx Family Neurologic Disorders: Yes (Strokes) Hx Family HEENT Disorders: No Hx Family Autoimmune Disorders: No All Systems PM: A 10-system review of systems was performed and is negative for pertinent findings except as documented above in the HPI. - Constitutional Vitals: Temp Pulse Resp BP Pulse Ox 98.5 F 86 20 107/70 87 08/29/17 12:03 08/29/17 12:03 08/29/17 12:03 08/29/17 12:03 08/29/17 12:03 Internal Med - H&P Results - Labs CBC & Chem 7: 08/29/17 06:49 08/29/17 16:24 - Attending Attestation I personally and independently interviewed and examined the patient, and I reviewed the patient's medical records. I am in agreement with SAFETY TECH assessment and proposed treatment plan. I discussed my findings and recommendation with the patient and answer his questions. The patient's medical records were edited to accurately reflect this encounter.
[2017-08-29] MEDS ORDERED: *HR* OxyCODONE/APAP 5/325 TABLET PO PRN (12:16)
[2017-08-29] MEDS ORDERED: metOLazone 2.5 MG TABLET PO PRN (12:16)
[2017-08-29] MEDS ORDERED: clonazePAM 1 MG TABLET PO PRN (12:16)
[2017-08-29] MEDS ORDERED: tiZANidine 4 MG TABLET PO PRN (12:16)
[2017-08-29] MEDS ORDERED: Mag Hydrox/Al Hydrox/Simeth 30 ML UDC PO PRN (12:16)
[2017-08-29] MEDS ORDERED: Insulin LISPRO 300 UNITS/3 ML VIAL SQ SCH ×2 (12:21→18:00)
--- NOTE | 2017-08-29 13:32 | Discharge Summary ---
Date of Encounter: 09/08/17 Time of Encounter: 13:28 - Discharge Diagnosis (1) Chest pain Priority: Primary Status: Acute Comments: presented with chest pain that woke her from sleep. Reproducible on exam. Serial troponins negative, EKG without acute ST changes. 03/2017L HC with minimal nonobstructive CAD to RCA. Evaluated by cardiology who felt musculoskeletal as well and no further cardiac testing warranted at this time. Qualifiers: Chest pain type: unspecified Qualified Code(s): R07.9 - Chest pain, unspecified (2) NIMO (acute kidney injury) Priority: Primary Status: Resolved Comments: Cr 1.3; baseline normal. Treated with IV fluids. Repeat Cr normalized (3) Bipolar 1 disorder Priority: Secondary Status: Chronic Comments: per hx. Cont home medication regimen (4) COPD (chronic obstructive pulmonary disease) Priority: Secondary Status: Chronic Comments: per hx. no evidence of exacerbation. Continue home inhalers Qualifiers: COPD type: emphysema Emphysema type: panlobular Qualified Code(s): J43.1 - Panlobular emphysema - Discharge Medications Home Medications: Budesonide/Formoterol 160/4.5 [Symbicort] 2 puff IH BIDR 04/21/15 [History] Levothyroxine [Synthroid] 100 mcg PO QAM 04/21/15 [History] Tiotropium [Spiriva] 18 mcg IH QAM 04/21/15 [History] metFORMIN [Glucophage] 1,000 mg PO BID 04/21/15 [History] Atorvastatin Calcium [Lipitor] 40 mg PO DAILY 02/04/16 [History] Montelukast [Singulair] 10 mg PO HS 02/04/16 [History] Oxygen 2 l NS AD PRN 03/17/16 [History] Insulin Glargine [Lantus] 80 unit SQ QPM 03/25/16 [History] Insulin Glargine [Lantus] 90 unit SQ QAM 03/25/16 [History] Albuterol Sulfate [Albuterol Inhaler] 2 puff IH Q4HR PRN 05/01/16 [History] Citalopram Hydrobromide [Citalopram HBr] 40 mg PO DAILY 05/01/16 [History] Raloxifene [Evista] 60 mg PO DAILY 05/01/16 [History] Aripiprazole [Abilify] 10 mg PO HS tablet 05/03/16 [Rx] Fenofibrate Nanocrystallized [Tricor] 145 mg PO DAILY 06/15/16 [History] Clopidogrel [Plavix] 75 mg PO QAM tablet 06/18/16 [Rx] Aspirin 81 mg PO DAILY #60 tab.chew 12/06/16 [Rx] Mag Hydrox/Al Hydrox/Simeth [Maalox] 30 ml PO Q6H PRN 30 Days oral.susp [Rx] Cholecalciferol (D-3) [Vitamin D] 1,000 unit PO DAILY 04/27/17 [History] Metoclopramide [Reglan] 10 mg PO TID 04/27/17 [History] Metoprolol XL (24 HR) Succ [Toprol Xl] 50 mg PO DAILY 04/27/17 [History] Insulin LISPRO [Humalog Kwikpen U-100] 2 - 10 unit SQ TID PRN 05/09/17 [History] clonazePAM [Klonopin] 1 mg PO DAILY PRN 05/28/17 [History] Magnesium Oxide [Mag-Ox] 400 mg PO DAILY #0 tab 05/29/17 [Rx] Bumetanide 2 mg PO BID 06/11/17 [History] Buspirone HCl [Buspar] 15 mg PO TID 06/11/17 [History] Gabapentin [Neurontin] 800 mg PO 5XD 06/11/17 [History] Omeprazole [PriLOSEC] 20 mg PO BIDAC 06/11/17 [History] Potassium Chloride 20 meq PO BID 06/11/17 [History] Tizanidine HCl [Zanaflex] 4 mg PO TID PRN 06/11/17 [History] amLODIPine [Norvasc] 2.5 mg PO DAILY 06/11/17 [History] metOLazone [Zaroxolyn] 2.5 mg PO DAILY PRN 06/11/17 [History] Isosorbide MONOnitrate (24 HR) [Imdur] 120 mg PO DAILY 06/26/17 [History] [place]-3 Fatty Acids/Fish Oil [Fish Oil 1,000 mg Softgel] 1 cap PO DAILY [History] Oxycodone HCl/Acetaminophen [Percocet 5-325 mg Tablet] 1 tab PO Q6H PRN [History] Nortriptyline [Pamelor] 25 mg PO HS 06/27/17 [History] DiphenhydraMINE [Benadryl] 25 mg PO HS 08/29/17 [History] Allergies/Adverse Reactions: 3 Allergy/AdvReac Type Severity Reaction Status Date / Time No Known Allergies Allergy Verified 09/06/17 05:43 Date of admission: 08/29/17 09:11 Primary care physician: PCP NONE Consults: 08/29/17 09:24 Consult to Cardiology [CONS] Stat Comment: Consulting Provider: Cardiology Pat Reason for Consult: Chest pain, ACS rule out Time Notified: 09:24 Call Completed: Yes Discharging clinician: Jessica Rios Anticipated date of discharge: 08/29/17 - Patient Status Disposition: Home, Self-Care Condition: Good Functional capacity at discharge: independent ambulation Overall status at discharge: patient is back to baseline - Discharge Instructions Instructions: Chest Pain (DC), Chronic Hypertension (DC), Hyperlipidemia (DC) Follow Up With: NONE,PCP [Primary Care Provider] - (Please call your family doctor within 24 hours or the next business day to schedule follow-up appointment within 1 week) - Diet and Activity Activity: increase activity as tolerated Diet: advance to your usual diet Interval History: Please see 08/29/2017 progress note for details. In summary, patient present with chest pain that was reproducible on exam. She was evaluated by Cardiology who did not feel CP was cardiac in etiology. Her Cr was fund to be elevated and she was treated with IV fluids. Discussed case with Dr. Shepherd and it was recommended that patient stay over night for continued observation however patient and declined. Hospital course: See assessment and plan for hospital course - Time Spent with Patient Total time spent providing and/or coordinating discharge services: - Constitutional Vitals: Temp Pulse Resp BP Pulse Ox 98.5 F 86 20 107/70 87 08/29/17 12:03 08/29/17 12:03 08/29/17 12:03 08/29/17 12:03 08/29/17 12:03 General appearance: Present: A&O X 3, morbidly obese - Head Head exam: Present: atraumatic, normocephalic - Eye Eye exam: Present: PERRL, conjuntiva pink, sclera anicteric Pupils: Present: PERRL - Neck Neck exam general surgery: Present: supple, trachea midline. Absent: lymphadenopathy - Respiratory Respiratory exam: Present: chest wall tenderness, CTAB. Absent: accessory muscle use, rales, rhonchi, wheezes - Cardiovascular Cardiovascular exam: Present: RRR, +S1, +S2. Absent: diastolic murmur, gallop, rubs, systolic murmur - GI/Abdominal GI/Abdominal exam: Present: normal bowel sounds, soft, no peritoneal signs. Absent: distended, tenderness - Extremities Exam Extremities exam: Present: warm, radial pulses palpable and symmetrical. Absent : calf tenderness, cyanotic, pedal edema - Neurological Exam Neurological exam: Present: CN II-XII intact, oriented X3, no focal deficits. Absent: pronater drift, facial droop, speech deficit - Skin Skin exam: Present: dry, intact
[2017-08-29] MEDS ORDERED: 0.9 % Sodium Chloride 1,000 ML IVC ONE (13:44)
[2017-08-29 15:31] VITALS: BP 135/77
[2017-08-29] MEDS ORDERED: Gabapentin 400 MG CAPSULE PO SCH (16:00)
[2017-08-29 16:59] LABS: eGFR For African Americans > 60 (> 60); eGFR For Non-African Americans 53 (> 60)
[2017-08-29] MEDS ORDERED: Insulin DETEMIR 100 UNIT/ML X5UNITS SQ SCH (18:00)
[2017-08-29] MEDS ORDERED: ARIPiprazole 10 MG TABLET PO SCH (21:00)
[2017-08-29] MEDS ORDERED: Bumetanide 1 MG TABLET PO SCH (21:00)
[2017-08-29] MEDS ORDERED: *HR* Metformin 500 MG TABLET PO SCH (21:00)
[2017-08-29] MEDS ORDERED: Budesonide/Formoterol 160/4.5 MDI IH SCH (22:00)
[2017-08-30] MEDS ORDERED: FISH OIL PO SCH (09:00)
[2017-08-30] MEDS ORDERED: OMEGA PO SCH (09:00)
[2017-08-30] MEDS ORDERED: Cholecalciferol (D-3) 1,000 UNIT TABLET PO SCH (09:00)
[2017-08-30] MEDS ORDERED: Fenofibrate 54 MG TABLET PO SCH (09:00)
[2017-08-30] MEDS ORDERED: amLODIPine 5 MG TABLET PO SCH (09:00)
[2017-08-30] MEDS ORDERED: Tiotropium 18 MCG inhalation IH SCH (09:00)
[2017-08-30] MEDS ORDERED: Isosorbide MONOnitrate (24 HR) 60 MG TAB.ER.24H PO SCH (09:00)
[2017-08-30] MEDS ORDERED: Aspirin 81 MG TAB.CHEW PO SCH (09:00)
[2017-08-30] MEDS ORDERED: Magnesium Oxide 400 MG TABLET PO SCH (09:00)
[2017-08-30] MEDS ORDERED: Metoprolol XL (24 HR) Succ 50 MG TAB.ER.24H PO SCH (09:00)
[2017-08-30] MEDS ORDERED: Insulin DETEMIR 100 UNIT/ML per UNIT SQ SCH (09:00)
[2017-08-30] MEDS ORDERED: FATTY ACIDS PO SCH (09:00)
--- NOTE | 2017-08-30 16:42 | Electrocardiograph Report ---
[address] [place] [address] Test Date: 2017-08-29 Pat Name: Claire Lynch Department: 102 Room: 3B Gender: F [employer]: Td : 1955 Requested By: Son Norman Order Number: [id number] Reading MD: Tristian George DO Measurements Intervals [place] Rate: 96 P: 65 KS: 165 QRS: 5 QRSD: 93 T: 22 QT: 383 QTc: 437 Interpretive Statements SINUS RHYTHM LOW QRS VOLTAGE POSSIBLE ANTERIOR MYOCARDIAL INFARCTION, OF INDETERMINATE AGE Electronically Signed On 08-30-2017 16:41:20 EST by Tristian George DO
== END 2017-08-29 17:32 | disposition home or self-care (01) ==
LOC: EMEROO 06:31 → 3BNU 06:31
PROVIDERS: ADMIT Internal Medicine Nephrology; ATTEND Registered Nurse

== ENCOUNTER 2017-09-06 05:41 | Inpatient (IN) ==
[2017-09-06] MEDS ORDERED: Aspirin 81 MG TAB.CHEW PO ONE (05:49)
[2017-09-06] MEDS ORDERED: Ondansetron 4 MG/2 ML VIAL IVP ONE (05:49)
[2017-09-06] MEDS ORDERED: Nitroglycerin 0.4 MG TAB.SUBL SL ONE (05:49)
--- NOTE | 2017-09-06 05:58 | Emergency Department Note ---
Disposition Clinical Impression: Hyperglycemia, Hypokalemia, Pulmonary nodule Chest pain Qualifiers: Chest pain type: unspecified Qualified Code(s): R07.9 - Chest pain, unspecified Disposition: Admitted As Inpatient Condition: Fair Time of Disposition: 01:46 General Adult HPI - General Chief complaint: ED Chest Pain Stated complaint: CP/SOB Time Seen by Provider: 09/06/17 05:45 Source: patient, EMS Mode of arrival: EMS Limitations: no limitations Nursing Notes Reviewed: Yes Vital Signs Reviewed: Yes - History of Present Illness HPI Narrative: Patient is a 61-year-old female with past medical history of CHF, COPD, CAD, 4 cardiac stents, diabetes, hypertension, TIA, venous stasis presenting to his primary complaint of shortness of breath and chest pain that started suddenly at 2:00 AM this morning. The patient describes the pain as left-sided and stabbing radiating into her arm and her neck associated with nausea and exertion. She states that this pain is the same pain that was occurring when she was discharged from the hospital back on 08/29/2017 in which she was told it was musculoskeletal pain and was seen by a architecture faculty member and patient. The patient states that she had an episode of this chest pain yesterday as well states that she just takes aspirin and nitroglycerin for the pain, however the shortness of breath is new. The patient is also complaining of bilateral lower extremity edema and erythema and states that her dog scratch her legs. Pain Scale: 8 - Related Data Home Medications Medication Instructions Recorded Confirmed Budesonide/Formoterol 160/4.5 2 puff IH BIDR 04/21/15 09/06/17 [Symbicort] Levothyroxine [Synthroid] 100 mcg PO QAM 04/21/15 09/06/17 Tiotropium [Spiriva] 18 mcg IH QAM 04/21/15 09/06/17 metFORMIN [Glucophage] 1,000 mg PO BID 04/21/15 09/06/17 Atorvastatin Calcium [Lipitor] 40 mg PO DAILY 02/04/16 09/06/17 Montelukast [Singulair] 10 mg PO HS 02/04/16 09/06/17 Oxygen 2 l NS AD PRN 03/17/16 09/06/17 Insulin Glargine [Lantus] 80 unit SQ QPM 03/25/16 09/06/17 Insulin Glargine [Lantus] 90 unit SQ QAM 03/25/16 09/06/17 Albuterol Sulfate [Albuterol 2 puff IH Q4HR PRN 05/01/16 09/06/17 Inhaler] Citalopram Hydrobromide 40 mg PO DAILY 05/01/16 09/06/17 [Citalopram HBr] Raloxifene [Evista] 60 mg PO DAILY 05/01/16 09/06/17 Fenofibrate Nanocrystallized 145 mg PO DAILY 06/15/16 09/06/17 [Tricor] Cholecalciferol (D-3) [Vitamin D] 1,000 unit PO DAILY 04/27/17 09/06/17 Metoclopramide [Reglan] 10 mg PO TID 04/27/17 09/06/17 Metoprolol XL (24 HR) Succ [Toprol 50 mg PO DAILY 04/27/17 09/06/17 Xl] Insulin LISPRO [Humalog Kwikpen 2 - 10 unit SQ TID PRN 05/09/17 09/06/17 U-100] clonazePAM [Klonopin] 1 mg PO DAILY PRN 05/28/17 09/06/17 Bumetanide 2 mg PO BID 06/11/17 09/06/17 Buspirone HCl [Buspar] 15 mg PO TID 06/11/17 09/06/17 Gabapentin [Neurontin] 800 mg PO 5XD 06/11/17 09/06/17 Omeprazole [PriLOSEC] 20 mg PO BIDAC 06/11/17 09/06/17 Potassium Chloride 20 meq PO BID 06/11/17 09/06/17 Tizanidine HCl [Zanaflex] 4 mg PO TID PRN 06/11/17 09/06/17 amLODIPine [Norvasc] 2.5 mg PO DAILY 06/11/17 09/06/17 metOLazone [Zaroxolyn] 2.5 mg PO DAILY PRN 06/11/17 09/06/17 Isosorbide MONOnitrate (24 HR) 120 mg PO DAILY 06/26/17 09/06/17 [Imdur] [place]-3 Fatty Acids/Fish Oil [Fish 1 cap PO DAILY 06/26/17 09/06/17 Oil 1,000 mg Softgel] Oxycodone HCl/Acetaminophen 1 tab PO Q6H PRN 06/26/17 09/06/17 [Percocet 5-325 mg Tablet] Nortriptyline [Pamelor] 25 mg PO HS 06/27/17 09/06/17 DiphenhydraMINE [Benadryl] 25 mg PO HS 08/29/17 09/06/17 Previous Rx's Medication Instructions Recorded Aripiprazole [Abilify] 10 mg PO HS tablet 05/03/16 Clopidogrel [Plavix] 75 mg PO QAM tablet 06/18/16 Aspirin 81 mg PO DAILY #60 tab.chew 12/06/16 Mag Hydrox/Al Hydrox/Simeth 30 ml PO Q6H PRN 30 Days oral.susp 03/26/17 [Maalox] Magnesium Oxide [Mag-Ox] 400 mg PO DAILY #0 tab 05/29/17 Allergies Allergy/AdvReac Type Severity Reaction Status Date / Time No Known Allergies Allergy Verified 09/06/17 05:43 Past Medical History - Past Medical History Medical history: Reports: arthritis, CHF, COPD, coronary artery disease, diabetes, GERD, hyperlipidemia, hypertension, osteoporosis, renal disease, thyroid disease, TIA, venous stasis, other Surgical history: Reports: angioplasty/stent, , cholecystectomy, hysterectomy Psychiatric history: Reports: anxiety, bipolar, depression, panic disorder [employer] history: Reports: bilateral tubal ligation - Social History Smoking Status: Former smoker Smokeless Tobacco Status: No Alcohol use: Reports: none Drug use: Reports: none Physical Exam - General Limitations: no limitations General appearance: alert, in no apparent distress - Head Head exam: atraumatic, normocephalic, normal inspection - Eye Eye exam: Present: normal appearance, PERRL, EOMI - ENT ENT exam: normal exam, normal oropharynx, mucous membranes dry - Neck Neck exam: Present: normal inspection, full ROM, trachea midline. Absent: tenderness - Chest Chest inspection: Present: normal inspection, symmetric chest wall rise. Absent : tenderness - Respiratory Respiratory exam: Absent: respiratory distress, wheezes - Expanded Respiratory Exam Location: rales: Lower, Right, Left - Cardiovascular Cardiovascular exam: Present: normal rhythm, tachycardia, normal heart sounds, + S1, +S2 - Abdominal Exam Abdominal exam: Present: soft, Non-Tender, normal bowel sounds - Expanded Upper Extremity Exam Shoulder exam: Present: normal inspection Arm exam: Present: normal inspection Elbow exam: Present: normal inspection Forearm/Wrist exam: Present: normal inspection Hand exam: Present: normal inspection - Expanded Lower Extremity Exam Lower leg exam: Present: full ROM, tenderness, erythema, other (Patient has bilateral 1+ pitting lower extremity edema. She also has chronic venous stasis changes cause her lower legs to appear erythematous and ends at the sock line.) . Absent: ecchymosis, deformity, crepitus Neurovascular/Tendon exam: Present: normal capillary refill. Absent: pulse deficit - Back Exam Back exam: Present: normal inspection, full ROM. Absent: tenderness, CVA tenderness (R), CVA tenderness (L) - Neurological Exam Neurological exam: Present: alert, oriented X3 - Psychiatric Psychiatric exam: Present: normal affect, normal mood - Skin Skin exam: Present: warm, dry, intact, normal color Course Course Narrative: According to prior records the patient's recent admission a little over one week ago the patient was seen by architecture faculty member Dr. Anthony she has a history of 2 MIs in the past and she was seen for similar chest pain that she is presenting with this morning. Her EKG was unchanged from her prior EKG, chest x-ray at that time showed mild pulmonary vascular congestion, she had a stress test done in 11/23/2016 which was negative, carotid duplex on May 112016 was unremarkable and she had LHC with stent placement on April 072016. This patient is from a cardiac workup of the patient will also order CT of her chest to rule out any pulmonary embolism. Due to the patient's bilateral lower extremity swelling and erythema at this time we will ordered blood cultures and start the patient on empiric antibiotics. Vital Signs Temperature 98.1 F 09/06/17 05:43 Pulse Rate 108 09/06/17 05:43 Respiratory Rate 22 09/06/17 05:43 Blood Pressure 154/75 09/06/17 05:43 O2 Sat by Pulse Oximetry 93 09/06/17 05:43 Temperature 98.1 F 09/07/17 00:14 Pulse Rate 94 09/07/17 00:14 Respiratory Rate 21 09/07/17 00:14 Blood Pressure 121/60 09/07/17 00:14 O2 Sat by Pulse Oximetry 91 09/07/17 00:14 Oxygen Delivery Oxygen Delivery Nasal Cannula Medical Decision Making - Medical Records Medical records reviewed: Yes I reviewed the patient's medical records. - Lab Data Lab results reviewed: Yes I reviewed the patient's lab results. Result diagrams: 09/07/17 00:40 09/07/17 00:40 Lab Results 09/06/17 09/06/17 09/06/17 Range/Units 06:33 06:33 06:33 WBC 9.4 (4.3-11.1) K/mcL RBC 4.05 (3.82-4.97) M/mcL Hgb 10.3 L (11.5-15.4) g/dL Hct 33.7 L (35.3-44.9) % MCV 83.2 (83.0-100.0) fL MCH 25.4 L (28.0-33.3) pg MCHC 30.6 L (31.6-35.5) g/dL RDW 16.0 H (11.5-14.5) % Plt Count 248 (140-400) K/mcL MPV 11.8 (9.4-12.4) fL Immature Gran % 1.2 (0-4) % Seg Neutrophils % 62.7 % Lymphocytes % 29.0 % Monocytes % 4.5 % Eosinophils % 2.1 % Basophils % 0.5 % Neutrophils # 5.9 (1.6-8.9) K/mcL Lymphocytes # 2.7 (0.6-4.6) K/mcL Monocytes # 0.4 (0.0-1.3) K/mcL Eosinophils # 0.2 (0.0-0.6) K/mcL Basophils # 0.1 (0.0-0.2) K/mcL Nucleated RBCs/100 WBC 0.3 H (0) /100 WBC PT 9.6 (9.4-12.1) Seconds INR 0.9 APTT 26.4 (26.0-36.0) Seconds Sodium (136-145) mEq/L Potassium (3.5-5.1) mEq/L Chloride (98-107) mEq/L Carbon Dioxide (23-29) mEq/L BUN (6-20) mg/dL Creatinine (0.60-1.20) mg/dL Est GFR ( Amer) (> 60) Est GFR (Non-Af Amer) (> 60) BUN/Creatinine Ratio (6-26) Glucose (70-105) mg/dL Calculated Osmolality (280-300) Calcium (8.6-10.3) mg/dL Magnesium (1.6-2.6) mg/dL Troponin I (< 0.04) ng/mL B-Natriuretic Peptide 42 (Less than 100) pg/mL Urine Color (Yellow) Urine Clarity (Clear) Urine pH (5.0-8.0) pH Units Ur Specific [place] (1.010-1.025) Urine Protein (Neg-Trace) mg/dL Urine Glucose (UA) (Normal) mg/dL Urine Ketones (Negative) mg/dL Urine Blood (Negative) Urine Nitrite (Negative) Urine Bilirubin (Negative) Urine Urobilinogen (Normal) mg/dL Ur Leukocyte Esterase (Negative) 09/06/17 09/06/17 09/06/17 Range/Units 06:33 06:33 12:11 WBC (4.3-11.1) K/mcL RBC (3.82-4.97) M/mcL Hgb (11.5-15.4) g/dL Hct (35.3-44.9) % MCV (83.0-100.0) fL MCH (28.0-33.3) pg MCHC (31.6-35.5) g/dL RDW (11.5-14.5) % Plt Count (140-400) K/mcL MPV (9.4-12.4) fL Immature Gran % (0-4) % Seg Neutrophils % % Lymphocytes % % Monocytes % % Eosinophils % % Basophils % % Neutrophils # (1.6-8.9) K/mcL Lymphocytes # (0.6-4.6) K/mcL Monocytes # (0.0-1.3) K/mcL Eosinophils # (0.0-0.6) K/mcL Basophils # (0.0-0.2) K/mcL Nucleated RBCs/100 WBC (0) /100 WBC PT (9.4-12.1) Seconds INR APTT (26.0-36.0) Seconds Sodium 135 L (136-145) mEq/L Potassium 3.0 L (3.5-5.1) mEq/L Chloride 91 L (98-107) mEq/L Carbon Dioxide 32 H (23-29) mEq/L BUN 37 H (6-20) mg/dL Creatinine 1.16 (0.60-1.20) mg/dL Est GFR ( Amer) 58 L (> 60) Est GFR (Non-Af Amer) 48 L (> 60) BUN/Creatinine Ratio 32 H (6-26) Glucose 457 H (70-105) mg/dL Calculated Osmolality 309 H (280-300) Calcium 9.6 (8.6-10.3) mg/dL Magnesium 1.6 (1.6-2.6) mg/dL Troponin I < 0.03 (< 0.04) ng/mL B-Natriuretic Peptide (Less than 100) pg/mL Urine Color Yellow (Yellow) Urine Clarity Clear (Clear) Urine pH 6.5 (5.0-8.0) pH Units Ur Specific [place] 1.023 (1.010-1.025) Urine Protein Negative (Neg-Trace) mg/dL Urine Glucose (UA) >=1000 H (Normal) mg/dL Urine Ketones Negative (Negative) mg/dL Urine Blood Negative (Negative) Urine Nitrite Negative (Negative) Urine Bilirubin Negative (Negative) Urine Urobilinogen Normal (Normal) mg/dL Ur Leukocyte Esterase Negative (Negative) 09/06/17 09/06/17 Range/Units 12:39 12:39 WBC (4.3-11.1) K/mcL RBC (3.82-4.97) M/mcL Hgb (11.5-15.4) g/dL Hct (35.3-44.9) % MCV (83.0-100.0) fL MCH (28.0-33.3) pg MCHC (31.6-35.5) g/dL RDW (11.5-14.5) % Plt Count (140-400) K/mcL MPV (9.4-12.4) fL Immature Gran % (0-4) % Seg Neutrophils % % Lymphocytes % % Monocytes % % Eosinophils % % Basophils % % Neutrophils # (1.6-8.9) K/mcL Lymphocytes # (0.6-4.6) K/mcL Monocytes # (0.0-1.3) K/mcL Eosinophils # (0.0-0.6) K/mcL Basophils # (0.0-0.2) K/mcL Nucleated RBCs/100 WBC (0) /100 WBC PT (9.4-12.1) Seconds INR APTT 25.6 L (26.0-36.0) Seconds Sodium (136-145) mEq/L Potassium (3.5-5.1) mEq/L Chloride (98-107) mEq/L Carbon Dioxide (23-29) mEq/L BUN (6-20) mg/dL Creatinine (0.60-1.20) mg/dL Est GFR ( Amer) (> 60) Est GFR (Non-Af Amer) (> 60) BUN/Creatinine Ratio (6-26) Glucose (70-105) mg/dL Calculated Osmolality (280-300) Calcium (8.6-10.3) mg/dL Magnesium (1.6-2.6) mg/dL Troponin I < 0.03 (< 0.04) ng/mL B-Natriuretic Peptide (Less than 100) pg/mL Urine Color (Yellow) Urine Clarity (Clear) Urine pH (5.0-8.0) pH Units Ur Specific [place] (1.010-1.025) Urine Protein (Neg-Trace) mg/dL Urine Glucose (UA) (Normal) mg/dL Urine Ketones (Negative) mg/dL Urine Blood (Negative) Urine Nitrite (Negative) Urine Bilirubin (Negative) Urine Urobilinogen (Normal) mg/dL Ur Leukocyte Esterase (Negative) - Radiology Data Radiology results reviewed: Yes I reviewed the patient's radiology results. Chest X-Ray 09/06/17 05:49 IMPRESSION: No acute disease. D/ / Burt Crandall MD / Burt Crandall MD Interpreting Provider: Burt Crandall MD - EKG Data EKG #1 EKG attestation: Yes I reviewed and interpreted this EKG. EKG results narrative: EKG done at 5:45 shows sinus tachycardia at a rate of 108. Normal axis. AL is 172, QRS is 81, QT is 345 and QTc is 409 and these are within normal limits. No ST elevation, depression or Q waves when compared to prior EKG done on 2017. Jazmine - Jazmine Situation: Demographics, MOA Background: Presenting Complaint, Relevant PMH, Meds, & Allergies Assessment: Vital Signs, Course and respsone to treatment, Exam Concerns, Patient/Family Expectation, Pertinant Lab Results, Outstanding Labs Recommendation: Barrier(s) to disposition, Recommendation based on pending studies, treatments, or consults Jazmine Report Given to: Dr. Hemanth Lucero Repor Time: 07:30 Attestation Statement - Attestation Attestation: I, Bobby Wahl DO, examined this patient [id number] and my medical decision-making was reviewed with Dr. Otis Olmstead, Resident Physician. I agree with the documented findings, disposition and treatment plan as described except to the extent set forth below. Please see my progress notes for details. 61-year-old female presents to emergency room with chief complaint of shortness of breath and chest pain. Patient has been seen and evaluated multiple times for this. She has multiple medical issues including coronary artery disease with previous stenting. Patient denies any recent trauma or injury. Denies any fevers or chills nausea vomiting diarrhea. Denies chest pain shortness of breath headache or vision change prior to the event started 2 AM this morning. Initial EKG shows sinus rhythm that is stable in comparison to previous EKGs. Chest x-ray labs include a CBC chemistry BNP and troponin were resulted. CT angiography will be added on to the workup after the imaging modality is completed. Patient's vital signs did show tachycardia on initial presentation. Patient is concerning for pulmonary versus cardiac related sources symptoms at this time. She also swelling and redness of the bilateral lower extremities it appears to be secondary to venous stasis. Patient denies any trauma, illness , exposure at this time. We will continue to monitor his treatment course is completed. Physical exam does show morbidly obese female who does not appear in any physical or respiratory distress. Pulse ox is otherwise normal. Head is atraumatic oropharynx is patent trachea is midline.. No stridor no trismus. Lungs are clear heart is regular. Abdomen is soft nontender nondistended with no guarding or rigidity no peritoneal symptoms. Patient does have bilateral pitting edema redness to the lower extremities that is painful to palpation at this time. There is no signs of skin to initiation sloughing or discharge to skilled services at this point. Patient will most likely need admission for further evaluation and management. Otherwise we will continue to monitor and treat symptoms. Nitroglycerin as well as breathing treatments to be given here in the emergency room. She detailed documentation of the physical exam, medical intervention, medical decision-making and disposition and the resident physician's note. Currently no critical care of this patient' s treatment course. Patient signed out to the daytime position. No other concerns or issues noted at this time. Completion course of care will be completed at that time.
[2017-09-06 06:53] LABS: Basophils # 0.1 K/mcL (0.0-0.2); Basophils % 0.5 %; Eosinophils # 0.2 K/mcL (0.0-0.6); Eosinophils % 2.1 %; Hematocrit 33.7 % (35.3-44.9); Hemoglobin 10.3 g/dL (11.5-15.4); Immature Granulocytes % 1.2 % (0-4); Lymphocytes # 2.7 K/mcL (0.6-4.6); Mean Corpuscular HGB Conc 30.6 g/dL (31.6-35.5); Mean Corpuscular Hemoglobin 25.4 pg (28.0-33.3); Mean Corpuscular Volume 83.2 fL (83.0-100.0); Mean Platelet Volume 11.8 fL (9.4-12.4); Monocytes # 0.4 K/mcL (0.0-1.3); Monocytes % 4.5 %; Neutrophils # 5.9 K/mcL (1.6-8.9); Nucleated Red Blood Cells 0.3 /100 WBC (0); Platelet Count 248 K/mcL (140-400); Red Blood Count 4.05 M/mcL (3.82-4.97); Segmented Neutrophils % 62.7 %
[2017-09-06 06:55] LABS: INR 0.9; Prothrombin Time 9.6 Seconds (9.4-12.1)
[2017-09-06 06:57] LABS: Activated Partial Thrombo Time 26.4 Seconds (26.0-36.0)
[2017-09-06 07:38] LABS: Calcium 9.6 mg/dL (8.6-10.3)
[2017-09-06 08:10] LABS: Magnesium 1.6 mg/dL (1.6-2.6)
--- NOTE | 2017-09-06 08:15 | Emergency Department Note ---
Disposition Clinical Impression: Hyperglycemia, Hypokalemia, Pulmonary nodule Chest pain Qualifiers: Chest pain type: unspecified Qualified Code(s): R07.9 - Chest pain, unspecified Disposition: Admitted As Inpatient Condition: Fair Chest Pain HPI - General Chief Complaint: ED Chest Pain Stated Complaint: CP/SOB Time Seen by Provider: 09/06/17 05:45 Source: patient, EMS Mode of arrival: EMS Limitations: no limitations - History of Present Illness HPI Narrative: Please see prior provider documentation for complete history and physical. Severity scale (1-10): 8 - Related Data Home Medications Medication Instructions Recorded Confirmed Budesonide/Formoterol 160/4.5 2 puff IH BIDR 04/21/15 09/06/17 [Symbicort] Levothyroxine [Synthroid] 100 mcg PO QAM 04/21/15 09/06/17 Tiotropium [Spiriva] 18 mcg IH QAM 04/21/15 09/06/17 metFORMIN [Glucophage] 1,000 mg PO BID 04/21/15 09/06/17 Atorvastatin Calcium [Lipitor] 40 mg PO DAILY 02/04/16 09/06/17 Montelukast [Singulair] 10 mg PO HS 02/04/16 09/06/17 Oxygen 2 l NS AD PRN 03/17/16 09/06/17 Insulin Glargine [Lantus] 80 unit SQ QPM 03/25/16 09/06/17 Insulin Glargine [Lantus] 90 unit SQ QAM 03/25/16 09/06/17 Albuterol Sulfate [Albuterol 2 puff IH Q4HR PRN 05/01/16 09/06/17 Inhaler] Citalopram Hydrobromide 40 mg PO DAILY 05/01/16 09/06/17 [Citalopram HBr] Raloxifene [Evista] 60 mg PO DAILY 05/01/16 09/06/17 Fenofibrate Nanocrystallized 145 mg PO DAILY 06/15/16 09/06/17 [Tricor] Cholecalciferol (D-3) [Vitamin D] 1,000 unit PO DAILY 04/27/17 09/06/17 Metoclopramide [Reglan] 10 mg PO TID 04/27/17 09/06/17 Metoprolol XL (24 HR) Succ [Toprol 50 mg PO DAILY 04/27/17 09/06/17 Xl] Insulin LISPRO [Humalog Kwikpen 2 - 10 unit SQ TID PRN 05/09/17 09/06/17 U-100] clonazePAM [Klonopin] 1 mg PO DAILY PRN 05/28/17 09/06/17 Bumetanide 2 mg PO BID 06/11/17 09/06/17 Buspirone HCl [Buspar] 15 mg PO TID 06/11/17 09/06/17 Gabapentin [Neurontin] 800 mg PO 5XD 06/11/17 09/06/17 Omeprazole [PriLOSEC] 20 mg PO BIDAC 06/11/17 09/06/17 Potassium Chloride 20 meq PO BID 06/11/17 09/06/17 Tizanidine HCl [Zanaflex] 4 mg PO TID PRN 06/11/17 09/06/17 amLODIPine [Norvasc] 2.5 mg PO DAILY 06/11/17 09/06/17 metOLazone [Zaroxolyn] 2.5 mg PO DAILY PRN 06/11/17 09/06/17 Isosorbide MONOnitrate (24 HR) 120 mg PO DAILY 06/26/17 09/06/17 [Imdur] Nazlini-3 Fatty Acids/Fish Oil [Fish 1 cap PO DAILY 06/26/17 09/06/17 Oil 1,000 mg Softgel] Oxycodone HCl/Acetaminophen 1 tab PO Q6H PRN 06/26/17 09/06/17 [Percocet 5-325 mg Tablet] Nortriptyline [Pamelor] 25 mg PO HS 06/27/17 09/06/17 DiphenhydraMINE [Benadryl] 25 mg PO HS 08/29/17 09/06/17 Previous Rx's Medication Instructions Recorded Aripiprazole [Abilify] 10 mg PO HS tablet 05/03/16 Clopidogrel [Plavix] 75 mg PO QAM tablet 06/18/16 Aspirin 81 mg PO DAILY #60 tab.chew 12/06/16 Mag Hydrox/Al Hydrox/Simeth 30 ml PO Q6H PRN 30 Days oral.susp 03/26/17 [Maalox] Magnesium Oxide [Mag-Ox] 400 mg PO DAILY #0 tab 05/29/17 Allergies Allergy/AdvReac Type Severity Reaction Status Date / Time No Known Allergies Allergy Verified 09/06/17 05:43 Chest Pain PMH - Past Medical History Medical history: Reports: arthritis, CHF, COPD, coronary artery disease, diabetes, GERD, hyperlipidemia, hypertension, osteoporosis, renal disease, thyroid disease, TIA, venous stasis, other Surgical history: Reports: angioplasty/stent, , cholecystectomy, hysterectomy Psychiatric history: Reports: anxiety, bipolar, depression, panic disorder [employer] history: Reports: bilateral tubal ligation - Social History Smoking Status: Former smoker Alcohol use: Reports: none Drug use: Reports: none Physical Exam - General Limitations: no limitations General appearance: alert, in no apparent distress, obese - Head Head exam: atraumatic, normocephalic, normal inspection - Eye Eye exam: Present: normal appearance, PERRL, EOMI - ENT ENT exam: normal exam, mucous membranes moist - Neck Neck exam: Present: normal inspection, trachea midline - Chest Chest inspection: Present: normal inspection, symmetric chest wall rise - Respiratory Respiratory exam: Present: normal lung sounds bilaterally. Absent: respiratory distress - Cardiovascular Cardiovascular exam: Present: normal rhythm, tachycardia - Abdominal Exam Abdominal exam: Present: soft, Non-Tender - Extremities Exam Extremities exam: Present: normal inspection, other (Bilateral symmetric erythroderma of the lower legs to the mid boo.). Absent: pedal edema - Back Exam Back exam: Present: normal inspection - Neurological Exam Neurological exam: Present: alert, oriented X3 - Skin Skin exam: Present: warm, dry, intact, normal color Course Course Narrative: Patient seen and examined. Patient was signed out by the prior provider. Patient reports left-sided chest pain around 4:00 this morning. Notes it to radiate down her left arm and neck. Patient states he does have a history of mild heart attack in the past for similar presentation. Patient denies any history of blood clots. Patient reports some nausea no vomiting. Notes to be nonexertional. Awaiting CTA of the chest. Vital Signs Temperature 98.1 F 09/06/17 05:43 Pulse Rate 108 09/06/17 05:43 Respiratory Rate 22 09/06/17 05:43 Blood Pressure 154/75 09/06/17 05:43 O2 Sat by Pulse Oximetry 93 09/06/17 05:43 Temperature 98.3 F 09/07/17 10:19 Pulse Rate 104 09/07/17 10:19 Respiratory Rate 16 09/07/17 10:19 Blood Pressure 153/81 09/07/17 10:19 O2 Sat by Pulse Oximetry 94 09/07/17 10:19 Oxygen Delivery Oxygen Delivery Nasal Cannula Chest Pain - MDM Narrative Medical decision making narrative: 61-year-old female presents for evaluation of chest pain. Patient does have a cardiac history as well as risk factors diabetes hypertension. Patient workup revealed negative troponin. Given the nature of the patient's symptoms a CT of the chest was ordered. Patient does have slightly lower renal function with a GFR 48. Patient will be hydrated. Patient's creatinine is normal. Patient's pain was addressed in the emergency department. Patient's EKG shows no acute changes. Patient's electrolytes show hypokalemia with normal magnesium. Patient was given potassium 40 mEq orally in the emergency department. Was also given fluid patient help with hyperglycemia. Patient will likely require admission and observation for further evaluation monitoring. - Medical Records Medical records reviewed: Yes I reviewed the patient's medical records. - Lab Data Lab results reviewed: Yes I reviewed the patient's lab results. Result diagrams: 09/07/17 00:40 09/07/17 00:40 Lab Results 09/06/17 09/06/17 09/06/17 Range/Units 06:33 06:33 06:33 WBC 9.4 (4.3-11.1) K/mcL RBC 4.05 (3.82-4.97) M/mcL Hgb 10.3 L (11.5-15.4) g/dL Hct 33.7 L (35.3-44.9) % MCV 83.2 (83.0-100.0) fL MCH 25.4 L (28.0-33.3) pg MCHC 30.6 L (31.6-35.5) g/dL RDW 16.0 H (11.5-14.5) % Plt Count 248 (140-400) K/mcL MPV 11.8 (9.4-12.4) fL Immature Gran % 1.2 (0-4) % Seg Neutrophils % 62.7 % Lymphocytes % 29.0 % Monocytes % 4.5 % Eosinophils % 2.1 % Basophils % 0.5 % Neutrophils # 5.9 (1.6-8.9) K/mcL Lymphocytes # 2.7 (0.6-4.6) K/mcL Monocytes # 0.4 (0.0-1.3) K/mcL Eosinophils # 0.2 (0.0-0.6) K/mcL Basophils # 0.1 (0.0-0.2) K/mcL Nucleated RBCs/100 WBC 0.3 H (0) /100 WBC PT 9.6 (9.4-12.1) Seconds INR 0.9 APTT 26.4 (26.0-36.0) Seconds Sodium (136-145) mEq/L Potassium (3.5-5.1) mEq/L Chloride (98-107) mEq/L Carbon Dioxide (23-29) mEq/L BUN (6-20) mg/dL Creatinine (0.60-1.20) mg/dL Est GFR ( Amer) (> 60) Est GFR (Non-Af Amer) (> 60) BUN/Creatinine Ratio (6-26) Glucose (70-105) mg/dL Calculated Osmolality (280-300) Calcium (8.6-10.3) mg/dL Magnesium (1.6-2.6) mg/dL Troponin I (< 0.04) ng/mL B-Natriuretic Peptide 42 (Less than 100) pg/mL Urine Color (Yellow) Urine Clarity (Clear) Urine pH (5.0-8.0) pH Units Ur Specific [place] (1.010-1.025) Urine Protein (Neg-Trace) mg/dL Urine Glucose (UA) (Normal) mg/dL Urine Ketones (Negative) mg/dL Urine Blood (Negative) Urine Nitrite (Negative) Urine Bilirubin (Negative) Urine Urobilinogen (Normal) mg/dL Ur Leukocyte Esterase (Negative) 09/06/17 09/06/17 09/06/17 Range/Units 06:33 06:33 12:11 WBC (4.3-11.1) K/mcL RBC (3.82-4.97) M/mcL Hgb (11.5-15.4) g/dL Hct (35.3-44.9) % MCV (83.0-100.0) fL MCH (28.0-33.3) pg MCHC (31.6-35.5) g/dL RDW (11.5-14.5) % Plt Count (140-400) K/mcL MPV (9.4-12.4) fL Immature Gran % (0-4) % Seg Neutrophils % % Lymphocytes % % Monocytes % % Eosinophils % % Basophils % % Neutrophils # (1.6-8.9) K/mcL Lymphocytes # (0.6-4.6) K/mcL Monocytes # (0.0-1.3) K/mcL Eosinophils # (0.0-0.6) K/mcL Basophils # (0.0-0.2) K/mcL Nucleated RBCs/100 WBC (0) /100 WBC PT (9.4-12.1) Seconds INR APTT (26.0-36.0) Seconds Sodium 135 L (136-145) mEq/L Potassium 3.0 L (3.5-5.1) mEq/L Chloride 91 L (98-107) mEq/L Carbon Dioxide 32 H (23-29) mEq/L BUN 37 H (6-20) mg/dL Creatinine 1.16 (0.60-1.20) mg/dL Est GFR ( Amer) 58 L (> 60) Est GFR (Non-Af Amer) 48 L (> 60) BUN/Creatinine Ratio 32 H (6-26) Glucose 457 H (70-105) mg/dL Calculated Osmolality 309 H (280-300) Calcium 9.6 (8.6-10.3) mg/dL Magnesium 1.6 (1.6-2.6) mg/dL Troponin I < 0.03 (< 0.04) ng/mL B-Natriuretic Peptide (Less than 100) pg/mL Urine Color Yellow (Yellow) Urine Clarity Clear (Clear) Urine pH 6.5 (5.0-8.0) pH Units Ur Specific [place] 1.023 (1.010-1.025) Urine Protein Negative (Neg-Trace) mg/dL Urine Glucose (UA) >=1000 H (Normal) mg/dL Urine Ketones Negative (Negative) mg/dL Urine Blood Negative (Negative) Urine Nitrite Negative (Negative) Urine Bilirubin Negative (Negative) Urine Urobilinogen Normal (Normal) mg/dL Ur Leukocyte Esterase Negative (Negative) 09/06/17 09/06/17 Range/Units 12:39 12:39 WBC (4.3-11.1) K/mcL RBC (3.82-4.97) M/mcL Hgb (11.5-15.4) g/dL Hct (35.3-44.9) % MCV (83.0-100.0) fL MCH (28.0-33.3) pg MCHC (31.6-35.5) g/dL RDW (11.5-14.5) % Plt Count (140-400) K/mcL MPV (9.4-12.4) fL Immature Gran % (0-4) % Seg Neutrophils % % Lymphocytes % % Monocytes % % Eosinophils % % Basophils % % Neutrophils # (1.6-8.9) K/mcL Lymphocytes # (0.6-4.6) K/mcL Monocytes # (0.0-1.3) K/mcL Eosinophils # (0.0-0.6) K/mcL Basophils # (0.0-0.2) K/mcL Nucleated RBCs/100 WBC (0) /100 WBC PT (9.4-12.1) Seconds INR APTT 25.6 L (26.0-36.0) Seconds Sodium (136-145) mEq/L Potassium (3.5-5.1) mEq/L Chloride (98-107) mEq/L Carbon Dioxide (23-29) mEq/L BUN (6-20) mg/dL Creatinine (0.60-1.20) mg/dL Est GFR ( Amer) (> 60) Est GFR (Non-Af Amer) (> 60) BUN/Creatinine Ratio (6-26) Glucose (70-105) mg/dL Calculated Osmolality (280-300) Calcium (8.6-10.3) mg/dL Magnesium (1.6-2.6) mg/dL Troponin I < 0.03 (< 0.04) ng/mL B-Natriuretic Peptide (Less than 100) pg/mL Urine Color (Yellow) Urine Clarity (Clear) Urine pH (5.0-8.0) pH Units Ur Specific [place] (1.010-1.025) Urine Protein (Neg-Trace) mg/dL Urine Glucose (UA) (Normal) mg/dL Urine Ketones (Negative) mg/dL Urine Blood (Negative) Urine Nitrite (Negative) Urine Bilirubin (Negative) Urine Urobilinogen (Normal) mg/dL Ur Leukocyte Esterase (Negative) - Radiology Data Radiology results reviewed: Yes I reviewed the patient's radiology results. Chest X-Ray 09/06/17 05:49 IMPRESSION: No acute disease. D/ / Burt Crandall MD / Burt Crandall MD Interpreting Provider: Burt Crandall MD Chest X-Ray 09/06/17 05:49 IMPRESSION: No acute disease. D/ / Burt Crandall MD / Burt Crandall MD Interpreting Provider: Burt Crandall MD Chest CTA 09/06/17 05:54 IMPRESSION: No evidence of pulmonary embolism or acute pulmonary abnormality. Tiny 5.3 mm right upper lobe nodule. RECOMMENDATIONS: Fleischner Society guidelines for follow-up and management of incidentally detected pulmonary nodules: Single Solid Nodule: Nodule size less than 6 mm In a low-risk patient, no routine follow-up. In a high-risk patient, optional CT at 12 months. Nodule size equals 6-8 mm In a low-risk patient, CT at 6-12 months, then consider CT at 18-24 months. In a high-risk patient, CT at 6-12 months, then CT at 18-24 months. Nodule size greater than 8 mm In a low-risk patient, consider CT, PET/CT, or tissue sampling at 3 months. In a high-risk patient, consider CT, PET/CT, or tissue sampling at 3 months. Multiple Solid Nodules: Nodule size less than 6 mm In a low-risk patient, no routine follow-up. In a high-risk patient, optional CT at 12 months. Nodule size equals 6-8 mm In a low-risk patient, CT at 3-6 months, then consider CT at 18-24 months. In a high-risk patient, CT at 3-6 months, then CT at 18-24 months. Nodule size greater than 8 mm In a low-risk patient, CT at 3-6 months, then consider CT at 18-24 months. In a high-risk patient, CT at 3-6 months, then CT at 18-24 months. - Low risk patients include individuals with minimal or absent history of smoking and other known risk factors. - High risk patients include individuals with a history or smoking or known risk factors. Radiology 2017 http://pubs.[facility].org/doi/full/10.1148/radiol.5151999082 D/ / 09/06/2017 10:00:52 Alissa Katz MD / braydon Interpreting Provider: Alissa Katz MD - EKG Data EKG attestation: Yes I reviewed and interpreted this EKG. EKG shows normal: sinus rhythm Rate: tachycardia Rhythm: NSR [place]/QRS: normal Q waves: III, aVF, v1, v3 Interpretation: no acute changes, nonspecific ST-T wave changes S.B.A.R. - S.B.A.Sean Situation: Demographics Background: Presenting Complaint Assessment: Vital Signs, Course and respsone to treatment, Patient/Family Expectation Recommendation: Barrier(s) to disposition, Recommendation based on pending studies, treatments, or consults S.B.A.R. Report Given to: Dr. Basurto SCindyARamirez Repor Time: 09:15 Attestation Statement - Attestation Attestation: I examined this patient and my medical decision-making was reviewed with the Resident Physician. I agree with the documented findings, disposition and treatment plan as described except to the extent set forth below. 61 yo F with hx of recent chest pain received in sign out at start of shift pending lab and imaging with disoposition. Pt CT did not show PE. initial negative trop. VS stable. Pt comfortable with plan for admission to hospital for further care and evaluaiton.
[2017-09-06] MEDS ORDERED: 0.9 % Sodium Chloride 1,000 ML IVC ONE (08:47)
--- NOTE | 2017-09-06 11:46 | Internal Med History&Physical ---
Date of Encounter: 09/10/17 Time of Encounter: 11:46 Assessment and Plan (1) COPD exacerbation Status: Acute 61/female Admitted with worsening shortness of breath. She called EMS for worsening shortness of breath at 2 AM in the morning. Received frequent embolizations from EMS. Has background history of COPD. Plan: Admit as inpatient. Intravenous ceftriaxone/intravenous azithromycin. Intravenous on Solu-Medrol 40 mg every 8 hours. Inhaled bronchodilators. Close monitoring of the respiratory status. (2) Atypical chest pain Status: Chronic Patient has a chest pain: Likely atypical. Left heart catheter: 04/07/2017: Stent sites patent in mid RCA, mild diffuse disease in distal RCA, Stent sites patent proximal LAD, mild nonobstructive disease in circumflex Systolic function: EF: 55% During this heart catheterization it was mentioned that to search for noncardiac source of her chest pain. Echocardiogram: 05/11/2017. LVEF: 6-65%. No evidence of pulmonary hypertension. No evidence of valvular heart disease. . (3) Hypertension Status: Acute Stable Qualifiers: Hypertension type: essential hypertension Qualified Code(s): I10 - Essential (primary) hypertension (4) Acute and chronic respiratory failure with hypoxia Status: Resolved This is likely secondary to COPD exacerbation. (5) Chronic venous stasis dermatitis of both lower extremities Status: Chronic Chronic venous stasis. (6) Type 2 diabetes mellitus Status: Chronic We will follow the subcutaneous insulin order set recommendations 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 mellitus complication status: with neurologic complications Diabetes mellitus complication detail: with polyneuropathy Diabetes mellitus terminal worker insulin use: with terminal worker use Qualified Code(s): E11.42 - Type 2 diabetes mellitus with diabetic polyneuropathy; Z79.4 - USP (current) use of insulin; Z79.4 - USP (current) use of insulin; Z79.4 - USP ( current) use of insulin; Z79.4 - USP (current) use of insulin (7) DVT prophylaxis Status: Acute Foot pump Internal Medicine - H&P: HPI Chief complaint: Chest pain Admitted From: Emergency Dept Plans for Post Hospital Care: Home History of present illness: Ms. Lynch is a 61 year old female who has background history of for COPD, coronary artery disease, diabetes, hypertension, previous cardiac catheterization with 4 stents, extensive venous stasis. Patient presented to emergency room with the worsening shortness of breath which started around 1: 45 /2 AM in the morning. [facility] was called and as per patient her oxygen saturation was extremely low and squflor gave her nebulization treatment following which she started feeling better. Patient has this ongoing symptom for past 3-4 days but in last 24 hours of symptoms worsened profoundly. Patient also complains of chest pain which is nonradiating and localized worsening with the movement and relieved by rest. Patient denies abdominal pain , nausea, vomiting, dizziness and diarrhea. Patient was evaluated in the emergency room and basic labs were drawn. Chest x- ray was suggestive of a no acute processes but she has a background history of COPD. Reason for admission: Possible COPD exacerbation and chest pain to rule out acute coronary syndrome. Family history: Noncontributory Past Med Surg Social Fam HX - Past Medical History Medical history: arthritis, CHF, COPD, coronary artery disease, diabetes, GERD, hyperlipidemia, hypertension, osteoporosis, renal disease, thyroid disease, TIA , venous stasis, other Psychiatric history: anxiety, bipolar, depression, panic disorder - Past Surgical History Surgical History: angioplasty/stent, , cholecystectomy, hysterectomy - Social History Smoking Status: Former smoker Smokeless Tobacco Status: No Alcohol use: none Drug use: none - Family History Brother Adopted: No Family Member Ethnicity: Non- Living Status: Hx Family Cardiac Disorders: Yes Father Adopted: No Family Member Ethnicity: Non- Living Status: Hx Family Cardiac Disorders: Yes (HD, HLD, HTN, VT, Triple Bypass) Hx Family Neurologic Disorders: Yes (Dementia) Mother Adopted: No Family Member Ethnicity: Non- Living Status: Hx Family Cardiac Disorders: Yes (VT, HTN, HLD, Strokes x5) Hx Family Respiratory Disorders: No Hx Family Cancer: No Hx Family GI Disorders: No Hx Family Endocrine Disorder: Yes (DM) Hx Family Neuromuscular Disorders: No Hx Family Neurologic Disorders: Yes (Strokes) Hx Family HEENT Disorders: No Hx Family Autoimmune Disorders: No Internal Medicine - H&P: Meds Budesonide/Formoterol 160/4.5 [Symbicort] 2 puff IH BIDR 04/21/15 [History] Levothyroxine [Synthroid] 100 mcg PO QAM 04/21/15 [History] Tiotropium [Spiriva] 18 mcg IH QAM 04/21/15 [History] metFORMIN [Glucophage] 1,000 mg PO BID 04/21/15 [History] Atorvastatin Calcium [Lipitor] 40 mg PO DAILY 02/04/16 [History] Montelukast [Singulair] 10 mg PO HS 02/04/16 [History] Oxygen 2 l NS AD PRN 03/17/16 [History] Insulin Glargine [Lantus] 80 unit SQ QPM 03/25/16 [History] Insulin Glargine [Lantus] 90 unit SQ QAM 03/25/16 [History] Albuterol Sulfate [Albuterol Inhaler] 2 puff IH Q4HR PRN 05/01/16 [History] Citalopram Hydrobromide [Citalopram HBr] 40 mg PO DAILY 05/01/16 [History] Raloxifene [Evista] 60 mg PO DAILY 05/01/16 [History] Aripiprazole [Abilify] 10 mg PO HS tablet 05/03/16 [Rx] Fenofibrate Nanocrystallized [Tricor] 145 mg PO DAILY 06/15/16 [History] Clopidogrel [Plavix] 75 mg PO QAM tablet 06/18/16 [Rx] Aspirin 81 mg PO DAILY #60 tab.chew 12/06/16 [Rx] Mag Hydrox/Al Hydrox/Simeth [Maalox] 30 ml PO Q6H PRN 30 Days oral.susp [Rx] Cholecalciferol (D-3) [Vitamin D] 1,000 unit PO DAILY 04/27/17 [History] Metoclopramide [Reglan] 10 mg PO TID 04/27/17 [History] Metoprolol XL (24 HR) Succ [Toprol Xl] 50 mg PO DAILY 04/27/17 [History] Insulin LISPRO [Humalog Kwikpen U-100] 2 - 10 unit SQ TID PRN 05/09/17 [History] clonazePAM [Klonopin] 1 mg PO DAILY PRN 05/28/17 [History] Magnesium Oxide [Mag-Ox] 400 mg PO DAILY #0 tab 05/29/17 [Rx] Bumetanide 2 mg PO BID 06/11/17 [History] Buspirone HCl [Buspar] 15 mg PO TID 06/11/17 [History] Gabapentin [Neurontin] 800 mg PO 5XD 06/11/17 [History] Omeprazole [PriLOSEC] 20 mg PO BIDAC 06/11/17 [History] Potassium Chloride 20 meq PO BID 06/11/17 [History] Tizanidine HCl [Zanaflex] 4 mg PO TID PRN 06/11/17 [History] amLODIPine [Norvasc] 2.5 mg PO DAILY 06/11/17 [History] metOLazone [Zaroxolyn] 2.5 mg PO DAILY PRN 06/11/17 [History] Isosorbide MONOnitrate (24 HR) [Imdur] 120 mg PO DAILY 06/26/17 [History] [place]-3 Fatty Acids/Fish Oil [Fish Oil 1,000 mg Softgel] 1 cap PO DAILY [History] Oxycodone HCl/Acetaminophen [Percocet 5-325 mg Tablet] 1 tab PO Q6H PRN [History] Nortriptyline [Pamelor] 25 mg PO HS 06/27/17 [History] DiphenhydraMINE [Benadryl] 25 mg PO HS 08/29/17 [History] Amoxicillin/Clavulanate [Augmentin] 875 mg PO BIDWM 5 Days #10 tablet 09/09/17 [ Rx] Roflumilast [Daliresp] 500 mcg PO DAILY #30 tablet 09/09/17 [Rx] predniSONE [PredniSONE] 40 mg PO DAILY #5 tablet 09/09/17 [Rx] 3 Allergy/AdvReac Type Severity Reaction Status Date / Time No Known Allergies Allergy Verified 09/06/17 05:43 All Systems PM: A 10-system review of systems was performed and is negative for pertinent findings except as documented above in the HPI. - Constitutional Constitutional: no chills, no fever(s), no night sweats - EENT Eyes: no change in vision, no discharge, no pain, no photophobia Ears: no ear discharge, no ear pain, no tinnitus Nose, mouth and throat: no dysphagia, no nasal discharge, no neck pain, no sore throat - Cardiovascular Cardiovascular ROS IM: chest pain, diaphoresis, dyspnea, no lightheadedness, no palpitations, no syncope - Respiratory Respiratory: cough, dyspnea, wheezing, no excessive phlegm production - Gastrointestinal Gastrointestinal: no abdominal pain, no diarrhea, no hematemesis, no hematochezia, no melena, no nausea, no vomiting - Genitourinary Genitourinary: no change in urinary stream, no dysuria, no flank pain, no hematuria - Musculoskeletal Musculoskeletal ROS IM: no numbness, no tingling - Integumentary Integumentary IM: no rash, no unusual bruising - Neurological Neurological ROS: no confusion, no convulsions, no focal weakness, no numbness, no tingling, no tremor(s) - Hematologic/Lymphatic Hematologic/Lymphatic: no easy bruising - Constitutional Vitals: Temp Pulse Resp BP Pulse Ox 98.1 F 95 20 142/74 95 09/06/17 05:43 09/06/17 11:15 09/06/17 11:15 09/06/17 11:15 09/06/17 11:15 General appearance: Present: A&O X 3, pleasant, no acute distress, answers questions appropriately - Head Head exam: Present: atraumatic, normocephalic - Eye Eye exam: Present: PERRL, conjuntiva pink, sclera anicteric Pupils: Present: PERRL - Neck Neck exam general surgery: Present: supple, trachea midline. Absent: lymphadenopathy - Respiratory Respiratory exam: Present: CTAB. Absent: accessory muscle use, rales, rhonchi, wheezes - Cardiovascular Cardiovascular exam: Present: RRR, +S1, +S2. Absent: diastolic murmur, gallop, rubs, systolic murmur - GI/Abdominal GI/Abdominal exam: Present: normal bowel sounds, soft, no peritoneal signs. Absent: distended, tenderness - Extremities Exam Extremities exam: Present: warm, radial pulses palpable and symmetrical. Absent : calf tenderness, cyanotic, pedal edema - Neurological Exam Neurological exam: Present: CN II-XII intact, oriented X3, no focal deficits. Absent: pronater drift, facial droop, speech deficit - Skin Skin exam: Present: dry, intact Internal Med - H&P Results - Labs CBC & Chem 7: 09/09/17 04:11 09/09/17 04:11 Labs: Short CBC 09/06/17 Range/Units 06:33 WBC 9.4 (4.3-11.1) K/mcL Hgb 10.3 L (11.5-15.4) g/dL Hct 33.7 L (35.3-44.9) % Plt Count 248 (140-400) K/mcL Neutrophils # 5.9 (1.6-8.9) K/mcL BMP 09/06/17 06:33 Sodium 135 L Potassium 3.0 L Chloride 91 L Carbon Dioxide 32 H BUN 37 H Creatinine 1.16 Glucose 457 H Calcium 9.6 Cardiac Enzymes 09/06/17 Range/Units 06:33 Troponin I < 0.03 (< 0.04) ng/mL - Impressions ITS Impressions Chest X-Ray 09/06/17 05:49 IMPRESSION: No acute disease. D/ / Burt Crandall MD / Burt Crandall MD Interpreting Provider: Burt Crandall MD Chest CTA 09/06/17 05:54 IMPRESSION: No evidence of pulmonary embolism or acute pulmonary abnormality. Tiny 5.3 mm right upper lobe nodule. RECOMMENDATIONS: Fleischner Society guidelines for follow-up and management of incidentally detected pulmonary nodules: Single Solid Nodule: Nodule size less than 6 mm In a low-risk patient, no routine follow-up. In a high-risk patient, optional CT at 12 months. Nodule size equals 6-8 mm In a low-risk patient, CT at 6-12 months, then consider CT at 18-24 months. In a high-risk patient, CT at 6-12 months, then CT at 18-24 months. Nodule size greater than 8 mm In a low-risk patient, consider CT, PET/CT, or tissue sampling at 3 months. In a high-risk patient, consider CT, PET/CT, or tissue sampling at 3 months. Multiple Solid Nodules: Nodule size less than 6 mm In a low-risk patient, no routine follow-up. In a high-risk patient, optional CT at 12 months. Nodule size equals 6-8 mm In a low-risk patient, CT at 3-6 months, then consider CT at 18-24 months. In a high-risk patient, CT at 3-6 months, then CT at 18-24 months. Nodule size greater than 8 mm In a low-risk patient, CT at 3-6 months, then consider CT at 18-24 months. In a high-risk patient, CT at 3-6 months, then CT at 18-24 months. - Low risk patients include individuals with minimal or absent history of smoking and other known risk factors. - High risk patients include individuals with a history or smoking or known risk factors. Radiology 2017 http://pubs.rsna.org/doi/full/10.1148/radiol.[email or web address] D/ / 09/06/2017 10:00:52 Alissa Katz MD / braydon Interpreting Provider: Alissa Katz MD
[2017-09-06] MEDS ORDERED: Ketorolac 30 MG/ML VIAL IVP PRN (11:47)
[2017-09-06] MEDS ORDERED: Naloxone 0.4 MG/ML INJ IVP PRN (11:47)
[2017-09-06] MEDS ORDERED: NON-FORMULARY MEDICATION 1 EACH EACH (Oxygen [Oxygen] 2 L) NS PRN (11:56)
[2017-09-06] MEDS ORDERED: metOLazone 2.5 MG TABLET PO PRN (11:56)
[2017-09-06] MEDS ORDERED: NON-FORMULARY MEDICATION 1 EACH EACH (Insulin Lispro [Humalog Kwikpen U-100] 0 UNIT) SQ PRN (11:56)
[2017-09-06] MEDS ORDERED: tiZANidine 4 MG TABLET PO PRN (11:56)
[2017-09-06] MEDS ORDERED: Dextrose Gel 15 GM/37.5 ML TUBE PO PRN ×4 (12:06→23:53)
[2017-09-06] MEDS ORDERED: D5% in Water 1,000 ML IVC PRN ×2 (12:06→23:53)
[2017-09-06] MEDS ORDERED: *HR* Dextrose 50 % in Water (Syg) 50 ML SYRINGE IVP PRN ×2 (12:06→23:53)
[2017-09-06] MEDS ORDERED: Ipratropium/Albuterol Neb 3 ML ONE (12:28)
[2017-09-06 12:30] LABS: Bilirubin,Urine Negative (Negative); Blood,Urine Negative (Negative); Clarity,Urine Clear (Clear); Color,Urine Yellow (Yellow); Glucose,Urine (UA) >=1000 mg/dL (Normal); Ketones,Urine Negative (Negative); Leukocyte Esterase,Urine Negative (Negative); Nitrite,Urine Negative (Negative); PH,Urine 6.5 pH Units (5.0-8.0); Protein,Urine Negative (Neg-Trace); Specific Gravity,Urine 1.023 (1.010-1.025); Urobilinogen,Urine Normal (Normal)
[2017-09-06] MEDS: Ipratropium/Albuterol Neb 3 ML IH SCH ×4 (12:51→23:45)
[2017-09-06] MEDS: Gabapentin 400 MG CAPSULE PO SCH ×3 (15:27→22:56)
[2017-09-06] MEDS: Insulin LISPRO 300 UNITS/3 ML VIAL SQ SCH ×2 (15:28→17:01)
[2017-09-06] MEDS: Azithromycin 500 MG in D5% in Water 250 ML IVPB SCH (15:39)
[2017-09-06] MEDS: cefTRIAXone 1,000 MG in Water for inj. (sterile) 20 ML 10 ML IVPB SCH (15:40)
[2017-09-06] MEDS: MethylPREDNISolone 40 MG/ML VIAL IVP SCH ×2 (15:41→23:41)
--- NOTE | 2017-09-06 16:56 | Electrocardiograph Report ---
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
[2017-09-06] MEDS: *HR* OxyCODONE/APAP 5/325 TABLET PO PRN ×2 (17:34→22:56)
[2017-09-06] MEDS ORDERED: NON-FORMULARY MEDICATION 1 EACH EACH (Insulin Glargine [Lantus] 80 UNIT) SQ SCH (18:00)
[2017-09-06] MEDS: Budesonide/Formoterol 160/4.5 MDI IH SCH (20:49)
[2017-09-06] MEDS: ARIPiprazole 10 MG TABLET PO SCH (22:42)
[2017-09-06] MEDS: clonazePAM 1 MG TABLET PO PRN (22:42)
[2017-09-06] MEDS: Bumetanide 1 MG TABLET PO SCH (22:51)
[2017-09-06] MEDS: Insulin DETEMIR 100 UNIT/ML X5UNITS SQ SCH (23:41)
[2017-09-07] MEDS: Insulin LISPRO 300 UNITS/3 ML VIAL SQ SCH ×5 (00:28→20:06)
[2017-09-07 00:53] LABS: Basophils # 0.1 K/mcL (0.0-0.2); Basophils % 0.5 %; Eosinophils % 0.1 %; Hematocrit 33.4 % (35.3-44.9); Hemoglobin 10.1 g/dL (11.5-15.4); Immature Granulocytes % 1.5 % (0-4); Lymphocytes # 1.5 K/mcL (0.6-4.6); Lymphocytes % 15.5 %; Mean Corpuscular HGB Conc 30.2 g/dL (31.6-35.5); Mean Corpuscular Hemoglobin 25.6 pg (28.0-33.3); Mean Corpuscular Volume 84.6 fL (83.0-100.0); Mean Platelet Volume 11.4 fL (9.4-12.4); Monocytes # 0.3 K/mcL (0.0-1.3); Monocytes % 3.3 %; Neutrophils # 7.4 K/mcL (1.6-8.9); Nucleated Red Blood Cells 0.2 /100 WBC (0); Platelet Count 258 K/mcL (140-400); Red Blood Count 3.95 M/mcL (3.82-4.97); Segmented Neutrophils % 79.1 %
[2017-09-07 01:30] LABS: Prothrombin Time 10.9 Seconds (9.4-12.1)
[2017-09-07 01:36] LABS: Alanine Aminotransferase 25 Units/L (7-52); Albumin 3.4 g/dL (3.5-5.7); Albumin/Globulin Ratio 1.2 (1.1-2.2); Alkaline Phosphatase 75 Units/L (34-104); Aspartate Amino Transferase 20 Units/L (13-39); BUN/Creatinine Ratio 31 (6-26); Bilirubin,Total 0.3 mg/dL (0.3-1.0); Blood Urea Nitrogen 32 mg/dL (6-20); Calcium 9.1 mg/dL (8.6-10.3); Carbon Dioxide 35 mEq/L (23-29); Chloride 94 mEq/L (98-107); Chloride 95 mEq/L (98-107); Chol/HDL Ratio 3.4 (0-4.9); Cholesterol 109 mg/dL (< 200); Globulin 2.9 g/dL (2.4-3.5); Glucose 442 mg/dL (70-105); Glucose 455 mg/dL (70-105); HDL Cholesterol 32 mg/dL (40-59); LDL Cholesterol,Calculated 37 mg/dL (0-99); Magnesium 1.8 mg/dL (1.6-2.6); Osmolality,Calculated 311 (280-300); Osmolality,Calculated 312 (280-300); Phosphorous 2.9 mg/dL (2.7-4.5); Sodium 137 mEq/L (136-145); Sodium 138 mEq/L (136-145); Total Protein 6.3 g/dL (6.4-8.9); Triglycerides 199 mg/dL (< 150); eGFR For African Americans > 60 (> 60); eGFR For Non-African Americans 55 (> 60)
[2017-09-07] MEDS: Gabapentin 400 MG CAPSULE PO SCH ×5 (01:54→23:44)
[2017-09-07] MEDS: Ipratropium/Albuterol Neb 3 ML IH SCH ×6 (04:13→23:18)
[2017-09-07] MEDS: *HR* OxyCODONE/APAP 5/325 TABLET PO PRN ×3 (04:58→21:57)
[2017-09-07] MEDS: Fenofibrate 54 MG TABLET PO SCH (08:08)
[2017-09-07] MEDS: Bumetanide 1 MG TABLET PO SCH ×2 (08:08→20:05)
[2017-09-07] MEDS: Aspirin 81 MG TAB.CHEW PO SCH (08:09)
[2017-09-07] MEDS: Metoprolol XL (24 HR) Succ 50 MG TAB.ER.24H PO SCH (08:09)
[2017-09-07] MEDS: amLODIPine 5 MG TABLET PO SCH (08:09)
[2017-09-07] MEDS: Isosorbide MONOnitrate (24 HR) 60 MG TAB.ER.24H PO SCH (08:09)
[2017-09-07] MEDS: Magnesium Oxide 400 MG TABLET PO SCH (08:10)
[2017-09-07] MEDS: cefTRIAXone 1,000 MG in Water for inj. (sterile) 20 ML 10 ML IVPB SCH (08:13)
[2017-09-07] MEDS: MethylPREDNISolone 40 MG/ML VIAL IVP SCH ×2 (08:13→16:41)
[2017-09-07] MEDS: clonazePAM 1 MG TABLET PO PRN (08:24)
[2017-09-07] MEDS: Insulin DETEMIR 100 UNIT/ML X5UNITS SQ SCH ×2 (08:26→20:06)
[2017-09-07] MEDS: Budesonide/Formoterol 160/4.5 MDI IH SCH ×2 (08:52→20:21)
[2017-09-07] MEDS ORDERED: NON-FORMULARY MEDICATION 1 EACH EACH (Insulin Glargine [Lantus] 90 UNIT) SQ SCH (09:00)
--- NOTE | 2017-09-07 09:20 | Internal Med Progress Note ---
<Rickie Chapin - Last Filed: 09/07/17 11:46> Date of Encounter: 09/07/17 Time of Encounter: 09:17 - Assessment and plan (1) COPD exacerbation Current Visit: Yes Status: Acute Assessment and plan: CXR negative for infiltrates Found have worsening SOB on arrival, hypoxia with O2 in 80s Sating well this morning in 90s Wheezing on exam today No leukocytosis VSS BNP normal Uses 2-3L NC O2 at home at night and during ambulation Baseline - She becomes SOB when walking to a different room in her trailer Quit smoking 1.5 years ago. Previously smoked 2PPD for 40 years Blood Cx show no growth Plan: IV ceftriaxone and azithromycin Decreased Solu-Medrol 40 mg to every 12 hours Duo-nebs q4 CARLINE NC Oxygen 2L at night and PRN Will continue close monitoring of the respiratory status (2) Atypical chest pain Current Visit: No Status: Chronic Assessment and plan: History of four stents placed previously 11/23/16 - Nuclear stress test: - No significant EKG changes with regadenoson, Gated EF >70%, no perfursion defects for ischemia or infarct 04/07/17- LHC: - Stents patent in mid RCA, 30% in distal RCA, stent in Mid LAD widely patent , Circu,flex and LMCA patent, LV systolic function with EF 55% 05/11/17 - ECHO: - EF 60-65%,, moderate LV diastolic dysfunction, no valvular or wall motion abnormalities 05/11/17 - Carotid Imaging: - Essentially normal bilateral carotid systems Trop neg x4 No EKG changes from previous Telemetry Will continue to monitor closely (3) Acute and chronic respiratory failure with hypoxia Current Visit: No Status: Acute Assessment and plan: Improving Etiology likely due to COPD Exacerbation (4) Chronic venous stasis dermatitis of both lower extremities Current Visit: No Status: Chronic Assessment and plan: Chronic issue, Not using compression stockings at home Trace edema Mild TTP Arterial study 05/07/2016: - The bilateral lower extremities are hemodynamically well maintained. - The right DAVID is normal. Right DAVID 1.02. - The left DAVID is normal. Left DAVID: 1.08. Plan: Elevate legs Apply compression stockings Low Na diet (5) Type 2 diabetes mellitus Current Visit: No Status: Chronic Assessment and plan: Patient voices compliance at home Home regimen: - Metformin - Levemir 90 morning and 80 at night with sliding scale coverage. 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: with nursing home use Qualified Code(s): E11.42 - Type 2 diabetes mellitus with diabetic polyneuropathy; Z79.4 - terminal block assembler (current) use of insulin; Z79.4 - MCC (current) use of insulin; Z79.4 - terminal block assembler ( current) use of insulin; Z79.4 - MCC (current) use of insulin (6) Chronic diastolic CHF (congestive heart failure) Current Visit: No Status: Chronic Assessment and plan: BNP normal No edema seen on CXR Trace bilateral LE edema Does report orthopnea and PND - sleeps on 2 pillows Continued home medications - ASA, statin, BB, Bumex, Metolazone (7) HTN (hypertension) Current Visit: No Status: Chronic Assessment and plan: Restarted home meds. BP stable. No changes at this time Qualifiers: Hypertension type: essential hypertension Qualified Code(s): I10 - Essential (primary) hypertension (8) Hyperlipidemia Current Visit: No Status: Chronic Assessment and plan: Statin therapy Qualifiers: Hyperlipidemia type: mixed hyperlipidemia Qualified Code(s): E78.2 - Mixed hyperlipidemia (9) GERD (gastroesophageal reflux disease) Current Visit: No Status: Chronic Assessment and plan: PPI therapy Qualifiers: Esophagitis presence: without esophagitis Qualified Code(s): K21.9 - Gastro -esophageal reflux disease without esophagitis (10) Anxiety Current Visit: No Status: Chronic Assessment and plan: Restarted home meds. Appears to be stable at this time (11) Depression Current Visit: No Status: Chronic Assessment and plan: Restarted home meds Qualifiers: Depression Type: major depressive disorder Major depression recurrence: recurrent Active/Remission status: in partial remission Qualified Code(s): F33.41 - Major depressive disorder, recurrent, in partial remission (12) Morbid obesity with BMI of 45.0-49.9, adult Current Visit: No Status: Chronic (13) Lung nodule seen on imaging study Current Visit: Yes Status: Chronic Assessment and plan: 5.3mm lung nodule seen on CT chest in right upper lobe High risk patient with tobacco abuse history Will need 12 month repeat imaging (14) DVT prophylaxis Current Visit: No Status: Acute Assessment and plan: EPCDs - Subjective Interval history: Patient admitted for COPD exacerbation and chest pain rule out Resting comfortably in bed this morning No NC during encounter but did require 2L NC O2 last night States that her SOB is worse from prior exacerbations Sternal chest pain still present, similar to previous admissions Denies any palpitations, productive cough, n/v, abdominal pain, fevers, chills or GI issues - Constitutional Vitals: Temp Pulse Resp BP Pulse Ox 98.4 F 108 18 159/76 92 09/07/17 06:33 09/07/17 06:33 09/07/17 06:33 09/07/17 06:33 09/07/17 06:33 General appearance: Present: A&O X 3, pleasant, no acute distress, answers questions appropriately - Head Head exam: Present: atraumatic, normocephalic - Eye Eye exam: Present: EOMI, normal appearance, conjuntiva pink, sclera anicteric - ENT ENT exam: Present: mucous membranes moist - Neck Neck exam general surgery: Present: supple, trachea midline - Respiratory Respiratory exam: Present: prolonged expiratory phase, wheezes (diffuse). Absent: accessory muscle use, chest wall tenderness, respiratory distress, tachypnea - Cardiovascular Cardiovascular exam: Present: RRR, +S1, +S2 - GI/Abdominal GI/Abdominal exam: Present: normal bowel sounds, soft. Absent: distended, tenderness - Extremities Exam Extremities exam: Present: normal capillary refill, pedal edema (trace, non- pitting, 2+ PT pulses), tenderness (b/l lower leg and feet), warm (stasis dermatitis). Absent: calf tenderness, cyanotic - Neurological Exam Neurological exam: Present: alert, oriented X3, no focal deficits - Psychiatric Psychiatric exam: Present: normal affect, normal mood - Skin Skin exam: Present: dry, warm. Absent: diaphoretic Internal Medicine: Result - Labs CBC & Chem 7: 09/07/17 00:40 09/07/17 00:40 Labs: Short CBC 09/07/17 Range/Units 00:40 WBC 9.4 (4.3-11.1) K/mcL Hgb 10.1 L (11.5-15.4) g/dL Hct 33.4 L (35.3-44.9) % Plt Count 258 (140-400) K/mcL Neutrophils # 7.4 (1.6-8.9) K/mcL BMP 09/07/17 09/07/17 00:40 00:40 Sodium 138 137 Potassium 4.0 D 4.0 Chloride 95 L 94 L Carbon Dioxide 35 H 35 H BUN 32 H 32 H Creatinine 1.02 1.02 Glucose 442 H 455 H Calcium 9.1 9.0 Cardiac Enzymes 09/06/17 09/07/17 Range/Units 18:01 00:40 Troponin I < 0.03 < 0.03 (< 0.04) ng/mL Liver Function 09/07/17 Range/Units 00:40 Total Bilirubin 0.3 (0.3-1.0) mg/dL AST 20 (13-39) Units/L ALT 25 (7-52) Units/L Alkaline Phosphatase 75 (34-104) Units/L Albumin 3.4 L (3.5-5.7) g/dL - ABG Interpretation ABG results: PT/INR, D-dimer PT 10.9 Seconds (9.4-12.1) 09/07/17 00:40 - VTE Documentation of Mechanical Device: Intermittent pneumatic compression device Consult Discharge Plan - Plan Referrals: NONE,PCP [Primary Care Provider] - <Ines Velasco - Last Filed: 09/07/17 18:20> Date of Encounter: 09/07/17 - Constitutional Vitals: Temp Pulse Resp BP Pulse Ox 98 F 98 16 137/69 95 09/07/17 15:17 09/07/17 15:17 09/07/17 15:17 09/07/17 15:17 09/07/17 15:17 Internal Medicine: Result - Labs CBC & Chem 7: 09/07/17 00:40 09/07/17 00:40 Labs: Short CBC 09/07/17 Range/Units 00:40 WBC 9.4 (4.3-11.1) K/mcL Hgb 10.1 L (11.5-15.4) g/dL Hct 33.4 L (35.3-44.9) % Plt Count 258 (140-400) K/mcL Neutrophils # 7.4 (1.6-8.9) K/mcL BMP 09/07/17 09/07/17 00:40 00:40 Sodium 138 137 Potassium 4.0 D 4.0 Chloride 95 L 94 L Carbon Dioxide 35 H 35 H BUN 32 H 32 H Creatinine 1.02 1.02 Glucose 442 H 455 H Calcium 9.1 9.0 Cardiac Enzymes 09/06/17 09/07/17 Range/Units 18:01 00:40 Troponin I < 0.03 < 0.03 (< 0.04) ng/mL Liver Function 09/07/17 Range/Units 00:40 Total Bilirubin 0.3 (0.3-1.0) mg/dL AST 20 (13-39) Units/L ALT 25 (7-52) Units/L Alkaline Phosphatase 75 (34-104) Units/L Albumin 3.4 L (3.5-5.7) g/dL - ABG Interpretation ABG results: PT/INR, D-dimer PT 10.9 Seconds (9.4-12.1) 09/07/17 00:40 - Attending Attestation I examined this patient and my medical decision-making was reviewed with the Resident Physician Dr. Chpain. I agree with the documented findings, disposition and treatment plan as described except to the extent set forth below. Ms. Lynch is a 61 year old female who has background history of for COPD, coronary artery disease, diabetes, hypertension, previous cardiac catheterization with 4 stents, extensive venous stasis pt admitted here for acute COPD exacerbation and acute bronchitis. She does c/o intermittent CP too. Gen: A, A, O x 3 Chest: Diminished BS b/l, diffuse wheezing Heart: S1S2+ a/p 1. Acute COPD exacerbation 2. Acute purulent bronchitis - mostly bacterial 3. Acute on chronic Hypoxic resp failure cont empirical abx cont duoneb cont IV steroids 3. Acute CP 4. h/o CAD Reviewed EKG showed more PVC's cont Metoprolol so far negative troponin may need stress test if she persistently having CP 5. Hyperglycemia due to Steroids changed ISS to high cont Levemir BID
[2017-09-07] MEDS: Azithromycin 500 MG in D5% in Water 250 ML IVPB SCH (12:33)
[2017-09-07] MEDS: *HR* Morphine 2 MG/ML SYRINGE IVP PRN ×2 (14:03→20:11)
[2017-09-07] MEDS: Nitroglycerin 0.4 MG TAB.SUBL SL PRN ×2 (14:04→14:48)
[2017-09-07] MEDS: ARIPiprazole 10 MG TABLET PO SCH (20:05)
[2017-09-08] MEDS: *HR* Morphine 2 MG/ML SYRINGE IVP PRN ×4 (00:20→22:50)
[2017-09-08] MEDS: Gabapentin 400 MG CAPSULE PO SCH ×5 (00:20→20:43)
[2017-09-08] MEDS: Ipratropium/Albuterol Neb 3 ML IH SCH ×6 (03:47→20:29)
[2017-09-08] MEDS: *HR* OxyCODONE/APAP 5/325 TABLET PO PRN ×3 (04:24→19:33)
[2017-09-08 05:55] LABS: Basophils # 0.1 K/mcL (0.0-0.2); Basophils % 0.6 %; Eosinophils # 0.1 K/mcL (0.0-0.6); Eosinophils % 0.8 %; Hematocrit 33.1 % (35.3-44.9); Hemoglobin 9.9 g/dL (11.5-15.4); Immature Granulocytes % 1.5 % (0-4); Lymphocytes # 3.6 K/mcL (0.6-4.6); Lymphocytes % 30.6 %; Mean Corpuscular HGB Conc 29.9 g/dL (31.6-35.5); Mean Corpuscular Hemoglobin 25.3 pg (28.0-33.3); Mean Corpuscular Volume 84.7 fL (83.0-100.0); Mean Platelet Volume 11.3 fL (9.4-12.4); Monocytes # 0.7 K/mcL (0.0-1.3); Monocytes % 6.2 %; Nucleated Red Blood Cells 0.3 /100 WBC (0); Platelet Count 254 K/mcL (140-400); Red Blood Count 3.91 M/mcL (3.82-4.97); Red Cell Distribution Width 16.3 % (11.5-14.5); Segmented Neutrophils % 60.3 %
[2017-09-08 06:07] LABS: BUN/Creatinine Ratio 33 (6-26); Blood Urea Nitrogen 28 mg/dL (6-20); Calcium 9.2 mg/dL (8.6-10.3); Carbon Dioxide 34 mEq/L (23-29); Chloride 94 mEq/L (98-107); Glucose 265 mg/dL (70-105); Osmolality,Calculated 297 (280-300); Potassium 3.3 mEq/L (3.5-5.1); Sodium 136 mEq/L (136-145); eGFR For African Americans > 60 (> 60); eGFR For Non-African Americans > 60 (> 60)
[2017-09-08] MEDS: MethylPREDNISolone 40 MG/ML VIAL IVP SCH (06:19)
[2017-09-08] MEDS: Budesonide/Formoterol 160/4.5 MDI IH SCH ×2 (07:44→20:29)
[2017-09-08] MEDS: Isosorbide MONOnitrate (24 HR) 60 MG TAB.ER.24H PO SCH (07:55)
[2017-09-08] MEDS: Metoprolol XL (24 HR) Succ 50 MG TAB.ER.24H PO SCH (07:55)
[2017-09-08] MEDS: amLODIPine 5 MG TABLET PO SCH (07:57)
[2017-09-08] MEDS: Aspirin 81 MG TAB.CHEW PO SCH (07:57)
[2017-09-08] MEDS: Fenofibrate 54 MG TABLET PO SCH (07:57)
[2017-09-08] MEDS: Magnesium Oxide 400 MG TABLET PO SCH (07:57)
[2017-09-08] MEDS: cefTRIAXone 1,000 MG in Water for inj. (sterile) 20 ML 10 ML IVPB SCH (07:58)
[2017-09-08] MEDS: Insulin LISPRO 300 UNITS/3 ML VIAL SQ SCH ×4 (07:59→20:44)
[2017-09-08] MEDS: Bumetanide 1 MG TABLET PO SCH ×2 (08:04→20:43)
[2017-09-08] MEDS: Insulin DETEMIR 100 UNIT/ML X5UNITS SQ SCH ×2 (08:05→20:43)
--- NOTE | 2017-09-08 10:49 | Internal Med Progress Note ---
<Rickie Chapin - Last Filed: 09/08/17 14:02> Date of Encounter: 09/08/17 Time of Encounter: 10:00 - Assessment and plan (1) COPD exacerbation Current Visit: Yes Status: Acute Assessment and plan: Sating well this morning in 90s Wheezing on exam today WBC up to 11.7 VSS Baseline - She becomes SOB when walking to a different room in her trailer Quit smoking 1.5 years ago. Previously smoked 2PPD for 40 years Blood Cx show no growth Plan: IV ceftriaxone and azithromycin (day 2) Prednisone 40mg qd Duo-nebs q4 CARLINE NC Oxygen 2L at night and PRN Home regimen includes Spiriva, Symbicort, albuterol IH with albuterol nebulizer( she uses at least once per day). Will have nursing turn off oxygen at rest to see if O2 drops as she already uses 2-3L NC O2 at home at night and during ambulation. Patient would likely benefit from the addition of Daliresp for prevention as well. She has multiple admissions within the last year for COPD exacerbations. She is high risk patient and will require continuation of close monitoring of her respiratory status (2) Acute bronchitis Current Visit: Yes Status: Acute Assessment and plan: WBC bump but likely d/t steroids Continue IV abx, bronchodilators, steroids and oxygen See above Qualifiers: Bronchitis organism: unspecified organism Qualified Code(s): J20.9 - Acute bronchitis, unspecified (3) Atypical chest pain Current Visit: No Status: Chronic Assessment and plan: History of four stents placed previously 11/23/16 - Nuclear stress test: - No significant EKG changes with regadenoson, Gated EF >70%, no perfursion defects for ischemia or infarct 04/07/17- [facility]: - Stents patent in mid RCA, 30% in distal RCA, stent in Mid LAD widely patent , Circu,flex and LMCA patent, LV systolic function with EF 55% 05/11/17 - ECHO: - EF 60-65%,, moderate LV diastolic dysfunction, no valvular or wall motion abnormalities 05/11/17 - Carotid Imaging: - Essentially normal bilateral carotid systems Trop neg x4 No EKG changes from previous Telemetry Will continue to monitor closely and have patient followup as outpatient as needed (4) Acute and chronic respiratory failure with hypoxia Current Visit: No Status: Acute Assessment and plan: Improving Etiology likely due to COPD Exacerbation (5) Chronic venous stasis dermatitis of both lower extremities Current Visit: No Status: Chronic Assessment and plan: Chronic issue, Not using compression stockings at home Trace edema Mild TTP Arterial study 05/07/2016: - The bilateral lower extremities are hemodynamically well maintained. - The right DAVID is normal. Right DAVID 1.02. - The left DAVID is normal. Left DAVID: 1.08. Plan: Elevate legs Apply compression stockings Low Na diet (6) Type 2 diabetes mellitus Current Visit: No Status: Chronic Assessment and plan: Patient voices compliance at home Home regimen: - Metformin - Levemir 90 morning and 80 at night with sliding scale coverage. (Unknown scale) Poor diet control and " cooks the food" Decreased steroid regimen Blood sugars are improving Continued Levemir schedule with HDSS coverage 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 mellitus complication status: with neurologic complications Diabetes mellitus complication detail: with polyneuropathy Diabetes mellitus exterminator helper termite insulin use: with exterminator helper termite use Qualified Code(s): E11.42 - Type 2 diabetes mellitus with diabetic polyneuropathy; Z79.4 - [facility] (current) use of insulin; Z79.4 - [facility] (current) use of insulin; Z79.4 - vermin exterminator ( current) use of insulin; Z79.4 - vermin exterminator (current) use of insulin (7) Chronic diastolic CHF (congestive heart failure) Current Visit: No Status: Chronic Assessment and plan: BNP normal No edema seen on CXR Trace bilateral LE edema Does report orthopnea and PND - sleeps on 2 pillows Continued home medications - ASA, statin, BB, Bumex, Metolazone (8) HTN (hypertension) Current Visit: No Status: Chronic Assessment and plan: Restarted home meds. BP stable. No changes at this time Qualifiers: Hypertension type: essential hypertension Qualified Code(s): I10 - Essential (primary) hypertension (9) Hyperlipidemia Current Visit: No Status: Chronic Assessment and plan: Statin therapy Qualifiers: Hyperlipidemia type: mixed hyperlipidemia Qualified Code(s): E78.2 - Mixed hyperlipidemia (10) GERD (gastroesophageal reflux disease) Current Visit: No Status: Chronic Assessment and plan: PPI therapy and Maaolx as needed Qualifiers: Esophagitis presence: without esophagitis Qualified Code(s): K21.9 - Gastro -esophageal reflux disease without esophagitis (11) Anxiety Current Visit: No Status: Chronic Assessment and plan: Restarted home meds. Appears to be stable at this time (12) Depression Current Visit: No Status: Chronic Assessment and plan: Restarted home meds Qualifiers: Depression Type: major depressive disorder Major depression recurrence: recurrent Active/Remission status: in partial remission Qualified Code(s): F33.41 - Major depressive disorder, recurrent, in partial remission (13) Morbid obesity with BMI of 45.0-49.9, adult Current Visit: No Status: Chronic (14) Lung nodule seen on imaging study Current Visit: Yes Status: Chronic Assessment and plan: 5.3mm lung nodule seen on CT chest in right upper lobe High risk patient with tobacco abuse history Will need 12 month repeat imaging (15) Constipation Current Visit: No Status: Chronic Assessment and plan: Colace BID and Miralax for now Will continue to monitor Qualifiers: Constipation type: unspecified constipation type Qualified Code(s): K59.00 - Constipation, unspecified (16) DVT prophylaxis Current Visit: No Status: Acute Assessment and plan: EPCDs - Subjective Interval history: Patient admitted for COPD exacerbation, bronchitis and chest pain rule out Resting comfortably in bed this morning No NC during encounter but did require 2L NC O2 last night States that her SOB is about the same as yesterday Sternal chest pain still present, similar to previous admissions Complaining of constipation Denies any palpitations, productive cough, n/v, abdominal pain, fevers, chills - Constitutional Vitals: Temp Pulse Resp BP Pulse Ox 98 F 87 16 144/89 95 09/08/17 06:41 09/08/17 06:41 09/08/17 06:41 09/08/17 06:41 09/08/17 08:28 General appearance: Present: A&O X 3, pleasant, no acute distress, answers questions appropriately - Head Head exam: Present: atraumatic, normocephalic - Eye Eye exam: Present: EOMI, normal appearance, conjuntiva pink, sclera anicteric - ENT ENT exam: Present: mucous membranes moist - Neck Neck exam general surgery: Present: supple, trachea midline - Respiratory Respiratory exam: Present: rhonchi (bilateral), wheezes (diffuse). Absent: accessory muscle use, chest wall tenderness, respiratory distress, tachypnea - Cardiovascular Cardiovascular exam: Present: RRR, +S1, +S2 - GI/Abdominal GI/Abdominal exam: Present: normal bowel sounds, soft. Absent: guarding, tenderness - Extremities Exam Extremities exam: Present: warm. Absent: calf tenderness, pedal edema, tenderness - Neurological Exam Neurological exam: Present: alert, oriented X3, no focal deficits - Psychiatric Psychiatric exam: Present: normal affect, normal mood - Skin Skin exam: Present: dry, warm. Absent: diaphoretic Internal Medicine: Result - Labs CBC & Chem 7: 09/08/17 05:38 09/08/17 05:38 Labs: Short CBC 09/08/17 Range/Units 05:38 WBC 11.7 H (4.3-11.1) K/mcL Hgb 9.9 L (11.5-15.4) g/dL Hct 33.1 L (35.3-44.9) % Plt Count 254 (140-400) K/mcL Neutrophils # 7.0 (1.6-8.9) K/mcL BMP 09/08/17 05:38 Sodium 136 Potassium 3.3 L Chloride 94 L Carbon Dioxide 34 H BUN 28 H Creatinine 0.84 Glucose 265 H Calcium 9.2 - ABG Interpretation ABG results: PT/INR, D-dimer PT 10.9 Seconds (9.4-12.1) 09/07/17 00:40 - VTE Documentation of Mechanical Device: Graduated compression elastic hosiery Consult Discharge Plan - Plan Referrals: NONE,PCP [Primary Care Provider] - <Ines Velasco - Last Filed: 09/08/17 17:04> Date of Encounter: 09/08/17 - Constitutional Vitals: Temp Pulse Resp BP Pulse Ox 98.3 F 92 16 138/84 95 09/08/17 11:00 09/08/17 11:00 09/08/17 16:57 09/08/17 11:00 09/08/17 16:57 Internal Medicine: Result - Labs CBC & Chem 7: 09/08/17 05:38 09/08/17 05:38 Labs: Short CBC 09/08/17 Range/Units 05:38 WBC 11.7 H (4.3-11.1) K/mcL Hgb 9.9 L (11.5-15.4) g/dL Hct 33.1 L (35.3-44.9) % Plt Count 254 (140-400) K/mcL Neutrophils # 7.0 (1.6-8.9) K/mcL BMP 09/08/17 05:38 Sodium 136 Potassium 3.3 L Chloride 94 L Carbon Dioxide 34 H BUN 28 H Creatinine 0.84 Glucose 265 H Calcium 9.2 - ABG Interpretation ABG results: PT/INR, D-dimer PT 10.9 Seconds (9.4-12.1) 09/07/17 00:40 - Attending Attestation I examined this patient and my medical decision-making was reviewed with the Resident Physician Dr. Chapin. I agree with the documented findings, disposition and treatment plan as described except to the extent set forth below. Ms. Lynch is a 61 year old female who has background history of for COPD, coronary artery disease, diabetes, hypertension, previous cardiac catheterization with 4 stents, extensive venous stasis pt admitted here for acute COPD exacerbation and acute bronchitis. She denied any CP today..feeling better today Gen: A, A, O x 3 Chest: Diminished BS b/l, diffuse wheezing Heart: S1S2+ a/p 1. Acute COPD exacerbation 2. Acute purulent bronchitis - mostly bacterial 3. Acute on chronic Hypoxic resp failure Improving cont empirical abx cont duoneb switched to PO steroids 4. Acute CP 5. h/o CAD Reviewed EKG showed more PVC's cont Metoprolol so far negative troponin She recently had LHC 4 months ago no further work needed recommend to f.u with Card as an out pt 6. Hyperglycemia due to Steroids Cont ISS @ high cont Levemir BID
[2017-09-08] MEDS ORDERED: Mag Hydrox/Al Hydrox/Simeth 30 ML UDC PO PRN (10:51)
[2017-09-08] MEDS: clonazePAM 1 MG TABLET PO PRN (11:10)
[2017-09-08] MEDS: Azithromycin 500 MG in D5% in Water 250 ML IVPB SCH (11:10)
[2017-09-08] MEDS ORDERED: Lactulose Oral Soln 20 GM/30 ML UDC PO PRN (12:36)
--- NOTE | 2017-09-08 15:26 | Electrocardiograph Report ---
[address] [place] [address] Test Date: 2017-09-07 Pat Name: Claire Lynch Department: 114 Room: [facility] Gender: F Pecan Grower: : 1955 Requested By: Ines Velasco Order Number: [id number] Reading MD: Amada Rosenthal Measurements Intervals [place] Rate: 96 P: 59 OK: 164 QRS: 26 QRSD: 89 T: 13 QT: 383 QTc: 437 Interpretive Statements SINUS RHYTHM LOW QRS VOLTAGE IN PRECORDIAL LEADS ANTEROSEPTAL MYOCARDIAL INFARCTION, PROBABLY OLD Electronically Signed On 09-08-2017 15:24:33 EST by Amada Rosenthal
[2017-09-08] MEDS: ARIPiprazole 10 MG TABLET PO SCH (20:43)
[2017-09-08] MEDS: Nitroglycerin 0.4 MG TAB.SUBL SL PRN (20:44)
[2017-09-09] MEDS: Ipratropium/Albuterol Neb 3 ML IH SCH ×3 (00:11→07:53)
[2017-09-09] MEDS: Gabapentin 400 MG CAPSULE PO SCH ×2 (00:44→09:02)
[2017-09-09] MEDS: *HR* OxyCODONE/APAP 5/325 TABLET PO PRN (02:07)
[2017-09-09 04:44] LABS: Basophils # 0.1 K/mcL (0.0-0.2); Basophils % 0.6 %; Eosinophils # 0.2 K/mcL (0.0-0.6); Eosinophils % 1.7 %; Hematocrit 32.9 % (35.3-44.9); Hemoglobin 9.8 g/dL (11.5-15.4); Immature Granulocytes % 1.4 % (0-4); Lymphocytes # 3.4 K/mcL (0.6-4.6); Mean Corpuscular HGB Conc 29.8 g/dL (31.6-35.5); Mean Corpuscular Hemoglobin 25.5 pg (28.0-33.3); Mean Corpuscular Volume 85.5 fL (83.0-100.0); Mean Platelet Volume 11.3 fL (9.4-12.4); Monocytes # 0.6 K/mcL (0.0-1.3); Neutrophils # 5.4 K/mcL (1.6-8.9); Nucleated Red Blood Cells 0.4 /100 WBC (0); Platelet Count 257 K/mcL (140-400); Red Blood Count 3.85 M/mcL (3.82-4.97); Red Cell Distribution Width 16.1 % (11.5-14.5); Segmented Neutrophils % 55.3 %
[2017-09-09 05:04] LABS: BUN/Creatinine Ratio 40 (6-26); Blood Urea Nitrogen 31 mg/dL (6-20); Calcium 8.6 mg/dL (8.6-10.3); Carbon Dioxide 36 mEq/L (23-29); Chloride 96 mEq/L (98-107); Glucose 212 mg/dL (70-105); Osmolality,Calculated 301 (280-300); Potassium 3.4 mEq/L (3.5-5.1); Sodium 139 mEq/L (136-145); eGFR For African Americans > 60 (> 60); eGFR For Non-African Americans > 60 (> 60)
[2017-09-09] MEDS: Budesonide/Formoterol 160/4.5 MDI IH SCH (07:53)
[2017-09-09 07:58] VITALS: BP 106/67
[2017-09-09] MEDS: Bumetanide 1 MG TABLET PO SCH (08:54)
[2017-09-09] MEDS ORDERED: predniSONE 20 MG TABLET PO SCH (09:00)
[2017-09-09] MEDS: Fenofibrate 54 MG TABLET PO SCH (09:03)
[2017-09-09] MEDS: Isosorbide MONOnitrate (24 HR) 60 MG TAB.ER.24H PO SCH (09:03)
[2017-09-09] MEDS: amLODIPine 5 MG TABLET PO SCH (09:03)
[2017-09-09] MEDS: Metoprolol XL (24 HR) Succ 50 MG TAB.ER.24H PO SCH (09:04)
[2017-09-09] MEDS: Aspirin 81 MG TAB.CHEW PO SCH (09:04)
[2017-09-09] MEDS: Magnesium Oxide 400 MG TABLET PO SCH (09:04)
[2017-09-09] MEDS: cefTRIAXone 1,000 MG in Water for inj. (sterile) 20 ML 10 ML IVPB SCH (09:05)
[2017-09-09] MEDS: Insulin DETEMIR 100 UNIT/ML X5UNITS SQ SCH (09:05)
[2017-09-09] MEDS: Insulin LISPRO 300 UNITS/3 ML VIAL SQ SCH (09:06)
[2017-09-09] MEDS: clonazePAM 1 MG TABLET PO PRN (09:11)
--- NOTE | 2017-09-09 09:13 | Discharge Summary ---
<Rickie Chapin - Last Filed: 09/09/17 09:46> Date of Encounter: 09/09/17 Time of Encounter: 09:12 - Discharge Diagnosis (1) COPD exacerbation Priority: Primary Status: Acute (2) Acute bronchitis Priority: Primary Status: Acute Qualifiers: Bronchitis organism: unspecified organism Qualified Code(s): J20.9 - Acute bronchitis, unspecified (3) Atypical chest pain Priority: Primary Status: Chronic (4) Acute and chronic respiratory failure with hypoxia Priority: Primary Status: Resolved (5) Chronic venous stasis dermatitis of both lower extremities Priority: Secondary Status: Chronic (6) Type 2 diabetes mellitus Priority: Secondary Status: Chronic 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 mellitus complication status: with neurologic complications Diabetes mellitus complication detail: with polyneuropathy Diabetes mellitus watermaster insulin use: with watermaster use Qualified Code(s): E11.42 - Type 2 diabetes mellitus with diabetic polyneuropathy; Z79.4 - prison (current) use of insulin; Z79.4 - prison (current) use of insulin; Z79.4 - local intermodal truck driver ( current) use of insulin; 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 (7) Chronic diastolic CHF (congestive heart failure) Priority: Secondary Status: Chronic (8) HTN (hypertension) Priority: Secondary Status: Chronic Qualifiers: Hypertension type: essential hypertension Qualified Code(s): I10 - Essential (primary) hypertension (9) Hyperlipidemia Priority: Secondary Status: Chronic Qualifiers: Hyperlipidemia type: mixed hyperlipidemia Qualified Code(s): E78.2 - Mixed hyperlipidemia (10) GERD (gastroesophageal reflux disease) Priority: Secondary Status: Chronic Qualifiers: Esophagitis presence: without esophagitis Qualified Code(s): K21.9 - Gastro -esophageal reflux disease without esophagitis (11) Anxiety Priority: Secondary Status: Chronic (12) Depression Priority: Secondary Status: Chronic Qualifiers: Depression Type: major depressive disorder Major depression recurrence: recurrent Active/Remission status: in partial remission Qualified Code(s): F33.41 - Major depressive disorder, recurrent, in partial remission (13) Morbid obesity with BMI of 45.0-49.9, adult Priority: Secondary Status: Chronic (14) Lung nodule seen on imaging study Priority: Secondary Status: Chronic (15) Constipation Priority: Secondary Status: Chronic Qualifiers: Constipation type: unspecified constipation type Qualified Code(s): K59.00 - Constipation, unspecified (16) Dependence on continuous supplemental oxygen Priority: Secondary Status: Acute (17) DVT prophylaxis Priority: Secondary Status: Acute - Discharge Medications Prescriptions: Amoxicillin/Clavulanate [Augmentin] 875 mg PO BIDWM 5 Days #10 tablet predniSONE [PredniSONE] 40 mg PO DAILY #5 tablet Roflumilast [Daliresp] 500 mcg PO DAILY #30 tablet Home Medications: Budesonide/Formoterol 160/4.5 [Symbicort] 2 puff IH BIDR 04/21/15 [History] Levothyroxine [Synthroid] 100 mcg PO QAM 04/21/15 [History] Tiotropium [Spiriva] 18 mcg IH QAM 04/21/15 [History] metFORMIN [Glucophage] 1,000 mg PO BID 04/21/15 [History] Atorvastatin Calcium [Lipitor] 40 mg PO DAILY 02/04/16 [History] Montelukast [Singulair] 10 mg PO HS 02/04/16 [History] Oxygen 2 l NS AD PRN 03/17/16 [History] Insulin Glargine [Lantus] 80 unit SQ QPM 03/25/16 [History] Insulin Glargine [Lantus] 90 unit SQ QAM 03/25/16 [History] Albuterol Sulfate [Albuterol Inhaler] 2 puff IH Q4HR PRN 05/01/16 [History] Citalopram Hydrobromide [Citalopram HBr] 40 mg PO DAILY 05/01/16 [History] Raloxifene [Evista] 60 mg PO DAILY 05/01/16 [History] Aripiprazole [Abilify] 10 mg PO HS tablet 05/03/16 [Rx] Fenofibrate Nanocrystallized [Tricor] 145 mg PO DAILY 06/15/16 [History] Clopidogrel [Plavix] 75 mg PO QAM tablet 06/18/16 [Rx] Aspirin 81 mg PO DAILY #60 tab.chew 12/06/16 [Rx] Mag Hydrox/Al Hydrox/Simeth [Maalox] 30 ml PO Q6H PRN 30 Days oral.susp [Rx] Cholecalciferol (D-3) [Vitamin D] 1,000 unit PO DAILY 04/27/17 [History] Metoclopramide [Reglan] 10 mg PO TID 04/27/17 [History] Metoprolol XL (24 HR) Succ [Toprol Xl] 50 mg PO DAILY 04/27/17 [History] Insulin LISPRO [Humalog Kwikpen U-100] 2 - 10 unit SQ TID PRN 05/09/17 [History] clonazePAM [Klonopin] 1 mg PO DAILY PRN 05/28/17 [History] Magnesium Oxide [Mag-Ox] 400 mg PO DAILY #0 tab 05/29/17 [Rx] Bumetanide 2 mg PO BID 06/11/17 [History] Buspirone HCl [Buspar] 15 mg PO TID 06/11/17 [History] Gabapentin [Neurontin] 800 mg PO 5XD 06/11/17 [History] Omeprazole [PriLOSEC] 20 mg PO BIDAC 06/11/17 [History] Potassium Chloride 20 meq PO BID 06/11/17 [History] Tizanidine HCl [Zanaflex] 4 mg PO TID PRN 06/11/17 [History] amLODIPine [Norvasc] 2.5 mg PO DAILY 06/11/17 [History] metOLazone [Zaroxolyn] 2.5 mg PO DAILY PRN 06/11/17 [History] Isosorbide MONOnitrate (24 HR) [Imdur] 120 mg PO DAILY 06/26/17 [History] [place]-3 Fatty Acids/Fish Oil [Fish Oil 1,000 mg Softgel] 1 cap PO DAILY [History] Oxycodone HCl/Acetaminophen [Percocet 5-325 mg Tablet] 1 tab PO Q6H PRN [History] Nortriptyline [Pamelor] 25 mg PO HS 06/27/17 [History] DiphenhydraMINE [Benadryl] 25 mg PO HS 08/29/17 [History] Amoxicillin/Clavulanate [Augmentin] 875 mg PO BIDWM 5 Days #10 tablet 09/09/17 [ Rx] Roflumilast [Daliresp] 500 mcg PO DAILY #30 tablet 09/09/17 [Rx] predniSONE [PredniSONE] 40 mg PO DAILY #5 tablet 09/09/17 [Rx] Allergies/Adverse Reactions: 3 Allergy/AdvReac Type Severity Reaction Status Date / Time No Known Allergies Allergy Verified 09/06/17 05:43 Procedures/tests Complete & Pending: Procedures Performed prior 72 hours Category Date Time Status EKG [ECG 12 lead ECG] [ECG] Stat Y 09/07/17 13:47 Completed Date of admission: 09/06/17 13:48 Primary care physician: PCP NONE - Patient Status Disposition: Home, Self-Care Condition: Good Functional capacity at discharge: independent ambulation Overall status at discharge: patient is progressing back to baseline - Discharge Instructions Instructions: Acute Bronchitis (DC), COPD Exacerbation, Urban Anthropologist (GEN) Follow Up With: NONE,PCP [Primary Care Provider] - (Patient given PCP form to call and schedule appt for 2 week follow-up.) Additional Instructions: Take medications as prescribed. Continue Augmetin 875 twice per day for 5 days Continue Prednisone 40mg once per day for 5 days Started new medication Daliresp that you take once per day Continue to use your O2 2L at all times Go to scheduled follow-up appointment. PCP will need to schedule chest CT in 12 months with lung nodule found Activity as tolerated. Go to ED if symptoms return. - Diet and Activity Activity: increase activity as tolerated, wear oxygen at night Diet: diabetic diet, low salt diet Hospital course: Ms. Lynch is a 61 year old female who has background history of COPD, diastolic CHF, coronary artery disease, diabetes, hypertension, previous cardiac catheterization with 4 stents, extensive venous stasis. Patient presented to [facility] emergency room on 09/06/17 with the worsening shortness of breath which started around 2 AM in the morning. Squad was called and as per patient her oxygen saturation was extremely low and squad gave her nebulization treatment following which she started feeling better. Patient has this ongoing symptom for past 3-4 days but in last 24 hours of symptoms worsened profoundly. Patient also complains of chest pain which is nonradiating and localized worsening with the movement and relieved by rest. Patient denies abdominal pain , nausea, vomiting, dizziness and diarrhea. On arrival, chest x-ray was suggestive of a no acute processes but she has a background history of COPD. Initial blood work was unremarkable and CT chest demonstrated no acute findings but did find incidental 5.3mm lung nodule in right upper lobe. With her tobacco abuse history, she is a high risk patient and will need 12 month repeat imaging. Patient was subsequently admitted for COPD exacerbation, acute bronchitis and chest pain rule out. She was started on IV ceftriaxone and azithromycin, steroids, duonebs and supplemental oxygen. Blood cultures were neg and labwork remained unremarkable throughout her admission. Her chest pain mildly improved. Trop neg x4, No EKG changes and was on telemetry. Significant workup roughly 4 months ago and will follow-up as an outpatient. She received 3 days of IV antibiotics and will continue Augmentin for 5 more days. 3 days of steroids were given and she will continue for 5 more days. She qualified for continuous oxygen. Additionally, Daliresp was added to her COPD regimen with her history of recurrent admissions for COPD. SHe was discharged home in stable condition on 09/09/17 with adequate followup in place. All questions and concerns were addressed. - Time Spent with Patient Total time spent providing and/or coordinating discharge services: - Constitutional Vitals: Temp Pulse Resp BP Pulse Ox 97.9 F 74 16 106/67 98 09/09/17 07:53 09/09/17 07:53 09/09/17 07:56 09/09/17 07:53 09/09/17 07:56 General appearance: Present: A&O X 3, pleasant, no acute distress, answers questions appropriately - Head Head exam: Present: atraumatic, normocephalic - Eye Eye exam: Present: EOMI, normal appearance, conjuntiva pink, sclera anicteric - ENT ENT exam: Present: mucous membranes moist - Neck Neck exam general surgery: Present: supple, trachea midline - Respiratory Respiratory exam: Present: wheezes (trace). Absent: accessory muscle use, decreased breath sounds, respiratory distress, rhonchi - Cardiovascular Cardiovascular exam: Present: RRR, +S1, +S2 - GI/Abdominal GI/Abdominal exam: Present: normal bowel sounds, soft. Absent: tenderness - Extremities Exam Extremities exam: Present: warm. Absent: pedal edema, tenderness - Neurological Exam Neurological exam: Present: alert, oriented X3, no focal deficits - Psychiatric Psychiatric exam: Present: normal affect, normal mood - Skin Skin exam: Present: dry, normal color, warm. Absent: diaphoretic - VTE Documentation of Mechanical Device: Graduated compression elastic hosiery <Ines Velasco - Last Filed: 09/09/17 16:47> Date of Encounter: 09/09/17 Procedures/tests Complete & Pending: Procedures Performed prior 72 hours Category Date Time Status EKG [ECG 12 lead ECG] [ECG] Stat Y 09/07/17 13:47 Completed Date of admission: 09/06/17 13:48 Primary care physician: PCP NONE Hospital course: Ms. Lynch is a 61 year old female - Time Spent with Patient Total time spent providing and/or coordinating discharge services: - Constitutional Vitals: Temp Pulse Resp BP Pulse Ox 97.9 F 74 16 106/67 98 09/09/17 07:53 09/09/17 07:53 09/09/17 07:56 09/09/17 07:53 09/09/17 07:56 - Attending Attestation I examined this patient and my medical decision-making was reviewed with the Resident Physician Dr. Chapin. I agree with the documented findings, disposition and treatment plan as described except to the extent set forth below. Ms. Lynch is a 61 year old female who has background history of for COPD, coronary artery disease, diabetes, hypertension, previous cardiac catheterization with 4 stents, extensive venous stasis pt admitted here for acute COPD exacerbation and acute bronchitis. She denied any CP today..feeling better today Gen: A, A, O x 3 Chest: Diminished BS b/l, diffuse wheezing Heart: S1S2+ a/p 1. Acute COPD exacerbation 2. Acute purulent bronchitis - mostly bacterial 3. Acute on chronic Hypoxic resp failure Improved switched to PO Abx Augmentin cont duoneb Cont short course of PO steroids 4. Acute CP 5. h/o CAD Reviewed EKG showed more PVC's cont Metoprolol so far negative troponin She recently had LHC 4 months ago no further work needed recommend to f.u with Card as an out pt Medically stable to d/c home today
== END 2017-09-09 10:47 | disposition home or self-care (01) | DRG 190 ==
LOC: 3NENU 05:41 → EMEROO 05:41 → 3NENU 12:27 → SUATTDRO 13:48
PROVIDERS: ADMIT Hospitalist; ATTEND Family Medicine

== ENCOUNTER 2017-09-12 02:07 | Observation (INO) ==
[2017-09-12] MEDS ORDERED: Ipratropium/Albuterol Neb 3 ML IH ONE (02:10)
[2017-09-12 02:43] LABS: Basophils # 0.1 K/mcL (0.0-0.2); Basophils % 0.8 %; Eosinophils # 0.2 K/mcL (0.0-0.6); Eosinophils % 1.5 %; Immature Granulocytes % 1.5 % (0-4); Lymphocytes # 3.4 K/mcL (0.6-4.6); Lymphocytes % 26.7 %; Mean Corpuscular HGB Conc 30.6 g/dL (31.6-35.5); Mean Corpuscular Hemoglobin 25.6 pg (28.0-33.3); Mean Corpuscular Volume 83.9 fL (83.0-100.0); Mean Platelet Volume 11.4 fL (9.4-12.4); Monocytes # 0.4 K/mcL (0.0-1.3); Monocytes % 3.2 %; Neutrophils # 8.4 K/mcL (1.6-8.9); Nucleated Red Blood Cells 0.2 /100 WBC (0); Platelet Count 266 K/mcL (140-400); Red Blood Count 4.29 M/mcL (3.82-4.97); Red Cell Distribution Width 15.9 % (11.5-14.5); Segmented Neutrophils % 66.3 %
[2017-09-12 02:54] LABS: BUN/Creatinine Ratio 27 (6-26); Blood Urea Nitrogen 25 mg/dL (6-20); Calcium 9.4 mg/dL (8.6-10.3); Carbon Dioxide 29 mEq/L (23-29); Chloride 98 mEq/L (98-107); Glucose 445 mg/dL (70-105); Osmolality,Calculated 304 (280-300); Potassium 4.2 mEq/L (3.5-5.1); Sodium 135 mEq/L (136-145); eGFR For African Americans > 60 (> 60); eGFR For Non-African Americans > 60 (> 60)
[2017-09-12] MEDS ORDERED: methylPREDNISolone 125 MG/2 ML VIAL IVP ONE (03:11)
--- NOTE | 2017-09-12 03:25 | Emergency Department Note ---
START Narrative - START START: I examined this patient and my medical decision-making was reviewed with the Resident Physician. I agree with the documented findings, disposition and treatment plan as described except to the extent set forth below. Dyspnea. Concern for possible heart failure. Also thought to be hyperglycemic. We will get labs to evaluate for possible DKA. Plan to admit for further evaluation of dyspnea. Patient be placed on BiPAP. I spent greater than 35 minutes of critical care time resuscitated and is acutely ill patient suffering from dyspnea requiring BiPAP. Additionally patient was treated for symptomatic hyperglycemia. This was excluding billable procedures.
[2017-09-12 04:33] LABS: VBG HCO3 28 mEq/L (21-27); VBG PCO2 41 mmHg (41-51); VBG PH 7.45 pH Units (7.32-7.42); VBG PO2 172 mmHg (25-50)
[2017-09-12] MEDS ORDERED: *HR* OxyCODONE/APAP 5/325 TABLET PO ONE (04:40)
--- NOTE | 2017-09-12 04:45 | Emergency Department Note ---
Disposition Clinical Impression: COPD exacerbation, Hyperglycemia Leukocytosis Qualifiers: Leukocytosis type: unspecified Qualified Code(s): D72.829 - Elevated white blood cell count, unspecified Disposition: Admitted As Inpatient Condition: Fair Referrals: NONE,PCP [Primary Care Provider] - Forms: ED Satisfaction Letter SOB HPI - General Chief Complaint: ED Shortness of Breath/Dyspnea Stated Complaint: SOB/KAYE Time Seen by Provider: 09/12/17 02:09 Source: patient Limitations: no limitations Nursing Notes Reviewed: Yes Vital Signs Reviewed: Yes - History of Present Illness Patient with a past mental history of diabetes, COPD, CHF on 2 L of home oxygen presents for evaluation of shortness of breath. Patient had a recent hospital stay where she was treated for COPD and bronchitis. The patient was discharged and has been home but began feeling bad over the weekend. Patient states that shortness of breath got significantly worse overnight and she did not feel safe that she lives alone at home. Patient was given a breathing treatment by squad with some relief. Patient presents to the emergency department requiring 4 L of nasal cannula keeping her pulse ox at 97%. The patient continues to feel short of breath so she was placed on BiPAP. Patient describes generalized feeling of unwell. Subjective fever and chills. Cough but nonproductive. - Related Data Home Medications Medication Instructions Recorded Confirmed Budesonide/Formoterol 160/4.5 2 puff IH BIDR 04/21/15 09/06/17 [Symbicort] Levothyroxine [Synthroid] 100 mcg PO QAM 04/21/15 09/06/17 Tiotropium [Spiriva] 18 mcg IH QAM 04/21/15 09/06/17 metFORMIN [Glucophage] 1,000 mg PO BID 04/21/15 09/06/17 Atorvastatin Calcium [Lipitor] 40 mg PO DAILY 02/04/16 09/06/17 Montelukast [Singulair] 10 mg PO HS 02/04/16 09/06/17 Oxygen 2 l NS AD PRN 03/17/16 09/06/17 Insulin Glargine [Lantus] 80 unit SQ QPM 03/25/16 09/06/17 Insulin Glargine [Lantus] 90 unit SQ QAM 03/25/16 09/06/17 Albuterol Sulfate [Albuterol 2 puff IH Q4HR PRN 05/01/16 09/06/17 Inhaler] Citalopram Hydrobromide 40 mg PO DAILY 05/01/16 09/06/17 [Citalopram HBr] Raloxifene [Evista] 60 mg PO DAILY 05/01/16 09/06/17 Fenofibrate Nanocrystallized 145 mg PO DAILY 06/15/16 09/06/17 [Tricor] Cholecalciferol (D-3) [Vitamin D] 1,000 unit PO DAILY 04/27/17 09/06/17 Metoclopramide [Reglan] 10 mg PO TID 04/27/17 09/06/17 Metoprolol XL (24 HR) Succ [Toprol 50 mg PO DAILY 04/27/17 09/06/17 Xl] Insulin LISPRO [Humalog Kwikpen 2 - 10 unit SQ TID PRN 05/09/17 09/06/17 U-100] clonazePAM [Klonopin] 1 mg PO DAILY PRN 05/28/17 09/06/17 Bumetanide 2 mg PO BID 06/11/17 09/06/17 Buspirone HCl [Buspar] 15 mg PO TID 06/11/17 09/06/17 Gabapentin [Neurontin] 800 mg PO 5XD 06/11/17 09/06/17 Omeprazole [PriLOSEC] 20 mg PO BIDAC 06/11/17 09/06/17 Potassium Chloride 20 meq PO BID 06/11/17 09/06/17 Tizanidine HCl [Zanaflex] 4 mg PO TID PRN 06/11/17 09/06/17 amLODIPine [Norvasc] 2.5 mg PO DAILY 06/11/17 09/06/17 metOLazone [Zaroxolyn] 2.5 mg PO DAILY PRN 06/11/17 09/06/17 Isosorbide MONOnitrate (24 HR) 120 mg PO DAILY 06/26/17 09/06/17 [Imdur] [place]-3 Fatty Acids/Fish Oil [Fish 1 cap PO DAILY 06/26/17 09/06/17 Oil 1,000 mg Softgel] Oxycodone HCl/Acetaminophen 1 tab PO Q6H PRN 06/26/17 09/06/17 [Percocet 5-325 mg Tablet] Nortriptyline [Pamelor] 25 mg PO HS 06/27/17 09/06/17 DiphenhydraMINE [Benadryl] 25 mg PO HS 08/29/17 09/06/17 Previous Rx's Medication Instructions Recorded Aripiprazole [Abilify] 10 mg PO HS tablet 05/03/16 Clopidogrel [Plavix] 75 mg PO QAM tablet 06/18/16 Aspirin 81 mg PO DAILY #60 tab.chew 12/06/16 Mag Hydrox/Al Hydrox/Simeth 30 ml PO Q6H PRN 30 Days oral.susp 03/26/17 [Maalox] Magnesium Oxide [Mag-Ox] 400 mg PO DAILY #0 tab 05/29/17 Amoxicillin/Clavulanate [Augmentin] 875 mg PO BIDWM 5 Days #10 tablet 09/09/17 Roflumilast [Daliresp] 500 mcg PO DAILY #30 tablet 09/09/17 predniSONE [PredniSONE] 40 mg PO DAILY #5 tablet 09/09/17 Allergies Allergy/AdvReac Type Severity Reaction Status Date / Time No Known Allergies Allergy Verified 09/06/17 05:43 Review of Systems: CONSTITUTIONAL: Generalized malaise, chills, weakness and fatigue HEENT: Eyes: No visual changes. Ears, Nose, Throat: No hearing loss, difficulty talking or unable to swallow. SKIN: No rash or itching. CARDIOVASCULAR: No chest pain, chest pressure or chest discomfort. No palpitations or edema. RESPIRATORY: Shortness of breath with cough but no sputum production GASTROINTESTINAL: No anorexia, nausea, vomiting or diarrhea. No abdominal pain or blood. GENITOURINARY: No burning on urination or hematuria. NEUROLOGICAL: No headache, dizziness, syncope, paralysis, ataxia, numbness or tingling in the extremities. No change in bowel or bladder control. MUSCULOSKELETAL: No muscle pain, back pain, joint pain or stiffness. 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 Cardiac: Regular rate and rhythm, no murmurs, rubs or gallops Abdomen: soft, nontender, nondistended; no guarding, rebound, or tenderness to percussion Musculoskeletal: Calves symmetric, nontender, no palpable cord Skin: No rash, normal skin tone Neuro: Alert and Oriented to person, place, and time; No focal deficit, CN 2-12 symmetric and intact - General Limitations: no limitations General appearance: alert Course - Reevaluation(s) Reevaluation #1: The patient's presenting symptoms are complex. She does have some upper airway wheezing but concern for rales at the bases. Chest x-ray does not specify CHF. BNP is not elevated. Patient has had improvement with BiPAP. The patient is negative for influenza. Patient does have a significantly elevated glucose. VBG is negative for DKA. The patient had a recent CTA of her chest 6 days ago that was negative for PE. The patient will be admitted for COPD exacerbation and hyperglycemia. - Consultations Consultation #1: Discussed with hospitalist, . Patient accepted for admission. Vital Signs Temperature 97.7 F 09/12/17 02:08 Pulse Rate 108 09/12/17 02:08 Respiratory Rate 26 09/12/17 02:08 Blood Pressure 141/83 09/12/17 02:08 O2 Sat by Pulse Oximetry 91 09/12/17 02:08 Temperature 97.7 F 09/12/17 02:08 Pulse Rate 105 09/12/17 04:05 Respiratory Rate 16 09/12/17 04:05 Blood Pressure 132/69 09/12/17 04:05 O2 Sat by Pulse Oximetry 97 09/12/17 04:05 Oxygen Delivery Oxygen Delivery Nasal Cannula Shortness of Breath/Dyspnea - Medical Records Medical records reviewed: Yes I reviewed the patient's medical records. - Lab Data Lab results reviewed: Yes I reviewed the patient's lab results. Result diagrams: 09/12/17 02:27 09/12/17 02:27 Lab Results 09/12/17 09/12/17 09/12/17 Range/Units 02:27 02:27 02:27 WBC 12.7 H (4.3-11.1) K/mcL RBC 4.29 (3.82-4.97) M/mcL Hgb 11.0 L (11.5-15.4) g/dL Hct 36.0 (35.3-44.9) % MCV 83.9 (83.0-100.0) fL MCH 25.6 L (28.0-33.3) pg MCHC 30.6 L (31.6-35.5) g/dL RDW 15.9 H (11.5-14.5) % Plt Count 266 (140-400) K/mcL MPV 11.4 (9.4-12.4) fL Immature Gran % 1.5 (0-4) % Seg Neutrophils % 66.3 % Lymphocytes % 26.7 % Monocytes % 3.2 % Eosinophils % 1.5 % Basophils % 0.8 % Neutrophils # 8.4 (1.6-8.9) K/mcL Lymphocytes # 3.4 (0.6-4.6) K/mcL Monocytes # 0.4 (0.0-1.3) K/mcL Eosinophils # 0.2 (0.0-0.6) K/mcL Basophils # 0.1 (0.0-0.2) K/mcL Nucleated RBCs/100 WBC 0.2 H (0) /100 WBC VBG pH (7.32-7.42) pH Units VBG pCO2 (41-51) mmHg VBG pO2 (25-50) mmHg VBG HCO3 (21-27) mEq/L Sodium 135 L (136-145) mEq/L Potassium 4.2 (3.5-5.1) mEq/L Chloride 98 (98-107) mEq/L Carbon Dioxide 29 (23-29) mEq/L BUN 25 H (6-20) mg/dL Creatinine 0.93 (0.60-1.20) mg/dL Est GFR ( Amer) > 60 (> 60) Est GFR (Non-Af Amer) > 60 (> 60) BUN/Creatinine Ratio 27 H (6-26) Glucose 445 H (70-105) mg/dL Calculated Osmolality 304 H (280-300) Lactic Acid 2.1 (0.5-2.2) mmol/L Calcium 9.4 (8.6-10.3) mg/dL Troponin I (< 0.04) ng/mL B-Natriuretic Peptide (Less than 100) pg/mL Beta-Hydroxybutyric Acd (0.02-0.27) mmol/L 09/12/17 09/12/17 09/12/17 Range/Units 02:27 02:27 04:19 WBC (4.3-11.1) K/mcL RBC (3.82-4.97) M/mcL Hgb (11.5-15.4) g/dL Hct (35.3-44.9) % MCV (83.0-100.0) fL MCH (28.0-33.3) pg MCHC (31.6-35.5) g/dL RDW (11.5-14.5) % Plt Count (140-400) K/mcL MPV (9.4-12.4) fL Immature Gran % (0-4) % Seg Neutrophils % % Lymphocytes % % Monocytes % % Eosinophils % % Basophils % % Neutrophils # (1.6-8.9) K/mcL Lymphocytes # (0.6-4.6) K/mcL Monocytes # (0.0-1.3) K/mcL Eosinophils # (0.0-0.6) K/mcL Basophils # (0.0-0.2) K/mcL Nucleated RBCs/100 WBC (0) /100 WBC VBG pH (7.32-7.42) pH Units VBG pCO2 (41-51) mmHg VBG pO2 (25-50) mmHg VBG HCO3 (21-27) mEq/L Sodium (136-145) mEq/L Potassium (3.5-5.1) mEq/L Chloride (98-107) mEq/L Carbon Dioxide (23-29) mEq/L BUN (6-20) mg/dL Creatinine (0.60-1.20) mg/dL Est GFR ( Amer) (> 60) Est GFR (Non-Af Amer) (> 60) BUN/Creatinine Ratio (6-26) Glucose (70-105) mg/dL Calculated Osmolality (280-300) Lactic Acid (0.5-2.2) mmol/L Calcium (8.6-10.3) mg/dL Troponin I < 0.03 (< 0.04) ng/mL B-Natriuretic Peptide 24 (Less than 100) pg/mL Beta-Hydroxybutyric Acd 0.02 (0.02-0.27) mmol/L 09/12/17 Range/Units 04:28 WBC (4.3-11.1) K/mcL RBC (3.82-4.97) M/mcL Hgb (11.5-15.4) g/dL Hct (35.3-44.9) % MCV (83.0-100.0) fL MCH (28.0-33.3) pg MCHC (31.6-35.5) g/dL RDW (11.5-14.5) % Plt Count (140-400) K/mcL MPV (9.4-12.4) fL Immature Gran % (0-4) % Seg Neutrophils % % Lymphocytes % % Monocytes % % Eosinophils % % Basophils % % Neutrophils # (1.6-8.9) K/mcL Lymphocytes # (0.6-4.6) K/mcL Monocytes # (0.0-1.3) K/mcL Eosinophils # (0.0-0.6) K/mcL Basophils # (0.0-0.2) K/mcL Nucleated RBCs/100 WBC (0) /100 WBC VBG pH 7.45 H (7.32-7.42) pH Units VBG pCO2 41 (41-51) mmHg VBG pO2 172 H (25-50) mmHg VBG HCO3 28 H (21-27) mEq/L Sodium (136-145) mEq/L Potassium (3.5-5.1) mEq/L Chloride (98-107) mEq/L Carbon Dioxide (23-29) mEq/L BUN (6-20) mg/dL Creatinine (0.60-1.20) mg/dL Est GFR ( Amer) (> 60) Est GFR (Non-Af Amer) (> 60) BUN/Creatinine Ratio (6-26) Glucose (70-105) mg/dL Calculated Osmolality (280-300) Lactic Acid (0.5-2.2) mmol/L Calcium (8.6-10.3) mg/dL Troponin I (< 0.04) ng/mL B-Natriuretic Peptide (Less than 100) pg/mL Beta-Hydroxybutyric Acd (0.02-0.27) mmol/L - Radiology Data Radiology results reviewed: Yes I reviewed the patient's radiology results. - EKG Data EKG attestation: Yes I reviewed and interpreted this EKG. EKG results narrative: EKG shows sinus tachycardia with ventricular rate of 108. PA interval 152. QRS 77. QTC 405. Patient has no significant ST elevations or depressions. EKG compared to previous of 09/07/17 with no significant change.
[2017-09-12] MEDS ORDERED: Insulin Human Regular 10 UNIT in 0.9 % Sodium Chloride 10 ML IV ONE (04:46)
[2017-09-12] MEDS: 0.9 % Sodium Chloride 1,000 ML IVC ONE ×2 (05:00→05:24)
[2017-09-12] MEDS ORDERED: Ondansetron 4 MG/2 ML VIAL IVP PRN (05:25)
[2017-09-12] MEDS ORDERED: Naloxone 0.4 MG/ML INJ IVP PRN (05:25)
[2017-09-12] MEDS ORDERED: Furosemide 20 MG/2 ML VIAL IVP ONE (05:29)
[2017-09-12] MEDS ORDERED: Ipratropium/Albuterol Neb 3 ML IH PRN (05:31)
[2017-09-12] MEDS ORDERED: Dextrose Gel 15 GM/37.5 ML TUBE PO PRN ×2 (05:32)
[2017-09-12] MEDS ORDERED: D5% in Water 1,000 ML IVC PRN (05:32)
[2017-09-12] MEDS ORDERED: *HR* Dextrose 50 % in Water (Syg) 50 ML SYRINGE IVP PRN (05:32)
--- NOTE | 2017-09-12 05:40 | Internal Med History&Physical ---
Date of Encounter: 09/12/17 Time of Encounter: 05:05 Assessment and Plan (1) Acute exacerbation of chronic obstructive pulmonary disease (COPD) Current visit: Yes Status: Acute Continue systemic steroids, bronchodilator support O2 supplementation bipap support as needed monitor O2 saturation, goal O2 sat: 88-92% (2) Type 2 diabetes mellitus Current visit: No Status: Chronic Noted to be hyperglycemic upon arrival received insulin coverage and fluids in ER will hold oral antihyperglycemic agents high dose insulin sliding scale algorithm monitor FS and BG ADA diet 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 mellitus complication status: with neurologic complications Diabetes mellitus complication detail: with polyneuropathy 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 transplanted heart: [place] heart Associated angina: with stable angina Qualified Code(s): I25.118 - Atherosclerotic heart disease of [place] coronary artery with other forms of angina pectoris (4) Chronic diastolic CHF (congestive heart failure) Current visit: No Status: Chronic Pt noted to be in volume overload after receiving the fluid bolus in ER will give one time dose of lasix 20mg IV and closely monitor (5) DVT prophylaxis Current visit: No Status: Acute Heparin SQ (6) HTN (hypertension) Current visit: No Status: Chronic BP within acceptable range continue home meds after verification Qualifiers: Hypertension type: essential hypertension Qualified Code(s): I10 - Essential (primary) hypertension (7) Hyperlipidemia Current visit: No Status: Chronic Qualifiers: Hyperlipidemia type: unspecified Qualified Code(s): E78.5 - Hyperlipidemia , unspecified (8) Morbid obesity with BMI of 40.0-44.9, adult Current visit: Yes Status: Acute Internal Medicine - H&P: HPI Chief complaint: shortness of breath Admitted From: Home Plans for Post Hospital Care: Home History of present illness: Ms. Lynch is a 61 year old female with PMH Of COPD on LTOT, Diastolic CHF, CAD , DM, HTN, s/p PCI with HEATHER who presented to the ER for evaluation of shortness of breath. Pt was discharged from [facility] on 09/09/17 after being treated for COPD exacerbation and bronchitis. She reported of feeling short of breath since Tuesday, requiring more than her baseline home oxygen. Reports of breathing worsening over the weekend and since she lives alone and felt unsafe, she decided to call EMS. She was saturating 97% on 4L, her baseline home O2 is 2L. She was found to be hyperglycemic in the ER and had received a 1L of fluid bolus prior to my evaluation. Pt was noted to be saturating well on bipap support but noted to have bibasilar crackles. Reported of feeling better since arrival to the ER. Denied any fever or chills. Social hx: Former smoker, quit 14months ago Past Med Surg Social Fam HX - Past Medical History Medical history: arthritis, CHF, COPD, coronary artery disease, diabetes, GERD, hyperlipidemia, hypertension, osteoporosis, renal disease, thyroid disease, TIA , venous stasis, other Psychiatric history: anxiety, bipolar, depression, panic disorder - Past Surgical History Surgical History: angioplasty/stent, , cholecystectomy, hysterectomy - Social History Smoking Status: Former smoker Smokeless Tobacco Status: No Alcohol use: none Drug use: none - Family History Brother Adopted: No Family Member Ethnicity: Non- Living Status: Hx Family Cardiac Disorders: Yes Father Adopted: No Family Member Ethnicity: Non- Living Status: Hx Family Cardiac Disorders: Yes (HD, HLD, HTN, VA, Triple Bypass) Hx Family Neurologic Disorders: Yes (Dementia) Mother Adopted: No Family Member Ethnicity: Non- Living Status: Hx Family Cardiac Disorders: Yes (VA, HTN, HLD, Strokes x5) Hx Family Respiratory Disorders: No Hx Family Cancer: No Hx Family GI Disorders: No Hx Family Endocrine Disorder: Yes (DM) Hx Family Neuromuscular Disorders: No Hx Family Neurologic Disorders: Yes (Strokes) Hx Family HEENT Disorders: No Hx Family Autoimmune Disorders: No Internal Medicine - H&P: Meds Budesonide/Formoterol 160/4.5 [Symbicort] 2 puff IH BIDR 04/21/15 [History] Levothyroxine [Synthroid] 100 mcg PO QAM 04/21/15 [History] Tiotropium [Spiriva] 18 mcg IH QAM 04/21/15 [History] metFORMIN [Glucophage] 1,000 mg PO BID 04/21/15 [History] Atorvastatin Calcium [Lipitor] 40 mg PO DAILY 02/04/16 [History] Montelukast [Singulair] 10 mg PO HS 02/04/16 [History] Oxygen 2 l NS AD PRN 03/17/16 [History] Insulin Glargine [Lantus] 80 unit SQ QPM 03/25/16 [History] Insulin Glargine [Lantus] 90 unit SQ QAM 03/25/16 [History] Albuterol Sulfate [Albuterol Inhaler] 2 puff IH Q4HR PRN 05/01/16 [History] Citalopram Hydrobromide [Citalopram HBr] 40 mg PO DAILY 05/01/16 [History] Raloxifene [Evista] 60 mg PO DAILY 05/01/16 [History] Aripiprazole [Abilify] 10 mg PO HS tablet 05/03/16 [Rx] Fenofibrate Nanocrystallized [Tricor] 145 mg PO DAILY 06/15/16 [History] Clopidogrel [Plavix] 75 mg PO QAM tablet 06/18/16 [Rx] Aspirin 81 mg PO DAILY #60 tab.chew 12/06/16 [Rx] Mag Hydrox/Al Hydrox/Simeth [Maalox] 30 ml PO Q6H PRN 30 Days oral.susp [Rx] Cholecalciferol (D-3) [Vitamin D] 1,000 unit PO DAILY 04/27/17 [History] Metoclopramide [Reglan] 10 mg PO TID 04/27/17 [History] Metoprolol XL (24 HR) Succ [Toprol Xl] 50 mg PO DAILY 04/27/17 [History] Insulin LISPRO [Humalog Kwikpen U-100] 2 - 10 unit SQ TID PRN 05/09/17 [History] clonazePAM [Klonopin] 1 mg PO DAILY PRN 05/28/17 [History] Magnesium Oxide [Mag-Ox] 400 mg PO DAILY #0 tab 05/29/17 [Rx] Bumetanide 2 mg PO BID 06/11/17 [History] Buspirone HCl [Buspar] 15 mg PO TID 06/11/17 [History] Gabapentin [Neurontin] 800 mg PO 5XD 06/11/17 [History] Omeprazole [PriLOSEC] 20 mg PO BIDAC 06/11/17 [History] Potassium Chloride 20 meq PO BID 06/11/17 [History] Tizanidine HCl [Zanaflex] 4 mg PO TID PRN 06/11/17 [History] amLODIPine [Norvasc] 2.5 mg PO DAILY 06/11/17 [History] metOLazone [Zaroxolyn] 2.5 mg PO DAILY PRN 06/11/17 [History] Isosorbide MONOnitrate (24 HR) [Imdur] 120 mg PO DAILY 06/26/17 [History] [place]-3 Fatty Acids/Fish Oil [Fish Oil 1,000 mg Softgel] 1 cap PO DAILY [History] Oxycodone HCl/Acetaminophen [Percocet 5-325 mg Tablet] 1 tab PO Q6H PRN [History] Nortriptyline [Pamelor] 25 mg PO HS 06/27/17 [History] DiphenhydraMINE [Benadryl] 25 mg PO HS 08/29/17 [History] Amoxicillin/Clavulanate [Augmentin] 875 mg PO BIDWM 5 Days #10 tablet 09/09/17 [ Rx] Roflumilast [Daliresp] 500 mcg PO DAILY #30 tablet 09/09/17 [Rx] predniSONE [PredniSONE] 40 mg PO DAILY #5 tablet 09/09/17 [Rx] 3 Allergy/AdvReac Type Severity Reaction Status Date / Time No Known Allergies Allergy Verified 09/06/17 05:43 All Systems PM: A 10-system review of systems was performed and is negative for pertinent findings except as documented above in the HPI. - Constitutional Constitutional: as per HPI - Constitutional Vitals: Temp Pulse Resp BP Pulse Ox 97.7 F 105 16 132/69 97 09/12/17 02:08 09/12/17 04:05 09/12/17 04:05 09/12/17 04:05 09/12/17 04:05 General appearance: Present: A&O X 3, morbidly obese, no acute distress - Head Head exam: Present: atraumatic, normocephalic - Eye Eye exam: Present: conjuntiva pink, sclera anicteric - Respiratory Respiratory exam: Present: decreased breath sounds, rales (bibasilar rales). Absent: respiratory distress, wheezes - Cardiovascular Cardiovascular exam: Present: RRR, +S1, +S2. Absent: diastolic murmur, gallop, rubs, systolic murmur - GI/Abdominal GI/Abdominal exam: Present: normal bowel sounds, soft, no peritoneal signs. Absent: distended, tenderness - Extremities Exam Extremities exam: Present: warm, radial pulses palpable and symmetrical (b/l LE venous stasis ). Absent: calf tenderness - Neurological Exam Neurological exam: Present: alert, oriented X3 Internal Med - H&P Results - Labs CBC & Chem 7: 09/12/17 02:27 09/12/17 02:27
[2017-09-12] MEDS: *HR* Heparin 5,000 UNIT/ML VIAL SQ SCH ×2 (06:28→17:44)
[2017-09-12] MEDS: Ipratropium/Albuterol Neb 3 ML IH SCH ×5 (07:48→23:51)
[2017-09-12] MEDS: clonazePAM 1 MG TABLET PO SCH (09:36)
[2017-09-12] MEDS: MethylPREDNISolone 40 MG/ML VIAL IVP SCH ×2 (09:40→20:20)
[2017-09-12] MEDS: Insulin LISPRO 300 UNITS/3 ML VIAL SQ SCH ×3 (09:40→17:44)
--- NOTE | 2017-09-12 11:38 | Internal Med Progress Note ---
Date of Encounter: 09/12/17 Time of Encounter: 10:20 - Assessment and plan (1) Acute exacerbation of chronic obstructive pulmonary disease (COPD) Current Visit: Yes Status: Acute Assessment and plan: Patient presented with increasing shortness of breath over the weekend at home. Her clear patient is in no distress. Chest x-rays negative for acute cardiopulmonary disease. Continue steroids, bronchodilators, O2 and titrate to maintain sats greater than 92%. BiPAP when necessary O2 sats with vitals. Chest X-Ray 09/12/17 02:10 IMPRESSION: 1. No acute cardiopulmonary disease. D/ / Bert Herzog MD / Bert Herzog MD Interpreting Provider: Bert Herzog MD (2) Anxiety and depression Current Visit: Yes Status: Chronic Assessment and plan: Chronic. Continue home medications. (3) Chronic respiratory failure with hypoxia Current Visit: Yes Status: Chronic Assessment and plan: Chronic. Patient wears home O2. Currently requiring 3 L, above her normal baseline demand. Monitor stats with vitals Titrate as needed to maintain sats greater than 92%. (4) Chronic diastolic CHF (congestive heart failure) Current Visit: Yes Status: Chronic Assessment and plan: Patient was given fluid bolus in the emergency department was found to be in overload on admission. She received 20 mg of Lasix IV. She appears to be euvolemic at this time. BNP is within normal limits. Lungs are clear diminished. She has not had any peripheral edema. Continue telemetry O2 as above. (5) CAD (coronary artery disease) Current Visit: Yes Status: Chronic Assessment and plan: Patient denies chest pain. At this time, home medications have not been verified. Will continue home medications once they are verified. Continue telemetry Qualifiers: Coronary Disease-Associated Artery/Lesion type: [place] artery [place] vs. transplanted heart: [place] heart Associated angina: with stable angina Qualified Code(s): I25.118 - Atherosclerotic heart disease of [place] coronary artery with other forms of angina pectoris (6) HTN (hypertension) Current Visit: Yes Status: Chronic Assessment and plan: Chronic. Well controlled. Continue home medications. Vital signs as per admission orders. Qualifiers: Hypertension type: essential hypertension Qualified Code(s): I10 - Essential (primary) hypertension (7) Chronic venous stasis dermatitis of both lower extremities Current Visit: Yes Status: Chronic Assessment and plan: Chronic. (8) Morbid obesity with BMI of 45.0-49.9, adult Current Visit: Yes Status: Chronic Assessment and plan: Chronic. Continue to encourage lifestyle modifications. (9) Type 2 diabetes mellitus Current Visit: Yes Status: Chronic Assessment and plan: Uncontrolled. A1c is 9.0%. Continue to encourage diet and exercise Continue sliding scale insulin and Accu-Cheks before meals at bedtime Diabetic diet 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 mellitus complication status: with neurologic complications Diabetes mellitus complication detail: with polyneuropathy Diabetes mellitus terminal manager insulin use: with terminal manager use Qualified Code(s): E11.42 - Type 2 diabetes mellitus with diabetic polyneuropathy; 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; Z79.4 - half-way (current) use of insulin; Z79.4 - half-way ( current) use of insulin; 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 (10) DVT prophylaxis Current Visit: Yes Status: Acute Assessment and plan: Heparin subcutaneous daily. - Time Spent With Patient less than 15 minutes - Subjective Interval history: Pt was seen and assessed at bedside at 1020. She denies chest pain, headache, n/ v/d, or diaphoresis. She states that she was not able to function at home and continued to become increasingly SOB, was requiring more than baseline home 02 use. She denies productive cough. - Constitutional Vitals: Temp Pulse Resp BP Pulse Ox 98.2 F 101 18 155/78 94 09/12/17 11:12 09/12/17 11:12 09/12/17 11:12 09/12/17 11:12 09/12/17 11:12 General appearance: Present: cooperative, A&O X 3, morbidly obese, pleasant, no acute distress, answers questions appropriately - Head Head exam: Present: atraumatic, normal inspection, normocephalic - Eye Eye exam: Present: normal appearance, conjuntiva pink, sclera anicteric - Neck Neck exam general surgery: Present: supple, trachea midline. Absent: lymphadenopathy, tenderness - Respiratory Respiratory exam: Present: decreased breath sounds, CTAB. Absent: accessory muscle use, chest wall tenderness, rales, respiratory distress, rhonchi, wheezes - Cardiovascular Cardiovascular exam: Present: RRR, +S1, +S2. Absent: diastolic murmur, gallop, rubs, systolic murmur - GI/Abdominal GI/Abdominal exam: Present: normal bowel sounds, soft. Absent: distended, hepatomegaly, tenderness - Extremities Exam Extremities exam: Present: tenderness, warm, radial pulses palpable and symmetrical. Absent: calf tenderness, cyanotic, normal inspection, pedal edema - Neurological Exam Neurological exam: Present: alert, oriented X3, no focal deficits. Absent: altered, facial droop, speech deficit - Skin Skin exam: Present: dry, intact, normal color, warm. Absent: rash Internal Medicine: Result - Labs CBC & Chem 7: 09/12/17 02:27 09/12/17 02:27 Consult Discharge Plan - Plan Referrals: NONE,PCP [Primary Care Provider] -
[2017-09-12] MEDS ORDERED: MethylPREDNISolone 40 MG/ML VIAL IVP SCH (12:00)
[2017-09-12] MEDS ORDERED: Insulin LISPRO 300 UNITS/3 ML VIAL SQ ONE (12:57)
[2017-09-12] MEDS ORDERED: clonazePAM 1 MG TABLET PO PRN (13:39)
[2017-09-12] MEDS ORDERED: tiZANidine 4 MG TABLET PO PRN (13:39)
[2017-09-12] MEDS ORDERED: metOLazone 2.5 MG TABLET PO PRN (13:39)
--- NOTE | 2017-09-12 13:43 | Electrocardiograph Report ---
[place] [id number] Test Date: 2017-09-12 Pat Name: Claire Lynch Department: 104 Room: 3B64 Gender: F Qm Consultant: TEE : 1955 Requested By: Tommy Neri Order Number: [id number] Reading MD: Amada Rosenthal Measurements Intervals [place] Rate: 108 P: 30 AR: 152 QRS: 18 QRSD: 77 T: 15 QT: 342 QTc: 405 Interpretive Statements SINUS TACHYCARDIA LOW QRS VOLTAGE IN PRECORDIAL LEADS [QRS DEFLECTION < 1.0 mV IN CHEST LEADS] POSSIBLE ANTERIOR MYOCARDIAL INFARCTION [30 ms Q WAVE IN V3/V4, OR R < 0.2 mV IN V4], PROBABLY OLD ABNORMAL RHYTHM ECG Electronically Signed On 09-12-2017 13:41:31 EST by Amada Rosenthal
[2017-09-12] MEDS: Isosorbide MONOnitrate (24 HR) 60 MG TAB.ER.24H PO SCH (14:26)
[2017-09-12] MEDS: Metoprolol XL (24 HR) Succ 50 MG TAB.ER.24H PO SCH (14:26)
[2017-09-12] MEDS: Gabapentin 400 MG CAPSULE PO SCH ×2 (17:43→20:21)
[2017-09-12] MEDS: Budesonide/Formoterol 160/4.5 MDI IH SCH (19:57)
[2017-09-12] MEDS: Bumetanide 1 MG TABLET PO SCH (20:53)
[2017-09-12] MEDS ORDERED: ARIPiprazole 10 MG TABLET PO SCH (21:00)
[2017-09-12] MEDS ORDERED: Insulin LISPRO 300 UNITS/3 ML VIAL SQ SCH (21:00)
[2017-09-12] MEDS: traMADol 50 MG TABLET PO PRN (23:53)
[2017-09-13 00:25] LABS: Basophils # 0.1 K/mcL (0.0-0.2); Basophils % 0.3 %; Eosinophils % 0.1 %; Hemoglobin 10.2 g/dL (11.5-15.4); Immature Granulocytes % 1.4 % (0-4); Lymphocytes # 1.4 K/mcL (0.6-4.6); Lymphocytes % 9.2 %; Mean Corpuscular Hemoglobin 25.2 pg (28.0-33.3); Mean Platelet Volume 11.4 fL (9.4-12.4); Monocytes # 0.4 K/mcL (0.0-1.3); Monocytes % 2.9 %; Neutrophils # 12.6 K/mcL (1.6-8.9); Nucleated Red Blood Cells 0.1 /100 WBC (0); Platelet Count 296 K/mcL (140-400); Red Blood Count 4.05 M/mcL (3.82-4.97); Red Cell Distribution Width 15.9 % (11.5-14.5); Segmented Neutrophils % 86.1 %
[2017-09-13 00:43] LABS: BUN/Creatinine Ratio 29 (6-26); Blood Urea Nitrogen 23 mg/dL (6-20); Calcium 9.8 mg/dL (8.6-10.3); Carbon Dioxide 29 mEq/L (23-29); Chloride 99 mEq/L (98-107); Glucose 309 mg/dL (70-105); Magnesium 1.9 mg/dL (1.6-2.6); Osmolality,Calculated 297 (280-300); Phosphorous 2.7 mg/dL (2.7-4.5); Sodium 136 mEq/L (136-145); eGFR For African Americans > 60 (> 60); eGFR For Non-African Americans > 60 (> 60)
[2017-09-13] MEDS: Gabapentin 400 MG CAPSULE PO SCH ×3 (03:00→12:09)
[2017-09-13] MEDS: Ipratropium/Albuterol Neb 3 ML IH SCH ×3 (03:47→11:45)
[2017-09-13] MEDS: *HR* Heparin 5,000 UNIT/ML VIAL SQ SCH (06:43)
[2017-09-13] MEDS: Budesonide/Formoterol 160/4.5 MDI IH SCH (07:40)
[2017-09-13] MEDS: clonazePAM 1 MG TABLET PO SCH (08:34)
[2017-09-13] MEDS: Metoprolol XL (24 HR) Succ 50 MG TAB.ER.24H PO SCH (08:35)
[2017-09-13] MEDS: Bumetanide 1 MG TABLET PO SCH (08:35)
[2017-09-13] MEDS: Isosorbide MONOnitrate (24 HR) 60 MG TAB.ER.24H PO SCH (08:35)
[2017-09-13] MEDS: traMADol 50 MG TABLET PO PRN (08:36)
[2017-09-13] MEDS: Insulin LISPRO 300 UNITS/3 ML VIAL SQ SCH ×2 (08:37→12:08)
[2017-09-13] MEDS ORDERED: Tiotropium 18 MCG inhalation IH SCH (09:00)
[2017-09-13] MEDS ORDERED: Aspirin 81 MG TAB.CHEW PO SCH (09:00)
[2017-09-13] MEDS ORDERED: OMEGA PO SCH (09:00)
[2017-09-13] MEDS ORDERED: FISH OIL PO SCH (09:00)
[2017-09-13] MEDS ORDERED: amLODIPine 5 MG TABLET PO SCH (09:00)
[2017-09-13] MEDS ORDERED: Cholecalciferol (D-3) 1,000 UNIT TABLET PO SCH (09:00)
[2017-09-13] MEDS ORDERED: Fenofibrate 54 MG TABLET PO SCH (09:00)
[2017-09-13] MEDS ORDERED: FATTY ACIDS PO SCH (09:00)
[2017-09-13] MEDS ORDERED: Magnesium Oxide 400 MG TABLET PO SCH (09:00)
[2017-09-13 11:41] VITALS: BP 120/75
[2017-09-13] MEDS: MethylPREDNISolone 40 MG/ML VIAL IVP SCH (12:08)
--- NOTE | 2017-09-13 13:35 | Discharge Summary ---
Date of Encounter: 09/13/17 Time of Encounter: 13:33 - Discharge Diagnosis (1) Acute exacerbation of chronic obstructive pulmonary disease (COPD) Priority: Primary Status: Acute (2) Anxiety and depression Priority: Secondary Status: Chronic (3) CAD (coronary artery disease) Priority: Secondary Status: Chronic Qualifiers: Coronary Disease-Associated Artery/Lesion type: [place] artery [place] vs. transplanted heart: [place] heart Associated angina: with stable angina Qualified Code(s): I25.118 - Atherosclerotic heart disease of [place] coronary artery with other forms of angina pectoris (4) Chronic diastolic CHF (congestive heart failure) Priority: Secondary Status: Chronic (5) Chronic respiratory failure with hypoxia Priority: Secondary Status: Chronic (6) Chronic venous stasis dermatitis of both lower extremities Priority: Secondary Status: Chronic (7) HTN (hypertension) Priority: Secondary Status: Chronic Qualifiers: Hypertension type: essential hypertension Qualified Code(s): I10 - Essential (primary) hypertension (8) Type 2 diabetes mellitus Priority: Secondary Status: Chronic 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 mellitus complication status: with neurologic complications Diabetes mellitus complication detail: with polyneuropathy Diabetes mellitus halfway insulin use: with buttermaker use Qualified Code(s): E11.42 - Type 2 diabetes mellitus with diabetic polyneuropathy; Z79.4 - long term care phlebotomist (current) use of insulin; Z79.4 - long term care phlebotomist (current) use of insulin; Z79.4 - long term care phlebotomist ( current) use of insulin; Z79.4 - long term care phlebotomist (current) use of insulin - Discharge Medications Prescriptions: predniSONE [PredniSONE] 40 mg PO DAILY #8 tablet Home Medications: Budesonide/Formoterol 160/4.5 [Symbicort] 2 puff IH BIDR 04/21/15 [History] Levothyroxine [Synthroid] 100 mcg PO QAM 04/21/15 [History] Tiotropium [Spiriva] 18 mcg IH QAM 04/21/15 [History] metFORMIN [Glucophage] 1,000 mg PO BID 04/21/15 [History] Atorvastatin Calcium [Lipitor] 40 mg PO DAILY 02/04/16 [History] Montelukast [Singulair] 10 mg PO HS 02/04/16 [History] Oxygen 2 l NS AD PRN 03/17/16 [History] Insulin Glargine [Lantus] 80 unit SQ QPM 03/25/16 [History] Insulin Glargine [Lantus] 90 unit SQ QAM 03/25/16 [History] Albuterol Sulfate [Albuterol Inhaler] 2 puff IH Q4HR PRN 05/01/16 [History] Citalopram Hydrobromide [Citalopram HBr] 40 mg PO DAILY 05/01/16 [History] Raloxifene [Evista] 60 mg PO DAILY 05/01/16 [History] Aripiprazole [Abilify] 10 mg PO HS tablet 05/03/16 [Rx] Fenofibrate Nanocrystallized [Tricor] 145 mg PO DAILY 06/15/16 [History] Clopidogrel [Plavix] 75 mg PO QAM tablet 06/18/16 [Rx] Aspirin 81 mg PO DAILY #60 tab.chew 12/06/16 [Rx] Mag Hydrox/Al Hydrox/Simeth [Maalox] 30 ml PO Q6H PRN 30 Days oral.susp [Rx] Cholecalciferol (D-3) [Vitamin D] 1,000 unit PO DAILY 04/27/17 [History] Metoclopramide [Reglan] 10 mg PO TID 04/27/17 [History] Metoprolol XL (24 HR) Succ [Toprol Xl] 50 mg PO DAILY 04/27/17 [History] Insulin LISPRO [Humalog Kwikpen U-100] 2 - 10 unit SQ TID PRN 05/09/17 [History] clonazePAM [Klonopin] 1 mg PO DAILY PRN 05/28/17 [History] Magnesium Oxide [Mag-Ox] 400 mg PO DAILY #0 tab 05/29/17 [Rx] Bumetanide 2 mg PO BID 06/11/17 [History] Gabapentin [Neurontin] 800 mg PO 5XD 06/11/17 [History] Omeprazole [PriLOSEC] 20 mg PO BIDAC 06/11/17 [History] Potassium Chloride 20 meq PO BID 06/11/17 [History] Tizanidine HCl [Zanaflex] 4 mg PO TID PRN 06/11/17 [History] amLODIPine [Norvasc] 2.5 mg PO DAILY 06/11/17 [History] metOLazone [Zaroxolyn] 2.5 mg PO DAILY PRN 06/11/17 [History] Isosorbide MONOnitrate (24 HR) [Imdur] 120 mg PO DAILY 06/26/17 [History] [place]-3 Fatty Acids/Fish Oil [Fish Oil 1,000 mg Softgel] 1 cap PO DAILY [History] Nortriptyline [Pamelor] 25 mg PO HS 06/27/17 [History] DiphenhydraMINE [Benadryl] 25 mg PO HS 08/29/17 [History] Amoxicillin/Clavulanate [Augmentin] 875 mg PO BIDWM 5 Days #10 tablet 09/09/17 [ Rx] Roflumilast [Daliresp] 500 mcg PO DAILY #30 tablet 09/09/17 [Rx] Buspirone HCl [Buspar] 20 mg PO BID 09/12/17 [History] predniSONE [PredniSONE] 40 mg PO DAILY #8 tablet 09/13/17 [Rx] Allergies/Adverse Reactions: 3 Allergy/AdvReac Type Severity Reaction Status Date / Time No Known Allergies Allergy Verified 09/12/17 11:25 Procedures/tests Complete & Pending: Procedures Performed prior 72 hours Category Date Time Status EKG [ECG 12 lead ECG] [ECG] Stat Y 09/12/17 23:29 Completed Date of admission: 09/12/17 05:08 Primary care physician: PCP IKE Discharging clinician: Rod Zavala - Patient Status Disposition: Home, Self-Care Condition: Fair Functional capacity at discharge: independent ambulation Overall status at discharge: patient is progressing back to baseline - Discharge Instructions Follow Up With: NONE,PCP [Primary Care Provider] - - Diet and Activity Activity: increase activity as tolerated Diet: advance to your usual diet, diabetic diet Hospital course: Ms. Lynch is a 61 year old female with PMH Of COPD on 2 Liter O2, Diastolic CHF , CAD, DM, HTN, s/p PCI with HEATHER who presented to the ER for evaluation of shortness of breath. Pt was discharged from [facility] on 09/09/17 after being treated for COPD exacerbation and bronchitis. She reported of feeling short of breath since Tuesday, requiring more than her baseline home oxygen. Reports of breathing worsening over the weekend and since she lives alone and felt unsafe, she decided to call EMS. She was saturating 97% on 4L, her baseline home O2 is 2L. She was found to be hyperglycemic in the ER and had received a 1L of fluid bolus prior to my evaluation. Pt was noted to be saturating well on bipap support but noted to have bibasilar crackles. Reported of feeling better since arrival to the ER. Denied any fever or chills. A chest x-ray showed no acute process, labs showed leukocytosis of 12.7, likely reactive. BNP was within normal limits, and troponin was negative twice, Flu A/B was negative as well. She was afebrile. She was admitted for COPD exacerbation. She was started on Solu-medrol. Oxygen was increased for goal of SpO2 88-92%. Bipap was provided as needed. No antibiotics were indicated since patient did not have signs/ symptoms consistent with bacterial infection. Patient was able to wean supplemental O2 to 2-3L nasal cannula, close to home supplemental level. She felt as she was at her baseline. Patient was discharged home in stable condition to complete 5 day steroid burst. - Time Spent with Patient Total time spent providing and/or coordinating discharge services: - Constitutional Vitals: Temp Pulse Resp BP Pulse Ox 97.9 F 79 16 120/75 97 09/13/17 11:39 09/13/17 11:39 09/13/17 11:46 09/13/17 11:39 09/13/17 11:46 General appearance: Present: cooperative, A&O X 3, morbidly obese, pleasant, no acute distress, answers questions appropriately Exam: - Head Head exam: Present: atraumatic, normal inspection, normocephalic - Eye Eye exam: Present: normal appearance, conjuntiva pink, sclera anicteric - Neck Neck exam general surgery: Present: supple, trachea midline. Absent: lymphadenopathy, tenderness - Respiratory Respiratory exam: Present: decreased breath sounds, CTAB. Absent: accessory muscle use, chest wall tenderness, rales, respiratory distress, rhonchi, wheezes - Cardiovascular Cardiovascular exam: Present: RRR, +S1, +S2. Absent: diastolic murmur, gallop, rubs, systolic murmur - GI/Abdominal GI/Abdominal exam: Present: normal bowel sounds, soft. Absent: distended, hepatomegaly, tenderness - Extremities Exam Extremities exam: Present: tenderness, warm, radial pulses palpable and symmetrical. Absent: calf tenderness, cyanotic, normal inspection, pedal edema - Neurological Exam Neurological exam: Present: alert, oriented X3, no focal deficits. Absent: altered, facial droop, speech deficit - Skin Skin exam: Present: dry, intact, normal color, warm. Absent: rash
--- NOTE | 2017-09-13 13:56 | Electrocardiograph Report ---
[place] [id number] Test Date: 2017-09-12 Pat Name: Claire Lynch Department: 113 Room: 3B64 Gender: F Email Deployment Specialist: : 1955 Requested By: Vishnu Quinn Order Number: [id number] Reading MD: Amada Rosenthal Measurements Intervals [place] Rate: 84 P: 58 [place]: 154 QRS: 18 QRSD: 91 T: 16 QT: 394 QTc: 435 Interpretive Statements SINUS RHYTHM LOW QRS VOLTAGE IN PRECORDIAL LEADS Electronically Signed On 09-13-2017 13:55:17 EST by Amada Rosenthal
== END 2017-09-13 15:04 | disposition home or self-care (01) ==
LOC: EMEROO 02:07 → 3BNU 02:07
PROVIDERS: ADMIT Internal Medicine Hematology & Oncology; ATTEND Registered Nurse

== ENCOUNTER 2017-09-19 09:50 | Observation (INO) ==
[2017-09-19] MEDS ORDERED: Ipratropium/Albuterol Neb 3 ML IH ONE (09:53)
[2017-09-19] MEDS ORDERED: methylPREDNISolone 125 MG/2 ML VIAL IVP ONE (09:53)
--- NOTE | 2017-09-19 09:59 | Emergency Department Note ---
Addendum entered and electronically signed by Brian Burger DO 09/19/17 14:15: Patient's labs did come back showing a hypokalemia due to this we gave patient 40 mEq of by mouth potassium she did well with this. Patient also seemed to be dehydrated to give her small amount of fluids. Patient was set to go to [place] but due to patient needing be on telemetry and due to hypoxia they were unable to take the patient there. That time I contacted our hospitalist here Dr. Walker agreed to admit the patient to their service. Patient is admitted in stable condition. Social work did see the patient due to her 4 visits in August 2017 with admissions so that social service can talk to her about finding better care at home and outside of the hospital. Original Note: Disposition Clinical Impression: Acute exacerbation of chronic obstructive airways disease, Morbid obesity with BMI of 40.0-44.9, adult, Dependence on continuous supplemental oxygen, Chronic diastolic CHF (congestive heart failure) Disposition: Admitted As Inpatient Condition: Fair Forms: ED Satisfaction Letter Time of Disposition: 12:14 SOB HPI - General Chief Complaint: ED Shortness of Breath/Dyspnea Stated Complaint: KAYE Time Seen by Provider: 09/19/17 09:53 Source: patient, EMS Mode of arrival: EMS Limitations: no limitations Nursing Notes Reviewed: Yes Vital Signs Reviewed: Yes - History of Present Illness 61-year-old female presents to the emergency department complaining of shortness of breath as well as headache. Patient does have history of COPD and CHF she said over the last months she has been admitted twice for COPD and CHF exacerbations. She said she has not had any changes in her medications when she was discharged she is taking them as prescribed. Patient does not use oxygen all the time at home but does have it available. She does have a CPAP machine at home that she has been trying to use at night. Said she woke up this morning with a headache and she knows she was having a hard time breathing this worried her caused her to come in. There were no recent falls or trauma. She is not on any blood thinners. Patient is not having any other complaints including fevers, chills, nausea, vomiting, neck pain, back pain, chest pain, abdominal pain, pain with urination, changes in bowel movements, pain or tingling in any arms or legs generalized weakness or changes in weight. - Related Data Home Medications Medication Instructions Recorded Confirmed Budesonide/Formoterol 160/4.5 2 puff IH BIDR 04/21/15 09/19/17 [Symbicort] Levothyroxine [Synthroid] 100 mcg PO QAM 04/21/15 09/19/17 Tiotropium [Spiriva] 18 mcg IH QAM 04/21/15 09/19/17 metFORMIN [Glucophage] 1,000 mg PO BID 04/21/15 09/19/17 Atorvastatin Calcium [Lipitor] 40 mg PO DAILY 02/04/16 09/19/17 Montelukast [Singulair] 10 mg PO HS 02/04/16 09/19/17 Oxygen 2 l NS AD PRN 03/17/16 09/19/17 Insulin Glargine [Lantus] 80 unit SQ QPM 03/25/16 09/19/17 Insulin Glargine [Lantus] 90 unit SQ QAM 03/25/16 09/19/17 Albuterol Sulfate [Albuterol 2 puff IH Q4HR PRN 05/01/16 09/19/17 Inhaler] Citalopram Hydrobromide 40 mg PO DAILY 05/01/16 09/19/17 [Citalopram HBr] Raloxifene [Evista] 60 mg PO DAILY 05/01/16 09/19/17 Fenofibrate Nanocrystallized 145 mg PO DAILY 06/15/16 09/19/17 [Tricor] Cholecalciferol (D-3) [Vitamin D] 1,000 unit PO DAILY 04/27/17 09/19/17 Metoclopramide [Reglan] 10 mg PO TID 04/27/17 09/19/17 Metoprolol XL (24 HR) Succ [Toprol 50 mg PO DAILY 04/27/17 09/19/17 Xl] Insulin LISPRO [Humalog Kwikpen 2 - 10 unit SQ TID PRN 05/09/17 09/19/17 U-100] clonazePAM [Klonopin] 1 mg PO DAILY PRN 05/28/17 09/19/17 Bumetanide 2 mg PO BID 06/11/17 09/19/17 Gabapentin [Neurontin] 800 mg PO 5XD 06/11/17 09/19/17 Omeprazole [PriLOSEC] 20 mg PO BIDAC 06/11/17 09/19/17 Potassium Chloride 20 meq PO BID 06/11/17 09/19/17 Tizanidine HCl [Zanaflex] 4 mg PO TID PRN 06/11/17 09/19/17 amLODIPine [Norvasc] 2.5 mg PO DAILY 06/11/17 09/19/17 metOLazone [Zaroxolyn] 2.5 mg PO DAILY PRN 06/11/17 09/19/17 Isosorbide MONOnitrate (24 HR) 120 mg PO DAILY 06/26/17 09/19/17 [Imdur] [place]-3 Fatty Acids/Fish Oil [Fish 1 cap PO DAILY 06/26/17 09/19/17 Oil 1,000 mg Softgel] Nortriptyline [Pamelor] 25 mg PO HS 06/27/17 09/19/17 DiphenhydraMINE [Benadryl] 25 mg PO HS 08/29/17 09/19/17 Buspirone HCl [Buspar] 20 mg PO BID 09/12/17 09/19/17 Buprenorphine [Butrans] 1 patch TD QWEEK 09/19/17 09/19/17 Tramadol HCl [Ultram] 50 mg PO TID PRN 09/19/17 09/19/17 Previous Rx's Medication Instructions Recorded Aripiprazole [Abilify] 10 mg PO HS tablet 05/03/16 Clopidogrel [Plavix] 75 mg PO QAM tablet 06/18/16 Aspirin 81 mg PO DAILY #60 tab.chew 12/06/16 Mag Hydrox/Al Hydrox/Simeth 30 ml PO Q6H PRN 30 Days oral.susp 03/26/17 [Maalox] Magnesium Oxide [Mag-Ox] 400 mg PO DAILY #0 tab 05/29/17 Roflumilast [Daliresp] 500 mcg PO DAILY #30 tablet 09/09/17 Allergies Allergy/AdvReac Type Severity Reaction Status Date / Time No Known Allergies Allergy Verified 09/19/17 09:56 Review of Systems: 10 point review of systems done and negative unless otherwise stated in history of present illness. All systems ED: reviewed and negative except as stated. Review of Systems: As Per HPI Past Medical History - Past Medical History Attestation: Yes The following information was validated with the patient. Medical history: Reports: arthritis, CHF, COPD, coronary artery disease, diabetes, GERD, hyperlipidemia, hypertension, osteoporosis, renal disease, thyroid disease, TIA, venous stasis, other Surgical history: Reports: angioplasty/stent, , cholecystectomy, hysterectomy Psychiatric history: Reports: anxiety, bipolar, depression, panic disorder [employer] history: Reports: bilateral tubal ligation - Social History Smoking Status: Former smoker Smokeless Tobacco Status: No Alcohol use: Reports: none Drug use: Reports: none Physical Exam - General Limitations: no limitations General appearance: alert, in no apparent distress - Eye Eye exam: Present: normal appearance, PERRL, EOMI - ENT ENT exam: normal exam, normal oropharynx, mucous membranes moist - Neck Neck exam: Present: normal inspection, full ROM, trachea midline - Chest Chest inspection: Present: normal inspection, symmetric chest wall rise - Respiratory Respiratory exam: Present: wheezes (Bilaterally). Absent: respiratory distress , stridor, accessory muscle use, prolonged expiratory phase - Cardiovascular Cardiovascular exam: Present: regular rate, normal rhythm, normal heart sounds - Abdominal Exam Abdominal exam: Present: soft, Non-Tender. Absent: tenderness, distention, guarding, rebound, rigidity - Extremities Exam Extremities exam: Present: normal inspection, full ROM, pedal edema (1+ pitting edema bilaterally.). Absent: tenderness - Expanded Lower Extremity Exam Neurovascular/Tendon exam: Present: normal capillary refill. Absent: pulse deficit, motor deficit, sensory deficit, tendon deficit - Back Exam Back exam: Present: normal inspection, full ROM. Absent: tenderness, CVA tenderness (R), CVA tenderness (L) - Neurological Exam Neurological exam: Present: alert, oriented X3 - Expanded Neurological Exam Patient oriented to: Present: person, place, time Speech: Present: fluid speech Cranial nerves: EOM function (II, III, IV, ): Normal, facial sensation (V): Normal, facial palsy (VII): Normal, spinal accessory function (XI): Normal, tongue deviation (XII): Normal Coma Scale Eye Opening: Spontaneous Coma Scale Motor Response: Obeys Commands Coma Scale Verbal Response: Oriented Coma Scale Total: 15 - Skin Skin exam: Present: warm, dry, intact, normal color Course Course Narrative: 61-year-old female presented to the emergency department complaining of difficulty breathing and a headache. We will get a head CT as well as chest x- ray including basic labs of CBC, BMP, BNP, lactate. We will give patient triple DuoNeb treatment as well as Solu-Medrol. Disposition pending results Vital Signs Temperature 96.9 F L 09/19/17 09:53 Pulse Rate 80 09/19/17 09:53 Respiratory Rate 22 09/19/17 09:53 Blood Pressure 143/81 09/19/17 09:53 O2 Sat by Pulse Oximetry 94 09/19/17 09:53 Temperature 96.9 F L 09/19/17 09:53 Pulse Rate 87 09/19/17 11:58 Respiratory Rate 16 09/19/17 11:58 Blood Pressure 164/119 09/19/17 11:58 O2 Sat by Pulse Oximetry 93 09/19/17 11:58 Oxygen Delivery Oxygen Delivery Nasal Cannula Shortness of Breath/Dyspnea - MDM Narrative Medical decision making narrative: 61-year-old female presented to the emergency department with shortness of breath. She does have history of COPD and CHF she was recently admitted here multiple times for this issue. States that her left her and she is worried she cannot take care of herself. Patient said she has had worsening shortness of breath she does have BiPAP at home and oxygen as needed. She had to be placed on oxygen while here she was 93% on 2-[address] the head which came back negative as patient did have a headache. We did give the patient Solu-Medrol as well as DuoNeb treatment. She will feel better after these treatments. Due to patient having history of CHF and COPD we felt that admission would be necessary. Will start patient on Levaquin as well. Patient is okay with this plan. She is admitted in stable condition due to our hospital being full we are transferring to [place] [facility] I spoke with Dr. Dalal who agreed to admit the patient to their service per patient was accepted at [place] [facility] and we are transferring the patient there. Patient is transferred and admitted in stable condition. Chest X-Ray 09/19/17 09:53 IMPRESSION: 1. No active pulmonary disease. D/ / Eriberto Mcclain MD / Eriberto Mcclain MD Interpreting Provider: Eriberto Mcclain MD Head CT 09/19/17 09:55 IMPRESSION: No acute intracranial abnormality. D/ / Chacorta Ruiz MD / Chacorta Ruiz MD Interpreting Provider: Chacorta Ruiz MD - Medical Records Medical records reviewed: Yes I reviewed the patient's medical records. - Lab Data Lab results reviewed: Yes I reviewed the patient's lab results. Result diagrams: 09/19/17 10:07 09/19/17 10:07 Lab Results 09/19/17 09/19/17 09/19/17 Range/Units 10:07 10:07 10:07 WBC 10.4 (4.3-11.1) K/mcL RBC 4.37 (3.82-4.97) M/mcL Hgb 11.1 L (11.5-15.4) g/dL Hct 37.2 (35.3-44.9) % MCV 85.1 (83.0-100.0) fL MCH 25.4 L (28.0-33.3) pg MCHC 29.8 L (31.6-35.5) g/dL RDW 15.4 H (11.5-14.5) % Plt Count 294 (140-400) K/mcL MPV 11.0 (9.4-12.4) fL Immature Gran % 2.3 (0-4) % Seg Neutrophils % 62.1 % Lymphocytes % 27.3 % Monocytes % 5.3 % Eosinophils % 2.2 % Basophils % 0.8 % Neutrophils # 6.5 (1.6-8.9) K/mcL Lymphocytes # 2.8 (0.6-4.6) K/mcL Monocytes # 0.6 (0.0-1.3) K/mcL Eosinophils # 0.2 (0.0-0.6) K/mcL Basophils # 0.1 (0.0-0.2) K/mcL Nucleated RBCs/100 WBC 0.4 H (0) /100 WBC Immature Plt Fraction 8.3 H (1.1-6.1) % Sodium 137 (136-145) mEq/L Potassium 2.9 L (3.5-5.1) mEq/L Chloride 91 L (98-107) mEq/L Carbon Dioxide 34 H (23-29) mEq/L BUN 32 H (6-20) mg/dL Creatinine 1.05 (0.60-1.20) mg/dL Est GFR ( Amer) > 60 (> 60) Est GFR (Non-Af Amer) 54 L (> 60) BUN/Creatinine Ratio 30 H (6-26) Glucose 228 H (70-105) mg/dL POC Glucose (58-89) Calculated Osmolality 298 (280-300) Lactic Acid (0.5-2.2) mmol/L Calcium 9.3 (8.6-10.3) mg/dL Troponin I < 0.03 (< 0.04) ng/mL B-Natriuretic Peptide (Less than 100) pg/mL Urine Color (Yellow) Urine Clarity (Clear) Urine pH (5.0-8.0) pH Units Ur Specific [place] (1.010-1.025) Urine Protein (Neg-Trace) mg/dL Urine Glucose (UA) (Normal) mg/dL Urine Ketones (Negative) mg/dL Urine Blood (Negative) Urine Nitrite (Negative) Urine Bilirubin (Negative) Urine Urobilinogen (Normal) mg/dL Ur Leukocyte Esterase (Negative) Ur Culture Indicated? (NO) Specimen Rejected 09/19/17 09/19/17 09/19/17 Range/Units 10:07 10:07 10:50 WBC (4.3-11.1) K/mcL RBC (3.82-4.97) M/mcL Hgb (11.5-15.4) g/dL Hct (35.3-44.9) % MCV (83.0-100.0) fL MCH (28.0-33.3) pg MCHC (31.6-35.5) g/dL RDW (11.5-14.5) % Plt Count (140-400) K/mcL MPV (9.4-12.4) fL Immature Gran % (0-4) % Seg Neutrophils % % Lymphocytes % % Monocytes % % Eosinophils % % Basophils % % Neutrophils # (1.6-8.9) K/mcL Lymphocytes # (0.6-4.6) K/mcL Monocytes # (0.0-1.3) K/mcL Eosinophils # (0.0-0.6) K/mcL Basophils # (0.0-0.2) K/mcL Nucleated RBCs/100 WBC (0) /100 WBC Immature Plt Fraction (1.1-6.1) % Sodium (136-145) mEq/L Potassium (3.5-5.1) mEq/L Chloride (98-107) mEq/L Carbon Dioxide (23-29) mEq/L BUN (6-20) mg/dL Creatinine (0.60-1.20) mg/dL Est GFR ( Amer) (> 60) Est GFR (Non-Af Amer) (> 60) BUN/Creatinine Ratio (6-26) Glucose (70-105) mg/dL POC Glucose (58-89) Calculated Osmolality (280-300) Lactic Acid (0.5-2.2) mmol/L Calcium (8.6-10.3) mg/dL Troponin I (< 0.04) ng/mL B-Natriuretic Peptide 21 (Less than 100) pg/mL Urine Color Yellow (Yellow) Urine Clarity Clear (Clear) Urine pH 6.5 (5.0-8.0) pH Units Ur Specific [place] 1.012 (1.010-1.025) Urine Protein Negative (Neg-Trace) mg/dL Urine Glucose (UA) 100 H (Normal) mg/dL Urine Ketones Negative (Negative) mg/dL Urine Blood Negative (Negative) Urine Nitrite Negative (Negative) Urine Bilirubin Negative (Negative) Urine Urobilinogen Normal (Normal) mg/dL Ur Leukocyte Esterase Negative (Negative) Ur Culture Indicated? NO (NO) Specimen Rejected Hemolyzed 09/19/17 09/19/17 Range/Units 11:01 12:08 WBC (4.3-11.1) K/mcL RBC (3.82-4.97) M/mcL Hgb (11.5-15.4) g/dL Hct (35.3-44.9) % MCV (83.0-100.0) fL MCH (28.0-33.3) pg MCHC (31.6-35.5) g/dL RDW (11.5-14.5) % Plt Count (140-400) K/mcL MPV (9.4-12.4) fL Immature Gran % (0-4) % Seg Neutrophils % % Lymphocytes % % Monocytes % % Eosinophils % % Basophils % % Neutrophils # (1.6-8.9) K/mcL Lymphocytes # (0.6-4.6) K/mcL Monocytes # (0.0-1.3) K/mcL Eosinophils # (0.0-0.6) K/mcL Basophils # (0.0-0.2) K/mcL Nucleated RBCs/100 WBC (0) /100 WBC Immature Plt Fraction (1.1-6.1) % Sodium (136-145) mEq/L Potassium (3.5-5.1) mEq/L Chloride (98-107) mEq/L Carbon Dioxide (23-29) mEq/L BUN (6-20) mg/dL Creatinine (0.60-1.20) mg/dL Est GFR ( Amer) (> 60) Est GFR (Non-Af Amer) (> 60) BUN/Creatinine Ratio (6-26) Glucose (70-105) mg/dL POC Glucose 235 H (58-89) Calculated Osmolality (280-300) Lactic Acid 3.1 H (0.5-2.2) mmol/L Calcium (8.6-10.3) mg/dL Troponin I (< 0.04) ng/mL B-Natriuretic Peptide (Less than 100) pg/mL Urine Color (Yellow) Urine Clarity (Clear) Urine pH (5.0-8.0) pH Units Ur Specific [place] (1.010-1.025) Urine Protein (Neg-Trace) mg/dL Urine Glucose (UA) (Normal) mg/dL Urine Ketones (Negative) mg/dL Urine Blood (Negative) Urine Nitrite (Negative) Urine Bilirubin (Negative) Urine Urobilinogen (Normal) mg/dL Ur Leukocyte Esterase (Negative) Ur Culture Indicated? (NO) Specimen Rejected - Radiology Data Radiology results reviewed: Yes I reviewed the patient's radiology results. - EKG Data EKG attestation: Yes I reviewed and interpreted this EKG. EKG results narrative: EKG done at 1002 reviewed by myself and attending shows sinus rhythm at rate of 77, NJ interval 169, QRS 94, QTC [address]. No acute ST changes no acute T-wave changes no other signs of ischemia. No signs of heart strain or hypertrophy no signs of any other heart blocks. No signs of WPW/Brugada syndrome. No old EKG to compare with. Attestation Statement - Attestation Attestation: I, Bobby Wahl DO, examined this patient [id number] and my medical decision-making was reviewed with Dr. Brian Burger, Resident Physician. I agree with the documented findings, disposition and treatment plan as described except to the extent set forth below. Please see my progress notes for details. 61-year-old female presents emergency room from home by EMS. Patient presents here today with shortness of breath and feeling like fluid overload. Patient has long-standing history of congestive heart failure and COPD. Actively she has audible wheezing on exam auscultating the lungs. She does not have any coarse crackles on our evaluation. Heart is regular. Patient denies any chest pain fevers chills nausea vomiting or diarrhea. Denies headache or vision change this time. Physical exam is concerning for COPD exacerbation versus CHF. She does have some mild pitting edema in the lower extremities. Otherwise she has no visible signs of trauma or injury. She sitting upright in the bed speaking in full sentences but does have some mild conversational dyspnea. Breathing treatments and steroids will be given at this time. Lasix will be held until we have an evaluation of her kidney function as well as a chest x-ray. Patient does have some mild symptomatic exertional dyspnea as well with any movement in the bed at this time. Oxygen applied. Disposition will most likely be admission for further evaluation. Antibiotics will be held at this time until we note there is an infectious etiology as opposed to just a COPD exacerbation. Symptomatic treatment to be completed here. EKG chest x- ray and labs for screening evaluation COPD and CHF. Patient was offered BiPAP. She elected not to have that at this point. Patient will be evaluated and discussed disposition. Aspirin will be given at this time for symptomatic treatment and further follow-up. See detailed documentation of the physical exam, medical intervention, medical decision making, disposition and the resident physician's note. No critical care participation at this time. 1400 after approximately an hour and a half waiting for the patient to transfer to an outside facility it was determined that they did not have the capability of managing a telemetry patient at this time. They recommended that we try different facility that point. By that time and they are facility have beds available. Patient will be admitted to our facility this time. Appears to be symptomatic treatment of COPD and CHF. No other concerns or issues noted at this time. Vital signs are reviewed and are stable. Patient has not required any other further medical intervention in the emergency room. Symptomatic control he completed here in the hospital.
[2017-09-19] MEDS ORDERED: Ketorolac 15 MG/ML VIAL IVP ONE (10:18)
[2017-09-19 10:19] LABS: Basophils # 0.1 K/mcL (0.0-0.2); Basophils % 0.8 %; Eosinophils # 0.2 K/mcL (0.0-0.6); Eosinophils % 2.2 %; Hematocrit 37.2 % (35.3-44.9); Hemoglobin 11.1 g/dL (11.5-15.4); Immature Granulocytes % 2.3 % (0-4); Immature Platelets 8.3 % (1.1-6.1); Lymphocytes # 2.8 K/mcL (0.6-4.6); Lymphocytes % 27.3 %; Mean Corpuscular HGB Conc 29.8 g/dL (31.6-35.5); Mean Corpuscular Hemoglobin 25.4 pg (28.0-33.3); Mean Corpuscular Volume 85.1 fL (83.0-100.0); Monocytes # 0.6 K/mcL (0.0-1.3); Monocytes % 5.3 %; Neutrophils # 6.5 K/mcL (1.6-8.9); Nucleated Red Blood Cells 0.4 /100 WBC (0); Platelet Count 294 K/mcL (140-400); Red Blood Count 4.37 M/mcL (3.82-4.97); Red Cell Distribution Width 15.4 % (11.5-14.5); Segmented Neutrophils % 62.1 %
[2017-09-19 10:33] LABS: BUN/Creatinine Ratio 30 (6-26); Blood Urea Nitrogen 32 mg/dL (6-20); Calcium 9.3 mg/dL (8.6-10.3); Carbon Dioxide 34 mEq/L (23-29); Chloride 91 mEq/L (98-107); Glucose 228 mg/dL (70-105); Osmolality,Calculated 298 (280-300); Potassium 2.9 mEq/L (3.5-5.1); Sodium 137 mEq/L (136-145); eGFR For African Americans > 60 (> 60); eGFR For Non-African Americans 54 (> 60)
[2017-09-19 10:59] LABS: Bilirubin,Urine Negative (Negative); Blood,Urine Negative (Negative); Clarity,Urine Clear (Clear); Color,Urine Yellow (Yellow); Glucose,Urine (UA) 100 mg/dL (Normal); Ketones,Urine Negative (Negative); Leukocyte Esterase,Urine Negative (Negative); Nitrite,Urine Negative (Negative); PH,Urine 6.5 pH Units (5.0-8.0); Protein,Urine Negative (Neg-Trace); Specific Gravity,Urine 1.012 (1.010-1.025); Urobilinogen,Urine Normal (Normal)
[2017-09-19] MEDS ORDERED: Levofloxacin 750 MG/150 ML 750 MG/150 ML BAG IVPB ONE (12:15)
[2017-09-19] MEDS ORDERED: 0.9 % Sodium Chloride 1,000 ML IVC ONE (12:26)
[2017-09-19] MEDS ORDERED: Naloxone 0.4 MG/ML INJ IVP PRN (20:42)
[2017-09-19] MEDS ORDERED: Ondansetron 4 MG/2 ML VIAL IVP PRN (20:42)
[2017-09-19] MEDS ORDERED: tiZANidine 4 MG TABLET PO PRN (20:44)
[2017-09-19] MEDS ORDERED: metOLazone 2.5 MG TABLET PO PRN (20:44)
[2017-09-19] MEDS ORDERED: traMADol 50 MG TABLET PO PRN (20:44)
[2017-09-19] MEDS ORDERED: BUPRENORPHINE TP SCH (20:45)
[2017-09-19] MEDS ORDERED: Albuterol 2.5 MG/3 ML NEBULIZER IH PRN (20:55)
[2017-09-19] MEDS ORDERED: *HR* Dextrose 50 % in Water (Syg) 50 ML SYRINGE IVP PRN (20:59)
[2017-09-19] MEDS ORDERED: Dextrose Gel 15 GM/37.5 ML TUBE PO PRN ×2 (20:59)
[2017-09-19] MEDS ORDERED: D5% in Water 1,000 ML IVC PRN (20:59)
--- NOTE | 2017-09-19 21:58 | Internal Med History&Physical ---
Date of Encounter: 09/20/17 Time of Encounter: 21:45 Assessment and Plan (1) COPD exacerbation Current visit: No Status: Acute Patient with wheezing, cough, increased O2 requirement. - Prednisone, scheduled duonebs and PRN albuterol nebs - O2 - PO azithromycin (2) Atypical chest pain Current visit: No Status: Chronic Longstanding pain, likely secondary to COPD, as pain is atypical and troponins are undetectable x2. EKG without acute ischemic changes (flattened T wave in V2 , no ischemic ST changes) - trend troponin - monitor on telemetry - SL nitro to treat pain (3) Hyperlipidemia Current visit: No Status: Chronic Continue home statin Qualifiers: Hyperlipidemia type: mixed hyperlipidemia Qualified Code(s): E78.2 - Mixed hyperlipidemia (4) Hypertension Current visit: No Status: Acute BP stable. - Continue home meds Qualifiers: Hypertension type: essential hypertension Qualified Code(s): I10 - Essential (primary) hypertension (5) Chronic diastolic CHF (congestive heart failure) Current visit: Yes Status: Chronic Does not appear significantly volume overloaded at this time clinically, also CXR without evidence of pulmonary vascular congestion. - Limit IV fluids (6) DVT prophylaxis Current visit: No Status: Acute SQ heparin (7) Lactic acidosis Current visit: Yes Status: Acute Lactate slightly elevated in ED at 3.1. No evidence for infectious process, likely related to hypoxia and increased work of breathing - Recheck in AM (8) Hypokalemia Current visit: No Status: Acute K 2.9. Received 40 PO Kcl in ED - 40 more KCl on floor - Check mag and replace if low - Follow K Internal Medicine - H&P: HPI Chief complaint: Shortness of breath Admitted From: Emergency Dept Plans for Post Hospital Care: Home History of present illness: Ms. Lynch is a 61 year old female with history of CAD, COPD, and diastolic CHF who presented to the ED this evening with complaint of shortness of breath and chest pain. She states that she has been short of breath with the same continuous chest pain for the past three weeks and has been admitted three times this past month for similar symptoms. She states that she is typically able to ambulate around her home without oxygen (just uses it to sleep and when walking long distances), but for the past month she has been unable to ambulate more than a few steps before gasping and requiring oxygen. She does not think she has had recent weight gain. She is coughing but denies significant sputum production. Chest pain is located at the left anterior chest, is pressure-like in nature and non-radiating. Patient cannot identify any exacerbating or relieving factors. Past Med Surg Social Fam HX - Past Medical History Medical history: arthritis, CHF, COPD, coronary artery disease, diabetes, GERD, hyperlipidemia, hypertension, osteoporosis, renal disease, thyroid disease, TIA , venous stasis, other Psychiatric history: anxiety, bipolar, depression, panic disorder - Past Surgical History Surgical History: angioplasty/stent, , cholecystectomy, hysterectomy - Social History Smoking Status: Former smoker Smokeless Tobacco Status: No Alcohol use: none Drug use: none - Family History Brother Adopted: No Family Member Ethnicity: Non- Living Status: Hx Family Cardiac Disorders: Yes Father Adopted: No Family Member Ethnicity: Non- Living Status: Hx Family Cardiac Disorders: Yes (HD, HLD, HTN, [place], Triple Bypass) Hx Family Neurologic Disorders: Yes (Dementia) Mother Adopted: No Family Member Ethnicity: Non- Living Status: Hx Family Cardiac Disorders: Yes (WA, HTN, HLD, Strokes x5) Hx Family Respiratory Disorders: No Hx Family Cancer: No Hx Family GI Disorders: No Hx Family Endocrine Disorder: Yes (DM) Hx Family Neuromuscular Disorders: No Hx Family Neurologic Disorders: Yes (Strokes) Hx Family HEENT Disorders: No Hx Family Autoimmune Disorders: No Internal Medicine - H&P: Meds Budesonide/Formoterol 160/4.5 [Symbicort] 2 puff IH BIDR 04/21/15 [History] Levothyroxine [Synthroid] 100 mcg PO QAM 04/21/15 [History] Tiotropium [Spiriva] 18 mcg IH QAM 04/21/15 [History] metFORMIN [Glucophage] 1,000 mg PO BID 04/21/15 [History] Atorvastatin Calcium [Lipitor] 40 mg PO DAILY 02/04/16 [History] Montelukast [Singulair] 10 mg PO HS 02/04/16 [History] Oxygen 2 l NS AD PRN 03/17/16 [History] Insulin Glargine [Lantus] 80 unit SQ QPM 03/25/16 [History] Insulin Glargine [Lantus] 90 unit SQ QAM 03/25/16 [History] Albuterol Sulfate [Albuterol Inhaler] 2 puff IH Q4HR PRN 05/01/16 [History] Citalopram Hydrobromide [Citalopram HBr] 40 mg PO DAILY 05/01/16 [History] Raloxifene [Evista] 60 mg PO DAILY 05/01/16 [History] Aripiprazole [Abilify] 10 mg PO HS tablet 05/03/16 [Rx] Fenofibrate Nanocrystallized [Tricor] 145 mg PO DAILY 06/15/16 [History] Clopidogrel [Plavix] 75 mg PO QAM tablet 06/18/16 [Rx] Aspirin 81 mg PO DAILY #60 tab.chew 12/06/16 [Rx] Mag Hydrox/Al Hydrox/Simeth [Maalox] 30 ml PO Q6H PRN 30 Days oral.susp [Rx] Cholecalciferol (D-3) [Vitamin D] 1,000 unit PO DAILY 04/27/17 [History] Metoclopramide [Reglan] 10 mg PO TID 04/27/17 [History] Metoprolol XL (24 HR) Succ [Toprol Xl] 50 mg PO DAILY 04/27/17 [History] Insulin LISPRO [Humalog Kwikpen U-100] 2 - 10 unit SQ TID PRN 05/09/17 [History] clonazePAM [Klonopin] 1 mg PO DAILY PRN 05/28/17 [History] Magnesium Oxide [Mag-Ox] 400 mg PO DAILY #0 tab 05/29/17 [Rx] Bumetanide 2 mg PO BID 06/11/17 [History] Gabapentin [Neurontin] 800 mg PO 5XD 06/11/17 [History] Omeprazole [PriLOSEC] 20 mg PO BIDAC 06/11/17 [History] Potassium Chloride 20 meq PO BID 06/11/17 [History] Tizanidine HCl [Zanaflex] 4 mg PO TID PRN 06/11/17 [History] amLODIPine [Norvasc] 2.5 mg PO DAILY 06/11/17 [History] metOLazone [Zaroxolyn] 2.5 mg PO DAILY PRN 06/11/17 [History] Isosorbide MONOnitrate (24 HR) [Imdur] 120 mg PO DAILY 06/26/17 [History] [place]-3 Fatty Acids/Fish Oil [Fish Oil 1,000 mg Softgel] 1 cap PO DAILY [History] Nortriptyline [Pamelor] 25 mg PO HS 06/27/17 [History] DiphenhydraMINE [Benadryl] 25 mg PO HS 08/29/17 [History] Roflumilast [Daliresp] 500 mcg PO DAILY #30 tablet 09/09/17 [Rx] Buspirone HCl [Buspar] 20 mg PO BID 09/12/17 [History] Buprenorphine [Butrans] 1 patch TD QWEEK 09/19/17 [History] Tramadol HCl [Ultram] 50 mg PO TID PRN 09/19/17 [History] 3 Allergy/AdvReac Type Severity Reaction Status Date / Time No Known Allergies Allergy Verified 09/19/17 09:56 All Systems PM: A 10-system review of systems was performed and is negative for pertinent findings except as documented above in the HPI. - Constitutional Vitals: Temp Pulse Resp BP Pulse Ox 98.3 F 91 16 120/76 90 09/19/17 20:32 09/19/17 20:32 09/19/17 20:32 09/19/17 20:32 09/19/17 20:32 Internal Med - H&P Results - Labs CBC & Chem 7: 09/19/17 10:07 09/19/17 10:07
[2017-09-19] MEDS: ARIPiprazole 10 MG TABLET PO SCH (22:11)
[2017-09-19] MEDS: clonazePAM 1 MG TABLET PO PRN (22:12)
[2017-09-19] MEDS: Insulin LISPRO 300 UNITS/3 ML VIAL SQ SCH (22:12)
[2017-09-19] MEDS: Bumetanide 1 MG TABLET PO SCH (22:13)
[2017-09-19] MEDS: Budesonide/Formoterol 160/4.5 MDI IH SCH (22:42)
[2017-09-19] MEDS: Ipratropium/Albuterol Neb 3 ML IH SCH (22:42)
[2017-09-19] MEDS: Gabapentin 400 MG CAPSULE PO SCH (23:48)
[2017-09-19] MEDS: *HR* HYDROcodone/Acet 5/325 mg TABLET PO PRN (23:48)
[2017-09-20] MEDS ORDERED: Nitroglycerin 0.4 MG TAB.SUBL SL PRN (01:01)
[2017-09-20] MEDS ORDERED: clonazePAM 1 MG TABLET PO ONE (01:47)
[2017-09-20] MEDS: *HR* HYDROcodone/Acet 5/325 mg TABLET PO PRN ×3 (03:50→17:47)
[2017-09-20] MEDS: Ipratropium/Albuterol Neb 3 ML IH SCH ×4 (04:44→22:35)
[2017-09-20 05:11] LABS: Basophils # 0.1 K/mcL (0.0-0.2); Basophils % 0.5 %; Eosinophils % 0.4 %; Hematocrit 32.9 % (35.3-44.9); Hemoglobin 9.9 g/dL (11.5-15.4); Lymphocytes # 2.5 K/mcL (0.6-4.6); Lymphocytes % 22.6 %; Mean Corpuscular HGB Conc 30.1 g/dL (31.6-35.5); Mean Corpuscular Hemoglobin 25.2 pg (28.0-33.3); Mean Corpuscular Volume 83.7 fL (83.0-100.0); Mean Platelet Volume 11.2 fL (9.4-12.4); Monocytes # 0.8 K/mcL (0.0-1.3); Monocytes % 7.2 %; Neutrophils # 7.4 K/mcL (1.6-8.9); Nucleated Red Blood Cells 0.2 /100 WBC (0); Platelet Count 258 K/mcL (140-400); Red Blood Count 3.93 M/mcL (3.82-4.97); Red Cell Distribution Width 15.5 % (11.5-14.5); Segmented Neutrophils % 67.3 %
[2017-09-20 05:40] LABS: BUN/Creatinine Ratio 26 (6-26); Blood Urea Nitrogen 25 mg/dL (6-20); Calcium 8.7 mg/dL (8.6-10.3); Carbon Dioxide 33 mEq/L (23-29); Chloride 97 mEq/L (98-107); Glucose 301 mg/dL (70-105); Osmolality,Calculated 302 (280-300); Potassium 3.5 mEq/L (3.5-5.1); Sodium 138 mEq/L (136-145); eGFR For African Americans > 60 (> 60); eGFR For Non-African Americans 58 (> 60)
[2017-09-20] MEDS: *HR* Heparin 5,000 UNIT/ML VIAL SQ SCH ×3 (06:22→21:37)
[2017-09-20] MEDS ORDERED: traMADol 50 MG TABLET PO PRN (08:24)
[2017-09-20] MEDS ORDERED: Buprenorphine [Butrans] 1 PATCH TP SCH (08:30)
[2017-09-20] MEDS: Insulin LISPRO 300 UNITS/3 ML VIAL SQ SCH ×4 (08:35→20:34)
[2017-09-20] MEDS: Isosorbide MONOnitrate (24 HR) 60 MG TAB.ER.24H PO SCH (08:36)
[2017-09-20] MEDS: predniSONE 20 MG TABLET PO SCH (08:36)
[2017-09-20] MEDS: Bumetanide 1 MG TABLET PO SCH ×2 (08:36→17:46)
[2017-09-20] MEDS: Magnesium Oxide 400 MG TABLET PO SCH (08:37)
[2017-09-20] MEDS: Fenofibrate 54 MG TABLET PO SCH (08:37)
[2017-09-20] MEDS: Azithromycin 250 MG TABLET PO SCH (08:37)
[2017-09-20] MEDS: amLODIPine 5 MG TABLET PO SCH (08:38)
[2017-09-20] MEDS: Aspirin 81 MG TAB.CHEW PO SCH (08:38)
[2017-09-20] MEDS: Metoprolol XL (24 HR) Succ 50 MG TAB.ER.24H PO SCH (08:39)
--- NOTE | 2017-09-20 08:40 | Internal Med Progress Note ---
Date of Encounter: 09/20/17 Time of Encounter: 08:38 - Assessment and plan (1) COPD exacerbation Current Visit: No Status: Acute Assessment and plan: Patient states that while she is still short of breath, it is improved since yesterday. Continue current regimen: - Prednisone, scheduled duonebs, albuterol nebs PRN - O2 - Azithormycin PO (2) Atypical chest pain Current Visit: No Status: Chronic Assessment and plan: Chronic chest pain likely secondary to COPD. Patient not complaining of chest pain this AM. Troponin undetectable x2 , ECG showed no acute ischemic changes. - Trend troponin - SL nitro PRN - Monitor patient (3) Hyperlipidemia Current Visit: No Status: Chronic Assessment and plan: Continue home statin as directed. Qualifiers: Hyperlipidemia type: mixed hyperlipidemia Qualified Code(s): E78.2 - Mixed hyperlipidemia (4) Hypertension Current Visit: No Status: Chronic Assessment and plan: Continue home regimen. BP stable at this time. Qualifiers: Hypertension type: essential hypertension Qualified Code(s): I10 - Essential (primary) hypertension (5) Chronic diastolic CHF (congestive heart failure) Current Visit: Yes Status: Chronic Assessment and plan: Patient does not appear to be significantly volume overloaded at this tmie. CXR did not show any evidence of pulmonary vascular congestion. - Limit IV fluids, continue with home Bumex (6) DVT prophylaxis Current Visit: No Status: Acute Assessment and plan: SubQ heparin (7) Hypokalemia Current Visit: No Status: Acute Assessment and plan: Patient was hypokalemic with a K of 2.9 in the ED yesterday. recieved 40 mEq PO K in ED and 40 mEq more on the floor. K 3.5 this AM - Continue to monitor K - Monitor Mg (8) Lactic acidosis Current Visit: Yes Status: Acute Assessment and plan: Lactate was slightly elevated at 3.1 in the ED. No evidence of infectious process, likely due to hypoxia/increased work of breathing. Lactate was 2.0 this AM. - Subjective Interval history: Ms. Lynch is resting comfortably in bed eating breakfast this morning. She is A &O x3 and states that she is still short of breath, but that she is feeling improved since yesterday. She is not complaining of a headache this morning. Patient feels that she is trending in the right direction. - Constitutional Vitals: Temp Pulse Resp BP Pulse Ox 97.4 F L 79 17 115/73 94 09/20/17 07:11 09/20/17 07:11 09/20/17 07:11 09/20/17 07:11 09/20/17 07:11 General appearance: Present: cooperative, A&O X 3, morbidly obese, pleasant, no acute distress, answers questions appropriately - Head Head exam: Present: normal inspection, normocephalic - Neck Neck exam general surgery: Present: normal inspection, supple. Absent: lymphadenopathy - Respiratory Respiratory exam: Present: decreased breath sounds, CTAB. Absent: rales - Cardiovascular Cardiovascular exam: Present: distant heart sounds, RRR - GI/Abdominal GI/Abdominal exam: Present: normal bowel sounds, soft. Absent: tenderness - Extremities Exam Extremities exam: Present: tenderness. Absent: warm - Skin Skin exam: Present: dry, erythema (left lower extremity), intact Internal Medicine: Result - Labs CBC & Chem 7: 09/20/17 04:54 09/20/17 04:54 Labs: Short CBC 09/20/17 Range/Units 04:54 WBC 11.1 (4.3-11.1) K/mcL Hgb 9.9 L (11.5-15.4) g/dL Hct 32.9 L (35.3-44.9) % Plt Count 258 (140-400) K/mcL Neutrophils # 7.4 (1.6-8.9) K/mcL BMP 09/20/17 04:54 Sodium 138 Potassium 3.5 Chloride 97 L Carbon Dioxide 33 H BUN 25 H Creatinine 0.98 Glucose 301 H Calcium 8.7 Cardiac Enzymes 09/19/17 09/20/17 Range/Units 21:05 04:54 Troponin I < 0.03 < 0.03 (< 0.04) ng/mL Consult Discharge Plan - Plan Referrals: NONE,PCP [Primary Care Provider] -
[2017-09-20] MEDS ORDERED: (Roflumilast [Daliresp] 500 MCG) PO SCH (09:00)
[2017-09-20] MEDS ORDERED: NON-FORMULARY MEDICATION 1 EACH EACH (Insulin Glargine [Lantus] 90 UNIT) SQ SCH (09:00)
[2017-09-20] MEDS ORDERED: Insulin DETEMIR 100 UNIT/ML X5UNITS SQ SCH ×3 (09:00→21:00)
[2017-09-20 09:47] LABS: Magnesium 1.6 mg/dL (1.6-2.6)
[2017-09-20] MEDS: Budesonide/Formoterol 160/4.5 MDI IH SCH ×2 (10:51→22:35)
[2017-09-20] MEDS: Gabapentin 400 MG CAPSULE PO SCH ×4 (12:24→20:33)
[2017-09-20] MEDS ORDERED: Furosemide 80 MG in 0.9 % Sodium Chloride 50 ML IVPB ONE (13:13)
[2017-09-20] MEDS ORDERED: NON-FORMULARY MEDICATION 1 EACH EACH (Insulin Glargine [Lantus] 80 UNIT) SQ SCH (18:00)
[2017-09-20] MEDS: ARIPiprazole 10 MG TABLET PO SCH (20:33)
[2017-09-20] MEDS: clonazePAM 1 MG TABLET PO PRN (20:34)
[2017-09-20] MEDS: Insulin DETEMIR 100 UNIT/ML X5UNITS SQ SCH (21:37)
[2017-09-21] MEDS: Gabapentin 400 MG CAPSULE PO SCH ×6 (00:22→23:34)
[2017-09-21] MEDS: *HR* HYDROcodone/Acet 5/325 mg TABLET PO PRN ×4 (03:46→22:18)
[2017-09-21] MEDS: Ipratropium/Albuterol Neb 3 ML IH SCH ×4 (04:26→22:15)
[2017-09-21] MEDS: *HR* Heparin 5,000 UNIT/ML VIAL SQ SCH ×3 (05:58→22:18)
[2017-09-21 06:45] LABS: Basophils # 0.1 K/mcL (0.0-0.2); Basophils % 0.6 %; Eosinophils # 0.1 K/mcL (0.0-0.6); Hematocrit 34.4 % (35.3-44.9); Hemoglobin 10.4 g/dL (11.5-15.4); Immature Granulocytes % 1.3 % (0-4); Lymphocytes # 4.1 K/mcL (0.6-4.6); Lymphocytes % 34.9 %; Mean Corpuscular HGB Conc 30.2 g/dL (31.6-35.5); Mean Corpuscular Hemoglobin 25.2 pg (28.0-33.3); Mean Corpuscular Volume 83.5 fL (83.0-100.0); Mean Platelet Volume 11.1 fL (9.4-12.4); Monocytes # 0.6 K/mcL (0.0-1.3); Monocytes % 5.3 %; Neutrophils # 6.7 K/mcL (1.6-8.9); Nucleated Red Blood Cells 0.2 /100 WBC (0); Platelet Count 270 K/mcL (140-400); Red Blood Count 4.12 M/mcL (3.82-4.97); Red Cell Distribution Width 15.5 % (11.5-14.5); Segmented Neutrophils % 56.9 %
[2017-09-21 07:11] LABS: BUN/Creatinine Ratio 29 (6-26); Blood Urea Nitrogen 32 mg/dL (6-20); Calcium 9.4 mg/dL (8.6-10.3); Carbon Dioxide 34 mEq/L (23-29); Chloride 96 mEq/L (98-107); Glucose 197 mg/dL (70-105); Magnesium 1.8 mg/dL (1.6-2.6); Osmolality,Calculated 302 (280-300); Potassium 3.2 mEq/L (3.5-5.1); Sodium 140 mEq/L (136-145); eGFR For African Americans > 60 (> 60); eGFR For Non-African Americans 51 (> 60)
[2017-09-21] MEDS: Fenofibrate 54 MG TABLET PO SCH (08:14)
[2017-09-21] MEDS: Azithromycin 250 MG TABLET PO SCH (08:14)
[2017-09-21] MEDS: Metoprolol XL (24 HR) Succ 50 MG TAB.ER.24H PO SCH (08:14)
[2017-09-21] MEDS: Isosorbide MONOnitrate (24 HR) 60 MG TAB.ER.24H PO SCH (08:16)
[2017-09-21] MEDS: predniSONE 20 MG TABLET PO SCH (08:16)
[2017-09-21] MEDS: amLODIPine 5 MG TABLET PO SCH (08:17)
[2017-09-21] MEDS: Aspirin 81 MG TAB.CHEW PO SCH (08:17)
--- NOTE | 2017-09-21 08:17 | Electrocardiograph Report ---
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
[2017-09-21] MEDS: Magnesium Oxide 400 MG TABLET PO SCH (08:26)
[2017-09-21] MEDS: Insulin LISPRO 300 UNITS/3 ML VIAL SQ SCH ×4 (08:26→20:10)
[2017-09-21] MEDS: Insulin DETEMIR 100 UNIT/ML X5UNITS SQ SCH ×2 (08:26→20:07)
--- NOTE | 2017-09-21 09:54 | Internal Med Progress Note ---
<Gala Jones - Last Filed: 09/21/17 12:01> Date of Encounter: 09/21/17 Time of Encounter: 09:35 - Assessment and plan (1) COPD exacerbation Current Visit: No Status: Acute Assessment and plan: Patient states that she is improved since yesterday but is still having some shortness of breath. Right lung wheezing History of COPD she has been admitted 3 other times in the past 3 weeks. afebrile, WBC 11.7 Continue current regimen: - Azithormycin PO day 2 - Prednisone day 3 -scheduled duonebs, albuterol nebs PRN - O2 as needed -may discharge tomorrow (2) Atypical chest pain Current Visit: No Status: Chronic Assessment and plan: Chronic chest pain likely secondary to COPD. Patient not complaining of chest pain this AM. Troponin undetectable x2 , ECG showed no acute ischemic changes. Troponins negative. - SL nitro PRN - Monitor patient (3) Hyperlipidemia Current Visit: No Status: Chronic Assessment and plan: Continue home statin as directed. Qualifiers: Hyperlipidemia type: mixed hyperlipidemia Qualified Code(s): E78.2 - Mixed hyperlipidemia (4) Hypertension Current Visit: No Status: Chronic Assessment and plan: Continue home regimen. BP stable at this time. Qualifiers: Hypertension type: essential hypertension Qualified Code(s): I10 - Essential (primary) hypertension (5) Chronic diastolic CHF (congestive heart failure) Current Visit: Yes Status: Chronic Assessment and plan: Patient has a history of chronic diastolic CHF Patient does not appear to be significantly volume overloaded at this tmie. CXR did not show any evidence of pulmonary vascular congestion. ECH 05/11/2017 showed LVEF 60-65%, moderate left ventricular diastolic dysfunction, no evidence pulmonary hypertension, no significant valvular dysfunction - Limit IV fluids, continue with IV lasix 80mg IV BID -monitor renal function (6) Hypokalemia Current Visit: No Status: Acute Assessment and plan: Patient was hypokalemic with a K of 2.9 in the ED two days ago. recieved 40 mEq PO K in ED and 40 mEq more on the floor. K 3.2 this AM - K 20mEq BID - Continue to monitor K - Monitor Mg (1.8 this AM) (7) Lactic acidosis Current Visit: Yes Status: Acute Assessment and plan: Lactate was slightly elevated at 3.1 in the ED. No evidence of infectious process, likely due to hypoxia/increased work of breathing. Lactate was 2.0 yesterday. (8) DVT prophylaxis Current Visit: No Status: Acute Assessment and plan: SubQ heparin - Subjective Interval history: Ms. Lynch is resting comfortably in bed eating this morning. She is A&O x3 and states that she feels improved relative to yesterday and that she feels that she is trending in the right direction. But she believes that she needs to stay another day. She states that other than feeling slightly warm, she feels well. Denies chest pain, abdominal pain, nausea, vomiting. - Constitutional Vitals: Temp Pulse Resp BP Pulse Ox 97.3 F L 76 16 130/79 96 09/21/17 07:46 09/21/17 07:46 09/21/17 07:46 09/21/17 07:46 09/21/17 07:46 General appearance: Present: cooperative, A&O X 3, morbidly obese, pleasant, no acute distress, answers questions appropriately - Head Head exam: Present: atraumatic, normocephalic - Respiratory Respiratory exam: Present: decreased breath sounds (mostly in right lung), CTAB - Cardiovascular Cardiovascular exam: Present: RRR, +S1, +S2. Absent: clicks - GI/Abdominal GI/Abdominal exam: Present: normal bowel sounds, soft. Absent: distended, guarding, tenderness - Extremities Exam Extremities exam: Present: pedal edema, warm Additional comments: Venous stasis dermatitis LE bilaterally - Neurological Exam Neurological exam: Present: alert, oriented X3 - Psychiatric Psychiatric exam: Absent: anxious - Skin Skin exam: Present: dry, intact Internal Medicine: Result - Labs CBC & Chem 7: 09/21/17 06:24 09/21/17 06:24 Labs: Short CBC 09/21/17 Range/Units 06:24 WBC 11.7 H (4.3-11.1) K/mcL Hgb 10.4 L (11.5-15.4) g/dL Hct 34.4 L (35.3-44.9) % Plt Count 270 (140-400) K/mcL Neutrophils # 6.7 (1.6-8.9) K/mcL BMP 09/21/17 06:24 Sodium 140 Potassium 3.2 L Chloride 96 L Carbon Dioxide 34 H BUN 32 H Creatinine 1.09 Glucose 197 H Calcium 9.4 Cardiac Enzymes 09/20/17 Range/Units 10:47 Troponin I < 0.03 (< 0.04) ng/mL Consult Discharge Plan - Plan Referrals: NONE,PCP [Primary Care Provider] - <Shorty Hernandez - Last Filed: 09/21/17 12:56> Date of Encounter: 09/21/17 - Constitutional Vitals: Temp Pulse Resp BP Pulse Ox 97.5 F L 88 17 107/68 93 09/21/17 11:22 09/21/17 11:22 09/21/17 11:22 09/21/17 11:22 09/21/17 11:22 Internal Medicine: Result - Labs CBC & Chem 7: 09/21/17 06:24 09/21/17 06:24 Labs: Short CBC 09/21/17 Range/Units 06:24 WBC 11.7 H (4.3-11.1) K/mcL Hgb 10.4 L (11.5-15.4) g/dL Hct 34.4 L (35.3-44.9) % Plt Count 270 (140-400) K/mcL Neutrophils # 6.7 (1.6-8.9) K/mcL BMP 09/21/17 06:24 Sodium 140 Potassium 3.2 L Chloride 96 L Carbon Dioxide 34 H BUN 32 H Creatinine 1.09 Glucose 197 H Calcium 9.4 - Attending Attestation I personally interviewed and examined this patient. I agree with the findings, assessment and plan of Dr. Jones, internal medicine resident. Patient is improved. We will continue with IV diuretics through today, as she does appear to be mildly fluid overloaded. She is otherwise showing significant improvement and will continue with the therapies as outlined. I discussed the case with the patient and with Dr. Jones, and our input as reflected in this note.
[2017-09-21] MEDS: Budesonide/Formoterol 160/4.5 MDI IH SCH ×2 (10:29→22:14)
[2017-09-21] MEDS: clonazePAM 1 MG TABLET PO PRN (12:00)
[2017-09-21] MEDS: Furosemide 40 MG/4 ML VIAL IVP SCH (16:59)
--- NOTE | 2017-09-21 18:06 | Electrocardiograph Report ---
[facility] Test Date: 2017-09-19 Pat Name: Claire Lynch Department: 104 Room: 2A38 Gender: F Materials Manager: JOVI : 1955 Requested By: Brian Burger Order Number: [id number] Reading MD: Avinash Jerome MD Measurements Intervals [place] Rate: 77 P: 48 [place]: 169 QRS: 15 QRSD: 94 T: 28 QT: 461 QTc: 493 Interpretive Statements SINUS RHYTHM LOW QRS VOLTAGE IN PRECORDIAL LEADS [QRS DEFLECTION < 1.0 mV IN CHEST LEADS] POSSIBLE ANTERIOR MYOCARDIAL INFARCTION [30 ms Q WAVE IN V3/V4, OR R < 0.2 mV IN V4], PROBABLY OLD INFERIOR MYOCARDIAL INFARCTION [40+ ms Q WAVE AND/OR ST/T ABNORMALITY IN II/aVF], PROBABLY OLD Electronically Signed On 09-21-2017 18:04:51 EST by Avinash Jerome MD
[2017-09-21] MEDS: ARIPiprazole 10 MG TABLET PO SCH (20:06)
[2017-09-21] MEDS ORDERED: Melatonin 3 MG TABLET PO PRN (20:18)
[2017-09-21] MEDS ORDERED: Furosemide 80 MG in 0.9 % Sodium Chloride 50 ML IVPB SCH (21:00)
[2017-09-22] MEDS: *HR* HYDROcodone/Acet 5/325 mg TABLET PO PRN ×2 (02:21→12:03)
[2017-09-22] MEDS: clonazePAM 1 MG TABLET PO PRN (03:47)
[2017-09-22] MEDS: Ipratropium/Albuterol Neb 3 ML IH SCH ×2 (04:07→10:30)
[2017-09-22 05:09] LABS: Hematocrit 33.9 % (35.3-44.9); Hemoglobin 10.3 g/dL (11.5-15.4); Mean Corpuscular HGB Conc 30.4 g/dL (31.6-35.5); Mean Corpuscular Hemoglobin 25.4 pg (28.0-33.3); Mean Corpuscular Volume 83.5 fL (83.0-100.0); Mean Platelet Volume 11.5 fL (9.4-12.4); Platelet Count 266 K/mcL (140-400); Red Blood Count 4.06 M/mcL (3.82-4.97); Red Cell Distribution Width 15.4 % (11.5-14.5)
[2017-09-22 05:39] LABS: BUN/Creatinine Ratio 33 (6-26); Blood Urea Nitrogen 31 mg/dL (6-20); Calcium 9.3 mg/dL (8.6-10.3); Carbon Dioxide 29 mEq/L (23-29); Chloride 95 mEq/L (98-107); Glucose 325 mg/dL (70-105); Osmolality,Calculated 299 (280-300); Potassium 3.8 mEq/L (3.5-5.1); Sodium 135 mEq/L (136-145); eGFR For African Americans > 60 (> 60); eGFR For Non-African Americans > 60 (> 60)
[2017-09-22] MEDS: *HR* Heparin 5,000 UNIT/ML VIAL SQ SCH (05:43)
--- NOTE | 2017-09-22 08:42 | Discharge Summary ---
<Gala Jones - Last Filed: 09/22/17 13:54> Date of Encounter: 09/22/17 Time of Encounter: 07:45 - Discharge Diagnosis (1) COPD exacerbation Priority: Primary Status: Acute (2) Atypical chest pain Priority: Secondary Status: Chronic (3) Hyperlipidemia Priority: Secondary Status: Chronic Qualifiers: Hyperlipidemia type: mixed hyperlipidemia Qualified Code(s): E78.2 - Mixed hyperlipidemia (4) Hypertension Priority: Secondary Status: Chronic Qualifiers: Hypertension type: essential hypertension Qualified Code(s): I10 - Essential (primary) hypertension (5) Chronic diastolic CHF (congestive heart failure) Priority: Secondary Status: Chronic (6) Hypokalemia Priority: Secondary Status: Acute (7) Lactic acidosis Priority: Secondary Status: Acute (8) DVT prophylaxis Priority: Secondary Status: Acute - Discharge Medications Prescriptions: Azithromycin [Zithromax] 500 mg PO DAILY #2 tablet GuaiFENesin ER [Mucinex] 600 mg PO Q12H #6 tbbp.12hr predniSONE [PredniSONE] 40 mg PO DAILY #2 tablet Home Medications: Budesonide/Formoterol 160/4.5 [Symbicort] 2 puff IH BIDR 04/21/15 [History] Levothyroxine [Synthroid] 100 mcg PO QAM 04/21/15 [History] Tiotropium [Spiriva] 18 mcg IH QAM 04/21/15 [History] metFORMIN [Glucophage] 1,000 mg PO BID 04/21/15 [History] Atorvastatin Calcium [Lipitor] 40 mg PO DAILY 02/04/16 [History] Montelukast [Singulair] 10 mg PO HS 02/04/16 [History] Oxygen 2 l NS AD PRN 03/17/16 [History] Insulin Glargine [Lantus] 80 unit SQ QPM 03/25/16 [History] Insulin Glargine [Lantus] 90 unit SQ QAM 03/25/16 [History] Albuterol Sulfate [Albuterol Inhaler] 2 puff IH Q4HR PRN 05/01/16 [History] Citalopram Hydrobromide [Citalopram HBr] 40 mg PO DAILY 05/01/16 [History] Raloxifene [Evista] 60 mg PO DAILY 05/01/16 [History] Aripiprazole [Abilify] 10 mg PO HS tablet 05/03/16 [Rx] Fenofibrate Nanocrystallized [Tricor] 145 mg PO DAILY 06/15/16 [History] Clopidogrel [Plavix] 75 mg PO QAM tablet 06/18/16 [Rx] Aspirin 81 mg PO DAILY #60 tab.chew 12/06/16 [Rx] Mag Hydrox/Al Hydrox/Simeth [Maalox] 30 ml PO Q6H PRN 30 Days oral.susp [Rx] Cholecalciferol (D-3) [Vitamin D] 1,000 unit PO DAILY 04/27/17 [History] Metoclopramide [Reglan] 10 mg PO TID 04/27/17 [History] Metoprolol XL (24 HR) Succ [Toprol Xl] 50 mg PO DAILY 04/27/17 [History] Insulin LISPRO [Humalog Kwikpen U-100] 2 - 10 unit SQ TID PRN 05/09/17 [History] clonazePAM [Klonopin] 1 mg PO DAILY PRN 05/28/17 [History] Magnesium Oxide [Mag-Ox] 400 mg PO DAILY #0 tab 05/29/17 [Rx] Bumetanide 2 mg PO BID 06/11/17 [History] Gabapentin [Neurontin] 800 mg PO 5XD 06/11/17 [History] Omeprazole [PriLOSEC] 20 mg PO BIDAC 06/11/17 [History] Potassium Chloride 20 meq PO BID 06/11/17 [History] Tizanidine HCl [Zanaflex] 4 mg PO TID PRN 06/11/17 [History] amLODIPine [Norvasc] 2.5 mg PO DAILY 06/11/17 [History] metOLazone [Zaroxolyn] 2.5 mg PO DAILY PRN 06/11/17 [History] Isosorbide MONOnitrate (24 HR) [Imdur] 120 mg PO DAILY 06/26/17 [History] [place]-3 Fatty Acids/Fish Oil [Fish Oil 1,000 mg Softgel] 1 cap PO DAILY [History] Nortriptyline [Pamelor] 25 mg PO HS 06/27/17 [History] DiphenhydraMINE [Benadryl] 25 mg PO HS 08/29/17 [History] Roflumilast [Daliresp] 500 mcg PO DAILY #30 tablet 09/09/17 [Rx] Buspirone HCl [Buspar] 20 mg PO BID 09/12/17 [History] Buprenorphine [Butrans] 1 patch TD QWEEK 09/19/17 [History] Tramadol HCl [Ultram] 50 mg PO TID PRN 09/19/17 [History] Azithromycin [Zithromax] 500 mg PO DAILY #2 tablet 09/22/17 [Rx] GuaiFENesin ER [Mucinex] 600 mg PO Q12H #6 tbbp.12hr 09/22/17 [Rx] predniSONE [PredniSONE] 40 mg PO DAILY #2 tablet 09/22/17 [Rx] Allergies/Adverse Reactions: 3 Allergy/AdvReac Type Severity Reaction Status Date / Time No Known Allergies Allergy Verified 09/19/17 09:56 Procedures/tests Complete & Pending: Procedures Performed prior 72 hours Category Date Time Status ECG 12 lead ECG [ECG] Routine Y 09/20/17 01:04 Completed Date of admission: 09/19/17 14:06 Primary care physician: PCP NONE Consults: 09/19/17 20:55 Consult to Nurse Navigator [CONS] Routine Comment: Discharging clinician: Shorty Hernandez Anticipated date of discharge: 09/22/17 - Patient Status Disposition: Home, Self-Care Condition: Good Functional capacity at discharge: independent ambulation Overall status at discharge: patient is back to baseline - Discharge Instructions Instructions: Prednisone (By mouth), Guaifenesin (By mouth), Azithromycin (By mouth), Chronic Obstructive Pulmonary Disease (DC) Follow Up With: Sam Villeda DO [Resident] - 09/29/17 10:15 am Additional Instructions: Finish in antibiotic and prednisone to completion follow up with PCP and wants to weeks use oxygen at all times return the hospital should you develop fever, chills, worsening shortness of breath - Diet and Activity Activity: resume usual activities as tolerated Diet: diabetic diet Hospital course: Ms. Lynch is a 61 year old female with history of CAD, COPD, and diastolic CHF who presented to the ED this evening with complaint of shortness of breath and chest pain. She states that she has been short of breath with the same continuous chest pain for the past three weeks and has been admitted three times this past month for similar symptoms. She states that she is typically able to ambulate around her home without oxygen (just uses it to sleep and when walking long distances), but for the past month she has been unable to ambulate more than a few steps before gasping and requiring oxygen. She does not think she has had recent weight gain. She is coughing but denies significant sputum production. She reported that she has been admitted 3 times in the past 3 weeks for COPD in CHF exacerbation. Chest pain is located at the left anterior chest, is pressure-like in nature and non-radiating. Patient cannot identify any exacerbating or relieving factors. Chronic chest pain likely secondary to COPD. Patient not complaining of chest pain this AM. Troponin undetectable x2 , ECG showed no acute ischemic changes. Troponins negative. ECHO 05/11/2017 showed LVEF 60-65%, moderate left ventricular diastolic dysfunction, no evidence pulmonary hypertension, no significant valvular dysfunction. CXR showed no acute pulmonary disease. Head CT should no acute intracranial optimality. BNP 21. Urinalysis normal. The patient was then admitted for CPD exacerbation and started on azithromycin and prednisone, duonebs, and supplemental oxygen. She was also hypokalemia with potassium of 2.9, potassium was supplemented during admission. She was a febrile. Upon discharge the patient reported that her dyspnea had improved. She also found out that she was supposed to be on continuous oxygen to leaders throughout the day. She reported that she felt safe to go home at this time. She is to follow up with her family care physician and once 2 weeks. She is to continue the azithromycin and prednisone to completion. She denied chest pain, fever, chills, wheezing. She is alert and oriented times 3 with full capacity. She stated clear understanding of the treatment plan. - Time Spent with Patient Total time spent providing and/or coordinating discharge services: Greater than 30 minutes - Constitutional Vitals: Temp Pulse Resp BP Pulse Ox 97.4 F L 72 17 170/82 99 09/22/17 06:43 09/22/17 06:43 09/22/17 06:43 09/22/17 06:43 09/22/17 06:43 General appearance: Present: cooperative, A&O X 3, morbidly obese, pleasant, no acute distress, answers questions appropriately Exam: Gen.: Vitals noted. No acute distress. AAOx3 HEENT: oropharynx clear, Normocephalic, atraumatic Neck: Supple. No adenopathy. Cardiac: RRR, no murmur, +S1/S2 Pulmonary: CTA bilaterally with decreased breathe sounds, no wheezes, rales or rhonchi, equal chest expansion Abdomen: soft, nontender, Bowel sounds noted, no guarding Extremities: no BLE edema, or clubbing Neuro: A&Ox3, moves all extremities, no focal deficits Psych: Appropriate mood and behavior <Shorty Hernandez - Last Filed: 09/22/17 14:43> Date of Encounter: 09/22/17 Procedures/tests Complete & Pending: Procedures Performed prior 72 hours Category Date Time Status ECG 12 lead ECG [ECG] Routine Y 09/20/17 01:04 Completed Date of admission: 09/19/17 14:06 Primary care physician: PCP NONE Consults: 09/19/17 20:55 Consult to Nurse Navigator [CONS] Routine Comment: Hospital course: Ms. Lynch is a 61 year old female - Time Spent with Patient Total time spent providing and/or coordinating discharge services: - Constitutional Vitals: Temp Pulse Resp BP Pulse Ox 97.4 F L 73 17 144/73 96 09/22/17 11:35 09/22/17 11:35 09/22/17 11:35 09/22/17 11:35 09/22/17 11:35 - Attending Attestation I personally interviewed and examined this patient. I agree with the findings, assessment, plan of Dr. Hernandez internal medicine resident. Patient has improved significantly. She will continue on oxygen, now continuously at 2 L per nasal cannula. She was noted to have a normal ejection fraction on echocardiogram done in April 2017. She was started on azithromycin for suspected bronchitis as well as a steroid taper for suspected COPD exacerbation. Patient otherwise was doing well and deemed stable for discharge. The treatment is spent on discharge and coordination of care.
[2017-09-22] MEDS: amLODIPine 5 MG TABLET PO SCH (09:06)
[2017-09-22] MEDS: Aspirin 81 MG TAB.CHEW PO SCH (09:07)
[2017-09-22] MEDS: Isosorbide MONOnitrate (24 HR) 60 MG TAB.ER.24H PO SCH (09:07)
[2017-09-22] MEDS: Metoprolol XL (24 HR) Succ 50 MG TAB.ER.24H PO SCH (09:07)
[2017-09-22] MEDS: Fenofibrate 54 MG TABLET PO SCH (09:07)
[2017-09-22] MEDS: predniSONE 20 MG TABLET PO SCH (09:07)
[2017-09-22] MEDS: Furosemide 40 MG/4 ML VIAL IVP SCH (09:08)
[2017-09-22] MEDS: Magnesium Oxide 400 MG TABLET PO SCH (09:08)
[2017-09-22] MEDS: Azithromycin 250 MG TABLET PO SCH (09:08)
[2017-09-22] MEDS: Insulin LISPRO 300 UNITS/3 ML VIAL SQ SCH ×2 (09:09→12:03)
[2017-09-22] MEDS: Insulin DETEMIR 100 UNIT/ML X5UNITS SQ SCH (09:09)
[2017-09-22] MEDS: Gabapentin 400 MG CAPSULE PO SCH ×3 (09:32→12:03)
[2017-09-22] MEDS: Budesonide/Formoterol 160/4.5 MDI IH SCH (10:29)
[2017-09-22 11:39] VITALS: BP 144/73
[2017-09-22] MEDS ORDERED: Insulin LISPRO 300 UNITS/3 ML VIAL SQ SCH (21:00)
== END 2017-09-22 14:34 | disposition home or self-care (01) ==
LOC: EMEROO 09:50 → 2ANU 09:50
PROVIDERS: ADMIT Internal Medicine; ATTEND Internal Medicine

== ENCOUNTER 2017-09-29 09:55 | Inpatient (IN) ==
[2017-09-29] MEDS ORDERED: Ipratropium/Albuterol Neb 3 ML IH ONE (10:30)
[2017-09-29] MEDS ORDERED: methylPREDNISolone 125 MG/2 ML VIAL IVP ONE (10:30)
--- NOTE | 2017-09-29 10:33 | Emergency Department Note ---
Disposition Clinical Impression: Lactic acidosis, Chest pain, rule out acute myocardial infarction, Dehydration Congestive heart failure Qualifiers: Congestive heart failure type: unspecified Congestive heart failure chronicity : unspecified Qualified Code(s): I50.9 - Heart failure, unspecified UTI (urinary tract infection) Qualifiers: Urinary tract infection type: acute cystitis Hematuria presence: without hematuria Qualified Code(s): N30.00 - Acute cystitis without hematuria Disposition: Admitted As Inpatient Condition: Fair Referrals: NONE,PCP [Primary Care Provider] - Forms: ED Satisfaction Letter Time of Disposition: 13:21 SOB HPI - General Chief Complaint: ED Shortness of Breath/Dyspnea Stated Complaint: KAYE Time Seen by Provider: 09/29/17 10:12 Source: patient Limitations: no limitations Nursing Notes Reviewed: Yes Vital Signs Reviewed: Yes - History of Present Illness 61-year-old female history of CHF, COPD, hypoxia on 2 L, history of CAD, presents with 2 days of shortness of breath and chest pain. Patient denies reactive cough, she states she was just admitted for CHF exacerbation concern for dysuria as well and low urinary output, patient states that she has been having her seen shortness of breath and today she is in worse fluid on her legs. The patient denies hemoptysis or history of DVT. Patient states she is in the hospital frequently for CHF exacerbations. She is oxygen dependent at baseline. Pt Subjective Complaint: shortness of breath Onset (ago): hour(s) Severity: moderate Consistency/Duration: intermittent Improves with: oxygen Worsens with: lying flat Known history of: COPD, congestive heart failure Associated symptoms: Reports: chest pain, wheezing, orthopnea, nausea/vomiting. Denies: pain with inspiration, fever Cough present: Yes Cough Description: Involuntary Cough Frequency: Intermittent Sputum production: Yes Sputum Amount: None - Related Data Home oxygen amount: 2 liters Home Medications Medication Instructions Recorded Confirmed Budesonide/Formoterol 160/4.5 2 puff IH BIDR 04/21/15 09/29/17 [Symbicort] Levothyroxine [Synthroid] 100 mcg PO QAM 04/21/15 09/29/17 Tiotropium [Spiriva] 18 mcg IH QAM 04/21/15 09/29/17 metFORMIN [Glucophage] 1,000 mg PO BID 04/21/15 09/29/17 Atorvastatin Calcium [Lipitor] 40 mg PO DAILY 02/04/16 09/29/17 Montelukast [Singulair] 10 mg PO HS 02/04/16 09/29/17 Oxygen 2 l NS AD PRN 03/17/16 09/29/17 Insulin Glargine [Lantus] 80 unit SQ QPM 03/25/16 09/29/17 Insulin Glargine [Lantus] 90 unit SQ QAM 03/25/16 09/29/17 Albuterol Sulfate [Albuterol 2 puff IH Q4HR PRN 05/01/16 09/29/17 Inhaler] Citalopram Hydrobromide 40 mg PO DAILY 05/01/16 09/29/17 [Citalopram HBr] Raloxifene [Evista] 60 mg PO DAILY 05/01/16 09/29/17 Fenofibrate Nanocrystallized 145 mg PO DAILY 06/15/16 09/29/17 [Tricor] Cholecalciferol (D-3) [Vitamin D] 1,000 unit PO DAILY 04/27/17 09/29/17 Metoclopramide [Reglan] 10 mg PO TID 04/27/17 09/29/17 Metoprolol XL (24 HR) Succ [Toprol 50 mg PO DAILY 04/27/17 09/29/17 Xl] Insulin LISPRO [Humalog Kwikpen 2 - 10 unit SQ TID PRN 05/09/17 09/29/17 U-100] clonazePAM [Klonopin] 1 mg PO DAILY PRN 05/28/17 09/29/17 Bumetanide 2 mg PO BID 06/11/17 09/29/17 Gabapentin [Neurontin] 800 mg PO 5XD 06/11/17 09/29/17 Omeprazole [PriLOSEC] 20 mg PO BIDAC 06/11/17 09/29/17 Potassium Chloride 20 meq PO BID 06/11/17 09/29/17 Tizanidine HCl [Zanaflex] 4 mg PO TID PRN 06/11/17 09/29/17 amLODIPine [Norvasc] 2.5 mg PO DAILY 06/11/17 09/29/17 metOLazone [Zaroxolyn] 2.5 mg PO DAILY PRN 06/11/17 09/29/17 Isosorbide MONOnitrate (24 HR) 120 mg PO DAILY 06/26/17 09/29/17 [Imdur] [place]-3 Fatty Acids/Fish Oil [Fish 1 cap PO DAILY 06/26/17 09/29/17 Oil 1,000 mg Softgel] Nortriptyline [Pamelor] 25 mg PO HS 06/27/17 09/29/17 DiphenhydraMINE [Benadryl] 25 mg PO HS 08/29/17 09/29/17 Buspirone HCl [Buspar] 20 mg PO BID 09/12/17 09/29/17 Buprenorphine [Butrans] 1 patch TD QWEEK 09/19/17 09/29/17 Tramadol HCl [Ultram] 50 mg PO TID PRN 09/19/17 09/29/17 Previous Rx's Medication Instructions Recorded Aripiprazole [Abilify] 10 mg PO HS tablet 05/03/16 Clopidogrel [Plavix] 75 mg PO QAM tablet 06/18/16 Aspirin 81 mg PO DAILY #60 tab.chew 12/06/16 Mag Hydrox/Al Hydrox/Simeth 30 ml PO Q6H PRN 30 Days oral.susp 03/26/17 [Maalox] Magnesium Oxide [Mag-Ox] 400 mg PO DAILY #0 tab 05/29/17 Roflumilast [Daliresp] 500 mcg PO DAILY #30 tablet 09/09/17 GuaiFENesin ER [Mucinex] 600 mg PO Q12H #6 tbbp.12hr 09/22/17 predniSONE [PredniSONE] 40 mg PO DAILY #2 tablet 09/22/17 Allergies Allergy/AdvReac Type Severity Reaction Status Date / Time No Known Allergies Allergy Verified 09/29/17 10:02 All systems ED: reviewed and negative except as stated. Review of Systems: As Per HPI Constitutional: Denies: fever Eyes: Denies: eye pain ENT ED: Denies: ear pain Cardiovascular: Reports: as per HPI, chest pain Respiratory: Reports: cough, dyspnea Gastrointestinal: Reports: nausea. Denies: abdominal pain Genitourinary: Reports: as per HPI, urgency, dysuria Musculoskeletal: Denies: back pain, neck pain Integumentary: Denies: rash Neurological: Denies: headache Past Medical History - Past Medical History Attestation: Yes The following information was validated with the patient. Source: patient Medical history: Reports: arthritis, CHF, COPD, coronary artery disease, diabetes, GERD, hyperlipidemia, hypertension, osteoporosis, renal disease, thyroid disease, TIA, venous stasis, other Surgical history: Reports: angioplasty/stent, , cholecystectomy, hysterectomy Psychiatric history: Reports: anxiety, bipolar, depression, panic disorder [employer] history: Reports: bilateral tubal ligation - Social History Smoking Status: Former smoker Smokeless Tobacco Status: No Alcohol use: Reports: none Drug use: Reports: none Physical Exam Constitutional: Middle-aged female appears older than her stated age hypoxic, hypertense Eyes: PERRLA, sclera anicteric ENT & Mouth: MM dry Neck: normal inspection, neck is supple Resp: Diminished sounds at bases bilaterally CV: RRR, no m/g/r GI: normal inspection, soft, no guarding or rigidity Neuro: A&O3, CNII-XII grossly intact, CHAMBERS Skin: Edematous pink colored lower extremities signs of venous stasis dermatitis , +2 pitting edema - General Limitations: no limitations General appearance: alert Course Course Narrative: 61-year-old female shortness of breath, concern for CHF or COPD exacerbation, I did order breathing treatment but this was given and the patient had worsening chest pain, given basic lab works chest pain workup, likely patient will need evaluation for CHF exacerbation, versus dysuria acute kidney injury 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 Plan is for diuresis. - Reevaluation(s) Reevaluation #1: After initial plan, even though she has some peripheral edema, she looks dehydrated on her lab work, her creatinine is elevated in the setting of baseline CK D but this is worse than normal her GFR is depressed. Elevated lactic acidosis but no signs of infection other than possible UTI we will cover her for UTI with Rocephin, but plan for gentle fluid readministration, and admission the hospitalist service. Time: 13:10 Vital Signs Temperature 98.3 F 09/29/17 10:02 Pulse Rate 82 09/29/17 10:02 Respiratory Rate 24 09/29/17 10:02 Blood Pressure 110/65 09/29/17 10:02 O2 Sat by Pulse Oximetry 96 09/29/17 10:02 Temperature 98.3 F 09/29/17 10:02 Pulse Rate 79 09/29/17 12:42 Respiratory Rate 18 09/29/17 12:42 Blood Pressure 138/74 09/29/17 12:42 O2 Sat by Pulse Oximetry 93 09/29/17 12:42 Oxygen Delivery Oxygen Delivery Nasal Cannula Shortness of Breath/Dyspnea - Differential Diagnosis Likely: acute exacerbation of chronic obstructive airways disease, congestive heart failure, pneumonia - Medical Records Medical records reviewed: Yes I reviewed the patient's medical records. - Lab Data Lab results reviewed: Yes I reviewed the patient's lab results. Result diagrams: 09/29/17 10:48 09/29/17 10:48 Lab Results 09/29/17 09/29/17 09/29/17 Range/Units 10:48 10:48 10:48 WBC 12.5 H (4.3-11.1) K/mcL RBC 3.99 (3.82-4.97) M/mcL Hgb 10.1 L (11.5-15.4) g/dL Hct 33.0 L (35.3-44.9) % MCV 82.7 L (83.0-100.0) fL MCH 25.3 L (28.0-33.3) pg MCHC 30.6 L (31.6-35.5) g/dL RDW 15.7 H (11.5-14.5) % Plt Count 247 (140-400) K/mcL MPV 11.1 (9.4-12.4) fL Immature Gran % 1.3 (0-4) % Seg Neutrophils % 69.5 % Lymphocytes % 22.8 % Monocytes % 4.4 % Eosinophils % 1.4 % Basophils % 0.6 % Neutrophils # 8.7 (1.6-8.9) K/mcL Lymphocytes # 2.8 (0.6-4.6) K/mcL Monocytes # 0.6 (0.0-1.3) K/mcL Eosinophils # 0.2 (0.0-0.6) K/mcL Basophils # 0.1 (0.0-0.2) K/mcL Nucleated RBCs/100 WBC 0.2 H (0) /100 WBC Sodium 137 (136-145) mEq/L Potassium 2.8 L (3.5-5.1) mEq/L Chloride 92 L (98-107) mEq/L Carbon Dioxide 31 H (23-29) mEq/L BUN 45 H (6-20) mg/dL Creatinine 1.57 H (0.60-1.20) mg/dL Est GFR ( Amer) 41 L (> 60) Est GFR (Non-Af Amer) 34 L (> 60) BUN/Creatinine Ratio 29 H (6-26) Glucose 133 H (70-105) mg/dL Calculated Osmolality 297 (280-300) Lactic Acid 2.7 H (0.5-2.2) mmol/L Calcium 9.6 (8.6-10.3) mg/dL Troponin I (< 0.04) ng/mL B-Natriuretic Peptide (Less than 100) pg/mL Urine Color (Yellow) Urine Clarity (Clear) Urine pH (5.0-8.0) pH Units Ur Specific [place] (1.010-1.025) Urine Protein (Neg-Trace) mg/dL Urine Glucose (UA) (Normal) mg/dL Urine Ketones (Negative) mg/dL Urine Blood (Negative) Urine Nitrite (Negative) Urine Bilirubin (Negative) Urine Urobilinogen (Normal) mg/dL Ur Leukocyte Esterase (Negative) Urine Microscopic WBC (0-3) per hpf Ur Squamous Epith Cells (None-Few) per lpf Urine Bacteria (None-Few) per hpf Hyaline Casts (None-Few) per lpf Ur Culture Indicated? (NO) 09/29/17 09/29/17 09/29/17 Range/Units 10:48 10:48 11:10 WBC (4.3-11.1) K/mcL RBC (3.82-4.97) M/mcL Hgb (11.5-15.4) g/dL Hct (35.3-44.9) % MCV (83.0-100.0) fL MCH (28.0-33.3) pg MCHC (31.6-35.5) g/dL RDW (11.5-14.5) % Plt Count (140-400) K/mcL MPV (9.4-12.4) fL Immature Gran % (0-4) % Seg Neutrophils % % Lymphocytes % % Monocytes % % Eosinophils % % Basophils % % Neutrophils # (1.6-8.9) K/mcL Lymphocytes # (0.6-4.6) K/mcL Monocytes # (0.0-1.3) K/mcL Eosinophils # (0.0-0.6) K/mcL Basophils # (0.0-0.2) K/mcL Nucleated RBCs/100 WBC (0) /100 WBC Sodium (136-145) mEq/L Potassium (3.5-5.1) mEq/L Chloride (98-107) mEq/L Carbon Dioxide (23-29) mEq/L BUN (6-20) mg/dL Creatinine (0.60-1.20) mg/dL Est GFR ( Amer) (> 60) Est GFR (Non-Af Amer) (> 60) BUN/Creatinine Ratio (6-26) Glucose (70-105) mg/dL Calculated Osmolality (280-300) Lactic Acid (0.5-2.2) mmol/L Calcium (8.6-10.3) mg/dL Troponin I < 0.03 (< 0.04) ng/mL B-Natriuretic Peptide 22 (Less than 100) pg/mL Urine Color Yellow (Yellow) Urine Clarity Slightly Hazy (Clear) Urine pH 5.0 (5.0-8.0) pH Units Ur Specific [place] 1.020 (1.010-1.025) Urine Protein Negative (Neg-Trace) mg/dL Urine Glucose (UA) Normal (Normal) mg/dL Urine Ketones Negative (Negative) mg/dL Urine Blood Negative (Negative) Urine Nitrite Negative (Negative) Urine Bilirubin Negative (Negative) Urine Urobilinogen Normal (Normal) mg/dL Ur Leukocyte Esterase Moderate H (Negative) Urine Microscopic WBC 30-50 H (0-3) per hpf Ur Squamous Epith Cells Few (None-Few) per lpf Urine Bacteria Many H (None-Few) per hpf Hyaline Casts Many H (None-Few) per lpf Ur Culture Indicated? YES A (NO) - Radiology Data Radiology results reviewed: Yes I reviewed the patient's radiology results. Chest X-Ray 09/29/17 10:30 IMPRESSION: Mild bibasilar atelectasis. Otherwise stable exam. D/ / Thomas López MD / Thomas López MD Interpreting Provider: Thoams López MD - EKG Data EKG attestation: Yes I reviewed and interpreted this EKG. EKG shows normal: Reports: sinus rhythm Rate: Reports: normal (82 bpm [place] 138 QRS 93 QTc 432 no evidence of acute ischemic changes.. Q waves. inferior)
[2017-09-29] MEDS ORDERED: Furosemide 40 MG/4 ML VIAL IVP ONE (10:44)
[2017-09-29 10:58] LABS: Basophils # 0.1 K/mcL (0.0-0.2); Basophils % 0.6 %; Eosinophils # 0.2 K/mcL (0.0-0.6); Eosinophils % 1.4 %; Hemoglobin 10.1 g/dL (11.5-15.4); Immature Granulocytes % 1.3 % (0-4); Lymphocytes # 2.8 K/mcL (0.6-4.6); Lymphocytes % 22.8 %; Mean Corpuscular HGB Conc 30.6 g/dL (31.6-35.5); Mean Corpuscular Hemoglobin 25.3 pg (28.0-33.3); Mean Corpuscular Volume 82.7 fL (83.0-100.0); Mean Platelet Volume 11.1 fL (9.4-12.4); Monocytes # 0.6 K/mcL (0.0-1.3); Monocytes % 4.4 %; Neutrophils # 8.7 K/mcL (1.6-8.9); Nucleated Red Blood Cells 0.2 /100 WBC (0); Platelet Count 247 K/mcL (140-400); Red Blood Count 3.99 M/mcL (3.82-4.97); Red Cell Distribution Width 15.7 % (11.5-14.5); Segmented Neutrophils % 69.5 %
[2017-09-29 11:18] LABS: Calcium 9.6 mg/dL (8.6-10.3); Potassium 2.8 mEq/L (3.5-5.1)
[2017-09-29 11:32] LABS: Bilirubin,Urine Negative (Negative); Blood,Urine Negative (Negative); Clarity,Urine Slightly Hazy (Clear); Color,Urine Yellow (Yellow); Glucose,Urine (UA) Normal (Normal); Ketones,Urine Negative (Negative); Protein,Urine Negative (Neg-Trace); Urobilinogen,Urine Normal (Normal)
[2017-09-29 11:33] LABS: Leukocyte Esterase,Urine Moderate (Negative); Nitrite,Urine Negative (Negative)
--- NOTE | 2017-09-29 11:43 | Emergency Department Note ---
START Narrative - START START: I examined this patient and my medical decision-making was reviewed with the Resident Physician. I agree with the documented findings, disposition and treatment plan as described except to the extent set forth below. 61-year-old female presents to the emergency room shortness of breath and difficulty breathing. Patient states she has gained weight in the past few days as well as increasing lower leg swelling. She has a history of congestive heart failure. She also has a history of COPD. She did not do any breathing treatments at home this morning. She states that she feels more short of breath than normal in addition to the lower leg swelling. We will workup for his COPD CHF presentation.
[2017-09-29 11:48] LABS: Hyaline Casts,Urine Many per lpf (None-Few)
[2017-09-29 11:49] LABS: Bacteria,Urine Many per hpf (None-Few); Squamous Epithelial Cell,Urine Few per lpf (None-Few)
[2017-09-29 11:50] LABS: WBC,Urine 30-50 per hpf (0-3)
[2017-09-29] MEDS ORDERED: 0.9 % Sodium Chloride 500 ML IVC ONE (12:08)
[2017-09-29] MEDS ORDERED: Ondansetron 4 MG/2 ML VIAL IVP ONE (12:21)
[2017-09-29] MEDS ORDERED: cefTRIAXone 2,000 MG in Water for inj. (sterile) 20 ML 20 ML IVP ONE (12:30)
--- NOTE | 2017-09-29 16:41 | Internal Med History&Physical ---
Date of Encounter: 09/29/17 Time of Encounter: 13:00 Assessment and Plan (1) Acute exacerbation of chronic obstructive pulmonary disease (COPD) Current visit: No Status: Acute -Will continue IV Solu-Medrol in addition to scheduled DuoNeb's (2) Acute on chronic diastolic (congestive) heart failure Current visit: Yes Status: Acute -Patient reports of a 6 pound weight gain over 24 hours in addition to worsening lower extremity edema -Patient a BNP of 22 but she is obese; chest x-ray follow-up vascular congestion -1 dose of IV Lasix 40 mg given in the ER -Due to patient's acute renal failure, will reevaluate in the morning to see if any additional IV Lasix needs to be given -Will continue patient's Metolazone and bumetanide -Reevaluate in the a.m. (3) Acute renal failure (ARF) Current visit: Yes Status: Acute -Patient's creatinine of 1.57 and GFR of 34 -Will not place patient on IV fluids due to concerns for diastolic heart failure exacerbation -Will continue to monitor Qualifiers: Acute renal failure type: unspecified Qualified Code(s): N17.9 - Acute kidney failure, unspecified (4) Hypokalemia Current visit: No Status: Acute -Patient with potassium of 2.8 -We will order replacements and place on telemetry (5) Dependence on continuous supplemental oxygen Current visit: No Status: Acute -We will continue oxygen supplementation (6) Anxiety and depression Current visit: No Status: Chronic -Continue home medications (7) Hypertension Current visit: No Status: Chronic -Controlled; continue home medications Qualifiers: Hypertension type: essential hypertension Qualified Code(s): I10 - Essential (primary) hypertension (8) Hyperlipidemia Current visit: No Status: Chronic -Continue home medications Qualifiers: Hyperlipidemia type: mixed hyperlipidemia Qualified Code(s): E78.2 - Mixed hyperlipidemia (9) Hypothyroidism Current visit: No Status: Chronic -Continue home medications Qualifiers: Hypothyroidism type: acquired Qualified Code(s): E03.9 - Hypothyroidism, unspecified (10) DVT prophylaxis Current visit: No Status: Acute -Subcutaneous heparin Internal Medicine - H&P: HPI Chief complaint: Shortness of breath Admitted From: Home Plans for Post Hospital Care: Home History of present illness: Patient is a 61-year-old female with past medical history significant for diastolic heart failure, COPD (oxygen dependent), hypertension, diabetes and morbid obesity who presents to the ER on 09/29/17 due to shortness of breath. Patient is a very poor historian but reports of recently being discharged from [facility] with heart failure and COPD exacerbation. Patient reports of no improvement in shortness of breath with a recent 6 pound weight gain over 24 hours. Patient also reports of worsening lower extremity edema so she decided to come to the ER for evaluation. In the ER, x-ray showed mild bibasilar atelectasis; BNP 22 and troponin negative. Patient will be admitted to the medical surgical floor for suspected heart failure and COPD exacerbation. Past Med Surg Social Fam HX - Past Medical History Medical history: arthritis, CHF, COPD, coronary artery disease, diabetes, GERD, hyperlipidemia, hypertension, osteoporosis, renal disease, thyroid disease, TIA , venous stasis, other Psychiatric history: anxiety, bipolar, depression, panic disorder - Past Surgical History Surgical History: angioplasty/stent, , cholecystectomy, hysterectomy - Social History Smoking Status: Former smoker Smokeless Tobacco Status: No Alcohol use: none Drug use: none - Family History Brother Adopted: No Family Member Ethnicity: Non- Living Status: Hx Family Cardiac Disorders: Yes Father Adopted: No Family Member Ethnicity: Non- Living Status: Hx Family Cardiac Disorders: Yes (HD, HLD, HTN, MT, Triple Bypass) Hx Family Neurologic Disorders: Yes (Dementia) Mother Adopted: No Family Member Ethnicity: Non- Living Status: Hx Family Cardiac Disorders: Yes (MT, HTN, HLD, Strokes x5) Hx Family Respiratory Disorders: No Hx Family Cancer: No Hx Family GI Disorders: No Hx Family Endocrine Disorder: Yes (DM) Hx Family Neuromuscular Disorders: No Hx Family Neurologic Disorders: Yes (Strokes) Hx Family HEENT Disorders: No Hx Family Autoimmune Disorders: No Internal Medicine - H&P: Meds Budesonide/Formoterol 160/4.5 [Symbicort] 2 puff IH BIDR 04/21/15 [History] Levothyroxine [Synthroid] 100 mcg PO QAM 04/21/15 [History] Tiotropium [Spiriva] 18 mcg IH QAM 04/21/15 [History] metFORMIN [Glucophage] 1,000 mg PO BID 04/21/15 [History] Atorvastatin Calcium [Lipitor] 40 mg PO DAILY 02/04/16 [History] Montelukast [Singulair] 10 mg PO HS 02/04/16 [History] Oxygen 2 l NS AD PRN 03/17/16 [History] Insulin Glargine [Lantus] 80 unit SQ QPM 03/25/16 [History] Insulin Glargine [Lantus] 90 unit SQ QAM 03/25/16 [History] Albuterol Sulfate [Albuterol Inhaler] 2 puff IH Q4HR PRN 05/01/16 [History] Citalopram Hydrobromide [Citalopram HBr] 40 mg PO DAILY 05/01/16 [History] Raloxifene [Evista] 60 mg PO DAILY 05/01/16 [History] Aripiprazole [Abilify] 10 mg PO HS tablet 05/03/16 [Rx] Fenofibrate Nanocrystallized [Tricor] 145 mg PO DAILY 06/15/16 [History] Clopidogrel [Plavix] 75 mg PO QAM tablet 06/18/16 [Rx] Aspirin 81 mg PO DAILY #60 tab.chew 12/06/16 [Rx] Mag Hydrox/Al Hydrox/Simeth [Maalox] 30 ml PO Q6H PRN 30 Days oral.susp [Rx] Cholecalciferol (D-3) [Vitamin D] 1,000 unit PO DAILY 04/27/17 [History] Metoclopramide [Reglan] 10 mg PO TID 04/27/17 [History] Metoprolol XL (24 HR) Succ [Toprol Xl] 50 mg PO DAILY 04/27/17 [History] Insulin LISPRO [Humalog Kwikpen U-100] 2 - 10 unit SQ TID PRN 05/09/17 [History] clonazePAM [Klonopin] 1 mg PO DAILY PRN 05/28/17 [History] Magnesium Oxide [Mag-Ox] 400 mg PO DAILY #0 tab 05/29/17 [Rx] Bumetanide 2 mg PO BID 06/11/17 [History] Gabapentin [Neurontin] 800 mg PO 5XD 06/11/17 [History] Omeprazole [PriLOSEC] 20 mg PO BIDAC 06/11/17 [History] Potassium Chloride 20 meq PO BID 06/11/17 [History] Tizanidine HCl [Zanaflex] 4 mg PO TID PRN 06/11/17 [History] amLODIPine [Norvasc] 2.5 mg PO DAILY 06/11/17 [History] metOLazone [Zaroxolyn] 2.5 mg PO DAILY PRN 06/11/17 [History] Isosorbide MONOnitrate (24 HR) [Imdur] 120 mg PO DAILY 06/26/17 [History] [place]-3 Fatty Acids/Fish Oil [Fish Oil 1,000 mg Softgel] 1 cap PO DAILY [History] Nortriptyline [Pamelor] 25 mg PO HS 06/27/17 [History] DiphenhydraMINE [Benadryl] 25 mg PO HS 08/29/17 [History] Roflumilast [Daliresp] 500 mcg PO DAILY #30 tablet 09/09/17 [Rx] Buspirone HCl [Buspar] 20 mg PO BID 09/12/17 [History] Buprenorphine [Butrans] 1 patch TD QWEEK 09/19/17 [History] Tramadol HCl [Ultram] 50 mg PO TID PRN 09/19/17 [History] GuaiFENesin ER [Mucinex] 600 mg PO Q12H #6 tbbp.12hr 09/22/17 [Rx] predniSONE [PredniSONE] 40 mg PO DAILY #2 tablet 09/22/17 [Rx] 3 Allergy/AdvReac Type Severity Reaction Status Date / Time No Known Allergies Allergy Verified 09/29/17 10:02 All Systems PM: A 10-system review of systems was performed and is negative for pertinent findings except as documented above in the HPI. - Constitutional Vitals: Temp Pulse Resp BP Pulse Ox 98.4 F 76 16 107/67 96 09/29/17 16:12 09/29/17 16:12 09/29/17 16:12 09/29/17 16:12 09/29/17 16:12 General appearance: Present: morbidly obese, no acute distress - Eye Eye exam: Present: normal appearance - ENT ENT exam: Present: mucous membranes moist - Respiratory Respiratory exam: Present: CTAB - Cardiovascular Cardiovascular exam: Present: RRR, +S1, +S2. Absent: diastolic murmur, gallop, rubs, systolic murmur - GI/Abdominal GI/Abdominal exam: Present: normal bowel sounds, soft, no peritoneal signs. Absent: distended, tenderness - Expanded Lower Extremities Exam Lower Leg exam: Present: swelling Ankle exam: Present: swelling Foot/Toe exam: Present: swelling - Neurological Exam Neurological exam: Present: oriented X3 - Psychiatric Psychiatric exam: Present: normal mood Internal Med - H&P Results - Labs CBC & Chem 7: 09/29/17 10:48 09/29/17 10:48
[2017-09-29] MEDS ORDERED: Naloxone 0.4 MG/ML INJ IVP PRN (17:17)
[2017-09-29] MEDS ORDERED: Mag Hydrox/Al Hydrox/Simeth 30 ML UDC PO PRN (17:27)
[2017-09-29] MEDS ORDERED: metOLazone 2.5 MG TABLET PO PRN (17:27)
[2017-09-29] MEDS ORDERED: NON-FORMULARY MEDICATION 1 EACH EACH (Insulin Lispro [Humalog Kwikpen U-100] 0 UNIT) SQ PRN (17:27)
[2017-09-29] MEDS ORDERED: Buprenorphine [Butrans] 1 PATCH TP SCH (17:30)
[2017-09-29] MEDS ORDERED: Insulin DETEMIR 100 UNIT/ML X5UNITS SQ SCH ×2 (18:00→21:00)
[2017-09-29] MEDS: traMADol 50 MG TABLET PO PRN (18:40)
[2017-09-29] MEDS: *HR* Heparin 5,000 UNIT/ML VIAL SQ SCH (18:40)
[2017-09-29] MEDS: Bumetanide 1 MG TABLET PO SCH (18:40)
[2017-09-29] MEDS ORDERED: D5% in Water 1,000 ML IVC PRN (19:28)
[2017-09-29] MEDS ORDERED: *HR* Dextrose 50 % in Water (Syg) 50 ML SYRINGE IVP PRN (19:28)
[2017-09-29] MEDS ORDERED: Dextrose Gel 15 GM/37.5 ML TUBE PO PRN ×2 (19:28)
[2017-09-29] MEDS ORDERED: Gabapentin 400 MG CAPSULE PO SCH ×2 (20:00→21:00)
[2017-09-29] MEDS: Ipratropium/Albuterol Neb 3 ML IH SCH ×2 (20:10→23:44)
[2017-09-29] MEDS: Budesonide/Formoterol 160/4.5 MDI IH SCH (20:11)
[2017-09-29] MEDS: ARIPiprazole 10 MG TABLET PO SCH (20:22)
[2017-09-29] MEDS ORDERED: Insulin LISPRO 300 UNITS/3 ML VIAL SQ SCH (21:00)
[2017-09-29] MEDS: clonazePAM 1 MG TABLET PO PRN (22:35)
[2017-09-30] MEDS: MethylPREDNISolone 40 MG/ML VIAL IVP SCH ×3 (01:26→17:33)
[2017-09-30] MEDS: traMADol 50 MG TABLET PO PRN ×4 (01:26→20:20)
[2017-09-30] MEDS ORDERED: Potassium Chloride 20 MEQ, Lidocaine 1% 2 ML in D5% in Water 250 ML IVPB ONE (02:51)
[2017-09-30] MEDS: Ipratropium/Albuterol Neb 3 ML IH SCH ×6 (03:59→23:31)
[2017-09-30] MEDS: *HR* Heparin 5,000 UNIT/ML VIAL SQ SCH ×2 (05:59→17:32)
[2017-09-30] MEDS ORDERED: Insulin LISPRO 300 UNITS/3 ML VIAL SQ SCH ×3 (07:30→21:00)
[2017-09-30] MEDS: Budesonide/Formoterol 160/4.5 MDI IH SCH ×2 (07:32→19:34)
[2017-09-30 08:46] LABS: Basophils % 0.3 %; Eosinophils % 0.1 %; Hematocrit 34.6 % (35.3-44.9); Hemoglobin 10.4 g/dL (11.5-15.4); Immature Granulocytes % 1.3 % (0-4); Lymphocytes # 1.2 K/mcL (0.6-4.6); Lymphocytes % 11.3 %; Mean Corpuscular HGB Conc 30.1 g/dL (31.6-35.5); Mean Corpuscular Hemoglobin 25.2 pg (28.0-33.3); Mean Platelet Volume 11.6 fL (9.4-12.4); Monocytes # 0.3 K/mcL (0.0-1.3); Monocytes % 3.1 %; Neutrophils # 8.8 K/mcL (1.6-8.9); Nucleated Red Blood Cells 0.4 /100 WBC (0); Platelet Count 264 K/mcL (140-400); Red Blood Count 4.12 M/mcL (3.82-4.97); Red Cell Distribution Width 15.8 % (11.5-14.5); Segmented Neutrophils % 83.9 %
[2017-09-30] MEDS: Fenofibrate 54 MG TABLET PO SCH (08:51)
[2017-09-30] MEDS: Gabapentin 400 MG CAPSULE PO SCH ×3 (08:51→20:16)
[2017-09-30] MEDS: amLODIPine 5 MG TABLET PO SCH (08:51)
[2017-09-30] MEDS: Aspirin 81 MG TAB.CHEW PO SCH (08:51)
[2017-09-30] MEDS: Bumetanide 1 MG TABLET PO SCH ×2 (08:51→17:32)
[2017-09-30] MEDS: Magnesium Oxide 400 MG TABLET PO SCH (08:51)
[2017-09-30] MEDS: Metoprolol XL (24 HR) Succ 50 MG TAB.ER.24H PO SCH (08:52)
[2017-09-30] MEDS: Cholecalciferol (D-3) 1,000 UNIT TABLET PO SCH (08:52)
[2017-09-30] MEDS: Isosorbide MONOnitrate (24 HR) 60 MG TAB.ER.24H PO SCH (08:52)
[2017-09-30 08:59] LABS: Basophils % 0.2 %; Eosinophils % 0.1 %; Hematocrit 34.5 % (35.3-44.9); Hemoglobin 10.3 g/dL (11.5-15.4); Immature Granulocytes % 1.6 % (0-4); Lymphocytes # 1.2 K/mcL (0.6-4.6); Lymphocytes % 11.4 %; Mean Corpuscular HGB Conc 29.9 g/dL (31.6-35.5); Mean Corpuscular Hemoglobin 25.1 pg (28.0-33.3); Mean Corpuscular Volume 84.1 fL (83.0-100.0); Mean Platelet Volume 11.7 fL (9.4-12.4); Monocytes # 0.3 K/mcL (0.0-1.3); Neutrophils # 8.5 K/mcL (1.6-8.9); Nucleated Red Blood Cells 0.2 /100 WBC (0); Platelet Count 246 K/mcL (140-400); Red Cell Distribution Width 15.8 % (11.5-14.5); Segmented Neutrophils % 83.7 %
[2017-09-30] MEDS ORDERED: (Roflumilast [Daliresp] 500 MCG) PO SCH (09:00)
[2017-09-30] MEDS ORDERED: FISH OIL PO SCH (09:00)
[2017-09-30] MEDS ORDERED: FATTY ACIDS PO SCH (09:00)
[2017-09-30] MEDS ORDERED: Insulin DETEMIR 100 UNIT/ML X5UNITS SQ SCH (09:00)
[2017-09-30] MEDS ORDERED: OMEGA PO SCH (09:00)
[2017-09-30 09:07] LABS: BUN/Creatinine Ratio 33 (6-26); Blood Urea Nitrogen 33 mg/dL (6-20); Carbon Dioxide 33 mEq/L (23-29); Chloride 91 mEq/L (98-107); Glucose 433 mg/dL (70-105); Osmolality,Calculated 306 (280-300); Potassium 3.8 mEq/L (3.5-5.1); Sodium 135 mEq/L (136-145); eGFR For African Americans > 60 (> 60); eGFR For Non-African Americans 56 (> 60)
[2017-09-30 09:08] LABS: BUN/Creatinine Ratio 32 (6-26); Blood Urea Nitrogen 33 mg/dL (6-20); Calcium 9.1 mg/dL (8.6-10.3); Carbon Dioxide 34 mEq/L (23-29); Chloride 91 mEq/L (98-107); Glucose 433 mg/dL (70-105); Magnesium 1.7 mg/dL (1.6-2.6); Osmolality,Calculated 306 (280-300); Phosphorous 2.6 mg/dL (2.7-4.5); Potassium 3.8 mEq/L (3.5-5.1); Sodium 135 mEq/L (136-145); eGFR For African Americans > 60 (> 60); eGFR For Non-African Americans 55 (> 60)
[2017-09-30] MEDS: Insulin LISPRO 300 UNITS/3 ML VIAL SQ SCH ×2 (11:54→14:39)
[2017-09-30] MEDS: Ketorolac 15 MG/ML VIAL IVP PRN (11:54)
--- NOTE | 2017-09-30 13:43 | Electrocardiograph Report ---
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
[2017-09-30] MEDS ORDERED: Sennosides/Docusate Sodium TABLET PO PRN (13:48)
[2017-09-30] MEDS ORDERED: 0.9 % Sodium Chloride 500 ML IV SCH (14:15)
--- NOTE | 2017-09-30 14:43 | Internal Med Progress Note ---
Date of Encounter: 09/30/17 Time of Encounter: 13:50 - Assessment and plan (1) Acute exacerbation of chronic obstructive airways disease Current Visit: No Status: Acute Assessment and plan: Acute respiratory distress secondary to COPD exacerbation continue systemic steroids (Solumedrol 40mg IV q12h), bronchodilator support O2 supplementation monitor O2 sat, goal O2 sat: 88-92% will closely monitor respiratory status (2) Type 2 diabetes mellitus Current Visit: No Status: Chronic Assessment and plan: Noted to remain severely hyperglycemic Will start gentle IV fluids high dose sliding scale insulin algorithm monitor accuchecks q2h basal insulin and added humalog TIDAC will closely monitor, if remains hyperglycemic, will start insulin gtt ADA diet 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 mellitus complication status: with neurologic complications Diabetes mellitus complication detail: with polyneuropathy Diabetes mellitus extermination supervisor insulin use: with shelter use Qualified Code(s): E11.42 - Type 2 diabetes mellitus with diabetic polyneuropathy; Z79.4 - ferry terminal agent (current) use of insulin; Z79.4 - ferry terminal agent (current) use of insulin; Z79.4 - snf ( current) use of insulin; Z79.4 - ferry terminal agent (current) use of insulin (3) Chest pain Current Visit: No Status: Resolved Assessment and plan: Likely pleuritic given clinical presentation resolved at this time will treat underlying COPD exacerbation Qualifiers: Chest pain type: unspecified Qualified Code(s): R07.9 - Chest pain, unspecified (4) NIMO (acute kidney injury) Current Visit: No Status: Resolved Assessment and plan: resolve at this time will closely monitor renal function (5) Congestive heart failure Current Visit: Yes Status: Chronic Assessment and plan: No clinical signs of acute CHF decompensation continue home meds will closely monitor for signs of volume overload Qualifiers: Congestive heart failure type: unspecified Congestive heart failure chronicity: chronic Qualified Code(s): I50.9 - Heart failure, unspecified (6) Lactic acidosis Current Visit: Yes Status: Resolved Assessment and plan: Likely secondary to acute respiratory distress with hypoxia resolved at this time (7) DVT prophylaxis Current Visit: No Status: Acute Assessment and plan: Heparin SQ (8) Hypertension Current Visit: No Status: Chronic Assessment and plan: BP within acceptable range continue home medications Qualifiers: Hypertension type: essential hypertension Qualified Code(s): I10 - Essential (primary) hypertension (9) Hypothyroidism Current Visit: No Status: Chronic Assessment and plan: continue home dose of levothyroxine Qualifiers: Hypothyroidism type: acquired Qualified Code(s): E03.9 - Hypothyroidism, unspecified - Subjective Interval history: Pt seen and examined at bedside. Resting in bed and reports of improvement in her respiratory status. Noted to have persistent hyperglycemia. No anion gap reported. Will closely monitor BG, if remains elevated despite sliding scale insulin algorithm, will need to start insulin gtt. - Constitutional Vitals: Temp Pulse Resp BP Pulse Ox 97.9 F 81 16 108/62 91 09/30/17 10:16 09/30/17 10:16 09/30/17 10:16 09/30/17 10:16 09/30/17 10:16 General appearance: Present: A&O X 3, morbidly obese, no acute distress - Head Head exam: Present: atraumatic, normocephalic - Respiratory Respiratory exam: Absent: rales, respiratory distress, wheezes (equal air entry bilaterally ) - Cardiovascular Cardiovascular exam: Present: RRR, +S1, +S2. Absent: diastolic murmur, gallop, rubs, systolic murmur - GI/Abdominal GI/Abdominal exam: Present: normal bowel sounds, soft, no peritoneal signs. Absent: distended, tenderness - Extremities Exam Extremities exam: Present: warm, radial pulses palpable and symmetrical. Absent : calf tenderness, pedal edema (chronic stasis dermatitis in b/l LE extremities ) - Neurological Exam Neurological exam: Present: alert, oriented X3 Internal Medicine: Result - Labs CBC & Chem 7: 09/30/17 08:31 09/30/17 08:31 Labs: Short CBC 09/30/17 09/30/17 Range/Units 08:31 08:31 WBC 10.1 10.5 (4.3-11.1) K/mcL Hgb 10.3 L 10.4 L (11.5-15.4) g/dL Hct 34.5 L 34.6 L (35.3-44.9) % Plt Count 246 264 (140-400) K/mcL Neutrophils # 8.5 8.8 (1.6-8.9) K/mcL BMP 09/30/17 09/30/17 08:31 08:31 Sodium 135 L 135 L Potassium 3.8 D 3.8 Chloride 91 L 91 L Carbon Dioxide 33 H 34 H BUN 33 H 33 H Creatinine 1.01 1.02 Glucose 433 H 433 H Calcium 9.0 9.1 Consult Discharge Plan - Plan Referrals: NONE,PCP [Primary Care Provider] -
[2017-09-30] MEDS ORDERED: Insulin Human Regular 100 UNIT in 0.9 % Sodium Chloride 100 ML IVC SCH (17:00)
[2017-09-30] MEDS: tiZANidine 4 MG TABLET PO PRN ×2 (17:35→20:20)
[2017-09-30] MEDS: ARIPiprazole 10 MG TABLET PO SCH (20:16)
[2017-09-30] MEDS: clonazePAM 1 MG TABLET PO PRN (20:16)
[2017-10-01] MEDS: Ipratropium/Albuterol Neb 3 ML IH SCH ×6 (03:42→23:40)
[2017-10-01 04:56] LABS: Basophils % 0.3 %; Eosinophils # 0.1 K/mcL (0.0-0.6); Eosinophils % 0.9 %; Hematocrit 30.5 % (35.3-44.9); Hemoglobin 9.1 g/dL (11.5-15.4); Immature Granulocytes % 1.4 % (0-4); Lymphocytes % 29.7 %; Mean Corpuscular HGB Conc 29.8 g/dL (31.6-35.5); Mean Corpuscular Hemoglobin 25.3 pg (28.0-33.3); Mean Corpuscular Volume 84.7 fL (83.0-100.0); Mean Platelet Volume 11.3 fL (9.4-12.4); Monocytes # 0.6 K/mcL (0.0-1.3); Monocytes % 5.7 %; Neutrophils # 6.3 K/mcL (1.6-8.9); Nucleated Red Blood Cells 0.2 /100 WBC (0); Platelet Count 239 K/mcL (140-400); Red Cell Distribution Width 15.9 % (11.5-14.5)
[2017-10-01 05:27] LABS: BUN/Creatinine Ratio 35 (6-26); Blood Urea Nitrogen 35 mg/dL (6-20); Calcium 8.9 mg/dL (8.6-10.3); Carbon Dioxide 38 mEq/L (23-29); Chloride 95 mEq/L (98-107); Glucose 219 mg/dL (70-105); Magnesium 1.6 mg/dL (1.6-2.6); Osmolality,Calculated 305 (280-300); Potassium 3.1 mEq/L (3.5-5.1); Sodium 140 mEq/L (136-145); eGFR For African Americans > 60 (> 60); eGFR For Non-African Americans 57 (> 60)
[2017-10-01] MEDS: *HR* Heparin 5,000 UNIT/ML VIAL SQ SCH ×2 (05:45→17:07)
[2017-10-01] MEDS: MethylPREDNISolone 40 MG/ML VIAL IVP SCH (05:45)
[2017-10-01] MEDS: Budesonide/Formoterol 160/4.5 MDI IH SCH ×2 (07:06→19:47)
[2017-10-01] MEDS ORDERED: Insulin LISPRO 300 UNITS/3 ML VIAL SQ SCH ×4 (07:30→21:00)
[2017-10-01] MEDS: Nitrofurantoin (BID) 100 MG CAPSULE PO SCH ×2 (09:36→17:06)
[2017-10-01] MEDS: Gabapentin 400 MG CAPSULE PO SCH ×3 (09:36→20:58)
[2017-10-01] MEDS: Cholecalciferol (D-3) 1,000 UNIT TABLET PO SCH (09:36)
[2017-10-01] MEDS: amLODIPine 5 MG TABLET PO SCH (09:36)
[2017-10-01] MEDS: Magnesium Oxide 400 MG TABLET PO SCH (09:37)
[2017-10-01] MEDS: Fenofibrate 54 MG TABLET PO SCH (09:37)
[2017-10-01] MEDS: Bumetanide 1 MG TABLET PO SCH ×2 (09:37→17:06)
[2017-10-01] MEDS: Isosorbide MONOnitrate (24 HR) 60 MG TAB.ER.24H PO SCH (09:37)
[2017-10-01] MEDS: Metoprolol XL (24 HR) Succ 50 MG TAB.ER.24H PO SCH (09:37)
[2017-10-01] MEDS: Aspirin 81 MG TAB.CHEW PO SCH (09:37)
[2017-10-01] MEDS: Insulin LISPRO 300 UNITS/3 ML VIAL SQ SCH ×7 (09:38→23:58)
[2017-10-01] MEDS: Insulin DETEMIR 100 UNIT/ML X5UNITS SQ SCH (09:38)
[2017-10-01] MEDS: traMADol 50 MG TABLET PO PRN ×2 (09:40→15:09)
--- NOTE | 2017-10-01 10:13 | Internal Med Progress Note ---
Date of Encounter: 10/01/17 Time of Encounter: 09:35 - Assessment and plan (1) Acute exacerbation of chronic obstructive airways disease Current Visit: No Status: Acute Assessment and plan: Acute respiratory distress secondary to COPD exacerbation currently saturating well on 2L [place], which is patient's baseline home oxygen continue systemic steroids, will switch to prednisone 40mg PO qd, bronchodilator support O2 supplementation monitor O2 sat, goal O2 sat: 88-92% will closely monitor respiratory status (2) Type 2 diabetes mellitus Current Visit: No Status: Chronic Assessment and plan: Hyperglycemia persists but improved from previous day continue Levemir as per her home med list added Humalog 10units TIDAC accuchecks q4h with high dose insulin sliding scale ADA diet 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 mellitus complication status: with neurologic complications Diabetes mellitus complication detail: with polyneuropathy Diabetes mellitus nursing home insulin use: with termite technician use Qualified Code(s): E11.42 - Type 2 diabetes mellitus with diabetic polyneuropathy; Z79.4 - superintendent marine oil terminal (current) use of insulin; Z79.4 - superintendent marine oil terminal (current) use of insulin; Z79.4 - halfway ( current) use of insulin; Z79.4 - halfway (current) use of insulin (3) Chest pain Current Visit: No Status: Resolved Assessment and plan: Likely pleuritic given clinical presentation resolved at this time will treat underlying COPD exacerbation Qualifiers: Chest pain type: unspecified Qualified Code(s): R07.9 - Chest pain, unspecified (4) NIMO (acute kidney injury) Current Visit: No Status: Resolved Assessment and plan: resolve at this time will closely monitor renal function (5) Congestive heart failure Current Visit: Yes Status: Chronic Assessment and plan: No clinical signs of acute CHF decompensation continue home meds will closely monitor for signs of volume overload Qualifiers: Congestive heart failure type: unspecified Congestive heart failure chronicity: chronic Qualified Code(s): I50.9 - Heart failure, unspecified (6) Lactic acidosis Current Visit: Yes Status: Resolved Assessment and plan: Likely secondary to acute respiratory distress with hypoxia resolved at this time (7) DVT prophylaxis Current Visit: No Status: Acute Assessment and plan: Heparin SQ (8) Hypertension Current Visit: No Status: Chronic Assessment and plan: BP within acceptable range continue home medications Qualifiers: Hypertension type: essential hypertension Qualified Code(s): I10 - Essential (primary) hypertension (9) Hypothyroidism Current Visit: No Status: Chronic Assessment and plan: continue home dose of levothyroxine Qualifiers: Hypothyroidism type: acquired Qualified Code(s): E03.9 - Hypothyroidism, unspecified (10) Hypokalemia Current Visit: Yes Status: Acute Assessment and plan: K supplemented continue to monitor electrolytes and replace as needed - Subjective Interval history: Pt seen and examined at bedside. Resting in bed and reports of improvement in her respiratory status compared to previous day. Pt remained hyperglycemic and was started on insulin gtt yesterday evening. Hyperglycemia persists but improved from previous day. Currently off insulin gtt. She states she is always hyperglycemic at home and is struggling to get her blood glucose under control. Pt will benefit from an plant guard as an outpatient. - Constitutional Vitals: Temp Pulse Resp BP Pulse Ox 98.1 F 75 18 118/72 93 10/01/17 07:53 10/01/17 07:53 10/01/17 07:53 10/01/17 07:53 10/01/17 07:53 General appearance: Present: A&O X 3, morbidly obese, no acute distress - Head Head exam: Present: atraumatic, normocephalic - Eye Eye exam: Present: conjuntiva pink, sclera anicteric - Respiratory Respiratory exam: Absent: respiratory distress, wheezes Additional comments: equal air entry bilaterally - Cardiovascular Cardiovascular exam: Present: RRR, +S1, +S2. Absent: diastolic murmur, gallop, rubs, systolic murmur - GI/Abdominal GI/Abdominal exam: Present: normal bowel sounds, soft, no peritoneal signs. Absent: distended, tenderness - Extremities Exam Extremities exam: Present: warm, radial pulses palpable and symmetrical ( chronic stasis dermatitis in b/l LE ). Absent: calf tenderness - Neurological Exam Neurological exam: Present: alert, oriented X3 - Psychiatric Psychiatric exam: Present: normal affect, normal mood Internal Medicine: Result - Labs CBC & Chem 7: 10/01/17 04:39 10/01/17 04:39 Labs: Short CBC 10/01/17 Range/Units 04:39 WBC 10.1 (4.3-11.1) K/mcL Hgb 9.1 L (11.5-15.4) g/dL Hct 30.5 L (35.3-44.9) % Plt Count 239 (140-400) K/mcL Neutrophils # 6.3 (1.6-8.9) K/mcL BMP 09/30/17 10/01/17 14:56 04:39 Sodium 133 L 140 Potassium 4.0 3.1 L Chloride 90 L 95 L Carbon Dioxide 34 H 38 H BUN 36 H 35 H Creatinine 1.21 H 1.00 Glucose 534 H* 219 H Calcium 9.0 8.9 Consult Discharge Plan - Plan Referrals: NONE,PCP [Primary Care Provider] -
[2017-10-01] MEDS: predniSONE 20 MG TABLET PO SCH (17:06)
[2017-10-01] MEDS: ARIPiprazole 10 MG TABLET PO SCH (20:57)
[2017-10-01] MEDS: Ketorolac 15 MG/ML VIAL IVP PRN (20:58)
[2017-10-01] MEDS ORDERED: Insulin DETEMIR 100 UNIT/ML X5UNITS SQ SCH (21:00)
[2017-10-02] MEDS: Ipratropium/Albuterol Neb 3 ML IH SCH ×6 (03:34→23:02)
[2017-10-02] MEDS: Insulin LISPRO 300 UNITS/3 ML VIAL SQ SCH ×9 (04:54→21:11)
[2017-10-02] MEDS: *HR* Heparin 5,000 UNIT/ML VIAL SQ SCH ×2 (04:57→16:48)
[2017-10-02] MEDS: Budesonide/Formoterol 160/4.5 MDI IH SCH ×2 (07:30→19:46)
[2017-10-02 07:38] LABS: BUN/Creatinine Ratio 40 (6-26); Blood Urea Nitrogen 32 mg/dL (6-20); Calcium 9.3 mg/dL (8.6-10.3); Carbon Dioxide 33 mEq/L (23-29); Chloride 99 mEq/L (98-107); Glucose 239 mg/dL (70-105); Magnesium 1.9 mg/dL (1.6-2.6); Osmolality,Calculated 305 (280-300); Phosphorous 2.9 mg/dL (2.7-4.5); Potassium 3.7 mEq/L (3.5-5.1); Sodium 140 mEq/L (136-145); eGFR For African Americans > 60 (> 60); eGFR For Non-African Americans > 60 (> 60)
[2017-10-02 07:54] LABS: Nucleated Red Blood Cells 0.2 /100 WBC (0); Red Cell Distribution Width 16.2 % (11.5-14.5)
[2017-10-02 07:56] LABS: Hematocrit 34.5 % (35.3-44.9); Hemoglobin 10.4 g/dL (11.5-15.4); Mean Corpuscular HGB Conc 30.1 g/dL (31.6-35.5); Mean Corpuscular Hemoglobin 25.6 pg (28.0-33.3); Mean Corpuscular Volume 84.8 fL (83.0-100.0); Mean Platelet Volume 11.4 fL (9.4-12.4); Platelet Count 242 K/mcL (140-400); Red Blood Count 4.07 M/mcL (3.82-4.97)
[2017-10-02] MEDS: Insulin DETEMIR 100 UNIT/ML X5UNITS SQ SCH (09:10)
[2017-10-02] MEDS: Ketorolac 15 MG/ML VIAL IVP PRN (09:11)
[2017-10-02] MEDS: Magnesium Oxide 400 MG TABLET PO SCH (09:11)
[2017-10-02] MEDS: Fenofibrate 54 MG TABLET PO SCH (09:11)
[2017-10-02] MEDS: Isosorbide MONOnitrate (24 HR) 60 MG TAB.ER.24H PO SCH (09:11)
[2017-10-02] MEDS: predniSONE 20 MG TABLET PO SCH (09:11)
[2017-10-02] MEDS: Gabapentin 400 MG CAPSULE PO SCH ×3 (09:11→21:03)
[2017-10-02] MEDS: amLODIPine 5 MG TABLET PO SCH (09:12)
[2017-10-02] MEDS: Cholecalciferol (D-3) 1,000 UNIT TABLET PO SCH (09:12)
[2017-10-02] MEDS: Bumetanide 1 MG TABLET PO SCH ×2 (09:12→16:47)
[2017-10-02] MEDS: Aspirin 81 MG TAB.CHEW PO SCH (09:12)
[2017-10-02] MEDS: Metoprolol XL (24 HR) Succ 50 MG TAB.ER.24H PO SCH (09:12)
[2017-10-02 09:13] LABS: Anisocytosis 1+ (Not Present); Monocytes # 0.4 K/mcL (0.0-1.3); Neutrophils # 6.2 K/mcL (1.6-8.9); Reactive Lymphocytes Present (Not Present)
[2017-10-02] MEDS: Nitrofurantoin (BID) 100 MG CAPSULE PO SCH ×2 (09:13→16:47)
[2017-10-02 09:14] LABS: Platelet Estimate Normal (Normal); Polychromasia 1+ (Not Present)
[2017-10-02] MEDS: traMADol 50 MG TABLET PO PRN ×2 (11:59→21:03)
--- NOTE | 2017-10-02 13:14 | Internal Med Progress Note ---
Date of Encounter: 10/02/17 Time of Encounter: 12:40 - Assessment and plan (1) Acute exacerbation of chronic obstructive airways disease Current Visit: No Status: Acute Assessment and plan: Acute respiratory distress secondary to COPD exacerbation currently saturating well on 2L [place], which is patient's baseline home oxygen continue systemic steroids, prednisone 40mg PO qd, bronchodilator support O2 supplementation monitor O2 sat, goal O2 sat: 88-92% will closely monitor respiratory status (2) Type 2 diabetes mellitus Current Visit: No Status: Chronic Assessment and plan: Hyperglycemia persists continue Levemir, increased to Levemir 90units qm and qhs increased Humalog to 15units TIDAC accuchecks q4h with high dose insulin sliding scale ADA diet 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 mellitus complication status: with neurologic complications Diabetes mellitus complication detail: with polyneuropathy Diabetes mellitus electrician constructor supervisor insulin use: with shelter use Qualified Code(s): E11.42 - Type 2 diabetes mellitus with diabetic polyneuropathy; Z79.4 - retail equipment associate (current) use of insulin; Z79.4 - retail equipment associate (current) use of insulin; Z79.4 - shelter ( current) use of insulin; Z79.4 - retail equipment associate (current) use of insulin (3) Chest pain Current Visit: No Status: Resolved Assessment and plan: Likely pleuritic given clinical presentation resolved at this time will treat underlying COPD exacerbation Qualifiers: Chest pain type: unspecified Qualified Code(s): R07.9 - Chest pain, unspecified (4) NIMO (acute kidney injury) Current Visit: No Status: Resolved Assessment and plan: resolve at this time will closely monitor renal function (5) Congestive heart failure Current Visit: Yes Status: Chronic Assessment and plan: No clinical signs of acute CHF decompensation continue home meds will closely monitor for signs of volume overload Qualifiers: Congestive heart failure type: unspecified Congestive heart failure chronicity: chronic Qualified Code(s): I50.9 - Heart failure, unspecified (6) Lactic acidosis Current Visit: Yes Status: Resolved Assessment and plan: Likely secondary to acute respiratory distress with hypoxia resolved at this time (7) DVT prophylaxis Current Visit: No Status: Acute Assessment and plan: Heparin SQ (8) Hypertension Current Visit: No Status: Chronic Assessment and plan: BP within acceptable range continue home medications Qualifiers: Hypertension type: essential hypertension Qualified Code(s): I10 - Essential (primary) hypertension (9) Hypothyroidism Current Visit: No Status: Chronic Assessment and plan: continue home dose of levothyroxine Qualifiers: Hypothyroidism type: acquired Qualified Code(s): E03.9 - Hypothyroidism, unspecified (10) Hypokalemia Current Visit: Yes Status: Resolved - Subjective Interval history: Pt seen and examined at bedside. Resting in bed and denies any shortness of breath or any respiratory discomfort, however noted to have persistent hyperglycemia. Adjusted insulin dose as per her insulin requirements in the last 24 hours. tentative d/c in am pending better BG control Pt will benefit from an junior high school principal as an outpatient. - Constitutional Vitals: Temp Pulse Resp BP Pulse Ox 98 F 67 16 134/78 96 10/02/17 11:00 10/02/17 11:00 10/02/17 11:00 10/02/17 11:00 10/02/17 11:00 General appearance: Present: A&O X 3, morbidly obese, no acute distress - Head Head exam: Present: atraumatic, normocephalic - Eye Eye exam: Present: conjuntiva pink, sclera anicteric - Respiratory Respiratory exam: Absent: rales (equal air entry bilaterally ), respiratory distress, wheezes - Cardiovascular Cardiovascular exam: Present: RRR, +S1, +S2. Absent: diastolic murmur, gallop, rubs, systolic murmur - GI/Abdominal GI/Abdominal exam: Present: normal bowel sounds, soft, no peritoneal signs. Absent: distended, tenderness - Extremities Exam Extremities exam: Present: warm, radial pulses palpable and symmetrical ( chronic stasis dermatitis in b/l LE ). Absent: calf tenderness - Neurological Exam Neurological exam: Present: alert, oriented X3 - Psychiatric Psychiatric exam: Present: normal affect, normal mood Internal Medicine: Result - Labs CBC & Chem 7: 10/02/17 06:52 10/02/17 06:52 Labs: Short CBC 10/02/17 Range/Units 06:52 WBC 10.6 (4.3-11.1) K/mcL Hgb 10.4 L (11.5-15.4) g/dL Hct 34.5 L (35.3-44.9) % Plt Count 242 (140-400) K/mcL Neutrophils # 6.2 (1.6-8.9) K/mcL BMP 02/04/18 06:52 Sodium 140 Potassium 3.7 Chloride 99 Carbon Dioxide 33 H BUN 32 H Creatinine 0.80 Glucose 239 H Calcium 9.3 Consult Discharge Plan - Plan Referrals: NONE,PCP [Primary Care Provider] -
[2017-10-02] MEDS: clonazePAM 1 MG TABLET PO PRN ×2 (14:25→21:03)
[2017-10-02] MEDS ORDERED: Insulin DETEMIR 100 UNIT/ML X5UNITS SQ SCH (21:00)
[2017-10-02] MEDS: ARIPiprazole 10 MG TABLET PO SCH (21:02)
[2017-10-03] MEDS: Insulin LISPRO 300 UNITS/3 ML VIAL SQ SCH ×4 (00:50→07:46)
[2017-10-03] MEDS: Ketorolac 15 MG/ML VIAL IVP PRN (02:35)
[2017-10-03 03:27] LABS: Basophils % 0.3 %; Eosinophils # 0.1 K/mcL (0.0-0.6); Eosinophils % 0.7 %; Hematocrit 32.2 % (35.3-44.9); Hemoglobin 9.9 g/dL (11.5-15.4); Immature Granulocytes % 1.2 % (0-4); Lymphocytes # 3.5 K/mcL (0.6-4.6); Lymphocytes % 30.9 %; Mean Corpuscular HGB Conc 30.7 g/dL (31.6-35.5); Mean Corpuscular Hemoglobin 25.6 pg (28.0-33.3); Mean Corpuscular Volume 83.2 fL (83.0-100.0); Mean Platelet Volume 11.3 fL (9.4-12.4); Monocytes # 0.6 K/mcL (0.0-1.3); Monocytes % 5.6 %; Nucleated Red Blood Cells 0.3 /100 WBC (0); Platelet Count 238 K/mcL (140-400); Red Blood Count 3.87 M/mcL (3.82-4.97); Red Cell Distribution Width 16.2 % (11.5-14.5); Segmented Neutrophils % 61.3 %
[2017-10-03] MEDS: Ipratropium/Albuterol Neb 3 ML IH SCH ×3 (03:34→11:24)
[2017-10-03 03:42] LABS: BUN/Creatinine Ratio 40 (6-26); Blood Urea Nitrogen 38 mg/dL (6-20); Calcium 9.2 mg/dL (8.6-10.3); Carbon Dioxide 32 mEq/L (23-29); Chloride 98 mEq/L (98-107); Glucose 257 mg/dL (70-105); Magnesium 1.7 mg/dL (1.6-2.6); Osmolality,Calculated 302 (280-300); Phosphorous 3.4 mg/dL (2.7-4.5); Potassium 3.5 mEq/L (3.5-5.1); Sodium 137 mEq/L (136-145); eGFR For African Americans > 60 (> 60); eGFR For Non-African Americans 59 (> 60)
[2017-10-03] MEDS: *HR* Heparin 5,000 UNIT/ML VIAL SQ SCH (05:05)
[2017-10-03] MEDS: Budesonide/Formoterol 160/4.5 MDI IH SCH (07:29)
[2017-10-03] MEDS: Fenofibrate 54 MG TABLET PO SCH (07:43)
[2017-10-03] MEDS: Bumetanide 1 MG TABLET PO SCH (07:43)
[2017-10-03] MEDS: predniSONE 20 MG TABLET PO SCH (07:44)
[2017-10-03] MEDS: Cholecalciferol (D-3) 1,000 UNIT TABLET PO SCH (07:44)
[2017-10-03] MEDS: Isosorbide MONOnitrate (24 HR) 60 MG TAB.ER.24H PO SCH (07:44)
[2017-10-03] MEDS: amLODIPine 5 MG TABLET PO SCH (07:44)
[2017-10-03] MEDS: Nitrofurantoin (BID) 100 MG CAPSULE PO SCH (07:45)
[2017-10-03] MEDS: Metoprolol XL (24 HR) Succ 50 MG TAB.ER.24H PO SCH (07:45)
[2017-10-03] MEDS: Aspirin 81 MG TAB.CHEW PO SCH (07:45)
[2017-10-03] MEDS: Magnesium Oxide 400 MG TABLET PO SCH (07:45)
[2017-10-03] MEDS: Gabapentin 400 MG CAPSULE PO SCH (07:45)
[2017-10-03] MEDS: clonazePAM 1 MG TABLET PO PRN (08:02)
[2017-10-03] MEDS: traMADol 50 MG TABLET PO PRN (08:03)
--- NOTE | 2017-10-03 10:44 | Discharge Summary ---
Date of Encounter: 10/03/17 Time of Encounter: 10:25 - Discharge Diagnosis (1) Acute exacerbation of chronic obstructive airways disease Priority: Primary Status: Resolved (2) Type 2 diabetes mellitus Priority: Secondary Status: Chronic 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 mellitus complication status: with neurologic complications Diabetes mellitus complication detail: with polyneuropathy Diabetes mellitus watermelon inspector insulin use: with watermelon inspector use Qualified Code(s): E11.42 - Type 2 diabetes mellitus with diabetic polyneuropathy; Z79.4 - terminal gauger (current) use of insulin; Z79.4 - retirement (current) use of insulin; Z79.4 - retirement ( current) use of insulin; Z79.4 - terminal gauger (current) use of insulin (3) Chest pain Priority: Secondary Status: Resolved Qualifiers: Chest pain type: unspecified Qualified Code(s): R07.9 - Chest pain, unspecified (4) NIMO (acute kidney injury) Priority: Secondary Status: Resolved (5) Congestive heart failure Priority: Secondary Status: Chronic Qualifiers: Congestive heart failure type: unspecified Congestive heart failure chronicity: chronic Qualified Code(s): I50.9 - Heart failure, unspecified (6) Lactic acidosis Priority: Secondary Status: Resolved (7) DVT prophylaxis Priority: Secondary Status: Acute (8) Hypertension Priority: Secondary Status: Chronic Qualifiers: Hypertension type: essential hypertension Qualified Code(s): I10 - Essential (primary) hypertension (9) Hypothyroidism Priority: Secondary Status: Chronic Qualifiers: Hypothyroidism type: acquired Qualified Code(s): E03.9 - Hypothyroidism, unspecified (10) Hypokalemia Priority: Secondary Status: Resolved (11) UTI (urinary tract infection) Priority: Secondary Status: Acute Qualifiers: Urinary tract infection type: acute cystitis Hematuria presence: without hematuria Qualified Code(s): N30.00 - Acute cystitis without hematuria - Discharge Medications Prescriptions: Nitrofurantoin (BID) [Macrobid] 100 mg PO BIDWM #9 capsule predniSONE [PredniSONE] 40 mg PO DAILY #2 tablet Home Medications: Budesonide/Formoterol 160/4.5 [Symbicort] 2 puff IH BIDR 04/21/15 [History] Levothyroxine [Synthroid] 100 mcg PO QAM 04/21/15 [History] Tiotropium [Spiriva] 18 mcg IH QAM 04/21/15 [History] metFORMIN [Glucophage] 1,000 mg PO BID 04/21/15 [History] Atorvastatin Calcium [Lipitor] 40 mg PO DAILY 02/04/16 [History] Montelukast [Singulair] 10 mg PO HS 02/04/16 [History] Oxygen 2 l NS AD PRN 03/17/16 [History] Insulin Glargine [Lantus] 80 unit SQ QPM 03/25/16 [History] Insulin Glargine [Lantus] 90 unit SQ QAM 03/25/16 [History] Albuterol Sulfate [Albuterol Inhaler] 2 puff IH Q4HR PRN 05/01/16 [History] Citalopram Hydrobromide [Citalopram HBr] 40 mg PO DAILY 05/01/16 [History] Raloxifene [Evista] 60 mg PO DAILY 05/01/16 [History] Aripiprazole [Abilify] 10 mg PO HS tablet 05/03/16 [Rx] Fenofibrate Nanocrystallized [Tricor] 145 mg PO DAILY 06/15/16 [History] Clopidogrel [Plavix] 75 mg PO QAM tablet 06/18/16 [Rx] Aspirin 81 mg PO DAILY #60 tab.chew 12/06/16 [Rx] Mag Hydrox/Al Hydrox/Simeth [Maalox] 30 ml PO Q6H PRN 30 Days oral.susp [Rx] Cholecalciferol (D-3) [Vitamin D] 1,000 unit PO DAILY 04/27/17 [History] Metoclopramide [Reglan] 10 mg PO TID 04/27/17 [History] Metoprolol XL (24 HR) Succ [Toprol Xl] 50 mg PO DAILY 04/27/17 [History] Insulin LISPRO [Humalog Kwikpen U-100] 2 - 10 unit SQ TID PRN 05/09/17 [History] clonazePAM [Klonopin] 0.5 mg PO DAILY PRN 05/28/17 [History] Magnesium Oxide [Mag-Ox] 400 mg PO DAILY #0 tab 05/29/17 [Rx] Bumetanide 2 mg PO BID 06/11/17 [History] Gabapentin [Neurontin] 800 mg PO 5XD 06/11/17 [History] Omeprazole [PriLOSEC] 20 mg PO BIDAC 06/11/17 [History] Potassium Chloride 20 meq PO BID 06/11/17 [History] Tizanidine HCl [Zanaflex] 4 mg PO TID PRN 06/11/17 [History] amLODIPine [Norvasc] 2.5 mg PO DAILY 06/11/17 [History] metOLazone [Zaroxolyn] 2.5 mg PO DAILY PRN 06/11/17 [History] Isosorbide MONOnitrate (24 HR) [Imdur] 120 mg PO DAILY 06/26/17 [History] [place]-3 Fatty Acids/Fish Oil [Fish Oil 1,000 mg Softgel] 1 cap PO DAILY [History] Nortriptyline [Pamelor] 25 mg PO HS 06/27/17 [History] DiphenhydraMINE [Benadryl] 25 mg PO HS 08/29/17 [History] Roflumilast [Daliresp] 500 mcg PO DAILY #30 tablet 09/09/17 [Rx] Buspirone HCl [Buspar] 20 mg PO BID 09/12/17 [History] Buprenorphine [Butrans] 1 patch TD QWEEK 09/19/17 [History] Tramadol HCl [Ultram] 50 mg PO TID PRN 09/19/17 [History] GuaiFENesin ER [Mucinex] 600 mg PO Q12H #6 tbbp.12hr 09/22/17 [Rx] predniSONE [PredniSONE] 40 mg PO DAILY #2 tablet 09/22/17 [Rx] Nitrofurantoin (BID) [Macrobid] 100 mg PO BIDWM #9 capsule 10/03/17 [Rx] predniSONE [PredniSONE] 40 mg PO DAILY #2 tablet 10/03/17 [Rx] Allergies/Adverse Reactions: 3 Allergy/AdvReac Type Severity Reaction Status Date / Time No Known Allergies Allergy Verified 09/29/17 10:02 Date of admission: 09/29/17 13:39 Primary care physician: PCP IKE Discharging clinician: Naila Roman Anticipated date of discharge: 10/03/17 - Patient Status Disposition: Home, Self-Care Condition: Good Functional capacity at discharge: independent ambulation Overall status at discharge: patient is back to baseline - Discharge Instructions Follow Up With: NONE,PCP [Primary Care Provider] - Additional Instructions: Please follow up with your primary care physician and broadloom weaver within five days after your discharge from the hospital. Please continue steroids as prescribed. You were noted to have urinalysis concerning for UTI for which you have been started on oral antibiotics. Please continue oral antibiotics as prescribed. Closely monitor your blood glucose at home. Resume all other medications as prescribed by your primary care physician. - Diet and Activity Activity: increase activity as tolerated Diet: diabetic diet, low fat, low cholesterol, low salt diet Hospital course: Ms. Lynch is a 61 year old female with PMH of CHF, COPD on LTOT, HTN, DM, morbid obesity who was admitted for COPD exacerbation and was found to have UTI. She was started on systemic steroids, bronchodilator support, and abx to which she responded appropriately. Her hospital course was complicated by persistent hyperglycemia. She required insulin gtt for appropriate BG control. Her insulin dosing was adjusted as per her daily insulin requirements. Her respiratory status is back to baseline and her BG are better controlled. She is stable for discharge. Pt to follow up with PCP and endocrinology after discharge. - Time Spent with Patient Total time spent providing and/or coordinating discharge services: Less than 30 minutes - Constitutional Vitals: Temp Pulse Resp BP Pulse Ox 97.4 F L 69 16 124/79 98 10/03/17 06:35 10/03/17 06:35 10/03/17 07:31 10/03/17 06:35 10/03/17 07:31 General appearance: Present: A&O X 3, morbidly obese, no acute distress - Head Head exam: Present: atraumatic, normocephalic - Eye Eye exam: Present: conjuntiva pink, sclera anicteric - Respiratory Respiratory exam: Present: CTAB. Absent: respiratory distress, wheezes - Cardiovascular Cardiovascular exam: Present: RRR, +S1, +S2. Absent: diastolic murmur, gallop, rubs, systolic murmur - GI/Abdominal GI/Abdominal exam: Present: normal bowel sounds, soft, no peritoneal signs. Absent: distended, tenderness - Extremities Exam Extremities exam: Present: warm, radial pulses palpable and symmetrical. Absent : calf tenderness - Neurological Exam Neurological exam: Present: alert, oriented X3 - Psychiatric Psychiatric exam: Present: normal affect, normal mood
[2017-10-03 10:50] VITALS: BP 116/60
[2017-10-03] MEDS ORDERED: Insulin LISPRO 300 UNITS/3 ML VIAL SQ SCH ×3 (11:30→21:00)
== END 2017-10-03 12:28 | disposition home health service (06) | DRG 190 ==
LOC: EMEROO 09:55 → 2ANU 13:39
PROVIDERS: ADMIT Internal Medicine Cardiovascular Disease; ATTEND Internal Medicine

== ENCOUNTER 2017-10-13 07:09 | Inpatient (IN) ==
[2017-10-13] MEDS ORDERED: Ipratropium/Albuterol Neb 3 ML IH ONE (07:18)
[2017-10-13] MEDS ORDERED: methylPREDNISolone 125 MG/2 ML VIAL IVP ONE (07:18)
--- NOTE | 2017-10-13 07:23 | Emergency Department Note ---
Disposition Clinical Impression: Acute exacerbation of chronic obstructive airways disease Disposition: Admitted As Inpatient Forms: ED Satisfaction Letter Time of Disposition: 09:10 General Adult HPI - General Chief complaint: ED Shortness of Breath/Dyspnea Stated complaint: SOB Time Seen by Provider: 10/13/17 07:14 Source: patient, family Limitations: no limitations Nursing Notes Reviewed: Yes Vital Signs Reviewed: Yes - History of Present Illness HPI Narrative: ED with shortness of breath. Patient chronically short of breath but worsened at 5 AM today. She states she also easily saw her PCP who told her she was getting dehydrated. Last steroids were last week. States she was told to come to the ED. Patient missed a dry cough. No fever. Mild sore throat. No body aches. No vomiting or diarrhea. She is also complaining of some redness to her legs. States it started after her dog scratched her. Pain Scale: 8 - Related Data Home Medications Medication Instructions Recorded Confirmed Budesonide/Formoterol 160/4.5 2 puff IH BIDR 04/21/15 09/29/17 [Symbicort] Levothyroxine [Synthroid] 100 mcg PO QAM 04/21/15 09/29/17 Tiotropium [Spiriva] 18 mcg IH QAM 04/21/15 09/29/17 metFORMIN [Glucophage] 1,000 mg PO BID 04/21/15 09/29/17 Atorvastatin Calcium [Lipitor] 40 mg PO DAILY 02/04/16 09/29/17 Montelukast [Singulair] 10 mg PO HS 02/04/16 09/29/17 Oxygen 2 l NS AD PRN 03/17/16 09/29/17 Insulin Glargine [Lantus] 80 unit SQ QPM 03/25/16 09/29/17 Insulin Glargine [Lantus] 90 unit SQ QAM 03/25/16 09/29/17 Albuterol Sulfate [Albuterol 2 puff IH Q4HR PRN 05/01/16 09/29/17 Inhaler] Citalopram Hydrobromide 40 mg PO DAILY 05/01/16 09/29/17 [Citalopram HBr] Raloxifene [Evista] 60 mg PO DAILY 05/01/16 09/29/17 Fenofibrate Nanocrystallized 145 mg PO DAILY 06/15/16 09/29/17 [Tricor] Cholecalciferol (D-3) [Vitamin D] 1,000 unit PO DAILY 04/27/17 09/29/17 Metoclopramide [Reglan] 10 mg PO TID 04/27/17 09/29/17 Metoprolol XL (24 HR) Succ [Toprol 50 mg PO DAILY 04/27/17 09/29/17 Xl] Insulin LISPRO [Humalog Kwikpen 2 - 10 unit SQ TID PRN 05/09/17 09/29/17 U-100] clonazePAM [Klonopin] 0.5 mg PO DAILY PRN 05/28/17 09/30/17 Bumetanide 2 mg PO BID 06/11/17 09/29/17 Gabapentin [Neurontin] 800 mg PO 5XD 06/11/17 09/29/17 Omeprazole [PriLOSEC] 20 mg PO BIDAC 06/11/17 09/29/17 Potassium Chloride 20 meq PO BID 06/11/17 09/29/17 Tizanidine HCl [Zanaflex] 4 mg PO TID PRN 06/11/17 09/29/17 amLODIPine [Norvasc] 2.5 mg PO DAILY 06/11/17 09/29/17 metOLazone [Zaroxolyn] 2.5 mg PO DAILY PRN 06/11/17 09/29/17 Isosorbide MONOnitrate (24 HR) 120 mg PO DAILY 06/26/17 09/29/17 [Imdur] [place]-3 Fatty Acids/Fish Oil [Fish 1 cap PO DAILY 06/26/17 09/29/17 Oil 1,000 mg Softgel] Nortriptyline [Pamelor] 25 mg PO HS 06/27/17 09/29/17 DiphenhydraMINE [Benadryl] 25 mg PO HS 08/29/17 09/29/17 Buspirone HCl [Buspar] 20 mg PO BID 09/12/17 09/29/17 Buprenorphine [Butrans] 1 patch TD QWEEK 09/19/17 09/29/17 Tramadol HCl [Ultram] 50 mg PO TID PRN 09/19/17 09/29/17 Previous Rx's Medication Instructions Recorded Aripiprazole [Abilify] 10 mg PO HS tablet 05/03/16 Clopidogrel [Plavix] 75 mg PO QAM tablet 06/18/16 Aspirin 81 mg PO DAILY #60 tab.chew 12/06/16 Mag Hydrox/Al Hydrox/Simeth 30 ml PO Q6H PRN 30 Days oral.susp 03/26/17 [Maalox] Magnesium Oxide [Mag-Ox] 400 mg PO DAILY #0 tab 05/29/17 Roflumilast [Daliresp] 500 mcg PO DAILY #30 tablet 09/09/17 GuaiFENesin ER [Mucinex] 600 mg PO Q12H #6 tbbp.12hr 09/22/17 Allergies Allergy/AdvReac Type Severity Reaction Status Date / Time No Known Allergies Allergy Verified 10/13/17 08:09 All systems ED: reviewed and negative except as stated. Constitutional: Denies: fever, chills Cardiovascular: Denies: chest pain Respiratory: Reports: cough, dyspnea. Denies: wheezes, hemoptysis, stridor, sputum production Gastrointestinal: Denies: nausea, vomiting, diarrhea Integumentary: Reports: other Past Medical History - Past Medical History Attestation: Yes The following information was validated with the patient. 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 Lung sounds significantly diminished. No wheezing. No rales. 2+ pitting edema to bilateral lower extremities with erythema to bilateral shins. She does have some abrasions to the right medial leg. Afebrile with stable vital signs. She is mildly tachypneic with accessory muscle use. - General Limitations: no limitations General appearance: alert - Head Head exam: atraumatic, normocephalic, normal inspection - Eye Eye exam: Present: normal appearance, PERRL - ENT ENT exam: other (Mild posterior pharynx erythema. No exudates.) - Neck Neck exam: Present: normal inspection, full ROM, trachea midline - Chest Chest inspection: Present: normal inspection - Respiratory Respiratory exam: Present: other - Cardiovascular Cardiovascular exam: Present: regular rate, normal rhythm, normal heart sounds - Abdominal Exam Abdominal exam: Present: soft, Non-Tender. Absent: tenderness, distention, guarding - Neurological Exam Neurological exam: Present: alert, oriented X3, CN II-XII intact - Psychiatric Psychiatric exam: Present: normal affect - Skin Skin exam: Present: warm, dry Course Course Narrative: Cervantes patient tachypneic with some accessory muscle use. Lung sounds diminished. Duo nebs ordered. Steroids. Labs pending. Patient was on steroids last week. Likely admission. Rocephin for cellulitis of her shins. - Consultations Consultation #1: Dr Wallace accepts Time: 09:09 Vital Signs Temperature 97.9 F 10/13/17 07:10 Pulse Rate 80 10/13/17 07:10 Respiratory Rate 22 10/13/17 07:10 Blood Pressure 141/61 10/13/17 07:10 O2 Sat by Pulse Oximetry 98 10/13/17 07:10 Temperature 97.9 F 10/13/17 07:10 Pulse Rate 96 10/13/17 08:30 Respiratory Rate 20 10/13/17 08:30 Blood Pressure 138/69 10/13/17 08:30 O2 Sat by Pulse Oximetry 94 10/13/17 08:30 Oxygen Delivery Oxygen Delivery Nasal Cannula Medical Decision Making - [facility] Narrative Medical decision making narrative: Patient better after nebs. Satting 92% on 3 L. Chest x-ray clear. She is given Rocephin for the cellulitis in her legs. Urinalysis pending. Admitted to medicine. - Lab Data Result diagrams: 10/13/17 07:26 10/13/17 07:26 Lab Results 10/13/17 10/13/17 10/13/17 Range/Units 07:26 07:26 07:26 WBC 10.3 (4.3-11.1) K/mcL RBC 3.96 (3.82-4.97) M/mcL Hgb 9.9 L D (11.5-15.4) g/dL Hct 33.4 L (35.3-44.9) % MCV 84.3 (83.0-100.0) fL MCH 25.0 L (28.0-33.3) pg MCHC 29.6 L (31.6-35.5) g/dL RDW 15.9 H (11.5-14.5) % Plt Count 246 (140-400) K/mcL MPV 11.8 (9.4-12.4) fL Immature Gran % 1.2 (0-4) % Seg Neutrophils % 67.4 % Lymphocytes % 24.7 % Monocytes % 4.6 % Eosinophils % 1.6 % Basophils % 0.5 % Neutrophils # 7.0 (1.6-8.9) K/mcL Lymphocytes # 2.5 (0.6-4.6) K/mcL Monocytes # 0.5 (0.0-1.3) K/mcL Eosinophils # 0.2 (0.0-0.6) K/mcL Basophils # 0.1 (0.0-0.2) K/mcL PT (9.4-12.1) Seconds INR Sodium 137 (136-145) mEq/L Potassium 3.1 L (3.5-5.1) mEq/L Chloride 91 L (98-107) mEq/L Carbon Dioxide 36 H (23-29) mEq/L BUN 36 H (8-23) mg/dL Creatinine 1.17 (0.60-1.20) mg/dL Est GFR ( Amer) 57 L (> 60) Est GFR (Non-Af Amer) 47 L (> 60) BUN/Creatinine Ratio 31 H (6-26) Glucose 420 H (70-105) mg/dL Calculated Osmolality 310 H (280-300) Lactic Acid (0.5-2.2) mmol/L Calcium 9.7 (8.6-10.3) mg/dL Troponin I < 0.03 (< 0.04) ng/mL B-Natriuretic Peptide (Less than 100) pg/mL 10/13/17 10/13/17 10/13/17 Range/Units 07:26 07:26 07:42 WBC (4.3-11.1) K/mcL RBC (3.82-4.97) M/mcL Hgb (11.5-15.4) g/dL Hct (35.3-44.9) % MCV (83.0-100.0) fL MCH (28.0-33.3) pg MCHC (31.6-35.5) g/dL RDW (11.5-14.5) % Plt Count (140-400) K/mcL MPV (9.4-12.4) fL Immature Gran % (0-4) % Seg Neutrophils % % Lymphocytes % % Monocytes % % Eosinophils % % Basophils % % Neutrophils # (1.6-8.9) K/mcL Lymphocytes # (0.6-4.6) K/mcL Monocytes # (0.0-1.3) K/mcL Eosinophils # (0.0-0.6) K/mcL Basophils # (0.0-0.2) K/mcL PT 9.9 (9.4-12.1) Seconds INR 0.9 Sodium (136-145) mEq/L Potassium (3.5-5.1) mEq/L Chloride (98-107) mEq/L Carbon Dioxide (23-29) mEq/L BUN (8-23) mg/dL Creatinine (0.60-1.20) mg/dL Est GFR ( Amer) (> 60) Est GFR (Non-Af Amer) (> 60) BUN/Creatinine Ratio (6-26) Glucose (70-105) mg/dL Calculated Osmolality (280-300) Lactic Acid 1.8 (0.5-2.2) mmol/L Calcium (8.6-10.3) mg/dL Troponin I (< 0.04) ng/mL B-Natriuretic Peptide 38 (Less than 100) pg/mL - Radiology Data Radiology results reviewed: Yes I reviewed the patient's radiology results. Chest X-Ray 10/13/17 07:18 IMPRESSION: Stable negative chest. D/ / Sangeetha Alexandra MD / Sangeetha Alexandra MD Interpreting Provider: Sangeetha Alexandra MD - EKG Data EKG #1 EKG attestation: Yes I reviewed and interpreted this EKG. EKG results narrative: Normal sinus at 77. R-wave progression. Inferior Q waves. Normal ST segments. Normal axis. QT 407 with a QTC of 438. Unchanged from prior EKG October 06.
[2017-10-13 07:59] LABS: Basophils # 0.1 K/mcL (0.0-0.2); Basophils % 0.5 %; Eosinophils # 0.2 K/mcL (0.0-0.6); Eosinophils % 1.6 %; Hematocrit 33.4 % (35.3-44.9); Immature Granulocytes % 1.2 % (0-4); Lymphocytes # 2.5 K/mcL (0.6-4.6); Lymphocytes % 24.7 %; Mean Corpuscular HGB Conc 29.6 g/dL (31.6-35.5); Mean Corpuscular Volume 84.3 fL (83.0-100.0); Mean Platelet Volume 11.8 fL (9.4-12.4); Monocytes # 0.5 K/mcL (0.0-1.3); Monocytes % 4.6 %; Platelet Count 246 K/mcL (140-400); Red Blood Count 3.96 M/mcL (3.82-4.97); Red Cell Distribution Width 15.9 % (11.5-14.5); Segmented Neutrophils % 67.4 %
[2017-10-13] MEDS ORDERED: cefTRIAXone 1,000 MG in Water for inj. (sterile) 20 ML 20 ML IVPB ONE (08:00)
[2017-10-13 08:01] LABS: INR 0.9; Prothrombin Time 9.9 Seconds (9.4-12.1)
[2017-10-13 08:02] LABS: Hemoglobin 9.9 g/dL (11.5-15.4)
[2017-10-13 08:17] LABS: Calcium 9.7 mg/dL (8.6-10.3); Potassium 3.1 mEq/L (3.5-5.1)
[2017-10-13 09:19] LABS: Bilirubin,Urine Negative (Negative); Blood,Urine Negative (Negative); Clarity,Urine Clear (Clear); Color,Urine Yellow (Yellow); Glucose,Urine (UA) >=1000 mg/dL (Normal); Ketones,Urine Negative (Negative); Leukocyte Esterase,Urine Negative (Negative); Nitrite,Urine Negative (Negative); Protein,Urine Negative (Neg-Trace); Specific Gravity,Urine 1.017 (1.010-1.025); Urobilinogen,Urine Normal (Normal)
[2017-10-13 09:22] LABS: Hyaline Casts,Urine None Seen per lpf (None-Few); RBC,Urine 0-3 per hpf (0-3); Squamous Epithelial Cell,Urine Many per lpf (None-Few)
[2017-10-13] MEDS ORDERED: traMADol 50 MG TABLET PO ONE (09:33)
[2017-10-13 09:39] LABS: Bacteria,Urine Present per hpf (None-Few)
--- NOTE | 2017-10-13 12:27 | Electrocardiograph Report ---
[facility] Test Date: 2017-10-13 Pat Name: Claire Lynch Department: 102 Room: Gender: F Shipping Assistant: Tiara : 1955 Requested By: Kaylyn See Order Number: [id number] Reading MD: Mikel David MD Measurements Intervals [place] Rate: 77 P: 56 VT: 165 QRS: -3 QRSD: 94 T: 11 QT: 407 QTc: 438 Interpretive Statements SINUS RHYTHM LOW QRS VOLTAGE IN PRECORDIAL LEADS [QRS DEFLECTION < 1.0 mV IN CHEST LEADS] POSSIBLE ANTERIOR MYOCARDIAL INFARCTION [30 ms Q WAVE IN V3/V4, OR R < 0.2 mV IN V4], PROBABLY OLD POSSIBLE INFERIOR MYOCARDIAL INFARCTION [30 ms Q WAVE IN II/aVF], PROBABLY OLD Electronically Signed On 10-13-2017 12:26:19 EST by Mikel David MD
[2017-10-13] MEDS ORDERED: Naloxone 0.4 MG/ML INJ IVP PRN (19:01)
[2017-10-13] MEDS ORDERED: Acetaminophen 325 MG TABLET PO PRN (19:01)
[2017-10-13] MEDS ORDERED: *HR* HYDROcodone/Acet 5/325 mg TABLET PO PRN (19:01)
[2017-10-13] MEDS ORDERED: metOLazone 2.5 MG TABLET PO PRN (19:09)
[2017-10-13] MEDS ORDERED: Mag Hydrox/Al Hydrox/Simeth 30 ML UDC PO PRN (19:09)
[2017-10-13] MEDS ORDERED: Insulin LISPRO 300 UNITS/3 ML VIAL SQ PRN (19:09)
[2017-10-13] MEDS ORDERED: traMADol 50 MG TABLET PO PRN (19:09)
[2017-10-13] MEDS ORDERED: BUPRENORPHINE TP SCH (19:15)
[2017-10-13] MEDS ORDERED: Vancomycin 1,750 MG in 0.9 % Sodium Chloride 250 ML IVPB SCH (20:00)
[2017-10-13] MEDS: ARIPiprazole 10 MG TABLET PO SCH (20:31)
[2017-10-13] MEDS: Budesonide/Formoterol 160/4.5 MDI IH SCH (20:49)
[2017-10-13] MEDS: Ipratropium/Albuterol Neb 3 ML IH SCH ×2 (20:49→23:13)
[2017-10-13] MEDS: clonazePAM 0.5 MG TABLET PO PRN (20:54)
[2017-10-13] MEDS: Bumetanide 1 MG TABLET PO SCH (20:54)
[2017-10-13] MEDS ORDERED: Insulin DETEMIR 100 UNIT/ML X5UNITS SQ SCH (21:00)
[2017-10-13] MEDS ORDERED: Dextrose Gel 15 GM/37.5 ML TUBE PO PRN ×2 (21:14)
[2017-10-13] MEDS ORDERED: *HR* Dextrose 50 % in Water (Syg) 50 ML SYRINGE IVP PRN (21:14)
[2017-10-13] MEDS ORDERED: D5% in Water 1,000 ML IVC PRN (21:14)
[2017-10-13] MEDS ORDERED: Insulin LISPRO 300 UNITS/3 ML VIAL SQ ONE (21:18)
[2017-10-13] MEDS: Insulin LISPRO 300 UNITS/3 ML VIAL SQ SCH (21:23)
--- NOTE | 2017-10-13 22:22 | Event Note ---
Date of Encounter: 10/13/17 Time of Encounter: 22:20 I have personally performed a face to face evaluation on this patient. I have reviewed and agree with the care plan. History and Exam by me shows: Patient presented to the hospital for evaluation of shortness of breath which she says has been worse from her baseline, associated with cough. Denies chest pain. On exam she is in no acute distress speaking in full sentences. Heart is regular S1-S2. Lung exam reveals bilateral expiratory wheezing. Abdomen is obese, soft, nontender. Assessment: COPD exacerbation Plan: Inhaled bronchodilators, IV steroids, IV antibiotics for COPD and lower extremity cellulitis. She is at high risk for morbidity and complications due to treatment with IV vancomycin which requires blood level monitoring for toxicity.
[2017-10-13] MEDS: Gabapentin 400 MG CAPSULE PO SCH (22:42)
--- NOTE | 2017-10-13 22:50 | Internal Med History&Physical ---
<Ashok Gross - Last Filed: 10/13/17 23:35> Date of Encounter: 10/13/17 Time of Encounter: 17:30 Assessment and Plan (1) Acute exacerbation of chronic obstructive airways disease Current visit: Yes Status: Acute Acute exacerbation of COPD. SOB for past week w/worsening sx over the past day. Hx of COPD. Solu-Medrol 60 mg every 8. Supplemental O2 with titration and SPO2 monitoring. DuoNeb's every 4 hours scheduled. Continue patient's inhalers. IVPB ceftriaxone and vancomycin for infection coverage. Monitor patient's respiratory status closely. Patient discussed with Dr. Wallace who is in agreement with plan of care. Patient is high risk for further morbidity due to current symptoms, shortness of breath, and dyspnea; history of COPD and bronchitis, and risk factors. Observation. (2) Acute bronchitis Current visit: Yes Status: Acute Acute bronchitis accompanying current COPD exacerbation. IVPB ceftriaxone and vancomycin with pharmacy dosing ordered for infection coverage. Supplemental O2 titration and SPO2 monitoring. DuoNeb nebs every 4 scheduled. Qualifiers: Bronchitis organism: unspecified organism Qualified Code(s): J20.9 - Acute bronchitis, unspecified (3) Shortness of breath Current visit: Yes Status: Acute Acute SOB r/t acute exacerbation of COPD. Supplemental O2 with titration and SPO2 monitoring. Nebs every 4 scheduled. Continue patient's inhalers. (4) Hypokalemia Current visit: Yes Status: Acute Acute hypokalemia w/potassium of 3.1. PO potassium 40 mEq ordered in addition to pts. 20 mEq BID daily dosing. Potassium level to be drawn at 23:55. Monitor f /u labs. (5) HTN (hypertension) Current visit: Yes Status: Chronic Hx of chronic HTN. Monitor pt. and VS. Continue HTN meds. Qualifiers: Hypertension type: essential hypertension Qualified Code(s): I10 - Essential (primary) hypertension (6) HLD (hyperlipidemia) Current visit: Yes Status: Chronic Hx of chronic HLD. Lipid panel in a.m. labs. Continue statin. Qualifiers: Hyperlipidemia type: pure hypercholesterolemia Qualified Code(s): E78.00 - Pure hypercholesterolemia, unspecified; E78.0 - Pure hypercholesterolemia (7) Cellulitis of both lower extremities Current visit: Yes Status: Chronic Hx of chronic venous stasis of bilateral LEs accompanied by cellulitis. IVPB ceftriaxone and vancomycin for infection coverage. (8) Anxiety and depression Current visit: Yes Status: Chronic Hx of chronic anxiety, bipolar depression, and panic disorder. Continue patient' s meds. (9) GERD (gastroesophageal reflux disease) Current visit: Yes Status: Chronic Hx of chronic GERD. IVP Zofran 4 mg every 8 for nausea and vomiting. Continue patient's Prilosec. Qualifiers: Esophagitis presence: without esophagitis Qualified Code(s): K21.9 - Gastro -esophageal reflux disease without esophagitis (10) Hypothyroidism Current visit: Yes Status: Chronic Hx of chronic hypothyroidism. Continue patient's Synthroid. Qualifiers: Hypothyroidism type: acquired Qualified Code(s): E03.9 - Hypothyroidism, unspecified (11) Type 2 diabetes mellitus Current visit: Yes Status: Chronic Hx of chronic diabetes controlled w/insulin. Will continue pts. AM insulin @ 45 units and PM @ 40 units. Will continue pts. TID insulin @ 5 units and add medium dose correction insulin sliding scale d/t hyperglycemia hx. Hypoglycemia protocol. BG checks ACHS. A1c in a.m. labs. Diabetes education ordered. 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 Monitor patient for signs of bleeding. Internal Medicine - H&P: HPI Chief complaint: SOB/Dyspnea Admitted From: Emergency Dept Plans for Post Hospital Care: Home History of present illness: Ms. Lynch is a 62 year old female with medical hx of arthritis, CHF, COPD, CAD , diabetes controlled with insulin, GERD, HLD, HTN, osteoporosis, renal disease , thyroid disease, TIA, and venous stasis presents from the ED with chief complaint of shortness of breath for the past week since she was discharged from the hospital previously which worsened over the past day. She reports a dry cough, mild sore throat, and erythema in her lower extremities that she states has worsened due to her dog scratching her. She denies previous illness , fever, chills, nausea, vomiting, headache, changes in vision, chest pain, palpitations, abdominal pain, diarrhea, constipation, dizziness, lightheadedness , pre-syncope, or syncope. Past Med Surg Social Fam HX - Past Medical History Source: patient, old records reviewed Medical history: arthritis, CHF, COPD, coronary artery disease, diabetes, GERD, hyperlipidemia, hypertension, osteoporosis, renal disease, thyroid disease, TIA , venous stasis, other Psychiatric history: anxiety, bipolar, depression, panic disorder - Past Surgical History Surgical History: angioplasty/stent, , cholecystectomy, hysterectomy - Social History Smoking Status: Former smoker Smokeless Tobacco Status: No Alcohol use: none Drug use: none Current living situation: Home Activity Level: Independent ambulation Recent Out of Country Travel Within the Last 8 Weeks: No Exposure or Possible Exposure to Illness During Travel: No - Family History Brother Adopted: No Family Member Ethnicity: Non- Living Status: Hx Family Cardiac Disorders: Yes Father Adopted: No Family Member Ethnicity: Non- Living Status: Hx Family Cardiac Disorders: Yes (HD, HLD, HTN, SC, Triple Bypass) Hx Family Neurologic Disorders: Yes (Dementia) Mother Adopted: No Family Member Ethnicity: Non- Living Status: Hx Family Cardiac Disorders: Yes (SC, HTN, HLD, Strokes x5) Hx Family Respiratory Disorders: No Hx Family Cancer: No Hx Family GI Disorders: No Hx Family Endocrine Disorder: Yes (DM) Hx Family Neuromuscular Disorders: No Hx Family Neurologic Disorders: Yes (Strokes) Hx Family HEENT Disorders: No Hx Family Autoimmune Disorders: No Internal Medicine - H&P: Meds Budesonide/Formoterol 160/4.5 [Symbicort] 2 puff IH BIDR 04/21/15 [History] Levothyroxine [Synthroid] 100 mcg PO QAM 04/21/15 [History] Tiotropium [Spiriva] 18 mcg IH QAM 04/21/15 [History] metFORMIN [Glucophage] 1,000 mg PO BID 04/21/15 [History] Atorvastatin Calcium [Lipitor] 40 mg PO DAILY 02/04/16 [History] Montelukast [Singulair] 10 mg PO HS 02/04/16 [History] Oxygen 2 l NS AD PRN 03/17/16 [History] Insulin Glargine [Lantus] 80 unit SQ QPM 03/25/16 [History] Insulin Glargine [Lantus] 90 unit SQ QAM 03/25/16 [History] Albuterol Sulfate [Albuterol Inhaler] 2 puff IH Q4HR PRN 05/01/16 [History] Citalopram Hydrobromide [Citalopram HBr] 40 mg PO DAILY 05/01/16 [History] Raloxifene [Evista] 60 mg PO DAILY 05/01/16 [History] Aripiprazole [Abilify] 10 mg PO HS tablet 05/03/16 [Rx] Fenofibrate Nanocrystallized [Tricor] 145 mg PO DAILY 06/15/16 [History] Clopidogrel [Plavix] 75 mg PO QAM tablet 06/18/16 [Rx] Aspirin 81 mg PO DAILY #60 tab.chew 12/06/16 [Rx] Mag Hydrox/Al Hydrox/Simeth [Maalox] 30 ml PO Q6H PRN 30 Days oral.susp [Rx] Cholecalciferol (D-3) [Vitamin D] 1,000 unit PO DAILY 04/27/17 [History] Metoclopramide [Reglan] 10 mg PO TID 04/27/17 [History] Metoprolol XL (24 HR) Succ [Toprol Xl] 50 mg PO DAILY 04/27/17 [History] Insulin LISPRO [Humalog Kwikpen U-100] 2 - 10 unit SQ TID PRN 05/09/17 [History] clonazePAM [Klonopin] 0.5 mg PO DAILY PRN 05/28/17 [History] Magnesium Oxide [Mag-Ox] 400 mg PO DAILY #0 tab 05/29/17 [Rx] Bumetanide 2 mg PO BID 06/11/17 [History] Gabapentin [Neurontin] 800 mg PO 5XD 06/11/17 [History] Omeprazole [PriLOSEC] 20 mg PO BIDAC 06/11/17 [History] Potassium Chloride 20 meq PO BID 06/11/17 [History] Tizanidine HCl [Zanaflex] 4 mg PO TID PRN 06/11/17 [History] amLODIPine [Norvasc] 2.5 mg PO DAILY 06/11/17 [History] metOLazone [Zaroxolyn] 2.5 mg PO DAILY PRN 06/11/17 [History] Isosorbide MONOnitrate (24 HR) [Imdur] 120 mg PO DAILY 06/26/17 [History] [place]-3 Fatty Acids/Fish Oil [Fish Oil 1,000 mg Softgel] 1 cap PO DAILY [History] Nortriptyline [Pamelor] 25 mg PO HS 06/27/17 [History] DiphenhydraMINE [Benadryl] 25 mg PO HS 08/29/17 [History] Roflumilast [Daliresp] 500 mcg PO DAILY #30 tablet 09/09/17 [Rx] Buspirone HCl [Buspar] 20 mg PO BID 09/12/17 [History] Buprenorphine [Butrans] 1 patch TD QWEEK 09/19/17 [History] Tramadol HCl [Ultram] 50 mg PO TID PRN 09/19/17 [History] GuaiFENesin ER [Mucinex] 600 mg PO Q12H #6 tbbp.12hr 09/22/17 [Rx] 3 Allergy/AdvReac Type Severity Reaction Status Date / Time No Known Allergies Allergy Verified 10/13/17 08:09 All Systems PM: A 10-system review of systems was performed and is negative for pertinent findings except as documented above in the HPI. - Constitutional Constitutional: no chills, no fever(s), no night sweats - EENT Eyes: no change in vision, no discharge, no pain, no photophobia Ears: no ear discharge, no ear pain, no tinnitus Nose, mouth and throat: no dysphagia, no nasal discharge, no neck pain, no sore throat - Breasts Breasts: as per HPI - Cardiovascular Cardiovascular ROS IM: as per HPI, dyspnea, dyspnea on exertion, edema ( Bilateral LEs), no chest pain, no diaphoresis, no lightheadedness, no palpitations, no syncope - Respiratory Respiratory: as per HPI, cough, dyspnea, dyspnea on exertion - Gastrointestinal Gastrointestinal: no abdominal pain, no diarrhea, no hematemesis, no hematochezia, no melena, no nausea, no vomiting - Genitourinary Genitourinary: no change in urinary stream, no dysuria, no flank pain, no hematuria Menstruation: as per HPI, post hysterectomy - Musculoskeletal Musculoskeletal ROS IM: no numbness, no tingling - Integumentary Integumentary IM: as per HPI, erythema (Bilateral LEs) - Neurological Neurological ROS: no confusion, no convulsions, no focal weakness, no numbness, no tingling, no tremor(s) - Psychiatric Psychiatric: as per HPI, anxiety, depression - Endocrine Endocrine IM: as per HPI - Hematologic/Lymphatic Hematologic/Lymphatic: no easy bruising - Allergic/Immunologic Allergic/Immunologic: as per HPI - Constitutional Vitals: Temp Pulse Resp BP Pulse Ox 98.1 F 83 20 117/68 95 10/13/17 20:36 10/13/17 20:36 10/13/17 20:36 10/13/17 20:36 10/13/17 20:36 General appearance: Present: cooperative, A&O X 3, morbidly obese, pleasant, no acute distress, answers questions appropriately - Head Head exam: Present: atraumatic, normocephalic - Eye Eye exam: Present: PERRL, conjuntiva pink, sclera anicteric Pupils: Present: PERRL - ENT ENT exam: Present: normal exam - Neck Neck exam general surgery: Present: supple, trachea midline. Absent: lymphadenopathy - Respiratory Respiratory exam: Present: accessory muscle use, decreased breath sounds ( Bilateral lower lobes), wheezes (Bilateral upper lobes) - Cardiovascular Cardiovascular exam: Present: RRR, +S1, +S2. Absent: diastolic murmur, gallop, rubs, systolic murmur - GI/Abdominal GI/Abdominal exam: Present: normal bowel sounds, soft, no peritoneal signs. Absent: distended, tenderness - Rectal Rectal exam: Present: deferred - Additional comments: exam deferred. - Extremities Exam Extremities exam: Present: pedal edema, warm, radial pulses palpable and symmetrical. Absent: calf tenderness, cyanotic - Back Exam Back exam: Present: normal inspection - Neurological Exam Neurological exam: Present: CN II-XII intact, oriented X3, no focal deficits. Absent: pronater drift, facial droop, speech deficit - Psychiatric Psychiatric exam: Present: normal affect, normal mood - Skin Skin exam: Present: dry, erythema (Bilateral LEs), intact Internal Med - H&P Results - Labs CBC & Chem 7: 10/13/17 07:26 10/13/17 07:26 - EKG Data EKG shows normal: sinus rhythm - EKG Data Prior EKG available for review: yes Interpretation IM: suggestive of ischemia EKG comments: 10/13/17 22:54 EKG dated 10/06/17 shows sinus rhythm with old inferior myocardial infarction. EKG dated 10/13/17 shows sinus rhythm with low QRS voltage in precordial leads, possible anterior myocardial infarction (probably old), possible inferior myocardial infarction (probably old). - Diagnostic Studies Chest x-ray Additional comments: Impressions Chest X-Ray 10/13/17 07:18 IMPRESSION: Stable negative chest. D/ / Sangeetha Alexandra MD / Sangeetha Alexandra MD Interpreting Provider: Sangeetha Alexandra MD <Sameer Wallace - Last Filed: 10/14/17 10:06> Date of Encounter: 10/13/17 Internal Medicine - H&P: HPI History of present illness: Ms. Lynch is a 62 year old female All Systems PM: A 10-system review of systems was performed and is negative for pertinent findings except as documented above in the HPI. - Constitutional Vitals: Temp Pulse Resp BP Pulse Ox 98.8 F 81 16 118/74 97 10/14/17 07:32 10/14/17 07:32 10/14/17 07:32 10/14/17 07:32 10/14/17 07:32 Internal Med - H&P Results - Labs CBC & Chem 7: 10/14/17 00:15 10/14/17 00:15 Labs: Short CBC 10/14/17 Range/Units 00:15 WBC 12.7 H (4.3-11.1) K/mcL Hgb 9.7 L (11.5-15.4) g/dL Hct 32.2 L (35.3-44.9) % Plt Count 237 (140-400) K/mcL Neutrophils # 9.3 H (1.6-8.9) K/mcL BMP 10/14/17 10/14/17 00:15 00:15 Sodium 137 Potassium 3.2 L 3.2 L Chloride 93 L Carbon Dioxide 33 H BUN 28 H Creatinine 0.91 Glucose 398 H Calcium 9.3 Liver Function 10/14/17 Range/Units 00:15 Total Bilirubin 0.3 (0.3-1.0) mg/dL AST 12 L (13-39) Units/L ALT 18 (7-52) Units/L Alkaline Phosphatase 57 (34-104) Units/L Albumin 3.3 L (3.5-5.7) g/dL - Attending Attestation Date of Encounter: 10/13/17 Time of Encounter: 22:20 I have personally performed a face to face evaluation on this patient. I have reviewed and agree with the care plan. History and Exam by me shows: Patient presented to the hospital for evaluation of shortness of breath which she says has been worse from her baseline, associated with cough. Denies chest pain. On exam she is in no acute distress speaking in full sentences. Heart is regular S1-S2. Lung exam reveals bilateral expiratory wheezing. Abdomen is obese, soft, nontender. Assessment: COPD exacerbation Plan: Inhaled bronchodilators, IV steroids, IV antibiotics for COPD and lower extremity cellulitis. She is at high risk for morbidity and complications due to treatment with IV vancomycin which requires blood level monitoring for toxicity. Sameer Wallace MD
[2017-10-13] MEDS ORDERED: Ondansetron 4 MG/2 ML VIAL IVP PRN (23:07)
[2017-10-14] MEDS: methylPREDNISolone 125 MG/2 ML VIAL IVP SCH ×4 (00:43→23:34)
[2017-10-14] MEDS: Gabapentin 400 MG CAPSULE PO SCH ×6 (00:50→23:33)
[2017-10-14 01:22] LABS: Basophils # 0.1 K/mcL (0.0-0.2); Basophils % 0.5 %; Eosinophils % 0.2 %; Hematocrit 32.2 % (35.3-44.9); Hemoglobin 9.7 g/dL (11.5-15.4); Immature Granulocytes % 1.2 % (0-4); Lymphocytes # 2.6 K/mcL (0.6-4.6); Lymphocytes % 20.4 %; Mean Corpuscular HGB Conc 30.1 g/dL (31.6-35.5); Mean Corpuscular Hemoglobin 25.3 pg (28.0-33.3); Mean Corpuscular Volume 84.1 fL (83.0-100.0); Mean Platelet Volume 11.8 fL (9.4-12.4); Monocytes # 0.5 K/mcL (0.0-1.3); Monocytes % 4.2 %; Neutrophils # 9.3 K/mcL (1.6-8.9); Platelet Count 237 K/mcL (140-400); Red Blood Count 3.83 M/mcL (3.82-4.97); Red Cell Distribution Width 15.9 % (11.5-14.5); Segmented Neutrophils % 73.5 %
[2017-10-14 01:34] LABS: Alanine Aminotransferase 18 Units/L (7-52); Albumin 3.3 g/dL (3.5-5.7); Albumin/Globulin Ratio 1.3 (1.1-2.2); Alkaline Phosphatase 57 Units/L (34-104); Aspartate Amino Transferase 12 Units/L (13-39); BUN/Creatinine Ratio 31 (6-26); Bilirubin,Total 0.3 mg/dL (0.3-1.0); Blood Urea Nitrogen 28 mg/dL (8-23); Calcium 9.3 mg/dL (8.6-10.3); Carbon Dioxide 33 mEq/L (23-29); Chloride 93 mEq/L (98-107); Chol/HDL Ratio 3.8 (0-4.9); Cholesterol 120 mg/dL (< 200); Globulin 2.6 g/dL (2.4-3.5); Glucose 398 mg/dL (70-105); HDL Cholesterol 32 mg/dL (40-59); Magnesium 1.5 mg/dL (1.6-2.6); Osmolality,Calculated 306 (280-300); Potassium 3.2 mEq/L (3.5-5.1); Sodium 137 mEq/L (136-145); Total Protein 5.9 g/dL (6.4-8.9); Triglycerides 451 mg/dL (< 150); eGFR For African Americans > 60 (> 60); eGFR For Non-African Americans > 60 (> 60)
[2017-10-14 01:35] LABS: Hemoglobin A1C 9.4 %
[2017-10-14] MEDS: Ipratropium/Albuterol Neb 3 ML IH SCH ×6 (04:09→23:05)
[2017-10-14] MEDS: *HR* Heparin 5,000 UNIT/ML VIAL SQ SCH ×3 (04:57→21:57)
[2017-10-14] MEDS: Budesonide/Formoterol 160/4.5 MDI IH SCH ×2 (07:30→19:42)
[2017-10-14] MEDS: Aspirin 81 MG TAB.CHEW PO SCH (07:49)
[2017-10-14] MEDS: Magnesium Oxide 400 MG TABLET PO SCH (07:49)
[2017-10-14] MEDS: Fenofibrate 54 MG TABLET PO SCH (07:49)
[2017-10-14] MEDS: Isosorbide MONOnitrate (24 HR) 60 MG TAB.ER.24H PO SCH (07:50)
[2017-10-14] MEDS: Metoprolol XL (24 HR) Succ 50 MG TAB.ER.24H PO SCH (07:50)
[2017-10-14] MEDS: Cholecalciferol (D-3) 1,000 UNIT TABLET PO SCH (07:50)
[2017-10-14] MEDS: Bumetanide 1 MG TABLET PO SCH ×2 (07:50→16:52)
[2017-10-14] MEDS: amLODIPine 5 MG TABLET PO SCH (07:50)
[2017-10-14] MEDS ORDERED: *HR* HYDROcodone/Acet 5/325 mg TABLET PO PRN (08:02)
[2017-10-14] MEDS: *HR* OxyCODONE Immed Rel 5 MG TABLET PO PRN ×2 (08:06→15:25)
[2017-10-14] MEDS: clonazePAM 0.5 MG TABLET PO PRN (08:06)
[2017-10-14] MEDS: Insulin LISPRO 300 UNITS/3 ML VIAL SQ SCH ×6 (08:07→21:57)
[2017-10-14] MEDS ORDERED: FISH OIL PO SCH (09:00)
[2017-10-14] MEDS ORDERED: Tiotropium 18 MCG inhalation IH SCH (09:00)
[2017-10-14] MEDS ORDERED: Insulin DETEMIR 100 UNIT/ML X5UNITS SQ SCH ×2 (09:00→18:00)
[2017-10-14] MEDS ORDERED: FATTY ACIDS PO SCH (09:00)
[2017-10-14] MEDS ORDERED: cefTRIAXone 2,000 MG in Water for inj. (sterile) 20 ML 20 ML IVPB SCH (09:00)
[2017-10-14] MEDS ORDERED: (Roflumilast [Daliresp] 500 MCG) PO SCH (09:00)
[2017-10-14] MEDS ORDERED: OMEGA PO SCH (09:00)
[2017-10-14] MEDS ORDERED: Insulin DETEMIR 100 UNIT/ML X5UNITS SQ ONE (11:03)
[2017-10-14] MEDS ORDERED: Magnesium Oxide 400 MG TABLET PO ONE (11:05)
[2017-10-14] MEDS ORDERED: Potassium Chloride 20 MEQ, Lidocaine 1% 2 ML in D5% in Water 250 ML IVPB ONE (11:05)
--- NOTE | 2017-10-14 11:16 | Internal Med Progress Note ---
Date of Encounter: 10/14/17 Time of Encounter: 11:14 - Assessment and plan (1) COPD exacerbation Current Visit: No Status: Acute Assessment and plan: The patient continues to be wheezing. We will continue the patient on IV steroids today with no weaning. Continue nebulizers treatments scheduled. Wean down oxygen as tolerated. We will add Levaquin and stop other IV antibiotics. (2) Acute bronchitis Current Visit: Yes Status: Acute Assessment and plan: Plan as above. Continue Levaquin. Qualifiers: Bronchitis organism: unspecified organism Qualified Code(s): J20.9 - Acute bronchitis, unspecified (3) Cellulitis of both lower extremities Current Visit: Yes Status: Chronic Assessment and plan: We will have patient on Levaquin which should cover for cellulitis. Stop IV ceftriaxone and vancomycin. (4) Chronic diastolic CHF (congestive heart failure) Current Visit: No Status: Chronic Assessment and plan: The patient seems euvolemic. Continue Bumex and beta randy. (5) CAD (coronary artery disease) Current Visit: No Status: Chronic Assessment and plan: Continue aspirin Plavix statin beta randy and Imdur. Qualifiers: Coronary Disease-Associated Artery/Lesion type: [place] artery [place] vs. transplanted heart: [place] heart Associated angina: with stable angina Qualified Code(s): I25.118 - Atherosclerotic heart disease of [place] coronary artery with other forms of angina pectoris (6) HTN (hypertension) Current Visit: No Status: Chronic Assessment and plan: Blood pressure stable. Continue with home medications Qualifiers: Hypertension type: essential hypertension Qualified Code(s): I10 - Essential (primary) hypertension (7) Type 2 diabetes mellitus Current Visit: Yes Status: Chronic Assessment and plan: Blood glucose is uncontrolled. The patient is on steroids which exacerbates hyperglycemia. Patient has seasonal and significant amount of insulin Levemir at home. I will put on 80 Levemir twice a day which is close to her home dose. I will add Bibb meal coverage with 5 units 3 times a day. I will give her 10 units extra right now. Her glucose was 491 marshall in the room. Continue with Accu-Cheks. 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 She continues to complain of significant wheezing. She is admitted with a COPD exacerbation. Was recently discharged on 10/03 with a COPD exacerbation. She is on about 2-3 L chronically at home for 2 nasal cannula. Her stay so far has been complicated by significantly elevated glucose. She is on steroids. She has also been started on vancomycin and ceftriaxone for possible cellulitis of the lower extremities is the fourth red however she does have chronic venous stasis. She had a dog bite/scratch about a week ago on her right boo and she tells me her leg has been swollen more since then. Been afebrile here. - Constitutional Vitals: Temp Pulse Resp BP Pulse Ox 97.8 F 102 16 139/67 92 10/14/17 11:05 10/14/17 11:05 10/14/17 11:05 10/14/17 11:05 10/14/17 11:05 General appearance: Present: cooperative, A&O X 3, morbidly obese, pleasant, no acute distress, answers questions appropriately Exam: GEN: NAD CVS: RRR. S1, S2, No m/r/g RESP: Diminished with expiratory wheezes heard at the posterior lung padgett. ABD: Soft, NT, ND, +BS EXT: The patient does have findings of chronic venous stasis at the lower extremities with erythema noted and swelling more prominent on the right lower extremity than it is on the left. 2+ DP. No rashes NEURO: Nonfocal Internal Medicine: Result - Labs CBC & Chem 7: 10/14/17 00:15 10/14/17 00:15 Labs: Short CBC 10/14/17 Range/Units 00:15 WBC 12.7 H (4.3-11.1) K/mcL Hgb 9.7 L (11.5-15.4) g/dL Hct 32.2 L (35.3-44.9) % Plt Count 237 (140-400) K/mcL Neutrophils # 9.3 H (1.6-8.9) K/mcL BMP 10/14/17 10/14/17 00:15 00:15 Sodium 137 Potassium 3.2 L 3.2 L Chloride 93 L Carbon Dioxide 33 H BUN 28 H Creatinine 0.91 Glucose 398 H Calcium 9.3 Liver Function 10/14/17 Range/Units 00:15 Total Bilirubin 0.3 (0.3-1.0) mg/dL AST 12 L (13-39) Units/L ALT 18 (7-52) Units/L Alkaline Phosphatase 57 (34-104) Units/L Albumin 3.3 L (3.5-5.7) g/dL - ABG Interpretation ABG results: PT/INR, D-dimer PT 9.9 Seconds (9.4-12.1) 10/13/17 07:26 Consult Discharge Plan - Plan Referrals: NONE,PCP [Primary Care Provider] -
[2017-10-14] MEDS: Levofloxacin 500 MG/100 ML 500 MG/100 ML BAG IVPB SCH (11:52)
[2017-10-14] MEDS: traMADol 50 MG TABLET PO PRN ×2 (11:57→20:37)
[2017-10-14] MEDS: ARIPiprazole 10 MG TABLET PO SCH (20:37)
[2017-10-15] MEDS: Ipratropium/Albuterol Neb 3 ML IH SCH ×5 (03:37→19:11)
[2017-10-15 03:54] LABS: Basophils % 0.2 %; Hematocrit 32.3 % (35.3-44.9); Hemoglobin 9.7 g/dL (11.5-15.4); Immature Granulocytes % 0.8 % (0-4); Lymphocytes # 1.2 K/mcL (0.6-4.6); Lymphocytes % 11.8 %; Mean Corpuscular Hemoglobin 25.4 pg (28.0-33.3); Mean Corpuscular Volume 84.6 fL (83.0-100.0); Mean Platelet Volume 11.1 fL (9.4-12.4); Monocytes # 0.4 K/mcL (0.0-1.3); Neutrophils # 8.2 K/mcL (1.6-8.9); Platelet Count 234 K/mcL (140-400); Red Blood Count 3.82 M/mcL (3.82-4.97); Red Cell Distribution Width 16.1 % (11.5-14.5); Segmented Neutrophils % 83.2 %
[2017-10-15 04:39] LABS: Alanine Aminotransferase 17 Units/L (7-52); Albumin 3.7 g/dL (3.5-5.7); Albumin/Globulin Ratio 1.3 (1.1-2.2); Alkaline Phosphatase 59 Units/L (34-104); Aspartate Amino Transferase 11 Units/L (13-39); BUN/Creatinine Ratio 30 (6-26); Bilirubin,Total 0.3 mg/dL (0.3-1.0); Blood Urea Nitrogen 31 mg/dL (8-23); Calcium 9.4 mg/dL (8.6-10.3); Carbon Dioxide 29 mEq/L (23-29); Chloride 97 mEq/L (98-107); Globulin 2.8 g/dL (2.4-3.5); Glucose 439 mg/dL (70-105); Osmolality,Calculated 305 (280-300); Potassium 4.4 mEq/L (3.5-5.1); Sodium 135 mEq/L (136-145); Total Protein 6.5 g/dL (6.4-8.9); eGFR For African Americans > 60 (> 60); eGFR For Non-African Americans 55 (> 60)
[2017-10-15] MEDS: traMADol 50 MG TABLET PO PRN ×3 (05:03→23:58)
[2017-10-15] MEDS: *HR* Heparin 5,000 UNIT/ML VIAL SQ SCH ×3 (05:03→23:59)
[2017-10-15] MEDS: *HR* OxyCODONE Immed Rel 5 MG TABLET PO PRN ×2 (07:37→18:47)
[2017-10-15] MEDS: amLODIPine 5 MG TABLET PO SCH (07:37)
[2017-10-15] MEDS: Metoprolol XL (24 HR) Succ 50 MG TAB.ER.24H PO SCH (07:37)
[2017-10-15] MEDS: Magnesium Oxide 400 MG TABLET PO SCH (07:38)
[2017-10-15] MEDS: Isosorbide MONOnitrate (24 HR) 60 MG TAB.ER.24H PO SCH (07:38)
[2017-10-15] MEDS: Aspirin 81 MG TAB.CHEW PO SCH (07:38)
[2017-10-15] MEDS: Bumetanide 1 MG TABLET PO SCH ×2 (07:38→16:22)
[2017-10-15] MEDS: methylPREDNISolone 125 MG/2 ML VIAL IVP SCH ×3 (07:39→20:24)
[2017-10-15] MEDS: clonazePAM 0.5 MG TABLET PO PRN (07:39)
[2017-10-15] MEDS: Fenofibrate 54 MG TABLET PO SCH (07:39)
[2017-10-15] MEDS: Cholecalciferol (D-3) 1,000 UNIT TABLET PO SCH (07:39)
[2017-10-15] MEDS: Insulin LISPRO 300 UNITS/3 ML VIAL SQ SCH ×3 (07:46→12:10)
[2017-10-15] MEDS: Gabapentin 400 MG CAPSULE PO SCH ×4 (07:49→23:39)
[2017-10-15] MEDS: Budesonide/Formoterol 160/4.5 MDI IH SCH ×2 (07:50→19:33)
[2017-10-15] MEDS ORDERED: Insulin DETEMIR 100 UNIT/ML X5UNITS SQ SCH ×2 (09:00→21:00)
[2017-10-15] MEDS ORDERED: Insulin LISPRO 300 UNITS/3 ML VIAL SQ SCH (09:30)
[2017-10-15] MEDS: Insulin DETEMIR 100 UNIT/ML X5UNITS SQ ONE ×2 (10:40→12:10)
[2017-10-15] MEDS: Levofloxacin 500 MG/100 ML 500 MG/100 ML BAG IVPB SCH (11:50)
--- NOTE | 2017-10-15 12:06 | Internal Med Progress Note ---
Date of Encounter: 10/15/17 Time of Encounter: 12:03 - Assessment and plan (1) COPD exacerbation Current Visit: No Status: Acute Assessment and plan: The patient has no wheezes on exam today. We will continue the patient on IV steroids but wean down to Q 12 hours. Continue nebulizers treatments scheduled. Wean down oxygen as tolerated. Continue Levaquin. (2) Acute bronchitis Current Visit: Yes Status: Acute Assessment and plan: Plan as above. Continue Levaquin. Qualifiers: Bronchitis organism: unspecified organism Qualified Code(s): J20.9 - Acute bronchitis, unspecified (3) Cellulitis of both lower extremities Current Visit: Yes Status: Chronic Assessment and plan: continue Levaquin. (4) Chronic diastolic CHF (congestive heart failure) Current Visit: No Status: Chronic Assessment and plan: The patient seems euvolemic. Continue Bumex and beta randy. (5) CAD (coronary artery disease) Current Visit: No Status: Chronic Assessment and plan: Continue aspirin Plavix statin beta randy and Imdur. Qualifiers: Coronary Disease-Associated Artery/Lesion type: [place] artery [place] vs. transplanted heart: [place] heart Associated angina: with stable angina Qualified Code(s): I25.118 - Atherosclerotic heart disease of [place] coronary artery with other forms of angina pectoris (6) HTN (hypertension) Current Visit: No Status: Chronic Assessment and plan: Blood pressure stable. Continue with home medications Qualifiers: Hypertension type: essential hypertension Qualified Code(s): I10 - Essential (primary) hypertension (7) Type 2 diabetes mellitus Current Visit: Yes Status: Chronic Assessment and plan: Blood glucose is uncontrolled still. The patient is on steroids which exacerbates hyperglycemia. Patient is on significant amount of insulin Levemir at home. Will increase Levemir to 100 units twice a day. Increase pre-meal coverage to 15 units 3 times a day . Continue with Accu-Cheks. I am hoping with decreased steroids that the glucose would improve. If needed we can put the patient on insulin drip. 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 mellitus complication status: with neurologic complications Diabetes mellitus complication detail: with polyneuropathy Diabetes mellitus chcf insulin use: with chcf use Qualified Code(s): E11.42 - Type 2 diabetes mellitus with diabetic polyneuropathy; Z79.4 - photo graphics librarian (current) use of insulin; Z79.4 - alf (current) use of insulin; Z79.4 - alf ( current) use of insulin; Z79.4 - alf (current) use of insulin (8) DVT prophylaxis Current Visit: Yes Status: Acute Assessment and plan: Heparin subcutaneous - Subjective Interval history: She was seen and examined. Says she feels better. Not at baseline. Glucose is uncontrolled in the 400s. She is admitted with a COPD exacerbation. Was recently discharged on 10/03 with a COPD exacerbation. She is on about 2-3 L chronically at home for 2 nasal cannula. Her stay so far has been complicated by significantly elevated glucose. She is on steroids. She has also been started on vancomycin and ceftriaxone for possible cellulitis of the lower extremities is the fourth red however she does have chronic venous stasis. She had a dog bite/scratch about a week ago on her right boo and she tells me her leg has been swollen more since then. Been afebrile here. - Constitutional Vitals: Temp Pulse Resp BP Pulse Ox 97.5 F L 76 15 148/79 95 10/15/17 11:00 10/15/17 11:00 10/15/17 11:00 10/15/17 11:10/15/17 11:00 General appearance: Present: cooperative, A&O X 3, morbidly obese, pleasant, no acute distress, answers questions appropriately Exam: GEN: NAD CVS: RRR. S1, S2, No m/r/g RESP: Diminished with expiratory wheezes heard at the posterior lung padgett. ABD: Soft, NT, ND, +BS EXT: The patient does have findings of chronic venous stasis at the lower extremities with erythema noted and swelling more prominent on the right lower extremity than it is on the left. 2+ DP. No rashes NEURO: Nonfocal Internal Medicine: Result - Labs CBC & Chem 7: 10/15/17 03:28 10/15/17 03:28 Labs: Short CBC 10/15/17 Range/Units 03:28 WBC 9.8 (4.3-11.1) K/mcL Hgb 9.7 L (11.5-15.4) g/dL Hct 32.3 L (35.3-44.9) % Plt Count 234 (140-400) K/mcL Neutrophils # 8.2 (1.6-8.9) K/mcL BMP 10/15/17 03:28 Sodium 135 L Potassium 4.4 Chloride 97 L Carbon Dioxide 29 BUN 31 H Creatinine 1.03 Glucose 439 H Calcium 9.4 Liver Function 10/15/17 Range/Units 03:28 Total Bilirubin 0.3 (0.3-1.0) mg/dL AST 11 L (13-39) Units/L ALT 17 (7-52) Units/L Alkaline Phosphatase 59 (34-104) Units/L Albumin 3.7 (3.5-5.7) g/dL - ABG Interpretation ABG results: PT/INR, D-dimer PT 9.9 Seconds (9.4-12.1) 10/13/17 07:26 Consult Discharge Plan - Plan Referrals: NONE,PCP [Primary Care Provider] -
[2017-10-15] MEDS ORDERED: *HR* Dextrose 50 % in Water (Syg) 50 ML SYRINGE IVP PRN (14:13)
[2017-10-15] MEDS ORDERED: Insulin Human Regular 100 UNIT in 0.9 % Sodium Chloride 100 ML IVC SCH (14:15)
[2017-10-15] MEDS: tiZANidine 4 MG TABLET PO PRN (17:53)
[2017-10-15] MEDS: ARIPiprazole 10 MG TABLET PO SCH (20:22)
[2017-10-16] MEDS: Ipratropium/Albuterol Neb 3 ML IH SCH ×6 (00:34→20:48)
[2017-10-16] MEDS: Gabapentin 400 MG CAPSULE PO SCH ×6 (00:46→23:20)
[2017-10-16 01:36] LABS: Basophils % 0.4 %; Hematocrit 33.1 % (35.3-44.9); Hemoglobin 9.9 g/dL (11.5-15.4); Immature Granulocytes % 1.6 % (0-4); Lymphocytes # 1.7 K/mcL (0.6-4.6); Lymphocytes % 18.4 %; Mean Corpuscular HGB Conc 29.9 g/dL (31.6-35.5); Mean Corpuscular Hemoglobin 25.4 pg (28.0-33.3); Mean Corpuscular Volume 84.9 fL (83.0-100.0); Mean Platelet Volume 11.2 fL (9.4-12.4); Monocytes # 0.4 K/mcL (0.0-1.3); Monocytes % 4.5 %; Neutrophils # 6.9 K/mcL (1.6-8.9); Platelet Count 225 K/mcL (140-400); Red Cell Distribution Width 16.1 % (11.5-14.5); Segmented Neutrophils % 75.1 %
[2017-10-16] MEDS: Insulin Human Regular 100 UNIT in 0.9 % Sodium Chloride 100 ML IVC SCH ×3 (01:44→20:32)
[2017-10-16 02:15] LABS: Alanine Aminotransferase 16 Units/L (7-52); Albumin 3.7 g/dL (3.5-5.7); Albumin/Globulin Ratio 1.4 (1.1-2.2); Alkaline Phosphatase 55 Units/L (34-104); Aspartate Amino Transferase 12 Units/L (13-39); BUN/Creatinine Ratio 33 (6-26); Bilirubin,Total 0.3 mg/dL (0.3-1.0); Blood Urea Nitrogen 33 mg/dL (8-23); Carbon Dioxide 30 mEq/L (23-29); Chloride 98 mEq/L (98-107); Globulin 2.7 g/dL (2.4-3.5); Glucose 373 mg/dL (70-105); Osmolality,Calculated 303 (280-300); Potassium 4.3 mEq/L (3.5-5.1); Sodium 135 mEq/L (136-145); Total Protein 6.4 g/dL (6.4-8.9); eGFR For African Americans > 60 (> 60); eGFR For Non-African Americans 57 (> 60)
[2017-10-16] MEDS ORDERED: 0.9 % Sodium Chloride 1,000 ML ONE (02:55)
[2017-10-16] MEDS: *HR* OxyCODONE Immed Rel 5 MG TABLET PO PRN ×2 (04:49→13:58)
[2017-10-16] MEDS: Budesonide/Formoterol 160/4.5 MDI IH SCH ×2 (07:35→20:49)
[2017-10-16] MEDS ORDERED: Aminoglycoside Consult 1 EACH MC ONE (08:14)
[2017-10-16] MEDS: Aspirin 81 MG TAB.CHEW PO SCH (08:27)
[2017-10-16] MEDS: Bumetanide 1 MG TABLET PO SCH ×2 (08:27→16:26)
[2017-10-16] MEDS: Isosorbide MONOnitrate (24 HR) 60 MG TAB.ER.24H PO SCH (08:27)
[2017-10-16] MEDS: Cholecalciferol (D-3) 1,000 UNIT TABLET PO SCH (08:27)
[2017-10-16] MEDS: Metoprolol XL (24 HR) Succ 50 MG TAB.ER.24H PO SCH (08:28)
[2017-10-16] MEDS: Fenofibrate 54 MG TABLET PO SCH (08:28)
[2017-10-16] MEDS: methylPREDNISolone 125 MG/2 ML VIAL IVP SCH (08:29)
[2017-10-16] MEDS: Magnesium Oxide 400 MG TABLET PO SCH (08:29)
[2017-10-16] MEDS: amLODIPine 5 MG TABLET PO SCH (08:30)
[2017-10-16] MEDS: clonazePAM 0.5 MG TABLET PO PRN (08:36)
[2017-10-16] MEDS ORDERED: Insulin DETEMIR 100 UNIT/ML X5UNITS SQ SCH (09:00)
[2017-10-16] MEDS: *HR* Heparin 5,000 UNIT/ML VIAL SQ SCH ×3 (10:29→22:01)
[2017-10-16] MEDS: Levofloxacin 500 MG/100 ML 500 MG/100 ML BAG IVPB SCH (11:26)
--- NOTE | 2017-10-16 12:52 | Internal Med Progress Note ---
Date of Encounter: 10/16/17 Time of Encounter: 11:00 - Assessment and plan (1) COPD exacerbation Current Visit: No Status: Acute Assessment and plan: The patient has no wheezes on exam today. No wheezes on exam. I will just give her the IV dose that she is receiving already steroids singh. We will switch her to oral starting tomorrow.. Continue nebulizers treatments scheduled. Wean down oxygen as tolerated. Continue Levaquin. (2) Acute bronchitis Current Visit: Yes Status: Acute Assessment and plan: Plan as above. Continue Levaquin. Qualifiers: Bronchitis organism: unspecified organism Qualified Code(s): J20.9 - Acute bronchitis, unspecified (3) Cellulitis of both lower extremities Current Visit: Yes Status: Chronic Assessment and plan: continue Levaquin. (4) Chronic diastolic CHF (congestive heart failure) Current Visit: No Status: Chronic Assessment and plan: The patient seems euvolemic. Continue Bumex and beta randy. (5) CAD (coronary artery disease) Current Visit: No Status: Chronic Assessment and plan: Continue aspirin Plavix statin beta randy and Imdur. Qualifiers: Coronary Disease-Associated Artery/Lesion type: [place] artery [place] vs. transplanted heart: [place] heart Associated angina: with stable angina Qualified Code(s): I25.118 - Atherosclerotic heart disease of [place] coronary artery with other forms of angina pectoris (6) HTN (hypertension) Current Visit: No Status: Chronic Assessment and plan: Blood pressure stable. Continue with home medications Qualifiers: Hypertension type: essential hypertension Qualified Code(s): I10 - Essential (primary) hypertension (7) Type 2 diabetes mellitus Current Visit: Yes Status: Chronic Assessment and plan: Blood glucose is fluctuating now. Continue with insulin drip. The patient is on steroids which exacerbates hyperglycemia. Patient is on significant amount of insulin Levemir at home. Continue with Accu-Cheks. I am hoping with decreased steroids that the glucose would improve. 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 mellitus complication status: with neurologic complications Diabetes mellitus complication detail: with polyneuropathy Diabetes mellitus intermediate card tender insulin use: with care home use Qualified Code(s): E11.42 - Type 2 diabetes mellitus with diabetic polyneuropathy; Z79.4 - correction (current) use of insulin; Z79.4 - correction (current) use of insulin; Z79.4 - correction ( current) use of insulin; Z79.4 - correction (current) use of insulin (8) DVT prophylaxis Current Visit: Yes Status: Acute Assessment and plan: Heparin subcutaneous - Subjective Interval history: She was seen and examined. Continues to feel better. I had started on an insulin drip. Glucose still fluctuates. She did go down as low as 70s from what I understand however she is up-to-date 200s to 300s again. She is admitted with a COPD exacerbation. Was recently discharged on 10/03 with a COPD exacerbation. She is on about 2-3 L chronically at home for 2 nasal cannula. Her stay so far has been complicated by significantly elevated glucose. She is on steroids. She has also been started on vancomycin and ceftriaxone for possible cellulitis of the lower extremities is the fourth red however she does have chronic venous stasis. She had a dog bite/scratch about a week ago on her right boo and she tells me her leg has been swollen more since then. Been afebrile here. - Constitutional Vitals: Temp Pulse Resp BP Pulse Ox 97.4 F L 74 17 112/63 94 10/16/17 11:09 10/16/17 11:09 10/16/17 11:09 10/16/17 11:09 10/16/17 11:09 General appearance: Present: cooperative, A&O X 3, morbidly obese, pleasant, no acute distress, answers questions appropriately Exam: GEN: NAD CVS: RRR. S1, S2, No m/r/g RESP: Diminished with expiratory wheezes heard at the posterior lung padgett. ABD: Soft, NT, ND, +BS EXT: The patient does have findings of chronic venous stasis at the lower extremities with erythema noted and swelling more prominent on the right lower extremity than it is on the left. 2+ DP. No rashes NEURO: Nonfocal Internal Medicine: Result - Labs CBC & Chem 7: 10/16/17 01:27 10/16/17 01:27 Labs: Short CBC 10/16/17 Range/Units 01:27 WBC 9.2 (4.3-11.1) K/mcL Hgb 9.9 L (11.5-15.4) g/dL Hct 33.1 L (35.3-44.9) % Plt Count 225 (140-400) K/mcL Neutrophils # 6.9 (1.6-8.9) K/mcL BMP 10/16/17 01:27 Sodium 135 L Potassium 4.3 Chloride 98 Carbon Dioxide 30 H BUN 33 H Creatinine 0.99 Glucose 373 H Calcium 9.0 Liver Function 10/16/17 Range/Units 01:27 Total Bilirubin 0.3 (0.3-1.0) mg/dL AST 12 L (13-39) Units/L ALT 16 (7-52) Units/L Alkaline Phosphatase 55 (34-104) Units/L Albumin 3.7 (3.5-5.7) g/dL - ABG Interpretation ABG results: PT/INR, D-dimer PT 9.9 Seconds (9.4-12.1) 10/13/17 07:26 Consult Discharge Plan - Plan Referrals: NONE,PCP [Primary Care Provider] -
[2017-10-16] MEDS: ARIPiprazole 10 MG TABLET PO SCH (19:28)
[2017-10-16] MEDS: traMADol 50 MG TABLET PO PRN (19:43)
[2017-10-17] MEDS: Ipratropium/Albuterol Neb 3 ML IH SCH ×6 (00:25→20:16)
[2017-10-17] MEDS: *HR* OxyCODONE Immed Rel 5 MG TABLET PO PRN ×3 (01:22→23:32)
[2017-10-17] MEDS: traMADol 50 MG TABLET PO PRN ×3 (05:35→21:23)
[2017-10-17 05:49] LABS: Basophils # 0.1 K/mcL (0.0-0.2); Basophils % 0.6 %; Eosinophils # 0.1 K/mcL (0.0-0.6); Eosinophils % 0.9 %; Hematocrit 31.9 % (35.3-44.9); Hemoglobin 9.5 g/dL (11.5-15.4); Immature Granulocytes % 1.3 % (0-4); Lymphocytes # 3.7 K/mcL (0.6-4.6); Lymphocytes % 37.8 %; Mean Corpuscular HGB Conc 29.8 g/dL (31.6-35.5); Mean Corpuscular Hemoglobin 25.3 pg (28.0-33.3); Mean Corpuscular Volume 85.1 fL (83.0-100.0); Mean Platelet Volume 11.5 fL (9.4-12.4); Monocytes # 0.6 K/mcL (0.0-1.3); Monocytes % 5.8 %; Neutrophils # 5.2 K/mcL (1.6-8.9); Nucleated Red Blood Cells 0.2 /100 WBC (0); Platelet Count 218 K/mcL (140-400); Red Blood Count 3.75 M/mcL (3.82-4.97); Red Cell Distribution Width 16.2 % (11.5-14.5); Segmented Neutrophils % 53.6 %
[2017-10-17 06:06] LABS: Alanine Aminotransferase 22 Units/L (7-52); Albumin 3.5 g/dL (3.5-5.7); Albumin/Globulin Ratio 1.5 (1.1-2.2); Alkaline Phosphatase 51 Units/L (34-104); Aspartate Amino Transferase 30 Units/L (13-39); BUN/Creatinine Ratio 34 (6-26); Bilirubin,Total 0.3 mg/dL (0.3-1.0); Blood Urea Nitrogen 29 mg/dL (8-23); Calcium 8.9 mg/dL (8.6-10.3); Carbon Dioxide 30 mEq/L (23-29); Chloride 100 mEq/L (98-107); Globulin 2.4 g/dL (2.4-3.5); Glucose 202 mg/dL (70-105); Osmolality,Calculated 298 (280-300); Potassium 3.9 mEq/L (3.5-5.1); Sodium 138 mEq/L (136-145); Total Protein 5.9 g/dL (6.4-8.9); eGFR For African Americans > 60 (> 60); eGFR For Non-African Americans > 60 (> 60)
[2017-10-17] MEDS: *HR* Heparin 5,000 UNIT/ML VIAL SQ SCH ×3 (06:38→21:22)
[2017-10-17] MEDS: Budesonide/Formoterol 160/4.5 MDI IH SCH ×2 (07:37→20:16)
[2017-10-17] MEDS: Fenofibrate 54 MG TABLET PO SCH (07:55)
[2017-10-17] MEDS: Bumetanide 1 MG TABLET PO SCH ×2 (07:55→16:08)
[2017-10-17] MEDS: Metoprolol XL (24 HR) Succ 50 MG TAB.ER.24H PO SCH (07:55)
[2017-10-17] MEDS: Magnesium Oxide 400 MG TABLET PO SCH (07:56)
[2017-10-17] MEDS: Aspirin 81 MG TAB.CHEW PO SCH (07:56)
[2017-10-17] MEDS: predniSONE 20 MG TABLET PO SCH (07:56)
[2017-10-17] MEDS: amLODIPine 5 MG TABLET PO SCH (07:56)
[2017-10-17] MEDS: clonazePAM 0.5 MG TABLET PO PRN (07:56)
[2017-10-17] MEDS: Cholecalciferol (D-3) 1,000 UNIT TABLET PO SCH (07:56)
[2017-10-17] MEDS: Isosorbide MONOnitrate (24 HR) 60 MG TAB.ER.24H PO SCH (07:57)
[2017-10-17] MEDS: Gabapentin 400 MG CAPSULE PO SCH ×5 (07:59→23:32)
--- NOTE | 2017-10-17 08:46 | Internal Med Progress Note ---
Date of Encounter: 10/17/17 Time of Encounter: 08:44 - Assessment and plan (1) COPD exacerbation Current Visit: No Status: Acute Assessment and plan: The patient has no wheezes. switch to oral steroids today. Continue nebulizers treatments scheduled. Wean down oxygen as tolerated. Continue Levaquin day 5. (2) Acute bronchitis Current Visit: Yes Status: Acute Assessment and plan: Plan as above. Continue Levaquin day 5 Qualifiers: Bronchitis organism: unspecified organism Qualified Code(s): J20.9 - Acute bronchitis, unspecified (3) Cellulitis of both lower extremities Current Visit: Yes Status: Chronic Assessment and plan: continue Levaquin. day 5 abx. will possilby treat for 2 more days (4) Chronic diastolic CHF (congestive heart failure) Current Visit: No Status: Chronic Assessment and plan: The patient seems euvolemic. Continue Bumex and beta randy. (5) CAD (coronary artery disease) Current Visit: No Status: Chronic Assessment and plan: Continue aspirin Plavix statin beta randy and Imdur. Qualifiers: Coronary Disease-Associated Artery/Lesion type: [place] artery [place] vs. transplanted heart: [place] heart Associated angina: with stable angina Qualified Code(s): I25.118 - Atherosclerotic heart disease of [place] coronary artery with other forms of angina pectoris (6) HTN (hypertension) Current Visit: No Status: Chronic Assessment and plan: Blood pressure stable. Continue with home medications Qualifiers: Hypertension type: essential hypertension Qualified Code(s): I10 - Essential (primary) hypertension (7) Type 2 diabetes mellitus Current Visit: Yes Status: Chronic Assessment and plan: Blood glucose is better. Will take her off the drip this morning and give her SQ levemir. She is on high doses at home and I am hesitant to give her that much levemir. will give her half her home dose for now and SSI. possibe d/c tomorrow if glucose is ok. Continue with Accu-Cheks. 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 mellitus complication status: with neurologic complications Diabetes mellitus complication detail: with polyneuropathy Diabetes mellitus retirement insulin use: with adjunct faculty for medical terminology use Qualified Code(s): E11.42 - Type 2 diabetes mellitus with diabetic polyneuropathy; Z79.4 - [facility] (current) use of insulin; Z79.4 - [facility] (current) use of insulin; Z79.4 - adjunct faculty for medical terminology ( current) use of insulin; Z79.4 - adjunct faculty for medical terminology (current) use of insulin (8) DVT prophylaxis Current Visit: Yes Status: Acute Assessment and plan: Heparin subcutaneous - Subjective Interval history: She was seen and examined. Continues to feel better. I had started on an insulin drip with better glycemic control. She continues to eat on the insulin drip. Afebrile. She is admitted with a COPD exacerbation. Was recently discharged on 10/03 with a COPD exacerbation. She is on about 2-3 L chronically at home for 2 nasal cannula. Her stay so far has been complicated by significantly elevated glucose. She is on steroids. She has also been started on vancomycin and ceftriaxone for possible cellulitis of the lower extremities is the fourth red however she does have chronic venous stasis. She had a dog bite/scratch about a week ago on her right boo and she tells me her leg has been swollen more since then. . - Constitutional Vitals: Temp Pulse Resp BP Pulse Ox 97.4 F L 64 16 125/75 96 10/17/17 07:13 10/17/17 07:13 10/17/17 07:13 10/17/17 07:13 10/17/17 07:13 General appearance: Present: cooperative, A&O X 3, morbidly obese, pleasant, no acute distress, answers questions appropriately Exam: GEN: NAD CVS: RRR. S1, S2, No m/r/g RESP: Diminished with no wheezes. ABD: Soft, NT, ND, +BS EXT: The patient does have findings of chronic venous stasis at the lower extremities with erythema noted and swelling more prominent on the right lower extremity than it is on the left. 2+ DP. No rashes NEURO: Nonfocal Internal Medicine: Result - Labs CBC & Chem 7: 10/17/17 04:36 10/17/17 04:36 Labs: Short CBC 10/17/17 Range/Units 04:36 WBC 9.7 (4.3-11.1) K/mcL Hgb 9.5 L (11.5-15.4) g/dL Hct 31.9 L (35.3-44.9) % Plt Count 218 (140-400) K/mcL Neutrophils # 5.2 (1.6-8.9) K/mcL BMP 10/17/17 04:36 Sodium 138 Potassium 3.9 Chloride 100 Carbon Dioxide 30 H BUN 29 H Creatinine 0.85 Glucose 202 H Calcium 8.9 Liver Function 10/17/17 Range/Units 04:36 Total Bilirubin 0.3 (0.3-1.0) mg/dL AST 30 (13-39) Units/L ALT 22 (7-52) Units/L Alkaline Phosphatase 51 (34-104) Units/L Albumin 3.5 (3.5-5.7) g/dL - ABG Interpretation ABG results: PT/INR, D-dimer PT 9.9 Seconds (9.4-12.1) 10/13/17 07:26 Consult Discharge Plan - Plan Referrals: NONE,PCP [Primary Care Provider] -
[2017-10-17] MEDS ORDERED: methylPREDNISolone 125 MG/2 ML VIAL IVP SCH (09:00)
[2017-10-17] MEDS ORDERED: Insulin DETEMIR 100 UNIT/ML X5UNITS SQ SCH ×2 (09:00→21:00)
[2017-10-17] MEDS ORDERED: Insulin LISPRO 300 UNITS/3 ML VIAL SQ SCH ×2 (11:30→21:00)
[2017-10-17] MEDS: levoFLOXacin 500 MG TABLET PO SCH (12:02)
[2017-10-17] MEDS: tiZANidine 4 MG TABLET PO PRN (12:03)
[2017-10-17] MEDS: Insulin Human Regular 100 UNIT in 0.9 % Sodium Chloride 100 ML IVC SCH (12:35)
--- NOTE | 2017-10-17 17:02 | Event Note ---
Date of Encounter: 10/17/17 Time of Encounter: 17:02 Glucoses consistently elevated again. Back into the 500s. We will put the patient back again on an insulin drip. The patient has had a similar problem last time she was here as well.
[2017-10-17] MEDS: ARIPiprazole 10 MG TABLET PO SCH (20:31)
[2017-10-18] MEDS: Ipratropium/Albuterol Neb 3 ML IH SCH ×6 (00:28→19:27)
[2017-10-18] MEDS: Insulin Human Regular 100 UNIT in 0.9 % Sodium Chloride 100 ML IVC SCH (00:49)
[2017-10-18] MEDS: *HR* Heparin 5,000 UNIT/ML VIAL SQ SCH ×3 (05:20→19:48)
[2017-10-18] MEDS: traMADol 50 MG TABLET PO PRN (05:21)
[2017-10-18 06:06] LABS: Basophils # 0.1 K/mcL (0.0-0.2); Basophils % 0.6 %; Eosinophils # 0.2 K/mcL (0.0-0.6); Eosinophils % 1.4 %; Hematocrit 34.9 % (35.3-44.9); Hemoglobin 10.4 g/dL (11.5-15.4); Immature Granulocytes % 1.5 % (0-4); Lymphocytes # 4.2 K/mcL (0.6-4.6); Lymphocytes % 36.1 %; Mean Corpuscular HGB Conc 29.8 g/dL (31.6-35.5); Mean Corpuscular Hemoglobin 25.4 pg (28.0-33.3); Mean Corpuscular Volume 85.1 fL (83.0-100.0); Mean Platelet Volume 11.2 fL (9.4-12.4); Monocytes # 0.6 K/mcL (0.0-1.3); Monocytes % 5.1 %; Neutrophils # 6.4 K/mcL (1.6-8.9); Platelet Count 233 K/mcL (140-400); Red Cell Distribution Width 16.6 % (11.5-14.5); Segmented Neutrophils % 55.3 %
[2017-10-18 06:40] LABS: BUN/Creatinine Ratio 34 (6-26); Blood Urea Nitrogen 27 mg/dL (8-23); Calcium 9.1 mg/dL (8.6-10.3); Carbon Dioxide 31 mEq/L (23-29); Chloride 100 mEq/L (98-107); Glucose 130 mg/dL (70-105); Osmolality,Calculated 293 (280-300); Potassium 3.7 mEq/L (3.5-5.1); Sodium 138 mEq/L (136-145); eGFR For African Americans > 60 (> 60); eGFR For Non-African Americans > 60 (> 60)
[2017-10-18] MEDS: Budesonide/Formoterol 160/4.5 MDI IH SCH ×2 (07:33→19:27)
--- NOTE | 2017-10-18 08:20 | Internal Med Progress Note ---
Date of Encounter: 10/18/17 Time of Encounter: 11:30 - Assessment and plan (1) Acute exacerbation of chronic obstructive pulmonary disease (COPD) Current Visit: Yes Status: Acute Assessment and plan: Symptoms are improving. Taper steroids. Continue bronchodilators and O2 supplementation (2) Acute bronchitis Current Visit: Yes Status: Acute Assessment and plan: On levofloxacin. Complete 7 day course. Qualifiers: Bronchitis organism: unspecified organism Qualified Code(s): J20.9 - Acute bronchitis, unspecified (3) CAD (coronary artery disease) Current Visit: Yes Status: Chronic Assessment and plan: Continue aspirin, statin and Plavix. Qualifiers: Coronary Disease-Associated Artery/Lesion type: [place] artery [place] vs. transplanted heart: [place] heart Associated angina: with stable angina Qualified Code(s): I25.118 - Atherosclerotic heart disease of [place] coronary artery with other forms of angina pectoris (4) Cellulitis of both lower extremities Current Visit: Yes Status: Chronic Assessment and plan: Resolving. Continue levofloxacin. (5) Chronic diastolic CHF (congestive heart failure) Current Visit: Yes Status: Chronic Assessment and plan: Continue diuretics. (6) DVT prophylaxis Current Visit: Yes Status: Acute Assessment and plan: On subcutaneous heparin (7) Hypertension Current Visit: Yes Status: Chronic Assessment and plan: Blood pressure is well controlled Qualifiers: Hypertension type: essential hypertension Qualified Code(s): I10 - Essential (primary) hypertension (8) Type 2 diabetes mellitus Current Visit: Yes Status: Chronic Assessment and plan: Remains uncontrolled. We will slowly transition patient off IV insulin. We will place patient on nutritional coverage and add sliding scale correctional coverage. Also place patient on 60 units Levemir twice daily. We will continue to monitor blood sugars every hour and adjust insulin regimen accordingly. 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 mellitus complication status: with neurologic complications Diabetes mellitus complication detail: with polyneuropathy Diabetes mellitus rodent exterminator insulin use: with rodent exterminator use Qualified Code(s): E11.42 - Type 2 diabetes mellitus with diabetic polyneuropathy; Z79.4 - rn long term care (current) use of insulin; Z79.4 - rn long term care (current) use of insulin; Z79.4 - rn long term care ( current) use of insulin; Z79.4 - rn long term care (current) use of insulin - Subjective Interval history: Patient complains of vaginal itching possibly from vaginal yeast infection. Also concerned that her blood sugars are not being controlled and nothing by mouth at this time as she is on an insulin drip. She had refused her steroid this morning as it was contributing to her elevated blood sugars. Her shortness of breath has improved. She denies any wheezing at this time. - Constitutional Vitals: Temp Pulse Resp BP Pulse Ox 97.4 F L 66 18 117/76 96 10/18/17 06:46 10/18/17 06:46 10/18/17 07:35 10/18/17 06:46 10/18/17 07:35 General appearance: Present: cooperative, A&O X 3, morbidly obese, pleasant, no acute distress, answers questions appropriately - Respiratory Respiratory exam: Present: CTAB, prolonged expiratory phase. Absent: accessory muscle use, rales, rhonchi, wheezes - Cardiovascular Cardiovascular exam: Present: RRR, +S1, +S2. Absent: diastolic murmur, gallop, rubs, systolic murmur - GI/Abdominal GI/Abdominal exam: Present: normal bowel sounds, soft, no peritoneal signs. Absent: distended, tenderness - Extremities Exam Extremities exam: Present: warm, radial pulses palpable and symmetrical. Absent : calf tenderness, cyanotic Additional comments: Bilateral lower extremity erythema-appears to be stasis dermatitis. No superficial tenderness or warmth noted. - Neurological Exam Neurological exam: Present: alert, CN II-XII intact, oriented X3, no focal deficits. Absent: facial droop, speech deficit Internal Medicine: Result - Labs CBC & Chem 7: 10/18/17 05:50 10/18/17 05:50 Labs: Short CBC 10/18/17 Range/Units 05:50 WBC 11.6 H (4.3-11.1) K/mcL Hgb 10.4 L (11.5-15.4) g/dL Hct 34.9 L (35.3-44.9) % Plt Count 233 (140-400) K/mcL Neutrophils # 6.4 (1.6-8.9) K/mcL BMP 10/18/17 05:50 Sodium 138 Potassium 3.7 Chloride 100 Carbon Dioxide 31 H BUN 27 H Creatinine 0.80 Glucose 130 H Calcium 9.1 - ABG Interpretation ABG results: PT/INR, D-dimer PT 9.9 Seconds (9.4-12.1) 10/13/17 07:26 Consult Discharge Plan - Plan Referrals: NONE,PCP [Primary Care Provider] -
[2017-10-18] MEDS: Isosorbide MONOnitrate (24 HR) 60 MG TAB.ER.24H PO SCH (08:25)
[2017-10-18] MEDS: Aspirin 81 MG TAB.CHEW PO SCH (08:25)
[2017-10-18] MEDS: Magnesium Oxide 400 MG TABLET PO SCH (08:26)
[2017-10-18] MEDS: Cholecalciferol (D-3) 1,000 UNIT TABLET PO SCH (08:26)
[2017-10-18] MEDS: Bumetanide 1 MG TABLET PO SCH ×2 (08:26→16:29)
[2017-10-18] MEDS: Fenofibrate 54 MG TABLET PO SCH (08:27)
[2017-10-18] MEDS: amLODIPine 5 MG TABLET PO SCH (08:27)
[2017-10-18] MEDS: Metoprolol XL (24 HR) Succ 50 MG TAB.ER.24H PO SCH (08:28)
[2017-10-18] MEDS: predniSONE 20 MG TABLET PO SCH (08:28)
[2017-10-18] MEDS: clonazePAM 0.5 MG TABLET PO PRN (08:42)
[2017-10-18] MEDS: Gabapentin 400 MG CAPSULE PO SCH ×4 (08:42→19:48)
[2017-10-18] MEDS: *HR* OxyCODONE Immed Rel 5 MG TABLET PO PRN ×3 (08:42→19:45)
[2017-10-18] MEDS: levoFLOXacin 500 MG TABLET PO SCH (11:35)
[2017-10-18] MEDS ORDERED: Fluconazole 100 MG TABLET PO ONE (11:41)
[2017-10-18] MEDS ORDERED: Insulin DETEMIR 100 UNIT/ML X5UNITS SQ SCH ×2 (11:45→21:00)
[2017-10-18] MEDS: Insulin LISPRO 300 UNITS/3 ML VIAL SQ SCH ×4 (11:57→16:47)
[2017-10-18] MEDS: tiZANidine 4 MG TABLET PO PRN (19:45)
[2017-10-18] MEDS: ARIPiprazole 10 MG TABLET PO SCH (19:45)
[2017-10-18] MEDS ORDERED: Insulin LISPRO 300 UNITS/3 ML VIAL SQ SCH (21:00)
[2017-10-19] MEDS: Ipratropium/Albuterol Neb 3 ML IH SCH ×4 (00:09→11:35)
[2017-10-19] MEDS: traMADol 50 MG TABLET PO PRN (00:57)
[2017-10-19] MEDS: Gabapentin 400 MG CAPSULE PO SCH ×2 (01:22→08:17)
[2017-10-19] MEDS: *HR* Heparin 5,000 UNIT/ML VIAL SQ SCH (06:01)
[2017-10-19] MEDS: Budesonide/Formoterol 160/4.5 MDI IH SCH (07:37)
[2017-10-19] MEDS ORDERED: Insulin LISPRO 300 UNITS/3 ML VIAL SQ SCH (08:15)
[2017-10-19] MEDS: Magnesium Oxide 400 MG TABLET PO SCH (08:17)
[2017-10-19] MEDS: Aspirin 81 MG TAB.CHEW PO SCH (08:18)
[2017-10-19] MEDS: amLODIPine 5 MG TABLET PO SCH (08:18)
[2017-10-19] MEDS: Bumetanide 1 MG TABLET PO SCH (08:18)
[2017-10-19] MEDS: Fenofibrate 54 MG TABLET PO SCH (08:18)
[2017-10-19] MEDS: Cholecalciferol (D-3) 1,000 UNIT TABLET PO SCH (08:18)
[2017-10-19] MEDS: Metoprolol XL (24 HR) Succ 50 MG TAB.ER.24H PO SCH (08:19)
[2017-10-19] MEDS: predniSONE 20 MG TABLET PO SCH (08:19)
[2017-10-19] MEDS: *HR* OxyCODONE Immed Rel 5 MG TABLET PO PRN (08:19)
[2017-10-19] MEDS: Isosorbide MONOnitrate (24 HR) 60 MG TAB.ER.24H PO SCH (08:19)
[2017-10-19] MEDS: Insulin LISPRO 300 UNITS/3 ML VIAL SQ SCH ×2 (08:20→08:49)
[2017-10-19] MEDS: Insulin DETEMIR 100 UNIT/ML X5UNITS SQ SCH ×2 (08:37→08:49)
[2017-10-19] MEDS: clonazePAM 0.5 MG TABLET PO PRN (10:33)
--- NOTE | 2017-10-19 10:49 | Discharge Summary ---
Date of Encounter: 10/19/17 Time of Encounter: 10:45 - Discharge Diagnosis (1) Acute exacerbation of chronic obstructive pulmonary disease (COPD) Priority: Primary Status: Acute (2) Acute bronchitis Priority: Secondary Status: Acute Qualifiers: Bronchitis organism: unspecified organism Qualified Code(s): J20.9 - Acute bronchitis, unspecified (3) CAD (coronary artery disease) Priority: Secondary Status: Chronic Qualifiers: Coronary Disease-Associated Artery/Lesion type: council artery [place] vs. transplanted heart: council heart Associated angina: with stable angina Qualified Code(s): I25.118 - Atherosclerotic heart disease of council coronary artery with other forms of angina pectoris (4) Cellulitis of both lower extremities Priority: Secondary Status: Chronic (5) Chronic diastolic CHF (congestive heart failure) Priority: Secondary Status: Chronic (6) Hypertension Priority: Secondary Status: Chronic Qualifiers: Hypertension type: essential hypertension Qualified Code(s): I10 - Essential (primary) hypertension (7) Type 2 diabetes mellitus Priority: Secondary Status: Chronic 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 mellitus complication status: with neurologic complications Diabetes mellitus complication detail: with polyneuropathy Diabetes mellitus custodial insulin use: with custodial use Qualified Code(s): E11.42 - Type 2 diabetes mellitus with diabetic polyneuropathy; Z79.4 - penitentiary (current) use of insulin; Z79.4 - penitentiary (current) use of insulin; Z79.4 - penitentiary ( current) use of insulin; Z79.4 - intermediate frame tender (current) use of insulin (8) Yeast vaginitis Priority: Secondary Status: Acute (9) DVT prophylaxis Priority: Secondary Status: Acute Hospital course: Ms. Lynch is a 62 year old female patient with history of COPD, diabetes, coronary artery disease who was hospitalized here with acute COPD exacerbation and acute bronchitis. She was treated with intravenous steroids and bronchodilators and antibiotics. Her symptoms improved with this treatment plan but she became severely hyperglycemic. She was placed on intravenous insulin therapy to control her blood sugars better. She has now been transitioned to subcutaneous insulin and her blood sugars are ranging between 200-300. She wishes to go home at this time. She understands the importance of staying compliant with her insulin regimen. She will be discharged today. She will complete antibiotic treatment with levofloxacin. She does not wish to take prednisone taper at this time. She is advised to return to the ER if her symptoms worsen or if her blood sugars continue to remain uncontrolled or difficult to control at home. She was treated for yeast vaginitis with a single dose of fluconazole with improvement in her symptoms. Discharge discussed with: patient, case management - Time Spent with Patient Total time spent providing and/or coordinating discharge services: Greater than 30 minutes (35 min) - Discharge Medications Prescriptions: Insulin LISPRO [Humalog Kwikpen U-100] 2 - 10 unit SQ TID PRN #1 insuln.pen PRN Reason: SLIDING SCALE levoFLOXacin [Levaquin] 500 mg PO Q24H #4 tablet Home Medications: Budesonide/Formoterol 160/4.5 [Symbicort] 2 puff IH BIDR 04/21/15 [History] Levothyroxine [Synthroid] 100 mcg PO QAM 04/21/15 [History] Tiotropium [Spiriva] 18 mcg IH QAM 04/21/15 [History] metFORMIN [Glucophage] 1,000 mg PO BID 04/21/15 [History] Atorvastatin Calcium [Lipitor] 40 mg PO DAILY 02/04/16 [History] Montelukast [Singulair] 10 mg PO HS 02/04/16 [History] Oxygen 2 l NS AD PRN 03/17/16 [History] Insulin Glargine [Lantus] 80 unit SQ QPM 03/25/16 [History] Insulin Glargine [Lantus] 90 unit SQ QAM 03/25/16 [History] Albuterol Sulfate [Albuterol Inhaler] 2 puff IH Q4HR PRN 05/01/16 [History] Citalopram Hydrobromide [Citalopram HBr] 40 mg PO DAILY 05/01/16 [History] Raloxifene [Evista] 60 mg PO DAILY 05/01/16 [History] Aripiprazole [Abilify] 10 mg PO HS tablet 05/03/16 [Rx] Fenofibrate Nanocrystallized [Tricor] 145 mg PO DAILY 06/15/16 [History] Clopidogrel [Plavix] 75 mg PO QAM tablet 06/18/16 [Rx] Aspirin 81 mg PO DAILY #60 tab.chew 12/06/16 [Rx] Mag Hydrox/Al Hydrox/Simeth [Maalox] 30 ml PO Q6H PRN 30 Days oral.susp [Rx] Cholecalciferol (D-3) [Vitamin D] 1,000 unit PO DAILY 04/27/17 [History] Metoclopramide [Reglan] 10 mg PO TID 04/27/17 [History] Metoprolol XL (24 HR) Succ [Toprol Xl] 50 mg PO DAILY 04/27/17 [History] clonazePAM [Klonopin] 0.5 mg PO DAILY PRN 05/28/17 [History] Magnesium Oxide [Mag-Ox] 400 mg PO DAILY #0 tab 05/29/17 [Rx] Bumetanide 2 mg PO BID 06/11/17 [History] Gabapentin [Neurontin] 800 mg PO 5XD 06/11/17 [History] Omeprazole [PriLOSEC] 20 mg PO BIDAC 06/11/17 [History] Potassium Chloride 20 meq PO BID 06/11/17 [History] Tizanidine HCl [Zanaflex] 4 mg PO TID PRN 06/11/17 [History] amLODIPine [Norvasc] 2.5 mg PO DAILY 06/11/17 [History] metOLazone [Zaroxolyn] 2.5 mg PO DAILY PRN 06/11/17 [History] Isosorbide MONOnitrate (24 HR) [Imdur] 120 mg PO DAILY 06/26/17 [History] [place]-3 Fatty Acids/Fish Oil [Fish Oil 1,000 mg Softgel] 1 cap PO DAILY [History] Nortriptyline [Pamelor] 25 mg PO HS 06/27/17 [History] DiphenhydraMINE [Benadryl] 25 mg PO HS 08/29/17 [History] Roflumilast [Daliresp] 500 mcg PO DAILY #30 tablet 09/09/17 [Rx] Buspirone HCl [Buspar] 20 mg PO BID 09/12/17 [History] Buprenorphine [Butrans] 1 patch TD QWEEK 09/19/17 [History] Tramadol HCl [Ultram] 50 mg PO TID PRN 09/19/17 [History] GuaiFENesin ER [Mucinex] 600 mg PO Q12H #6 tbbp.12hr 09/22/17 [Rx] Insulin LISPRO [Humalog Kwikpen U-100] 2 - 10 unit SQ TID PRN #1 insuln.pen [Rx] levoFLOXacin [Levaquin] 500 mg PO Q24H #4 tablet 10/19/17 [Rx] Allergies/Adverse Reactions: 3 Allergy/AdvReac Type Severity Reaction Status Date / Time No Known Allergies Allergy Verified 10/13/17 08:09 Date of admission: 10/16/17 11:57 Primary care physician: PCP NONE Discharging clinician: Del Ortiz Anticipated date of discharge: 10/19/17 - Constitutional Vitals: Temp Pulse Resp BP Pulse Ox 97.8 F 74 16 134/88 92 10/19/17 07:26 10/19/17 07:26 10/19/17 07:39 10/19/17 07:26 10/19/17 07:39 General appearance: Present: cooperative, A&O X 3, morbidly obese, pleasant, no acute distress, answers questions appropriately - Neck Neck exam general surgery: Present: supple, trachea midline. Absent: lymphadenopathy - Respiratory Respiratory exam: Present: CTAB. Absent: accessory muscle use, rales, rhonchi, wheezes - Cardiovascular Cardiovascular exam: Present: RRR, +S1, +S2. Absent: diastolic murmur, gallop, rubs, systolic murmur - GI/Abdominal GI/Abdominal exam: Present: normal bowel sounds, soft, no peritoneal signs. Absent: distended, tenderness - Extremities Exam Extremities exam: Present: warm, radial pulses palpable and symmetrical. Absent : calf tenderness, cyanotic, pedal edema Additional comments: stasis dermatitis both lower extremities - Neurological Exam Neurological exam: Present: alert, oriented X3, no focal deficits. Absent: facial droop, speech deficit - Skin Skin exam: Present: dry, intact - Patient Status Disposition: Home, Self-Care Condition: Good Functional capacity at discharge: independent ambulation Overall status at discharge: patient is progressing back to baseline - Discharge Instructions Instructions: Cellulitis (DC), Diabetes Mellitus Type 2 in Adults (DC), Chronic Obstructive Pulmonary Disease (DC), Diabetic Hyperglycemia (DC) Follow Up With: NONE,PCP [Primary Care Provider] - Additional Instructions: Follow-up with PCP in one week - Diet and Activity Activity: increase activity as tolerated Diet: low fat, low cholesterol, low salt diet
[2017-10-19 11:13] VITALS: BP 119/80
--- NOTE | 2017-10-19 11:29 | Physician Discharge Referral ---
Home Health/Hosp Referral Info Transfer to: Home Health Provider in Charge Post Discharge: PCP - Diagnosis (1) Acute exacerbation of chronic obstructive pulmonary disease (COPD) Priority: Primary Status: Acute (2) Acute bronchitis Priority: Secondary Status: Acute (3) CAD (coronary artery disease) Priority: Secondary Status: Chronic (4) Cellulitis of both lower extremities Priority: Secondary Status: Chronic (5) Chronic diastolic CHF (congestive heart failure) Priority: Secondary Status: Chronic (6) Hypertension Priority: Secondary Status: Chronic (7) Type 2 diabetes mellitus Priority: Secondary Status: Chronic (8) Yeast vaginitis Priority: Secondary Status: Acute (9) DVT prophylaxis Priority: Secondary Status: Acute - Respiratory Orders Oxygen / L per min (2) Smoking Cessation: Smoking cessation has been advised. For more information, call the [employer] Quit Line at 6-690-MNCW-NOW. - Diet/Nutrition Diet/Nutrition Orders: Cardiac, No Concentrated Sweets (diabetic) - Activity Activity Orders: Walker - Services Needed Following services are medically necessary services: Nursing, Home Health Aide, Physical Therapy, Occupational Therapy - Transfer Medications Prescriptions: Insulin LISPRO [Humalog Kwikpen U-100] 2 - 10 unit SQ TID PRN #1 insuln.pen PRN Reason: SLIDING SCALE levoFLOXacin [Levaquin] 500 mg PO Q24H #4 tablet Home Medications: Budesonide/Formoterol 160/4.5 [Symbicort] 2 puff IH BIDR 04/21/15 [History] Levothyroxine [Synthroid] 100 mcg PO QAM 04/21/15 [History] Tiotropium [Spiriva] 18 mcg IH QAM 04/21/15 [History] metFORMIN [Glucophage] 1,000 mg PO BID 04/21/15 [History] Atorvastatin Calcium [Lipitor] 40 mg PO DAILY 02/04/16 [History] Montelukast [Singulair] 10 mg PO HS 02/04/16 [History] Oxygen 2 l NS AD PRN 03/17/16 [History] Insulin Glargine [Lantus] 80 unit SQ QPM 03/25/16 [History] Insulin Glargine [Lantus] 90 unit SQ QAM 03/25/16 [History] Albuterol Sulfate [Albuterol Inhaler] 2 puff IH Q4HR PRN 05/01/16 [History] Citalopram Hydrobromide [Citalopram HBr] 40 mg PO DAILY 05/01/16 [History] Raloxifene [Evista] 60 mg PO DAILY 05/01/16 [History] Aripiprazole [Abilify] 10 mg PO HS tablet 05/03/16 [Rx] Fenofibrate Nanocrystallized [Tricor] 145 mg PO DAILY 06/15/16 [History] Clopidogrel [Plavix] 75 mg PO QAM tablet 06/18/16 [Rx] Aspirin 81 mg PO DAILY #60 tab.chew 12/06/16 [Rx] Mag Hydrox/Al Hydrox/Simeth [Maalox] 30 ml PO Q6H PRN 30 Days oral.susp [Rx] Cholecalciferol (D-3) [Vitamin D] 1,000 unit PO DAILY 04/27/17 [History] Metoclopramide [Reglan] 10 mg PO TID 04/27/17 [History] Metoprolol XL (24 HR) Succ [Toprol Xl] 50 mg PO DAILY 04/27/17 [History] clonazePAM [Klonopin] 0.5 mg PO DAILY PRN 05/28/17 [History] Magnesium Oxide [Mag-Ox] 400 mg PO DAILY #0 tab 05/29/17 [Rx] Bumetanide 2 mg PO BID 06/11/17 [History] Gabapentin [Neurontin] 800 mg PO 5XD 06/11/17 [History] Omeprazole [PriLOSEC] 20 mg PO BIDAC 06/11/17 [History] Potassium Chloride 20 meq PO BID 06/11/17 [History] Tizanidine HCl [Zanaflex] 4 mg PO TID PRN 06/11/17 [History] amLODIPine [Norvasc] 2.5 mg PO DAILY 06/11/17 [History] metOLazone [Zaroxolyn] 2.5 mg PO DAILY PRN 06/11/17 [History] Isosorbide MONOnitrate (24 HR) [Imdur] 120 mg PO DAILY 06/26/17 [History] [place]-3 Fatty Acids/Fish Oil [Fish Oil 1,000 mg Softgel] 1 cap PO DAILY [History] Nortriptyline [Pamelor] 25 mg PO HS 06/27/17 [History] DiphenhydraMINE [Benadryl] 25 mg PO HS 08/29/17 [History] Roflumilast [Daliresp] 500 mcg PO DAILY #30 tablet 09/09/17 [Rx] Buspirone HCl [Buspar] 20 mg PO BID 09/12/17 [History] Buprenorphine [Butrans] 1 patch TD QWEEK 09/19/17 [History] Tramadol HCl [Ultram] 50 mg PO TID PRN 09/19/17 [History] GuaiFENesin ER [Mucinex] 600 mg PO Q12H #6 tbbp.12hr 09/22/17 [Rx] Insulin LISPRO [Humalog Kwikpen U-100] 2 - 10 unit SQ TID PRN #1 insuln.pen [Rx] levoFLOXacin [Levaquin] 500 mg PO Q24H #4 tablet 10/19/17 [Rx] Allergies/Adverse Reactions: 3 Allergy/AdvReac Type Severity Reaction Status Date / Time No Known Allergies Allergy Verified 10/13/17 08:09 Certification: Further, I certify that my clinical findings support that this patient is homebound (i.e. absences from home require considerable and taxing effort and are for medical reasons or muslim services or infrequently or short duration when for other reasons) because: Homebound Reason: Patient requires assistance of a person or device to safely leave home, Severity of cardiac or pulmonary status limits activity tolerance Attestation: My signature below is to certify that this patient is under my care and that I, or nurse practitioner, or a physician's back office medical assistant working with me, has a face-to -face encounter with this patient.
== END 2017-10-19 12:26 | disposition home health service (06) | DRG 191 ==
LOC: 2ANU 07:09 → EMEROO 07:09 → 2ANU 13:41 → SUATTDRO 10-16 11:57
PROVIDERS: ADMIT Registered Nurse; ATTEND Internal Medicine

== ENCOUNTER 2017-10-25 06:11 | Inpatient (IN) ==
[2017-10-25] MEDS ORDERED: Furosemide 40 MG/4 ML VIAL IVP ONE (06:42)
[2017-10-25] MEDS ORDERED: Ipratropium/Albuterol Neb 3 ML IH ONE (06:42)
--- NOTE | 2017-10-25 06:47 | Emergency Department Note ---
Disposition Clinical Impression: Atypical chest pain Congestive heart failure Qualifiers: Heart failure type: unspecified Heart failure chronicity: acute on chronic Qualified Code(s): I50.9 - Heart failure, unspecified Disposition: Still a Patient Condition: Fair Referrals: NONE,PCP [Primary Care Provider] - Forms: ED Satisfaction Letter SOB HPI - General Chief Complaint: ED Shortness of Breath/Dyspnea Stated Complaint: "CP/CHF/COPD" Time Seen by Provider: 10/25/17 06:33 Source: patient Limitations: no limitations Nursing Notes Reviewed: Yes Vital Signs Reviewed: Yes - History of Present Illness 62-year-old female with history of COPD and CHF presents to the emergency department with a complaint that she awoke from sleep this morning gasping for air and short of breath. She also complains of some left-sided chest pain which she describes as sharp and stabbing. No cough or fever. Patient states that she feels like this is a flareup of her CHF. She reports increased swelling in her ankles and states that she has gained about 5 pounds. She does have home oxygen but does not wear it all the time and states that she took it off tonight. 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 - Related Data Home Medications Medication Instructions Recorded Confirmed Budesonide/Formoterol 160/4.5 2 puff IH BIDR 04/21/15 10/13/17 [Symbicort] Levothyroxine [Synthroid] 100 mcg PO QAM 04/21/15 10/13/17 Tiotropium [Spiriva] 18 mcg IH QAM 04/21/15 10/13/17 metFORMIN [Glucophage] 1,000 mg PO BID 04/21/15 10/13/17 Atorvastatin Calcium [Lipitor] 40 mg PO DAILY 02/04/16 10/13/17 Montelukast [Singulair] 10 mg PO HS 02/04/16 10/13/17 Oxygen 2 l NS AD PRN 03/17/16 10/13/17 Insulin Glargine [Lantus] 80 unit SQ QPM 03/25/16 10/13/17 Insulin Glargine [Lantus] 90 unit SQ QAM 03/25/16 10/13/17 Albuterol Sulfate [Albuterol 2 puff IH Q4HR PRN 05/01/16 10/13/17 Inhaler] Citalopram Hydrobromide 40 mg PO DAILY 05/01/16 10/13/17 [Citalopram HBr] Raloxifene [Evista] 60 mg PO DAILY 05/01/16 10/13/17 Fenofibrate Nanocrystallized 145 mg PO DAILY 06/15/16 10/13/17 [Tricor] Cholecalciferol (D-3) [Vitamin D] 1,000 unit PO DAILY 04/27/17 10/13/17 Metoclopramide [Reglan] 10 mg PO TID 04/27/17 10/13/17 Metoprolol XL (24 HR) Succ [Toprol 50 mg PO DAILY 04/27/17 10/13/17 Xl] clonazePAM [Klonopin] 0.5 mg PO DAILY PRN 05/28/17 10/13/17 Bumetanide 2 mg PO BID 06/11/17 10/13/17 Gabapentin [Neurontin] 800 mg PO 5XD 06/11/17 10/13/17 Omeprazole [PriLOSEC] 20 mg PO BIDAC 06/11/17 10/13/17 Potassium Chloride 20 meq PO BID 06/11/17 10/13/17 Tizanidine HCl [Zanaflex] 4 mg PO TID PRN 06/11/17 10/13/17 amLODIPine [Norvasc] 2.5 mg PO DAILY 06/11/17 10/13/17 metOLazone [Zaroxolyn] 2.5 mg PO DAILY PRN 06/11/17 10/13/17 Isosorbide MONOnitrate (24 HR) 120 mg PO DAILY 06/26/17 10/13/17 [Imdur] [place]-3 Fatty Acids/Fish Oil [Fish 1 cap PO DAILY 06/26/17 10/13/17 Oil 1,000 mg Softgel] Nortriptyline [Pamelor] 25 mg PO HS 06/27/17 10/13/17 DiphenhydraMINE [Benadryl] 25 mg PO HS 08/29/17 10/13/17 Buspirone HCl [Buspar] 20 mg PO BID 09/12/17 10/13/17 Buprenorphine [Butrans] 1 patch TD QWEEK 09/19/17 10/13/17 Tramadol HCl [Ultram] 50 mg PO TID PRN 09/19/17 10/13/17 Previous Rx's Medication Instructions Recorded Aripiprazole [Abilify] 10 mg PO HS tablet 05/03/16 Clopidogrel [Plavix] 75 mg PO QAM tablet 06/18/16 Aspirin 81 mg PO DAILY #60 tab.chew 12/06/16 Mag Hydrox/Al Hydrox/Simeth 30 ml PO Q6H PRN 30 Days oral.susp 03/26/17 [Maalox] Magnesium Oxide [Mag-Ox] 400 mg PO DAILY #0 tab 05/29/17 Roflumilast [Daliresp] 500 mcg PO DAILY #30 tablet 09/09/17 GuaiFENesin ER [Mucinex] 600 mg PO Q12H #6 tbbp.12hr 09/22/17 Insulin LISPRO [Humalog Kwikpen 2 - 10 unit SQ TID PRN #1 10/19/17 U-100] insuln.pen levoFLOXacin [Levaquin] 500 mg PO Q24H #4 tablet 10/19/17 Allergies Allergy/AdvReac Type Severity Reaction Status Date / Time No Known Allergies Allergy Verified 10/13/17 08:09 All systems ED: reviewed and negative except as stated. Constitutional: Denies: fever, chills ENT ED: Denies: congestion Cardiovascular: Reports: chest pain, edema. Denies: palpitations, syncope Respiratory: Reports: dyspnea, wheezes. Denies: cough, hemoptysis, sputum production Gastrointestinal: Reports: constipation. Denies: abdominal pain, nausea, vomiting, diarrhea, hematemesis, melena, hematochezia Genitourinary: Denies: dysuria, frequency, hematuria Musculoskeletal: Denies: back pain, neck pain Neurological: Denies: headache, weakness Psychiatric: Denies: anxiety Past Medical History - Past Medical History Medical history: Reports: arthritis, CHF, COPD, coronary artery disease, diabetes, GERD, hyperlipidemia, hypertension, osteoporosis, renal disease, thyroid disease, TIA, venous stasis, other Surgical history: Reports: angioplasty/stent, , cholecystectomy, hysterectomy Psychiatric history: Reports: anxiety, bipolar, depression, panic disorder 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 Absent: tenderness, meningismus - Chest Chest inspection: Present: normal inspection, symmetric chest wall rise. Absent : tenderness - Respiratory Respiratory exam: Present: wheezes (There are a few scattered bilateral expiratory wheezes. No rales noted.). Absent: respiratory distress - Cardiovascular Cardiovascular exam: Present: regular rate, normal rhythm, normal heart sounds - Abdominal Exam Abdominal exam: Present: soft, Non-Tender, normal bowel sounds - Extremities Exam Extremities exam: Present: pedal edema (1+ pitting edema bilaterally) - Back Exam Back exam: Present: normal inspection. Absent: CVA tenderness (R), CVA tenderness (L) - Neurological Exam Neurological exam: Present: alert, oriented X3. Absent: motor sensory deficit - Psychiatric Psychiatric exam: Present: depressed - Skin Skin exam: Present: warm, dry. Absent: cyanosis, diaphoresis Course Course Narrative: 62-year-old female presents with increased shortness of breath. Concerned about CHF. Also some chest pain which is sharp and stabbing. Workup initiated for chest pain and shortness of breath. EKG and chest x-ray ordered along with lab work. Also DuoNeb treatment and IV Lasix ordered. At shift change [facility] Fregoso. Vital Signs Temperature 98.0 F 10/25/17 06:13 Pulse Rate 99 10/25/17 06:13 Respiratory Rate 20 10/25/17 06:13 Blood Pressure 154/74 10/25/17 06:13 O2 Sat by Pulse Oximetry 98 10/25/17 06:13 Temperature 98.0 F 10/25/17 06:13 Pulse Rate 99 10/25/17 06:13 Respiratory Rate 20 10/25/17 06:13 Blood Pressure 154/74 10/25/17 06:13 O2 Sat by Pulse Oximetry 98 10/25/17 06:13 Oxygen Delivery Oxygen Delivery Nasal Cannula
--- NOTE | 2017-10-25 06:57 | Emergency Department Note ---
Disposition Clinical Impression: Atypical chest pain, Hypokalemia Congestive heart failure Qualifiers: Heart failure type: unspecified Heart failure chronicity: acute on chronic Qualified Code(s): I50.9 - Heart failure, unspecified Disposition: Admitted As Inpatient Condition: Fair Referrals: NONE,PCP [Primary Care Provider] - Forms: ED Satisfaction Letter Time of Disposition: 07:38 General Adult HPI - General Chief complaint: ED Shortness of Breath/Dyspnea Stated complaint: "CP/CHF/COPD" Time Seen by Provider: 10/25/17 06:33 Source: patient Limitations: no limitations - History of Present Illness Pain Scale: 7 - Related Data Home Medications Medication Instructions Recorded Confirmed Budesonide/Formoterol 160/4.5 2 puff IH BIDR 04/21/15 10/13/17 [Symbicort] Levothyroxine [Synthroid] 100 mcg PO QAM 04/21/15 10/13/17 Tiotropium [Spiriva] 18 mcg IH QAM 04/21/15 10/13/17 metFORMIN [Glucophage] 1,000 mg PO BID 04/21/15 10/13/17 Atorvastatin Calcium [Lipitor] 40 mg PO DAILY 02/04/16 10/13/17 Montelukast [Singulair] 10 mg PO HS 02/04/16 10/13/17 Oxygen 2 l NS AD PRN 03/17/16 10/13/17 Insulin Glargine [Lantus] 80 unit SQ QPM 03/25/16 10/13/17 Insulin Glargine [Lantus] 90 unit SQ QAM 03/25/16 10/13/17 Albuterol Sulfate [Albuterol 2 puff IH Q4HR PRN 05/01/16 10/13/17 Inhaler] Citalopram Hydrobromide 40 mg PO DAILY 05/01/16 10/13/17 [Citalopram HBr] Raloxifene [Evista] 60 mg PO DAILY 05/01/16 10/13/17 Fenofibrate Nanocrystallized 145 mg PO DAILY 06/15/16 10/13/17 [Tricor] Cholecalciferol (D-3) [Vitamin D] 1,000 unit PO DAILY 04/27/17 10/13/17 Metoclopramide [Reglan] 10 mg PO TID 04/27/17 10/13/17 Metoprolol XL (24 HR) Succ [Toprol 50 mg PO DAILY 04/27/17 10/13/17 Xl] clonazePAM [Klonopin] 0.5 mg PO DAILY PRN 05/28/17 10/13/17 Bumetanide 2 mg PO BID 06/11/17 10/13/17 Gabapentin [Neurontin] 800 mg PO 5XD 06/11/17 10/13/17 Omeprazole [PriLOSEC] 20 mg PO BIDAC 06/11/17 10/13/17 Potassium Chloride 20 meq PO BID 06/11/17 10/13/17 Tizanidine HCl [Zanaflex] 4 mg PO TID PRN 06/11/17 10/13/17 amLODIPine [Norvasc] 2.5 mg PO DAILY 06/11/17 10/13/17 metOLazone [Zaroxolyn] 2.5 mg PO DAILY PRN 06/11/17 10/13/17 Isosorbide MONOnitrate (24 HR) 120 mg PO DAILY 06/26/17 10/13/17 [Imdur] [place]-3 Fatty Acids/Fish Oil [Fish 1 cap PO DAILY 06/26/17 10/13/17 Oil 1,000 mg Softgel] Nortriptyline [Pamelor] 25 mg PO HS 06/27/17 10/13/17 DiphenhydraMINE [Benadryl] 25 mg PO HS 08/29/17 10/13/17 Buspirone HCl [Buspar] 20 mg PO BID 09/12/17 10/13/17 Buprenorphine [Butrans] 1 patch TD QWEEK 09/19/17 10/13/17 Tramadol HCl [Ultram] 50 mg PO TID PRN 09/19/17 10/13/17 Previous Rx's Medication Instructions Recorded Aripiprazole [Abilify] 10 mg PO HS tablet 05/03/16 Clopidogrel [Plavix] 75 mg PO QAM tablet 06/18/16 Aspirin 81 mg PO DAILY #60 tab.chew 12/06/16 Mag Hydrox/Al Hydrox/Simeth 30 ml PO Q6H PRN 30 Days oral.susp 03/26/17 [Maalox] Magnesium Oxide [Mag-Ox] 400 mg PO DAILY #0 tab 05/29/17 Roflumilast [Daliresp] 500 mcg PO DAILY #30 tablet 09/09/17 GuaiFENesin ER [Mucinex] 600 mg PO Q12H #6 tbbp.12hr 09/22/17 Insulin LISPRO [Humalog Kwikpen 2 - 10 unit SQ TID PRN #1 10/19/17 U-100] insuln.pen levoFLOXacin [Levaquin] 500 mg PO Q24H #4 tablet 10/19/17 Allergies Allergy/AdvReac Type Severity Reaction Status Date / Time No Known Allergies Allergy Verified 10/13/17 08:09 Constitutional: Denies: fever, chills ENT ED: Denies: congestion Cardiovascular: Reports: chest pain, edema. Denies: palpitations, syncope Respiratory: Reports: dyspnea, wheezes. Denies: cough, hemoptysis, sputum production Gastrointestinal: Reports: constipation. Denies: abdominal pain, nausea, vomiting, diarrhea, hematemesis, melena, hematochezia Genitourinary: Denies: dysuria, frequency, hematuria Musculoskeletal: Denies: back pain, neck pain Neurological: Denies: headache, weakness Psychiatric: Denies: anxiety Past Medical History - Past Medical History Medical history: Reports: arthritis, CHF, COPD, coronary artery disease, diabetes, GERD, hyperlipidemia, hypertension, osteoporosis, renal disease, thyroid disease, TIA, venous stasis, other Surgical history: Reports: angioplasty/stent, , cholecystectomy, hysterectomy Psychiatric history: Reports: anxiety, bipolar, depression, panic disorder [employer]PER[employer]OR [employer] history: Reports: bilateral tubal ligation - Social History Smoking Status: Former smoker Smokeless Tobacco Status: No Alcohol use: Reports: none Drug use: Reports: none Physical Exam - General Limitations: no limitations General appearance: alert, in no apparent distress, obese Course Vital Signs Temperature 98.0 F 10/25/17 06:13 Pulse Rate 99 10/25/17 06:13 Respiratory Rate 20 10/25/17 06:13 Blood Pressure 154/74 10/25/17 06:13 O2 Sat by Pulse Oximetry 98 10/25/17 06:13 Temperature 98.0 F 10/25/17 06:13 Pulse Rate 99 10/25/17 06:13 Respiratory Rate 18 10/25/17 07:11 Blood Pressure 154/74 10/25/17 06:13 O2 Sat by Pulse Oximetry 96 10/25/17 07:11 Oxygen Delivery Oxygen Delivery Nasal Cannula Medical Decision Making - Medical Records Medical records reviewed: Yes I reviewed the patient's medical records. recent echo report reviewed - Lab Data Lab results reviewed: Yes I reviewed the patient's lab results. Result diagrams: 10/25/17 06:49 10/25/17 06:49 Lab Results 10/25/17 10/25/17 10/25/17 Range/Units 06:49 06:49 06:49 WBC 9.9 (4.3-11.1) K/mcL RBC 4.01 (3.82-4.97) M/mcL Hgb 10.2 L (11.5-15.4) g/dL Hct 33.3 L (35.3-44.9) % MCV 83.0 (83.0-100.0) fL MCH 25.4 L (28.0-33.3) pg MCHC 30.6 L (31.6-35.5) g/dL RDW 16.0 H (11.5-14.5) % Plt Count 249 (140-400) K/mcL MPV 11.3 (9.4-12.4) fL Immature Gran % 2.0 (0-4) % Seg Neutrophils % 59.5 % Lymphocytes % 29.2 % Monocytes % 6.6 % Eosinophils % 2.1 % Basophils % 0.6 % Neutrophils # 5.9 (1.6-8.9) K/mcL Lymphocytes # 2.9 (0.6-4.6) K/mcL Monocytes # 0.7 (0.0-1.3) K/mcL Eosinophils # 0.2 (0.0-0.6) K/mcL Basophils # 0.1 (0.0-0.2) K/mcL Nucleated RBCs/100 WBC 0.3 H (0) /100 WBC Sodium 139 (136-145) mEq/L Potassium 2.9 L (3.5-5.1) mEq/L Chloride 92 L (98-107) mEq/L Carbon Dioxide 39 H (23-29) mEq/L BUN 46 H (8-23) mg/dL Creatinine 1.19 (0.60-1.20) mg/dL Est GFR ( Amer) 56 L (> 60) Est GFR (Non-Af Amer) 46 L (> 60) BUN/Creatinine Ratio 39 H (6-26) Glucose 229 H (70-105) mg/dL Calculated Osmolality 307 H (280-300) Calcium 10.0 (8.6-10.3) mg/dL Troponin I < 0.03 (< 0.04) ng/mL B-Natriuretic Peptide (Less than 100) pg/mL 10/25/17 Range/Units 06:49 WBC (4.3-11.1) K/mcL RBC (3.82-4.97) M/mcL Hgb (11.5-15.4) g/dL Hct (35.3-44.9) % MCV (83.0-100.0) fL MCH (28.0-33.3) pg MCHC (31.6-35.5) g/dL RDW (11.5-14.5) % Plt Count (140-400) K/mcL MPV (9.4-12.4) fL Immature Gran % (0-4) % Seg Neutrophils % % Lymphocytes % % Monocytes % % Eosinophils % % Basophils % % Neutrophils # (1.6-8.9) K/mcL Lymphocytes # (0.6-4.6) K/mcL Monocytes # (0.0-1.3) K/mcL Eosinophils # (0.0-0.6) K/mcL Basophils # (0.0-0.2) K/mcL Nucleated RBCs/100 WBC (0) /100 WBC Sodium (136-145) mEq/L Potassium (3.5-5.1) mEq/L Chloride (98-107) mEq/L Carbon Dioxide (23-29) mEq/L BUN (8-23) mg/dL Creatinine (0.60-1.20) mg/dL Est GFR ( Amer) (> 60) Est GFR (Non-Af Amer) (> 60) BUN/Creatinine Ratio (6-26) Glucose (70-105) mg/dL Calculated Osmolality (280-300) Calcium (8.6-10.3) mg/dL Troponin I (< 0.04) ng/mL B-Natriuretic Peptide 18 (Less than 100) pg/mL - Radiology Data Radiology results reviewed: Yes I reviewed the patient's radiology results. Attestation Statement - Attestation Attestation: Care of patient assumed from Dr. Ponce 7 AM pending labs, chest x-ray, reevaluation. Patient presented with dyspnea and 5 pound weight gain. She appears in no acute distress on exam. ECG reviewed by me and compared to previous 10/16 and is unchanged. He does not show any dynamic ST segment elevation. Patient appears in no acute distress on exam and requested ice chips. Workup pending
[2017-10-25 06:58] LABS: Basophils # 0.1 K/mcL (0.0-0.2); Basophils % 0.6 %; Eosinophils # 0.2 K/mcL (0.0-0.6); Eosinophils % 2.1 %; Hematocrit 33.3 % (35.3-44.9); Hemoglobin 10.2 g/dL (11.5-15.4); Lymphocytes # 2.9 K/mcL (0.6-4.6); Lymphocytes % 29.2 %; Mean Corpuscular HGB Conc 30.6 g/dL (31.6-35.5); Mean Corpuscular Hemoglobin 25.4 pg (28.0-33.3); Mean Platelet Volume 11.3 fL (9.4-12.4); Monocytes # 0.7 K/mcL (0.0-1.3); Monocytes % 6.6 %; Neutrophils # 5.9 K/mcL (1.6-8.9); Nucleated Red Blood Cells 0.3 /100 WBC (0); Platelet Count 249 K/mcL (140-400); Red Blood Count 4.01 M/mcL (3.82-4.97); Segmented Neutrophils % 59.5 %
[2017-10-25 07:14] LABS: Potassium 2.9 mEq/L (3.5-5.1)
[2017-10-25] MEDS ORDERED: Potassium Chloride Elixir 20 MEQ/15 ML UDC PO ONE (07:23)
[2017-10-25] MEDS ORDERED: traMADol 50 MG TABLET PO ONE (07:54)
--- NOTE | 2017-10-25 11:45 | Internal Med History&Physical ---
Date of Encounter: 10/25/17 Time of Encounter: 11:41 Assessment and Plan (1) Atypical chest pain Current visit: Yes Status: Chronic Chest pain atypical chest pain with transient troponin discussed with the ER physician to obtain CTA to rule out pulmonary embolism given acute chest pain no shortness of breath BNP is normal (2) Hyperlipidemia Current visit: No Status: Chronic Chronic continue home medication Qualifiers: Hyperlipidemia type: pure hypercholesterolemia Qualified Code(s): E78.00 - Pure hypercholesterolemia, unspecified; E78.0 - Pure hypercholesterolemia (3) Hypertension Current visit: No Status: Chronic Chronic resume home medication Qualifiers: Hypertension type: essential hypertension Qualified Code(s): I10 - Essential (primary) hypertension (4) COPD exacerbation Current visit: No Status: Chronic Chronic will place him [place] (5) Morbid obesity with BMI of 40.0-44.9, adult Current visit: No Status: Chronic (6) HTN (hypertension) Current visit: No Status: Chronic Qualifiers: Hypertension type: essential hypertension Qualified Code(s): I10 - Essential (primary) hypertension (7) Cellulitis of both lower extremities Current visit: No Status: Chronic Chronic cellulitis with appear to be exacerbation (8) Hypothyroidism Current visit: No Status: Chronic Chronic resume home medication Qualifiers: Hypothyroidism type: acquired Qualified Code(s): E03.9 - Hypothyroidism, unspecified (9) CAD (coronary artery disease) Current visit: No Status: Chronic History of prior stent with transient troponin Qualifiers: Coronary Disease-Associated Artery/Lesion type: [place] artery [place] vs. transplanted heart: [place] heart Associated angina: with stable angina Qualified Code(s): I25.118 - Atherosclerotic heart disease of [place] coronary artery with other forms of angina pectoris (10) Type 2 diabetes mellitus Current visit: No Status: Chronic 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 mellitus complication status: with neurologic complications Diabetes mellitus complication detail: with polyneuropathy Diabetes mellitus detention insulin use: with intermediate accountant use Qualified Code(s): E11.42 - Type 2 diabetes mellitus with diabetic polyneuropathy; Z79.4 - [facility] (current) use of insulin; Z79.4 - long term care phlebotomist (current) use of insulin; Z79.4 - [facility] ( current) use of insulin; Z79.4 - long term care phlebotomist (current) use of insulin Internal Medicine - H&P: HPI Chief complaint: chest pain and sob, cellulitis Admitted From: Emergency Dept Plans for Post Hospital Care: Home History of present illness: Ms. Lynch is a 62 year old female Patient with history of COPD, congestive heart failure, CAD had previous stent, diabetes, obesity, GERD, high cholesterol, hypertension, TIA, venous stasis, and hypothyroidism. Patient woke up with shortness of breath and some chest pain also increased leg swelling and says she gained about 5 pounds in the last few days also increase redness of bilateral lower extremity with warmth emergency room chest x-ray does not show pneumonia BNP is 18 exam some wheezing and bilateral lower extremity cellulitis patient admitted for further evaluation discussed with ER physician to obtain CT of the chest to rule out pulmonary embolism as well Past Med Surg Social Fam HX - Past Medical History Medical history: arthritis, CHF, COPD, coronary artery disease, diabetes, GERD, hyperlipidemia, hypertension, osteoporosis, renal disease, thyroid disease, TIA , venous stasis, other Psychiatric history: anxiety, bipolar, depression, panic disorder - Past Surgical History Surgical History: angioplasty/stent, , cholecystectomy, hysterectomy - Social History Smoking Status: Former smoker Smokeless Tobacco Status: No Alcohol use: none Drug use: none - Family History Brother Adopted: No Family Member Ethnicity: Non- Living Status: Hx Family Cardiac Disorders: Yes Father Adopted: No Family Member Ethnicity: Non- Living Status: Hx Family Cardiac Disorders: Yes (HD, HLD, HTN, NH, Triple Bypass) Hx Family Neurologic Disorders: Yes (Dementia) Mother Adopted: No Family Member Ethnicity: Non- Living Status: Hx Family Cardiac Disorders: Yes (NH, HTN, HLD, Strokes x5) Hx Family Respiratory Disorders: No Hx Family Cancer: No Hx Family GI Disorders: No Hx Family Endocrine Disorder: Yes (DM) Hx Family Neuromuscular Disorders: No Hx Family Neurologic Disorders: Yes (Strokes) Hx Family HEENT Disorders: No Hx Family Autoimmune Disorders: No Internal Medicine - H&P: Meds Budesonide/Formoterol 160/4.5 [Symbicort] 2 puff IH BIDR 04/21/15 [History] Levothyroxine [Synthroid] 100 mcg PO QAM 04/21/15 [History] Tiotropium [Spiriva] 18 mcg IH QAM 04/21/15 [History] metFORMIN [Glucophage] 1,000 mg PO BID 04/21/15 [History] Atorvastatin Calcium [Lipitor] 40 mg PO DAILY 02/04/16 [History] Montelukast [Singulair] 10 mg PO HS 02/04/16 [History] Oxygen 2 l NS AD PRN 03/17/16 [History] Insulin Glargine [Lantus] 80 unit SQ QPM 03/25/16 [History] Insulin Glargine [Lantus] 90 unit SQ QAM 03/25/16 [History] Albuterol Sulfate [Albuterol Inhaler] 2 puff IH Q4HR PRN 05/01/16 [History] Citalopram Hydrobromide [Citalopram HBr] 40 mg PO DAILY 05/01/16 [History] Raloxifene [Evista] 60 mg PO DAILY 05/01/16 [History] Aripiprazole [Abilify] 10 mg PO HS tablet 05/03/16 [Rx] Fenofibrate Nanocrystallized [Tricor] 145 mg PO DAILY 06/15/16 [History] Clopidogrel [Plavix] 75 mg PO QAM tablet 06/18/16 [Rx] Aspirin 81 mg PO DAILY #60 tab.chew 12/06/16 [Rx] Mag Hydrox/Al Hydrox/Simeth [Maalox] 30 ml PO Q6H PRN 30 Days oral.susp [Rx] Cholecalciferol (D-3) [Vitamin D] 1,000 unit PO DAILY 04/27/17 [History] Metoclopramide [Reglan] 10 mg PO TID 04/27/17 [History] Metoprolol XL (24 HR) Succ [Toprol Xl] 50 mg PO DAILY 04/27/17 [History] clonazePAM [Klonopin] 0.5 mg PO DAILY PRN 05/28/17 [History] Magnesium Oxide [Mag-Ox] 400 mg PO DAILY #0 tab 05/29/17 [Rx] Bumetanide 2 mg PO BID 06/11/17 [History] Gabapentin [Neurontin] 800 mg PO 5XD 06/11/17 [History] Omeprazole [PriLOSEC] 20 mg PO BIDAC 06/11/17 [History] Potassium Chloride 20 meq PO BID 06/11/17 [History] Tizanidine HCl [Zanaflex] 4 mg PO TID PRN 06/11/17 [History] amLODIPine [Norvasc] 2.5 mg PO DAILY 06/11/17 [History] metOLazone [Zaroxolyn] 2.5 mg PO DAILY PRN 06/11/17 [History] Isosorbide MONOnitrate (24 HR) [Imdur] 120 mg PO DAILY 06/26/17 [History] [place]-3 Fatty Acids/Fish Oil [Fish Oil 1,000 mg Softgel] 1 cap PO DAILY [History] Nortriptyline [Pamelor] 25 mg PO HS 06/27/17 [History] DiphenhydraMINE [Benadryl] 25 mg PO HS 08/29/17 [History] Roflumilast [Daliresp] 500 mcg PO DAILY #30 tablet 09/09/17 [Rx] Buspirone HCl [Buspar] 20 mg PO BID 09/12/17 [History] Buprenorphine [Butrans] 1 patch TD QWEEK 09/19/17 [History] Tramadol HCl [Ultram] 50 mg PO TID PRN 09/19/17 [History] GuaiFENesin ER [Mucinex] 600 mg PO Q12H #6 tbbp.12hr 09/22/17 [Rx] Insulin LISPRO [Humalog Kwikpen U-100] 2 - 10 unit SQ TID PRN #1 insuln.pen [Rx] 3 Allergy/AdvReac Type Severity Reaction Status Date / Time No Known Allergies Allergy Verified 10/13/17 08:09 All Systems PM: A 10-system review of systems was performed and is negative for pertinent findings except as documented above in the HPI. - Constitutional Constitutional: fatigue, weight gain - EENT Eyes: no change in vision, no discharge, no pain, no photophobia Ears: no ear discharge, no ear pain, no tinnitus Nose, mouth and throat: no dysphagia, no nasal discharge, no neck pain, no sore throat - Cardiovascular Cardiovascular ROS IM: chest pain, dyspnea, dyspnea on exertion - Respiratory Respiratory: dyspnea on exertion, chest congestion - Gastrointestinal Gastrointestinal: no abdominal pain, no diarrhea, no hematemesis, no hematochezia, no melena, no nausea, no vomiting - Genitourinary Genitourinary: no change in urinary stream, no dysuria, no flank pain, no hematuria - Musculoskeletal Musculoskeletal ROS IM: no numbness, no tingling - Constitutional Vitals: Temp Pulse Resp BP Pulse Ox 98.0 F 89 14 149/93 95 10/25/17 06:13 10/25/17 11:15 10/25/17 11:15 10/25/17 11:15 10/25/17 11:15 General appearance: Present: mild distress - Eye Eye exam: Present: PERRL, conjuntiva pink, sclera anicteric Pupils: Present: PERRL - Respiratory Respiratory exam: Present: prolonged expiratory phase, wheezes - Cardiovascular Cardiovascular exam: Present: RRR, systolic murmur - GI/Abdominal GI/Abdominal exam: Present: normal bowel sounds, soft, no peritoneal signs. Absent: distended, tenderness - Extremities Exam Extremities exam: Present: tenderness, warm Internal Med - H&P Results - Labs CBC & Chem 7: 10/25/17 06:49 10/25/17 06:49
[2017-10-25] MEDS ORDERED: Acetaminophen 325 MG TABLET PO PRN (11:51)
[2017-10-25] MEDS ORDERED: Naloxone 0.4 MG/ML INJ IVP PRN (11:51)
[2017-10-25] MEDS ORDERED: NON-FORMULARY MEDICATION 1 EACH EACH (Oxygen [Oxygen] 2 L) NS PRN (11:54)
[2017-10-25] MEDS ORDERED: Mag Hydrox/Al Hydrox/Simeth 30 ML UDC PO PRN (11:54)
[2017-10-25] MEDS ORDERED: metOLazone 2.5 MG TABLET PO PRN (11:54)
[2017-10-25] MEDS ORDERED: *HR* Dextrose 50 % in Water (Syg) 50 ML SYRINGE IVP PRN (11:59)
[2017-10-25] MEDS ORDERED: D5% in Water 1,000 ML IVC PRN (11:59)
[2017-10-25] MEDS ORDERED: Dextrose Gel 15 GM/37.5 ML TUBE PO PRN ×2 (11:59)
[2017-10-25] MEDS ORDERED: Buprenorphine [Butrans] 1 PATCH TP SCH (12:00)
[2017-10-25] MEDS ORDERED: Ipratropium/Albuterol Neb 3 ML IH PRN (12:00)
[2017-10-25] MEDS: Insulin LISPRO 300 UNITS/3 ML VIAL SQ SCH ×3 (13:21→20:47)
[2017-10-25] MEDS: Gabapentin 400 MG CAPSULE PO SCH ×4 (13:21→23:29)
[2017-10-25] MEDS: Ipratropium/Albuterol Neb 3 ML IH SCH ×3 (15:31→20:58)
[2017-10-25] MEDS ORDERED: Insulin LISPRO 300 UNITS/3 ML VIAL SQ SCH (16:30)
[2017-10-25] MEDS: Insulin DETEMIR 100 UNIT/ML X5UNITS SQ SCH ×2 (17:23→20:46)
[2017-10-25] MEDS: traMADol 50 MG TABLET PO PRN (17:34)
--- NOTE | 2017-10-25 20:23 | Electrocardiograph Report ---
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
[2017-10-25] MEDS: Bumetanide 1 MG TABLET PO SCH (20:43)
[2017-10-25] MEDS: ARIPiprazole 10 MG TABLET PO SCH (20:44)
[2017-10-25] MEDS: clonazePAM 0.5 MG TABLET PO PRN (20:45)
[2017-10-25] MEDS: Budesonide/Formoterol 160/4.5 MDI IH SCH (20:58)
[2017-10-25] MEDS: Ondansetron ODT 4 MG TAB.RAPDIS SL PRN (23:31)
[2017-10-26] MEDS: Ipratropium/Albuterol Neb 3 ML IH SCH ×7 (00:06→23:57)
[2017-10-26] MEDS: *HR* HYDROcodone/Acet 5/325 mg TABLET PO PRN ×4 (00:47→21:05)
[2017-10-26 05:40] LABS: BUN/Creatinine Ratio 29 (6-26); Blood Urea Nitrogen 30 mg/dL (8-23); Calcium 9.3 mg/dL (8.6-10.3); Carbon Dioxide 38 mEq/L (23-29); Chloride 92 mEq/L (98-107); Chol/HDL Ratio 4.1 (0-4.9); Cholesterol 114 mg/dL (< 200); Glucose 382 mg/dL (70-105); HDL Cholesterol 28 mg/dL (40-59); Magnesium 1.4 mg/dL (1.6-2.6); Osmolality,Calculated 306 (280-300); Potassium 2.9 mEq/L (3.5-5.1); Sodium 137 mEq/L (136-145); Triglycerides 458 mg/dL (< 150); eGFR For African Americans > 60 (> 60); eGFR For Non-African Americans 55 (> 60)
[2017-10-26] MEDS: Aspirin 81 MG TAB.CHEW PO SCH (08:00)
[2017-10-26] MEDS: Bumetanide 1 MG TABLET PO SCH ×2 (08:00→19:42)
[2017-10-26] MEDS: Fenofibrate 54 MG TABLET PO SCH (08:00)
[2017-10-26] MEDS: Magnesium Oxide 400 MG TABLET PO SCH (08:00)
[2017-10-26] MEDS: Isosorbide MONOnitrate (24 HR) 60 MG TAB.ER.24H PO SCH (08:01)
[2017-10-26] MEDS: Metoprolol XL (24 HR) Succ 50 MG TAB.ER.24H PO SCH (08:01)
[2017-10-26] MEDS: Cholecalciferol (D-3) 1,000 UNIT TABLET PO SCH (08:01)
[2017-10-26] MEDS: amLODIPine 5 MG TABLET PO SCH (08:02)
[2017-10-26] MEDS: Insulin LISPRO 300 UNITS/3 ML VIAL SQ SCH ×4 (08:03→19:46)
[2017-10-26] MEDS: Gabapentin 400 MG CAPSULE PO SCH ×5 (08:13→23:21)
[2017-10-26] MEDS: Budesonide/Formoterol 160/4.5 MDI IH SCH ×2 (08:20→20:18)
[2017-10-26] MEDS ORDERED: 0.9 % Sodium Chloride 500 ML ONE ×2 (11:13→12:15)
[2017-10-26] MEDS: Insulin DETEMIR 100 UNIT/ML X5UNITS SQ SCH ×2 (11:22→19:42)
[2017-10-26] MEDS: traMADol 50 MG TABLET PO PRN ×2 (11:22→19:41)
[2017-10-26] MEDS: FATTY ACIDS PO SCH (12:27)
[2017-10-26] MEDS: OMEGA PO SCH (12:27)
[2017-10-26] MEDS: (Roflumilast [Daliresp] 500 MCG) PO SCH (12:27)
[2017-10-26] MEDS: FISH OIL PO SCH (12:27)
--- NOTE | 2017-10-26 13:02 | Internal Med Progress Note ---
Date of Encounter: 10/26/17 Time of Encounter: 11:15 - Assessment and plan (1) Acute exacerbation of chronic obstructive pulmonary disease (COPD) Current Visit: Yes Status: Acute Assessment and plan: Patient with mild acute exacerbation of COPD. Lungs are clear and diminished in posterior padgett. Patient with audible wheezing and upper airways with forced exhalation. Patient does not require steroids at this time. There is no leukocytosis or fever/chills. Patient is at her baseline oxygen use. May titrate as needed to maintain sats greater than 92%. Continue telemetry. Continue DuoNeb scheduled and when necessary. Continue Symbicort. Continue Singulair Continue to monitor labs and condition. (2) Atypical chest pain Current Visit: Yes Status: Chronic Assessment and plan: Patient had atypical chest pain on presentation to the emergency department. CTA was negative for PE. Chest x-ray showed stable, mild cardiomegaly with mild pulmonary vascular congestion. Troponins were negative 3. Currently denies chest pain. Patient with COPD, acute exacerbation this time. patient appears to be better than her normal exacerbation. Continue telemetry Continue current treatment plan. Patient has pain medication ordered. May give per schedule. (3) CAD (coronary artery disease) Current Visit: Yes Status: Chronic Assessment and plan: Patient denies chest pain. Continue telemetry Patient with uncontrolled diabetes, obesity. Continue home dose of metolazone, amlodipine, metoprolol XL, TriCor, Plavix, aspirin, and Lipitor. Qualifiers: Coronary Disease-Associated Artery/Lesion type: [place] artery [place] vs. transplanted heart: [place] heart Associated angina: with stable angina Qualified Code(s): I25.118 - Atherosclerotic heart disease of [place] coronary artery with other forms of angina pectoris (4) Cellulitis of both lower extremities Current Visit: Yes Status: Chronic Assessment and plan: Patient reports recurrent, intermittent cellulitis to bilateral lower extremities. She is currently being treated with IV vancomycin. Continue treatment. Patient reports that her dog scratched her leg which started the inflammation and pain. Continue current pain medication regimen Continue IV vancomycin Consider wound care consult if no improvement in 48 hours. (5) HLD (hyperlipidemia) Current Visit: Yes Status: Chronic Assessment and plan: Chronic. Triglycerides 458. Cholesterol within normal limits at 114. Continue to encourage lifestyle modifications, continue home dose of Lipitor 40 mg by mouth daily. Qualifiers: Hyperlipidemia type: pure hypercholesterolemia Qualified Code(s): E78.00 - Pure hypercholesterolemia, unspecified; E78.0 - Pure hypercholesterolemia (6) HTN (hypertension) Current Visit: No Status: Chronic Qualifiers: Hypertension type: essential hypertension Qualified Code(s): I10 - Essential (primary) hypertension (7) Hypertension Current Visit: Yes Status: Chronic Assessment and plan: Chronic. Continue home medications. Well controlled in hospital setting. Qualifiers: Hypertension type: essential hypertension Qualified Code(s): I10 - Essential (primary) hypertension (8) Hypokalemia Current Visit: Yes Status: Acute Assessment and plan: Patient was given a K rider in the emergency department last night, another 20 mEq K rider today. Will recheck labs this afternoon. Patient is also getting by mouth supplementation. (9) Hypothyroidism Current Visit: Yes Status: Chronic Assessment and plan: Chronic. Continue home dose of levothyroxine. Qualifiers: Hypothyroidism type: acquired Qualified Code(s): E03.9 - Hypothyroidism, unspecified (10) Morbid obesity with BMI of 45.0-49.9, adult Current Visit: Yes Status: Chronic Assessment and plan: Chronic. Continue to encourage lifestyle modifications. (11) Type 2 diabetes mellitus Current Visit: Yes Status: Chronic Assessment and plan: Uncontrolled diabetes with A1c of 9.4 this month. Continue diabetic diet, Accu- Cheks before meals at bedtime. Patient is currently on medium dose corrective sliding scale insulin. 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 Lovenox subcutaneous. Patient up to chair. Encourage ambulation as needed. - Time Spent With Patient less than 15 minutes - Subjective Interval history: This was seen and assessed at 11:15 AM. She is alert, awake, oriented and pleasant. She reports 7/10 pain and bilateral lower extremities and is requesting more pain medication than what is already ordered. She specifically asked for Roxicodone. Explained to patient that that is not possible at this time and she should continue on her home medication as well as IV antibiotics. She does not appear to be in any distress denies shortness of breath, chest pain , cough. She denies any nausea, vomiting, diarrhea, abdominal pain, dizziness or vision changes. Patient is aware that she is not going to be discharged today in verbalized understanding. - Constitutional Vitals: Temp Pulse Resp BP Pulse Ox 97.9 F 82 18 113/74 95 10/26/17 11:43 10/26/17 11:43 10/26/17 11:43 10/26/17 11:43 10/26/17 11:43 General appearance: Present: cooperative, A&O X 3, pleasant, no acute distress, answers questions appropriately - Head Head exam: Present: atraumatic, normal inspection, normocephalic - Eye Eye exam: Present: normal appearance, conjuntiva pink, sclera anicteric - Neck Neck exam general surgery: Present: supple, trachea midline. Absent: lymphadenopathy, tenderness - Respiratory Respiratory exam: Present: chest wall tenderness, CTAB. Absent: accessory muscle use, rales, respiratory distress, rhonchi, wheezes - Cardiovascular Cardiovascular exam: Present: RRR, +S1, +S2. Absent: diastolic murmur, gallop, rubs, systolic murmur - GI/Abdominal GI/Abdominal exam: Present: normal bowel sounds, soft, no peritoneal signs. Absent: distended, hepatomegaly, tenderness - Extremities Exam Extremities exam: Present: pedal edema, warm, radial pulses palpable and symmetrical. Absent: calf tenderness, cyanotic, tenderness - Expanded Lower Extremities Exam Lower Leg exam: Present: erythema, swelling, tenderness - Neurological Exam Neurological exam: Present: alert, oriented X3, no focal deficits. Absent: facial droop, speech deficit - Skin Skin exam: Present: dry, intact, normal color, warm. Absent: rash Internal Medicine: Result - Labs CBC & Chem 7: 10/25/17 06:49 10/26/17 03:27 Labs: BMP 10/26/17 03:27 Sodium 137 Potassium 2.9 L Chloride 92 L Carbon Dioxide 38 H BUN 30 H Creatinine 1.02 Glucose 382 H Calcium 9.3 Cardiac Enzymes 10/25/17 10/25/17 10/26/17 Range/Units 13:21 20:43 03:27 Troponin I < 0.03 < 0.03 < 0.03 (< 0.04) ng/mL Consult Discharge Plan - Plan Referrals: NONE,PCP [Primary Care Provider] -
[2017-10-26] MEDS: ARIPiprazole 10 MG TABLET PO SCH (19:42)
[2017-10-26] MEDS: clonazePAM 0.5 MG TABLET PO PRN (23:21)
[2017-10-27] MEDS: Ipratropium/Albuterol Neb 3 ML IH SCH ×6 (03:40→20:05)
[2017-10-27] MEDS: *HR* HYDROcodone/Acet 5/325 mg TABLET PO PRN ×3 (04:15→21:17)
[2017-10-27 05:59] LABS: Basophils # 0.1 K/mcL (0.0-0.2); Basophils % 0.6 %; Eosinophils # 0.2 K/mcL (0.0-0.6); Eosinophils % 2.4 %; Hematocrit 32.5 % (35.3-44.9); Hemoglobin 9.6 g/dL (11.5-15.4); Immature Granulocytes % 1.6 % (0-4); Lymphocytes # 2.9 K/mcL (0.6-4.6); Lymphocytes % 30.5 %; Mean Corpuscular HGB Conc 29.5 g/dL (31.6-35.5); Mean Corpuscular Hemoglobin 25.1 pg (28.0-33.3); Mean Corpuscular Volume 84.9 fL (83.0-100.0); Mean Platelet Volume 11.3 fL (9.4-12.4); Monocytes # 0.6 K/mcL (0.0-1.3); Monocytes % 6.8 %; Neutrophils # 5.5 K/mcL (1.6-8.9); Nucleated Red Blood Cells 0.2 /100 WBC (0); Platelet Count 228 K/mcL (140-400); Red Blood Count 3.83 M/mcL (3.82-4.97); Red Cell Distribution Width 16.1 % (11.5-14.5); Segmented Neutrophils % 58.1 %
[2017-10-27 06:19] LABS: BUN/Creatinine Ratio 29 (6-26); Blood Urea Nitrogen 26 mg/dL (8-23); Calcium 8.8 mg/dL (8.6-10.3); Carbon Dioxide 33 mEq/L (23-29); Chloride 93 mEq/L (98-107); Glucose 245 mg/dL (70-105); Osmolality,Calculated 297 (280-300); Potassium 2.9 mEq/L (3.5-5.1); Sodium 137 mEq/L (136-145); eGFR For African Americans > 60 (> 60); eGFR For Non-African Americans > 60 (> 60)
[2017-10-27] MEDS: *HR* Enoxaparin 40 MG/0.4 ML SYRINGE SQ SCH (06:33)
[2017-10-27] MEDS: Budesonide/Formoterol 160/4.5 MDI IH SCH ×2 (07:47→20:05)
[2017-10-27] MEDS: Bumetanide 1 MG TABLET PO SCH ×2 (08:11→21:13)
[2017-10-27] MEDS: amLODIPine 5 MG TABLET PO SCH (08:11)
[2017-10-27] MEDS: Magnesium Oxide 400 MG TABLET PO SCH (08:11)
[2017-10-27] MEDS: Fenofibrate 54 MG TABLET PO SCH (08:11)
[2017-10-27] MEDS: Aspirin 81 MG TAB.CHEW PO SCH (08:11)
[2017-10-27] MEDS: Cholecalciferol (D-3) 1,000 UNIT TABLET PO SCH (08:11)
[2017-10-27] MEDS: Insulin LISPRO 300 UNITS/3 ML VIAL SQ SCH ×4 (08:12→21:14)
[2017-10-27] MEDS: traMADol 50 MG TABLET PO PRN ×2 (08:12→20:15)
[2017-10-27] MEDS: Metoprolol XL (24 HR) Succ 50 MG TAB.ER.24H PO SCH (08:12)
[2017-10-27] MEDS: Isosorbide MONOnitrate (24 HR) 60 MG TAB.ER.24H PO SCH (08:12)
[2017-10-27] MEDS: Insulin DETEMIR 100 UNIT/ML X5UNITS SQ SCH ×2 (08:12→21:55)
[2017-10-27] MEDS: FATTY ACIDS PO SCH (08:16)
[2017-10-27] MEDS: OMEGA PO SCH (08:16)
[2017-10-27] MEDS: Gabapentin 400 MG CAPSULE PO SCH ×5 (08:16→23:27)
[2017-10-27] MEDS: (Roflumilast [Daliresp] 500 MCG) PO SCH (08:16)
[2017-10-27] MEDS: FISH OIL PO SCH (08:16)
--- NOTE | 2017-10-27 18:16 | Internal Med Progress Note ---
Date of Encounter: 10/27/17 Time of Encounter: 17:45 - Assessment and plan (1) Acute exacerbation of chronic obstructive pulmonary disease (COPD) Current Visit: Yes Status: Acute Assessment and plan: Patient with mild acute exacerbation of COPD. Lungs are clear and diminished in posterior padgett. Patient does not require steroids at this time. There is no leukocytosis or fever/chills. Patient is at her baseline oxygen use of 3 L by nasal cannula.. May titrate as needed to maintain sats greater than 92%. Continue telemetry. Continue DuoNeb scheduled and when necessary. Continue Symbicort. Continue Singulair Continue to monitor labs and condition. (2) Atypical chest pain Current Visit: Yes Status: Chronic Assessment and plan: Patient had atypical chest pain on presentation to the emergency department. CTA was negative for PE. Chest x-ray showed stable, mild cardiomegaly with mild pulmonary vascular congestion. Troponins were negative 3. Patient has continued to deny chest pain since arrival. Patient with COPD, acute exacerbation this time. patient appears to be better than her normal exacerbation. Continue telemetry Continue current treatment plan. Patient has pain medication ordered. May give per schedule. (3) CAD (coronary artery disease) Current Visit: Yes Status: Chronic Assessment and plan: Patient denies chest pain. Patient with uncontrolled diabetes, obesity. Continue home dose of metolazone, amlodipine, metoprolol XL, TriCor, Plavix, aspirin, and Lipitor. Continue telemetry Qualifiers: Coronary Disease-Associated Artery/Lesion type: [place] artery [place] vs. transplanted heart: [place] heart Associated angina: with stable angina Qualified Code(s): I25.118 - Atherosclerotic heart disease of [place] coronary artery with other forms of angina pectoris (4) Cellulitis of both lower extremities Current Visit: Yes Status: Chronic Assessment and plan: Patient reports recurrent, intermittent cellulitis to bilateral lower extremities. She is currently being treated with IV vancomycin. Right lower extremity appears to be more red today. Patient reports increased redness as well as increased pain. Continue treatment. Wound care consult placed for tomorrow. Patient reports that her dog scratched her leg which started the inflammation and pain. Continue current pain medication regimen Continue IV vancomycin (5) HLD (hyperlipidemia) Current Visit: Yes Status: Chronic Assessment and plan: Chronic. Continue to encourage lifestyle modifications, continue home dose of Lipitor 40 mg by mouth daily. Qualifiers: Hyperlipidemia type: pure hypercholesterolemia Qualified Code(s): E78.00 - Pure hypercholesterolemia, unspecified; E78.0 - Pure hypercholesterolemia (6) HTN (hypertension) Current Visit: No Status: Chronic Assessment and plan: Chronic. Well controlled. Continue home medications. Qualifiers: Hypertension type: essential hypertension Qualified Code(s): I10 - Essential (primary) hypertension (7) Hypokalemia Current Visit: Yes Status: Acute Assessment and plan: Patient will be given another K rider today for potassium of 2.9. Will recheck labs this afternoon. Patient is also getting by mouth supplementation, will hold tonight's dose.. (8) Hypothyroidism Current Visit: Yes Status: Chronic Assessment and plan: Chronic. Continue home dose of levothyroxine. Qualifiers: Hypothyroidism type: acquired Qualified Code(s): E03.9 - Hypothyroidism, unspecified (9) Morbid obesity with BMI of 45.0-49.9, adult Current Visit: Yes Status: Chronic Assessment and plan: Chronic. Continue to encourage lifestyle modifications. (10) Type 2 diabetes mellitus Current Visit: Yes Status: Chronic Assessment and plan: A1c is 9.4%. Continue sliding scale insulin at medium dose, Accu-Cheks before meals at bedtime, diabetic diet. 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 Patient up to chair. Encourage ambulation as needed. - Time Spent With Patient less than 15 minutes - Subjective Interval history: This was seen and assessed at 1745 AM. She is alert, awake, but drowsy and pleasant. States that she is not feeling well today due to bilateral lower extremity redness and pain. Explained to patient that that is not possible at this time and she should continue on her home medication as well as IV antibiotics. She does not appear to be in any distress denies shortness of breath, chest pain, cough. She denies any nausea, vomiting, diarrhea, abdominal pain, dizziness or vision changes. Patient is aware that she is not going to be discharged today in verbalized understanding. - Constitutional Vitals: Temp Pulse Resp BP Pulse Ox 97.7 F 89 18 113/76 88 10/27/17 11:34 10/27/17 11:34 10/27/17 16:16 10/27/17 11:34 10/27/17 16:16 General appearance: Present: cooperative, A&O X 3, morbidly obese, pleasant, no acute distress, answers questions appropriately - Head Head exam: Present: atraumatic, normal inspection, normocephalic - Eye Eye exam: Present: normal appearance, conjuntiva pink, sclera anicteric - Neck Neck exam general surgery: Present: supple, trachea midline. Absent: lymphadenopathy, tenderness - Respiratory Respiratory exam: Present: decreased breath sounds, CTAB. Absent: accessory muscle use, chest wall tenderness, rales, respiratory distress, rhonchi, wheezes - Cardiovascular Cardiovascular exam: Present: RRR, +S1, +S2. Absent: diastolic murmur, gallop, rubs, systolic murmur - GI/Abdominal GI/Abdominal exam: Present: normal bowel sounds, soft. Absent: distended, hepatomegaly, tenderness - Extremities Exam Extremities exam: Present: pedal edema, tenderness, warm, radial pulses palpable and symmetrical. Absent: calf tenderness, cyanotic, normal capillary refill, normal inspection - Neurological Exam Neurological exam: Present: alert, oriented X3, no focal deficits. Absent: facial droop, speech deficit - Skin Skin exam: Present: dry, intact, normal color, warm. Absent: rash Internal Medicine: Result - Labs CBC & Chem 7: 10/27/17 05:25 10/27/17 09:48 Labs: Short CBC 10/27/17 Range/Units 05:25 WBC 9.5 (4.3-11.1) K/mcL Hgb 9.6 L (11.5-15.4) g/dL Hct 32.5 L (35.3-44.9) % Plt Count 228 (140-400) K/mcL Neutrophils # 5.5 (1.6-8.9) K/mcL BMP 10/27/17 10/27/17 05:25 09:48 Sodium 137 Potassium 2.9 L D 2.9 L Chloride 93 L Carbon Dioxide 33 H BUN 26 H Creatinine 0.89 Glucose 245 H Calcium 8.8 Consult Discharge Plan - Plan Referrals: NONE,PCP [Primary Care Provider] -
[2017-10-27] MEDS ORDERED: 0.9 % Sodium Chloride 250 ML ONE (20:09)
[2017-10-27] MEDS: ARIPiprazole 10 MG TABLET PO SCH (21:13)
[2017-10-27] MEDS: clonazePAM 0.5 MG TABLET PO PRN (21:14)
[2017-10-27] MEDS: tiZANidine 4 MG TABLET PO PRN (21:55)
[2017-10-28] MEDS: Ipratropium/Albuterol Neb 3 ML IH SCH ×6 (00:11→20:50)
[2017-10-28] MEDS: traMADol 50 MG TABLET PO PRN ×4 (02:24→20:06)
[2017-10-28] MEDS: *HR* HYDROcodone/Acet 5/325 mg TABLET PO PRN ×2 (04:03→12:35)
[2017-10-28] MEDS ORDERED: *HR* HYDROcodone/Acet 5/325 mg TABLET PO ONE (05:08)
[2017-10-28 05:12] LABS: Basophils # 0.1 K/mcL (0.0-0.2); Basophils % 0.6 %; Eosinophils # 0.2 K/mcL (0.0-0.6); Eosinophils % 2.1 %; Hematocrit 31.6 % (35.3-44.9); Hemoglobin 9.4 g/dL (11.5-15.4); Immature Granulocytes % 2.2 % (0-4); Lymphocytes # 2.4 K/mcL (0.6-4.6); Lymphocytes % 28.8 %; Mean Corpuscular HGB Conc 29.7 g/dL (31.6-35.5); Mean Corpuscular Hemoglobin 25.1 pg (28.0-33.3); Mean Corpuscular Volume 84.5 fL (83.0-100.0); Mean Platelet Volume 11.7 fL (9.4-12.4); Monocytes # 0.5 K/mcL (0.0-1.3); Monocytes % 5.7 %; Neutrophils # 5.1 K/mcL (1.6-8.9); Nucleated Red Blood Cells 0.5 /100 WBC (0); Platelet Count 236 K/mcL (140-400); Red Blood Count 3.74 M/mcL (3.82-4.97); Red Cell Distribution Width 15.9 % (11.5-14.5); Segmented Neutrophils % 60.6 %
[2017-10-28] MEDS: *HR* Enoxaparin 40 MG/0.4 ML SYRINGE SQ SCH (06:30)
[2017-10-28] MEDS: Insulin LISPRO 300 UNITS/3 ML VIAL SQ SCH ×4 (08:21→22:29)
[2017-10-28] MEDS: Magnesium Oxide 400 MG TABLET PO SCH (08:22)
[2017-10-28] MEDS: amLODIPine 5 MG TABLET PO SCH (08:22)
[2017-10-28] MEDS: Insulin DETEMIR 100 UNIT/ML X5UNITS SQ SCH ×2 (08:22→22:30)
[2017-10-28] MEDS: Bumetanide 1 MG TABLET PO SCH ×2 (08:23→22:27)
[2017-10-28] MEDS: Metoprolol XL (24 HR) Succ 50 MG TAB.ER.24H PO SCH (08:23)
[2017-10-28] MEDS: Isosorbide MONOnitrate (24 HR) 60 MG TAB.ER.24H PO SCH (08:23)
[2017-10-28] MEDS: Cholecalciferol (D-3) 1,000 UNIT TABLET PO SCH (08:23)
[2017-10-28] MEDS: Aspirin 81 MG TAB.CHEW PO SCH (08:23)
[2017-10-28] MEDS: Fenofibrate 54 MG TABLET PO SCH (08:23)
[2017-10-28] MEDS: Gabapentin 400 MG CAPSULE PO SCH ×4 (08:23→20:06)
[2017-10-28] MEDS: FISH OIL PO SCH (08:24)
[2017-10-28] MEDS: OMEGA PO SCH (08:24)
[2017-10-28] MEDS: (Roflumilast [Daliresp] 500 MCG) PO SCH (08:24)
[2017-10-28] MEDS: FATTY ACIDS PO SCH (08:24)
[2017-10-28 09:42] LABS: % Iron Saturation 14 % (15-50); BUN/Creatinine Ratio 25 (6-26); Blood Urea Nitrogen 22 mg/dL (8-23); Calcium 8.9 mg/dL (8.6-10.3); Carbon Dioxide 29 mEq/L (23-29); Chloride 95 mEq/L (98-107); Glucose 357 mg/dL (70-105); Iron 74 mcg/dL (50-170); Magnesium 1.8 mg/dL (1.6-2.6); Osmolality,Calculated 298 (280-300); Potassium 3.7 mEq/L (3.5-5.1); Sodium 135 mEq/L (136-145); Transferrin 381 mg/dL (203-362); eGFR For African Americans > 60 (> 60); eGFR For Non-African Americans > 60 (> 60)
[2017-10-28 12:07] LABS: Hemoglobin A1C 9.7 %
[2017-10-28] MEDS: Budesonide/Formoterol 160/4.5 MDI IH SCH ×2 (12:19→20:50)
[2017-10-28] MEDS: tiZANidine 4 MG TABLET PO PRN (13:57)
[2017-10-28] MEDS: Miconazole 2% ointment 114 GM TUBE TP SCH ×2 (16:12→22:30)
--- NOTE | 2017-10-28 17:20 | Internal Med Progress Note ---
Date of Encounter: 10/28/17 Time of Encounter: 09:30 - Assessment and plan (1) Acute exacerbation of chronic obstructive pulmonary disease (COPD) Current Visit: Yes Status: Acute Assessment and plan: Patient with mild acute exacerbation of COPD. Lungs are clear and diminished in posterior padgett. No wheezing or respiratory distress noted. No rales no rhonchi. Patient does not require steroids at this time. There is no leukocytosis or fever/chills. Patient is now on 2 L O2 via nasal cannula. May titrate as needed to maintain sats greater than 92%. Continue telemetry. Continue DuoNeb scheduled and when necessary. Continue Symbicort. Continue Singulair Continue to monitor labs and condition. (2) Atypical chest pain Current Visit: Yes Status: Chronic Assessment and plan: Denies. Continue telemetry Continue current treatment plan. Patient has pain medication ordered. May give per schedule. (3) CAD (coronary artery disease) Current Visit: Yes Status: Chronic Assessment and plan: Patient denies chest pain. Patient with uncontrolled diabetes, obesity. Continue home dose of metolazone, amlodipine, metoprolol XL, TriCor, Plavix, aspirin, and Lipitor. Continue telemetry Qualifiers: Coronary Disease-Associated Artery/Lesion type: [place] artery [place] vs. transplanted heart: [place] heart Associated angina: with stable angina Qualified Code(s): I25.118 - Atherosclerotic heart disease of [place] coronary artery with other forms of angina pectoris (4) Cellulitis of both lower extremities Current Visit: Yes Status: Chronic Assessment and plan: Right lower extremity cellulitis has become significantly worse today. Patient reports increased pain again today. Medication has been changed to Percocet 5/325 mg one tablet by mouth every 6 hours. Infectious disease consult placed today. I appreciate recommendations for antibiotic changes if necessary. I spoke with infectious disease physician who said he would review chart later had if needed. Continue treatment. Wound care consult placed, unable to locate any documentation the patient was seen today. Continue IV vancomycin (5) HLD (hyperlipidemia) Current Visit: Yes Status: Chronic Assessment and plan: Chronic. Continue to encourage lifestyle modifications, continue statin. Qualifiers: Hyperlipidemia type: pure hypercholesterolemia Qualified Code(s): E78.00 - Pure hypercholesterolemia, unspecified; E78.0 - Pure hypercholesterolemia (6) HTN (hypertension) Current Visit: No Status: Chronic Assessment and plan: Chronic. Well controlled. Continue home medications. Qualifiers: Hypertension type: essential hypertension Qualified Code(s): I10 - Essential (primary) hypertension (7) Hypokalemia Current Visit: Yes Status: Acute Assessment and plan: Resolved. Continue to monitor. (8) Hypothyroidism Current Visit: Yes Status: Chronic Assessment and plan: Chronic. Continue home medication Qualifiers: Hypothyroidism type: acquired Qualified Code(s): E03.9 - Hypothyroidism, unspecified (9) Morbid obesity with BMI of 45.0-49.9, adult Current Visit: Yes Status: Chronic Assessment and plan: Chronic. Continue to encourage lifestyle modifications. (10) Type 2 diabetes mellitus Current Visit: Yes Status: Chronic Assessment and plan: Uncontrolled. A1c is 9.7%. Continue sliding scale insulin at medium dose, Accu-Cheks before meals at bedtime, diabetic diet. 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 Patient up to chair. She has been ambulatory. - Time Spent With Patient less than 15 minutes - Subjective Interval history: This was seen and assessed at 0930 AM. She is alert, awake, pleasant. States that she is not feeling well today due to bilateral lower extremity redness and pain, states that she feels achey. She does not appear to be in any distress denies shortness of breath, chest pain, cough. She denies any nausea, vomiting , diarrhea, abdominal pain, dizziness or vision changes. Patient is aware that she is not going to be discharged today in verbalized understanding. Pt reports that she has not had a bowel movement and I ordered mag citrate and enemas if no results from mag citrate. - Constitutional Vitals: Temp Pulse Resp BP Pulse Ox 98.0 F 82 16 110/73 96 10/28/17 11:55 10/28/17 11:55 10/28/17 16:43 10/28/17 11:55 10/28/17 16:43 General appearance: Present: cooperative, A&O X 3, morbidly obese, pleasant, no acute distress, answers questions appropriately - Head Head exam: Present: atraumatic, normal inspection, normocephalic - Eye Eye exam: Present: normal appearance, conjuntiva pink, sclera anicteric - Neck Neck exam general surgery: Present: supple, trachea midline. Absent: lymphadenopathy, tenderness - Respiratory Respiratory exam: Present: decreased breath sounds, CTAB. Absent: accessory muscle use, rales, rhonchi, wheezes - Cardiovascular Cardiovascular exam: Present: RRR, +S1, +S2. Absent: diastolic murmur, gallop, rubs, systolic murmur - GI/Abdominal GI/Abdominal exam: Present: normal bowel sounds, soft. Absent: distended, tenderness - Extremities Exam Extremities exam: Present: normal capillary refill, pedal edema, tenderness, warm, radial pulses palpable and symmetrical. Absent: calf tenderness, cyanotic - Neurological Exam Neurological exam: Present: CN II-XII intact, oriented X3, no focal deficits. Absent: pronater drift, facial droop, speech deficit - Skin Skin exam: Present: dry, intact, normal color, warm. Absent: rash Internal Medicine: Result - Labs CBC & Chem 7: 10/28/17 04:00 10/28/17 04:00 Consult Discharge Plan - Plan Referrals: NONE,PCP [Primary Care Provider] -
[2017-10-28] MEDS: *HR* OxyCODONE/APAP 5/325 TABLET PO PRN (17:24)
[2017-10-28] MEDS: ARIPiprazole 10 MG TABLET PO SCH (22:27)
[2017-10-29] MEDS: Ipratropium/Albuterol Neb 3 ML IH SCH ×7 (00:12→23:22)
[2017-10-29] MEDS: *HR* OxyCODONE/APAP 5/325 TABLET PO PRN ×4 (00:15→19:55)
[2017-10-29] MEDS: Gabapentin 400 MG CAPSULE PO SCH ×5 (00:16→19:55)
[2017-10-29] MEDS: *HR* Enoxaparin 40 MG/0.4 ML SYRINGE SQ SCH (06:27)
[2017-10-29] MEDS: Budesonide/Formoterol 160/4.5 MDI IH SCH ×2 (07:49→20:57)
[2017-10-29] MEDS: Insulin LISPRO 300 UNITS/3 ML VIAL SQ SCH ×4 (08:39→20:56)
[2017-10-29] MEDS: Insulin DETEMIR 100 UNIT/ML X5UNITS SQ SCH ×2 (08:39→20:55)
[2017-10-29] MEDS: Magnesium Oxide 400 MG TABLET PO SCH (08:40)
[2017-10-29] MEDS: amLODIPine 5 MG TABLET PO SCH (08:41)
[2017-10-29] MEDS: Aspirin 81 MG TAB.CHEW PO SCH (08:41)
[2017-10-29] MEDS: Cholecalciferol (D-3) 1,000 UNIT TABLET PO SCH (08:41)
[2017-10-29] MEDS: Isosorbide MONOnitrate (24 HR) 60 MG TAB.ER.24H PO SCH (08:42)
[2017-10-29] MEDS: Bumetanide 1 MG TABLET PO SCH ×2 (08:42→20:54)
[2017-10-29] MEDS: Fenofibrate 54 MG TABLET PO SCH (08:42)
[2017-10-29] MEDS: Metoprolol XL (24 HR) Succ 50 MG TAB.ER.24H PO SCH (08:43)
[2017-10-29] MEDS: FISH OIL PO SCH (08:45)
[2017-10-29] MEDS: FATTY ACIDS PO SCH (08:45)
[2017-10-29] MEDS: Miconazole 2% ointment 114 GM TUBE TP SCH ×2 (08:45→21:02)
[2017-10-29] MEDS: (Roflumilast [Daliresp] 500 MCG) PO SCH (08:45)
[2017-10-29] MEDS: OMEGA PO SCH (08:45)
[2017-10-29 10:37] LABS: BUN/Creatinine Ratio 26 (6-26); Blood Urea Nitrogen 25 mg/dL (8-23); Calcium 8.9 mg/dL (8.6-10.3); Carbon Dioxide 33 mEq/L (23-29); Chloride 95 mEq/L (98-107); Glucose 355 mg/dL (70-105); Osmolality,Calculated 299 (280-300); Potassium 3.6 mEq/L (3.5-5.1); Sodium 135 mEq/L (136-145); eGFR For African Americans > 60 (> 60); eGFR For Non-African Americans 59 (> 60)
[2017-10-29 10:48] LABS: Basophils # 0.1 K/mcL (0.0-0.2); Basophils % 0.7 %; Eosinophils # 0.2 K/mcL (0.0-0.6); Eosinophils % 2.5 %; Hematocrit 31.2 % (35.3-44.9); Hemoglobin 9.2 g/dL (11.5-15.4); Immature Granulocytes % 1.8 % (0-4); Lymphocytes # 2.1 K/mcL (0.6-4.6); Lymphocytes % 25.9 %; Mean Corpuscular HGB Conc 29.5 g/dL (31.6-35.5); Mean Corpuscular Hemoglobin 25.3 pg (28.0-33.3); Mean Corpuscular Volume 85.7 fL (83.0-100.0); Mean Platelet Volume 11.5 fL (9.4-12.4); Monocytes # 0.4 K/mcL (0.0-1.3); Monocytes % 5.2 %; Neutrophils # 5.2 K/mcL (1.6-8.9); Nucleated Red Blood Cells 0.4 /100 WBC (0); Platelet Count 233 K/mcL (140-400); Red Blood Count 3.64 M/mcL (3.82-4.97); Segmented Neutrophils % 63.9 %
[2017-10-29] MEDS: traMADol 50 MG TABLET PO PRN (10:51)
--- NOTE | 2017-10-29 18:06 | Internal Med Progress Note ---
Date of Encounter: 10/29/17 Time of Encounter: 10:15 - Assessment and plan (1) Acute exacerbation of chronic obstructive pulmonary disease (COPD) Current Visit: Yes Status: Acute Assessment and plan: Patient with mild acute exacerbation of COPD. Lungs with faint expiratory wheezing in upper anterior lung pad[place], diminished throughout others. No respiratory distress noted. No rales no rhonchi. Patient does not require steroids at this time. There is no leukocytosis or fever/chills. Patient is now on 2 L O2 via nasal cannula. May titrate as needed to maintain sats greater than 92%. Continue telemetry. Continue DuoNeb scheduled and when necessary. Continue Symbicort. Continue Singulair Continue to monitor labs and condition. (2) CAD (coronary artery disease) Current Visit: Yes Status: Chronic Assessment and plan: Patient denies chest pain. Patient with uncontrolled diabetes, obesity. Continue home dose of metolazone, amlodipine, metoprolol XL, TriCor, Plavix, aspirin, and Lipitor. Continue telemetry Qualifiers: Coronary Disease-Associated Artery/Lesion type: [place] artery [place] vs. transplanted heart: [place] heart Associated angina: with stable angina Qualified Code(s): I25.118 - Atherosclerotic heart disease of [place] coronary artery with other forms of angina pectoris (3) Cellulitis of both lower extremities Current Visit: Yes Status: Chronic Assessment and plan: Right lower extremity cellulitis has improved somewhat today. Pt has kept BLE elevated. Patient reports improved pain today. Infectious disease consult placed today. I appreciate recommendations for antibiotic changes if necessary. I spoke with infectious disease physician who said he would review chart later had if needed. Continue treatment. Wound care consult placed, unable to locate any documentation the patient was seen today. Continue IV vancomycin Continue percocet 5/325. (4) HLD (hyperlipidemia) Current Visit: Yes Status: Chronic Assessment and plan: Chronic. Continue to encourage lifestyle modifications, continue statin. Qualifiers: Hyperlipidemia type: pure hypercholesterolemia Qualified Code(s): E78.00 - Pure hypercholesterolemia, unspecified; E78.0 - Pure hypercholesterolemia (5) HTN (hypertension) Current Visit: No Status: Chronic Assessment and plan: Chronic. Well controlled. Continue home medications. Qualifiers: Hypertension type: essential hypertension Qualified Code(s): I10 - Essential (primary) hypertension (6) Hypothyroidism Current Visit: Yes Status: Chronic Assessment and plan: Chronic. Continue home medication Qualifiers: Hypothyroidism type: acquired Qualified Code(s): E03.9 - Hypothyroidism, unspecified (7) Morbid obesity with BMI of 45.0-49.9, adult Current Visit: Yes Status: Chronic Assessment and plan: Chronic. Continue to encourage lifestyle modifications. (8) Type 2 diabetes mellitus Current Visit: Yes Status: Chronic Assessment and plan: Continue sliding scale insulin at medium dose, Accu-Cheks before meals at bedtime, diabetic diet. 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 mellitus complication status: with neurologic complications Diabetes mellitus complication detail: with polyneuropathy Diabetes mellitus custodial insulin use: with custodial use Qualified Code(s): E11.42 - Type 2 diabetes mellitus with diabetic polyneuropathy; Z79.4 - custodial (current) use of insulin; Z79.4 - superintendent container terminal (current) use of insulin; Z79.4 - custodial ( current) use of insulin; Z79.4 - custodial (current) use of insulin (9) DVT prophylaxis Current Visit: Yes Status: Acute Assessment and plan: Lovenox subcutaneous. Patient up to chair. She has been ambulatory. - Time Spent With Patient less than 15 minutes - Subjective Interval history: This was seen and assessed at 1015 AM. She is alert, awake, pleasant and sitting on sofa on the other side of her room. She has taken a shower and put on make up and states that she is feeling some better. She does not appear to be in any distress denies shortness of breath, chest pain, cough. She denies any nausea, vomiting, diarrhea, abdominal pain, dizziness or vision changes. She still reports minimal relief from mag citrate, will do enemas tonight . - Constitutional Vitals: Temp Pulse Resp BP Pulse Ox 97.2 F L 86 18 107/72 93 10/29/17 15:57 10/29/17 15:57 10/29/17 16:29 10/29/17 15:57 10/29/17 16:29 General appearance: Present: cooperative, A&O X 3, morbidly obese, pleasant, no acute distress, answers questions appropriately - Head Head exam: Present: atraumatic, normal inspection, normocephalic - Eye Eye exam: Present: normal appearance, conjuntiva pink, sclera anicteric - Neck Neck exam general surgery: Present: supple, trachea midline. Absent: lymphadenopathy - Respiratory Respiratory exam: Present: CTAB. Absent: accessory muscle use, rales, rhonchi, wheezes - Cardiovascular Cardiovascular exam: Present: RRR, +S1, +S2. Absent: diastolic murmur, gallop, rubs, systolic murmur - GI/Abdominal GI/Abdominal exam: Present: normal bowel sounds, soft. Absent: distended, hernia, tenderness - Extremities Exam Extremities exam: Present: pedal edema, tenderness, warm, radial pulses palpable and symmetrical. Absent: calf tenderness, cyanotic, normal capillary refill, normal inspection - Neurological Exam Neurological exam: Present: alert, oriented X3, no focal deficits. Absent: facial droop, speech deficit - Skin Skin exam: Present: dry, intact, normal color, warm. Absent: rash Internal Medicine: Result - Labs CBC & Chem 7: 10/29/17 10:00 10/29/17 10:00 Labs: Short CBC 10/29/17 Range/Units 10:00 WBC 8.1 (4.3-11.1) K/mcL Hgb 9.2 L (11.5-15.4) g/dL Hct 31.2 L (35.3-44.9) % Plt Count 233 (140-400) K/mcL Neutrophils # 5.2 (1.6-8.9) K/mcL BMP 10/29/17 10:00 Sodium 135 L Potassium 3.6 Chloride 95 L Carbon Dioxide 33 H BUN 25 H Creatinine 0.97 Glucose 355 H Calcium 8.9 Consult Discharge Plan - Plan Referrals: NONE,PCP [Primary Care Provider] -
[2017-10-29] MEDS: ARIPiprazole 10 MG TABLET PO SCH (20:54)
[2017-10-29] MEDS: clonazePAM 0.5 MG TABLET PO PRN (20:54)
[2017-10-29 22:37] LABS: Bilirubin,Urine Negative (Negative); Blood,Urine Negative (Negative); Clarity,Urine Clear (Clear); Color,Urine Yellow (Yellow); Glucose,Urine (UA) >=1000 mg/dL (Normal); Ketones,Urine Negative (Negative); Leukocyte Esterase,Urine Negative (Negative); Nitrite,Urine Negative (Negative); PH,Urine 7.5 pH Units (5.0-8.0); Protein,Urine Negative (Neg-Trace); Specific Gravity,Urine 1.026 (1.010-1.025); Urobilinogen,Urine Normal (Normal)
[2017-10-30] MEDS: traMADol 50 MG TABLET PO PRN ×3 (00:05→20:03)
[2017-10-30] MEDS: tiZANidine 4 MG TABLET PO PRN (00:05)
[2017-10-30] MEDS: Gabapentin 400 MG CAPSULE PO SCH ×5 (00:07→20:02)
[2017-10-30] MEDS: Ondansetron ODT 4 MG TAB.RAPDIS SL PRN (02:10)
[2017-10-30] MEDS: *HR* OxyCODONE/APAP 5/325 TABLET PO PRN ×4 (02:10→21:27)
[2017-10-30] MEDS: Ipratropium/Albuterol Neb 3 ML IH SCH ×6 (04:16→23:52)
[2017-10-30] MEDS: *HR* Enoxaparin 40 MG/0.4 ML SYRINGE SQ SCH (05:59)
[2017-10-30] MEDS: Budesonide/Formoterol 160/4.5 MDI IH SCH ×2 (07:49→19:58)
[2017-10-30] MEDS: Cholecalciferol (D-3) 1,000 UNIT TABLET PO SCH (07:55)
[2017-10-30] MEDS: OMEGA PO SCH (07:56)
[2017-10-30] MEDS: FISH OIL PO SCH (07:56)
[2017-10-30] MEDS: (Roflumilast [Daliresp] 500 MCG) PO SCH (07:56)
[2017-10-30] MEDS: FATTY ACIDS PO SCH (07:56)
[2017-10-30] MEDS: Isosorbide MONOnitrate (24 HR) 60 MG TAB.ER.24H PO SCH (07:57)
[2017-10-30] MEDS: Fenofibrate 54 MG TABLET PO SCH (07:57)
[2017-10-30] MEDS: Bumetanide 1 MG TABLET PO SCH ×2 (07:57→21:26)
[2017-10-30] MEDS: Metoprolol XL (24 HR) Succ 50 MG TAB.ER.24H PO SCH (07:57)
[2017-10-30] MEDS: Magnesium Oxide 400 MG TABLET PO SCH (07:58)
[2017-10-30] MEDS: amLODIPine 5 MG TABLET PO SCH (07:58)
[2017-10-30] MEDS: Aspirin 81 MG TAB.CHEW PO SCH (07:58)
[2017-10-30] MEDS: Insulin LISPRO 300 UNITS/3 ML VIAL SQ SCH ×4 (07:58→21:29)
[2017-10-30 08:26] LABS: Basophils # 0.1 K/mcL (0.0-0.2); Basophils % 0.9 %; Eosinophils # 0.2 K/mcL (0.0-0.6); Eosinophils % 2.4 %; Hematocrit 35.1 % (35.3-44.9); Hemoglobin 10.2 g/dL (11.5-15.4); Lymphocytes # 3.3 K/mcL (0.6-4.6); Lymphocytes % 34.8 %; Mean Corpuscular HGB Conc 29.1 g/dL (31.6-35.5); Mean Corpuscular Hemoglobin 24.9 pg (28.0-33.3); Mean Corpuscular Volume 85.6 fL (83.0-100.0); Mean Platelet Volume 11.5 fL (9.4-12.4); Monocytes # 0.5 K/mcL (0.0-1.3); Monocytes % 5.6 %; Neutrophils # 5.2 K/mcL (1.6-8.9); Nucleated Red Blood Cells 0.9 /100 WBC (0); Platelet Count 285 K/mcL (140-400); Red Cell Distribution Width 16.3 % (11.5-14.5); Segmented Neutrophils % 54.3 %
[2017-10-30] MEDS: Insulin DETEMIR 100 UNIT/ML X5UNITS SQ SCH ×2 (08:26→21:40)
[2017-10-30 08:40] LABS: BUN/Creatinine Ratio 26 (6-26); Blood Urea Nitrogen 25 mg/dL (8-23); Carbon Dioxide 26 mEq/L (23-29); Chloride 96 mEq/L (98-107); Glucose 205 mg/dL (70-105); Osmolality,Calculated 294 (280-300); Potassium 3.6 mEq/L (3.5-5.1); Sodium 137 mEq/L (136-145); eGFR For African Americans > 60 (> 60); eGFR For Non-African Americans 59 (> 60)
[2017-10-30] MEDS: Miconazole 2% ointment 114 GM TUBE TP SCH ×2 (10:00→21:28)
[2017-10-30] MEDS ORDERED: Fluconazole 100 MG TABLET PO ONE (11:24)
--- NOTE | 2017-10-30 12:44 | Internal Med Progress Note ---
Date of Encounter: 10/30/17 Time of Encounter: 09:00 - Assessment and plan (1) Acute exacerbation of chronic obstructive pulmonary disease (COPD) Current Visit: Yes Status: Acute Assessment and plan: Patient was admitted with mild acute exacerbation of COPD. Lungs with faint expiratory wheezing in upper anterior lung [place] with strongly forced exhalation, diminished throughout others. No respiratory distress noted. No rales no rhonchi. Patient does not require steroids at this time. There is no leukocytosis or fever/chills. Patient is now on 2 L O2 via nasal cannula which is her baseline. Pt has returned to baseline, from respiratory standpoint, pt is ready for discharge tomorrow. Continue telemetry. Continue DuoNeb scheduled and when necessary. Continue Symbicort. Continue Singulair Continue to monitor labs and condition. (2) CAD (coronary artery disease) Current Visit: Yes Status: Chronic Assessment and plan: Patient denies chest pain. Patient with uncontrolled diabetes, obesity. Continue home dose of metolazone, amlodipine, metoprolol XL, TriCor, Plavix, aspirin, and Lipitor. Continue telemetry Qualifiers: Coronary Disease-Associated Artery/Lesion type: [place] artery [place] vs. transplanted heart: [place] heart Associated angina: with stable angina Qualified Code(s): I25.118 - Atherosclerotic heart disease of [place] coronary artery with other forms of angina pectoris (3) Cellulitis of both lower extremities Current Visit: Yes Status: Chronic Assessment and plan: Pt has kept BLE elevated and BLE appear to be improved. Suspect there is more of a vascular compenent to the swelling, redness, and pain. Vancomycin iv has been discontinued, Bactrim DS BID started. Continue Miconazole DAVID and CT abd/pelvis with runoff ordered for evaluation of BLE. . Continue percocet 5/325. (4) HLD (hyperlipidemia) Current Visit: Yes Status: Chronic Assessment and plan: Chronic. Continue to encourage lifestyle modifications, continue statin. Qualifiers: Hyperlipidemia type: pure hypercholesterolemia Qualified Code(s): E78.00 - Pure hypercholesterolemia, unspecified; E78.0 - Pure hypercholesterolemia (5) HTN (hypertension) Current Visit: No Status: Chronic Assessment and plan: Chronic. Well controlled. Continue home medications. Qualifiers: Hypertension type: essential hypertension Qualified Code(s): I10 - Essential (primary) hypertension (6) Hypothyroidism Current Visit: Yes Status: Chronic Assessment and plan: Chronic. Continue home medication. Recheck labs after no longer acutely ill Qualifiers: Hypothyroidism type: acquired Qualified Code(s): E03.9 - Hypothyroidism, unspecified (7) Morbid obesity with BMI of 45.0-49.9, adult Current Visit: Yes Status: Chronic Assessment and plan: Chronic. Continue to encourage lifestyle modifications, exercise, diet. (8) Type 2 diabetes mellitus Current Visit: Yes Status: Chronic Assessment and plan: Blood glucose uncontrolled, A1c 9.% Continue sliding scale insulin at medium dose, Accu-Cheks before meals at bedtime, diabetic diet. 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 mellitus complication status: with neurologic complications Diabetes mellitus complication detail: with polyneuropathy Diabetes mellitus chcf insulin use: with motor polarizer use Qualified Code(s): E11.42 - Type 2 diabetes mellitus with diabetic polyneuropathy; Z79.4 - building maintenance technician (current) use of insulin; Z79.4 - correction (current) use of insulin; Z79.4 - correction ( current) use of insulin; Z79.4 - building maintenance technician (current) use of insulin (9) DVT prophylaxis Current Visit: Yes Status: Acute Assessment and plan: Lovenox subcutaneous. Patient up to chair. She has been ambulatory. - Time Spent With Patient less than 15 minutes - Subjective Interval history: This was seen and assessed at 0900 AM. She is alert, awake, pleasant and sitting up on side of bed. Pt has been encouraged multiple times to keep legs elevated since redness and swelling is most likely vascular in nature. She has taken a shower and put on make up and states that she is feeling some better. She does not appear to be in any distress denies shortness of breath, chest pain , cough. She denies any nausea, vomiting, diarrhea, abdominal pain, dizziness or vision changes. She also reports adequate results from bowel regimen. - Constitutional Vitals: Temp Pulse Resp BP Pulse Ox 97.6 F 97 16 109/66 98 10/30/17 11:19 10/30/17 11:19 10/30/17 11:19 10/30/17 11:19 10/30/17 11:19 General appearance: Present: cooperative, A&O X 3, morbidly obese, pleasant, no acute distress, answers questions appropriately - Head Head exam: Present: atraumatic, normal inspection, normocephalic - Eye Eye exam: Present: normal appearance, conjuntiva pink, sclera anicteric - Neck Neck exam general surgery: Present: normal inspection, supple, trachea midline. Absent: lymphadenopathy - Respiratory Respiratory exam: Present: CTAB. Absent: accessory muscle use, chest wall tenderness, decreased breath sounds, rales, respiratory distress, rhonchi, wheezes - Cardiovascular Cardiovascular exam: Present: RRR, +S1, +S2. Absent: diastolic murmur, gallop, rubs, systolic murmur - GI/Abdominal GI/Abdominal exam: Present: hepatomegaly, normal bowel sounds, soft. Absent: distended, tenderness - Extremities Exam Extremities exam: Present: tenderness, warm, radial pulses palpable and symmetrical. Absent: calf tenderness, cyanotic, normal capillary refill, normal inspection, pedal edema - Neurological Exam Neurological exam: Present: alert, oriented X3, no focal deficits. Absent: facial droop, speech deficit - Skin Skin exam: Present: dry, intact, normal color, warm. Absent: rash Internal Medicine: Result - Labs CBC & Chem 7: 10/30/17 06:56 10/30/17 06:56 Labs: Short CBC 10/30/17 Range/Units 06:56 WBC 9.5 (4.3-11.1) K/mcL Hgb 10.2 L (11.5-15.4) g/dL Hct 35.1 L (35.3-44.9) % Plt Count 285 (140-400) K/mcL Neutrophils # 5.2 (1.6-8.9) K/mcL BMP 10/30/17 06:56 Sodium 137 Potassium 3.6 Chloride 96 L Carbon Dioxide 26 BUN 25 H Creatinine 0.97 Glucose 205 H Calcium 9.0 Urine 10/29/17 Range/Units 22:13 Urine Color Yellow (Yellow) Urine Clarity Clear (Clear) Urine pH 7.5 (5.0-8.0) pH Units Ur Specific [place] 1.026 H (1.010-1.025) Urine Protein Negative (Neg-Trace) mg/dL Urine Glucose (UA) >=1000 H (Normal) mg/dL Consult Discharge Plan - Plan Referrals: NONE,PCP [Primary Care Provider] -
[2017-10-30] MEDS: clonazePAM 0.5 MG TABLET PO PRN (17:36)
[2017-10-30] MEDS: ARIPiprazole 10 MG TABLET PO SCH (21:26)
[2017-10-30] MEDS: Sulfamethoxazole/Trimeth DS 1 EACH TABLET PO SCH (21:27)
[2017-10-31] MEDS: tiZANidine 4 MG TABLET PO PRN (01:52)
[2017-10-31] MEDS: traMADol 50 MG TABLET PO PRN ×2 (01:52→08:14)
[2017-10-31] MEDS: Gabapentin 400 MG CAPSULE PO SCH ×3 (01:52→12:56)
[2017-10-31] MEDS: Ipratropium/Albuterol Neb 3 ML IH SCH ×3 (03:16→12:13)
[2017-10-31] MEDS: *HR* OxyCODONE/APAP 5/325 TABLET PO PRN ×2 (05:18→12:56)
[2017-10-31] MEDS: *HR* Enoxaparin 40 MG/0.4 ML SYRINGE SQ SCH (05:18)
[2017-10-31] MEDS: Budesonide/Formoterol 160/4.5 MDI IH SCH (07:47)
[2017-10-31] MEDS: Insulin LISPRO 300 UNITS/3 ML VIAL SQ SCH ×2 (07:56→12:56)
[2017-10-31] MEDS: Aspirin 81 MG TAB.CHEW PO SCH (07:57)
[2017-10-31] MEDS: Bumetanide 1 MG TABLET PO SCH (07:58)
[2017-10-31] MEDS: Sulfamethoxazole/Trimeth DS 1 EACH TABLET PO SCH (07:58)
[2017-10-31] MEDS: amLODIPine 5 MG TABLET PO SCH (07:59)
[2017-10-31] MEDS: Isosorbide MONOnitrate (24 HR) 60 MG TAB.ER.24H PO SCH (07:59)
[2017-10-31] MEDS: Magnesium Oxide 400 MG TABLET PO SCH (07:59)
[2017-10-31] MEDS: OMEGA PO SCH (08:00)
[2017-10-31] MEDS: FATTY ACIDS PO SCH (08:00)
[2017-10-31] MEDS: (Roflumilast [Daliresp] 500 MCG) PO SCH (08:00)
[2017-10-31] MEDS: FISH OIL PO SCH (08:00)
[2017-10-31] MEDS: Fenofibrate 54 MG TABLET PO SCH (08:01)
[2017-10-31] MEDS: Cholecalciferol (D-3) 1,000 UNIT TABLET PO SCH (08:01)
[2017-10-31] MEDS: Metoprolol XL (24 HR) Succ 50 MG TAB.ER.24H PO SCH (08:01)
[2017-10-31] MEDS: Insulin DETEMIR 100 UNIT/ML X5UNITS SQ SCH (08:14)
[2017-10-31] MEDS: Miconazole 2% ointment 114 GM TUBE TP SCH (08:14)
[2017-10-31 09:56] LABS: BUN/Creatinine Ratio 24 (6-26); Blood Urea Nitrogen 22 mg/dL (8-23); Carbon Dioxide 28 mEq/L (23-29); Chloride 94 mEq/L (98-107); Glucose 251 mg/dL (70-105); Osmolality,Calculated 302 (280-300); Sodium 140 mEq/L (136-145); eGFR For African Americans > 60 (> 60); eGFR For Non-African Americans > 60 (> 60)
[2017-10-31 10:32] LABS: Basophils # 0.1 K/mcL (0.0-0.2); Basophils % 0.8 %; Eosinophils # 0.1 K/mcL (0.0-0.6); Eosinophils % 1.8 %; Hematocrit 33.5 % (35.3-44.9); Hemoglobin 9.8 g/dL (11.5-15.4); Lymphocytes # 2.6 K/mcL (0.6-4.6); Lymphocytes % 35.6 %; Mean Corpuscular HGB Conc 29.3 g/dL (31.6-35.5); Mean Corpuscular Volume 85.5 fL (83.0-100.0); Mean Platelet Volume 11.4 fL (9.4-12.4); Monocytes # 0.5 K/mcL (0.0-1.3); Monocytes % 6.2 %; Nucleated Red Blood Cells 0.4 /100 WBC (0); Platelet Count 253 K/mcL (140-400); Red Blood Count 3.92 M/mcL (3.82-4.97); Red Cell Distribution Width 16.5 % (11.5-14.5); Segmented Neutrophils % 53.6 %
--- NOTE | 2017-10-31 10:37 | Discharge Summary ---
- NOTES TO OUTPATIENT PROVIDER Notes to Outpatient Provider: Pt admitted for cellulitis, Vanco x 4 days, most likely vascular in nature. No abx for discharge. Orders not resulted at time of discharge: Pending orders 10/31/17 08:53 Complete Blood Count [HEME] AM 0400 Date of Encounter: 10/31/17 Time of Encounter: 09:50 - Discharge Diagnosis (1) Acute exacerbation of chronic obstructive pulmonary disease (COPD) Priority: Primary Status: Acute Comments: Improved. Pt is back at her baseline 02 use. Faint wheezing noted in sammy [place], pt still has wheezing audible with forced exhalation. No distress, no rales, ronchi. Pt will be started on steroid taper today on discharge. No leukocytosis, fever, chills. Continue home medications. (2) CAD (coronary artery disease) Priority: Secondary Status: Chronic Comments: No chest pain. Continue home medications. Qualifiers: Coronary Disease-Associated Artery/Lesion type: [place] artery [place] vs. transplanted heart: [place] heart Associated angina: with stable angina Qualified Code(s): I25.118 - Atherosclerotic heart disease of [place] coronary artery with other forms of angina pectoris (3) Cellulitis of both lower extremities Priority: Secondary Status: Resolved Comments: Abx have been stopped. Redness and swelling improve with elevation. Spoke with pts PCP and recommend stopping abx and they will consider consult with vascular after discharge and follow up. Pt with chronic vascular disease to BLE with up to 70% narrowing in mid portion right SFA, up to 50% on the left. Recommend follow up with vascular. Chest X-Ray 10/25/17 06:42 IMPRESSION: Stable mild cardiomegaly. Mild pulmonary vascular congestion. D/ / Rey Bradley MD / Rey Bradley MD Interpreting Provider: Rey Bradley MD Aorta w/Runoff CTA 10/30/17 12:37 IMPRESSION: 1. There is no aneurysm or dissection of the abdominal aorta. Heavy calcification is identified in the infrarenal abdominal aorta with up to 30% narrowing of the common iliac arteries. 2. Up 70% narrowing mid portion right SFA. Up to 50% narrowing on the left. 3. No significant calcification in the runoff vessels; however, the CT scanner appears to outrun the contrast bolus in the bilateral legs. 4. Incidental findings in the middle lobe nodular consolidation for which CT of the chest may be considered. Steatosis and edema/cellulitis of the anterior pelvic wall and bilateral lower extremities. D/ / 10/30/2017 14:39:01 Dann Lamb / josh Interpreting Provider: Dann Lamb Chest CT 10/31/17 09:13 IMPRESSION: A 4.5 mm pulmonary nodule seen within the right upper lobe. No acute cardiopulmonary process. RECOMMENDATIONS: Fleischner Society guidelines for follow-up and management of pulmonary nodules: Nodule size equals 4-6 mm In a low-risk patient, follow-up CT at 12 months; if unchanged, no further follow-up. In a high-risk patient, initial follow-up CT at 6-12 months then at 18-24 months if no change. Low risk patients include individuals with minimal or absent history of smoking and other known risk factors. High risk patients include individuals with a history of smoking or other known risk factors. Radiology 2005; [phone] D/ / 10/31/2017 10:14:03 Titi Philip MD / bcarter Interpreting Provider: Titi Philip MD (4) HLD (hyperlipidemia) Priority: Secondary Status: Chronic Comments: Csontinue home dose of statin, encourage lifestyle modifications. Qualifiers: Hyperlipidemia type: pure hypercholesterolemia Qualified Code(s): E78.00 - Pure hypercholesterolemia, unspecified; E78.0 - Pure hypercholesterolemia (5) HTN (hypertension) Priority: Secondary Status: Chronic Comments: Chronic. Well controlled, continue home medications. Qualifiers: Hypertension type: essential hypertension Qualified Code(s): I10 - Essential (primary) hypertension (6) Hypothyroidism Priority: Secondary Status: Chronic Comments: Chronic. Continue home medication. REcheck labs after discharge. Qualifiers: Hypothyroidism type: acquired Qualified Code(s): E03.9 - Hypothyroidism, unspecified (7) Morbid obesity with BMI of 45.0-49.9, adult Priority: Secondary Status: Chronic Comments: Chronic. Continue to encourage lifestyle modifications, exercise, and diet. (8) Type 2 diabetes mellitus Priority: Secondary Status: Chronic Comments: Uncontrolled diabetes, A1c is 9%. Continue home medications, Accu-Chek schedule at home. 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 mellitus complication status: with neurologic complications Diabetes mellitus complication detail: with polyneuropathy Diabetes mellitus half-way insulin use: with terminal supervisor use Qualified Code(s): E11.42 - Type 2 diabetes mellitus with diabetic polyneuropathy; Z79.4 - longterm (current) use of insulin; Z79.4 - longterm (current) use of insulin; Z79.4 - longterm ( current) use of insulin; Z79.4 - longterm (current) use of insulin (9) DVT prophylaxis Priority: Secondary Status: Acute Comments: Lovenox subcutaneous. Patient has been ambulatory. Hospital course: Ms. Lynch is a 62 year old female with multiple medical conditions and comorbidities. Patient was admitted for recurrent bilateral lower extremity cellulitis. She was treated for several days with vancomycin. With continued elevation of legs, condition improved. Antibiotics were stopped. Patient had CT of the aorta with runoff revealing vascular occlusions. Recommended patient follow-up with vascular surgery, unit secretaries attempting to get an outpatient appointment. Patient also admitted with acute exacerbation of COPD, patient was ready much at her baseline O2 demand and baseline presentation. She had no leukocytosis, fever, chills. Patient with wheezing today, she remained stable, steroid taper was called into her pharmacy. Recent pneumonia diagnosis discharged on October 20. CTA of the aorta revealed possible lung consolidation, CTA chest showed 4.5 mm pulmonary nodule in the right upper lobe , she will need to follow-up with primary care and have follow-up CT at 6-12 months. Patient is stable and appropriate for discharge. Discharge discussed with: patient - Time Spent with Patient Total time spent providing and/or coordinating discharge services: Less than 30 minutes - Discharge Medications Prescriptions: predniSONE [PredniSONE] 10 mg PO DAILY #31 tablet Home Medications: Budesonide/Formoterol 160/4.5 [Symbicort] 2 puff IH BIDR 04/21/15 [History] Levothyroxine [Synthroid] 100 mcg PO QAM 04/21/15 [History] Tiotropium [Spiriva] 18 mcg IH QAM 04/21/15 [History] metFORMIN [Glucophage] 1,000 mg PO BID 04/21/15 [History] Atorvastatin Calcium [Lipitor] 40 mg PO DAILY 02/04/16 [History] Montelukast [Singulair] 10 mg PO HS 02/04/16 [History] Oxygen 2 l NS AD PRN 03/17/16 [History] Insulin Glargine [Lantus] 80 unit SQ QPM 03/25/16 [History] Insulin Glargine [Lantus] 90 unit SQ QAM 03/25/16 [History] Albuterol Sulfate [Albuterol Inhaler] 2 puff IH Q4HR PRN 05/01/16 [History] Citalopram Hydrobromide [Citalopram HBr] 40 mg PO DAILY 05/01/16 [History] Raloxifene [Evista] 60 mg PO DAILY 05/01/16 [History] Aripiprazole [Abilify] 10 mg PO HS tablet 05/03/16 [Rx] Fenofibrate Nanocrystallized [Tricor] 145 mg PO DAILY 06/15/16 [History] Clopidogrel [Plavix] 75 mg PO QAM tablet 06/18/16 [Rx] Aspirin 81 mg PO DAILY #60 tab.chew 12/06/16 [Rx] Mag Hydrox/Al Hydrox/Simeth [Maalox] 30 ml PO Q6H PRN 30 Days oral.susp [Rx] Cholecalciferol (D-3) [Vitamin D] 1,000 unit PO DAILY 04/27/17 [History] Metoclopramide [Reglan] 10 mg PO TID 04/27/17 [History] Metoprolol XL (24 HR) Succ [Toprol Xl] 50 mg PO DAILY 04/27/17 [History] clonazePAM [Klonopin] 0.5 mg PO DAILY PRN 05/28/17 [History] Magnesium Oxide [Mag-Ox] 400 mg PO DAILY #0 tab 05/29/17 [Rx] Bumetanide 2 mg PO BID 06/11/17 [History] Gabapentin [Neurontin] 800 mg PO 5XD 06/11/17 [History] Omeprazole [PriLOSEC] 20 mg PO BIDAC 06/11/17 [History] Potassium Chloride 20 meq PO BID 06/11/17 [History] Tizanidine HCl [Zanaflex] 4 mg PO TID PRN 06/11/17 [History] amLODIPine [Norvasc] 2.5 mg PO DAILY 06/11/17 [History] metOLazone [Zaroxolyn] 2.5 mg PO DAILY PRN 06/11/17 [History] Isosorbide MONOnitrate (24 HR) [Imdur] 120 mg PO DAILY 06/26/17 [History] [place]-3 Fatty Acids/Fish Oil [Fish Oil 1,000 mg Softgel] 1 cap PO DAILY [History] Nortriptyline [Pamelor] 25 mg PO HS 06/27/17 [History] DiphenhydraMINE [Benadryl] 25 mg PO HS 08/29/17 [History] Roflumilast [Daliresp] 500 mcg PO DAILY #30 tablet 09/09/17 [Rx] Buspirone HCl [Buspar] 20 mg PO BID 09/12/17 [History] Buprenorphine [Butrans] 1 patch TD QWEEK 09/19/17 [History] Tramadol HCl [Ultram] 50 mg PO TID PRN 09/19/17 [History] GuaiFENesin ER [Mucinex] 600 mg PO Q12H #6 tbbp.12hr 09/22/17 [Rx] Insulin LISPRO [Humalog Kwikpen U-100] 2 - 10 unit SQ TID PRN #1 insuln.pen [Rx] predniSONE [PredniSONE] 10 mg PO DAILY #31 tablet 10/31/17 [Rx] Allergies/Adverse Reactions: 3 Allergy/AdvReac Type Severity Reaction Status Date / Time No Known Allergies Allergy Verified 10/13/17 08:09 Date of admission: 10/28/17 13:41 Primary care physician: PCP NONE Consults: 10/28/17 17:14 Consult to Infectious Diseases [CONS] Routine Consulting Provider: Infectious Disease Pat Reason for Consult: Cellulitis is worsening. Wound care has also been consulted. Redness is extending, becoming worse. Patient is having increasing pain. Dr. Sebastian by phone. Time Notified: 14:00 Call Completed: Yes Discharging clinician: Maci Woodall Anticipated date of discharge: 10/31/17 - Constitutional Vitals: Temp Pulse Resp BP Pulse Ox 97.7 F 81 14 113/74 97 10/31/17 07:19 10/31/17 07:19 10/31/17 08:01 10/31/17 07:19 10/31/17 08:01 General appearance: Present: cooperative, A&O X 3, morbidly obese, pleasant, no acute distress, answers questions appropriately - Head Head exam: Present: atraumatic, normal inspection, normocephalic - Eye Eye exam: Present: normal appearance, conjuntiva pink, sclera anicteric - Neck Neck exam general surgery: Present: supple, trachea midline. Absent: lymphadenopathy, tenderness - Respiratory Respiratory exam: Present: CTAB. Absent: accessory muscle use, chest wall tenderness, rales, respiratory distress, rhonchi, wheezes - Cardiovascular Cardiovascular exam: Present: RRR, +S1, +S2. Absent: diastolic murmur, gallop, rubs, systolic murmur - GI/Abdominal GI/Abdominal exam: Present: normal bowel sounds, soft, no peritoneal signs. Absent: distended, hepatomegaly, tenderness - Extremities Exam Extremities exam: Present: normal capillary refill, warm, radial pulses palpable and symmetrical. Absent: calf tenderness, cyanotic, pedal edema - Neurological Exam Neurological exam: Present: alert, CN II-XII intact, oriented X3, no focal deficits. Absent: facial droop, speech deficit - Skin Skin exam: Present: dry, intact, normal color, warm. Absent: rash - Patient Status Disposition: Home, Self-Care Functional capacity at discharge: independent ambulation Overall status at discharge: patient is progressing back to baseline - Discharge Instructions Follow Up With: NONE,PCP [Primary Care Provider] - Additional Instructions: Discharge CAT scan of the chest was negative. You do have a pulmonary nodule that will need to follow up with her primary care physician for repeat CT in 6- 12 months. Follow up with your primary care provider in the next 7 days for a recheck. Your steroid prescription is at [facility] pharmacy. Return to the emergency department as needed for any other problems or concerns Take your normal medications as directed. Elevate your legs as much as possible through the day. Follow with vascular as scheduled. Eat a diabetic diet, watch your blood sugars, Accu-Cheks and take your medications as directed. Return to your normal activities as tolerated and try to add exercise to your daily routine. - Diet and Activity Activity: resume usual activities as tolerated, wear oxygen at all times Diet: diabetic diet, low fat, low cholesterol
[2017-10-31 10:42] VITALS: BP 112/68
[2017-10-31] MEDS ORDERED: Aminoglycoside Consult 1 EACH MC ONE (13:29)
== END 2017-10-31 13:30 | disposition home or self-care (01) | DRG 191 ==
LOC: EMEROO 06:11 → 3BNU 06:11
PROVIDERS: ADMIT Internal Medicine; ATTEND Registered Nurse

== ENCOUNTER 2018-01-18 03:13 | Observation (INO) ==
[2018-01-18] MEDS ORDERED: Ipratropium/Albuterol Neb 3 ML IH ONE (03:34)
[2018-01-18] MEDS ORDERED: methylPREDNISolone 125 MG/2 ML VIAL IVP ONE (03:35)
--- NOTE | 2018-01-18 03:37 | Emergency Department Note ---
Disposition Clinical Impression: Acute exacerbation of chronic obstructive airways disease Disposition: Admitted As Inpatient Condition: Fair General Adult HPI - General Chief complaint: ED Shortness of Breath/Dyspnea Stated complaint: copd/cant breath Time Seen by Provider: 01/18/18 03:15 Source: patient Limitations: no limitations - History of Present Illness Pain Scale: 7 - Related Data Home Medications Medication Instructions Recorded Confirmed metFORMIN [Glucophage] 1,000 mg PO BID 04/21/15 01/18/18 Atorvastatin Calcium [Lipitor] 40 mg PO DAILY 02/04/16 01/18/18 Montelukast [Singulair] 10 mg PO HS 02/04/16 01/18/18 Oxygen 2 l NS AD PRN 03/17/16 01/18/18 Insulin Glargine [Lantus] 80 unit SQ QPM 03/25/16 01/18/18 Insulin Glargine [Lantus] 90 unit SQ QAM 03/25/16 01/18/18 Albuterol Sulfate [Albuterol 2 puff IH Q4HR PRN 05/01/16 01/18/18 Inhaler] Citalopram Hydrobromide 40 mg PO DAILY 05/01/16 01/18/18 [Citalopram HBr] Raloxifene [Evista] 60 mg PO DAILY 05/01/16 01/18/18 Fenofibrate Nanocrystallized 145 mg PO DAILY 06/15/16 01/18/18 [Tricor] Cholecalciferol (D-3) [Vitamin D] 1,000 unit PO DAILY 04/27/17 01/18/18 Metoprolol XL (24 HR) Succ [Toprol 50 mg PO DAILY 04/27/17 01/18/18 Xl] clonazePAM [Klonopin] 0.5 mg PO BID PRN 05/28/17 01/18/18 Bumetanide 2 mg PO BID 06/11/17 01/18/18 Gabapentin [Neurontin] 800 mg PO TID 06/11/17 01/18/18 Omeprazole [PriLOSEC] 20 mg PO DAILY 06/11/17 01/18/18 Potassium Chloride 20 meq PO BID 06/11/17 01/18/18 Tizanidine HCl [Zanaflex] 4 mg PO TID PRN 06/11/17 01/18/18 Nortriptyline [Pamelor] 25 mg PO HS 06/27/17 01/18/18 DiphenhydraMINE [Benadryl] 25 mg PO HS 08/29/17 01/18/18 Buspirone HCl [Buspar] 20 mg PO BID 09/12/17 01/18/18 Tramadol HCl [Ultram] 100 mg PO TID PRN 09/19/17 01/18/18 Cyanocobalamin (Vitamin B-12) 1,000 mcg PO DAILY 11/14/17 01/18/18 [Vitamin B-12] Nitroglycerin [Nitrostat] 0.4 mg SL PRN PRN 11/14/17 01/18/18 Buprenorphine [Butrans] 1 patch TD QWEEK 11/25/17 01/18/18 ARIPiprazole [Abilify] 10 mg PO DAILY 01/18/18 01/18/18 Isosorbide MONOnitrate [Isosorbide 120 mg PO DAILY 01/18/18 01/18/18 Mononitrate ER] Levothyroxine Sodium [Levoxyl] 100 mcg PO DAILY 01/18/18 01/18/18 Metoclopramide [Reglan] 10 mg PO TID 01/18/18 01/18/18 [place]-3 Acid Ethyl Esters [Lovaza] 1 gm PO DAILY 01/18/18 01/18/18 Tiotropium [Spiriva] 18 mcg IH DAILY 01/18/18 01/18/18 metOLazone [Zaroxolyn] 5 mg PO Q48H 01/18/18 01/18/18 Previous Rx's Medication Instructions Recorded Clopidogrel [Plavix] 75 mg PO QAM tablet 06/18/16 Aspirin 81 mg PO DAILY #60 tab.chew 12/06/16 Mag Hydrox/Al Hydrox/Simeth 30 ml PO Q6H PRN 30 Days oral.susp 03/26/17 [Maalox] Magnesium Oxide [Mag-Ox] 400 mg PO DAILY #0 tab 05/29/17 Insulin LISPRO [Humalog Kwikpen 2 - 10 unit SQ TID PRN #1 10/19/17 U-100] insuln.pen HydrOXYzine 10 mg PO TID PRN 30 Days #90 tablet 11/28/17 Ondansetron ODT [Zofran ODT] 4 mg SL Q8HR PRN #10 tab.rapdis 01/09/18 Azithromycin [Zithromax Tri-[place]] 500 mg PO DAILY #1 tablet 01/19/18 Bumetanide [Bumex] 2 mg PO BIDDIURETIC #30 tablet 01/19/18 predniSONE [PredniSONE] 10 mg PO DAILY 12 Days tablet 01/19/18 Allergies Allergy/AdvReac Type Severity Reaction Status Date / Time cefazolin [From [facility]] Allergy Itching Verified 11/26/17 01:38 Past Medical History - Past Medical History Medical history: Reports: arthritis, CHF, COPD, coronary artery disease, diabetes, GERD, hyperlipidemia, hypertension, osteoporosis, renal disease, thyroid disease, TIA, venous stasis, other Surgical history: Reports: angioplasty/stent, , cholecystectomy, hysterectomy Psychiatric history: Reports: anxiety, bipolar, depression, panic disorder 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 history: Reports: bilateral tubal ligation - Social History Smoking Status: Former smoker Smokeless Tobacco Status: No Alcohol use: Reports: none Drug use: Reports: none Physical Exam - General Limitations: no limitations General appearance: alert, in no apparent distress Course Vital Signs Temperature 97.9 F 01/18/18 03:27 Pulse Rate 90 01/18/18 03:27 Respiratory Rate 20 01/18/18 03:27 Blood Pressure 149/73 01/18/18 03:27 O2 Sat by Pulse Oximetry 94 01/18/18 03:27 Temperature 98.1 F 01/19/18 15:15 Pulse Rate 72 01/19/18 15:15 Respiratory Rate 18 01/19/18 16:00 Blood Pressure 119/63 01/19/18 15:15 O2 Sat by Pulse Oximetry 97 01/19/18 16:00 Oxygen Delivery Oxygen Delivery Nasal Cannula Medical Decision Making - Lab Data Result diagrams: 01/19/18 07:35 01/19/18 07:35 Lab Results 01/18/18 01/18/18 01/18/18 Range/Units 04:35 04:35 04:35 WBC 10.8 (4.3-11.1) K/mcL RBC 3.77 L (3.82-4.97) M/mcL Hgb 9.6 L (11.5-15.4) g/dL Hct 31.6 L (35.3-44.9) % MCV 83.8 (83.0-100.0) fL MCH 25.5 L (28.0-33.3) pg MCHC 30.4 L (31.6-35.5) g/dL RDW 16.4 H (11.5-14.5) % Plt Count 326 (140-400) K/mcL MPV 10.9 (9.4-12.4) fL Immature Gran % 1.9 (0-4) % Seg Neutrophils % 59.2 % Lymphocytes % 31.4 % Monocytes % 5.1 % Eosinophils % 1.9 % Basophils % 0.5 % Neutrophils # 6.4 (1.6-8.9) K/mcL Lymphocytes # 3.4 (0.6-4.6) K/mcL Monocytes # 0.6 (0.0-1.3) K/mcL Eosinophils # 0.2 (0.0-0.6) K/mcL Basophils # 0.1 (0.0-0.2) K/mcL Nucleated RBCs/100 WBC 0.6 H (0) /100 WBC Sodium 140 (136-145) mEq/L Potassium 4.2 (3.5-5.1) mEq/L Chloride 106 (98-107) mEq/L Carbon Dioxide 28 (23-29) mEq/L BUN 22 (8-23) mg/dL Creatinine 0.81 (0.60-1.20) mg/dL Est GFR ( Amer) > 60 (> 60) Est GFR (Non-Af Amer) > 60 (> 60) BUN/Creatinine Ratio 27 H (6-26) Glucose 372 H (70-105) mg/dL Calculated Osmolality 309 H (280-300) Lactic Acid 1.5 (0.5-2.2) mmol/L Calcium 8.7 (8.6-10.3) mg/dL Troponin I < 0.03 (< 0.04) ng/mL B-Natriuretic Peptide (Less than 100) pg/mL 01/18/18 Range/Units 04:35 WBC (4.3-11.1) K/mcL RBC (3.82-4.97) M/mcL Hgb (11.5-15.4) g/dL Hct (35.3-44.9) % MCV (83.0-100.0) fL MCH (28.0-33.3) pg MCHC (31.6-35.5) g/dL RDW (11.5-14.5) % Plt Count (140-400) K/mcL MPV (9.4-12.4) fL Immature Gran % (0-4) % Seg Neutrophils % % Lymphocytes % % Monocytes % % Eosinophils % % Basophils % % Neutrophils # (1.6-8.9) K/mcL Lymphocytes # (0.6-4.6) K/mcL Monocytes # (0.0-1.3) K/mcL Eosinophils # (0.0-0.6) K/mcL Basophils # (0.0-0.2) K/mcL Nucleated RBCs/100 WBC (0) /100 WBC Sodium (136-145) mEq/L Potassium (3.5-5.1) mEq/L Chloride (98-107) mEq/L Carbon Dioxide (23-29) mEq/L BUN (8-23) mg/dL Creatinine (0.60-1.20) mg/dL Est GFR ( Amer) (> 60) Est GFR (Non-Af Amer) (> 60) BUN/Creatinine Ratio (6-26) Glucose (70-105) mg/dL Calculated Osmolality (280-300) Lactic Acid (0.5-2.2) mmol/L Calcium (8.6-10.3) mg/dL Troponin I (< 0.04) ng/mL B-Natriuretic Peptide 98 (Less than 100) pg/mL Attestation Statement - Attestation Attestation: I examined this patient and my medical decision-making was reviewed with the Resident Physician. I agree with the documented findings, disposition and treatment plan as described except to the extent set forth below. Findings consistent with COPD exacerbation. We will start antibiotics, steroids, bronchodilator. Disposition is pending results of interventions as well as patient response to treatment. X-ray shows basilar congestion. BMP is pending. Patient will be admitted for diuresis and echocardiogram.
--- NOTE | 2018-01-18 03:39 | Emergency Department Note ---
Disposition Clinical Impression: Acute exacerbation of chronic obstructive airways disease Disposition: Admitted As Inpatient Condition: Fair Referrals: Isaac Morley MD [Non-Partnered Physician] - Forms: ED Satisfaction Letter Time of Disposition: 06:48 SOB HPI - General Chief Complaint: ED Shortness of Breath/Dyspnea Stated Complaint: copd/cant breath Time Seen by Provider: 01/18/18 03:15 Source: patient Limitations: no limitations Nursing Notes Reviewed: Yes Vital Signs Reviewed: Yes - History of Present Illness Patient is a 62-year-old female who presents to [facility] ED with a chief complaint of difficulty breathing. States her symptoms started over the last few days. She has been ill with an upper respiratory infection with nasal drainage and cough for the last 2 weeks. States she has been using her nebulizer treatments at home and took 2 of them today without any relief. Denies any nausea, vomiting, fever or chills. Has had some chest pain with deep breathing. No abdominal pain, problems with urination or bowel movements. Pt Subjective Complaint: shortness of breath Onset (ago): day(s) Context: recent illness Severity: moderate Consistency/Duration: gradually worsening Improves with: nothing Worsens with: exertion Known history of: COPD Associated symptoms: Reports: chest pain, cough, wheezing. Denies: fever Treatment prior to arrival: none Cough present: Yes Cough Description: Wheezy Cough Frequency: Intermittent - Related Data Home oxygen amount: 2 liters Home Medications Medication Instructions Recorded Confirmed metFORMIN [Glucophage] 1,000 mg PO BID 04/21/15 11/25/17 Atorvastatin Calcium [Lipitor] 40 mg PO DAILY 02/04/16 11/25/17 Montelukast [Singulair] 10 mg PO HS 02/04/16 11/25/17 Oxygen 2 l NS AD PRN 03/17/16 11/25/17 Insulin Glargine [Lantus] 80 unit SQ QPM 03/25/16 11/25/17 Insulin Glargine [Lantus] 90 unit SQ QAM 03/25/16 11/25/17 Albuterol Sulfate [Albuterol 2 puff IH Q4HR PRN 05/01/16 11/25/17 Inhaler] Citalopram Hydrobromide 40 mg PO DAILY 05/01/16 11/25/17 [Citalopram HBr] Raloxifene [Evista] 60 mg PO DAILY 05/01/16 11/25/17 Fenofibrate Nanocrystallized 145 mg PO DAILY 06/15/16 11/25/17 [Tricor] Cholecalciferol (D-3) [Vitamin D] 1,000 unit PO DAILY 04/27/17 11/25/17 Metoprolol XL (24 HR) Succ [Toprol 50 mg PO DAILY 04/27/17 11/25/17 Xl] clonazePAM [Klonopin] 0.5 mg PO DAILY PRN 05/28/17 11/25/17 Bumetanide 2 mg PO DAILY 06/11/17 11/25/17 Gabapentin [Neurontin] 800 mg PO QID 06/11/17 11/25/17 Omeprazole [PriLOSEC] 20 mg PO DAILY 06/11/17 11/25/17 Potassium Chloride 20 meq PO BID 06/11/17 11/25/17 Tizanidine HCl [Zanaflex] 4 mg PO TID PRN 06/11/17 11/25/17 Nortriptyline [Pamelor] 25 mg PO HS 06/27/17 11/25/17 DiphenhydraMINE [Benadryl] 25 mg PO HS 08/29/17 11/25/17 Buspirone HCl [Buspar] 20 mg PO BID 09/12/17 11/25/17 Tramadol HCl [Ultram] 100 mg PO TID PRN 09/19/17 11/25/17 Cyanocobalamin (Vitamin B-12) 1,000 mcg PO DAILY 11/14/17 11/25/17 [Vitamin B-12] Nitroglycerin [Nitrostat] 0.4 mg SL PRN PRN 11/14/17 11/25/17 Buprenorphine [Butrans] 1 patch TD QWEEK 11/25/17 11/25/17 Previous Rx's Medication Instructions Recorded Clopidogrel [Plavix] 75 mg PO QAM tablet 06/18/16 Aspirin 81 mg PO DAILY #60 tab.chew 12/06/16 Mag Hydrox/Al Hydrox/Simeth 30 ml PO Q6H PRN 30 Days oral.susp 03/26/17 [Maalox] Magnesium Oxide [Mag-Ox] 400 mg PO DAILY #0 tab 05/29/17 Roflumilast [Daliresp] 500 mcg PO DAILY #30 tablet 09/09/17 Insulin LISPRO [Humalog Kwikpen 2 - 10 unit SQ TID PRN #1 10/19/17 U-100] insuln.pen Pantoprazole Sodium [Protonix] 20 mg PO BID #30 tab 11/14/17 HydrOXYzine 10 mg PO TID PRN 30 Days #90 tablet 11/28/17 Ondansetron ODT [Zofran ODT] 4 mg SL Q8HR PRN #10 tab.rapdis 01/09/18 Allergies Allergy/AdvReac Type Severity Reaction Status Date / Time cefazolin [From Anc] Allergy Itching Verified 11/26/17 01:38 All systems ED: reviewed and negative except as stated. Past Medical History - Past Medical History Attestation: Yes The following information was validated with the patient. 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 - Social History Smoking Status: Former smoker Smokeless Tobacco Status: No Alcohol use: Reports: none Drug use: Reports: none Physical Exam - General Limitations: no limitations General appearance: alert, in no apparent distress - Head Head exam: atraumatic, normocephalic, normal inspection - Eye Eye exam: Present: normal appearance, PERRL, EOMI - ENT ENT exam: normal exam, normal oropharynx, mucous membranes moist - Neck Neck exam: Present: normal inspection, full ROM, trachea midline - Chest Chest inspection: Present: normal inspection, symmetric chest wall rise - Respiratory Respiratory exam: Present: wheezes - Cardiovascular Cardiovascular exam: Present: regular rate, normal rhythm, normal heart sounds - Abdominal Exam Abdominal exam: Present: soft, Non-Tender. Absent: tenderness, distention, guarding, rebound, rigidity - Extremities Exam Extremities exam: Present: normal inspection, full ROM, pedal edema (2+ pitting) . Absent: tenderness - Expanded Lower Extremity Exam Lower leg exam: Present: erythema (no crepitus; chronic venous stasis) - Back Exam Back exam: Present: normal inspection, full ROM. Absent: tenderness - Neurological Exam Neurological exam: Present: alert, oriented X3 - Psychiatric Psychiatric exam: Present: normal affect, normal mood - Skin Skin exam: Present: warm, dry, intact, normal color Course Course Narrative: Patient seen and examined. Care for difficulty breathing. Concern for COPD exacerbation. Triple DuoNeb ordered as well as 125 mg of Solu-Medrol. Chest x- ray and EKG ordered as well. Cardiopulmonary workup ordered - Reevaluation(s) Reevaluation #1: Chest x-ray shows signs of pulmonary congestion. Since patient is still very tight bilaterally, we will go ahead and admit for COPD exacerbation as well as possible echocardiogram. I discussed with the hospitalist who has accepted patient for admission. Time: 05:47 Vital Signs Temperature 97.9 F 01/18/18 03:27 Pulse Rate 90 01/18/18 03:27 Respiratory Rate 20 01/18/18 03:27 Blood Pressure 149/73 01/18/18 03:27 O2 Sat by Pulse Oximetry 94 01/18/18 03:27 Temperature 97.9 F 01/18/18 03:27 Pulse Rate 86 01/18/18 06:31 Respiratory Rate 18 01/18/18 06:31 Blood Pressure 145/68 01/18/18 06:31 O2 Sat by Pulse Oximetry 92 01/18/18 06:31 Oxygen Delivery Oxygen Delivery Nasal Cannula Shortness of Breath/Dyspnea - Medical Records Medical records reviewed: Yes I reviewed the patient's medical records. - Lab Data Result diagrams: 01/18/18 04:35 01/18/18 04:35 Lab Results 01/18/18 01/18/18 01/18/18 Range/Units 04:35 04:35 04:35 WBC 10.8 (4.3-11.1) K/mcL RBC 3.77 L (3.82-4.97) M/mcL Hgb 9.6 L (11.5-15.4) g/dL Hct 31.6 L (35.3-44.9) % MCV 83.8 (83.0-100.0) fL MCH 25.5 L (28.0-33.3) pg MCHC 30.4 L (31.6-35.5) g/dL RDW 16.4 H (11.5-14.5) % Plt Count 326 (140-400) K/mcL MPV 10.9 (9.4-12.4) fL Immature Gran % 1.9 (0-4) % Seg Neutrophils % 59.2 % Lymphocytes % 31.4 % Monocytes % 5.1 % Eosinophils % 1.9 % Basophils % 0.5 % Neutrophils # 6.4 (1.6-8.9) K/mcL Lymphocytes # 3.4 (0.6-4.6) K/mcL Monocytes # 0.6 (0.0-1.3) K/mcL Eosinophils # 0.2 (0.0-0.6) K/mcL Basophils # 0.1 (0.0-0.2) K/mcL Nucleated RBCs/100 WBC 0.6 H (0) /100 WBC Sodium 140 (136-145) mEq/L Potassium 4.2 (3.5-5.1) mEq/L Chloride 106 (98-107) mEq/L Carbon Dioxide 28 (23-29) mEq/L BUN 22 (8-23) mg/dL Creatinine 0.81 (0.60-1.20) mg/dL Est GFR ( Amer) > 60 (> 60) Est GFR (Non-Af Amer) > 60 (> 60) BUN/Creatinine Ratio 27 H (6-26) Glucose 372 H (70-105) mg/dL Calculated Osmolality 309 H (280-300) Lactic Acid 1.5 (0.5-2.2) mmol/L Calcium 8.7 (8.6-10.3) mg/dL Troponin I < 0.03 (< 0.04) ng/mL B-Natriuretic Peptide (Less than 100) pg/mL 01/18/18 Range/Units 04:35 WBC (4.3-11.1) K/mcL RBC (3.82-4.97) M/mcL Hgb (11.5-15.4) g/dL Hct (35.3-44.9) % MCV (83.0-100.0) fL MCH (28.0-33.3) pg MCHC (31.6-35.5) g/dL RDW (11.5-14.5) % Plt Count (140-400) K/mcL MPV (9.4-12.4) fL Immature Gran % (0-4) % Seg Neutrophils % % Lymphocytes % % Monocytes % % Eosinophils % % Basophils % % Neutrophils # (1.6-8.9) K/mcL Lymphocytes # (0.6-4.6) K/mcL Monocytes # (0.0-1.3) K/mcL Eosinophils # (0.0-0.6) K/mcL Basophils # (0.0-0.2) K/mcL Nucleated RBCs/100 WBC (0) /100 WBC Sodium (136-145) mEq/L Potassium (3.5-5.1) mEq/L Chloride (98-107) mEq/L Carbon Dioxide (23-29) mEq/L BUN (8-23) mg/dL Creatinine (0.60-1.20) mg/dL Est GFR ( Amer) (> 60) Est GFR (Non-Af Amer) (> 60) BUN/Creatinine Ratio (6-26) Glucose (70-105) mg/dL Calculated Osmolality (280-300) Lactic Acid (0.5-2.2) mmol/L Calcium (8.6-10.3) mg/dL Troponin I (< 0.04) ng/mL B-Natriuretic Peptide 98 (Less than 100) pg/mL - Radiology Data Radiology results reviewed: Yes I reviewed the patient's radiology results. - EKG Data EKG attestation: Yes I reviewed and interpreted this EKG. EKG results narrative: EKG done at 331 shows normal sinus rhythm with a rate of [address] elevation or depression.
[2018-01-18] MEDS ORDERED: Levofloxacin 750 MG/150 ML 750 MG/150 ML BAG IVPB ONE (04:18)
[2018-01-18 04:53] LABS: Basophils # 0.1 K/mcL (0.0-0.2); Basophils % 0.5 %; Eosinophils # 0.2 K/mcL (0.0-0.6); Eosinophils % 1.9 %; Hematocrit 31.6 % (35.3-44.9); Hemoglobin 9.6 g/dL (11.5-15.4); Immature Granulocytes % 1.9 % (0-4); Lymphocytes # 3.4 K/mcL (0.6-4.6); Lymphocytes % 31.4 %; Mean Corpuscular HGB Conc 30.4 g/dL (31.6-35.5); Mean Corpuscular Hemoglobin 25.5 pg (28.0-33.3); Mean Corpuscular Volume 83.8 fL (83.0-100.0); Mean Platelet Volume 10.9 fL (9.4-12.4); Monocytes # 0.6 K/mcL (0.0-1.3); Monocytes % 5.1 %; Neutrophils # 6.4 K/mcL (1.6-8.9); Nucleated Red Blood Cells 0.6 /100 WBC (0); Platelet Count 326 K/mcL (140-400); Red Blood Count 3.77 M/mcL (3.82-4.97); Red Cell Distribution Width 16.4 % (11.5-14.5); Segmented Neutrophils % 59.2 %
[2018-01-18 05:14] LABS: BUN/Creatinine Ratio 27 (6-26); Blood Urea Nitrogen 22 mg/dL (8-23); Calcium 8.7 mg/dL (8.6-10.3); Carbon Dioxide 28 mEq/L (23-29); Chloride 106 mEq/L (98-107); Glucose 372 mg/dL (70-105); Osmolality,Calculated 309 (280-300); Potassium 4.2 mEq/L (3.5-5.1); Sodium 140 mEq/L (136-145); eGFR For African Americans > 60 (> 60); eGFR For Non-African Americans > 60 (> 60)
[2018-01-18 05:15] LABS: Troponin I < 0.03 ng/mL (< 0.04)
[2018-01-18] MEDS ORDERED: Acetaminophen 325 MG TABLET PO PRN (05:47)
[2018-01-18] MEDS ORDERED: Naloxone 0.4 MG/ML INJ IVP PRN (05:47)
[2018-01-18] MEDS ORDERED: Ipratropium/Albuterol Neb 3 ML IH PRN (05:54)
--- NOTE | 2018-01-18 06:01 | Event Note ---
Date of Encounter: 01/18/18 Time of Encounter: 05:53 Patient was seen and examined. I agree with the H&P as written by the Resident Physician. Briefly, chronically ill female with history of chronic resp failure on home O2 , COPD, CHF, CAD, HTN, uncontrolled DM here with shortness of breath suddenly last night. Reports some URI symptoms. Was in significant distress per ED. By the time I saw her, she was more stable and had minimal expiratory wheezes. No hypoxia reported but labored breathing. w/u in the ED is remarkable for glucose in the 300s, anemia around baseline, CXR with vascular congestion. Patient is A/O x3 diminshed breath sounds and minimal expiratory wheezes S1, S2, no m/r/g soft, NT, ND Chronic LE cellulitc changes noted. Will admit to hospitalist for COPD exacerbation. No signs of volume overload despite CXR findings. Nebs IV azithro IV steroids Q8hrs for now with plans to wean down as fast as possible Patient tend to get significant hyperglycemia on IV steroids. Will add 15 units of prandial coverage to her insulin regimen High dose sliding scale c/w basal insulin Resume home meds DVT ppx
[2018-01-18] MEDS ORDERED: Dextrose Gel 15 GM/37.5 ML TUBE PO PRN ×2 (06:02)
[2018-01-18] MEDS ORDERED: *HR* Dextrose 50 % in Water (Syg) 50 ML SYRINGE IVP PRN (06:02)
[2018-01-18] MEDS ORDERED: D5% in Water 1,000 ML IVC PRN (06:02)
--- NOTE | 2018-01-18 06:24 | Internal Med History&Physical ---
Date of Encounter: 01/18/18 Time of Encounter: 06:11 Internal Medicine - H&P: HPI Chief complaint: weakness, Shortness of breath Admitted From: Emergency Dept History of present illness: Ms. Lynch is a 62 year old female with past medical history of COPD (wears 2 L oxygen continuously at home), uncontrolled type II diabetes, osteoarthritis, hypertension, history of tobacco abuse, hyperlipidemia, chronic back pain, Gerd , CAD (s/p stent placement) hypothyroidism, JILLIAN, obesity, heart failure was preserved ejection fraction, anxiety, depression. Patient arrived to the emergency department today by squad for multiple complainants. Of note, she has repeatedly been to the emergency department several times in the past, and has been admitted several times for acute COPD exacerbation. She was last discharged 11/28/17 after being treated for cellulitis. She states that she has recently been feeling very weak all over and has been having trouble getting around. She also reports significant shortness of breath that has been going on for a few days. She reports increased cough compared to her baseline. Cough is nonproductive. She denies any recent sick contacts. Patient admits to nausea without vomiting. She denies fevers, but reports intermittent chills. She denies chest pain, hematuria, hematochezia, diarrhea. Past Med Surg Social Fam HX - Past Medical History Medical history: arthritis, CHF, COPD, coronary artery disease, diabetes, GERD, hyperlipidemia, hypertension, osteoporosis, renal disease, thyroid disease, TIA , venous stasis, other Psychiatric history: anxiety, bipolar, depression, panic disorder - Past Surgical History Surgical History: angioplasty/stent, , cholecystectomy, hysterectomy - Social History Smoking Status: Former smoker Smokeless Tobacco Status: No Alcohol use: none Drug use: none - Family History Brother Adopted: No Family Member Ethnicity: Non- Living Status: Hx Family Cardiac Disorders: Yes Father Adopted: No Family Member Ethnicity: Non- Living Status: Hx Family Cardiac Disorders: Yes (HD, HLD, HTN, SD, Triple Bypass) Hx Family Neurologic Disorders: Yes (Dementia) Mother Adopted: No Family Member Ethnicity: Non- Living Status: Hx Family Cardiac Disorders: Yes (SD, HTN, HLD, Strokes x5) Hx Family Respiratory Disorders: No Hx Family Cancer: No Hx Family GI Disorders: No Hx Family Endocrine Disorder: Yes (DM) Hx Family Neuromuscular Disorders: No Hx Family Neurologic Disorders: Yes (Strokes) Hx Family HEENT Disorders: No Hx Family Autoimmune Disorders: No Internal Medicine - H&P: Meds Budesonide/Formoterol 160/4.5 [Symbicort] 2 puff IH BIDR 04/21/15 [History] Levothyroxine [Synthroid] 100 mcg PO QAM 04/21/15 [History] Tiotropium [Spiriva] 18 mcg IH QAM 04/21/15 [History] metFORMIN [Glucophage] 1,000 mg PO BID 04/21/15 [History] Atorvastatin Calcium [Lipitor] 40 mg PO DAILY 02/04/16 [History] Montelukast [Singulair] 10 mg PO HS 02/04/16 [History] Oxygen 2 l NS AD PRN 03/17/16 [History] Insulin Glargine [Lantus] 80 unit SQ QPM 03/25/16 [History] Insulin Glargine [Lantus] 90 unit SQ QAM 03/25/16 [History] Albuterol Sulfate [Albuterol Inhaler] 2 puff IH Q4HR PRN 05/01/16 [History] Citalopram Hydrobromide [Citalopram HBr] 40 mg PO DAILY 05/01/16 [History] Raloxifene [Evista] 60 mg PO DAILY 05/01/16 [History] Aripiprazole [Abilify] 10 mg PO HS tablet 05/03/16 [Rx] Fenofibrate Nanocrystallized [Tricor] 145 mg PO DAILY 06/15/16 [History] Clopidogrel [Plavix] 75 mg PO QAM tablet 06/18/16 [Rx] Aspirin 81 mg PO DAILY #60 tab.chew 12/06/16 [Rx] Mag Hydrox/Al Hydrox/Simeth [Maalox] 30 ml PO Q6H PRN 30 Days oral.susp [Rx] Cholecalciferol (D-3) [Vitamin D] 1,000 unit PO DAILY 04/27/17 [History] Metoprolol XL (24 HR) Succ [Toprol Xl] 50 mg PO DAILY 04/27/17 [History] clonazePAM [Klonopin] 0.5 mg PO DAILY PRN 05/28/17 [History] Magnesium Oxide [Mag-Ox] 400 mg PO DAILY #0 tab 05/29/17 [Rx] Bumetanide 2 mg PO DAILY 06/11/17 [History] Gabapentin [Neurontin] 800 mg PO QID 06/11/17 [History] Omeprazole [PriLOSEC] 20 mg PO DAILY 06/11/17 [History] Potassium Chloride 20 meq PO BID 06/11/17 [History] Tizanidine HCl [Zanaflex] 4 mg PO TID PRN 06/11/17 [History] Nortriptyline [Pamelor] 25 mg PO HS 06/27/17 [History] DiphenhydraMINE [Benadryl] 25 mg PO HS 08/29/17 [History] Roflumilast [Daliresp] 500 mcg PO DAILY #30 tablet 09/09/17 [Rx] Buspirone HCl [Buspar] 20 mg PO BID 09/12/17 [History] Tramadol HCl [Ultram] 100 mg PO TID PRN 09/19/17 [History] GuaiFENesin ER [Mucinex] 600 mg PO Q12H #6 tbbp.12hr 09/22/17 [Rx] Insulin LISPRO [Humalog Kwikpen U-100] 2 - 10 unit SQ TID PRN #1 insuln.pen [Rx] Acetaminophen [Tylenol] 650 mg PO Q6HR PRN 11/14/17 [History] Cyanocobalamin (Vitamin B-12) [Vitamin B-12] 1,000 mcg PO DAILY 11/14/17 [ History] Nitroglycerin [Nitrostat] 0.4 mg SL PRN PRN 11/14/17 [History] Pantoprazole Sodium [Protonix] 20 mg PO BID #30 tab 11/14/17 [Rx] Buprenorphine [Butrans] 1 patch TD QWEEK 11/25/17 [History] HydrOXYzine 10 mg PO TID PRN 30 Days #90 tablet 11/28/17 [Rx] Nitrofurantoin (BID) [Macrobid] 100 mg PO BIDWM #17 capsule 11/28/17 [Rx] Sulfamethoxazole/Trimeth DS [Bactrim DS] 1 each PO BID #6 tablet 12/28/17 [Rx] Ondansetron ODT [Zofran ODT] 4 mg SL Q8HR PRN #10 tab.rapdis 01/09/18 [Rx] 3 Allergy/AdvReac Type Severity Reaction Status Date / Time cefazolin [From [facility]] Allergy Itching Verified 11/26/17 01:38 All Systems PM: A 10-system review of systems was performed and is negative for pertinent findings except as documented above in the HPI. - Constitutional Constitutional: chills, fatigue, lethargy, no fever(s) - Respiratory Respiratory: wheezing - Genitourinary Genitourinary: as per HPI Menstruation: as per HPI - Musculoskeletal Musculoskeletal ROS IM: as per HPI - Integumentary Integumentary IM: as per HPI - Neurological Neurological ROS: as per HPI - Psychiatric Psychiatric: as per HPI - Endocrine Endocrine IM: as per HPI - Hematologic/Lymphatic Hematologic/Lymphatic: as per HPI - Allergic/Immunologic Allergic/Immunologic: as per HPI - Constitutional Vitals: Temp Pulse Resp BP Pulse Ox 97.9 F 98 20 133/44 95 01/18/18 03:27 01/18/18 05:59 01/18/18 05:59 01/18/18 05:59 01/18/18 05:59 General appearance: Present: mild distress (Mild respiratory distress), A&O X 3 , obese, answers questions appropriately - Head Head exam: Present: atraumatic, normocephalic - Neck Neck exam general surgery: Present: supple, trachea midline - Respiratory Additional comments: Significant expiratory wheezing present in all lung padgett. course breath sounds present. - Cardiovascular Cardiovascular exam: Present: RRR, +S1, +S2 - GI/Abdominal Additional comments: Soft, distended, normal bowel sounds, no significant tenderness to palpation. - Extremities Exam Additional comments: Bilateral lower extremity erythema and venous stasis present. Mild +1 thing edema present in bilateral lower extremities. - Neurological Exam Neurological exam: Present: alert, CN II-XII intact, oriented X3, strengths equal and symetr throughout. Absent: pronater drift, facial droop, speech deficit - Psychiatric Psychiatric exam: Present: anxious Internal Med - H&P Results - Labs CBC & Chem 7: 01/18/18 04:35 01/18/18 04:35 Labs: Short CBC 01/18/18 Range/Units 04:35 WBC 10.8 (4.3-11.1) K/mcL Hgb 9.6 L (11.5-15.4) g/dL Hct 31.6 L (35.3-44.9) % Plt Count 326 (140-400) K/mcL Neutrophils # 6.4 (1.6-8.9) K/mcL BMP 01/18/18 04:35 Sodium 140 Potassium 4.2 Chloride 106 Carbon Dioxide 28 BUN 22 Creatinine 0.81 Glucose 372 H Calcium 8.7 Cardiac Enzymes 01/18/18 Range/Units 04:35 Troponin I < 0.03 (< 0.04) ng/mL - Impressions ITS Impressions Chest X-Ray 01/18/18 04:18 IMPRESSION: No significant interval change. Findings are suggestive of pulmonary venous congestion. D/ / Benjamin Cardona MD / Benjamin Cardona MD Interpreting Provider: Benjamin Cardona MD - Assessment and plan (1) COPD exacerbation Current Visit: No Status: Chronic Assessment and plan: Patient complains of increased shortness of breath and cough. Has been admitted numerous times in the past for COPD exacerbation. Chest x-ray showed vascular congestion without any evidence signs of consolidation EKG showed no ischemic changes patient received IV steroids and Levaquin in the emergency department. plan: scheduled DuoNebs IV methylprednisolone, symbicort Azithromycin day 1 continuous oxygen- wean as tolerated will continue home dose inslulin with high dose sliding scale, as patient has been hyperglycemic in the past requiring insulin drip. continue to monitor. Her home medications need reconciliation once verified. (2) Hypertension Current Visit: No Status: Chronic Qualifiers: Hypertension type: essential hypertension Qualified Code(s): I10 - Essential (primary) hypertension (3) General weakness Current Visit: No Status: Acute Assessment and plan: Consult to PT/OT (4) Anxiety Current Visit: No Status: Chronic Assessment and plan: resume home meds once verified. (5) Depression Current Visit: No Status: Chronic Qualifiers: Depression Type: major depressive disorder Major depression recurrence: recurrent Active/Remission status: in partial remission Qualified Code(s): F33.41 - Major depressive disorder, recurrent, in partial remission (6) GERD (gastroesophageal reflux disease) Current Visit: No Status: Chronic Assessment and plan: takes omeprazole at home. Qualifiers: Esophagitis presence: without esophagitis Qualified Code(s): K21.9 - Gastro -esophageal reflux disease without esophagitis (7) Hypothyroidism Current Visit: No Status: Chronic Assessment and plan: Resume Synthroid once verified Qualifiers: Hypothyroidism type: acquired Qualified Code(s): E03.9 - Hypothyroidism, unspecified (8) Anemia Current Visit: No Status: Chronic Assessment and plan: History of chronic anemia, takes vitamin B12 at home. Resumed home meds once verified by pharmacy. Qualifiers: Anemia type: unspecified type Qualified Code(s): D64.9 - Anemia, unspecified (9) Chronic diastolic CHF (congestive heart failure) Current Visit: No Status: Chronic Assessment and plan: History of heart failure with preserved ejection fraction takes bumetanide and potassium at home Plan: resume home meds once verified by pharmacy. (10) Morbid obesity with BMI of 40.0-44.9, adult Current Visit: No Status: Chronic Assessment and plan: Lifestyle modifications advised (11) Type 2 diabetes mellitus Current Visit: No Status: Chronic Assessment and plan: History of uncontrolled diabetes type II, on home insulin. Last A1 C from 12/16/17 was 9.1 Patient does have history of hyperglycemia in the hospital requiring insulin drip. She will likely stay hyperglycemic due to steroids Plan: continue home dose of basal insulin with mealtime insulin and high dose sliding scale, ACHS accuchecks. 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 mellitus fitter mechanic insulin use: with fitter mechanic use Diabetes mellitus complication status: with neurologic complications Diabetes mellitus complication detail: with polyneuropathy Qualified Code(s): E11.42 - Type 2 diabetes mellitus with diabetic polyneuropathy; Z79.4 - skilled nursing (current) use of insulin; Z79.4 - skilled nursing (current) use of insulin; Z79.4 - skilled nursing ( current) use of insulin; Z79.4 - lump roller (current) use of insulin (12) CAD (coronary artery disease) Current Visit: No Status: Chronic Assessment and plan: Continue aspirin, Statin resume metoprolol when home med list is verified. Qualifiers: Coronary Disease-Associated Artery/Lesion type: [place] artery [place] vs. transplanted heart: [place] heart Associated angina: with stable angina Qualified Code(s): I25.118 - Atherosclerotic heart disease of [place] coronary artery with other forms of angina pectoris (13) HLD (hyperlipidemia) Current Visit: No Status: Chronic Qualifiers: Hyperlipidemia type: pure hypercholesterolemia Qualified Code(s): E78.00 - Pure hypercholesterolemia, unspecified; E78.0 - Pure hypercholesterolemia (14) DVT prophylaxis Current Visit: Yes Status: Acute Assessment and plan: Heparin SQ - Time Spent With Patient Total time spent is greater than 50% in coordination of care (as documented) at patient's floor/unit and/or counseling patient:
[2018-01-18] MEDS ORDERED: clonazePAM 1 MG TABLET PO PRN (08:54)
[2018-01-18] MEDS ORDERED: BUPRENORPHINE TP SCH (09:00)
[2018-01-18] MEDS ORDERED: metOLazone 5 MG TABLET PO SCH (09:00)
[2018-01-18] MEDS: Azithromycin 500 MG in D5% in Water 250 ML IVPB SCH (09:03)
[2018-01-18] MEDS: Insulin LISPRO 300 UNITS/3 ML VIAL SQ SCH ×6 (09:04→16:48)
[2018-01-18] MEDS: *HR* Heparin 5,000 UNIT/ML VIAL SQ SCH ×2 (09:04→18:07)
[2018-01-18] MEDS: Insulin DETEMIR 100 UNIT/ML X5UNITS SQ SCH ×2 (09:09→21:42)
[2018-01-18] MEDS: Aspirin 81 MG TAB.CHEW PO SCH (09:10)
[2018-01-18] MEDS: Ipratropium/Albuterol Neb 3 ML IH SCH ×5 (10:06→23:22)
[2018-01-18] MEDS: Tiotropium 18 MCG inhalation IH SCH (10:07)
[2018-01-18] MEDS: Budesonide/Formoterol 160/4.5 MDI IH SCH ×2 (10:08→20:48)
[2018-01-18] MEDS: ARIPiprazole 10 MG TABLET PO SCH (11:39)
[2018-01-18] MEDS: Bumetanide 1 MG TABLET PO SCH ×2 (11:39→16:54)
[2018-01-18] MEDS: Metoprolol XL (24 HR) Succ 50 MG TAB.ER.24H PO SCH (11:41)
[2018-01-18] MEDS: Cholecalciferol (D-3) 1,000 UNIT TABLET PO SCH (11:42)
[2018-01-18] MEDS: Isosorbide MONOnitrate (24 HR) 60 MG TAB.ER.24H PO SCH (11:42)
[2018-01-18] MEDS: Fenofibrate 54 MG TABLET PO SCH (11:42)
[2018-01-18] MEDS: Gabapentin 400 MG CAPSULE PO SCH ×3 (11:47→21:41)
[2018-01-18] MEDS: MethylPREDNISolone 40 MG/ML VIAL IVP SCH ×2 (14:12→21:36)
--- NOTE | 2018-01-18 20:35 | Electrocardiograph Report ---
[address] [place], [place] [address] Test Date: 2018-01-18 Pat Name: Claire Lynch Department: 103 Room: 3B Gender: F [employer] Drawer: ASHLEE : 1955 Requested By: Maverick Toure Order Number: [id number] Reading MD: Maged Cleaning Measurements Intervals [place] Rate: 84 P: 136 MI: 140 QRS: 161 QRSD: 76 T: 172 QT: 369 QTc: 409 Interpretive Statements SINUS RHYTHM ARM LEADS REVERSED Electronically Signed On 01-18-2018 20:33:53 EDT by Maged Cleaning
[2018-01-18] MEDS ORDERED: Insulin LISPRO 300 UNITS/3 ML VIAL SQ SCH (21:00)
[2018-01-19] MEDS: Ipratropium/Albuterol Neb 3 ML IH SCH ×4 (04:13→15:59)
[2018-01-19] MEDS: MethylPREDNISolone 40 MG/ML VIAL IVP SCH ×2 (04:41→12:17)
[2018-01-19] MEDS: Azithromycin 500 MG in D5% in Water 250 ML IVPB SCH (06:48)
[2018-01-19] MEDS: *HR* Heparin 5,000 UNIT/ML VIAL SQ SCH ×2 (06:58→16:48)
[2018-01-19] MEDS: Budesonide/Formoterol 160/4.5 MDI IH SCH (07:50)
[2018-01-19] MEDS: Tiotropium 18 MCG inhalation IH SCH (07:51)
[2018-01-19 08:06] LABS: Basophils % 0.3 %; Eosinophils % 0.1 %; Hematocrit 30.8 % (35.3-44.9); Hemoglobin 9.3 g/dL (11.5-15.4); Immature Granulocytes % 1.3 % (0-4); Lymphocytes # 2.3 K/mcL (0.6-4.6); Lymphocytes % 21.2 %; Mean Corpuscular HGB Conc 30.2 g/dL (31.6-35.5); Mean Corpuscular Volume 82.8 fL (83.0-100.0); Mean Platelet Volume 11.1 fL (9.4-12.4); Monocytes # 0.5 K/mcL (0.0-1.3); Monocytes % 4.8 %; Neutrophils # 7.9 K/mcL (1.6-8.9); Nucleated Red Blood Cells 0.2 /100 WBC (0); Platelet Count 313 K/mcL (140-400); Red Blood Count 3.72 M/mcL (3.82-4.97); Red Cell Distribution Width 15.9 % (11.5-14.5); Segmented Neutrophils % 72.3 %
[2018-01-19] MEDS: Metoprolol XL (24 HR) Succ 50 MG TAB.ER.24H PO SCH (08:44)
[2018-01-19] MEDS: Fenofibrate 54 MG TABLET PO SCH (08:44)
[2018-01-19] MEDS: Bumetanide 1 MG TABLET PO SCH ×2 (08:44→16:01)
[2018-01-19] MEDS: Cholecalciferol (D-3) 1,000 UNIT TABLET PO SCH (08:44)
[2018-01-19] MEDS: ARIPiprazole 10 MG TABLET PO SCH (08:44)
[2018-01-19] MEDS: Aspirin 81 MG TAB.CHEW PO SCH (08:44)
[2018-01-19] MEDS: Isosorbide MONOnitrate (24 HR) 60 MG TAB.ER.24H PO SCH (08:45)
[2018-01-19] MEDS: Gabapentin 400 MG CAPSULE PO SCH ×2 (08:45→16:01)
[2018-01-19] MEDS: Insulin DETEMIR 100 UNIT/ML X5UNITS SQ SCH (08:46)
[2018-01-19] MEDS: Insulin LISPRO 300 UNITS/3 ML VIAL SQ SCH ×6 (08:46→16:41)
[2018-01-19] MEDS ORDERED: Magnesium Oxide 400 MG TABLET PO SCH (09:00)
[2018-01-19 10:09] LABS: BUN/Creatinine Ratio 28 (6-26); Blood Urea Nitrogen 19 mg/dL (8-23); Calcium 8.9 mg/dL (8.6-10.3); Carbon Dioxide 26 mEq/L (23-29); Chloride 100 mEq/L (98-107); Glucose 354 mg/dL (70-105); Osmolality,Calculated 294 (280-300); Potassium 3.9 mEq/L (3.5-5.1); Sodium 134 mEq/L (136-145); eGFR For African Americans > 60 (> 60); eGFR For Non-African Americans > 60 (> 60)
[2018-01-19] MEDS ORDERED: Nystatin POWDER 30 GM BOTTLE TP SCH (15:00)
[2018-01-19 15:16] VITALS: BP 119/63
--- NOTE | 2018-01-19 16:53 | Discharge Summary ---
- NOTES TO OUTPATIENT PROVIDER Notes to Outpatient Provider: Follow-up with primary care physician within the next 7 days. Take one more dose of azithromycin on 01/20/2018. Continue Bumex , minimize fluid intake, prednisone taper as follows. 40 mg daily for 3 days, 30 mg for 3 days, 20 mg for 3 days, 10 mg for 3 days Date of Encounter: 01/19/18 Time of Encounter: 16:51 - Discharge Diagnosis (1) COPD exacerbation Priority: Primary Status: Chronic Assessment and Plan: Acute on chronic hypoxic respiratory failure secondary to combination of acute COPD exacerbation due to acute bacterial bronchitis and acute pulmonary edema as a result of acute diastolic CHF exacerbation Noncompliance with diuretics (2) Anxiety Priority: Secondary Status: Chronic Assessment and Plan: (3) Depression Priority: Secondary Status: Chronic Qualifiers: Depression Type: major depressive disorder Major depression recurrence: recurrent Active/Remission status: in partial remission Qualified Code(s): F33.41 - Major depressive disorder, recurrent, in partial remission (4) GERD (gastroesophageal reflux disease) Priority: Secondary Status: Chronic Qualifiers: Esophagitis presence: without esophagitis Qualified Code(s): K21.9 - Gastro -esophageal reflux disease without esophagitis (5) Hypothyroidism Priority: Secondary Status: Chronic Qualifiers: Hypothyroidism type: acquired Qualified Code(s): E03.9 - Hypothyroidism, unspecified (6) Anemia Priority: Secondary Status: Chronic Assessment and Plan: History of chronic anemia, takes vitamin B12 at home. . Qualifiers: Anemia type: unspecified type Qualified Code(s): D64.9 - Anemia, unspecified (7) Chronic diastolic CHF (congestive heart failure) Priority: Primary Status: Chronic (8) Morbid obesity with BMI of 40.0-44.9, adult Priority: Secondary Status: Chronic (9) CAD (coronary artery disease) Priority: Secondary Status: Chronic Qualifiers: Coronary Disease-Associated Artery/Lesion type: enterprise artery [place]lim [place] vs. transplanted heart: enterprise heart Associated angina: with stable angina Qualified Code(s): I25.118 - Atherosclerotic heart disease of enterprise coronary artery with other forms of angina pectoris (10) Type 2 diabetes mellitus Priority: Secondary Status: Chronic 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 mellitus middle or intermediate school principal insulin use: with chcf use Diabetes mellitus complication status: with neurologic complications Diabetes mellitus complication detail: with polyneuropathy Qualified Code(s): E11.42 - Type 2 diabetes mellitus with diabetic polyneuropathy; Z79.4 - assistant terminal manager (current) use of insulin; Z79.4 - assistant terminal manager (current) use of insulin; Z79.4 - assistant terminal manager ( current) use of insulin; Z79.4 - assistant terminal manager (current) use of insulin (11) Hypertension Priority: Secondary Status: Chronic Qualifiers: Hypertension type: essential hypertension Qualified Code(s): I10 - Essential (primary) hypertension (12) HLD (hyperlipidemia) Priority: Secondary Status: Chronic Qualifiers: Hyperlipidemia type: pure hypercholesterolemia Qualified Code(s): E78.00 - Pure hypercholesterolemia, unspecified; E78.0 - Pure hypercholesterolemia (13) General weakness Priority: Secondary Status: Acute Hospital course: Ms. Lynch is a 62 year old female with past medical history of COPD ( 2 L oxygen continuously at home), uncontrolled type II diabetes, osteoarthritis, hypertension, history of tobacco abuse, hyperlipidemia, chronic back pain, Gerd , CAD (s/p stent placement) hypothyroidism, JILLIAN, obesity, diastolic heart failure preserved ejection fraction, anxiety, depression. Patient arrived to the emergency department by squad for multiple complainants. Of note, she has repeatedly been to the emergency department several times in the past, and has been admitted several times for acute COPD exacerbation. She was last discharged 11/28/17 after being treated for cellulitis. She stated that she has recently been feeling very weak all over and has been having trouble getting around. She also reported significant shortness of breath that was going on for a few days. She reported increased cough compared to her baseline. Cough was nonproductive. She denied any recent sick contacts. Chest x-ray showed vascular congestion without any evidence signs of consolidation EKG showed no ischemic changes patient received IV steroids and Levaquin in the emergency department. Received Azithromycin continuous oxygen- wean as tolerated, Improved on Bumex, apparently she has not been compliant with Bumex as "it makes her pee too much" Feels better, was given the option to stay another day but prefers to go home, insists on being discharged JENN w Time spent discussing smoking cessation with patient: 3 to 10 minutes - Time Spent with Patient Total time spent providing and/or coordinating discharge services: Greater than 30 minutes (40 MIN) - Discharge Medications Prescriptions: Azithromycin [Zithromax Tri-Avery] 500 mg PO DAILY #1 tablet Bumetanide [Bumex] 2 mg PO BIDDIURETIC #30 tablet predniSONE [PredniSONE] 10 mg PO DAILY 12 Days tablet Home Medications: metFORMIN [Glucophage] 1,000 mg PO BID 04/21/15 [History] Atorvastatin Calcium [Lipitor] 40 mg PO DAILY 02/04/16 [History] Montelukast [Singulair] 10 mg PO HS 02/04/16 [History] Oxygen 2 l NS AD PRN 03/17/16 [History] Insulin Glargine [Lantus] 80 unit SQ QPM 03/25/16 [History] Insulin Glargine [Lantus] 90 unit SQ QAM 03/25/16 [History] Albuterol Sulfate [Albuterol Inhaler] 2 puff IH Q4HR PRN 05/01/16 [History] Citalopram Hydrobromide [Citalopram HBr] 40 mg PO DAILY 05/01/16 [History] Raloxifene [Evista] 60 mg PO DAILY 05/01/16 [History] Fenofibrate Nanocrystallized [Tricor] 145 mg PO DAILY 06/15/16 [History] Clopidogrel [Plavix] 75 mg PO QAM tablet 06/18/16 [Rx] Aspirin 81 mg PO DAILY #60 tab.chew 12/06/16 [Rx] Mag Hydrox/Al Hydrox/Simeth [Maalox] 30 ml PO Q6H PRN 30 Days oral.susp [Rx] Cholecalciferol (D-3) [Vitamin D] 1,000 unit PO DAILY 04/27/17 [History] Metoprolol XL (24 HR) Succ [Toprol Xl] 50 mg PO DAILY 04/27/17 [History] clonazePAM [Klonopin] 0.5 mg PO BID PRN 05/28/17 [History] Magnesium Oxide [Mag-Ox] 400 mg PO DAILY #0 tab 05/29/17 [Rx] Bumetanide 2 mg PO BID 06/11/17 [History] Gabapentin [Neurontin] 800 mg PO TID 06/11/17 [History] Omeprazole [PriLOSEC] 20 mg PO DAILY 06/11/17 [History] Potassium Chloride 20 meq PO BID 06/11/17 [History] Tizanidine HCl [Zanaflex] 4 mg PO TID PRN 06/11/17 [History] Nortriptyline [Pamelor] 25 mg PO HS 06/27/17 [History] DiphenhydraMINE [Benadryl] 25 mg PO HS 08/29/17 [History] Buspirone HCl [Buspar] 20 mg PO BID 09/12/17 [History] Tramadol HCl [Ultram] 100 mg PO TID PRN 09/19/17 [History] Insulin LISPRO [Humalog Kwikpen U-100] 2 - 10 unit SQ TID PRN #1 insuln.pen [Rx] Cyanocobalamin (Vitamin B-12) [Vitamin B-12] 1,000 mcg PO DAILY 11/14/17 [ History] Nitroglycerin [Nitrostat] 0.4 mg SL PRN PRN 11/14/17 [History] Buprenorphine [Butrans] 1 patch TD QWEEK 11/25/17 [History] HydrOXYzine 10 mg PO TID PRN 30 Days #90 tablet 11/28/17 [Rx] Ondansetron ODT [Zofran ODT] 4 mg SL Q8HR PRN #10 tab.rapdis 01/09/18 [Rx] ARIPiprazole [Abilify] 10 mg PO DAILY 01/18/18 [History] Isosorbide MONOnitrate [Isosorbide Mononitrate ER] 120 mg PO DAILY 01/18/18 [ History] Levothyroxine Sodium [Levoxyl] 100 mcg PO DAILY 01/18/18 [History] Metoclopramide [Reglan] 10 mg PO TID 01/18/18 [History] [place]-3 Acid Ethyl Esters [Lovaza] 1 gm PO DAILY 01/18/18 [History] Tiotropium [Spiriva] 18 mcg IH DAILY 01/18/18 [History] metOLazone [Zaroxolyn] 5 mg PO Q48H 01/18/18 [History] Azithromycin [Zithromax Tri-Avery] 500 mg PO DAILY #1 tablet 01/19/18 [Rx] Bumetanide [Bumex] 2 mg PO BIDDIURETIC #30 tablet 01/19/18 [Rx] predniSONE [PredniSONE] 10 mg PO DAILY 12 Days tablet 05/24/18 [Rx] Allergies/Adverse Reactions: 3 Allergy/AdvReac Type Severity Reaction Status Date / Time cefazolin [From [facility]] Allergy Itching Verified 11/26/17 01:38 Date of admission: 01/18/18 06:52 Primary care physician: Isaac Morley MD - Constitutional Vitals: Temp Pulse Resp BP Pulse Ox 98.1 F 72 18 119/63 97 01/19/18 15:15 01/19/18 15:15 01/19/18 16:00 01/19/18 15:15 01/19/18 16:00 General appearance: Present: mild distress (Mild respiratory distress), A&O X 3 , morbidly obese, obese, answers questions appropriately - Head Head exam: Present: atraumatic, normocephalic - Eye Eye exam: Present: PERRL, conjuntiva pink, sclera anicteric Pupils: Present: PERRL - Neck Neck exam general surgery: Present: supple, trachea midline. Absent: lymphadenopathy - Respiratory Respiratory exam: Present: CTAB. Absent: accessory muscle use, rales, rhonchi, wheezes - Cardiovascular Cardiovascular exam: Present: RRR, +S1, +S2. Absent: diastolic murmur, gallop, rubs, systolic murmur - GI/Abdominal GI/Abdominal exam: Present: normal bowel sounds, soft, no peritoneal signs. Absent: distended, tenderness - Extremities Exam Extremities exam: Present: warm, radial pulses palpable and symmetrical. Absent : calf tenderness, cyanotic, pedal edema - Neurological Exam Neurological exam: Present: CN II-XII intact, oriented X3, no focal deficits. Absent: pronater drift, facial droop, speech deficit - Skin Skin exam: Present: dry. Absent: intact Additional comments: +1 pitting edema in both lower extremities, chronic dermatologic changes in both shins, erythematous changes - Patient Status Disposition: Home Health Service Condition: Fair - Discharge Instructions Instructions: Chronic Obstructive Pulmonary Disease (DC) Follow Up With: Isaac Morley MD [Primary Care Provider] - Additional Instructions: Follow-up appointments: If there is not an appointment listed below, please call your physician and schedule a follow-up appointment. If you have congestive heart failure and your symptoms return, make an appointment with your physician. Medication List: Carry an up to date list of medications you are taking at all time. We have given you an updated medication list including any new medications that you have been prescribed. Please provide that list to your primary provider Symptoms: If your condition changes or you experience any of the following symptoms, notify your physician immediately: Unusual or worsening pain, fever, persistent nausea and vomiting, bleeding, increase in swelling (especially in your legs), sudden weight gain, extreme dizziness, chest pain, increased drainage or redness from a wound or incision. Go to the emergency department if you experience a problem with breathing. Weights: If you have a history of swelling or shortness of breath, weigh yourself daily and notify your physician if you have a weight gain of two or more pounds in one day or 5 or more pounds in a week. If you experience any of the warning signs for stroke: Sudden numbness or weakness of the face, arm or leg; especially on one side of the body, sudden confusion, trouble speaking or understanding, sudden trouble seeing in one or both eyes, sudden trouble walking, dizziness, loss of balance or coordination, sudden sever headache with no cause; Call 911 or go to the emergency room. Stroke is a medical emergency. Some risk factors for stroke: Age, cigarette smoking, diabetes, excessive alcohol consumption, family history , high blood pressure, overweight, physical inactivity, prior stroke, heart attack, diagnosis of carotid artery stenosis or other artery disease. If you smoke, STOP: Smoking or tobacco use significantly increases your risk of heart and lung disease. Your chance of disease greatly increases if you continue to smoke. For more information, call the [place] tobacco quit line for smoking cessation QUIT-NOW ( ) - Diet and Activity Activity: increase activity as tolerated Diet: diabetic diet
--- NOTE | 2018-01-19 17:09 | Physician Discharge Referral ---
Home Health/Hosp Referral Info Transfer to: Home Health Provider in Charge Post Discharge: PCP - Diagnosis (1) COPD exacerbation Status: Chronic (2) Anxiety Status: Chronic (3) Depression Status: Chronic (4) GERD (gastroesophageal reflux disease) Status: Chronic (5) Hypothyroidism Status: Chronic (6) Anemia Status: Chronic (7) Chronic diastolic CHF (congestive heart failure) Status: Chronic (8) Morbid obesity with BMI of 40.0-44.9, adult Status: Chronic (9) CAD (coronary artery disease) Status: Chronic (10) Type 2 diabetes mellitus Status: Chronic (11) Hypertension Status: Chronic (12) HLD (hyperlipidemia) Status: Chronic (13) General weakness Status: Acute - Respiratory Orders Oxygen / L per min (2) Smoking Cessation: Smoking cessation has been advised. For more information, call the [place] Tobacco Quit Line at 6-528-BFEK-NOW. - Diet/Nutrition Diet/Nutrition Orders: No Added Salt (GOSIA) (diabetic diet) - Activity Activity: List: Follow-up with primary care physician within the next 7 days. Take one more dose of azithromycin on 01/20/2018. Continue Bumex, minimize fluid intake, prednisone taper as follows. 40 mg daily for 3 days, 30 mg for 3 days, 20 mg for 3 days, 10 mg for 3 days - Services Needed Following services are medically necessary services: Home Health Aide, Physical Therapy, Occupational Therapy - Transfer Medications Prescriptions: Azithromycin [Zithromax Tri-Avery] 500 mg PO DAILY #1 tablet Bumetanide [Bumex] 2 mg PO BIDDIURETIC #30 tablet predniSONE [PredniSONE] 10 mg PO DAILY 12 Days tablet Home Medications: metFORMIN [Glucophage] 1,000 mg PO BID 04/21/15 [History] Atorvastatin Calcium [Lipitor] 40 mg PO DAILY 02/04/16 [History] Montelukast [Singulair] 10 mg PO HS 02/04/16 [History] Oxygen 2 l NS AD PRN 03/17/16 [History] Insulin Glargine [Lantus] 80 unit SQ QPM 03/25/16 [History] Insulin Glargine [Lantus] 90 unit SQ QAM 03/25/16 [History] Albuterol Sulfate [Albuterol Inhaler] 2 puff IH Q4HR PRN 05/01/16 [History] Citalopram Hydrobromide [Citalopram HBr] 40 mg PO DAILY 05/01/16 [History] Raloxifene [Evista] 60 mg PO DAILY 05/01/16 [History] Fenofibrate Nanocrystallized [Tricor] 145 mg PO DAILY 06/15/16 [History] Clopidogrel [Plavix] 75 mg PO QAM tablet 06/18/16 [Rx] Aspirin 81 mg PO DAILY #60 tab.chew 12/06/16 [Rx] Mag Hydrox/Al Hydrox/Simeth [Maalox] 30 ml PO Q6H PRN 30 Days oral.susp [Rx] Cholecalciferol (D-3) [Vitamin D] 1,000 unit PO DAILY 04/27/17 [History] Metoprolol XL (24 HR) Succ [Toprol Xl] 50 mg PO DAILY 04/27/17 [History] clonazePAM [Klonopin] 0.5 mg PO BID PRN 05/28/17 [History] Magnesium Oxide [Mag-Ox] 400 mg PO DAILY #0 tab 05/29/17 [Rx] Bumetanide 2 mg PO BID 06/11/17 [History] Gabapentin [Neurontin] 800 mg PO TID 06/11/17 [History] Omeprazole [PriLOSEC] 20 mg PO DAILY 06/11/17 [History] Potassium Chloride 20 meq PO BID 06/11/17 [History] Tizanidine HCl [Zanaflex] 4 mg PO TID PRN 06/11/17 [History] Nortriptyline [Pamelor] 25 mg PO HS 06/27/17 [History] DiphenhydraMINE [Benadryl] 25 mg PO HS 08/29/17 [History] Buspirone HCl [Buspar] 20 mg PO BID 09/12/17 [History] Tramadol HCl [Ultram] 100 mg PO TID PRN 09/19/17 [History] Insulin LISPRO [Humalog Kwikpen U-100] 2 - 10 unit SQ TID PRN #1 insuln.pen [Rx] Cyanocobalamin (Vitamin B-12) [Vitamin B-12] 1,000 mcg PO DAILY 11/14/17 [ History] Nitroglycerin [Nitrostat] 0.4 mg SL PRN PRN 11/14/17 [History] Buprenorphine [Butrans] 1 patch TD QWEEK 11/25/17 [History] HydrOXYzine 10 mg PO TID PRN 30 Days #90 tablet 11/28/17 [Rx] Ondansetron ODT [Zofran ODT] 4 mg SL Q8HR PRN #10 tab.rapdis 01/09/18 [Rx] ARIPiprazole [Abilify] 10 mg PO DAILY 01/18/18 [History] Isosorbide MONOnitrate [Isosorbide Mononitrate ER] 120 mg PO DAILY 01/18/18 [ History] Levothyroxine Sodium [Levoxyl] 100 mcg PO DAILY 01/18/18 [History] Metoclopramide [Reglan] 10 mg PO TID 01/18/18 [History] [place]-3 Acid Ethyl Esters [Lovaza] 1 gm PO DAILY 01/18/18 [History] Tiotropium [Spiriva] 18 mcg IH DAILY 01/18/18 [History] metOLazone [Zaroxolyn] 5 mg PO Q48H 01/18/18 [History] Azithromycin [Zithromax Tri-Avery] 500 mg PO DAILY #1 tablet 01/19/18 [Rx] Bumetanide [Bumex] 2 mg PO BIDDIURETIC #30 tablet 01/19/18 [Rx] predniSONE [PredniSONE] 10 mg PO DAILY 12 Days tablet 01/19/18 [Rx] Allergies/Adverse Reactions: 3 Allergy/AdvReac Type Severity Reaction Status Date / Time cefazolin [From [facility]] Allergy Itching Verified 11/26/17 01:38 Certification: Further, I certify that my clinical findings support that this patient is homebound (i.e. absences from home require considerable and taxing effort and are for medical reasons or gnosticist services or infrequently or short duration when for other reasons) because: Homebound Reason: Patient requires assistance of a person or device to safely leave home Attestation: My signature below is to certify that this patient is under my care and that I, or nurse practitioner, or a physician's project construction assistant manager working with me, has a face-to -face encounter with this patient.
== END 2018-01-19 18:01 | disposition home health service (06) ==
LOC: EMEROO 03:13 → 2SOUTHHOLD 03:13 → 3BNU 18:59
PROVIDERS: ADMIT Internal Medicine; ATTEND Internal Medicine

== ENCOUNTER 2018-02-14 01:19 | Observation (INO) ==
--- NOTE | 2018-02-14 01:29 | Emergency Department Note ---
Disposition Clinical Impression: Acute exacerbation of chronic obstructive pulmonary disease (COPD) Acute and chronic respiratory failure Qualifiers: Respiratory failure complication: hypoxia Qualified Code(s): J96.21 - Acute and chronic respiratory failure with hypoxia Disposition: Admitted As Inpatient Condition: Fair Referrals: Isaac Morley MD [Primary Care Provider] - Time of Disposition: 03:19 General Adult HPI - General Stated complaint: Se Time Seen by Provider: 02/14/18 01:22 Nursing Notes Reviewed: Yes Vital Signs Reviewed: Yes - History of Present Illness HPI Narrative: 62-year-old female presents from home via EMS for evaluation of dyspnea. Onset 2 days ago. At that time, she called [id number], her vitals were normal, and she refused transport to the emergency department. Today patient notes that she was outside in the heat and feels that she overextended herself. She has been wearing 3 L nasal cannula (baseline 2 L nasal cannula at all times) and her symptoms are not improved with her home albuterol. She has associated productive cough which is different from her baseline, chest heaviness. Patient notes 5 lb weight gain overnight. Patient also notes suprapubic pain and pain with urination. PMH: Congestive heart failure, ACS with CAD status post stent 4, hypertension, hyperlipidemia, diabetes, COPD [place] habits: Currently everyday smoker ROS: Positive: As above Negative: Fever, chills, nausea, vomiting, palpitations, unusual back pain, numbness/tingling/weakness - Related Data Home Medications Medication Instructions Recorded Confirmed metFORMIN [Glucophage] 1,000 mg PO BID 04/21/15 01/18/18 Atorvastatin Calcium [Lipitor] 40 mg PO DAILY 02/04/16 01/18/18 Montelukast [Singulair] 10 mg PO HS 02/04/16 01/18/18 Oxygen 2 l NS AD PRN 03/17/16 01/18/18 Insulin Glargine [Lantus] 80 unit SQ QPM 03/25/16 01/18/18 Insulin Glargine [Lantus] 90 unit SQ QAM 03/25/16 01/18/18 Albuterol Sulfate [Albuterol 2 puff IH Q4HR PRN 05/01/16 01/18/18 Inhaler] Citalopram Hydrobromide 40 mg PO DAILY 05/01/16 01/18/18 [Citalopram HBr] Raloxifene [Evista] 60 mg PO DAILY 05/01/16 01/18/18 Fenofibrate Nanocrystallized 145 mg PO DAILY 06/15/16 01/18/18 [Tricor] Cholecalciferol (D-3) [Vitamin D] 1,000 unit PO DAILY 04/27/17 01/18/18 Metoprolol XL (24 HR) Succ [Toprol 50 mg PO DAILY 04/27/17 01/18/18 Xl] clonazePAM [Klonopin] 0.5 mg PO BID PRN 05/28/17 01/18/18 Bumetanide 2 mg PO BID 06/11/17 01/18/18 Gabapentin [Neurontin] 800 mg PO TID 06/11/17 01/18/18 Omeprazole [PriLOSEC] 20 mg PO DAILY 06/11/17 01/18/18 Potassium Chloride 20 meq PO BID 06/11/17 01/18/18 Tizanidine HCl [Zanaflex] 4 mg PO TID PRN 06/11/17 01/18/18 Nortriptyline [Pamelor] 25 mg PO HS 06/27/17 01/18/18 DiphenhydraMINE [Benadryl] 25 mg PO HS 08/29/17 01/18/18 Buspirone HCl [Buspar] 20 mg PO BID 09/12/17 01/18/18 Tramadol HCl [Ultram] 100 mg PO TID PRN 09/19/17 01/18/18 Cyanocobalamin (Vitamin B-12) 1,000 mcg PO DAILY 11/14/17 01/18/18 [Vitamin B-12] Nitroglycerin [Nitrostat] 0.4 mg SL PRN PRN 11/14/17 01/18/18 Buprenorphine [Butrans] 1 patch TD QWEEK 11/25/17 01/18/18 ARIPiprazole [Abilify] 10 mg PO DAILY 01/18/18 01/18/18 Isosorbide MONOnitrate [Isosorbide 120 mg PO DAILY 01/18/18 01/18/18 Mononitrate ER] Levothyroxine Sodium [Levoxyl] 100 mcg PO DAILY 01/18/18 01/18/18 Metoclopramide [Reglan] 10 mg PO TID 01/18/18 01/18/18 [place]-3 Acid Ethyl Esters [Lovaza] 1 gm PO DAILY 01/18/18 01/18/18 Tiotropium [Spiriva] 18 mcg IH DAILY 01/18/18 01/18/18 metOLazone [Zaroxolyn] 5 mg PO Q48H 01/18/18 01/18/18 Previous Rx's Medication Instructions Recorded Clopidogrel [Plavix] 75 mg PO QAM tablet 06/18/16 Aspirin 81 mg PO DAILY #60 tab.chew 12/06/16 Mag Hydrox/Al Hydrox/Simeth 30 ml PO Q6H PRN 30 Days oral.susp 03/26/17 [Maalox] Magnesium Oxide [Mag-Ox] 400 mg PO DAILY #0 tab 05/29/17 Insulin LISPRO [Humalog Kwikpen 2 - 10 unit SQ TID PRN #1 10/19/17 U-100] insuln.pen HydrOXYzine 10 mg PO TID PRN 30 Days #90 tablet 11/28/17 Ondansetron ODT [Zofran ODT] 4 mg SL Q8HR PRN #10 tab.rapdis 01/09/18 Azithromycin [Zithromax Tri-Avery] 500 mg PO DAILY #1 tablet 01/19/18 Bumetanide [Bumex] 2 mg PO BIDDIURETIC #30 tablet 01/19/18 predniSONE [PredniSONE] 10 mg PO DAILY 12 Days tablet 01/19/18 Allergies Allergy/AdvReac Type Severity Reaction Status Date / Time cefazolin [From [facility]] Allergy Itching Verified 11/26/17 01:38 All systems ED: reviewed and negative except as stated. Review of Systems: As Per HPI Past Medical History - Past Medical History Medical history: Reports: arthritis, CHF, COPD, coronary artery disease, diabetes, GERD, hyperlipidemia, hypertension, osteoporosis, renal disease, thyroid disease, TIA, venous stasis, other Surgical history: Reports: angioplasty/stent, , cholecystectomy, hysterectomy Psychiatric history: Reports: anxiety, bipolar, depression, panic disorder [employer] DISPATCHER history: Reports: bilateral tubal ligation - Social History Smoking Status: Former smoker Smokeless Tobacco Status: No Alcohol use: Reports: none Drug use: Reports: none Physical Exam Vital Signs Reviewed General: Patient is alert, oriented, and in mild respiratory distress-mild accessory muscle use, requiring 3 L submental oxygen. Head: atraumatic, normocephalic Eye: normal appearance, no scleral icterus, no conjunctival injection ENT: mucous membranes moist, normal external ear exam Neck: normal inspection, trachea midline, full ROM Chest: normal inspection, symmetric chest rise Respiratory: Poor respiratory effort. Long expiratory phase. Bilateral breath sounds are diminished with scattered wheeze and faint crackles. Cardiovascular: Regular rate and rhythm. No clicks, rubs, gallops, or murmors. Normal heart sounds. Lateral radial pulses 2/4 equal. 1+ bilateral pitting edema in the lower extremities with venous stasis changes. Abdomen: Morbidly obese. Bowel sounds present normoactive x-4 quadrants. Abdomen is soft, nondistended. Mild suprapubic tenderness. No guarding or rebound. Musculoskeletal: Spontaneously moving all extremities. Skin: warm, dry, intact. Neuro: Alert and oriented x4. Sensation light touch intact. Psych: Patient's affect is appropriate for situation. Course Course Narrative: Patient is surgeon negative on intake vitals. Differential includes acute exacerbation of COPD, pneumonia, acute exacerbation of congestive heart failure, ACS, urinary tract infection. EKG dated 02/14/18 at 01:22 interpreted as sinus rhythm with rate of 88. Normal intervals of DE 134, QRS 94, QTC 4:15. Normal axis. Low voltage in leads 2 and aVF. Polymorphic P waves consistent with pulmonary disease. Nonspecific ST -T changes. Compared to previous dated 09/10/2012 showing ischemic changes or comparison. After triple dose of DuoNeb's, patient's wheezing and oxygen requirements did not improve. Chest x-ray is not concerning for pneumonia. EKG shows no acute ischemic changes, troponin is normal thinking ACS less likely in the context of the duration this patient symptoms (progressive over 2 days) BNP is not elevated and CHF less likely. Urinalysis is not concerning for UTI. Have given Levaquin and Solu-Medrol to begin treatment for working diagnosis of acute exacerbation of COPD. I discussed the patient with the admitting hospitalist, Dr. Lopez, who agrees to accept the patient for continued evaluation and management. Vital Signs Temperature 98.3 F 02/14/18 01:20 Pulse Rate 90 02/14/18 01:20 Respiratory Rate 20 02/14/18 01:20 Blood Pressure 143/72 02/14/18 01:20 O2 Sat by Pulse Oximetry 97 02/14/18 01:20 Temperature 98.3 F 02/14/18 01:20 Pulse Rate 100 02/14/18 02:37 Respiratory Rate 20 02/14/18 02:37 Blood Pressure 133/64 02/14/18 02:37 O2 Sat by Pulse Oximetry 98 02/14/18 02:37 Oxygen Delivery Oxygen Delivery Nasal Cannula Medical Decision Making - Lab Data Result diagrams: 02/14/18 01:59 02/14/18 01:59 Lab Results 02/14/18 02/14/18 02/14/18 Range/Units 01:40 01:59 01:59 WBC 12.0 H (4.3-11.1) K/mcL RBC 4.30 (3.82-4.97) M/mcL Hgb 10.3 L (11.5-15.4) g/dL Hct 34.5 L (35.3-44.9) % MCV 80.2 L (83.0-100.0) fL MCH 24.0 L (28.0-33.3) pg MCHC 29.9 L (31.6-35.5) g/dL RDW 17.2 H (11.5-14.5) % Plt Count 308 (140-400) K/mcL MPV 11.4 (9.4-12.4) fL Immature Gran % 1.2 (0-4) % Seg Neutrophils % 71.1 % Lymphocytes % 19.6 % Monocytes % 5.3 % Eosinophils % 2.3 % Basophils % 0.5 % Neutrophils # 8.5 (1.6-8.9) K/mcL Lymphocytes # 2.3 (0.6-4.6) K/mcL Monocytes # 0.6 (0.0-1.3) K/mcL Eosinophils # 0.3 (0.0-0.6) K/mcL Basophils # 0.1 (0.0-0.2) K/mcL Nucleated RBCs/100 WBC 0.3 H (0) /100 WBC Sodium 139 (136-145) mEq/L Potassium 4.1 (3.5-5.1) mEq/L Chloride 105 (98-107) mEq/L Carbon Dioxide 26 (23-29) mEq/L BUN 16 (8-23) mg/dL Creatinine 0.84 (0.60-1.20) mg/dL Est GFR ( Amer) > 60 (> 60) Est GFR (Non-Af Amer) > 60 (> 60) BUN/Creatinine Ratio 19 (6-26) Glucose 141 H (70-105) mg/dL Calculated Osmolality 292 (280-300) Calcium 9.2 (8.6-10.3) mg/dL Troponin I < 0.03 (< 0.04) ng/mL B-Natriuretic Peptide (Less than 100) pg/mL Urine Color Yellow (Yellow) Urine Clarity Clear (Clear) Urine pH 6.5 (5.0-8.0) pH Units Ur Specific [place] 1.010 (1.010-1.025) Urine Protein Negative (Neg-Trace) mg/dL Urine Glucose (UA) Normal (Normal) mg/dL Urine Ketones Negative (Negative) mg/dL Urine Blood Negative (Negative) Urine Nitrite Negative (Negative) Urine Bilirubin Negative (Negative) Urine Urobilinogen Normal (Normal) mg/dL Ur Leukocyte Esterase Small H (Negative) Urine Microscopic RBC 3-5 H (0-3) per hpf Urine Microscopic WBC 3-5 H (0-3) per hpf Ur Squamous Epith Cells Moderate H (None-Few) per lpf Urine Bacteria Many H (None-Few) per hpf Hyaline Casts None Seen (None-Few) per lpf Ur Culture Indicated? YES A (NO) 02/14/18 Range/Units 01:59 WBC (4.3-11.1) K/mcL RBC (3.82-4.97) M/mcL Hgb (11.5-15.4) g/dL Hct (35.3-44.9) % MCV (83.0-100.0) fL MCH (28.0-33.3) pg MCHC (31.6-35.5) g/dL RDW (11.5-14.5) % Plt Count (140-400) K/mcL MPV (9.4-12.4) fL Immature Gran % (0-4) % Seg Neutrophils % % Lymphocytes % % Monocytes % % Eosinophils % % Basophils % % Neutrophils # (1.6-8.9) K/mcL Lymphocytes # (0.6-4.6) K/mcL Monocytes # (0.0-1.3) K/mcL Eosinophils # (0.0-0.6) K/mcL Basophils # (0.0-0.2) K/mcL Nucleated RBCs/100 WBC (0) /100 WBC Sodium (136-145) mEq/L Potassium (3.5-5.1) mEq/L Chloride (98-107) mEq/L Carbon Dioxide (23-29) mEq/L BUN (8-23) mg/dL Creatinine (0.60-1.20) mg/dL Est GFR ( Amer) (> 60) Est GFR (Non-Af Amer) (> 60) BUN/Creatinine Ratio (6-26) Glucose (70-105) mg/dL Calculated Osmolality (280-300) Calcium (8.6-10.3) mg/dL Troponin I (< 0.04) ng/mL B-Natriuretic Peptide 79 (Less than 100) pg/mL Urine Color (Yellow) Urine Clarity (Clear) Urine pH (5.0-8.0) pH Units Ur Specific [place] (1.010-1.025) Urine Protein (Neg-Trace) mg/dL Urine Glucose (UA) (Normal) mg/dL Urine Ketones (Negative) mg/dL Urine Blood (Negative) Urine Nitrite (Negative) Urine Bilirubin (Negative) Urine Urobilinogen (Normal) mg/dL Ur Leukocyte Esterase (Negative) Urine Microscopic RBC (0-3) per hpf Urine Microscopic WBC (0-3) per hpf Ur Squamous Epith Cells (None-Few) per lpf Urine Bacteria (None-Few) per hpf Hyaline Casts (None-Few) per lpf Ur Culture Indicated? (NO)
[2018-02-14] MEDS ORDERED: Ipratropium/Albuterol Neb 3 ML IH ONE (01:30)
[2018-02-14 01:51] LABS: Bilirubin,Urine Negative (Negative); Blood,Urine Negative (Negative); Clarity,Urine Clear (Clear); Color,Urine Yellow (Yellow); Glucose,Urine (UA) Normal (Normal); Ketones,Urine Negative (Negative); Leukocyte Esterase,Urine Small (Negative); Nitrite,Urine Negative (Negative); PH,Urine 6.5 pH Units (5.0-8.0); Protein,Urine Negative (Neg-Trace); Urobilinogen,Urine Normal (Normal)
[2018-02-14 01:54] LABS: Bacteria,Urine Many per hpf (None-Few); Hyaline Casts,Urine None Seen per lpf (None-Few); Squamous Epithelial Cell,Urine Moderate per lpf (None-Few)
[2018-02-14 02:09] LABS: Basophils # 0.1 K/mcL (0.0-0.2); Basophils % 0.5 %; Eosinophils # 0.3 K/mcL (0.0-0.6); Eosinophils % 2.3 %; Hematocrit 34.5 % (35.3-44.9); Hemoglobin 10.3 g/dL (11.5-15.4); Immature Granulocytes % 1.2 % (0-4); Lymphocytes # 2.3 K/mcL (0.6-4.6); Lymphocytes % 19.6 %; Mean Corpuscular HGB Conc 29.9 g/dL (31.6-35.5); Mean Corpuscular Volume 80.2 fL (83.0-100.0); Mean Platelet Volume 11.4 fL (9.4-12.4); Monocytes # 0.6 K/mcL (0.0-1.3); Monocytes % 5.3 %; Neutrophils # 8.5 K/mcL (1.6-8.9); Nucleated Red Blood Cells 0.3 /100 WBC (0); Platelet Count 308 K/mcL (140-400); Red Cell Distribution Width 17.2 % (11.5-14.5); Segmented Neutrophils % 71.1 %
[2018-02-14 02:34] LABS: BUN/Creatinine Ratio 19 (6-26); Blood Urea Nitrogen 16 mg/dL (8-23); Calcium 9.2 mg/dL (8.6-10.3); Carbon Dioxide 26 mEq/L (23-29); Chloride 105 mEq/L (98-107); Glucose 141 mg/dL (70-105); Osmolality,Calculated 292 (280-300); Potassium 4.1 mEq/L (3.5-5.1); Sodium 139 mEq/L (136-145); eGFR For African Americans > 60 (> 60); eGFR For Non-African Americans > 60 (> 60)
[2018-02-14 02:36] LABS: Troponin I < 0.03 ng/mL (< 0.04)
[2018-02-14] MEDS ORDERED: methylPREDNISolone 125 MG/2 ML VIAL IVP ONE (03:09)
[2018-02-14] MEDS ORDERED: Levofloxacin 500 MG/100 ML 500 MG/100 ML BAG IVPB ONE (03:09)
--- NOTE | 2018-02-14 03:26 | Emergency Department Note ---
Disposition Clinical Impression: Acute exacerbation of chronic obstructive pulmonary disease (COPD) Acute and chronic respiratory failure Qualifiers: Respiratory failure complication: hypoxia Qualified Code(s): J96.21 - Acute and chronic respiratory failure with hypoxia Disposition: Admitted As Inpatient Condition: Fair Referrals: Isaac Morley MD [Primary Care Provider] - General Adult HPI - General Chief complaint: ED Shortness of Breath/Dyspnea Stated complaint: Se Time Seen by Provider: 02/14/18 01:22 Source: patient Limitations: no limitations - History of Present Illness Pain Scale: 7 - Related Data Home Medications Medication Instructions Recorded Confirmed metFORMIN [Glucophage] 1,000 mg PO BID 04/21/15 01/18/18 Atorvastatin Calcium [Lipitor] 40 mg PO DAILY 02/04/16 01/18/18 Montelukast [Singulair] 10 mg PO HS 02/04/16 01/18/18 Oxygen 2 l NS AD PRN 03/17/16 01/18/18 Insulin Glargine [Lantus] 80 unit SQ QPM 03/25/16 01/18/18 Insulin Glargine [Lantus] 90 unit SQ QAM 03/25/16 01/18/18 Albuterol Sulfate [Albuterol 2 puff IH Q4HR PRN 05/01/16 01/18/18 Inhaler] Citalopram Hydrobromide 40 mg PO DAILY 05/01/16 01/18/18 [Citalopram HBr] Raloxifene [Evista] 60 mg PO DAILY 05/01/16 01/18/18 Fenofibrate Nanocrystallized 145 mg PO DAILY 06/15/16 01/18/18 [Tricor] Cholecalciferol (D-3) [Vitamin D] 1,000 unit PO DAILY 04/27/17 01/18/18 Metoprolol XL (24 HR) Succ [Toprol 50 mg PO DAILY 04/27/17 01/18/18 Xl] clonazePAM [Klonopin] 0.5 mg PO BID PRN 05/28/17 01/18/18 Bumetanide 2 mg PO BID 06/11/17 01/18/18 Gabapentin [Neurontin] 800 mg PO TID 06/11/17 01/18/18 Omeprazole [PriLOSEC] 20 mg PO DAILY 06/11/17 01/18/18 Potassium Chloride 20 meq PO BID 06/11/17 01/18/18 Tizanidine HCl [Zanaflex] 4 mg PO TID PRN 06/11/17 01/18/18 Nortriptyline [Pamelor] 25 mg PO HS 06/27/17 01/18/18 DiphenhydraMINE [Benadryl] 25 mg PO HS 08/29/17 01/18/18 Buspirone HCl [Buspar] 20 mg PO BID 09/12/17 01/18/18 Tramadol HCl [Ultram] 100 mg PO TID PRN 09/19/17 01/18/18 Cyanocobalamin (Vitamin B-12) 1,000 mcg PO DAILY 11/14/17 01/18/18 [Vitamin B-12] Nitroglycerin [Nitrostat] 0.4 mg SL PRN PRN 11/14/17 01/18/18 Buprenorphine [Butrans] 1 patch TD QWEEK 11/25/17 01/18/18 ARIPiprazole [Abilify] 10 mg PO DAILY 01/18/18 01/18/18 Isosorbide MONOnitrate [Isosorbide 120 mg PO DAILY 01/18/18 01/18/18 Mononitrate ER] Levothyroxine Sodium [Levoxyl] 100 mcg PO DAILY 01/18/18 01/18/18 Metoclopramide [Reglan] 10 mg PO TID 01/18/18 01/18/18 [place]-3 Acid Ethyl Esters [Lovaza] 1 gm PO DAILY 01/18/18 01/18/18 Tiotropium [Spiriva] 18 mcg IH DAILY 01/18/18 01/18/18 metOLazone [Zaroxolyn] 5 mg PO Q48H 01/18/18 01/18/18 Previous Rx's Medication Instructions Recorded Clopidogrel [Plavix] 75 mg PO QAM tablet 06/18/16 Aspirin 81 mg PO DAILY #60 tab.chew 12/06/16 Mag Hydrox/Al Hydrox/Simeth 30 ml PO Q6H PRN 30 Days oral.susp 03/26/17 [Maalox] Magnesium Oxide [Mag-Ox] 400 mg PO DAILY #0 tab 05/29/17 Insulin LISPRO [Humalog Kwikpen 2 - 10 unit SQ TID PRN #1 10/19/17 U-100] insuln.pen HydrOXYzine 10 mg PO TID PRN 30 Days #90 tablet 11/28/17 Ondansetron ODT [Zofran ODT] 4 mg SL Q8HR PRN #10 tab.rapdis 01/09/18 Azithromycin [Zithromax Tri-Avery] 500 mg PO DAILY #1 tablet 01/19/18 Bumetanide [Bumex] 2 mg PO BIDDIURETIC #30 tablet 01/19/18 predniSONE [PredniSONE] 10 mg PO DAILY 12 Days tablet 01/19/18 Allergies Allergy/AdvReac Type Severity Reaction Status Date / Time cefazolin [From [facility]] Allergy Itching Verified 11/26/17 01:38 Past Medical History - Past Medical History Medical history: Reports: arthritis, CHF, COPD, coronary artery disease, diabetes, GERD, hyperlipidemia, hypertension, osteoporosis, renal disease, thyroid disease, TIA, venous stasis, other Surgical history: Reports: angioplasty/stent, , cholecystectomy, hysterectomy Psychiatric history: Reports: anxiety, bipolar, depression, panic disorder [employer]DER history: Reports: bilateral tubal ligation - Social History Smoking Status: Former smoker Smokeless Tobacco Status: No Alcohol use: Reports: none Drug use: Reports: none Physical Exam - General Limitations: no limitations General appearance: alert, in no apparent distress Course Vital Signs Temperature 98.3 F 02/14/18 01:20 Pulse Rate 90 02/14/18 01:20 Respiratory Rate 20 02/14/18 01:20 Blood Pressure 143/72 02/14/18 01:20 O2 Sat by Pulse Oximetry 97 02/14/18 01:20 Temperature 98.3 F 02/14/18 01:20 Pulse Rate 100 02/14/18 02:37 Respiratory Rate 20 02/14/18 02:37 Blood Pressure 133/64 02/14/18 02:37 O2 Sat by Pulse Oximetry 98 02/14/18 02:37 Oxygen Delivery Oxygen Delivery Nasal Cannula Medical Decision Making - Lab Data Result diagrams: 02/14/18 01:59 02/14/18 01:59 Lab Results 02/14/18 02/14/18 02/14/18 Range/Units 01:40 01:59 01:59 WBC 12.0 H (4.3-11.1) K/mcL RBC 4.30 (3.82-4.97) M/mcL Hgb 10.3 L (11.5-15.4) g/dL Hct 34.5 L (35.3-44.9) % MCV 80.2 L (83.0-100.0) fL MCH 24.0 L (28.0-33.3) pg MCHC 29.9 L (31.6-35.5) g/dL RDW 17.2 H (11.5-14.5) % Plt Count 308 (140-400) K/mcL MPV 11.4 (9.4-12.4) fL Immature Gran % 1.2 (0-4) % Seg Neutrophils % 71.1 % Lymphocytes % 19.6 % Monocytes % 5.3 % Eosinophils % 2.3 % Basophils % 0.5 % Neutrophils # 8.5 (1.6-8.9) K/mcL Lymphocytes # 2.3 (0.6-4.6) K/mcL Monocytes # 0.6 (0.0-1.3) K/mcL Eosinophils # 0.3 (0.0-0.6) K/mcL Basophils # 0.1 (0.0-0.2) K/mcL Nucleated RBCs/100 WBC 0.3 H (0) /100 WBC Sodium 139 (136-145) mEq/L Potassium 4.1 (3.5-5.1) mEq/L Chloride 105 (98-107) mEq/L Carbon Dioxide 26 (23-29) mEq/L BUN 16 (8-23) mg/dL Creatinine 0.84 (0.60-1.20) mg/dL Est GFR ( Amer) > 60 (> 60) Est GFR (Non-Af Amer) > 60 (> 60) BUN/Creatinine Ratio 19 (6-26) Glucose 141 H (70-105) mg/dL Calculated Osmolality 292 (280-300) Calcium 9.2 (8.6-10.3) mg/dL Troponin I < 0.03 (< 0.04) ng/mL B-Natriuretic Peptide (Less than 100) pg/mL Urine Color Yellow (Yellow) Urine Clarity Clear (Clear) Urine pH 6.5 (5.0-8.0) pH Units Ur Specific [place] 1.010 (1.010-1.025) Urine Protein Negative (Neg-Trace) mg/dL Urine Glucose (UA) Normal (Normal) mg/dL Urine Ketones Negative (Negative) mg/dL Urine Blood Negative (Negative) Urine Nitrite Negative (Negative) Urine Bilirubin Negative (Negative) Urine Urobilinogen Normal (Normal) mg/dL Ur Leukocyte Esterase Small H (Negative) Urine Microscopic RBC 3-5 H (0-3) per hpf Urine Microscopic WBC 3-5 H (0-3) per hpf Ur Squamous Epith Cells Moderate H (None-Few) per lpf Urine Bacteria Many H (None-Few) per hpf Hyaline Casts None Seen (None-Few) per lpf Ur Culture Indicated? YES A (NO) 02/14/18 Range/Units 01:59 WBC (4.3-11.1) K/mcL RBC (3.82-4.97) M/mcL Hgb (11.5-15.4) g/dL Hct (35.3-44.9) % MCV (83.0-100.0) fL MCH (28.0-33.3) pg MCHC (31.6-35.5) g/dL RDW (11.5-14.5) % Plt Count (140-400) K/mcL MPV (9.4-12.4) fL Immature Gran % (0-4) % Seg Neutrophils % % Lymphocytes % % Monocytes % % Eosinophils % % Basophils % % Neutrophils # (1.6-8.9) K/mcL Lymphocytes # (0.6-4.6) K/mcL Monocytes # (0.0-1.3) K/mcL Eosinophils # (0.0-0.6) K/mcL Basophils # (0.0-0.2) K/mcL Nucleated RBCs/100 WBC (0) /100 WBC Sodium (136-145) mEq/L Potassium (3.5-5.1) mEq/L Chloride (98-107) mEq/L Carbon Dioxide (23-29) mEq/L BUN (8-23) mg/dL Creatinine (0.60-1.20) mg/dL Est GFR ( Amer) (> 60) Est GFR (Non-Af Amer) (> 60) BUN/Creatinine Ratio (6-26) Glucose (70-105) mg/dL Calculated Osmolality (280-300) Calcium (8.6-10.3) mg/dL Troponin I (< 0.04) ng/mL B-Natriuretic Peptide 79 (Less than 100) pg/mL Urine Color (Yellow) Urine Clarity (Clear) Urine pH (5.0-8.0) pH Units Ur Specific [place] (1.010-1.025) Urine Protein (Neg-Trace) mg/dL Urine Glucose (UA) (Normal) mg/dL Urine Ketones (Negative) mg/dL Urine Blood (Negative) Urine Nitrite (Negative) Urine Bilirubin (Negative) Urine Urobilinogen (Normal) mg/dL Ur Leukocyte Esterase (Negative) Urine Microscopic RBC (0-3) per hpf Urine Microscopic WBC (0-3) per hpf Ur Squamous Epith Cells (None-Few) per lpf Urine Bacteria (None-Few) per hpf Hyaline Casts (None-Few) per lpf Ur Culture Indicated? (NO) Attestation Statement - Attestation Attestation: I examined this patient and my medical decision-making was reviewed with the Resident Physician. I agree with the documented findings, disposition and treatment plan as described except to the extent set forth below. Pt w h/o CHF & COPD had some improvement w nebs in ED, no BNP elevation, CXR showing improvement in interstitial markings seen on prior CXR. Agree with Dr. Hastings's assessment and management.
--- NOTE | 2018-02-14 05:23 | Internal Med History&Physical ---
<Sofía Holley - Last Filed: 02/14/18 06:04> Date of Encounter: 02/14/18 Time of Encounter: 05:30 Internal Medicine - H&P: HPI Chief complaint: SOB History of present illness: Ms. Lynch is a 62 year old female with a past medical history of COPD 2L oxygen dependent, DM 2 insulin dependent, CHF, CAD s/p 4 stents, and HTN who presented to the ED with SOB. Two days ago, patient began to have SOB and increased her oxygen to 3L today. Associated sore throat, congestion in her chest, productive cough, FORBES, and earache. Denies rhinorrhea. Patient was last hospitalized 3 weeks for COPD exacerbation. Patient has been taking medications as prescribed. She was using her albuterol inhaler every 4 hours. She lost 25lbs last month but has gained 5lbs overnight. Admits to associated worsening orthopnea from 2 pillows to 3 pillows. Patient has not been keeping a low sodium diet. Denies fever, N/V, diarrhea. Upon arrival to the ED, patient was tachypneic at 20bpm on NC 3L. patient's white blood cell count 12.0, hemoglobin 10.3 (at baseline), MCV 80.2, BNP 79, troponin negative. EKG showed no acute ischemic changes. Chest x-ray shows mild interstitial edema decreased from prior exam. Patient was given triple DuoNeb treatment, Levaquin, and Solu-Medrol 125 mg IV. Patient was admitted to the floor for acute COPD exacerbation. Past Med Surg Social Fam HX - Past Medical History Medical history: arthritis, CHF, COPD, coronary artery disease, diabetes, GERD, hyperlipidemia, hypertension, osteoporosis, renal disease, thyroid disease, TIA , venous stasis, other Additional medical history: recent UTI Psychiatric history: anxiety, bipolar, depression, panic disorder - Past Surgical History Surgical History: angioplasty/stent, , cholecystectomy, hysterectomy Additional surgical history: 4 cardiac stents, tubal ligation - Social History Smoking Status: Former smoker Smokeless Tobacco Status: No Alcohol use: none Drug use: none - Family History Brother Adopted: No Family Member Ethnicity: Non- Living Status: Hx Family Cardiac Disorders: Yes Father Adopted: No Family Member Ethnicity: Non- Living Status: Hx Family Cardiac Disorders: Yes (HD, HLD, HTN, OR, Triple Bypass) Hx Family Neurologic Disorders: Yes (Dementia) Mother Adopted: No Family Member Ethnicity: Non- Living Status: Hx Family Cardiac Disorders: Yes (OR, HTN, HLD, Strokes x5) Hx Family Respiratory Disorders: No Hx Family Cancer: No Hx Family GI Disorders: No Hx Family Endocrine Disorder: Yes (DM) Hx Family Neuromuscular Disorders: No Hx Family Neurologic Disorders: Yes (Strokes) Hx Family HEENT Disorders: No Hx Family Autoimmune Disorders: No Internal Medicine - H&P: Meds metFORMIN [Glucophage] 1,000 mg PO BID 04/21/15 [History] Atorvastatin Calcium [Lipitor] 40 mg PO DAILY 02/04/16 [History] Montelukast [Singulair] 10 mg PO HS 02/04/16 [History] Oxygen 2 l NS AD PRN 03/17/16 [History] Insulin Glargine [Lantus] 80 unit SQ QPM 03/25/16 [History] Insulin Glargine [Lantus] 90 unit SQ QAM 03/25/16 [History] Albuterol Sulfate [Albuterol Inhaler] 2 puff IH Q4HR PRN 05/01/16 [History] Citalopram Hydrobromide [Citalopram HBr] 40 mg PO DAILY 05/01/16 [History] Raloxifene [Evista] 60 mg PO DAILY 05/01/16 [History] Fenofibrate Nanocrystallized [Tricor] 145 mg PO DAILY 06/15/16 [History] Clopidogrel [Plavix] 75 mg PO QAM tablet 06/18/16 [Rx] Aspirin 81 mg PO DAILY #60 tab.chew 12/06/16 [Rx] Mag Hydrox/Al Hydrox/Simeth [Maalox] 30 ml PO Q6H PRN 30 Days oral.susp [Rx] Cholecalciferol (D-3) [Vitamin D] 1,000 unit PO DAILY 04/27/17 [History] Metoprolol XL (24 HR) Succ [Toprol Xl] 50 mg PO DAILY 04/27/17 [History] clonazePAM [Klonopin] 0.5 mg PO BID PRN 05/28/17 [History] Magnesium Oxide [Mag-Ox] 400 mg PO DAILY #0 tab 05/29/17 [Rx] Bumetanide 2 mg PO BID 06/11/17 [History] Gabapentin [Neurontin] 800 mg PO TID 06/11/17 [History] Omeprazole [PriLOSEC] 20 mg PO DAILY 06/11/17 [History] Potassium Chloride 20 meq PO BID 06/11/17 [History] Tizanidine HCl [Zanaflex] 4 mg PO TID PRN 06/11/17 [History] Nortriptyline [Pamelor] 25 mg PO HS 06/27/17 [History] DiphenhydraMINE [Benadryl] 25 mg PO HS 08/29/17 [History] Buspirone HCl [Buspar] 20 mg PO BID 09/12/17 [History] Tramadol HCl [Ultram] 100 mg PO TID PRN 09/19/17 [History] Insulin LISPRO [Humalog Kwikpen U-100] 2 - 10 unit SQ TID PRN #1 insuln.pen [Rx] Cyanocobalamin (Vitamin B-12) [Vitamin B-12] 1,000 mcg PO DAILY 11/14/17 [ History] Nitroglycerin [Nitrostat] 0.4 mg SL PRN PRN 11/14/17 [History] Buprenorphine [Butrans] 1 patch TD QWEEK 11/25/17 [History] HydrOXYzine 10 mg PO TID PRN 30 Days #90 tablet 11/28/17 [Rx] Ondansetron ODT [Zofran ODT] 4 mg SL Q8HR PRN #10 tab.rapdis 01/09/18 [Rx] ARIPiprazole [Abilify] 10 mg PO DAILY 01/18/18 [History] Isosorbide MONOnitrate [Isosorbide Mononitrate ER] 120 mg PO DAILY 01/18/18 [ History] Levothyroxine Sodium [Levoxyl] 100 mcg PO DAILY 01/18/18 [History] Metoclopramide [Reglan] 10 mg PO TID 01/18/18 [History] [place]-3 Acid Ethyl Esters [Lovaza] 1 gm PO DAILY 01/18/18 [History] Tiotropium [Spiriva] 18 mcg IH DAILY 01/18/18 [History] metOLazone [Zaroxolyn] 5 mg PO Q48H 01/18/18 [History] Azithromycin [Zithromax Tri-[place]] 500 mg PO DAILY #1 tablet 01/19/18 [Rx] Bumetanide [Bumex] 2 mg PO BIDDIURETIC #30 tablet 01/19/18 [Rx] predniSONE [PredniSONE] 10 mg PO DAILY 12 Days tablet 01/19/18 [Rx] 3 Allergy/AdvReac Type Severity Reaction Status Date / Time cefazolin [From Anc] Allergy Itching Verified 11/26/17 01:38 All Systems PM: A 10-system review of systems was performed and is negative for pertinent findings except as documented above in the HPI. - Constitutional Vitals: Temp Pulse Resp BP Pulse Ox 98.3 F 85 20 131/60 93 02/14/18 01:20 02/14/18 04:12 02/14/18 04:12 02/14/18 04:12 02/14/18 04:12 Exam: Constitutional: sleepy, mild acute respiratory distress on 4L NC Head: Normocephalic, atraumatic Heart: Normal, regular rate and rhythm, no murmurs Lungs: prolonged expiratory phase 3:1, expiratory wheezing Abdomen: Soft, nondistended, nontender, bowel sounds present and normal, no guarding or rigidity. Extremities: + 1 pitting edema, chronic venous stasis changes to anterior skin of legs bilaterally, radial pulse +2/4, capillary refill <2sec. Skin: Skin warm and dry, no jaundice Neurologic: strength 5/5 in all extremities Psych: Cooperative with exam, good eye contact, cognitive function intact, speech clear, thought process logical, and goal directed Internal Med - H&P Results - Labs CBC & Chem 7: 02/14/18 01:59 02/14/18 01:59 - Assessment and plan (1) COPD exacerbation Current Visit: No Status: Chronic Assessment and plan: CXR doesn't show pulmonary edema. Increase in oxygen, wheezing on exam. Plan: - begin Azithromycin (day 1) - continue ox support - DuoNebs Q2H prn, Q4H von (2) HTN (hypertension) Current Visit: Yes Status: Acute Assessment and plan: currently normotensive. Will continue home medications after meds have been reconciled. Qualifiers: Hypertension type: essential hypertension Qualified Code(s): I10 - Essential (primary) hypertension (3) Diabetes mellitus type 2 in obese Current Visit: Yes Status: Acute Assessment and plan: Home medications include 80 units PM, 90 units AM of Lantus. Patient has taken evening Lantus. Blood glucose on BMP 141. Plan: - medium sliding scale - Accu checks TIDAC and HS - Lantus 40 units BID (4) DVT prophylaxis Current Visit: No Status: Acute Assessment and plan: Heparin SQ (5) Diastolic CHF, acute on chronic Current Visit: Yes Status: Acute Assessment and plan: Increased weight gain, orthopnea worsening. BNP is low but clinically looks fluid overloaded. Will try diuresis. Plan: - echo pending -cardiac monitoring - strict I&Os - Lasix 40mg IV Q8H, x 2 doses - continue ox support - daily weight checks - Diet: fluid restricted 1.5L - consider sleep apnea eval after discharge - Time Spent With Patient Total time spent is greater than 50% in coordination of care (as documented) at patient's floor/unit and/or counseling patient: <Yazan Cox - Last Filed: 02/14/18 06:59> Date of Encounter: 02/14/18 Time of Encounter: 06:20 - Constitutional Vitals: Temp Pulse Resp BP Pulse Ox 98.6 F 82 17 134/73 94 02/14/18 05:27 02/14/18 05:27 02/14/18 05:27 02/14/18 05:27 02/14/18 05:27 General appearance: Present: cooperative, A&O X 3, pleasant - Head Head exam: Present: normal inspection - Eye Eye exam: Present: PERRL - ENT ENT exam: Present: mucous membranes dry, normal exam - Neck Neck exam general surgery: Present: supple. Absent: tenderness, nuchal rigidity , thyromegaly - Respiratory Respiratory exam: Present: prolonged expiratory phase, rales, wheezes. Absent: chest wall tenderness, CTAB, respiratory distress, stridor - Cardiovascular Cardiovascular exam: Present: distant heart sounds, RRR, +S1, +S2. Absent: diastolic murmur, systolic murmur - GI/Abdominal GI/Abdominal exam: Present: soft. Absent: hepatomegaly, splenomegaly, tenderness - Extremities Exam Extremities exam: Present: normal capillary refill, pedal edema (1+ non-pitting) , warm, radial pulses palpable and symmetrical. Absent: calf tenderness, joint swelling, tenderness - Back Exam Back exam: Present: normal inspection. Absent: CVA tenderness (L), CVA tenderness (R) - Neurological Exam Neurological exam: Present: alert, CN II-XII intact, oriented X3, no focal deficits - Psychiatric Psychiatric exam: Present: normal affect, normal mood - Skin Skin exam: Present: dry, warm. Absent: rash Internal Med - H&P Results - Labs CBC & Chem 7: 02/14/18 01:59 02/14/18 01:59 - EKG Data -: EKG Interpreted by Myself - EKG Data Prior EKG available for review: no EKG comments: 02/14/18 06:52 NSR; no acute changes - Diagnostic Studies Chest x-ray Status: image reviewed by me (mild CHF) - Attending Attestation I discussed the patient [place], past medical history, review of systems, lab data , and exam findings with Dr. Holley. I then saw and examined patient independently. Patient is sleeping and snoring but easily arousable. She is in no acute distress. She denies any history of sleep apnea. However, upon initial assessment and exam, I am highly suspicious she has sleep apnea. She is a long-time smoker and quit for 2 years. However, she resumed smoking 1 month ago. She was advised and lectured on the need to quit smoking completely. She is also not following a low sodium fluid restricted diet. On exam, she sounds more "wet" than she does wheezy. Given the weight gain and acute onset of shortness breath, I suspect this is more diastolic CHF than COPD flareup. Nonetheless, we will treat for both and keep her on a low-salt, fluid restricted diet. Patient has been admitted numerous times in the past for COPD exacerbations. Unfortunately, her lifestyle and heavy smoking use do not help her situation. I agree with Dr. Holley and recommend patient sleep study for evaluation of suspected sleep apnea. Other than my comments above and noted exam findings, I agree with Dr. Holley's assessment and plan. - Assessment and plan (1) DVT prophylaxis Current Visit: No Status: Acute (2) COPD exacerbation Current Visit: No Status: Chronic (3) HTN (hypertension) Current Visit: Yes Status: Acute Qualifiers: Hypertension type: essential hypertension Qualified Code(s): I10 - Essential (primary) hypertension (4) Diabetes mellitus type 2 in obese Current Visit: Yes Status: Acute (5) Diastolic CHF, acute on chronic Current Visit: Yes Status: Acute - Time Spent With Patient Total time spent is greater than 50% in coordination of care (as documented) at patient's floor/unit and/or counseling patient:
[2018-02-14] MEDS ORDERED: Naloxone 0.4 MG/ML INJ IVP PRN (06:11)
[2018-02-14] MEDS ORDERED: Acetaminophen 325 MG TABLET PO PRN (06:17)
[2018-02-14] MEDS ORDERED: Furosemide 40 MG in 0.9 % Sodium Chloride 50 ML IVPB SCH (06:30)
[2018-02-14] MEDS ORDERED: Ipratropium/Albuterol Neb 3 ML IH PRN (06:32)
[2018-02-14] MEDS ORDERED: Azithromycin 250 MG TABLET PO ONE (06:36)
[2018-02-14] MEDS ORDERED: *HR* Dextrose 50 % in Water (Syg) 50 ML SYRINGE IVP PRN (06:39)
[2018-02-14] MEDS ORDERED: Dextrose Gel 15 GM/37.5 ML TUBE PO PRN ×2 (06:39)
[2018-02-14] MEDS ORDERED: D5% in Water 1,000 ML IVC PRN (06:39)
--- NOTE | 2018-02-14 06:45 | Electrocardiograph Report ---
[place] [id number] Test Date: 2018-02-14 Pat Name: Claire Lynch Department: 103 Room: 2A Gender: F [employer] Sw[employer]: JOHANA : 1955 Requested By: Jony Hastings Order Number: [id number] Reading MD: Maged Cleaning Measurements Intervals [place] Rate: 88 P: 59 AL: 134 QRS: 28 QRSD: 94 T: 19 QT: 369 QTc: 415 Interpretive Statements SINUS RHYTHM LOW QRS VOLTAGE Poor R wave progression Electronically Signed On 02-14-2018 6:43:18 EDT by Maged Cleaning
[2018-02-14] MEDS: Insulin LISPRO 300 UNITS/3 ML VIAL SQ SCH ×3 (07:43→17:23)
[2018-02-14] MEDS: *HR* Heparin 5,000 UNIT/ML VIAL SQ SCH ×2 (07:44→17:23)
[2018-02-14] MEDS: Furosemide 40 MG/4 ML VIAL IVP SCH ×2 (07:45→14:21)
[2018-02-14] MEDS: Ipratropium/Albuterol Neb 3 ML IH SCH ×5 (07:50→23:48)
[2018-02-14] MEDS: Insulin DETEMIR 100 UNIT/ML X5UNITS SQ SCH ×2 (08:51→21:23)
[2018-02-14] MEDS: clonazePAM 0.5 MG TABLET PO PRN ×2 (12:03→21:22)
[2018-02-14] MEDS ORDERED: clonazePAM 1 MG TABLET PO PRN (14:16)
[2018-02-14] MEDS ORDERED: tiZANidine 4 MG TABLET PO PRN (14:16)
[2018-02-14] MEDS ORDERED: Nitroglycerin 0.4 MG TAB.SUBL SL PRN (14:16)
[2018-02-14] MEDS ORDERED: Ondansetron ODT 4 MG TAB.RAPDIS SL PRN (14:16)
[2018-02-14] MEDS ORDERED: Mag Hydrox/Al Hydrox/Simeth 30 ML UDC PO PRN (14:16)
[2018-02-14] MEDS ORDERED: BUPRENORPHINE TP SCH (14:30)
[2018-02-14] MEDS: Gabapentin 400 MG CAPSULE PO SCH ×2 (15:35→21:22)
[2018-02-14] MEDS: traMADol 50 MG TABLET PO PRN (15:38)
--- NOTE | 2018-02-14 20:43 | Internal Med Progress Note ---
Date of Encounter: 02/14/18 Time of Encounter: 20:43 - Assessment and plan (1) Acute exacerbation of chronic obstructive airways disease Current Visit: No Status: Acute Assessment and plan: Her breathing is better. We will continue Zithromax and nebulizer treatments with DuoNeb. She is using supplemental oxygen, like at home.The patient was advised to quit tobacco. (2) Acute on chronic diastolic (congestive) heart failure Current Visit: No Status: Acute Assessment and plan: The patient had last echocardiogram done in April 2017. It showed ejection fraction of 60-65%. It showed moderate diastolic dysfunction. She received 2 doses of IV Lasix. Her pulmonary congestion subsided. I will switch her to by mouth Bumex. The patient was advised to keep mild fluid restriction. (3) Type 2 diabetes mellitus Current Visit: No Status: Chronic Assessment and plan: I will keep her on diabetic diet. Will restart her metformin. She will continue sliding scale with Humalog. 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 Will continue Toprol-XL. Qualifiers: Hypertension type: essential hypertension Qualified Code(s): I10 - Essential (primary) hypertension (5) Acute hypokalemia Current Visit: Yes Status: Acute Assessment and plan: This is secondary to treatment with IV Lasix. We will give her a supplemental potassium chloride by mouth. BMP and magnesium will be checked tomorrow morning. - Time Spent With Patient Total time spent is greater than 50% in coordination of care (as documented) at patient's floor/unit and/or counseling patient: - Subjective Interval history: The patient feels better. She is on supplemental oxygen at 3 L/min; like at home. Denies chest pain. She has mild cough but not wheezing. Denies abdominal pain, nausea and vomiting. She made a lot of urine, after she had received 2 doses of IV Lasix. - Constitutional Vitals: Temp Pulse Resp BP Pulse Ox 98.6 F 93 18 119/73 94 02/14/18 19:09 02/14/18 19:09 02/14/18 19:09 02/14/18 19:09 02/14/18 19:09 General appearance: Present: cooperative, A&O X 3, pleasant - Respiratory Respiratory exam: Present: CTAB. Absent: accessory muscle use, rales, rhonchi, wheezes - Cardiovascular Cardiovascular exam: Present: RRR, +S1, +S2. Absent: diastolic murmur, gallop, rubs, systolic murmur - GI/Abdominal GI/Abdominal exam: Present: normal bowel sounds, soft, no peritoneal signs. Absent: distended, tenderness - Skin Skin exam: Present: dry, intact Internal Medicine: Result - Labs CBC & Chem 7: 02/14/18 01:59 02/14/18 01:59 - Impressions Impressions Echocardiogram 02/14/18 06:24 Impressions: LVEF 60-65%. Normal LV chamber size, wall thickness and function. Mild left ventricular diastolic dysfunction. Normal right ventricular structure and function. No evidence of pulmonary hypertension. No significant valvular dysfunction. Left Ventricular Wall Motion: Rest Echo Findings All wall segments showed normal motion. Findings: Study Quality * Technically adequate exam. ECG Findings * Normal sinus rhythm. Left Ventricle * LVEF 60-65%. * Normal LV chamber size, wall thickness and function. * Mild left ventricular diastolic dysfunction. Right Ventricle * Normal right ventricular structure and function. Left Atrium * Mild to moderately dilated left atrium. Right Atrium * Normal right atrial size. Aortic Valve * Aortic valve not well visualized. * Mildly sclerotic aortic valve leaflets. * No aortic regurgitation. * No aortic stenosis. Mitral Valve * Mild mitral annular calcification * Normal mitral valve function. * No mitral regurgitation. * No mitral stenosis. Tricuspid Valve * Normal tricuspid valve structure and function. * Trace tricuspid regurgitation. * No evidence of pulmonary hypertension. Pulmonic Valve * Pulmonic valve is not well visualized. * No pulmonic regurgitation. Aorta * Normally sized aortic root. Pericardium * The pericardium appears normal. IVC * Normal IVC dimensions and inspiratory collapse. Pulmonary Artery * Normal visualized portions of the main pulmonary artery. Consult Discharge Plan - Plan Referrals: Isaac Morley MD [Primary Care Provider] -
[2018-02-14] MEDS ORDERED: Insulin LISPRO 300 UNITS/3 ML VIAL SQ SCH (21:00)
[2018-02-14] MEDS: *HR* Metformin 500 MG TABLET PO SCH (21:22)
[2018-02-15] MEDS: traMADol 50 MG TABLET PO PRN (03:45)
[2018-02-15] MEDS: Ipratropium/Albuterol Neb 3 ML IH SCH ×3 (04:42→11:20)
[2018-02-15 05:34] LABS: Hematocrit 33.5 % (35.3-44.9); Hemoglobin 9.7 g/dL (11.5-15.4); Immature Platelets 7.5 % (1.1-6.1); Mean Corpuscular Hemoglobin 23.5 pg (28.0-33.3); Mean Corpuscular Volume 81.1 fL (83.0-100.0); Red Blood Count 4.13 M/mcL (3.82-4.97); Red Cell Distribution Width 17.2 % (11.5-14.5)
[2018-02-15 05:49] LABS: Alanine Aminotransferase 16 Units/L (7-52); Albumin 3.4 g/dL (3.5-5.7); Albumin/Globulin Ratio 1.1 (1.1-2.2); Alkaline Phosphatase 56 Units/L (34-104); Aspartate Amino Transferase 18 Units/L (13-39); BUN/Creatinine Ratio 26 (6-26); Bilirubin,Total 0.3 mg/dL (0.3-1.0); Blood Urea Nitrogen 18 mg/dL (8-23); Calcium 9.5 mg/dL (8.6-10.3); Carbon Dioxide 31 mEq/L (23-29); Chloride 102 mEq/L (98-107); Glucose 165 mg/dL (70-105); Magnesium 1.6 mg/dL (1.6-2.6); Osmolality,Calculated 294 (280-300); Phosphorous 3.5 mg/dL (2.7-4.5); Potassium 3.4 mEq/L (3.5-5.1); Sodium 139 mEq/L (136-145); Total Protein 6.4 g/dL (6.4-8.9); eGFR For African Americans > 60 (> 60); eGFR For Non-African Americans > 60 (> 60)
[2018-02-15] MEDS: *HR* Heparin 5,000 UNIT/ML VIAL SQ SCH (06:08)
[2018-02-15] MEDS ORDERED: Bumetanide 1 MG TABLET PO SCH (08:00)
[2018-02-15] MEDS ORDERED: Fenofibrate 54 MG TABLET PO SCH (09:00)
[2018-02-15] MEDS ORDERED: Aspirin 81 MG TAB.CHEW PO SCH (09:00)
[2018-02-15] MEDS ORDERED: Metoprolol XL (24 HR) Succ 50 MG TAB.ER.24H PO SCH (09:00)
[2018-02-15] MEDS ORDERED: Cyanocobalamin (B-12) 1,000 MCG TABLET PO SCH (09:00)
[2018-02-15] MEDS ORDERED: Azithromycin 250 MG TABLET PO SCH (09:00)
[2018-02-15] MEDS ORDERED: Cholecalciferol (D-3) 1,000 UNIT TABLET PO SCH (09:00)
[2018-02-15] MEDS ORDERED: Isosorbide MONOnitrate (24 HR) 60 MG TAB.ER.24H PO SCH (09:00)
[2018-02-15] MEDS ORDERED: ARIPiprazole 10 MG TABLET PO SCH (09:00)
[2018-02-15] MEDS ORDERED: Magnesium Oxide 400 MG TABLET PO SCH (09:00)
[2018-02-15] MEDS: *HR* Metformin 500 MG TABLET PO SCH (09:02)
[2018-02-15] MEDS: Gabapentin 400 MG CAPSULE PO SCH (09:03)
[2018-02-15] MEDS: Insulin DETEMIR 100 UNIT/ML X5UNITS SQ SCH (09:07)
[2018-02-15] MEDS: Insulin LISPRO 300 UNITS/3 ML VIAL SQ SCH (09:08)
[2018-02-15] MEDS: clonazePAM 0.5 MG TABLET PO PRN (09:18)
--- NOTE | 2018-02-15 11:04 | Discharge Summary ---
- NOTES TO OUTPATIENT PROVIDER Notes to Outpatient Provider: The patient used to smoke 40 cigarettes per day, before this hospitalization. I advised her to quit smoking completely. She will be on mild fluid restriction of 1800 mL per day. Orders not resulted at time of discharge: Pending orders 02/16/18 04:00 Electrolytes AM 0400 Mg Serum [Magnesium] AM 0400 Date of Encounter: 02/15/18 Time of Encounter: 11:01 - Discharge Diagnosis (1) Acute exacerbation of chronic obstructive airways disease Priority: Primary Status: Acute (2) Acute on chronic diastolic (congestive) heart failure Priority: Primary Status: Acute (3) Type 2 diabetes mellitus Priority: Secondary Status: Chronic 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 mellitus intermediate designer insulin use: with fdc use Diabetes mellitus complication status: with neurologic complications Diabetes mellitus complication detail: with polyneuropathy Qualified Code(s): E11.42 - Type 2 diabetes mellitus with diabetic polyneuropathy; Z79.4 - intermediate manager (current) use of insulin; Z79.4 - intermediate manager (current) use of insulin; Z79.4 - intermediate ( current) use of insulin; Z79.4 - intermediate manager (current) use of insulin (4) Hypertension Priority: Secondary Status: Chronic Qualifiers: Hypertension type: essential hypertension Qualified Code(s): I10 - Essential (primary) hypertension (5) Acute hypokalemia Priority: Secondary Status: Acute (6) Continuous tobacco abuse Priority: Secondary Status: Chronic Hospital course: Ms. Lynch is a 62 year old female Discharge discussed with: patient, case management Time spent discussing smoking cessation with patient: 3 to 10 minutes - Time Spent with Patient Total time spent providing and/or coordinating discharge services: Greater than 30 minutes (40 minutes) - Discharge Medications Prescriptions: Azithromycin [Zithromax] 250 mg PO DAILY #3 tablet Potassium Chloride 20 meq PO TID #90 tab.er.prt Home Medications: metFORMIN [Glucophage] 1,000 mg PO BID 04/21/15 [History] Montelukast [Singulair] 10 mg PO HS 02/04/16 [History] Oxygen 2 l NS AD PRN 03/17/16 [History] Insulin Glargine [Lantus] 80 unit SQ BID 03/25/16 [History] Albuterol Sulfate [Albuterol Inhaler] 2 puff IH Q4HR PRN 05/01/16 [History] Citalopram Hydrobromide [Citalopram HBr] 40 mg PO DAILY 05/01/16 [History] Raloxifene [Evista] 60 mg PO DAILY 05/01/16 [History] Fenofibrate Nanocrystallized [Tricor] 145 mg PO DAILY 06/15/16 [History] Clopidogrel [Plavix] 75 mg PO QAM tablet 06/18/16 [Rx] Aspirin 81 mg PO DAILY #60 tab.chew 12/06/16 [Rx] Mag Hydrox/Al Hydrox/Simeth [Maalox] 30 ml PO Q6H PRN 30 Days oral.susp [Rx] Cholecalciferol (D-3) [Vitamin D] 1,000 unit PO DAILY 04/27/17 [History] Metoprolol XL (24 HR) Succ [Toprol Xl] 50 mg PO DAILY 04/27/17 [History] clonazePAM [Klonopin] 0.5 mg PO BID PRN 05/28/17 [History] Magnesium Oxide [Mag-Ox] 400 mg PO DAILY #0 tab 05/29/17 [Rx] Bumetanide 2 mg PO BID 06/11/17 [History] Gabapentin [Neurontin] 800 mg PO TID 06/11/17 [History] Omeprazole [PriLOSEC] 20 mg PO DAILY 06/11/17 [History] Tizanidine HCl [Zanaflex] 4 mg PO TID PRN 06/11/17 [History] Nortriptyline [Pamelor] 25 mg PO HS 06/27/17 [History] DiphenhydraMINE [Benadryl] 25 mg PO HS 08/29/17 [History] Buspirone HCl [Buspar] 20 mg PO BID 09/12/17 [History] Tramadol HCl [Ultram] 100 mg PO TID PRN 09/19/17 [History] Insulin LISPRO [Humalog Kwikpen U-100] 2 - 10 unit SQ TID PRN #1 insuln.pen [Rx] Cyanocobalamin (Vitamin B-12) [Vitamin B-12] 1,000 mcg PO DAILY 11/14/17 [ History] Nitroglycerin [Nitrostat] 0.4 mg SL PRN PRN 11/14/17 [History] Buprenorphine [Butrans] 1 patch TD QWEEK 11/25/17 [History] HydrOXYzine 10 mg PO TID PRN 30 Days #90 tablet 11/28/17 [Rx] Ondansetron ODT [Zofran ODT] 4 mg SL Q8HR PRN #10 tab.rapdis 01/09/18 [Rx] ARIPiprazole [Abilify] 10 mg PO DAILY 01/18/18 [History] Isosorbide MONOnitrate [Isosorbide Mononitrate ER] 120 mg PO DAILY 01/18/18 [ History] Levothyroxine Sodium [Levoxyl] 100 mcg PO DAILY 01/18/18 [History] Metoclopramide [Reglan] 10 mg PO TID 01/18/18 [History] [place]-3 Acid Ethyl Esters [Lovaza] 1 gm PO DAILY 01/18/18 [History] Tiotropium [Spiriva] 18 mcg IH DAILY 01/18/18 [History] metOLazone [Zaroxolyn] 5 mg PO Q48H 01/18/18 [History] Azithromycin [Zithromax] 250 mg PO DAILY #3 tablet 02/15/18 [Rx] Potassium Chloride 20 meq PO TID #90 tab.er.prt 02/15/18 [Rx] Allergies/Adverse Reactions: 3 Allergy/AdvReac Type Severity Reaction Status Date / Time cefazolin [From [facility]] Allergy Itching Verified 11/26/17 01:38 Date of admission: 02/14/18 04:32 Primary care physician: Isaac Morlye MD Discharging clinician: Burak Cheatham - Constitutional Vitals: Temp Pulse Resp BP Pulse Ox 98.6 F 84 18 126/79 91 02/15/18 07:49 02/15/18 07:49 02/15/18 07:49 02/15/18 07:49 02/15/18 07:49 General appearance: Present: cooperative, A&O X 3, pleasant - Respiratory Respiratory exam: Present: CTAB. Absent: accessory muscle use, rales, rhonchi, wheezes - Cardiovascular Cardiovascular exam: Present: RRR, +S1, +S2. Absent: diastolic murmur, gallop, rubs, systolic murmur - GI/Abdominal GI/Abdominal exam: Present: normal bowel sounds, soft, no peritoneal signs. Absent: distended, tenderness - Patient Status Disposition: Home, Self-Care Condition: Fair - Discharge Instructions Follow Up With: Isaac Morley MD [Primary Care Provider] - Forms: ED Satisfaction Letter - Diet and Activity Activity: resume usual activities as tolerated, wear oxygen at all times - VTE Deep Vein Thrombosis/Pulmonary Embolism Present on Admission: No
[2018-02-15 12:02] VITALS: BP 108/60
[2018-02-15] MEDS ORDERED: *HR* Metformin 500 MG TABLET PO SCH (17:00)
== END 2018-02-15 13:43 | disposition home or self-care (01) ==
LOC: EMEROO 01:19 → 2ANU 01:19 → SUATTDRO 04:32 → 2ANU 05:06
PROVIDERS: ADMIT Pediatrics; ATTEND Internal Medicine

== ENCOUNTER 2018-02-24 23:32 | Inpatient (IN) ==
[2018-02-24] MEDS ORDERED: Ipratropium/Albuterol Neb 3 ML IH ONE (23:47)
[2018-02-24] MEDS ORDERED: methylPREDNISolone 125 MG/2 ML VIAL IVP ONE (23:47)
[2018-02-25 00:20] LABS: Basophils # 0.1 K/mcL (0.0-0.2); Basophils % 0.7 %; Eosinophils # 0.2 K/mcL (0.0-0.6); Eosinophils % 1.5 %; Hematocrit 36.7 % (35.3-44.9); Immature Granulocytes % 2.2 % (0-4); Lymphocytes # 3.2 K/mcL (0.6-4.6); Mean Corpuscular Hemoglobin 23.4 pg (28.0-33.3); Mean Corpuscular Volume 77.9 fL (83.0-100.0); Monocytes # 0.7 K/mcL (0.0-1.3); Monocytes % 5.6 %; Neutrophils # 7.9 K/mcL (1.6-8.9); Nucleated Red Blood Cells 0.4 /100 WBC (0); Platelet Count 311 K/mcL (140-400); Red Blood Count 4.71 M/mcL (3.82-4.97); Red Cell Distribution Width 17.2 % (11.5-14.5)
[2018-02-25] MEDS ORDERED: 0.9 % Sodium Chloride 500 ML IVC ONE (00:25)
[2018-02-25 00:30] LABS: BUN/Creatinine Ratio 20 (6-26); Blood Urea Nitrogen 18 mg/dL (8-23); Carbon Dioxide 28 mEq/L (23-29); Chloride 102 mEq/L (98-107); Glucose 145 mg/dL (70-105); Osmolality,Calculated 292 (280-300); Potassium 3.2 mEq/L (3.5-5.1); Sodium 139 mEq/L (136-145); eGFR For African Americans > 60 (> 60); eGFR For Non-African Americans > 60 (> 60)
[2018-02-25 00:31] LABS: Troponin I < 0.03 ng/mL (< 0.04)
--- NOTE | 2018-02-25 02:00 | Emergency Department Note ---
Disposition Clinical Impression: COPD exacerbation Disposition: Admitted As Inpatient Condition: Fair Time of Disposition: 03:48 General Adult HPI - General Chief complaint: ED Shortness of Breath/Dyspnea Stated complaint: General Time Seen by Provider: 02/24/18 23:33 Source: patient, EMS Mode of arrival: EMS Limitations: no limitations Nursing Notes Reviewed: Yes Vital Signs Reviewed: Yes - History of Present Illness HPI Narrative: Patient is a 8-year-old female with past medical history of HTN, CAD, DM and COPD requiring 2 L nasal cannula oxygen 21/03 presents for evaluation of difficulty in breathing has been going on for the past 4 days. The patient states that she has been requiring 3 L nasal cannula at home and feeling short of breath. She also admits to chest pressure is states is consistent when she has exacerbations of her COPD. Patient states she is also had a nonproductive cough. Denies any fevers. Pain Scale: 8 - Related Data Home Medications Medication Instructions Recorded Confirmed metFORMIN [Glucophage] 1,000 mg PO BID 04/21/15 02/14/18 Montelukast [Singulair] 10 mg PO HS 02/04/16 02/14/18 Oxygen 2 l NS AD PRN 03/17/16 02/14/18 Insulin Glargine [Lantus] 60 unit SQ BID 03/25/16 02/14/18 Albuterol Sulfate [Albuterol 2 puff IH Q4HR PRN 05/01/16 02/14/18 Inhaler] Citalopram Hydrobromide 40 mg PO DAILY 05/01/16 02/14/18 [Citalopram HBr] Raloxifene [Evista] 60 mg PO DAILY 05/01/16 02/14/18 Fenofibrate Nanocrystallized 145 mg PO DAILY 06/15/16 02/14/18 [Tricor] Cholecalciferol (D-3) [Vitamin D] 1,000 unit PO DAILY 04/27/17 02/14/18 Metoprolol XL (24 HR) Succ [Toprol 50 mg PO DAILY 04/27/17 02/14/18 Xl] clonazePAM [Klonopin] 0.5 mg PO BID PRN 05/28/17 02/14/18 Bumetanide 2 mg PO BID 06/11/17 02/14/18 Gabapentin [Neurontin] 800 mg PO TID 06/11/17 02/14/18 Omeprazole [PriLOSEC] 20 mg PO DAILY 06/11/17 02/14/18 Tizanidine HCl [Zanaflex] 4 mg PO TID PRN 06/11/17 02/14/18 Nortriptyline [Pamelor] 25 mg PO HS 06/27/17 02/14/18 DiphenhydraMINE [Benadryl] 25 mg PO HS 08/29/17 02/14/18 Buspirone HCl [Buspar] 20 mg PO BID 09/12/17 02/14/18 Tramadol HCl [Ultram] 100 mg PO TID PRN 09/19/17 02/14/18 Cyanocobalamin (Vitamin B-12) 1,000 mcg PO DAILY 11/14/17 02/14/18 [Vitamin B-12] Nitroglycerin [Nitrostat] 0.4 mg SL PRN PRN 11/14/17 02/14/18 Buprenorphine [Butrans] 1 patch TD QWEEK 11/25/17 02/14/18 ARIPiprazole [Abilify] 10 mg PO DAILY 01/18/18 02/14/18 Isosorbide MONOnitrate [Isosorbide 120 mg PO DAILY 01/18/18 02/14/18 Mononitrate ER] Levothyroxine Sodium [Levoxyl] 100 mcg PO DAILY 01/18/18 02/14/18 Metoclopramide [Reglan] 10 mg PO TID 01/18/18 02/14/18 [place]-3 Acid Ethyl Esters [Lovaza] 1 gm PO DAILY 01/18/18 02/14/18 Tiotropium [Spiriva] 18 mcg IH DAILY 01/18/18 02/14/18 metOLazone [Zaroxolyn] 5 mg PO Q48H 01/18/18 02/14/18 Previous Rx's Medication Instructions Recorded Clopidogrel [Plavix] 75 mg PO QAM tablet 06/18/16 Aspirin 81 mg PO DAILY #60 tab.chew 12/06/16 Mag Hydrox/Al Hydrox/Simeth 30 ml PO Q6H PRN 30 Days oral.susp 03/26/17 [Maalox] Magnesium Oxide [Mag-Ox] 400 mg PO DAILY #0 tab 05/29/17 Insulin LISPRO [Humalog Kwikpen 2 - 10 unit SQ TID PRN #1 10/19/17 U-100] insuln.pen HydrOXYzine 10 mg PO TID PRN 30 Days #90 tablet 11/28/17 Ondansetron ODT [Zofran ODT] 4 mg SL Q8HR PRN #10 tab.rapdis 01/09/18 Azithromycin [Zithromax] 250 mg PO DAILY #3 tablet 02/15/18 Potassium Chloride 20 meq PO TID #90 tab.er.prt 02/15/18 Allergies Allergy/AdvReac Type Severity Reaction Status Date / Time cefazolin [From [facility]] Allergy Itching Verified 11/26/17 01:38 All systems ED: reviewed and negative except as stated. Review of Systems: As Per HPI Constitutional: Denies: fever, chills ENT ED: Denies: congestion Cardiovascular: Reports: dyspnea on exertion. Denies: chest pain, palpitations , edema, syncope Respiratory: Reports: cough, dyspnea, wheezes. Denies: hemoptysis, sputum production Gastrointestinal: Denies: abdominal pain, nausea, vomiting Musculoskeletal: Denies: back pain Integumentary: Denies: rash Neurological: Denies: weakness, numbness, paresthesias Past Medical History - Past Medical History Attestation: Yes The following information was validated with the patient. Medical history: Reports: arthritis, CHF, COPD, coronary artery disease, diabetes, GERD, hyperlipidemia, hypertension, osteoporosis, renal disease, thyroid disease, TIA, venous stasis, other Surgical history: Reports: angioplasty/stent, , cholecystectomy, hysterectomy Psychiatric history: Reports: anxiety, bipolar, depression, panic disorder [employer] history: Reports: bilateral tubal ligation - Social History Smoking Status: Current every day smoker Smokeless Tobacco Status: No Alcohol use: Reports: none Drug use: Reports: none Physical Exam CONSTITUTIONAL: A&O X 3, in no apparent distress. Oxygen saturation is near 100% on 3 L nasal cannula while sitting in bed. HEAD: Normocephalic; atraumatic EYES: PERRL, no scleral icterus NOSE: The nose is normal in appearance without rhinorrhea NECK: No JVD or distended neck veins RESP: Normal chest excursion with respiration; breath sounds clear and equal bilaterally; patient has a very mild expiratory wheeze bilaterally. No rales or rhonchi. CARD: Regular rhythm, without murmurs, rub or gallop ABD: Non-distended; non-tender, soft, without rigidity, rebound or guarding,no pulsatile mass CHEST: No pain with palpation SKIN: Normal for age and race; warm and dry without diaphoresis ; no apparent lesions EXTREMITIES: Pulses are 2 plus and equal times 4 extremities, no peripheral edema or calf muscle pain - General General appearance: alert Course Course Narrative: Patient underwent treatment with 1 order of dual nebs as well as steroids for COPD. Her lab work returned was unremarkable. EKG showed no signs of ischemia. The patient was ambulated after treatments and her oxygen saturation dropped to 85%. Patient states that she does not feel comfortable going home because she is having difficulty breathing. Discussed plan to admit the patient for COPD exacerbation. I discussed his plans with the hospitalist they agree to accept the patient. Vital Signs Temperature 98.6 F 02/24/18 23:47 Pulse Rate 96 02/24/18 23:47 Respiratory Rate 22 02/24/18 23:47 Blood Pressure 141/76 02/24/18 23:47 O2 Sat by Pulse Oximetry 96 02/24/18 23:47 Temperature 98.4 F 02/25/18 04:12 Pulse Rate 94 02/25/18 04:12 Respiratory Rate 18 02/25/18 04:12 Blood Pressure 150/84 02/25/18 04:12 O2 Sat by Pulse Oximetry 90 02/25/18 04:12 Oxygen Delivery Oxygen Delivery Room Air Medical Decision Making - Medical Records Medical records reviewed: Yes I reviewed the patient's medical records. - Lab Data Lab results reviewed: Yes I reviewed the patient's lab results. Result diagrams: 02/24/18 23:53 02/24/18 23:53 Lab Results 02/24/18 02/24/18 02/24/18 Range/Units 23:53 23:53 23:53 WBC 12.4 H (4.3-11.1) K/mcL RBC 4.71 (3.82-4.97) M/mcL Hgb 11.0 L (11.5-15.4) g/dL Hct 36.7 (35.3-44.9) % MCV 77.9 L (83.0-100.0) fL MCH 23.4 L (28.0-33.3) pg MCHC 30.0 L (31.6-35.5) g/dL RDW 17.2 H (11.5-14.5) % Plt Count 311 (140-400) K/mcL MPV 11.0 (9.4-12.4) fL Immature Gran % 2.2 (0-4) % Seg Neutrophils % 64.0 % Lymphocytes % 26.0 % Monocytes % 5.6 % Eosinophils % 1.5 % Basophils % 0.7 % Neutrophils # 7.9 (1.6-8.9) K/mcL Lymphocytes # 3.2 (0.6-4.6) K/mcL Monocytes # 0.7 (0.0-1.3) K/mcL Eosinophils # 0.2 (0.0-0.6) K/mcL Basophils # 0.1 (0.0-0.2) K/mcL Nucleated RBCs/100 WBC 0.4 H (0) /100 WBC Sodium 139 (136-145) mEq/L Potassium 3.2 L (3.5-5.1) mEq/L Chloride 102 (98-107) mEq/L Carbon Dioxide 28 (23-29) mEq/L BUN 18 (8-23) mg/dL Creatinine 0.92 (0.60-1.20) mg/dL Est GFR ( Amer) > 60 (> 60) Est GFR (Non-Af Amer) > 60 (> 60) BUN/Creatinine Ratio 20 (6-26) Glucose 145 H (70-105) mg/dL Calculated Osmolality 292 (280-300) Lactic Acid 2.5 H (0.5-2.2) mmol/L Calcium 10.0 (8.6-10.3) mg/dL Troponin I < 0.03 (< 0.04) ng/mL B-Natriuretic Peptide (Less than 100) pg/mL 02/24/18 02/25/18 Range/Units 23:53 01:32 WBC (4.3-11.1) K/mcL RBC (3.82-4.97) M/mcL Hgb (11.5-15.4) g/dL Hct (35.3-44.9) % MCV (83.0-100.0) fL MCH (28.0-33.3) pg MCHC (31.6-35.5) g/dL RDW (11.5-14.5) % Plt Count (140-400) K/mcL MPV (9.4-12.4) fL Immature Gran % (0-4) % Seg Neutrophils % % Lymphocytes % % Monocytes % % Eosinophils % % Basophils % % Neutrophils # (1.6-8.9) K/mcL Lymphocytes # (0.6-4.6) K/mcL Monocytes # (0.0-1.3) K/mcL Eosinophils # (0.0-0.6) K/mcL Basophils # (0.0-0.2) K/mcL Nucleated RBCs/100 WBC (0) /100 WBC Sodium (136-145) mEq/L Potassium (3.5-5.1) mEq/L Chloride (98-107) mEq/L Carbon Dioxide (23-29) mEq/L BUN (8-23) mg/dL Creatinine (0.60-1.20) mg/dL Est GFR ( Amer) (> 60) Est GFR (Non-Af Amer) (> 60) BUN/Creatinine Ratio (6-26) Glucose (70-105) mg/dL Calculated Osmolality (280-300) Lactic Acid 1.6 (0.5-2.2) mmol/L Calcium (8.6-10.3) mg/dL Troponin I (< 0.04) ng/mL B-Natriuretic Peptide 33 (Less than 100) pg/mL - Radiology Data Radiology results reviewed: Yes I reviewed the patient's radiology results. Chest X-Ray 02/24/18 23:47 IMPRESSION: Airway thickening may reflect mild edema (improved) versus airway inflammation, such that seen with asthma, bronchitis or smoking. No consolidative airspace disease. D/ / Trenton Chen / Trenton Chen Interpreting Provider: Trenton Chen - EKG Data EKG #1 EKG attestation: Yes I reviewed and interpreted this EKG. EKG results narrative: EKG done at 00:08 shows sinus rhythm at a rate of 98 bpm. Normal axis. No signs of ST elevation, ST depression or Q waves present at this time. No signs of ischemia. Attestation Statement - Attestation Attestation: I examined this patient and my medical decision-making was reviewed with the Resident Physician. I agree with the documented findings, disposition and treatment plan as described except to the extent set forth below. Findings consistent with chronic respiratory failure. Patient will be admitted after bronchodilators, steroids, antibiotics. Patient's hypoxia improved with oxygen.
--- NOTE | 2018-02-25 04:46 | Internal Med History&Physical ---
Date of Encounter: 02/25/18 Time of Encounter: 05:00 Internal Medicine - H&P: HPI Chief complaint: SOB Admitted From: Home Plans for Post Hospital Care: Home History of present illness: Ms. Lynch is a 62 year old female with a past medical history of CHF, COPD 2L NC 24/7, CAD, diabetes, hypertension, TIA, and renal disease who presented to the ED for shortness of breath. Patient states that shortness of breath began a couple of days ago and progressively worsen. She admits to increase coughing but denies fevers, chills, or rhinorrhea. Patient desired to sleep and refused further questioning at this time. Upon arrival to the ED, patient's respiratory rate was 22 on 2 L sat 96%. Labs showed a white blood cell count 12.4, hemoglobin 11 (baseline), K 3.2, lactic acid 2.5 repeat 1.6, Troponin neg, BNP 33. Chest x-ray showed airway thickening versus airway inflammation seen with asthma bronchitis or smoking. We will and the ED patient is given a DuoNeb treatment, Solu-Medrol and 500 mL bolus of normal saline. Patient was admitted to the floor for COPD exacerbation. Past Med Surg Social Fam HX - Past Medical History Medical history: arthritis, CHF, COPD, coronary artery disease, diabetes, GERD, hyperlipidemia, hypertension, osteoporosis, renal disease, thyroid disease, TIA , venous stasis, other Additional medical history: recent UTI Psychiatric history: anxiety, bipolar, depression, panic disorder - Past Surgical History Surgical History: angioplasty/stent, , cholecystectomy, hysterectomy Additional surgical history: 4 cardiac stents, tubal ligation - Social History Smoking Status: Current every day smoker Smokeless Tobacco Status: No Alcohol use: none Drug use: none - Family History Brother Adopted: No Family Member Ethnicity: Non- Living Status: Hx Family Cardiac Disorders: Yes Father Adopted: No Family Member Ethnicity: Non- Living Status: Hx Family Cardiac Disorders: Yes (HD, HLD, HTN, AL, Triple Bypass) Hx Family Neurologic Disorders: Yes (Dementia) Mother Adopted: No Family Member Ethnicity: Non- Living Status: Hx Family Cardiac Disorders: Yes (AL, HTN, HLD, Strokes x5) Hx Family Respiratory Disorders: No Hx Family Cancer: No Hx Family GI Disorders: No Hx Family Endocrine Disorder: Yes (DM) Hx Family Neuromuscular Disorders: No Hx Family Neurologic Disorders: Yes (Strokes) Hx Family HEENT Disorders: No Hx Family Autoimmune Disorders: No Internal Medicine - H&P: Meds metFORMIN [Glucophage] 1,000 mg PO BID 04/21/15 [History] Montelukast [Singulair] 10 mg PO HS 02/04/16 [History] Oxygen 2 l NS AD PRN 03/17/16 [History] Insulin Glargine [Lantus] 60 unit SQ BID 03/25/16 [History] Albuterol Sulfate [Albuterol Inhaler] 2 puff IH Q4HR PRN 05/01/16 [History] Citalopram Hydrobromide [Citalopram HBr] 40 mg PO DAILY 05/01/16 [History] Raloxifene [Evista] 60 mg PO DAILY 05/01/16 [History] Fenofibrate Nanocrystallized [Tricor] 145 mg PO DAILY 06/15/16 [History] Clopidogrel [Plavix] 75 mg PO QAM tablet 06/18/16 [Rx] Aspirin 81 mg PO DAILY #60 tab.chew 12/06/16 [Rx] Mag Hydrox/Al Hydrox/Simeth [Maalox] 30 ml PO Q6H PRN 30 Days oral.susp [Rx] Cholecalciferol (D-3) [Vitamin D] 1,000 unit PO DAILY 04/27/17 [History] Metoprolol XL (24 HR) Succ [Toprol Xl] 50 mg PO DAILY 04/27/17 [History] clonazePAM [Klonopin] 0.5 mg PO BID PRN 05/28/17 [History] Magnesium Oxide [Mag-Ox] 400 mg PO DAILY #0 tab 05/29/17 [Rx] Bumetanide 2 mg PO BID 06/11/17 [History] Gabapentin [Neurontin] 800 mg PO TID 06/11/17 [History] Omeprazole [PriLOSEC] 20 mg PO DAILY 06/11/17 [History] Tizanidine HCl [Zanaflex] 4 mg PO TID PRN 06/11/17 [History] Nortriptyline [Pamelor] 25 mg PO HS 06/27/17 [History] DiphenhydraMINE [Benadryl] 25 mg PO HS 08/29/17 [History] Buspirone HCl [Buspar] 20 mg PO BID 09/12/17 [History] Tramadol HCl [Ultram] 100 mg PO TID PRN 09/19/17 [History] Insulin LISPRO [Humalog Kwikpen U-100] 2 - 10 unit SQ TID PRN #1 insuln.pen [Rx] Cyanocobalamin (Vitamin B-12) [Vitamin B-12] 1,000 mcg PO DAILY 11/14/17 [ History] Nitroglycerin [Nitrostat] 0.4 mg SL PRN PRN 11/14/17 [History] Buprenorphine [Butrans] 1 patch TD QWEEK 11/25/17 [History] HydrOXYzine 10 mg PO TID PRN 30 Days #90 tablet 11/28/17 [Rx] Ondansetron ODT [Zofran ODT] 4 mg SL Q8HR PRN #10 tab.rapdis 01/09/18 [Rx] ARIPiprazole [Abilify] 10 mg PO DAILY 01/18/18 [History] Isosorbide MONOnitrate [Isosorbide Mononitrate ER] 120 mg PO DAILY 01/18/18 [ History] Levothyroxine Sodium [Levoxyl] 100 mcg PO DAILY 01/18/18 [History] Metoclopramide [Reglan] 10 mg PO TID 01/18/18 [History] [place]-3 Acid Ethyl Esters [Lovaza] 1 gm PO DAILY 01/18/18 [History] Tiotropium [Spiriva] 18 mcg IH DAILY 01/18/18 [History] metOLazone [Zaroxolyn] 5 mg PO Q48H 01/18/18 [History] Azithromycin [Zithromax] 250 mg PO DAILY #3 tablet 02/15/18 [Rx] Potassium Chloride 20 meq PO TID #90 tab.er.prt 02/15/18 [Rx] 3 Allergy/AdvReac Type Severity Reaction Status Date / Time cefazolin [From [facility]] Allergy Itching Verified 11/26/17 01:38 All Systems PM: A 10-system review of systems was performed and is negative for pertinent findings except as documented above in the HPI. - Constitutional Vitals: Temp Pulse Resp BP Pulse Ox 98.4 F 94 18 150/84 90 02/25/18 04:12 02/25/18 04:12 02/25/18 04:12 02/25/18 04:12 02/25/18 04:12 Exam: Constitutional: Alert, in no acute distress Head: Normocephalic, atraumatic Heart: Normal, regular rate and rhythm, no murmurs Lungs: wheezing present bilaterally, NC Abdomen: Soft, nondistended, nontender, no guarding or rigidity. Extremities: No edema, No clubbing, radial pulse +2/4, capillary refill <2sec. Skin: Skin warm and dry, no lesions, no rashes, no jaundice Neurologic: Cranial nerves II through XII grossly intact, Psych: Cooperative with exam, cognitive function intact, speech clear, thought process logical, and goal directed Internal Med - H&P Results - Labs CBC & Chem 7: 02/24/18 23:53 02/24/18 23:53 - Assessment and plan (1) COPD exacerbation Current Visit: No Status: Chronic Assessment and plan: Unknown cause of exacerbation, possible bronchitis per CXR. Patient denies upper respiratory infection symptoms other than coughing. Plan: - Continue NS, wean as tolerated - DuoNebs Q2H prn and Q4H von - Prednisone 60mg Q8H - continuous pulse ox - antibiotics: Azithromycin (2) Congestive heart failure Current Visit: No Status: Chronic Assessment and plan: diastolic CHF. CXR does not show pulmonary edema. BNP = 33. SOB likely mostly due to COPD. Will continue home Lasix. Plan: - daily weights, I&Os - continue to monitor fluid status Qualifiers: Heart failure type: diastolic Heart failure chronicity: acute on chronic Qualified Code(s): I50.33 - Acute on chronic diastolic (congestive) heart failure (3) Diabetes mellitus type 2 in obese Current Visit: No Status: Acute Assessment and plan: Plan: - low sliding scale - Accu checks TIDAC and HS - Lantus 30 units HS (4) DVT prophylaxis Current Visit: No Status: Acute Assessment and plan: ICDs as patient will probably stay less than 2 days, will need to switch if lenghth of stay longer to heparin SQ - Time Spent With Patient Total time spent is greater than 50% in coordination of care (as documented) at patient's floor/unit and/or counseling patient:
[2018-02-25] MEDS ORDERED: Naloxone 0.4 MG/ML INJ IVP PRN (05:21)
[2018-02-25] MEDS ORDERED: Ipratropium/Albuterol Neb 3 ML IH PRN ×2 (05:44→05:54)
[2018-02-25] MEDS ORDERED: Ipratropium/Albuterol Neb 3 ML IH SCH (05:45)
[2018-02-25] MEDS ORDERED: Azithromycin 250 MG TABLET PO ONE (05:52)
[2018-02-25] MEDS ORDERED: Dextrose Gel 15 GM/37.5 ML TUBE PO PRN ×2 (05:58)
[2018-02-25] MEDS ORDERED: D5% in Water 1,000 ML IVC PRN (05:58)
[2018-02-25] MEDS ORDERED: *HR* Dextrose 50 % in Water (Syg) 50 ML SYRINGE IVP PRN (05:58)
[2018-02-25 06:21] LABS: Hematocrit 36.2 % (35.3-44.9); Hemoglobin 10.7 g/dL (11.5-15.4); Mean Corpuscular HGB Conc 29.6 g/dL (31.6-35.5); Mean Corpuscular Hemoglobin 23.7 pg (28.0-33.3); Mean Corpuscular Volume 80.1 fL (83.0-100.0); Mean Platelet Volume 11.6 fL (9.4-12.4); Platelet Count 277 K/mcL (140-400); Red Blood Count 4.52 M/mcL (3.82-4.97); Red Cell Distribution Width 16.9 % (11.5-14.5)
[2018-02-25 06:44] LABS: BUN/Creatinine Ratio 26 (6-26); Blood Urea Nitrogen 18 mg/dL (8-23); Calcium 9.3 mg/dL (8.6-10.3); Carbon Dioxide 26 mEq/L (23-29); Chloride 103 mEq/L (98-107); Glucose 312 mg/dL (70-105); Magnesium 1.6 mg/dL (1.6-2.6); Osmolality,Calculated 298 (280-300); Phosphorous 3.5 mg/dL (2.7-4.5); Potassium 3.7 mEq/L (3.5-5.1); Sodium 137 mEq/L (136-145); eGFR For African Americans > 60 (> 60); eGFR For Non-African Americans > 60 (> 60)
[2018-02-25] MEDS: Ipratropium/Albuterol Neb 3 ML IH SCH ×4 (08:20→19:53)
[2018-02-25] MEDS: Insulin LISPRO 300 UNITS/3 ML VIAL SQ SCH ×3 (08:29→16:27)
[2018-02-25] MEDS: methylPREDNISolone 125 MG/2 ML VIAL IVP SCH ×3 (08:35→23:00)
[2018-02-25] MEDS ORDERED: predniSONE 20 MG TABLET PO SCH (09:00)
--- NOTE | 2018-02-25 11:58 | Internal Med Progress Note ---
Date of Encounter: 02/25/18 Time of Encounter: 11:58 - Assessment and plan (1) DVT prophylaxis Current Visit: Yes Status: Acute Assessment and plan: Ambulate as tolerated, SCDs (2) COPD exacerbation Current Visit: Yes Status: Chronic Assessment and plan: continue current management (3) Congestive heart failure Current Visit: Yes Status: Chronic Assessment and plan: diastolic CHF. CXR does not show pulmonary edema. BNP = 33. SOB likely mostly due to COPD. Continue home lasix, I/Os, daily weights, fluid restriction diet Qualifiers: Heart failure type: diastolic Heart failure chronicity: acute on chronic Qualified Code(s): I50.33 - Acute on chronic diastolic (congestive) heart failure (4) Diabetes mellitus type 2 in obese Current Visit: Yes Status: Chronic Assessment and plan: FS ACHS Sliding scale insulin and levemir, continue same ADA diet (5) Anxiety and depression Current Visit: Yes Status: Chronic Assessment and plan: continue home meds (6) Bipolar 1 disorder Current Visit: Yes Status: Chronic Assessment and plan: continue home meds (7) CAD (coronary artery disease) Current Visit: Yes Status: Chronic Assessment and plan: continue home meds Qualifiers: Coronary Disease-Associated Artery/Lesion type: [place] artery [place] vs. transplanted heart: [place] heart Associated angina: with stable angina Qualified Code(s): I25.118 - Atherosclerotic heart disease of [place] coronary artery with other forms of angina pectoris (8) Chronic respiratory failure with hypoxia Current Visit: Yes Status: Chronic Assessment and plan: O2 requirement at baseline, continue same - Time Spent With Patient Total time spent is greater than 50% in coordination of care (as documented) at patient's floor/unit and/or counseling patient: - Subjective Interval history: Seen and examined at bedside Still complainig of SOB Chest is CTAB No new complains - Constitutional Vitals: Temp Pulse Resp BP Pulse Ox 98.0 F 83 18 141/75 95 02/25/18 11:23 02/25/18 11:23 02/25/18 11:25 02/25/18 11:23 02/25/18 11:25 General appearance: Present: A&O X 3, pleasant, no acute distress (laying flat in no form of distress), obese - Head Head exam: Present: atraumatic, normocephalic - Eye Eye exam: Present: PERRL, conjuntiva pink, sclera anicteric Pupils: Present: PERRL - Neck Neck exam general surgery: Present: supple, trachea midline. Absent: lymphadenopathy - Respiratory Respiratory exam: Present: CTAB. Absent: accessory muscle use, rales, rhonchi, wheezes - Cardiovascular Cardiovascular exam: Present: RRR, +S1, +S2. Absent: diastolic murmur, gallop, rubs, systolic murmur - GI/Abdominal GI/Abdominal exam: Present: normal bowel sounds, soft, no peritoneal signs. Absent: distended, tenderness - Extremities Exam Extremities exam: Present: warm, radial pulses palpable and symmetrical. Absent : calf tenderness, cyanotic, pedal edema - Neurological Exam Neurological exam: Present: alert, CN II-XII intact, oriented X3, no focal deficits. Absent: pronater drift, facial droop, speech deficit - Skin Skin exam: Present: dry, intact Internal Medicine: Result - Labs CBC & Chem 7: 02/25/18 05:59 02/25/18 05:59 Labs: Short CBC 02/25/18 Range/Units 05:59 WBC 10.6 (4.3-11.1) K/mcL Hgb 10.7 L (11.5-15.4) g/dL Hct 36.2 (35.3-44.9) % Plt Count 277 (140-400) K/mcL BMP 02/25/18 05:59 Sodium 137 Potassium 3.7 Chloride 103 Carbon Dioxide 26 BUN 18 Creatinine 0.70 Glucose 312 H Calcium 9.3 Consult Discharge Plan - Plan Referrals: Isaac Morley MD [Primary Care Provider] -
[2018-02-25] MEDS ORDERED: metOLazone 5 MG TABLET PO SCH (12:00)
[2018-02-25] MEDS: clonazePAM 1 MG TABLET PO PRN ×2 (12:42→20:28)
[2018-02-25] MEDS: Cholecalciferol (D-3) 1,000 UNIT TABLET PO SCH (12:42)
[2018-02-25] MEDS: Ascorbic Acid 500 MG TABLET PO SCH (12:42)
[2018-02-25] MEDS: ARIPiprazole 10 MG TABLET PO SCH (12:42)
[2018-02-25] MEDS: Aspirin 81 MG TAB.CHEW PO SCH (12:42)
[2018-02-25] MEDS: Gabapentin 400 MG CAPSULE PO SCH ×2 (14:03→20:27)
[2018-02-25] MEDS: traMADol 50 MG TABLET PO PRN ×2 (15:30→23:01)
[2018-02-25] MEDS: Bumetanide 1 MG TABLET PO SCH (16:27)
[2018-02-25] MEDS ORDERED: Insulin DETEMIR 100 UNIT/ML X5UNITS SQ SCH (21:00)
[2018-02-25] MEDS ORDERED: Insulin LISPRO 300 UNITS/3 ML VIAL SQ SCH (21:00)
[2018-02-25] MEDS ORDERED: Insulin LISPRO 300 UNITS/3 ML VIAL SQ STA (23:48)
[2018-02-26] MEDS ORDERED: Insulin LISPRO 300 UNITS/3 ML VIAL SQ SCH (00:06)
[2018-02-26] MEDS: Ipratropium/Albuterol Neb 3 ML IH SCH ×4 (00:15→11:10)
[2018-02-26] MEDS ORDERED: Insulin LISPRO 300 UNITS/3 ML VIAL SQ STA (01:24)
[2018-02-26] MEDS ORDERED: Acetaminophen 325 MG TABLET PO PRN (01:26)
[2018-02-26 07:16] VITALS: BP 107/68
[2018-02-26] MEDS: traMADol 50 MG TABLET PO PRN (07:54)
[2018-02-26] MEDS: Gabapentin 400 MG CAPSULE PO SCH (07:54)
[2018-02-26] MEDS: Bumetanide 1 MG TABLET PO SCH (07:54)
[2018-02-26] MEDS: Cholecalciferol (D-3) 1,000 UNIT TABLET PO SCH (07:55)
[2018-02-26] MEDS: ARIPiprazole 10 MG TABLET PO SCH (07:55)
[2018-02-26] MEDS: Aspirin 81 MG TAB.CHEW PO SCH (07:55)
[2018-02-26] MEDS: Ascorbic Acid 500 MG TABLET PO SCH (07:55)
[2018-02-26] MEDS: Insulin LISPRO 300 UNITS/3 ML VIAL SQ SCH ×4 (07:56→12:09)
[2018-02-26] MEDS: clonazePAM 1 MG TABLET PO PRN (08:03)
[2018-02-26] MEDS ORDERED: Cyanocobalamin (B-12) 1,000 MCG TABLET PO SCH (09:00)
[2018-02-26] MEDS ORDERED: (Omega-3 Acid Ethyl Esters [Lovaza] 1 GM) PO SCH (09:00)
[2018-02-26] MEDS ORDERED: Isosorbide MONOnitrate (24 HR) 60 MG TAB.ER.24H PO SCH (09:00)
[2018-02-26] MEDS ORDERED: Fenofibrate 54 MG TABLET PO SCH (09:00)
[2018-02-26] MEDS ORDERED: predniSONE 20 MG TABLET PO SCH (09:00)
[2018-02-26] MEDS ORDERED: Azithromycin 250 MG TABLET PO SCH (09:00)
[2018-02-26] MEDS ORDERED: Insulin DETEMIR 100 UNIT/ML X5UNITS SQ ONE (09:32)
--- NOTE | 2018-02-26 09:53 | Discharge Summary ---
- NOTES TO OUTPATIENT PROVIDER Notes to Outpatient Provider: Placed on observation for COPDE. Discharged home with azothromycin and prednisone, uncontrolled FS worsened by steroids Orders not resulted at time of discharge: Pending orders 02/27/18 04:00 Chem 7 [Basic Metabolic Panel] AM 0400 Complete Blood Count [HEME] AM 0400 Date of Encounter: 02/26/18 Time of Encounter: 09:53 - Discharge Diagnosis (1) DVT prophylaxis Priority: Primary Status: Acute (2) COPD exacerbation Priority: Primary Status: Chronic (3) Congestive heart failure Priority: Secondary Status: Chronic Qualifiers: Heart failure type: diastolic Heart failure chronicity: acute on chronic Qualified Code(s): I50.33 - Acute on chronic diastolic (congestive) heart failure (4) Diabetes mellitus type 2 in obese Priority: Secondary Status: Chronic (5) Anxiety and depression Priority: Secondary Status: Chronic (6) Bipolar 1 disorder Priority: Secondary Status: Chronic (7) CAD (coronary artery disease) Priority: Secondary Status: Chronic Qualifiers: Coronary Disease-Associated Artery/Lesion type: [place] artery [place] vs. transplanted heart: [place] heart Associated angina: with stable angina Qualified Code(s): I25.118 - Atherosclerotic heart disease of [place] coronary artery with other forms of angina pectoris (8) Chronic respiratory failure with hypoxia Priority: Secondary Status: Chronic Hospital course: Ms. Lynch is a 62 year old female with multiple medical co-morbidities placed on obs for bronchitis and COPDE She is also diabetic with worsened uncontrolled FS due to steroids She is requesting to be discharged this a.m, as her is travelling this [facility] and she wants to be home. She is not dypsneic, her O2 requirement is at the baseline, she is hemodynamically stable She is able to check her FS and dose her insulin as necessary her FS this a.m is 311 before this [facility] administration of insulin She will be discharged home with 3 mmore days of prednisone and zithromax, to check FS ACHS at home and adjust insulin as necessary Represent to the ER if symptoms do not subside or of FS >500 persistently verbalized understanding Discharge discussed with: patient, nurse Time spent discussing smoking cessation with patient: 3 to 10 minutes - Time Spent with Patient Total time spent providing and/or coordinating discharge services: Less than 30 minutes - Discharge Medications Prescriptions: Azithromycin 250 mg PO DAILY #3 tablet predniSONE [PredniSONE] 40 mg PO DAILY #6 tablet Home Medications: metFORMIN [Glucophage] 1,000 mg PO BID 04/21/15 [History] Montelukast [Singulair] 10 mg PO HS 02/04/16 [History] Oxygen 2 l NS AD PRN 03/17/16 [History] Insulin Glargine [Lantus] 65 unit SQ BID 03/25/16 [History] Albuterol Sulfate [Albuterol Inhaler] 2 puff IH Q4HR PRN 05/01/16 [History] Citalopram Hydrobromide [Citalopram HBr] 40 mg PO DAILY 05/01/16 [History] Raloxifene [Evista] 60 mg PO DAILY 05/01/16 [History] Fenofibrate Nanocrystallized [Tricor] 145 mg PO DAILY 06/15/16 [History] Clopidogrel [Plavix] 75 mg PO QAM tablet 06/18/16 [Rx] Aspirin 81 mg PO DAILY #60 tab.chew 12/06/16 [Rx] Mag Hydrox/Al Hydrox/Simeth [Maalox] 30 ml PO Q6H PRN 30 Days oral.susp [Rx] Cholecalciferol (D-3) [Vitamin D] 1,000 unit PO DAILY 04/27/17 [History] clonazePAM [Klonopin] 0.5 mg PO BID PRN 05/28/17 [History] Magnesium Oxide [Mag-Ox] 400 mg PO DAILY #0 tab 05/29/17 [Rx] Bumetanide 2 mg PO BID 06/11/17 [History] Gabapentin [Neurontin] 800 mg PO TID 06/11/17 [History] Omeprazole [PriLOSEC] 20 mg PO DAILY 06/11/17 [History] Tizanidine HCl [Zanaflex] 4 mg PO TID PRN 06/11/17 [History] Nortriptyline [Pamelor] 25 mg PO HS 06/27/17 [History] DiphenhydraMINE [Benadryl] 25 mg PO HS 08/29/17 [History] Buspirone HCl [Buspar] 20 mg PO TID 09/12/17 [History] Tramadol HCl [Ultram] 50 mg PO TID PRN 09/19/17 [History] Cyanocobalamin (Vitamin B-12) [Vitamin B-12] 1,000 mcg PO DAILY 11/14/17 [ History] Nitroglycerin [Nitrostat] 0.4 mg SL PRN PRN 11/14/17 [History] Buprenorphine [Butrans] 1 patch TD QWEEK 11/25/17 [History] HydrOXYzine 10 mg PO TID PRN 30 Days #90 tablet 11/28/17 [Rx] ARIPiprazole [Abilify] 10 mg PO DAILY 01/18/18 [History] Isosorbide MONOnitrate [Isosorbide Mononitrate ER] 120 mg PO DAILY 01/18/18 [ History] Levothyroxine Sodium [Levoxyl] 100 mcg PO DAILY 01/18/18 [History] Metoclopramide [Reglan] 10 mg PO TID 01/18/18 [History] [place]-3 Acid Ethyl Esters [Lovaza] 1 gm PO DAILY 01/18/18 [History] Tiotropium [Spiriva] 18 mcg IH DAILY 01/18/18 [History] metOLazone [Zaroxolyn] 5 mg PO Q48H 01/18/18 [History] Potassium Chloride 20 meq PO TID #90 tab.er.prt 02/15/18 [Rx] Acetaminophen [Non-Aspirin Extra Strength] 1,000 mg PO TID 02/25/18 [History] Ascorbic Acid [Vitamin C] 500 mg PO DAILY 02/25/18 [History] Budesonide/Formoterol 160/4.5 [Symbicort 160/4.5] 1 puff IH Q8H 02/25/18 [ History] Insulin LISPRO [Humalog Kwikpen U-100] 2 - 10 unit SQ TID 02/25/18 [History] Azithromycin 250 mg PO DAILY #3 tablet 02/26/18 [Rx] predniSONE [PredniSONE] 40 mg PO DAILY #6 tablet 02/26/18 [Rx] Allergies/Adverse Reactions: 3 Allergy/AdvReac Type Severity Reaction Status Date / Time cefazolin [From [facility]] Allergy Itching Verified 11/26/17 01:38 Date of admission: 02/25/18 14:56 Primary care physician: Isaac Morley MD Discharging clinician: Khari Gallo Anticipated date of discharge: 02/26/18 - Constitutional Vitals: Temp Pulse Resp BP Pulse Ox 97.8 F 69 18 107/68 94 02/26/18 07:15 02/26/18 07:15 02/26/18 08:12 02/26/18 07:15 02/26/18 08:12 General appearance: Present: A&O X 3, pleasant, no acute distress (laying flat in no form of distress), obese - Head Head exam: Present: atraumatic, normocephalic - Eye Eye exam: Present: PERRL, conjuntiva pink, sclera anicteric Pupils: Present: PERRL - Neck Neck exam general surgery: Present: supple, trachea midline. Absent: lymphadenopathy - Respiratory Respiratory exam: Present: CTAB. Absent: accessory muscle use, rales, rhonchi, wheezes - Cardiovascular Cardiovascular exam: Present: RRR, +S1, +S2. Absent: diastolic murmur, gallop, rubs, systolic murmur - GI/Abdominal GI/Abdominal exam: Present: normal bowel sounds, soft, no peritoneal signs. Absent: distended, tenderness - Extremities Exam Extremities exam: Present: warm, radial pulses palpable and symmetrical. Absent : calf tenderness, cyanotic, pedal edema Additional comments: chronic venous stasis changes - Neurological Exam Neurological exam: Present: alert, CN II-XII intact, oriented X3, no focal deficits. Absent: pronater drift, facial droop, speech deficit - Skin Skin exam: Present: dry, intact - Patient Status Disposition: Home, Self-Care Condition: Good Functional capacity at discharge: independent ambulation Overall status at discharge: patient is progressing back to baseline - Discharge Instructions Follow Up With: Isaac Morley MD [Primary Care Provider] - - Diet and Activity Activity: resume usual activities as tolerated, wear oxygen at all times Diet: diabetic diet, low fat, low cholesterol, low salt diet
--- NOTE | 2018-02-27 17:52 | Electrocardiograph Report ---
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
--- NOTE | 2018-02-27 17:53 | Electrocardiograph Report ---
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
== END 2018-02-26 12:51 | disposition home or self-care (01) | DRG 190 ==
LOC: 2ANU 23:32 → EMEROO 23:32 → SUATTDRO 02-25 03:05 → 2ANU 02-25 04:03
PROVIDERS: ADMIT Internal Medicine; ATTEND Internal Medicine

== ENCOUNTER 2018-04-30 00:40 | Observation (INO) ==
[2018-04-30] MEDS ORDERED: methylPREDNISolone 125 MG/2 ML VIAL IVP ONE (00:56)
[2018-04-30] MEDS ORDERED: Ipratropium/Albuterol Neb 3 ML IH ONE ×2 (00:56→00:57)
[2018-04-30 01:20] LABS: Basophils % 0.5 %; Nucleated Red Blood Cells 0.1 /100 WBC (0)
[2018-04-30 01:22] LABS: Basophils # 0.1 K/mcL (0.0-0.2); Eosinophils # 0.2 K/mcL (0.0-0.6); Eosinophils % 1.6 %; Hematocrit 37.7 % (35.3-44.9); Hemoglobin 10.9 g/dL (11.5-15.4); Lymphocytes # 2.9 K/mcL (0.6-4.6); Lymphocytes % 19.4 %; Mean Corpuscular HGB Conc 28.9 g/dL (31.6-35.5); Mean Corpuscular Hemoglobin 22.2 pg (28.0-33.3); Mean Corpuscular Volume 76.6 fL (83.0-100.0); Monocytes # 0.7 K/mcL (0.0-1.3); Monocytes % 4.7 %; Neutrophils # 10.9 K/mcL (1.6-8.9); Platelet Count 276 K/mcL (140-400); Red Blood Count 4.92 M/mcL (3.82-4.97); Red Cell Distribution Width 18.9 % (11.5-14.5); Segmented Neutrophils % 72.8 %
[2018-04-30 01:40] LABS: Platelet Estimate Normal (Normal)
--- NOTE | 2018-04-30 01:40 | Emergency Department Note ---
Disposition Clinical Impression: Elevated troponin, COPD exacerbation Chest pain Qualifiers: Chest pain type: unspecified Qualified Code(s): R07.9 - Chest pain, unspecified Disposition: Admitted As Inpatient Condition: Fair General Adult HPI - General Chief complaint: ED Shortness of Breath/Dyspnea Stated complaint: SOB Time Seen by Provider: 04/30/18 00:55 Source: patient, EMS Mode of arrival: EMS Limitations: no limitations Nursing Notes Reviewed: Yes Vital Signs Reviewed: Yes - History of Present Illness HPI Narrative: Patient is a 62-year-old female presenting with dyspnea and cough. Patient has past medical history consistent of COPD, CHF, diabetes, hyperlipidemia, CAD S/P stenting. Patient states that over the past week she has had increasing shortness of breath with associated cough and sputum production. She also reports generalized chest pressure without radiation that is constant for the past 4 to 5 days, she declines exertional changes. Patient states that the discomfort she has been having is not similar to pain she has had in the past when she had stent placement. She states that she was seen by her primary care provider 4 days ago and was told to go to the emergency room with suspected COPD exacerbation and pneumonia. However patient declined going to ER department and was sent home on Bactrim. Patient states that she took 3 days worth of the Bactrim however had abdominal pain due to this and stopped taking the medication. Since this time, shortness of breath has progressively gotten worse with continued cough and sputum production. She also states that she has had a fever of 101 with some chills. She traditionally wears 2 L nasal cannula at home when active. Per EMS she was given 1 DuoNeb and oxygen saturation was 98%. Patient denies lightheadedness, dizziness, abdominal pain, nausea, vomiting. Patient also states that a few days ago she noticed increased lower extremity swelling with a 7 pound weight gain, she was directed to take an extra dose of her diuretic medication. She did this yesterday and reports her lower extremity swelling is back to her baseline. Pain Scale: 7 - Related Data Home Medications Medication Instructions Recorded Confirmed metFORMIN [Glucophage] 1,000 mg PO BID 04/21/15 04/30/18 Montelukast [Singulair] 10 mg PO HS 02/04/16 04/30/18 Oxygen 2 l NS AD PRN 03/17/16 04/30/18 Insulin Glargine [Lantus] 65 unit SQ BID 03/25/16 04/30/18 Albuterol Sulfate [Albuterol 2 puff IH Q4HR PRN 05/01/16 04/30/18 Inhaler] Citalopram Hydrobromide 40 mg PO DAILY 05/01/16 04/30/18 [Citalopram HBr] Raloxifene [Evista] 60 mg PO DAILY 05/01/16 04/30/18 Fenofibrate Nanocrystallized 145 mg PO DAILY 06/15/16 04/30/18 [Tricor] Cholecalciferol (D-3) [Vitamin D] 1,000 unit PO DAILY 04/27/17 04/30/18 clonazePAM [Klonopin] 0.5 mg PO BID PRN 05/28/17 04/30/18 Bumetanide 2 mg PO BID 06/11/17 04/30/18 Gabapentin [Neurontin] 800 mg PO TID 06/11/17 04/30/18 Omeprazole [PriLOSEC] 20 mg PO DAILY 06/11/17 04/30/18 Tizanidine HCl [Zanaflex] 4 mg PO TID PRN 06/11/17 04/30/18 Nortriptyline [Pamelor] 25 mg PO HS 06/27/17 04/30/18 DiphenhydraMINE [Benadryl] 25 mg PO HS 08/29/17 04/30/18 Buspirone HCl [Buspar] 20 mg PO TID 09/12/17 04/30/18 Tramadol HCl [Ultram] 50 mg PO TID PRN 09/19/17 04/30/18 Cyanocobalamin (Vitamin B-12) 1,000 mcg PO DAILY 11/14/17 04/30/18 [Vitamin B-12] Nitroglycerin [Nitrostat] 0.4 mg SL PRN PRN 11/14/17 04/30/18 Buprenorphine [Butrans] 1 patch TD QWEEK 11/25/17 04/30/18 ARIPiprazole [Abilify] 10 mg PO DAILY 01/18/18 04/30/18 Isosorbide MONOnitrate [Isosorbide 120 mg PO DAILY 01/18/18 04/30/18 Mononitrate ER] Levothyroxine Sodium [Levoxyl] 100 mcg PO DAILY 01/18/18 04/30/18 Metoclopramide [Reglan] 10 mg PO TID 01/18/18 04/30/18 [place]-3 Acid Ethyl Esters [Lovaza] 1 gm PO DAILY 01/18/18 04/30/18 Tiotropium [Spiriva] 18 mcg IH DAILY 01/18/18 04/30/18 metOLazone [Zaroxolyn] 5 mg PO Q48H 01/18/18 04/30/18 Acetaminophen [Non-Aspirin Extra 1,000 mg PO TID 02/25/18 04/30/18 Strength] Ascorbic Acid [Vitamin C] 500 mg PO DAILY 02/25/18 04/30/18 Budesonide/Formoterol 160/4.5 1 puff IH Q8H 02/25/18 04/30/18 [Symbicort 160/4.5] Insulin LISPRO [Humalog Kwikpen 2 - 10 unit SQ TID 02/25/18 04/30/18 U-100] Previous Rx's Medication Instructions Recorded Clopidogrel [Plavix] 75 mg PO QAM tablet 06/18/16 Aspirin 81 mg PO DAILY #60 tab.chew 12/06/16 Mag Hydrox/Al Hydrox/Simeth 30 ml PO Q6H PRN 30 Days oral.susp 03/26/17 [Maalox] Magnesium Oxide [Mag-Ox] 400 mg PO DAILY #0 tab 05/29/17 HydrOXYzine 10 mg PO TID PRN 30 Days #90 tablet 11/28/17 Potassium Chloride 20 meq PO TID #90 tab.er.prt 02/15/18 Azithromycin 250 mg PO DAILY #3 tablet 02/26/18 predniSONE [PredniSONE] 40 mg PO DAILY #6 tablet 02/26/18 Fluconazole [Diflucan] 150 mg PO ONCE #1 tab 04/14/18 Allergies Allergy/AdvReac Type Severity Reaction Status Date / Time cefazolin [From [facility]] Allergy Itching Verified 11/26/17 01:38 All systems ED: reviewed and negative except as stated. Review of Systems: As Per HPI Constitutional: Reports: fever. Denies: chills, weakness ENT ED: Denies: congestion Cardiovascular: Reports: chest pain, dyspnea on exertion. Denies: palpitations , syncope Respiratory: Reports: cough, dyspnea, wheezes, sputum production. Denies: hemoptysis Gastrointestinal: Denies: abdominal pain, nausea, vomiting, diarrhea, constipation Genitourinary: Denies: urgency, dysuria Musculoskeletal: Denies: back pain Integumentary: Denies: rash Neurological: Denies: headache, weakness, numbness, paresthesias, confusion Psychiatric: Reports: anxiety, depression Endocrine: Denies: fatigue Past Medical History - Past Medical History Medical history: Reports: arthritis, CHF, COPD, coronary artery disease, diabetes, GERD, hyperlipidemia, hypertension, osteoporosis, renal disease, thyroid disease, TIA, venous stasis, other Surgical history: Reports: angioplasty/stent, , cholecystectomy, hysterectomy Psychiatric history: Reports: anxiety, bipolar, depression, panic disorder [employer]PERINT[employer] history: Reports: bilateral tubal ligation - Social History Smoking Status: Current every day smoker Smokeless Tobacco Status: No Alcohol use: Reports: none Drug use: Reports: none Physical Exam - General Limitations: no limitations General appearance: alert, in no apparent distress - Head Head exam: atraumatic, normocephalic - Eye Eye exam: Present: normal appearance, PERRL, EOMI - ENT ENT exam: normal exam, mucous membranes moist - Neck Neck exam: Present: normal inspection - Chest Chest inspection: Present: normal inspection, symmetric chest wall rise. Absent : tenderness - Respiratory Respiratory exam: Present: wheezes (Throughout). Absent: accessory muscle use - Cardiovascular Cardiovascular exam: Present: normal rhythm, tachycardia - Abdominal Exam Abdominal exam: Present: soft, Non-Tender. Absent: distention, guarding, rebound, rigidity - Extremities Exam Extremities exam: Present: normal inspection, pedal edema (2+ bilateral lower extremity). Absent: tenderness, calf tenderness - Expanded Lower Extremity Exam Neurovascular/Tendon exam: Present: normal capillary refill. Absent: pulse deficit, motor deficit, sensory deficit - Back Exam Back exam: Present: normal inspection - Neurological Exam Neurological exam: Present: alert, oriented X3, CN II-XII intact - Psychiatric Psychiatric exam: Present: normal affect, normal mood - Skin Skin exam: Present: warm, dry, intact Course Course Narrative: We will order a chest x-ray, CBC, BMP, troponin, BNP will give patient a neb 2 and start steroid. Vital Signs Temperature 98.9 F 04/30/18 00:49 Pulse Rate 102 04/30/18 00:49 Respiratory Rate 17 04/30/18 00:49 Blood Pressure 151/67 04/30/18 00:49 O2 Sat by Pulse Oximetry 97 04/30/18 00:49 Temperature 98.9 F 04/30/18 00:49 Pulse Rate 102 04/30/18 03:03 Respiratory Rate 20 04/30/18 03:51 Blood Pressure 119/54 04/30/18 03:51 O2 Sat by Pulse Oximetry 94 04/30/18 03:03 Oxygen Delivery Oxygen Delivery Nasal Cannula Medical Decision Making - MDM Narrative Medical decision making narrative: Patient is a 62-year-old female presenting with shortness of breath and chest discomfort. Evaluation in the emergency department revealed CBC which is relatively unremarkable with WBC elevated at 15.0, however decreased from last blood work which showed WC at 15.4, patient continues to be at baseline with hemoglobin 10.9. Urinalysis was positive for bacteria and nitrite, leuk esterase however there were many squamous epithelium and patient declined symptoms at this time. BMP is unremarkable, BNP is within normal limits. Troponin is elevated at 0.04, upon review of prior laboratory work this is the first elevated troponin, could be demand ischemia. Chest x-ray is negative for acute intracranial thoracic, cardiac or pulmonary process. No evidence of pneumonia. EKG shows no acute ischemic changes, relatively unchanged from previous. Patient did receive DuoNeb 2 reports slight relief of symptoms. On re-evaluation of patient, she is sleeping comfortably in the room, in no acute distress, she has remained stable while in the ER on 2L NC, initial presentation her heart rate was elevated, on re-evaluation her heart rate was noted 92 while in the room, has remained afebrile. At this point in time would like to admit patient with ACS rule out and mild COPD exacerbation. Discussed the laboratory and imaging findings with the patient, she is agreeable to plan and disposition. Spoke with hospitalist, Dr. Acuña, at 0300 and has agreed to accept patient. - Medical Records Medical records reviewed: Yes I reviewed the patient's medical records. - Lab Data Lab results reviewed: Yes I reviewed the patient's lab results. Result diagrams: 04/30/18 01:11 04/30/18 01:11 Lab Results 04/30/18 04/30/18 04/30/18 Range/Units 01:11 01:11 01:11 WBC 15.0 H (4.3-11.1) K/mcL RBC 4.92 (3.82-4.97) M/mcL Hgb 10.9 L (11.5-15.4) g/dL Hct 37.7 (35.3-44.9) % MCV 76.6 L (83.0-100.0) fL MCH 22.2 L (28.0-33.3) pg MCHC 28.9 L (31.6-35.5) g/dL RDW 18.9 H (11.5-14.5) % Plt Count 276 (140-400) K/mcL MPV 11.0 (9.4-12.4) fL Immature Gran % 1.0 (0-4) % Seg Neutrophils % 72.8 % Lymphocytes % 19.4 % Monocytes % 4.7 % Eosinophils % 1.6 % Basophils % 0.5 % Neutrophils # 10.9 H (1.6-8.9) K/mcL Lymphocytes # 2.9 (0.6-4.6) K/mcL Monocytes # 0.7 (0.0-1.3) K/mcL Eosinophils # 0.2 (0.0-0.6) K/mcL Basophils # 0.1 (0.0-0.2) K/mcL Nucleated RBCs/100 WBC 0.1 H (0) /100 WBC Platelet Estimate Normal (Normal) Hypochromasia Present A (Not Present) Anisocytosis 1+ A (Not Present) Sodium 138 (136-145) mEq/L Potassium 3.7 (3.5-5.1) mEq/L Chloride 103 (98-107) mEq/L Carbon Dioxide 28 (23-29) mEq/L BUN 13 (8-23) mg/dL Creatinine 0.66 (0.60-1.20) mg/dL Est GFR ( Amer) > 60 (> 60) Est GFR (Non-Af Amer) > 60 (> 60) BUN/Creatinine Ratio 20 (6-26) Glucose 112 H (70-105) mg/dL Calculated Osmolality 287 (280-300) Calcium 9.0 (8.6-10.3) mg/dL Troponin I 0.04 H* (< 0.04) ng/mL B-Natriuretic Peptide 51 (Less than 100) pg/mL Urine Color (Yellow) Urine Clarity (Clear) Urine pH (5.0-8.0) pH Units Ur Specific [place] (1.010-1.025) Urine Protein (Neg-Trace) mg/dL Urine Glucose (UA) (Normal) mg/dL Urine Ketones (Negative) mg/dL Urine Blood (Negative) Urine Nitrite (Negative) Urine Bilirubin (Negative) Urine Urobilinogen (Normal) mg/dL Ur Leukocyte Esterase (Negative) Urine Microscopic RBC (0-3) per hpf Urine Microscopic WBC (0-3) per hpf Ur Squamous Epith Cells (None-Few) per lpf Urine Bacteria (None-Few) per hpf Hyaline Casts (None-Few) per lpf Ur Culture Indicated? (NO) 04/30/18 Range/Units 01:40 WBC (4.3-11.1) K/mcL RBC (3.82-4.97) M/mcL Hgb (11.5-15.4) g/dL Hct (35.3-44.9) % MCV (83.0-100.0) fL MCH (28.0-33.3) pg MCHC (31.6-35.5) g/dL RDW (11.5-14.5) % Plt Count (140-400) K/mcL MPV (9.4-12.4) fL Immature Gran % (0-4) % Seg Neutrophils % % Lymphocytes % % Monocytes % % Eosinophils % % Basophils % % Neutrophils # (1.6-8.9) K/mcL Lymphocytes # (0.6-4.6) K/mcL Monocytes # (0.0-1.3) K/mcL Eosinophils # (0.0-0.6) K/mcL Basophils # (0.0-0.2) K/mcL Nucleated RBCs/100 WBC (0) /100 WBC Platelet Estimate (Normal) Hypochromasia (Not Present) Anisocytosis (Not Present) Sodium (136-145) mEq/L Potassium (3.5-5.1) mEq/L Chloride (98-107) mEq/L Carbon Dioxide (23-29) mEq/L BUN (8-23) mg/dL Creatinine (0.60-1.20) mg/dL Est GFR ( Amer) (> 60) Est GFR (Non-Af Amer) (> 60) BUN/Creatinine Ratio (6-26) Glucose (70-105) mg/dL Calculated Osmolality (280-300) Calcium (8.6-10.3) mg/dL Troponin I (< 0.04) ng/mL B-Natriuretic Peptide (Less than 100) pg/mL Urine Color Yellow (Yellow) Urine Clarity Clear (Clear) Urine pH 6.5 (5.0-8.0) pH Units Ur Specific [place] 1.005 L (1.010-1.025) Urine Protein Negative (Neg-Trace) mg/dL Urine Glucose (UA) Normal (Normal) mg/dL Urine Ketones Negative (Negative) mg/dL Urine Blood Negative (Negative) Urine Nitrite Positive A (Negative) Urine Bilirubin Negative (Negative) Urine Urobilinogen Normal (Normal) mg/dL Ur Leukocyte Esterase Small H (Negative) Urine Microscopic RBC 0-3 (0-3) per hpf Urine Microscopic WBC 5-15 H (0-3) per hpf Ur Squamous Epith Cells Moderate H (None-Few) per lpf Urine Bacteria Many H (None-Few) per hpf Hyaline Casts None Seen (None-Few) per lpf Ur Culture Indicated? YES A (NO) - Radiology Data Radiology results reviewed: Yes I reviewed the patient's radiology results. Chest X-Ray 04/30/18 00:56 IMPRESSION: Negative portable chest. D/ / Burt Crandall MD / Burt Crandall MD Interpreting Provider: Burt Crandall MD - EKG Data EKG #1 EKG attestation: Yes I reviewed and interpreted this EKG. EKG results narrative: EKG performed at 0046 with ventricular rate of 108, sinus rhythm, [place] 175, QRS of 88, QT 344, QTc 459, no ST elevation, depression or T-wave changes, low voltage in the precordial leads. When compared to previous EKG there are: previous EKG unavailable S.B.A.R. - S.B.A.R. Situation: Demographics, MOA Background: Presenting Complaint, Relevant PMH, Meds, & Allergies Assessment: Vital Signs, Course and respsone to treatment, Exam Concerns, Pertinant Lab Results Recommendation: Recommendation based on pending studies, treatments, or consults Jazmine Report Given to: hospitalist Jazmine Repor Time: 03:00 (accepted)
[2018-04-30 01:41] LABS: Anisocytosis 1+ (Not Present); Hypochromasia Present (Not Present)
[2018-04-30 01:42] LABS: BUN/Creatinine Ratio 20 (6-26); Blood Urea Nitrogen 13 mg/dL (8-23); Carbon Dioxide 28 mEq/L (23-29); Chloride 103 mEq/L (98-107); Glucose 112 mg/dL (70-105); Osmolality,Calculated 287 (280-300); Potassium 3.7 mEq/L (3.5-5.1); Sodium 138 mEq/L (136-145); eGFR For Non-African Americans > 60 (> 60)
[2018-04-30 01:51] LABS: Troponin I 0.04 ng/mL (< 0.04)
[2018-04-30 01:54] LABS: Bilirubin,Urine Negative (Negative); Blood,Urine Negative (Negative); Clarity,Urine Clear (Clear); Color,Urine Yellow (Yellow); Glucose,Urine (UA) Normal (Normal); Ketones,Urine Negative (Negative); Leukocyte Esterase,Urine Small (Negative); Nitrite,Urine Positive (Negative); PH,Urine 6.5 pH Units (5.0-8.0); Protein,Urine Negative (Neg-Trace); Specific Gravity,Urine 1.005 (1.010-1.025); Urobilinogen,Urine Normal (Normal)
[2018-04-30 01:57] LABS: Bacteria,Urine Many per hpf (None-Few); Hyaline Casts,Urine None Seen per lpf (None-Few); RBC,Urine 0-3 per hpf (0-3); Squamous Epithelial Cell,Urine Moderate per lpf (None-Few)
--- NOTE | 2018-04-30 03:49 | Emergency Department Note ---
Disposition Clinical Impression: Elevated troponin, COPD exacerbation Chest pain Qualifiers: Chest pain type: unspecified Qualified Code(s): R07.9 - Chest pain, unspecified Disposition: Admitted As Inpatient Condition: Fair General Adult HPI - General Chief complaint: ED Shortness of Breath/Dyspnea Stated complaint: SOB Time Seen by Provider: 04/30/18 00:55 Source: patient, EMS Mode of arrival: EMS Limitations: no limitations Nursing Notes Reviewed: Yes Vital Signs Reviewed: Yes - History of Present Illness Pain Scale: 7 - Related Data Home Medications Medication Instructions Recorded Confirmed metFORMIN [Glucophage] 1,000 mg PO BID 04/21/15 04/30/18 Montelukast [Singulair] 10 mg PO HS 02/04/16 04/30/18 Oxygen 2 l NS AD PRN 03/17/16 04/30/18 Insulin Glargine [Lantus] 65 unit SQ BID 03/25/16 04/30/18 Albuterol Sulfate [Albuterol 2 puff IH Q4HR PRN 05/01/16 04/30/18 Inhaler] Citalopram Hydrobromide 40 mg PO DAILY 05/01/16 04/30/18 [Citalopram HBr] Raloxifene [Evista] 60 mg PO DAILY 05/01/16 04/30/18 Fenofibrate Nanocrystallized 145 mg PO DAILY 06/15/16 04/30/18 [Tricor] Cholecalciferol (D-3) [Vitamin D] 1,000 unit PO DAILY 04/27/17 02/25/18 clonazePAM [Klonopin] 0.5 mg PO BID PRN 05/28/17 04/30/18 Bumetanide 2 mg PO BID 06/11/17 04/30/18 Gabapentin [Neurontin] 800 mg PO TID 06/11/17 04/30/18 Omeprazole [PriLOSEC] 20 mg PO DAILY 06/11/17 04/30/18 Tizanidine HCl [Zanaflex] 4 mg PO TID PRN 06/11/17 04/30/18 Nortriptyline [Pamelor] 25 mg PO HS 06/27/17 04/30/18 DiphenhydraMINE [Benadryl] 25 mg PO HS 08/29/17 02/25/18 Buspirone HCl [Buspar] 20 mg PO TID 09/12/17 02/25/18 Tramadol HCl [Ultram] 50 mg PO TID PRN 09/19/17 04/30/18 Cyanocobalamin (Vitamin B-12) 1,000 mcg PO DAILY 11/14/17 04/30/18 [Vitamin B-12] Nitroglycerin [Nitrostat] 0.4 mg SL PRN PRN 11/14/17 04/30/18 Buprenorphine [Butrans] 1 patch TD QWEEK 11/25/17 04/30/18 ARIPiprazole [Abilify] 10 mg PO DAILY 01/18/18 04/30/18 Isosorbide MONOnitrate [Isosorbide 120 mg PO DAILY 01/18/18 04/30/18 Mononitrate ER] Levothyroxine Sodium [Levoxyl] 100 mcg PO DAILY 01/18/18 04/30/18 Metoclopramide [Reglan] 10 mg PO TID 01/18/18 04/30/18 [place]-3 Acid Ethyl Esters [Lovaza] 1 gm PO DAILY 01/18/18 04/30/18 Tiotropium [Spiriva] 18 mcg IH DAILY 01/18/18 04/30/18 metOLazone [Zaroxolyn] 5 mg PO Q48H 01/18/18 04/30/18 Acetaminophen [Non-Aspirin Extra 1,000 mg PO TID 02/25/18 04/30/18 Strength] Ascorbic Acid [Vitamin C] 500 mg PO DAILY 02/25/18 04/30/18 Budesonide/Formoterol 160/4.5 1 puff IH Q8H 02/25/18 04/30/18 [Symbicort 160/4.5] Insulin LISPRO [Humalog Kwikpen 2 - 10 unit SQ TID 02/25/18 04/30/18 U-100] Previous Rx's Medication Instructions Recorded Clopidogrel [Plavix] 75 mg PO QAM tablet 06/18/16 Aspirin 81 mg PO DAILY #60 tab.chew 12/06/16 Mag Hydrox/Al Hydrox/Simeth 30 ml PO Q6H PRN 30 Days oral.susp 03/26/17 [Maalox] Magnesium Oxide [Mag-Ox] 400 mg PO DAILY #0 tab 10/01/17 HydrOXYzine 10 mg PO TID PRN 30 Days #90 tablet 11/28/17 Potassium Chloride 20 meq PO TID #90 tab.er.prt 02/15/18 Azithromycin 250 mg PO DAILY #3 tablet 02/26/18 predniSONE [PredniSONE] 40 mg PO DAILY #6 tablet 02/26/18 Fluconazole [Diflucan] 150 mg PO ONCE #1 tab 04/14/18 Allergies Allergy/AdvReac Type Severity Reaction Status Date / Time cefazolin [From [facility]] Allergy Itching Verified 11/26/17 01:38 Constitutional: Reports: fever. Denies: chills, weakness ENT ED: Denies: congestion Cardiovascular: Reports: chest pain, dyspnea on exertion. Denies: palpitations , syncope Respiratory: Reports: cough, dyspnea, wheezes, sputum production. Denies: hemoptysis Gastrointestinal: Denies: abdominal pain, nausea, vomiting, diarrhea, constipation Genitourinary: Denies: urgency, dysuria Musculoskeletal: Denies: back pain Integumentary: Denies: rash Neurological: Denies: headache, weakness, numbness, paresthesias, confusion Psychiatric: Reports: anxiety, depression Endocrine: Denies: fatigue Past Medical History - Past Medical History Medical history: Reports: arthritis, CHF, COPD, coronary artery disease, diabetes, GERD, hyperlipidemia, hypertension, osteoporosis, renal disease, thyroid disease, TIA, venous stasis, other Surgical history: Reports: angioplasty/stent, , cholecystectomy, hysterectomy Psychiatric history: Reports: anxiety, bipolar, depression, panic disorder [employer]OLOG[employer] history: Reports: bilateral tubal ligation - Social History Smoking Status: Current every day smoker Smokeless Tobacco Status: No Alcohol use: Reports: none Drug use: Reports: none Physical Exam - General Limitations: no limitations General appearance: alert, in no apparent distress Course Vital Signs Temperature 98.9 F 04/30/18 00:49 Pulse Rate 102 04/30/18 00:49 Respiratory Rate 17 04/30/18 00:49 Blood Pressure 151/67 04/30/18 00:49 O2 Sat by Pulse Oximetry 97 04/30/18 00:49 Temperature 98.9 F 04/30/18 00:49 Pulse Rate 102 04/30/18 03:03 Respiratory Rate 20 04/30/18 03:03 Blood Pressure 146/69 04/30/18 03:03 O2 Sat by Pulse Oximetry 94 04/30/18 03:03 Oxygen Delivery Oxygen Delivery Nasal Cannula Medical Decision Making - Medical Records Medical records reviewed: Yes I reviewed the patient's medical records. - Lab Data Lab results reviewed: Yes I reviewed the patient's lab results. Result diagrams: 04/30/18 01:11 04/30/18 01:11 Lab Results 04/30/18 04/30/18 04/30/18 Range/Units 01:11 01:11 01:11 WBC 15.0 H (4.3-11.1) K/mcL RBC 4.92 (3.82-4.97) M/mcL Hgb 10.9 L (11.5-15.4) g/dL Hct 37.7 (35.3-44.9) % MCV 76.6 L (83.0-100.0) fL MCH 22.2 L (28.0-33.3) pg MCHC 28.9 L (31.6-35.5) g/dL RDW 18.9 H (11.5-14.5) % Plt Count 276 (140-400) K/mcL MPV 11.0 (9.4-12.4) fL Immature Gran % 1.0 (0-4) % Seg Neutrophils % 72.8 % Lymphocytes % 19.4 % Monocytes % 4.7 % Eosinophils % 1.6 % Basophils % 0.5 % Neutrophils # 10.9 H (1.6-8.9) K/mcL Lymphocytes # 2.9 (0.6-4.6) K/mcL Monocytes # 0.7 (0.0-1.3) K/mcL Eosinophils # 0.2 (0.0-0.6) K/mcL Basophils # 0.1 (0.0-0.2) K/mcL Nucleated RBCs/100 WBC 0.1 H (0) /100 WBC Platelet Estimate Normal (Normal) Hypochromasia Present A (Not Present) Anisocytosis 1+ A (Not Present) Sodium 138 (136-145) mEq/L Potassium 3.7 (3.5-5.1) mEq/L Chloride 103 (98-107) mEq/L Carbon Dioxide 28 (23-29) mEq/L BUN 13 (8-23) mg/dL Creatinine 0.66 (0.60-1.20) mg/dL Est GFR ( Amer) > 60 (> 60) Est GFR (Non-Af Amer) > 60 (> 60) BUN/Creatinine Ratio 20 (6-26) Glucose 112 H (70-105) mg/dL Calculated Osmolality 287 (280-300) Calcium 9.0 (8.6-10.3) mg/dL Troponin I 0.04 H* (< 0.04) ng/mL B-Natriuretic Peptide 51 (Less than 100) pg/mL Urine Color (Yellow) Urine Clarity (Clear) Urine pH (5.0-8.0) pH Units Ur Specific Johnson (1.010-1.025) Urine Protein (Neg-Trace) mg/dL Urine Glucose (UA) (Normal) mg/dL Urine Ketones (Negative) mg/dL Urine Blood (Negative) Urine Nitrite (Negative) Urine Bilirubin (Negative) Urine Urobilinogen (Normal) mg/dL Ur Leukocyte Esterase (Negative) Urine Microscopic RBC (0-3) per hpf Urine Microscopic WBC (0-3) per hpf Ur Squamous Epith Cells (None-Few) per lpf Urine Bacteria (None-Few) per hpf Hyaline Casts (None-Few) per lpf Ur Culture Indicated? (NO) 04/30/18 Range/Units 01:40 WBC (4.3-11.1) K/mcL RBC (3.82-4.97) M/mcL Hgb (11.5-15.4) g/dL Hct (35.3-44.9) % MCV (83.0-100.0) fL MCH (28.0-33.3) pg MCHC (31.6-35.5) g/dL RDW (11.5-14.5) % Plt Count (140-400) K/mcL MPV (9.4-12.4) fL Immature Gran % (0-4) % Seg Neutrophils % % Lymphocytes % % Monocytes % % Eosinophils % % Basophils % % Neutrophils # (1.6-8.9) K/mcL Lymphocytes # (0.6-4.6) K/mcL Monocytes # (0.0-1.3) K/mcL Eosinophils # (0.0-0.6) K/mcL Basophils # (0.0-0.2) K/mcL Nucleated RBCs/100 WBC (0) /100 WBC Platelet Estimate (Normal) Hypochromasia (Not Present) Anisocytosis (Not Present) Sodium (136-145) mEq/L Potassium (3.5-5.1) mEq/L Chloride (98-107) mEq/L Carbon Dioxide (23-29) mEq/L BUN (8-23) mg/dL Creatinine (0.60-1.20) mg/dL Est GFR ( Amer) (> 60) Est GFR (Non-Af Amer) (> 60) BUN/Creatinine Ratio (6-26) Glucose (70-105) mg/dL Calculated Osmolality (280-300) Calcium (8.6-10.3) mg/dL Troponin I (< 0.04) ng/mL B-Natriuretic Peptide (Less than 100) pg/mL Urine Color Yellow (Yellow) Urine Clarity Clear (Clear) Urine pH 6.5 (5.0-8.0) pH Units Ur Specific Johnson 1.005 L (1.010-1.025) Urine Protein Negative (Neg-Trace) mg/dL Urine Glucose (UA) Normal (Normal) mg/dL Urine Ketones Negative (Negative) mg/dL Urine Blood Negative (Negative) Urine Nitrite Positive A (Negative) Urine Bilirubin Negative (Negative) Urine Urobilinogen Normal (Normal) mg/dL Ur Leukocyte Esterase Small H (Negative) Urine Microscopic RBC 0-3 (0-3) per hpf Urine Microscopic WBC 5-15 H (0-3) per hpf Ur Squamous Epith Cells Moderate H (None-Few) per lpf Urine Bacteria Many H (None-Few) per hpf Hyaline Casts None Seen (None-Few) per lpf Ur Culture Indicated? YES A (NO) - Radiology Data Radiology results reviewed: Yes I reviewed the patient's radiology results. Chest X-Ray 04/30/18 00:56 IMPRESSION: Negative portable chest. D/ / Burt Crandall MD / Burt Crandall MD Interpreting Provider: Burt Crandall MD - EKG Data EKG #1 EKG attestation: Yes I reviewed and interpreted this EKG. EKG results narrative: EKG shows a sinus tachycardia with ventricular rate of 108 with a PAC. Low voltage. No acute ST segment elevation or depression. Attestation Statement - Attestation Attestation: I, Suleman Ponce MD, personally evaluated this patient and discussed their management with the resident physician. I reviewed the resident's note and agree with the documented findings, medical decision making, and plan of care. 62-year-old female presents to the emergency department with a complaint of increased shortness of breath for the past 3-4 days. Patient has a history of COPD and states this feels like her usual flareups. She denies actual chest pain but states that her lungs hurt when she breathes or coughs. No fever. Some sputum production. On examination patient is a well-developed obese female in no acute distress. She is alert and oriented 3. There is no cyanosis or diaphoresis. Breath sounds are equal bilaterally but are decreased with scattered diffuse bilateral expiratory wheezes. Heart regular with a mild tachycardia. Abdomen soft and nontender with normal bowel sounds. Labs reviewed. Troponin 0.04. No acute changes on EKG. No acute changes on chest x-ray. The hospitalist, Dr. Acuña, was consulted and accepted admission of the patient.
[2018-04-30] MEDS ORDERED: Naloxone 0.4 MG/ML INJ IVP PRN (03:59)
[2018-04-30] MEDS ORDERED: Mag Hydrox/Al Hydrox/Simeth 30 ML UDC PO PRN (04:19)
[2018-04-30] MEDS ORDERED: Nitroglycerin 0.4 MG TAB.SUBL SL PRN (04:19)
[2018-04-30] MEDS ORDERED: traMADol 50 MG TABLET PO PRN (04:19)
[2018-04-30] MEDS ORDERED: Dextrose Gel 15 GM/37.5 ML TUBE PO PRN ×2 (04:27)
[2018-04-30] MEDS ORDERED: *HR* Dextrose 50 % in Water (Syg) 50 ML SYRINGE IVP PRN (04:27)
[2018-04-30] MEDS ORDERED: D5% in Water 1,000 ML IVC PRN (04:27)
[2018-04-30] MEDS ORDERED: Azithromycin 250 MG TABLET PO SCH (04:30)
[2018-04-30] MEDS ORDERED: metOLazone 5 MG TABLET PO SCH (04:30)
[2018-04-30] MEDS: MethylPREDNISolone 40 MG/ML VIAL IVP SCH ×2 (04:44→11:43)
[2018-04-30] MEDS: Insulin LISPRO 300 UNITS/3 ML VIAL SQ SCH ×2 (06:04→11:42)
[2018-04-30] MEDS: Ipratropium/Albuterol Neb 3 ML IH SCH ×3 (06:05→11:17)
--- NOTE | 2018-04-30 07:44 | Internal Med History&Physical ---
Date of Encounter: 05/03/18 Time of Encounter: 06:30 Internal Medicine - H&P: HPI Chief complaint: Progressive SOB History of present illness: Ms. Lynch is a 62 year old female with a past medical history of COPD, CHF, diabetes, hyperlipidemia and coronary artery disease status post stenting who presents with increasing shortness of breath for the past week associated with pleuritic chest pain. Her shortness of breath associated with cough and sputum production. She states that her son recently came down with an upper respiratory tract infection and sore throat prior to her symptom onset. Patient was seen by her primary care doctor 4 days ago at which time she was instructed to go to the ED due to concern of possible pneumonia and COPD exacerbation. Patient however refused and was subsequent he started on Bactrim and sent home. However, she did not tolerate the Bactrim secondary to worsening abdominal pain after 3 days of treatment. Per medical records patient received 1 dose of DuoNeb's with oxygen with some improvement in her breathing. Her labs were significant for a elevated white blood cell count and mildly elevated troponin. EKG was unremarkable when compared to previous EKG. UA was also suggestive of UTI with a positive nitrite and mild leukocyte esterase. Past Med Surg Social Fam HX - Past Medical History Medical history: arthritis, CHF, COPD, coronary artery disease, diabetes, GERD, hyperlipidemia, hypertension, osteoporosis, renal disease, thyroid disease, TIA , venous stasis, other Additional medical history: recent UTI Psychiatric history: anxiety, bipolar, depression, panic disorder - Past Surgical History Surgical History: angioplasty/stent, , cholecystectomy, hysterectomy Additional surgical history: 4 cardiac stents, tubal ligation - Social History Smoking Status: Current every day smoker Smokeless Tobacco Status: No Alcohol use: none Drug use: none - Family History Brother Adopted: No Family Member Ethnicity: Non- Living Status: Hx Family Cardiac Disorders: Yes Father Adopted: No Family Member Ethnicity: Non- Living Status: Hx Family Cardiac Disorders: Yes (HD, HLD, HTN, [place], Triple Bypass) Hx Family Neurologic Disorders: Yes (Dementia) Mother Adopted: [place]: [place] Family Member Ethnicity: Non- Living Status: Age at : 72 Hx Family Cardiac Disorders: Yes Hx Family Respiratory Disorders: Yes Hx Family Cancer: No Hx Family GI Disorders: No Hx Family Endocrine Disorder: Yes Hx Family Neuromuscular Disorders: No Hx Family Neurologic Disorders: Yes (Strokes) Hx Family HEENT Disorders: No Hx Family Autoimmune Disorders: No Internal Medicine - H&P: Meds metFORMIN [Glucophage] 1,000 mg PO BID 04/21/15 [History] Montelukast [Singulair] 10 mg PO HS 02/04/16 [History] Oxygen 2 l NS AD PRN 03/17/16 [History] Insulin Glargine [Lantus] 65 unit SQ BID 03/25/16 [History] Albuterol Sulfate [Albuterol Inhaler] 2 puff IH Q4HR PRN 05/01/16 [History] Citalopram Hydrobromide [Citalopram HBr] 40 mg PO DAILY 05/01/16 [History] Raloxifene [Evista] 60 mg PO DAILY 05/01/16 [History] Fenofibrate Nanocrystallized [Tricor] 145 mg PO DAILY 06/15/16 [History] Clopidogrel [Plavix] 75 mg PO QAM tablet 06/18/16 [Rx] Aspirin 81 mg PO DAILY #60 tab.chew 12/06/16 [Rx] Mag Hydrox/Al Hydrox/Simeth [Maalox] 30 ml PO Q6H PRN 30 Days oral.susp [Rx] Cholecalciferol (D-3) [Vitamin D] 1,000 unit PO DAILY 04/27/17 [History] clonazePAM [Klonopin] 0.5 mg PO BID PRN 05/28/17 [History] Magnesium Oxide [Mag-Ox] 400 mg PO DAILY #0 tab 05/29/17 [Rx] Bumetanide 2 mg PO BID 06/11/17 [History] Gabapentin [Neurontin] 800 mg PO TID 06/11/17 [History] Omeprazole [PriLOSEC] 20 mg PO DAILY 06/11/17 [History] Tizanidine HCl [Zanaflex] 4 mg PO TID PRN 06/11/17 [History] Nortriptyline [Pamelor] 25 mg PO HS 06/27/17 [History] DiphenhydraMINE [Benadryl] 25 mg PO HS 08/29/17 [History] Buspirone HCl [Buspar] 20 mg PO TID 09/12/17 [History] Tramadol HCl [Ultram] 50 mg PO TID PRN 09/19/17 [History] Cyanocobalamin (Vitamin B-12) [Vitamin B-12] 1,000 mcg PO DAILY 11/14/17 [ History] Nitroglycerin [Nitrostat] 0.4 mg SL PRN PRN 11/14/17 [History] Buprenorphine [Butrans] 1 patch TD QWEEK 11/25/17 [History] HydrOXYzine 10 mg PO TID PRN 30 Days #90 tablet 11/28/17 [Rx] ARIPiprazole [Abilify] 10 mg PO DAILY 01/18/18 [History] Isosorbide MONOnitrate [Isosorbide Mononitrate ER] 120 mg PO DAILY 01/18/18 [ History] Levothyroxine Sodium [Levoxyl] 100 mcg PO DAILY 01/18/18 [History] Metoclopramide [Reglan] 10 mg PO TID 01/18/18 [History] [place]-3 Acid Ethyl Esters [Lovaza] 1 gm PO DAILY 01/18/18 [History] Tiotropium [Spiriva] 18 mcg IH DAILY 01/18/18 [History] metOLazone [Zaroxolyn] 5 mg PO Q48H 01/18/18 [History] Potassium Chloride 20 meq PO TID #90 tab.er.prt 02/15/18 [Rx] Acetaminophen [Non-Aspirin Extra Strength] 1,000 mg PO TID 02/25/18 [History] Ascorbic Acid [Vitamin C] 500 mg PO DAILY 02/25/18 [History] Budesonide/Formoterol 160/4.5 [Symbicort 160/4.5] 1 puff IH Q8H 02/25/18 [ History] Insulin LISPRO [Humalog Kwikpen U-100] 2 - 10 unit SQ TID 02/25/18 [History] Azithromycin 250 mg PO DAILY #3 tablet 02/26/18 [Rx] predniSONE [PredniSONE] 40 mg PO DAILY #6 tablet 02/26/18 [Rx] Fluconazole [Diflucan] 150 mg PO ONCE #1 tab 04/14/18 [Rx] 3 Allergy/AdvReac Type Severity Reaction Status Date / Time cefazolin [From [facility]] Allergy Itching Verified 11/26/17 01:38 All Systems PM: A 10-system review of systems was performed and is negative for pertinent findings except as documented above in the HPI. - Constitutional Constitutional: no chills, no fever(s), no night sweats - EENT Eyes: no change in vision, no discharge, no pain, no photophobia Ears: no ear discharge, no ear pain, no tinnitus Nose, mouth and throat: no dysphagia, no nasal discharge, no neck pain, no sore throat - Cardiovascular Cardiovascular ROS IM: no chest pain, no diaphoresis, no dyspnea, no lightheadedness, no palpitations, no syncope - Respiratory Respiratory: no cough, no dyspnea, no wheezing, no excessive phlegm production - Gastrointestinal Gastrointestinal: no abdominal pain, no diarrhea, no hematemesis, no hematochezia, no melena, no nausea, no vomiting - Genitourinary Genitourinary: no change in urinary stream, no dysuria, no flank pain, no hematuria - Musculoskeletal Musculoskeletal ROS IM: no numbness, no tingling - Integumentary Integumentary IM: no rash, no unusual bruising - Neurological Neurological ROS: no confusion, no convulsions, no focal weakness, no numbness, no tingling, no tremor(s) - Hematologic/Lymphatic Hematologic/Lymphatic: no easy bruising - Constitutional Vitals: Temp Pulse Resp BP Pulse Ox 99.1 F 88 18 128/71 90 04/30/18 06:42 04/30/18 06:42 04/30/18 06:42 04/30/18 06:42 04/30/18 06:42 Exam: General: Alert and oriented 3. Lying in bed in no acute distress Skin:Normal color, no rash, no lesions. HEENT:EOM, pupils equal, round and reactive. Cardiovascular:Normal S1 & S2, no rubs, murmurs or gallops. No JVD. Pulse regular. Lungs: Diffuse expiratory wheezing appreciated throughout with diminished lung sounds at the bases.. Abdomen:Soft, non-tender, no rigidity. Extremities:No deformity, no edema or tenderness, no joint swelling or clubbing. Neurological:Normal cognition and motor skills. Pulses:Carotid and radial pulses normal +2. Rest of the physical exam is non contributory Internal Med - H&P Results - Labs CBC & Chem 7: 04/30/18 07:54 04/30/18 07:54 - Assessment and plan (1) Acute exacerbation of chronic obstructive pulmonary disease (COPD) Status: Acute Assessment and plan: Symptoms of shortness of breath likely secondary to mild to moderate COPD exacerbation most likely precipitated by exposure to a sick contact. We will continue DuoNeb's, 40 mg of methylprednisolone every 6. We will start patient on Levaquin for atypical called coverage as well as treatment for possible UTI.. Consider pulmonary consult. (2) Chest pain Status: Inactive Assessment and plan: Chest pain appears to be pleuritic in nature in the setting of probable COPD exacerbation. EKG unremarkable. Mildly elevated troponin likely secondary to demand/stress. Patient on aspirin and Plavix. We will continue to monitor. Continue telemetry. Qualifiers: Chest pain type: unspecified Qualified Code(s): R07.9 - Chest pain, unspecified (3) Elevated troponin Status: Inactive Assessment and plan: Elevated troponin likely secondary to demand/stress in the setting of COPD exacerbation. We will trend troponin. Continue telemetry. (4) UTI (urinary tract infection) Status: Ruled-out Assessment and plan: Possibly urinary tract infection with positive nitrites and leukocyte esterase. We will cover with Levaquin. Qualifiers: Urinary tract infection type: acute cystitis Hematuria presence: with hematuria Qualified Code(s): N30.01 - Acute cystitis with hematuria (5) Diabetes mellitus type 2 in obese Status: Chronic Assessment and plan: Diabetic diet. Blood glucose checks. Sliding scale insulin (6) Hypothyroidism Status: Acute Assessment and plan: Continue patient's home medication. Qualifiers: Qualified Code(s): E03.9 - Hypothyroidism, unspecified - Time Spent With Patient Total time spent is greater than 50% in coordination of care (as documented) at patient's floor/unit and/or counseling patient:
[2018-04-30] MEDS ORDERED: *HR* Heparin 5,000 UNIT/ML VIAL SQ SCH (08:00)
[2018-04-30 08:11] LABS: Basophils % 0.4 %; Hematocrit 39.4 % (35.3-44.9); Hemoglobin 11.5 g/dL (11.5-15.4); Immature Granulocytes % 1.1 % (0-4); Lymphocytes # 0.7 K/mcL (0.6-4.6); Lymphocytes % 6.7 %; Mean Corpuscular HGB Conc 29.2 g/dL (31.6-35.5); Mean Corpuscular Hemoglobin 22.2 pg (28.0-33.3); Mean Corpuscular Volume 76.2 fL (83.0-100.0); Monocytes # 0.1 K/mcL (0.0-1.3); Monocytes % 0.7 %; Neutrophils # 9.4 K/mcL (1.6-8.9); Nucleated Red Blood Cells 0.2 /100 WBC (0); Platelet Count 254 K/mcL (140-400); Red Blood Count 5.17 M/mcL (3.82-4.97); Red Cell Distribution Width 18.9 % (11.5-14.5); Segmented Neutrophils % 91.1 %
[2018-04-30 08:34] LABS: Troponin I 0.03 ng/mL (< 0.04); eGFR For Non-African Americans > 60 (> 60)
[2018-04-30] MEDS ORDERED: Aspirin 81 MG TAB.CHEW PO SCH (09:00)
[2018-04-30] MEDS ORDERED: Levofloxacin 750 MG/150 ML 750 MG/150 ML BAG IVPB SCH (09:00)
[2018-04-30] MEDS ORDERED: Isosorbide MONOnitrate (24 HR) 60 MG TAB.ER.24H PO SCH (09:00)
[2018-04-30 10:00] LABS: Alanine Aminotransferase 14 Units/L (7-52); Albumin 3.6 g/dL (3.5-5.7); Albumin/Globulin Ratio 1.2 (1.1-2.2); Alkaline Phosphatase 84 Units/L (34-104); Aspartate Amino Transferase 14 Units/L (13-39); BUN/Creatinine Ratio 22 (6-26); Bilirubin,Total 0.3 mg/dL (0.3-1.0); Blood Urea Nitrogen 12 mg/dL (8-23); Calcium 9.2 mg/dL (8.6-10.3); Carbon Dioxide 27 mEq/L (23-29); Chloride 104 mEq/L (98-107); Globulin 2.9 g/dL (2.4-3.5); Glucose 194 mg/dL (70-105); Magnesium 1.7 mg/dL (1.6-2.6); Osmolality,Calculated 291 (280-300); Sodium 138 mEq/L (136-145); Total Protein 6.5 g/dL (6.4-8.9)
[2018-04-30 10:56] VITALS: BP 132/74
[2018-04-30] MEDS ORDERED: clonazePAM 0.5 MG TABLET PO SCH (12:45)
--- NOTE | 2018-04-30 14:28 | Discharge Summary ---
- NOTES TO OUTPATIENT PROVIDER Notes to Outpatient Provider: none Date of Encounter: 04/30/18 Time of Encounter: 11:00 - Discharge Diagnosis (1) UTI (urinary tract infection) Priority: Secondary Status: Ruled-out Qualifiers: Urinary tract infection type: acute cystitis Hematuria presence: with hematuria Qualified Code(s): N30.01 - Acute cystitis with hematuria (2) Acute exacerbation of chronic obstructive pulmonary disease (COPD) Priority: Primary Status: Acute (3) Diabetes mellitus type 2 in obese Priority: Secondary Status: Chronic (4) Chest pain Priority: Secondary Status: Acute Qualifiers: Chest pain type: unspecified Qualified Code(s): R07.9 - Chest pain, unspecified (5) Elevated troponin Priority: Secondary Status: Acute (6) Hypothyroidism Priority: Secondary Status: Acute Qualifiers: Qualified Code(s): E03.9 - Hypothyroidism, unspecified Hospital course: Patient is a 8-year-old female with past medical history significant for COPD, CHF, diabetes, hyperlipidemia and coronary artery disease status post stenting who presents with increasing shortness of breath for the past week associated with pleuritic chest pain. In the ER patient was without leukocytosis and afebrile. Patient was placed on 2 L of nasal cannula satting at 93-94%. Chest x-ray showed no acute findings. Patient was admitted to medical surgical floor for COPD exacerbation. Several hours later after admission, patient requested to be discharged and states that she feels better. Patient states that her symptoms resolved and attributed them to starting smoking again. She no longer requiring supplemental oxygenation satting at 90%. Patient will be discharged to follow- up with her primary care provider. Patient was also noted to have pyuria on urinalysis but is asymptomatic therefore no indication to treat. - Time Spent with Patient Total time spent providing and/or coordinating discharge services: Less than 30 minutes - Discharge Medications Home Medications: metFORMIN [Glucophage] 1,000 mg PO BID 04/21/15 [History] Montelukast [Singulair] 10 mg PO HS 02/04/16 [History] Oxygen 2 l NS AD PRN 03/17/16 [History] Insulin Glargine [Lantus] 65 unit SQ BID 03/25/16 [History] Albuterol Sulfate [Albuterol Inhaler] 2 puff IH Q4HR PRN 05/01/16 [History] Citalopram Hydrobromide [Citalopram HBr] 40 mg PO DAILY 05/01/16 [History] Raloxifene [Evista] 60 mg PO DAILY 05/01/16 [History] Fenofibrate Nanocrystallized [Tricor] 145 mg PO DAILY 06/15/16 [History] Clopidogrel [Plavix] 75 mg PO QAM tablet 06/18/16 [Rx] Aspirin 81 mg PO DAILY #60 tab.chew 12/06/16 [Rx] Mag Hydrox/Al Hydrox/Simeth [Maalox] 30 ml PO Q6H PRN 30 Days oral.susp [Rx] Cholecalciferol (D-3) [Vitamin D] 1,000 unit PO DAILY 04/27/17 [History] clonazePAM [Klonopin] 0.5 mg PO BID PRN 05/28/17 [History] Magnesium Oxide [Mag-Ox] 400 mg PO DAILY #0 tab 05/29/17 [Rx] Bumetanide 2 mg PO BID 06/11/17 [History] Gabapentin [Neurontin] 800 mg PO TID 06/11/17 [History] Omeprazole [PriLOSEC] 20 mg PO DAILY 06/11/17 [History] Tizanidine HCl [Zanaflex] 4 mg PO TID PRN 06/11/17 [History] Nortriptyline [Pamelor] 25 mg PO HS 06/27/17 [History] DiphenhydraMINE [Benadryl] 25 mg PO HS 08/29/17 [History] Buspirone HCl [Buspar] 20 mg PO TID 09/12/17 [History] Tramadol HCl [Ultram] 50 mg PO TID PRN 09/19/17 [History] Cyanocobalamin (Vitamin B-12) [Vitamin B-12] 1,000 mcg PO DAILY 11/14/17 [ History] Nitroglycerin [Nitrostat] 0.4 mg SL PRN PRN 11/14/17 [History] Buprenorphine [Butrans] 1 patch TD QWEEK 11/25/17 [History] HydrOXYzine 10 mg PO TID PRN 30 Days #90 tablet 11/28/17 [Rx] ARIPiprazole [Abilify] 10 mg PO DAILY 01/18/18 [History] Isosorbide MONOnitrate [Isosorbide Mononitrate ER] 120 mg PO DAILY 01/18/18 [ History] Levothyroxine Sodium [Levoxyl] 100 mcg PO DAILY 01/18/18 [History] Metoclopramide [Reglan] 10 mg PO TID 01/18/18 [History] [place]-3 Acid Ethyl Esters [Lovaza] 1 gm PO DAILY 01/18/18 [History] Tiotropium [Spiriva] 18 mcg IH DAILY 01/18/18 [History] metOLazone [Zaroxolyn] 5 mg PO Q48H 01/18/18 [History] Potassium Chloride 20 meq PO TID #90 tab.er.prt 02/15/18 [Rx] Acetaminophen [Non-Aspirin Extra Strength] 1,000 mg PO TID 02/25/18 [History] Ascorbic Acid [Vitamin C] 500 mg PO DAILY 02/25/18 [History] Budesonide/Formoterol 160/4.5 [Symbicort 160/4.5] 1 puff IH Q8H 02/25/18 [ History] Insulin LISPRO [Humalog Kwikpen U-100] 2 - 10 unit SQ TID 02/25/18 [History] Azithromycin 250 mg PO DAILY #3 tablet 02/26/18 [Rx] predniSONE [PredniSONE] 40 mg PO DAILY #6 tablet 02/26/18 [Rx] Fluconazole [Diflucan] 150 mg PO ONCE #1 tab 04/14/18 [Rx] Allergies/Adverse Reactions: 3 Allergy/AdvReac Type Severity Reaction Status Date / Time cefazolin [From [facility]] Allergy Itching Verified 11/26/17 01:38 Date of admission: 04/30/18 03:41 Primary care physician: Isaac Morley MD - Constitutional Vitals: Temp Pulse Resp BP Pulse Ox 98.0 F 88 18 132/74 94 04/30/18 10:54 04/30/18 10:54 04/30/18 11:17 04/30/18 10:54 04/30/18 11:17 Exam: Gen.: Nonacute distress, alert and oriented 3 Respiratory: Lungs are clear to auscultation bilaterally without any wheezing rhonchi or rales - Patient Status Disposition: Home, Self-Care Condition: Fair - Discharge Instructions Instructions: Chronic Obstructive Pulmonary Disease (DC) Follow Up With: Isaac Morley MD [Primary Care Provider] - (Follow up with primary care provider within 5-7 days after discharge.)
[2018-04-30] MEDS ORDERED: Gabapentin 400 MG CAPSULE PO SCH (15:00)
--- NOTE | 2018-05-03 21:44 | Electrocardiograph Report ---
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
== END 2018-04-30 13:28 | disposition home or self-care (01) ==
LOC: 2ANU 00:40 → EMEROOARM 00:40 → SUATTDRO 03:41 → 2ANU 03:42
PROVIDERS: ADMIT Internal Medicine; ATTEND Hospitalist

== ENCOUNTER 2018-06-04 20:34 | Observation (INO) ==
[2018-06-04] MEDS ORDERED: Ipratropium/Albuterol Neb 3 ML IH ONE (20:51)
[2018-06-04] MEDS ORDERED: methylPREDNISolone 125 MG/2 ML VIAL IVP ONE (20:51)
--- NOTE | 2018-06-04 21:04 | Emergency Department Note ---
Disposition Clinical Impression: COPD exacerbation, Hyperglycemia Anemia Qualifiers: Anemia type: unspecified type Qualified Code(s): D64.9 - Anemia, unspecified Disposition: Admitted As Inpatient Condition: Good Time of Disposition: 22:11 SOB HPI - General Chief Complaint: ED Shortness of Breath/Dyspnea Stated Complaint: SOB/KAYE Time Seen by Provider: 06/04/18 20:41 Source: patient Mode of arrival: ambulatory Limitations: no limitations Nursing Notes Reviewed: Yes Vital Signs Reviewed: Yes - History of Present Illness 62-year-old female with history of COPD on 2-3 L, CAD presents for evaluation of dyspnea. Patient states she has felt short of breath over the past couple days. Patient feels that she cannot catch her breath. Has been using her aerosols at home. Denies history of recent steroids or antibiotics. Patient denies any chest pain. Patient notes a nonproductive cough. Denies any abdominal pain. No nausea vomiting. Patient states that she was recently admitted in the past 3 months. - Related Data Home Medications Medication Instructions Recorded Confirmed metFORMIN [Glucophage] 1,000 mg PO BID 04/21/15 04/30/18 Montelukast [Singulair] 10 mg PO HS 02/04/16 04/30/18 Oxygen 2 l NS AD PRN 03/17/16 04/30/18 Insulin Glargine [Lantus] 65 unit SQ BID 03/25/16 04/30/18 Albuterol Sulfate [Albuterol 2 puff IH Q4HR PRN 05/01/16 04/30/18 Inhaler] Citalopram Hydrobromide 40 mg PO DAILY 05/01/16 04/30/18 [Citalopram HBr] Raloxifene [Evista] 60 mg PO DAILY 05/01/16 04/30/18 Fenofibrate Nanocrystallized 145 mg PO DAILY 06/15/16 04/30/18 [Tricor] Cholecalciferol (D-3) [Vitamin D] 1,000 unit PO DAILY 04/27/17 04/30/18 clonazePAM [Klonopin] 0.5 mg PO BID PRN 05/28/17 04/30/18 Bumetanide 2 mg PO BID 06/11/17 04/30/18 Gabapentin [Neurontin] 800 mg PO TID 06/11/17 04/30/18 Omeprazole [PriLOSEC] 20 mg PO DAILY 06/11/17 04/30/18 Tizanidine HCl [Zanaflex] 4 mg PO TID PRN 06/11/17 04/30/18 Nortriptyline [Pamelor] 25 mg PO HS 06/27/17 04/30/18 DiphenhydraMINE [Benadryl] 25 mg PO HS 08/29/17 04/30/18 Buspirone HCl [Buspar] 20 mg PO TID 09/12/17 04/30/18 Tramadol HCl [Ultram] 50 mg PO TID PRN 09/19/17 04/30/18 Cyanocobalamin (Vitamin B-12) 1,000 mcg PO DAILY 11/14/17 04/30/18 [Vitamin B-12] Nitroglycerin [Nitrostat] 0.4 mg SL PRN PRN 11/14/17 04/30/18 Buprenorphine [Butrans] 1 patch TD QWEEK 11/25/17 04/30/18 ARIPiprazole [Abilify] 10 mg PO DAILY 01/18/18 04/30/18 Isosorbide MONOnitrate [Isosorbide 120 mg PO DAILY 01/18/18 04/30/18 Mononitrate ER] Levothyroxine Sodium [Levoxyl] 100 mcg PO DAILY 01/18/18 04/30/18 Metoclopramide [Reglan] 10 mg PO TID 01/18/18 04/30/18 [place]-3 Acid Ethyl Esters [Lovaza] 1 gm PO DAILY 01/18/18 04/30/18 Tiotropium [Spiriva] 18 mcg IH DAILY 01/18/18 04/30/18 metOLazone [Zaroxolyn] 5 mg PO Q48H 01/18/18 04/30/18 Acetaminophen [Non-Aspirin Extra 1,000 mg PO TID 02/25/18 04/30/18 Strength] Ascorbic Acid [Vitamin C] 500 mg PO DAILY 02/25/18 04/30/18 Budesonide/Formoterol 160/4.5 1 puff IH Q8H 02/25/18 04/30/18 [Symbicort 160/4.5] Insulin LISPRO [Humalog Kwikpen 2 - 10 unit SQ TID 02/25/18 04/30/18 U-100] Previous Rx's Medication Instructions Recorded Clopidogrel [Plavix] 75 mg PO QAM tablet 06/18/16 Aspirin 81 mg PO DAILY #60 tab.chew 12/06/16 Mag Hydrox/Al Hydrox/Simeth 30 ml PO Q6H PRN 30 Days oral.susp 03/26/17 [Maalox] Magnesium Oxide [Mag-Ox] 400 mg PO DAILY #0 tab 05/29/17 HydrOXYzine 10 mg PO TID PRN 30 Days #90 tablet 11/28/17 Potassium Chloride 20 meq PO TID #90 tab.er.prt 02/15/18 Azithromycin 250 mg PO DAILY #3 tablet 02/26/18 predniSONE [PredniSONE] 40 mg PO DAILY #6 tablet 02/26/18 Fluconazole [Diflucan] 150 mg PO ONCE #1 tab 04/14/18 Sulfamethoxazole/Trimeth DS 1 each PO BID #6 tablet 05/27/18 [Bactrim DS] predniSONE [PredniSONE] 40 mg PO DAILY #10 tablet 05/27/18 Allergies Allergy/AdvReac Type Severity Reaction Status Date / Time cefazolin [From Ancef] Allergy Itching Verified 11/26/17 01:38 cephalexin [From Keflex] Allergy Hallucinati Verified 05/27/18 09:24 ng All systems ED: reviewed and negative except as stated. Constitutional: Denies: fever Cardiovascular: Denies: chest pain Respiratory: Reports: cough, dyspnea, sputum production Gastrointestinal: Denies: abdominal pain, nausea, vomiting Past Medical History - Past Medical History Source: patient Medical history: Reports: arthritis, CHF, COPD, coronary artery disease, diabetes, GERD, hyperlipidemia, hypertension, osteoporosis, renal disease, thyroid disease, TIA, venous stasis, other Surgical history: Reports: angioplasty/stent, , cholecystectomy, hysterectomy Psychiatric history: Reports: anxiety, bipolar, depression, panic disorder MEDICAL PATHOLOGIST history: Reports: bilateral tubal ligation - Social History Smoking Status: 2nd Hand Smoke Exposure Smokeless Tobacco Status: No Alcohol use: Reports: none Drug use: Reports: none Physical Exam - General Limitations: no limitations General appearance: alert, in no apparent distress - Head Head exam: atraumatic, normocephalic, normal inspection - Eye Eye exam: Present: normal appearance, PERRL, EOMI - ENT ENT exam: normal exam, mucous membranes moist - Neck Neck exam: Present: normal inspection - Chest Chest inspection: Present: normal inspection, symmetric chest wall rise - Respiratory Respiratory exam: Present: wheezes (Expiratory wheezes throughout), prolonged expiratory phase. Absent: respiratory distress - Cardiovascular Cardiovascular exam: Present: regular rate, normal rhythm. Absent: systolic murmur - Abdominal Exam Abdominal exam: Present: soft, Non-Tender - Extremities Exam Extremities exam: Present: normal inspection. Absent: pedal edema - Back Exam Back exam: Present: normal inspection - Neurological Exam Neurological exam: Present: alert, CN II-XII intact - Skin Skin exam: Present: warm, dry, intact, normal color Course Course Narrative: Patient with a history of COPD presents with an acute exacerbation. Patient will get basic cardiopulmonary screening evaluation. Aerosol steroids chest x- ray. Patient's symptoms are most consistent with her chronic disease of COPD. Disposition likely admission. - Reevaluation(s) Reevaluation #1: Patient seen and reexamined. Notes that her breathing has improved however still is complaining of some dyspnea. Patient also states that she recently was treated for UTI and finished Bactrim 2 days ago. Patient's workup discussed with her at bedside. Concerning for COPD exacerbation. Patient's chest x-ray shows no pneumonia however the patient will be admitted in start with Levaquin. Patient does meet criteria for a COPD exacerbation with increasing dyspnea with activities daily living at home. Lung exam is mildly improved from prior. Time: 22:04 Vital Signs Temperature 99.0 F 06/04/18 20:41 Pulse Rate 107 06/04/18 20:41 Respiratory Rate 20 06/04/18 20:41 Blood Pressure 109/54 06/04/18 20:41 O2 Sat by Pulse Oximetry 97 06/04/18 20:41 Temperature 99.0 F 06/04/18 20:41 Pulse Rate 107 06/04/18 20:41 Respiratory Rate 20 06/04/18 20:41 Blood Pressure 109/54 06/04/18 20:41 O2 Sat by Pulse Oximetry 96 06/04/18 20:43 Oxygen Delivery Oxygen Delivery Nasal Cannula Shortness of Breath/Dyspnea - MDM Narrative Medical decision making narrative: Patient presents for dyspnea. Patient has a strong history of COPD and prior records show the patient was admitted for an exacerbation in the past month. Patient baseline os requirements 2-3 L. Patient had increased work of breathing at triage. Patient was given aerosols as well as steroids. Patient' s symptoms intermittently improved however the patient did not get back to baseline. Patient does note increasing dyspnea with performing activities of daily living. Patient is optimized at home with aerosols. Patient was on antibiotics incidentally for UTI and recently discontinued that therapy. Patient denies any urinary complaints at this time. We will check a urinalysis to ensure symptom resolution. Patient chest x-ray shows no evidence of pneumonia however the patient does have history of chronic lung disease and will be started on Levaquin for a COPD exacerbation. Patient's symptoms are not consistent with a PE or ACS. Troponins negative and EKG shows no evidence of acute abnormality. - Lab Data Lab results reviewed: Yes I reviewed the patient's lab results. Result diagrams: 06/04/18 21:03 06/04/18 21:03 Lab Results 06/04/18 06/04/18 06/04/18 Range/Units 20:59 21:03 21:03 WBC 14.5 H (4.3-11.1) K/mcL RBC 4.70 (3.82-4.97) M/mcL Hgb 9.9 L (11.5-15.4) g/dL Hct 34.6 L (35.3-44.9) % MCV 73.6 L (83.0-100.0) fL MCH 21.1 L (28.0-33.3) pg MCHC 28.6 L (31.6-35.5) g/dL RDW 19.9 H (11.5-14.5) % Plt Count 317 (140-400) K/mcL MPV 10.9 (9.4-12.4) fL Immature Gran % 1.7 (0-4) % Seg Neutrophils % 73.3 % Lymphocytes % 18.7 % Monocytes % 4.2 % Eosinophils % 1.5 % Basophils % 0.6 % Neutrophils # 10.6 H (1.6-8.9) K/mcL Lymphocytes # 2.7 (0.6-4.6) K/mcL Monocytes # 0.6 (0.0-1.3) K/mcL Eosinophils # 0.2 (0.0-0.6) K/mcL Basophils # 0.1 (0.0-0.2) K/mcL Nucleated RBCs/100 WBC 0.1 H (0) /100 WBC Hypochromasia Present A (Not Present) Sodium 136 (136-145) mEq/L Potassium 4.0 (3.5-5.1) mEq/L Chloride 107 (98-107) mEq/L Carbon Dioxide 24 (23-29) mEq/L BUN 14 (8-23) mg/dL Creatinine 0.71 (0.60-1.20) mg/dL Est GFR ( Amer) > 60 (> 60) Est GFR (Non-Af Amer) > 60 (> 60) BUN/Creatinine Ratio 20 (6-26) Glucose 160 H (70-105) mg/dL Calculated Osmolality 286 (280-300) Calcium 9.2 (8.6-10.3) mg/dL Troponin I < 0.03 (< 0.04) ng/mL B-Natriuretic Peptide (Less than 100) pg/mL Urine Color Yellow (Yellow) Urine Clarity Clear (Clear) Urine pH 6.5 (5.0-8.0) pH Units Ur Specific Dante < 1.005 L (1.010-1.025) Urine Protein Negative (Neg-Trace) mg/dL Urine Glucose (UA) Normal (Normal) mg/dL Urine Ketones Negative (Negative) mg/dL Urine Blood Negative (Negative) Urine Nitrite Positive A (Negative) Urine Bilirubin Negative (Negative) Urine Urobilinogen Normal (Normal) mg/dL Ur Leukocyte Esterase Small H (Negative) Urine Microscopic RBC 0-3 (0-3) per hpf Urine Microscopic WBC 0-3 (0-3) per hpf Ur Squamous Epith Cells Moderate H (None-Few) per lpf Urine Bacteria Many H (None-Few) per hpf Hyaline Casts None Seen (None-Few) per lpf 06/04/18 Range/Units 21:03 WBC (4.3-11.1) K/mcL RBC (3.82-4.97) M/mcL Hgb (11.5-15.4) g/dL Hct (35.3-44.9) % MCV (83.0-100.0) fL MCH (28.0-33.3) pg MCHC (31.6-35.5) g/dL RDW (11.5-14.5) % Plt Count (140-400) K/mcL MPV (9.4-12.4) fL Immature Gran % (0-4) % Seg Neutrophils % % Lymphocytes % % Monocytes % % Eosinophils % % Basophils % % Neutrophils # (1.6-8.9) K/mcL Lymphocytes # (0.6-4.6) K/mcL Monocytes # (0.0-1.3) K/mcL Eosinophils # (0.0-0.6) K/mcL Basophils # (0.0-0.2) K/mcL Nucleated RBCs/100 WBC (0) /100 WBC Hypochromasia (Not Present) Sodium (136-145) mEq/L Potassium (3.5-5.1) mEq/L Chloride (98-107) mEq/L Carbon Dioxide (23-29) mEq/L BUN (8-23) mg/dL Creatinine (0.60-1.20) mg/dL Est GFR ( Amer) (> 60) Est GFR (Non-Af Amer) (> 60) BUN/Creatinine Ratio (6-26) Glucose (70-105) mg/dL Calculated Osmolality (280-300) Calcium (8.6-10.3) mg/dL Troponin I (< 0.04) ng/mL B-Natriuretic Peptide 63 (Less than 100) pg/mL Urine Color (Yellow) Urine Clarity (Clear) Urine pH (5.0-8.0) pH Units Ur Specific Dante (1.010-1.025) Urine Protein (Neg-Trace) mg/dL Urine Glucose (UA) (Normal) mg/dL Urine Ketones (Negative) mg/dL Urine Blood (Negative) Urine Nitrite (Negative) Urine Bilirubin (Negative) Urine Urobilinogen (Normal) mg/dL Ur Leukocyte Esterase (Negative) Urine Microscopic RBC (0-3) per hpf Urine Microscopic WBC (0-3) per hpf Ur Squamous Epith Cells (None-Few) per lpf Urine Bacteria (None-Few) per hpf Hyaline Casts (None-Few) per lpf - Radiology Data Radiology results reviewed: Yes I reviewed the patient's radiology results. Chest X-Ray 06/04/18 20:51 IMPRESSION: No acute process. D/ / Corey Landis MD / Corey Landis MD Interpreting Provider: Corey Landis MD - EKG Data EKG attestation: Yes I reviewed and interpreted this EKG. EKG shows normal: Reports: sinus rhythm Rate: Reports: tachycardia Rhythm: Reports: NSR Q waves: Reports: v1, v2 Interpretation: Reports: no acute changes, unchanged when compared to prior tracing (date), nonspecific ST-T wave changes S.B.Jim - Jazmine Situation: Demographics Background: Presenting Complaint Assessment: Vital Signs, Course and respsone to treatment, Patient/Family Expectation Recommendation: Barrier(s) to disposition, Recommendation based on pending studies, treatments, or consults S.B.ARamirez Report Given to: Dr. Kenny Lucero Repor Time: 22:46
[2018-06-04 21:14] LABS: Eosinophils % 1.5 %; Immature Granulocytes % 1.7 % (0-4)
[2018-06-04 21:16] LABS: Basophils # 0.1 K/mcL (0.0-0.2); Basophils % 0.6 %; Eosinophils # 0.2 K/mcL (0.0-0.6); Hematocrit 34.6 % (35.3-44.9); Hemoglobin 9.9 g/dL (11.5-15.4); Lymphocytes # 2.7 K/mcL (0.6-4.6); Lymphocytes % 18.7 %; Mean Corpuscular HGB Conc 28.6 g/dL (31.6-35.5); Mean Corpuscular Hemoglobin 21.1 pg (28.0-33.3); Mean Corpuscular Volume 73.6 fL (83.0-100.0); Mean Platelet Volume 10.9 fL (9.4-12.4); Monocytes # 0.6 K/mcL (0.0-1.3); Monocytes % 4.2 %; Neutrophils # 10.6 K/mcL (1.6-8.9); Nucleated Red Blood Cells 0.1 /100 WBC (0); Platelet Count 317 K/mcL (140-400); Red Cell Distribution Width 19.9 % (11.5-14.5); Segmented Neutrophils % 73.3 %
[2018-06-04 21:17] LABS: Hypochromasia Present (Not Present)
[2018-06-04 21:37] LABS: BUN/Creatinine Ratio 20 (6-26); Blood Urea Nitrogen 14 mg/dL (8-23); Calcium 9.2 mg/dL (8.6-10.3); Carbon Dioxide 24 mEq/L (23-29); Chloride 107 mEq/L (98-107); Glucose 160 mg/dL (70-105); Osmolality,Calculated 286 (280-300); Sodium 136 mEq/L (136-145); Troponin I < 0.03 ng/mL (< 0.04); eGFR For Non-African Americans > 60 (> 60)
[2018-06-04] MEDS ORDERED: Levofloxacin 750 MG/150 ML 750 MG/150 ML BAG IVPB ONE (21:54)
--- NOTE | 2018-06-04 22:09 | Emergency Department Note ---
Disposition Clinical Impression: COPD exacerbation Disposition: Admitted As Inpatient Condition: Good Referrals: NONE,PCP [Primary Care Provider] - Forms: ED Satisfaction Letter General Adult HPI - General Chief complaint: ED Shortness of Breath/Dyspnea Stated complaint: SOB/KAYE Time Seen by Provider: 06/04/18 20:41 Source: patient Mode of arrival: ambulatory Limitations: no limitations - History of Present Illness Pain Scale: 4 - Related Data Home Medications Medication Instructions Recorded Confirmed metFORMIN [Glucophage] 1,000 mg PO BID 04/21/15 04/30/18 Montelukast [Singulair] 10 mg PO HS 02/04/16 04/30/18 Oxygen 2 l NS AD PRN 03/17/16 04/30/18 Insulin Glargine [Lantus] 65 unit SQ BID 03/25/16 04/30/18 Albuterol Sulfate [Albuterol 2 puff IH Q4HR PRN 05/01/16 04/30/18 Inhaler] Citalopram Hydrobromide 40 mg PO DAILY 05/01/16 04/30/18 [Citalopram HBr] Raloxifene [Evista] 60 mg PO DAILY 05/01/16 04/30/18 Fenofibrate Nanocrystallized 145 mg PO DAILY 06/15/16 04/30/18 [Tricor] Cholecalciferol (D-3) [Vitamin D] 1,000 unit PO DAILY 04/27/17 04/30/18 clonazePAM [Klonopin] 0.5 mg PO BID PRN 05/28/17 04/30/18 Bumetanide 2 mg PO BID 06/11/17 04/30/18 Gabapentin [Neurontin] 800 mg PO TID 06/11/17 04/30/18 Omeprazole [PriLOSEC] 20 mg PO DAILY 06/11/17 04/30/18 Tizanidine HCl [Zanaflex] 4 mg PO TID PRN 06/11/17 04/30/18 Nortriptyline [Pamelor] 25 mg PO HS 06/27/17 04/30/18 DiphenhydraMINE [Benadryl] 25 mg PO HS 08/29/17 04/30/18 Buspirone HCl [Buspar] 20 mg PO TID 09/12/17 04/30/18 Tramadol HCl [Ultram] 50 mg PO TID PRN 09/19/17 04/30/18 Cyanocobalamin (Vitamin B-12) 1,000 mcg PO DAILY 11/14/17 04/30/18 [Vitamin B-12] Nitroglycerin [Nitrostat] 0.4 mg SL PRN PRN 11/14/17 04/30/18 Buprenorphine [Butrans] 1 patch TD QWEEK 11/25/17 04/30/18 ARIPiprazole [Abilify] 10 mg PO DAILY 01/18/18 04/30/18 Isosorbide MONOnitrate [Isosorbide 120 mg PO DAILY 01/18/18 04/30/18 Mononitrate ER] Levothyroxine Sodium [Levoxyl] 100 mcg PO DAILY 01/18/18 04/30/18 Metoclopramide [Reglan] 10 mg PO TID 01/18/18 04/30/18 [place]-3 Acid Ethyl Esters [Lovaza] 1 gm PO DAILY 01/18/18 04/30/18 Tiotropium [Spiriva] 18 mcg IH DAILY 01/18/18 04/30/18 metOLazone [Zaroxolyn] 5 mg PO Q48H 01/18/18 04/30/18 Acetaminophen [Non-Aspirin Extra 1,000 mg PO TID 02/25/18 04/30/18 Strength] Ascorbic Acid [Vitamin C] 500 mg PO DAILY 02/25/18 04/30/18 Budesonide/Formoterol 160/4.5 1 puff IH Q8H 02/25/18 04/30/18 [Symbicort 160/4.5] Insulin LISPRO [Humalog Kwikpen 2 - 10 unit SQ TID 02/25/18 04/30/18 U-100] Previous Rx's Medication Instructions Recorded Clopidogrel [Plavix] 75 mg PO QAM tablet 06/18/16 Aspirin 81 mg PO DAILY #60 tab.chew 12/06/16 Mag Hydrox/Al Hydrox/Simeth 30 ml PO Q6H PRN 30 Days oral.susp 03/26/17 [Maalox] Magnesium Oxide [Mag-Ox] 400 mg PO DAILY #0 tab 05/29/17 HydrOXYzine 10 mg PO TID PRN 30 Days #90 tablet 11/28/17 Potassium Chloride 20 meq PO TID #90 tab.er.prt 02/15/18 Azithromycin 250 mg PO DAILY #3 tablet 02/26/18 predniSONE [PredniSONE] 40 mg PO DAILY #6 tablet 02/26/18 Fluconazole [Diflucan] 150 mg PO ONCE #1 tab 04/14/18 Sulfamethoxazole/Trimeth DS 1 each PO BID #6 tablet 05/27/18 [Bactrim DS] predniSONE [PredniSONE] 40 mg PO DAILY #10 tablet 05/27/18 Allergies Allergy/AdvReac Type Severity Reaction Status Date / Time cefazolin [From Ancef] Allergy Itching Verified 11/26/17 01:38 cephalexin [From Keflex] Allergy Hallucinati Verified 05/27/18 09:24 ng Constitutional: Denies: fever Cardiovascular: Denies: chest pain Respiratory: Reports: cough, dyspnea, sputum production Gastrointestinal: Denies: abdominal pain, nausea, vomiting Past Medical History - Past Medical History Medical history: Reports: arthritis, CHF, COPD, coronary artery disease, diabetes, GERD, hyperlipidemia, hypertension, osteoporosis, renal disease, thyroid disease, TIA, venous stasis, other Surgical history: Reports: angioplasty/stent, , cholecystectomy, hysterectomy Psychiatric history: Reports: anxiety, bipolar, depression, panic disorder [employer] history: Reports: bilateral tubal ligation - Social History Smoking Status: 2nd Hand Smoke Exposure Smokeless Tobacco Status: No Alcohol use: Reports: none Drug use: Reports: none Physical Exam - General Limitations: no limitations General appearance: alert, in no apparent distress Course Vital Signs Temperature 99.0 F 06/04/18 20:41 Pulse Rate 107 06/04/18 20:41 Respiratory Rate 20 06/04/18 20:41 Blood Pressure 109/54 06/04/18 20:41 O2 Sat by Pulse Oximetry 97 06/04/18 20:41 Temperature 99.0 F 06/04/18 20:41 Pulse Rate 107 06/04/18 20:41 Respiratory Rate 20 06/04/18 20:41 Blood Pressure 109/54 06/04/18 20:41 O2 Sat by Pulse Oximetry 96 06/04/18 20:43 Oxygen Delivery Oxygen Delivery Nasal Cannula Medical Decision Making - Lab Data Result diagrams: 06/04/18 21:03 06/04/18 21:03 Lab Results 06/04/18 06/04/18 06/04/18 Range/Units 21:03 21:03 21:03 WBC 14.5 H (4.3-11.1) K/mcL RBC 4.70 (3.82-4.97) M/mcL Hgb 9.9 L (11.5-15.4) g/dL Hct 34.6 L (35.3-44.9) % MCV 73.6 L (83.0-100.0) fL MCH 21.1 L (28.0-33.3) pg MCHC 28.6 L (31.6-35.5) g/dL RDW 19.9 H (11.5-14.5) % Plt Count 317 (140-400) K/mcL MPV 10.9 (9.4-12.4) fL Immature Gran % 1.7 (0-4) % Seg Neutrophils % 73.3 % Lymphocytes % 18.7 % Monocytes % 4.2 % Eosinophils % 1.5 % Basophils % 0.6 % Neutrophils # 10.6 H (1.6-8.9) K/mcL Lymphocytes # 2.7 (0.6-4.6) K/mcL Monocytes # 0.6 (0.0-1.3) K/mcL Eosinophils # 0.2 (0.0-0.6) K/mcL Basophils # 0.1 (0.0-0.2) K/mcL Nucleated RBCs/100 WBC 0.1 H (0) /100 WBC Hypochromasia Present A (Not Present) Sodium 136 (136-145) mEq/L Potassium 4.0 (3.5-5.1) mEq/L Chloride 107 (98-107) mEq/L Carbon Dioxide 24 (23-29) mEq/L BUN 14 (8-23) mg/dL Creatinine 0.71 (0.60-1.20) mg/dL Est GFR ( Amer) > 60 (> 60) Est GFR (Non-Af Amer) > 60 (> 60) BUN/Creatinine Ratio 20 (6-26) Glucose 160 H (70-105) mg/dL Calculated Osmolality 286 (280-300) Calcium 9.2 (8.6-10.3) mg/dL Troponin I < 0.03 (< 0.04) ng/mL B-Natriuretic Peptide 63 (Less than 100) pg/mL Attestation Statement - Attestation Attestation: I examined this patient and my medical decision-making was reviewed with the Resident Physician. I agree with the documented findings, disposition and treatment plan as described except to the extent set forth below. 62 year-old female presented to the emergency room for cough and shortness of breath the past few days. Nonproductive cough. No sputum changes. No fevers. She states she has a history of COPD exacerbations. She states the weather and environmental factors usually cause problems for her. She is around people who smoke. She does not smoke. She was given DuoNeb treatments as well as steroids in the ER. Chest x-ray does not show any infiltrate. Heart enzymes are unremarkable. ekg unremarkable admit for lorena rosas's
[2018-06-04 22:25] LABS: Bilirubin,Urine Negative (Negative); Blood,Urine Negative (Negative); Clarity,Urine Clear (Clear); Color,Urine Yellow (Yellow); Glucose,Urine (UA) Normal (Normal); Ketones,Urine Negative (Negative); Leukocyte Esterase,Urine Small (Negative); Nitrite,Urine Positive (Negative); PH,Urine 6.5 pH Units (5.0-8.0); Protein,Urine Negative (Neg-Trace); Specific Gravity,Urine < 1.005 (1.010-1.025); Urobilinogen,Urine Normal (Normal)
[2018-06-04 22:27] LABS: Bacteria,Urine Many per hpf (None-Few); Hyaline Casts,Urine None Seen per lpf (None-Few); RBC,Urine 0-3 per hpf (0-3); Squamous Epithelial Cell,Urine Moderate per lpf (None-Few); WBC,Urine 0-3 per hpf (0-3)
[2018-06-05] MEDS ORDERED: Naloxone 0.4 MG/ML INJ IVP PRN (00:20)
[2018-06-05] MEDS ORDERED: Acetaminophen 325 MG TABLET PO PRN (00:20)
[2018-06-05] MEDS ORDERED: 0.9 % Sodium Chloride 1,000 ML IVC SCH (00:30)
[2018-06-05] MEDS ORDERED: Albuterol 2.5 MG/3 ML NEBULIZER IH PRN (00:35)
--- NOTE | 2018-06-05 00:38 | Internal Med History&Physical ---
<Tommy Goss Tiara - Last Filed: 06/05/18 04:08> Date of Encounter: 06/05/18 Time of Encounter: 00:38 Internal Medicine - H&P: HPI Chief complaint: Shortness of Breath Admitted From: Emergency Dept Plans for Post Hospital Care: Home History of present illness: Ms. Lynch is a 62 year old female with a past medical history of COPD, diastolic heart failure with preserved ejection fraction, coronary artery disease, diabetes mellitus, gastroesophageal reflux disease, hyperlipidemia, hypertension, chronic kidney disease. She presented to the emergency department for 1 day of increasing shortness of breath. She chronically uses 2- 3 L oxygen at home and this was not helping. She denies increased sputum production or change of sputum color. She has a history of COPD exacerbation hospitalizations in the past. In the emergency department she was found to be hypoxic and in mild respiratory distress. She was given 1 dose of Solu-Medrol, 1 dose of DuoNeb, 1 dose of Levaquin. Her oxygen saturation did improve to the low 90s on 2 L. Chest x-ray was performed which showed no focal consolidation or opacification, EKG revealed sinus tachycardia, troponin was less than 0.03, BNP was 63 which is around her baseline. Her white count was found to be 14.5, urinalysis was positive for bacteria, nitrites, leukocyte esterase. She was recently seen at her PCP for urinary tract infection. She has a past history of tobacco use but states she does not currently smoke, however she is a household around other smokers. She denies alcohol or drug use. Past Med Surg Social Fam HX - Past Medical History Medical history: arthritis, CHF, COPD, coronary artery disease, diabetes, GERD, hyperlipidemia, hypertension, osteoporosis, renal disease, thyroid disease, TIA , venous stasis, other Additional medical history: recent UTI Psychiatric history: anxiety, bipolar, depression, panic disorder - Past Surgical History Surgical History: angioplasty/stent, , cholecystectomy, hysterectomy Additional surgical history: 4 cardiac stents, tubal ligation - Social History Smoking Status: 2nd Hand Smoke Exposure Smokeless Tobacco Status: No Alcohol use: none Drug use: none - Family History Brother Adopted: No Family Member Ethnicity: Non- Living Status: Hx Family Cardiac Disorders: Yes Father Adopted: No Family Member Ethnicity: Non- Living Status: Hx Family Cardiac Disorders: Yes (HD, HLD, HTN, OR, Triple Bypass) Hx Family Neurologic Disorders: Yes (Dementia) Mother Adopted: No Family Member Ethnicity: Non- Living Status: Hx Family Cardiac Disorders: Yes Hx Family Respiratory Disorders: Yes Hx Family Cancer: No Hx Family GI Disorders: No Hx Family Endocrine Disorder: Yes Hx Family Neuromuscular Disorders: No Hx Family Neurologic Disorders: Yes (Strokes) Hx Family HEENT Disorders: No Hx Family Autoimmune Disorders: No Internal Medicine - H&P: Meds metFORMIN [Glucophage] 1,000 mg PO BID 04/21/15 [History] Montelukast [Singulair] 10 mg PO HS 02/04/16 [History] Oxygen 2 l NS AD PRN 03/17/16 [History] Insulin Glargine [Lantus] 65 unit SQ BID 03/25/16 [History] Albuterol Sulfate [Albuterol Inhaler] 2 puff IH Q4HR PRN 05/01/16 [History] Citalopram Hydrobromide [Citalopram HBr] 40 mg PO DAILY 05/01/16 [History] Raloxifene [Evista] 60 mg PO DAILY 05/01/16 [History] Fenofibrate Nanocrystallized [Tricor] 145 mg PO DAILY 06/15/16 [History] Clopidogrel [Plavix] 75 mg PO QAM tablet 06/18/16 [Rx] Aspirin 81 mg PO DAILY #60 tab.chew 12/06/16 [Rx] Mag Hydrox/Al Hydrox/Simeth [Maalox] 30 ml PO Q6H PRN 30 Days oral.susp [Rx] Cholecalciferol (D-3) [Vitamin D] 1,000 unit PO DAILY 04/27/17 [History] clonazePAM [Klonopin] 0.5 mg PO BID PRN 05/28/17 [History] Magnesium Oxide [Mag-Ox] 400 mg PO DAILY #0 tab 05/29/17 [Rx] Bumetanide 2 mg PO BID 06/11/17 [History] Gabapentin [Neurontin] 800 mg PO TID 06/11/17 [History] Omeprazole [PriLOSEC] 20 mg PO DAILY 06/11/17 [History] Tizanidine HCl [Zanaflex] 4 mg PO TID PRN 06/11/17 [History] Nortriptyline [Pamelor] 25 mg PO HS 06/27/17 [History] DiphenhydraMINE [Benadryl] 25 mg PO HS 08/29/17 [History] Buspirone HCl [Buspar] 20 mg PO TID 09/12/17 [History] Tramadol HCl [Ultram] 50 mg PO TID PRN 09/19/17 [History] Cyanocobalamin (Vitamin B-12) [Vitamin B-12] 1,000 mcg PO DAILY 11/14/17 [ History] Nitroglycerin [Nitrostat] 0.4 mg SL PRN PRN 11/14/17 [History] Buprenorphine [Butrans] 1 patch TD QWEEK 11/25/17 [History] HydrOXYzine 10 mg PO TID PRN 30 Days #90 tablet 11/28/17 [Rx] ARIPiprazole [Abilify] 10 mg PO DAILY 01/18/18 [History] Isosorbide MONOnitrate [Isosorbide Mononitrate ER] 120 mg PO DAILY 01/18/18 [ History] Levothyroxine Sodium [Levoxyl] 100 mcg PO DAILY 01/18/18 [History] Metoclopramide [Reglan] 10 mg PO TID 01/18/18 [History] [place]-3 Acid Ethyl Esters [Lovaza] 1 gm PO DAILY 01/18/18 [History] Tiotropium [Spiriva] 18 mcg IH DAILY 01/18/18 [History] metOLazone [Zaroxolyn] 5 mg PO Q48H 01/18/18 [History] Potassium Chloride 20 meq PO TID #90 tab.er.prt 02/15/18 [Rx] Acetaminophen [Non-Aspirin Extra Strength] 1,000 mg PO TID 02/25/18 [History] Ascorbic Acid [Vitamin C] 500 mg PO DAILY 02/25/18 [History] Budesonide/Formoterol 160/4.5 [Symbicort 160/4.5] 1 puff IH Q8H 02/25/18 [ History] Insulin LISPRO [Humalog Kwikpen U-100] 2 - 10 unit SQ TID 02/25/18 [History] Azithromycin 250 mg PO DAILY #3 tablet 02/26/18 [Rx] predniSONE [PredniSONE] 40 mg PO DAILY #6 tablet 02/26/18 [Rx] Fluconazole [Diflucan] 150 mg PO ONCE #1 tab 04/14/18 [Rx] Sulfamethoxazole/Trimeth DS [Bactrim DS] 1 each PO BID #6 tablet 05/27/18 [Rx] predniSONE [PredniSONE] 40 mg PO DAILY #10 tablet 05/27/18 [Rx] 3 Allergy/AdvReac Type Severity Reaction Status Date / Time cefazolin [From Ancef] Allergy Itching Verified 11/26/17 01:38 cephalexin [From Keflex] Allergy Hallucinati Verified 05/27/18 09:24 ng All Systems PM: A 10-system review of systems was performed and is negative for pertinent findings except as documented above in the HPI. - Constitutional Constitutional: no chills, no fever(s) - Cardiovascular Cardiovascular ROS IM: dyspnea, no chest pain, no orthopnea, no syncope - Respiratory Respiratory: cough, dyspnea, no excessive phlegm production, no change in phlegm color - Gastrointestinal Gastrointestinal: no abdominal pain, no diarrhea, no vomiting - Genitourinary Genitourinary: no urinary frequency, no urinary hesitancy, no urinary incontinence, no urinary urgency - Neurological Neurological ROS: no abnormal speech, no focal weakness - Psychiatric Psychiatric: no confusion - Constitutional Vitals: Temp Pulse Resp BP Pulse Ox 98.7 F 86 16 112/68 93 06/04/18 23:36 06/04/18 23:36 06/04/18 23:36 06/04/18 23:36 06/04/18 23:36 Exam: Patient in no acute distress, alert and oriented 3 Cranial nerves II through XII intact Heart in regular rate and rhythm without murmur or gallop Lungs exhibited scattered diffuse rhonchi, no wheeze or rales auscultated Abdomen soft and nontender with normal bowel sounds present Bilateral lower extremities 1+ pitting edematous Skin warm and dry Internal Med - H&P Results - Labs CBC & Chem 7: 06/04/18 21:03 06/04/18 21:03 - Assessment and plan (1) Acute and chronic respiratory failure with hypoxia Current Visit: Yes Status: Acute Assessment and plan: Patient presented with complaint of worsening shortness of breath 1 day She was found to be hypoxic on home 2 L on presentation Her hypoxia improved with Solu-Medrol, DuoNeb Respiratory failure likely secondary to COPD exacerbation Differentials include pneumonia and heart failure exacerbation Chest x-ray demonstrated no focal opacification or consolidation White count 14.5 however likely secondary to UTI Patient denied increased sputum production or sputum color change BNP was at patient's baseline and exam did not corroborate heart failure EKG demonstrated sinus tachycardia, troponin was less than 0.03 Plan Supplemental oxygen with continuous pulse oximetry Duonebs scheduled Q6H, Albuterol Nebs PRN Q2H Prednisone 40mg PO x 5days, Zosyn 3.375 IVPB Blood Cultures pending (2) Acute exacerbation of chronic obstructive pulmonary disease (COPD) Current Visit: Yes Status: Acute Assessment and plan: Patient has history of 2 L dependent COPD with history of exacerbation requiring hospitalization She states she has quit smoking however she does still live in a household with secondhand smoke exposure Plan as seen above (3) UTI (urinary tract infection) Current Visit: Yes Status: Acute Assessment and plan: Patient presented to primary care physician several days ago for UTI and was prescribed an unknown antibiotic On presentation to the emergency department for shortness of breath UA did reveal bacteria, leukocyte esterase, nitrites Patient was started on Zosyn for UTI and COPD exacerbation coverage Her recent hospitalization cultured E. coli resistant to Bactrim and Levaquin Patient does not meet sepsis criteria We will continue to monitor Qualifiers: Urinary tract infection type: acute cystitis Hematuria presence: without hematuria Qualified Code(s): N30.00 - Acute cystitis without hematuria (4) Diastolic congestive heart failure with preserved left ventricular function , NYHA class 2 Current Visit: No Status: Chronic Assessment and plan: Patient has known history of diastolic heart failure with preserved ejection fraction Last echocardiogram in January 2018 demonstrated mild diastolic dysfunction with ejection fraction of 70-75% BNP was at baseline for this admission and patient does not exhibit physical exam findings associated with heart failure exacerbation We will continue to monitor (5) CAD (coronary artery disease) Current Visit: No Status: Chronic Assessment and plan: Patient has known history of coronary artery disease requiring stent placement Patient denied active chest pain on this admission and troponin was less than 0.03 Plan to continue home medications once verified by pharmacy Qualifiers: Coronary Disease-Associated Artery/Lesion type: [place] artery [place] vs. transplanted heart: [place] heart Associated angina: with stable angina Qualified Code(s): I25.118 - Atherosclerotic heart disease of [place] coronary artery with other forms of angina pectoris (6) GERD (gastroesophageal reflux disease) Current Visit: No Status: Chronic Assessment and plan: History of GERD controlled on home medications We will continue home medications once verified by pharmacy Qualifiers: Esophagitis presence: without esophagitis Qualified Code(s): K21.9 - Gastro -esophageal reflux disease without esophagitis (7) Hyperlipidemia Current Visit: No Status: Chronic Assessment and plan: Chronic hyperlipidemia controlled on home medications We will continue home medications once her of the pharmacy Qualifiers: Hyperlipidemia type: pure hypercholesterolemia Qualified Code(s): E78.00 - Pure hypercholesterolemia, unspecified; E78.0 - Pure hypercholesterolemia (8) Hypertension Current Visit: No Status: Chronic Assessment and plan: Chronic hypertension controlled on home medications Blood pressure stable on admission and currently We will continue home medications once verified by pharmacy Qualifiers: Hypertension type: essential hypertension Qualified Code(s): I10 - Essential (primary) hypertension (9) Type 2 diabetes mellitus Current Visit: No Status: Chronic Assessment and plan: Chronic type II diabetic Plan Hold home medications Diabetic diet and before meals at bedtime glucose checks 22 units basal insulin at bedtime Low-dose corrective sliding scale insulin protocol 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 mellitus snf insulin use: with snf use Diabetes mellitus complication status: with neurologic complications Diabetes mellitus complication detail: with polyneuropathy Qualified Code(s): E11.42 - Type 2 diabetes mellitus with diabetic polyneuropathy; Z79.4 - terminal manager (current) use of insulin; Z79.4 - terminal manager (current) use of insulin; Z79.4 - half-way ( current) use of insulin; Z79.4 - half-way (current) use of insulin (10) DVT prophylaxis Current Visit: Yes Status: Acute Assessment and plan: 5000 units subcutaneous heparin every 8 hours - Time Spent With Patient Total time spent is greater than 50% in coordination of care (as documented) at patient's floor/unit and/or counseling patient: <Yazan Cox - Last Filed: 06/05/18 04:30> Date of Encounter: 06/05/18 Time of Encounter: 03:40 - Constitutional Constitutional: fever(s), no chills, no night sweats - EENT Eyes: no blurry vision, no change in vision Nose, mouth and throat: no nasal congestion, no sinus pressure, no sore throat - Cardiovascular Cardiovascular ROS IM: dyspnea - Respiratory Respiratory: cough, dyspnea, chest congestion, pain with cough, no excessive phlegm production, no change in phlegm color - Gastrointestinal Gastrointestinal: no abdominal pain, no diarrhea, no hematemesis, no hematochezia, no melena, no vomiting - Genitourinary Genitourinary: dysuria, no flank pain, no hematuria - Musculoskeletal Musculoskeletal ROS IM: no arthralgias, no back pain - Integumentary Integumentary IM: no rash, no jaundice - Neurological Neurological ROS: no dizziness, no focal weakness, no frequent falls, no headache(s) - Psychiatric Psychiatric: no anxiety, no depression - Endocrine Endocrine IM: no polydipsia, no polyuria - Allergic/Immunologic Allergic/Immunologic: wheezing, no GI upset with certain foods - Constitutional Vitals: Temp Pulse Resp BP Pulse Ox 98.6 F 82 18 131/73 93 06/05/18 02:29 06/05/18 02:29 06/05/18 03:56 06/05/18 02:29 06/05/18 03:56 General appearance: Present: cooperative, mild distress, A&O X 3, pleasant - Head Head exam: Present: normal inspection - Eye Eye exam: Present: PERRL. Absent: scleral icterus - ENT ENT exam: Present: mucous membranes moist, normal exam - Neck Neck exam general surgery: Present: full ROM, supple. Absent: tenderness, nuchal rigidity, thyromegaly - Respiratory Respiratory exam: Present: prolonged expiratory phase, respiratory distress ( mikld), rhonchi, wheezes. Absent: chest wall tenderness - Cardiovascular Cardiovascular exam: Present: distant heart sounds, RRR, +S1, +S2 - GI/Abdominal GI/Abdominal exam: Present: normal bowel sounds, soft. Absent: hepatomegaly, mass, splenomegaly, tenderness - Extremities Exam Extremities exam: Present: warm, radial pulses palpable and symmetrical. Absent : calf tenderness, pedal edema, tenderness - Back Exam Back exam: Absent: CVA tenderness (L), CVA tenderness (R) - Neurological Exam Neurological exam: Present: alert, oriented X3, no focal deficits - Psychiatric Psychiatric exam: Present: normal affect, normal mood - Skin Skin exam: Present: dry, intact, warm Internal Med - H&P Results - Labs CBC & Chem 7: 06/04/18 21:03 06/04/18 21:03 - Diagnostic Studies Chest x-ray Status: image reviewed by me (no infiltrate) - Assessment and plan (1) GERD (gastroesophageal reflux disease) Current Visit: No Status: Chronic Qualifiers: Esophagitis presence: without esophagitis Qualified Code(s): K21.9 - Gastro -esophageal reflux disease without esophagitis (2) UTI (urinary tract infection) Current Visit: Yes Status: Acute Qualifiers: Urinary tract infection type: acute cystitis Hematuria presence: without hematuria Qualified Code(s): N30.00 - Acute cystitis without hematuria (3) Acute and chronic respiratory failure with hypoxia Current Visit: Yes Status: Acute (4) CAD (coronary artery disease) Current Visit: No Status: Chronic Qualifiers: Coronary Disease-Associated Artery/Lesion type: [place] artery [place] vs. transplanted heart: [place] heart Associated angina: with stable angina Qualified Code(s): I25.118 - Atherosclerotic heart disease of [place] coronary artery with other forms of angina pectoris (5) Type 2 diabetes mellitus Current Visit: No Status: Chronic 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 mellitus snf insulin use: with terminal system operator use Diabetes mellitus complication status: with neurologic complications Diabetes mellitus complication detail: with polyneuropathy Qualified Code(s): E11.42 - Type 2 diabetes mellitus with diabetic polyneuropathy; Z79.4 - half-way (current) use of insulin; Z79.4 - half-way (current) use of insulin; Z79.4 - half-way ( current) use of insulin; Z79.4 - half-way (current) use of insulin (6) Hyperlipidemia Current Visit: No Status: Chronic Qualifiers: Hyperlipidemia type: pure hypercholesterolemia Qualified Code(s): E78.00 - Pure hypercholesterolemia, unspecified; E78.0 - Pure hypercholesterolemia (7) Hypertension Current Visit: No Status: Chronic Qualifiers: Hypertension type: essential hypertension Qualified Code(s): I10 - Essential (primary) hypertension (8) Acute exacerbation of chronic obstructive pulmonary disease (COPD) Current Visit: Yes Status: Acute (9) Diastolic congestive heart failure with preserved left ventricular function , NYHA class 2 Current Visit: No Status: Chronic (10) DVT prophylaxis Current Visit: Yes Status: Acute - Time Spent With Patient Total time spent is greater than 50% in coordination of care (as documented) at patient's floor/unit and/or counseling patient: - Attending Attestation I discussed the patient [place], past medical history, review of systems, lab data , and viewed her chest x-ray images with Dr. Goss. I then saw and examined patient independently. She is resting in bed comfortably, but she is audibly coughing and wheezing. On exam, she has diffuse scattered wheezes and rhonchi and markedly prolonged expiratory phase and some mild to moderate respiratory distress. She does feel better since her presentation to the ER. However, she is far from her baseline. She has been on recent antibiotics for UTI and still has some dysuria. Given her respiratory symptoms, recurrent UTI symptoms, subjective fevers, and elevated white count, we will place her on Zosyn in addition to her steroids and aerosols. She will need close monitoring clinically and adjustment of medications as necessary. Patient has extensive smoking history, but she has been smoke free for the last 2 years now. Unfortunately, she is exposed to smokers around her home and family. Other than my comments above and noted physical exam findings, I agree with Dr. Goss's assessment and plan.
[2018-06-05] MEDS ORDERED: *HR* Dextrose 50 % in Water (Syg) 50 ML SYRINGE IVP PRN (02:09)
[2018-06-05] MEDS ORDERED: Dextrose Gel 15 GM/37.5 ML TUBE PO PRN ×2 (02:09)
[2018-06-05] MEDS ORDERED: D5% in Water 1,000 ML IVC PRN (02:09)
[2018-06-05] MEDS: Ipratropium/Albuterol Neb 3 ML IH SCH ×4 (03:54→22:10)
[2018-06-05 05:17] LABS: Nucleated Red Blood Cells 0.2 /100 WBC (0)
[2018-06-05 05:19] LABS: Basophils # 0.1 K/mcL (0.0-0.2); Basophils % 0.4 %; Eosinophils % 0.1 %; Hematocrit 35.4 % (35.3-44.9); Hemoglobin 9.9 g/dL (11.5-15.4); Lymphocytes # 0.9 K/mcL (0.6-4.6); Lymphocytes % 7.5 %; Mean Corpuscular Hemoglobin 20.6 pg (28.0-33.3); Mean Corpuscular Volume 73.8 fL (83.0-100.0); Mean Platelet Volume 11.1 fL (9.4-12.4); Monocytes # 0.1 K/mcL (0.0-1.3); Neutrophils # 10.2 K/mcL (1.6-8.9); Platelet Count 300 K/mcL (140-400); Red Cell Distribution Width 19.9 % (11.5-14.5)
[2018-06-05] MEDS: *HR* Heparin 5,000 UNIT/ML VIAL SQ SCH ×3 (05:28→21:21)
[2018-06-05 05:40] LABS: BUN/Creatinine Ratio 23 (6-26); Blood Urea Nitrogen 13 mg/dL (8-23); Calcium 9.1 mg/dL (8.6-10.3); Carbon Dioxide 24 mEq/L (23-29); Chloride 108 mEq/L (98-107); Glucose 235 mg/dL (70-105); Osmolality,Calculated 292 (280-300); Potassium 4.4 mEq/L (3.5-5.1); Sodium 137 mEq/L (136-145); eGFR For Non-African Americans > 60 (> 60)
[2018-06-05 06:06] LABS: Anisocytosis 1+ (Not Present); Hypochromasia Present (Not Present)
[2018-06-05 06:07] LABS: Large Platelets Present (Not Present); Microcytosis Present (Not Present); Platelet Estimate Normal (Normal); Toxic Granulation Present (Not Present)
[2018-06-05] MEDS: traMADol 50 MG TABLET PO PRN ×3 (06:13→20:39)
[2018-06-05] MEDS: clonazePAM 1 MG TABLET PO PRN ×2 (06:13→21:16)
[2018-06-05] MEDS: Bumetanide 1 MG TABLET PO SCH ×2 (08:25→21:19)
[2018-06-05] MEDS: ARIPiprazole 10 MG TABLET PO SCH (08:25)
[2018-06-05] MEDS: Gabapentin 400 MG CAPSULE PO SCH ×3 (08:25→21:19)
[2018-06-05] MEDS: predniSONE 20 MG TABLET PO SCH (08:25)
[2018-06-05] MEDS: Isosorbide MONOnitrate (24 HR) 60 MG TAB.ER.24H PO SCH (08:25)
[2018-06-05] MEDS: Piperacillin/Tazobactam 3.375 GM in 0.9 % Sodium Chloride Mini Bag 100 ML IVPB SCH ×2 (08:26→15:49)
[2018-06-05] MEDS: Insulin LISPRO 300 UNITS/3 ML VIAL SQ SCH ×3 (08:27→16:55)
[2018-06-05] MEDS ORDERED: levoFLOXacin 750 MG TABLET PO SCH (09:00)
--- NOTE | 2018-06-05 09:55 | Event Note ---
Date of Encounter: 06/05/18 Time of Encounter: 09:47 Ms. Lynch is a 62-year-old female with a past medical history of COPD, diastolic heart failure preserved ejection fraction, CAD, DM, GERD, HLD, HTN, CKD. She presents to [facility] with a one-month history of cough, wheezing and dyspnea which began to rapidly worsened yesterday evening. She was admitted with acute exacerbation of COPD secondary to URI and bronchitis. She has had prior hospitalizations for COPD exacerbations. Additionally, the patient was found to have acute on chronic respiratory failure requiring additional O2 supplementation for respiratory support. Chest x-ray shows no focal consolidation or opacifications. She was found to have leukocytosis, UA reveals positive nitrates and leukocyte esterase. She is being admitted and treated for a COPD exacerbation and UTI. Per my assessment this morning the patient appears to have improved overnight she is not resting comfortably on baseline 3 L nasal cannula. Lungs are diminished throughout bilaterally AP and L with expiratory wheezing. She is nontoxic appearing and has no service criteria and is resting comfortably without respiratory distress at this time--continue aerosols and oral steroids, continue respiratory support and continuous SPO2 monitoring Denies any urinary symptoms including flank pain, dysuria, fevers, chills, abdominal pain, urinary frequency. Recent urine cultures reveal Escherichia coli sensitive to Zosyn. Zosyn chosen over Rocephin as the patient has had a reaction of hallucinations with cephalosporins.
[2018-06-05] MEDS ORDERED: Nitroglycerin 0.4 MG TAB.SUBL SL PRN (13:09)
[2018-06-05] MEDS ORDERED: metOLazone 5 MG TABLET PO SCH (13:15)
[2018-06-05] MEDS ORDERED: Budesonide/Formoterol 160/4.5 1 PUFF INH IH SCH (13:15)
[2018-06-05] MEDS: Tiotropium 18 MCG inhalation IH SCH (16:27)
[2018-06-05] MEDS ORDERED: Insulin DETEMIR 100 UNIT/ML X5UNITS SQ SCH ×2 (21:00)
[2018-06-05] MEDS: Insulin DETEMIR 100 UNIT/ML X5UNITS SQ SCH (21:51)
[2018-06-05] MEDS: Budesonide/Formoterol 160/4.5 1 PUFF INH IH SCH (22:10)
[2018-06-06] MEDS: Piperacillin/Tazobactam 3.375 GM in 0.9 % Sodium Chloride Mini Bag 100 ML IVPB SCH ×2 (00:02→08:43)
[2018-06-06] MEDS: Ipratropium/Albuterol Neb 3 ML IH SCH ×3 (04:25→15:46)
[2018-06-06] MEDS: *HR* Heparin 5,000 UNIT/ML VIAL SQ SCH (06:14)
[2018-06-06] MEDS: traMADol 50 MG TABLET PO PRN (06:14)
[2018-06-06] MEDS: Tiotropium 18 MCG inhalation IH SCH (07:27)
[2018-06-06] MEDS: Insulin LISPRO 300 UNITS/3 ML VIAL SQ SCH ×2 (07:44→11:33)
[2018-06-06] MEDS: Bumetanide 1 MG TABLET PO SCH (07:50)
[2018-06-06] MEDS: Isosorbide MONOnitrate (24 HR) 60 MG TAB.ER.24H PO SCH (07:50)
[2018-06-06] MEDS: ARIPiprazole 10 MG TABLET PO SCH (07:51)
[2018-06-06] MEDS: predniSONE 20 MG TABLET PO SCH (07:51)
[2018-06-06] MEDS: Gabapentin 400 MG CAPSULE PO SCH (07:51)
[2018-06-06] MEDS: clonazePAM 1 MG TABLET PO PRN (08:01)
[2018-06-06] MEDS ORDERED: Aspirin 81 MG TAB.CHEW PO SCH (09:00)
[2018-06-06] MEDS ORDERED: Omega-3 Acid Ethyl Esters [Lovaza] 1 GM PO SCH (09:00)
[2018-06-06] MEDS ORDERED: Ascorbic Acid 500 MG TABLET PO SCH (09:00)
[2018-06-06] MEDS ORDERED: Magnesium Oxide 400 MG TABLET PO SCH (09:00)
[2018-06-06] MEDS ORDERED: Cyanocobalamin (B-12) 1,000 MCG TABLET PO SCH (09:00)
[2018-06-06] MEDS ORDERED: Cholecalciferol (D-3) 1,000 UNIT TABLET PO SCH (09:00)
[2018-06-06] MEDS ORDERED: Fenofibrate 54 MG TABLET PO SCH (09:00)
[2018-06-06] MEDS: Budesonide/Formoterol 160/4.5 1 PUFF INH IH SCH (10:10)
[2018-06-06] MEDS: Insulin DETEMIR 100 UNIT/ML X5UNITS SQ SCH (10:55)
[2018-06-06 11:09] VITALS: BP 114/70
--- NOTE | 2018-06-06 15:32 | Discharge Summary ---
- NOTES TO OUTPATIENT PROVIDER Notes to Outpatient Provider: Follow-up with scheduled palliative care appointment Date of Encounter: 06/06/18 Time of Encounter: 11:00 - Discharge Diagnosis (1) GERD (gastroesophageal reflux disease) Priority: Secondary Status: Chronic Qualifiers: Esophagitis presence: without esophagitis Qualified Code(s): K21.9 - Gastro -esophageal reflux disease without esophagitis (2) UTI (urinary tract infection) Priority: Primary Status: Acute Qualifiers: Urinary tract infection type: acute cystitis Hematuria presence: without hematuria Qualified Code(s): N30.00 - Acute cystitis without hematuria (3) Acute and chronic respiratory failure with hypoxia Priority: Primary Status: Acute (4) CAD (coronary artery disease) Priority: Secondary Status: Chronic Qualifiers: Coronary Disease-Associated Artery/Lesion type: [place] artery [place] vs. 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; Z79.4 - USP (current) use of insulin; Z79.4 - USP ( current) use of insulin; Z79.4 - USP (current) use of insulin (6) Hyperlipidemia Priority: Secondary Status: Chronic Qualifiers: Hyperlipidemia type: pure hypercholesterolemia Qualified Code(s): E78.00 - Pure hypercholesterolemia, unspecified; E78.0 - Pure hypercholesterolemia (7) Hypertension Priority: Secondary Status: Chronic Qualifiers: Hypertension type: essential hypertension Qualified Code(s): I10 - Essential (primary) hypertension (8) Acute exacerbation of chronic obstructive pulmonary disease (COPD) Priority: Primary Status: Acute (9) Diastolic congestive heart failure with preserved left ventricular function , NYHA class 2 Priority: Secondary Status: Chronic Hospital course: Patient is a 62 year old female with a past medical history of COPD, diastolic heart failure with preserved ejection fraction, coronary artery disease, diabetes mellitus, gastroesophageal reflux disease, hyperlipidemia, hypertension and chronic kidney disease who presented to the emergency department for 1 day of increasing shortness of breath. She chronically uses 2-3 L oxygen at home and this was not helping. She denies increased sputum production or change of sputum color. She has a history of COPD exacerbation hospitalizations in the past. In the emergency department she was found to be hypoxic and in mild respiratory distress. She was given 1 dose of Solu-Medrol, 1 dose of DuoNeb, 1 dose of Levaquin. Her oxygen saturation did improve to the low 90s on 2 L. Chest x- ray was performed which showed no focal consolidation or opacification, EKG revealed sinus tachycardia, troponin was less than 0.03, BNP was 63 which is around her baseline. Her white count was found to be 14.5, urinalysis was positive for bacteria, nitrites, leukocyte esterase. During patients hospital stay her symptoms of acute on chronic hypoxic respiratory failure resolved with treatment on oral prednisone and IV antibiotics. She is at her baseline O2 requirement so will be discharged to complete a 5 day course of Levaquin for UTI/COPD exacerbation. - Time Spent with Patient Total time spent providing and/or coordinating discharge services: Less than 30 minutes - Discharge Medications Prescriptions: Levofloxacin [Levaquin] 500 mg PO DAILY #3 tablet predniSONE [PredniSONE] 40 mg PO DAILY #10 tablet Home Medications: metFORMIN [Glucophage] 1,000 mg PO BID 04/21/15 [History] Montelukast [Singulair] 10 mg PO HS 02/04/16 [History] Oxygen 2 l NS AD PRN 03/17/16 [History] Insulin Glargine [Lantus] 65 unit SQ BID 03/25/16 [History] Albuterol Sulfate [Albuterol Inhaler] 2 puff IH Q4HR PRN 05/01/16 [History] Citalopram Hydrobromide [Citalopram HBr] 40 mg PO DAILY 05/01/16 [History] Raloxifene [Evista] 60 mg PO DAILY 05/01/16 [History] Fenofibrate Nanocrystallized [Tricor] 145 mg PO DAILY 06/15/16 [History] Clopidogrel [Plavix] 75 mg PO QAM tablet 06/18/16 [Rx] Aspirin 81 mg PO DAILY #60 tab.chew 12/06/16 [Rx] Cholecalciferol (D-3) [Vitamin D] 1,000 unit PO DAILY 04/27/17 [History] clonazePAM [Klonopin] 0.5 mg PO BID PRN 05/28/17 [History] Magnesium Oxide [Mag-Ox] 400 mg PO DAILY #0 tab 05/29/17 [Rx] Bumetanide 2 mg PO BID 06/11/17 [History] Gabapentin [Neurontin] 800 mg PO TID 06/11/17 [History] Omeprazole [PriLOSEC] 20 mg PO DAILY 06/11/17 [History] Tizanidine HCl [Zanaflex] 4 mg PO TID PRN 06/11/17 [History] Nortriptyline [Pamelor] 25 mg PO HS 06/27/17 [History] DiphenhydraMINE [Benadryl] 25 mg PO HS 08/29/17 [History] Buspirone HCl [Buspar] 20 mg PO TID 09/12/17 [History] Tramadol HCl [Ultram] 50 mg PO TID PRN 09/19/17 [History] Cyanocobalamin (Vitamin B-12) [Vitamin B-12] 1,000 mcg PO DAILY 11/14/17 [ History] Nitroglycerin [Nitrostat] 0.4 mg SL PRN PRN 11/14/17 [History] Buprenorphine [Butrans] 1 patch TD QWEEK 11/25/17 [History] HydrOXYzine 10 mg PO TID PRN 30 Days #90 tablet 11/28/17 [Rx] ARIPiprazole [Abilify] 10 mg PO DAILY 01/18/18 [History] Isosorbide MONOnitrate [Isosorbide Mononitrate ER] 120 mg PO DAILY 01/18/18 [ History] Levothyroxine Sodium [Levoxyl] 100 mcg PO DAILY 01/18/18 [History] Metoclopramide [Reglan] 10 mg PO TID 01/18/18 [History] [place]-3 Acid Ethyl Esters [Lovaza] 1 gm PO DAILY 01/18/18 [History] Tiotropium [Spiriva] 18 mcg IH DAILY 01/18/18 [History] metOLazone [Zaroxolyn] 5 mg PO Q48H 01/18/18 [History] Potassium Chloride 20 meq PO TID #90 tab.er.prt 02/15/18 [Rx] Ascorbic Acid [Vitamin C] 500 mg PO DAILY 02/25/18 [History] Budesonide/Formoterol 160/4.5 [Symbicort 160/4.5] 1 puff IH Q8H 02/25/18 [ History] Insulin LISPRO [Humalog Kwikpen U-100] 2 - 10 unit SQ TID 02/25/18 [History] Levofloxacin [Levaquin] 500 mg PO DAILY #3 tablet 06/06/18 [Rx] predniSONE [PredniSONE] 40 mg PO DAILY #10 tablet 06/06/18 [Rx] Allergies/Adverse Reactions: 3 Allergy/AdvReac Type Severity Reaction Status Date / Time cefazolin [From Ancef] Allergy Itching Verified 11/26/17 01:38 cephalexin [From Keflex] Allergy Hallucinati Verified 05/27/18 09:24 ng Date of admission: 06/04/18 22:30 Primary care physician: PCP NONE Consults: 06/05/18 08:51 Consult to Nurse Navigator [CONS] Routine Comment: COPD - Constitutional Vitals: Temp Pulse Resp BP Pulse Ox 97.6 F 86 16 114/70 96 06/06/18 11:08 06/06/18 11:08 06/06/18 11:08 06/06/18 11:08 06/06/18 11:08 General appearance: Present: cooperative, mild distress, A&O X 3, pleasant Exam: Gen.: Nonacute distress, alert and oriented 3 ENT: Mucosal membranes moist Respiratory: Lungs are clear to auscultation bilaterally without any wheezing rhonchi or rales Cardiovascular: Normal S1 and S2 regular rate rhythm no murmurs rubs or gallops Abdomen: Soft, nontender and nondistended with positive bowel sounds Extremities: No lower extremity edema Skin: Normal color - Patient Status Disposition: Home, Self-Care Condition: Good - Discharge Instructions Instructions: Prednisone (By mouth), Levofloxacin (By mouth), COPD Exacerbation , Backend Developer (GEN) Follow Up With: NONE,PCP [Primary Care Provider] - (patient is following up with palliative care group this in [place])
--- NOTE | 2018-06-06 18:24 | Electrocardiograph Report ---
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
== END 2018-06-06 16:04 | disposition home or self-care (01) ==
LOC: EMEROOARM 20:34 → 3BNU 20:34
PROVIDERS: ADMIT Pediatrics; ATTEND Pediatrics

== ENCOUNTER 2018-10-25 02:56 | Inpatient (IN) ==
[2018-10-25] MEDS ORDERED: Ipratropium/Albuterol Neb 3 ML IH STA ×2 (03:32→04:50)
--- NOTE | 2018-10-25 03:38 | Emergency Department Note ---
Disposition Clinical Impression: COPD exacerbation, Laryngitis Diarrhea Qualifiers: Diarrhea type: unspecified type Qualified Code(s): R19.7 - Diarrhea, unspecified Disposition: Admitted As Inpatient Condition: Fair Referrals: Isaac Morley MD [Primary Care Provider] - Forms: ED Satisfaction Letter General Adult HPI - General Chief complaint: ED Shortness of Breath/Dyspnea Stated complaint: DiF Time Seen by Provider: 10/25/18 02:58 Source: patient Limitations: no limitations - History of Present Illness HPI Narrative: Pt discharged from this facility 4-5 days ago after admission for HF/pneumonia (this is per her report - D/C summary says pneumonia ruled out, D/C diagnoses include COPD exacerbation and acute on chronic heart failure). Was admitted with a similar presentation the week before per her report. Says she is no better, thinks she was sent home too early. Finished her steroids 2d ago, was not sent home with antibiotics. Also complaining of loss of voice/laryngitis. Complains of continued cough, pain "in my right lung" that is no better or no worse than on discharge 4-5d ago. No fever. No abdominal pain. Has had diarrhea, about 4-5 BMs/day. No sx of GI bleeding. Appetite present but decreased. Says she only urinated 3x today. Also c/o right hip pain that started this AM,no injury/fall. Has been able to bear weight - has been walking on it today. Pain Scale: 7 - Related Data Home Medications Medication Instructions Recorded Confirmed metFORMIN [Glucophage] 1,000 mg PO BID 04/21/15 10/17/18 Montelukast [Singulair] 10 mg PO QPM 02/04/16 10/17/18 Oxygen 2 l NS DAILY 03/17/16 10/17/18 Insulin Glargine [Lantus] 80 unit SQ BID 03/25/16 10/17/18 Albuterol Sulfate [Albuterol 2 puff IH Q4HR PRN 05/01/16 10/17/18 Inhaler] Raloxifene [Evista] 60 mg PO DAILY 05/01/16 10/17/18 Fenofibrate Nanocrystallized 145 mg PO DAILY 06/15/16 10/17/18 [Tricor] Cholecalciferol (D-3) [Vitamin D] 1,000 unit PO DAILY 04/27/17 10/17/18 Gabapentin [Neurontin] 800 mg PO TID 06/11/17 10/17/18 Omeprazole [PriLOSEC] 20 mg PO DAILY 06/11/17 10/17/18 Buspirone HCl [Buspar] 20 mg PO TID 09/12/17 10/17/18 Tramadol HCl [Ultram] 50 mg PO TID PRN 09/19/17 10/17/18 Nitroglycerin [Nitrostat] 0.4 mg SL PRN PRN 11/14/17 10/17/18 ARIPiprazole [Abilify] 10 mg PO DAILY 01/18/18 10/17/18 Isosorbide MONOnitrate [Isosorbide 120 mg PO DAILY 01/18/18 10/17/18 Mononitrate ER] Levothyroxine Sodium [Levoxyl] 100 mcg PO QAM 01/18/18 10/17/18 Metoclopramide [Reglan] 10 mg PO ACHS PRN 01/18/18 10/17/18 Tiotropium [Spiriva] 1 puff IH DAILY 01/18/18 10/17/18 Insulin LISPRO [Humalog Kwikpen 3 - 10 unit SQ TID 02/25/18 10/17/18 U-100] Albuterol Neb [Proventil Neb] 2.5 mg IH Q4HR PRN 09/09/18 10/17/18 Atorvastatin [Lipitor] 40 mg PO DAILY 09/09/18 10/17/18 Dicyclomine [Bentyl] 10 mg PO BID PRN 09/09/18 10/17/18 Metoprolol XL (24 HR) Succ [Toprol 50 mg PO DAILY 09/09/18 10/17/18 Xl] Budesonide/Formoterol 160/4.5 2 puff IH BIDR 10/10/18 10/17/18 [Symbicort 160/4.5] Buprenorphine [Butrans] 1 patch TD MO 10/10/18 10/17/18 Citalopram Hydrobromide [Celexa] 40 mg PO DAILY 10/10/18 10/17/18 Cyclobenzaprine HCl 10 mg PO TID 10/10/18 10/17/18 Etodolac [Lodine] 400 mg PO BID 10/10/18 10/17/18 Ondansetron ODT [Zofran ODT] 4 mg SL BID PRN 10/10/18 10/17/18 Potassium Chloride 20 meq PO BID PRN 10/10/18 10/17/18 clonazePAM [Klonopin] 0.5 mg PO BID PRN 10/10/18 10/17/18 metOLazone [Zaroxolyn] 5 mg PO DAILY PRN 10/17/18 10/17/18 Previous Rx's Medication Instructions Recorded Aspirin 81 mg PO DAILY #60 tab.chew 12/06/16 Methocarbamol [Robaxin] 500 mg PO Q8HR #15 tablet 08/23/18 Furosemide [Lasix] 40 mg PO BIDDIURETIC #120 tablet 10/18/18 predniSONE [PredniSONE] 10 mg PO DAILY #6 tablet 10/18/18 Allergies Allergy/AdvReac Type Severity Reaction Status Date / Time cefazolin [From Ancef] Allergy Itching Verified 10/10/18 02:46 cephalexin [From Keflex] Allergy Hallucinati Verified 10/10/18 02:46 ng All systems ED: reviewed and negative except as stated. 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 Gen.: Well-developed, well-nourished patient lying in bed who appears ill but nontoxic. Head: Atraumatic, normocephalic. Eyes: Sclerae anicteric. ENT: Mucous membranes moist. Neck: No JVD. Heart: Mildly tachycardic and regular without appreciable murmur. Lungs: Normal respiratory pattern without respiratory distress, coarse BS b/l with scattered rhonchi and diffuse end-expiratory wheezing. Abdomen: Soft, nontender, nondistended, no guarding or peritoneal signs. Skin: Warm and dry without rash. Chronic venous stasis changes noted LLE>RLE Neurologic: Awake, alert with normal speech, hoarse voice, normal mental status. Cranial nerves grossly intact. No focal deficits or lateralizing signs. Psychiatric: Depressed mood and affect. Musculoskeletal: No signs of trauma or DVT. - General Limitations: no limitations General appearance: alert Course Course Narrative: Minimal improvement with nebs. Not comfortable going home. Treating for COPD exacerbation. Vital Signs Temperature 97.7 F 10/25/18 03:05 Pulse Rate 97 10/25/18 03:05 Respiratory Rate 18 10/25/18 03:05 Blood Pressure 125/50 10/25/18 03:05 O2 Sat by Pulse Oximetry 97 10/25/18 03:05 Temperature 97.7 F 10/25/18 03:05 Pulse Rate 97 10/25/18 03:05 Respiratory Rate 16 10/25/18 05:09 Blood Pressure 125/50 10/25/18 03:05 O2 Sat by Pulse Oximetry 94 10/25/18 05:09 Oxygen Delivery Oxygen Delivery Nasal Cannula Medical Decision Making - Lab Data Result diagrams: 10/25/18 04:11 10/25/18 04:11 Lab Results 10/25/18 10/25/18 10/25/18 Range/Units 04:10 04:11 04:11 WBC 15.0 H (4.3-11.1) K/mcL RBC 5.09 H (3.82-4.97) M/mcL Hgb 10.3 L (11.5-15.4) g/dL Hct 36.4 (35.3-44.9) % MCV 71.5 L (83.0-100.0) fL MCH 20.2 L (28.0-33.3) pg MCHC 28.3 L (31.6-35.5) g/dL RDW 20.2 H (11.5-14.5) % Plt Count 264 (140-400) K/mcL MPV 10.2 (9.4-12.4) fL Sodium 138 (136-145) mEq/L Potassium 3.6 (3.5-5.1) mEq/L Chloride 101 (98-107) mEq/L Carbon Dioxide 32 H (23-29) mEq/L BUN 24 H (8-23) mg/dL Creatinine 0.83 (0.60-1.20) mg/dL Est GFR ( Amer) > 60 (> 60) Est GFR (Non-Af Amer) > 60 (> 60) BUN/Creatinine Ratio 29 H (6-26) Glucose 130 H (70-105) mg/dL Calculated Osmolality 292 (280-300) Calcium 8.7 (8.6-10.3) mg/dL Troponin I < 0.03 (< 0.04) ng/mL Urine Color Yellow (Yellow) Urine Clarity Cloudy A (Clear) Urine pH 6.0 (5.0-8.0) pH Units Ur Specific [place] 1.005 L (1.010-1.025) Urine Protein Negative (Neg-Trace) mg/dL Urine Glucose (UA) Normal (Normal) mg/dL Urine Ketones Negative (Negative) mg/dL Urine Blood Negative (Negative) Urine Nitrite Negative (Negative) Urine Bilirubin Moderate H (Negative) Urine Urobilinogen Normal (Normal) mg/dL Ur Leukocyte Esterase Trace H (Negative) Urine Microscopic RBC 0-3 (0-3) per hpf Urine Microscopic WBC 3-5 H (0-3) per hpf Ur Squamous Epith Cells Moderate H (None-Few) per lpf Urine Bacteria Many H (None-Few) per hpf Hyaline Casts None Seen (None-Few) per lpf - EKG Data EKG #1 EKG attestation: Yes I reviewed and interpreted this EKG. EKG shows normal: sinus rhythm (rate 104, normal intervals/qrs. No acute ischemic changes. No change from 10/16 except rate.) Rate: tachycardia
[2018-10-25 04:34] LABS: Bilirubin,Urine Moderate (Negative); Blood,Urine Negative (Negative); Clarity,Urine Cloudy (Clear); Color,Urine Yellow (Yellow); Glucose,Urine (UA) Normal (Normal); Ketones,Urine Negative (Negative); Leukocyte Esterase,Urine Trace (Negative); Nitrite,Urine Negative (Negative); Protein,Urine Negative (Neg-Trace); Specific Gravity,Urine 1.005 (1.010-1.025); Urobilinogen,Urine Normal (Normal)
[2018-10-25 04:34] LABS: Hematocrit 36.4 % (35.3-44.9); Hemoglobin 10.3 g/dL (11.5-15.4); Mean Corpuscular HGB Conc 28.3 g/dL (31.6-35.5); Mean Corpuscular Hemoglobin 20.2 pg (28.0-33.3); Mean Corpuscular Volume 71.5 fL (83.0-100.0); Mean Platelet Volume 10.2 fL (9.4-12.4); Platelet Count 264 K/mcL (140-400); Red Blood Count 5.09 M/mcL (3.82-4.97); Red Cell Distribution Width 20.2 % (11.5-14.5)
[2018-10-25 04:37] LABS: Bacteria,Urine Many per hpf (None-Few); Hyaline Casts,Urine None Seen per lpf (None-Few); RBC,Urine 0-3 per hpf (0-3); Squamous Epithelial Cell,Urine Moderate per lpf (None-Few)
[2018-10-25 04:47] LABS: BUN/Creatinine Ratio 29 (6-26); Blood Urea Nitrogen 24 mg/dL (8-23); Calcium 8.7 mg/dL (8.6-10.3); Carbon Dioxide 32 mEq/L (23-29); Chloride 101 mEq/L (98-107); Glucose 130 mg/dL (70-105); Osmolality,Calculated 292 (280-300); Potassium 3.6 mEq/L (3.5-5.1); Sodium 138 mEq/L (136-145); eGFR For Non-African Americans > 60 (> 60)
[2018-10-25 04:48] LABS: Troponin I < 0.03 ng/mL (< 0.04)
[2018-10-25] MEDS ORDERED: Doxycycline 100 MG CAPSULE PO ONE (05:46)
[2018-10-25] MEDS ORDERED: predniSONE 20 MG TABLET PO STA (05:46)
[2018-10-25] MEDS ORDERED: Albuterol 2.5 MG/3 ML NEBULIZER IH STA (05:46)
--- NOTE | 2018-10-25 07:57 | Internal Med History&Physical ---
Date of Encounter: 10/25/18 Time of Encounter: 11:00 Internal Medicine - H&P: HPI Chief complaint: Shortness of breath History of present illness: Patient is a 63-year-old female with past medical history significant for restrictive lung disease, diastolic CHF, COPD, DMII, Obesity, GERD, Bipolar I, TIA, HLD and HTN who presents with shortness of breath; this is patient's third admission for the same symptoms this month alone. Patient reported to the ER physician of having a "pain in her right lung" in addition to persistent cough that had not improved after last discharge. Patient has been admitted 3 times in the last month and was recently discharged on 10/18/18. In the ER, chest x-ray showed no acute findings and CT of the chest was also ordered once patient arrived to the floor which did not show any acute findings either. On exam patient without wheezing but did sound tight. Patient will be admitted for further management and workup for acute on chronic COPD exacerbation. Past Med Surg Social Fam HX - Past Medical History Medical history: arthritis, CHF, COPD, coronary artery disease, diabetes, GERD, hyperlipidemia, hypertension, osteoporosis, renal disease, thyroid disease, TIA, venous stasis Additional medical history: recent UTI Psychiatric history: anxiety, bipolar, depression, panic disorder - Past Surgical History Surgical History: angioplasty/stent, , cholecystectomy, hysterectomy Additional surgical history: 4 cardiac stents, tubal ligation - Social History Smoking Status: Current some day smoker Smokeless Tobacco Status: No Alcohol use: none Drug use: none - Family History Brother Adopted: No Family Member Ethnicity: Non- Living Status: Hx Family Cardiac Disorders: Yes Father Adopted: No Family Member Ethnicity: Non- Living Status: Hx Family Cardiac Disorders: Yes (HD, HLD, HTN, [place], Triple Bypass) Hx Family Neurologic Disorders: Yes (Dementia) Mother Adopted: No Family Member Ethnicity: Non- Living Status: Hx Family Cardiac Disorders: Yes Hx Family Respiratory Disorders: Yes Hx Family Cancer: No Hx Family GI Disorders: No Hx Family Endocrine Disorder: Yes (DM) Hx Family Neuromuscular Disorders: No Hx Family Neurologic Disorders: Yes (Strokes) Hx Family HEENT Disorders: No Hx Family Autoimmune Disorders: No Internal Medicine - H&P: Meds metFORMIN [Glucophage] 1,000 mg PO BID 04/21/15 [History] Montelukast [Singulair] 10 mg PO QPM 02/04/16 [History] Oxygen 2 l NS DAILY 03/17/16 [History] Insulin Glargine [Lantus] 80 unit SQ BID 03/25/16 [History] Albuterol Sulfate [Albuterol Inhaler] 2 puff IH Q4HR PRN 05/01/16 [History] Raloxifene [Evista] 60 mg PO DAILY 05/01/16 [History] Fenofibrate Nanocrystallized [Tricor] 145 mg PO DAILY 06/15/16 [History] Aspirin 81 mg PO DAILY #60 tab.chew 12/06/16 [Rx] Cholecalciferol (D-3) [Vitamin D] 1,000 unit PO DAILY 04/27/17 [History] Gabapentin [Neurontin] 800 mg PO TID 06/11/17 [History] Omeprazole [PriLOSEC] 20 mg PO DAILY 06/11/17 [History] Buspirone HCl [Buspar] 20 mg PO TID 09/12/17 [History] Tramadol HCl [Ultram] 50 mg PO TID PRN 09/19/17 [History] Nitroglycerin [Nitrostat] 0.4 mg SL PRN PRN 11/14/17 [History] ARIPiprazole [Abilify] 10 mg PO DAILY 01/18/18 [History] Isosorbide MONOnitrate [Isosorbide Mononitrate ER] 120 mg PO DAILY 01/18/18 [History] Levothyroxine Sodium [Levoxyl] 100 mcg PO QAM 01/18/18 [History] Metoclopramide [Reglan] 10 mg PO ACHS PRN 01/18/18 [History] Tiotropium [Spiriva] 1 puff IH DAILY 01/18/18 [History] Insulin LISPRO [Humalog Kwikpen U-100] 3 - 10 unit SQ TID 02/25/18 [History] Methocarbamol [Robaxin] 500 mg PO Q8HR #15 tablet 08/23/18 [Rx] Albuterol Neb [Proventil Neb] 2.5 mg IH Q4HR PRN 09/09/18 [History] Atorvastatin [Lipitor] 40 mg PO DAILY 09/09/18 [History] Dicyclomine [Bentyl] 10 mg PO BID PRN 09/09/18 [History] Metoprolol XL (24 HR) Succ [Toprol Xl] 50 mg PO DAILY 09/09/18 [History] Budesonide/Formoterol 160/4.5 [Symbicort 160/4.5] 2 puff IH BIDR 10/10/18 [History] Buprenorphine [Butrans] 1 patch TD MO 10/10/18 [History] Citalopram Hydrobromide [Celexa] 40 mg PO DAILY 10/10/18 [History] Cyclobenzaprine HCl 10 mg PO TID 10/10/18 [History] Etodolac [Lodine] 400 mg PO BID 10/10/18 [History] Ondansetron ODT [Zofran ODT] 4 mg SL BID PRN 10/10/18 [History] Potassium Chloride 20 meq PO BID PRN 10/10/18 [History] clonazePAM [Klonopin] 0.5 mg PO BID PRN 10/10/18 [History] metOLazone [Zaroxolyn] 5 mg PO DAILY PRN 10/17/18 [History] Furosemide [Lasix] 40 mg PO BIDDIURETIC #120 tablet 10/18/18 [Rx] predniSONE [PredniSONE] 10 mg PO DAILY #6 tablet 10/18/18 [Rx] Allergy/AdvReac Type Severity Reaction Status Date / Time cefazolin [From Ancef] Allergy Itching Verified 10/10/18 02:46 cephalexin [From Keflex] Allergy Hallucinati Verified 10/10/18 02:46 ng All Systems PM: A 10-system review of systems was performed and is negative for pertinent findings except as documented above in the HPI. - Constitutional Vitals: Temp Pulse Resp BP Pulse Ox 98.9 F 100 20 82/33 92 10/25/18 07:50 10/25/18 07:50 10/25/18 07:50 10/25/18 07:50 10/25/18 07:50 Exam: General appearance: Present: A&O X 3, no acute distress - Head Head exam: Present: normocephalic - Eye Eye exam: Present: normal appearance - ENT ENT exam: Present: mucous membranes moist - Respiratory Respiratory exam: Present: CTAB. Absent: accessory muscle use, rales, rhonchi, wheezes Patient did sound tight - Cardiovascular Cardiovascular exam: Present: RRR, +S1, +S2. Absent: diastolic murmur, gallop, rubs, systolic murmur - GI/Abdominal GI/Abdominal exam: Present: normal bowel sounds, soft, no peritoneal signs. Ab sent: distended, tenderness - Extremities Exam Extremities exam: Absent: pedal edema - Neurological Exam Neurological exam: Present: alert, oriented X3, no focal deficits. Absent: altered - Psychiatric Psychiatric exam: -normal mood Skin exam: -normal color Internal Med - H&P Results - Labs CBC & Chem 7: 10/25/18 04:11 10/25/18 04:11 Labs: Short CBC 10/25/18 Range/Units 04:11 WBC 15.0 H (4.3-11.1) K/mcL Hgb 10.3 L (11.5-15.4) g/dL Hct 36.4 (35.3-44.9) % Plt Count 264 (140-400) K/mcL BMP 10/25/18 04:11 Sodium 138 Potassium 3.6 Chloride 101 Carbon Dioxide 32 H BUN 24 H Creatinine 0.83 Glucose 130 H Calcium 8.7 Cardiac Enzymes 10/25/18 Range/Units 04:11 Troponin I < 0.03 (< 0.04) ng/mL Urine 10/25/18 Range/Units 04:10 Urine Color Yellow (Yellow) Urine Clarity Cloudy A (Clear) Urine pH 6.0 (5.0-8.0) pH Units Ur Specific [place] 1.005 L (1.010-1.025) Urine Protein Negative (Neg-Trace) mg/dL Urine Glucose (UA) Normal (Normal) mg/dL - Impressions ITS Impressions Chest X-Ray 10/25/18 03:29 IMPRESSION: Cardiomegaly and mild central pulmonary vascular congestion. D/ / Oscar Myers / Oscar Myers Interpreting Provider: Oscar Myers - Assessment and Plan (1) Acute exacerbation of chronic obstructive pulmonary disease (COPD) Current Visit: Yes Status: Acute Assessment and plan: Chest x-ray was negative and CT chest did not show any acute findings as well. Will continue scheduled dual nebs in addition to IV Solu-Medrol and IV azithromycin. Due to 3 admissions in the last month for COPD exacerbation we will consult pulmonology and appreciate recommendations. (2) Chronic diastolic CHF (congestive heart failure) Current Visit: No Status: Chronic Assessment and plan: She appears euvolemic on exam and no pulmonary edema on imaging. Echocardiogram on 10/17/18 showed LVEF of 65% with mild left ventricular diastolic dysfunction. Continue home medications (3) HTN (hypertension) Current Visit: No Status: Acute Assessment and plan: Continue home medications Qualifiers: Hypertension type: essential hypertension Qualified Code(s): I10 - Essential (primary) hypertension (4) Hypothyroidism Current Visit: No Status: Acute Assessment and plan: Continuing home medications Qualifiers: Hypothyroidism type: acquired Qualified Code(s): E03.9 - Hypothyroidism, unspecified (5) CAD (coronary artery disease) Current Visit: No Status: Chronic Assessment and plan: Continue home medications Qualifiers: Coronary Disease-Associated Artery/Lesion type: [place] artery [place] vs. transplanted heart: [place] heart Associated angina: with stable angina Qualified Code(s): I25.118 - Atherosclerotic heart disease of [place] coronary artery with other forms of angina pectoris (6) Diabetes mellitus type 2 in obese Current Visit: No Status: Chronic Assessment and plan: Continue home medications (7) DVT prophylaxis Current Visit: No Status: Acute Assessment and plan: Subcutaneous heparin - Time Spent With Patient Total time spent is greater than 50% in coordination of care (as documented) at patient's floor/unit and/or counseling patient:
[2018-10-25] MEDS ORDERED: Isovue-370 500 ML BOTTLE IVP ONE (08:06)
[2018-10-25] MEDS ORDERED: Naloxone 0.4 MG/ML INJ IVP PRN (08:07)
[2018-10-25] MEDS: Ipratropium/Albuterol Neb 3 ML IH SCH ×4 (11:47→23:52)
[2018-10-25] MEDS: Azithromycin 500 MG in D5% in Water 250 ML IVPB SCH (12:27)
[2018-10-25] MEDS: clonazePAM 0.5 MG TABLET PO PRN (17:22)
[2018-10-25] MEDS: *HR* Heparin 5,000 UNIT/ML VIAL SQ SCH ×2 (17:22→22:29)
[2018-10-25] MEDS: methylPREDNISolone 125 MG/2 ML VIAL IVP SCH ×2 (17:22→22:29)
--- NOTE | 2018-10-25 20:24 | Electrocardiograph Report ---
[place] [id number] Test Date: 2018-10-25 Pat Name: Claire Lynch Department: [id number] Room: 2S7 Gender: F Project Management: : 1955 Requested By: Corey Cox Order Number: [id number] Reading MD: Amada Rosenthal Measurements Intervals [place] Rate: 104 P: 72 TX: 165 QRS: 74 QRSD: 81 T: 35 QT: 366 QTc: 482 Interpretive Statements Sinus tachycardia Low voltage, extremity and precordial leads Probable anteroseptal infarct, old Electronically Signed On 10-25-2018 20:22:25 EST by Amada Rosenthal
[2018-10-25] MEDS ORDERED: Dextrose 4 GM Chewable Tablets PO PRN ×2 (21:46)
[2018-10-25] MEDS ORDERED: Dextrose Gel 15 GM/37.5 ML TUBE PO PRN ×2 (21:46)
[2018-10-25] MEDS ORDERED: D5% in Water 1,000 ML IVC PRN (21:46)
[2018-10-25] MEDS ORDERED: *HR* Dextrose 50 % in Water (Syg) 50 ML SYRINGE IVP PRN (21:46)
[2018-10-25] MEDS ORDERED: Insulin LISPRO 300 UNITS/3 ML VIAL SQ SCH (22:00)
[2018-10-26] MEDS: clonazePAM 0.5 MG TABLET PO PRN ×2 (01:12→13:23)
[2018-10-26] MEDS: Ipratropium/Albuterol Neb 3 ML IH SCH ×4 (04:08→15:10)
[2018-10-26 05:24] LABS: Basophils % 0.4 %; Eosinophils # 0.1 K/mcL (0.0-0.6); Eosinophils % 0.7 %; Hematocrit 37.2 % (35.3-44.9); Hemoglobin 10.8 g/dL (11.5-15.4); Immature Granulocytes % 1.8 % (0-4); Lymphocytes # 1.2 K/mcL (0.6-4.6); Lymphocytes % 12.5 %; Mean Corpuscular Hemoglobin 20.5 pg (28.0-33.3); Mean Corpuscular Volume 70.6 fL (83.0-100.0); Mean Platelet Volume 10.9 fL (9.4-12.4); Monocytes # 0.3 K/mcL (0.0-1.3); Monocytes % 3.2 %; Nucleated Red Blood Cells 0.2 /100 WBC (0); Platelet Count 276 K/mcL (140-400); Red Blood Count 5.27 M/mcL (3.82-4.97); Red Cell Distribution Width 21.2 % (11.5-14.5); Segmented Neutrophils % 81.4 %
[2018-10-26 05:42] LABS: BUN/Creatinine Ratio 29 (6-26); Blood Urea Nitrogen 15 mg/dL (8-23); Calcium 9.3 mg/dL (8.6-10.3); Carbon Dioxide 28 mEq/L (23-29); Chloride 106 mEq/L (98-107); Glucose 347 mg/dL (70-105); Osmolality,Calculated 295 (280-300); Sodium 135 mEq/L (136-145); eGFR For Non-African Americans > 60 (> 60)
[2018-10-26] MEDS: *HR* Heparin 5,000 UNIT/ML VIAL SQ SCH ×2 (06:03→13:25)
[2018-10-26] MEDS: Insulin LISPRO 300 UNITS/3 ML VIAL SQ SCH ×2 (08:25→12:18)
--- NOTE | 2018-10-26 09:39 | Internal Med Progress Note ---
Hospitalist Progress Note - Encounter Date of Encounter: 10/26/18 - Subjective Interval History: Patient with multiple admissions in the last month who presents with similar symptoms of persistent cough/shortness of breath also now complaining of "pain in her right lung." - Exam Vitals: Temp Pulse Resp BP Pulse Ox 97.9 F 114 22 136/79 96 10/26/18 07:35 10/26/18 07:35 10/26/18 07:35 10/26/18 07:35 10/26/18 07:35 - Assessment and Plan (1) Acute exacerbation of chronic obstructive pulmonary disease (COPD) Current Visit: Yes Status: Acute Assessment and Plan: Chest x-ray was negative and CT chest did not show any acute findings as well. Will continue scheduled dual nebs in addition to IV Solu-Medrol and IV azithromycin. Due to 3 admissions in the last month for COPD exacerbation and patient reporti ng of no improvement in symptoms, will consult pulmonology and appreciate recommendations. (2) Chronic diastolic CHF (congestive heart failure) Current Visit: No Status: Chronic Assessment and Plan: Patient appears euvolemic on exam and no pulmonary edema on imaging. Echocardiogram on 10/17/18 showed LVEF of 65% with mild left ventricular diastolic dysfunction. Continue patient's home dose of Lasix once med reconciliation has been completed (3) HTN (hypertension) Current Visit: No Status: Acute Assessment and Plan: Continue patient's home medication once med reconciliation has been completed (4) Hypothyroidism Current Visit: No Status: Acute Assessment and Plan: Continue patient's home medication once med reconciliation has been completed (5) CAD (coronary artery disease) Current Visit: No Status: Chronic Assessment and Plan: Continue patient's home medication once med reconciliation has been completed (6) Diabetes mellitus type 2 in obese Current Visit: No Status: Chronic Assessment and Plan: Coverage with sliding-scale insulin DVT Prophylaxis: Heparin subcutaneous - Time Spent with Patient Total time spent is greater than 50% in coordination of care (as documented) at patient's floor/unit and/or counseling patient: Internal Medicine: Result - Labs CBC & Chem 7: 10/26/18 04:54 10/26/18 04:54 Labs: Short CBC 10/26/18 Range/Units 04:54 WBC 9.8 (4.3-11.1) K/mcL Hgb 10.8 L (11.5-15.4) g/dL Hct 37.2 (35.3-44.9) % Plt Count 276 (140-400) K/mcL Neutrophils # 8.0 (1.6-8.9) K/mcL BMP 10/26/18 04:54 Sodium 135 L Potassium 4.0 Chloride 106 Carbon Dioxide 28 BUN 15 Creatinine 0.51 L Glucose 347 H Calcium 9.3 - Impressions Impressions Chest CT 10/25/18 10:30 IMPRESSION: 1. No acute cardiopulmonary process. 2. Mild centrilobular emphysema. 3. Minor multifocal scarring present in both lungs. This may be the sequela of previous infection/inflammation. 4. Atherosclerotic vascular calcifications noted. D/ / Evelio William MD / Evelio William MD Interpreting Provider: Evelio William MD Consult Discharge Plan - Plan Referrals: Isaac Morley MD [Primary Care Provider] - (3) HTN (hypertension) Qualifiers: Hypertension type: essential hypertension Qualified Code(s): I10 - Essential (primary) hypertension (4) Hypothyroidism Qualifiers: Hypothyroidism type: acquired Qualified Code(s): E03.9 - Hypothyroidism, unspecified (5) CAD (coronary artery disease) Qualifiers: Coronary Disease-Associated Artery/Lesion type: [place] artery [place] vs. transplanted heart: [place] heart Associated angina: with stable angina Qualified Code(s): I25.118 - Atherosclerotic heart disease of [place] coronary artery with other forms of angina pectoris
[2018-10-26] MEDS ORDERED: Budesonide/Formoterol 160/4.5 1 PUFF INH IH SCH (10:00)
[2018-10-26] MEDS: Azithromycin 500 MG in D5% in Water 250 ML IVPB SCH (11:02)
--- NOTE | 2018-10-26 11:15 | Pulmonology Consult Note ---
<Ese Atkinson - Last Filed: 10/26/18 16:42> Date of Encounter: 10/26/18 Time of Encounter: 08:15 Assessment and Plan (1) COPD (chronic obstructive pulmonary disease) Current Visit: Yes Status: Acute History of COPD does not appear to be in acute exacerbation, is not wheezing. Is on 2 L of oxygen at nighttime at home. At admission she was noted to be on 2 L of oxygen and was saturating 100% and lowered to 1 L and she is saturating to 96%. She does have chronic nonproductive cough. She does continue to smoke and is not compliant with her pulmonary outpatient follow-up. Continue bronchodilator Continue Symbicort Titrated prednisone to oral, continue to titrate as tolerated Needs outpatient pulmonary follow-up Qualifiers: COPD type: unspecified COPD Qualified Code(s): J44.9 - Chronic obstructive pulmonary disease, unspecified History of Present Illness Consult date: 10/25/18 Requesting physician: Tiburcio Cuello Reason for consult: dyspnea Chief complaint: dypnea History of present illness: Syed is a 63-year-old female past medical history of diastolic CHF, COPD, type 2 diabetes, GERD, hyperlipidemia, TIA, hypertension who presented a complaining of shortness of breath. She does have history of COPD does not follow with pul monology outpatient due to noncompliance. She is on 2 L of oxygen at home notes that she is supposed to use it at nighttime only but seldom uses it. She is a current smoker and has been smoking for quite some time. He does not frequent admissions for her shortness of breath and reports she has missed 3 of her pulmonology appointment because of the head was discharged. She is urged to continue her follow-up test after her discharge. In the ER she had a chest x- ray which did not show any acute findings she also had CT of the chest with contrast which did not show any findings of pulmonary embolism, does have some findings of right-sided groundglass opacity which could be due to COPD exacer bation. She denies chest pain, fever, chills, abdominal pain or lower extremity edema. Past Med Surg Social Fam HX - Past Medical History Medical history: arthritis, CHF, COPD, coronary artery disease, diabetes, GERD, hyperlipidemia, hypertension, osteoporosis, renal disease, thyroid disease, TIA, venous stasis Additional medical history: recent UTI Psychiatric history: anxiety, bipolar, depression, panic disorder - Past Surgical History Surgical History: angioplasty/stent, , cholecystectomy, hysterectomy Additional surgical history: 4 cardiac stents, tubal ligation - Social History Smoking Status: Current some day smoker Smokeless Tobacco Status: No Alcohol use: none Drug use: none - Family History Brother Adopted: No Family Member Ethnicity: Non- Living Status: Hx Family Cardiac Disorders: Yes Father Adopted: No Family Member Ethnicity: Non- Living Status: Hx Family Cardiac Disorders: Yes (HD, HLD, HTN, [place], Triple Bypass) Hx Family Neurologic Disorders: Yes (Dementia) Mother Adopted: No Family Member Ethnicity: Non- Living Status: Hx Family Cardiac Disorders: Yes Hx Family Respiratory Disorders: Yes Hx Family Cancer: No Hx Family GI Disorders: No Hx Family Endocrine Disorder: Yes (DM) Hx Family Neuromuscular Disorders: No Hx Family Neurologic Disorders: Yes (Strokes) Hx Family HEENT Disorders: No Hx Family Autoimmune Disorders: No Medications and Allergies metFORMIN [Glucophage] 1,000 mg PO BID 04/21/15 [History] Montelukast [Singulair] 10 mg PO QPM 02/04/16 [History] Oxygen 2 l NS DAILY 03/17/16 [History] Insulin Glargine [Lantus] 80 unit SQ BID 03/25/16 [History] Albuterol Sulfate [Albuterol Inhaler] 2 puff IH Q4HR PRN 05/01/16 [History] Raloxifene [Evista] 60 mg PO DAILY 05/01/16 [History] Fenofibrate Nanocrystallized [Tricor] 145 mg PO DAILY 06/15/16 [History] Aspirin 81 mg PO DAILY #60 tab.chew 12/06/16 [Rx] Cholecalciferol (D-3) [Vitamin D] 1,000 unit PO DAILY 04/27/17 [History] Gabapentin [Neurontin] 800 mg PO TID 06/11/17 [History] Omeprazole [PriLOSEC] 20 mg PO DAILY 06/11/17 [History] Buspirone HCl [Buspar] 20 mg PO TID 09/12/17 [History] Tramadol HCl [Ultram] 50 mg PO TID PRN 09/19/17 [History] Nitroglycerin [Nitrostat] 0.4 mg SL PRN PRN 11/14/17 [History] ARIPiprazole [Abilify] 10 mg PO DAILY 01/18/18 [History] Levothyroxine Sodium [Levoxyl] 100 mcg PO QAM 01/18/18 [History] Metoclopramide [Reglan] 10 mg PO TIDWM PRN 01/18/18 [History] Tiotropium [Spiriva] 1 puff IH DAILY 01/18/18 [History] Insulin LISPRO [Humalog Kwikpen U-100] 3 - 10 unit SQ TID 02/25/18 [History] Methocarbamol [Robaxin] 500 mg PO Q8HR #15 tablet 08/23/18 [Rx] Albuterol Neb [Proventil Neb] 2.5 mg IH Q4HR PRN 09/09/18 [History] Atorvastatin [Lipitor] 40 mg PO DAILY 09/09/18 [History] Dicyclomine [Bentyl] 10 mg PO BID PRN 09/09/18 [History] Metoprolol XL (24 HR) Succ [Toprol Xl] 50 mg PO DAILY 09/09/18 [History] Budesonide/Formoterol 160/4.5 [Symbicort 160/4.5] 2 puff IH BIDR 10/10/18 [History] Buprenorphine [Butrans] 1 patch TD MO 10/10/18 [History] Citalopram Hydrobromide [Celexa] 40 mg PO DAILY 10/10/18 [History] Cyclobenzaprine HCl 10 mg PO TID 10/10/18 [History] Etodolac [Lodine] 400 mg PO BID 10/10/18 [History] Ondansetron ODT [Zofran ODT] 4 mg SL BID PRN 10/10/18 [History] Potassium Chloride 20 meq PO BID PRN 10/10/18 [History] clonazePAM [Klonopin] 0.5 mg PO BID PRN 10/10/18 [History] metOLazone [Zaroxolyn] 5 mg PO DAILY PRN 10/17/18 [History] Furosemide [Lasix] 40 mg PO BIDDIURETIC #120 tablet 10/18/18 [Rx] Isosorbide MONOnitrate [Isosorbide Mononitrate ER] 120 mg PO DAILY 10/26/18 [History] predniSONE [PredniSONE] 40 mg PO BIDWM #10 tablet 10/26/18 [Rx] Allergy/AdvReac Type Severity Reaction Status Date / Time cefazolin [From Ancef] Allergy Itching Verified 10/10/18 02:46 cephalexin [From Keflex] Allergy Hallucinati Verified 10/10/18 02:46 ng All Systems: The remainder of the systems were reviewed and are negative - Constitutional Constitutional: no chills, no fever(s), no weakness - EENT Nose, mouth and throat: no dysphagia, no nasal congestion, no sinus pressure - Cardiovascular Cardiovascular: dyspnea, dyspnea on exertion, no chest pain, no chest pain at rest, no orthopnea, no paroxysmal nocturnal dyspnea - Respiratory Respiratory: cough, dyspnea, dyspnea on exertion, no chest congestion - Gastrointestinal Gastrointestinal: no diarrhea, no nausea, no vomiting - Integumentary Integumentary: no erythema, no rash - Neurological Neurological: no dizziness, no numbness, no syncope, no vertigo - Psychiatric Psychiatric: no anxiety, no depression Physical Examination Vital Signs: Vital Signs, Last 4 Hours Temp Pulse Resp BP Pulse Ox 10/26/18 08:30 96 10/26/18 07:35 97.9 F 114 22 136/79 96 General appearance: no acute distress, alert Eyes: nonicteric ENT: oropharynx moist Neck: supple Auscultation: bilateral: clear Cardiovascular: regular rate and rhythm Gastrointestinal: normoactive bowel sounds, soft, non-tender, non-distended Integumentary: normal Extremities: no edema Musculoskeletal: no deformities normal mental status, non-focal exam mood appropriate, affect normal Results - Laboratory Findings CBC and BMP: 10/26/18 04:54 10/26/18 04:54 Abnormal lab findings: Abnormal lab results RBC 5.27 M/mcL (3.82-4.97) H 10/26/18 04:54 Hgb 10.8 g/dL (11.5-15.4) L 10/26/18 04:54 MCV 70.6 fL (83.0-100.0) L 10/26/18 04:54 MCH 20.5 pg (28.0-33.3) L 10/26/18 04:54 MCHC 29.0 g/dL (31.6-35.5) L 10/26/18 04:54 RDW 21.2 % (11.5-14.5) H 10/26/18 04:54 Nucleated RBCs/100 WBC 0.2 /100 WBC (0) H 10/26/18 04:54 Sodium 135 mEq/L (136-145) L 10/26/18 04:54 Creatinine 0.51 mg/dL (0.60-1.20) L 10/26/18 04:54 BUN/Creatinine Ratio 29 (6-26) H 10/26/18 04:54 Glucose 347 mg/dL (70-105) H 10/26/18 04:54 POC Glucose 333 mg/dL (70-99) H 10/25/18 19:10 Urine Clarity Cloudy (Clear) A 10/25/18 04:10 Ur Specific [place] 1.005 (1.010-1.025) L 10/25/18 04:10 Urine Bilirubin Moderate (Negative) H 10/25/18 04:10 Ur Leukocyte Esterase Trace (Negative) H 10/25/18 04:10 Urine Microscopic WBC 3-5 per hpf (0-3) H 10/25/18 04:10 Ur Squamous Epith Cells Moderate per lpf (None-Few) H 10/25/18 04:10 Urine Bacteria Many per hpf (None-Few) H 10/25/18 04:10 - Clinical Findings Intake & Output: Intake & Output 10/25/18 10/26/18 10/26/18 23:59 07:59 15:59 Intake Total 250 / 250 360 / 360 Output Total 0 / 0 Balance 250 / 250 360 / 360 Weight 89.1 kg Consult Discharge Plan - Plan Instructions: How to Stop Smoking (DC), Diabetes Mellitus Type 2 in Adults (DC), Chronic Obstructive Pulmonary Disease (DC), Chronic Hypertension (DC) Referrals: Isaac Morley MD [Primary Care Provider] - 10/31/18 1:00 pm Pk Hutson MD [Partnered Physician] - 11/13/18 8:15 am Prescriptions: predniSONE [PredniSONE] 40 mg PO BIDWM #10 tablet <Pk Hutson - Last Filed: 10/26/18 17:05> Date of Encounter: 10/26/18 All Systems: The remainder of the systems were reviewed and are negative Results - Laboratory Findings CBC and BMP: 10/26/18 04:54 02/28/19 04:54 Abnormal lab findings: Abnormal lab results RBC 5.27 M/mcL (3.82-4.97) H 10/26/18 04:54 Hgb 10.8 g/dL (11.5-15.4) L 10/26/18 04:54 MCV 70.6 fL (83.0-100.0) L 10/26/18 04:54 MCH 20.5 pg (28.0-33.3) L 10/26/18 04:54 MCHC 29.0 g/dL (31.6-35.5) L 10/26/18 04:54 RDW 21.2 % (11.5-14.5) H 10/26/18 04:54 Nucleated RBCs/100 WBC 0.2 /100 WBC (0) H 10/26/18 04:54 Sodium 135 mEq/L (136-145) L 10/26/18 04:54 Creatinine 0.51 mg/dL (0.60-1.20) L 10/26/18 04:54 BUN/Creatinine Ratio 29 (6-26) H 10/26/18 04:54 Glucose 347 mg/dL (70-105) H 10/26/18 04:54 POC Glucose 333 mg/dL (70-99) H 10/25/18 19:10 Urine Clarity Cloudy (Clear) A 10/25/18 04:10 Ur Specific [place] 1.005 (1.010-1.025) L 10/25/18 04:10 Urine Bilirubin Moderate (Negative) H 10/25/18 04:10 Ur Leukocyte Esterase Trace (Negative) H 10/25/18 04:10 Urine Microscopic WBC 3-5 per hpf (0-3) H 10/25/18 04:10 Ur Squamous Epith Cells Moderate per lpf (None-Few) H 10/25/18 04:10 Urine Bacteria Many per hpf (None-Few) H 10/25/18 04:10 - Clinical Findings Intake & Output: Intake & Output 10/26/18 10/26/18 10/26/18 07:59 15:59 23:59 Intake Total 600 / 600 Output Total 0 / 0 Balance 600 / 600 Weight 89.1 kg - Attending Attestation I examined this patient and my medical decision-making was reviewed with the Resident Physician. I agree with the documented findings, disposition and treatment plan as described except to the extent set forth below. Patient seen and examined. Labs, radiology, chart personally reviewed. 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 I have discussed with the primary team and patient can be discharged home on taper st eroids and antibiotics with continuation of bronchodilators and most importantly to quit smoking. Pulmonary rehabilitation will be beneficial as outpatient. Have explained to the patient will be happy to see her for follow-up as outpatient. Thank you very much for consultation and also advised her not to smoke when she is using oxygen and she understand that.
[2018-10-26 11:44] VITALS: BP 152/80
[2018-10-26] MEDS ORDERED: Fluconazole 100 MG TABLET PO ONE (14:18)
--- NOTE | 2018-10-26 16:03 | Discharge Summary ---
- NOTES TO OUTPATIENT PROVIDER Notes to Outpatient Provider: Follow-up with primary care provider Orders not resulted at time of discharge: Pending orders 10/27/18 04:00 Basic Metabolic Panel AM 0400 Complete Blood Count [HEME] AM 0400 10/28/18 04:00 Basic Metabolic Panel AM 0400 Complete Blood Count [HEME] AM 0400 10/29/18 04:00 Basic Metabolic Panel AM 0400 Complete Blood Count [HEME] AM 0400 10/30/18 04:00 Basic Metabolic Panel AM 0400 Complete Blood Count [HEME] AM 0400 Date of Encounter: 10/26/18 Time of Encounter: 11:00 - Discharge Diagnosis (1) Acute exacerbation of chronic obstructive pulmonary disease (COPD) Priority: Primary Status: Acute (2) Chronic diastolic CHF (congestive heart failure) Priority: Primary Status: Chronic (3) HTN (hypertension) Priority: Secondary Status: Acute Qualifiers: Hypertension type: essential hypertension Qualified Code(s): I10 - Essential (primary) hypertension (4) Hypothyroidism Priority: Secondary Status: Acute Qualifiers: Hypothyroidism type: acquired Qualified Code(s): E03.9 - Hypothyroidism, unspecified (5) CAD (coronary artery disease) Priority: Secondary Status: Chronic Qualifiers: Coronary Disease-Associated Artery/Lesion type: [place] artery [place] vs. transplanted heart: [place] heart Associated angina: with stable angina Qualified Code(s): I25.118 - Atherosclerotic heart disease of [place] coronary artery with other forms of angina pectoris (6) Diabetes mellitus type 2 in obese Priority: Secondary Status: Chronic Hospital course: Patient is a 63-year-old female with past medical history significant for restrictive lung disease, diastolic CHF, COPD, DMII, Obesity, GERD, Bipolar I, TIA, HLD and HTN who presents with shortness of breath; this is patient's third admission for the same symptoms this month alone. Patient reported to the ER physician of having a "pain in her right lung" in addition to persistent cough that had not improved after last discharge. Patient has been admitted 3 times in the last month and was recently discharged on 10/18/18. In the ER, chest x-ray showed no acute findings and CT of the chest was also ordered once patient arrived to the floor which did not show any acute findings either. On exam patient without wheezing but did sound tight. Patient will be admitted for further management and workup for acute on chronic COPD exacerbation. During patients hospital stay her acute on chronic respiratory failure resolved on IV Solu-Medrol and scheduled nebs in addition to IV azithromycin. She will follow up with pulmonology as an outpatient. - Time Spent with Patient Total time spent providing and/or coordinating discharge services: Time spent: Less than 30 minutes - Discharge Medications Prescriptions: New predniSONE [PredniSONE] 40 mg PO BIDWM #10 tablet Continue metFORMIN [Glucophage] 1,000 mg PO BID Montelukast [Singulair] 10 mg PO QPM Oxygen 2 l NS DAILY Insulin Glargine [Lantus] 80 unit SQ BID Albuterol Sulfate [Albuterol Inhaler] 2 puff IH Q4HR PRN PRN Reason: Shortness Of Breath Raloxifene [Evista] 60 mg PO DAILY Fenofibrate Nanocrystallized [Tricor] 145 mg PO DAILY Aspirin 81 mg PO DAILY #60 tab.chew Cholecalciferol (D-3) [Vitamin D] 1,000 unit PO DAILY Omeprazole [PriLOSEC] 20 mg PO DAILY Gabapentin [Neurontin] 800 mg PO TID Buspirone HCl [Buspar] 20 mg PO TID Tramadol HCl [Ultram] 50 mg PO TID PRN PRN Reason: Severe Pain ARIPiprazole [Abilify] 10 mg PO DAILY Levothyroxine Sodium [Levoxyl] 100 mcg PO QAM Metoclopramide [Reglan] 10 mg PO TIDWM PRN PRN Reason: Nausea Tiotropium [Spiriva] 1 puff IH DAILY Insulin LISPRO [Humalog Kwikpen U-100] 3 - 10 unit SQ TID Methocarbamol [Robaxin] 500 mg PO Q8HR #15 tablet Dicyclomine [Bentyl] 10 mg PO BID PRN PRN Reason: Diarrhea Metoprolol XL (24 HR) Succ [Toprol Xl] 50 mg PO DAILY Atorvastatin [Lipitor] 40 mg PO DAILY Albuterol Neb [Proventil Neb] 2.5 mg IH Q4HR PRN PRN Reason: Shortness Of Breath Ondansetron ODT [Zofran ODT] 4 mg SL BID PRN PRN Reason: nausea Budesonide/Formoterol 160/4.5 [Symbicort 160/4.5] 2 puff IH BIDR Buprenorphine [Butrans] 1 patch TD MO Citalopram Hydrobromide [Celexa] 40 mg PO DAILY clonazePAM [Klonopin] 0.5 mg PO BID PRN PRN Reason: Anxiety Cyclobenzaprine HCl 10 mg PO TID Etodolac [Lodine] 400 mg PO BID Potassium Chloride 20 meq PO BID PRN PRN Reason: ONLY WITH DIEURETICS metOLazone [Zaroxolyn] 5 mg PO DAILY PRN PRN Reason: SWELLING Furosemide [Lasix] 40 mg PO BIDDIURETIC #120 tablet Isosorbide MONOnitrate [Isosorbide Mononitrate ER] 120 mg PO DAILY Nitroglycerin [Nitrostat] 0.4 mg SL PRN PRN PRN Reason: Chest Pain Home Medications: metFORMIN [Glucophage] 1,000 mg PO BID 04/21/15 [History] Montelukast [Singulair] 10 mg PO QPM 02/04/16 [History] Oxygen 2 l NS DAILY 03/17/16 [History] Insulin Glargine [Lantus] 80 unit SQ BID 03/25/16 [History] Albuterol Sulfate [Albuterol Inhaler] 2 puff IH Q4HR PRN 05/01/16 [History] Raloxifene [Evista] 60 mg PO DAILY 05/01/16 [History] Fenofibrate Nanocrystallized [Tricor] 145 mg PO DAILY 06/15/16 [History] Aspirin 81 mg PO DAILY #60 tab.chew 12/06/16 [Rx] Cholecalciferol (D-3) [Vitamin D] 1,000 unit PO DAILY 04/27/17 [History] Gabapentin [Neurontin] 800 mg PO TID 06/11/17 [History] Omeprazole [PriLOSEC] 20 mg PO DAILY 06/11/17 [History] Buspirone HCl [Buspar] 20 mg PO TID 09/12/17 [History] Tramadol HCl [Ultram] 50 mg PO TID PRN 09/19/17 [History] Nitroglycerin [Nitrostat] 0.4 mg SL PRN PRN 11/14/17 [History] ARIPiprazole [Abilify] 10 mg PO DAILY 01/18/18 [History] Levothyroxine Sodium [Levoxyl] 100 mcg PO QAM 01/18/18 [History] Metoclopramide [Reglan] 10 mg PO TIDWM PRN 01/18/18 [History] Tiotropium [Spiriva] 1 puff IH DAILY 01/18/18 [History] Insulin LISPRO [Humalog Kwikpen U-100] 3 - 10 unit SQ TID 02/25/18 [History] Methocarbamol [Robaxin] 500 mg PO Q8HR #15 tablet 08/23/18 [Rx] Albuterol Neb [Proventil Neb] 2.5 mg IH Q4HR PRN 09/09/18 [History] Atorvastatin [Lipitor] 40 mg PO DAILY 09/09/18 [History] Dicyclomine [Bentyl] 10 mg PO BID PRN 09/09/18 [History] Metoprolol XL (24 HR) Succ [Toprol Xl] 50 mg PO DAILY 09/09/18 [History] Budesonide/Formoterol 160/4.5 [Symbicort 160/4.5] 2 puff IH BIDR 10/10/18 [History] Buprenorphine [Butrans] 1 patch TD MO 10/10/18 [History] Citalopram Hydrobromide [Celexa] 40 mg PO DAILY 10/10/18 [History] Cyclobenzaprine HCl 10 mg PO TID 10/10/18 [History] Etodolac [Lodine] 400 mg PO BID 10/10/18 [History] Ondansetron ODT [Zofran ODT] 4 mg SL BID PRN 10/10/18 [History] Potassium Chloride 20 meq PO BID PRN 10/10/18 [History] clonazePAM [Klonopin] 0.5 mg PO BID PRN 10/10/18 [History] metOLazone [Zaroxolyn] 5 mg PO DAILY PRN 10/17/18 [History] Furosemide [Lasix] 40 mg PO BIDDIURETIC #120 tablet 10/18/18 [Rx] Isosorbide MONOnitrate [Isosorbide Mononitrate ER] 120 mg PO DAILY 10/26/18 [History] predniSONE [PredniSONE] 40 mg PO BIDWM #10 tablet 10/26/18 [Rx] Allergies/Adverse Reactions: Allergy/AdvReac Type Severity Reaction Status Date / Time cefazolin [From Ancef] Allergy Itching Verified 10/10/18 02:46 cephalexin [From Keflex] Allergy Hallucinati Verified 10/10/18 02:46 ng Date of admission: 10/25/18 08:07 Primary care physician: Isaac Morley MD Consults: 10/25/18 12:12 Consult to Pulmonology [CONS] Routine Consulting Provider: [facility] Reason for Consult: COPD Call Completed: No 10/25/18 16:12 Consult to Nurse Navigator [CONS] Routine Comment: copd - Constitutional Vitals: Temp Pulse Resp BP Pulse Ox 98.5 F 112 20 152/80 93 10/26/18 11:43 10/26/18 11:43 10/26/18 11:43 10/26/18 11:43 10/26/18 11:43 Exam: Gen.: Nonacute distress, alert and oriented 3 ENT: Mucosal membranes moist Respiratory: Lungs are clear to auscultation bilaterally without any wheezing rhonchi or rales Cardiovascular: Normal S1 and S2 regular rate rhythm no murmurs rubs or gallops Abdomen: Soft, nontender and nondistended with positive bowel sounds Extremities: No lower extremity edema Skin: Normal color - Patient Status Disposition: Home, Self-Care Condition: Fair - Discharge Instructions Instructions: How to Stop Smoking (DC), Diabetes Mellitus Type 2 in Adults (DC), Chronic Obstructive Pulmonary Disease (DC), Chronic Hypertension (DC) Follow Up With: Isaac Morley MD [Primary Care Provider] - 10/31/18 1:00 pm Pk Hutson MD [Partnered Physician] - 11/13/18 8:15 am
[2018-10-26] MEDS ORDERED: predniSONE 20 MG TABLET PO SCH (17:00)
== END 2018-10-26 17:23 | disposition home or self-care (01) | DRG 189 ==
LOC: 2SOUTHHOLD 02:56 → EMEROOARM 02:56 → SUATTDRO 06:56 → 2SOUTHHOLD 07:04
PROVIDERS: ADMIT Internal Medicine; ATTEND Hospitalist

== ENCOUNTER 2019-01-14 09:46 | Observation (INO) ==
--- NOTE | 2019-01-14 10:00 | Emergency Department Note ---
Disposition Clinical Impression: Altered mental status Qualifiers: Altered mental status type: unspecified Qualified Code(s): R41.82 - Altered mental status, unspecified Disposition: Admitted As Inpatient Condition: Good Referrals: Isaac Morley MD [Primary Care Provider] - Time of Disposition: 11:59 General Adult HPI - General Stated complaint: Disoriented Time Seen by Provider: 01/14/19 09:52 Source: patient, EMS Mode of arrival: EMS Limitations: no limitations Nursing Notes Reviewed: Yes Vital Signs Reviewed: Yes - History of Present Illness HPI Narrative: Alert and oriented nontoxic-appearing 63-year-old female with a history of COPD (dependent on 1 L nasal cannula when necessary) arrives from home by EMS for evaluation of feelings of disorientation, nonproductive cough, shortness of breath above baseline, as well as nontraumatic right arm and right leg pain. The patient states she was prompted to call EMS because shortly prior to arrival, she developed pain in the right arm and right leg. She also claims to have had some "stiffness of the right arm and leg". She states that this "stiffness" has resolved without intervention however she is still feeling some discomfort. She denies any falls or injury. She denies any head injury. She denies any visual disturbances, numbness or tingling/weakness of the extremities. She denies any chest pain. She denies any abdominal pain, nausea, or vomiting. She states that she was started on trazodone recently and is concerned that that might be contributing. She states that she felt disoriented upon wakening however does also state that she had taken her trazodone, BuSpar gabapentin, and Klonopin this morning shortly after awakening. Last known well unknown. Location: right, upper extremity, lower extremity Pain Severity: moderate Pain Scale: 4 Quality: aching Consistency: constant Improves with: nothing Worsens with: nothing Associated symptoms: Reports: confusion, cough, shortness of breath. Denies: chest pain, fever/chills, nausea/vomiting, weakness Treatments Prior to Arrival: none - Related Data Home Medications Medication Instructions Recorded Confirmed metFORMIN [Glucophage] 1,000 mg PO BID 04/21/15 10/26/18 Montelukast [Singulair] 10 mg PO QPM 02/04/16 10/26/18 Oxygen 2 l NS DAILY 03/17/16 10/26/18 Insulin Glargine [Lantus] 80 unit SQ BID 03/25/16 10/26/18 Albuterol Sulfate [Albuterol 2 puff IH Q4HR PRN 05/01/16 10/26/18 Inhaler] Raloxifene [Evista] 60 mg PO DAILY 05/01/16 10/26/18 Fenofibrate Nanocrystallized 145 mg PO DAILY 06/15/16 10/26/18 [Tricor] Cholecalciferol (D-3) [Vitamin D] 1,000 unit PO DAILY 04/27/17 10/26/18 Gabapentin [Neurontin] 800 mg PO TID 06/11/17 10/26/18 Omeprazole [PriLOSEC] 20 mg PO DAILY 06/11/17 10/26/18 Buspirone HCl [Buspar] 20 mg PO TID 09/12/17 10/26/18 Tramadol HCl [Ultram] 50 mg PO TID PRN 09/19/17 10/26/18 Nitroglycerin [Nitrostat] 0.4 mg SL PRN PRN 11/14/17 10/26/18 ARIPiprazole [Abilify] 10 mg PO DAILY 01/18/18 10/26/18 Levothyroxine Sodium [Levoxyl] 100 mcg PO QAM 01/18/18 10/26/18 Metoclopramide [Reglan] 10 mg PO TIDWM PRN 01/18/18 10/26/18 Tiotropium [Spiriva] 1 puff IH DAILY 01/18/18 10/26/18 Insulin LISPRO [Humalog Kwikpen 3 - 10 unit SQ TID 02/25/18 10/26/18 U-100] Albuterol Neb [Proventil Neb] 2.5 mg IH Q4HR PRN 09/09/18 10/26/18 Atorvastatin [Lipitor] 40 mg PO DAILY 09/09/18 10/26/18 Dicyclomine [Bentyl] 10 mg PO BID PRN 09/09/18 10/26/18 Metoprolol XL (24 HR) Succ [Toprol 50 mg PO DAILY 09/09/18 10/26/18 Xl] Budesonide/Formoterol 160/4.5 2 puff IH BIDR 10/10/18 10/26/18 [Symbicort 160/4.5] Buprenorphine [Butrans] 1 patch TD MO 10/10/18 10/26/18 Citalopram Hydrobromide [Celexa] 40 mg PO DAILY 10/10/18 10/26/18 Cyclobenzaprine HCl 10 mg PO TID 10/10/18 10/26/18 Etodolac [Lodine] 400 mg PO BID 10/10/18 10/26/18 Ondansetron ODT [Zofran ODT] 4 mg SL BID PRN 10/10/18 10/26/18 Potassium Chloride 20 meq PO BID PRN 10/10/18 10/26/18 clonazePAM [Klonopin] 0.5 mg PO BID PRN 10/10/18 10/26/18 metOLazone [Zaroxolyn] 5 mg PO DAILY PRN 10/17/18 10/26/18 Isosorbide MONOnitrate [Isosorbide 120 mg PO DAILY 10/26/18 10/26/18 Mononitrate ER] Previous Rx's Medication Instructions Recorded Aspirin 81 mg PO DAILY #60 tab.chew 12/06/16 Methocarbamol [Robaxin] 500 mg PO Q8HR #15 tablet 08/23/18 Furosemide [Lasix] 40 mg PO BIDDIURETIC #120 tablet 10/18/18 predniSONE [PredniSONE] 40 mg PO BIDWM #10 tablet 10/26/18 Azithromycin [Azithromycin 6-Tab 250 mg PO PER PKG DI #6 tab 11/19/18 Pack] Clopidogrel Bisulfate [Plavix] 75 mg PO ONCE #21 tablet 11/19/18 predniSONE [PredniSONE] 20 mg PO BIDWM #10 tablet 11/19/18 predniSONE [PredniSONE] 40 mg PO DAILY #10 tablet 12/11/18 Allergies Allergy/AdvReac Type Severity Reaction Status Date / Time cefazolin [From Ancef] Allergy Itching Verified 12/11/18 03:35 cephalexin [From Keflex] Allergy Hallucinati Verified 12/11/18 03:35 ng All systems ED: reviewed and negative except as stated. Review of Systems: As Per HPI Constitutional: Denies: fever, chills, weakness, weight change Eyes: Denies: eye pain, eye discharge, vision change ENT ED: Denies: ear pain, throat pain, dental pain, hearing loss, epistaxis, congestion, dysphagia Cardiovascular: Denies: chest pain, palpitations, dyspnea on exertion, edema, syncope Respiratory: Reports: as per HPI, cough, dyspnea. Denies: wheezes, hemoptysis, stridor, sputum production Gastrointestinal: Denies: abdominal pain, nausea, vomiting, diarrhea, constipation, hematemesis, melena, hematochezia Genitourinary: Denies: dysuria, frequency, hematuria, discharge Musculoskeletal: Reports: as per HPI, myalgia (Right arm/right leg pain). Denies: back pain, neck pain, arthralgia Integumentary: Denies: rash, abrasion, lesions Neurological: Reports: as per HPI, confusion. Denies: headache, weakness, numbness, paresthesias, abnormal gait, vertigo Psychiatric: Denies: anxiety, depression, suicidal thoughts, homicidal thoughts, auditory hallucinations, visual hallucinations Endocrine: Denies: fatigue Hematological/Lymphatic: Denies: easy bleeding, easy bruising Allergic/Immunologic: Denies: facial swelling, urticaria Past Medical History - Past Medical History Attestation: Yes The following information was validated with the patient. Source: patient, nursing notes reviewed Medical history: Reports: arthritis, CHF, COPD, coronary artery disease, diabetes, GERD, hyperlipidemia, hypertension, osteoporosis, renal disease, thyroid disease, TIA, venous stasis Surgical history: Reports: angioplasty/stent, , cholecystectomy, hysterectomy Psychiatric history: Reports: anxiety, bipolar, depression, panic disorder [employer] history: Reports: bilateral tubal ligation - Social History Smoking Status: Current some day smoker Smokeless Tobacco Status: No Alcohol use: Reports: none Drug use: Reports: none Physical Exam - General Limitations: no limitations General appearance: alert, in no apparent distress - Head Head exam: atraumatic, normocephalic, normal inspection - Eye Eye exam: Present: normal appearance, PERRL, EOMI. Absent: conjunctival inject ion - Expanded Eye Exam Pupils: Bilateral: regular, round, reactive, size (4) - ENT ENT exam: mucous membranes moist - Neck Neck exam: Present: normal inspection, full ROM - Chest Chest inspection: Present: normal inspection, symmetric chest wall rise. Absent: tenderness - Respiratory Respiratory exam: Present: normal lung sounds bilaterally. Absent: respiratory distress, wheezes, stridor, accessory muscle use, prolonged expiratory phase - Cardiovascular Cardiovascular exam: Present: regular rate, normal rhythm, normal heart sounds - Abdominal Exam Abdominal exam: Present: soft, Non-Tender, normal bowel sounds. Absent: distention, guarding, rebound, rigidity - Extremities Exam Extremities exam: Present: normal inspection, full ROM - Neurological Exam Neurological exam: Present: alert, oriented X3, CN II-XII intact - Expanded Neurological Exam Patient oriented to: Present: person, place, time Speech: Present: fluid speech Cranial nerves: EOM function (II, III, IV, ): Normal, facial sensation (V): Normal, facial palsy (VII): Normal, spinal accessory function (XI): Normal, tongue deviation (XII): Normal Cerebellar function: finger to nose: Normal, heel to boo: Normal Motor strength - LUE: 5/5 Motor strength - RUE: 5/5 Motor strength - LLE: 5/5 Motor strength - RLE: 5/5 Sensory exam upper extremity: light touch: Normal Sensory exam lower extremity: light touch: Normal Coma Scale Eye Opening: Spontaneous Coma Scale Motor Response: Obeys Commands Coma Scale Verbal Response: Oriented Coma Scale Total: 15 - Psychiatric Psychiatric exam: Present: normal affect, normal mood - Skin Skin exam: Present: warm, dry, intact, normal color. Absent: rash Course Course Narrative: 1230: I spoke with Dr. Nieves, admitting hospitalist who has accepted the patient for admission to the hospitalist services. - Reevaluation(s) Reevaluation #1: On reevaluation with the patient, the patient remains awake, alert, and oriented 4. She states she is feeling better although "still a little spaced out". I have discussed this patient's case with Dr. Wahl, ED attending. He has had a [id number] evaluation with the patient and agrees with admission to the hospital service for observation for altered mental status. His altered mental status is presumed to be secondary to overmedication. Again, the patient admitted taking trazodone, Klonopin, use bar in conjunction this morning. Time: 12:38 Vital Signs Temperature 98.6 F 01/14/19 10:01 Pulse Rate 86 01/14/19 10:01 Respiratory Rate 18 01/14/19 10:01 Blood Pressure 158/63 01/14/19 10:01 O2 Sat by Pulse Oximetry 97 05/19/19 10:01 Temperature 98.6 F 01/14/19 10:01 Pulse Rate 89 01/14/19 12:26 Respiratory Rate 16 01/14/19 12:26 Blood Pressure 166/83 01/14/19 12:26 O2 Sat by Pulse Oximetry 97 01/14/19 12:26 Oxygen Delivery Oxygen Delivery Nasal Cannula Medical Decision Making - Medical Records Medical records reviewed: Yes I reviewed the patient's medical records. - Lab Data Lab results reviewed: Yes I reviewed the patient's lab results. Lab results narrative: Lab Results 01/14/19 01/14/19 01/14/19 Range/Units 10:41 10:41 10:41 WBC 11.6 H (4.3-11.1) K/mcL RBC 5.00 H (3.82-4.97) M/mcL Hgb 10.7 L (11.5-15.4) g/dL Hct 37.2 (35.3-44.9) % MCV 74.4 L (83.0-100.0) fL MCH 21.4 L (28.0-33.3) pg MCHC 28.8 L (31.6-35.5) g/dL RDW 20.7 H (11.5-14.5) % Plt Count 297 (140-400) K/mcL MPV 10.8 (9.4-12.4) fL Immature Gran % 2.2 (0-4) % Seg Neutrophils % 70.0 % Lymphocytes % 17.4 % Monocytes % 6.6 % Eosinophils % 2.6 % Basophils % 1.2 % Neutrophils # 8.1 (1.6-8.9) K/mcL Lymphocytes # 2.0 (0.6-4.6) K/mcL Monocytes # 0.8 (0.0-1.3) K/mcL Eosinophils # 0.3 (0.0-0.6) K/mcL Basophils # 0.1 (0.0-0.2) K/mcL Nucleated RBCs/100 WBC 0.2 H (0) /100 WBC Platelet Estimate Normal (Normal) Hypochromasia Present A (Not Present) Anisocytosis 1+ A (Not Present) PT 10.2 (9.4-12.1) Seconds INR 0.9 APTT 28.3 (26.0-36.0) Seconds VBG pH (7.32-7.42) pH Units VBG pCO2 (41-51) mmHg VBG pO2 (25-50) mmHg VBG HCO3 (21-27) mEq/L Sodium 136 (136-145) mEq/L Potassium 4.5 (3.5-5.1) mEq/L Chloride 102 (98-107) mEq/L Carbon Dioxide 25 (23-29) mEq/L BUN 14 (8-23) mg/dL Creatinine 0.56 L (0.60-1.20) mg/dL Est GFR ( Amer) > 60 (> 60) Est GFR (Non-Af Amer) > 60 (> 60) BUN/Creatinine Ratio 25 (6-26) Glucose 225 H (70-105) mg/dL Calculated Osmolality 290 (280-300) Calcium 9.3 (8.6-10.3) mg/dL Total Bilirubin 0.3 (0.3-1.0) mg/dL Direct Bilirubin 0.1 (0.0-0.2) mg/dL Indirect Bilirubin 0.2 (0.0-1.2) mg/dL AST 10 L (13-39) Units/L ALT 9 (7-52) Units/L Alkaline Phosphatase 97 (34-104) Units/L Ammonia (16-53) mcmol/L Creatine Kinase 73 (30-223) Units/L Troponin I < 0.03 (< 0.04) ng/mL Serum Total Protein 6.4 (6.4-8.9) g/dL Albumin 3.6 (3.5-5.7) g/dL Globulin 2.8 (2.4-3.5) g/dL Albumin/Globulin Ratio 1.3 (1.1-2.2) Ethyl Alcohol < 10 (Less than 10) mg/dL 01/14/19 01/14/19 Range/Units 10:41 10:56 WBC (4.3-11.1) K/mcL RBC (3.82-4.97) M/mcL Hgb (11.5-15.4) g/dL Hct (35.3-44.9) % MCV (83.0-100.0) fL MCH (28.0-33.3) pg MCHC (31.6-35.5) g/dL RDW (11.5-14.5) % Plt Count (140-400) K/mcL MPV (9.4-12.4) fL Immature Gran % (0-4) % Seg Neutrophils % % Lymphocytes % % Monocytes % % Eosinophils % % Basophils % % Neutrophils # (1.6-8.9) K/mcL Lymphocytes # (0.6-4.6) K/mcL Monocytes # (0.0-1.3) K/mcL Eosinophils # (0.0-0.6) K/mcL Basophils # (0.0-0.2) K/mcL Nucleated RBCs/100 WBC (0) /100 WBC Platelet Estimate (Normal) Hypochromasia (Not Present) Anisocytosis (Not Present) PT (9.4-12.1) Seconds INR APTT (26.0-36.0) Seconds VBG pH 7.39 (7.32-7.42) pH Units VBG pCO2 42 (41-51) mmHg VBG pO2 115 H (25-50) mmHg VBG HCO3 25 (21-27) mEq/L Sodium (136-145) mEq/L Potassium (3.5-5.1) mEq/L Chloride (98-107) mEq/L Carbon Dioxide (23-29) mEq/L BUN (8-23) mg/dL Creatinine (0.60-1.20) mg/dL Est GFR ( Amer) (> 60) Est GFR (Non-Af Amer) (> 60) BUN/Creatinine Ratio (6-26) Glucose (70-105) mg/dL Calculated Osmolality (280-300) Calcium (8.6-10.3) mg/dL Total Bilirubin (0.3-1.0) mg/dL Direct Bilirubin (0.0-0.2) mg/dL Indirect Bilirubin (0.0-1.2) mg/dL AST (13-39) Units/L ALT (7-52) Units/L Alkaline Phosphatase (34-104) Units/L Ammonia 39 (16-53) mcmol/L Creatine Kinase (30-223) Units/L Troponin I (< 0.04) ng/mL Serum Total Protein (6.4-8.9) g/dL Albumin (3.5-5.7) g/dL Globulin (2.4-3.5) g/dL Albumin/Globulin Ratio (1.1-2.2) Ethyl Alcohol (Less than 10) mg/dL Result diagrams: 01/14/19 10:41 01/14/19 10:41 Lab Results 01/14/19 01/14/19 01/14/19 Range/Units 10:41 10:41 10:41 WBC 11.6 H (4.3-11.1) K/mcL RBC 5.00 H (3.82-4.97) M/mcL Hgb 10.7 L (11.5-15.4) g/dL Hct 37.2 (35.3-44.9) % MCV 74.4 L (83.0-100.0) fL MCH 21.4 L (28.0-33.3) pg MCHC 28.8 L (31.6-35.5) g/dL RDW 20.7 H (11.5-14.5) % Plt Count 297 (140-400) K/mcL MPV 10.8 (9.4-12.4) fL Immature Gran % 2.2 (0-4) % Seg Neutrophils % 70.0 % Lymphocytes % 17.4 % Monocytes % 6.6 % Eosinophils % 2.6 % Basophils % 1.2 % Neutrophils # 8.1 (1.6-8.9) K/mcL Lymphocytes # 2.0 (0.6-4.6) K/mcL Monocytes # 0.8 (0.0-1.3) K/mcL Eosinophils # 0.3 (0.0-0.6) K/mcL Basophils # 0.1 (0.0-0.2) K/mcL Nucleated RBCs/100 WBC 0.2 H (0) /100 WBC Platelet Estimate Normal (Normal) Hypochromasia Present A (Not Present) Anisocytosis 1+ A (Not Present) PT 10.2 (9.4-12.1) Seconds INR 0.9 APTT 28.3 (26.0-36.0) Seconds VBG pH (7.32-7.42) pH Units VBG pCO2 (41-51) mmHg VBG pO2 (25-50) mmHg VBG HCO3 (21-27) mEq/L Sodium 136 (136-145) mEq/L Potassium 4.5 (3.5-5.1) mEq/L Chloride 102 (98-107) mEq/L Carbon Dioxide 25 (23-29) mEq/L BUN 14 (8-23) mg/dL Creatinine 0.56 L (0.60-1.20) mg/dL Est GFR ( Amer) > 60 (> 60) Est GFR (Non-Af Amer) > 60 (> 60) BUN/Creatinine Ratio 25 (6-26) Glucose 225 H (70-105) mg/dL Calculated Osmolality 290 (280-300) Calcium 9.3 (8.6-10.3) mg/dL Total Bilirubin 0.3 (0.3-1.0) mg/dL Direct Bilirubin 0.1 (0.0-0.2) mg/dL Indirect Bilirubin 0.2 (0.0-1.2) mg/dL AST 10 L (13-39) Units/L ALT 9 (7-52) Units/L Alkaline Phosphatase 97 (34-104) Units/L Ammonia (16-53) mcmol/L Creatine Kinase 73 (30-223) Units/L Troponin I < 0.03 (< 0.04) ng/mL Serum Total Protein 6.4 (6.4-8.9) g/dL Albumin 3.6 (3.5-5.7) g/dL Globulin 2.8 (2.4-3.5) g/dL Albumin/Globulin Ratio 1.3 (1.1-2.2) Ethyl Alcohol < 10 (Less than 10) mg/dL 01/14/19 01/14/19 Range/Units 10:41 10:56 WBC (4.3-11.1) K/mcL RBC (3.82-4.97) M/mcL Hgb (11.5-15.4) g/dL Hct (35.3-44.9) % MCV (83.0-100.0) fL MCH (28.0-33.3) pg MCHC (31.6-35.5) g/dL RDW (11.5-14.5) % Plt Count (140-400) K/mcL MPV (9.4-12.4) fL Immature Gran % (0-4) % Seg Neutrophils % % Lymphocytes % % Monocytes % % Eosinophils % % Basophils % % Neutrophils # (1.6-8.9) K/mcL Lymphocytes # (0.6-4.6) K/mcL Monocytes # (0.0-1.3) K/mcL Eosinophils # (0.0-0.6) K/mcL Basophils # (0.0-0.2) K/mcL Nucleated RBCs/100 WBC (0) /100 WBC Platelet Estimate (Normal) Hypochromasia (Not Present) Anisocytosis (Not Present) PT (9.4-12.1) Seconds INR APTT (26.0-36.0) Seconds VBG pH 7.39 (7.32-7.42) pH Units VBG pCO2 42 (41-51) mmHg VBG pO2 115 H (25-50) mmHg VBG HCO3 25 (21-27) mEq/L Sodium (136-145) mEq/L Potassium (3.5-5.1) mEq/L Chloride (98-107) mEq/L Carbon Dioxide (23-29) mEq/L BUN (8-23) mg/dL Creatinine (0.60-1.20) mg/dL Est GFR ( Amer) (> 60) Est GFR (Non-Af Amer) (> 60) BUN/Creatinine Ratio (6-26) Glucose (70-105) mg/dL Calculated Osmolality (280-300) Calcium (8.6-10.3) mg/dL Total Bilirubin (0.3-1.0) mg/dL Direct Bilirubin (0.0-0.2) mg/dL Indirect Bilirubin (0.0-1.2) mg/dL AST (13-39) Units/L ALT (7-52) Units/L Alkaline Phosphatase (34-104) Units/L Ammonia 39 (16-53) mcmol/L Creatine Kinase (30-223) Units/L Troponin I (< 0.04) ng/mL Serum Total Protein (6.4-8.9) g/dL Albumin (3.5-5.7) g/dL Globulin (2.4-3.5) g/dL Albumin/Globulin Ratio (1.1-2.2) Ethyl Alcohol (Less than 10) mg/dL - Radiology Data Radiology results reviewed: Yes I reviewed the patient's radiology results. Chest X-Ray 01/14/19 09:56 IMPRESSION: Bilateral reticular opacity suggesting mild interstitial edema, less likely atypical infection. D/ / Donell Denton MD / Donell Denton MD Interpreting Provider: Donell Denton MD Head CT 01/14/19 09:56 IMPRESSION: 1. No acute gross intracranial abnormality. 2. Acute right maxillary sinusitis. D/ / Everett Miranda MD / Everett Miranda MD Interpreting Provider: Everett Miranda MD - EKG Data EKG #1 EKG attestation: Yes I reviewed and interpreted this EKG. EKG results narrative: EKG shows sinus rhythm at a rate of 88 bpm. WV interval 153, QRS duration 98, QT/QTc interval 32/463. No ectopy noted. No ST elevation or significant depressions. No significant change in morphology when compared to an EKG dated from 12/11/18. Attestation Statement - Attestation Attestation: I, Bobby Wahl DO have provided [id number] time during the care of this patient. Detailed review the presentation, symptoms, medical history were discussed and reviewed with the advanced practice provider Son Norman PA-C/SONIA. Medical intervention labs and imaging studies were reviewed in detail. See full documentation of physical exam and course of care in the advanced practice provider's note. I agree with the determined course of care, medical intervention and disposition put forth by the advanced practice provider. See below documentation for changes or alterations in documentation. NIH Stroke Scale - Level of Consciousness LOC: Alert - LOC Questions LOC Questions: Answers both correctly - LOC Commands LOC Commands: Performs both correctly - Best Gaze Best Gaze: Normal - Visual Visual: No visual loss - Facial Palsy Facial Palsy: Normal - Motor Arms Motor Arm-Left: No drift for 10 seconds Motor Arm-Right: No drift for 10 seconds - Motor Legs Motor Leg-Left: No drift for 5 seconds Motor Leg-Right: No drift for 5 seconds - Limb Ataxia Limb Ataxia: Absent of affected limb too weak to perform exam - Sensory Sensory: Normal - Best Language Best Language: No aphasia - Dysarthria Dysarthria: Normal - Extinction and Inattention Extinction and Inattention: Normal - NIHSS Total Score NIHSS Total Score: 0
[2019-01-14 10:55] LABS: Basophils % 1.2 %; Mean Corpuscular Volume 74.4 fL (83.0-100.0)
[2019-01-14 10:56] LABS: Basophils # 0.1 K/mcL (0.0-0.2); Eosinophils # 0.3 K/mcL (0.0-0.6); Eosinophils % 2.6 %; Hematocrit 37.2 % (35.3-44.9); Hemoglobin 10.7 g/dL (11.5-15.4); Immature Granulocytes % 2.2 % (0-4); Lymphocytes % 17.4 %; Mean Corpuscular HGB Conc 28.8 g/dL (31.6-35.5); Mean Corpuscular Hemoglobin 21.4 pg (28.0-33.3); Mean Platelet Volume 10.8 fL (9.4-12.4); Monocytes # 0.8 K/mcL (0.0-1.3); Monocytes % 6.6 %; Neutrophils # 8.1 K/mcL (1.6-8.9); Nucleated Red Blood Cells 0.2 /100 WBC (0); Platelet Count 297 K/mcL (140-400); Red Cell Distribution Width 20.7 % (11.5-14.5)
[2019-01-14 10:58] LABS: Anisocytosis 1+ (Not Present); Hypochromasia Present (Not Present); Platelet Estimate Normal (Normal)
[2019-01-14 10:59] LABS: VBG HCO3 25 mEq/L (21-27); VBG PCO2 42 mmHg (41-51); VBG PH 7.39 pH Units (7.32-7.42); VBG PO2 115 mmHg (25-50)
[2019-01-14 11:10] LABS: INR 0.9; Prothrombin Time 10.2 Seconds (9.4-12.1)
[2019-01-14 11:13] LABS: Activated Partial Thrombo Time 28.3 Seconds (26.0-36.0)
[2019-01-14 11:15] LABS: Alanine Aminotransferase 9 Units/L (7-52); Albumin 3.6 g/dL (3.5-5.7); Albumin/Globulin Ratio 1.3 (1.1-2.2); Alkaline Phosphatase 97 Units/L (34-104); Aspartate Amino Transferase 10 Units/L (13-39); BUN/Creatinine Ratio 25 (6-26); Bilirubin,Direct 0.1 mg/dL (0.0-0.2); Bilirubin,Indirect 0.2 mg/dL (0.0-1.2); Bilirubin,Total 0.3 mg/dL (0.3-1.0); Blood Urea Nitrogen 14 mg/dL (8-23); Calcium 9.3 mg/dL (8.6-10.3); Carbon Dioxide 25 mEq/L (23-29); Chloride 102 mEq/L (98-107); Creatine Kinase 73 Units/L (30-223); Ethanol < 10 mg/dL (Less than 10); Globulin 2.8 g/dL (2.4-3.5); Glucose 225 mg/dL (70-105); Osmolality,Calculated 290 (280-300); Potassium 4.5 mEq/L (3.5-5.1); Sodium 136 mEq/L (136-145); Total Protein 6.4 g/dL (6.4-8.9); eGFR For Non-African Americans > 60 (> 60)
[2019-01-14 11:32] LABS: Troponin I < 0.03 ng/mL (< 0.04)
--- NOTE | 2019-01-14 12:03 | Emergency Department Note ---
Disposition Clinical Impression: Altered mental status Qualifiers: Altered mental status type: unspecified Qualified Code(s): R41.82 - Altered mental status, unspecified Disposition: Admitted As Inpatient Condition: Fair Referrals: Isaac Morley MD [Primary Care Provider] - Time of Disposition: 12:53 General Adult HPI - General Chief complaint: ED Altered Mental Status Stated complaint: Disoriented Time Seen by Provider: 01/14/19 09:52 Source: patient, EMS Mode of arrival: EMS Limitations: no limitations - History of Present Illness Location: right, upper extremity, lower extremity Pain Scale: 4 Quality: aching Improves with: nothing Worsens with: nothing Associated symptoms: Reports: confusion, cough, shortness of breath. Denies: chest pain, fever/chills, nausea/vomiting, weakness Treatments Prior to Arrival: none - Related Data Home Medications Medication Instructions Recorded Confirmed metFORMIN [Glucophage] 1,000 mg PO BID 04/21/15 10/26/18 Montelukast [Singulair] 10 mg PO QPM 02/04/16 10/26/18 Oxygen 2 l NS DAILY 03/17/16 10/26/18 Insulin Glargine [Lantus] 80 unit SQ BID 03/25/16 10/26/18 Albuterol Sulfate [Albuterol 2 puff IH Q4HR PRN 05/01/16 10/26/18 Inhaler] Raloxifene [Evista] 60 mg PO DAILY 05/01/16 10/26/18 Fenofibrate Nanocrystallized 145 mg PO DAILY 06/15/16 10/26/18 [Tricor] Cholecalciferol (D-3) [Vitamin D] 1,000 unit PO DAILY 04/27/17 10/26/18 Gabapentin [Neurontin] 800 mg PO TID 06/11/17 10/26/18 Omeprazole [PriLOSEC] 20 mg PO DAILY 06/11/17 10/26/18 Buspirone HCl [Buspar] 20 mg PO TID 09/12/17 10/26/18 Tramadol HCl [Ultram] 50 mg PO TID PRN 09/19/17 10/26/18 Nitroglycerin [Nitrostat] 0.4 mg SL PRN PRN 11/14/17 10/26/18 ARIPiprazole [Abilify] 10 mg PO DAILY 01/18/18 10/26/18 Levothyroxine Sodium [Levoxyl] 100 mcg PO QAM 01/18/18 10/26/18 Metoclopramide [Reglan] 10 mg PO TIDWM PRN 01/18/18 10/26/18 Tiotropium [Spiriva] 1 puff IH DAILY 01/18/18 10/26/18 Insulin LISPRO [Humalog Kwikpen 3 - 10 unit SQ TID 02/25/18 10/26/18 U-100] Albuterol Neb [Proventil Neb] 2.5 mg IH Q4HR PRN 09/09/18 10/26/18 Atorvastatin [Lipitor] 40 mg PO DAILY 09/09/18 10/26/18 Dicyclomine [Bentyl] 10 mg PO BID PRN 09/09/18 10/26/18 Metoprolol XL (24 HR) Succ [Toprol 50 mg PO DAILY 09/09/18 10/26/18 Xl] Budesonide/Formoterol 160/4.5 2 puff IH BIDR 10/10/18 10/26/18 [Symbicort 160/4.5] Buprenorphine [Butrans] 1 patch TD MO 10/10/18 10/26/18 Citalopram Hydrobromide [Celexa] 40 mg PO DAILY 10/10/18 10/26/18 Cyclobenzaprine HCl 10 mg PO TID 10/10/18 10/26/18 Etodolac [Lodine] 400 mg PO BID 10/10/18 10/26/18 Ondansetron ODT [Zofran ODT] 4 mg SL BID PRN 10/10/18 10/26/18 Potassium Chloride 20 meq PO BID PRN 10/10/18 10/26/18 clonazePAM [Klonopin] 0.5 mg PO BID PRN 10/10/18 10/26/18 metOLazone [Zaroxolyn] 5 mg PO DAILY PRN 10/17/18 10/26/18 Isosorbide MONOnitrate [Isosorbide 120 mg PO DAILY 10/26/18 10/26/18 Mononitrate ER] Previous Rx's Medication Instructions Recorded Aspirin 81 mg PO DAILY #60 tab.chew 12/06/16 Methocarbamol [Robaxin] 500 mg PO Q8HR #15 tablet 08/23/18 Furosemide [Lasix] 40 mg PO BIDDIURETIC #120 tablet 10/18/18 predniSONE [PredniSONE] 40 mg PO BIDWM #10 tablet 10/26/18 Azithromycin [Azithromycin 6-Tab 250 mg PO PER PKG DI #6 tab 11/19/18 Pack] Clopidogrel Bisulfate [Plavix] 75 mg PO ONCE #21 tablet 11/19/18 predniSONE [PredniSONE] 20 mg PO BIDWM #10 tablet 11/19/18 predniSONE [PredniSONE] 40 mg PO DAILY #10 tablet 12/11/18 Allergies Allergy/AdvReac Type Severity Reaction Status Date / Time cefazolin [From Ancef] Allergy Itching Verified 12/11/18 03:35 cephalexin [From Keflex] Allergy Hallucinati Verified 12/11/18 03:35 ng Constitutional: Denies: fever, chills, weakness, weight change Eyes: Denies: eye pain, eye discharge, vision change ENT ED: Denies: ear pain, throat pain, dental pain, hearing loss, epistaxis, congestion, dysphagia Cardiovascular: Denies: chest pain, palpitations, dyspnea on exertion, edema, syncope Respiratory: Reports: as per HPI, cough, dyspnea. Denies: wheezes, hemoptysis, stridor, sputum production Gastrointestinal: Denies: abdominal pain, nausea, vomiting, diarrhea, constipation, hematemesis, melena, hematochezia Genitourinary: Denies: dysuria, frequency, hematuria, discharge Musculoskeletal: Reports: as per HPI, myalgia (Right arm/right leg pain). Denies: back pain, neck pain, arthralgia Integumentary: Denies: rash, abrasion, lesions Neurological: Reports: as per HPI, confusion. Denies: headache, weakness, numbness, paresthesias, abnormal gait, vertigo Psychiatric: Denies: anxiety, depression, suicidal thoughts, homicidal thoughts, auditory hallucinations, visual hallucinations Endocrine: Denies: fatigue Hematological/Lymphatic: Denies: easy bleeding, easy bruising Allergic/Immunologic: Denies: facial swelling, urticaria Past Medical History - Past Medical History Medical history: Reports: arthritis, CHF, COPD, coronary artery disease, diabetes, GERD, hyperlipidemia, hypertension, osteoporosis, renal disease, thyroid disease, TIA, venous stasis Surgical history: Reports: angioplasty/stent, , cholecystectomy, hyster ectomy Psychiatric history: Reports: anxiety, bipolar, depression, panic disorder [employer] history: Reports: bilateral tubal ligation - Social History Smoking Status: Current some day smoker Smokeless Tobacco Status: No Alcohol use: Reports: none Drug use: Reports: none Physical Exam - General Limitations: no limitations General appearance: alert, in no apparent distress Course Vital Signs Temperature 98.6 F 01/14/19 10:01 Pulse Rate 86 01/14/19 10:01 Respiratory Rate 18 01/14/19 10:01 Blood Pressure 158/63 01/14/19 10:01 O2 Sat by Pulse Oximetry 97 01/14/19 10:01 Temperature 98.6 F 01/14/19 10:01 Pulse Rate 89 01/14/19 12:26 Respiratory Rate 16 01/14/19 12:26 Blood Pressure 166/83 01/14/19 12:26 O2 Sat by Pulse Oximetry 97 01/14/19 12:26 Oxygen Delivery Oxygen Delivery Nasal Cannula Medical Decision Making - Lab Data Result diagrams: 01/14/19 10:41 01/14/19 10:41 Lab Results 01/14/19 01/14/19 01/14/19 Range/Units 10:41 10:41 10:41 WBC 11.6 H (4.3-11.1) K/mcL RBC 5.00 H (3.82-4.97) M/mcL Hgb 10.7 L (11.5-15.4) g/dL Hct 37.2 (35.3-44.9) % MCV 74.4 L (83.0-100.0) fL MCH 21.4 L (28.0-33.3) pg MCHC 28.8 L (31.6-35.5) g/dL RDW 20.7 H (11.5-14.5) % Plt Count 297 (140-400) K/mcL MPV 10.8 (9.4-12.4) fL Immature Gran % 2.2 (0-4) % Seg Neutrophils % 70.0 % Lymphocytes % 17.4 % Monocytes % 6.6 % Eosinophils % 2.6 % Basophils % 1.2 % Neutrophils # 8.1 (1.6-8.9) K/mcL Lymphocytes # 2.0 (0.6-4.6) K/mcL Monocytes # 0.8 (0.0-1.3) K/mcL Eosinophils # 0.3 (0.0-0.6) K/mcL Basophils # 0.1 (0.0-0.2) K/mcL Nucleated RBCs/100 WBC 0.2 H (0) /100 WBC Platelet Estimate Normal (Normal) Hypochromasia Present A (Not Present) Anisocytosis 1+ A (Not Present) PT 10.2 (9.4-12.1) Seconds INR 0.9 APTT 28.3 (26.0-36.0) Seconds VBG pH (7.32-7.42) pH Units VBG pCO2 (41-51) mmHg VBG pO2 (25-50) mmHg VBG HCO3 (21-27) mEq/L Sodium 136 (136-145) mEq/L Potassium 4.5 (3.5-5.1) mEq/L Chloride 102 (98-107) mEq/L Carbon Dioxide 25 (23-29) mEq/L BUN 14 (8-23) mg/dL Creatinine 0.56 L (0.60-1.20) mg/dL Est GFR ( Amer) > 60 (> 60) Est GFR (Non-Af Amer) > 60 (> 60) BUN/Creatinine Ratio 25 (6-26) Glucose 225 H (70-105) mg/dL Calculated Osmolality 290 (280-300) Calcium 9.3 (8.6-10.3) mg/dL Total Bilirubin 0.3 (0.3-1.0) mg/dL Direct Bilirubin 0.1 (0.0-0.2) mg/dL Indirect Bilirubin 0.2 (0.0-1.2) mg/dL AST 10 L (13-39) Units/L ALT 9 (7-52) Units/L Alkaline Phosphatase 97 (34-104) Units/L Ammonia (16-53) mcmol/L Creatine Kinase 73 (30-223) Units/L Troponin I < 0.03 (< 0.04) ng/mL Serum Total Protein 6.4 (6.4-8.9) g/dL Albumin 3.6 (3.5-5.7) g/dL Globulin 2.8 (2.4-3.5) g/dL Albumin/Globulin Ratio 1.3 (1.1-2.2) Ur Drug Screen Interp Ethyl Alcohol < 10 (Less than 10) mg/dL 01/14/19 01/14/19 01/14/19 Range/Units 10:41 10:56 12:36 WBC (4.3-11.1) K/mcL RBC (3.82-4.97) M/mcL Hgb (11.5-15.4) g/dL Hct (35.3-44.9) % MCV (83.0-100.0) fL MCH (28.0-33.3) pg MCHC (31.6-35.5) g/dL RDW (11.5-14.5) % Plt Count (140-400) K/mcL MPV (9.4-12.4) fL Immature Gran % (0-4) % Seg Neutrophils % % Lymphocytes % % Monocytes % % Eosinophils % % Basophils % % Neutrophils # (1.6-8.9) K/mcL Lymphocytes # (0.6-4.6) K/mcL Monocytes # (0.0-1.3) K/mcL Eosinophils # (0.0-0.6) K/mcL Basophils # (0.0-0.2) K/mcL Nucleated RBCs/100 WBC (0) /100 WBC Platelet Estimate (Normal) Hypochromasia (Not Present) Anisocytosis (Not Present) PT (9.4-12.1) Seconds INR APTT (26.0-36.0) Seconds VBG pH 7.39 (7.32-7.42) pH Units VBG pCO2 42 (41-51) mmHg VBG pO2 115 H (25-50) mmHg VBG HCO3 25 (21-27) mEq/L Sodium (136-145) mEq/L Potassium (3.5-5.1) mEq/L Chloride (98-107) mEq/L Carbon Dioxide (23-29) mEq/L BUN (8-23) mg/dL Creatinine (0.60-1.20) mg/dL Est GFR ( Amer) (> 60) Est GFR (Non-Af Amer) (> 60) BUN/Creatinine Ratio (6-26) Glucose (70-105) mg/dL Calculated Osmolality (280-300) Calcium (8.6-10.3) mg/dL Total Bilirubin (0.3-1.0) mg/dL Direct Bilirubin (0.0-0.2) mg/dL Indirect Bilirubin (0.0-1.2) mg/dL AST (13-39) Units/L ALT (7-52) Units/L Alkaline Phosphatase (34-104) Units/L Ammonia 39 (16-53) mcmol/L Creatine Kinase (30-223) Units/L Troponin I (< 0.04) ng/mL Serum Total Protein (6.4-8.9) g/dL Albumin (3.5-5.7) g/dL Globulin (2.4-3.5) g/dL Albumin/Globulin Ratio (1.1-2.2) Ur Drug Screen Interp See Below Ethyl Alcohol (Less than 10) mg/dL Attestation Statement - Attestation Attestation: I, Bobby Wahl DO have provided [id number] time during the care of this patient. Detailed review the presentation, symptoms, medical history were discussed and reviewed with the advanced practice provider Son Norman PA-C/[employer]OT [employer]. Medical intervention labs and imaging studies were reviewed in detail. See full documentation of physical exam and course of care in the advanced practice provider's note. I agree with the determined course of care, medical intervention and disposition put forth by the advanced practice provider. See below documentation for changes or alterations in documentation. 63-year-old female presents emergency room with complaint of disorientation. Patient has had these symptoms now last 24 hours. Patient arrives emergency room by squad for evaluation. She denies any active chest pain or shortness of breath. Denies any headache or vision change. She has not had any other acute complaints or symptoms prior to these events. No fevers no chills. No nausea vomiting or diarrhea. She has not fallen or injured herself. Vital signs are initially stable. Accu-Chek was normal. Patient is awake and answers questions but does appear to be somnolent and falls asleep at the end of the conv ersations. She does disclose that she took all of her morning medications this morning on an empty stomach. She has not taken too much of any of her medications that she describes at this time. On physical exam the patient has stable neurologic evaluation. She has no visible signs of cranial nerve deficits. She has chronic facial droop on one side secondary to previous stroke. Her pupils are equal round reactive. Extracted muscles are intact. Oropharynx is patent and symmetrical. Patient has good strength against gravity in her upper and lower extremities. Finger to nose function is appropriate. No cerebellar deficits noted. Heel to boo is normal as well. Patient does appear to have some aspect of a toxidrome. Her lungs are clear heart is regular. Abdomen is soft. No pulsatile masses or lesions. Patient is otherwise currently stable. We will monitor here in emergency department until disposition is determined. See detailed documentation of the physical exam, medical intervention, medical decision-making and disposition in the advanced practice provider's note.. No critical care applied the patient's treatment course at this time. 1215 CT imaging the head is negative. Labs are unremarkable. Urinalysis is still pending. Patient will be admitted for monitoring of what appears to be disorientation with no acute neurologic deficits or metabolic derangements causing the symptoms here today. Patient is otherwise clinically stable. Anabiotic regiment will be started if the patient has findings on the urinalysis. Patient has been accepted by the hospitalist Dr. Shepherd no other recommendations or concerns at this point. Patient will be admitted for sym ptomatic control monitoring.
[2019-01-14 12:51] LABS: Bilirubin,Urine Negative (Negative); Blood,Urine Trace (Negative); Clarity,Urine Cloudy (Clear); Color,Urine Yellow (Yellow); Glucose,Urine (UA) Normal (Normal); Ketones,Urine Negative (Negative); Leukocyte Esterase,Urine Small (Negative); Nitrite,Urine Negative (Negative); Protein,Urine 30 mg/dL (Neg-Trace); Specific Gravity,Urine 1.012 (1.010-1.025); Urobilinogen,Urine Normal (Normal)
[2019-01-14 12:53] LABS: Bacteria,Urine Many per hpf (None-Few); Hyaline Casts,Urine None Seen per lpf (None-Few); RBC,Urine 0-3 per hpf (0-3); Squamous Epithelial Cell,Urine Few per lpf (None-Few); WBC,Urine 15-30 per hpf (0-3)
[2019-01-14 12:55] LABS: Amphetamine Screen,Urine Negative ng/mL (Cutoff=1000); Barbiturate Screen,Urine Negative ng/mL (Cutoff=200); Benzodiazepines Screen,Urine Negative ng/mL (Cutoff=200); Cannabinoid Screen,Urine Negative ng/mL (Cutoff = 50); Cocaine Screen,Urine Negative ng/mL (Cutoff= 300); Opiate Screen,Urine Negative ng/mL (Cutoff=300); Phencyclidine Screen,Urine Negative ng/mL (Cutoff=25)
[2019-01-14] MEDS ORDERED: Dextrose Gel 15 GM/37.5 ML TUBE PO PRN ×2 (16:19)
[2019-01-14] MEDS ORDERED: *HR* Dextrose 50 % in Water (Syg) 50 ML SYRINGE IVP PRN (16:19)
[2019-01-14] MEDS ORDERED: D5% in Water 1,000 ML IVC PRN (16:19)
[2019-01-14] MEDS ORDERED: Ipratropium/Albuterol Neb 3 ML IH PRN (16:20)
[2019-01-14] MEDS ORDERED: Mag Hydrox/Al Hydrox/Simeth 30 ML UDC PO PRN (16:23)
[2019-01-14] MEDS ORDERED: Naloxone 0.4 MG/ML INJ IVP PRN (16:23)
[2019-01-14] MEDS ORDERED: Acetaminophen 325 MG TABLET PO PRN (16:23)
[2019-01-14] MEDS ORDERED: traMADol 50 MG TABLET PO PRN (16:23)
[2019-01-14] MEDS ORDERED: MOM Conc 10 ML UD.LIQ PO PRN (16:23)
[2019-01-14] MEDS ORDERED: Ondansetron 4 MG/2 ML VIAL IVP PRN (16:23)
[2019-01-14] MEDS ORDERED: *HR* Promethazine 25 MG/ML VIAL IVP PRN (16:23)
--- NOTE | 2019-01-14 16:29 | Internal Med History&Physical ---
Date of Encounter: 01/14/19 Time of Encounter: 16:27 Internal Medicine - H&P: HPI Admitted From: Home Plans for Post Hospital Care: Home History of present illness: Ms. Lynch is a 63 year old female with a history of COPD (dependent on 1 L nasal cannula when necessary) arrives from home by EMS for evaluation of feelings of disorientation, nonproductive cough, shortness of breath above baseline, as well as nontraumatic right arm and right leg pain. The patient states she was prompted to call EMS because shortly prior to arrival, she develo ped pain in the right arm and right leg. She also claims to have had some "stiffness of the right arm and leg". She states that this "stiffness" has resolved without intervention however she is still feeling some discomfort. She denies any falls or injury. She denies any head injury. She denies any visual disturbances, numbness or tingling/weakness of the extremities. She denies any chest pain. She denies any abdominal pain, nausea, or vomiting. She states that she was started on trazodone recently and is concerned that that might be contributing. She states that she felt disoriented upon wakening however does also state that she had taken her trazodone, BuSpar gabapentin, and Klonopin this morning shortly after awakening. While the patient ED, her vital signs were stable, labs showed a possible UTI, CT head showed right-sided sinusitis without intracranial abnormalities. Chest x-ray showed mild pulmonary venous congestion. Patient will be admitted for further evaluation. CODE STATUS discussed with patient, she wishes to be full code. Past Med Surg Social Fam HX - Past Medical History Medical history: arthritis, CHF, COPD, coronary artery disease, diabetes, GERD, hyperlipidemia, hypertension, osteoporosis, renal disease, thyroid disease, TIA, venous stasis Additional medical history: recent UTI Psychiatric history: anxiety, bipolar, depression, panic disorder - Past Surgical History Surgical History: angioplasty/stent, , cholecystectomy, hysterectomy Additional surgical history: 4 cardiac stents, tubal ligation - Social History Smoking Status: Current some day smoker Smokeless Tobacco Status: No Alcohol use: none Drug use: none - Family History Brother Adopted: No Family Member Ethnicity: Non- Living Status: Hx Family Cardiac Disorders: Yes Father Adopted: No Family Member Ethnicity: Non- Living Status: Hx Family Cardiac Disorders: Yes (HD, HLD, HTN, MS, Triple Bypass) Hx Family Neurologic Disorders: Yes (Dementia) Mother Adopted: No Family Member Ethnicity: Non- Living Status: Hx Family Cardiac Disorders: Yes Hx Family Respiratory Disorders: Yes Hx Family Cancer: No Hx Family GI Disorders: No Hx Family Endocrine Disorder: Yes (DM) Hx Family Neuromuscular Disorders: No Hx Family Neurologic Disorders: Yes (Strokes) Hx Family HEENT Disorders: No Hx Family Autoimmune Disorders: No Internal Medicine - H&P: Meds metFORMIN [Glucophage] 1,000 mg PO BID 04/21/15 [History] Montelukast [Singulair] 10 mg PO QPM 02/04/16 [History] Insulin Glargine [Lantus] 80 unit SQ BID 03/25/16 [History] Albuterol Sulfate [Albuterol Inhaler] 2 puff IH Q4HR PRN 05/01/16 [History] Raloxifene [Evista] 60 mg PO DAILY 05/01/16 [History] Fenofibrate Nanocrystallized [Tricor] 145 mg PO DAILY 06/15/16 [History] Aspirin 81 mg PO DAILY #60 tab.chew 12/06/16 [Rx] Cholecalciferol (D-3) [Vitamin D] 1,000 unit PO DAILY 04/27/17 [History] Gabapentin [Neurontin] 800 mg PO TID 06/11/17 [History] Omeprazole [PriLOSEC] 20 mg PO DAILY 06/11/17 [History] Buspirone HCl [Buspar] 20 mg PO TID 09/12/17 [History] Tramadol HCl [Ultram] 50 mg PO TID PRN 09/19/17 [History] Nitroglycerin [Nitrostat] 0.4 mg SL PRN PRN 11/14/17 [History] ARIPiprazole [Abilify] 10 mg PO DAILY 01/18/18 [History] Levothyroxine Sodium [Levoxyl] 100 mcg PO QAM 01/18/18 [History] Metoclopramide [Reglan] 10 mg PO TIDWM PRN 01/18/18 [History] Tiotropium [Spiriva] 1 puff IH DAILY 01/18/18 [History] Insulin LISPRO [Humalog Kwikpen U-100] 3 - 10 unit SQ TID 02/25/18 [History] Methocarbamol [Robaxin] 500 mg PO Q8HR #15 tablet 08/23/18 [Rx] Albuterol Neb [Proventil Neb] 2.5 mg IH Q4HR PRN 09/09/18 [History] Atorvastatin [Lipitor] 40 mg PO DAILY 09/09/18 [History] Dicyclomine [Bentyl] 10 mg PO BID PRN 09/09/18 [History] Metoprolol XL (24 HR) Succ [Toprol Xl] 50 mg PO DAILY 09/09/18 [History] Budesonide/Formoterol 160/4.5 [Symbicort 160/4.5] 2 puff IH BIDR 10/10/18 [History] Buprenorphine [Butrans] 1 patch TD MO 10/10/18 [History] Citalopram Hydrobromide [Celexa] 40 mg PO DAILY 10/10/18 [History] Cyclobenzaprine HCl 10 mg PO TID 10/10/18 [History] Etodolac [Lodine] 400 mg PO BID 10/10/18 [History] Ondansetron ODT [Zofran ODT] 4 mg SL BID PRN 10/10/18 [History] Potassium Chloride 20 meq PO BID PRN 10/10/18 [History] clonazePAM [Klonopin] 0.5 mg PO BID PRN 10/10/18 [History] metOLazone [Zaroxolyn] 5 mg PO DAILY PRN 10/17/18 [History] Furosemide [Lasix] 40 mg PO BIDDIURETIC #120 tablet 10/18/18 [Rx] Isosorbide MONOnitrate [Isosorbide Mononitrate ER] 120 mg PO DAILY 10/26/18 [History] Clopidogrel Bisulfate [Plavix] 75 mg PO ONCE #21 tablet 11/19/18 [Rx] Allergy/AdvReac Type Severity Reaction Status Date / Time cefazolin [From Ancef] Allergy Itching Verified 12/11/18 03:35 cephalexin [From Keflex] Allergy Hallucinati Verified 12/11/18 03:35 ng All Systems PM: A 10-system review of systems was performed and is negative for pertinent findings except as documented above in the HPI. Review of systems: REVIEW OF SYSTEMS: CONSTITUTIONAL: No weight loss, fever, chills, weakness or fatigue. HEENT: Eyes: No visual loss, blurred vision, double vision or yellow sclerae. Ears, Nose, Throat: No hearing loss, sneezing, congestion, runny nose or sore throat. SKIN: No rash or itching. CARDIOVASCULAR: No chest pain, chest pressure or chest discomfort. No palpitations or edema. RESPIRATORY: see HPI. GASTROINTESTINAL: No anorexia, nausea, vomiting or diarrhea. No abdominal pain or blood. GENITOURINARY: No dysuria, urgency, or frequency. NEUROLOGICAL: No headache, dizziness, syncope, paralysis, ataxia, numbness or tingling in the extremities. No change in bowel or bladder control. MUSCULOSKELETAL: No muscle, back pain, joint pain or stiffness. HEMATOLOGIC: No anemia, bleeding or bruising. LYMPHATICS: No enlarged nodes. No history of splenectomy. PSYCHIATRIC: No history of depression or anxiety. ENDOCRINOLOGIC: No reports of sweating, cold or heat intolerance. No polyuria or polydipsia. - Constitutional Vitals: Temp Pulse Resp BP Pulse Ox 98.4 F 85 17 151/73 93 01/14/19 15:23 01/14/19 15:23 01/14/19 15:23 01/14/19 15:23 01/14/19 15:23 General appearance: Present: A&O X 3 Exam: PHYSICAL EXAMINATION: GENERAL APPEARANCE: The patient is alert, oriented and in no acute distress. HEENT: Head is normocephalic. The sinuses are nontender. Pupils are equal and reactive. The nares are patent. Oropharynx clear without lesions. NECK: Supple without lymphadenopathy. HEART: Regular rate and rhythm. LUNGS: No crackles or wheezes are heard. ABDOMEN: Soft, nontender, nondistended with good bowel sounds heard. Inguinal area is normal. EXTREMITIES: Without cyanosis, clubbing or edema. NEUROLOGICAL: Gross nonfocal. SKIN: Warm and dry without any rash. Internal Med - H&P Results - Labs CBC & Chem 7: 01/14/19 10:41 01/14/19 10:41 Labs: Short CBC 01/14/19 Range/Units 10:41 WBC 11.6 H (4.3-11.1) K/mcL Hgb 10.7 L (11.5-15.4) g/dL Hct 37.2 (35.3-44.9) % Plt Count 297 (140-400) K/mcL Neutrophils # 8.1 (1.6-8.9) K/mcL BMP 01/14/19 10:41 Sodium 136 Potassium 4.5 Chloride 102 Carbon Dioxide 25 BUN 14 Creatinine 0.56 L Glucose 225 H Calcium 9.3 Cardiac Enzymes 01/14/19 Range/Units 10:41 Troponin I < 0.03 (< 0.04) ng/mL Liver Function 01/14/19 Range/Units 10:41 Total Bilirubin 0.3 (0.3-1.0) mg/dL Direct Bilirubin 0.1 (0.0-0.2) mg/dL AST 10 L (13-39) Units/L ALT 9 (7-52) Units/L Alkaline Phosphatase 97 (34-104) Units/L Albumin 3.6 (3.5-5.7) g/dL Urine 01/14/19 Range/Units 12:36 Urine Color Yellow (Yellow) Urine Clarity Cloudy A (Clear) Urine pH 7.0 (5.0-8.0) pH Units Ur Specific [place] 1.012 (1.010-1.025) Urine Protein 30 H (Neg-Trace) mg/dL Urine Glucose (UA) Normal (Normal) mg/dL - ABG Interpretation ABG results: 01/14/19 10:56 VBG pH 7.39 VBG pCO2 42 VBG pO2 115 H VBG HCO3 25 - Impressions ITS Impressions Chest X-Ray 01/14/19 09:56 IMPRESSION: Bilateral reticular opacity suggesting mild interstitial edema, less likely atypical infection. D/ / Donell Denton MD / Donell Denton MD Interpreting Provider: Donell Denton MD Head CT 01/14/19 09:56 IMPRESSION: 1. No acute gross intracranial abnormality. 2. Acute right maxillary sinusitis. D/ / Everett Miranda MD / Everett Miranda MD Interpreting Provider: Everett Miranda MD - Assessment and Plan (1) Altered mental status Current Visit: Yes Status: Acute Assessment and plan: Patient reported that she has been started on trazodone recently for her anxiety/depression in addition to BuSpar, Klonopin, and the gabapentin. The mental status change could be the side effect of polypharmacy. Trazodone was on hold. Patient currently alert and oriented 3. She does not have any signs or symptoms of serotonin syndrome or drug overdose. Qualifiers: Altered mental status type: unspecified Qualified Code(s): R41.82 - Altered mental status, unspecified (2) Acute sinusitis Current Visit: Yes Status: Acute Assessment and plan: Patient was started on IV Levaquin to cover both acute sinusitis and UTI. She might also has community-acquired pneumonia, blood culture ordered. Qualifiers: Sinusitis location: maxillary Recurrence: not specified as recurrent Qualified Code(s): J01.00 - Acute maxillary sinusitis, unspecified (3) UTI (urinary tract infection) Current Visit: Yes Status: Acute Assessment and plan: Urine culture pending, started the patient on IV Levaquin. Qualifiers: Urinary tract infection type: acute cystitis Hematuria presence: without hematuria Qualified Code(s): N30.00 - Acute cystitis without hematuria (4) COPD (chronic obstructive pulmonary disease) Current Visit: No Status: Chronic Assessment and plan: ABG showed in no acute respiratory failure, however, patient reported seasonal allergy, we will start the patient on DuoNeb is scheduled dose and also as needed dose, continue home bronchodilators, started patient on oral steroid. Qualifiers: COPD type: unspecified COPD Qualified Code(s): J44.9 - Chronic obstructive pulmonary disease, unspecified (5) Hypothyroidism Current Visit: No Status: Chronic Assessment and plan: Continue home medication. Qualifiers: Hypothyroidism type: acquired Qualified Code(s): E03.9 - Hypothyroidism, unspecified (6) Anxiety and depression Current Visit: No Status: Chronic Assessment and plan: We will continue BuSpar, Klonopin, and gabapentin, DC trazodone because of disorientation. (7) Chronic diastolic CHF (congestive heart failure) Current Visit: No Status: Chronic Assessment and plan: Continue home medication including Lasix. (8) Morbid obesity with BMI of 40.0-44.9, adult Current Visit: No Status: Chronic Assessment and plan: Weight control discussed with patient. (9) CAD (coronary artery disease) Current Visit: No Status: Chronic Assessment and plan: Continue home medication. Qualifiers: Coronary Disease-Associated Artery/Lesion type: [place] artery [place] vs. transplanted heart: [place] heart Associated angina: with stable angina Qualified Code(s): I25.118 - Atherosclerotic heart disease of [place] coronary artery with other forms of angina pectoris (10) HTN (hypertension) Current Visit: No Status: Chronic Assessment and plan: Continue home medication. Qualifiers: Hypertension type: essential hypertension Qualified Code(s): I10 - Essential (primary) hypertension (11) Type 2 diabetes mellitus Current Visit: No Status: Chronic Assessment and plan: Continue home insulin, started patient on insulin sliding scale. 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 - Time Spent With Patient Total time spent is greater than 50% in coordination of care (as documented) at patient's floor/unit and/or counseling patient: Greater than 35 minutes
[2019-01-14] MEDS ORDERED: Levofloxacin 500 MG/100 ML 500 MG/100 ML BAG IVPB SCH (17:00)
[2019-01-14] MEDS: Furosemide 40 MG TABLET PO SCH (18:04)
[2019-01-14] MEDS: *HR* Heparin 5,000 UNIT/ML VIAL SQ SCH (18:05)
[2019-01-14] MEDS: Insulin LISPRO 300 UNITS/3 ML VIAL SQ SCH (18:05)
[2019-01-14] MEDS: Ipratropium/Albuterol Neb 3 ML IH SCH (19:52)
[2019-01-14] MEDS: Budesonide/Formoterol 160/4.5 1 PUFF INH IH SCH (19:53)
[2019-01-14] MEDS ORDERED: Insulin LISPRO 300 UNITS/3 ML VIAL SQ SCH (21:00)
[2019-01-15] MEDS: Ipratropium/Albuterol Neb 3 ML IH SCH ×3 (00:22→07:31)
[2019-01-15 03:42] LABS: Immature Granulocytes % 1.6 % (0-4)
[2019-01-15 03:43] LABS: Eosinophils % 2.1 %
[2019-01-15 03:44] LABS: Basophils # 0.1 K/mcL (0.0-0.2); Basophils % 0.9 %; Eosinophils # 0.2 K/mcL (0.0-0.6); Hematocrit 37.1 % (35.3-44.9); Hemoglobin 10.6 g/dL (11.5-15.4); Lymphocytes # 2.9 K/mcL (0.6-4.6); Mean Corpuscular HGB Conc 28.6 g/dL (31.6-35.5); Mean Corpuscular Hemoglobin 21.2 pg (28.0-33.3); Mean Corpuscular Volume 74.1 fL (83.0-100.0); Mean Platelet Volume 10.3 fL (9.4-12.4); Monocytes # 0.8 K/mcL (0.0-1.3); Monocytes % 6.9 %; Neutrophils # 7.4 K/mcL (1.6-8.9); Platelet Count 290 K/mcL (140-400); Red Blood Count 5.01 M/mcL (3.82-4.97); Red Cell Distribution Width 21.2 % (11.5-14.5); Segmented Neutrophils % 63.5 %
[2019-01-15 04:03] LABS: BUN/Creatinine Ratio 30 (6-26); Blood Urea Nitrogen 14 mg/dL (8-23); Calcium 8.8 mg/dL (8.6-10.3); Carbon Dioxide 26 mEq/L (23-29); Chloride 104 mEq/L (98-107); Glucose 167 mg/dL (70-105); Osmolality,Calculated 288 (280-300); Potassium 4.1 mEq/L (3.5-5.1); Sodium 137 mEq/L (136-145); eGFR For Non-African Americans > 60 (> 60)
[2019-01-15 04:33] LABS: Anisocytosis 1+ (Not Present); Hypochromasia Present (Not Present); Platelet Estimate Normal (Normal)
[2019-01-15] MEDS: *HR* Heparin 5,000 UNIT/ML VIAL SQ SCH (05:03)
[2019-01-15] MEDS ORDERED: Gabapentin 400 MG CAPSULE PO ONE (06:11)
[2019-01-15 07:28] VITALS: BP 151/75
[2019-01-15] MEDS: Budesonide/Formoterol 160/4.5 1 PUFF INH IH SCH (07:30)
[2019-01-15 08:01] LABS: % Iron Saturation 3 % (15-50); Iron 13 mcg/dL (50-170); Transferrin 305 mg/dL (203-362)
[2019-01-15] MEDS: Insulin LISPRO 300 UNITS/3 ML VIAL SQ SCH (08:09)
[2019-01-15] MEDS: Furosemide 40 MG TABLET PO SCH (08:10)
[2019-01-15 08:17] LABS: Ferritin 11 ng/mL (10-120)
--- NOTE | 2019-01-15 08:52 | Discharge Summary ---
- NOTES TO OUTPATIENT PROVIDER Notes to Outpatient Provider: f/u with psychiatry as scheduled. Orders not resulted at time of discharge: Pending orders 01/14/19 12:36 Culture,Urine [RM] Stat Date of Encounter: 01/15/19 Time of Encounter: 08:47 - Discharge Diagnosis (1) Altered mental status Priority: Primary Status: Acute Qualifiers: Altered mental status type: unspecified Qualified Code(s): R41.82 - Altered mental status, unspecified (2) Acute sinusitis Priority: Primary Status: Acute Qualifiers: Sinusitis location: maxillary Recurrence: not specified as recurrent Qualified Code(s): J01.00 - Acute maxillary sinusitis, unspecified (3) UTI (urinary tract infection) Priority: Primary Status: Acute Qualifiers: Urinary tract infection type: acute cystitis Hematuria presence: without hematuria Qualified Code(s): N30.00 - Acute cystitis without hematuria (4) COPD (chronic obstructive pulmonary disease) Priority: Secondary Status: Chronic Qualifiers: COPD type: unspecified COPD Qualified Code(s): J44.9 - Chronic obstructive pulmonary disease, unspecified (5) Hypothyroidism Priority: Secondary Status: Chronic Qualifiers: Hypothyroidism type: acquired Qualified Code(s): E03.9 - Hypothyroidism, unspecified (6) Anxiety and depression Priority: Secondary Status: Chronic (7) Chronic diastolic CHF (congestive heart failure) Priority: Secondary Status: Chronic (8) Morbid obesity with BMI of 40.0-44.9, adult Priority: Secondary Status: Chronic (9) CAD (coronary artery disease) Priority: Secondary Status: Chronic Qualifiers: Coronary Disease-Associated Artery/Lesion type: [place] artery [place] vs. transplanted heart: [place] heart Associated angina: with stable angina Qualified Code(s): I25.118 - Atherosclerotic heart disease of [place] coronary artery with other forms of angina pectoris (10) HTN (hypertension) Priority: Secondary Status: Chronic Qualifiers: Hypertension type: essential hypertension Qualified Code(s): I10 - Essential (primary) hypertension (11) Type 2 diabetes mellitus Priority: Secondary Status: Chronic 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 mellitus correction insulin use: with correction use Diabetes mellitus complication status: with neurologic complications Diabetes mellitus complication detail: with polyneuropathy Qualified Code(s): E11.42 - Type 2 diabetes mellitus with diabetic polyneuropathy; Z79.4 - termination clerk (current) use of insulin; Z79.4 - termination clerk (current) use of insulin; Z79.4 - group home (current) use of insulin; Z79.4 - group home (current) use of insulin (12) DVT prophylaxis Priority: Primary Status: Acute Hospital course: Ms. Lynch is a 63 year old female with a history of COPD (dependent on 1 L nasal cannula when necessary) arrives from home by EMS for evaluation of feelings of disorientation, nonproductive cough, shortness of breath above baseline, as well as nontraumatic right arm and right leg pain. The patient states she was prompted to call EMS because shortly prior to arrival, she de veloped pain in the right arm and right leg. She also claims to have had some "stiffness of the right arm and leg". She states that this "stiffness" has resolved without intervention however she is still feeling some discomfort. She denies any falls or injury. She denies any head injury. She denies any visual disturbances, numbness or tingling/weakness of the extremities. She denies any chest pain. She denies any abdominal pain, nausea, or vomiting. She states that she was started on trazodone recently and is concerned that that might be contributing. She states that she felt disoriented upon wakening however does also state that she had taken her trazodone, BuSpar gabapentin, and Klonopin this morning shortly after awakening. While the patient ED, her vital signs were stable, labs showed a possible UTI, CT head showed right-sided sinusitis without intracranial abnormalities. Chest x-ray showed mild pulmonary venous congestion. Patient mental status significantly improved after trazodone was DC'd. UTI and sinusitis were treated with IV Levaquin. On the second hospital day, patient reported she feels good, her mental status has improved to her baseline, patient request going home. We will discharge the patient today, instructed her to complete oral antibiotics as prescribed, stop taking trazodone, and follow up with psychiatry as scheduled. Discharge discussed with: patient Time spent discussing smoking cessation with patient: more than 10 minutes - Time Spent with Patient Total time spent providing and/or coordinating discharge services: Time spent: Greater than 30 minutes - Discharge Medications Prescriptions: New Levofloxacin [Levaquin] 500 mg PO DAILY #7 tablet Continued Montelukast [Singulair] 10 mg PO QPM Insulin Glargine [Lantus] 80 unit SQ BID Albuterol Sulfate [Albuterol Inhaler] 2 puff IH Q4HR PRN PRN Reason: Shortness Of Breath Raloxifene [Evista] 60 mg PO DAILY Fenofibrate Nanocrystallized [Tricor] 145 mg PO DAILY Aspirin 81 mg PO DAILY #60 tab.chew Cholecalciferol (D-3) [Vitamin D] 1,000 unit PO DAILY Omeprazole [PriLOSEC] 20 mg PO DAILY Gabapentin [Neurontin] 800 mg PO TID Buspirone HCl [Buspar] 20 mg PO TID Tramadol HCl [Ultram] 50 mg PO TID PRN PRN Reason: Severe Pain ARIPiprazole [Abilify] 10 mg PO DAILY Levothyroxine Sodium [Levoxyl] 100 mcg PO QAM Metoclopramide [Reglan] 10 mg PO TIDWM PRN PRN Reason: Nausea Tiotropium [Spiriva] 1 puff IH DAILY Insulin LISPRO [Humalog Kwikpen U-100] 3 - 10 unit SQ TID Methocarbamol [Robaxin] 500 mg PO Q8HR #15 tablet Dicyclomine [Bentyl] 10 mg PO BID PRN PRN Reason: Diarrhea Metoprolol XL (24 HR) Succ [Toprol Xl] 50 mg PO DAILY Atorvastatin [Lipitor] 40 mg PO DAILY Albuterol Neb [Proventil Neb] 2.5 mg IH Q4HR PRN PRN Reason: Shortness Of Breath Ondansetron ODT [Zofran ODT] 4 mg SL BID PRN PRN Reason: nausea Budesonide/Formoterol 160/4.5 [Symbicort 160/4.5] 2 puff IH BIDR Buprenorphine [Butrans] 1 patch TD MO Citalopram Hydrobromide [Celexa] 40 mg PO DAILY clonazePAM [Klonopin] 0.25 mg PO BID PRN PRN Reason: Anxiety Cyclobenzaprine HCl 10 mg PO TID Etodolac [Lodine] 400 mg PO BID Potassium Chloride 20 meq PO BID PRN PRN Reason: ONLY WITH DIEURETICS metOLazone [Zaroxolyn] 5 mg PO DAILY PRN PRN Reason: SWELLING Furosemide [Lasix] 40 mg PO BIDDIURETIC #120 tablet Isosorbide MONOnitrate [Isosorbide Mononitrate ER] 120 mg PO DAILY Metformin HCl [Glucophage] 1,000 mg PO BID Clopidogrel Bisulfate [Plavix] 75 mg PO DAILY Nitroglycerin [Nitrostat] 0.4 mg SL PRN PRN PRN Reason: Chest Pain Discontinued traZODone [TraZODone] 50 mg PO HS Home Medications: Montelukast [Singulair] 10 mg PO QPM 02/04/16 [History] Insulin Glargine [Lantus] 80 unit SQ BID 03/25/16 [History] Albuterol Sulfate [Albuterol Inhaler] 2 puff IH Q4HR PRN 05/01/16 [History] Raloxifene [Evista] 60 mg PO DAILY 05/01/16 [History] Fenofibrate Nanocrystallized [Tricor] 145 mg PO DAILY 06/15/16 [History] Aspirin 81 mg PO DAILY #60 tab.chew 12/06/16 [Rx] Cholecalciferol (D-3) [Vitamin D] 1,000 unit PO DAILY 04/27/17 [History] Gabapentin [Neurontin] 800 mg PO TID 06/11/17 [History] Omeprazole [PriLOSEC] 20 mg PO DAILY 06/11/17 [History] Buspirone HCl [Buspar] 20 mg PO TID 09/12/17 [History] Tramadol HCl [Ultram] 50 mg PO TID PRN 09/19/17 [History] Nitroglycerin [Nitrostat] 0.4 mg SL PRN PRN 11/14/17 [History] ARIPiprazole [Abilify] 10 mg PO DAILY 01/18/18 [History] Levothyroxine Sodium [Levoxyl] 100 mcg PO QAM 01/18/18 [History] Metoclopramide [Reglan] 10 mg PO TIDWM PRN 01/18/18 [History] Tiotropium [Spiriva] 1 puff IH DAILY 01/18/18 [History] Insulin LISPRO [Humalog Kwikpen U-100] 3 - 10 unit SQ TID 02/25/18 [History] Methocarbamol [Robaxin] 500 mg PO Q8HR #15 tablet 08/23/18 [Rx] Albuterol Neb [Proventil Neb] 2.5 mg IH Q4HR PRN 09/09/18 [History] Atorvastatin [Lipitor] 40 mg PO DAILY 09/09/18 [History] Dicyclomine [Bentyl] 10 mg PO BID PRN 09/09/18 [History] Metoprolol XL (24 HR) Succ [Toprol Xl] 50 mg PO DAILY 09/09/18 [History] Budesonide/Formoterol 160/4.5 [Symbicort 160/4.5] 2 puff IH BIDR 10/10/18 [Hist ory] Buprenorphine [Butrans] 1 patch TD MO 10/10/18 [History] Citalopram Hydrobromide [Celexa] 40 mg PO DAILY 10/10/18 [History] Cyclobenzaprine HCl 10 mg PO TID 10/10/18 [History] Etodolac [Lodine] 400 mg PO BID 10/10/18 [History] Ondansetron ODT [Zofran ODT] 4 mg SL BID PRN 10/10/18 [History] Potassium Chloride 20 meq PO BID PRN 10/10/18 [History] clonazePAM [Klonopin] 0.25 mg PO BID PRN 10/10/18 [History] metOLazone [Zaroxolyn] 5 mg PO DAILY PRN 10/17/18 [History] Furosemide [Lasix] 40 mg PO BIDDIURETIC #120 tablet 10/18/18 [Rx] Isosorbide MONOnitrate [Isosorbide Mononitrate ER] 120 mg PO DAILY 10/26/18 [History] Clopidogrel Bisulfate [Plavix] 75 mg PO DAILY 01/14/19 [History] Metformin HCl [Glucophage] 1,000 mg PO BID 01/14/19 [History] Levofloxacin [Levaquin] 500 mg PO DAILY #7 tablet 01/15/19 [Rx] Allergies/Adverse Reactions: Allergy/AdvReac Type Severity Reaction Status Date / Time cefazolin [From Ancef] Allergy Itching Verified 12/11/18 03:35 cephalexin [From Keflex] Allergy Hallucinati Verified 12/11/18 03:35 ng Date of admission: 01/14/19 13:30 Primary care physician: Isaac Morley MD Anticipated date of discharge: 01/15/19 - Constitutional Vitals: Temp Pulse Resp BP Pulse Ox 98.0 F 75 16 151/75 97 01/15/19 07:22 01/15/19 07:22 01/15/19 07:32 01/15/19 07:22 01/15/19 07:32 General appearance: Present: A&O X 3 Exam: PHYSICAL EXAMINATION: GENERAL APPEARANCE: The patient is alert, oriented and in no acute distress. HEENT: Head is normocephalic. The sinuses are nontender. Pupils are equal and reactive. The nares are patent. Oropharynx clear without lesions. NECK: Supple without lymphadenopathy. HEART: Regular rate and rhythm. LUNGS: No crackles or wheezes are heard. ABDOMEN: Soft, nontender, nondistended with good bowel sounds heard. Inguinal area is normal. EXTREMITIES: Without cyanosis, clubbing or edema. NEUROLOGICAL: Gross nonfocal. SKIN: Warm and dry without any rash. - Patient Status Disposition: Home, Self-Care Condition: Fair Functional capacity at discharge: independent ambulation Overall status at discharge: patient is progressing back to baseline - Discharge Instructions Forms: ED Satisfaction Letter - Diet and Activity Activity: increase activity as tolerated Diet: diabetic diet, low fat, low cholesterol, low salt diet
[2019-01-15] MEDS ORDERED: predniSONE 20 MG TABLET PO SCH (09:00)
--- NOTE | 2019-01-15 10:14 | Electrocardiograph Report ---
[place] [id number] Test Date: 2019-01-14 Pat Name: Claire Lynch Department: [id number] Room: 3B34 Gender: F [place] [employer]: : 1955 Requested By: Son Norman Order Number: [id number] Reading MD: Tristian George Measurements Intervals [place] Rate: 88 P: 66 [place]: 153 QRS: 70 QRSD: 98 T: 44 QT: 382 QTc: 463 Interpretive Statements Sinus rhythm Low voltage, precordial leads Electronically Signed On 01-15-2019 10:12:46 EDT by Tristian George
== END 2019-01-15 11:27 | disposition home or self-care (01) ==
LOC: EMEROOARM 09:46 → 3BNU 09:46
PROVIDERS: ADMIT Internal Medicine Nephrology; ATTEND Internal Medicine Nephrology

== ENCOUNTER 2019-04-11 21:50 | Observation (INO) ==
[2019-04-11 22:43] LABS: Eosinophils % 2.2 %; Mean Corpuscular HGB Conc 28.8 g/dL (31.6-35.5)
[2019-04-11 22:45] LABS: Basophils # 0.1 K/mcL (0.0-0.2); Basophils % 0.6 %; Eosinophils # 0.3 K/mcL (0.0-0.6); Hematocrit 33.7 % (35.3-44.9); Hemoglobin 9.7 g/dL (11.5-15.4); Immature Granulocytes % 1.4 % (0-4); Lymphocytes # 3.3 K/mcL (0.6-4.6); Lymphocytes % 26.9 %; Mean Corpuscular Hemoglobin 21.6 pg (28.0-33.3); Mean Corpuscular Volume 74.9 fL (83.0-100.0); Mean Platelet Volume 10.2 fL (9.4-12.4); Neutrophils # 7.8 K/mcL (1.6-8.9); Platelet Count 278 K/mcL (140-400); Red Cell Distribution Width 19.1 % (11.5-14.5); Segmented Neutrophils % 62.9 %; White Blood Count 12.4 K/mcL (4.3-11.1)
[2019-04-11 22:48] LABS: Monocytes # 0.7 K/mcL (0.0-1.3)
[2019-04-11 22:54] LABS: INR 0.9; Prothrombin Time 10.4 Seconds (9.4-12.1)
[2019-04-11 22:57] LABS: Hypochromasia Present (Not Present); Polychromasia 2+ (Not Present)
[2019-04-11 22:57] LABS: Activated Partial Thrombo Time 29.4 Seconds (26.0-36.0)
[2019-04-11 22:58] LABS: Microcytosis Present (Not Present)
[2019-04-11 23:00] LABS: BUN/Creatinine Ratio 26 (6-26); Blood Urea Nitrogen 15 mg/dL (8-23); Calcium 8.7 mg/dL (8.6-10.3); Carbon Dioxide 22 mEq/L (23-29); Chloride 106 mEq/L (98-107); Glucose 130 mg/dL (70-105); Osmolality,Calculated 283 (280-300); Sodium 135 mEq/L (136-145); eGFR For African Americans > 60 (> 60); eGFR For Non-African Americans > 60 (> 60)
[2019-04-11 23:01] LABS: Troponin I < 0.03 ng/mL (< 0.04)
[2019-04-11] MEDS ORDERED: Ipratropium/Albuterol Neb 3 ML IH ONE (23:29)
[2019-04-11] MEDS: Furosemide 40 MG/4 ML VIAL IVP ONE (23:38)
[2019-04-11] MEDS ORDERED: Nitroglycerin 0.4 MG TAB.SUBL SL PRN (23:39)
[2019-04-12] MEDS ORDERED: Furosemide 40 MG/4 ML VIAL IVP ONE (00:42)
[2019-04-12] MEDS ORDERED: levoFLOXacin 750 MG/150 ML 750 MG/150 ML BAG IVPB ONE (00:45)
[2019-04-12] MEDS ORDERED: Azithromycin 500 MG in D5% in Water 250 ML IVPB ONE (00:45)
[2019-04-12] MEDS ORDERED: Ondansetron 4 MG/2 ML VIAL IVP PRN (00:48)
[2019-04-12] MEDS ORDERED: Naloxone 0.4 MG/ML INJ IVP PRN (00:48)
[2019-04-12] MEDS: Furosemide 40 MG/4 ML VIAL IVP ONE (01:11)
[2019-04-12 01:37] LABS: Basophils % 0.6 %; Hemoglobin 9.4 g/dL (11.5-15.4); Red Cell Distribution Width 18.8 % (11.5-14.5)
[2019-04-12 01:38] LABS: Basophils # 0.1 K/mcL (0.0-0.2); Eosinophils # 0.3 K/mcL (0.0-0.6); Eosinophils % 2.6 %; Hematocrit 32.9 % (35.3-44.9); Immature Granulocytes % 1.6 % (0-4); Lymphocytes # 3.5 K/mcL (0.6-4.6); Lymphocytes % 28.9 %; Mean Corpuscular HGB Conc 28.6 g/dL (31.6-35.5); Mean Corpuscular Hemoglobin 21.3 pg (28.0-33.3); Mean Corpuscular Volume 74.6 fL (83.0-100.0); Mean Platelet Volume 10.1 fL (9.4-12.4); Monocytes # 0.7 K/mcL (0.0-1.3); Monocytes % 5.8 %; Neutrophils # 7.3 K/mcL (1.6-8.9); Nucleated Red Blood Cells 0.2 /100 WBC (0); Platelet Count 288 K/mcL (140-400); Red Blood Count 4.41 M/mcL (3.82-4.97); Segmented Neutrophils % 60.5 %
[2019-04-12 01:45] LABS: INR 0.9; Prothrombin Time 10.4 Seconds (9.4-12.1)
[2019-04-12 01:48] LABS: Activated Partial Thrombo Time 29.6 Seconds (26.0-36.0)
[2019-04-12 01:56] LABS: Alanine Aminotransferase 8 Units/L (7-52); Albumin 3.1 g/dL (3.5-5.7); Albumin/Globulin Ratio 1.1 (1.1-2.2); Alkaline Phosphatase 74 Units/L (34-104); Aspartate Amino Transferase 9 Units/L (13-39); BUN/Creatinine Ratio 25 (6-26); Bilirubin,Total 0.3 mg/dL (0.3-1.0); Blood Urea Nitrogen 14 mg/dL (8-23); Calcium 8.8 mg/dL (8.6-10.3); Carbon Dioxide 24 mEq/L (23-29); Chloride 107 mEq/L (98-107); Chol/HDL Ratio 3.3 (0-4.9); Cholesterol 141 mg/dL (< 200); Globulin 2.9 g/dL (2.4-3.5); Glucose 125 mg/dL (70-105); HDL Cholesterol 43 mg/dL (40-59); LDL Cholesterol,Calculated 62 mg/dL (0-99); Magnesium 1.5 mg/dL (1.6-2.6); Osmolality,Calculated 286 (280-300); Potassium 3.9 mEq/L (3.5-5.1); Sodium 137 mEq/L (136-145); Triglycerides 181 mg/dL (< 150); eGFR For African Americans > 60 (> 60); eGFR For Non-African Americans > 60 (> 60)
[2019-04-12 02:25] LABS: Hypochromasia Present (Not Present); Platelet Estimate Normal (Normal); Polychromasia 1+ (Not Present)
[2019-04-12] MEDS ORDERED: Ipratropium/Albuterol Neb 3 ML IH PRN (07:37)
[2019-04-12] MEDS ORDERED: Furosemide 40 MG/4 ML VIAL IVP SCH (09:00)
[2019-04-12] MEDS: Furosemide 40 MG/4 ML VIAL IVP SCH ×2 (09:02→16:28)
[2019-04-12] MEDS ORDERED: Nitroglycerin 0.4 MG TAB.SUBL SL PRN (09:44)
[2019-04-12] MEDS ORDERED: clonazePAM 0.5 MG TABLET PO PRN (09:44)
[2019-04-12] MEDS ORDERED: Albuterol 2.5 MG/3 ML NEBULIZER IH PRN ×2 (09:44→10:12)
[2019-04-12] MEDS ORDERED: *HR* Dextrose 50 % in Water (Syg) 50 ML SYRINGE IVP PRN (10:11)
[2019-04-12] MEDS ORDERED: D5% in Water 1,000 ML IVC PRN (10:11)
[2019-04-12] MEDS ORDERED: Dextrose Gel 15 GM/37.5 ML TUBE PO PRN ×2 (10:11)
[2019-04-12] MEDS: Budesonide/Formoterol 160/4.5 1 PUFF INH IH SCH ×2 (11:19→20:16)
[2019-04-12] MEDS: Tiotropium 18 MCG inhalation IH SCH (11:20)
[2019-04-12] MEDS: Insulin LISPRO 300 UNITS/3 ML VIAL SQ SCH ×3 (11:23→21:32)
[2019-04-12] MEDS: Aspirin 81 MG TAB.CHEW PO SCH (11:25)
[2019-04-12] MEDS: Gabapentin 400 MG CAPSULE PO SCH ×2 (14:24→21:33)
[2019-04-12] MEDS: Nicotine 21 MG PATCH.TD24 TD SCH (21:32)
[2019-04-12] MEDS: Insulin DETEMIR 100 UNIT/ML X5UNITS SQ SCH (21:33)
[2019-04-13 03:04] LABS: Hemoglobin 9.8 g/dL (11.5-15.4); Mean Corpuscular Hemoglobin 20.9 pg (28.0-33.3)
[2019-04-13 03:06] LABS: Basophils # 0.1 K/mcL (0.0-0.2); Basophils % 0.5 %; Eosinophils # 0.2 K/mcL (0.0-0.6); Hematocrit 34.9 % (35.3-44.9); Immature Granulocytes % 0.9 % (0-4); Lymphocytes # 2.6 K/mcL (0.6-4.6); Lymphocytes % 23.9 %; Mean Corpuscular HGB Conc 28.1 g/dL (31.6-35.5); Mean Corpuscular Volume 74.6 fL (83.0-100.0); Mean Platelet Volume 10.4 fL (9.4-12.4); Monocytes # 0.8 K/mcL (0.0-1.3); Monocytes % 7.4 %; Neutrophils # 7.1 K/mcL (1.6-8.9); Platelet Count 298 K/mcL (140-400); Red Blood Count 4.68 M/mcL (3.82-4.97); Red Cell Distribution Width 18.9 % (11.5-14.5); Segmented Neutrophils % 65.3 %; White Blood Count 10.9 K/mcL (4.3-11.1)
[2019-04-13 03:25] LABS: BUN/Creatinine Ratio 27 (6-26); Blood Urea Nitrogen 13 mg/dL (8-23); Carbon Dioxide 30 mEq/L (23-29); Chloride 102 mEq/L (98-107); Glucose 121 mg/dL (70-105); Osmolality,Calculated 289 (280-300); Potassium 3.6 mEq/L (3.5-5.1); Sodium 139 mEq/L (136-145); eGFR For African Americans > 60 (> 60); eGFR For Non-African Americans > 60 (> 60)
[2019-04-13] MEDS ORDERED: Acetaminophen 325 MG TABLET PO ONE (05:31)
[2019-04-13] MEDS: Budesonide/Formoterol 160/4.5 1 PUFF INH IH SCH ×2 (07:51→19:52)
[2019-04-13] MEDS: Tiotropium 18 MCG inhalation IH SCH (07:51)
[2019-04-13] MEDS ORDERED: Tiotropium 18 MCG inhalation IH SCH (09:00)
[2019-04-13] MEDS: Gabapentin 400 MG CAPSULE PO SCH ×3 (09:16→20:36)
[2019-04-13] MEDS: Nicotine 21 MG PATCH.TD24 TD SCH (09:17)
[2019-04-13] MEDS: Metoprolol XL (24 HR) Succ 50 MG TAB.ER.24H PO SCH (09:18)
[2019-04-13] MEDS: Aspirin 81 MG TAB.CHEW PO SCH (09:18)
[2019-04-13] MEDS: Isosorbide MONOnitrate (24 HR) 60 MG TAB.ER.24H PO SCH (09:18)
[2019-04-13] MEDS: ARIPiprazole 10 MG TABLET PO SCH (09:18)
[2019-04-13] MEDS: Cholecalciferol (D-3) 1,000 UNIT (25MCG) TABLET PO SCH (09:19)
[2019-04-13] MEDS: Insulin DETEMIR 100 UNIT/ML X5UNITS SQ SCH ×2 (09:19→20:37)
[2019-04-13] MEDS: Furosemide 40 MG/4 ML VIAL IVP SCH ×2 (09:19→16:05)
[2019-04-13] MEDS: Insulin LISPRO 300 UNITS/3 ML VIAL SQ SCH ×4 (09:20→20:38)
[2019-04-13] MEDS: Acetaminophen 325 MG TABLET PO PRN ×2 (12:20→20:36)
[2019-04-14] MEDS: Tiotropium 18 MCG inhalation IH SCH (07:38)
[2019-04-14] MEDS: Budesonide/Formoterol 160/4.5 1 PUFF INH IH SCH (07:38)
[2019-04-14 07:49] VITALS: BP 133/58
[2019-04-14 07:57] LABS: BUN/Creatinine Ratio 37 (6-26); Blood Urea Nitrogen 25 mg/dL (8-23); Calcium 8.7 mg/dL (8.6-10.3); Carbon Dioxide 30 mEq/L (23-29); Chloride 98 mEq/L (98-107); Glucose 187 mg/dL (70-105); Osmolality,Calculated 291 (280-300); Potassium 4.2 mEq/L (3.5-5.1); Sodium 136 mEq/L (136-145); eGFR For African Americans > 60 (> 60); eGFR For Non-African Americans > 60 (> 60)
[2019-04-14] MEDS: Furosemide 40 MG/4 ML VIAL IVP SCH (08:16)
[2019-04-14] MEDS: Insulin DETEMIR 100 UNIT/ML X5UNITS SQ SCH (08:16)
[2019-04-14] MEDS: Insulin LISPRO 300 UNITS/3 ML VIAL SQ SCH (08:16)
[2019-04-14] MEDS: Gabapentin 400 MG CAPSULE PO SCH (08:17)
[2019-04-14] MEDS: Cholecalciferol (D-3) 1,000 UNIT (25MCG) TABLET PO SCH (08:17)
[2019-04-14] MEDS: Nicotine 21 MG PATCH.TD24 TD SCH (08:17)
[2019-04-14] MEDS: Isosorbide MONOnitrate (24 HR) 60 MG TAB.ER.24H PO SCH (08:18)
[2019-04-14] MEDS: Metoprolol XL (24 HR) Succ 50 MG TAB.ER.24H PO SCH (08:18)
[2019-04-14] MEDS: ARIPiprazole 10 MG TABLET PO SCH (08:18)
[2019-04-14] MEDS: Aspirin 81 MG TAB.CHEW PO SCH (08:18)
== END 2019-04-14 10:29 | disposition home or self-care (01) ==
LOC: EMEROOARM 21:50 → 2ANU 21:50 → SUATTDRO 04-12 01:10 → 2ANU 04-12 01:47
PROVIDERS: ADMIT Internal Medicine Nephrology; ATTEND Family Medicine

== ENCOUNTER 2019-04-22 14:22 | Inpatient (IN) ==
[2019-04-22 15:20] LABS: VBG HCO3 29 mEq/L (21-27); VBG PCO2 49 mmHg (41-51); VBG PH 7.39 pH Units (7.32-7.42); VBG PO2 86 mmHg (25-50)
[2019-04-22 15:21] LABS: Basophils % 0.7 %; Hemoglobin 9.7 g/dL (11.5-15.4)
[2019-04-22 15:22] LABS: Basophils # 0.1 K/mcL (0.0-0.2); Eosinophils # 0.3 K/mcL (0.0-0.6); Eosinophils % 2.6 %; Hematocrit 34.1 % (35.3-44.9); Immature Granulocytes % 1.2 % (0-4); Lymphocytes # 2.9 K/mcL (0.6-4.6); Lymphocytes % 28.6 %; Mean Corpuscular HGB Conc 28.4 g/dL (31.6-35.5); Mean Corpuscular Volume 73.7 fL (83.0-100.0); Mean Platelet Volume 10.4 fL (9.4-12.4); Monocytes # 0.6 K/mcL (0.0-1.3); Neutrophils # 6.2 K/mcL (1.6-8.9); Nucleated Red Blood Cells 0.2 /100 WBC (0); Platelet Count 312 K/mcL (140-400); Red Blood Count 4.63 M/mcL (3.82-4.97); Red Cell Distribution Width 18.9 % (11.5-14.5); Segmented Neutrophils % 60.9 %; White Blood Count 10.2 K/mcL (4.3-11.1)
[2019-04-22 15:34] LABS: Hypochromasia Present (Not Present)
[2019-04-22 15:40] LABS: BUN/Creatinine Ratio 29 (6-26); Blood Urea Nitrogen 18 mg/dL (8-23); Calcium 8.8 mg/dL (8.6-10.3); Carbon Dioxide 27 mEq/L (23-29); Chloride 101 mEq/L (98-107); Glucose 129 mg/dL (70-105); Osmolality,Calculated 286 (280-300); Sodium 136 mEq/L (136-145); Troponin I < 0.03 ng/mL (< 0.04); eGFR For African Americans > 60 (> 60); eGFR For Non-African Americans > 60 (> 60)
[2019-04-22] MEDS ORDERED: Ipratropium/Albuterol Neb 3 ML IH ONE (16:01)
[2019-04-22] MEDS ORDERED: methylPREDNISolone 125 MG/2 ML VIAL IVP ONE (16:01)
[2019-04-22] MEDS ORDERED: Furosemide 40 MG/4 ML VIAL IVP ONE (18:32)
[2019-04-23] MEDS ORDERED: Naloxone 0.4 MG/ML INJ IVP PRN (01:45)
[2019-04-23] MEDS ORDERED: *HR* Dextrose 50 % in Water (Syg) 50 ML SYRINGE IVP PRN (01:54)
[2019-04-23] MEDS ORDERED: D5% in Water 1,000 ML IVC PRN (01:54)
[2019-04-23] MEDS ORDERED: Dextrose Gel 15 GM/37.5 ML TUBE PO PRN ×2 (01:54)
[2019-04-23] MEDS ORDERED: Albuterol 2.5 MG/3 ML NEBULIZER IH PRN (01:57)
[2019-04-23] MEDS ORDERED: Azithromycin 500 MG in 0.9 % Sodium Chloride 250 ML IVPB SCH (02:00)
[2019-04-23 03:21] LABS: Hematocrit 35.8 % (35.3-44.9); Hemoglobin 10.2 g/dL (11.5-15.4); Mean Corpuscular HGB Conc 28.5 g/dL (31.6-35.5); Mean Corpuscular Hemoglobin 20.8 pg (28.0-33.3); Mean Corpuscular Volume 73.1 fL (83.0-100.0); Mean Platelet Volume 10.2 fL (9.4-12.4); Platelet Count 308 K/mcL (140-400); White Blood Count 9.8 K/mcL (4.3-11.1)
[2019-04-23] MEDS: Ipratropium/Albuterol Neb 3 ML IH SCH ×4 (03:31→21:52)
[2019-04-23 03:39] LABS: BUN/Creatinine Ratio 30 (6-26); Blood Urea Nitrogen 18 mg/dL (8-23); Calcium 9.1 mg/dL (8.6-10.3); Carbon Dioxide 26 mEq/L (23-29); Chloride 102 mEq/L (98-107); Glucose 285 mg/dL (70-105); Osmolality,Calculated 294 (280-300); Potassium 3.9 mEq/L (3.5-5.1); Sodium 136 mEq/L (136-145); eGFR For African Americans > 60 (> 60); eGFR For Non-African Americans > 60 (> 60)
[2019-04-23] MEDS: Nicotine 21 MG PATCH.TD24 TD SCH (04:11)
[2019-04-23] MEDS ORDERED: MethylPREDNISolone 40 MG/ML VIAL IVP SCH (06:00)
[2019-04-23] MEDS: Aspirin 81 MG TAB.CHEW PO SCH (08:08)
[2019-04-23] MEDS: Gabapentin 400 MG CAPSULE PO SCH ×3 (08:08→20:07)
[2019-04-23] MEDS: Metoprolol XL (24 HR) Succ 50 MG TAB.ER.24H PO SCH (08:09)
[2019-04-23] MEDS: Insulin LISPRO 300 UNITS/3 ML VIAL SQ SCH ×3 (08:12→16:18)
[2019-04-23] MEDS ORDERED: BUPRENORPHINE 20 MCG/HR TD SCH (13:00)
[2019-04-23] MEDS: MethylPREDNISolone 40 MG/ML VIAL IVP SCH (15:21)
[2019-04-23] MEDS: *HR* Heparin 5,000 UNIT/ML VIAL SQ SCH (16:18)
[2019-04-23] MEDS ORDERED: Insulin LISPRO 300 UNITS/3 ML VIAL SQ SCH (21:00)
[2019-04-23] MEDS: Insulin DETEMIR 100 UNIT/ML X5UNITS SQ SCH (22:44)
[2019-04-24] MEDS: MethylPREDNISolone 40 MG/ML VIAL IVP SCH ×3 (01:04→17:23)
[2019-04-24] MEDS: Ipratropium/Albuterol Neb 3 ML IH SCH ×3 (04:00→15:53)
[2019-04-24] MEDS ORDERED: Acetaminophen 325 MG TABLET PO PRN (05:47)
[2019-04-24] MEDS: *HR* Heparin 5,000 UNIT/ML VIAL SQ SCH ×2 (05:53→17:26)
[2019-04-24] MEDS: Gabapentin 400 MG CAPSULE PO SCH ×3 (08:21→21:48)
[2019-04-24] MEDS: Azithromycin 250 MG TABLET PO SCH (08:21)
[2019-04-24] MEDS: Insulin DETEMIR 100 UNIT/ML X5UNITS SQ SCH ×2 (08:22→20:10)
[2019-04-24] MEDS: Aspirin 81 MG TAB.CHEW PO SCH (08:22)
[2019-04-24] MEDS: Metoprolol XL (24 HR) Succ 50 MG TAB.ER.24H PO SCH (08:22)
[2019-04-24] MEDS: Insulin LISPRO 300 UNITS/3 ML VIAL SQ SCH ×5 (08:23→20:12)
[2019-04-24] MEDS: Nicotine 21 MG PATCH.TD24 TD SCH (08:23)
[2019-04-24] MEDS: *HR* OxyCODONE Immed Rel 5 MG TABLET PO PRN ×2 (11:59→20:09)
[2019-04-24] MEDS: Benzonatate 100 MG CAPSULE PO PRN ×2 (11:59→17:22)
[2019-04-24] MEDS: Isosorbide MONOnitrate (24 HR) 30 MG TAB.ER.24H PO SCH (17:22)
[2019-04-24] MEDS ORDERED: Ipratropium/Albuterol Neb 3 ML IH PRN (20:07)
[2019-04-24] MEDS ORDERED: Insulin DETEMIR 100 UNIT/ML X5UNITS SQ ONE (22:16)
[2019-04-25] MEDS ORDERED: Insulin DETEMIR 100 UNIT/ML X5UNITS SQ ONE
[2019-04-25] MEDS: Acetaminophen 325 MG TABLET PO PRN ×4 (01:54→22:12)
[2019-04-25] MEDS: *HR* OxyCODONE Immed Rel 5 MG TABLET PO PRN ×3 (04:41→20:29)
[2019-04-25] MEDS: Benzonatate 100 MG CAPSULE PO PRN ×3 (04:51→22:11)
[2019-04-25] MEDS: *HR* Heparin 5,000 UNIT/ML VIAL SQ SCH ×4 (04:51→17:29)
[2019-04-25] MEDS: MethylPREDNISolone 40 MG/ML VIAL IVP SCH ×2 (04:56→17:10)
[2019-04-25] MEDS: Isosorbide MONOnitrate (24 HR) 30 MG TAB.ER.24H PO SCH (09:06)
[2019-04-25] MEDS: Gabapentin 400 MG CAPSULE PO SCH ×3 (09:06→20:29)
[2019-04-25] MEDS: Metoprolol XL (24 HR) Succ 50 MG TAB.ER.24H PO SCH (09:07)
[2019-04-25] MEDS: Aspirin 81 MG TAB.CHEW PO SCH (09:07)
[2019-04-25] MEDS: Azithromycin 250 MG TABLET PO SCH (09:07)
[2019-04-25] MEDS: Nicotine 21 MG PATCH.TD24 TD SCH (09:07)
[2019-04-25] MEDS: Insulin LISPRO 300 UNITS/3 ML VIAL SQ SCH ×4 (09:12→22:12)
[2019-04-25] MEDS: Insulin DETEMIR 100 UNIT/ML X5UNITS SQ SCH ×2 (09:20→22:12)
[2019-04-25] MEDS: Ipratropium/Albuterol Neb 3 ML IH SCH ×4 (11:01→23:56)
[2019-04-25] MEDS: Furosemide 40 MG TABLET PO SCH (11:46)
[2019-04-26] MEDS ORDERED: Ibuprofen 400 MG TABLET PO ONE (02:43)
[2019-04-26] MEDS: Ipratropium/Albuterol Neb 3 ML IH SCH ×2 (03:44→07:47)
[2019-04-26] MEDS: Benzonatate 100 MG CAPSULE PO PRN (04:40)
[2019-04-26] MEDS: *HR* OxyCODONE Immed Rel 5 MG TABLET PO PRN (04:40)
[2019-04-26] MEDS: MethylPREDNISolone 40 MG/ML VIAL IVP SCH (04:41)
[2019-04-26 04:53] LABS: Hematocrit 36.4 % (35.3-44.9)
[2019-04-26] MEDS: *HR* Heparin 5,000 UNIT/ML VIAL SQ SCH (04:53)
[2019-04-26 04:54] LABS: Hemoglobin 10.3 g/dL (11.5-15.4); Mean Corpuscular HGB Conc 28.3 g/dL (31.6-35.5); Mean Corpuscular Hemoglobin 20.9 pg (28.0-33.3); Mean Platelet Volume 10.3 fL (9.4-12.4); Platelet Count 295 K/mcL (140-400); Red Blood Count 4.92 M/mcL (3.82-4.97); Red Cell Distribution Width 18.5 % (11.5-14.5); White Blood Count 13.1 K/mcL (4.3-11.1)
[2019-04-26 07:48] VITALS: BP 180/89
[2019-04-26] MEDS: Insulin LISPRO 300 UNITS/3 ML VIAL SQ SCH (09:01)
[2019-04-26] MEDS: Isosorbide MONOnitrate (24 HR) 30 MG TAB.ER.24H PO SCH (09:02)
[2019-04-26] MEDS: Azithromycin 250 MG TABLET PO SCH (09:02)
[2019-04-26] MEDS: Gabapentin 400 MG CAPSULE PO SCH (09:02)
[2019-04-26] MEDS: Nicotine 21 MG PATCH.TD24 TD SCH (09:03)
[2019-04-26] MEDS: Aspirin 81 MG TAB.CHEW PO SCH (09:03)
[2019-04-26] MEDS: Furosemide 40 MG TABLET PO SCH (09:03)
[2019-04-26] MEDS: Metoprolol XL (24 HR) Succ 50 MG TAB.ER.24H PO SCH (09:03)
[2019-04-26] MEDS: Insulin DETEMIR 100 UNIT/ML X5UNITS SQ SCH (09:10)
[2019-04-30] MEDS ORDERED: BUPRENORPHINE 20 MCG/HR TP SCH (09:00)
== END 2019-04-26 10:20 | disposition home or self-care (01) | DRG 190 ==
LOC: EMEROOARM 14:22 → 2ANU 14:22 → SUATTDRO 20:11 → 2ANU 21:42 → SUATTDRO 04-24 18:09
PROVIDERS: ADMIT Family Medicine; ATTEND Family Medicine

== ENCOUNTER 2019-06-02 23:56 | Inpatient (IN) ==
[2019-06-03] MEDS ORDERED: Isovue-370 500 ML BOTTLE IVP ONE (00:19)
[2019-06-03] MEDS ORDERED: Metoclopramide 10 MG/2 ML VIAL IVP ONE (00:20)
[2019-06-03 01:09] LABS: Basophils # 0.1 K/mcL (0.0-0.2); Basophils % 0.8 %; Eosinophils # 0.2 K/mcL (0.0-0.6); Eosinophils % 2.4 %; Hematocrit 35.6 % (35.3-44.9); Hemoglobin 10.2 g/dL (11.5-15.4); Immature Granulocytes % 1.4 % (0-4); Mean Corpuscular HGB Conc 28.7 g/dL (31.6-35.5); Red Cell Distribution Width 20.5 % (11.5-14.5); White Blood Count 9.5 K/mcL (4.3-11.1)
[2019-06-03 01:10] LABS: Lymphocytes # 3.1 K/mcL (0.6-4.6); Lymphocytes % 32.1 %; Mean Corpuscular Volume 76.7 fL (83.0-100.0); Mean Platelet Volume 11.1 fL (9.4-12.4); Monocytes # 0.8 K/mcL (0.0-1.3); Monocytes % 8.2 %; Neutrophils # 5.2 K/mcL (1.6-8.9); Platelet Count 289 K/mcL (140-400); Red Blood Count 4.64 M/mcL (3.82-4.97); Segmented Neutrophils % 55.1 %
[2019-06-03 01:17] LABS: INR 0.8; Prothrombin Time 9.6 Seconds (9.4-12.1)
[2019-06-03 01:19] LABS: Activated Partial Thrombo Time 28.4 Seconds (26.0-36.0)
[2019-06-03 01:30] LABS: BUN/Creatinine Ratio 27 (6-26); Blood Urea Nitrogen 25 mg/dL (8-23); Calcium 8.6 mg/dL (8.6-10.3); Carbon Dioxide 19 mEq/L (23-29); Chloride 104 mEq/L (98-107); Glucose 265 mg/dL (70-105); Osmolality,Calculated 292 (280-300); Potassium 4.5 mEq/L (3.5-5.1); Sodium 134 mEq/L (136-145); Troponin I 0.03 ng/mL (< 0.04); eGFR For African Americans > 60 (> 60); eGFR For Non-African Americans > 60 (> 60)
[2019-06-03 01:50] LABS: Anisocytosis 1+ (Not Present); Platelet Estimate Normal (Normal)
[2019-06-03] MEDS ORDERED: levoFLOXacin 500 MG/100 ML 500 MG/100 ML BAG IVPB ONE (03:27)
[2019-06-03] MEDS ORDERED: Aspirin 81 MG TAB.CHEW PO STA (03:35)
[2019-06-03] MEDS ORDERED: Nitroglycerin 0.4 MG TAB.SUBL SL PRN (05:49)
[2019-06-03] MEDS: traMADol 50 MG TABLET PO PRN ×3 (06:10→20:34)
[2019-06-03] MEDS ORDERED: Morphine Sulfate 2 MG/ML SYRINGE IVP PRN (06:33)
[2019-06-03] MEDS ORDERED: Naloxone 0.4 MG/ML INJ IVP PRN (06:33)
[2019-06-03] MEDS ORDERED: D5% in Water 1,000 ML IVC PRN (06:44)
[2019-06-03] MEDS ORDERED: Dextrose Gel 15 GM/37.5 ML TUBE PO PRN ×2 (06:44)
[2019-06-03] MEDS ORDERED: *HR* Dextrose 50 % in Water (Syg) 50 ML SYRINGE IVP PRN (06:44)
[2019-06-03] MEDS ORDERED: Regadenoson 0.4 MG/5 ML SYRINGE IVP ONE (07:22)
[2019-06-03] MEDS: Budesonide/Formoterol 160/4.5 1 PUFF INH IH SCH ×2 (07:30→20:21)
[2019-06-03] MEDS: Tiotropium 18 MCG inhalation IH SCH (07:31)
[2019-06-03 07:40] LABS: Basophils # 0.1 K/mcL (0.0-0.2); Basophils % 0.8 %; Eosinophils # 0.2 K/mcL (0.0-0.6); Eosinophils % 1.7 %; Hematocrit 37.6 % (35.3-44.9); Hemoglobin 10.9 g/dL (11.5-15.4); Immature Granulocytes % 1.1 % (0-4); Lymphocytes # 2.8 K/mcL (0.6-4.6); Mean Corpuscular Hemoglobin 21.8 pg (28.0-33.3); Mean Corpuscular Volume 75.4 fL (83.0-100.0); Mean Platelet Volume 10.1 fL (9.4-12.4); Monocytes # 0.9 K/mcL (0.0-1.3); Neutrophils # 6.8 K/mcL (1.6-8.9); Platelet Count 290 K/mcL (140-400); Red Blood Count 4.99 M/mcL (3.82-4.97); Red Cell Distribution Width 20.6 % (11.5-14.5); Segmented Neutrophils % 62.4 %; White Blood Count 10.9 K/mcL (4.3-11.1)
[2019-06-03 07:55] LABS: % Iron Saturation 6 % (15-50); Alanine Aminotransferase 10 Units/L (7-52); Albumin 3.8 g/dL (3.5-5.7); Albumin/Globulin Ratio 1.3 (1.1-2.2); Alkaline Phosphatase 94 Units/L (34-104); Aspartate Amino Transferase 15 Units/L (13-39); BUN/Creatinine Ratio 33 (6-26); Bilirubin,Total 0.3 mg/dL (0.3-1.0); Blood Urea Nitrogen 21 mg/dL (8-23); Calcium 9.3 mg/dL (8.6-10.3); Carbon Dioxide 24 mEq/L (23-29); Chloride 107 mEq/L (98-107); Chol/HDL Ratio 3.6 (0-4.9); Cholesterol 213 mg/dL (< 200); Glucose 106 mg/dL (70-105); HDL Cholesterol 59 mg/dL (40-59); Iron 25 mcg/dL (50-170); LDL Cholesterol,Calculated 118 mg/dL (0-99); Magnesium 1.8 mg/dL (1.6-2.6); Osmolality,Calculated 289 (280-300); Phosphorous 3.9 mg/dL (2.7-4.5); Potassium 4.6 mEq/L (3.5-5.1); Sodium 138 mEq/L (136-145); Total Protein 6.8 g/dL (6.4-8.9); Transferrin 308 mg/dL (203-362); Triglycerides 182 mg/dL (< 150); eGFR For African Americans > 60 (> 60); eGFR For Non-African Americans > 60 (> 60)
[2019-06-03] MEDS: Insulin LISPRO 300 UNITS/3 ML VIAL SQ SCH ×4 (07:59→20:39)
[2019-06-03] MEDS: Isosorbide MONOnitrate (24 HR) 60 MG TAB.ER.24H PO SCH (08:01)
[2019-06-03] MEDS: Furosemide 40 MG TABLET PO SCH ×2 (08:01→17:19)
[2019-06-03] MEDS: ARIPiprazole 10 MG TABLET PO SCH (08:01)
[2019-06-03] MEDS: Aspirin 81 MG TAB.CHEW PO SCH (08:01)
[2019-06-03] MEDS: Gabapentin 300 MG CAPSULE PO SCH ×3 (08:01→20:34)
[2019-06-03 08:05] LABS: INR 0.9; Prothrombin Time 10.1 Seconds (9.4-12.1)
[2019-06-03 08:13] LABS: Ferritin 11 ng/mL (10-120)
[2019-06-03 08:17] LABS: Bilirubin,Urine Negative (Negative); Blood,Urine Trace (Negative); Clarity,Urine Clear (Clear); Color,Urine Yellow (Yellow); Glucose,Urine (UA) Normal (Normal); Ketones,Urine Negative (Negative); Leukocyte Esterase,Urine Negative (Negative); Nitrite,Urine Negative (Negative); PH,Urine 6.5 pH Units (5.0-8.0); Protein,Urine 100 mg/dL (Neg-Trace); Specific Gravity,Urine 1.026 (1.010-1.025); Urobilinogen,Urine Normal (Normal)
[2019-06-03] MEDS: Insulin DETEMIR 100 UNIT/ML X5UNITS SQ SCH (08:18)
[2019-06-03] MEDS: Metoprolol XL (24 HR) Succ 50 MG TAB.ER.24H PO SCH (08:19)
[2019-06-03 08:20] LABS: Bacteria,Urine None Seen per hpf (None-Few); Hyaline Casts,Urine None Seen per lpf (None-Few); RBC,Urine 0-3 per hpf (0-3); Squamous Epithelial Cell,Urine Moderate per lpf (None-Few); WBC,Urine 0-3 per hpf (0-3)
[2019-06-03] MEDS: levoFLOXacin 750 MG/150 ML 750 MG/150 ML BAG IVPB SCH (08:21)
[2019-06-03] MEDS ORDERED: *HR* Heparin 5,000 UNIT/ML VIAL IVP ONE (08:40)
[2019-06-03] MEDS ORDERED: *HR* Heparin 5,000 UNIT/ML VIAL IVP PRN ×2 (08:40)
[2019-06-03] MEDS ORDERED: D5% in 0.45% NACL 1,000 ML IVC SCH (09:00)
[2019-06-03] MEDS ORDERED: NON-FORMULARY MEDICATION 1 EACH EACH (Insulin Lispro [Humalog Kwikpen U-100] 0 UNIT) SQ SCH (09:00)
[2019-06-03 09:19] LABS: Amphetamine Screen,Urine Negative ng/mL (Cutoff=1000); Barbiturate Screen,Urine Negative ng/mL (Cutoff=200); Benzodiazepines Screen,Urine Negative ng/mL (Cutoff=200); Cannabinoid Screen,Urine Negative ng/mL (Cutoff = 50); Cocaine Screen,Urine Negative ng/mL (Cutoff= 300); Opiate Screen,Urine Negative ng/mL (Cutoff=300); Phencyclidine Screen,Urine Negative ng/mL (Cutoff=25)
[2019-06-03 09:29] LABS: Hematocrit 38.4 % (35.3-44.9); Hemoglobin 11.2 g/dL (11.5-15.4); Mean Corpuscular HGB Conc 29.2 g/dL (31.6-35.5); Mean Corpuscular Volume 75.4 fL (83.0-100.0); Mean Platelet Volume 10.5 fL (9.4-12.4); Platelet Count 304 K/mcL (140-400); Red Blood Count 5.09 M/mcL (3.82-4.97); Red Cell Distribution Width 20.5 % (11.5-14.5); White Blood Count 11.1 K/mcL (4.3-11.1)
[2019-06-03 09:36] LABS: Heparin anti-factor XA UFH 0.06 IU/mL (0.30-0.70); INR 0.9; Prothrombin Time 10.1 Seconds (9.4-12.1)
[2019-06-03] MEDS: Heparin 25,000 UNIT/250 ML D5W 25,000 UNIT/250 ML IV.SOLN IVC SCH (09:47)
[2019-06-03] MEDS: Baclofen 10 MG TABLET PO PRN ×2 (09:57→20:34)
[2019-06-03] MEDS: MetroNIDAZOLE 500 MG/100 ML 500 MG/100 ML BAG IVPB SCH ×3 (13:03→23:34)
[2019-06-03] MEDS ORDERED: *HR* Heparin 5,000 UNIT/ML VIAL SQ SCH (14:00)
[2019-06-03] MEDS: Nicotine 21 MG PATCH.TD24 TD SCH (15:00)
[2019-06-04 01:46] LABS: Basophils # 0.1 K/mcL (0.0-0.2); Basophils % 0.7 %; Eosinophils # 0.2 K/mcL (0.0-0.6); Eosinophils % 2.2 %; Hemoglobin 10.2 g/dL (11.5-15.4); Immature Granulocytes % 1.2 % (0-4); Lymphocytes % 32.6 %; Mean Corpuscular HGB Conc 29.1 g/dL (31.6-35.5); Mean Corpuscular Hemoglobin 22.1 pg (28.0-33.3); Mean Corpuscular Volume 75.9 fL (83.0-100.0); Monocytes # 0.8 K/mcL (0.0-1.3); Monocytes % 8.6 %; Platelet Count 258 K/mcL (140-400); Red Blood Count 4.61 M/mcL (3.82-4.97); Red Cell Distribution Width 20.6 % (11.5-14.5); Segmented Neutrophils % 54.7 %; White Blood Count 9.2 K/mcL (4.3-11.1)
[2019-06-04 02:04] LABS: BUN/Creatinine Ratio 33 (6-26); Blood Urea Nitrogen 21 mg/dL (8-23); Calcium 9.1 mg/dL (8.6-10.3); Carbon Dioxide 26 mEq/L (23-29); Chloride 107 mEq/L (98-107); Glucose 133 mg/dL (70-105); Magnesium 1.7 mg/dL (1.6-2.6); Osmolality,Calculated 287 (280-300); Phosphorous 4.3 mg/dL (2.7-4.5); Potassium 4.2 mEq/L (3.5-5.1); Sodium 136 mEq/L (136-145); eGFR For African Americans > 60 (> 60); eGFR For Non-African Americans > 60 (> 60)
[2019-06-04] MEDS: Heparin 25,000 UNIT/250 ML D5W 25,000 UNIT/250 ML IV.SOLN IVC SCH ×2 (02:10→22:22)
[2019-06-04] MEDS: MetroNIDAZOLE 500 MG/100 ML 500 MG/100 ML BAG IVPB SCH ×3 (05:53→23:32)
[2019-06-04] MEDS: Insulin LISPRO 300 UNITS/3 ML VIAL SQ SCH ×4 (07:18→22:21)
[2019-06-04] MEDS: Insulin DETEMIR 100 UNIT/ML X5UNITS SQ SCH ×2 (07:18→20:51)
[2019-06-04] MEDS: Tiotropium 18 MCG inhalation IH SCH (07:32)
[2019-06-04] MEDS: Budesonide/Formoterol 160/4.5 1 PUFF INH IH SCH ×2 (07:32→20:38)
[2019-06-04 09:06] LABS: Estimated Average Glucose 189 mg/dl
[2019-06-04] MEDS: traMADol 50 MG TABLET PO PRN ×2 (10:16→15:45)
[2019-06-04] MEDS: Furosemide 40 MG TABLET PO SCH ×2 (10:16→18:12)
[2019-06-04] MEDS: ARIPiprazole 10 MG TABLET PO SCH (10:16)
[2019-06-04] MEDS: Isosorbide MONOnitrate (24 HR) 60 MG TAB.ER.24H PO SCH (10:16)
[2019-06-04] MEDS: Nicotine 21 MG PATCH.TD24 TD SCH (10:17)
[2019-06-04] MEDS: Aspirin 81 MG TAB.CHEW PO SCH (10:17)
[2019-06-04] MEDS: Metoprolol XL (24 HR) Succ 50 MG TAB.ER.24H PO SCH (10:17)
[2019-06-04] MEDS: Gabapentin 300 MG CAPSULE PO SCH ×3 (10:17→20:51)
[2019-06-04] MEDS: levoFLOXacin 750 MG/150 ML 750 MG/150 ML BAG IVPB SCH (10:19)
[2019-06-04] MEDS: Baclofen 10 MG TABLET PO PRN (10:22)
[2019-06-04] MEDS ORDERED: *HR* Heparin 10,000 UNIT/10 ML VIAL ONE (13:52)
[2019-06-04] MEDS ORDERED: Nitroglycerin 1,000 MCG/10 ML VIAL IV ONE (13:53)
[2019-06-04] MEDS ORDERED: 0.9 % Sodium Chloride 2,000 ML ONE (13:53)
[2019-06-04] MEDS ORDERED: ISOVUE-370 200 ML INFUS..BTL ONE (13:53)
[2019-06-04] MEDS ORDERED: Heparin 1,000 UNITS/500 mL 500 ML ONE (13:53)
[2019-06-04] MEDS ORDERED: *HR* FentaNYL (PF) 100 MCG/2 ML VIAL ONE (14:28)
[2019-06-04] MEDS ORDERED: *HR* Midazolam HCl 2 MG/2 ML VIAL ONE (14:28)
[2019-06-04] MEDS ORDERED: Acetaminophen 325 MG TABLET PO PRN (15:14)
[2019-06-04] MEDS: Silvasorb 44.4 ML TUBE TP SCH (15:45)
[2019-06-04] MEDS ORDERED: Perflutren Lipid Microsphere 2 ML VIAL ONE (18:33)
[2019-06-04] MEDS ORDERED: Perflutren Lipid Microsphere 1.3 ML in 0.9 % Sodium Chloride 8.7 ML IVP ONE (19:20)
[2019-06-05 04:59] LABS: Hemoglobin 10.4 g/dL (11.5-15.4)
[2019-06-05 05:01] LABS: Basophils # 0.1 K/mcL (0.0-0.2); Basophils % 0.7 %; Eosinophils # 0.3 K/mcL (0.0-0.6); Eosinophils % 2.8 %; Hematocrit 36.1 % (35.3-44.9); Immature Granulocytes % 1.1 % (0-4); Lymphocytes % 29.4 %; Mean Corpuscular HGB Conc 28.8 g/dL (31.6-35.5); Mean Corpuscular Hemoglobin 21.7 pg (28.0-33.3); Mean Corpuscular Volume 75.4 fL (83.0-100.0); Mean Platelet Volume 10.4 fL (9.4-12.4); Monocytes # 0.9 K/mcL (0.0-1.3); Neutrophils # 5.7 K/mcL (1.6-8.9); Platelet Count 267 K/mcL (140-400); Red Blood Count 4.79 M/mcL (3.82-4.97); Red Cell Distribution Width 21.1 % (11.5-14.5)
[2019-06-05 05:05] LABS: Lymphocytes # 2.9 K/mcL (0.6-4.6)
[2019-06-05] MEDS: Baclofen 10 MG TABLET PO PRN (05:17)
[2019-06-05 05:20] LABS: BUN/Creatinine Ratio 34 (6-26); Blood Urea Nitrogen 31 mg/dL (8-23); Calcium 9.3 mg/dL (8.6-10.3); Carbon Dioxide 24 mEq/L (23-29); Chloride 101 mEq/L (98-107); Glucose 197 mg/dL (70-105); Magnesium 1.7 mg/dL (1.6-2.6); Osmolality,Calculated 288 (280-300); Phosphorous 6.2 mg/dL (2.7-4.5); Potassium 4.4 mEq/L (3.5-5.1); Sodium 133 mEq/L (136-145); eGFR For African Americans > 60 (> 60); eGFR For Non-African Americans > 60 (> 60)
[2019-06-05 05:57] LABS: Hypochromasia Present (Not Present); Platelet Estimate Normal (Normal)
[2019-06-05] MEDS ORDERED: *HR* Promethazine 25 MG/ML VIAL IVP ONE (06:23)
[2019-06-05] MEDS: Budesonide/Formoterol 160/4.5 1 PUFF INH IH SCH ×2 (07:15→19:49)
[2019-06-05] MEDS: Tiotropium 18 MCG inhalation IH SCH (07:16)
[2019-06-05] MEDS: Insulin LISPRO 300 UNITS/3 ML VIAL SQ SCH ×4 (08:20→20:34)
[2019-06-05] MEDS: Aspirin 81 MG TAB.CHEW PO SCH (08:21)
[2019-06-05] MEDS: MetroNIDAZOLE 500 MG/100 ML 500 MG/100 ML BAG IVPB SCH ×2 (08:21→10:49)
[2019-06-05] MEDS: Furosemide 40 MG TABLET PO SCH ×2 (08:21→17:36)
[2019-06-05] MEDS: Metoprolol XL (24 HR) Succ 50 MG TAB.ER.24H PO SCH (08:21)
[2019-06-05] MEDS: Gabapentin 300 MG CAPSULE PO SCH ×3 (08:21→20:29)
[2019-06-05] MEDS: Nicotine 21 MG PATCH.TD24 TD SCH (08:22)
[2019-06-05] MEDS: Isosorbide MONOnitrate (24 HR) 60 MG TAB.ER.24H PO SCH (08:22)
[2019-06-05] MEDS: ARIPiprazole 10 MG TABLET PO SCH (08:22)
[2019-06-05] MEDS: levoFLOXacin 750 MG/150 ML 750 MG/150 ML BAG IVPB SCH (08:22)
[2019-06-05] MEDS: Silvasorb 44.4 ML TUBE TP SCH (08:23)
[2019-06-05] MEDS: Insulin DETEMIR 100 UNIT/ML X5UNITS SQ SCH ×2 (08:36→20:34)
[2019-06-05] MEDS ORDERED: metroNIDAZOLE 500 MG TABLET PO SCH ×2 (10:51→15:00)
[2019-06-05] MEDS: traMADol 50 MG TABLET PO PRN ×2 (13:12→20:29)
[2019-06-05] MEDS: Piperacillin/Tazobactam 3.375 GM in 0.9 % Sodium Chloride Mini Bag 100 ML IVPB SCH ×2 (13:41→20:30)
[2019-06-05] MEDS: *HR* Heparin 5,000 UNIT/ML VIAL SQ SCH (17:36)
[2019-06-06] MEDS: Piperacillin/Tazobactam 3.375 GM in 0.9 % Sodium Chloride Mini Bag 100 ML IVPB SCH (03:42)
[2019-06-06] MEDS: Baclofen 10 MG TABLET PO PRN (05:48)
[2019-06-06] MEDS: *HR* Heparin 5,000 UNIT/ML VIAL SQ SCH ×2 (05:52→16:50)
[2019-06-06 06:09] LABS: Basophils % 0.9 %; Hemoglobin 9.5 g/dL (11.5-15.4); Mean Corpuscular Hemoglobin 22.2 pg (28.0-33.3); Red Blood Count 4.27 M/mcL (3.82-4.97)
[2019-06-06 06:10] LABS: Basophils # 0.1 K/mcL (0.0-0.2); Eosinophils # 0.3 K/mcL (0.0-0.6); Eosinophils % 3.8 %; Hematocrit 32.5 % (35.3-44.9); Immature Granulocytes % 1.6 % (0-4); Lymphocytes # 2.3 K/mcL (0.6-4.6); Lymphocytes % 28.5 %; Mean Corpuscular HGB Conc 29.2 g/dL (31.6-35.5); Mean Corpuscular Volume 76.1 fL (83.0-100.0); Mean Platelet Volume 11.1 fL (9.4-12.4); Monocytes # 0.7 K/mcL (0.0-1.3); Monocytes % 8.3 %; Platelet Count 232 K/mcL (140-400); Red Cell Distribution Width 20.9 % (11.5-14.5); Segmented Neutrophils % 56.9 %
[2019-06-06 06:19] LABS: Neutrophils # 4.6 K/mcL (1.6-8.9)
[2019-06-06 06:31] LABS: Hypochromasia Present (Not Present); Platelet Estimate Normal (Normal)
[2019-06-06 06:55] LABS: BUN/Creatinine Ratio 36 (6-26); Blood Urea Nitrogen 31 mg/dL (8-23); Calcium 8.7 mg/dL (8.6-10.3); Carbon Dioxide 23 mEq/L (23-29); Chloride 104 mEq/L (98-107); Glucose 160 mg/dL (70-105); Magnesium 1.7 mg/dL (1.6-2.6); Osmolality,Calculated 290 (280-300); Sodium 135 mEq/L (136-145); eGFR For African Americans > 60 (> 60); eGFR For Non-African Americans > 60 (> 60)
[2019-06-06] MEDS: Budesonide/Formoterol 160/4.5 1 PUFF INH IH SCH ×2 (07:43→19:49)
[2019-06-06] MEDS: Tiotropium 18 MCG inhalation IH SCH (07:43)
[2019-06-06] MEDS: Isosorbide MONOnitrate (24 HR) 60 MG TAB.ER.24H PO SCH (07:48)
[2019-06-06] MEDS: Furosemide 40 MG TABLET PO SCH ×2 (07:48→16:50)
[2019-06-06] MEDS: Gabapentin 300 MG CAPSULE PO SCH ×3 (07:48→20:04)
[2019-06-06] MEDS: Insulin LISPRO 300 UNITS/3 ML VIAL SQ SCH ×4 (07:48→20:05)
[2019-06-06] MEDS: ARIPiprazole 10 MG TABLET PO SCH (07:48)
[2019-06-06] MEDS: Insulin DETEMIR 100 UNIT/ML X5UNITS SQ SCH ×2 (07:48→20:04)
[2019-06-06] MEDS: Nicotine 21 MG PATCH.TD24 TD SCH (07:48)
[2019-06-06] MEDS: Metoprolol XL (24 HR) Succ 50 MG TAB.ER.24H PO SCH (07:49)
[2019-06-06] MEDS: Silvasorb 44.4 ML TUBE TP SCH (07:49)
[2019-06-06] MEDS: Aspirin 81 MG TAB.CHEW PO SCH (07:49)
[2019-06-06] MEDS ORDERED: levoFLOXacin 750 MG TABLET PO SCH (09:00)
[2019-06-06] MEDS ORDERED: Aminoglycoside Consult 1 EACH MC ONE (10:30)
[2019-06-06] MEDS ORDERED: Ondansetron 4 MG/2 ML VIAL IVP ONE (11:30)
[2019-06-06] MEDS: Ondansetron 4 MG/2 ML VIAL IVP PRN ×2 (12:04→20:16)
[2019-06-07] MEDS: *HR* Heparin 5,000 UNIT/ML VIAL SQ SCH (06:04)
[2019-06-07 06:06] LABS: Hemoglobin 9.1 g/dL (11.5-15.4)
[2019-06-07 07:46] VITALS: BP 118/74
[2019-06-07] MEDS: Isosorbide MONOnitrate (24 HR) 60 MG TAB.ER.24H PO SCH (08:49)
[2019-06-07] MEDS: Furosemide 40 MG TABLET PO SCH (08:50)
[2019-06-07] MEDS: Nicotine 21 MG PATCH.TD24 TD SCH (08:50)
[2019-06-07] MEDS: ARIPiprazole 10 MG TABLET PO SCH (08:50)
[2019-06-07] MEDS: Aspirin 81 MG TAB.CHEW PO SCH (08:50)
[2019-06-07] MEDS: Insulin LISPRO 300 UNITS/3 ML VIAL SQ SCH (08:50)
[2019-06-07] MEDS: Metoprolol XL (24 HR) Succ 50 MG TAB.ER.24H PO SCH (08:50)
[2019-06-07] MEDS: Gabapentin 300 MG CAPSULE PO SCH (08:50)
[2019-06-07] MEDS: Silvasorb 44.4 ML TUBE TP SCH (08:51)
[2019-06-07] MEDS: Insulin DETEMIR 100 UNIT/ML X5UNITS SQ SCH (08:59)
[2019-06-07] MEDS: Tiotropium 18 MCG inhalation IH SCH (10:31)
[2019-06-07] MEDS: Budesonide/Formoterol 160/4.5 1 PUFF INH IH SCH (10:31)
== END 2019-06-07 10:31 | disposition home or self-care (01) | DRG 280 ==
LOC: 2ANU 23:56 → EMEROOARM 23:56 → SUATTDRO 06-03 04:19 → 2ANU 06-03 05:05
PROVIDERS: ADMIT Internal Medicine; ATTEND Family Medicine

== ENCOUNTER 2019-07-23 03:24 | Observation (INO) ==
[2019-07-23] MEDS ORDERED: Aspirin 325 MG TABLET PO ONE (03:58)
[2019-07-23 04:07] LABS: Basophils # 0.1 K/mcL (0.0-0.2); Basophils % 0.8 %; Eosinophils # 0.3 K/mcL (0.0-0.6); Eosinophils % 1.9 %; Hematocrit 35.8 % (35.3-44.9); Hemoglobin 10.5 g/dL (11.5-15.4); Immature Granulocytes % 1.4 % (0-4); Lymphocytes # 2.7 K/mcL (0.6-4.6); Lymphocytes % 18.7 %; Mean Corpuscular HGB Conc 29.3 g/dL (31.6-35.5); Mean Corpuscular Hemoglobin 22.1 pg (28.0-33.3); Mean Corpuscular Volume 75.4 fL (83.0-100.0); Mean Platelet Volume 10.5 fL (9.4-12.4); Monocytes # 0.9 K/mcL (0.0-1.3); Neutrophils # 10.2 K/mcL (1.6-8.9); Nucleated Red Blood Cells 0.3 /100 WBC (0); Platelet Count 333 K/mcL (140-400); Red Blood Count 4.75 M/mcL (3.82-4.97); Red Cell Distribution Width 19.3 % (11.5-14.5); Segmented Neutrophils % 71.2 %; White Blood Count 14.3 K/mcL (4.3-11.1)
[2019-07-23 04:35] LABS: Alanine Aminotransferase 11 Units/L (7-52); Albumin 3.6 g/dL (3.5-5.7); Alkaline Phosphatase 130 Units/L (34-104); Aspartate Amino Transferase 11 Units/L (13-39); BUN/Creatinine Ratio 19 (6-26); Bilirubin,Total 0.3 mg/dL (0.3-1.0); Blood Urea Nitrogen 14 mg/dL (8-23); Carbon Dioxide 27 mEq/L (23-29); Chloride 102 mEq/L (98-107); Globulin 3.7 g/dL (2.4-3.5); Glucose 63 mg/dL (70-105); Osmolality,Calculated 281 (280-300); Potassium 4.1 mEq/L (3.5-5.1); Sodium 136 mEq/L (136-145); Total Protein 7.3 g/dL (6.4-8.9); eGFR For African Americans > 60 (> 60); eGFR For Non-African Americans > 60 (> 60)
[2019-07-23 04:45] LABS: Troponin I < 0.03 ng/mL (< 0.04)
[2019-07-23] MEDS ORDERED: Pantoprazole 40 MG VIAL IVP ONE (05:17)
[2019-07-23] MEDS ORDERED: Morphine Sulfate 2 MG/ML SYRINGE IVP ONE (05:17)
[2019-07-23] MEDS ORDERED: Water for inj. (sterile) 10 ML ONE (05:22)
[2019-07-23] MEDS ORDERED: Furosemide 20 MG/2 ML VIAL IVP ONE (05:25)
[2019-07-23] MEDS ORDERED: Ondansetron 4 MG/2 ML VIAL IVP PRN (08:00)
[2019-07-23] MEDS ORDERED: Naloxone 0.4 MG/ML INJ IVP PRN (08:00)
[2019-07-23] MEDS ORDERED: Nitroglycerin 0.4 MG TAB.SUBL SL PRN (08:04)
[2019-07-23] MEDS ORDERED: D5% in Water 1,000 ML IVC PRN (08:09)
[2019-07-23] MEDS ORDERED: *HR* Dextrose 50 % in Water (Syg) 50 ML SYRINGE IVP PRN (08:09)
[2019-07-23] MEDS ORDERED: Dextrose Gel 15 GM/37.5 ML TUBE PO PRN ×2 (08:09)
[2019-07-23] MEDS ORDERED: BUPRENORPHINE TP SCH (08:15)
[2019-07-23] MEDS ORDERED: Metoprolol XL (24 HR) Succ 50 MG TAB.ER.24H PO SCH (09:00)
[2019-07-23] MEDS: Baclofen 10 MG TABLET PO SCH ×3 (09:22→21:29)
[2019-07-23] MEDS: ARIPiprazole 10 MG TABLET PO SCH (09:22)
[2019-07-23] MEDS: Nicotine 14 MG PATCH.TD24 TD SCH (09:23)
[2019-07-23] MEDS: Isosorbide MONOnitrate (24 HR) 60 MG TAB.ER.24H PO SCH (09:35)
[2019-07-23] MEDS: Gabapentin 400 MG CAPSULE PO SCH ×3 (09:36→21:29)
[2019-07-23] MEDS: Fenofibrate 54 MG TABLET PO SCH (09:36)
[2019-07-23] MEDS: Furosemide 40 MG/4 ML VIAL IVP SCH ×2 (09:38→21:29)
[2019-07-23] MEDS: Budesonide/Formoterol 160/4.5 1 PUFF INH IH SCH ×2 (11:35→20:19)
[2019-07-23] MEDS: Insulin LISPRO 300 UNITS/3 ML VIAL SQ SCH ×2 (13:27→17:34)
[2019-07-23] MEDS: *HR* Heparin 5,000 UNIT/ML VIAL SQ SCH ×2 (13:50→21:29)
[2019-07-24 05:10] LABS: Eosinophils # 0.2 K/mcL (0.0-0.6); Eosinophils % 2.4 %; White Blood Count 8.9 K/mcL (4.3-11.1)
[2019-07-24 05:12] LABS: Basophils # 0.1 K/mcL (0.0-0.2); Hematocrit 34.1 % (35.3-44.9); Hemoglobin 9.9 g/dL (11.5-15.4); Immature Granulocytes % 1.1 % (0-4); Lymphocytes # 2.5 K/mcL (0.6-4.6); Lymphocytes % 27.8 %; Mean Corpuscular Volume 75.9 fL (83.0-100.0); Monocytes % 8.4 %; Neutrophils # 5.3 K/mcL (1.6-8.9); Nucleated Red Blood Cells 0.3 /100 WBC (0); Platelet Count 281 K/mcL (140-400); Red Blood Count 4.49 M/mcL (3.82-4.97); Red Cell Distribution Width 19.2 % (11.5-14.5); Segmented Neutrophils % 59.3 %
[2019-07-24 05:18] LABS: Monocytes # 0.8 K/mcL (0.0-1.3)
[2019-07-24 05:33] LABS: Alanine Aminotransferase 8 Units/L (7-52); Albumin 3.2 g/dL (3.5-5.7); Alkaline Phosphatase 114 Units/L (34-104); Aspartate Amino Transferase 8 Units/L (13-39); BUN/Creatinine Ratio 33 (6-26); Bilirubin,Total 0.3 mg/dL (0.3-1.0); Blood Urea Nitrogen 18 mg/dL (8-23); Calcium 8.8 mg/dL (8.6-10.3); Carbon Dioxide 28 mEq/L (23-29); Chloride 104 mEq/L (98-107); Globulin 3.3 g/dL (2.4-3.5); Glucose 153 mg/dL (70-105); Osmolality,Calculated 295 (280-300); Potassium 4.1 mEq/L (3.5-5.1); Sodium 140 mEq/L (136-145); Total Protein 6.5 g/dL (6.4-8.9); eGFR For African Americans > 60 (> 60); eGFR For Non-African Americans > 60 (> 60)
[2019-07-24] MEDS: *HR* Heparin 5,000 UNIT/ML VIAL SQ SCH ×3 (05:33→23:05)
[2019-07-24 05:45] LABS: Polychromasia 1+ (Not Present)
[2019-07-24 05:46] LABS: Platelet Estimate Normal (Normal)
[2019-07-24] MEDS: Budesonide/Formoterol 160/4.5 1 PUFF INH IH SCH ×2 (07:57→20:20)
[2019-07-24] MEDS: Isosorbide MONOnitrate (24 HR) 60 MG TAB.ER.24H PO SCH (08:19)
[2019-07-24] MEDS: ARIPiprazole 10 MG TABLET PO SCH (08:21)
[2019-07-24] MEDS: Fenofibrate 54 MG TABLET PO SCH (08:21)
[2019-07-24] MEDS: Aspirin 81 MG TAB.CHEW PO SCH (08:22)
[2019-07-24] MEDS: Baclofen 10 MG TABLET PO SCH ×3 (08:23→23:05)
[2019-07-24] MEDS: Gabapentin 400 MG CAPSULE PO SCH ×3 (08:28→23:05)
[2019-07-24] MEDS: Nicotine 14 MG PATCH.TD24 TD SCH (08:33)
[2019-07-24] MEDS: Furosemide 40 MG/4 ML VIAL IVP SCH ×2 (08:33→23:05)
[2019-07-24] MEDS: Insulin LISPRO 300 UNITS/3 ML VIAL SQ SCH ×3 (08:36→16:41)
[2019-07-24] MEDS ORDERED: D5% in 0.9% NACL 1,000 ML IVC SCH (13:00)
[2019-07-24] MEDS: Ipratropium/Albuterol Neb 3 ML IH PRN (20:20)
[2019-07-24] MEDS: Ranolazine 500 MG TAB.ER.12H PO SCH (23:05)
[2019-07-25] MEDS: Ipratropium/Albuterol Neb 3 ML IH PRN (01:27)
[2019-07-25 04:46] LABS: Hematocrit 32.2 % (35.3-44.9); Hemoglobin 9.3 g/dL (11.5-15.4); Mean Corpuscular HGB Conc 28.9 g/dL (31.6-35.5); Mean Corpuscular Hemoglobin 21.8 pg (28.0-33.3); Mean Corpuscular Volume 75.6 fL (83.0-100.0); Platelet Count 270 K/mcL (140-400); Red Blood Count 4.26 M/mcL (3.82-4.97); Red Cell Distribution Width 19.1 % (11.5-14.5); White Blood Count 8.1 K/mcL (4.3-11.1)
[2019-07-25] MEDS: Ipratropium/Albuterol Neb 3 ML IH SCH ×2 (04:47→11:10)
[2019-07-25 05:08] LABS: BUN/Creatinine Ratio 34 (6-26); Blood Urea Nitrogen 19 mg/dL (8-23); Calcium 8.7 mg/dL (8.6-10.3); Carbon Dioxide 28 mEq/L (23-29); Chloride 102 mEq/L (98-107); Glucose 165 mg/dL (70-105); Osmolality,Calculated 292 (280-300); Potassium 4.1 mEq/L (3.5-5.1); Sodium 138 mEq/L (136-145); eGFR For African Americans > 60 (> 60); eGFR For Non-African Americans > 60 (> 60)
[2019-07-25] MEDS: Gabapentin 400 MG CAPSULE PO SCH (05:09)
[2019-07-25] MEDS: *HR* Heparin 5,000 UNIT/ML VIAL SQ SCH (05:10)
[2019-07-25] MEDS: Nicotine 14 MG PATCH.TD24 TD SCH (08:39)
[2019-07-25] MEDS: Isosorbide MONOnitrate (24 HR) 60 MG TAB.ER.24H PO SCH (08:40)
[2019-07-25] MEDS: Fenofibrate 54 MG TABLET PO SCH (08:40)
[2019-07-25] MEDS: Ranolazine 500 MG TAB.ER.12H PO SCH (08:41)
[2019-07-25] MEDS: ARIPiprazole 10 MG TABLET PO SCH (08:41)
[2019-07-25] MEDS: Aspirin 81 MG TAB.CHEW PO SCH (08:42)
[2019-07-25] MEDS: Baclofen 10 MG TABLET PO SCH (08:42)
[2019-07-25] MEDS: Furosemide 40 MG/4 ML VIAL IVP SCH (08:42)
[2019-07-25] MEDS: Insulin LISPRO 300 UNITS/3 ML VIAL SQ SCH ×2 (08:43→11:56)
[2019-07-25 11:08] VITALS: BP 121/71
[2019-07-25] MEDS: Budesonide/Formoterol 160/4.5 1 PUFF INH IH SCH (11:10)
[2019-07-25] MEDS ORDERED: Insulin LISPRO 300 UNITS/3 ML VIAL SQ ONE (22:57)
== END 2019-07-25 14:20 | disposition home or self-care (01) ==
LOC: EMEROOARM 03:24 → 3NENU 03:24 → SUATTDRO 05:51 → 3NENU 06:11
PROVIDERS: ADMIT Internal Medicine; ATTEND Internal Medicine

== ENCOUNTER 2019-08-09 09:21 | Inpatient (IN) ==
[2019-08-09] MEDS ORDERED: methylPREDNISolone 125 MG/2 ML VIAL IVP ONE (09:39)
[2019-08-09] MEDS ORDERED: Ipratropium/Albuterol Neb 3 ML IH ONE (09:39)
[2019-08-09 10:57] LABS: Mean Platelet Volume 10.8 fL (9.4-12.4); Nucleated Red Blood Cells 0.3 /100 WBC (0)
[2019-08-09 10:58] LABS: Hematocrit 35.1 % (35.3-44.9); Hemoglobin 10.3 g/dL (11.5-15.4); Mean Corpuscular HGB Conc 29.3 g/dL (31.6-35.5); Mean Corpuscular Hemoglobin 21.9 pg (28.0-33.3); Mean Corpuscular Volume 74.5 fL (83.0-100.0); Platelet Count 358 K/mcL (140-400); Red Blood Count 4.71 M/mcL (3.82-4.97); White Blood Count 15.1 K/mcL (4.3-11.1)
[2019-08-09 11:05] LABS: INR 0.9; Prothrombin Time 10.6 Seconds (9.4-12.1)
[2019-08-09 11:24] LABS: Troponin I 0.04 ng/mL (< 0.04)
[2019-08-09 11:26] LABS: Alanine Aminotransferase 10 Units/L (7-52); Albumin 3.3 g/dL (3.5-5.7); Albumin/Globulin Ratio 0.9 (1.1-2.2); Alkaline Phosphatase 100 Units/L (34-104); Aspartate Amino Transferase 9 Units/L (13-39); BUN/Creatinine Ratio 25 (6-26); Bilirubin,Indirect 0.3 mg/dL (0.0-1.0); Bilirubin,Total 0.3 mg/dL (0.3-1.0); Blood Urea Nitrogen 15 mg/dL (8-23); Carbon Dioxide 27 mEq/L (23-29); Chloride 105 mEq/L (98-107); Globulin 3.5 g/dL (2.4-3.5); Glucose 114 mg/dL (70-105); Osmolality,Calculated 286 (280-300); Potassium 4.5 mEq/L (3.5-5.1); Sodium 137 mEq/L (136-145); Total Protein 6.8 g/dL (6.4-8.9); eGFR For African Americans > 60 (> 60); eGFR For Non-African Americans > 60 (> 60)
[2019-08-09 11:28] LABS: Anisocytosis 2+ (Not Present); Basophils # 0.3 K/mcL (0.0-0.2); Lymphocytes # 4.2 K/mcL (0.6-4.6); Monocytes # 0.3 K/mcL (0.0-1.3); Neutrophils # 10.3 K/mcL (1.6-8.9); Platelet Estimate Normal (Normal); Reactive Lymphocytes Present (Not Present)
[2019-08-09 11:29] LABS: Hypochromasia Present (Not Present); Polychromasia 1+ (Not Present)
[2019-08-09] MEDS ORDERED: Furosemide 80 MG in 0.9 % Sodium Chloride 50 ML IV ONE (11:40)
[2019-08-09] MEDS ORDERED: Aspirin 325 MG TABLET PO ONE (11:50)
[2019-08-09] MEDS ORDERED: Ondansetron 4 MG/2 ML VIAL IVP PRN (13:20)
[2019-08-09] MEDS ORDERED: Naloxone 0.4 MG/ML INJ IVP PRN (13:20)
[2019-08-09] MEDS ORDERED: Nitroglycerin 0.4 MG TAB.SUBL SL PRN (13:25)
[2019-08-09] MEDS ORDERED: *HR* Dextrose 50 % in Water (Syg) 50 ML SYRINGE IVP PRN (13:44)
[2019-08-09] MEDS ORDERED: D5% in Water 1,000 ML IVC PRN (13:44)
[2019-08-09] MEDS ORDERED: Dextrose Gel 15 GM/37.5 ML TUBE PO PRN ×2 (13:44)
[2019-08-09] MEDS ORDERED: Azithromycin 500 MG in D5% in Water 250 ML IVPB SCH (14:00)
[2019-08-09 14:47] LABS: Magnesium 1.8 mg/dL (1.6-2.6)
[2019-08-09 14:59] LABS: Bilirubin,Urine Negative (Negative); Blood,Urine Negative (Negative); Clarity,Urine Clear (Clear); Color,Urine Yellow (Yellow); Glucose,Urine (UA) Normal (Normal); Ketones,Urine Negative (Negative); Leukocyte Esterase,Urine Negative (Negative); Nitrite,Urine Positive (Negative); PH,Urine 6.5 pH Units (5.0-8.0); Protein,Urine 100 mg/dL (Neg-Trace); Urobilinogen,Urine Normal (Normal)
[2019-08-09 15:01] LABS: Bacteria,Urine Many per hpf (None-Few); Hyaline Casts,Urine None Seen per lpf (None-Few); RBC,Urine 0-3 per hpf (0-3); Squamous Epithelial Cell,Urine Moderate per lpf (None-Few); WBC,Urine 0-3 per hpf (0-3)
[2019-08-09 15:30] LABS: Estimated Average Glucose 186 mg/dl
[2019-08-09] MEDS: Insulin LISPRO 300 UNITS/3 ML VIAL SQ SCH ×2 (15:56→21:54)
[2019-08-09] MEDS: Gabapentin 400 MG CAPSULE PO SCH ×2 (16:09→20:25)
[2019-08-09] MEDS: *HR* Heparin 5,000 UNIT/ML VIAL SQ SCH (18:01)
[2019-08-09] MEDS: Furosemide 40 MG/4 ML VIAL IVP SCH (18:11)
[2019-08-09] MEDS: Ipratropium/Albuterol Neb 3 ML IH SCH ×3 (19:41→22:57)
[2019-08-09] MEDS: ARIPiprazole 10 MG TABLET PO SCH (20:24)
[2019-08-09] MEDS: Ranolazine 500 MG TAB.ER.12H PO SCH (20:25)
[2019-08-09] MEDS ORDERED: Insulin DETEMIR 100 UNIT/ML X5UNITS SQ SCH (21:00)
[2019-08-10] MEDS: Ipratropium/Albuterol Neb 3 ML IH SCH ×4 (04:03→21:24)
[2019-08-10] MEDS: *HR* Heparin 5,000 UNIT/ML VIAL SQ SCH ×2 (05:10→17:55)
[2019-08-10] MEDS ORDERED: Acetaminophen 325 MG TABLET PO ONE (05:14)
[2019-08-10 06:29] LABS: Basophils # 0.1 K/mcL (0.0-0.2); Basophils % 0.7 %; Eosinophils % 0.4 %; Hematocrit 32.5 % (35.3-44.9); Hemoglobin 9.5 g/dL (11.5-15.4); Immature Granulocytes % 1.1 % (0-4); Lymphocytes # 2.6 K/mcL (0.6-4.6); Lymphocytes % 23.9 %; Mean Corpuscular HGB Conc 29.2 g/dL (31.6-35.5); Mean Corpuscular Hemoglobin 21.7 pg (28.0-33.3); Mean Corpuscular Volume 74.2 fL (83.0-100.0); Mean Platelet Volume 10.8 fL (9.4-12.4); Monocytes # 0.9 K/mcL (0.0-1.3); Neutrophils # 7.2 K/mcL (1.6-8.9); Nucleated Red Blood Cells 0.2 /100 WBC (0); Platelet Count 281 K/mcL (140-400); Red Blood Count 4.38 M/mcL (3.82-4.97); Red Cell Distribution Width 18.6 % (11.5-14.5); Segmented Neutrophils % 65.9 %
[2019-08-10 06:48] LABS: BUN/Creatinine Ratio 31 (6-26); Blood Urea Nitrogen 21 mg/dL (8-23); Calcium 8.8 mg/dL (8.6-10.3); Carbon Dioxide 27 mEq/L (23-29); Chloride 101 mEq/L (98-107); Glucose 247 mg/dL (70-105); Osmolality,Calculated 293 (280-300); Potassium 3.9 mEq/L (3.5-5.1); Sodium 136 mEq/L (136-145); eGFR For African Americans > 60 (> 60); eGFR For Non-African Americans > 60 (> 60)
[2019-08-10 09:36] LABS: ABG Base Excess 5 mEq/L (-2 to 3); ABG HCO3 30 mEq/L (21-27); ABG Oxygen Saturation 92 % (95-98); ABG PCO2 44 mmHg (35-45); ABG PH 7.44 pH Units (7.32-7.45); ABG PO2 61 mmHg (85-104); ABG TCO2 31 mEq/L (20-26)
[2019-08-10] MEDS: Insulin LISPRO 300 UNITS/3 ML VIAL SQ SCH ×4 (09:40→21:12)
[2019-08-10] MEDS: Furosemide 40 MG/4 ML VIAL IVP SCH ×2 (09:41→17:13)
[2019-08-10] MEDS: Aspirin Enteric Coated 81 MG Tablet PO SCH (09:41)
[2019-08-10] MEDS: Isosorbide MONOnitrate (24 HR) 60 MG TAB.ER.24H PO SCH (09:42)
[2019-08-10] MEDS: Insulin DETEMIR 100 UNIT/ML X5UNITS SQ SCH ×2 (09:43→21:12)
[2019-08-10] MEDS: Gabapentin 400 MG CAPSULE PO SCH ×3 (09:43→21:11)
[2019-08-10] MEDS: Fenofibrate 54 MG TABLET PO SCH (09:44)
[2019-08-10] MEDS: predniSONE 20 MG TABLET PO SCH (09:44)
[2019-08-10] MEDS: Ranolazine 500 MG TAB.ER.12H PO SCH ×2 (09:45→21:11)
[2019-08-10] MEDS: Metoprolol XL (24 HR) Succ 50 MG TAB.ER.24H PO SCH (09:45)
[2019-08-10 13:42] LABS: Adenovirus Not Detected (Not Detect); Bordetella Pertussis Not Detected (Not Detect); Chlamydophila pneumoniae Not Detected (Not Detect); Coronavirus 229E Not Detected (Not Detect); Coronavirus HKU1 Not Detected (Not Detect); Coronavirus NL63 Not Detected (Not Detect); Coronavirus OC43 Not Detected (Not Detect); Human Metapneumovirus Not Detected (Not Detect); Human Rhinovirus/Enterovirus Not Detected (Not Detect); Influenza A Subtype 2009 H1 Not Detected (Not Detect); Influenza A Untypeable Not Detected (Not Detect); Influenza B Not Detected (Not Detect); Mycoplasma pneumoniae Not Detected (Not Detect); Parainfluenza Virus 1 Not Detected (Not Detect); Parainfluenza Virus 2 Not Detected (Not Detect); Parainfluenza Virus 3 Not Detected (Not Detect); Parainfluenza Virus 4 Not Detected (Not Detect); Respiratory Syncytial Virus Not Detected (Not Detect)
[2019-08-10] MEDS ORDERED: levoFLOXacin 750 MG TABLET PO SCH (15:28)
[2019-08-10] MEDS: ARIPiprazole 10 MG TABLET PO SCH (21:11)
[2019-08-10] MEDS: Baclofen 10 MG TABLET PO SCH (21:11)
[2019-08-10] MEDS: Budesonide/Formoterol 160/4.5 1 PUFF INH IH SCH (21:24)
[2019-08-11] MEDS ORDERED: *HR* OxyCODONE Immed Rel 5 MG TABLET PO ONE (01:29)
[2019-08-11] MEDS: Ipratropium/Albuterol Neb 3 ML IH SCH ×4 (04:15→22:04)
[2019-08-11] MEDS: *HR* Heparin 5,000 UNIT/ML VIAL SQ SCH ×2 (06:04→16:36)
[2019-08-11] MEDS: Baclofen 10 MG TABLET PO SCH ×3 (08:19→20:30)
[2019-08-11] MEDS: Aspirin Enteric Coated 81 MG Tablet PO SCH (08:19)
[2019-08-11] MEDS: Fenofibrate 54 MG TABLET PO SCH (08:19)
[2019-08-11] MEDS: Insulin LISPRO 300 UNITS/3 ML VIAL SQ SCH ×4 (08:20→20:36)
[2019-08-11] MEDS: Isosorbide MONOnitrate (24 HR) 60 MG TAB.ER.24H PO SCH (08:20)
[2019-08-11] MEDS: Metoprolol XL (24 HR) Succ 50 MG TAB.ER.24H PO SCH (08:20)
[2019-08-11] MEDS: Gabapentin 400 MG CAPSULE PO SCH ×3 (08:20→20:30)
[2019-08-11] MEDS: Ranolazine 500 MG TAB.ER.12H PO SCH ×2 (08:20→20:35)
[2019-08-11] MEDS: predniSONE 20 MG TABLET PO SCH (08:20)
[2019-08-11] MEDS: Furosemide 40 MG/4 ML VIAL IVP SCH ×2 (08:20→16:36)
[2019-08-11] MEDS: Insulin DETEMIR 100 UNIT/ML X5UNITS SQ SCH (08:29)
[2019-08-11] MEDS: Budesonide/Formoterol 160/4.5 1 PUFF INH IH SCH ×2 (09:28→22:04)
[2019-08-11 14:16] LABS: BUN/Creatinine Ratio 39 (6-26); Blood Urea Nitrogen 30 mg/dL (8-23); Calcium 8.8 mg/dL (8.6-10.3); Carbon Dioxide 25 mEq/L (23-29); Chloride 100 mEq/L (98-107); Glucose 330 mg/dL (70-105); Osmolality,Calculated 295 (280-300); Sodium 133 mEq/L (136-145); eGFR For African Americans > 60 (> 60); eGFR For Non-African Americans > 60 (> 60)
[2019-08-11] MEDS: Nitrofurantoin (BID) 100 MG CAPSULE PO SCH (16:36)
[2019-08-11] MEDS ORDERED: Insulin LISPRO 300 UNITS/3 ML VIAL SQ SCH (17:00)
[2019-08-11] MEDS: ARIPiprazole 10 MG TABLET PO SCH (20:30)
[2019-08-11] MEDS ORDERED: Insulin DETEMIR 100 UNIT/ML X5UNITS SQ SCH (21:00)
[2019-08-12] MEDS: Ipratropium/Albuterol Neb 3 ML IH SCH ×4 (03:21→21:50)
[2019-08-12 05:02] LABS: BUN/Creatinine Ratio 48 (6-26); Blood Urea Nitrogen 31 mg/dL (8-23); Calcium 9.2 mg/dL (8.6-10.3); Carbon Dioxide 29 mEq/L (23-29); Chloride 102 mEq/L (98-107); Glucose 226 mg/dL (70-105); Osmolality,Calculated 296 (280-300); Phosphorous 3.5 mg/dL (2.7-4.5); Potassium 4.1 mEq/L (3.5-5.1); Sodium 136 mEq/L (136-145); eGFR For African Americans > 60 (> 60); eGFR For Non-African Americans > 60 (> 60)
[2019-08-12] MEDS: *HR* Heparin 5,000 UNIT/ML VIAL SQ SCH ×2 (06:33→17:29)
[2019-08-12] MEDS: Aspirin Enteric Coated 81 MG Tablet PO SCH (07:53)
[2019-08-12] MEDS: Nitrofurantoin (BID) 100 MG CAPSULE PO SCH ×2 (07:53→17:23)
[2019-08-12] MEDS: Isosorbide MONOnitrate (24 HR) 60 MG TAB.ER.24H PO SCH (07:54)
[2019-08-12] MEDS: Gabapentin 400 MG CAPSULE PO SCH ×3 (07:54→20:04)
[2019-08-12] MEDS: Baclofen 10 MG TABLET PO SCH ×3 (07:54→20:05)
[2019-08-12] MEDS: Ranolazine 500 MG TAB.ER.12H PO SCH ×2 (07:55→20:04)
[2019-08-12] MEDS: predniSONE 20 MG TABLET PO SCH (07:55)
[2019-08-12] MEDS: Fenofibrate 54 MG TABLET PO SCH (07:55)
[2019-08-12] MEDS: Metoprolol XL (24 HR) Succ 50 MG TAB.ER.24H PO SCH (07:55)
[2019-08-12] MEDS: Insulin LISPRO 300 UNITS/3 ML VIAL SQ SCH ×7 (07:58→20:05)
[2019-08-12] MEDS: Furosemide 40 MG/4 ML VIAL IVP SCH ×2 (08:01→18:56)
[2019-08-12] MEDS: Insulin DETEMIR 100 UNIT/ML X5UNITS SQ SCH ×2 (09:08→20:09)
[2019-08-12] MEDS: Budesonide/Formoterol 160/4.5 1 PUFF INH IH SCH ×2 (09:47→21:50)
[2019-08-12] MEDS: ARIPiprazole 10 MG TABLET PO SCH (20:04)
[2019-08-13] MEDS ORDERED: Acetaminophen 325 MG TABLET PO PRN (02:33)
[2019-08-13] MEDS: Ipratropium/Albuterol Neb 3 ML IH SCH ×2 (03:38→10:41)
[2019-08-13] MEDS: *HR* Heparin 5,000 UNIT/ML VIAL SQ SCH (06:08)
[2019-08-13 06:59] LABS: Basophils # 0.1 K/mcL (0.0-0.2); Basophils % 0.8 %; Eosinophils # 0.1 K/mcL (0.0-0.6); Eosinophils % 0.8 %; Hematocrit 36.4 % (35.3-44.9); Hemoglobin 10.6 g/dL (11.5-15.4); Lymphocytes # 3.7 K/mcL (0.6-4.6); Lymphocytes % 32.1 %; Mean Corpuscular HGB Conc 29.1 g/dL (31.6-35.5); Mean Corpuscular Hemoglobin 21.5 pg (28.0-33.3); Mean Platelet Volume 10.6 fL (9.4-12.4); Monocytes # 0.8 K/mcL (0.0-1.3); Monocytes % 7.1 %; Neutrophils # 6.8 K/mcL (1.6-8.9); Platelet Count 296 K/mcL (140-400); Red Blood Count 4.92 M/mcL (3.82-4.97); Red Cell Distribution Width 18.2 % (11.5-14.5); Segmented Neutrophils % 58.2 %; White Blood Count 11.6 K/mcL (4.3-11.1)
[2019-08-13 07:13] LABS: BUN/Creatinine Ratio 47 (6-26); Blood Urea Nitrogen 36 mg/dL (8-23); Carbon Dioxide 28 mEq/L (23-29); Chloride 100 mEq/L (98-107); Glucose 299 mg/dL (70-105); Magnesium 1.9 mg/dL (1.6-2.6); Osmolality,Calculated 307 (280-300); Phosphorous 3.2 mg/dL (2.7-4.5); Potassium 4.3 mEq/L (3.5-5.1); Sodium 139 mEq/L (136-145); eGFR For African Americans > 60 (> 60); eGFR For Non-African Americans > 60 (> 60)
[2019-08-13 07:27] VITALS: BP 148/67
[2019-08-13] MEDS: Baclofen 10 MG TABLET PO SCH (08:29)
[2019-08-13] MEDS: Metoprolol XL (24 HR) Succ 50 MG TAB.ER.24H PO SCH (08:29)
[2019-08-13] MEDS: Nitrofurantoin (BID) 100 MG CAPSULE PO SCH (08:29)
[2019-08-13] MEDS: Insulin LISPRO 300 UNITS/3 ML VIAL SQ SCH ×2 (08:30→08:31)
[2019-08-13] MEDS: Fenofibrate 54 MG TABLET PO SCH (08:30)
[2019-08-13] MEDS: Furosemide 40 MG/4 ML VIAL IVP SCH (08:31)
[2019-08-13] MEDS: Aspirin Enteric Coated 81 MG Tablet PO SCH (08:31)
[2019-08-13] MEDS: Ranolazine 500 MG TAB.ER.12H PO SCH (08:32)
[2019-08-13] MEDS: Isosorbide MONOnitrate (24 HR) 60 MG TAB.ER.24H PO SCH (08:32)
[2019-08-13] MEDS: Gabapentin 400 MG CAPSULE PO SCH (08:32)
[2019-08-13] MEDS: Insulin DETEMIR 100 UNIT/ML X5UNITS SQ SCH (08:45)
[2019-08-13] MEDS ORDERED: predniSONE 20 MG TABLET PO SCH (09:00)
[2019-08-13] MEDS: Budesonide/Formoterol 160/4.5 1 PUFF INH IH SCH (10:41)
== END 2019-08-13 13:04 | disposition home or self-care (01) | DRG 291 ==
LOC: EMEROOARM 09:21 → CDU 09:21 → SUATTDRO 12:31 → CDU 13:00 → 2NENU 17:27
PROVIDERS: ADMIT Internal Medicine; ATTEND Internal Medicine

== ENCOUNTER 2019-08-24 03:07 | Inpatient (IN) ==
[2019-08-24] MEDS ORDERED: Ipratropium/Albuterol Neb 3 ML IH ONE (03:20)
[2019-08-24] MEDS ORDERED: Furosemide 40 MG/4 ML VIAL IVP ONE (03:20)
[2019-08-24 04:02] LABS: Basophils # 0.1 K/mcL (0.0-0.2); Basophils % 0.7 %; Eosinophils # 0.3 K/mcL (0.0-0.6); Eosinophils % 1.9 %; Hematocrit 35.3 % (35.3-44.9); Hemoglobin 10.3 g/dL (11.5-15.4); Immature Granulocytes % 1.5 % (0-4); Lymphocytes % 22.5 %; Mean Corpuscular HGB Conc 29.2 g/dL (31.6-35.5); Mean Corpuscular Hemoglobin 21.6 pg (28.0-33.3); Mean Corpuscular Volume 74.2 fL (83.0-100.0); Monocytes # 0.8 K/mcL (0.0-1.3); Monocytes % 6.1 %; Neutrophils # 8.9 K/mcL (1.6-8.9); Platelet Count 343 K/mcL (140-400); Red Blood Count 4.76 M/mcL (3.82-4.97); Red Cell Distribution Width 18.7 % (11.5-14.5); Segmented Neutrophils % 67.3 %; White Blood Count 13.2 K/mcL (4.3-11.1)
[2019-08-24 04:20] LABS: BUN/Creatinine Ratio 21 (6-26); Blood Urea Nitrogen 19 mg/dL (8-23); Calcium 8.5 mg/dL (8.6-10.3); Carbon Dioxide 27 mEq/L (23-29); Chloride 102 mEq/L (98-107); Glucose 134 mg/dL (70-105); Osmolality,Calculated 284 (280-300); Potassium 4.2 mEq/L (3.5-5.1); Sodium 135 mEq/L (136-145); eGFR For African Americans > 60 (> 60); eGFR For Non-African Americans > 60 (> 60)
[2019-08-24 04:21] LABS: Troponin I < 0.03 ng/mL (< 0.04)
[2019-08-24] MEDS ORDERED: methylPREDNISolone 125 MG/2 ML VIAL IVP ONE (04:49)
[2019-08-24] MEDS ORDERED: Aspirin 81 MG TAB.CHEW PO ONE (04:49)
[2019-08-24] MEDS ORDERED: levoFLOXacin 750 MG/150 ML 750 MG/150 ML BAG IVPB ONE (04:49)
[2019-08-24 05:19] LABS: Bilirubin,Urine Negative (Negative); Blood,Urine Negative (Negative); Clarity,Urine Cloudy (Clear); Color,Urine Yellow (Yellow); Glucose,Urine (UA) Normal (Normal); Ketones,Urine Negative (Negative); Leukocyte Esterase,Urine Moderate (Negative); Nitrite,Urine Positive (Negative); PH,Urine 6.5 pH Units (5.0-8.0); Protein,Urine 30 mg/dL (Neg-Trace); Urobilinogen,Urine Normal (Normal)
[2019-08-24 05:28] LABS: Bacteria,Urine Many per hpf (None-Few)
[2019-08-24 05:29] LABS: Squamous Epithelial Cell,Urine Few per lpf (None-Few)
[2019-08-24] MEDS ORDERED: Albuterol 2.5 MG/3 ML NEBULIZER IH PRN (07:48)
[2019-08-24] MEDS: Budesonide/Formoterol 160/4.5 1 PUFF INH IH SCH ×2 (08:36→20:02)
[2019-08-24] MEDS: Ranolazine 500 MG TAB.ER.12H PO SCH ×2 (10:09→20:33)
[2019-08-24] MEDS: Metoprolol XL (24 HR) Succ 50 MG TAB.ER.24H PO SCH (10:09)
[2019-08-24] MEDS: Aspirin Enteric Coated 81 MG Tablet PO SCH (10:10)
[2019-08-24] MEDS: Gabapentin 400 MG CAPSULE PO SCH ×3 (10:10→20:33)
[2019-08-24] MEDS: Fenofibrate 54 MG TABLET PO SCH (10:10)
[2019-08-24] MEDS: Baclofen 10 MG TABLET PO SCH ×3 (10:10→20:33)
[2019-08-24] MEDS: Bumetanide 1 MG/4 ML VIAL IVP SCH ×2 (10:10→17:15)
[2019-08-24] MEDS: Insulin DETEMIR 100 UNIT/ML X5UNITS SQ SCH ×2 (10:12→20:32)
[2019-08-24] MEDS: Tiotropium 18 MCG inhalation IH SCH ×2 (11:01→11:02)
[2019-08-24] MEDS: Insulin LISPRO 300 UNITS/3 ML VIAL SQ SCH (17:15)
[2019-08-24] MEDS: Isosorbide MONOnitrate (24 HR) 60 MG TAB.ER.24H PO SCH (20:32)
[2019-08-24] MEDS: ARIPiprazole 10 MG TABLET PO SCH (20:32)
[2019-08-24] MEDS: *HR* Heparin 5,000 UNIT/ML VIAL SQ SCH (20:33)
[2019-08-25] MEDS: *HR* Heparin 5,000 UNIT/ML VIAL SQ SCH ×3 (05:20→21:35)
[2019-08-25 07:48] LABS: Basophils # 0.1 K/mcL (0.0-0.2); Basophils % 0.4 %; Eosinophils # 0.2 K/mcL (0.0-0.6); Eosinophils % 1.2 %; Hematocrit 31.5 % (35.3-44.9); Hemoglobin 9.2 g/dL (11.5-15.4); Lymphocytes # 3.1 K/mcL (0.6-4.6); Mean Corpuscular HGB Conc 29.2 g/dL (31.6-35.5); Mean Corpuscular Hemoglobin 21.5 pg (28.0-33.3); Mean Corpuscular Volume 73.6 fL (83.0-100.0); Mean Platelet Volume 11.1 fL (9.4-12.4); Monocytes # 0.8 K/mcL (0.0-1.3); Monocytes % 6.3 %; Neutrophils # 8.2 K/mcL (1.6-8.9); Platelet Count 330 K/mcL (140-400); Red Blood Count 4.28 M/mcL (3.82-4.97); Red Cell Distribution Width 18.7 % (11.5-14.5); Segmented Neutrophils % 66.1 %; White Blood Count 12.4 K/mcL (4.3-11.1)
[2019-08-25] MEDS: Budesonide/Formoterol 160/4.5 1 PUFF INH IH SCH ×2 (07:51→20:00)
[2019-08-25] MEDS: Tiotropium 18 MCG inhalation IH SCH (07:51)
[2019-08-25 08:06] LABS: BUN/Creatinine Ratio 33 (6-26); Blood Urea Nitrogen 28 mg/dL (8-23); Calcium 8.9 mg/dL (8.6-10.3); Carbon Dioxide 29 mEq/L (23-29); Chloride 102 mEq/L (98-107); Glucose 128 mg/dL (70-105); Osmolality,Calculated 295 (280-300); Sodium 139 mEq/L (136-145); eGFR For African Americans > 60 (> 60); eGFR For Non-African Americans > 60 (> 60)
[2019-08-25] MEDS: Gabapentin 400 MG CAPSULE PO SCH ×3 (08:18→21:34)
[2019-08-25] MEDS: Fenofibrate 54 MG TABLET PO SCH (08:19)
[2019-08-25] MEDS: Baclofen 10 MG TABLET PO SCH ×3 (08:19→21:34)
[2019-08-25] MEDS: Ranolazine 500 MG TAB.ER.12H PO SCH ×2 (08:19→21:33)
[2019-08-25] MEDS: Metoprolol XL (24 HR) Succ 50 MG TAB.ER.24H PO SCH (08:19)
[2019-08-25] MEDS: Isosorbide MONOnitrate (24 HR) 60 MG TAB.ER.24H PO SCH ×2 (08:19→21:34)
[2019-08-25] MEDS: Aspirin Enteric Coated 81 MG Tablet PO SCH (08:20)
[2019-08-25] MEDS: Bumetanide 1 MG/4 ML VIAL IVP SCH ×2 (08:22→17:15)
[2019-08-25] MEDS: Insulin DETEMIR 100 UNIT/ML X5UNITS SQ SCH ×2 (08:24→20:50)
[2019-08-25] MEDS: Insulin LISPRO 300 UNITS/3 ML VIAL SQ SCH ×3 (08:25→17:14)
[2019-08-25] MEDS ORDERED: Bumetanide 1 MG/4 ML VIAL IVP ONE (13:19)
[2019-08-25] MEDS: levoFLOXacin 500 MG/100 ML 500 MG/100 ML BAG IVPB SCH (14:08)
[2019-08-25] MEDS: ARIPiprazole 10 MG TABLET PO SCH (21:33)
[2019-08-26] MEDS: *HR* Heparin 5,000 UNIT/ML VIAL SQ SCH (05:08)
[2019-08-26] MEDS: Tiotropium 18 MCG inhalation IH SCH (07:41)
[2019-08-26] MEDS: Budesonide/Formoterol 160/4.5 1 PUFF INH IH SCH (07:41)
[2019-08-26] MEDS: Baclofen 10 MG TABLET PO SCH (08:00)
[2019-08-26] MEDS: Fenofibrate 54 MG TABLET PO SCH (08:00)
[2019-08-26] MEDS: Metoprolol XL (24 HR) Succ 50 MG TAB.ER.24H PO SCH (08:01)
[2019-08-26] MEDS: Ranolazine 500 MG TAB.ER.12H PO SCH (08:01)
[2019-08-26] MEDS: Isosorbide MONOnitrate (24 HR) 60 MG TAB.ER.24H PO SCH (08:01)
[2019-08-26] MEDS: Aspirin Enteric Coated 81 MG Tablet PO SCH (08:01)
[2019-08-26] MEDS: Gabapentin 400 MG CAPSULE PO SCH (08:01)
[2019-08-26] MEDS: Bumetanide 1 MG/4 ML VIAL IVP SCH (08:04)
[2019-08-26] MEDS: Insulin LISPRO 300 UNITS/3 ML VIAL SQ SCH ×2 (08:10→11:58)
[2019-08-26] MEDS: Insulin DETEMIR 100 UNIT/ML X5UNITS SQ SCH (08:12)
[2019-08-26] MEDS: levoFLOXacin 500 MG/100 ML 500 MG/100 ML BAG IVPB SCH (08:22)
[2019-08-26 09:44] LABS: Basophils # 0.1 K/mcL (0.0-0.2); Eosinophils # 0.2 K/mcL (0.0-0.6); Eosinophils % 2.2 %; Immature Granulocytes % 1.1 % (0-4); Lymphocytes # 2.6 K/mcL (0.6-4.6); Lymphocytes % 36.3 %; Mean Corpuscular Hemoglobin 21.5 pg (28.0-33.3); Mean Corpuscular Volume 74.2 fL (83.0-100.0); Mean Platelet Volume 10.4 fL (9.4-12.4); Monocytes # 0.6 K/mcL (0.0-1.3); Monocytes % 8.1 %; Neutrophils # 3.7 K/mcL (1.6-8.9); Platelet Count 284 K/mcL (140-400); Red Blood Count 4.18 M/mcL (3.82-4.97); Red Cell Distribution Width 18.6 % (11.5-14.5); Segmented Neutrophils % 51.3 %; White Blood Count 7.2 K/mcL (4.3-11.1)
[2019-08-26 09:53] LABS: BUN/Creatinine Ratio 40 (6-26); Blood Urea Nitrogen 36 mg/dL (8-23); Calcium 8.7 mg/dL (8.6-10.3); Carbon Dioxide 27 mEq/L (23-29); Chloride 101 mEq/L (98-107); Glucose 286 mg/dL (70-105); Osmolality,Calculated 299 (280-300); Potassium 4.5 mEq/L (3.5-5.1); Sodium 135 mEq/L (136-145); eGFR For African Americans > 60 (> 60); eGFR For Non-African Americans > 60 (> 60)
[2019-08-26 11:05] VITALS: BP 137/74
[2019-08-28] MEDS ORDERED: BUPRENORPHINE TP SCH (07:48)
== END 2019-08-26 15:27 | disposition home health service (06) | DRG 292 ==
LOC: 3BNU 03:07 → EMEROOARM 03:07 → SUATTDRO 06:17 → 3BNU 06:48
PROVIDERS: ADMIT Internal Medicine; ATTEND Internal Medicine

== ENCOUNTER 2019-09-01 09:08 | Observation (INO) ==
[2019-09-01 09:26] LABS: Hematocrit 34.3 % (35.3-44.9); Hemoglobin 10.1 g/dL (11.5-15.4); Mean Corpuscular HGB Conc 29.4 g/dL (31.6-35.5); Mean Corpuscular Hemoglobin 21.7 pg (28.0-33.3); Mean Corpuscular Volume 73.6 fL (83.0-100.0); Mean Platelet Volume 10.1 fL (9.4-12.4); Platelet Count 284 K/mcL (140-400); Red Blood Count 4.66 M/mcL (3.82-4.97); Red Cell Distribution Width 18.7 % (11.5-14.5)
[2019-09-01 09:33] LABS: INR 0.9; Prothrombin Time 9.8 Seconds (9.4-12.1)
[2019-09-01 09:36] LABS: Activated Partial Thrombo Time 30.3 Seconds (26.0-36.0)
[2019-09-01 09:47] LABS: BUN/Creatinine Ratio 28 (6-26); Blood Urea Nitrogen 20 mg/dL (8-23); Calcium 8.7 mg/dL (8.6-10.3); Carbon Dioxide 26 mEq/L (23-29); Chloride 105 mEq/L (98-107); Glucose 79 mg/dL (70-105); Osmolality,Calculated 288 (280-300); Potassium 3.8 mEq/L (3.5-5.1); Sodium 138 mEq/L (136-145); Troponin I < 0.03 ng/mL (< 0.04); eGFR For African Americans > 60 (> 60); eGFR For Non-African Americans > 60 (> 60)
[2019-09-01] MEDS ORDERED: Naloxone 0.4 MG/ML INJ IVP PRN (10:30)
[2019-09-01] MEDS ORDERED: Ondansetron 4 MG/2 ML VIAL IVP PRN (10:30)
[2019-09-01] MEDS ORDERED: Ondansetron 4 MG/2 ML VIAL IVP ONE (10:35)
[2019-09-01] MEDS ORDERED: D5% in Water 1,000 ML IVC PRN (10:36)
[2019-09-01] MEDS ORDERED: Dextrose Gel 15 GM/37.5 ML TUBE PO PRN ×2 (10:36)
[2019-09-01] MEDS ORDERED: *HR* Dextrose 50 % in Water (Syg) 50 ML SYRINGE IVP PRN (10:36)
[2019-09-01] MEDS ORDERED: Ipratropium/Albuterol Neb 3 ML IH PRN (10:55)
[2019-09-01] MEDS ORDERED: Perflutren Lipid Microsphere 1.3 ML in 0.9 % Sodium Chloride 8.7 ML IVP ONE (11:15)
[2019-09-01] MEDS: Insulin LISPRO 300 UNITS/3 ML VIAL SQ SCH ×2 (13:37→16:10)
[2019-09-01] MEDS: Aspirin Enteric Coated 81 MG Tablet PO SCH (13:37)
[2019-09-01] MEDS ORDERED: *HR* Promethazine 25 MG/ML VIAL IVP PRN (14:05)
[2019-09-01] MEDS ORDERED: Insulin LISPRO 300 UNITS/3 ML VIAL SQ SCH (21:00)
[2019-09-02] MEDS ORDERED: Acetaminophen 325 MG TABLET PO ONE (05:16)
[2019-09-02] MEDS: Aspirin Enteric Coated 81 MG Tablet PO SCH (08:16)
[2019-09-02] MEDS: Insulin LISPRO 300 UNITS/3 ML VIAL SQ SCH ×2 (08:16→12:21)
[2019-09-02 11:38] VITALS: BP 160/70
[2019-09-02 14:01] LABS: Basophils # 0.1 K/mcL (0.0-0.2); Basophils % 0.6 %; Eosinophils # 0.2 K/mcL (0.0-0.6); Eosinophils % 2.3 %; Hematocrit 36.4 % (35.3-44.9); Hemoglobin 10.5 g/dL (11.5-15.4); Immature Granulocytes % 1.1 % (0-4); Lymphocytes # 2.2 K/mcL (0.6-4.6); Lymphocytes % 21.4 %; Mean Corpuscular HGB Conc 28.8 g/dL (31.6-35.5); Mean Corpuscular Hemoglobin 21.3 pg (28.0-33.3); Mean Corpuscular Volume 73.7 fL (83.0-100.0); Mean Platelet Volume 10.7 fL (9.4-12.4); Monocytes # 0.7 K/mcL (0.0-1.3); Monocytes % 6.5 %; Neutrophils # 6.9 K/mcL (1.6-8.9); Platelet Count 302 K/mcL (140-400); Red Blood Count 4.94 M/mcL (3.82-4.97); Red Cell Distribution Width 18.5 % (11.5-14.5); Segmented Neutrophils % 68.1 %; White Blood Count 10.1 K/mcL (4.3-11.1)
[2019-09-02 14:20] LABS: BUN/Creatinine Ratio 26 (6-26); Blood Urea Nitrogen 15 mg/dL (8-23); Calcium 9.3 mg/dL (8.6-10.3); Carbon Dioxide 26 mEq/L (23-29); Chloride 104 mEq/L (98-107); Chol/HDL Ratio 3.4 (0-4.9); Cholesterol 147 mg/dL (< 200); Glucose 227 mg/dL (70-105); HDL Cholesterol 43 mg/dL (40-59); LDL Cholesterol,Calculated 63 mg/dL (0-99); Magnesium 1.7 mg/dL (1.6-2.6); Osmolality,Calculated 294 (280-300); Potassium 4.2 mEq/L (3.5-5.1); Sodium 138 mEq/L (136-145); Triglycerides 206 mg/dL (< 150); eGFR For African Americans > 60 (> 60); eGFR For Non-African Americans > 60 (> 60)
[2019-09-02 14:25] LABS: Anisocytosis 1+ (Not Present); Hypochromasia Present (Not Present); Platelet Estimate Normal (Normal)
[2019-09-02 23:26] LABS: Estimated Average Glucose 169 mg/dl
== END 2019-09-02 16:29 | disposition home or self-care (01) ==
LOC: EMEROOARM 09:08 → 2ANU 09:08
PROVIDERS: ADMIT Family Medicine; ATTEND Internal Medicine

== ENCOUNTER 2019-09-15 03:34 | Observation (INO) ==
[2019-09-15] MEDS ORDERED: Aspirin 81 MG TAB.CHEW PO ONE (04:10)
[2019-09-15] MEDS ORDERED: Nitroglycerin 0.4 MG TAB.SUBL SL PRN (04:10)
[2019-09-15] MEDS ORDERED: Ondansetron 4 MG/2 ML VIAL IVP ONE (04:26)
[2019-09-15 04:41] LABS: INR 0.9; Prothrombin Time 9.9 Seconds (9.4-12.1)
[2019-09-15 04:45] LABS: Activated Partial Thrombo Time 19.9 Seconds (26.0-36.0)
[2019-09-15 04:52] LABS: Basophils # 0.1 K/mcL (0.0-0.2); Basophils % 0.7 %; Eosinophils # 0.3 K/mcL (0.0-0.6); Eosinophils % 1.8 %; Hematocrit 35.9 % (35.3-44.9); Hemoglobin 10.1 g/dL (11.5-15.4); Immature Granulocytes % 1.5 % (0-4); Lymphocytes # 3.2 K/mcL (0.6-4.6); Lymphocytes % 20.1 %; Mean Corpuscular HGB Conc 28.1 g/dL (31.6-35.5); Mean Corpuscular Hemoglobin 20.7 pg (28.0-33.3); Mean Corpuscular Volume 73.7 fL (83.0-100.0); Mean Platelet Volume 11.2 fL (9.4-12.4); Nucleated Red Blood Cells 0.2 /100 WBC (0); Platelet Count 304 K/mcL (140-400); Red Blood Count 4.87 M/mcL (3.82-4.97); Red Cell Distribution Width 19.1 % (11.5-14.5); Segmented Neutrophils % 69.9 %; White Blood Count 15.8 K/mcL (4.3-11.1)
[2019-09-15 05:01] LABS: Bilirubin,Urine Negative (Negative); Blood,Urine Negative (Negative); Clarity,Urine Cloudy (Clear); Color,Urine Yellow (Yellow); Glucose,Urine (UA) Normal (Normal); Ketones,Urine Negative (Negative); Leukocyte Esterase,Urine Large (Negative); Nitrite,Urine Positive (Negative); Protein,Urine 100 mg/dL (Neg-Trace); Specific Gravity,Urine 1.014 (1.010-1.025); Urobilinogen,Urine Normal (Normal)
[2019-09-15 05:03] LABS: BUN/Creatinine Ratio 23 (6-26); Blood Urea Nitrogen 16 mg/dL (8-23); Calcium 8.8 mg/dL (8.6-10.3); Carbon Dioxide 25 mEq/L (23-29); Chloride 102 mEq/L (98-107); Glucose 136 mg/dL (70-105); Osmolality,Calculated 277 (280-300); Potassium 4.1 mEq/L (3.5-5.1); Sodium 132 mEq/L (136-145); eGFR For African Americans > 60 (> 60); eGFR For Non-African Americans > 60 (> 60)
[2019-09-15 05:04] LABS: Troponin I < 0.03 ng/mL (< 0.04)
[2019-09-15 05:09] LABS: Bacteria,Urine Many per hpf (None-Few); Hyaline Casts,Urine None Seen per lpf (None-Few); Squamous Epithelial Cell,Urine Many per lpf (None-Few); WBC,Urine 50-100 per hpf (0-3)
[2019-09-15 05:25] LABS: Hypochromasia Present (Not Present); Platelet Estimate Normal (Normal)
[2019-09-15] MEDS ORDERED: cefTRIAXone 1,000 MG in Water for inj. (sterile) 10 ML IVP ONE (06:58)
[2019-09-15] MEDS ORDERED: Naloxone 0.4 MG/ML INJ IVP PRN (07:09)
[2019-09-15] MEDS ORDERED: *HR* Dextrose 50 % in Water (Syg) 50 ML SYRINGE IVP PRN (07:16)
[2019-09-15] MEDS ORDERED: D5% in Water 1,000 ML IVC PRN (07:16)
[2019-09-15] MEDS ORDERED: Dextrose Gel 15 GM/37.5 ML TUBE PO PRN ×2 (07:16)
[2019-09-15] MEDS: Furosemide 40 MG TABLET PO SCH ×2 (09:36→21:28)
[2019-09-15] MEDS: Insulin DETEMIR 100 UNIT/ML X5UNITS SQ SCH ×2 (09:36→22:10)
[2019-09-15] MEDS: Aspirin Enteric Coated 81 MG Tablet PO SCH (09:36)
[2019-09-15] MEDS: Ranolazine 500 MG TAB.ER.12H PO SCH ×2 (09:36→21:28)
[2019-09-15] MEDS: Gabapentin 400 MG CAPSULE PO SCH ×3 (09:36→21:27)
[2019-09-15] MEDS: Fenofibrate 54 MG TABLET PO SCH (09:36)
[2019-09-15] MEDS: Metoprolol XL (24 HR) Succ 50 MG TAB.ER.24H PO SCH (09:36)
[2019-09-15] MEDS: Isosorbide MONOnitrate (24 HR) 60 MG TAB.ER.24H PO SCH ×2 (09:36→21:28)
[2019-09-15] MEDS: Insulin LISPRO 300 UNITS/3 ML VIAL SQ SCH ×3 (09:38→17:07)
[2019-09-15 10:06] LABS: Estimated Average Glucose 174 mg/dl
[2019-09-15] MEDS: Budesonide/Formoterol 160/4.5 1 PUFF INH IH SCH ×2 (10:57→20:42)
[2019-09-15] MEDS: *HR* Heparin 5,000 UNIT/ML VIAL SQ SCH (17:06)
[2019-09-15] MEDS: ARIPiprazole 5 MG TABLET PO SCH (21:28)
[2019-09-16 05:37] LABS: Basophils % 0.8 %; Nucleated Red Blood Cells 0.3 /100 WBC (0)
[2019-09-16 05:39] LABS: Basophils # 0.1 K/mcL (0.0-0.2); Eosinophils # 0.3 K/mcL (0.0-0.6); Eosinophils % 2.6 %; Hematocrit 34.2 % (35.3-44.9); Hemoglobin 9.6 g/dL (11.5-15.4); Immature Granulocytes % 1.3 % (0-4); Lymphocytes # 3.2 K/mcL (0.6-4.6); Lymphocytes % 28.5 %; Mean Corpuscular HGB Conc 28.1 g/dL (31.6-35.5); Mean Corpuscular Hemoglobin 20.5 pg (28.0-33.3); Mean Corpuscular Volume 73.1 fL (83.0-100.0); Mean Platelet Volume 10.5 fL (9.4-12.4); Monocytes # 0.8 K/mcL (0.0-1.3); Monocytes % 7.1 %; Neutrophils # 6.8 K/mcL (1.6-8.9); Platelet Count 264 K/mcL (140-400); Red Blood Count 4.68 M/mcL (3.82-4.97); Red Cell Distribution Width 18.9 % (11.5-14.5); Segmented Neutrophils % 59.7 %; White Blood Count 11.3 K/mcL (4.3-11.1)
[2019-09-16] MEDS: *HR* Heparin 5,000 UNIT/ML VIAL SQ SCH ×2 (05:55→17:01)
[2019-09-16 06:00] LABS: Anisocytosis 1+ (Not Present); Hypochromasia Present (Not Present); Stomatocytes 1+ (Not Present)
[2019-09-16 06:01] LABS: Platelet Estimate Normal (Normal)
[2019-09-16 06:12] LABS: BUN/Creatinine Ratio 25 (6-26); Blood Urea Nitrogen 18 mg/dL (8-23); Calcium 8.5 mg/dL (8.6-10.3); Carbon Dioxide 29 mEq/L (23-29); Chloride 107 mEq/L (98-107); Glucose 49 mg/dL (70-105); Magnesium 1.8 mg/dL (1.6-2.6); Osmolality,Calculated 291 (280-300); Phosphorous 4.6 mg/dL (2.7-4.5); Potassium 3.9 mEq/L (3.5-5.1); Sodium 141 mEq/L (136-145); eGFR For African Americans > 60 (> 60); eGFR For Non-African Americans > 60 (> 60)
[2019-09-16] MEDS: Insulin DETEMIR 100 UNIT/ML X5UNITS SQ SCH ×3 (07:22→21:14)
[2019-09-16] MEDS: Budesonide/Formoterol 160/4.5 1 PUFF INH IH SCH ×2 (07:49→20:10)
[2019-09-16] MEDS ORDERED: Albuterol 2.5 MG/3 ML NEBULIZER IH PRN (08:30)
[2019-09-16] MEDS ORDERED: Gabapentin 400 MG CAPSULE PO PRN (08:30)
[2019-09-16] MEDS: Metoprolol XL (24 HR) Succ 50 MG TAB.ER.24H PO SCH (09:05)
[2019-09-16] MEDS: Furosemide 40 MG TABLET PO SCH ×2 (09:05→21:13)
[2019-09-16] MEDS: Fenofibrate 54 MG TABLET PO SCH (09:06)
[2019-09-16] MEDS: Insulin LISPRO 300 UNITS/3 ML VIAL SQ SCH ×3 (09:06→17:01)
[2019-09-16] MEDS: Gabapentin 400 MG CAPSULE PO SCH ×3 (09:06→21:13)
[2019-09-16] MEDS: Aspirin Enteric Coated 81 MG Tablet PO SCH (09:06)
[2019-09-16] MEDS: Isosorbide MONOnitrate (24 HR) 60 MG TAB.ER.24H PO SCH ×2 (09:06→21:13)
[2019-09-16] MEDS: Ranolazine 500 MG TAB.ER.12H PO SCH ×2 (09:06→21:14)
[2019-09-16] MEDS: Regadenoson 0.4 MG/5 ML SYRINGE IVP ONE ×2 (09:06→11:46)
[2019-09-16] MEDS: Baclofen 10 MG TABLET PO SCH ×3 (10:04→21:13)
[2019-09-16] MEDS: Tiotropium 18 MCG inhalation IH SCH (11:05)
[2019-09-16 13:55] LABS: Hepatitis B Surface Antigen Nonreactive (Nonreactive)
[2019-09-16 14:23] LABS: HIV-1&2 Antibody & p24 Ag Nonreactive (Nonreactive)
[2019-09-16 14:24] LABS: Hepatitis C Virus Antibody Nonreactive (Nonreactive)
[2019-09-16] MEDS: ARIPiprazole 5 MG TABLET PO SCH (21:14)
[2019-09-16] MEDS: Nystatin SUSP 5 ML UD.LIQ PO SCH (21:20)
[2019-09-17] MEDS ORDERED: Ondansetron 4 MG/2 ML VIAL IVP PRN (01:08)
[2019-09-17] MEDS: *HR* Heparin 5,000 UNIT/ML VIAL SQ SCH (05:04)
[2019-09-17 07:00] VITALS: BP 165/82
[2019-09-17] MEDS: Budesonide/Formoterol 160/4.5 1 PUFF INH IH SCH (07:33)
[2019-09-17] MEDS: Tiotropium 18 MCG inhalation IH SCH (07:34)
[2019-09-17] MEDS ORDERED: Metoprolol XL (24 HR) Succ 50 MG TAB.ER.24H PO SCH (09:00)
[2019-09-17] MEDS: Isosorbide MONOnitrate (24 HR) 60 MG TAB.ER.24H PO SCH (09:05)
[2019-09-17] MEDS: Nystatin SUSP 5 ML UD.LIQ PO SCH (09:05)
[2019-09-17] MEDS: Ranolazine 500 MG TAB.ER.12H PO SCH (09:05)
[2019-09-17] MEDS: Aspirin Enteric Coated 81 MG Tablet PO SCH (09:05)
[2019-09-17] MEDS: Baclofen 10 MG TABLET PO SCH (09:06)
[2019-09-17] MEDS: Gabapentin 400 MG CAPSULE PO SCH (09:06)
[2019-09-17] MEDS: Fenofibrate 54 MG TABLET PO SCH (09:06)
[2019-09-17] MEDS: Furosemide 40 MG TABLET PO SCH (09:06)
[2019-09-17] MEDS: Insulin LISPRO 300 UNITS/3 ML VIAL SQ SCH (09:07)
[2019-09-17] MEDS: Insulin DETEMIR 100 UNIT/ML X5UNITS SQ SCH (09:10)
== END 2019-09-17 11:58 | disposition home or self-care (01) ==
LOC: 3BNU 03:34 → EMEROOARM 03:34 → 3BNU 07:49
PROVIDERS: ADMIT Student in an Organized Health Care Education/Training Program; ATTEND Student in an Organized Health Care Education/Training Program

== ENCOUNTER 2019-10-05 00:56 | Observation (INO) ==
[2019-10-05 01:17] LABS: Basophils # 0.1 K/mcL (0.0-0.2); Basophils % 0.8 %; Eosinophils # 0.3 K/mcL (0.0-0.6); Eosinophils % 2.4 %; Hematocrit 35.2 % (35.3-44.9); Hemoglobin 10.2 g/dL (11.5-15.4); Immature Granulocytes % 1.1 % (0-4); Lymphocytes # 2.7 K/mcL (0.6-4.6); Mean Corpuscular Hemoglobin 20.7 pg (28.0-33.3); Mean Corpuscular Volume 71.5 fL (83.0-100.0); Mean Platelet Volume 10.2 fL (9.4-12.4); Monocytes # 0.9 K/mcL (0.0-1.3); Monocytes % 6.7 %; Neutrophils # 9.2 K/mcL (1.6-8.9); Nucleated Red Blood Cells 0.3 /100 WBC (0); Platelet Count 288 K/mcL (140-400); Red Blood Count 4.92 M/mcL (3.82-4.97); Red Cell Distribution Width 20.7 % (11.5-14.5); White Blood Count 13.3 K/mcL (4.3-11.1)
[2019-10-05 01:39] LABS: BUN/Creatinine Ratio 24 (6-26); Blood Urea Nitrogen 16 mg/dL (8-23); Calcium 8.9 mg/dL (8.6-10.3); Carbon Dioxide 28 mEq/L (23-29); Chloride 105 mEq/L (98-107); Glucose 111 mg/dL (70-105); Osmolality,Calculated 290 (280-300); Sodium 139 mEq/L (136-145); eGFR For African Americans > 60 (> 60); eGFR For Non-African Americans > 60 (> 60)
[2019-10-05 01:40] LABS: Troponin I < 0.03 ng/mL (< 0.04)
[2019-10-05] MEDS ORDERED: Furosemide 40 MG/4 ML VIAL IVP ONE (03:15)
[2019-10-05] MEDS ORDERED: Ipratropium/Albuterol Neb 3 ML IH STA (03:16)
[2019-10-05] MEDS ORDERED: Naloxone 0.4 MG/ML INJ IVP PRN (07:06)
[2019-10-05] MEDS ORDERED: D5% in Water 1,000 ML IVC PRN (07:07)
[2019-10-05] MEDS ORDERED: Dextrose Gel 15 GM/37.5 ML TUBE PO PRN ×2 (07:07)
[2019-10-05] MEDS ORDERED: *HR* Dextrose 50 % in Water (Syg) 50 ML SYRINGE IVP PRN (07:07)
[2019-10-05] MEDS ORDERED: Albuterol 2.5 MG/3 ML NEBULIZER IH PRN (07:15)
[2019-10-05] MEDS ORDERED: Nicotine 21 MG PATCH.TD24 TD PRN (07:39)
[2019-10-05 07:56] LABS: % Iron Saturation 3 % (15-50); Iron 14 mcg/dL (50-170); Transferrin 293 mg/dL (203-362)
[2019-10-05] MEDS: Furosemide 40 MG/4 ML VIAL IVP SCH ×2 (08:13→16:59)
[2019-10-05 08:14] LABS: Ferritin 12 ng/mL (10-120)
[2019-10-05] MEDS: Insulin LISPRO 300 UNITS/3 ML VIAL SQ SCH ×4 (08:14→20:14)
[2019-10-05] MEDS ORDERED: GABAPENTIN 1600 MG PO PRN (09:28)
[2019-10-05] MEDS: Aspirin Enteric Coated 81 MG Tablet PO SCH (10:58)
[2019-10-05] MEDS: Budesonide/Formoterol 160/4.5 1 PUFF INH IH SCH ×2 (11:28→22:39)
[2019-10-05] MEDS: Ipratropium/Albuterol Neb 3 ML IH SCH ×3 (11:29→22:39)
[2019-10-05] MEDS ORDERED: Nystatin SUSP 5 ML UD.LIQ PO SCH (13:00)
[2019-10-05] MEDS: Ondansetron ODT 4 MG TAB.RAPDIS SL PRN (14:33)
[2019-10-05] MEDS: Baclofen 10 MG TABLET PO SCH ×2 (15:08→20:15)
[2019-10-05] MEDS: Gabapentin 400 MG CAPSULE PO SCH ×2 (15:08→20:15)
[2019-10-05] MEDS: *HR* Heparin 5,000 UNIT/ML VIAL SQ SCH (17:00)
[2019-10-05] MEDS: Insulin DETEMIR 100 UNIT/ML X5UNITS SQ SCH (20:14)
[2019-10-05] MEDS: Ranolazine 500 MG TAB.ER.12H PO SCH (20:15)
[2019-10-05] MEDS: Isosorbide MONOnitrate (24 HR) 60 MG TAB.ER.24H PO SCH (20:15)
[2019-10-05] MEDS: ARIPiprazole 5 MG TABLET PO SCH (20:15)
[2019-10-05] MEDS ORDERED: AMMONIUM LACTATE APPL TP SCH (21:00)
[2019-10-06] MEDS: Ipratropium/Albuterol Neb 3 ML IH SCH ×2 (03:38→09:34)
[2019-10-06 04:51] LABS: Hematocrit 34.2 % (35.3-44.9)
[2019-10-06 04:52] LABS: Hemoglobin 9.3 g/dL (11.5-15.4); Mean Corpuscular HGB Conc 27.2 g/dL (31.6-35.5); Mean Corpuscular Hemoglobin 20.5 pg (28.0-33.3); Mean Corpuscular Volume 75.5 fL (83.0-100.0); Mean Platelet Volume 11.3 fL (9.4-12.4); Platelet Count 248 K/mcL (140-400); Red Blood Count 4.53 M/mcL (3.82-4.97); Red Cell Distribution Width 20.9 % (11.5-14.5); White Blood Count 10.5 K/mcL (4.3-11.1)
[2019-10-06 05:10] LABS: BUN/Creatinine Ratio 24 (6-26); Blood Urea Nitrogen 19 mg/dL (8-23); Calcium 8.8 mg/dL (8.6-10.3); Carbon Dioxide 29 mEq/L (23-29); Chloride 105 mEq/L (98-107); Glucose 147 mg/dL (70-105); Osmolality,Calculated 297 (280-300); Sodium 141 mEq/L (136-145); eGFR For African Americans > 60 (> 60); eGFR For Non-African Americans > 60 (> 60)
[2019-10-06] MEDS: *HR* Heparin 5,000 UNIT/ML VIAL SQ SCH ×2 (05:33→17:38)
[2019-10-06] MEDS: Insulin LISPRO 300 UNITS/3 ML VIAL SQ SCH ×4 (08:15→21:00)
[2019-10-06] MEDS ORDERED: NON-FORMULARY MEDICATION 1 EACH EACH (Tiotropium Bromide [Spiriva Respimat] 2 PUFF) IH SCH (09:00)
[2019-10-06] MEDS: Budesonide/Formoterol 160/4.5 1 PUFF INH IH SCH ×2 (09:34→20:13)
[2019-10-06] MEDS: Furosemide 40 MG/4 ML VIAL IVP SCH ×2 (09:59→17:38)
[2019-10-06] MEDS: Metoprolol XL (24 HR) Succ 50 MG TAB.ER.24H PO SCH (10:00)
[2019-10-06] MEDS: Gabapentin 400 MG CAPSULE PO SCH ×3 (10:00→21:00)
[2019-10-06] MEDS: Isosorbide MONOnitrate (24 HR) 60 MG TAB.ER.24H PO SCH ×2 (10:00→21:00)
[2019-10-06] MEDS: Baclofen 10 MG TABLET PO SCH ×2 (10:00→15:43)
[2019-10-06] MEDS: Fenofibrate 54 MG TABLET PO SCH (10:00)
[2019-10-06] MEDS: Ranolazine 500 MG TAB.ER.12H PO SCH ×2 (10:00→21:00)
[2019-10-06] MEDS: Aspirin Enteric Coated 81 MG Tablet PO SCH (10:01)
[2019-10-06] MEDS: Insulin DETEMIR 100 UNIT/ML X5UNITS SQ SCH ×2 (10:16→20:59)
[2019-10-06] MEDS ORDERED: Nystatin POWDER 30 GM BOTTLE TP PRN (10:24)
[2019-10-06] MEDS ORDERED: Ipratropium/Albuterol Neb 3 ML IH PRN (10:51)
[2019-10-06] MEDS: ARIPiprazole 5 MG TABLET PO SCH (17:34)
[2019-10-07] MEDS: *HR* Heparin 5,000 UNIT/ML VIAL SQ SCH ×2 (06:16→16:47)
[2019-10-07 07:05] LABS: BUN/Creatinine Ratio 36 (6-26); Blood Urea Nitrogen 36 mg/dL (8-23); Calcium 8.5 mg/dL (8.6-10.3); Carbon Dioxide 26 mEq/L (23-29); Chloride 102 mEq/L (98-107); Glucose 193 mg/dL (70-105); Osmolality,Calculated 298 (280-300); Potassium 4.6 mEq/L (3.5-5.1); Sodium 137 mEq/L (136-145); eGFR For African Americans > 60 (> 60); eGFR For Non-African Americans 56 (> 60)
[2019-10-07] MEDS: Budesonide/Formoterol 160/4.5 1 PUFF INH IH SCH ×2 (07:47→20:06)
[2019-10-07] MEDS: Ranolazine 500 MG TAB.ER.12H PO SCH ×2 (08:45→20:41)
[2019-10-07] MEDS: Fenofibrate 54 MG TABLET PO SCH (08:45)
[2019-10-07] MEDS: Furosemide 40 MG/4 ML VIAL IVP SCH ×2 (08:46→16:47)
[2019-10-07] MEDS: Aspirin Enteric Coated 81 MG Tablet PO SCH (08:46)
[2019-10-07] MEDS: Gabapentin 400 MG CAPSULE PO SCH ×3 (08:46→20:41)
[2019-10-07] MEDS: Isosorbide MONOnitrate (24 HR) 60 MG TAB.ER.24H PO SCH ×2 (08:46→20:41)
[2019-10-07] MEDS: Metoprolol XL (24 HR) Succ 50 MG TAB.ER.24H PO SCH (08:46)
[2019-10-07] MEDS: Insulin DETEMIR 100 UNIT/ML X5UNITS SQ SCH ×2 (08:46→20:38)
[2019-10-07] MEDS: Insulin LISPRO 300 UNITS/3 ML VIAL SQ SCH ×4 (08:47→20:33)
[2019-10-07] MEDS: Ondansetron ODT 4 MG TAB.RAPDIS SL PRN (15:40)
[2019-10-07] MEDS: Nitroglycerin 0.4 MG TAB.SUBL SL PRN ×3 (16:57→17:19)
[2019-10-07] MEDS: ARIPiprazole 5 MG TABLET PO SCH (20:39)
[2019-10-07] MEDS ORDERED: Ondansetron ODT 4 MG TAB.RAPDIS SL PRN (21:31)
[2019-10-08 06:27] LABS: BUN/Creatinine Ratio 41 (6-26); Blood Urea Nitrogen 38 mg/dL (8-23); Calcium 8.8 mg/dL (8.6-10.3); Carbon Dioxide 29 mEq/L (23-29); Chloride 102 mEq/L (98-107); Glucose 107 mg/dL (70-105); Osmolality,Calculated 296 (280-300); Potassium 4.8 mEq/L (3.5-5.1); Sodium 138 mEq/L (136-145); eGFR For African Americans > 60 (> 60); eGFR For Non-African Americans > 60 (> 60)
[2019-10-08] MEDS: *HR* Heparin 5,000 UNIT/ML VIAL SQ SCH (06:40)
[2019-10-08 07:18] VITALS: BP 151/71
[2019-10-08] MEDS: Budesonide/Formoterol 160/4.5 1 PUFF INH IH SCH (07:58)
[2019-10-08] MEDS: Fenofibrate 54 MG TABLET PO SCH (08:49)
[2019-10-08] MEDS: Furosemide 40 MG/4 ML VIAL IVP SCH (08:49)
[2019-10-08] MEDS: Metoprolol XL (24 HR) Succ 50 MG TAB.ER.24H PO SCH (08:50)
[2019-10-08] MEDS: Ranolazine 500 MG TAB.ER.12H PO SCH (08:50)
[2019-10-08] MEDS: Gabapentin 400 MG CAPSULE PO SCH (08:50)
[2019-10-08] MEDS: Isosorbide MONOnitrate (24 HR) 60 MG TAB.ER.24H PO SCH (08:51)
[2019-10-08] MEDS: Insulin LISPRO 300 UNITS/3 ML VIAL SQ SCH (08:51)
[2019-10-08] MEDS: Aspirin Enteric Coated 81 MG Tablet PO SCH (08:51)
[2019-10-08] MEDS: Insulin DETEMIR 100 UNIT/ML X5UNITS SQ SCH (09:01)
[2019-10-09] MEDS ORDERED: BUPRENORPHINE 20 MCG/HR TP SCH (09:00)
== END 2019-10-08 12:14 | disposition home or self-care (01) ==
LOC: EMEROOARM 00:56 → 3NENU 00:56 → SUATTDRO 05:11 → 2ANU 05:15
PROVIDERS: ADMIT Internal Medicine; ATTEND Family Medicine

== ENCOUNTER 2019-10-31 22:46 | Observation (INO) ==
[2019-10-31 23:38] LABS: Immature Granulocytes % 0.9 % (0-4); Nucleated Red Blood Cells 0.2 /100 WBC (0)
[2019-10-31 23:40] LABS: Basophils # 0.1 K/mcL (0.0-0.2); Basophils % 0.6 %; Eosinophils # 0.3 K/mcL (0.0-0.6); Eosinophils % 2.7 %; Hematocrit 34.6 % (35.3-44.9); Hemoglobin 9.8 g/dL (11.5-15.4); Immature Platelets 6.3 % (1.1-6.1); Lymphocytes # 2.1 K/mcL (0.6-4.6); Lymphocytes % 16.5 %; Mean Corpuscular HGB Conc 28.3 g/dL (31.6-35.5); Mean Corpuscular Hemoglobin 20.9 pg (28.0-33.3); Mean Corpuscular Volume 73.8 fL (83.0-100.0); Monocytes # 0.8 K/mcL (0.0-1.3); Monocytes % 6.1 %; Neutrophils # 9.3 K/mcL (1.6-8.9); Platelet Count 243 K/mcL (140-400); Red Blood Count 4.69 M/mcL (3.82-4.97); Red Cell Distribution Width 22.9 % (11.5-14.5); Segmented Neutrophils % 73.2 %; White Blood Count 12.7 K/mcL (4.3-11.1)
[2019-10-31 23:53] LABS: Alanine Aminotransferase 14 Units/L (7-52); Albumin 2.9 g/dL (3.5-5.7); Alkaline Phosphatase 106 Units/L (34-104); Aspartate Amino Transferase 13 Units/L (13-39); BUN/Creatinine Ratio 25 (6-26); Bilirubin,Direct 0.1 mg/dL (0.0-0.2); Bilirubin,Indirect 0.2 mg/dL (0.0-1.0); Bilirubin,Total 0.3 mg/dL (0.3-1.0); Blood Urea Nitrogen 15 mg/dL (8-23); Calcium 8.1 mg/dL (8.6-10.3); Carbon Dioxide 24 mEq/L (23-29); Chloride 108 mEq/L (98-107); Glucose 210 mg/dL (70-105); Osmolality,Calculated 293 (280-300); Potassium 4.1 mEq/L (3.5-5.1); Sodium 138 mEq/L (136-145); Total Protein 5.9 g/dL (6.4-8.9); Troponin I < 0.03 ng/mL (< 0.04); eGFR For African Americans > 60 (> 60); eGFR For Non-African Americans > 60 (> 60)
[2019-11-01 00:41] LABS: Bilirubin,Urine Negative (Negative); Blood,Urine Small (Negative); Clarity,Urine Cloudy (Clear); Color,Urine Yellow (Yellow); Glucose,Urine (UA) Normal (Normal); Ketones,Urine Negative (Negative); Leukocyte Esterase,Urine Small (Negative); Nitrite,Urine Negative (Negative); Protein,Urine >=300 mg/dL (Neg-Trace); Specific Gravity,Urine 1.023 (1.010-1.025); Urobilinogen,Urine Normal (Normal)
[2019-11-01 00:44] LABS: Bacteria,Urine Many per hpf (None-Few); Hyaline Casts,Urine None Seen per lpf (None-Few); Squamous Epithelial Cell,Urine Many per lpf (None-Few); WBC,Urine TNTC per hpf (0-3)
[2019-11-01 01:03] LABS: Anisocytosis 2+ (Not Present); Hypochromasia Not Present (Not Present); Platelet Estimate Normal (Normal)
[2019-11-01] MEDS ORDERED: Furosemide 40 MG/4 ML VIAL IVP ONE (01:16)
[2019-11-01] MEDS ORDERED: cefTRIAXone 1,000 MG in Water for inj. (sterile) 10 ML IVP ONE (01:19)
[2019-11-01] MEDS ORDERED: Naloxone 0.4 MG/ML INJ IVP PRN (05:08)
[2019-11-01] MEDS ORDERED: Ibuprofen 600 MG TABLET PO PRN (05:18)
[2019-11-01] MEDS ORDERED: D5% in Water 1,000 ML IVC PRN (05:53)
[2019-11-01] MEDS ORDERED: Dextrose Gel 15 GM/37.5 ML TUBE PO PRN (05:53)
[2019-11-01] MEDS ORDERED: *HR* Dextrose 50 % in Water (Syg) 50 ML SYRINGE IVP PRN (05:53)
[2019-11-01] MEDS: *HR* Heparin 5,000 UNIT/ML VIAL SQ SCH ×2 (06:24→16:08)
[2019-11-01] MEDS: Insulin LISPRO 300 UNITS/3 ML VIAL SQ SCH ×4 (07:41→20:17)
[2019-11-01] MEDS ORDERED: Nitroglycerin 0.4 MG TAB.SUBL SL PRN (07:49)
[2019-11-01] MEDS ORDERED: Albuterol 2.5 MG/3 ML NEBULIZER IH PRN (07:49)
[2019-11-01] MEDS ORDERED: NON-FORMULARY MEDICATION 1 EACH EACH (Tiotropium Bromide [Spiriva Respimat] 2 PUFF) IH SCH (09:00)
[2019-11-01] MEDS ORDERED: Furosemide 40 MG/4 ML VIAL IVP SCH (09:00)
[2019-11-01] MEDS: Ranolazine 500 MG TAB.ER.12H PO SCH ×2 (09:27→20:14)
[2019-11-01] MEDS: Metoprolol XL (24 HR) Succ 50 MG TAB.ER.24H PO SCH (09:27)
[2019-11-01] MEDS: Gabapentin 400 MG CAPSULE PO SCH ×3 (09:27→20:14)
[2019-11-01] MEDS: Furosemide 40 MG/4 ML VIAL IVP SCH ×2 (09:28→16:08)
[2019-11-01] MEDS: Isosorbide MONOnitrate (24 HR) 60 MG TAB.ER.24H PO SCH ×2 (09:28→20:14)
[2019-11-01] MEDS: Aspirin Enteric Coated 81 MG Tablet PO SCH (09:28)
[2019-11-01] MEDS: Ammonium Lactate 30 APPL/225 GM BOTTLE TP SCH ×2 (09:29→20:16)
[2019-11-01] MEDS: Insulin DETEMIR 100 UNIT/ML X5UNITS SQ SCH ×2 (09:30→21:19)
[2019-11-01] MEDS ORDERED: Ondansetron 4 MG/2 ML VIAL IVP ONE (09:44)
[2019-11-01] MEDS: Budesonide/Formoterol 160/4.5 1 PUFF INH IH SCH ×2 (10:53→19:48)
[2019-11-02 00:29] LABS: Adenovirus Not Detected (Not Detect); Bordetella Pertussis Not Detected (Not Detect); Chlamydophila pneumoniae Not Detected (Not Detect); Coronavirus 229E Not Detected (Not Detect); Coronavirus HKU1 Not Detected (Not Detect); Coronavirus NL63 Not Detected (Not Detect); Coronavirus OC43 Not Detected (Not Detect); Human Metapneumovirus Not Detected (Not Detect); Human Rhinovirus/Enterovirus Not Detected (Not Detect); Influenza A Subtype 2009 H1 Not Detected (Not Detect); Influenza B Not Detected (Not Detect); Mycoplasma pneumoniae Not Detected (Not Detect); Parainfluenza Virus 1 Not Detected (Not Detect); Parainfluenza Virus 2 Not Detected (Not Detect); Parainfluenza Virus 3 Not Detected (Not Detect); Parainfluenza Virus 4 Not Detected (Not Detect); Respiratory Syncytial Virus Not Detected (Not Detect)
[2019-11-02] MEDS: *HR* Heparin 5,000 UNIT/ML VIAL SQ SCH ×2 (05:15→17:14)
[2019-11-02 05:23] LABS: Basophils # 0.1 K/mcL (0.0-0.2); Basophils % 0.7 %; Eosinophils # 0.2 K/mcL (0.0-0.6); Eosinophils % 2.3 %; Hematocrit 32.5 % (35.3-44.9); Hemoglobin 8.8 g/dL (11.5-15.4); Immature Granulocytes % 0.6 % (0-4); Immature Platelets 6.6 % (1.1-6.1); Lymphocytes # 2.4 K/mcL (0.6-4.6); Lymphocytes % 24.5 %; Mean Corpuscular HGB Conc 27.1 g/dL (31.6-35.5); Mean Corpuscular Hemoglobin 20.5 pg (28.0-33.3); Mean Corpuscular Volume 75.8 fL (83.0-100.0); Mean Platelet Volume 10.7 fL (9.4-12.4); Monocytes # 0.8 K/mcL (0.0-1.3); Monocytes % 8.1 %; Neutrophils # 6.2 K/mcL (1.6-8.9); Platelet Count 213 K/mcL (140-400); Red Blood Count 4.29 M/mcL (3.82-4.97); Red Cell Distribution Width 22.4 % (11.5-14.5); Segmented Neutrophils % 63.8 %; White Blood Count 9.7 K/mcL (4.3-11.1)
[2019-11-02 05:38] LABS: BUN/Creatinine Ratio 29 (6-26); Blood Urea Nitrogen 15 mg/dL (8-23); Calcium 8.2 mg/dL (8.6-10.3); Carbon Dioxide 27 mEq/L (23-29); Chloride 106 mEq/L (98-107); Glucose 172 mg/dL (70-105); Magnesium 1.8 mg/dL (1.6-2.6); Osmolality,Calculated 291 (280-300); Phosphorous 4.1 mg/dL (2.7-4.5); Sodium 138 mEq/L (136-145); eGFR For African Americans > 60 (> 60); eGFR For Non-African Americans > 60 (> 60)
[2019-11-02 05:44] LABS: Anisocytosis 2+ (Not Present); Hypochromasia Present (Not Present); Platelet Estimate Normal (Normal); Reactive Lymphocytes Present (Not Present)
[2019-11-02] MEDS: Insulin LISPRO 300 UNITS/3 ML VIAL SQ SCH ×4 (07:57→20:50)
[2019-11-02] MEDS: Furosemide 40 MG/4 ML VIAL IVP SCH ×2 (07:59→17:14)
[2019-11-02] MEDS: cefTRIAXone 1,000 MG in Water for inj. (sterile) 10 ML IVP SCH (08:01)
[2019-11-02] MEDS: Ranolazine 500 MG TAB.ER.12H PO SCH ×2 (08:04→20:55)
[2019-11-02] MEDS: Gabapentin 400 MG CAPSULE PO SCH ×3 (08:05→20:55)
[2019-11-02] MEDS: Isosorbide MONOnitrate (24 HR) 60 MG TAB.ER.24H PO SCH ×2 (08:05→20:55)
[2019-11-02] MEDS: Aspirin Enteric Coated 81 MG Tablet PO SCH (08:05)
[2019-11-02] MEDS: Metoprolol XL (24 HR) Succ 50 MG TAB.ER.24H PO SCH (08:05)
[2019-11-02] MEDS: Ammonium Lactate 30 APPL/225 GM BOTTLE TP SCH ×2 (08:12→21:11)
[2019-11-02] MEDS: Insulin DETEMIR 100 UNIT/ML X5UNITS SQ SCH ×3 (10:15→20:56)
[2019-11-02] MEDS: Budesonide/Formoterol 160/4.5 1 PUFF INH IH SCH ×2 (10:29→20:13)
[2019-11-02] MEDS: Tiotropium 18 MCG inhalation IH SCH (10:30)
[2019-11-02] MEDS ORDERED: Methyl Salicylate/Menthol 28 GM TUBE TP PRN (12:41)
[2019-11-02 15:37] LABS: % Iron Saturation 7 % (15-50); Iron 25 mcg/dL (50-170); Transferrin 272 mg/dL (203-362)
[2019-11-02 15:55] LABS: Ferritin 17 ng/mL (10-120)
[2019-11-02] MEDS: Acetaminophen 325 MG TABLET PO PRN (17:21)
[2019-11-02] MEDS: Dextrose Gel 15 GM/37.5 ML TUBE PO PRN (19:26)
[2019-11-02] MEDS ORDERED: *HR* Promethazine 25 MG/ML VIAL IVP ONE (20:35)
[2019-11-03] MEDS: Dextrose Gel 15 GM/37.5 ML TUBE PO PRN (02:50)
[2019-11-03 04:15] LABS: BUN/Creatinine Ratio 38 (6-26); Blood Urea Nitrogen 23 mg/dL (8-23); Calcium 8.3 mg/dL (8.6-10.3); Carbon Dioxide 29 mEq/L (23-29); Chloride 106 mEq/L (98-107); Glucose 90 mg/dL (70-105); Osmolality,Calculated 289 (280-300); Sodium 138 mEq/L (136-145); eGFR For African Americans > 60 (> 60); eGFR For Non-African Americans > 60 (> 60)
[2019-11-03] MEDS: *HR* Heparin 5,000 UNIT/ML VIAL SQ SCH ×2 (06:30→16:56)
[2019-11-03] MEDS: Tiotropium 18 MCG inhalation IH SCH (07:55)
[2019-11-03] MEDS: Budesonide/Formoterol 160/4.5 1 PUFF INH IH SCH ×2 (07:56→19:46)
[2019-11-03] MEDS: Gabapentin 400 MG CAPSULE PO SCH ×3 (09:33→20:50)
[2019-11-03] MEDS: Furosemide 40 MG/4 ML VIAL IVP SCH (09:33)
[2019-11-03] MEDS: Ranolazine 500 MG TAB.ER.12H PO SCH ×2 (09:33→20:50)
[2019-11-03] MEDS: Isosorbide MONOnitrate (24 HR) 60 MG TAB.ER.24H PO SCH ×2 (09:34→20:50)
[2019-11-03] MEDS: Aspirin Enteric Coated 81 MG Tablet PO SCH (09:34)
[2019-11-03] MEDS: Metoprolol XL (24 HR) Succ 50 MG TAB.ER.24H PO SCH (09:34)
[2019-11-03] MEDS: Insulin LISPRO 300 UNITS/3 ML VIAL SQ SCH ×4 (09:35→20:51)
[2019-11-03] MEDS: Ammonium Lactate 30 APPL/225 GM BOTTLE TP SCH ×2 (09:36→20:56)
[2019-11-03] MEDS: Insulin DETEMIR 100 UNIT/ML X5UNITS SQ SCH ×2 (09:37→21:52)
[2019-11-03] MEDS: cefTRIAXone 1,000 MG in Water for inj. (sterile) 10 ML IVP SCH (09:38)
[2019-11-03] MEDS: Furosemide 40 MG TABLET PO SCH (16:56)
[2019-11-03] MEDS ORDERED: *HR* Promethazine 25 MG/ML VIAL IVP ONE (23:27)
[2019-11-04] MEDS: *HR* Heparin 5,000 UNIT/ML VIAL SQ SCH (05:54)
[2019-11-04 06:35] LABS: BUN/Creatinine Ratio 40 (6-26); Blood Urea Nitrogen 29 mg/dL (8-23); Calcium 8.7 mg/dL (8.6-10.3); Carbon Dioxide 32 mEq/L (23-29); Chloride 102 mEq/L (98-107); Glucose 168 mg/dL (70-105); Osmolality,Calculated 294 (280-300); Potassium 4.2 mEq/L (3.5-5.1); Sodium 137 mEq/L (136-145); eGFR For African Americans > 60 (> 60); eGFR For Non-African Americans > 60 (> 60)
[2019-11-04] MEDS: Tiotropium 18 MCG inhalation IH SCH (07:43)
[2019-11-04] MEDS: Budesonide/Formoterol 160/4.5 1 PUFF INH IH SCH (07:43)
[2019-11-04] MEDS: Ranolazine 500 MG TAB.ER.12H PO SCH (07:59)
[2019-11-04] MEDS: Furosemide 40 MG TABLET PO SCH (07:59)
[2019-11-04] MEDS: Metoprolol XL (24 HR) Succ 50 MG TAB.ER.24H PO SCH (07:59)
[2019-11-04] MEDS: Aspirin Enteric Coated 81 MG Tablet PO SCH (08:00)
[2019-11-04] MEDS: cefTRIAXone 1,000 MG in Water for inj. (sterile) 10 ML IVP SCH (08:00)
[2019-11-04] MEDS: Isosorbide MONOnitrate (24 HR) 60 MG TAB.ER.24H PO SCH (08:00)
[2019-11-04] MEDS: Gabapentin 400 MG CAPSULE PO SCH (08:00)
[2019-11-04] MEDS: Insulin LISPRO 300 UNITS/3 ML VIAL SQ SCH ×2 (08:08→12:18)
[2019-11-04] MEDS: Ammonium Lactate 30 APPL/225 GM BOTTLE TP SCH (08:08)
[2019-11-04] MEDS: Insulin DETEMIR 100 UNIT/ML X5UNITS SQ SCH (08:09)
[2019-11-04] MEDS ORDERED: Ondansetron 4 MG/2 ML VIAL IVP PRN (11:34)
[2019-11-04 11:50] VITALS: BP 142/63
[2019-11-04] MEDS: Acetaminophen 325 MG TABLET PO PRN (12:30)
== END 2019-11-04 13:10 | disposition home or self-care (01) ==
LOC: EMEROOARM 22:46 → 3BNU 22:46 → SUATTDRO 11-01 03:41 → 3BNU 11-01 04:20
PROVIDERS: ADMIT Internal Medicine; ATTEND Internal Medicine

== ENCOUNTER 2019-12-14 16:19 | Observation (INO) ==
[2019-12-14] MEDS ORDERED: Bumetanide 1 MG/4 ML VIAL IVP ONE ×2 (18:02→21:21)
[2019-12-14 18:11] LABS: Basophils # 0.1 K/mcL (0.0-0.2); Basophils % 0.7 %; Eosinophils # 0.4 K/mcL (0.0-0.6); Eosinophils % 3.2 %; Hematocrit 35.8 % (35.3-44.9); Hemoglobin 9.9 g/dL (11.5-15.4); Immature Granulocytes % 0.9 % (0-4); Lymphocytes # 2.7 K/mcL (0.6-4.6); Lymphocytes % 22.9 %; Mean Corpuscular HGB Conc 27.7 g/dL (31.6-35.5); Mean Corpuscular Hemoglobin 21.2 pg (28.0-33.3); Mean Corpuscular Volume 76.8 fL (83.0-100.0); Mean Platelet Volume 10.9 fL (9.4-12.4); Monocytes # 0.8 K/mcL (0.0-1.3); Monocytes % 6.6 %; Nucleated Red Blood Cells 0.2 /100 WBC (0); Platelet Count 298 K/mcL (140-400); Red Blood Count 4.66 M/mcL (3.82-4.97); Red Cell Distribution Width 20.8 % (11.5-14.5); Segmented Neutrophils % 65.7 %; White Blood Count 11.6 K/mcL (4.3-11.1)
[2019-12-14 18:12] LABS: Neutrophils # 7.6 K/mcL (1.6-8.9)
[2019-12-14 18:20] LABS: BUN/Creatinine Ratio 25 (6-26); Blood Urea Nitrogen 13 mg/dL (8-23); Calcium 8.6 mg/dL (8.6-10.3); Carbon Dioxide 30 mEq/L (23-29); Chloride 104 mEq/L (98-107); Glucose 54 mg/dL (70-105); Magnesium 1.8 mg/dL (1.6-2.6); Osmolality,Calculated 284 (280-300); Potassium 3.9 mEq/L (3.5-5.1); Sodium 138 mEq/L (136-145); eGFR For African Americans > 60 (> 60); eGFR For Non-African Americans > 60 (> 60)
[2019-12-14 18:21] LABS: Troponin I 0.03 ng/mL (< 0.04)
[2019-12-14 18:25] LABS: Platelet Estimate Normal (Normal)
[2019-12-14 18:26] LABS: Hypochromasia Present (Not Present); Poikilocytosis 1+ (Not Present); Stomatocytes 2+ (Not Present)
[2019-12-14] MEDS: Nitroglycerin 0.4 MG TAB.SUBL SL SCH ×2 (18:28→19:52)
[2019-12-14] MEDS ORDERED: Nitroglycerin 0.4 MG TAB.SUBL SL PRN (21:08)
[2019-12-14] MEDS ORDERED: Ondansetron ODT 4 MG TAB.RAPDIS PO PRN (21:08)
[2019-12-14] MEDS ORDERED: methylPREDNISolone 125 MG/2 ML VIAL IVP ONE (21:12)
[2019-12-14] MEDS ORDERED: *HR* Dextrose 50 % in Water (Syg) 50 ML SYRINGE IVP PRN (21:12)
[2019-12-14] MEDS ORDERED: D5% in Water 1,000 ML IVC PRN (21:12)
[2019-12-14] MEDS ORDERED: Naloxone 0.4 MG/ML INJ IVP PRN (21:12)
[2019-12-14] MEDS ORDERED: Albuterol 2.5 MG/3 ML NEBULIZER IH PRN (21:12)
[2019-12-14] MEDS ORDERED: Dextrose Gel 15 GM/37.5 ML TUBE PO PRN ×2 (21:12)
[2019-12-14] MEDS ORDERED: Insulin DETEMIR 100 UNIT/ML X5UNITS SQ SCH (21:15)
[2019-12-14] MEDS ORDERED: Doxycycline 200 MG in 0.9 % Sodium Chloride Mini Bag 100 ML IVPB ONE (21:47)
[2019-12-14] MEDS: Ipratropium/Albuterol Neb 3 ML IH SCH (22:12)
[2019-12-14] MEDS: Insulin DETEMIR 100 UNIT/ML X5UNITS SQ SCH (23:29)
[2019-12-14] MEDS: Isosorbide MONOnitrate (24 HR) 60 MG TAB.ER.24H PO SCH (23:32)
[2019-12-14] MEDS: Gabapentin 400 MG CAPSULE PO SCH (23:32)
[2019-12-14] MEDS: Insulin LISPRO 300 UNITS/3 ML VIAL SQ SCH (23:33)
[2019-12-14] MEDS: Nicotine 14 MG PATCH.TD24 TD SCH (23:34)
[2019-12-15 00:34] LABS: Hematocrit 36.3 % (35.3-44.9)
[2019-12-15 00:35] LABS: Basophils # 0.1 K/mcL (0.0-0.2); Basophils % 0.7 %; Eosinophils # 0.3 K/mcL (0.0-0.6); Hemoglobin 10.3 g/dL (11.5-15.4); Immature Granulocytes % 0.6 % (0-4); Lymphocytes # 2.6 K/mcL (0.6-4.6); Lymphocytes % 21.1 %; Mean Corpuscular HGB Conc 28.4 g/dL (31.6-35.5); Mean Corpuscular Hemoglobin 21.8 pg (28.0-33.3); Mean Corpuscular Volume 76.9 fL (83.0-100.0); Mean Platelet Volume 10.1 fL (9.4-12.4); Monocytes # 0.9 K/mcL (0.0-1.3); Monocytes % 7.3 %; Neutrophils # 8.5 K/mcL (1.6-8.9); Platelet Count 270 K/mcL (140-400); Red Blood Count 4.72 M/mcL (3.82-4.97); Red Cell Distribution Width 21.1 % (11.5-14.5); Segmented Neutrophils % 68.3 %; White Blood Count 12.5 K/mcL (4.3-11.1)
[2019-12-15 01:11] LABS: Hypochromasia Present (Not Present); Platelet Estimate Normal (Normal)
[2019-12-15] MEDS: Ipratropium/Albuterol Neb 3 ML IH SCH ×4 (04:17→22:23)
[2019-12-15 05:13] LABS: Alanine Aminotransferase 9 Units/L (7-52); Albumin 3.1 g/dL (3.5-5.7); Albumin/Globulin Ratio 0.9 (1.1-2.2); Alkaline Phosphatase 97 Units/L (34-104); Aspartate Amino Transferase 12 Units/L (13-39); BUN/Creatinine Ratio 22 (6-26); Bilirubin,Total 0.4 mg/dL (0.3-1.0); Blood Urea Nitrogen 12 mg/dL (8-23); Calcium 8.9 mg/dL (8.6-10.3); Carbon Dioxide 30 mEq/L (23-29); Chloride 104 mEq/L (98-107); Globulin 3.4 g/dL (2.4-3.5); Glucose 109 mg/dL (70-105); Magnesium 1.6 mg/dL (1.6-2.6); Osmolality,Calculated 290 (280-300); Phosphorous 3.8 mg/dL (2.7-4.5); Potassium 4.1 mEq/L (3.5-5.1); Sodium 140 mEq/L (136-145); Total Protein 6.5 g/dL (6.4-8.9); eGFR For African Americans > 60 (> 60); eGFR For Non-African Americans > 60 (> 60)
[2019-12-15] MEDS: Doxycycline 100 MG in 0.9 % Sodium Chloride Mini Bag 100 ML IVPB SCH ×2 (05:18→16:08)
[2019-12-15 05:55] LABS: Bilirubin,Urine Negative (Negative); Blood,Urine Negative (Negative); Clarity,Urine Clear (Clear); Color,Urine Yellow (Yellow); Glucose,Urine (UA) Normal (Normal); Ketones,Urine Negative (Negative); Leukocyte Esterase,Urine Negative (Negative); Nitrite,Urine Negative (Negative); PH,Urine 6.5 pH Units (5.0-8.0); Protein,Urine 100 mg/dL (Neg-Trace); Specific Gravity,Urine 1.012 (1.010-1.025); Urobilinogen,Urine Normal (Normal)
[2019-12-15 05:57] LABS: Bacteria,Urine Few per hpf (None-Few); Hyaline Casts,Urine None Seen per lpf (None-Few); RBC,Urine 0-3 per hpf (0-3); Squamous Epithelial Cell,Urine Few per lpf (None-Few)
[2019-12-15] MEDS: Nitroglycerin 0.4 MG TAB.SUBL SL SCH (07:39)
[2019-12-15] MEDS: Aspirin Enteric Coated 81 MG Tablet PO SCH (07:53)
[2019-12-15] MEDS: Nicotine 14 MG PATCH.TD24 TD SCH (07:53)
[2019-12-15] MEDS: Isosorbide MONOnitrate (24 HR) 60 MG TAB.ER.24H PO SCH ×2 (07:53→20:20)
[2019-12-15] MEDS: Gabapentin 400 MG CAPSULE PO SCH ×3 (07:53→20:20)
[2019-12-15] MEDS: Fenofibrate 54 MG TABLET PO SCH (07:54)
[2019-12-15] MEDS: Insulin DETEMIR 100 UNIT/ML X5UNITS SQ SCH (07:54)
[2019-12-15] MEDS: predniSONE 20 MG TABLET PO SCH (07:54)
[2019-12-15] MEDS: Metoprolol XL (24 HR) Succ 50 MG TAB.ER.24H PO SCH (07:54)
[2019-12-15] MEDS: Insulin LISPRO 300 UNITS/3 ML VIAL SQ SCH ×3 (07:54→16:12)
[2019-12-15] MEDS: Budesonide/Formoterol 160/4.5 1 PUFF INH IH SCH ×2 (10:00→22:22)
[2019-12-15] MEDS: Ranolazine 500 MG TAB.ER.12H PO SCH ×2 (11:53→20:19)
[2019-12-15] MEDS: Furosemide 80 MG in 0.9 % Sodium Chloride 50 ML IVPB SCH (20:52)
[2019-12-15] MEDS ORDERED: Gabapentin 400 MG CAPSULE PO SCH (21:00)
[2019-12-16 01:48] LABS: Hemoglobin 8.9 g/dL (11.5-15.4); Mean Corpuscular HGB Conc 27.8 g/dL (31.6-35.5); Mean Corpuscular Hemoglobin 21.5 pg (28.0-33.3); Mean Corpuscular Volume 77.3 fL (83.0-100.0); Mean Platelet Volume 11.2 fL (9.4-12.4); Platelet Count 273 K/mcL (140-400); Red Blood Count 4.14 M/mcL (3.82-4.97); Red Cell Distribution Width 20.6 % (11.5-14.5); White Blood Count 11.5 K/mcL (4.3-11.1)
[2019-12-16 02:11] LABS: BUN/Creatinine Ratio 31 (6-26); Blood Urea Nitrogen 27 mg/dL (8-23); Calcium 8.8 mg/dL (8.6-10.3); Carbon Dioxide 28 mEq/L (23-29); Chloride 102 mEq/L (98-107); Glucose 177 mg/dL (70-105); Osmolality,Calculated 295 (280-300); Potassium 4.1 mEq/L (3.5-5.1); Sodium 138 mEq/L (136-145); eGFR For African Americans > 60 (> 60); eGFR For Non-African Americans > 60 (> 60)
[2019-12-16] MEDS: Ipratropium/Albuterol Neb 3 ML IH SCH ×4 (03:54→21:43)
[2019-12-16] MEDS: Doxycycline 100 MG in 0.9 % Sodium Chloride Mini Bag 100 ML IVPB SCH (06:35)
[2019-12-16] MEDS: Ranolazine 500 MG TAB.ER.12H PO SCH ×2 (08:10→23:20)
[2019-12-16] MEDS: Isosorbide MONOnitrate (24 HR) 60 MG TAB.ER.24H PO SCH ×2 (08:11→23:20)
[2019-12-16] MEDS: predniSONE 20 MG TABLET PO SCH (08:11)
[2019-12-16] MEDS: Gabapentin 400 MG CAPSULE PO SCH ×3 (08:11→23:20)
[2019-12-16] MEDS: Nicotine 14 MG PATCH.TD24 TD SCH (08:11)
[2019-12-16] MEDS: Fenofibrate 54 MG TABLET PO SCH (08:21)
[2019-12-16] MEDS: Metoprolol XL (24 HR) Succ 50 MG TAB.ER.24H PO SCH (08:21)
[2019-12-16] MEDS: Aspirin Enteric Coated 81 MG Tablet PO SCH (08:21)
[2019-12-16] MEDS: Insulin LISPRO 300 UNITS/3 ML VIAL SQ SCH ×3 (08:23→16:49)
[2019-12-16] MEDS: Furosemide 80 MG in 0.9 % Sodium Chloride 50 ML IVPB SCH (08:28)
[2019-12-16] MEDS: Budesonide/Formoterol 160/4.5 1 PUFF INH IH SCH ×2 (10:30→21:43)
[2019-12-16] MEDS: Furosemide 40 MG TABLET PO SCH (16:49)
[2019-12-16] MEDS: Doxycycline 100 MG CAPSULE PO SCH (23:20)
[2019-12-17] MEDS: Ipratropium/Albuterol Neb 3 ML IH SCH ×2 (03:44→10:55)
[2019-12-17 07:27] VITALS: BP 135/59
[2019-12-17] MEDS: Fenofibrate 54 MG TABLET PO SCH (07:43)
[2019-12-17] MEDS: Isosorbide MONOnitrate (24 HR) 60 MG TAB.ER.24H PO SCH (07:43)
[2019-12-17] MEDS: predniSONE 20 MG TABLET PO SCH (07:43)
[2019-12-17] MEDS: Insulin LISPRO 300 UNITS/3 ML VIAL SQ SCH (07:43)
[2019-12-17] MEDS: Furosemide 40 MG TABLET PO SCH (07:44)
[2019-12-17] MEDS: Ranolazine 500 MG TAB.ER.12H PO SCH (07:44)
[2019-12-17] MEDS: Doxycycline 100 MG CAPSULE PO SCH (07:44)
[2019-12-17] MEDS: Aspirin Enteric Coated 81 MG Tablet PO SCH (07:44)
[2019-12-17] MEDS: Gabapentin 400 MG CAPSULE PO SCH (07:44)
[2019-12-17] MEDS: Metoprolol XL (24 HR) Succ 50 MG TAB.ER.24H PO SCH (07:44)
[2019-12-17] MEDS: Nicotine 14 MG PATCH.TD24 TD SCH (07:45)
[2019-12-17] MEDS: Budesonide/Formoterol 160/4.5 1 PUFF INH IH SCH (10:54)
== END 2019-12-17 11:20 | disposition home or self-care (01) ==
LOC: 2ANU 16:19 → EMEROOARM 16:19 → SUATTDRO 19:50 → 2ANU 20:15
PROVIDERS: ADMIT Internal Medicine; ATTEND Internal Medicine

== ENCOUNTER 2020-01-12 16:06 | Observation (INO) ==
[2020-01-12] MEDS ORDERED: predniSONE 20 MG TABLET PO ONE (16:22)
[2020-01-12] MEDS ORDERED: Ipratropium/Albuterol Neb 3 ML IH ONE (16:22)
[2020-01-12 17:52] LABS: Basophils # 0.1 K/mcL (0.0-0.2); Basophils % 0.6 %; Eosinophils # 0.3 K/mcL (0.0-0.6); Eosinophils % 2.7 %; Hemoglobin 9.6 g/dL (11.5-15.4); Lymphocytes # 2.4 K/mcL (0.6-4.6); Lymphocytes % 20.9 %; Mean Corpuscular HGB Conc 27.4 g/dL (31.6-35.5); Mean Corpuscular Hemoglobin 21.3 pg (28.0-33.3); Mean Corpuscular Volume 77.6 fL (83.0-100.0); Mean Platelet Volume 11.2 fL (9.4-12.4); Monocytes # 0.8 K/mcL (0.0-1.3); Monocytes % 6.6 %; Neutrophils # 7.8 K/mcL (1.6-8.9); Nucleated Red Blood Cells 0.2 /100 WBC (0); Platelet Count 293 K/mcL (140-400); Red Blood Count 4.51 M/mcL (3.82-4.97); Red Cell Distribution Width 20.6 % (11.5-14.5); Segmented Neutrophils % 68.2 %; White Blood Count 11.5 K/mcL (4.3-11.1)
[2020-01-12 18:10] LABS: BUN/Creatinine Ratio 27 (6-26); Blood Urea Nitrogen 14 mg/dL (8-23); Calcium 7.9 mg/dL (8.6-10.3); Carbon Dioxide 25 mEq/L (23-29); Chloride 105 mEq/L (98-107); Glucose 125 mg/dL (70-105); Osmolality,Calculated 286 (280-300); Potassium 4.2 mEq/L (3.5-5.1); Sodium 137 mEq/L (136-145); eGFR For African Americans > 60 (> 60); eGFR For Non-African Americans > 60 (> 60)
[2020-01-12 18:11] LABS: Troponin I < 0.03 ng/mL (< 0.04)
[2020-01-12 18:39] LABS: Platelet Estimate Normal (Normal)
[2020-01-12 18:40] LABS: Hypochromasia Present (Not Present)
[2020-01-12] MEDS ORDERED: *HR* Enoxaparin 40 MG/0.4 ML SYRINGE SQ ONE (18:40)
[2020-01-12] MEDS ORDERED: Furosemide 40 MG/4 ML VIAL IVP ONE (18:40)
[2020-01-12] MEDS ORDERED: *HR* Enoxaparin 100 MG/ML SYRINGE SQ STA (18:45)
[2020-01-12] MEDS ORDERED: Naloxone 0.4 MG/ML INJ IVP PRN (21:21)
[2020-01-12] MEDS ORDERED: Albuterol 2.5 MG/3 ML NEBULIZER IH PRN (21:32)
[2020-01-12] MEDS ORDERED: Ondansetron ODT 4 MG TAB.RAPDIS PO PRN (21:32)
[2020-01-12] MEDS ORDERED: Nitroglycerin 0.4 MG TAB.SUBL SL PRN (21:32)
[2020-01-12] MEDS ORDERED: *HR* Dextrose 50 % in Water (Syg) 50 ML SYRINGE IVP PRN (22:04)
[2020-01-12] MEDS ORDERED: Dextrose Gel 15 GM/37.5 ML TUBE PO PRN ×2 (22:04)
[2020-01-12] MEDS ORDERED: D5% in Water 1,000 ML IVC PRN (22:04)
[2020-01-12] MEDS ORDERED: *HR* Heparin 5,000 UNIT/ML VIAL SQ SCH (22:15)
[2020-01-12] MEDS: Budesonide/Formoterol 160/4.5 1 PUFF INH IH SCH (22:16)
[2020-01-12] MEDS: Nicotine 21 MG PATCH.TD24 TD SCH (23:29)
[2020-01-12] MEDS: Nystatin SUSP 5 ML UD.LIQ PO SCH (23:31)
[2020-01-12] MEDS: Nystatin POWDER 30 GM BOTTLE TP SCH (23:31)
[2020-01-12] MEDS: Aspirin Enteric Coated 81 MG Tablet PO SCH (23:31)
[2020-01-12] MEDS: Insulin LISPRO 300 UNITS/3 ML VIAL SQ SCH (23:32)
[2020-01-13] MEDS: Gabapentin 400 MG CAPSULE PO SCH ×4 (00:09→21:52)
[2020-01-13 03:29] LABS: Alanine Aminotransferase 10 Units/L (7-52); Albumin 2.9 g/dL (3.5-5.7); Albumin/Globulin Ratio 0.9 (1.1-2.2); Alkaline Phosphatase 104 Units/L (34-104); Aspartate Amino Transferase 9 Units/L (13-39); BUN/Creatinine Ratio 25 (6-26); Bilirubin,Total 0.3 mg/dL (0.3-1.0); Blood Urea Nitrogen 15 mg/dL (8-23); Calcium 8.3 mg/dL (8.6-10.3); Carbon Dioxide 25 mEq/L (23-29); Chloride 105 mEq/L (98-107); Globulin 3.2 g/dL (2.4-3.5); Glucose 225 mg/dL (70-105); Magnesium 1.8 mg/dL (1.6-2.6); Osmolality,Calculated 292 (280-300); Potassium 4.5 mEq/L (3.5-5.1); Sodium 137 mEq/L (136-145); Total Protein 6.1 g/dL (6.4-8.9); eGFR For African Americans > 60 (> 60); eGFR For Non-African Americans > 60 (> 60)
[2020-01-13 03:30] LABS: % Iron Saturation 4 % (15-50); Iron 15 mcg/dL (50-170); Transferrin 250 mg/dL (203-362)
[2020-01-13 03:47] LABS: Ferritin 16 ng/mL (10-120)
[2020-01-13] MEDS ORDERED: *HR* Enoxaparin 100 MG/ML SYRINGE SQ SCH (06:00)
[2020-01-13] MEDS: Budesonide/Formoterol 160/4.5 1 PUFF INH IH SCH ×2 (07:53→18:54)
[2020-01-13] MEDS: Tiotropium 18 MCG inhalation IH SCH (07:56)
[2020-01-13] MEDS: Nystatin POWDER 30 GM BOTTLE TP SCH ×2 (08:29→21:53)
[2020-01-13] MEDS: Insulin LISPRO 300 UNITS/3 ML VIAL SQ SCH ×4 (08:29→21:51)
[2020-01-13] MEDS: Nicotine 21 MG PATCH.TD24 TD SCH (08:29)
[2020-01-13] MEDS: Metoprolol XL (24 HR) Succ 50 MG TAB.ER.24H PO SCH (08:30)
[2020-01-13] MEDS: Isosorbide MONOnitrate (24 HR) 60 MG TAB.ER.24H PO SCH ×2 (08:31→21:52)
[2020-01-13] MEDS: Fenofibrate 54 MG TABLET PO SCH (08:31)
[2020-01-13] MEDS: Aspirin Enteric Coated 81 MG Tablet PO SCH (08:31)
[2020-01-13] MEDS: Ranolazine 500 MG TAB.ER.12H PO SCH ×2 (08:31→21:53)
[2020-01-13] MEDS: Nystatin SUSP 5 ML UD.LIQ PO SCH ×4 (08:32→21:52)
[2020-01-13] MEDS ORDERED: Gabapentin 400 MG CAPSULE PO SCH (09:00)
[2020-01-13] MEDS: Stomatitis Mixture 5 ML UDC PO PRN ×2 (12:41→22:23)
[2020-01-13] MEDS: Furosemide 40 MG/4 ML VIAL IVP SCH (17:37)
[2020-01-13] MEDS: *HR* Heparin 5,000 UNIT/ML VIAL SQ SCH (21:50)
[2020-01-14] MEDS: *HR* Heparin 5,000 UNIT/ML VIAL SQ SCH ×2 (05:50→17:28)
[2020-01-14] MEDS: Stomatitis Mixture 5 ML UDC PO PRN ×3 (06:04→21:44)
[2020-01-14] MEDS: Tiotropium 18 MCG inhalation IH SCH (07:25)
[2020-01-14] MEDS: Budesonide/Formoterol 160/4.5 1 PUFF INH IH SCH ×2 (07:25→19:58)
[2020-01-14] MEDS: Aspirin Enteric Coated 81 MG Tablet PO SCH (08:17)
[2020-01-14] MEDS: Gabapentin 400 MG CAPSULE PO SCH ×3 (08:17→21:45)
[2020-01-14] MEDS: Ascorbic Acid 500 MG TABLET PO SCH (08:17)
[2020-01-14] MEDS: Metoprolol XL (24 HR) Succ 50 MG TAB.ER.24H PO SCH (08:17)
[2020-01-14] MEDS: Ranolazine 500 MG TAB.ER.12H PO SCH ×2 (08:17→21:44)
[2020-01-14] MEDS: Isosorbide MONOnitrate (24 HR) 60 MG TAB.ER.24H PO SCH ×2 (08:18→21:45)
[2020-01-14] MEDS: Nystatin SUSP 5 ML UD.LIQ PO SCH ×4 (08:19→21:44)
[2020-01-14] MEDS: Furosemide 40 MG/4 ML VIAL IVP SCH ×2 (08:20→17:27)
[2020-01-14] MEDS: Nicotine 21 MG PATCH.TD24 TD SCH (08:20)
[2020-01-14] MEDS: Insulin LISPRO 300 UNITS/3 ML VIAL SQ SCH ×5 (08:21→21:48)
[2020-01-14] MEDS: Fenofibrate 54 MG TABLET PO SCH (08:40)
[2020-01-14] MEDS: Nystatin POWDER 30 GM BOTTLE TP SCH ×2 (11:59→21:48)
[2020-01-15 02:42] LABS: Immature Granulocytes % 1.1 % (0-4); Red Cell Distribution Width 20.5 % (11.5-14.5)
[2020-01-15 02:43] LABS: Basophils # 0.1 K/mcL (0.0-0.2); Basophils % 0.6 %; Eosinophils # 0.2 K/mcL (0.0-0.6); Eosinophils % 1.9 %; Hematocrit 34.4 % (35.3-44.9); Hemoglobin 9.4 g/dL (11.5-15.4); Immature Platelets 6.1 % (1.1-6.1); Lymphocytes # 2.4 K/mcL (0.6-4.6); Lymphocytes % 27.8 %; Mean Corpuscular HGB Conc 27.3 g/dL (31.6-35.5); Mean Corpuscular Hemoglobin 21.2 pg (28.0-33.3); Mean Corpuscular Volume 77.7 fL (83.0-100.0); Mean Platelet Volume 10.5 fL (9.4-12.4); Monocytes # 0.6 K/mcL (0.0-1.3); Monocytes % 7.3 %; Neutrophils # 5.2 K/mcL (1.6-8.9); Platelet Count 262 K/mcL (140-400); Red Blood Count 4.43 M/mcL (3.82-4.97); Segmented Neutrophils % 61.3 %; White Blood Count 8.5 K/mcL (4.3-11.1)
[2020-01-15 03:02] LABS: BUN/Creatinine Ratio 46 (6-26); Blood Urea Nitrogen 31 mg/dL (8-23); Calcium 8.6 mg/dL (8.6-10.3); Carbon Dioxide 27 mEq/L (23-29); Chloride 103 mEq/L (98-107); Glucose 201 mg/dL (70-105); Osmolality,Calculated 292 (280-300); Potassium 5.3 mEq/L (3.5-5.1); Sodium 135 mEq/L (136-145); eGFR For African Americans > 60 (> 60); eGFR For Non-African Americans > 60 (> 60)
[2020-01-15 03:19] LABS: Anisocytosis 2+ (Not Present); Hypochromasia Present (Not Present); Microcytosis Present (Not Present); Platelet Estimate Normal (Normal); Polychromasia 1+ (Not Present)
[2020-01-15] MEDS: *HR* Heparin 5,000 UNIT/ML VIAL SQ SCH (06:16)
[2020-01-15 07:51] VITALS: BP 174/79
[2020-01-15] MEDS: Tiotropium 18 MCG inhalation IH SCH (08:27)
[2020-01-15] MEDS: Budesonide/Formoterol 160/4.5 1 PUFF INH IH SCH (08:27)
[2020-01-15] MEDS: Nystatin SUSP 5 ML UD.LIQ PO SCH (08:44)
[2020-01-15] MEDS: Nicotine 21 MG PATCH.TD24 TD SCH (08:44)
[2020-01-15] MEDS: Ranolazine 500 MG TAB.ER.12H PO SCH (08:45)
[2020-01-15] MEDS: Metoprolol XL (24 HR) Succ 50 MG TAB.ER.24H PO SCH (08:45)
[2020-01-15] MEDS: Fenofibrate 54 MG TABLET PO SCH (08:46)
[2020-01-15] MEDS: Gabapentin 400 MG CAPSULE PO SCH (08:47)
[2020-01-15] MEDS: Isosorbide MONOnitrate (24 HR) 60 MG TAB.ER.24H PO SCH (08:47)
[2020-01-15] MEDS: Aspirin Enteric Coated 81 MG Tablet PO SCH (08:47)
[2020-01-15] MEDS: Insulin LISPRO 300 UNITS/3 ML VIAL SQ SCH (08:48)
[2020-01-15] MEDS: Furosemide 40 MG/4 ML VIAL IVP SCH (08:49)
[2020-01-15] MEDS: Nystatin POWDER 30 GM BOTTLE TP SCH (09:01)
[2020-01-15] MEDS: Ascorbic Acid 500 MG TABLET PO SCH (09:04)
[2020-01-15] MEDS: Stomatitis Mixture 5 ML UDC PO PRN (09:05)
[2020-01-16] MEDS ORDERED: BUPRENORPHINE TD SCH (07:25)
[2020-01-16] MEDS ORDERED: BUPRENORPHINE TP SCH (21:32)
== END 2020-01-15 10:35 | disposition home or self-care (01) ==
LOC: 2ANU 16:06 → EMEROOARM 16:06 → SUATTDRO 19:33 → 2ANU 20:03
PROVIDERS: ADMIT Internal Medicine; ATTEND Internal Medicine

== ENCOUNTER 2020-02-08 14:33 | Observation (INO) ==
[2020-02-08] MEDS ORDERED: Ipratropium/Albuterol Neb 3 ML IH ONE (14:47)
[2020-02-08] MEDS ORDERED: methylPREDNISolone 125 MG/2 ML VIAL IVP ONE (14:47)
[2020-02-08] MEDS ORDERED: Furosemide 40 MG/4 ML VIAL IVP ONE (15:18)
[2020-02-08] MEDS ORDERED: levoFLOXacin 750 MG/150 ML 750 MG/150 ML BAG IVPB ONE (15:20)
[2020-02-08 15:26] LABS: BUN/Creatinine Ratio 29 (6-26); Blood Urea Nitrogen 17 mg/dL (8-23); Calcium 8.5 mg/dL (8.6-10.3); Carbon Dioxide 25 mEq/L (23-29); Chloride 104 mEq/L (98-107); Glucose 117 mg/dL (70-105); Osmolality,Calculated 281 (280-300); Potassium 4.8 mEq/L (3.5-5.1); Sodium 134 mEq/L (136-145); Troponin I < 0.03 ng/mL (< 0.04); eGFR For African Americans > 60 (> 60); eGFR For Non-African Americans > 60 (> 60)
[2020-02-08 15:35] LABS: Hemoglobin 10.9 g/dL (11.5-15.4); Mean Corpuscular HGB Conc 27.5 g/dL (31.6-35.5); Red Cell Distribution Width 21.5 % (11.5-14.5)
[2020-02-08 15:37] LABS: Hematocrit 39.6 % (35.3-44.9); Immature Platelets 8.6 % (1.1-6.1); Mean Corpuscular Hemoglobin 21.5 pg (28.0-33.3); Mean Corpuscular Volume 78.3 fL (83.0-100.0); Mean Platelet Volume 10.6 fL (9.4-12.4); Platelet Count 297 K/mcL (140-400); Red Blood Count 5.06 M/mcL (3.82-4.97); White Blood Count 12.6 K/mcL (4.3-11.1)
[2020-02-08 15:55] LABS: Bilirubin,Urine Negative (Negative); Blood,Urine Small (Negative); Clarity,Urine Cloudy (Clear); Color,Urine Yellow (Yellow); Glucose,Urine (UA) Normal (Normal); Ketones,Urine Negative (Negative); Leukocyte Esterase,Urine Trace (Negative); Nitrite,Urine Positive (Negative); Protein,Urine >=300 mg/dL (Neg-Trace); Specific Gravity,Urine 1.012 (1.010-1.025); Urobilinogen,Urine Normal (Normal)
[2020-02-08 15:58] LABS: Bacteria,Urine Many per hpf (None-Few); Hyaline Casts,Urine None Seen per lpf (None-Few); Squamous Epithelial Cell,Urine Many per lpf (None-Few)
[2020-02-08 16:07] LABS: Eosinophils # 0.3 K/mcL (0.0-0.6); Lymphocytes # 3.4 K/mcL (0.6-4.6); Monocytes # 0.6 K/mcL (0.0-1.3); Neutrophils # 8.3 K/mcL (1.6-8.9)
[2020-02-08 16:09] LABS: Platelet Estimate Normal (Normal); Reactive Lymphocytes Present (Not Present)
[2020-02-08 16:10] LABS: Anisocytosis 2+ (Not Present); Polychromasia 1+ (Not Present)
[2020-02-08 16:12] LABS: Hypochromasia Present (Not Present)
[2020-02-08] MEDS ORDERED: Naloxone 0.4 MG/ML INJ IVP PRN (16:28)
[2020-02-08] MEDS ORDERED: Ondansetron 4 MG/2 ML VIAL IVP PRN (16:28)
[2020-02-08] MEDS ORDERED: Dextrose Gel 15 GM/37.5 ML TUBE PO PRN ×2 (17:36)
[2020-02-08] MEDS ORDERED: D5% in Water 1,000 ML IVC PRN (17:36)
[2020-02-08] MEDS ORDERED: *HR* Dextrose 50 % in Water (Syg) 50 ML SYRINGE IVP PRN (17:36)
[2020-02-08] MEDS ORDERED: Albuterol 2.5 MG/3 ML NEBULIZER IH SCH (20:00)
[2020-02-08] MEDS: Furosemide 40 MG/4 ML VIAL IVP SCH (20:32)
[2020-02-08] MEDS: Gabapentin 400 MG CAPSULE PO SCH (20:33)
[2020-02-08] MEDS: Insulin DETEMIR 100 UNIT/ML X5UNITS SQ SCH (20:33)
[2020-02-08] MEDS: MethylPREDNISolone 40 MG/ML VIAL IVP SCH (20:33)
[2020-02-08] MEDS: Ranolazine 500 MG TAB.ER.12H PO SCH (20:33)
[2020-02-08] MEDS: Nicotine 21 MG PATCH.TD24 TD SCH (22:04)
[2020-02-09] MEDS: Insulin LISPRO 300 UNITS/3 ML VIAL SQ SCH ×5 (00:37→20:16)
[2020-02-09] MEDS: Nystatin POWDER 30 GM BOTTLE TP SCH ×3 (02:13→22:15)
[2020-02-09 04:12] LABS: BUN/Creatinine Ratio 30 (6-26); Blood Urea Nitrogen 18 mg/dL (8-23); Carbon Dioxide 19 mEq/L (23-29); Chloride 104 mEq/L (98-107); Glucose 186 mg/dL (70-105); Osmolality,Calculated 283 (280-300); Potassium 4.4 mEq/L (3.5-5.1); Sodium 133 mEq/L (136-145); eGFR For African Americans > 60 (> 60); eGFR For Non-African Americans > 60 (> 60)
[2020-02-09] MEDS: *HR* Heparin 5,000 UNIT/ML VIAL SQ SCH ×2 (06:07→18:22)
[2020-02-09 06:13] LABS: Basophils % 0.2 %; Eosinophils # 0.1 K/mcL (0.0-0.6); Eosinophils % 0.6 %; Hematocrit 37.6 % (35.3-44.9); Hemoglobin 10.8 g/dL (11.5-15.4); Immature Granulocytes % 1.2 % (0-4); Immature Platelets 7.9 % (1.1-6.1); Lymphocytes # 1.2 K/mcL (0.6-4.6); Lymphocytes % 11.3 %; Mean Corpuscular HGB Conc 28.7 g/dL (31.6-35.5); Mean Corpuscular Hemoglobin 21.6 pg (28.0-33.3); Mean Corpuscular Volume 75.2 fL (83.0-100.0); Monocytes # 0.4 K/mcL (0.0-1.3); Monocytes % 3.7 %; Nucleated Red Blood Cells 0.3 /100 WBC (0); Platelet Count 276 K/mcL (140-400); Red Cell Distribution Width 20.6 % (11.5-14.5); White Blood Count 10.8 K/mcL (4.3-11.1)
[2020-02-09 06:37] LABS: Platelet Estimate Normal (Normal)
[2020-02-09] MEDS: Ranolazine 500 MG TAB.ER.12H PO SCH ×2 (08:12→20:16)
[2020-02-09] MEDS: Gabapentin 400 MG CAPSULE PO SCH ×3 (08:12→20:16)
[2020-02-09] MEDS: Metoprolol XL (24 HR) Succ 50 MG TAB.ER.24H PO SCH (08:12)
[2020-02-09] MEDS: MethylPREDNISolone 40 MG/ML VIAL IVP SCH ×3 (08:12→22:14)
[2020-02-09] MEDS: Nicotine 21 MG PATCH.TD24 TD SCH (08:13)
[2020-02-09] MEDS: Insulin DETEMIR 100 UNIT/ML X5UNITS SQ SCH ×2 (08:14→20:17)
[2020-02-09] MEDS: Budesonide/Formoterol 160/4.5 1 PUFF INH IH SCH ×2 (11:20→19:58)
[2020-02-09] MEDS: Aspirin Enteric Coated 81 MG Tablet PO SCH (11:36)
[2020-02-09] MEDS: Azithromycin 250 MG TABLET PO SCH (15:26)
[2020-02-09] MEDS: Furosemide 40 MG/4 ML VIAL IVP SCH ×2 (15:27→22:12)
[2020-02-09] MEDS: Magic Mouthwash 10 ML UD Cup PO SCH (22:15)
[2020-02-10 03:52] LABS: BUN/Creatinine Ratio 39 (6-26); Blood Urea Nitrogen 26 mg/dL (8-23); Calcium 8.4 mg/dL (8.6-10.3); Carbon Dioxide 27 mEq/L (23-29); Chloride 103 mEq/L (98-107); Glucose 173 mg/dL (70-105); Osmolality,Calculated 291 (280-300); Potassium 4.4 mEq/L (3.5-5.1); Sodium 136 mEq/L (136-145); eGFR For African Americans > 60 (> 60); eGFR For Non-African Americans > 60 (> 60)
[2020-02-10 04:11] LABS: Ferritin 16 ng/mL (10-120)
[2020-02-10] MEDS: *HR* Heparin 5,000 UNIT/ML VIAL SQ SCH (05:54)
[2020-02-10] MEDS: Budesonide/Formoterol 160/4.5 1 PUFF INH IH SCH (07:27)
[2020-02-10] MEDS: Magic Mouthwash 10 ML UD Cup PO SCH (07:54)
[2020-02-10] MEDS: Nicotine 21 MG PATCH.TD24 TD SCH (07:57)
[2020-02-10] MEDS: Insulin DETEMIR 100 UNIT/ML X5UNITS SQ SCH (07:58)
[2020-02-10] MEDS: Azithromycin 250 MG TABLET PO SCH (07:58)
[2020-02-10] MEDS: Ranolazine 500 MG TAB.ER.12H PO SCH (07:58)
[2020-02-10] MEDS: MethylPREDNISolone 40 MG/ML VIAL IVP SCH (07:58)
[2020-02-10] MEDS: Furosemide 40 MG/4 ML VIAL IVP SCH (07:58)
[2020-02-10] MEDS: Aspirin Enteric Coated 81 MG Tablet PO SCH (07:59)
[2020-02-10] MEDS: Gabapentin 400 MG CAPSULE PO SCH (07:59)
[2020-02-10] MEDS: Metoprolol XL (24 HR) Succ 50 MG TAB.ER.24H PO SCH (07:59)
[2020-02-10] MEDS ORDERED: Nitrofurantoin (BID) 100 MG CAPSULE PO SCH (08:00)
[2020-02-10] MEDS: Insulin LISPRO 300 UNITS/3 ML VIAL SQ SCH ×2 (08:34→12:02)
[2020-02-10 08:37] VITALS: BP 166/76
[2020-02-10] MEDS ORDERED: cefTRIAXone 1,000 MG in Water for inj. (sterile) 10 ML IVP SCH (09:00)
[2020-02-10] MEDS: Nystatin POWDER 30 GM BOTTLE TP SCH (12:00)
[2020-02-13] MEDS ORDERED: BUPRENORPHINE TP SCH (08:00)
== END 2020-02-10 12:52 | disposition home or self-care (01) ==
LOC: 2NENU 14:33 → EMEROOARM 14:33 → SUATTDRO 17:40 → 2NENU 18:50
PROVIDERS: ADMIT Internal Medicine; ATTEND Internal Medicine

== ENCOUNTER 2020-02-19 02:05 | Observation (INO) ==
[2020-02-19 02:47] LABS: Hemoglobin 10.4 g/dL (11.5-15.4)
[2020-02-19 02:48] LABS: Basophils # 0.1 K/mcL (0.0-0.2); Basophils % 0.4 %; Eosinophils # 0.3 K/mcL (0.0-0.6); Eosinophils % 2.2 %; Hematocrit 36.4 % (35.3-44.9); Immature Granulocytes % 1.4 % (0-4); Lymphocytes # 2.5 K/mcL (0.6-4.6); Lymphocytes % 17.8 %; Mean Corpuscular HGB Conc 28.6 g/dL (31.6-35.5); Mean Corpuscular Hemoglobin 22.6 pg (28.0-33.3); Mean Platelet Volume 10.6 fL (9.4-12.4); Monocytes % 6.8 %; Neutrophils # 9.9 K/mcL (1.6-8.9); Platelet Count 260 K/mcL (140-400); Red Blood Count 4.61 M/mcL (3.82-4.97); Red Cell Distribution Width 22.1 % (11.5-14.5); Segmented Neutrophils % 71.4 %; White Blood Count 13.9 K/mcL (4.3-11.1)
[2020-02-19 03:02] LABS: BUN/Creatinine Ratio 31 (6-26); Blood Urea Nitrogen 19 mg/dL (8-23); Calcium 8.1 mg/dL (8.6-10.3); Carbon Dioxide 26 mEq/L (23-29); Chloride 105 mEq/L (98-107); Glucose 233 mg/dL (70-105); Osmolality,Calculated 292 (280-300); Potassium 4.2 mEq/L (3.5-5.1); Sodium 136 mEq/L (136-145); Troponin I < 0.03 ng/mL (< 0.04); eGFR For African Americans > 60 (> 60); eGFR For Non-African Americans > 60 (> 60)
[2020-02-19] MEDS: Nitroglycerin 0.4 MG TAB.SUBL SL PRN ×2 (03:12→03:18)
[2020-02-19] MEDS ORDERED: Isovue-370 500 ML BOTTLE IVP ONE (03:31)
[2020-02-19 03:35] LABS: Hypochromasia Present (Not Present); Platelet Estimate Normal (Normal)
[2020-02-19 03:39] LABS: Albumin 2.6 g/dL (3.5-5.7); Albumin/Globulin Ratio 0.9 (1.1-2.2); Bilirubin,Indirect 0.2 mg/dL (0.0-1.0); Bilirubin,Total 0.2 mg/dL (0.3-1.0); Globulin 2.9 g/dL (2.4-3.5); Total Protein 5.5 g/dL (6.4-8.9)
[2020-02-19] MEDS ORDERED: Acetaminophen 325 MG TABLET PO PRN (08:15)
[2020-02-19] MEDS ORDERED: Naloxone 0.4 MG/ML INJ IVP PRN (08:15)
[2020-02-19] MEDS ORDERED: Ondansetron 4 MG/2 ML VIAL IVP PRN (08:15)
[2020-02-19] MEDS ORDERED: Nitroglycerin 0.4 MG TAB.SUBL SL PRN (08:21)
[2020-02-19] MEDS ORDERED: Ammonium Lactate 30 APPL/225 GM BOTTLE TP PRN (08:21)
[2020-02-19] MEDS ORDERED: Dextrose Gel 15 GM/37.5 ML TUBE PO PRN ×2 (08:52)
[2020-02-19] MEDS ORDERED: *HR* Dextrose 50 % in Water (Vial) 50 ML VIAL IVP PRN (08:52)
[2020-02-19] MEDS ORDERED: D5% in Water 1,000 ML IVC PRN (08:52)
[2020-02-19] MEDS ORDERED: Furosemide 40 MG TABLET PO SCH (09:00)
[2020-02-19] MEDS: Ipratropium/Albuterol Neb 3 ML IH SCH ×3 (11:26→20:22)
[2020-02-19] MEDS: Ascorbic Acid 500 MG TABLET PO SCH (12:39)
[2020-02-19] MEDS: Ranolazine 500 MG TAB.ER.12H PO SCH ×2 (12:40→22:03)
[2020-02-19] MEDS: Gabapentin 400 MG CAPSULE PO SCH ×3 (12:40→22:03)
[2020-02-19] MEDS: Metoprolol XL (24 HR) Succ 50 MG TAB.ER.24H PO SCH (12:40)
[2020-02-19] MEDS: Fenofibrate 54 MG TABLET PO SCH (12:40)
[2020-02-19] MEDS: Isosorbide MONOnitrate (24 HR) 60 MG TAB.ER.24H PO SCH ×2 (12:40→22:03)
[2020-02-19] MEDS: Aspirin Enteric Coated 81 MG Tablet PO SCH (12:40)
[2020-02-19] MEDS: Furosemide 40 MG/4 ML VIAL IVP SCH (12:41)
[2020-02-19] MEDS: Nystatin POWDER 30 GM BOTTLE TP SCH ×2 (12:41→22:16)
[2020-02-19] MEDS: Insulin LISPRO 300 UNITS/3 ML VIAL SQ SCH ×3 (13:03→22:04)
[2020-02-19] MEDS: levoFLOXacin 750 MG/150 ML 750 MG/150 ML BAG IVPB SCH (13:30)
[2020-02-19] MEDS: *HR* Heparin 5,000 UNIT/ML VIAL SQ SCH ×2 (16:50→22:04)
[2020-02-20] MEDS: Ipratropium/Albuterol Neb 3 ML IH SCH ×6 (00:07→20:10)
[2020-02-20] MEDS: *HR* Heparin 5,000 UNIT/ML VIAL SQ SCH ×3 (05:16→20:58)
[2020-02-20 06:36] LABS: Basophils # 0.1 K/mcL (0.0-0.2); Basophils % 0.6 %; Eosinophils # 0.2 K/mcL (0.0-0.6); Eosinophils % 2.3 %; Hematocrit 34.8 % (35.3-44.9); Hemoglobin 9.9 g/dL (11.5-15.4); Immature Granulocytes % 1.3 % (0-4); Lymphocytes # 2.6 K/mcL (0.6-4.6); Lymphocytes % 25.8 %; Mean Corpuscular HGB Conc 28.4 g/dL (31.6-35.5); Mean Corpuscular Hemoglobin 22.6 pg (28.0-33.3); Mean Corpuscular Volume 79.5 fL (83.0-100.0); Monocytes # 0.8 K/mcL (0.0-1.3); Monocytes % 7.8 %; Platelet Count 259 K/mcL (140-400); Red Blood Count 4.38 M/mcL (3.82-4.97); Segmented Neutrophils % 62.2 %; White Blood Count 10.2 K/mcL (4.3-11.1)
[2020-02-20 06:40] LABS: Neutrophils # 6.3 K/mcL (1.6-8.9)
[2020-02-20 06:57] LABS: BUN/Creatinine Ratio 23 (6-26); Blood Urea Nitrogen 18 mg/dL (8-23); Calcium 8.3 mg/dL (8.6-10.3); Carbon Dioxide 28 mEq/L (23-29); Chloride 105 mEq/L (98-107); Glucose 121 mg/dL (70-105); Magnesium 1.8 mg/dL (1.6-2.6); Osmolality,Calculated 289 (280-300); Potassium 4.4 mEq/L (3.5-5.1); Sodium 138 mEq/L (136-145); eGFR For African Americans > 60 (> 60); eGFR For Non-African Americans > 60 (> 60)
[2020-02-20 07:02] LABS: % Iron Saturation 9 % (15-50); Iron 29 mcg/dL (50-170); Transferrin 234 mg/dL (203-362)
[2020-02-20 07:13] LABS: Anisocytosis 2+ (Not Present); Macrocytosis Present (Not Present); Microcytosis Present (Not Present)
[2020-02-20 07:14] LABS: Hypochromasia Present (Not Present); Platelet Estimate Normal (Normal)
[2020-02-20 07:15] LABS: Ferritin 15 ng/mL (10-120)
[2020-02-20 07:20] LABS: Folate 7.4 ng/mL (3.0-16.0)
[2020-02-20] MEDS: Insulin LISPRO 300 UNITS/3 ML VIAL SQ SCH ×4 (07:56→20:54)
[2020-02-20] MEDS ORDERED: BUPRENORPHINE TP SCH (09:00)
[2020-02-20] MEDS: Nicotine 14 MG PATCH.TD24 TD SCH (09:13)
[2020-02-20] MEDS: Furosemide 40 MG/4 ML VIAL IVP SCH (09:13)
[2020-02-20] MEDS: levoFLOXacin 750 MG/150 ML 750 MG/150 ML BAG IVPB SCH (09:13)
[2020-02-20] MEDS: Isosorbide MONOnitrate (24 HR) 60 MG TAB.ER.24H PO SCH ×2 (09:14→20:55)
[2020-02-20] MEDS: Aspirin Enteric Coated 81 MG Tablet PO SCH (09:14)
[2020-02-20] MEDS: Gabapentin 400 MG CAPSULE PO SCH ×3 (09:14→20:57)
[2020-02-20] MEDS: Ranolazine 500 MG TAB.ER.12H PO SCH ×2 (09:14→20:57)
[2020-02-20] MEDS: Metoprolol XL (24 HR) Succ 50 MG TAB.ER.24H PO SCH (09:14)
[2020-02-20] MEDS: Fenofibrate 54 MG TABLET PO SCH (09:15)
[2020-02-20] MEDS: Ascorbic Acid 500 MG TABLET PO SCH ×2 (09:15→20:57)
[2020-02-20] MEDS: Nystatin POWDER 30 GM BOTTLE TP SCH ×2 (09:15→20:59)
[2020-02-20] MEDS: Nystatin SUSP 5 ML UD.LIQ PO PRN (17:38)
[2020-02-20] MEDS: Insulin DETEMIR 100 UNIT/ML X5UNITS SQ SCH (20:55)
[2020-02-21] MEDS: Ipratropium/Albuterol Neb 3 ML IH SCH ×3 (00:01→07:18)
[2020-02-21] MEDS: Nystatin SUSP 5 ML UD.LIQ PO PRN (01:38)
[2020-02-21] MEDS: *HR* Heparin 5,000 UNIT/ML VIAL SQ SCH (05:35)
[2020-02-21 07:04] VITALS: BP 139/67
[2020-02-21] MEDS: Insulin LISPRO 300 UNITS/3 ML VIAL SQ SCH (08:57)
[2020-02-21] MEDS: Metoprolol XL (24 HR) Succ 50 MG TAB.ER.24H PO SCH (08:58)
[2020-02-21] MEDS: Fenofibrate 54 MG TABLET PO SCH (08:58)
[2020-02-21] MEDS: Isosorbide MONOnitrate (24 HR) 60 MG TAB.ER.24H PO SCH (08:58)
[2020-02-21] MEDS: Furosemide 40 MG/4 ML VIAL IVP SCH (08:58)
[2020-02-21] MEDS: Aspirin Enteric Coated 81 MG Tablet PO SCH (08:59)
[2020-02-21] MEDS: Ascorbic Acid 500 MG TABLET PO SCH ×2 (08:59)
[2020-02-21] MEDS: Ranolazine 500 MG TAB.ER.12H PO SCH (08:59)
[2020-02-21] MEDS: Nystatin POWDER 30 GM BOTTLE TP SCH (09:00)
[2020-02-21] MEDS: Nicotine 14 MG PATCH.TD24 TD SCH (09:00)
[2020-02-21] MEDS: Gabapentin 400 MG CAPSULE PO SCH (09:00)
[2020-02-21] MEDS: Insulin DETEMIR 100 UNIT/ML X5UNITS SQ SCH (09:05)
[2020-02-21] MEDS ORDERED: Ipratropium/Albuterol Neb 3 ML IH PRN (12:00)
== END 2020-02-21 11:32 | disposition home or self-care (01) ==
LOC: SUATTDRO → EMEROOARM 02:05 → 3BNU 02:05
PROVIDERS: ADMIT Pharmacist; ATTEND Pharmacist

== ENCOUNTER 2020-03-06 19:33 | Observation (INO) ==
[2020-03-06 20:19] LABS: Basophils # 0.1 K/mcL (0.0-0.2); Basophils % 0.7 %; Eosinophils # 0.3 K/mcL (0.0-0.6); Eosinophils % 2.2 %; Hematocrit 36.9 % (35.3-44.9); Hemoglobin 10.8 g/dL (11.5-15.4); Immature Granulocytes % 1.2 % (0-4); Lymphocytes # 2.4 K/mcL (0.6-4.6); Lymphocytes % 18.9 %; Mean Corpuscular HGB Conc 29.3 g/dL (31.6-35.5); Mean Corpuscular Hemoglobin 23.6 pg (28.0-33.3); Mean Corpuscular Volume 80.6 fL (83.0-100.0); Mean Platelet Volume 10.3 fL (9.4-12.4); Monocytes # 0.8 K/mcL (0.0-1.3); Monocytes % 6.6 %; Neutrophils # 8.8 K/mcL (1.6-8.9); Platelet Count 288 K/mcL (140-400); Red Blood Count 4.58 M/mcL (3.82-4.97); Red Cell Distribution Width 22.5 % (11.5-14.5); Segmented Neutrophils % 70.4 %; White Blood Count 12.5 K/mcL (4.3-11.1)
[2020-03-06 20:22] LABS: Prothrombin Time 11.1 Seconds (9.4-12.1)
[2020-03-06 20:34] LABS: BUN/Creatinine Ratio 26 (6-26); Blood Urea Nitrogen 17 mg/dL (8-23); Calcium 8.2 mg/dL (8.6-10.3); Carbon Dioxide 27 mEq/L (23-29); Chloride 106 mEq/L (98-107); Glucose 172 mg/dL (70-105); Osmolality,Calculated 290 (280-300); Potassium 4.2 mEq/L (3.5-5.1); Sodium 137 mEq/L (136-145); Troponin I < 0.03 ng/mL (< 0.04); eGFR For African Americans > 60 (> 60); eGFR For Non-African Americans > 60 (> 60)
[2020-03-06] MEDS ORDERED: Furosemide 40 MG/4 ML VIAL IVP ONE (21:47)
[2020-03-06] MEDS ORDERED: Aspirin 325 MG TABLET PO ONE (21:50)
[2020-03-07] MEDS ORDERED: Naloxone 0.4 MG/ML INJ IVP PRN (01:08)
[2020-03-07] MEDS ORDERED: D5% in Water 1,000 ML IVC PRN (01:12)
[2020-03-07] MEDS ORDERED: Dextrose Gel 15 GM/37.5 ML TUBE PO PRN ×2 (01:12)
[2020-03-07] MEDS: *HR* Dextrose 50 % in Water (Vial) 50 ML VIAL IVP PRN ×2 (05:18→05:20)
[2020-03-07] MEDS: *HR* Heparin 5,000 UNIT/ML VIAL SQ SCH ×2 (05:18→16:39)
[2020-03-07] MEDS: Insulin LISPRO 300 UNITS/3 ML VIAL SQ SCH ×3 (05:21→16:39)
[2020-03-07] MEDS ORDERED: Regadenoson 0.4 MG/5 ML SYRINGE IVP ONE (06:12)
[2020-03-07] MEDS ORDERED: Insulin LISPRO 300 UNITS/3 ML VIAL SQ SCH ×3 (07:30→21:00)
[2020-03-07] MEDS: Furosemide 40 MG/4 ML VIAL IVP SCH (07:59)
[2020-03-07 09:15] LABS: Hematocrit 40.5 % (35.3-44.9); Hemoglobin 11.6 g/dL (11.5-15.4); Mean Corpuscular HGB Conc 28.6 g/dL (31.6-35.5); Mean Corpuscular Volume 80.2 fL (83.0-100.0); Mean Platelet Volume 10.9 fL (9.4-12.4); Platelet Count 323 K/mcL (140-400); Red Blood Count 5.05 M/mcL (3.82-4.97); Red Cell Distribution Width 22.6 % (11.5-14.5); White Blood Count 11.9 K/mcL (4.3-11.1)
[2020-03-07 09:29] LABS: BUN/Creatinine Ratio 25 (6-26); Blood Urea Nitrogen 14 mg/dL (8-23); Calcium 8.6 mg/dL (8.6-10.3); Carbon Dioxide 29 mEq/L (23-29); Chloride 106 mEq/L (98-107); Glucose 88 mg/dL (70-105); Osmolality,Calculated 290 (280-300); Potassium 4.3 mEq/L (3.5-5.1); Sodium 140 mEq/L (136-145); Troponin I < 0.03 ng/mL (< 0.04); eGFR For African Americans > 60 (> 60); eGFR For Non-African Americans > 60 (> 60)
[2020-03-07] MEDS ORDERED: *HR* HYDROcodone/Acet 5/325 mg TABLET PO ONE (13:55)
[2020-03-07] MEDS ORDERED: Nitroglycerin 0.4 MG TAB.SUBL SL PRN (13:58)
[2020-03-07] MEDS ORDERED: Ammonium Lactate 30 APPL/225 GM BOTTLE TP PRN (13:58)
[2020-03-07] MEDS: Gabapentin 400 MG CAPSULE PO SCH ×2 (15:12→20:23)
[2020-03-07] MEDS ORDERED: Albuterol 2.5 MG/3 ML NEBULIZER IH PRN (17:00)
[2020-03-07] MEDS: Ranolazine 500 MG TAB.ER.12H PO SCH (20:23)
[2020-03-07] MEDS ORDERED: Furosemide 40 MG TABLET PO SCH (21:00)
[2020-03-07] MEDS: Budesonide/Formoterol 160/4.5 1 PUFF INH IH SCH (22:04)
[2020-03-08] MEDS: *HR* Heparin 5,000 UNIT/ML VIAL SQ SCH (04:59)
[2020-03-08] MEDS: Insulin LISPRO 300 UNITS/3 ML VIAL SQ SCH ×2 (07:56→12:28)
[2020-03-08] MEDS ORDERED: Aspirin Enteric Coated 81 MG Tablet PO SCH (09:00)
[2020-03-08] MEDS ORDERED: Ascorbic Acid 500 MG TABLET PO SCH (09:00)
[2020-03-08] MEDS ORDERED: Tiotropium 18 MCG inhalation IH SCH (10:00)
[2020-03-08] MEDS: Budesonide/Formoterol 160/4.5 1 PUFF INH IH SCH (10:25)
[2020-03-08 12:15] VITALS: BP 150/93
[2020-03-08] MEDS: Gabapentin 400 MG CAPSULE PO SCH (12:22)
[2020-03-08] MEDS: Ranolazine 500 MG TAB.ER.12H PO SCH (12:22)
[2020-03-08] MEDS: Furosemide 40 MG/4 ML VIAL IVP SCH (12:24)
[2020-03-12] MEDS ORDERED: BUPRENORPHINE TP SCH (13:58)
== END 2020-03-08 14:07 | disposition home or self-care (01) ==
LOC: EMEROOARM 19:33 → 3BNU 19:33 → SUATTDRO 22:47 → 3BNU 23:16
PROVIDERS: ADMIT Internal Medicine; ATTEND Family Medicine

== ENCOUNTER 2020-05-06 12:06 | Observation (INO) ==
[2020-05-06] MEDS ORDERED: Isovue-370 500 ML BOTTLE IVP ONE (12:46)
[2020-05-06 13:35] LABS: INR 0.9; Prothrombin Time 10.5 Seconds (9.4-12.1)
[2020-05-06 13:43] LABS: Alanine Aminotransferase 7 Units/L (7-52); Albumin 2.6 g/dL (3.5-5.7); Albumin/Globulin Ratio 0.8 (1.1-2.2); Alkaline Phosphatase 89 Units/L (34-104); Aspartate Amino Transferase 9 Units/L (13-39); BUN/Creatinine Ratio 36 (6-26); Bilirubin,Total 0.2 mg/dL (0.3-1.0); Blood Urea Nitrogen 24 mg/dL (8-23); Calcium 8.3 mg/dL (8.6-10.3); Carbon Dioxide 28 mEq/L (23-29); Chloride 107 mEq/L (98-107); Globulin 3.2 g/dL (2.4-3.5); Glucose 115 mg/dL (70-105); Osmolality,Calculated 289 (280-300); Potassium 4.6 mEq/L (3.5-5.1); Sodium 137 mEq/L (136-145); Total Protein 5.8 g/dL (6.4-8.9); eGFR For African Americans > 60 (> 60); eGFR For Non-African Americans > 60 (> 60)
[2020-05-06 13:45] LABS: Basophils % 0.8 %; Red Blood Count 4.65 M/mcL (3.82-4.97)
[2020-05-06 13:47] LABS: Basophils # 0.1 K/mcL (0.0-0.2); Eosinophils # 0.3 K/mcL (0.0-0.6); Eosinophils % 3.2 %; Hematocrit 38.3 % (35.3-44.9); Hemoglobin 10.9 g/dL (11.5-15.4); Lymphocytes # 2.3 K/mcL (0.6-4.6); Lymphocytes % 24.3 %; Mean Corpuscular HGB Conc 28.5 g/dL (31.6-35.5); Mean Corpuscular Hemoglobin 23.4 pg (28.0-33.3); Mean Corpuscular Volume 82.4 fL (83.0-100.0); Mean Platelet Volume 11.1 fL (9.4-12.4); Monocytes # 0.6 K/mcL (0.0-1.3); Monocytes % 6.6 %; Platelet Count 248 K/mcL (140-400); Red Cell Distribution Width 21.7 % (11.5-14.5); Segmented Neutrophils % 64.1 %; White Blood Count 9.6 K/mcL (4.3-11.1)
[2020-05-06 14:05] LABS: Neutrophils # 6.2 K/mcL (1.6-8.9)
[2020-05-06 14:07] LABS: Hypochromasia Present (Not Present); Platelet Estimate Normal (Normal)
[2020-05-06] MEDS ORDERED: Piperacillin/Tazobactam 3.375 GM in 0.9 % Sodium Chloride Mini Bag 100 ML IVPB ONE (16:38)
[2020-05-06] MEDS ORDERED: Vancomycin 1,500 MG/265 ML IV.SOLN IVPB ONE (16:45)
[2020-05-06] MEDS ORDERED: MOM Conc 10 ML UD.LIQ PO PRN (16:54)
[2020-05-06] MEDS ORDERED: *HR* Promethazine 25 MG/ML VIAL IVP PRN (16:54)
[2020-05-06] MEDS ORDERED: Mag Hydrox/Al Hydrox/Simeth 30 ML UDC PO PRN (16:54)
[2020-05-06] MEDS ORDERED: *HR* HYDROcodone/Acet 5/325 mg TABLET PO PRN (16:54)
[2020-05-06] MEDS ORDERED: Naloxone 0.4 MG/ML INJ IVP PRN (16:54)
[2020-05-06] MEDS ORDERED: Acetaminophen 325 MG TABLET PO PRN (16:54)
[2020-05-06] MEDS ORDERED: *HR* Dextrose 50 % in Water (Vial) 50 ML VIAL IVP PRN (16:57)
[2020-05-06] MEDS ORDERED: Nitroglycerin 0.4 MG TAB.SUBL SL PRN (16:57)
[2020-05-06] MEDS ORDERED: Dextrose Gel 15 GM/37.5 ML TUBE PO PRN ×2 (16:57)
[2020-05-06] MEDS ORDERED: D5% in Water 1,000 ML IVC PRN (16:57)
[2020-05-06] MEDS: Furosemide 40 MG TABLET PO SCH (18:16)
[2020-05-06] MEDS: *HR* Heparin 5,000 UNIT/ML VIAL SQ SCH (18:17)
[2020-05-06] MEDS: Ranolazine 500 MG TAB.ER.12H PO SCH (19:54)
[2020-05-06] MEDS: Gabapentin 400 MG CAPSULE PO SCH (19:54)
[2020-05-06] MEDS: Isosorbide MONOnitrate (24 HR) 60 MG TAB.ER.24H PO SCH (19:55)
[2020-05-06] MEDS: Insulin LISPRO 300 UNITS/3 ML VIAL SQ SCH (20:27)
[2020-05-06] MEDS: Insulin DETEMIR 100 UNIT/ML X5UNITS SQ SCH (20:27)
[2020-05-06] MEDS: Budesonide/Formoterol 160/4.5 1 PUFF INH IH SCH (21:27)
[2020-05-06] MEDS ORDERED: Albuterol 2.5 MG/3 ML NEBULIZER IH PRN (23:00)
[2020-05-06] MEDS: Piperacillin/Tazobactam 3.375 GM in 0.9 % Sodium Chloride Mini Bag 100 ML IVPB SCH (23:18)
[2020-05-07 03:20] LABS: BUN/Creatinine Ratio 27 (6-26); Blood Urea Nitrogen 21 mg/dL (8-23); Calcium 8.1 mg/dL (8.6-10.3); Carbon Dioxide 27 mEq/L (23-29); Chloride 107 mEq/L (98-107); Glucose 124 mg/dL (70-105); Osmolality,Calculated 290 (280-300); Potassium 4.4 mEq/L (3.5-5.1); Sodium 138 mEq/L (136-145); eGFR For African Americans > 60 (> 60); eGFR For Non-African Americans > 60 (> 60)
[2020-05-07 03:33] LABS: Basophils # 0.1 K/mcL (0.0-0.2); Basophils % 0.8 %; Eosinophils # 0.3 K/mcL (0.0-0.6); Eosinophils % 2.7 %; Hemoglobin 10.4 g/dL (11.5-15.4); Immature Granulocytes % 0.7 % (0-4); Immature Platelets 9.6 % (1.1-6.1); Lymphocytes # 2.6 K/mcL (0.6-4.6); Lymphocytes % 24.2 %; Mean Corpuscular HGB Conc 28.1 g/dL (31.6-35.5); Mean Corpuscular Hemoglobin 22.9 pg (28.0-33.3); Mean Corpuscular Volume 81.5 fL (83.0-100.0); Mean Platelet Volume 10.8 fL (9.4-12.4); Monocytes # 0.8 K/mcL (0.0-1.3); Monocytes % 7.2 %; Neutrophils # 6.9 K/mcL (1.6-8.9); Platelet Count 207 K/mcL (140-400); Red Blood Count 4.54 M/mcL (3.82-4.97); Red Cell Distribution Width 21.7 % (11.5-14.5); Segmented Neutrophils % 64.4 %; White Blood Count 10.7 K/mcL (4.3-11.1)
[2020-05-07 04:01] LABS: Platelet Estimate Normal (Normal)
[2020-05-07 04:02] LABS: Hypochromasia Present (Not Present)
[2020-05-07] MEDS: *HR* Heparin 5,000 UNIT/ML VIAL SQ SCH ×2 (04:48→17:34)
[2020-05-07] MEDS ORDERED: Vancomycin 1,500 MG/265 ML IV.SOLN IVPB SCH (06:00)
[2020-05-07] MEDS: Insulin LISPRO 300 UNITS/3 ML VIAL SQ SCH ×4 (07:57→20:16)
[2020-05-07] MEDS: Metoprolol XL (24 HR) Succ 50 MG TAB.ER.24H PO SCH (08:02)
[2020-05-07] MEDS: Ranolazine 500 MG TAB.ER.12H PO SCH ×2 (08:02→20:15)
[2020-05-07] MEDS: Gabapentin 400 MG CAPSULE PO SCH ×3 (08:03→20:15)
[2020-05-07] MEDS: Aspirin Enteric Coated 81 MG Tablet PO SCH (08:03)
[2020-05-07] MEDS: Isosorbide MONOnitrate (24 HR) 60 MG TAB.ER.24H PO SCH ×2 (08:04→20:16)
[2020-05-07] MEDS: Furosemide 40 MG TABLET PO SCH ×2 (08:04→17:34)
[2020-05-07] MEDS: Piperacillin/Tazobactam 3.375 GM in 0.9 % Sodium Chloride Mini Bag 100 ML IVPB SCH ×3 (08:04→23:29)
[2020-05-07] MEDS: Budesonide/Formoterol 160/4.5 1 PUFF INH IH SCH ×2 (10:45→21:27)
[2020-05-07] MEDS: Tiotropium 18 MCG inhalation IH SCH (10:45)
[2020-05-07] MEDS: Ondansetron 4 MG/2 ML VIAL IVP PRN (11:23)
[2020-05-07] MEDS: Insulin DETEMIR 100 UNIT/ML X5UNITS SQ SCH (20:16)
[2020-05-08] MEDS: *HR* Heparin 5,000 UNIT/ML VIAL SQ SCH ×2 (05:17→17:19)
[2020-05-08 05:30] LABS: Hemoglobin 9.9 g/dL (11.5-15.4)
[2020-05-08 05:32] LABS: Basophils # 0.1 K/mcL (0.0-0.2); Eosinophils # 0.3 K/mcL (0.0-0.6); Eosinophils % 3.4 %; Hematocrit 35.3 % (35.3-44.9); Lymphocytes # 2.8 K/mcL (0.6-4.6); Mean Corpuscular Hemoglobin 23.4 pg (28.0-33.3); Mean Corpuscular Volume 83.5 fL (83.0-100.0); Mean Platelet Volume 11.1 fL (9.4-12.4); Monocytes # 0.6 K/mcL (0.0-1.3); Monocytes % 7.7 %; Neutrophils # 4.4 K/mcL (1.6-8.9); Platelet Count 242 K/mcL (140-400); Red Blood Count 4.23 M/mcL (3.82-4.97); Red Cell Distribution Width 21.7 % (11.5-14.5); Segmented Neutrophils % 52.9 %; White Blood Count 8.3 K/mcL (4.3-11.1)
[2020-05-08 05:51] LABS: BUN/Creatinine Ratio 24 (6-26); Blood Urea Nitrogen 25 mg/dL (8-23); Calcium 8.3 mg/dL (8.6-10.3); Carbon Dioxide 30 mEq/L (23-29); Chloride 107 mEq/L (98-107); Glucose 193 mg/dL (70-105); Osmolality,Calculated 300 (280-300); Potassium 4.4 mEq/L (3.5-5.1); Sodium 140 mEq/L (136-145); eGFR For African Americans > 60 (> 60); eGFR For Non-African Americans 53 (> 60)
[2020-05-08 06:39] LABS: Hypochromasia Present (Not Present); Platelet Estimate Normal (Normal)
[2020-05-08] MEDS: Piperacillin/Tazobactam 3.375 GM in 0.9 % Sodium Chloride Mini Bag 100 ML IVPB SCH ×3 (07:46→23:28)
[2020-05-08] MEDS: Metoprolol XL (24 HR) Succ 50 MG TAB.ER.24H PO SCH (07:47)
[2020-05-08] MEDS: Gabapentin 400 MG CAPSULE PO SCH ×3 (07:47→20:11)
[2020-05-08] MEDS: Ranolazine 500 MG TAB.ER.12H PO SCH ×2 (07:48→20:11)
[2020-05-08] MEDS: Furosemide 40 MG TABLET PO SCH ×2 (07:48→16:01)
[2020-05-08] MEDS: Isosorbide MONOnitrate (24 HR) 60 MG TAB.ER.24H PO SCH ×2 (07:48→20:11)
[2020-05-08] MEDS: Aspirin Enteric Coated 81 MG Tablet PO SCH (07:49)
[2020-05-08] MEDS: Tiotropium 18 MCG inhalation IH SCH (07:55)
[2020-05-08] MEDS: Budesonide/Formoterol 160/4.5 1 PUFF INH IH SCH ×2 (07:55→19:49)
[2020-05-08] MEDS: Insulin LISPRO 300 UNITS/3 ML VIAL SQ SCH ×4 (07:58→20:16)
[2020-05-08] MEDS: Ondansetron 4 MG/2 ML VIAL IVP PRN (10:02)
[2020-05-08] MEDS: *HR* HYDROcodone/Acet 5/325 mg TABLET PO PRN (20:11)
[2020-05-08] MEDS: Insulin DETEMIR 100 UNIT/ML X5UNITS SQ SCH (20:11)
[2020-05-09] MEDS: *HR* Heparin 5,000 UNIT/ML VIAL SQ SCH (05:09)
[2020-05-09] MEDS: *HR* HYDROcodone/Acet 5/325 mg TABLET PO PRN (05:09)
[2020-05-09 05:29] LABS: Basophils % 0.8 %; Immature Granulocytes % 0.8 % (0-4); Mean Platelet Volume 11.1 fL (9.4-12.4)
[2020-05-09 05:31] LABS: Basophils # 0.1 K/mcL (0.0-0.2); Eosinophils # 0.3 K/mcL (0.0-0.6); Eosinophils % 3.4 %; Hematocrit 35.9 % (35.3-44.9); Lymphocytes # 2.6 K/mcL (0.6-4.6); Lymphocytes % 28.1 %; Mean Corpuscular HGB Conc 27.9 g/dL (31.6-35.5); Mean Corpuscular Volume 82.7 fL (83.0-100.0); Monocytes # 0.6 K/mcL (0.0-1.3); Monocytes % 6.7 %; Neutrophils # 5.5 K/mcL (1.6-8.9); Platelet Count 252 K/mcL (140-400); Red Blood Count 4.34 M/mcL (3.82-4.97); Segmented Neutrophils % 60.2 %; White Blood Count 9.1 K/mcL (4.3-11.1)
[2020-05-09 05:51] LABS: BUN/Creatinine Ratio 30 (6-26); Blood Urea Nitrogen 24 mg/dL (8-23); Calcium 8.3 mg/dL (8.6-10.3); Carbon Dioxide 27 mEq/L (23-29); Chloride 103 mEq/L (98-107); Glucose 116 mg/dL (70-105); Osmolality,Calculated 291 (280-300); Potassium 4.4 mEq/L (3.5-5.1); Sodium 138 mEq/L (136-145); eGFR For African Americans > 60 (> 60); eGFR For Non-African Americans > 60 (> 60)
[2020-05-09 05:52] LABS: Magnesium 1.6 mg/dL (1.6-2.6); Phosphorous 4.1 mg/dL (2.7-4.5)
[2020-05-09 06:22] LABS: Anisocytosis 1+ (Not Present); Hypochromasia Present (Not Present); Platelet Estimate Normal (Normal)
[2020-05-09] MEDS: Tiotropium 18 MCG inhalation IH SCH (07:44)
[2020-05-09] MEDS: Budesonide/Formoterol 160/4.5 1 PUFF INH IH SCH (07:44)
[2020-05-09 07:51] VITALS: BP 144/81
[2020-05-09] MEDS: Metoprolol XL (24 HR) Succ 50 MG TAB.ER.24H PO SCH (10:27)
[2020-05-09] MEDS: Gabapentin 400 MG CAPSULE PO SCH (10:27)
[2020-05-09] MEDS: Insulin LISPRO 300 UNITS/3 ML VIAL SQ SCH ×2 (10:27→12:15)
[2020-05-09] MEDS: Ranolazine 500 MG TAB.ER.12H PO SCH (10:27)
[2020-05-09] MEDS: Isosorbide MONOnitrate (24 HR) 60 MG TAB.ER.24H PO SCH (10:27)
[2020-05-09] MEDS: Furosemide 40 MG TABLET PO SCH (10:28)
[2020-05-09] MEDS: Aspirin Enteric Coated 81 MG Tablet PO SCH (10:28)
[2020-05-09] MEDS: Piperacillin/Tazobactam 3.375 GM in 0.9 % Sodium Chloride Mini Bag 100 ML IVPB SCH (10:32)
[2020-05-10] MEDS ORDERED: BUPRENORPHINE TP SCH (16:57)
== END 2020-05-09 14:56 | disposition home or self-care (01) ==
LOC: 3ANU 12:06 → EMEROOARM 12:06 → SUATTDRO 17:34 → 3ANU 17:39
PROVIDERS: ADMIT Internal Medicine; ATTEND Family Medicine

== ENCOUNTER 2020-05-20 15:14 | Inpatient (IN) ==
[2020-05-20 16:59] LABS: Basophils # 0.1 K/mcL (0.0-0.2); Basophils % 0.8 %; Eosinophils # 0.3 K/mcL (0.0-0.6); Eosinophils % 2.1 %; Hematocrit 42.2 % (35.3-44.9); Hemoglobin 12.6 g/dL (11.5-15.4); Immature Granulocytes % 0.7 % (0-4); Lymphocytes # 3.6 K/mcL (0.6-4.6); Lymphocytes % 28.5 %; Mean Corpuscular HGB Conc 29.9 g/dL (31.6-35.5); Mean Corpuscular Hemoglobin 24.1 pg (28.0-33.3); Mean Corpuscular Volume 80.7 fL (83.0-100.0); Mean Platelet Volume 10.8 fL (9.4-12.4); Monocytes # 0.9 K/mcL (0.0-1.3); Monocytes % 6.7 %; Neutrophils # 7.7 K/mcL (1.6-8.9); Platelet Count 291 K/mcL (140-400); Red Blood Count 5.23 M/mcL (3.82-4.97); Red Cell Distribution Width 21.7 % (11.5-14.5); Segmented Neutrophils % 61.2 %; White Blood Count 12.6 K/mcL (4.3-11.1)
[2020-05-20 17:15] LABS: Prothrombin Time 10.9 Seconds (9.4-12.1)
[2020-05-20 17:18] LABS: Activated Partial Thrombo Time 32.2 Seconds (26.0-36.0); BUN/Creatinine Ratio 31 (6-26); Blood Urea Nitrogen 19 mg/dL (8-23); Calcium 8.7 mg/dL (8.6-10.3); Carbon Dioxide 28 mEq/L (23-29); Chloride 104 mEq/L (98-107); Glucose 52 mg/dL (70-105); Osmolality,Calculated 286 (280-300); Potassium 4.1 mEq/L (3.5-5.1); Sodium 138 mEq/L (136-145); eGFR For African Americans > 60 (> 60); eGFR For Non-African Americans > 60 (> 60)
[2020-05-20 17:19] LABS: Albumin 2.9 g/dL (3.5-5.7); Albumin/Globulin Ratio 0.8 (1.1-2.2); Bilirubin,Direct 0.1 mg/dL (0.0-0.2); Bilirubin,Indirect 0.2 mg/dL (0.0-1.0); Bilirubin,Total 0.3 mg/dL (0.3-1.0); Globulin 3.5 g/dL (2.4-3.5); Total Protein 6.4 g/dL (6.4-8.9)
[2020-05-20] MEDS ORDERED: Piperacillin/Tazobactam 3.375 GM in 0.9 % Sodium Chloride Mini Bag 100 ML IVPB ONE (19:07)
[2020-05-20] MEDS ORDERED: Vancomycin 1,500 MG/265 ML IV.SOLN IVPB ONE (19:07)
[2020-05-20] MEDS ORDERED: Isovue-370 500 ML BOTTLE IVP ONE (19:22)
[2020-05-20] MEDS ORDERED: Acetaminophen 325 MG TABLET PO PRN (21:56)
[2020-05-20] MEDS ORDERED: Naloxone 0.4 MG/ML INJ IVP PRN (21:56)
[2020-05-20] MEDS ORDERED: *HR* Dextrose 50 % in Water (Vial) 50 ML VIAL IVP PRN (21:59)
[2020-05-20] MEDS ORDERED: Dextrose Gel 15 GM/37.5 ML TUBE PO PRN ×2 (21:59)
[2020-05-20] MEDS ORDERED: D5% in Water 1,000 ML IVC PRN (21:59)
[2020-05-20] MEDS ORDERED: 0.9 % Sodium Chloride 1,000 ML IVC SCH (22:00)
[2020-05-20] MEDS: *HR* Heparin 5,000 UNIT/ML VIAL SQ SCH (23:24)
[2020-05-21] MEDS ORDERED: Nitroglycerin 0.4 MG TAB.SUBL SL PRN (01:50)
[2020-05-21] MEDS: Piperacillin/Tazobactam 3.375 GM in 0.9 % Sodium Chloride Mini Bag 100 ML IVPB SCH ×3 (02:44→19:05)
[2020-05-21 04:32] LABS: Basophils # 0.1 K/mcL (0.0-0.2); Basophils % 0.6 %; Eosinophils # 0.3 K/mcL (0.0-0.6); Eosinophils % 2.9 %; Hematocrit 38.5 % (35.3-44.9); Hemoglobin 11.2 g/dL (11.5-15.4); Immature Granulocytes % 0.6 % (0-4); Lymphocytes # 2.7 K/mcL (0.6-4.6); Lymphocytes % 26.9 %; Mean Corpuscular HGB Conc 29.1 g/dL (31.6-35.5); Mean Corpuscular Volume 82.6 fL (83.0-100.0); Mean Platelet Volume 11.2 fL (9.4-12.4); Monocytes # 0.7 K/mcL (0.0-1.3); Monocytes % 7.3 %; Neutrophils # 6.2 K/mcL (1.6-8.9); Platelet Count 254 K/mcL (140-400); Red Blood Count 4.66 M/mcL (3.82-4.97); Red Cell Distribution Width 21.1 % (11.5-14.5); Segmented Neutrophils % 61.7 %; White Blood Count 10.1 K/mcL (4.3-11.1)
[2020-05-21 04:50] LABS: Alanine Aminotransferase 11 Units/L (7-52); Albumin 2.5 g/dL (3.5-5.7); Albumin/Globulin Ratio 0.8 (1.1-2.2); Alkaline Phosphatase 114 Units/L (34-104); Aspartate Amino Transferase 16 Units/L (13-39); BUN/Creatinine Ratio 27 (6-26); Bilirubin,Total 0.2 mg/dL (0.3-1.0); Blood Urea Nitrogen 16 mg/dL (8-23); Calcium 8.4 mg/dL (8.6-10.3); Carbon Dioxide 28 mEq/L (23-29); Chloride 108 mEq/L (98-107); Glucose 55 mg/dL (70-105); Osmolality,Calculated 287 (280-300); Potassium 3.7 mEq/L (3.5-5.1); Sodium 139 mEq/L (136-145); Total Protein 5.5 g/dL (6.4-8.9); eGFR For African Americans > 60 (> 60); eGFR For Non-African Americans > 60 (> 60)
[2020-05-21] MEDS: *HR* Heparin 5,000 UNIT/ML VIAL SQ SCH ×3 (05:22→21:14)
[2020-05-21] MEDS: Insulin LISPRO 300 UNITS/3 ML VIAL SQ SCH ×3 (07:05→16:40)
[2020-05-21] MEDS: Metoprolol XL (24 HR) Succ 50 MG TAB.ER.24H PO SCH (07:15)
[2020-05-21] MEDS: Aspirin Enteric Coated 81 MG Tablet PO SCH (07:15)
[2020-05-21] MEDS: Isosorbide MONOnitrate (24 HR) 60 MG TAB.ER.24H PO SCH ×2 (07:15→20:29)
[2020-05-21] MEDS: Gabapentin 400 MG CAPSULE PO SCH ×3 (07:15→20:28)
[2020-05-21] MEDS: Furosemide 40 MG TABLET PO SCH ×2 (07:15→17:06)
[2020-05-21] MEDS: Ranolazine 500 MG TAB.ER.12H PO SCH ×2 (07:15→20:27)
[2020-05-21] MEDS: Albuterol 2.5 MG/3 ML NEBULIZER IH PRN (07:24)
[2020-05-21] MEDS: Budesonide/Formoterol 160/4.5 1 PUFF INH IH SCH ×2 (07:26→22:21)
[2020-05-21] MEDS: Tiotropium 18 MCG inhalation IH SCH (07:28)
[2020-05-21] MEDS ORDERED: Vancomycin 1,500 MG/265 ML IV.SOLN IVPB SCH (08:00)
[2020-05-21] MEDS ORDERED: Piperacillin/Tazobactam 3.375 GM VIAL ONE (09:24)
[2020-05-21] MEDS: Insulin DETEMIR 100 UNIT/ML X5UNITS SQ SCH (20:31)
[2020-05-22] MEDS: Piperacillin/Tazobactam 3.375 GM in 0.9 % Sodium Chloride Mini Bag 100 ML IVPB SCH ×3 (03:08→18:07)
[2020-05-22 05:30] LABS: Basophils % 0.7 %
[2020-05-22 05:31] LABS: Basophils # 0.1 K/mcL (0.0-0.2); Eosinophils # 0.3 K/mcL (0.0-0.6); Eosinophils % 3.3 %; Hematocrit 37.1 % (35.3-44.9); Hemoglobin 10.7 g/dL (11.5-15.4); Immature Granulocytes % 0.6 % (0-4); Lymphocytes # 2.5 K/mcL (0.6-4.6); Lymphocytes % 29.9 %; Mean Corpuscular HGB Conc 28.8 g/dL (31.6-35.5); Mean Corpuscular Hemoglobin 24.3 pg (28.0-33.3); Mean Corpuscular Volume 84.3 fL (83.0-100.0); Monocytes # 0.6 K/mcL (0.0-1.3); Monocytes % 7.4 %; Neutrophils # 4.9 K/mcL (1.6-8.9); Platelet Count 239 K/mcL (140-400); Red Cell Distribution Width 21.3 % (11.5-14.5); Segmented Neutrophils % 58.1 %; White Blood Count 8.5 K/mcL (4.3-11.1)
[2020-05-22 05:32] LABS: BUN/Creatinine Ratio 25 (6-26); Blood Urea Nitrogen 16 mg/dL (8-23); Carbon Dioxide 29 mEq/L (23-29); Chloride 107 mEq/L (98-107); Glucose 173 mg/dL (70-105); Osmolality,Calculated 295 (280-300); Potassium 3.9 mEq/L (3.5-5.1); Sodium 140 mEq/L (136-145); eGFR For African Americans > 60 (> 60); eGFR For Non-African Americans > 60 (> 60)
[2020-05-22] MEDS: *HR* Heparin 5,000 UNIT/ML VIAL SQ SCH ×3 (05:52→21:33)
[2020-05-22 07:13] LABS: Hypochromasia Present (Not Present); Platelet Estimate Normal (Normal)
[2020-05-22] MEDS: Ranolazine 500 MG TAB.ER.12H PO SCH ×2 (07:28→20:26)
[2020-05-22] MEDS: Metoprolol XL (24 HR) Succ 50 MG TAB.ER.24H PO SCH (07:29)
[2020-05-22] MEDS: Furosemide 40 MG TABLET PO SCH ×2 (07:29→18:07)
[2020-05-22] MEDS: Aspirin Enteric Coated 81 MG Tablet PO SCH (07:29)
[2020-05-22] MEDS: Gabapentin 400 MG CAPSULE PO SCH ×3 (07:29→20:25)
[2020-05-22] MEDS: Isosorbide MONOnitrate (24 HR) 60 MG TAB.ER.24H PO SCH ×2 (07:29→20:26)
[2020-05-22] MEDS: Budesonide/Formoterol 160/4.5 1 PUFF INH IH SCH ×2 (07:43→19:22)
[2020-05-22] MEDS: Tiotropium 18 MCG inhalation IH SCH (07:43)
[2020-05-22] MEDS: Insulin LISPRO 300 UNITS/3 ML VIAL SQ SCH ×3 (08:51→18:06)
[2020-05-22] MEDS: Nystatin POWDER 30 GM BOTTLE TP SCH ×2 (15:15→20:33)
[2020-05-22] MEDS: Albuterol 2.5 MG/3 ML NEBULIZER IH PRN (19:23)
[2020-05-22] MEDS: Insulin DETEMIR 100 UNIT/ML X5UNITS SQ SCH (20:31)
[2020-05-23 00:51] LABS: Basophils # 0.1 K/mcL (0.0-0.2); Basophils % 0.5 %; Eosinophils # 0.3 K/mcL (0.0-0.6); Eosinophils % 2.6 %; Hematocrit 36.9 % (35.3-44.9); Hemoglobin 10.7 g/dL (11.5-15.4); Immature Granulocytes % 0.6 % (0-4); Lymphocytes # 2.4 K/mcL (0.6-4.6); Lymphocytes % 23.9 %; Mean Corpuscular Hemoglobin 24.2 pg (28.0-33.3); Mean Corpuscular Volume 83.3 fL (83.0-100.0); Mean Platelet Volume 10.9 fL (9.4-12.4); Monocytes # 0.7 K/mcL (0.0-1.3); Monocytes % 7.3 %; Neutrophils # 6.4 K/mcL (1.6-8.9); Platelet Count 224 K/mcL (140-400); Red Blood Count 4.43 M/mcL (3.82-4.97); Red Cell Distribution Width 20.8 % (11.5-14.5); Segmented Neutrophils % 65.1 %; White Blood Count 9.9 K/mcL (4.3-11.1)
[2020-05-23 01:09] LABS: BUN/Creatinine Ratio 21 (6-26); Blood Urea Nitrogen 18 mg/dL (8-23); Calcium 8.3 mg/dL (8.6-10.3); Carbon Dioxide 26 mEq/L (23-29); Chloride 103 mEq/L (98-107); Glucose 180 mg/dL (70-105); Osmolality,Calculated 286 (280-300); Potassium 4.1 mEq/L (3.5-5.1); Sodium 135 mEq/L (136-145); eGFR For African Americans > 60 (> 60); eGFR For Non-African Americans > 60 (> 60)
[2020-05-23] MEDS: Piperacillin/Tazobactam 3.375 GM in 0.9 % Sodium Chloride Mini Bag 100 ML IVPB SCH (03:23)
[2020-05-23] MEDS: *HR* Heparin 5,000 UNIT/ML VIAL SQ SCH (06:08)
[2020-05-23] MEDS: Budesonide/Formoterol 160/4.5 1 PUFF INH IH SCH (07:14)
[2020-05-23] MEDS: Tiotropium 18 MCG inhalation IH SCH (07:14)
[2020-05-23] MEDS: Ranolazine 500 MG TAB.ER.12H PO SCH (07:27)
[2020-05-23] MEDS: Gabapentin 400 MG CAPSULE PO SCH (07:28)
[2020-05-23] MEDS: Isosorbide MONOnitrate (24 HR) 60 MG TAB.ER.24H PO SCH (07:28)
[2020-05-23] MEDS: Furosemide 40 MG TABLET PO SCH (07:28)
[2020-05-23] MEDS: Aspirin Enteric Coated 81 MG Tablet PO SCH (07:28)
[2020-05-23] MEDS: Metoprolol XL (24 HR) Succ 50 MG TAB.ER.24H PO SCH (07:28)
[2020-05-23] MEDS: Nystatin POWDER 30 GM BOTTLE TP SCH (07:28)
[2020-05-23 08:08] VITALS: BP 161/70
[2020-05-23] MEDS: Insulin LISPRO 300 UNITS/3 ML VIAL SQ SCH (08:34)
[2020-05-24] MEDS ORDERED: BUPRENORPHINE TP SCH (09:00)
== END 2020-05-23 11:26 | disposition home or self-care (01) | DRG 872 ==
LOC: 3ANU 15:14 → EMEROOARM 15:14 → SUATTDRO 21:21 → 3ANU 22:14
PROVIDERS: ADMIT Internal Medicine; ATTEND Family Medicine

== ENCOUNTER 2020-06-12 03:54 | Observation (INO) ==
[2020-06-12 05:34] LABS: Bilirubin,Urine Negative (Negative); Blood,Urine Negative (Negative); Clarity,Urine Clear (Clear); Color,Urine Light-Yellow (Yellow); Glucose,Urine (UA) Normal (Normal); Ketones,Urine Negative (Negative); Leukocyte Esterase,Urine Negative (Negative); Nitrite,Urine Positive (Negative); Protein,Urine >=300 mg/dL (Neg-Trace); RBC,Urine 0-3 per hpf (0-3); Specific Gravity,Urine 1.011 (1.010-1.025); Urobilinogen,Urine Normal (Normal); WBC,Urine 0-3 per hpf (0-3)
[2020-06-12] MEDS ORDERED: Isovue-370 500 ML BOTTLE IVP ONE (05:50)
[2020-06-12 05:52] LABS: Basophils # 0.1 K/mcL (0.0-0.2); Basophils % 0.8 %; Eosinophils # 0.3 K/mcL (0.0-0.6); Eosinophils % 2.8 %; Hematocrit 40.9 % (35.3-44.9); Immature Granulocytes % 0.9 % (0-4); Lymphocytes # 3.4 K/mcL (0.6-4.6); Lymphocytes % 30.7 %; Mean Corpuscular HGB Conc 29.3 g/dL (31.6-35.5); Mean Corpuscular Hemoglobin 24.8 pg (28.0-33.3); Mean Corpuscular Volume 84.7 fL (83.0-100.0); Mean Platelet Volume 10.9 fL (9.4-12.4); Monocytes # 0.7 K/mcL (0.0-1.3); Monocytes % 6.6 %; Neutrophils # 6.4 K/mcL (1.6-8.9); Nucleated Red Blood Cells 0.2 /100 WBC (0); Platelet Count 267 K/mcL (140-400); Red Blood Count 4.83 M/mcL (3.82-4.97); Red Cell Distribution Width 21.6 % (11.5-14.5); Segmented Neutrophils % 58.2 %; White Blood Count 10.9 K/mcL (4.3-11.1)
[2020-06-12 06:33] LABS: Alanine Aminotransferase 7 Units/L (7-52); Albumin 2.7 g/dL (3.5-5.7); Albumin/Globulin Ratio 0.8 (1.1-2.2); Alkaline Phosphatase 92 Units/L (34-104); Aspartate Amino Transferase 10 Units/L (13-39); BUN/Creatinine Ratio 33 (6-26); Bilirubin,Indirect 0.2 mg/dL (0.0-1.0); Bilirubin,Total 0.2 mg/dL (0.3-1.0); Blood Urea Nitrogen 24 mg/dL (8-23); Calcium 8.5 mg/dL (8.6-10.3); Carbon Dioxide 23 mEq/L (23-29); Chloride 107 mEq/L (98-107); Globulin 3.2 g/dL (2.4-3.5); Glucose 72 mg/dL (70-105); Lipase 7 Units/L (11-82); Osmolality,Calculated 285 (280-300); Potassium 4.6 mEq/L (3.5-5.1); Sodium 136 mEq/L (136-145); Total Protein 5.9 g/dL (6.4-8.9); Troponin I 0.03 ng/mL (< 0.04); eGFR For African Americans > 60 (> 60); eGFR For Non-African Americans > 60 (> 60)
[2020-06-12] MEDS ORDERED: Vancomycin 1,500 MG/265 ML IV.SOLN IVPB ONE (08:37)
[2020-06-12] MEDS ORDERED: Piperacillin/Tazobactam 3.375 GM in 0.9 % Sodium Chloride Mini Bag 100 ML IVPB ONE (08:44)
[2020-06-12] MEDS ORDERED: Ondansetron 4 MG/2 ML VIAL IVP PRN (09:31)
[2020-06-12] MEDS ORDERED: Naloxone 0.4 MG/ML INJ IVP PRN (09:31)
[2020-06-12] MEDS ORDERED: Dextrose Gel 15 GM/37.5 ML TUBE PO PRN ×2 (09:33)
[2020-06-12] MEDS ORDERED: D5% in Water 1,000 ML IVC PRN (09:33)
[2020-06-12] MEDS ORDERED: *HR* Dextrose 50 % in Water (Vial) 50 ML VIAL IVP PRN (09:33)
[2020-06-12] MEDS ORDERED: Nitroglycerin 0.4 MG TAB.SUBL SL PRN (09:37)
[2020-06-12] MEDS ORDERED: Metoprolol XL (24 HR) Succ 50 MG TAB.ER.24H PO SCH (10:15)
[2020-06-12] MEDS ORDERED: Aspirin 81 MG TAB.CHEW PO ONE (10:15)
[2020-06-12] MEDS: Budesonide/Formoterol 160/4.5 1 PUFF INH IH SCH ×2 (11:12→20:51)
[2020-06-12 12:17] LABS: C-Reactive Protein 8 mg/L (Less than 10)
[2020-06-12] MEDS: Sulfamethoxazole/Trimeth DS 1 EACH TABLET PO SCH ×2 (14:15→20:15)
[2020-06-12] MEDS: Ranolazine 500 MG TAB.ER.12H PO SCH ×2 (14:15→20:14)
[2020-06-12] MEDS: Gabapentin 400 MG CAPSULE PO SCH ×3 (14:15→20:14)
[2020-06-12] MEDS: Isosorbide MONOnitrate (24 HR) 60 MG TAB.ER.24H PO SCH ×2 (14:16→20:15)
[2020-06-12] MEDS: Insulin LISPRO 300 UNITS/3 ML VIAL SQ SCH ×2 (14:17→18:06)
[2020-06-12] MEDS: *HR* HYDROcodone/Acet 5/325 mg TABLET PO PRN (16:23)
[2020-06-12] MEDS ORDERED: Furosemide 20 MG/2 ML VIAL IVP SCH (17:00)
[2020-06-12] MEDS: *HR* Heparin 5,000 UNIT/ML VIAL SQ SCH (17:15)
[2020-06-13 04:51] LABS: Basophils # 0.1 K/mcL (0.0-0.2); Basophils % 0.8 %; Eosinophils # 0.2 K/mcL (0.0-0.6); Eosinophils % 2.1 %; Hematocrit 39.8 % (35.3-44.9); Hemoglobin 11.7 g/dL (11.5-15.4); Immature Granulocytes % 0.9 % (0-4); Lymphocytes # 2.4 K/mcL (0.6-4.6); Lymphocytes % 21.3 %; Mean Corpuscular HGB Conc 29.4 g/dL (31.6-35.5); Mean Corpuscular Hemoglobin 24.9 pg (28.0-33.3); Mean Corpuscular Volume 84.7 fL (83.0-100.0); Monocytes # 0.8 K/mcL (0.0-1.3); Monocytes % 6.8 %; Neutrophils # 7.8 K/mcL (1.6-8.9); Platelet Count 258 K/mcL (140-400); Red Cell Distribution Width 21.6 % (11.5-14.5); Segmented Neutrophils % 68.1 %; White Blood Count 11.4 K/mcL (4.3-11.1)
[2020-06-13 05:05] LABS: Activated Partial Thrombo Time 28.9 Seconds (26.0-36.0)
[2020-06-13 05:43] LABS: BUN/Creatinine Ratio 26 (6-26); Blood Urea Nitrogen 20 mg/dL (8-23); Calcium 8.4 mg/dL (8.6-10.3); Carbon Dioxide 25 mEq/L (23-29); Chloride 108 mEq/L (98-107); Glucose 126 mg/dL (70-105); Magnesium 1.8 mg/dL (1.6-2.6); Osmolality,Calculated 292 (280-300); Phosphorous 4.8 mg/dL (2.7-4.5); Potassium 4.8 mEq/L (3.5-5.1); Sodium 139 mEq/L (136-145); eGFR For African Americans > 60 (> 60); eGFR For Non-African Americans > 60 (> 60)
[2020-06-13] MEDS: *HR* HYDROcodone/Acet 5/325 mg TABLET PO PRN (05:48)
[2020-06-13] MEDS: *HR* Heparin 5,000 UNIT/ML VIAL SQ SCH (05:49)
[2020-06-13] MEDS: Budesonide/Formoterol 160/4.5 1 PUFF INH IH SCH (07:31)
[2020-06-13 07:38] VITALS: BP 137/55
[2020-06-13] MEDS ORDERED: Aspirin Enteric Coated 81 MG Tablet PO SCH (09:00)
[2020-06-13] MEDS ORDERED: Aspirin 81 MG TAB.CHEW PO ONE (09:22)
== END 2020-06-13 11:34 | disposition home or self-care (01) ==
LOC: CDU 03:54 → EMEROOARM 03:54 → SUATTDRO 10:50 → 3ANU 10:52
PROVIDERS: ADMIT Internal Medicine; ATTEND Internal Medicine

== ENCOUNTER 2020-07-06 01:57 | Observation (INO) ==
[2020-07-06] MEDS ORDERED: Furosemide 40 MG/4 ML VIAL IVP ONE (02:57)
[2020-07-06 03:50] LABS: Basophils # 0.1 K/mcL (0.0-0.2); Basophils % 0.9 %; Eosinophils # 0.3 K/mcL (0.0-0.6); Eosinophils % 2.6 %; Hematocrit 43.6 % (35.3-44.9); Hemoglobin 12.8 g/dL (11.5-15.4); Immature Granulocytes % 1.3 % (0-4); Lymphocytes # 2.8 K/mcL (0.6-4.6); Mean Corpuscular HGB Conc 29.4 g/dL (31.6-35.5); Mean Corpuscular Hemoglobin 24.8 pg (28.0-33.3); Mean Corpuscular Volume 84.5 fL (83.0-100.0); Mean Platelet Volume 10.7 fL (9.4-12.4); Monocytes # 0.9 K/mcL (0.0-1.3); Monocytes % 6.7 %; Neutrophils # 8.5 K/mcL (1.6-8.9); Platelet Count 309 K/mcL (140-400); Red Blood Count 5.16 M/mcL (3.82-4.97); Red Cell Distribution Width 21.5 % (11.5-14.5); Segmented Neutrophils % 66.5 %; White Blood Count 12.8 K/mcL (4.3-11.1)
[2020-07-06 04:14] LABS: Alanine Aminotransferase 8 Units/L (7-52); Albumin 2.7 g/dL (3.5-5.7); Albumin/Globulin Ratio 0.8 (1.1-2.2); Alkaline Phosphatase 99 Units/L (34-104); Aspartate Amino Transferase 9 Units/L (13-39); BUN/Creatinine Ratio 30 (6-26); Bilirubin,Indirect 0.2 mg/dL (0.0-1.0); Bilirubin,Total 0.2 mg/dL (0.3-1.0); Blood Urea Nitrogen 22 mg/dL (8-23); Calcium 8.4 mg/dL (8.6-10.3); Carbon Dioxide 26 mEq/L (23-29); Chloride 106 mEq/L (98-107); Globulin 3.3 g/dL (2.4-3.5); Glucose 54 mg/dL (70-105); Osmolality,Calculated 285 (280-300); Potassium 4.2 mEq/L (3.5-5.1); Sodium 137 mEq/L (136-145); Troponin I < 0.03 ng/mL (< 0.04); eGFR For African Americans > 60 (> 60); eGFR For Non-African Americans > 60 (> 60)
[2020-07-06 05:27] LABS: Bilirubin,Urine Negative (Negative); Blood,Urine Negative (Negative); Clarity,Urine Clear (Clear); Color,Urine Colorless (Yellow); Glucose,Urine (UA) Normal (Normal); Ketones,Urine Negative (Negative); Leukocyte Esterase,Urine Negative (Negative); Nitrite,Urine Negative (Negative); Protein,Urine 100 mg/dL (Neg-Trace); RBC,Urine 0-3 per hpf (0-3); Specific Gravity,Urine 1.008 (1.010-1.025); Squamous Epithelial Cell,Urine Few per hpf (None-Few); Urobilinogen,Urine Normal (Normal); WBC,Urine 0-3 per hpf (0-3)
[2020-07-06] MEDS ORDERED: Naloxone 0.4 MG/ML INJ IVP PRN (06:14)
[2020-07-06] MEDS ORDERED: Acetaminophen 325 MG TABLET PO PRN (06:14)
[2020-07-06] MEDS ORDERED: Dextrose Gel 15 GM/37.5 ML TUBE PO PRN ×2 (06:19)
[2020-07-06] MEDS ORDERED: D5% in Water 1,000 ML IVC PRN (06:19)
[2020-07-06] MEDS ORDERED: *HR* Dextrose 50 % in Water (Vial) 50 ML VIAL IVP PRN (06:19)
[2020-07-06] MEDS: Insulin LISPRO 300 UNITS/3 ML VIAL SQ SCH ×3 (06:39→17:47)
[2020-07-06] MEDS: Furosemide 40 MG/4 ML VIAL IVP SCH ×2 (09:02→19:41)
[2020-07-06] MEDS: predniSONE 20 MG TABLET PO SCH (11:55)
[2020-07-06] MEDS: Ipratropium/Albuterol Neb 3 ML IH SCH ×2 (15:32→21:54)
[2020-07-06] MEDS ORDERED: *HR* OxyCODONE Immed Rel 5 MG TABLET PO PRN (17:27)
[2020-07-06] MEDS ORDERED: Nitroglycerin 0.4 MG TAB.SUBL SL PRN (17:45)
[2020-07-06] MEDS ORDERED: Ammonium Lactate 30 APPL/225 GM BOTTLE TP PRN (17:45)
[2020-07-06] MEDS: Ranolazine 500 MG TAB.ER.12H PO SCH (19:41)
[2020-07-06] MEDS: Isosorbide MONOnitrate (24 HR) 60 MG TAB.ER.24H PO SCH (19:42)
[2020-07-06] MEDS: Gabapentin 400 MG CAPSULE PO SCH (19:42)
[2020-07-06] MEDS: Insulin DETEMIR 100 UNIT/ML X5UNITS SQ SCH (20:12)
[2020-07-06] MEDS: Budesonide/Formoterol 160/4.5 1 PUFF INH IH SCH (21:55)
[2020-07-07 01:59] LABS: Hematocrit 39.6 % (35.3-44.9); Hemoglobin 11.9 g/dL (11.5-15.4); Mean Corpuscular HGB Conc 30.1 g/dL (31.6-35.5); Mean Corpuscular Hemoglobin 25.4 pg (28.0-33.3); Mean Corpuscular Volume 84.4 fL (83.0-100.0); Mean Platelet Volume 10.5 fL (9.4-12.4); Platelet Count 263 K/mcL (140-400); Red Blood Count 4.69 M/mcL (3.82-4.97); Red Cell Distribution Width 20.4 % (11.5-14.5); White Blood Count 10.7 K/mcL (4.3-11.1)
[2020-07-07 02:13] LABS: BUN/Creatinine Ratio 32 (6-26); Blood Urea Nitrogen 24 mg/dL (8-23); Calcium 8.2 mg/dL (8.6-10.3); Carbon Dioxide 27 mEq/L (23-29); Chloride 103 mEq/L (98-107); Glucose 167 mg/dL (70-105); Osmolality,Calculated 288 (280-300); Potassium 4.6 mEq/L (3.5-5.1); Sodium 135 mEq/L (136-145); eGFR For African Americans > 60 (> 60); eGFR For Non-African Americans > 60 (> 60)
[2020-07-07] MEDS: Budesonide/Formoterol 160/4.5 1 PUFF INH IH SCH ×2 (07:25→21:41)
[2020-07-07] MEDS: Ipratropium/Albuterol Neb 3 ML IH SCH ×3 (07:25→21:41)
[2020-07-07] MEDS: Tiotropium 18 MCG inhalation IH SCH (07:29)
[2020-07-07] MEDS: Isosorbide MONOnitrate (24 HR) 60 MG TAB.ER.24H PO SCH ×2 (08:30→20:39)
[2020-07-07] MEDS: Metoprolol XL (24 HR) Succ 50 MG TAB.ER.24H PO SCH (08:30)
[2020-07-07] MEDS: lisinopriL 5 MG TABLET PO SCH (08:31)
[2020-07-07] MEDS: predniSONE 20 MG TABLET PO SCH (08:32)
[2020-07-07] MEDS: Aspirin Enteric Coated 81 MG Tablet PO SCH (08:32)
[2020-07-07] MEDS: Ranolazine 500 MG TAB.ER.12H PO SCH ×2 (08:32→20:39)
[2020-07-07] MEDS: Gabapentin 400 MG CAPSULE PO SCH ×3 (08:33→20:38)
[2020-07-07] MEDS: Furosemide 40 MG/4 ML VIAL IVP SCH ×2 (08:33→20:40)
[2020-07-07] MEDS: Insulin LISPRO 300 UNITS/3 ML VIAL SQ SCH ×3 (08:34→17:45)
[2020-07-07] MEDS ORDERED: SUMAtriptan succinate 50 MG TABLET PO ONE ×2 (10:02→22:25)
[2020-07-07] MEDS: *HR* Enoxaparin 40 MG/0.4 ML SYRINGE SQ SCH (17:44)
[2020-07-07] MEDS: Insulin DETEMIR 100 UNIT/ML X5UNITS SQ SCH (20:40)
[2020-07-08 04:42] LABS: Basophils # 0.1 K/mcL (0.0-0.2); Basophils % 0.5 %; Eosinophils # 0.1 K/mcL (0.0-0.6); Eosinophils % 0.9 %; Hematocrit 40.9 % (35.3-44.9); Hemoglobin 11.9 g/dL (11.5-15.4); Immature Granulocytes % 0.8 % (0-4); Lymphocytes # 2.6 K/mcL (0.6-4.6); Mean Corpuscular HGB Conc 29.1 g/dL (31.6-35.5); Mean Corpuscular Volume 85.9 fL (83.0-100.0); Mean Platelet Volume 10.8 fL (9.4-12.4); Monocytes # 0.8 K/mcL (0.0-1.3); Neutrophils # 6.8 K/mcL (1.6-8.9); Platelet Count 269 K/mcL (140-400); Red Blood Count 4.76 M/mcL (3.82-4.97); Red Cell Distribution Width 20.1 % (11.5-14.5); Segmented Neutrophils % 64.8 %; White Blood Count 10.5 K/mcL (4.3-11.1)
[2020-07-08 05:05] LABS: BUN/Creatinine Ratio 35 (6-26); Blood Urea Nitrogen 28 mg/dL (8-23); Calcium 8.7 mg/dL (8.6-10.3); Carbon Dioxide 29 mEq/L (23-29); Chloride 103 mEq/L (98-107); Glucose 297 mg/dL (70-105); Osmolality,Calculated 301 (280-300); Potassium 4.1 mEq/L (3.5-5.1); Sodium 137 mEq/L (136-145); eGFR For African Americans > 60 (> 60); eGFR For Non-African Americans > 60 (> 60)
[2020-07-08] MEDS: *HR* Enoxaparin 40 MG/0.4 ML SYRINGE SQ SCH (05:47)
[2020-07-08] MEDS: Budesonide/Formoterol 160/4.5 1 PUFF INH IH SCH ×2 (07:53→22:16)
[2020-07-08] MEDS: Ipratropium/Albuterol Neb 3 ML IH SCH ×3 (07:53→22:18)
[2020-07-08] MEDS: Tiotropium 18 MCG inhalation IH SCH (07:53)
[2020-07-08] MEDS ORDERED: SUMAtriptan succinate 50 MG TABLET PO ONE (08:42)
[2020-07-08] MEDS: Furosemide 40 MG/4 ML VIAL IVP SCH ×2 (09:33→21:32)
[2020-07-08] MEDS: Aspirin Enteric Coated 81 MG Tablet PO SCH (09:33)
[2020-07-08] MEDS: Ranolazine 500 MG TAB.ER.12H PO SCH ×2 (09:33→21:31)
[2020-07-08] MEDS: lisinopriL 5 MG TABLET PO SCH (09:33)
[2020-07-08] MEDS: Metoprolol XL (24 HR) Succ 50 MG TAB.ER.24H PO SCH (09:34)
[2020-07-08] MEDS: Isosorbide MONOnitrate (24 HR) 60 MG TAB.ER.24H PO SCH ×2 (09:34→21:33)
[2020-07-08] MEDS: predniSONE 20 MG TABLET PO SCH (09:34)
[2020-07-08] MEDS: Insulin LISPRO 300 UNITS/3 ML VIAL SQ SCH ×3 (09:35→16:39)
[2020-07-08] MEDS: Gabapentin 400 MG CAPSULE PO SCH ×3 (09:35→21:31)
[2020-07-08] MEDS ORDERED: Prochlorperazine 10 MG/2 ML VIAL IVP PRN ×2 (11:23→23:01)
[2020-07-08] MEDS ORDERED: Insulin DETEMIR 100 UNIT/ML X5UNITS SQ SCH (21:00)
[2020-07-09 01:16] LABS: Basophils % 0.3 %; Eosinophils % 0.1 %; Hemoglobin 11.8 g/dL (11.5-15.4); Immature Granulocytes % 1.2 % (0-4); Lymphocytes # 1.6 K/mcL (0.6-4.6); Mean Corpuscular HGB Conc 29.5 g/dL (31.6-35.5); Mean Corpuscular Volume 84.7 fL (83.0-100.0); Mean Platelet Volume 11.2 fL (9.4-12.4); Monocytes # 0.7 K/mcL (0.0-1.3); Monocytes % 6.9 %; Platelet Count 272 K/mcL (140-400); Red Blood Count 4.72 M/mcL (3.82-4.97); Red Cell Distribution Width 19.9 % (11.5-14.5); Segmented Neutrophils % 74.5 %; White Blood Count 9.4 K/mcL (4.3-11.1)
[2020-07-09 01:36] LABS: BUN/Creatinine Ratio 37 (6-26); Blood Urea Nitrogen 34 mg/dL (8-23); Calcium 8.4 mg/dL (8.6-10.3); Carbon Dioxide 29 mEq/L (23-29); Chloride 101 mEq/L (98-107); Glucose 310 mg/dL (70-105); Osmolality,Calculated 301 (280-300); Potassium 4.3 mEq/L (3.5-5.1); Sodium 136 mEq/L (136-145); eGFR For African Americans > 60 (> 60); eGFR For Non-African Americans > 60 (> 60)
[2020-07-09] MEDS: *HR* Enoxaparin 40 MG/0.4 ML SYRINGE SQ SCH (05:52)
[2020-07-09] MEDS: Ipratropium/Albuterol Neb 3 ML IH SCH ×3 (07:37→22:18)
[2020-07-09] MEDS: Budesonide/Formoterol 160/4.5 1 PUFF INH IH SCH ×2 (07:38→22:18)
[2020-07-09] MEDS: Insulin LISPRO 300 UNITS/3 ML VIAL SQ SCH ×3 (08:41→15:33)
[2020-07-09] MEDS: Aspirin Enteric Coated 81 MG Tablet PO SCH (08:42)
[2020-07-09] MEDS: predniSONE 20 MG TABLET PO SCH (08:42)
[2020-07-09] MEDS: Furosemide 40 MG/4 ML VIAL IVP SCH (08:42)
[2020-07-09] MEDS: Ranolazine 500 MG TAB.ER.12H PO SCH ×2 (08:43→21:05)
[2020-07-09] MEDS: Gabapentin 400 MG CAPSULE PO SCH ×3 (08:43→21:05)
[2020-07-09] MEDS: Isosorbide MONOnitrate (24 HR) 60 MG TAB.ER.24H PO SCH ×2 (08:43→21:05)
[2020-07-09] MEDS: lisinopriL 5 MG TABLET PO SCH (08:43)
[2020-07-09] MEDS: Metoprolol XL (24 HR) Succ 50 MG TAB.ER.24H PO SCH (08:43)
[2020-07-09] MEDS: Tiotropium 18 MCG inhalation IH SCH (09:58)
[2020-07-09] MEDS ORDERED: Insulin DETEMIR 100 UNIT/ML X5UNITS SQ ONE (10:51)
[2020-07-09] MEDS ORDERED: Furosemide 40 MG TABLET PO SCH (17:00)
[2020-07-09] MEDS: Furosemide 40 MG TABLET PO SCH (17:15)
[2020-07-09] MEDS ORDERED: Insulin DETEMIR 100 UNIT/ML X5UNITS SQ SCH (21:00)
[2020-07-10 03:25] LABS: BUN/Creatinine Ratio 43 (6-26); Blood Urea Nitrogen 38 mg/dL (8-23); Calcium 8.6 mg/dL (8.6-10.3); Carbon Dioxide 32 mEq/L (23-29); Chloride 102 mEq/L (98-107); Glucose 202 mg/dL (70-105); Osmolality,Calculated 299 (280-300); Potassium 4.1 mEq/L (3.5-5.1); Sodium 137 mEq/L (136-145); eGFR For African Americans > 60 (> 60); eGFR For Non-African Americans > 60 (> 60)
[2020-07-10] MEDS: *HR* Enoxaparin 40 MG/0.4 ML SYRINGE SQ SCH (05:24)
[2020-07-10] MEDS: Budesonide/Formoterol 160/4.5 1 PUFF INH IH SCH (07:35)
[2020-07-10] MEDS: Ipratropium/Albuterol Neb 3 ML IH SCH (07:35)
[2020-07-10] MEDS: Tiotropium 18 MCG inhalation IH SCH (07:37)
[2020-07-10 07:57] VITALS: BP 144/74
[2020-07-10] MEDS: Insulin LISPRO 300 UNITS/3 ML VIAL SQ SCH (08:04)
[2020-07-10] MEDS: lisinopriL 5 MG TABLET PO SCH (08:17)
[2020-07-10] MEDS: Metoprolol XL (24 HR) Succ 50 MG TAB.ER.24H PO SCH (08:18)
[2020-07-10] MEDS: predniSONE 20 MG TABLET PO SCH (08:18)
[2020-07-10] MEDS: Aspirin Enteric Coated 81 MG Tablet PO SCH (08:18)
[2020-07-10] MEDS: Ranolazine 500 MG TAB.ER.12H PO SCH (08:19)
[2020-07-10] MEDS: Furosemide 40 MG TABLET PO SCH (08:19)
[2020-07-10] MEDS: Isosorbide MONOnitrate (24 HR) 60 MG TAB.ER.24H PO SCH (08:19)
[2020-07-10] MEDS: Gabapentin 400 MG CAPSULE PO SCH (08:19)
[2020-07-12] MEDS ORDERED: Patient Taking Own Medication 1 EACH TP SCH (17:45)
== END 2020-07-10 10:36 | disposition home or self-care (01) ==
LOC: 2ANU 01:57 → EMEROOARM 01:57 → SUATTDRO 05:45 → 2ANU 06:00
PROVIDERS: ADMIT Student in an Organized Health Care Education/Training Program; ATTEND Internal Medicine

== ENCOUNTER 2020-08-05 05:05 | Inpatient (IN) ==
[2020-08-05] MEDS ORDERED: Isovue-370 500 ML BOTTLE IVP ONE (05:15)
[2020-08-05] MEDS ORDERED: methylPREDNISolone 125 MG/2 ML VIAL IVP ONE (05:16)
[2020-08-05] MEDS ORDERED: Ipratropium/Albuterol Neb 3 ML IH ONE (05:16)
[2020-08-05 05:49] LABS: Basophils # 0.1 K/mcL (0.0-0.2); Basophils % 0.8 %; Eosinophils # 0.3 K/mcL (0.0-0.6); Eosinophils % 2.3 %; Hematocrit 42.4 % (35.3-44.9); Hemoglobin 12.8 g/dL (11.5-15.4); Immature Granulocytes % 2.2 % (0-4); Lymphocytes # 2.5 K/mcL (0.6-4.6); Lymphocytes % 18.4 %; Mean Corpuscular HGB Conc 30.2 g/dL (31.6-35.5); Mean Corpuscular Hemoglobin 25.7 pg (28.0-33.3); Mean Platelet Volume 10.9 fL (9.4-12.4); Monocytes # 0.8 K/mcL (0.0-1.3); Monocytes % 5.8 %; Neutrophils # 9.7 K/mcL (1.6-8.9); Nucleated Red Blood Cells 0.1 /100 WBC (0); Platelet Count 270 K/mcL (140-400); Red Blood Count 4.99 M/mcL (3.82-4.97); Red Cell Distribution Width 19.4 % (11.5-14.5); Segmented Neutrophils % 70.5 %; White Blood Count 13.7 K/mcL (4.3-11.1)
[2020-08-05 06:08] LABS: BUN/Creatinine Ratio 26 (6-26); Blood Urea Nitrogen 29 mg/dL (8-23); Calcium 8.5 mg/dL (8.6-10.3); Carbon Dioxide 26 mEq/L (23-29); Chloride 102 mEq/L (98-107); Glucose 215 mg/dL (70-105); Osmolality,Calculated 296 (280-300); Potassium 4.8 mEq/L (3.5-5.1); Sodium 137 mEq/L (136-145); Troponin I < 0.03 ng/mL (< 0.04); eGFR For African Americans 59 (> 60); eGFR For Non-African Americans 49 (> 60)
[2020-08-05] MEDS ORDERED: Furosemide 40 MG/4 ML VIAL IVP ONE (08:05)
[2020-08-05] MEDS ORDERED: Ondansetron 4 MG/2 ML VIAL IVP PRN (08:20)
[2020-08-05] MEDS ORDERED: *HR* Dextrose 50 % in Water (Vial) 50 ML VIAL IVP PRN (08:34)
[2020-08-05] MEDS ORDERED: D5% in Water 1,000 ML IVC PRN (08:34)
[2020-08-05] MEDS ORDERED: Dextrose Gel 15 GM/37.5 ML TUBE PO PRN ×2 (08:34)
[2020-08-05] MEDS ORDERED: Tiotropium 18 MCG inhalation IH SCH (09:00)
[2020-08-05] MEDS: Metoprolol XL (24 HR) Succ 50 MG TAB.ER.24H PO SCH (11:19)
[2020-08-05] MEDS: Ranolazine 500 MG TAB.ER.12H PO SCH ×2 (11:20→20:38)
[2020-08-05] MEDS: Isosorbide MONOnitrate (24 HR) 60 MG TAB.ER.24H PO SCH ×2 (11:20→20:38)
[2020-08-05] MEDS: Gabapentin 300 MG CAPSULE PO SCH ×3 (11:20→20:39)
[2020-08-05] MEDS: Aspirin Enteric Coated 81 MG Tablet PO SCH (11:20)
[2020-08-05] MEDS: lisinopriL 5 MG TABLET PO SCH (11:21)
[2020-08-05] MEDS: Azithromycin 250 MG TABLET PO SCH (11:21)
[2020-08-05] MEDS: Insulin LISPRO 300 UNITS/3 ML VIAL SQ SCH ×3 (11:23→20:39)
[2020-08-05] MEDS: Furosemide 40 MG/4 ML VIAL IVP SCH (16:19)
[2020-08-05] MEDS: Insulin DETEMIR 100 UNIT/ML X5UNITS SQ SCH (20:39)
[2020-08-06] MEDS: Acetaminophen 325 MG TABLET PO PRN (05:36)
[2020-08-06 06:57] LABS: Hematocrit 38.9 % (35.3-44.9); Hemoglobin 11.4 g/dL (11.5-15.4); Mean Corpuscular HGB Conc 29.3 g/dL (31.6-35.5); Mean Corpuscular Hemoglobin 24.6 pg (28.0-33.3); Mean Corpuscular Volume 83.8 fL (83.0-100.0); Mean Platelet Volume 10.6 fL (9.4-12.4); Platelet Count 266 K/mcL (140-400); Red Blood Count 4.64 M/mcL (3.82-4.97); Red Cell Distribution Width 18.8 % (11.5-14.5)
[2020-08-06 07:31] LABS: BUN/Creatinine Ratio 41 (6-26); Blood Urea Nitrogen 31 mg/dL (8-23); Calcium 8.9 mg/dL (8.6-10.3); Carbon Dioxide 28 mEq/L (23-29); Chloride 105 mEq/L (98-107); Glucose 155 mg/dL (70-105); Magnesium 1.9 mg/dL (1.6-2.6); Osmolality,Calculated 296 (280-300); Potassium 4.4 mEq/L (3.5-5.1); Sodium 138 mEq/L (136-145); eGFR For African Americans > 60 (> 60); eGFR For Non-African Americans > 60 (> 60)
[2020-08-06] MEDS: Insulin LISPRO 300 UNITS/3 ML VIAL SQ SCH ×4 (07:45→20:20)
[2020-08-06] MEDS: Ranolazine 500 MG TAB.ER.12H PO SCH ×2 (07:52→20:16)
[2020-08-06] MEDS: Isosorbide MONOnitrate (24 HR) 60 MG TAB.ER.24H PO SCH ×2 (07:52→20:17)
[2020-08-06] MEDS: Gabapentin 300 MG CAPSULE PO SCH ×3 (07:52→20:16)
[2020-08-06] MEDS: lisinopriL 5 MG TABLET PO SCH (07:52)
[2020-08-06] MEDS: Metoprolol XL (24 HR) Succ 50 MG TAB.ER.24H PO SCH (07:52)
[2020-08-06] MEDS: Aspirin Enteric Coated 81 MG Tablet PO SCH (07:52)
[2020-08-06] MEDS: Azithromycin 250 MG TABLET PO SCH (07:52)
[2020-08-06] MEDS: Furosemide 40 MG/4 ML VIAL IVP SCH ×2 (07:53→17:54)
[2020-08-06] MEDS: Tiotropium 18 MCG inhalation IH SCH (09:27)
[2020-08-06] MEDS: *HR* Heparin 5,000 UNIT/ML VIAL SQ SCH (17:54)
[2020-08-06] MEDS: Insulin DETEMIR 100 UNIT/ML X5UNITS SQ SCH (20:30)
[2020-08-06] MEDS ORDERED: GABAPENTIN 1600 MG PO SCH (21:00)
[2020-08-07] MEDS: *HR* Heparin 5,000 UNIT/ML VIAL SQ SCH ×2 (05:17→16:12)
[2020-08-07] MEDS: Acetaminophen 325 MG TABLET PO PRN (05:24)
[2020-08-07 06:01] LABS: Hematocrit 38.8 % (35.3-44.9); Hemoglobin 11.5 g/dL (11.5-15.4); Mean Corpuscular HGB Conc 29.6 g/dL (31.6-35.5); Mean Corpuscular Hemoglobin 25.2 pg (28.0-33.3); Mean Corpuscular Volume 84.9 fL (83.0-100.0); Mean Platelet Volume 10.7 fL (9.4-12.4); Platelet Count 263 K/mcL (140-400); Red Blood Count 4.57 M/mcL (3.82-4.97); Red Cell Distribution Width 18.4 % (11.5-14.5); White Blood Count 11.5 K/mcL (4.3-11.1)
[2020-08-07 06:28] LABS: BUN/Creatinine Ratio 46 (6-26); Blood Urea Nitrogen 32 mg/dL (8-23); Carbon Dioxide 31 mEq/L (23-29); Chloride 104 mEq/L (98-107); Glucose 87 mg/dL (70-105); Osmolality,Calculated 292 (280-300); Potassium 4.3 mEq/L (3.5-5.1); Sodium 138 mEq/L (136-145); eGFR For African Americans > 60 (> 60); eGFR For Non-African Americans > 60 (> 60)
[2020-08-07] MEDS: Tiotropium 18 MCG inhalation IH SCH (07:31)
[2020-08-07] MEDS: Insulin LISPRO 300 UNITS/3 ML VIAL SQ SCH ×4 (08:14→21:08)
[2020-08-07] MEDS: Aspirin Enteric Coated 81 MG Tablet PO SCH (08:18)
[2020-08-07] MEDS: Ranolazine 500 MG TAB.ER.12H PO SCH ×2 (08:18→21:06)
[2020-08-07] MEDS: Gabapentin 300 MG CAPSULE PO SCH ×3 (08:18→21:06)
[2020-08-07] MEDS: Metoprolol XL (24 HR) Succ 50 MG TAB.ER.24H PO SCH (08:19)
[2020-08-07] MEDS: lisinopriL 5 MG TABLET PO SCH (08:19)
[2020-08-07] MEDS: Azithromycin 250 MG TABLET PO SCH (08:19)
[2020-08-07] MEDS: Furosemide 40 MG/4 ML VIAL IVP SCH ×2 (08:20→16:12)
[2020-08-07] MEDS: Isosorbide MONOnitrate (24 HR) 60 MG TAB.ER.24H PO SCH ×2 (08:20→21:07)
[2020-08-07] MEDS: Insulin DETEMIR 100 UNIT/ML X5UNITS SQ SCH (21:08)
[2020-08-08 04:42] LABS: Hematocrit 42.1 % (35.3-44.9); Hemoglobin 12.5 g/dL (11.5-15.4); Mean Corpuscular HGB Conc 29.7 g/dL (31.6-35.5); Mean Corpuscular Hemoglobin 25.4 pg (28.0-33.3); Mean Corpuscular Volume 85.4 fL (83.0-100.0); Mean Platelet Volume 11.6 fL (9.4-12.4); Platelet Count 309 K/mcL (140-400); Red Blood Count 4.93 M/mcL (3.82-4.97); Red Cell Distribution Width 17.8 % (11.5-14.5); White Blood Count 12.9 K/mcL (4.3-11.1)
[2020-08-08 05:05] LABS: BUN/Creatinine Ratio 48 (6-26); Blood Urea Nitrogen 32 mg/dL (8-23); Calcium 8.4 mg/dL (8.6-10.3); Carbon Dioxide 31 mEq/L (23-29); Chloride 102 mEq/L (98-107); Glucose 42 mg/dL (70-105); Osmolality,Calculated 292 (280-300); Sodium 139 mEq/L (136-145); eGFR For African Americans > 60 (> 60); eGFR For Non-African Americans > 60 (> 60)
[2020-08-08] MEDS: *HR* Heparin 5,000 UNIT/ML VIAL SQ SCH (05:21)
[2020-08-08 06:47] VITALS: BP 160/70
[2020-08-08] MEDS: Tiotropium 18 MCG inhalation IH SCH (07:31)
[2020-08-08] MEDS: Insulin LISPRO 300 UNITS/3 ML VIAL SQ SCH (07:53)
[2020-08-08] MEDS: Gabapentin 300 MG CAPSULE PO SCH (08:10)
[2020-08-08] MEDS: Metoprolol XL (24 HR) Succ 50 MG TAB.ER.24H PO SCH (08:10)
[2020-08-08] MEDS: Azithromycin 250 MG TABLET PO SCH (08:10)
[2020-08-08] MEDS: Isosorbide MONOnitrate (24 HR) 60 MG TAB.ER.24H PO SCH (08:10)
[2020-08-08] MEDS: Aspirin Enteric Coated 81 MG Tablet PO SCH (08:11)
[2020-08-08] MEDS: Ranolazine 500 MG TAB.ER.12H PO SCH (08:11)
[2020-08-08] MEDS: lisinopriL 5 MG TABLET PO SCH (08:11)
[2020-08-08] MEDS: Furosemide 40 MG/4 ML VIAL IVP SCH (08:11)
== END 2020-08-08 12:26 | disposition home or self-care (01) | DRG 291 ==
LOC: 3BNU 05:05 → EMEROOARM 05:05 → 3BNU 09:57
PROVIDERS: ADMIT Internal Medicine; ATTEND Internal Medicine

== ENCOUNTER 2020-09-05 22:23 | Observation (INO) ==
[2020-09-05 23:33] LABS: Bilirubin,Urine Negative (Negative); Blood,Urine Negative (Negative); Clarity,Urine Clear (Clear); Color,Urine Light-Yellow (Yellow); Glucose,Urine (UA) Normal (Normal); Ketones,Urine Negative (Negative); Leukocyte Esterase,Urine Trace (Negative); Nitrite,Urine Negative (Negative); PH,Urine 6.5 pH Units (5.0-8.0); Protein,Urine >=300 mg/dL (Neg-Trace); Specific Gravity,Urine 1.014 (1.010-1.025); Squamous Epithelial Cell,Urine Few per hpf (None-Few); Urobilinogen,Urine Normal (Normal)
[2020-09-05 23:35] LABS: Prothrombin Time 11.3 Seconds (9.4-12.1)
[2020-09-05 23:38] LABS: Basophils # 0.1 K/mcL (0.0-0.2); Eosinophils # 0.4 K/mcL (0.0-0.6); Eosinophils % 3.4 %; Hemoglobin 12.3 g/dL (11.5-15.4); Immature Granulocytes % 1.4 % (0-4); Lymphocytes # 2.8 K/mcL (0.6-4.6); Lymphocytes % 22.1 %; Mean Corpuscular HGB Conc 30.8 g/dL (31.6-35.5); Mean Corpuscular Hemoglobin 25.3 pg (28.0-33.3); Mean Corpuscular Volume 82.1 fL (83.0-100.0); Mean Platelet Volume 11.2 fL (9.4-12.4); Monocytes # 0.9 K/mcL (0.0-1.3); Monocytes % 7.1 %; Neutrophils # 8.2 K/mcL (1.6-8.9); Platelet Count 266 K/mcL (140-400); Red Blood Count 4.87 M/mcL (3.82-4.97); Red Cell Distribution Width 18.3 % (11.5-14.5); White Blood Count 12.6 K/mcL (4.3-11.1)
[2020-09-05 23:38] LABS: Activated Partial Thrombo Time 27.3 Seconds (26.0-36.0)
[2020-09-05] MEDS ORDERED: Aspirin 81 MG TAB.CHEW PO ONE (23:45)
[2020-09-05] MEDS ORDERED: methylPREDNISolone 125 MG/2 ML VIAL IVP ONE (23:46)
[2020-09-05] MEDS ORDERED: Ipratropium/Albuterol Neb 3 ML IH ONE (23:46)
[2020-09-05 23:55] LABS: Alanine Aminotransferase 9 Units/L (7-52); Albumin 2.7 g/dL (3.5-5.7); Albumin/Globulin Ratio 0.8 (1.1-2.2); Alkaline Phosphatase 95 Units/L (34-104); Aspartate Amino Transferase 13 Units/L (13-39); BUN/Creatinine Ratio 30 (6-26); Bilirubin,Direct 0.1 mg/dL (0.0-0.2); Bilirubin,Indirect 0.2 mg/dL (0.0-1.0); Bilirubin,Total 0.3 mg/dL (0.3-1.0); Blood Urea Nitrogen 21 mg/dL (8-23); Calcium 8.4 mg/dL (8.6-10.3); Carbon Dioxide 24 mEq/L (23-29); Chloride 101 mEq/L (98-107); Globulin 3.2 g/dL (2.4-3.5); Glucose 141 mg/dL (70-105); Osmolality,Calculated 281 (280-300); Sodium 133 mEq/L (136-145); Total Protein 5.9 g/dL (6.4-8.9); Troponin I < 0.03 ng/mL (< 0.04); eGFR For African Americans > 60 (> 60); eGFR For Non-African Americans > 60 (> 60)
[2020-09-06] MEDS ORDERED: Azithromycin 500 MG in 0.9 % Sodium Chloride 250 ML IVPB ONE (02:32)
[2020-09-06] MEDS ORDERED: Ondansetron 4 MG/2 ML VIAL IVP PRN (05:08)
[2020-09-06] MEDS ORDERED: Naloxone 0.4 MG/ML INJ IVP PRN (05:08)
[2020-09-06] MEDS ORDERED: Acetaminophen 325 MG TABLET PO PRN (05:08)
[2020-09-06 06:16] LABS: Hematocrit 42.4 % (35.3-44.9); Hemoglobin 12.8 g/dL (11.5-15.4); Mean Corpuscular HGB Conc 30.2 g/dL (31.6-35.5); Mean Corpuscular Hemoglobin 25.3 pg (28.0-33.3); Mean Corpuscular Volume 83.8 fL (83.0-100.0); Mean Platelet Volume 10.8 fL (9.4-12.4); Platelet Count 250 K/mcL (140-400); Red Blood Count 5.06 M/mcL (3.82-4.97); Red Cell Distribution Width 18.4 % (11.5-14.5); White Blood Count 10.4 K/mcL (4.3-11.1)
[2020-09-06 06:42] LABS: BUN/Creatinine Ratio 33 (6-26); Blood Urea Nitrogen 21 mg/dL (8-23); Calcium 8.6 mg/dL (8.6-10.3); Carbon Dioxide 22 mEq/L (23-29); Chloride 103 mEq/L (98-107); Glucose 217 mg/dL (70-105); Osmolality,Calculated 288 (280-300); Potassium 5.2 mEq/L (3.5-5.1); Sodium 134 mEq/L (136-145); eGFR For African Americans > 60 (> 60); eGFR For Non-African Americans > 60 (> 60)
[2020-09-06 06:43] LABS: Magnesium 1.8 mg/dL (1.6-2.6); Phosphorous 4.7 mg/dL (2.7-4.5)
[2020-09-06] MEDS ORDERED: Dextrose Gel 15 GM/37.5 ML TUBE PO PRN ×2 (07:05)
[2020-09-06] MEDS ORDERED: *HR* Dextrose 50 % in Water (Vial) 50 ML VIAL IVP PRN (07:05)
[2020-09-06] MEDS ORDERED: D5% in Water 1,000 ML IVC PRN (07:05)
[2020-09-06] MEDS ORDERED: Albuterol 2.5 MG/3 ML NEBULIZER IH PRN (07:06)
[2020-09-06] MEDS ORDERED: Azithromycin 500 MG in D5% in Water 250 ML IVPB SCH (08:00)
[2020-09-06] MEDS ORDERED: Nitroglycerin 0.4 MG TAB.SUBL SL PRN (08:21)
[2020-09-06] MEDS ORDERED: lisinopriL 5 MG TABLET PO SCH (09:00)
[2020-09-06] MEDS ORDERED: Metoprolol XL (24 HR) Succ 50 MG TAB.ER.24H PO SCH (09:00)
[2020-09-06] MEDS ORDERED: Gabapentin 400 MG CAPSULE PO SCH ×2 (09:00→21:00)
[2020-09-06] MEDS: Gabapentin 400 MG CAPSULE PO SCH ×3 (10:10→17:41)
[2020-09-06] MEDS: predniSONE 20 MG TABLET PO SCH (10:11)
[2020-09-06] MEDS: Aspirin Enteric Coated 81 MG Tablet PO SCH (10:11)
[2020-09-06] MEDS: Furosemide 20 MG/2 ML VIAL IVP SCH ×2 (10:11→21:29)
[2020-09-06] MEDS: Insulin LISPRO 300 UNITS/3 ML VIAL SUBQ SCH ×4 (10:12→23:27)
[2020-09-06] MEDS ORDERED: Insulin LISPRO 300 UNITS/3 ML VIAL SUBQ SCH ×2 (12:00→21:30)
[2020-09-06] MEDS: Budesonide/Formoterol 160/4.5 1 PUFF INH IH SCH ×2 (12:01→21:58)
[2020-09-06] MEDS: Ipratropium/Albuterol Neb 3 ML IH SCH ×3 (12:04→21:58)
[2020-09-06] MEDS: Sucralfate 1 GM TABLET PO SCH ×3 (12:09→21:29)
[2020-09-06] MEDS: *HR* Heparin 5,000 UNIT/ML VIAL SQ SCH (17:41)
[2020-09-06] MEDS: Insulin DETEMIR 100 UNIT/ML X5UNITS SUBQ SCH (21:29)
[2020-09-07 03:07] LABS: Eosinophils % 0.3 %; Mean Corpuscular Volume 86.2 fL (83.0-100.0)
[2020-09-07 03:09] LABS: Basophils # 0.1 K/mcL (0.0-0.2); Basophils % 0.7 %; Hematocrit 39.3 % (35.3-44.9); Hemoglobin 11.9 g/dL (11.5-15.4); Immature Granulocytes % 1.4 % (0-4); Immature Platelets 4.9 % (1.1-6.1); Lymphocytes # 2.6 K/mcL (0.6-4.6); Mean Corpuscular HGB Conc 30.3 g/dL (31.6-35.5); Mean Corpuscular Hemoglobin 26.1 pg (28.0-33.3); Mean Platelet Volume 10.8 fL (9.4-12.4); Monocytes # 1.3 K/mcL (0.0-1.3); Monocytes % 10.4 %; Neutrophils # 8.1 K/mcL (1.6-8.9); Platelet Count 171 K/mcL (140-400); Red Blood Count 4.56 M/mcL (3.82-4.97); Red Cell Distribution Width 18.7 % (11.5-14.5); Segmented Neutrophils % 66.2 %; White Blood Count 12.2 K/mcL (4.3-11.1)
[2020-09-07 03:39] LABS: BUN/Creatinine Ratio 33 (6-26); Blood Urea Nitrogen 32 mg/dL (8-23); Calcium 8.2 mg/dL (8.6-10.3); Carbon Dioxide 18 mEq/L (23-29); Chloride 105 mEq/L (98-107); Glucose 192 mg/dL (70-105); Osmolality,Calculated 290 (280-300); Phosphorous 4.4 mg/dL (2.7-4.5); Potassium 4.9 mEq/L (3.5-5.1); Sodium 134 mEq/L (136-145); eGFR For African Americans > 60 (> 60); eGFR For Non-African Americans 58 (> 60)
[2020-09-07] MEDS: Ipratropium/Albuterol Neb 3 ML IH SCH ×2 (04:05→10:35)
[2020-09-07] MEDS: *HR* Heparin 5,000 UNIT/ML VIAL SQ SCH (05:38)
[2020-09-07] MEDS: Sucralfate 1 GM TABLET PO SCH (05:39)
[2020-09-07] MEDS ORDERED: Insulin LISPRO 300 UNITS/3 ML VIAL SUBQ SCH (07:30)
[2020-09-07 07:42] VITALS: BP 100/60
[2020-09-07] MEDS: Budesonide/Formoterol 160/4.5 1 PUFF INH IH SCH (07:58)
[2020-09-07] MEDS: Furosemide 20 MG/2 ML VIAL IVP SCH (08:19)
[2020-09-07] MEDS: Gabapentin 400 MG CAPSULE PO SCH (08:20)
[2020-09-07] MEDS: Aspirin Enteric Coated 81 MG Tablet PO SCH (08:20)
[2020-09-07] MEDS: predniSONE 20 MG TABLET PO SCH (08:20)
[2020-09-07] MEDS: Insulin DETEMIR 100 UNIT/ML X5UNITS SUBQ SCH (08:22)
[2020-09-08] MEDS ORDERED: BUPRENORPHINE TP SCH (08:53)
== END 2020-09-07 12:02 | disposition home or self-care (01) ==
LOC: 3BNU 22:23 → EMEROOARM 22:23 → SUATTDRO 09-06 03:04 → 3BNU 09-06 04:00
PROVIDERS: ADMIT Student in an Organized Health Care Education/Training Program; ATTEND Internal Medicine

== ENCOUNTER 2020-09-18 02:10 | Observation (INO) ==
[2020-09-18 03:13] LABS: Basophils # 0.1 K/mcL (0.0-0.2); Basophils % 0.6 %; Eosinophils # 0.3 K/mcL (0.0-0.6); Eosinophils % 1.8 %; Hematocrit 38.3 % (35.3-44.9); Hemoglobin 11.6 g/dL (11.5-15.4); Immature Granulocytes % 1.7 % (0-4); Lymphocytes # 2.9 K/mcL (0.6-4.6); Lymphocytes % 20.7 %; Mean Corpuscular HGB Conc 30.3 g/dL (31.6-35.5); Mean Corpuscular Hemoglobin 25.2 pg (28.0-33.3); Mean Corpuscular Volume 83.1 fL (83.0-100.0); Monocytes # 1.1 K/mcL (0.0-1.3); Monocytes % 7.8 %; Neutrophils # 9.5 K/mcL (1.6-8.9); Platelet Count 287 K/mcL (140-400); Red Blood Count 4.61 M/mcL (3.82-4.97); Red Cell Distribution Width 18.6 % (11.5-14.5); Segmented Neutrophils % 67.4 %; White Blood Count 14.2 K/mcL (4.3-11.1)
[2020-09-18 03:34] LABS: BUN/Creatinine Ratio 35 (6-26); Blood Urea Nitrogen 28 mg/dL (8-23); Calcium 8.3 mg/dL (8.6-10.3); Carbon Dioxide 24 mEq/L (23-29); Chloride 106 mEq/L (98-107); Glucose 226 mg/dL (70-105); Osmolality,Calculated 293 (280-300); Potassium 4.5 mEq/L (3.5-5.1); Sodium 135 mEq/L (136-145); Troponin I < 0.03 ng/mL (< 0.04); eGFR For African Americans > 60 (> 60); eGFR For Non-African Americans > 60 (> 60)
[2020-09-18] MEDS ORDERED: Furosemide 40 MG/4 ML VIAL IVP ONE (05:03)
[2020-09-18] MEDS ORDERED: Naloxone 0.4 MG/ML INJ IVP PRN (05:48)
[2020-09-18] MEDS ORDERED: Ondansetron ODT 4 MG TAB.RAPDIS SL PRN (05:48)
[2020-09-18] MEDS ORDERED: Acetaminophen 325 MG TABLET PO PRN (05:48)
[2020-09-18] MEDS ORDERED: Perflutren Lipid Microsphere 1.3 ML in 0.9 % Sodium Chloride 8.7 ML IVP PRN (05:52)
[2020-09-18] MEDS ORDERED: *HR* Dextrose 50 % in Water (Vial) 50 ML VIAL IVP PRN (05:53)
[2020-09-18] MEDS ORDERED: Dextrose Gel 15 GM/37.5 ML TUBE PO PRN ×2 (05:53)
[2020-09-18] MEDS ORDERED: D5% in Water 1,000 ML IVC PRN (05:53)
[2020-09-18] MEDS ORDERED: Ipratropium/Albuterol Neb 3 ML IH PRN (06:18)
[2020-09-18] MEDS ORDERED: GuaiFENesin/Codeine Oral Soln 5 ML UDC PO PRN (06:24)
[2020-09-18 07:24] LABS: Bacteria,Urine Few per hpf (None-Few); Bilirubin,Urine Negative (Negative); Blood,Urine Negative (Negative); Clarity,Urine Clear (Clear); Color,Urine Light-Yellow (Yellow); Glucose,Urine (UA) 30 mg/dL (Normal); Ketones,Urine Negative (Negative); Leukocyte Esterase,Urine Trace (Negative); Nitrite,Urine Negative (Negative); PH,Urine 6.5 pH Units (5.0-8.0); Protein,Urine 200 mg/dL (Neg-Trace); RBC,Urine 0-3 per hpf (0-3); Specific Gravity,Urine 1.011 (1.010-1.025); Squamous Epithelial Cell,Urine Few per hpf (None-Few); Urobilinogen,Urine Normal (Normal); WBC,Urine 15-30 per hpf (0-3)
[2020-09-18] MEDS: Insulin LISPRO 300 UNITS/3 ML VIAL SUBQ SCH ×3 (08:02→16:17)
[2020-09-18] MEDS ORDERED: Azithromycin 500 MG in 0.9 % Sodium Chloride 250 ML IVPB SCH (09:00)
[2020-09-18] MEDS: predniSONE 20 MG TABLET PO SCH (09:05)
[2020-09-18] MEDS: Gabapentin 400 MG CAPSULE PO SCH (16:16)
[2020-09-18] MEDS: Sucralfate 1 GM TABLET PO SCH ×2 (16:16→21:33)
[2020-09-18] MEDS ORDERED: Albuterol 2.5 MG/3 ML NEBULIZER IH PRN (19:41)
[2020-09-18] MEDS ORDERED: Insulin LISPRO 300 UNITS/3 ML VIAL SUBQ SCH (21:00)
[2020-09-18] MEDS ORDERED: Gabapentin 400 MG CAPSULE PO SCH (21:00)
[2020-09-18] MEDS ORDERED: Furosemide 40 MG/4 ML VIAL IVP SCH (21:00)
[2020-09-18] MEDS ORDERED: Insulin DETEMIR 100 UNIT/ML X5UNITS SUBQ SCH (21:00)
[2020-09-18] MEDS: Doxycycline 100 MG CAPSULE PO SCH (21:34)
[2020-09-18] MEDS: Furosemide 40 MG TABLET PO SCH (21:35)
[2020-09-18] MEDS: Budesonide/Formoterol 160/4.5 1 PUFF INH IH SCH (22:32)
[2020-09-19 02:21] LABS: Hematocrit 41.1 % (35.3-44.9); Hemoglobin 12.4 g/dL (11.5-15.4); Mean Corpuscular HGB Conc 30.2 g/dL (31.6-35.5); Mean Corpuscular Hemoglobin 25.6 pg (28.0-33.3); Mean Corpuscular Volume 84.7 fL (83.0-100.0); Platelet Count 304 K/mcL (140-400); Red Blood Count 4.85 M/mcL (3.82-4.97); White Blood Count 15.9 K/mcL (4.3-11.1)
[2020-09-19 02:28] LABS: Prothrombin Time 11.6 Seconds (9.4-12.1)
[2020-09-19 02:41] LABS: Alanine Aminotransferase 8 Units/L (7-52); Albumin 2.7 g/dL (3.5-5.7); Albumin/Globulin Ratio 0.8 (1.1-2.2); Alkaline Phosphatase 94 Units/L (34-104); Aspartate Amino Transferase 8 Units/L (13-39); BUN/Creatinine Ratio 33 (6-26); Bilirubin,Total 0.4 mg/dL (0.3-1.0); Blood Urea Nitrogen 20 mg/dL (8-23); Calcium 8.6 mg/dL (8.6-10.3); Carbon Dioxide 26 mEq/L (23-29); Chloride 107 mEq/L (98-107); Globulin 3.2 g/dL (2.4-3.5); Glucose 134 mg/dL (70-105); Magnesium 1.7 mg/dL (1.6-2.6); Osmolality,Calculated 293 (280-300); Phosphorous 3.6 mg/dL (2.7-4.5); Potassium 4.1 mEq/L (3.5-5.1); Sodium 139 mEq/L (136-145); Total Protein 5.9 g/dL (6.4-8.9); eGFR For African Americans > 60 (> 60); eGFR For Non-African Americans > 60 (> 60)
[2020-09-19 07:33] VITALS: BP 157/74
[2020-09-19] MEDS: Budesonide/Formoterol 160/4.5 1 PUFF INH IH SCH (08:31)
[2020-09-19] MEDS: Doxycycline 100 MG CAPSULE PO SCH (08:36)
[2020-09-19] MEDS: Furosemide 40 MG TABLET PO SCH (08:37)
[2020-09-19] MEDS: Sucralfate 1 GM TABLET PO SCH ×2 (08:37→13:03)
[2020-09-19] MEDS: predniSONE 20 MG TABLET PO SCH (08:37)
[2020-09-19] MEDS: Insulin LISPRO 300 UNITS/3 ML VIAL SUBQ SCH ×2 (08:38→13:03)
[2020-09-19] MEDS: Gabapentin 400 MG CAPSULE PO SCH ×2 (08:43→13:17)
[2020-09-19] MEDS ORDERED: Tiotropium 10 INH DOSE IH SCH (09:00)
[2020-09-19] MEDS ORDERED: Metoprolol XL (24 HR) Succ 50 MG TAB.ER.24H PO SCH (09:00)
[2020-09-19] MEDS ORDERED: Aspirin Enteric Coated 81 MG Tablet PO SCH (09:00)
[2020-09-19] MEDS ORDERED: Chloraseptic Spray 177 ML BOTTLE MM PRN (09:56)
[2020-09-20] MEDS ORDERED: Patient Taking Own Medication 1 EACH TP SCH (15:06)
== END 2020-09-19 14:07 | disposition home health service (06) ==
LOC: 3BNU 02:10 → EMEROOARM 02:10 → SUATTDRO 05:15 → 3BNU 05:50
PROVIDERS: ADMIT Family Medicine; ATTEND Internal Medicine

== ENCOUNTER 2020-10-05 08:07 | Observation (INO) ==
[2020-10-05 08:47] LABS: Basophils # 0.1 K/mcL (0.0-0.2); Basophils % 0.7 %; Eosinophils # 0.3 K/mcL (0.0-0.6); Eosinophils % 2.5 %; Hematocrit 42.4 % (35.3-44.9); Hemoglobin 12.8 g/dL (11.5-15.4); Immature Granulocytes % 1.5 % (0-4); Lymphocytes % 18.1 %; Mean Corpuscular HGB Conc 30.2 g/dL (31.6-35.5); Mean Corpuscular Hemoglobin 25.8 pg (28.0-33.3); Mean Corpuscular Volume 85.5 fL (83.0-100.0); Mean Platelet Volume 10.5 fL (9.4-12.4); Monocytes # 0.8 K/mcL (0.0-1.3); Monocytes % 7.3 %; Neutrophils # 7.7 K/mcL (1.6-8.9); Nucleated Red Blood Cells 0.2 /100 WBC (0); Platelet Count 257 K/mcL (140-400); Red Blood Count 4.96 M/mcL (3.82-4.97); Red Cell Distribution Width 18.5 % (11.5-14.5); Segmented Neutrophils % 69.9 %
[2020-10-05 09:08] LABS: Alanine Aminotransferase 9 Units/L (7-52); Albumin/Globulin Ratio 0.9 (1.1-2.2); Alkaline Phosphatase 107 Units/L (34-104); Aspartate Amino Transferase 9 Units/L (13-39); BUN/Creatinine Ratio 29 (6-26); Bilirubin,Direct 0.1 mg/dL (0.0-0.2); Bilirubin,Indirect 0.2 mg/dL (0.0-1.0); Bilirubin,Total 0.3 mg/dL (0.3-1.0); Blood Urea Nitrogen 31 mg/dL (8-23); Calcium 8.8 mg/dL (8.6-10.3); Carbon Dioxide 27 mEq/L (23-29); Chloride 102 mEq/L (98-107); Globulin 3.3 g/dL (2.4-3.5); Glucose 163 mg/dL (70-105); Osmolality,Calculated 292 (280-300); Potassium 4.3 mEq/L (3.5-5.1); Sodium 136 mEq/L (136-145); Total Protein 6.3 g/dL (6.4-8.9); Troponin I 0.05 ng/mL (< 0.04); eGFR For African Americans > 60 (> 60); eGFR For Non-African Americans 52 (> 60)
[2020-10-05] MEDS ORDERED: Aspirin 81 MG TAB.CHEW PO ONE (09:11)
[2020-10-05] MEDS ORDERED: *HR* Heparin 5,000 UNIT/ML VIAL IVP PRN ×2 (10:11)
[2020-10-05] MEDS ORDERED: *HR* Heparin 5,000 UNIT/ML VIAL IVP ONE (10:11)
[2020-10-05] MEDS: Heparin 25,000UNIT/250ML 1/2NS 25,000 UNIT/250 ML IV.SOLN IVC SCH (10:24)
[2020-10-05 10:48] LABS: INR 0.9; Prothrombin Time 10.7 Seconds (9.4-12.1)
[2020-10-05 10:50] LABS: Heparin anti-factor XA UFH < 0.04 IU/mL (0.30-0.70)
[2020-10-05] MEDS ORDERED: Naloxone 0.4 MG/ML INJ IVP PRN (11:13)
[2020-10-05] MEDS ORDERED: Nitroglycerin 0.4 MG TAB.SUBL SL PRN (14:07)
[2020-10-05] MEDS ORDERED: SUMAtriptan succinate 50 MG TABLET PO PRN (14:07)
[2020-10-05] MEDS ORDERED: Perflutren Lipid Microsphere 1.3 ML in 0.9 % Sodium Chloride 8.7 ML IVP PRN (14:21)
[2020-10-05] MEDS: Sucralfate 1 GM TABLET PO SCH ×2 (15:54→20:00)
[2020-10-05] MEDS: Gabapentin 400 MG CAPSULE PO SCH (15:54)
[2020-10-05] MEDS: Furosemide 40 MG TABLET PO SCH (20:00)
[2020-10-05] MEDS: Budesonide/Formoterol 160/4.5 1 PUFF INH IH SCH (20:29)
[2020-10-05] MEDS ORDERED: Gabapentin 400 MG CAPSULE PO SCH (21:00)
[2020-10-06 02:46] LABS: Basophils # 0.1 K/mcL (0.0-0.2); Basophils % 0.7 %; Eosinophils # 0.3 K/mcL (0.0-0.6); Eosinophils % 2.7 %; Hematocrit 41.4 % (35.3-44.9); Hemoglobin 12.1 g/dL (11.5-15.4); Immature Granulocytes % 1.4 % (0-4); Lymphocytes # 2.7 K/mcL (0.6-4.6); Lymphocytes % 24.7 %; Mean Corpuscular HGB Conc 29.2 g/dL (31.6-35.5); Mean Corpuscular Hemoglobin 25.4 pg (28.0-33.3); Mean Corpuscular Volume 86.8 fL (83.0-100.0); Mean Platelet Volume 10.7 fL (9.4-12.4); Monocytes # 0.8 K/mcL (0.0-1.3); Monocytes % 7.5 %; Neutrophils # 6.8 K/mcL (1.6-8.9); Nucleated Red Blood Cells 0.2 /100 WBC (0); Platelet Count 242 K/mcL (140-400); Red Blood Count 4.77 M/mcL (3.82-4.97); Red Cell Distribution Width 18.2 % (11.5-14.5); White Blood Count 10.8 K/mcL (4.3-11.1)
[2020-10-06 03:12] LABS: BUN/Creatinine Ratio 30 (6-26); Blood Urea Nitrogen 24 mg/dL (8-23); Calcium 8.8 mg/dL (8.6-10.3); Carbon Dioxide 29 mEq/L (23-29); Chloride 104 mEq/L (98-107); Glucose 172 mg/dL (70-105); Osmolality,Calculated 292 (280-300); Sodium 137 mEq/L (136-145); eGFR For African Americans > 60 (> 60); eGFR For Non-African Americans > 60 (> 60)
[2020-10-06] MEDS: Gabapentin 400 MG CAPSULE PO SCH ×2 (06:44→10:29)
[2020-10-06] MEDS: Budesonide/Formoterol 160/4.5 1 PUFF INH IH SCH (07:50)
[2020-10-06] MEDS: Heparin 25,000UNIT/250ML 1/2NS 25,000 UNIT/250 ML IV.SOLN IVC SCH (08:02)
[2020-10-06] MEDS ORDERED: Metoprolol XL (24 HR) Succ 50 MG TAB.ER.24H PO SCH (09:00)
[2020-10-06] MEDS ORDERED: Tiotropium 10 INH DOSE IH SCH (09:00)
[2020-10-06] MEDS ORDERED: lisinopriL 10 MG TABLET PO SCH (09:00)
[2020-10-06] MEDS ORDERED: Aspirin Enteric Coated 81 MG Tablet PO SCH (09:00)
[2020-10-06] MEDS: Furosemide 40 MG TABLET PO SCH (10:23)
[2020-10-06] MEDS: Sucralfate 1 GM TABLET PO SCH ×2 (10:28→10:29)
[2020-10-06] MEDS ORDERED: Gabapentin 400 MG CAPSULE PO SCH ×2 (12:00→21:00)
[2020-10-06 13:33] VITALS: BP 151/68
[2020-10-11] MEDS ORDERED: BUPRENORPHINE TP SCH (14:07)
== END 2020-10-06 17:24 | disposition home or self-care (01) ==
LOC: EMEROOARM 08:07 → 3ANU 08:07 → SUATTDRO 12:26 → 3ANU 12:59
PROVIDERS: ADMIT Internal Medicine; ATTEND Internal Medicine

== ENCOUNTER 2020-10-15 17:36 | Observation (INO) ==
[2020-10-15] MEDS ORDERED: *HR* FentaNYL (PF) 100 MCG/2 ML VIAL IVP ONE ×2 (18:14→20:04)
[2020-10-15 18:29] LABS: Basophils # 0.1 K/mcL (0.0-0.2); Eosinophils # 0.4 K/mcL (0.0-0.6); Eosinophils % 2.9 %; Hematocrit 39.1 % (35.3-44.9); Hemoglobin 11.8 g/dL (11.5-15.4); Immature Granulocytes % 2.1 % (0-4); Lymphocytes % 27.7 %; Mean Corpuscular HGB Conc 30.2 g/dL (31.6-35.5); Mean Corpuscular Hemoglobin 25.1 pg (28.0-33.3); Mean Corpuscular Volume 83.2 fL (83.0-100.0); Mean Platelet Volume 10.6 fL (9.4-12.4); Monocytes # 1.3 K/mcL (0.0-1.3); Monocytes % 8.9 %; Neutrophils # 8.4 K/mcL (1.6-8.9); Nucleated Red Blood Cells 0.1 /100 WBC (0); Platelet Count 345 K/mcL (140-400); Red Cell Distribution Width 17.6 % (11.5-14.5); Segmented Neutrophils % 57.4 %; White Blood Count 14.6 K/mcL (4.3-11.1)
[2020-10-15 18:34] LABS: INR 0.9; Prothrombin Time 10.7 Seconds (9.4-12.1)
[2020-10-15 18:36] LABS: Activated Partial Thrombo Time 27.3 Seconds (26.0-36.0)
[2020-10-15 18:48] LABS: BUN/Creatinine Ratio 37 (6-26); Blood Urea Nitrogen 33 mg/dL (8-23); Calcium 8.8 mg/dL (8.6-10.3); Carbon Dioxide 28 mEq/L (23-29); Chloride 103 mEq/L (98-107); Glucose 47 mg/dL (70-105); Osmolality,Calculated 282 (280-300); Potassium 4.6 mEq/L (3.5-5.1); Sodium 134 mEq/L (136-145); Troponin I < 0.03 ng/mL (< 0.04); eGFR For African Americans > 60 (> 60); eGFR For Non-African Americans > 60 (> 60)
[2020-10-15] MEDS ORDERED: Naloxone 0.4 MG/ML INJ IVP PRN (21:41)
[2020-10-15] MEDS: Budesonide/Formoterol 160/4.5 1 PUFF INH IH SCH (22:02)
[2020-10-16 01:29] LABS: Hematocrit 38.2 % (35.3-44.9); Hemoglobin 11.4 g/dL (11.5-15.4); Mean Corpuscular HGB Conc 29.8 g/dL (31.6-35.5); Mean Corpuscular Hemoglobin 25.6 pg (28.0-33.3); Mean Corpuscular Volume 85.8 fL (83.0-100.0); Mean Platelet Volume 11.3 fL (9.4-12.4); Platelet Count 297 K/mcL (140-400); Red Blood Count 4.45 M/mcL (3.82-4.97); Red Cell Distribution Width 17.7 % (11.5-14.5); White Blood Count 11.6 K/mcL (4.3-11.1)
[2020-10-16 01:49] LABS: BUN/Creatinine Ratio 36 (6-26); Blood Urea Nitrogen 34 mg/dL (8-23); Calcium 8.3 mg/dL (8.6-10.3); Carbon Dioxide 25 mEq/L (23-29); Chloride 105 mEq/L (98-107); Glucose 126 mg/dL (70-105); Osmolality,Calculated 289 (280-300); Potassium 4.8 mEq/L (3.5-5.1); Sodium 135 mEq/L (136-145); eGFR For African Americans > 60 (> 60); eGFR For Non-African Americans > 60 (> 60)
[2020-10-16] MEDS: Nitroglycerin 0.4 MG TAB.SUBL SL PRN ×2 (02:06→02:11)
[2020-10-16] MEDS ORDERED: Morphine Sulfate 2 MG/ML SYRINGE IVP PRN (03:45)
[2020-10-16] MEDS ORDERED: D5% in Water 1,000 ML IVC PRN (07:32)
[2020-10-16] MEDS ORDERED: Dextrose Gel 15 GM/37.5 ML TUBE PO PRN ×2 (07:32)
[2020-10-16] MEDS ORDERED: *HR* Dextrose 50 % in Water (Vial) 50 ML VIAL IVP PRN (07:32)
[2020-10-16] MEDS ORDERED: Tiotropium 10 INH DOSE IH ONE (07:48)
[2020-10-16] MEDS: Budesonide/Formoterol 160/4.5 1 PUFF INH IH SCH ×2 (07:49→19:59)
[2020-10-16] MEDS: Tiotropium 10 INH DOSE IH SCH (07:51)
[2020-10-16] MEDS ORDERED: Isovue-370 500 ML BOTTLE IVP ONE ×2 (09:18→10:01)
[2020-10-16 09:42] LABS: VBG HCO3 30 mEq/L (21-27); VBG PCO2 54 mmHg (41-51); VBG PH 7.35 pH Units (7.32-7.42); VBG PO2 99 mmHg (25-50)
[2020-10-16] MEDS ORDERED: *HR* Metoprolol 5 MG/5 ML VIAL IVP PRN (10:01)
[2020-10-16] MEDS: Sucralfate 1 GM TABLET PO SCH ×4 (10:36→20:05)
[2020-10-16] MEDS: Metoprolol XL (24 HR) Succ 50 MG TAB.ER.24H PO SCH (10:36)
[2020-10-16] MEDS: lisinopriL 10 MG TABLET PO SCH (10:38)
[2020-10-16] MEDS: Furosemide 40 MG TABLET PO SCH ×2 (10:40→17:46)
[2020-10-16] MEDS: Aspirin Enteric Coated 81 MG Tablet PO SCH (10:42)
[2020-10-16] MEDS: Gabapentin 400 MG CAPSULE PO SCH ×3 (11:02→17:53)
[2020-10-16] MEDS: Insulin LISPRO 300 UNITS/3 ML VIAL SUBQ SCH ×2 (11:41→17:30)
[2020-10-16 12:49] LABS: Adenovirus Not Detected (Not Detect); Coronavirus 229E Not Detected (Not Detect); Coronavirus HKU1 Not Detected (Not Detect); Coronavirus NL63 Not Detected (Not Detect); Coronavirus OC43 Not Detected (Not Detect); Human Metapneumovirus Not Detected (Not Detect); Human Rhinovirus/Enterovirus Not Detected (Not Detect); Influenza A Subtype 2009 H1 Not Detected (Not Detect); SARS-CoV-2 Not Detected (Not Detect)
[2020-10-16 12:50] LABS: Bordetella Pertussis Not Detected (Not Detect); Chlamydophila pneumoniae Not Detected (Not Detect); Influenza B Not Detected (Not Detect); Mycoplasma pneumoniae Not Detected (Not Detect); Parainfluenza Virus 1 Not Detected (Not Detect); Parainfluenza Virus 2 Not Detected (Not Detect); Parainfluenza Virus 3 Not Detected (Not Detect); Parainfluenza Virus 4 Not Detected (Not Detect); Respiratory Syncytial Virus Not Detected (Not Detect)
[2020-10-16] MEDS ORDERED: Piperacillin/Tazobactam 3.375 GM in 0.9 % Sodium Chloride Mini Bag 100 ML IVPB SCH (15:00)
[2020-10-16] MEDS: Piperacillin/Tazobactam 3.375 GM in 0.9 % Sodium Chloride Mini Bag 100 ML IVPB SCH (17:47)
[2020-10-16] MEDS: Doxycycline 100 MG in 0.9 % Sodium Chloride Mini Bag 100 ML IVPB SCH (17:47)
[2020-10-16] MEDS: Isosorbide MONOnitrate (24 HR) 60 MG TAB.ER.24H PO SCH (17:48)
[2020-10-16] MEDS: *HR* Enoxaparin 40 MG/0.4 ML SYRINGE SQ SCH (17:48)
[2020-10-16] MEDS ORDERED: Gabapentin 400 MG CAPSULE PO SCH ×2 (21:00)
[2020-10-16] MEDS ORDERED: Insulin DETEMIR 100 UNIT/ML X5UNITS SUBQ SCH (21:00)
[2020-10-17] MEDS: Piperacillin/Tazobactam 3.375 GM in 0.9 % Sodium Chloride Mini Bag 100 ML IVPB SCH ×2 (00:13→08:48)
[2020-10-17] MEDS: Doxycycline 100 MG in 0.9 % Sodium Chloride Mini Bag 100 ML IVPB SCH (03:02)
[2020-10-17 04:37] LABS: Basophils # 0.1 K/mcL (0.0-0.2); Basophils % 0.8 %; Eosinophils # 0.2 K/mcL (0.0-0.6); Eosinophils % 1.9 %; Hematocrit 38.2 % (35.3-44.9); Hemoglobin 11.3 g/dL (11.5-15.4); Immature Granulocytes % 1.3 % (0-4); Lymphocytes # 2.4 K/mcL (0.6-4.6); Lymphocytes % 23.8 %; Mean Corpuscular HGB Conc 29.6 g/dL (31.6-35.5); Mean Corpuscular Hemoglobin 25.3 pg (28.0-33.3); Mean Corpuscular Volume 85.7 fL (83.0-100.0); Mean Platelet Volume 11.2 fL (9.4-12.4); Monocytes # 0.9 K/mcL (0.0-1.3); Monocytes % 8.4 %; Neutrophils # 6.6 K/mcL (1.6-8.9); Platelet Count 282 K/mcL (140-400); Red Blood Count 4.46 M/mcL (3.82-4.97); Red Cell Distribution Width 17.6 % (11.5-14.5); Segmented Neutrophils % 63.8 %; White Blood Count 10.3 K/mcL (4.3-11.1)
[2020-10-17 04:58] LABS: Alanine Aminotransferase 13 Units/L (7-52); Albumin 2.6 g/dL (3.5-5.7); Albumin/Globulin Ratio 0.8 (1.1-2.2); Alkaline Phosphatase 103 Units/L (34-104); Aspartate Amino Transferase 13 Units/L (13-39); BUN/Creatinine Ratio 32 (6-26); Bilirubin,Total 0.4 mg/dL (0.3-1.0); Blood Urea Nitrogen 27 mg/dL (8-23); Calcium 8.7 mg/dL (8.6-10.3); Carbon Dioxide 28 mEq/L (23-29); Chloride 107 mEq/L (98-107); Globulin 3.2 g/dL (2.4-3.5); Glucose 129 mg/dL (70-105); Osmolality,Calculated 295 (280-300); Potassium 4.3 mEq/L (3.5-5.1); Sodium 139 mEq/L (136-145); Total Protein 5.8 g/dL (6.4-8.9); eGFR For African Americans > 60 (> 60); eGFR For Non-African Americans > 60 (> 60)
[2020-10-17] MEDS: *HR* Enoxaparin 40 MG/0.4 ML SYRINGE SQ SCH (05:23)
[2020-10-17] MEDS: Tiotropium 10 INH DOSE IH SCH (08:04)
[2020-10-17] MEDS: Budesonide/Formoterol 160/4.5 1 PUFF INH IH SCH (08:05)
[2020-10-17] MEDS: Sucralfate 1 GM TABLET PO SCH ×2 (08:50→11:29)
[2020-10-17] MEDS: Isosorbide MONOnitrate (24 HR) 60 MG TAB.ER.24H PO SCH (08:50)
[2020-10-17] MEDS: lisinopriL 10 MG TABLET PO SCH (08:50)
[2020-10-17] MEDS: Aspirin Enteric Coated 81 MG Tablet PO SCH (08:50)
[2020-10-17] MEDS: Metoprolol XL (24 HR) Succ 50 MG TAB.ER.24H PO SCH (08:50)
[2020-10-17] MEDS: Furosemide 40 MG TABLET PO SCH (08:50)
[2020-10-17] MEDS: Insulin LISPRO 300 UNITS/3 ML VIAL SUBQ SCH ×2 (09:02→11:30)
[2020-10-17] MEDS: Gabapentin 400 MG CAPSULE PO SCH (09:53)
[2020-10-17] MEDS ORDERED: *HR* OxyCODONE/APAP 5/325 TABLET PO PRN (10:27)
[2020-10-17 11:32] VITALS: BP 165/74
[2020-10-18] MEDS ORDERED: Buprenorphine [Butrans 20 Mcg/Hr] TP SCH (09:00)
== END 2020-10-17 14:21 | disposition home health service (06) ==
LOC: EMEROOARM 17:36 → 2ANU 17:36 → SUATTDRO 20:47 → 2ANU 21:29
PROVIDERS: ADMIT Family Medicine; ATTEND Internal Medicine

== ENCOUNTER 2020-10-21 00:55 | Observation (INO) ==
[2020-10-21] MEDS ORDERED: Isovue-370 500 ML BOTTLE IVP ONE (01:10)
[2020-10-21 01:27] LABS: Basophils # 0.1 K/mcL (0.0-0.2); Basophils % 0.9 %; Eosinophils # 0.4 K/mcL (0.0-0.6); Eosinophils % 2.9 %; Hematocrit 40.4 % (35.3-44.9); Hemoglobin 12.3 g/dL (11.5-15.4); Immature Granulocytes % 1.5 % (0-4); Lymphocytes # 3.7 K/mcL (0.6-4.6); Lymphocytes % 28.7 %; Mean Corpuscular HGB Conc 30.4 g/dL (31.6-35.5); Mean Corpuscular Hemoglobin 25.4 pg (28.0-33.3); Mean Corpuscular Volume 83.3 fL (83.0-100.0); Mean Platelet Volume 10.9 fL (9.4-12.4); Monocytes # 0.9 K/mcL (0.0-1.3); Neutrophils # 7.6 K/mcL (1.6-8.9); Nucleated Red Blood Cells 0.2 /100 WBC (0); Platelet Count 290 K/mcL (140-400); Red Blood Count 4.85 M/mcL (3.82-4.97); Red Cell Distribution Width 17.6 % (11.5-14.5); White Blood Count 12.9 K/mcL (4.3-11.1)
[2020-10-21 01:44] LABS: BUN/Creatinine Ratio 41 (6-26); Blood Urea Nitrogen 37 mg/dL (8-23); Calcium 8.7 mg/dL (8.6-10.3); Carbon Dioxide 25 mEq/L (23-29); Chloride 105 mEq/L (98-107); Glucose 136 mg/dL (70-105); Osmolality,Calculated 293 (280-300); Potassium 5.3 mEq/L (3.5-5.1); Sodium 136 mEq/L (136-145); eGFR For African Americans > 60 (> 60); eGFR For Non-African Americans > 60 (> 60)
[2020-10-21 01:45] LABS: Troponin I < 0.03 ng/mL (< 0.04)
[2020-10-21] MEDS ORDERED: 0.9 % Sodium Chloride 1,000 ML IVC ONE (02:02)
[2020-10-21 02:24] LABS: Adenovirus Not Detected (Not Detect); Bordetella Pertussis Not Detected (Not Detect); Chlamydophila pneumoniae Not Detected (Not Detect); Coronavirus 229E Not Detected (Not Detect); Coronavirus HKU1 Not Detected (Not Detect); Coronavirus NL63 Not Detected (Not Detect); Coronavirus OC43 Not Detected (Not Detect); Human Metapneumovirus Not Detected (Not Detect); Human Rhinovirus/Enterovirus Not Detected (Not Detect); Influenza A Subtype 2009 H1 Not Detected (Not Detect); Influenza B Not Detected (Not Detect); Mycoplasma pneumoniae Not Detected (Not Detect); Parainfluenza Virus 1 Not Detected (Not Detect); Parainfluenza Virus 2 Not Detected (Not Detect); Parainfluenza Virus 3 Not Detected (Not Detect); Parainfluenza Virus 4 Not Detected (Not Detect); Respiratory Syncytial Virus Not Detected (Not Detect); SARS-CoV-2 Not Detected (Not Detect)
[2020-10-21] MEDS ORDERED: Aspirin 325 MG TABLET PO ONE (03:02)
[2020-10-21] MEDS ORDERED: Naloxone 0.4 MG/ML INJ IVP PRN (04:12)
[2020-10-21] MEDS ORDERED: Ondansetron 4 MG/2 ML VIAL IVP PRN (04:17)
[2020-10-21] MEDS ORDERED: *HR* Dextrose 50 % in Water (Vial) 50 ML VIAL IVP PRN (04:31)
[2020-10-21] MEDS ORDERED: Dextrose Gel 15 GM/37.5 ML TUBE PO PRN ×2 (04:31)
[2020-10-21] MEDS ORDERED: D5% in Water 1,000 ML IVC PRN (04:31)
[2020-10-21] MEDS: *HR* Heparin 5,000 UNIT/ML VIAL SQ SCH ×3 (04:42→20:18)
[2020-10-21] MEDS: Acetaminophen 325 MG TABLET PO PRN ×2 (04:42→20:19)
[2020-10-21] MEDS ORDERED: Ipratropium/Albuterol Neb 3 ML IH PRN (05:25)
[2020-10-21] MEDS ORDERED: Nitroglycerin 0.4 MG TAB.SUBL SL PRN (07:30)
[2020-10-21] MEDS ORDERED: SUMAtriptan succinate 50 MG TABLET PO PRN (07:30)
[2020-10-21] MEDS: Insulin LISPRO 300 UNITS/3 ML VIAL SUBQ SCH ×3 (07:49→16:36)
[2020-10-21] MEDS ORDERED: BUPRENORPHINE TP SCH (08:30)
[2020-10-21] MEDS: lisinopriL 10 MG TABLET PO SCH (08:58)
[2020-10-21] MEDS: Aspirin Enteric Coated 81 MG Tablet PO SCH (08:58)
[2020-10-21] MEDS: Sucralfate 1 GM TABLET PO SCH ×4 (08:58→20:19)
[2020-10-21] MEDS: Isosorbide MONOnitrate (24 HR) 60 MG TAB.ER.24H PO SCH (08:58)
[2020-10-21] MEDS: Nicotine 14 MG PATCH.TD24 TD SCH (08:59)
[2020-10-21] MEDS: Insulin DETEMIR 100 UNIT/ML X5UNITS SUBQ SCH (09:07)
[2020-10-21] MEDS: Tiotropium 10 INH DOSE IH SCH (10:39)
[2020-10-21] MEDS: Budesonide/Formoterol 160/4.5 1 PUFF INH IH SCH ×2 (10:39→21:36)
[2020-10-21] MEDS: Gabapentin 400 MG CAPSULE PO SCH ×2 (16:03→16:41)
[2020-10-21] MEDS: levoFLOXacin 750 MG TABLET PO SCH (16:35)
[2020-10-21] MEDS: Furosemide 40 MG TABLET PO SCH (16:35)
[2020-10-21] MEDS ORDERED: Gabapentin 400 MG CAPSULE PO SCH (21:00)
[2020-10-21] MEDS ORDERED: Insulin DETEMIR 100 UNIT/ML X5UNITS SUBQ SCH (21:00)
[2020-10-21] MEDS ORDERED: Insulin LISPRO 300 UNITS/3 ML VIAL SUBQ SCH (21:00)
[2020-10-22 01:02] LABS: Basophils # 0.1 K/mcL (0.0-0.2); Basophils % 0.8 %; Eosinophils # 0.3 K/mcL (0.0-0.6); Eosinophils % 3.2 %; Hematocrit 37.9 % (35.3-44.9); Hemoglobin 11.1 g/dL (11.5-15.4); Immature Granulocytes % 0.9 % (0-4); Lymphocytes # 2.2 K/mcL (0.6-4.6); Lymphocytes % 22.7 %; Mean Corpuscular HGB Conc 29.3 g/dL (31.6-35.5); Mean Corpuscular Hemoglobin 25.5 pg (28.0-33.3); Mean Corpuscular Volume 86.9 fL (83.0-100.0); Mean Platelet Volume 11.1 fL (9.4-12.4); Monocytes # 0.7 K/mcL (0.0-1.3); Monocytes % 6.9 %; Neutrophils # 6.4 K/mcL (1.6-8.9); Platelet Count 269 K/mcL (140-400); Red Blood Count 4.36 M/mcL (3.82-4.97); Red Cell Distribution Width 17.7 % (11.5-14.5); Segmented Neutrophils % 65.5 %; White Blood Count 9.7 K/mcL (4.3-11.1)
[2020-10-22 01:20] LABS: Estimated Average Glucose 157 mg/dl; Hemoglobin A1C 7.1 %
[2020-10-22 01:23] LABS: BUN/Creatinine Ratio 32 (6-26); Blood Urea Nitrogen 24 mg/dL (8-23); Calcium 8.5 mg/dL (8.6-10.3); Carbon Dioxide 30 mEq/L (23-29); Chloride 106 mEq/L (98-107); Glucose 138 mg/dL (70-105); Magnesium 1.8 mg/dL (1.6-2.6); Osmolality,Calculated 296 (280-300); Potassium 4.3 mEq/L (3.5-5.1); Sodium 140 mEq/L (136-145); eGFR For African Americans > 60 (> 60); eGFR For Non-African Americans > 60 (> 60)
[2020-10-22] MEDS: *HR* Heparin 5,000 UNIT/ML VIAL SQ SCH ×2 (05:26→12:44)
[2020-10-22] MEDS ORDERED: Regadenoson 0.4 MG/5 ML SYRINGE IVP ONE (06:35)
[2020-10-22 10:44] VITALS: BP 162/82
[2020-10-22] MEDS: Aspirin Enteric Coated 81 MG Tablet PO SCH (10:48)
[2020-10-22] MEDS: Gabapentin 400 MG CAPSULE PO SCH ×3 (10:48→15:46)
[2020-10-22] MEDS: Furosemide 40 MG TABLET PO SCH ×2 (10:48→15:47)
[2020-10-22] MEDS: levoFLOXacin 750 MG TABLET PO SCH (10:48)
[2020-10-22] MEDS: lisinopriL 10 MG TABLET PO SCH (10:48)
[2020-10-22] MEDS: Isosorbide MONOnitrate (24 HR) 60 MG TAB.ER.24H PO SCH (10:48)
[2020-10-22] MEDS: Sucralfate 1 GM TABLET PO SCH ×3 (10:48→15:46)
[2020-10-22] MEDS: Nicotine 14 MG PATCH.TD24 TD SCH (10:49)
[2020-10-22] MEDS: Insulin DETEMIR 100 UNIT/ML X5UNITS SUBQ SCH (10:49)
[2020-10-22] MEDS: Insulin LISPRO 300 UNITS/3 ML VIAL SUBQ SCH ×2 (10:50)
[2020-10-22] MEDS: Budesonide/Formoterol 160/4.5 1 PUFF INH IH SCH (11:02)
[2020-10-22] MEDS: Tiotropium 10 INH DOSE IH SCH (11:02)
[2020-10-22] MEDS ORDERED: Metoprolol XL (24 HR) Succ 50 MG TAB.ER.24H PO SCH (15:45)
== END 2020-10-22 17:07 | disposition home or self-care (01) ==
LOC: 2ANU 00:55 → EMEROOARM 00:55 → SUATTDRO 03:32 → 2ANU 03:33
PROVIDERS: ADMIT Pharmacist; ATTEND General Practice

== ENCOUNTER 2020-10-30 02:56 | Observation (INO) ==
[2020-10-30] MEDS ORDERED: Aspirin 81 MG TAB.CHEW PO ONE (03:21)
[2020-10-30] MEDS ORDERED: Nitroglycerin 0.4 MG TAB.SUBL SL ONE (03:22)
[2020-10-30 04:04] LABS: Basophils # 0.1 K/mcL (0.0-0.2); Basophils % 0.9 %; Eosinophils # 0.4 K/mcL (0.0-0.6); Eosinophils % 2.6 %; Hematocrit 39.1 % (35.3-44.9); Hemoglobin 11.8 g/dL (11.5-15.4); Immature Granulocytes % 1.9 % (0-4); Lymphocytes # 4.3 K/mcL (0.6-4.6); Lymphocytes % 29.9 %; Mean Corpuscular HGB Conc 30.2 g/dL (31.6-35.5); Mean Corpuscular Hemoglobin 25.4 pg (28.0-33.3); Mean Corpuscular Volume 84.3 fL (83.0-100.0); Monocytes # 1.1 K/mcL (0.0-1.3); Monocytes % 7.5 %; Neutrophils # 8.2 K/mcL (1.6-8.9); Platelet Count 299 K/mcL (140-400); Red Blood Count 4.64 M/mcL (3.82-4.97); Red Cell Distribution Width 17.9 % (11.5-14.5); Segmented Neutrophils % 57.2 %; White Blood Count 14.4 K/mcL (4.3-11.1)
[2020-10-30 04:24] LABS: BUN/Creatinine Ratio 30 (6-26); Blood Urea Nitrogen 26 mg/dL (8-23); Calcium 8.5 mg/dL (8.6-10.3); Carbon Dioxide 24 mEq/L (23-29); Chloride 105 mEq/L (98-107); Glucose 53 mg/dL (70-105); Osmolality,Calculated 284 (280-300); Potassium 4.5 mEq/L (3.5-5.1); Sodium 136 mEq/L (136-145); Troponin I < 0.03 ng/mL (< 0.04); eGFR For African Americans > 60 (> 60); eGFR For Non-African Americans > 60 (> 60)
[2020-10-30] MEDS ORDERED: Acetaminophen 325 MG TABLET PO PRN (08:05)
[2020-10-30] MEDS ORDERED: *HR* HYDROcodone/Acet 5/325 mg TABLET PO PRN (08:05)
[2020-10-30] MEDS ORDERED: Ondansetron 4 MG/2 ML VIAL IVP PRN (08:05)
[2020-10-30] MEDS ORDERED: Naloxone 0.4 MG/ML INJ IVP PRN (08:05)
[2020-10-30] MEDS ORDERED: Melatonin 3 MG TABLET PO PRN (08:05)
[2020-10-30] MEDS: Nitroglycerin 0.4 MG TAB.SUBL SL PRN ×2 (08:57→09:06)
[2020-10-30] MEDS ORDERED: Dextrose Gel 15 GM/37.5 ML TUBE PO PRN ×2 (09:23)
[2020-10-30] MEDS ORDERED: D5% in Water 1,000 ML IVC PRN (09:23)
[2020-10-30] MEDS ORDERED: *HR* Dextrose 50 % in Water (Vial) 50 ML VIAL IVP PRN (09:23)
[2020-10-30] MEDS ORDERED: Ipratropium/Albuterol Neb 3 ML IH PRN (09:28)
[2020-10-30] MEDS ORDERED: Isosorbide MONOnitrate (24 HR) 60 MG TAB.ER.24H PO SCH (09:30)
[2020-10-30] MEDS: Furosemide 40 MG TABLET PO SCH (09:58)
[2020-10-30] MEDS ORDERED: Tiotropium 10 INH DOSE IH ONE (11:05)
[2020-10-30] MEDS: Budesonide/Formoterol 160/4.5 1 PUFF INH IH SCH ×2 (11:22→22:42)
[2020-10-30] MEDS: Sucralfate 1 GM TABLET PO SCH ×3 (12:47→22:24)
[2020-10-30] MEDS: Gabapentin 400 MG CAPSULE PO SCH ×2 (12:47→17:11)
[2020-10-30] MEDS: Ranolazine 500 MG TAB.ER.12H PO SCH ×2 (13:17→22:24)
[2020-10-30 14:58] LABS: Estimated Average Glucose 166 mg/dl; Hemoglobin A1C 7.4 %
[2020-10-30] MEDS: Insulin LISPRO 300 UNITS/3 ML VIAL SUBQ SCH (17:12)
[2020-10-30] MEDS ORDERED: Gabapentin 400 MG CAPSULE PO SCH (21:00)
[2020-10-30] MEDS ORDERED: Insulin LISPRO 300 UNITS/3 ML VIAL SUBQ SCH (21:00)
[2020-10-30] MEDS: *HR* Enoxaparin 40 MG/0.4 ML SYRINGE SQ SCH (22:23)
[2020-10-31 02:16] LABS: Basophils # 0.1 K/mcL (0.0-0.2); Basophils % 0.8 %; Eosinophils # 0.3 K/mcL (0.0-0.6); Eosinophils % 2.9 %; Hematocrit 38.6 % (35.3-44.9); Hemoglobin 11.3 g/dL (11.5-15.4); Immature Granulocytes % 1.8 % (0-4); Lymphocytes # 2.3 K/mcL (0.6-4.6); Lymphocytes % 21.4 %; Mean Corpuscular HGB Conc 29.3 g/dL (31.6-35.5); Mean Corpuscular Hemoglobin 24.7 pg (28.0-33.3); Mean Corpuscular Volume 84.3 fL (83.0-100.0); Mean Platelet Volume 10.7 fL (9.4-12.4); Monocytes # 0.9 K/mcL (0.0-1.3); Monocytes % 8.1 %; Platelet Count 250 K/mcL (140-400); Red Blood Count 4.58 M/mcL (3.82-4.97); Red Cell Distribution Width 18.3 % (11.5-14.5); White Blood Count 10.8 K/mcL (4.3-11.1)
[2020-10-31 02:43] LABS: Alanine Aminotransferase 8 Units/L (7-52); Albumin 2.8 g/dL (3.5-5.7); Albumin/Globulin Ratio 0.8 (1.1-2.2); Alkaline Phosphatase 93 Units/L (34-104); Aspartate Amino Transferase 8 Units/L (13-39); BUN/Creatinine Ratio 27 (6-26); Bilirubin,Total 0.3 mg/dL (0.3-1.0); Blood Urea Nitrogen 23 mg/dL (8-23); Calcium 8.4 mg/dL (8.6-10.3); Carbon Dioxide 26 mEq/L (23-29); Chloride 108 mEq/L (98-107); Globulin 3.3 g/dL (2.4-3.5); Glucose 130 mg/dL (70-105); Magnesium 2.3 mg/dL (1.6-2.6); Osmolality,Calculated 293 (280-300); Phosphorous 4.9 mg/dL (2.7-4.5); Sodium 139 mEq/L (136-145); Total Protein 6.1 g/dL (6.4-8.9); eGFR For African Americans > 60 (> 60); eGFR For Non-African Americans > 60 (> 60)
[2020-10-31] MEDS: Gabapentin 400 MG CAPSULE PO SCH ×2 (06:06→11:32)
[2020-10-31] MEDS: Sucralfate 1 GM TABLET PO SCH ×2 (08:44→11:32)
[2020-10-31] MEDS: Ranolazine 500 MG TAB.ER.12H PO SCH (08:44)
[2020-10-31] MEDS: Furosemide 40 MG TABLET PO SCH (08:44)
[2020-10-31] MEDS: *HR* Enoxaparin 40 MG/0.4 ML SYRINGE SQ SCH (08:45)
[2020-10-31] MEDS: Nicotine 21 MG PATCH.TD24 TD SCH ×2 (08:46→08:55)
[2020-10-31] MEDS: Insulin LISPRO 300 UNITS/3 ML VIAL SUBQ SCH ×2 (08:50→11:32)
[2020-10-31] MEDS ORDERED: Metoprolol XL (24 HR) Succ 50 MG TAB.ER.24H PO SCH (09:00)
[2020-10-31] MEDS ORDERED: Isosorbide MONOnitrate (24 HR) 60 MG TAB.ER.24H PO SCH (09:00)
[2020-10-31] MEDS ORDERED: Aspirin Enteric Coated 81 MG Tablet PO SCH (09:00)
[2020-10-31] MEDS ORDERED: lisinopriL 10 MG TABLET PO SCH (09:00)
[2020-10-31] MEDS ORDERED: Tiotropium 10 INH DOSE IH SCH (10:00)
[2020-10-31 11:13] VITALS: BP 136/78
== END 2020-10-31 13:20 | disposition home or self-care (01) ==
LOC: EMEROOARM 02:56 → 3NENU 02:56 → SUATTDRO 06:28 → 3NENU 08:11
PROVIDERS: ADMIT Internal Medicine; ATTEND Internal Medicine

== ENCOUNTER 2021-01-21 06:58 | Inpatient (IN) ==
[2021-01-21 07:57] LABS: Amorphous Sediment,Urine Few per hpf (None-Few); Bacteria,Urine Few per hpf (None-Few); Bilirubin,Urine Negative (Negative); Blood,Urine Small (Negative); Clarity,Urine Turbid (Clear); Color,Urine Yellow (Yellow); Glucose,Urine (UA) 50 mg/dL (Normal); Ketones,Urine Negative (Negative); Leukocyte Esterase,Urine Large (Negative); Mucus,Urine Few per lpf (None-Few); Nitrite,Urine Negative (Negative); Protein,Urine >=600 mg/dL (Neg-Trace); Renal Epithelial Cells,Urine Few per hpf (None-Few); Specific Gravity,Urine 1.026 (1.010-1.025); Squamous Epithelial Cell,Urine Few per hpf (None-Few); Transitional Epi Cells,Urine Few per hpf (None-Few); Urobilinogen,Urine Normal (Normal); WBC,Urine TNTC per hpf (0-3)
[2021-01-21] MEDS ORDERED: cefTRIAXone 1,000 MG in Water for inj. (sterile) 10 ML IVP ONE (08:08)
[2021-01-21 08:12] LABS: Hemoglobin 12.1 g/dL (11.5-15.4); Lymphocytes % 17.7 %; Nucleated Red Blood Cells 0.3 /100 WBC (0)
[2021-01-21 08:14] LABS: Basophils # 0.1 K/mcL (0.0-0.2); Basophils % 0.7 %; Eosinophils # 0.1 K/mcL (0.0-0.6); Eosinophils % 0.5 %; Hematocrit 41.5 % (35.3-44.9); Immature Granulocytes % 1.5 % (0-4); Lymphocytes # 2.2 K/mcL (0.6-4.6); Mean Corpuscular HGB Conc 29.2 g/dL (31.6-35.5); Mean Corpuscular Hemoglobin 24.6 pg (28.0-33.3); Mean Corpuscular Volume 84.5 fL (83.0-100.0); Mean Platelet Volume 10.6 fL (9.4-12.4); Monocytes # 1.1 K/mcL (0.0-1.3); Monocytes % 8.8 %; Neutrophils # 8.8 K/mcL (1.6-8.9); Platelet Count 270 K/mcL (140-400); Red Blood Count 4.91 M/mcL (3.82-4.97); Red Cell Distribution Width 18.8 % (11.5-14.5); Segmented Neutrophils % 70.8 %; White Blood Count 12.4 K/mcL (4.3-11.1)
[2021-01-21 08:27] LABS: Hypochromasia Present (Not Present); Platelet Estimate Normal (Normal)
[2021-01-21 08:37] LABS: Troponin I 0.69 ng/mL (< 0.04)
[2021-01-21 08:52] LABS: BUN/Creatinine Ratio 26 (6-26); Blood Urea Nitrogen 24 mg/dL (8-23); Calcium 8.2 mg/dL (8.6-10.3); Carbon Dioxide 24 mEq/L (23-29); Chloride 108 mEq/L (98-107); Glucose 161 mg/dL (70-105); Osmolality,Calculated 292 (280-300); Potassium 4.5 mEq/L (3.5-5.1); Sodium 137 mEq/L (136-145); eGFR For African Americans > 60 (> 60); eGFR For Non-African Americans > 60 (> 60)
[2021-01-21] MEDS ORDERED: *HR* Heparin 5,000 UNIT/ML VIAL IVP PRN (08:56)
[2021-01-21] MEDS ORDERED: *HR* Heparin 5,000 UNIT/ML VIAL IVP ONE (08:56)
[2021-01-21] MEDS ORDERED: Aspirin 81 MG TAB.CHEW PO STA (09:04)
[2021-01-21] MEDS ORDERED: Ondansetron ODT 4 MG TAB.RAPDIS SL PRN (09:18)
[2021-01-21] MEDS ORDERED: Acetaminophen 325 MG TABLET PO PRN (09:18)
[2021-01-21] MEDS ORDERED: D5% in Water 1,000 ML IVC PRN (09:24)
[2021-01-21] MEDS ORDERED: *HR* Dextrose 50 % in Water (Vial) 50 ML VIAL IVP PRN (09:24)
[2021-01-21] MEDS ORDERED: Dextrose Gel 15 GM/37.5 ML TUBE PO PRN ×2 (09:24)
[2021-01-21] MEDS ORDERED: methylPREDNISolone 125 MG/2 ML VIAL IVP ONE (09:28)
[2021-01-21] MEDS: Azithromycin 500 MG in D5% in Water 250 ML IVPB ONE ×2 (09:32→11:14)
[2021-01-21] MEDS ORDERED: Perflutren Lipid Microsphere 1.3 ML in 0.9 % Sodium Chloride 8.7 ML IVP PRN (09:33)
[2021-01-21] MEDS: Heparin 25,000UNIT/250ML 1/2NS 25,000 UNIT/250 ML IV.SOLN IVC SCH (09:51)
[2021-01-21] MEDS ORDERED: Azithromycin 500 MG in D5% in Water 250 ML IVPB ONE (10:00)
[2021-01-21 10:15] LABS: VBG HCO3 26 mEq/L (21-27); VBG PCO2 43 mmHg (41-51); VBG PH 7.38 pH Units (7.32-7.42); VBG PO2 132 mmHg (25-50)
[2021-01-21] MEDS: Ipratropium/Albuterol Neb 3 ML IH SCH ×3 (11:38→20:48)
[2021-01-21] MEDS: Metoprolol XL (24 HR) Succ 50 MG TAB.ER.24H PO SCH (11:56)
[2021-01-21] MEDS: Ranolazine 500 MG TAB.ER.12H PO SCH ×2 (11:56→20:39)
[2021-01-21] MEDS: Sucralfate 1 GM TABLET PO SCH ×3 (11:56→20:39)
[2021-01-21] MEDS: Insulin LISPRO 300 UNITS/3 ML VIAL SUBQ SCH ×3 (12:05→20:39)
[2021-01-21] MEDS: Furosemide 40 MG/4 ML VIAL IVP SCH (15:56)
[2021-01-21] MEDS: Nystatin POWDER 30 GM BOTTLE TP SCH ×2 (15:57→20:40)
[2021-01-21] MEDS: *HR* Heparin 5,000 UNIT/ML VIAL IVP PRN (17:20)
[2021-01-21] MEDS ORDERED: *HR* LORazepam 2 MG/ML VIAL IVP ONE (23:45)
[2021-01-22] MEDS: Ipratropium/Albuterol Neb 3 ML IH SCH ×7 (00:30→23:04)
[2021-01-22 01:53] LABS: Hematocrit 40.1 % (35.3-44.9); Hemoglobin 12.1 g/dL (11.5-15.4); Mean Corpuscular HGB Conc 30.2 g/dL (31.6-35.5); Mean Corpuscular Hemoglobin 24.5 pg (28.0-33.3); Mean Corpuscular Volume 81.3 fL (83.0-100.0); Mean Platelet Volume 10.9 fL (9.4-12.4); Platelet Count 263 K/mcL (140-400); Red Blood Count 4.93 M/mcL (3.82-4.97); Red Cell Distribution Width 18.5 % (11.5-14.5); White Blood Count 8.7 K/mcL (4.3-11.1)
[2021-01-22 02:12] LABS: BUN/Creatinine Ratio 33 (6-26); Blood Urea Nitrogen 23 mg/dL (8-23); Calcium 8.4 mg/dL (8.6-10.3); Carbon Dioxide 24 mEq/L (23-29); Chloride 105 mEq/L (98-107); Glucose 233 mg/dL (70-105); Osmolality,Calculated 293 (280-300); Potassium 4.4 mEq/L (3.5-5.1); Sodium 136 mEq/L (136-145); eGFR For African Americans > 60 (> 60); eGFR For Non-African Americans > 60 (> 60)
[2021-01-22] MEDS: Heparin 25,000UNIT/250ML 1/2NS 25,000 UNIT/250 ML IV.SOLN IVC SCH (05:23)
[2021-01-22] MEDS ORDERED: Nitroglycerin 0.4 MG TAB.SUBL SL PRN (07:16)
[2021-01-22] MEDS ORDERED: Buprenorphine [Butrans 20 Mcg/Hr] TP SCH (07:30)
[2021-01-22] MEDS: Sucralfate 1 GM TABLET PO SCH ×4 (07:43→21:22)
[2021-01-22] MEDS: predniSONE 20 MG TABLET PO SCH (07:43)
[2021-01-22] MEDS: Ranolazine 500 MG TAB.ER.12H PO SCH ×2 (07:43→21:22)
[2021-01-22] MEDS: Metoprolol XL (24 HR) Succ 50 MG TAB.ER.24H PO SCH (07:43)
[2021-01-22] MEDS: Furosemide 40 MG/4 ML VIAL IVP SCH ×2 (07:44→16:56)
[2021-01-22] MEDS: cefTRIAXone 2,000 MG in Water for inj. (sterile) 20 ML IVP SCH (07:44)
[2021-01-22] MEDS: *HR* Heparin 5,000 UNIT/ML VIAL IVP PRN (07:44)
[2021-01-22] MEDS: Azithromycin 500 MG in 0.9 % Sodium Chloride 250 ML IVPB SCH (07:44)
[2021-01-22] MEDS: Insulin LISPRO 300 UNITS/3 ML VIAL SUBQ SCH ×4 (07:45→21:21)
[2021-01-22] MEDS: Nystatin POWDER 30 GM BOTTLE TP SCH ×3 (07:46→21:23)
[2021-01-22] MEDS ORDERED: Aspirin 81 MG TAB.CHEW PO SCH (09:00)
[2021-01-22] MEDS ORDERED: Isosorbide MONOnitrate (24 HR) 60 MG TAB.ER.24H PO SCH (09:00)
[2021-01-22] MEDS: *HR* OxyCODONE/APAP 5/325 TABLET PO PRN ×2 (10:59→22:53)
[2021-01-22] MEDS: Budesonide/Formoterol 160/4.5 1 PUFF INH IH SCH ×2 (11:27→19:55)
[2021-01-22] MEDS: Gabapentin 400 MG CAPSULE PO SCH ×2 (12:20→16:56)
[2021-01-22] MEDS ORDERED: Perflutren Lipid Microsphere 1.3 ML in 0.9 % Sodium Chloride 8.7 ML IVP PRN (13:52)
[2021-01-22] MEDS: Insulin DETEMIR 100 UNIT/ML X5UNITS SUBQ SCH (21:21)
[2021-01-22] MEDS: Isosorbide MONOnitrate (24 HR) 60 MG TAB.ER.24H PO SCH (21:22)
[2021-01-23 00:28] LABS: Hematocrit 37.9 % (35.3-44.9); Hemoglobin 11.3 g/dL (11.5-15.4); Mean Corpuscular HGB Conc 29.8 g/dL (31.6-35.5); Mean Corpuscular Hemoglobin 24.5 pg (28.0-33.3); Mean Platelet Volume 10.9 fL (9.4-12.4); Platelet Count 264 K/mcL (140-400); Red Blood Count 4.62 M/mcL (3.82-4.97); Red Cell Distribution Width 18.4 % (11.5-14.5); White Blood Count 10.5 K/mcL (4.3-11.1)
[2021-01-23 00:34] LABS: BUN/Creatinine Ratio 31 (6-26); Blood Urea Nitrogen 26 mg/dL (8-23); Calcium 8.5 mg/dL (8.6-10.3); Carbon Dioxide 28 mEq/L (23-29); Chloride 103 mEq/L (98-107); Glucose 217 mg/dL (70-105); Osmolality,Calculated 295 (280-300); Potassium 4.2 mEq/L (3.5-5.1); Sodium 137 mEq/L (136-145); eGFR For African Americans > 60 (> 60); eGFR For Non-African Americans > 60 (> 60)
[2021-01-23] MEDS: Heparin 25,000UNIT/250ML 1/2NS 25,000 UNIT/250 ML IV.SOLN IVC SCH (03:50)
[2021-01-23] MEDS: Ipratropium/Albuterol Neb 3 ML IH SCH ×8 (03:53→23:36)
[2021-01-23] MEDS: *HR* OxyCODONE/APAP 5/325 TABLET PO PRN ×2 (04:32→12:06)
[2021-01-23] MEDS: Sucralfate 1 GM TABLET PO SCH ×4 (06:00→19:45)
[2021-01-23] MEDS: Gabapentin 400 MG CAPSULE PO SCH ×3 (06:18→16:48)
[2021-01-23] MEDS: Budesonide/Formoterol 160/4.5 1 PUFF INH IH SCH ×2 (07:01→23:36)
[2021-01-23] MEDS: Insulin LISPRO 300 UNITS/3 ML VIAL SUBQ SCH ×4 (08:35→21:20)
[2021-01-23] MEDS: Furosemide 40 MG/4 ML VIAL IVP SCH (08:37)
[2021-01-23] MEDS: cefTRIAXone 2,000 MG in Water for inj. (sterile) 20 ML IVP SCH (10:52)
[2021-01-23] MEDS: Azithromycin 500 MG in 0.9 % Sodium Chloride 250 ML IVPB SCH (10:54)
[2021-01-23] MEDS: Insulin DETEMIR 100 UNIT/ML X5UNITS SUBQ SCH ×2 (10:56→21:19)
[2021-01-23] MEDS: Aspirin Enteric Coated 81 MG Tablet PO SCH (10:57)
[2021-01-23] MEDS: Metoprolol XL (24 HR) Succ 50 MG TAB.ER.24H PO SCH (10:58)
[2021-01-23] MEDS: predniSONE 20 MG TABLET PO SCH (10:58)
[2021-01-23] MEDS: Isosorbide MONOnitrate (24 HR) 60 MG TAB.ER.24H PO SCH ×2 (10:58→19:45)
[2021-01-23] MEDS: Ranolazine 500 MG TAB.ER.12H PO SCH ×2 (10:58→19:45)
[2021-01-23] MEDS: Nystatin POWDER 30 GM BOTTLE TP SCH ×3 (10:59→21:39)
[2021-01-23] MEDS: Furosemide 40 MG TABLET PO SCH (16:44)
[2021-01-23] MEDS: *HR* Heparin 5,000 UNIT/ML VIAL SQ SCH (16:45)
[2021-01-23] MEDS: clonazePAM 0.5 MG TABLET PO SCH ×2 (16:45→19:44)
[2021-01-23] MEDS ORDERED: Furosemide 40 MG TABLET PO SCH ×2 (17:00→21:00)
[2021-01-24] MEDS: *HR* OxyCODONE/APAP 5/325 TABLET PO PRN (00:21)
[2021-01-24] MEDS: Ipratropium/Albuterol Neb 3 ML IH SCH ×2 (03:27→07:31)
[2021-01-24] MEDS: *HR* Heparin 5,000 UNIT/ML VIAL SQ SCH (05:54)
[2021-01-24 06:54] VITALS: BP 185/74
[2021-01-24] MEDS: Budesonide/Formoterol 160/4.5 1 PUFF INH IH SCH (07:29)
[2021-01-24] MEDS: Aspirin Enteric Coated 81 MG Tablet PO SCH (08:48)
[2021-01-24] MEDS: Ranolazine 500 MG TAB.ER.12H PO SCH (08:48)
[2021-01-24] MEDS: Metoprolol XL (24 HR) Succ 50 MG TAB.ER.24H PO SCH (08:48)
[2021-01-24] MEDS: Furosemide 40 MG TABLET PO SCH (08:49)
[2021-01-24] MEDS: Isosorbide MONOnitrate (24 HR) 60 MG TAB.ER.24H PO SCH (08:49)
[2021-01-24] MEDS: Gabapentin 400 MG CAPSULE PO SCH (08:49)
[2021-01-24] MEDS: predniSONE 20 MG TABLET PO SCH (08:49)
[2021-01-24] MEDS: Sucralfate 1 GM TABLET PO SCH (08:50)
[2021-01-24] MEDS: clonazePAM 0.5 MG TABLET PO SCH (08:50)
[2021-01-24] MEDS: Azithromycin 500 MG in 0.9 % Sodium Chloride 250 ML IVPB SCH (08:50)
[2021-01-24] MEDS: cefTRIAXone 2,000 MG in Water for inj. (sterile) 20 ML IVP SCH (08:50)
[2021-01-24] MEDS: Nystatin POWDER 30 GM BOTTLE TP SCH (08:51)
[2021-01-24] MEDS: Insulin LISPRO 300 UNITS/3 ML VIAL SUBQ SCH (08:52)
[2021-01-24] MEDS: Insulin DETEMIR 100 UNIT/ML X5UNITS SUBQ SCH (09:17)
== END 2021-01-24 10:32 | disposition home or self-care (01) | DRG 871 ==
LOC: EMEROOARM 06:58 → 2ANU 06:58 → SUATTDRO 09:30 → 2ANU 11:20 → SUATTDRO 01-23 15:13
PROVIDERS: ADMIT Internal Medicine; ATTEND Internal Medicine

== ENCOUNTER 2021-01-30 23:52 | Observation (INO) ==
[2021-01-30] MEDS ORDERED: Aspirin 81 MG TAB.CHEW PO ONE (23:59)
[2021-01-31 00:37] LABS: Basophils # 0.1 K/mcL (0.0-0.2); Basophils % 0.9 %; Eosinophils # 0.4 K/mcL (0.0-0.6); Eosinophils % 3.1 %; Hematocrit 41.4 % (35.3-44.9); Immature Granulocytes % 2.2 % (0-4); Lymphocytes # 2.6 K/mcL (0.6-4.6); Mean Corpuscular Hemoglobin 24.2 pg (28.0-33.3); Mean Corpuscular Volume 83.6 fL (83.0-100.0); Mean Platelet Volume 10.8 fL (9.4-12.4); Monocytes # 0.7 K/mcL (0.0-1.3); Monocytes % 6.3 %; Neutrophils # 7.7 K/mcL (1.6-8.9); Platelet Count 270 K/mcL (140-400); Red Blood Count 4.95 M/mcL (3.82-4.97); Segmented Neutrophils % 65.5 %; White Blood Count 11.7 K/mcL (4.3-11.1)
[2021-01-31 00:46] LABS: INR 0.9; Prothrombin Time 10.5 Seconds (9.4-12.1)
[2021-01-31 00:49] LABS: Activated Partial Thrombo Time 27.1 Seconds (26.0-36.0)
[2021-01-31 01:01] LABS: BUN/Creatinine Ratio 27 (6-26); Blood Urea Nitrogen 18 mg/dL (8-23); Calcium 7.9 mg/dL (8.6-10.3); Carbon Dioxide 23 mEq/L (23-29); Chloride 107 mEq/L (98-107); Glucose 221 mg/dL (70-105); Osmolality,Calculated 289 (280-300); Potassium 4.7 mEq/L (3.5-5.1); Sodium 135 mEq/L (136-145); eGFR For African Americans > 60 (> 60); eGFR For Non-African Americans > 60 (> 60)
[2021-01-31 01:02] LABS: Troponin I < 0.03 ng/mL (< 0.04)
[2021-01-31] MEDS ORDERED: *HR* HYDROcodone/Acet 5/325 mg TABLET PO ONE (01:12)
[2021-01-31] MEDS ORDERED: Furosemide 40 MG/4 ML VIAL IVP ONE (03:59)
[2021-01-31] MEDS ORDERED: *HR* Dextrose 50 % in Water (Vial) 50 ML VIAL IVP PRN (05:14)
[2021-01-31] MEDS ORDERED: Dextrose Gel 15 GM/37.5 ML TUBE PO PRN ×2 (05:14)
[2021-01-31] MEDS ORDERED: D5% in Water 1,000 ML IVC PRN (05:14)
[2021-01-31] MEDS ORDERED: Naloxone 0.4 MG/ML INJ IVP PRN (05:15)
[2021-01-31] MEDS ORDERED: Nitroglycerin 0.4 MG TAB.SUBL SL PRN ×2 (05:44→16:06)
[2021-01-31] MEDS ORDERED: Morphine Sulfate 2 MG/ML SYRINGE IVP ONE (05:44)
[2021-01-31] MEDS: *HR* Heparin 5,000 UNIT/ML VIAL SQ SCH ×3 (06:23→20:42)
[2021-01-31] MEDS: Famotidine 20 MG/2 ML VIAL IVP SCH ×2 (06:23→17:25)
[2021-01-31] MEDS: Aspirin Enteric Coated 81 MG Tablet PO SCH (07:42)
[2021-01-31] MEDS: Furosemide 20 MG/2 ML VIAL IVP SCH ×2 (07:43→20:41)
[2021-01-31] MEDS: Insulin LISPRO 300 UNITS/3 ML VIAL SUBQ SCH ×3 (07:45→15:54)
[2021-01-31 11:53] LABS: VBG HCO3 29 mEq/L (21-27); VBG PCO2 51 mmHg (41-51); VBG PH 7.36 pH Units (7.32-7.42); VBG PO2 133 mmHg (25-50)
[2021-01-31 16:42] LABS: Amphetamine Screen,Urine Negative ng/mL (Cutoff=1000); Barbiturate Screen,Urine Negative ng/mL (Cutoff=200); Benzodiazepines Screen,Urine Negative ng/mL (Cutoff=200); Cannabinoid Screen,Urine Negative ng/mL (Cutoff = 50); Cocaine Screen,Urine Negative ng/mL (Cutoff= 300); Opiate Screen,Urine Positive ng/mL (Cutoff=300); Phencyclidine Screen,Urine Negative ng/mL (Cutoff=25)
[2021-01-31 16:44] LABS: Bilirubin,Urine Negative (Negative); Blood,Urine Negative (Negative); Clarity,Urine Clear (Clear); Color,Urine Light-Yellow (Yellow); Glucose,Urine (UA) Normal (Normal); Ketones,Urine Negative (Negative); Leukocyte Esterase,Urine Negative (Negative); Mucus,Urine Few per lpf (None-Few); Nitrite,Urine Negative (Negative); PH,Urine 7.5 pH Units (5.0-8.0); Protein,Urine >=300 mg/dL (Neg-Trace); RBC,Urine 0-3 per hpf (0-3); Specific Gravity,Urine 1.015 (1.010-1.025); Squamous Epithelial Cell,Urine Few per hpf (None-Few); Urobilinogen,Urine Normal (Normal); WBC,Urine 0-3 per hpf (0-3)
[2021-01-31] MEDS: levoFLOXacin 750 MG/150 ML 750 MG/150 ML BAG IVPB SCH (17:25)
[2021-01-31] MEDS: Sucralfate 1 GM TABLET PO SCH ×2 (17:25→20:41)
[2021-01-31] MEDS: Acetaminophen 325 MG TABLET PO PRN (20:40)
[2021-01-31] MEDS: Isosorbide MONOnitrate (24 HR) 60 MG TAB.ER.24H PO SCH (20:41)
[2021-01-31] MEDS: Ranolazine 500 MG TAB.ER.12H PO SCH (20:41)
[2021-01-31] MEDS ORDERED: Insulin LISPRO 300 UNITS/3 ML VIAL SUBQ SCH (21:00)
[2021-01-31] MEDS ORDERED: Metoclopramide 10 MG/2 ML VIAL IVP PRN (21:09)
[2021-01-31] MEDS: Levalbuterol Neb 1.25 MG/3 ML IH SCH (21:54)
[2021-02-01] MEDS: Acetaminophen 325 MG TABLET PO PRN (02:31)
[2021-02-01] MEDS ORDERED: rOPINIRole 1 MG TABLET PO ONE (03:57)
[2021-02-01] MEDS: Levalbuterol Neb 1.25 MG/3 ML IH SCH (04:05)
[2021-02-01] MEDS: *HR* Heparin 5,000 UNIT/ML VIAL SQ SCH (05:04)
[2021-02-01] MEDS: Famotidine 20 MG/2 ML VIAL IVP SCH (05:04)
[2021-02-01 05:15] LABS: Hematocrit 40.8 % (35.3-44.9); Hemoglobin 12.3 g/dL (11.5-15.4); Mean Corpuscular HGB Conc 30.1 g/dL (31.6-35.5); Mean Corpuscular Hemoglobin 24.5 pg (28.0-33.3); Mean Corpuscular Volume 81.3 fL (83.0-100.0); Platelet Count 290 K/mcL (140-400); Red Blood Count 5.02 M/mcL (3.82-4.97); Red Cell Distribution Width 18.4 % (11.5-14.5)
[2021-02-01 05:34] LABS: BUN/Creatinine Ratio 22 (6-26); Blood Urea Nitrogen 13 mg/dL (8-23); Calcium 8.5 mg/dL (8.6-10.3); Carbon Dioxide 26 mEq/L (23-29); Chloride 106 mEq/L (98-107); Chol/HDL Ratio 3.6 (0-4.9); Cholesterol 162 mg/dL (< 200); Glucose 71 mg/dL (70-105); HDL Cholesterol 45 mg/dL (40-59); LDL Cholesterol,Calculated 74 mg/dL (< 100); Magnesium 1.6 mg/dL (1.6-2.6); Osmolality,Calculated 285 (280-300); Potassium 4.2 mEq/L (3.5-5.1); Sodium 138 mEq/L (136-145); Triglycerides 215 mg/dL (< 150); eGFR For African Americans > 60 (> 60); eGFR For Non-African Americans > 60 (> 60)
[2021-02-01 05:46] LABS: Thyroid Stimulating Hormone 1.876 mcIU/mL (0.340-5.600)
[2021-02-01 06:25] VITALS: BP 133/69
[2021-02-01 07:44] LABS: Estimated Average Glucose 154 mg/dl
[2021-02-01] MEDS: Insulin LISPRO 300 UNITS/3 ML VIAL SUBQ SCH (08:21)
[2021-02-01] MEDS ORDERED: lisinopriL 10 MG TABLET PO SCH (09:00)
[2021-02-01] MEDS ORDERED: Aspirin Enteric Coated 81 MG Tablet PO SCH (09:00)
[2021-02-01] MEDS ORDERED: Metoprolol XL (24 HR) Succ 50 MG TAB.ER.24H PO SCH (09:00)
[2021-02-01] MEDS: Aspirin Enteric Coated 81 MG Tablet PO SCH (09:06)
[2021-02-01] MEDS: Isosorbide MONOnitrate (24 HR) 60 MG TAB.ER.24H PO SCH (09:07)
[2021-02-01] MEDS: Sucralfate 1 GM TABLET PO SCH (09:07)
[2021-02-01] MEDS: Ranolazine 500 MG TAB.ER.12H PO SCH (09:07)
[2021-02-01] MEDS: Furosemide 20 MG/2 ML VIAL IVP SCH ×2 (09:08→09:14)
[2021-02-01] MEDS: levoFLOXacin 750 MG/150 ML 750 MG/150 ML BAG IVPB SCH (09:09)
== END 2021-02-01 10:21 | disposition left against medical advice (07) ==
LOC: 3ANU 23:52 → EMEROOARM 23:52 → SUATTDRO 01-31 04:41 → 3ANU 01-31 05:10
PROVIDERS: ADMIT Student in an Organized Health Care Education/Training Program; ATTEND Pharmacist

== ENCOUNTER 2021-03-24 05:14 | Inpatient (IN) ==
[2021-03-24 07:09] LABS: Basophils # 0.1 K/mcL (0.0-0.2); Basophils % 0.4 %; Eosinophils # 0.2 K/mcL (0.0-0.6); Eosinophils % 1.4 %; Hematocrit 41.2 % (35.3-44.9); Hemoglobin 12.4 g/dL (11.5-15.4); Immature Granulocytes % 2.8 % (0-4); Lymphocytes # 0.9 K/mcL (0.6-4.6); Lymphocytes % 5.8 %; Mean Corpuscular HGB Conc 30.1 g/dL (31.6-35.5); Mean Corpuscular Hemoglobin 23.7 pg (28.0-33.3); Mean Corpuscular Volume 78.8 fL (83.0-100.0); Mean Platelet Volume 10.8 fL (9.4-12.4); Monocytes # 1.4 K/mcL (0.0-1.3); Monocytes % 8.5 %; Neutrophils # 12.9 K/mcL (1.6-8.9); Platelet Count 130 K/mcL (140-400); Red Blood Count 5.23 M/mcL (3.82-4.97); Red Cell Distribution Width 19.1 % (11.5-14.5); Segmented Neutrophils % 81.1 %; White Blood Count 15.9 K/mcL (4.3-11.1)
[2021-03-24 07:18] LABS: Prothrombin Time 11.9 Seconds (9.4-12.1)
[2021-03-24 07:23] LABS: Albumin 2.6 g/dL (3.5-5.7); Albumin/Globulin Ratio 0.7 (1.1-2.2); Bilirubin,Direct 0.1 mg/dL (0.0-0.2); Bilirubin,Indirect 0.4 mg/dL (0.0-1.0); Bilirubin,Total 0.5 mg/dL (0.3-1.0); Calcium 8.2 mg/dL (8.6-10.3); Globulin 3.7 g/dL (2.4-3.5); Magnesium 1.9 mg/dL (1.6-2.6); Phosphorous 4.7 mg/dL (2.7-4.5); Potassium 5.1 mEq/L (3.5-5.1); Total Protein 6.3 g/dL (6.4-8.9); Troponin I 0.4 ng/mL (< 0.04)
[2021-03-24] MEDS ORDERED: 0.9 % Sodium Chloride 1,000 ML IVC ONE (07:39)
[2021-03-24] MEDS ORDERED: Piperacillin/Tazobactam 3.375 GM in 0.9 % Sodium Chloride Mini Bag 100 ML IVPB ONE (07:41)
[2021-03-24 07:53] LABS: VBG HCO3 21 mEq/L (21-27); VBG PCO2 32 mmHg (41-51); VBG PH 7.42 pH Units (7.32-7.42); VBG PO2 113 mmHg (25-50)
[2021-03-24 08:04] LABS: Activated Partial Thrombo Time 26.6 Seconds (26.0-36.0)
[2021-03-24 08:54] LABS: Bilirubin,Urine Negative (Negative); Blood,Urine Large (Negative); Clarity,Urine Ex.Turbid (Clear); Color,Urine Yellow (Yellow); Glucose,Urine (UA) 500 mg/dL (Normal); Ketones,Urine Negative (Negative); Leukocyte Esterase,Urine Large (Negative); Nitrite,Urine Negative (Negative); Protein,Urine >=300 mg/dL (Neg-Trace); Specific Gravity,Urine 1.017 (1.010-1.025); Urobilinogen,Urine Normal (Normal)
[2021-03-24 09:04] LABS: WBC,Urine TNTC per hpf (0-3)
[2021-03-24 09:05] LABS: Bacteria,Urine Present per hpf (None-Few); RBC,Urine Present per hpf (0-3); Squamous Epithelial Cell,Urine Present per hpf (None-Few)
[2021-03-24] MEDS ORDERED: Tdap (Boostrix) Vaccine 0.5 ML SYRINGE IM ONE (09:09)
[2021-03-24] MEDS ORDERED: Naloxone 0.4 MG/ML INJ IVP PRN (09:36)
[2021-03-24] MEDS ORDERED: Insulin Human Regular 10 UNIT in 0.9 % Sodium Chloride 10 ML IV ONE (11:01)
[2021-03-24] MEDS ORDERED: *HR* Dextrose 50 % in Water (Vial) 50 ML VIAL IVP PRN (11:01)
[2021-03-24] MEDS ORDERED: Dextrose Gel 15 GM/37.5 ML TUBE PO PRN ×2 (11:01)
[2021-03-24] MEDS ORDERED: D5% in Water 1,000 ML IVC PRN (11:01)
[2021-03-24 11:58] LABS: ABG Base Excess -3 mEq/L (-2 to 3); ABG HCO3 22 mEq/L (21-27); ABG Oxygen Saturation 91 % (95-98); ABG PCO2 38 mmHg (35-45); ABG PH 7.37 pH Units (7.32-7.45); ABG PO2 62 mmHg (85-104); ABG TCO2 23 mEq/L (20-26)
[2021-03-24] MEDS ORDERED: Acetaminophen IV 1,000 MG/100 ML BAG IVPB ONE ×2 (12:04→23:02)
[2021-03-24] MEDS: 0.9 % Sodium Chloride 1,000 ML IVC SCH ×2 (12:07→21:01)
[2021-03-24] MEDS: Insulin DETEMIR 100 UNIT/ML X5UNITS SUBQ SCH ×2 (12:08→21:07)
[2021-03-24] MEDS: Insulin LISPRO 300 UNITS/3 ML VIAL SUBQ SCH ×3 (12:11→21:01)
[2021-03-24 12:39] LABS: Estimated Average Glucose 169 mg/dl; Hemoglobin A1C 7.5 %
[2021-03-24] MEDS: cefTRIAXone 1,000 MG in Water for inj. (sterile) 10 ML IVP SCH (13:08)
[2021-03-24] MEDS ORDERED: Ipratropium/Albuterol Neb 3 ML IH PRN (15:33)
[2021-03-24 17:02] LABS: Adenovirus Not Detected (Not Detect); Bordetella Pertussis Not Detected (Not Detect); Chlamydophila pneumoniae Not Detected (Not Detect); Coronavirus 229E Not Detected (Not Detect); Coronavirus HKU1 Not Detected (Not Detect); Coronavirus NL63 Not Detected (Not Detect); Coronavirus OC43 Not Detected (Not Detect); Human Metapneumovirus Not Detected (Not Detect); Human Rhinovirus/Enterovirus Not Detected (Not Detect); Influenza A Subtype 2009 H1 Not Detected (Not Detect); Influenza B Not Detected (Not Detect); Mycoplasma pneumoniae Not Detected (Not Detect); Parainfluenza Virus 1 Not Detected (Not Detect); Parainfluenza Virus 2 Not Detected (Not Detect); Parainfluenza Virus 3 Not Detected (Not Detect); Parainfluenza Virus 4 Not Detected (Not Detect); Respiratory Syncytial Virus Not Detected (Not Detect); SARS-CoV-2 Not Detected (Not Detect)
[2021-03-24] MEDS ORDERED: Sennosides 8.6 MG TABLET PO PRN (18:22)
[2021-03-24] MEDS ORDERED: Nitroglycerin 0.4 MG TAB.SUBL SL PRN (18:22)
[2021-03-24] MEDS: Sucralfate 1 GM TABLET PO SCH (20:47)
[2021-03-24] MEDS: Ranolazine 500 MG TAB.ER.12H PO SCH (20:48)
[2021-03-24] MEDS: Isosorbide MONOnitrate (24 HR) 60 MG TAB.ER.24H PO SCH (20:48)
[2021-03-24] MEDS ORDERED: NON-FORMULARY MEDICATION 1 EACH EACH (Pantoprazole Sodium [Protonix] 40 MG Tablet.Dr) PO SCH (21:00)
[2021-03-24] MEDS: Budesonide/Formoterol 160/4.5 1 PUFF INH IH SCH (22:22)
[2021-03-24] MEDS: Ipratropium/Albuterol Neb 3 ML IH SCH (22:22)
[2021-03-24 23:16] LABS: Acinetobacter baumannii by PCR Not Detected (Not Detect); Candida albicans by PCR Not Detected (Not Detect); Candida glabrata by PCR Not Detected (Not Detect); Candida krusei by PCR Not Detected (Not Detect); Candida parapsilosis by PCR Not Detected (Not Detect); Candida tropicalis by PCR Not Detected (Not Detect); Enterobacter cloacae Cmplx PCR Not Detected (Not Detect); Enterobacteriaceae by PCR DETECTED (Not Detect); Enterococcus by PCR Not Detected (Not Detect); Escherichia coli by PCR DETECTED (Not Detect); Klebsiella oxytoca by PCR Not Detected (Not Detect); Klebsiella pneumoniae by PCR Not Detected (Not Detect); Proteus by PCR Not Detected (Not Detect); Pseudomonas aeruginosa by PCR Not Detected (Not Detect); Serratia marcescens by PCR Not Detected (Not Detect); Staphylococcus aureus by PCR Not Detected (Not Detect); Staphylococcus by PCR Not Detected (Not Detect); Streptococcus agalactiae(B)PCR Not Detected (Not Detect); Streptococcus by PCR Not Detected (Not Detect); Streptococcus pneumoniae PCR Not Detected (Not Detect); Streptococcus pyogenes (A) PCR Not Detected (Not Detect)
[2021-03-25 02:14] LABS: ABG Base Excess -1 mEq/L (-2 to 3); ABG HCO3 24 mEq/L (21-27); ABG Oxygen Saturation 94 % (95-98); ABG PCO2 42 mmHg (35-45); ABG PH 7.37 pH Units (7.32-7.45); ABG PO2 72 mmHg (85-104); ABG TCO2 26 mEq/L (20-26)
[2021-03-25] MEDS ORDERED: Furosemide 40 MG/4 ML VIAL IVP ONE (02:17)
[2021-03-25 02:27] LABS: Troponin I 0.15 ng/mL (< 0.04)
[2021-03-25 02:38] LABS: Calcium 7.7 mg/dL (8.6-10.3); Potassium 3.8 mEq/L (3.5-5.1)
[2021-03-25 02:50] LABS: White Blood Count 18.7 K/mcL (4.3-11.1)
[2021-03-25 02:51] LABS: Hematocrit 34.2 % (35.3-44.9); Hemoglobin 10.4 g/dL (11.5-15.4); Mean Corpuscular HGB Conc 30.4 g/dL (31.6-35.5); Mean Corpuscular Hemoglobin 23.7 pg (28.0-33.3); Mean Corpuscular Volume 77.9 fL (83.0-100.0); Platelet Count 119 K/mcL (140-400); Red Blood Count 4.39 M/mcL (3.82-4.97); Red Cell Distribution Width 18.7 % (11.5-14.5)
[2021-03-25 02:52] LABS: Basophils # 0.1 K/mcL (0.0-0.2); Basophils % 0.3 %; Eosinophils % 0.1 %; Lymphocytes # 0.8 K/mcL (0.6-4.6); Lymphocytes % 4.1 %; Monocytes # 1.6 K/mcL (0.0-1.3); Monocytes % 8.5 %; Neutrophils # 16.1 K/mcL (1.6-8.9); Nucleated Red Blood Cells 0.1 /100 WBC (0)
[2021-03-25] MEDS ORDERED: Vancomycin 1,500 MG/265 ML IV.SOLN IVPB ONE (03:00)
[2021-03-25] MEDS: Ipratropium/Albuterol Neb 3 ML IH SCH ×5 (03:41→21:34)
[2021-03-25 04:12] LABS: Large Platelets Present (Not Present); Platelet Estimate Slight Decrease (Normal)
[2021-03-25] MEDS: cefTRIAXone 1,000 MG in Water for inj. (sterile) 10 ML IVP SCH (09:43)
[2021-03-25] MEDS ORDERED: cefTRIAXone 2,000 MG in 0.9 % Sodium Chloride Mini Bag 100 ML IVPB SCH (10:00)
[2021-03-25] MEDS: Budesonide/Formoterol 160/4.5 1 PUFF INH IH SCH ×2 (10:10→21:34)
[2021-03-25] MEDS: Aspirin Enteric Coated 81 MG Tablet PO SCH (10:25)
[2021-03-25] MEDS: Metoprolol XL (24 HR) Succ 50 MG TAB.ER.24H PO SCH (10:25)
[2021-03-25] MEDS: Isosorbide MONOnitrate (24 HR) 60 MG TAB.ER.24H PO SCH ×2 (10:25→21:13)
[2021-03-25] MEDS: Ranolazine 500 MG TAB.ER.12H PO SCH ×2 (10:25→21:13)
[2021-03-25] MEDS: Sucralfate 1 GM TABLET PO SCH ×4 (10:25→21:13)
[2021-03-25] MEDS: Insulin DETEMIR 100 UNIT/ML X5UNITS SUBQ SCH ×3 (10:41→23:12)
[2021-03-25] MEDS: Insulin LISPRO 300 UNITS/3 ML VIAL SUBQ SCH ×4 (10:41→21:31)
[2021-03-25] MEDS ORDERED: Nicotine 2 MG GUM BC PRN (12:00)
[2021-03-25] MEDS: *HR* Heparin 5,000 UNIT/ML VIAL SQ SCH ×2 (14:31→21:14)
[2021-03-25] MEDS: Acetaminophen 325 MG TABLET PO PRN (14:37)
[2021-03-26] MEDS: Gabapentin 400 MG CAPSULE PO SCH ×4 (01:12→19:50)
[2021-03-26] MEDS: Acetaminophen 325 MG TABLET PO PRN ×2 (01:14→19:50)
[2021-03-26 01:24] LABS: Hematocrit 31.9 % (35.3-44.9); Immature Platelets 10.2 % (1.1-6.1); Mean Corpuscular HGB Conc 31.3 g/dL (31.6-35.5); Mean Corpuscular Hemoglobin 24.2 pg (28.0-33.3); Mean Corpuscular Volume 77.1 fL (83.0-100.0); Platelet Count 121 K/mcL (140-400); Red Blood Count 4.14 M/mcL (3.82-4.97); Red Cell Distribution Width 19.1 % (11.5-14.5); White Blood Count 13.8 K/mcL (4.3-11.1)
[2021-03-26 01:35] LABS: Calcium 7.9 mg/dL (8.6-10.3); Phosphorous 4.4 mg/dL (2.7-4.5)
[2021-03-26] MEDS: Ipratropium/Albuterol Neb 3 ML IH SCH ×4 (03:48→22:44)
[2021-03-26] MEDS: *HR* Heparin 5,000 UNIT/ML VIAL SQ SCH ×3 (05:03→23:16)
[2021-03-26] MEDS: Insulin DETEMIR 100 UNIT/ML X5UNITS SUBQ SCH ×2 (05:32→20:21)
[2021-03-26] MEDS: Metoprolol XL (24 HR) Succ 50 MG TAB.ER.24H PO SCH (08:25)
[2021-03-26] MEDS: Sucralfate 1 GM TABLET PO SCH ×4 (08:25→19:50)
[2021-03-26] MEDS: Isosorbide MONOnitrate (24 HR) 60 MG TAB.ER.24H PO SCH ×2 (08:25→19:50)
[2021-03-26] MEDS: Insulin LISPRO 300 UNITS/3 ML VIAL SUBQ SCH ×4 (08:26→20:22)
[2021-03-26] MEDS: Aspirin Enteric Coated 81 MG Tablet PO SCH (08:26)
[2021-03-26] MEDS: Ranolazine 500 MG TAB.ER.12H PO SCH ×2 (08:26→19:50)
[2021-03-26] MEDS: Ertapenem 1,000 MG in 0.9 % Sodium Chloride Mini Bag 100 ML IVPB SCH (08:27)
[2021-03-26] MEDS: 0.9 % Sodium Chloride 1,000 ML IVC SCH (10:20)
[2021-03-26] MEDS: Budesonide/Formoterol 160/4.5 1 PUFF INH IH SCH ×2 (10:56→22:44)
[2021-03-26] MEDS ORDERED: E-Z-PAQUE (BARIUM SULF) SUSP 1 BOTTLE PO ONE (12:27)
[2021-03-26] MEDS ORDERED: E-Z-HD (BARIUM SULF) SUSPENSION PO ONE (12:27)
[2021-03-27] MEDS: Ipratropium/Albuterol Neb 3 ML IH SCH ×4 (03:40→22:04)
[2021-03-27 04:43] LABS: Platelet Count 144 K/mcL (140-400)
[2021-03-27 04:44] LABS: Hematocrit 31.7 % (35.3-44.9); Hemoglobin 9.5 g/dL (11.5-15.4); Immature Platelets 11.6 % (1.1-6.1); Mean Corpuscular Hemoglobin 23.5 pg (28.0-33.3); Mean Corpuscular Volume 78.3 fL (83.0-100.0); Red Blood Count 4.05 M/mcL (3.82-4.97); Red Cell Distribution Width 18.8 % (11.5-14.5); White Blood Count 14.5 K/mcL (4.3-11.1)
[2021-03-27 05:03] LABS: Magnesium 2.1 mg/dL (1.6-2.6); Potassium 3.5 mEq/L (3.5-5.1)
[2021-03-27] MEDS: *HR* Heparin 5,000 UNIT/ML VIAL SQ SCH ×3 (05:48→20:35)
[2021-03-27] MEDS: Insulin LISPRO 300 UNITS/3 ML VIAL SUBQ SCH ×4 (07:24→20:03)
[2021-03-27] MEDS: Ertapenem 1,000 MG in 0.9 % Sodium Chloride Mini Bag 100 ML IVPB SCH (07:46)
[2021-03-27] MEDS: Sucralfate 1 GM TABLET PO SCH ×4 (07:47→20:35)
[2021-03-27] MEDS: Aspirin Enteric Coated 81 MG Tablet PO SCH (07:47)
[2021-03-27] MEDS: Ranolazine 500 MG TAB.ER.12H PO SCH ×2 (07:49→20:34)
[2021-03-27] MEDS: Gabapentin 400 MG CAPSULE PO SCH ×3 (07:50→20:35)
[2021-03-27] MEDS: Isosorbide MONOnitrate (24 HR) 60 MG TAB.ER.24H PO SCH ×2 (07:51→20:35)
[2021-03-27] MEDS: Metoprolol XL (24 HR) Succ 50 MG TAB.ER.24H PO SCH (07:51)
[2021-03-27] MEDS: Budesonide/Formoterol 160/4.5 1 PUFF INH IH SCH ×2 (11:39→22:04)
[2021-03-27] MEDS: Insulin DETEMIR 100 UNIT/ML X5UNITS SUBQ SCH (20:39)
[2021-03-28 03:06] LABS: Hematocrit 31.8 % (35.3-44.9); Hemoglobin 9.5 g/dL (11.5-15.4); Immature Platelets 10.7 % (1.1-6.1); Mean Corpuscular HGB Conc 29.9 g/dL (31.6-35.5); Mean Corpuscular Hemoglobin 23.5 pg (28.0-33.3); Mean Corpuscular Volume 78.5 fL (83.0-100.0); Platelet Count 167 K/mcL (140-400); Red Blood Count 4.05 M/mcL (3.82-4.97); Red Cell Distribution Width 19.2 % (11.5-14.5); White Blood Count 13.4 K/mcL (4.3-11.1)
[2021-03-28 03:19] LABS: Calcium 7.7 mg/dL (8.6-10.3); Potassium 3.9 mEq/L (3.5-5.1)
[2021-03-28] MEDS: Ipratropium/Albuterol Neb 3 ML IH SCH ×4 (03:33→21:47)
[2021-03-28 03:39] LABS: Eosinophils # 0.3 K/mcL (0.0-0.6); Lymphocytes # 0.8 K/mcL (0.6-4.6); Monocytes # 1.1 K/mcL (0.0-1.3); Neutrophils # 11.3 K/mcL (1.6-8.9); Platelet Estimate Normal (Normal); Toxic Granulation Present (Not Present)
[2021-03-28] MEDS: *HR* Heparin 5,000 UNIT/ML VIAL SQ SCH ×3 (05:41→20:07)
[2021-03-28] MEDS: Acetaminophen 325 MG TABLET PO PRN ×2 (05:41→22:24)
[2021-03-28] MEDS: Gabapentin 400 MG CAPSULE PO SCH ×3 (07:33→20:07)
[2021-03-28] MEDS: Metoprolol XL (24 HR) Succ 50 MG TAB.ER.24H PO SCH (07:34)
[2021-03-28] MEDS: Sucralfate 1 GM TABLET PO SCH ×4 (07:34→20:08)
[2021-03-28] MEDS: Isosorbide MONOnitrate (24 HR) 60 MG TAB.ER.24H PO SCH ×2 (07:34→20:08)
[2021-03-28] MEDS: Ranolazine 500 MG TAB.ER.12H PO SCH ×2 (07:34→20:08)
[2021-03-28] MEDS: Ertapenem 1,000 MG in 0.9 % Sodium Chloride Mini Bag 100 ML IVPB SCH (07:34)
[2021-03-28] MEDS: Aspirin Enteric Coated 81 MG Tablet PO SCH (07:34)
[2021-03-28] MEDS: Insulin LISPRO 300 UNITS/3 ML VIAL SUBQ SCH ×4 (07:43→20:09)
[2021-03-28] MEDS: Budesonide/Formoterol 160/4.5 1 PUFF INH IH SCH ×2 (10:48→21:47)
[2021-03-28] MEDS: Insulin DETEMIR 100 UNIT/ML X5UNITS SUBQ SCH (20:08)
[2021-03-29 03:39] LABS: Hematocrit 30.6 % (35.3-44.9); Mean Corpuscular HGB Conc 29.4 g/dL (31.6-35.5); Mean Corpuscular Hemoglobin 23.4 pg (28.0-33.3); Mean Corpuscular Volume 79.5 fL (83.0-100.0); Mean Platelet Volume 10.9 fL (9.4-12.4); Nucleated Red Blood Cells 0.1 /100 WBC (0); Platelet Count 221 K/mcL (140-400); Red Blood Count 3.85 M/mcL (3.82-4.97); Red Cell Distribution Width 19.5 % (11.5-14.5); White Blood Count 13.8 K/mcL (4.3-11.1)
[2021-03-29] MEDS: Ipratropium/Albuterol Neb 3 ML IH SCH ×4 (04:00→22:28)
[2021-03-29 04:08] LABS: Calcium 7.7 mg/dL (8.6-10.3); Potassium 3.9 mEq/L (3.5-5.1)
[2021-03-29 04:48] LABS: Lymphocytes # 1.1 K/mcL (0.6-4.6); Monocytes # 0.8 K/mcL (0.0-1.3); Neutrophils # 11.3 K/mcL (1.6-8.9); Platelet Estimate Normal (Normal); Reactive Lymphocytes Present (Not Present); Toxic Granulation Present (Not Present)
[2021-03-29] MEDS: *HR* Heparin 5,000 UNIT/ML VIAL SQ SCH ×3 (04:51→21:58)
[2021-03-29] MEDS: Insulin LISPRO 300 UNITS/3 ML VIAL SUBQ SCH ×4 (07:29→21:59)
[2021-03-29] MEDS: Ertapenem 1,000 MG in 0.9 % Sodium Chloride Mini Bag 100 ML IVPB SCH (07:58)
[2021-03-29] MEDS: Gabapentin 400 MG CAPSULE PO SCH ×3 (08:01→21:57)
[2021-03-29] MEDS: Metoprolol XL (24 HR) Succ 50 MG TAB.ER.24H PO SCH (08:02)
[2021-03-29] MEDS: Aspirin Enteric Coated 81 MG Tablet PO SCH (08:02)
[2021-03-29] MEDS: Ranolazine 500 MG TAB.ER.12H PO SCH ×2 (08:02→21:58)
[2021-03-29] MEDS: Isosorbide MONOnitrate (24 HR) 60 MG TAB.ER.24H PO SCH ×2 (08:02→21:58)
[2021-03-29] MEDS: Sucralfate 1 GM TABLET PO SCH ×4 (08:02→21:58)
[2021-03-29] MEDS: Budesonide/Formoterol 160/4.5 1 PUFF INH IH SCH ×2 (10:22→22:35)
[2021-03-29] MEDS: Acetaminophen 325 MG TABLET PO PRN (11:39)
[2021-03-29] MEDS: Furosemide 40 MG TABLET PO SCH (16:53)
[2021-03-29] MEDS: Insulin DETEMIR 100 UNIT/ML X5UNITS SUBQ SCH (21:59)
[2021-03-30] MEDS: Ipratropium/Albuterol Neb 3 ML IH SCH ×4 (03:32→21:26)
[2021-03-30] MEDS: *HR* Heparin 5,000 UNIT/ML VIAL SQ SCH ×3 (05:06→20:38)
[2021-03-30] MEDS: Acetaminophen 325 MG TABLET PO PRN ×2 (05:06→16:33)
[2021-03-30 06:46] LABS: Basophils # 0.2 K/mcL (0.0-0.2); Basophils % 1.2 %; Eosinophils # 0.3 K/mcL (0.0-0.6); Eosinophils % 2.1 %; Hematocrit 30.3 % (35.3-44.9); Hemoglobin 9.1 g/dL (11.5-15.4); Immature Granulocytes % 12.3 % (0-4); Lymphocytes # 1.9 K/mcL (0.6-4.6); Lymphocytes % 13.7 %; Mean Corpuscular Hemoglobin 24.1 pg (28.0-33.3); Mean Corpuscular Volume 80.4 fL (83.0-100.0); Mean Platelet Volume 10.8 fL (9.4-12.4); Monocytes # 0.8 K/mcL (0.0-1.3); Monocytes % 5.8 %; Platelet Count 261 K/mcL (140-400); Red Blood Count 3.77 M/mcL (3.82-4.97); Red Cell Distribution Width 19.9 % (11.5-14.5); Segmented Neutrophils % 64.9 %; White Blood Count 14.1 K/mcL (4.3-11.1)
[2021-03-30 06:55] LABS: Neutrophils # 9.2 K/mcL (1.6-8.9)
[2021-03-30] MEDS: Ranolazine 500 MG TAB.ER.12H PO SCH ×2 (07:51→20:37)
[2021-03-30] MEDS: Sucralfate 1 GM TABLET PO SCH ×4 (07:51→20:37)
[2021-03-30] MEDS: Metoprolol XL (24 HR) Succ 50 MG TAB.ER.24H PO SCH (07:51)
[2021-03-30] MEDS: Aspirin Enteric Coated 81 MG Tablet PO SCH (07:51)
[2021-03-30] MEDS: Furosemide 40 MG TABLET PO SCH ×2 (07:51→16:33)
[2021-03-30] MEDS: Isosorbide MONOnitrate (24 HR) 60 MG TAB.ER.24H PO SCH ×2 (07:51→20:37)
[2021-03-30] MEDS: Gabapentin 400 MG CAPSULE PO SCH ×3 (07:51→20:37)
[2021-03-30] MEDS: Ertapenem 1,000 MG in 0.9 % Sodium Chloride Mini Bag 100 ML IVPB SCH (07:52)
[2021-03-30] MEDS: Insulin LISPRO 300 UNITS/3 ML VIAL SUBQ SCH ×4 (07:52→20:38)
[2021-03-30 08:03] LABS: Calcium 7.9 mg/dL (8.6-10.3); Potassium 4.1 mEq/L (3.5-5.1)
[2021-03-30] MEDS: Budesonide/Formoterol 160/4.5 1 PUFF INH IH SCH ×2 (10:13→21:27)
[2021-03-30] MEDS: Insulin DETEMIR 100 UNIT/ML X5UNITS SUBQ SCH (20:37)
[2021-03-31] MEDS: Ipratropium/Albuterol Neb 3 ML IH SCH ×2 (03:25→10:47)
[2021-03-31] MEDS: *HR* Heparin 5,000 UNIT/ML VIAL SQ SCH (06:21)
[2021-03-31] MEDS: Insulin LISPRO 300 UNITS/3 ML VIAL SUBQ SCH ×2 (07:31→11:35)
[2021-03-31] MEDS: Ranolazine 500 MG TAB.ER.12H PO SCH (07:39)
[2021-03-31] MEDS: Gabapentin 400 MG CAPSULE PO SCH (07:39)
[2021-03-31] MEDS: Aspirin Enteric Coated 81 MG Tablet PO SCH (07:39)
[2021-03-31] MEDS: Sucralfate 1 GM TABLET PO SCH (07:39)
[2021-03-31] MEDS: Isosorbide MONOnitrate (24 HR) 60 MG TAB.ER.24H PO SCH (07:39)
[2021-03-31] MEDS: Metoprolol XL (24 HR) Succ 50 MG TAB.ER.24H PO SCH (07:39)
[2021-03-31] MEDS: Furosemide 40 MG TABLET PO SCH (07:39)
[2021-03-31] MEDS: Ertapenem 1,000 MG in 0.9 % Sodium Chloride Mini Bag 100 ML IVPB SCH (07:40)
[2021-03-31 07:44] LABS: Hematocrit 31.4 % (35.3-44.9); Hemoglobin 9.7 g/dL (11.5-15.4); Mean Corpuscular HGB Conc 30.9 g/dL (31.6-35.5); Mean Corpuscular Hemoglobin 24.2 pg (28.0-33.3); Mean Corpuscular Volume 78.3 fL (83.0-100.0); Nucleated Red Blood Cells 0.1 /100 WBC (0); Platelet Count 327 K/mcL (140-400); Red Blood Count 4.01 M/mcL (3.82-4.97); Red Cell Distribution Width 19.9 % (11.5-14.5); White Blood Count 15.8 K/mcL (4.3-11.1)
[2021-03-31 08:09] LABS: Calcium 8.2 mg/dL (8.6-10.3); Potassium 4.1 mEq/L (3.5-5.1)
[2021-03-31 08:58] LABS: Eosinophils # 0.2 K/mcL (0.0-0.6); Lymphocytes # 2.1 K/mcL (0.6-4.6); Monocytes # 1.1 K/mcL (0.0-1.3); Neutrophils # 12.2 K/mcL (1.6-8.9)
[2021-03-31 08:59] LABS: Microcytosis Present (Not Present); Stomatocytes 2+ (Not Present)
[2021-03-31 09:00] LABS: Platelet Estimate Normal (Normal)
[2021-03-31 09:04] LABS: Anisocytosis 2+ (Not Present)
[2021-03-31] MEDS: Budesonide/Formoterol 160/4.5 1 PUFF INH IH SCH (10:47)
[2021-03-31 11:19] VITALS: BP 167/75; PULSE 72; TEMP 97.8; O2SAT 97
[2021-03-31 20:31] LABS: Acinetobacter baumannii by PCR Not Detected (Not Detect); Candida albicans by PCR Not Detected (Not Detect); Candida glabrata by PCR Not Detected (Not Detect); Candida krusei by PCR Not Detected (Not Detect); Candida parapsilosis by PCR Not Detected (Not Detect); Candida tropicalis by PCR Not Detected (Not Detect); Enterobacter cloacae Cmplx PCR Not Detected (Not Detect); Enterococcus by PCR Not Detected (Not Detect); Escherichia coli by PCR DETECTED (Not Detect); Klebsiella oxytoca by PCR Not Detected (Not Detect); Klebsiella pneumoniae by PCR Not Detected (Not Detect); Proteus by PCR Not Detected (Not Detect); Pseudomonas aeruginosa by PCR Not Detected (Not Detect); Serratia marcescens by PCR Not Detected (Not Detect); Staphylococcus aureus by PCR Not Detected (Not Detect); Staphylococcus by PCR Not Detected (Not Detect); Streptococcus agalactiae(B)PCR Not Detected (Not Detect); Streptococcus by PCR Not Detected (Not Detect); Streptococcus pneumoniae PCR Not Detected (Not Detect); Streptococcus pyogenes (A) PCR Not Detected (Not Detect); mecA Methicillin-Resist Gene Not Detected (Not Detect); vanA/B Vancomycin-Resist Genes Not Detected (Not Detect)
== END 2021-03-31 11:57 | disposition home health service (06) | DRG 871 ==
LOC: EMEROOARM 05:14 → 2ANU 05:14 → SUATTDRO 09:11 → 2ANU 10:19 → SUATTDRO 03-25 14:32
PROVIDERS: ADMIT Internal Medicine; ATTEND Family Medicine

== ENCOUNTER 2021-04-05 00:54 | Inpatient (IN) ==
[2021-04-05] MEDS ORDERED: Isovue-370 500 ML BOTTLE IVP ONE (01:47)
[2021-04-05 03:42] LABS: Eosinophils % 1.3 %; Nucleated Red Blood Cells 0.8 /100 WBC (0)
[2021-04-05 03:44] LABS: Basophils # 0.2 K/mcL (0.0-0.2); Basophils % 1.5 %; Eosinophils # 0.2 K/mcL (0.0-0.6); Hematocrit 35.9 % (35.3-44.9); Hemoglobin 10.5 g/dL (11.5-15.4); Immature Granulocytes % 4.9 % (0-4); Immature Platelets 9.3 % (1.1-6.1); Lymphocytes # 1.9 K/mcL (0.6-4.6); Lymphocytes % 13.6 %; Mean Corpuscular HGB Conc 29.2 g/dL (31.6-35.5); Mean Corpuscular Hemoglobin 24.4 pg (28.0-33.3); Mean Corpuscular Volume 83.5 fL (83.0-100.0); Mean Platelet Volume 11.3 fL (9.4-12.4); Monocytes # 0.7 K/mcL (0.0-1.3); Monocytes % 4.6 %; Neutrophils # 10.5 K/mcL (1.6-8.9); Platelet Count 258 K/mcL (140-400); Segmented Neutrophils % 74.1 %; White Blood Count 14.2 K/mcL (4.3-11.1)
[2021-04-05 03:49] LABS: INR 1.1; Prothrombin Time 12.3 Seconds (9.4-12.1)
[2021-04-05 04:03] LABS: Amorphous Sediment,Urine Few per hpf (None-Few); Bacteria,Urine Few per hpf (None-Few); Bilirubin,Urine Negative (Negative); Blood,Urine Trace (Negative); Clarity,Urine Turbid (Clear); Color,Urine Yellow (Yellow); Glucose,Urine (UA) 300 mg/dL (Normal); Hyaline Casts,Urine Few per lpf (None Seen); Ketones,Urine Negative (Negative); Leukocyte Esterase,Urine Moderate (Negative); Mucus,Urine Few per lpf (None-Few); Nitrite,Urine Negative (Negative); Protein,Urine 200 mg/dL (Neg-Trace); Squamous Epithelial Cell,Urine Moderate per hpf (None-Few); Urobilinogen,Urine Normal (Normal); WBC,Urine 50-100 per hpf (0-3)
[2021-04-05 04:06] LABS: Alanine Aminotransferase 11 Units/L (7-52); Albumin 2.5 g/dL (3.5-5.7); Albumin/Globulin Ratio 0.7 (1.1-2.2); Alkaline Phosphatase 138 Units/L (34-104); Aspartate Amino Transferase 9 Units/L (13-39); BUN/Creatinine Ratio 19 (6-26); Bilirubin,Indirect 0.3 mg/dL (0.0-1.0); Bilirubin,Total 0.3 mg/dL (0.3-1.0); Blood Urea Nitrogen 26 mg/dL (8-23); Calcium 8.1 mg/dL (8.6-10.3); Carbon Dioxide 27 mEq/L (23-29); Chloride 102 mEq/L (98-107); Globulin 3.4 g/dL (2.4-3.5); Glucose 357 mg/dL (70-105); Magnesium 1.7 mg/dL (1.6-2.6); Osmolality,Calculated 299 (280-300); Phosphorous 4.4 mg/dL (2.7-4.5); Potassium 5.2 mEq/L (3.5-5.1); Sodium 135 mEq/L (136-145); Total Protein 5.9 g/dL (6.4-8.9); Troponin I < 0.03 ng/mL (< 0.04); eGFR For African Americans 46 (> 60); eGFR For Non-African Americans 38 (> 60)
[2021-04-05] MEDS ORDERED: Piperacillin/Tazobactam 3.375 GM in Water for inj. (sterile) 20 ML IVP ONE (04:44)
[2021-04-05] MEDS ORDERED: Vancomycin 1,500 MG/265 ML IV.SOLN IVPB ONE (05:00)
[2021-04-05] MEDS ORDERED: Naloxone 0.4 MG/ML INJ IVP PRN (07:19)
[2021-04-05] MEDS ORDERED: Ondansetron 4 MG/2 ML VIAL IVP PRN (07:19)
[2021-04-05] MEDS ORDERED: Dextrose Gel 15 GM/37.5 ML TUBE PO PRN ×2 (07:19)
[2021-04-05] MEDS ORDERED: *HR* Dextrose 50 % in Water (Vial) 50 ML VIAL IVP PRN (07:19)
[2021-04-05] MEDS ORDERED: Acetaminophen 325 MG TABLET PO PRN (07:19)
[2021-04-05] MEDS ORDERED: D5% in Water 1,000 ML IVC PRN (07:19)
[2021-04-05] MEDS ORDERED: Ipratropium/Albuterol Neb 3 ML IH PRN (08:10)
[2021-04-05] MEDS: Insulin LISPRO 300 UNITS/3 ML VIAL SUBQ SCH ×3 (09:33→18:19)
[2021-04-05] MEDS: Ipratropium/Albuterol Neb 3 ML IH SCH ×3 (10:01→22:08)
[2021-04-05 15:37] LABS: Adenovirus Not Detected (Not Detect); Bordetella Pertussis Not Detected (Not Detect); Chlamydophila pneumoniae Not Detected (Not Detect); Coronavirus 229E Not Detected (Not Detect); Coronavirus HKU1 Not Detected (Not Detect); Coronavirus NL63 Not Detected (Not Detect); Coronavirus OC43 Not Detected (Not Detect); Human Metapneumovirus Not Detected (Not Detect); Human Rhinovirus/Enterovirus Not Detected (Not Detect); Influenza A Subtype 2009 H1 Not Detected (Not Detect); Influenza B Not Detected (Not Detect); Mycoplasma pneumoniae Not Detected (Not Detect); Parainfluenza Virus 1 Not Detected (Not Detect); Parainfluenza Virus 2 Not Detected (Not Detect); Parainfluenza Virus 3 Not Detected (Not Detect); Parainfluenza Virus 4 Not Detected (Not Detect); Respiratory Syncytial Virus Not Detected (Not Detect); SARS-CoV-2 Not Detected (Not Detect)
[2021-04-05] MEDS: Piperacillin/Tazobactam 3.375 GM in 0.9 % Sodium Chloride Mini Bag 100 ML IVPB SCH (16:30)
[2021-04-05] MEDS ORDERED: Doxycycline 100 MG in 0.9 % Sodium Chloride Mini Bag 100 ML IVPB SCH (18:00)
[2021-04-05] MEDS: *HR* Heparin 5,000 UNIT/ML VIAL SQ SCH (18:21)
[2021-04-05 19:59] LABS: Amphetamine Screen,Urine Negative ng/mL (Cutoff=1000); Barbiturate Screen,Urine Negative ng/mL (Cutoff=200); Benzodiazepines Screen,Urine Negative ng/mL (Cutoff=200); Cannabinoid Screen,Urine Negative ng/mL (Cutoff = 50); Cocaine Screen,Urine Negative ng/mL (Cutoff= 300); Opiate Screen,Urine Negative ng/mL (Cutoff=300); Phencyclidine Screen,Urine Negative ng/mL (Cutoff=25)
[2021-04-05] MEDS: Doxycycline 100 MG in 0.9 % Sodium Chloride Mini Bag 100 ML IVPB SCH (21:35)
[2021-04-05] MEDS: Insulin DETEMIR 100 UNIT/ML X5UNITS SUBQ SCH (22:32)
[2021-04-06] MEDS: Piperacillin/Tazobactam 3.375 GM in 0.9 % Sodium Chloride Mini Bag 100 ML IVPB SCH (00:15)
[2021-04-06] MEDS: Ipratropium/Albuterol Neb 3 ML IH SCH ×4 (04:02→21:54)
[2021-04-06] MEDS: *HR* Heparin 5,000 UNIT/ML VIAL SQ SCH ×2 (05:39→19:06)
[2021-04-06 05:52] LABS: Basophils # 0.1 K/mcL (0.0-0.2); Basophils % 0.9 %; Eosinophils # 0.2 K/mcL (0.0-0.6); Eosinophils % 1.4 %; Hematocrit 31.4 % (35.3-44.9); Hemoglobin 9.4 g/dL (11.5-15.4); Immature Granulocytes % 2.5 % (0-4); Lymphocytes # 2.2 K/mcL (0.6-4.6); Mean Corpuscular HGB Conc 29.9 g/dL (31.6-35.5); Mean Corpuscular Hemoglobin 24.8 pg (28.0-33.3); Mean Corpuscular Volume 82.8 fL (83.0-100.0); Mean Platelet Volume 10.7 fL (9.4-12.4); Monocytes # 0.7 K/mcL (0.0-1.3); Monocytes % 5.5 %; Neutrophils # 8.9 K/mcL (1.6-8.9); Nucleated Red Blood Cells 0.3 /100 WBC (0); Platelet Count 271 K/mcL (140-400); Red Blood Count 3.79 M/mcL (3.82-4.97); Red Cell Distribution Width 21.5 % (11.5-14.5); Segmented Neutrophils % 71.7 %; White Blood Count 12.5 K/mcL (4.3-11.1)
[2021-04-06 06:08] LABS: Calcium 8.2 mg/dL (8.6-10.3); Magnesium 1.8 mg/dL (1.6-2.6); Phosphorous 4.3 mg/dL (2.7-4.5)
[2021-04-06] MEDS ORDERED: Albuterol 2.5 MG/3 ML NEBULIZER IH PRN (08:39)
[2021-04-06] MEDS ORDERED: Nitroglycerin 0.4 MG TAB.SUBL SL PRN (08:39)
[2021-04-06] MEDS ORDERED: NON-FORMULARY MEDICATION 1 EACH EACH (Pantoprazole Sodium [Protonix] 40 MG Tablet.Dr) PO SCH (09:00)
[2021-04-06] MEDS: Budesonide/Formoterol 160/4.5 1 PUFF INH IH SCH ×2 (10:53→21:53)
[2021-04-06] MEDS: Insulin LISPRO 300 UNITS/3 ML VIAL SUBQ SCH ×3 (11:24→19:07)
[2021-04-06] MEDS: Metoprolol XL (24 HR) Succ 50 MG TAB.ER.24H PO SCH (11:39)
[2021-04-06] MEDS: Sucralfate 1 GM TABLET PO SCH ×4 (11:39→20:15)
[2021-04-06] MEDS: Isosorbide MONOnitrate (24 HR) 60 MG TAB.ER.24H PO SCH ×2 (11:39→20:16)
[2021-04-06] MEDS: Aspirin Enteric Coated 81 MG Tablet PO SCH (11:39)
[2021-04-06] MEDS: Doxycycline 100 MG in 0.9 % Sodium Chloride Mini Bag 100 ML IVPB SCH ×2 (11:40→20:25)
[2021-04-06] MEDS: Ertapenem 1,000 MG in 0.9 % Sodium Chloride Mini Bag 100 ML IVPB SCH (13:27)
[2021-04-06] MEDS: clonazePAM 0.5 MG TABLET PO SCH ×3 (13:29→20:16)
[2021-04-06] MEDS: Ranolazine 500 MG TAB.ER.12H PO SCH ×2 (13:29→20:14)
[2021-04-06] MEDS: Furosemide 40 MG TABLET PO SCH (13:29)
[2021-04-06] MEDS ORDERED: Gabapentin 400 MG CAPSULE PO SCH (15:00)
[2021-04-06] MEDS ORDERED: Sennosides 8.6 MG TABLET PO PRN (16:32)
[2021-04-06] MEDS ORDERED: predniSONE 20 MG TABLET PO ONE (16:33)
[2021-04-06] MEDS: Gabapentin 400 MG CAPSULE PO SCH ×2 (19:05→20:15)
[2021-04-06] MEDS: Insulin DETEMIR 100 UNIT/ML X5UNITS SUBQ SCH (20:17)
[2021-04-06] MEDS: *HR* OxyCODONE/APAP 10/325 TABLET PO PRN (22:49)
[2021-04-07 02:50] LABS: Basophils # 0.1 K/mcL (0.0-0.2); Basophils % 0.9 %; Eosinophils % 0.1 %; Hematocrit 31.5 % (35.3-44.9); Hemoglobin 9.3 g/dL (11.5-15.4); Immature Granulocytes % 1.8 % (0-4); Lymphocytes # 0.7 K/mcL (0.6-4.6); Lymphocytes % 6.7 %; Mean Corpuscular HGB Conc 29.5 g/dL (31.6-35.5); Mean Corpuscular Hemoglobin 24.3 pg (28.0-33.3); Mean Corpuscular Volume 82.5 fL (83.0-100.0); Mean Platelet Volume 11.4 fL (9.4-12.4); Monocytes # 0.1 K/mcL (0.0-1.3); Monocytes % 1.2 %; Neutrophils # 9.2 K/mcL (1.6-8.9); Nucleated Red Blood Cells 0.2 /100 WBC (0); Platelet Count 272 K/mcL (140-400); Red Blood Count 3.82 M/mcL (3.82-4.97); Red Cell Distribution Width 21.4 % (11.5-14.5); Segmented Neutrophils % 89.3 %; White Blood Count 10.2 K/mcL (4.3-11.1)
[2021-04-07 03:14] LABS: Calcium 8.5 mg/dL (8.6-10.3); Magnesium 1.5 mg/dL (1.6-2.6); Potassium 5.2 mEq/L (3.5-5.1)
[2021-04-07] MEDS: Ipratropium/Albuterol Neb 3 ML IH SCH ×4 (04:11→21:41)
[2021-04-07] MEDS: *HR* Heparin 5,000 UNIT/ML VIAL SQ SCH ×2 (06:02→17:34)
[2021-04-07] MEDS: Furosemide 40 MG TABLET PO SCH ×2 (06:02→14:57)
[2021-04-07] MEDS: *HR* OxyCODONE/APAP 10/325 TABLET PO PRN (06:09)
[2021-04-07] MEDS: Piperacillin/Tazobactam 3.375 GM in 0.9 % Sodium Chloride Mini Bag 100 ML IVPB SCH (07:55)
[2021-04-07] MEDS: predniSONE 20 MG TABLET PO SCH (09:19)
[2021-04-07] MEDS: Isosorbide MONOnitrate (24 HR) 60 MG TAB.ER.24H PO SCH ×2 (09:20→20:55)
[2021-04-07] MEDS: Gabapentin 400 MG CAPSULE PO SCH ×4 (09:20→20:54)
[2021-04-07] MEDS: Aspirin Enteric Coated 81 MG Tablet PO SCH (09:20)
[2021-04-07] MEDS: clonazePAM 0.5 MG TABLET PO SCH ×3 (09:20→20:54)
[2021-04-07] MEDS: Metoprolol XL (24 HR) Succ 50 MG TAB.ER.24H PO SCH (09:20)
[2021-04-07] MEDS: Ertapenem 1,000 MG in 0.9 % Sodium Chloride Mini Bag 100 ML IVPB SCH (09:21)
[2021-04-07] MEDS: Ranolazine 500 MG TAB.ER.12H PO SCH ×2 (09:21→20:54)
[2021-04-07] MEDS: Sucralfate 1 GM TABLET PO SCH ×4 (09:21→20:54)
[2021-04-07] MEDS: Insulin LISPRO 300 UNITS/3 ML VIAL SUBQ SCH ×3 (09:22→17:32)
[2021-04-07] MEDS: Doxycycline 100 MG in 0.9 % Sodium Chloride Mini Bag 100 ML IVPB SCH ×2 (09:22→20:55)
[2021-04-07] MEDS: Budesonide/Formoterol 160/4.5 1 PUFF INH IH SCH ×2 (09:54→21:41)
[2021-04-07] MEDS ORDERED: *HR* FentaNYL PATCH 25 MCG PATCH TD SCH (13:15)
[2021-04-07] MEDS: GuaiFENesin/Dextromethorphan TABLET PO PRN (15:44)
[2021-04-07] MEDS ORDERED: Insulin DETEMIR 100 UNIT/ML X5UNITS SUBQ SCH (21:00)
[2021-04-08] MEDS: Furosemide 40 MG TABLET PO SCH ×2 (02:10→15:16)
[2021-04-08] MEDS: Ipratropium/Albuterol Neb 3 ML IH SCH ×4 (03:55→21:23)
[2021-04-08] MEDS: *HR* Heparin 5,000 UNIT/ML VIAL SQ SCH ×2 (05:28→17:12)
[2021-04-08] MEDS: Insulin LISPRO 300 UNITS/3 ML VIAL SUBQ SCH ×3 (08:48→16:19)
[2021-04-08] MEDS: Metoprolol XL (24 HR) Succ 50 MG TAB.ER.24H PO SCH (08:49)
[2021-04-08] MEDS: clonazePAM 0.5 MG TABLET PO SCH ×3 (08:49→20:45)
[2021-04-08] MEDS: Ranolazine 500 MG TAB.ER.12H PO SCH ×2 (08:49→20:45)
[2021-04-08] MEDS: Gabapentin 400 MG CAPSULE PO SCH ×4 (08:49→20:45)
[2021-04-08] MEDS: Ertapenem 1,000 MG in 0.9 % Sodium Chloride Mini Bag 100 ML IVPB SCH (08:50)
[2021-04-08] MEDS: Aspirin Enteric Coated 81 MG Tablet PO SCH (08:50)
[2021-04-08] MEDS: Sucralfate 1 GM TABLET PO SCH ×4 (08:50→20:45)
[2021-04-08] MEDS: Isosorbide MONOnitrate (24 HR) 60 MG TAB.ER.24H PO SCH ×2 (08:50→20:45)
[2021-04-08] MEDS: predniSONE 20 MG TABLET PO SCH (08:50)
[2021-04-08] MEDS: Doxycycline 100 MG in 0.9 % Sodium Chloride Mini Bag 100 ML IVPB SCH (08:51)
[2021-04-08] MEDS: Budesonide/Formoterol 160/4.5 1 PUFF INH IH SCH ×2 (10:20→21:23)
[2021-04-08] MEDS: *HR* OxyCODONE/APAP 10/325 TABLET PO PRN (20:44)
[2021-04-08] MEDS: Doxycycline 100 MG CAPSULE PO SCH (20:45)
[2021-04-08] MEDS: Insulin DETEMIR 100 UNIT/ML X5UNITS SUBQ SCH (20:46)
[2021-04-09] MEDS: Furosemide 40 MG TABLET PO SCH ×2 (03:38→15:13)
[2021-04-09] MEDS: Ipratropium/Albuterol Neb 3 ML IH SCH ×4 (03:42→22:21)
[2021-04-09] MEDS: *HR* Heparin 5,000 UNIT/ML VIAL SQ SCH ×2 (05:44→17:22)
[2021-04-09] MEDS: Gabapentin 400 MG CAPSULE PO SCH ×4 (10:15→21:38)
[2021-04-09] MEDS: Aspirin Enteric Coated 81 MG Tablet PO SCH (10:15)
[2021-04-09] MEDS: Insulin LISPRO 300 UNITS/3 ML VIAL SUBQ SCH ×3 (10:15→17:24)
[2021-04-09] MEDS: predniSONE 20 MG TABLET PO SCH (10:16)
[2021-04-09] MEDS: clonazePAM 0.5 MG TABLET PO SCH ×3 (10:16→21:39)
[2021-04-09] MEDS: Metoprolol XL (24 HR) Succ 50 MG TAB.ER.24H PO SCH (10:16)
[2021-04-09] MEDS: Doxycycline 100 MG CAPSULE PO SCH ×2 (10:16→21:38)
[2021-04-09] MEDS: Isosorbide MONOnitrate (24 HR) 60 MG TAB.ER.24H PO SCH ×2 (10:16→21:39)
[2021-04-09] MEDS: Ranolazine 500 MG TAB.ER.12H PO SCH ×2 (10:16→21:38)
[2021-04-09] MEDS: Sucralfate 1 GM TABLET PO SCH ×4 (10:16→21:39)
[2021-04-09] MEDS: Ertapenem 1,000 MG in 0.9 % Sodium Chloride Mini Bag 100 ML IVPB SCH (10:17)
[2021-04-09] MEDS: GuaiFENesin/Dextromethorphan TABLET PO PRN (10:32)
[2021-04-09] MEDS: *HR* OxyCODONE/APAP 10/325 TABLET PO PRN (10:32)
[2021-04-09] MEDS: Budesonide/Formoterol 160/4.5 1 PUFF INH IH SCH ×2 (10:40→22:21)
[2021-04-09] MEDS: Insulin DETEMIR 100 UNIT/ML X5UNITS SUBQ SCH (21:40)
[2021-04-10] MEDS: Insulin LISPRO 300 UNITS/3 ML VIAL SUBQ SCH ×5 (01:30→20:36)
[2021-04-10] MEDS: *HR* OxyCODONE/APAP 10/325 TABLET PO PRN ×2 (01:31→20:27)
[2021-04-10] MEDS: Ipratropium/Albuterol Neb 3 ML IH SCH ×4 (03:24→21:51)
[2021-04-10] MEDS: Furosemide 40 MG TABLET PO SCH ×3 (04:48→15:17)
[2021-04-10] MEDS: *HR* Heparin 5,000 UNIT/ML VIAL SQ SCH ×2 (05:15→17:32)
[2021-04-10] MEDS: Ertapenem 1,000 MG in 0.9 % Sodium Chloride Mini Bag 100 ML IVPB SCH (08:57)
[2021-04-10] MEDS: Sucralfate 1 GM TABLET PO SCH ×4 (08:58→20:27)
[2021-04-10] MEDS: Metoprolol XL (24 HR) Succ 50 MG TAB.ER.24H PO SCH (08:58)
[2021-04-10] MEDS: Ranolazine 500 MG TAB.ER.12H PO SCH ×2 (08:59→20:27)
[2021-04-10] MEDS: Doxycycline 100 MG CAPSULE PO SCH (08:59)
[2021-04-10] MEDS: Gabapentin 400 MG CAPSULE PO SCH ×4 (08:59→20:26)
[2021-04-10] MEDS: clonazePAM 0.5 MG TABLET PO SCH ×3 (08:59→20:26)
[2021-04-10] MEDS: Aspirin Enteric Coated 81 MG Tablet PO SCH (09:00)
[2021-04-10] MEDS: predniSONE 20 MG TABLET PO SCH (09:00)
[2021-04-10] MEDS: Isosorbide MONOnitrate (24 HR) 60 MG TAB.ER.24H PO SCH ×2 (09:00→20:27)
[2021-04-10] MEDS: Budesonide/Formoterol 160/4.5 1 PUFF INH IH SCH ×2 (10:45→21:51)
[2021-04-10] MEDS: Insulin DETEMIR 100 UNIT/ML X5UNITS SUBQ SCH ×2 (12:09→20:35)
[2021-04-11] MEDS: Furosemide 40 MG TABLET PO SCH (01:08)
[2021-04-11] MEDS: *HR* OxyCODONE/APAP 10/325 TABLET PO PRN (04:14)
[2021-04-11] MEDS: Ipratropium/Albuterol Neb 3 ML IH SCH ×2 (04:23→09:40)
[2021-04-11] MEDS: *HR* Heparin 5,000 UNIT/ML VIAL SQ SCH (05:41)
[2021-04-11 06:02] LABS: Basophils # 0.1 K/mcL (0.0-0.2); Basophils % 0.5 %; Eosinophils # 0.1 K/mcL (0.0-0.6); Eosinophils % 0.7 %; Hematocrit 35.5 % (35.3-44.9); Hemoglobin 10.8 g/dL (11.5-15.4); Immature Granulocytes % 0.7 % (0-4); Lymphocytes # 2.6 K/mcL (0.6-4.6); Mean Corpuscular HGB Conc 30.4 g/dL (31.6-35.5); Mean Corpuscular Hemoglobin 25.2 pg (28.0-33.3); Mean Corpuscular Volume 82.9 fL (83.0-100.0); Mean Platelet Volume 10.8 fL (9.4-12.4); Monocytes # 0.8 K/mcL (0.0-1.3); Neutrophils # 6.4 K/mcL (1.6-8.9); Platelet Count 235 K/mcL (140-400); Red Blood Count 4.28 M/mcL (3.82-4.97); Red Cell Distribution Width 21.2 % (11.5-14.5); Segmented Neutrophils % 64.1 %
[2021-04-11 06:21] LABS: BUN/Creatinine Ratio 30 (6-26); Blood Urea Nitrogen 32 mg/dL (8-23); Calcium 8.8 mg/dL (8.6-10.3); Carbon Dioxide 35 mEq/L (23-29); Chloride 97 mEq/L (98-107); Glucose 87 mg/dL (70-105); Osmolality,Calculated 294 (280-300); Potassium 3.6 mEq/L (3.5-5.1); Sodium 139 mEq/L (136-145); eGFR For African Americans > 60 (> 60); eGFR For Non-African Americans 52 (> 60)
[2021-04-11] MEDS: Insulin LISPRO 300 UNITS/3 ML VIAL SUBQ SCH (07:38)
[2021-04-11 07:45] VITALS: BP 182/78; PULSE 60; TEMP 97.9; O2SAT 92
[2021-04-11] MEDS: Metoprolol XL (24 HR) Succ 50 MG TAB.ER.24H PO SCH (07:53)
[2021-04-11] MEDS: Ranolazine 500 MG TAB.ER.12H PO SCH (07:54)
[2021-04-11] MEDS: Isosorbide MONOnitrate (24 HR) 60 MG TAB.ER.24H PO SCH (07:56)
[2021-04-11] MEDS: clonazePAM 0.5 MG TABLET PO SCH (07:57)
[2021-04-11] MEDS: Sucralfate 1 GM TABLET PO SCH (07:57)
[2021-04-11] MEDS: Gabapentin 400 MG CAPSULE PO SCH (07:57)
[2021-04-11] MEDS: Aspirin Enteric Coated 81 MG Tablet PO SCH (07:57)
[2021-04-11] MEDS ORDERED: predniSONE 10 MG TABLET PO SCH (09:00)
[2021-04-11] MEDS: Insulin DETEMIR 100 UNIT/ML X5UNITS SUBQ SCH (09:32)
[2021-04-11] MEDS: Budesonide/Formoterol 160/4.5 1 PUFF INH IH SCH (09:41)
== END 2021-04-11 11:04 | disposition home health service (06) | DRG 689 ==
LOC: 3ANU 00:54 → EMEROOARM 00:54 → SUATTDRO 06:14 → 3ANU 08:41
PROVIDERS: ADMIT Internal Medicine; ATTEND Hospitalist

== ENCOUNTER 2021-04-26 14:19 | Inpatient (IN) ==
[2021-04-26 15:13] LABS: Bacteria,Urine Few per hpf (None-Few); Bilirubin,Urine Negative (Negative); Blood,Urine Trace (Negative); Clarity,Urine Turbid (Clear); Color,Urine Light-Yellow (Yellow); Glucose,Urine (UA) 50 mg/dL (Normal); Ketones,Urine Negative (Negative); Leukocyte Esterase,Urine Large (Negative); Nitrite,Urine Negative (Negative); PH,Urine 6.5 pH Units (5.0-8.0); Protein,Urine 100 mg/dL (Neg-Trace); RBC,Urine 15-30 per hpf (0-3); Renal Epithelial Cells,Urine Few per hpf (None-Few); Specific Gravity,Urine 1.008 (1.010-1.025); Squamous Epithelial Cell,Urine Few per hpf (None-Few); Transitional Epi Cells,Urine Few per hpf (None-Few); Urobilinogen,Urine Normal (Normal); WBC,Urine TNTC per hpf (0-3)
[2021-04-26] MEDS ORDERED: 0.9 % Sodium Chloride 1,000 ML IVC ONE (16:18)
[2021-04-26] MEDS ORDERED: Isovue-370 500 ML BOTTLE IVP ONE (16:18)
[2021-04-26 17:14] LABS: Eosinophils # 0.3 K/mcL (0.0-0.6); Hematocrit 36.3 % (35.3-44.9); Hemoglobin 11.3 g/dL (11.5-15.4); Mean Corpuscular HGB Conc 31.1 g/dL (31.6-35.5); Mean Corpuscular Hemoglobin 26.8 pg (28.0-33.3); Mean Corpuscular Volume 86.2 fL (83.0-100.0); Mean Platelet Volume 10.2 fL (9.4-12.4); Monocytes # 0.6 K/mcL (0.0-1.3); Platelet Count 219 K/mcL (140-400); Red Blood Count 4.21 M/mcL (3.82-4.97); Red Cell Distribution Width 22.8 % (11.5-14.5); White Blood Count 9.1 K/mcL (4.3-11.1)
[2021-04-26 17:36] LABS: Neutrophils # 6.3 K/mcL (1.6-8.9); Platelet Estimate Normal (Normal)
[2021-04-26] MEDS ORDERED: Piperacillin/Tazobactam 3.375 GM in Water for inj. (sterile) 20 ML IVP ONE (17:41)
[2021-04-26] MEDS ORDERED: Vancomycin 1,500 MG/265 ML IV.SOLN IVPB ONE (18:00)
[2021-04-26 18:13] LABS: Troponin I 0.03 ng/mL (< 0.04)
[2021-04-26 19:10] LABS: Alanine Aminotransferase 10 Units/L (7-52); Albumin 2.6 g/dL (3.5-5.7); Albumin/Globulin Ratio 0.8 (1.1-2.2); Alkaline Phosphatase 131 Units/L (34-104); Aspartate Amino Transferase 11 Units/L (13-39); BUN/Creatinine Ratio 15 (6-26); Bilirubin,Direct 0.1 mg/dL (0.0-0.2); Bilirubin,Indirect 0.3 mg/dL (0.0-1.0); Bilirubin,Total 0.4 mg/dL (0.3-1.0); Blood Urea Nitrogen 17 mg/dL (8-23); Calcium 8.2 mg/dL (8.6-10.3); Carbon Dioxide 22 mEq/L (23-29); Chloride 104 mEq/L (98-107); Globulin 3.1 g/dL (2.4-3.5); Glucose 148 mg/dL (70-105); Lipase 3 Units/L (11-82); Osmolality,Calculated 290 (280-300); Potassium 4.9 mEq/L (3.5-5.1); Sodium 138 mEq/L (136-145); Total Protein 5.7 g/dL (6.4-8.9); eGFR For African Americans > 60 (> 60); eGFR For Non-African Americans 50 (> 60)
[2021-04-27] MEDS ORDERED: Naloxone 0.4 MG/ML INJ IVP PRN (01:41)
[2021-04-27] MEDS ORDERED: Ondansetron 4 MG/2 ML VIAL IVP PRN (01:41)
[2021-04-27] MEDS ORDERED: 0.9 % Sodium Chloride 1,000 ML IVC SCH (01:45)
[2021-04-27] MEDS: Ertapenem 1,000 MG in 0.9 % Sodium Chloride Mini Bag 100 ML IVPB SCH (02:50)
[2021-04-27] MEDS ORDERED: Dextrose Gel 15 GM/37.5 ML TUBE PO PRN ×2 (03:57)
[2021-04-27] MEDS ORDERED: *HR* Dextrose 50 % in Water (Vial) 50 ML VIAL IVP PRN (03:57)
[2021-04-27] MEDS ORDERED: D5% in Water 1,000 ML IVC PRN (03:57)
[2021-04-27] MEDS: *HR* Heparin 5,000 UNIT/ML VIAL SQ SCH ×3 (05:14→21:21)
[2021-04-27] MEDS: Acetaminophen 325 MG TABLET PO PRN ×2 (05:37→21:22)
[2021-04-27] MEDS: Insulin LISPRO 300 UNITS/3 ML VIAL SUBQ SCH ×3 (07:18→16:06)
[2021-04-27] MEDS: Lactobacillus 1 EACH CAP.SPRINK PO SCH ×2 (09:23→21:21)
[2021-04-27 12:07] LABS: BUN/Creatinine Ratio 15 (6-26); Blood Urea Nitrogen 13 mg/dL (8-23); Calcium 8.3 mg/dL (8.6-10.3); Carbon Dioxide 26 mEq/L (23-29); Chloride 108 mEq/L (98-107); Glucose 162 mg/dL (70-105); Osmolality,Calculated 294 (280-300); Potassium 3.8 mEq/L (3.5-5.1); Sodium 140 mEq/L (136-145); eGFR For African Americans > 60 (> 60); eGFR For Non-African Americans > 60 (> 60)
[2021-04-27] MEDS: Metoprolol XL (24 HR) Succ 50 MG TAB.ER.24H PO SCH (13:45)
[2021-04-27 13:50] LABS: Hemoglobin 11.2 g/dL (11.5-15.4); Mean Corpuscular HGB Conc 30.3 g/dL (31.6-35.5); Mean Corpuscular Hemoglobin 26.1 pg (28.0-33.3); Mean Corpuscular Volume 86.2 fL (83.0-100.0); Mean Platelet Volume 10.5 fL (9.4-12.4); Platelet Count 210 K/mcL (140-400); Red Blood Count 4.29 M/mcL (3.82-4.97); Red Cell Distribution Width 22.5 % (11.5-14.5); White Blood Count 8.4 K/mcL (4.3-11.1)
[2021-04-27] MEDS: Ipratropium/Albuterol Neb 3 ML IH PRN (14:18)
[2021-04-27] MEDS ORDERED: Nitroglycerin 0.4 MG TAB.SUBL SL PRN (19:21)
[2021-04-27] MEDS ORDERED: Gabapentin 400 MG CAPSULE PO SCH ×2 (21:00)
[2021-04-27] MEDS: clonazePAM 0.5 MG TABLET PO SCH (21:21)
[2021-04-27] MEDS: Sucralfate 1 GM TABLET PO SCH (21:23)
[2021-04-27] MEDS: Isosorbide MONOnitrate (24 HR) 60 MG TAB.ER.24H PO SCH (21:23)
[2021-04-27] MEDS: *HR* OxyCODONE/APAP 10/325 TABLET PO PRN (22:51)
[2021-04-28 00:51] LABS: Basophils # 0.1 K/mcL (0.0-0.2); Basophils % 0.6 %; Eosinophils # 0.2 K/mcL (0.0-0.6); Eosinophils % 2.1 %; Hematocrit 35.7 % (35.3-44.9); Hemoglobin 10.9 g/dL (11.5-15.4); Lymphocytes # 1.7 K/mcL (0.6-4.6); Lymphocytes % 21.3 %; Mean Corpuscular HGB Conc 30.5 g/dL (31.6-35.5); Mean Corpuscular Hemoglobin 26.3 pg (28.0-33.3); Mean Platelet Volume 10.3 fL (9.4-12.4); Monocytes # 0.4 K/mcL (0.0-1.3); Monocytes % 5.2 %; Neutrophils # 5.7 K/mcL (1.6-8.9); Platelet Count 206 K/mcL (140-400); Red Blood Count 4.15 M/mcL (3.82-4.97); Red Cell Distribution Width 21.8 % (11.5-14.5); Segmented Neutrophils % 69.8 %; White Blood Count 8.1 K/mcL (4.3-11.1)
[2021-04-28 01:08] LABS: BUN/Creatinine Ratio 12 (6-26); Blood Urea Nitrogen 12 mg/dL (8-23); Calcium 7.9 mg/dL (8.6-10.3); Carbon Dioxide 25 mEq/L (23-29); Chloride 107 mEq/L (98-107); Glucose 167 mg/dL (70-105); Magnesium 1.4 mg/dL (1.6-2.6); Osmolality,Calculated 290 (280-300); Potassium 3.6 mEq/L (3.5-5.1); Sodium 138 mEq/L (136-145); eGFR For African Americans > 60 (> 60); eGFR For Non-African Americans 54 (> 60)
[2021-04-28] MEDS: Ertapenem 1,000 MG in 0.9 % Sodium Chloride Mini Bag 100 ML IVPB SCH (03:28)
[2021-04-28] MEDS: Furosemide 40 MG TABLET PO SCH ×2 (03:28→16:10)
[2021-04-28] MEDS: *HR* Heparin 5,000 UNIT/ML VIAL SQ SCH ×3 (05:50→20:51)
[2021-04-28] MEDS: Ipratropium/Albuterol Neb 3 ML IH PRN (07:06)
[2021-04-28] MEDS: Isosorbide MONOnitrate (24 HR) 60 MG TAB.ER.24H PO SCH ×2 (08:13→20:50)
[2021-04-28] MEDS: Lactobacillus 1 EACH CAP.SPRINK PO SCH ×2 (08:13→20:50)
[2021-04-28] MEDS: Metoprolol XL (24 HR) Succ 50 MG TAB.ER.24H PO SCH (08:13)
[2021-04-28] MEDS: Gabapentin 400 MG CAPSULE PO SCH ×3 (08:13→16:05)
[2021-04-28] MEDS: Ranolazine 500 MG TAB.ER.12H PO SCH ×2 (08:14→20:50)
[2021-04-28] MEDS: Aspirin Enteric Coated 81 MG Tablet PO SCH (08:14)
[2021-04-28] MEDS: clonazePAM 0.5 MG TABLET PO SCH ×3 (08:14→20:50)
[2021-04-28] MEDS: Insulin LISPRO 300 UNITS/3 ML VIAL SUBQ SCH ×5 (08:17→20:51)
[2021-04-28] MEDS: Sucralfate 1 GM TABLET PO SCH ×4 (08:27→20:50)
[2021-04-28] MEDS: *HR* OxyCODONE/APAP 10/325 TABLET PO PRN (21:04)
[2021-04-29 02:27] LABS: Basophils % 0.5 %; Eosinophils # 0.2 K/mcL (0.0-0.6); Eosinophils % 2.7 %; Hematocrit 36.7 % (35.3-44.9); Hemoglobin 11.1 g/dL (11.5-15.4); Immature Granulocytes % 0.9 % (0-4); Lymphocytes % 25.3 %; Mean Corpuscular HGB Conc 30.2 g/dL (31.6-35.5); Mean Corpuscular Hemoglobin 26.2 pg (28.0-33.3); Mean Corpuscular Volume 86.6 fL (83.0-100.0); Mean Platelet Volume 10.9 fL (9.4-12.4); Monocytes # 0.4 K/mcL (0.0-1.3); Neutrophils # 5.3 K/mcL (1.6-8.9); Platelet Count 211 K/mcL (140-400); Red Blood Count 4.24 M/mcL (3.82-4.97); Red Cell Distribution Width 21.8 % (11.5-14.5); Segmented Neutrophils % 65.6 %; White Blood Count 8.1 K/mcL (4.3-11.1)
[2021-04-29 02:45] LABS: Calcium 8.2 mg/dL (8.6-10.3); Magnesium 1.6 mg/dL (1.6-2.6); Potassium 3.7 mEq/L (3.5-5.1)
[2021-04-29] MEDS: Ertapenem 1,000 MG in 0.9 % Sodium Chloride Mini Bag 100 ML IVPB SCH (02:52)
[2021-04-29] MEDS: Furosemide 40 MG TABLET PO SCH ×2 (02:53→15:58)
[2021-04-29] MEDS: Acetaminophen 325 MG TABLET PO PRN (03:00)
[2021-04-29] MEDS: *HR* Heparin 5,000 UNIT/ML VIAL SQ SCH ×3 (05:46→21:36)
[2021-04-29] MEDS: Ipratropium/Albuterol Neb 3 ML IH PRN (06:03)
[2021-04-29] MEDS: Insulin LISPRO 300 UNITS/3 ML VIAL SUBQ SCH ×6 (07:36→21:19)
[2021-04-29] MEDS: Lactobacillus 1 EACH CAP.SPRINK PO SCH ×2 (07:37→21:31)
[2021-04-29] MEDS: Gabapentin 400 MG CAPSULE PO SCH ×3 (07:38→15:57)
[2021-04-29] MEDS: Isosorbide MONOnitrate (24 HR) 60 MG TAB.ER.24H PO SCH ×2 (07:38→21:30)
[2021-04-29] MEDS: Metoprolol XL (24 HR) Succ 50 MG TAB.ER.24H PO SCH (07:38)
[2021-04-29] MEDS: Aspirin Enteric Coated 81 MG Tablet PO SCH (07:38)
[2021-04-29] MEDS: clonazePAM 0.5 MG TABLET PO SCH (07:38)
[2021-04-29] MEDS: Ranolazine 500 MG TAB.ER.12H PO SCH ×2 (07:38→21:31)
[2021-04-29] MEDS: Sucralfate 1 GM TABLET PO SCH ×4 (07:39→20:20)
[2021-04-29] MEDS: Calcium Gluconate 1gm/50mL 1 GM/50 ML BAG IVPB SCH ×2 (08:51→10:30)
[2021-04-29] MEDS: Budesonide/Formoterol 160/4.5 1 PUFF INH IH SCH ×2 (11:27→19:51)
[2021-04-29] MEDS: Nicotine 21 MG PATCH.TD24 TD SCH (13:03)
[2021-04-29] MEDS ORDERED: Insulin DETEMIR 100 UNIT/ML X5UNITS SUBQ SCH (21:00)
[2021-04-30 02:20] LABS: Hematocrit 39.4 % (35.3-44.9); Mean Corpuscular HGB Conc 30.5 g/dL (31.6-35.5); Mean Corpuscular Hemoglobin 26.4 pg (28.0-33.3); Mean Corpuscular Volume 86.8 fL (83.0-100.0); Mean Platelet Volume 10.7 fL (9.4-12.4); Platelet Count 212 K/mcL (140-400); Red Blood Count 4.54 M/mcL (3.82-4.97); Red Cell Distribution Width 21.4 % (11.5-14.5); White Blood Count 8.1 K/mcL (4.3-11.1)
[2021-04-30] MEDS: Furosemide 40 MG TABLET PO SCH ×2 (03:33→14:23)
[2021-04-30] MEDS: Ertapenem 1,000 MG in 0.9 % Sodium Chloride Mini Bag 100 ML IVPB SCH (03:34)
[2021-04-30] MEDS: *HR* OxyCODONE/APAP 10/325 TABLET PO PRN (03:45)
[2021-04-30 05:34] LABS: Calcium 8.4 mg/dL (8.6-10.3); Magnesium 1.7 mg/dL (1.6-2.6); Phosphorous 3.8 mg/dL (2.7-4.5); Potassium 3.8 mEq/L (3.5-5.1)
[2021-04-30] MEDS: *HR* Heparin 5,000 UNIT/ML VIAL SQ SCH ×3 (05:34→21:33)
[2021-04-30] MEDS: Budesonide/Formoterol 160/4.5 1 PUFF INH IH SCH ×2 (07:47→23:01)
[2021-04-30] MEDS: Ipratropium/Albuterol Neb 3 ML IH PRN (07:49)
[2021-04-30] MEDS: Lactobacillus 1 EACH CAP.SPRINK PO SCH ×2 (08:37→21:33)
[2021-04-30] MEDS: Metoprolol XL (24 HR) Succ 50 MG TAB.ER.24H PO SCH (08:37)
[2021-04-30] MEDS: Sucralfate 1 GM TABLET PO SCH ×4 (08:37→21:33)
[2021-04-30] MEDS: Ranolazine 500 MG TAB.ER.12H PO SCH ×2 (08:38→21:33)
[2021-04-30] MEDS: Aspirin Enteric Coated 81 MG Tablet PO SCH (08:38)
[2021-04-30] MEDS: Isosorbide MONOnitrate (24 HR) 60 MG TAB.ER.24H PO SCH ×2 (08:38→21:33)
[2021-04-30] MEDS: Gabapentin 400 MG CAPSULE PO SCH ×3 (08:38→16:21)
[2021-04-30] MEDS: Nicotine 21 MG PATCH.TD24 TD SCH (08:39)
[2021-04-30] MEDS: Insulin LISPRO 300 UNITS/3 ML VIAL SUBQ SCH ×6 (08:46→16:22)
[2021-04-30] MEDS: Calcium Gluconate 1gm/50mL 1 GM/50 ML BAG IVPB SCH ×2 (09:50→11:11)
[2021-04-30] MEDS: Ipratropium/Albuterol Neb 3 ML IH SCH ×2 (16:39→23:01)
[2021-04-30] MEDS ORDERED: Insulin DETEMIR 100 UNIT/ML X5UNITS SUBQ SCH (21:00)
[2021-05-01] MEDS: *HR* OxyCODONE/APAP 10/325 TABLET PO PRN ×2 (01:30→07:57)
[2021-05-01] MEDS: Ertapenem 1,000 MG in 0.9 % Sodium Chloride Mini Bag 100 ML IVPB SCH (03:15)
[2021-05-01] MEDS: Furosemide 40 MG TABLET PO SCH ×2 (03:15→14:05)
[2021-05-01] MEDS: Ipratropium/Albuterol Neb 3 ML IH SCH ×2 (04:45→11:01)
[2021-05-01] MEDS: *HR* Heparin 5,000 UNIT/ML VIAL SQ SCH (05:50)
[2021-05-01 06:06] LABS: Hematocrit 35.6 % (35.3-44.9); Hemoglobin 11.1 g/dL (11.5-15.4); Mean Corpuscular HGB Conc 31.2 g/dL (31.6-35.5); Mean Corpuscular Hemoglobin 26.7 pg (28.0-33.3); Mean Corpuscular Volume 85.6 fL (83.0-100.0); Platelet Count 210 K/mcL (140-400); Red Blood Count 4.16 M/mcL (3.82-4.97); White Blood Count 8.2 K/mcL (4.3-11.1)
[2021-05-01 06:29] LABS: BUN/Creatinine Ratio 22 (6-26); Blood Urea Nitrogen 23 mg/dL (8-23); Calcium 8.5 mg/dL (8.6-10.3); Carbon Dioxide 29 mEq/L (23-29); Chloride 101 mEq/L (98-107); Glucose 222 mg/dL (70-105); Magnesium 1.6 mg/dL (1.6-2.6); Osmolality,Calculated 295 (280-300); Phosphorous 3.7 mg/dL (2.7-4.5); Potassium 3.9 mEq/L (3.5-5.1); Sodium 137 mEq/L (136-145); eGFR For African Americans > 60 (> 60); eGFR For Non-African Americans 52 (> 60)
[2021-05-01] MEDS: Calcium Gluconate 1gm/50mL 1 GM/50 ML BAG IVPB SCH ×2 (07:55→10:04)
[2021-05-01] MEDS: Insulin LISPRO 300 UNITS/3 ML VIAL SUBQ SCH ×4 (07:55→11:24)
[2021-05-01] MEDS: Sucralfate 1 GM TABLET PO SCH ×2 (07:56→11:58)
[2021-05-01] MEDS: Ranolazine 500 MG TAB.ER.12H PO SCH (07:56)
[2021-05-01] MEDS: Aspirin Enteric Coated 81 MG Tablet PO SCH (07:56)
[2021-05-01] MEDS: Metoprolol XL (24 HR) Succ 50 MG TAB.ER.24H PO SCH (07:56)
[2021-05-01] MEDS: Lactobacillus 1 EACH CAP.SPRINK PO SCH (07:56)
[2021-05-01] MEDS: Gabapentin 400 MG CAPSULE PO SCH ×2 (07:57→11:58)
[2021-05-01] MEDS: Isosorbide MONOnitrate (24 HR) 60 MG TAB.ER.24H PO SCH (07:57)
[2021-05-01] MEDS: Nicotine 21 MG PATCH.TD24 TD SCH (07:57)
[2021-05-01 10:58] VITALS: BP 108/55; PULSE 57; TEMP 97.5; O2SAT 97
[2021-05-01] MEDS: Budesonide/Formoterol 160/4.5 1 PUFF INH IH SCH (11:01)
== END 2021-05-01 14:26 | disposition home health service (06) | DRG 689 ==
LOC: EMEROOARM 14:19 → 2ANU 14:19 → SUATTDRO 04-27 00:02 → 2ANU 04-27 00:59
PROVIDERS: ADMIT Internal Medicine; ATTEND Internal Medicine

== ENCOUNTER 2021-05-07 23:40 | Observation (INO) ==
[2021-05-08 05:29] LABS: Basophils # 0.1 K/mcL (0.0-0.2); Eosinophils # 0.4 K/mcL (0.0-0.6); Eosinophils % 3.9 %; Hematocrit 37.7 % (35.3-44.9); Hemoglobin 11.9 g/dL (11.5-15.4); Immature Granulocytes % 1.3 % (0-4); Lymphocytes # 2.7 K/mcL (0.6-4.6); Lymphocytes % 29.8 %; Mean Corpuscular HGB Conc 31.6 g/dL (31.6-35.5); Mean Corpuscular Hemoglobin 27.2 pg (28.0-33.3); Mean Corpuscular Volume 86.3 fL (83.0-100.0); Mean Platelet Volume 11.3 fL (9.4-12.4); Monocytes # 0.6 K/mcL (0.0-1.3); Monocytes % 6.6 %; Neutrophils # 5.1 K/mcL (1.6-8.9); Platelet Count 243 K/mcL (140-400); Red Blood Count 4.37 M/mcL (3.82-4.97); Red Cell Distribution Width 20.2 % (11.5-14.5); Segmented Neutrophils % 57.4 %; White Blood Count 8.9 K/mcL (4.3-11.1)
[2021-05-08 05:53] LABS: BUN/Creatinine Ratio 15 (6-26); Blood Urea Nitrogen 14 mg/dL (8-23); Calcium 8.7 mg/dL (8.6-10.3); Carbon Dioxide 26 mEq/L (23-29); Chloride 104 mEq/L (98-107); Glucose 201 mg/dL (70-105); Osmolality,Calculated 290 (280-300); Sodium 137 mEq/L (136-145); eGFR For African Americans > 60 (> 60); eGFR For Non-African Americans > 60 (> 60)
[2021-05-08 05:54] LABS: Anisocytosis 1+ (Not Present); Platelet Estimate Normal (Normal)
[2021-05-08] MEDS ORDERED: Ertapenem 1,000 MG in 0.9 % Sodium Chloride Mini Bag 100 ML IVPB ONE (08:18)
[2021-05-08] MEDS ORDERED: Vancomycin 1,500 MG/265 ML IV.SOLN IVPB ONE (08:18)
[2021-05-08] MEDS ORDERED: *HR* OxyCODONE/APAP 5/325 TABLET PO ONE (09:24)
[2021-05-08] MEDS ORDERED: Sennosides 8.6 MG TABLET PO PRN (12:35)
[2021-05-08] MEDS ORDERED: Ondansetron 4 MG/2 ML VIAL IVP PRN (12:40)
[2021-05-08] MEDS ORDERED: Naloxone 0.4 MG/ML INJ IVP PRN (12:40)
[2021-05-08] MEDS ORDERED: Ipratropium/Albuterol Neb 3 ML IH PRN (13:37)
[2021-05-08] MEDS ORDERED: Isovue-370 500 ML BOTTLE IVP ONE (13:43)
[2021-05-08] MEDS ORDERED: 0.9 % Sodium Chloride 500 ML IVC SCH (13:45)
[2021-05-08] MEDS: Sucralfate 1 GM TABLET PO SCH ×3 (14:26→21:24)
[2021-05-08] MEDS ORDERED: Furosemide 40 MG TABLET PO SCH (17:00)
[2021-05-08] MEDS: *HR* Heparin 5,000 UNIT/ML VIAL SQ SCH (17:29)
[2021-05-08] MEDS ORDERED: Dextrose Gel 15 GM/37.5 ML TUBE PO PRN ×2 (17:57)
[2021-05-08] MEDS ORDERED: *HR* Dextrose 50 % in Water (Vial) 50 ML VIAL IVP PRN (17:57)
[2021-05-08] MEDS ORDERED: D5% in Water 1,000 ML IVC PRN (17:57)
[2021-05-08] MEDS: Budesonide/Formoterol 160/4.5 1 PUFF INH IH SCH (20:01)
[2021-05-08] MEDS: Lactobacillus 1 EACH CAP.SPRINK PO SCH (21:24)
[2021-05-08] MEDS: Isosorbide MONOnitrate (24 HR) 60 MG TAB.ER.24H PO SCH (21:24)
[2021-05-08] MEDS: Acetaminophen 325 MG TABLET PO PRN (21:24)
[2021-05-08] MEDS: Ranolazine 500 MG TAB.ER.12H PO SCH (21:24)
[2021-05-08] MEDS: Vancomycin 1,250 MG/262.5 ML IV.SOLN IVPB SCH (21:25)
[2021-05-08] MEDS: Insulin LISPRO 300 UNITS/3 ML VIAL SUBQ SCH (21:25)
[2021-05-09] MEDS: *HR* Heparin 5,000 UNIT/ML VIAL SQ SCH ×2 (05:40→17:23)
[2021-05-09 06:47] LABS: Basophils # 0.1 K/mcL (0.0-0.2); Basophils % 0.7 %; Eosinophils # 0.3 K/mcL (0.0-0.6); Eosinophils % 4.2 %; Hematocrit 36.9 % (35.3-44.9); Hemoglobin 11.6 g/dL (11.5-15.4); Immature Granulocytes % 1.2 % (0-4); Lymphocytes # 2.1 K/mcL (0.6-4.6); Lymphocytes % 25.7 %; Mean Corpuscular HGB Conc 31.4 g/dL (31.6-35.5); Mean Corpuscular Hemoglobin 27.4 pg (28.0-33.3); Mean Platelet Volume 11.1 fL (9.4-12.4); Monocytes # 0.6 K/mcL (0.0-1.3); Monocytes % 6.8 %; Platelet Count 236 K/mcL (140-400); Red Blood Count 4.24 M/mcL (3.82-4.97); Red Cell Distribution Width 20.3 % (11.5-14.5); Segmented Neutrophils % 61.4 %; White Blood Count 8.1 K/mcL (4.3-11.1)
[2021-05-09 07:11] LABS: BUN/Creatinine Ratio 14 (6-26); Blood Urea Nitrogen 11 mg/dL (8-23); Calcium 8.6 mg/dL (8.6-10.3); Carbon Dioxide 28 mEq/L (23-29); Chloride 107 mEq/L (98-107); Glucose 102 mg/dL (70-105); Magnesium 1.6 mg/dL (1.6-2.6); Osmolality,Calculated 290 (280-300); Sodium 140 mEq/L (136-145); eGFR For African Americans > 60 (> 60); eGFR For Non-African Americans > 60 (> 60)
[2021-05-09] MEDS: Budesonide/Formoterol 160/4.5 1 PUFF INH IH SCH ×2 (08:09→19:42)
[2021-05-09] MEDS: Tiotropium 10 INH DOSE IH SCH (08:10)
[2021-05-09] MEDS: Insulin LISPRO 300 UNITS/3 ML VIAL SUBQ SCH ×4 (09:27→20:29)
[2021-05-09] MEDS: Ertapenem 1,000 MG in 0.9 % Sodium Chloride Mini Bag 100 ML IVPB SCH (09:56)
[2021-05-09] MEDS: Vancomycin 1,250 MG/262.5 ML IV.SOLN IVPB SCH ×2 (09:57→20:44)
[2021-05-09] MEDS: Isosorbide MONOnitrate (24 HR) 60 MG TAB.ER.24H PO SCH ×2 (09:58→20:43)
[2021-05-09] MEDS: Aspirin Enteric Coated 81 MG Tablet PO SCH (09:58)
[2021-05-09] MEDS: Metoprolol XL (24 HR) Succ 50 MG TAB.ER.24H PO SCH (09:58)
[2021-05-09] MEDS: Lactobacillus 1 EACH CAP.SPRINK PO SCH ×2 (09:58→20:42)
[2021-05-09] MEDS: Acetaminophen 325 MG TABLET PO PRN (09:58)
[2021-05-09] MEDS: Sucralfate 1 GM TABLET PO SCH ×4 (09:58→20:42)
[2021-05-09] MEDS: Ranolazine 500 MG TAB.ER.12H PO SCH ×2 (09:58→20:42)
[2021-05-09] MEDS ORDERED: Ertapenem 1,000 MG in 0.9 % Sodium Chloride Mini Bag 100 ML IVPB SCH (11:00)
[2021-05-10] MEDS: Acetaminophen 325 MG TABLET PO PRN ×2 (05:27→16:35)
[2021-05-10] MEDS: *HR* Heparin 5,000 UNIT/ML VIAL SQ SCH ×2 (05:29→16:37)
[2021-05-10] MEDS: Tiotropium 10 INH DOSE IH SCH (08:19)
[2021-05-10] MEDS: Budesonide/Formoterol 160/4.5 1 PUFF INH IH SCH ×2 (08:19→19:49)
[2021-05-10] MEDS: Sucralfate 1 GM TABLET PO SCH ×4 (08:47→21:43)
[2021-05-10] MEDS: Aspirin Enteric Coated 81 MG Tablet PO SCH (08:47)
[2021-05-10] MEDS: Ertapenem 1,000 MG in 0.9 % Sodium Chloride Mini Bag 100 ML IVPB SCH (08:49)
[2021-05-10] MEDS: Ranolazine 500 MG TAB.ER.12H PO SCH ×2 (08:50→21:43)
[2021-05-10] MEDS: Metoprolol XL (24 HR) Succ 50 MG TAB.ER.24H PO SCH (08:51)
[2021-05-10] MEDS: Lactobacillus 1 EACH CAP.SPRINK PO SCH ×2 (08:51→21:43)
[2021-05-10] MEDS: Isosorbide MONOnitrate (24 HR) 60 MG TAB.ER.24H PO SCH ×2 (08:51→21:43)
[2021-05-10] MEDS: Insulin LISPRO 300 UNITS/3 ML VIAL SUBQ SCH ×4 (08:59→21:33)
[2021-05-10] MEDS: Gabapentin 400 MG CAPSULE PO SCH ×3 (09:03→21:43)
[2021-05-10] MEDS: Vancomycin 1,250 MG/262.5 ML IV.SOLN IVPB SCH ×2 (13:22→23:53)
[2021-05-10] MEDS: Melatonin 3 MG TABLET PO PRN (21:43)
[2021-05-11] MEDS: Acetaminophen 325 MG TABLET PO PRN ×2 (05:22→16:28)
[2021-05-11] MEDS: *HR* Heparin 5,000 UNIT/ML VIAL SQ SCH ×2 (05:23→17:20)
[2021-05-11] MEDS: Budesonide/Formoterol 160/4.5 1 PUFF INH IH SCH ×2 (07:31→20:27)
[2021-05-11] MEDS: Tiotropium 10 INH DOSE IH SCH (07:32)
[2021-05-11] MEDS: Metoprolol XL (24 HR) Succ 50 MG TAB.ER.24H PO SCH (09:47)
[2021-05-11] MEDS: Ertapenem 1,000 MG in 0.9 % Sodium Chloride Mini Bag 100 ML IVPB SCH (09:48)
[2021-05-11] MEDS: Aspirin Enteric Coated 81 MG Tablet PO SCH (09:48)
[2021-05-11] MEDS: Ranolazine 500 MG TAB.ER.12H PO SCH ×2 (09:48→21:13)
[2021-05-11] MEDS: Isosorbide MONOnitrate (24 HR) 60 MG TAB.ER.24H PO SCH ×2 (09:48→21:13)
[2021-05-11] MEDS: Lactobacillus 1 EACH CAP.SPRINK PO SCH ×2 (09:48→21:13)
[2021-05-11] MEDS: Sucralfate 1 GM TABLET PO SCH ×4 (09:48→21:13)
[2021-05-11] MEDS: Gabapentin 400 MG CAPSULE PO SCH ×3 (09:48→21:13)
[2021-05-11] MEDS: Insulin LISPRO 300 UNITS/3 ML VIAL SUBQ SCH ×4 (10:42→21:19)
[2021-05-11] MEDS: Doxycycline 100 MG CAPSULE PO SCH (21:13)
[2021-05-11] MEDS: Melatonin 3 MG TABLET PO PRN (21:17)
[2021-05-12] MEDS: *HR* Heparin 5,000 UNIT/ML VIAL SQ SCH ×2 (05:00→17:40)
[2021-05-12] MEDS: Acetaminophen 325 MG TABLET PO PRN ×3 (05:00→20:59)
[2021-05-12] MEDS: Ranolazine 500 MG TAB.ER.12H PO SCH ×2 (07:40→20:58)
[2021-05-12] MEDS: Lactobacillus 1 EACH CAP.SPRINK PO SCH ×2 (07:40→20:58)
[2021-05-12] MEDS: Isosorbide MONOnitrate (24 HR) 60 MG TAB.ER.24H PO SCH ×2 (07:41→20:57)
[2021-05-12] MEDS: Gabapentin 400 MG CAPSULE PO SCH ×3 (07:41→20:57)
[2021-05-12] MEDS: Metoprolol XL (24 HR) Succ 50 MG TAB.ER.24H PO SCH (07:41)
[2021-05-12] MEDS: Aspirin Enteric Coated 81 MG Tablet PO SCH (07:41)
[2021-05-12] MEDS: Insulin LISPRO 300 UNITS/3 ML VIAL SUBQ SCH ×4 (07:41→21:09)
[2021-05-12] MEDS: Sucralfate 1 GM TABLET PO SCH ×4 (07:41→21:00)
[2021-05-12] MEDS: Tiotropium 10 INH DOSE IH SCH (10:04)
[2021-05-12] MEDS: Budesonide/Formoterol 160/4.5 1 PUFF INH IH SCH ×2 (10:04→20:08)
[2021-05-12] MEDS: Doxycycline 100 MG CAPSULE PO SCH ×2 (10:45→21:03)
[2021-05-12 12:57] LABS: Bacteria,Urine Few per hpf (None-Few); Bilirubin,Urine Negative (Negative); Blood,Urine Negative (Negative); Clarity,Urine Turbid (Clear); Color,Urine Yellow (Yellow); Glucose,Urine (UA) 200 mg/dL (Normal); Hyaline Casts,Urine Few per lpf (None Seen); Ketones,Urine Negative (Negative); Leukocyte Esterase,Urine Moderate (Negative); Mucus,Urine Few per lpf (None-Few); Nitrite,Urine Negative (Negative); PH,Urine 6.5 pH Units (5.0-8.0); Protein,Urine >=300 mg/dL (Neg-Trace); Specific Gravity,Urine 1.016 (1.010-1.025); Squamous Epithelial Cell,Urine Moderate per hpf (None-Few); Transitional Epi Cells,Urine Few per hpf (None-Few); Urobilinogen,Urine Normal (Normal); WBC,Urine TNTC per hpf (0-3)
[2021-05-12] MEDS: Melatonin 3 MG TABLET PO PRN (20:59)
[2021-05-13] MEDS ORDERED: Nitroglycerin 0.4 MG TAB.SUBL SL PRN (03:51)
[2021-05-13] MEDS: Tiotropium 10 INH DOSE IH SCH (07:28)
[2021-05-13] MEDS: Budesonide/Formoterol 160/4.5 1 PUFF INH IH SCH (07:29)
[2021-05-13] MEDS ORDERED: Insulin DETEMIR 100 UNIT/ML X5UNITS SUBQ SCH (09:00)
[2021-05-13] MEDS: amLODIPine 5 MG TABLET PO SCH ×2 (09:17→09:24)
[2021-05-13] MEDS: Gabapentin 400 MG CAPSULE PO SCH (09:23)
[2021-05-13] MEDS: Isosorbide MONOnitrate (24 HR) 60 MG TAB.ER.24H PO SCH (09:23)
[2021-05-13] MEDS: Acetaminophen 325 MG TABLET PO PRN (09:24)
[2021-05-13] MEDS: Ranolazine 500 MG TAB.ER.12H PO SCH (09:24)
[2021-05-13] MEDS: Doxycycline 100 MG CAPSULE PO SCH (09:24)
[2021-05-13] MEDS: Sucralfate 1 GM TABLET PO SCH ×2 (09:24→13:49)
[2021-05-13] MEDS: Metoprolol XL (24 HR) Succ 50 MG TAB.ER.24H PO SCH (09:24)
[2021-05-13] MEDS: Aspirin Enteric Coated 81 MG Tablet PO SCH (09:24)
[2021-05-13] MEDS: Lactobacillus 1 EACH CAP.SPRINK PO SCH (09:24)
[2021-05-13] MEDS: Insulin LISPRO 300 UNITS/3 ML VIAL SUBQ SCH ×2 (09:25→13:49)
[2021-05-13] MEDS: *HR* Heparin 5,000 UNIT/ML VIAL SQ SCH (09:25)
[2021-05-13] MEDS ORDERED: lisinopriL 10 MG TABLET PO SCH (09:30)
[2021-05-13] MEDS ORDERED: Aspirin Enteric Coated 81 MG Tablet PO SCH (09:30)
[2021-05-13 10:55] VITALS: BP 152/57; PULSE 56; TEMP 98.1; O2SAT 97
== END 2021-05-13 14:38 ==
LOC: EMEROOARM 23:40 → 3NENU 23:40 → SUATTDRO 05-08 12:17 → 3NENU 05-08 13:17 → 3BNU 05-08 23:33
PROVIDERS: ADMIT Internal Medicine; ATTEND Internal Medicine

== ENCOUNTER 2021-06-09 22:39 | Inpatient (IN) ==
[2021-06-09] MEDS ORDERED: Isovue-370 500 ML BOTTLE IVP ONE (23:48)
[2021-06-10 00:18] LABS: Basophils # 0.1 K/mcL (0.0-0.2); Basophils % 0.6 %; Eosinophils # 0.5 K/mcL (0.0-0.6); Eosinophils % 4.3 %; Hematocrit 36.9 % (35.3-44.9); Hemoglobin 11.4 g/dL (11.5-15.4); Immature Granulocytes % 1.5 % (0-4); Lymphocytes # 3.1 K/mcL (0.6-4.6); Lymphocytes % 28.4 %; Mean Corpuscular HGB Conc 30.9 g/dL (31.6-35.5); Mean Corpuscular Hemoglobin 27.7 pg (28.0-33.3); Mean Corpuscular Volume 89.8 fL (83.0-100.0); Mean Platelet Volume 10.4 fL (9.4-12.4); Monocytes # 0.8 K/mcL (0.0-1.3); Monocytes % 7.2 %; Neutrophils # 6.3 K/mcL (1.6-8.9); Platelet Count 240 K/mcL (140-400); Red Blood Count 4.11 M/mcL (3.82-4.97); Red Cell Distribution Width 18.7 % (11.5-14.5); White Blood Count 10.9 K/mcL (4.3-11.1)
[2021-06-10 00:38] LABS: BUN/Creatinine Ratio 26 (6-26); Blood Urea Nitrogen 25 mg/dL (8-23); Calcium 8.9 mg/dL (8.6-10.3); Carbon Dioxide 27 mEq/L (23-29); Chloride 105 mEq/L (98-107); Glucose 115 mg/dL (70-105); Osmolality,Calculated 289 (280-300); Potassium 4.5 mEq/L (3.5-5.1); Sodium 137 mEq/L (136-145); Troponin I 0.03 ng/mL (< 0.04); eGFR For African Americans > 60 (> 60); eGFR For Non-African Americans 58 (> 60)
[2021-06-10] MEDS ORDERED: Isovue-370 500 ML BOTTLE IVP ONE (01:38)
[2021-06-10] MEDS ORDERED: Vancomycin 1,750 MG/517.5 ML IV.SOLN IVPB ONE (03:06)
[2021-06-10] MEDS ORDERED: Piperacillin/Tazobactam 3.375 GM in 0.9 % Sodium Chloride Mini Bag 100 ML IVPB ONE (03:07)
[2021-06-10] MEDS ORDERED: Piperacillin/Tazobactam 3.375 GM VIAL ONE (03:11)
[2021-06-10] MEDS ORDERED: Naloxone 0.4 MG/ML INJ IVP PRN (03:20)
[2021-06-10] MEDS ORDERED: Melatonin 3 MG TABLET PO PRN (03:20)
[2021-06-10] MEDS ORDERED: D5% in Water 1,000 ML IVC PRN (03:28)
[2021-06-10] MEDS ORDERED: Dextrose Gel 15 GM/37.5 ML TUBE PO PRN ×2 (03:28)
[2021-06-10] MEDS: *HR* Dextrose 50 % in Water (Syg) 50 ML SYRINGE IVP PRN ×8 (04:26→21:40)
[2021-06-10] MEDS: *HR* Heparin 5,000 UNIT/ML VIAL SQ SCH ×2 (04:54→17:21)
[2021-06-10 05:05] LABS: ABG Base Excess 0 mEq/L (-2 to 3); ABG HCO3 27 mEq/L (21-27); ABG Oxygen Saturation 88 % (95-98); ABG PCO2 52 mmHg (35-45); ABG PH 7.32 pH Units (7.32-7.45); ABG PO2 60 mmHg (85-104); ABG TCO2 28 mEq/L (20-26)
[2021-06-10] MEDS ORDERED: Gadolinium Contrast Agent (WT Based) IV PRN (05:22)
[2021-06-10 06:02] LABS: Bacteria,Urine Many per hpf (None-Few); Bilirubin,Urine Negative (Negative); Blood,Urine Small (Negative); Clarity,Urine Ex.Turbid (Clear); Color,Urine Yellow (Yellow); Glucose,Urine (UA) Normal (Normal); Ketones,Urine Negative (Negative); Leukocyte Esterase,Urine Large (Negative); Mucus,Urine Few per lpf (None-Few); Nitrite,Urine Negative (Negative); Protein,Urine 200 mg/dL (Neg-Trace); RBC,Urine 30-50 per hpf (0-3); Specific Gravity,Urine 1.023 (1.010-1.025); Squamous Epithelial Cell,Urine Few per hpf (None-Few); Urobilinogen,Urine Normal (Normal); WBC,Urine TNTC per hpf (0-3)
[2021-06-10] MEDS ORDERED: Insulin LISPRO 300 UNITS/3 ML VIAL SUBQ SCH ×2 (07:30→21:00)
[2021-06-10] MEDS ORDERED: Insulin DETEMIR 100 UNIT/ML X5UNITS SUBQ SCH (09:00)
[2021-06-10 09:15] LABS: Hemoglobin 11.2 g/dL (11.5-15.4); Mean Corpuscular HGB Conc 30.3 g/dL (31.6-35.5); Mean Corpuscular Hemoglobin 27.5 pg (28.0-33.3); Mean Corpuscular Volume 90.7 fL (83.0-100.0); Mean Platelet Volume 10.7 fL (9.4-12.4); Platelet Count 239 K/mcL (140-400); Red Blood Count 4.08 M/mcL (3.82-4.97); Red Cell Distribution Width 18.9 % (11.5-14.5)
[2021-06-10 09:21] LABS: BUN/Creatinine Ratio 27 (6-26); Blood Urea Nitrogen 24 mg/dL (8-23); Calcium 8.5 mg/dL (8.6-10.3); Carbon Dioxide 27 mEq/L (23-29); Chloride 109 mEq/L (98-107); Glucose 97 mg/dL (70-105); Osmolality,Calculated 290 (280-300); Potassium 4.9 mEq/L (3.5-5.1); Sodium 138 mEq/L (136-145); eGFR For African Americans > 60 (> 60); eGFR For Non-African Americans > 60 (> 60)
[2021-06-10 09:36] LABS: Estimated Average Glucose 192 mg/dl; Hemoglobin A1C 8.3 %
[2021-06-10] MEDS: Metoprolol XL (24 HR) Succ 50 MG TAB.ER.24H PO SCH (10:42)
[2021-06-10] MEDS: Isosorbide MONOnitrate (24 HR) 60 MG TAB.ER.24H PO SCH ×2 (10:43→20:04)
[2021-06-10] MEDS: Gabapentin 400 MG CAPSULE PO SCH ×3 (10:43→17:21)
[2021-06-10] MEDS: Aspirin 81 MG TAB.CHEW PO SCH (10:43)
[2021-06-10] MEDS: Piperacillin/Tazobactam 3.375 GM in 0.9 % Sodium Chloride Mini Bag 100 ML IVPB SCH ×2 (10:48→17:20)
[2021-06-10] MEDS ORDERED: Ampicillin/Sulbactam 3,000 MG in 0.9 % Sodium Chloride Mini Bag 100 ML IVPB SCH (11:00)
[2021-06-11] MEDS ORDERED: *HR* FentaNYL PATCH 25 MCG PATCH TD SCH (02:00)
[2021-06-11] MEDS: Albuterol 2.5 MG/3 ML NEBULIZER IH SCH ×6 (02:16→23:38)
[2021-06-11] MEDS: Piperacillin/Tazobactam 3.375 GM in 0.9 % Sodium Chloride Mini Bag 100 ML IVPB SCH ×2 (02:45→12:41)
[2021-06-11] MEDS ORDERED: Tiotropium 10 INH DOSE IH ONE (04:53)
[2021-06-11] MEDS: *HR* Heparin 5,000 UNIT/ML VIAL SQ SCH ×2 (05:14→15:23)
[2021-06-11] MEDS: Tiotropium 10 INH DOSE IH SCH (07:14)
[2021-06-11] MEDS: Budesonide/Formoterol 160/4.5 1 PUFF INH IH SCH ×2 (07:14→20:14)
[2021-06-11] MEDS: Aspirin 81 MG TAB.CHEW PO SCH (08:43)
[2021-06-11] MEDS: Isosorbide MONOnitrate (24 HR) 60 MG TAB.ER.24H PO SCH ×2 (08:44→20:28)
[2021-06-11] MEDS: Gabapentin 400 MG CAPSULE PO SCH ×3 (08:44→17:05)
[2021-06-11] MEDS: Metoprolol XL (24 HR) Succ 50 MG TAB.ER.24H PO SCH (08:44)
[2021-06-11] MEDS: *HR* OxyCODONE/APAP 10/325 TABLET PO PRN ×2 (12:41→20:28)
[2021-06-11] MEDS: Insulin LISPRO 300 UNITS/3 ML VIAL SUBQ SCH ×2 (13:02→17:05)
[2021-06-11] MEDS ORDERED: cefTRIAXone 1,000 MG in 0.9 % Sodium Chloride Mini Bag 100 ML IVPB SCH (15:00)
[2021-06-11] MEDS ORDERED: Insulin LISPRO 300 UNITS/3 ML VIAL SUBQ SCH (21:00)
[2021-06-12] MEDS: *HR* OxyCODONE/APAP 10/325 TABLET PO PRN ×2 (03:31→09:47)
[2021-06-12] MEDS: Albuterol 2.5 MG/3 ML NEBULIZER IH SCH ×4 (03:39→15:33)
[2021-06-12] MEDS: *HR* Heparin 5,000 UNIT/ML VIAL SQ SCH (05:19)
[2021-06-12] MEDS: Tiotropium 10 INH DOSE IH SCH (07:35)
[2021-06-12] MEDS: Budesonide/Formoterol 160/4.5 1 PUFF INH IH SCH (07:36)
[2021-06-12] MEDS: Aspirin 81 MG TAB.CHEW PO SCH (07:47)
[2021-06-12] MEDS: Isosorbide MONOnitrate (24 HR) 60 MG TAB.ER.24H PO SCH (07:47)
[2021-06-12] MEDS: Insulin LISPRO 300 UNITS/3 ML VIAL SUBQ SCH ×2 (07:47→11:50)
[2021-06-12] MEDS: Gabapentin 400 MG CAPSULE PO SCH ×2 (07:47→11:55)
[2021-06-12] MEDS: Metoprolol XL (24 HR) Succ 50 MG TAB.ER.24H PO SCH (07:47)
[2021-06-12] MEDS ORDERED: Ertapenem 1,000 MG in 0.9 % Sodium Chloride Mini Bag 100 ML IVPB SCH (09:00)
[2021-06-12 11:21] VITALS: BP 142/65; PULSE 61; TEMP 98; O2SAT 98
[2021-06-12] MEDS ORDERED: Fosfomycin Tromethamine 3 GM Packet PO ONE (12:45)
== END 2021-06-12 16:20 | disposition hospice, home (50) | DRG 637 ==
LOC: 3BNU 22:39 → EMEROOARM 22:39 → 3BNU 06-10 04:15 → SUATTDRO 06-10 06:05
PROVIDERS: ADMIT Student in an Organized Health Care Education/Training Program; ATTEND Registered Nurse

== ENCOUNTER 2021-06-27 22:24 | Inpatient (IN) ==
[2021-06-28 01:10] LABS: Basophils # 0.1 K/mcL (0.0-0.2); Basophils % 0.6 %; Eosinophils # 0.3 K/mcL (0.0-0.6); Hematocrit 37.7 % (35.3-44.9); Hemoglobin 11.3 g/dL (11.5-15.4); Immature Granulocytes % 1.2 % (0-4); Lymphocytes # 2.4 K/mcL (0.6-4.6); Lymphocytes % 28.4 %; Mean Corpuscular Hemoglobin 27.3 pg (28.0-33.3); Mean Corpuscular Volume 91.1 fL (83.0-100.0); Mean Platelet Volume 10.7 fL (9.4-12.4); Monocytes # 0.7 K/mcL (0.0-1.3); Monocytes % 8.1 %; Nucleated Red Blood Cells 0.3 /100 WBC (0); Platelet Count 260 K/mcL (140-400); Red Blood Count 4.14 M/mcL (3.82-4.97); Red Cell Distribution Width 16.4 % (11.5-14.5); Segmented Neutrophils % 57.7 %; White Blood Count 8.6 K/mcL (4.3-11.1)
[2021-06-28 01:26] LABS: INR 0.9; Prothrombin Time 10.5 Seconds (9.4-12.1)
[2021-06-28 01:32] LABS: Alanine Aminotransferase 10 Units/L (7-52); Albumin/Globulin Ratio 0.8 (1.1-2.2); Alkaline Phosphatase 114 Units/L (34-104); Aspartate Amino Transferase 13 Units/L (13-39); BUN/Creatinine Ratio 23 (6-26); Bilirubin,Indirect 0.2 mg/dL (0.0-1.0); Bilirubin,Total 0.2 mg/dL (0.3-1.0); Blood Urea Nitrogen 36 mg/dL (8-23); Calcium 8.4 mg/dL (8.6-10.3); Carbon Dioxide 26 mEq/L (23-29); Chloride 103 mEq/L (98-107); Globulin 3.6 g/dL (2.4-3.5); Glucose 107 mg/dL (70-105); Osmolality,Calculated 291 (280-300); Potassium 5.7 mEq/L (3.5-5.1); Sodium 136 mEq/L (136-145); Total Protein 6.6 g/dL (6.4-8.9); eGFR For African Americans 41 (> 60); eGFR For Non-African Americans 34 (> 60)
[2021-06-28 01:33] LABS: Troponin I < 0.03 ng/mL (< 0.04)
[2021-06-28 01:33] LABS: Bacteria,Urine Moderate per hpf (None-Few); Bilirubin,Urine Negative (Negative); Blood,Urine Negative (Negative); Clarity,Urine Turbid (Clear); Color,Urine Light-Yellow (Yellow); Glucose,Urine (UA) Normal (Normal); Hyaline Casts,Urine Few per lpf (None Seen); Ketones,Urine Negative (Negative); Leukocyte Esterase,Urine Large (Negative); Nitrite,Urine Negative (Negative); Protein,Urine 100 mg/dL (Neg-Trace); Specific Gravity,Urine 1.011 (1.010-1.025); Squamous Epithelial Cell,Urine Few per hpf (None-Few); Urobilinogen,Urine Normal (Normal); WBC,Urine 50-100 per hpf (0-3)
[2021-06-28] MEDS ORDERED: Furosemide 40 MG/4 ML VIAL IVP ONE (01:54)
[2021-06-28] MEDS ORDERED: SODIUM ZIRCONIUM CYCLOSILICATE 5 GM POWD.PACK PO ONE (01:57)
[2021-06-28] MEDS ORDERED: Ertapenem 1,000 MG in 0.9 % Sodium Chloride Mini Bag 100 ML IVPB ONE (01:57)
[2021-06-28] MEDS: Albuterol 2.5 MG/3 ML NEBULIZER IH SCH ×6 (04:05→23:19)
[2021-06-28] MEDS ORDERED: Melatonin 3 MG TABLET PO PRN (04:08)
[2021-06-28] MEDS ORDERED: Acetaminophen 325 MG TABLET PO PRN (04:08)
[2021-06-28] MEDS ORDERED: Naloxone 0.4 MG/ML INJ IVP PRN (04:08)
[2021-06-28] MEDS ORDERED: Ondansetron 4 MG/2 ML VIAL IVP PRN (04:08)
[2021-06-28] MEDS ORDERED: D5% in Water 1,000 ML IVC PRN (04:22)
[2021-06-28] MEDS ORDERED: Dextrose Gel 15 GM/37.5 ML TUBE PO PRN ×2 (04:22)
[2021-06-28] MEDS ORDERED: *HR* Dextrose 50 % in Water (Syg) 50 ML SYRINGE IVP PRN (04:22)
[2021-06-28] MEDS ORDERED: *HR* Heparin 5,000 UNIT/ML VIAL SQ SCH (06:00)
[2021-06-28] MEDS ORDERED: Vancomycin 1,500 MG/265 ML IV.SOLN IVPB ONE (06:00)
[2021-06-28] MEDS: Budesonide/Formoterol 160/4.5 1 PUFF INH IH SCH ×2 (07:28→23:19)
[2021-06-28] MEDS: Tiotropium 10 INH DOSE IH SCH (07:28)
[2021-06-28] MEDS ORDERED: Budesonide/Formoterol 160/4.5 1 PUFF INH IH ONE (07:36)
[2021-06-28] MEDS: Insulin LISPRO 300 UNITS/3 ML VIAL SUBQ SCH ×4 (07:53→22:32)
[2021-06-28] MEDS: Isosorbide MONOnitrate (24 HR) 60 MG TAB.ER.24H PO SCH (08:30)
[2021-06-28] MEDS: Furosemide 40 MG/4 ML VIAL IVP SCH (08:59)
[2021-06-28] MEDS: lisinopriL 10 MG TABLET PO SCH (08:59)
[2021-06-28] MEDS: Piperacillin/Tazobactam 3.375 GM in 0.9 % Sodium Chloride Mini Bag 100 ML IVPB SCH ×2 (09:00→15:53)
[2021-06-28] MEDS: Ranolazine 500 MG TAB.ER.12H PO SCH ×2 (09:00→22:32)
[2021-06-28] MEDS: Metoprolol XL (24 HR) Succ 50 MG TAB.ER.24H PO SCH (09:00)
[2021-06-28] MEDS ORDERED: Ertapenem 1,000 MG in 0.9 % Sodium Chloride Mini Bag 100 ML IVPB SCH (09:00)
[2021-06-28] MEDS: Gabapentin 400 MG CAPSULE PO SCH ×3 (09:00→22:31)
[2021-06-28] MEDS: haloperidoL 1 MG TABLET PO SCH ×2 (09:00→22:31)
[2021-06-28] MEDS ORDERED: 0.9 % Sodium Chloride 1,000 ML IVC SCH (10:30)
[2021-06-28] MEDS ORDERED: *HR* Heparin 5,000 UNIT/ML VIAL IVP ONE (12:25)
[2021-06-28] MEDS ORDERED: *HR* Heparin 5,000 UNIT/ML VIAL IVP PRN ×2 (12:25)
[2021-06-28 13:13] LABS: Hematocrit 36.6 % (35.3-44.9); Hemoglobin 11.1 g/dL (11.5-15.4); Mean Corpuscular HGB Conc 30.3 g/dL (31.6-35.5); Mean Corpuscular Volume 89.1 fL (83.0-100.0); Mean Platelet Volume 10.6 fL (9.4-12.4); Platelet Count 252 K/mcL (140-400); Red Blood Count 4.11 M/mcL (3.82-4.97); Red Cell Distribution Width 16.3 % (11.5-14.5); White Blood Count 8.9 K/mcL (4.3-11.1)
[2021-06-28 13:24] LABS: Heparin anti-factor XA UFH < 0.04 IU/mL (0.30-0.70); Prothrombin Time 10.7 Seconds (9.4-12.1)
[2021-06-28] MEDS: Heparin 25,000UNIT/250ML 1/2NS 25,000 UNIT/250 ML IV.SOLN IVC SCH (13:51)
[2021-06-28] MEDS: Insulin DETEMIR 100 UNIT/ML X5UNITS SUBQ SCH (22:31)
[2021-06-29] MEDS: Piperacillin/Tazobactam 3.375 GM in 0.9 % Sodium Chloride Mini Bag 100 ML IVPB SCH ×3 (01:37→16:36)
[2021-06-29] MEDS: Albuterol 2.5 MG/3 ML NEBULIZER IH SCH ×6 (04:19→23:15)
[2021-06-29 05:16] LABS: Basophils # 0.1 K/mcL (0.0-0.2); Basophils % 1.1 %; Eosinophils # 0.2 K/mcL (0.0-0.6); Eosinophils % 3.4 %; Hematocrit 33.8 % (35.3-44.9); Hemoglobin 10.4 g/dL (11.5-15.4); Immature Granulocytes % 1.1 % (0-4); Lymphocytes % 30.2 %; Mean Corpuscular HGB Conc 30.8 g/dL (31.6-35.5); Mean Corpuscular Hemoglobin 27.4 pg (28.0-33.3); Mean Corpuscular Volume 89.2 fL (83.0-100.0); Mean Platelet Volume 10.7 fL (9.4-12.4); Monocytes # 0.4 K/mcL (0.0-1.3); Monocytes % 6.8 %; Neutrophils # 3.7 K/mcL (1.6-8.9); Platelet Count 238 K/mcL (140-400); Red Blood Count 3.79 M/mcL (3.82-4.97); Red Cell Distribution Width 16.1 % (11.5-14.5); Segmented Neutrophils % 57.4 %; White Blood Count 6.5 K/mcL (4.3-11.1)
[2021-06-29] MEDS: Heparin 25,000UNIT/250ML 1/2NS 25,000 UNIT/250 ML IV.SOLN IVC SCH (05:51)
[2021-06-29 06:00] LABS: Albumin 2.7 g/dL (3.5-5.7); Albumin/Globulin Ratio 0.9 (1.1-2.2); Bilirubin,Total 0.4 mg/dL (0.3-1.0); Calcium 8.1 mg/dL (8.6-10.3); Potassium 4.5 mEq/L (3.5-5.1); Total Protein 5.7 g/dL (6.4-8.9)
[2021-06-29] MEDS: Insulin LISPRO 300 UNITS/3 ML VIAL SUBQ SCH ×4 (07:16→20:46)
[2021-06-29] MEDS: Budesonide/Formoterol 160/4.5 1 PUFF INH IH SCH ×2 (07:29→20:27)
[2021-06-29] MEDS: Tiotropium 10 INH DOSE IH SCH (07:30)
[2021-06-29] MEDS: Furosemide 40 MG/4 ML VIAL IVP SCH (07:33)
[2021-06-29] MEDS: Isosorbide MONOnitrate (24 HR) 60 MG TAB.ER.24H PO SCH (07:35)
[2021-06-29] MEDS: lisinopriL 10 MG TABLET PO SCH (07:35)
[2021-06-29] MEDS: haloperidoL 1 MG TABLET PO SCH ×2 (07:35→20:44)
[2021-06-29] MEDS: Ranolazine 500 MG TAB.ER.12H PO SCH ×2 (07:35→20:44)
[2021-06-29] MEDS: Metoprolol XL (24 HR) Succ 50 MG TAB.ER.24H PO SCH (07:35)
[2021-06-29] MEDS: Gabapentin 400 MG CAPSULE PO SCH ×3 (07:35→20:44)
[2021-06-29] MEDS: *HR* HYDROcodone/Acet 5/325 mg TABLET PO PRN ×2 (07:42→20:43)
[2021-06-29] MEDS ORDERED: *HR* FentaNYL PATCH 25 MCG PATCH TD SCH (12:15)
[2021-06-29] MEDS: *HR* Rivaroxaban 15 MG TABLET PO SCH (20:44)
[2021-06-29] MEDS: Insulin DETEMIR 100 UNIT/ML X5UNITS SUBQ SCH (20:46)
[2021-06-30] MEDS: Piperacillin/Tazobactam 3.375 GM in 0.9 % Sodium Chloride Mini Bag 100 ML IVPB SCH ×2 (01:34→08:25)
[2021-06-30 02:22] LABS: Basophils # 0.1 K/mcL (0.0-0.2); Basophils % 0.8 %; Eosinophils # 0.2 K/mcL (0.0-0.6); Eosinophils % 2.3 %; Hemoglobin 10.3 g/dL (11.5-15.4); Immature Granulocytes % 0.6 % (0-4); Lymphocytes # 1.6 K/mcL (0.6-4.6); Lymphocytes % 20.6 %; Mean Corpuscular HGB Conc 30.3 g/dL (31.6-35.5); Mean Corpuscular Hemoglobin 26.8 pg (28.0-33.3); Mean Corpuscular Volume 88.5 fL (83.0-100.0); Mean Platelet Volume 11.2 fL (9.4-12.4); Monocytes # 0.5 K/mcL (0.0-1.3); Monocytes % 6.9 %; Neutrophils # 5.4 K/mcL (1.6-8.9); Platelet Count 235 K/mcL (140-400); Red Blood Count 3.84 M/mcL (3.82-4.97); Red Cell Distribution Width 15.9 % (11.5-14.5); Segmented Neutrophils % 68.8 %; White Blood Count 7.9 K/mcL (4.3-11.1)
[2021-06-30 02:41] LABS: Albumin 2.8 g/dL (3.5-5.7); Albumin/Globulin Ratio 0.9 (1.1-2.2); Bilirubin,Total 0.3 mg/dL (0.3-1.0); Calcium 8.6 mg/dL (8.6-10.3); Globulin 3.2 g/dL (2.4-3.5); Potassium 4.5 mEq/L (3.5-5.1)
[2021-06-30] MEDS: Albuterol 2.5 MG/3 ML NEBULIZER IH SCH ×3 (03:04→10:58)
[2021-06-30] MEDS: Insulin LISPRO 300 UNITS/3 ML VIAL SUBQ SCH ×2 (07:23→12:15)
[2021-06-30] MEDS: Budesonide/Formoterol 160/4.5 1 PUFF INH IH SCH (07:52)
[2021-06-30] MEDS: Tiotropium 10 INH DOSE IH SCH (07:52)
[2021-06-30] MEDS: Gabapentin 400 MG CAPSULE PO SCH (08:21)
[2021-06-30] MEDS: Ranolazine 500 MG TAB.ER.12H PO SCH (08:22)
[2021-06-30] MEDS: *HR* Rivaroxaban 15 MG TABLET PO SCH (08:22)
[2021-06-30] MEDS: Metoprolol XL (24 HR) Succ 50 MG TAB.ER.24H PO SCH (08:22)
[2021-06-30] MEDS: lisinopriL 10 MG TABLET PO SCH (08:22)
[2021-06-30] MEDS: Isosorbide MONOnitrate (24 HR) 60 MG TAB.ER.24H PO SCH (08:22)
[2021-06-30] MEDS: haloperidoL 1 MG TABLET PO SCH (08:22)
[2021-06-30] MEDS: *HR* HYDROcodone/Acet 5/325 mg TABLET PO PRN (12:20)
[2021-06-30 14:19] VITALS: BP 189/94; PULSE 65; TEMP 97.5; O2SAT 96
== END 2021-06-30 15:02 | disposition home or self-care (01) | DRG 299 ==
LOC: EMEROOARM 22:24 → 3ANU 22:24 → SUATTDRO 06-28 04:00 → 3ANU 06-28 04:45
PROVIDERS: ADMIT Internal Medicine; ATTEND Internal Medicine

== ENCOUNTER 2021-08-04 09:04 | Inpatient (IN) ==
[2021-08-04] MEDS ORDERED: Isovue-370 500 ML BOTTLE IVP ONE (09:26)
[2021-08-04 09:59] LABS: Basophils # 0.1 K/mcL (0.0-0.2); Basophils % 0.7 %; Eosinophils # 0.3 K/mcL (0.0-0.6); Eosinophils % 3.3 %; Hematocrit 35.3 % (35.3-44.9); Hemoglobin 10.5 g/dL (11.5-15.4); Lymphocytes % 20.2 %; Mean Corpuscular HGB Conc 29.7 g/dL (31.6-35.5); Mean Corpuscular Hemoglobin 25.5 pg (28.0-33.3); Mean Corpuscular Volume 85.7 fL (83.0-100.0); Mean Platelet Volume 10.8 fL (9.4-12.4); Monocytes # 0.6 K/mcL (0.0-1.3); Monocytes % 6.2 %; Neutrophils # 6.7 K/mcL (1.6-8.9); Nucleated Red Blood Cells 0.3 /100 WBC (0); Platelet Count 233 K/mcL (140-400); Red Blood Count 4.12 M/mcL (3.82-4.97); Red Cell Distribution Width 16.2 % (11.5-14.5); Segmented Neutrophils % 68.6 %; White Blood Count 9.8 K/mcL (4.3-11.1)
[2021-08-04 10:12] LABS: INR 1.1
[2021-08-04 10:14] LABS: Activated Partial Thrombo Time 35.1 Seconds (26.0-36.0)
[2021-08-04 10:17] LABS: Alanine Aminotransferase 6 Units/L (7-52); Albumin 3.2 g/dL (3.5-5.7); Albumin/Globulin Ratio 0.9 (1.1-2.2); Alkaline Phosphatase 101 Units/L (34-104); Aspartate Amino Transferase 10 Units/L (13-39); BUN/Creatinine Ratio 15 (6-26); Bilirubin,Indirect 0.3 mg/dL (0.0-1.0); Bilirubin,Total 0.3 mg/dL (0.3-1.0); Blood Urea Nitrogen 19 mg/dL (8-23); Calcium 8.5 mg/dL (8.6-10.3); Carbon Dioxide 23 mEq/L (23-29); Chloride 103 mEq/L (98-107); Globulin 3.5 g/dL (2.4-3.5); Glucose 122 mg/dL (70-105); Osmolality,Calculated 276 (280-300); Potassium 5.6 mEq/L (3.5-5.1); Sodium 131 mEq/L (136-145); Total Protein 6.7 g/dL (6.4-8.9); eGFR For African Americans 53 (> 60); eGFR For Non-African Americans 44 (> 60)
[2021-08-04 10:24] LABS: Troponin I < 0.03 ng/mL (< 0.04)
[2021-08-04] MEDS ORDERED: Albuterol 2.5 MG/3 ML NEBULIZER IH ONE (11:12)
[2021-08-04] MEDS ORDERED: Furosemide 40 MG/4 ML VIAL IVP ONE (11:28)
[2021-08-04 14:38] LABS: Bacteria,Urine Few per hpf (None-Few); Bilirubin,Urine Negative (Negative); Blood,Urine Negative (Negative); Clarity,Urine Clear (Clear); Color,Urine Light-Yellow (Yellow); Glucose,Urine (UA) Normal (Normal); Ketones,Urine Negative (Negative); Leukocyte Esterase,Urine Large (Negative); Nitrite,Urine Positive (Negative); Protein,Urine 100 mg/dL (Neg-Trace); Specific Gravity,Urine 1.008 (1.010-1.025); Squamous Epithelial Cell,Urine Few per hpf (None-Few); Urobilinogen,Urine Normal (Normal); WBC,Urine 50-100 per hpf (0-3)
[2021-08-04] MEDS ORDERED: Ertapenem 1,000 MG in 0.9 % Sodium Chloride Mini Bag 100 ML IVPB ONE (14:47)
[2021-08-04] MEDS ORDERED: Naloxone 0.4 MG/ML INJ IVP PRN (15:13)
[2021-08-04] MEDS ORDERED: Ipratropium/Albuterol Neb 3 ML IH PRN (15:14)
[2021-08-04] MEDS: *HR* HYDROcodone/Acet 5/325 mg TABLET PO PRN (23:18)
[2021-08-05 00:22] LABS: Basophils # 0.1 K/mcL (0.0-0.2); Basophils % 0.6 %; Eosinophils # 0.2 K/mcL (0.0-0.6); Eosinophils % 2.2 %; Hematocrit 35.5 % (35.3-44.9); Hemoglobin 10.8 g/dL (11.5-15.4); Immature Granulocytes % 1.5 % (0-4); Lymphocytes # 1.5 K/mcL (0.6-4.6); Lymphocytes % 14.4 %; Mean Corpuscular HGB Conc 30.4 g/dL (31.6-35.5); Mean Corpuscular Hemoglobin 25.6 pg (28.0-33.3); Mean Corpuscular Volume 84.1 fL (83.0-100.0); Mean Platelet Volume 11.8 fL (9.4-12.4); Monocytes # 0.7 K/mcL (0.0-1.3); Neutrophils # 7.7 K/mcL (1.6-8.9); Platelet Count 254 K/mcL (140-400); Red Blood Count 4.22 M/mcL (3.82-4.97); Red Cell Distribution Width 16.1 % (11.5-14.5); Segmented Neutrophils % 74.3 %; White Blood Count 10.4 K/mcL (4.3-11.1)
[2021-08-05 00:36] LABS: Calcium 8.7 mg/dL (8.6-10.3)
[2021-08-05] MEDS ORDERED: Furosemide 40 MG/4 ML VIAL IVP ONE (08:24)
[2021-08-05] MEDS: *HR* HYDROcodone/Acet 5/325 mg TABLET PO PRN ×2 (08:54→16:25)
[2021-08-05] MEDS: predniSONE 20 MG TABLET PO SCH (09:54)
[2021-08-05] MEDS: Metoprolol XL (24 HR) Succ 50 MG TAB.ER.24H PO SCH (09:54)
[2021-08-05] MEDS: Isosorbide MONOnitrate (24 HR) 60 MG TAB.ER.24H PO SCH ×2 (09:55→20:59)
[2021-08-05] MEDS: Budesonide/Formoterol 160/4.5 1 PUFF INH IH SCH ×2 (10:21→20:15)
[2021-08-05] MEDS: Gabapentin 300 MG CAPSULE PO SCH ×2 (13:18→20:59)
[2021-08-05] MEDS: Furosemide 20 MG/2 ML VIAL IVP SCH (16:25)
[2021-08-05] MEDS ORDERED: *HR* Rivaroxaban 10 MG TABLET PO SCH (17:00)
[2021-08-05] MEDS ORDERED: MethylPREDNISolone 40 MG/ML VIAL IVP SCH (17:11)
[2021-08-06 00:24] LABS: Adenovirus F 40/41 PCR Not detected (Not detect); Astrovirus PCR Not detected (Not detect); C.difficile Toxin A/B Gene PCR Not detected (Not detect); Campylobacter by PCR Not detected (Not detect); Cryptosporidium by PCR Not detected (Not detect); Cyclospora cayetanensis PCR Not detected (Not detect); E. coli O157 by PCR Not detected (Not detect); Entamoeba histolytica PCR Not detected (Not detect); Enteroaggregative E.coli(EAEC) Not detected (Not detect); Enteropathogenic E.coli(EPEC) Not detected (Not detect); Enterotoxigenic E.coli (ETEC) Not detected (Not detect); Giardia lamblia PCR Not detected (Not detect); Norovirus GI/GII PCR Not detected (Not detect); Plesiomonas shigelloides PCR Not detected (Not detect); Rotavirus A PCR Not detected (Not detect); Salmonella PCR Not detected (Not detect); Sapovirus PCR Not detected (Not detect); Shig/EnteroinvasiveE coli EIEC Not detected (Not detect); Shigalike tox-prod E coli STEC Not detected (Not detect); Vibrio PCR Not detected (Not detect); Vibrio cholerae PCR Not detected (Not detect); Yersinia enterocolitica PCR Not detected (Not detect)
[2021-08-06 04:55] LABS: Calcium 8.7 mg/dL (8.6-10.3); Magnesium 1.8 mg/dL (1.6-2.6); Phosphorous 3.7 mg/dL (2.7-4.5); Potassium 4.5 mEq/L (3.5-5.1)
[2021-08-06] MEDS: *HR* HYDROcodone/Acet 5/325 mg TABLET PO PRN ×2 (06:35→13:03)
[2021-08-06] MEDS: Budesonide/Formoterol 160/4.5 1 PUFF INH IH SCH (07:56)
[2021-08-06] MEDS ORDERED: Furosemide 40 MG TABLET PO SCH (08:45)
[2021-08-06] MEDS: Furosemide 20 MG/2 ML VIAL IVP SCH (08:51)
[2021-08-06] MEDS: Gabapentin 300 MG CAPSULE PO SCH (08:57)
[2021-08-06] MEDS: Isosorbide MONOnitrate (24 HR) 60 MG TAB.ER.24H PO SCH (08:58)
[2021-08-06] MEDS: predniSONE 20 MG TABLET PO SCH (08:58)
[2021-08-06] MEDS: Metoprolol XL (24 HR) Succ 50 MG TAB.ER.24H PO SCH (08:58)
[2021-08-06 11:23] VITALS: BP 162/66; PULSE 69; TEMP 98.1; O2SAT 90
== END 2021-08-06 13:47 | disposition hospice, home (50) | DRG 291 ==
LOC: 3BNU 09:04 → EMEROOARM 09:04 → SUATTDRO 15:11 → 3BNU 18:04
PROVIDERS: ADMIT Internal Medicine; ATTEND Internal Medicine

== ENCOUNTER 2021-09-10 04:53 | Inpatient (IN) ==
[2021-09-10] MEDS ORDERED: Ondansetron 4 MG/2 ML VIAL IVP PRN (05:51)
[2021-09-10 05:58] LABS: Nucleated Red Blood Cells 0.3 /100 WBC (0)
[2021-09-10 06:00] LABS: Basophils # 0.1 K/mcL (0.0-0.2); Eosinophils # 0.4 K/mcL (0.0-0.6); Eosinophils % 3.7 %; Hematocrit 38.8 % (35.3-44.9); Hemoglobin 11.2 g/dL (11.5-15.4); Immature Granulocytes % 1.2 % (0-4); Lymphocytes # 2.5 K/mcL (0.6-4.6); Lymphocytes % 22.1 %; Mean Corpuscular HGB Conc 28.9 g/dL (31.6-35.5); Mean Corpuscular Volume 83.1 fL (83.0-100.0); Monocytes # 0.6 K/mcL (0.0-1.3); Monocytes % 5.7 %; Platelet Count 263 K/mcL (140-400); Red Blood Count 4.67 M/mcL (3.82-4.97); Red Cell Distribution Width 17.4 % (11.5-14.5); Segmented Neutrophils % 66.3 %; White Blood Count 11.2 K/mcL (4.3-11.1)
[2021-09-10 06:01] LABS: Neutrophils # 7.4 K/mcL (1.6-8.9)
[2021-09-10 06:16] LABS: Anisocytosis 1+ (Not Present); Platelet Estimate Normal (Normal)
[2021-09-10 06:24] LABS: Alanine Aminotransferase 5 Units/L (7-52); Albumin 3.1 g/dL (3.5-5.7); Albumin/Globulin Ratio 0.9 (1.1-2.2); Alkaline Phosphatase 111 Units/L (34-104); Amylase 25 Units/L (29-103); Aspartate Amino Transferase 7 Units/L (13-39); BUN/Creatinine Ratio 17 (6-26); Bilirubin,Direct 0.1 mg/dL (0.0-0.2); Bilirubin,Indirect 0.2 mg/dL (0.0-1.0); Bilirubin,Total 0.3 mg/dL (0.3-1.0); Blood Urea Nitrogen 18 mg/dL (8-23); Calcium 8.2 mg/dL (8.6-10.3); Carbon Dioxide 25 mEq/L (23-29); Chloride 105 mEq/L (98-107); Globulin 3.4 g/dL (2.4-3.5); Glucose 81 mg/dL (70-105); Lipase < 3 Units/L (11-82); Osmolality,Calculated 285 (280-300); Potassium 4.9 mEq/L (3.5-5.1); Sodium 137 mEq/L (136-145); Total Protein 6.5 g/dL (6.4-8.9); eGFR For African Americans > 60 (> 60); eGFR For Non-African Americans 51 (> 60)
[2021-09-10 06:25] LABS: Influenza A PCR Negative (Negative); Influenza B PCR Negative (Negative); Resp. Syncytial Virus PCR Negative (Negative); SARS-CoV-2 by PCR (In House) Negative (Negative)
[2021-09-10] MEDS ORDERED: Aspirin 325 MG TABLET PO ONE (06:25)
[2021-09-10 06:33] LABS: Bacteria,Urine Few per hpf (None-Few); Bilirubin,Urine Negative (Negative); Blood,Urine Negative (Negative); Clarity,Urine Clear (Clear); Color,Urine Light-Yellow (Yellow); Glucose,Urine (UA) Normal (Normal); Ketones,Urine Negative (Negative); Leukocyte Esterase,Urine Large (Negative); Nitrite,Urine Negative (Negative); PH,Urine 6.5 pH Units (5.0-8.0); Protein,Urine 100 mg/dL (Neg-Trace); Specific Gravity,Urine 1.007 (1.010-1.025); Squamous Epithelial Cell,Urine Few per hpf (None-Few); Urobilinogen,Urine Normal (Normal); WBC,Urine 50-100 per hpf (0-3)
[2021-09-10] MEDS ORDERED: cefTRIAXone 1,000 MG in 0.9 % Sodium Chloride Mini Bag 100 ML IVPB ONE (06:37)
[2021-09-10] MEDS ORDERED: Furosemide 40 MG/4 ML VIAL IVP ONE (06:38)
[2021-09-10] MEDS ORDERED: Acetaminophen 325 MG TABLET PO PRN (08:18)
[2021-09-10] MEDS ORDERED: Naloxone 0.4 MG/ML INJ IVP PRN (08:18)
[2021-09-10] MEDS ORDERED: D5% in Water 1,000 ML IVC PRN (10:55)
[2021-09-10] MEDS ORDERED: Dextrose Gel 15 GM/37.5 ML TUBE PO PRN ×2 (10:55)
[2021-09-10] MEDS ORDERED: *HR* Dextrose 50 % in Water (Syg) 50 ML SYRINGE IVP PRN (10:55)
[2021-09-10] MEDS ORDERED: Insulin LISPRO 300 UNITS/3 ML VIAL SUBQ SCH (11:30)
[2021-09-10] MEDS: Piperacillin/Tazobactam 3.375 GM in 0.9 % Sodium Chloride Mini Bag 100 ML IVPB SCH ×3 (11:55→21:17)
[2021-09-10] MEDS ORDERED: Bisacodyl 10 MG RECTAL SUPPOSITORY RC PRN (12:30)
[2021-09-10] MEDS ORDERED: haloperidoL 1 MG TABLET SL PRN (13:49)
[2021-09-10 14:09] LABS: ABG Base Excess 2 mEq/L (-2 to 3); ABG HCO3 29 mEq/L (21-27); ABG Oxygen Saturation 94 % (95-98); ABG PCO2 56 mmHg (35-45); ABG PH 7.32 pH Units (7.32-7.45); ABG PO2 77 mmHg (85-104); ABG TCO2 31 mEq/L (20-26)
[2021-09-10] MEDS ORDERED: methylPREDNISolone 125 MG/2 ML VIAL IVP ONE (14:16)
[2021-09-10] MEDS: clonazePAM 0.5 MG TABLET PO SCH ×2 (14:33→20:11)
[2021-09-10] MEDS: Gabapentin 400 MG CAPSULE PO SCH ×2 (14:33→20:12)
[2021-09-10] MEDS: Ipratropium/Albuterol Neb 3 ML IH SCH ×2 (16:18→20:14)
[2021-09-10] MEDS: Furosemide 40 MG TABLET PO SCH (16:51)
[2021-09-10] MEDS: Isosorbide MONOnitrate (24 HR) 60 MG TAB.ER.24H PO SCH (20:12)
[2021-09-10] MEDS: *HR* LORazepam 0.5 MG TABLET PO PRN (20:12)
[2021-09-10] MEDS: Budesonide/Formoterol 160/4.5 1 PUFF INH IH SCH (20:14)
[2021-09-10] MEDS: PANTOPRAZOLE SODIUM 40 MG PO SCH (21:18)
[2021-09-10] MEDS: MethylPREDNISolone 40 MG/ML VIAL IVP SCH (23:59)
[2021-09-10] MEDS: *HR* OxyCODONE/APAP 10/325 TABLET PO PRN (23:59)
[2021-09-11] MEDS: Ipratropium/Albuterol Neb 3 ML IH SCH ×6 (00:03→20:41)
[2021-09-11 03:08] LABS: Red Cell Distribution Width 17.3 % (11.5-14.5); White Blood Count 9.7 K/mcL (4.3-11.1)
[2021-09-11 03:09] LABS: Hematocrit 39.5 % (35.3-44.9); Mean Corpuscular HGB Conc 27.8 g/dL (31.6-35.5); Mean Corpuscular Hemoglobin 23.2 pg (28.0-33.3); Mean Corpuscular Volume 83.2 fL (83.0-100.0); Mean Platelet Volume 11.2 fL (9.4-12.4); Platelet Count 235 K/mcL (140-400); Red Blood Count 4.75 M/mcL (3.82-4.97)
[2021-09-11 03:29] LABS: BUN/Creatinine Ratio 18 (6-26); Blood Urea Nitrogen 17 mg/dL (8-23); Calcium 8.3 mg/dL (8.6-10.3); Carbon Dioxide 25 mEq/L (23-29); Chloride 105 mEq/L (98-107); Glucose 293 mg/dL (70-105); Osmolality,Calculated 296 (280-300); Potassium 4.5 mEq/L (3.5-5.1); Sodium 137 mEq/L (136-145); eGFR For African Americans > 60 (> 60); eGFR For Non-African Americans 59 (> 60)
[2021-09-11] MEDS: *HR* LORazepam 0.5 MG TABLET PO PRN ×3 (05:54→21:22)
[2021-09-11] MEDS: MethylPREDNISolone 40 MG/ML VIAL IVP SCH ×2 (05:54→18:39)
[2021-09-11] MEDS: Piperacillin/Tazobactam 3.375 GM in 0.9 % Sodium Chloride Mini Bag 100 ML IVPB SCH ×3 (05:55→21:16)
[2021-09-11] MEDS: *HR* OxyCODONE/APAP 10/325 TABLET PO PRN ×3 (06:04→18:38)
[2021-09-11] MEDS: Budesonide/Formoterol 160/4.5 1 PUFF INH IH SCH ×2 (07:23→20:41)
[2021-09-11] MEDS ORDERED: predniSONE 20 MG TABLET PO SCH (09:00)
[2021-09-11] MEDS: Metoprolol XL (24 HR) Succ 50 MG TAB.ER.24H PO SCH (10:09)
[2021-09-11] MEDS: Gabapentin 400 MG CAPSULE PO SCH ×3 (10:09→21:16)
[2021-09-11] MEDS: *HR* Rivaroxaban 10 MG TABLET PO SCH (10:09)
[2021-09-11] MEDS: clonazePAM 0.5 MG TABLET PO SCH ×3 (10:09→21:16)
[2021-09-11] MEDS: Isosorbide MONOnitrate (24 HR) 60 MG TAB.ER.24H PO SCH ×2 (10:09→21:16)
[2021-09-11] MEDS: Furosemide 40 MG TABLET PO SCH ×2 (10:18→18:39)
[2021-09-11] MEDS ORDERED: Nitroglycerin 0.4 MG TAB.SUBL SL PRN (18:55)
[2021-09-11] MEDS ORDERED: Perflutren Lipid Microsphere 1.3 ML in 0.9 % Sodium Chloride 8.7 ML IVP PRN (18:55)
[2021-09-12] MEDS: *HR* OxyCODONE/APAP 10/325 TABLET PO PRN ×4 (00:20→20:03)
[2021-09-12] MEDS: Ipratropium/Albuterol Neb 3 ML IH SCH ×7 (00:25→23:22)
[2021-09-12] MEDS: *HR* LORazepam 0.5 MG TABLET PO PRN ×4 (04:42→21:50)
[2021-09-12] MEDS: MethylPREDNISolone 40 MG/ML VIAL IVP SCH ×2 (04:43→17:36)
[2021-09-12] MEDS: Piperacillin/Tazobactam 3.375 GM in 0.9 % Sodium Chloride Mini Bag 100 ML IVPB SCH ×2 (04:48→12:34)
[2021-09-12 07:35] LABS: Basophils % 0.4 %; Hemoglobin 10.9 g/dL (11.5-15.4); Immature Granulocytes % 0.5 % (0-4); Mean Corpuscular HGB Conc 30.3 g/dL (31.6-35.5); Mean Corpuscular Hemoglobin 24.3 pg (28.0-33.3); Mean Corpuscular Volume 80.2 fL (83.0-100.0); Mean Platelet Volume 10.7 fL (9.4-12.4); Monocytes % 4.6 %; Platelet Count 251 K/mcL (140-400); Red Blood Count 4.49 M/mcL (3.82-4.97); Red Cell Distribution Width 16.8 % (11.5-14.5); Segmented Neutrophils % 85.5 %; White Blood Count 13.4 K/mcL (4.3-11.1)
[2021-09-12 07:36] LABS: Basophils # 0.1 K/mcL (0.0-0.2); Lymphocytes # 1.2 K/mcL (0.6-4.6); Monocytes # 0.6 K/mcL (0.0-1.3); Neutrophils # 11.4 K/mcL (1.6-8.9)
[2021-09-12] MEDS: PANTOPRAZOLE SODIUM 40 MG PO SCH (07:41)
[2021-09-12 07:57] LABS: Alanine Aminotransferase 5 Units/L (7-52); Albumin 3.1 g/dL (3.5-5.7); Albumin/Globulin Ratio 0.9 (1.1-2.2); Alkaline Phosphatase 90 Units/L (34-104); Aspartate Amino Transferase 6 Units/L (13-39); BUN/Creatinine Ratio 26 (6-26); Bilirubin,Total 0.4 mg/dL (0.3-1.0); Blood Urea Nitrogen 23 mg/dL (8-23); Carbon Dioxide 26 mEq/L (23-29); Chloride 101 mEq/L (98-107); Globulin 3.3 g/dL (2.4-3.5); Glucose 275 mg/dL (70-105); Osmolality,Calculated 295 (280-300); Sodium 136 mEq/L (136-145); Total Protein 6.4 g/dL (6.4-8.9); eGFR For African Americans > 60 (> 60); eGFR For Non-African Americans > 60 (> 60)
[2021-09-12] MEDS: *HR* Rivaroxaban 10 MG TABLET PO SCH (08:32)
[2021-09-12] MEDS: Gabapentin 400 MG CAPSULE PO SCH ×3 (08:32→20:04)
[2021-09-12] MEDS: clonazePAM 0.5 MG TABLET PO SCH ×3 (08:32→20:03)
[2021-09-12] MEDS: Metoprolol XL (24 HR) Succ 50 MG TAB.ER.24H PO SCH (08:32)
[2021-09-12] MEDS: Isosorbide MONOnitrate (24 HR) 60 MG TAB.ER.24H PO SCH ×2 (08:32→20:03)
[2021-09-12] MEDS: Furosemide 40 MG TABLET PO SCH ×2 (08:32→16:35)
[2021-09-12] MEDS: Budesonide/Formoterol 160/4.5 1 PUFF INH IH SCH ×2 (09:08→20:11)
[2021-09-12] MEDS ORDERED: *HR* Heparin 5,000 UNIT/ML VIAL IVP PRN ×2 (11:47)
[2021-09-12] MEDS ORDERED: *HR* Heparin 5,000 UNIT/ML VIAL IVP ONE (11:47)
[2021-09-12] MEDS: Ertapenem 1,000 MG in 0.9 % Sodium Chloride Mini Bag 100 ML IVPB SCH (12:58)
[2021-09-12] MEDS: Heparin 25,000UNIT/250ML 1/2NS 25,000 UNIT/250 ML IV.SOLN IVC SCH (13:52)
[2021-09-12 20:06] LABS: Hemoglobin 10.5 g/dL (11.5-15.4); Mean Corpuscular HGB Conc 29.2 g/dL (31.6-35.5); Mean Corpuscular Hemoglobin 23.7 pg (28.0-33.3); Mean Corpuscular Volume 81.3 fL (83.0-100.0); Mean Platelet Volume 11.7 fL (9.4-12.4); Platelet Count 256 K/mcL (140-400); Red Blood Count 4.43 M/mcL (3.82-4.97); White Blood Count 12.2 K/mcL (4.3-11.1)
[2021-09-12 20:09] LABS: Heparin anti-factor XA UFH 0.67 IU/mL (0.30-0.70)
[2021-09-12 20:10] LABS: INR 1.2; Prothrombin Time 13.1 Seconds (9.4-12.1)
[2021-09-13] MEDS: *HR* OxyCODONE/APAP 10/325 TABLET PO PRN ×4 (03:00→23:51)
[2021-09-13] MEDS: *HR* LORazepam 0.5 MG TABLET PO PRN ×3 (03:32→20:05)
[2021-09-13 03:43] LABS: Basophils % 0.3 %; Eosinophils # 0.1 K/mcL (0.0-0.6); Eosinophils % 0.6 %; Hematocrit 35.4 % (35.3-44.9); Hemoglobin 10.5 g/dL (11.5-15.4); Immature Granulocytes % 0.6 % (0-4); Lymphocytes # 1.7 K/mcL (0.6-4.6); Lymphocytes % 15.7 %; Mean Corpuscular HGB Conc 29.7 g/dL (31.6-35.5); Mean Corpuscular Hemoglobin 24.1 pg (28.0-33.3); Mean Corpuscular Volume 81.2 fL (83.0-100.0); Mean Platelet Volume 10.9 fL (9.4-12.4); Monocytes # 0.7 K/mcL (0.0-1.3); Monocytes % 6.2 %; Neutrophils # 8.4 K/mcL (1.6-8.9); Platelet Count 244 K/mcL (140-400); Red Blood Count 4.36 M/mcL (3.82-4.97); Red Cell Distribution Width 16.9 % (11.5-14.5); Segmented Neutrophils % 76.6 %; White Blood Count 10.9 K/mcL (4.3-11.1)
[2021-09-13 04:01] LABS: BUN/Creatinine Ratio 26 (6-26); Blood Urea Nitrogen 26 mg/dL (8-23); Calcium 8.8 mg/dL (8.6-10.3); Carbon Dioxide 29 mEq/L (23-29); Chloride 98 mEq/L (98-107); Glucose 428 mg/dL (70-105); Osmolality,Calculated 299 (280-300); Sodium 133 mEq/L (136-145); eGFR For African Americans > 60 (> 60); eGFR For Non-African Americans 57 (> 60)
[2021-09-13] MEDS: Ipratropium/Albuterol Neb 3 ML IH SCH ×6 (04:03→23:19)
[2021-09-13] MEDS: MethylPREDNISolone 40 MG/ML VIAL IVP SCH ×2 (05:58→17:50)
[2021-09-13 06:04] LABS: Troponin I 0.08 ng/mL (< 0.04)
[2021-09-13] MEDS: Heparin 25,000UNIT/250ML 1/2NS 25,000 UNIT/250 ML IV.SOLN IVC SCH (08:02)
[2021-09-13] MEDS: Gabapentin 400 MG CAPSULE PO SCH ×3 (08:16→20:05)
[2021-09-13] MEDS: Isosorbide MONOnitrate (24 HR) 60 MG TAB.ER.24H PO SCH ×2 (08:16→20:05)
[2021-09-13] MEDS: Furosemide 40 MG TABLET PO SCH ×2 (08:17→17:51)
[2021-09-13] MEDS: Metoprolol XL (24 HR) Succ 50 MG TAB.ER.24H PO SCH (08:17)
[2021-09-13] MEDS: clonazePAM 0.5 MG TABLET PO SCH ×3 (08:17→20:05)
[2021-09-13] MEDS: Budesonide/Formoterol 160/4.5 1 PUFF INH IH SCH ×2 (09:07→20:15)
[2021-09-13] MEDS ORDERED: Isovue-370 500 ML BOTTLE IVP ONE (09:48)
[2021-09-13] MEDS ORDERED: Isovue-370 500 ML BOTTLE PO ONE (12:28)
[2021-09-13] MEDS: Ertapenem 1,000 MG in 0.9 % Sodium Chloride Mini Bag 100 ML IVPB SCH (13:01)
[2021-09-13] MEDS ORDERED: D5% in Water 1,000 ML IVC PRN (15:07)
[2021-09-13] MEDS ORDERED: Dextrose Gel 15 GM/37.5 ML TUBE PO PRN ×2 (15:07)
[2021-09-13] MEDS ORDERED: *HR* Dextrose 50 % in Water (Syg) 50 ML SYRINGE IVP PRN (15:07)
[2021-09-13] MEDS ORDERED: Insulin DETEMIR 100 UNIT/ML X5UNITS SUBQ ONE (17:24)
[2021-09-13] MEDS: Insulin LISPRO 300 UNITS/3 ML VIAL SUBQ SCH (17:50)
[2021-09-13] MEDS ORDERED: Insulin LISPRO 300 UNITS/3 ML VIAL SUBQ SCH (21:00)
[2021-09-13] MEDS ORDERED: Insulin DETEMIR 100 UNIT/ML X5UNITS SUBQ SCH (21:00)
[2021-09-13 23:02] LABS: Estimated Average Glucose 186 mg/dl; Hemoglobin A1C 8.1 %
[2021-09-14] MEDS: *HR* LORazepam 0.5 MG TABLET PO PRN ×2 (00:08→04:15)
[2021-09-14] MEDS: Melatonin 3 MG TABLET PO PRN (02:25)
[2021-09-14] MEDS: Ipratropium/Albuterol Neb 3 ML IH SCH ×6 (03:06→19:54)
[2021-09-14] MEDS: MethylPREDNISolone 40 MG/ML VIAL IVP SCH ×2 (06:27→16:59)
[2021-09-14 06:40] LABS: Basophils % 0.4 %; Eosinophils % 0.1 %; Hematocrit 34.5 % (35.3-44.9); Immature Granulocytes % 0.9 % (0-4); Lymphocytes # 2.2 K/mcL (0.6-4.6); Mean Corpuscular Hemoglobin 23.1 pg (28.0-33.3); Mean Corpuscular Volume 79.9 fL (83.0-100.0); Mean Platelet Volume 10.9 fL (9.4-12.4); Monocytes # 0.6 K/mcL (0.0-1.3); Monocytes % 6.4 %; Neutrophils # 6.9 K/mcL (1.6-8.9); Platelet Count 231 K/mcL (140-400); Red Blood Count 4.32 M/mcL (3.82-4.97); Red Cell Distribution Width 16.3 % (11.5-14.5); Segmented Neutrophils % 70.2 %; White Blood Count 9.8 K/mcL (4.3-11.1)
[2021-09-14 06:59] LABS: BUN/Creatinine Ratio 36 (6-26); Blood Urea Nitrogen 36 mg/dL (8-23); Calcium 8.7 mg/dL (8.6-10.3); Carbon Dioxide 29 mEq/L (23-29); Chloride 99 mEq/L (98-107); Glucose 380 mg/dL (70-105); Osmolality,Calculated 300 (280-300); Potassium 4.1 mEq/L (3.5-5.1); Sodium 133 mEq/L (136-145); eGFR For African Americans > 60 (> 60); eGFR For Non-African Americans 56 (> 60)
[2021-09-14] MEDS: Isosorbide MONOnitrate (24 HR) 60 MG TAB.ER.24H PO SCH ×2 (07:38→21:32)
[2021-09-14] MEDS: clonazePAM 0.5 MG TABLET PO SCH ×3 (07:38→21:32)
[2021-09-14] MEDS: Gabapentin 400 MG CAPSULE PO SCH ×3 (07:38→21:32)
[2021-09-14] MEDS: Furosemide 40 MG TABLET PO SCH ×2 (07:38→16:59)
[2021-09-14] MEDS: Metoprolol XL (24 HR) Succ 50 MG TAB.ER.24H PO SCH (07:38)
[2021-09-14] MEDS: Insulin LISPRO 300 UNITS/3 ML VIAL SUBQ SCH ×5 (07:43→21:37)
[2021-09-14] MEDS: Budesonide/Formoterol 160/4.5 1 PUFF INH IH SCH ×2 (08:15→19:55)
[2021-09-14] MEDS: Tiotropium 10 INH DOSE IH SCH (08:22)
[2021-09-14] MEDS ORDERED: Insulin DETEMIR 100 UNIT/ML X5UNITS SUBQ SCH (09:00)
[2021-09-14] MEDS ORDERED: Lidocaine Viscous Oral Soln 15 ML SOLUTION MM PRN (09:37)
[2021-09-14] MEDS ORDERED: 0.9 % Sodium Chloride 500 ML IVC ONE (09:38)
[2021-09-14] MEDS: *HR* FentaNYL (PF) 100 MCG/2 ML VIAL IVP PRN ×3 (10:20→10:30)
[2021-09-14] MEDS: *HR* Midazolam HCl 5 MG/5 ML VIAL IVP PRN ×3 (10:20→10:30)
[2021-09-14] MEDS ORDERED: Insulin LISPRO 300 UNITS/3 ML VIAL SUBQ SCH (12:17)
[2021-09-14] MEDS: Ertapenem 1,000 MG in 0.9 % Sodium Chloride Mini Bag 100 ML IVPB SCH (13:59)
[2021-09-14] MEDS: Heparin 25,000UNIT/250ML 1/2NS 25,000 UNIT/250 ML IV.SOLN IVC SCH ×2 (15:23→18:50)
[2021-09-14] MEDS: *HR* OxyCODONE/APAP 10/325 TABLET PO PRN (17:34)
[2021-09-14] MEDS: Insulin DETEMIR 100 UNIT/ML X5UNITS SUBQ SCH (21:37)
[2021-09-15] MEDS: *HR* LORazepam 0.5 MG TABLET PO PRN ×2 (00:21→05:06)
[2021-09-15] MEDS: Ipratropium/Albuterol Neb 3 ML IH SCH ×5 (01:34→20:40)
[2021-09-15] MEDS: Ondansetron ODT 4 MG TAB.RAPDIS SL PRN (05:06)
[2021-09-15] MEDS: MethylPREDNISolone 40 MG/ML VIAL IVP SCH (05:07)
[2021-09-15 05:46] LABS: Red Cell Distribution Width 16.2 % (11.5-14.5)
[2021-09-15 05:48] LABS: Hematocrit 37.6 % (35.3-44.9); Mean Corpuscular HGB Conc 29.3 g/dL (31.6-35.5); Mean Corpuscular Hemoglobin 23.5 pg (28.0-33.3); Mean Corpuscular Volume 80.2 fL (83.0-100.0); Mean Platelet Volume 11.6 fL (9.4-12.4); Platelet Count 235 K/mcL (140-400); Red Blood Count 4.69 M/mcL (3.82-4.97); White Blood Count 11.4 K/mcL (4.3-11.1)
[2021-09-15 06:19] LABS: Albumin 3.1 g/dL (3.5-5.7); Bilirubin,Total 0.3 mg/dL (0.3-1.0); Calcium 8.8 mg/dL (8.6-10.3); Potassium 4.2 mEq/L (3.5-5.1); Total Protein 6.1 g/dL (6.4-8.9)
[2021-09-15 06:35] LABS: Lymphocytes # 2.3 K/mcL (0.6-4.6); Monocytes # 0.7 K/mcL (0.0-1.3); Neutrophils # 8.4 K/mcL (1.6-8.9)
[2021-09-15 06:36] LABS: Platelet Estimate Normal (Normal)
[2021-09-15] MEDS: *HR* OxyCODONE/APAP 10/325 TABLET PO PRN ×2 (07:58→14:56)
[2021-09-15] MEDS: Isosorbide MONOnitrate (24 HR) 60 MG TAB.ER.24H PO SCH ×2 (07:58→20:22)
[2021-09-15] MEDS: amLODIPine 5 MG TABLET PO SCH (07:59)
[2021-09-15] MEDS: Furosemide 40 MG TABLET PO SCH (07:59)
[2021-09-15] MEDS: Metoprolol XL (24 HR) Succ 50 MG TAB.ER.24H PO SCH (07:59)
[2021-09-15] MEDS: clonazePAM 0.5 MG TABLET PO SCH ×3 (08:00→20:22)
[2021-09-15] MEDS: Insulin LISPRO 300 UNITS/3 ML VIAL SUBQ SCH ×4 (08:07→22:21)
[2021-09-15] MEDS: Tiotropium 10 INH DOSE IH SCH (10:46)
[2021-09-15] MEDS: Budesonide/Formoterol 160/4.5 1 PUFF INH IH SCH ×2 (10:46→20:40)
[2021-09-15] MEDS: Insulin DETEMIR 100 UNIT/ML X5UNITS SUBQ SCH ×2 (11:49→22:19)
[2021-09-15] MEDS: Heparin 25,000UNIT/250ML 1/2NS 25,000 UNIT/250 ML IV.SOLN IVC SCH ×2 (14:00→17:24)
[2021-09-15] MEDS: Ertapenem 1,000 MG in 0.9 % Sodium Chloride Mini Bag 100 ML IVPB SCH (14:01)
[2021-09-15] MEDS: Gabapentin 300 MG CAPSULE PO SCH ×2 (14:56→20:22)
[2021-09-15 17:03] LABS: ABG Base Excess 4 mEq/L (-2 to 3); ABG HCO3 27 mEq/L (21-27); ABG Oxygen Saturation 98 % (95-98); ABG PCO2 31 mmHg (35-45); ABG PH 7.54 pH Units (7.32-7.45); ABG PO2 84 mmHg (85-104); ABG TCO2 27 mEq/L (20-26)
[2021-09-15] MEDS: Estrogens, Conjugated CREAM 30 GM TUBE VG SCH (22:20)
[2021-09-16 02:52] LABS: Basophils # 0.1 K/mcL (0.0-0.2); Basophils % 0.5 %; Eosinophils # 0.1 K/mcL (0.0-0.6); Eosinophils % 0.5 %; Hematocrit 35.8 % (35.3-44.9); Hemoglobin 10.6 g/dL (11.5-15.4); Immature Granulocytes % 1.5 % (0-4); Lymphocytes # 3.7 K/mcL (0.6-4.6); Lymphocytes % 27.1 %; Mean Corpuscular HGB Conc 29.6 g/dL (31.6-35.5); Mean Corpuscular Hemoglobin 23.7 pg (28.0-33.3); Mean Corpuscular Volume 79.9 fL (83.0-100.0); Mean Platelet Volume 10.9 fL (9.4-12.4); Monocytes # 0.8 K/mcL (0.0-1.3); Monocytes % 5.7 %; Neutrophils # 8.8 K/mcL (1.6-8.9); Platelet Count 213 K/mcL (140-400); Red Blood Count 4.48 M/mcL (3.82-4.97); Red Cell Distribution Width 16.3 % (11.5-14.5); Segmented Neutrophils % 64.7 %; White Blood Count 13.6 K/mcL (4.3-11.1)
[2021-09-16 03:13] LABS: Alanine Aminotransferase 7 Units/L (7-52); Alkaline Phosphatase 71 Units/L (34-104); Aspartate Amino Transferase 7 Units/L (13-39); BUN/Creatinine Ratio 41 (6-26); Bilirubin,Total 0.2 mg/dL (0.3-1.0); Blood Urea Nitrogen 45 mg/dL (8-23); Calcium 8.7 mg/dL (8.6-10.3); Carbon Dioxide 29 mEq/L (23-29); Chloride 104 mEq/L (98-107); Globulin 2.9 g/dL (2.4-3.5); Glucose 228 mg/dL (70-105); Osmolality,Calculated 303 (280-300); Sodium 137 mEq/L (136-145); Total Protein 5.9 g/dL (6.4-8.9); eGFR For African Americans > 60 (> 60); eGFR For Non-African Americans 50 (> 60)
[2021-09-16] MEDS: Ipratropium/Albuterol Neb 3 ML IH SCH ×4 (03:51→20:23)
[2021-09-16] MEDS: *HR* OxyCODONE/APAP 10/325 TABLET PO PRN ×2 (05:04→15:25)
[2021-09-16] MEDS ORDERED: predniSONE 20 MG TABLET PO SCH (09:00)
[2021-09-16] MEDS: Furosemide 40 MG TABLET PO SCH (09:08)
[2021-09-16] MEDS: clonazePAM 0.5 MG TABLET PO SCH ×3 (09:08→20:34)
[2021-09-16] MEDS: Isosorbide MONOnitrate (24 HR) 60 MG TAB.ER.24H PO SCH ×2 (09:08→20:34)
[2021-09-16] MEDS: Gabapentin 300 MG CAPSULE PO SCH ×3 (09:08→20:34)
[2021-09-16] MEDS: amLODIPine 5 MG TABLET PO SCH (09:08)
[2021-09-16] MEDS: Metoprolol XL (24 HR) Succ 50 MG TAB.ER.24H PO SCH (09:09)
[2021-09-16] MEDS: Insulin LISPRO 300 UNITS/3 ML VIAL SUBQ SCH ×4 (09:09→20:33)
[2021-09-16] MEDS: Heparin 25,000UNIT/250ML 1/2NS 25,000 UNIT/250 ML IV.SOLN IVC SCH (09:11)
[2021-09-16] MEDS: Insulin DETEMIR 100 UNIT/ML X5UNITS SUBQ SCH ×2 (09:11→20:34)
[2021-09-16] MEDS: Budesonide/Formoterol 160/4.5 1 PUFF INH IH SCH ×2 (11:14→20:24)
[2021-09-16] MEDS: Tiotropium 10 INH DOSE IH SCH (11:15)
[2021-09-16 15:37] LABS: ABG Base Excess 3 mEq/L (-2 to 3); ABG HCO3 29 mEq/L (21-27); ABG Oxygen Saturation 91 % (95-98); ABG PCO2 51 mmHg (35-45); ABG PH 7.37 pH Units (7.32-7.45); ABG PO2 63 mmHg (85-104); ABG TCO2 31 mEq/L (20-26)
[2021-09-16] MEDS: *HR* LORazepam 0.5 MG TABLET PO PRN (18:24)
[2021-09-16] MEDS: Estrogens, Conjugated CREAM 30 GM TUBE VG SCH (20:34)
[2021-09-17] MEDS: *HR* OxyCODONE/APAP 10/325 TABLET PO PRN ×3 (01:22→23:37)
[2021-09-17] MEDS: Heparin 25,000UNIT/250ML 1/2NS 25,000 UNIT/250 ML IV.SOLN IVC SCH ×2 (02:06→19:45)
[2021-09-17] MEDS: *HR* LORazepam 0.5 MG TABLET PO PRN (02:06)
[2021-09-17] MEDS: Ipratropium/Albuterol Neb 3 ML IH SCH ×5 (02:10→23:52)
[2021-09-17 03:35] LABS: Hematocrit 37.1 % (35.3-44.9); Hemoglobin 10.9 g/dL (11.5-15.4); Mean Corpuscular HGB Conc 29.4 g/dL (31.6-35.5); Mean Corpuscular Hemoglobin 23.7 pg (28.0-33.3); Mean Corpuscular Volume 80.8 fL (83.0-100.0); Mean Platelet Volume 11.4 fL (9.4-12.4); Platelet Count 207 K/mcL (140-400); Red Blood Count 4.59 M/mcL (3.82-4.97); Red Cell Distribution Width 16.4 % (11.5-14.5); White Blood Count 14.8 K/mcL (4.3-11.1)
[2021-09-17 03:55] LABS: BUN/Creatinine Ratio 46 (6-26); Blood Urea Nitrogen 44 mg/dL (8-23); Calcium 8.7 mg/dL (8.6-10.3); Carbon Dioxide 28 mEq/L (23-29); Chloride 104 mEq/L (98-107); Glucose 273 mg/dL (70-105); Osmolality,Calculated 301 (280-300); Potassium 3.9 mEq/L (3.5-5.1); Sodium 135 mEq/L (136-145); eGFR For African Americans > 60 (> 60); eGFR For Non-African Americans 59 (> 60)
[2021-09-17] MEDS: Furosemide 40 MG TABLET PO SCH (09:04)
[2021-09-17] MEDS: clonazePAM 0.5 MG TABLET PO SCH ×3 (09:06→20:23)
[2021-09-17] MEDS: amLODIPine 5 MG TABLET PO SCH (09:06)
[2021-09-17] MEDS: Isosorbide MONOnitrate (24 HR) 60 MG TAB.ER.24H PO SCH ×2 (09:06→20:23)
[2021-09-17] MEDS: Gabapentin 300 MG CAPSULE PO SCH ×3 (09:07→20:24)
[2021-09-17] MEDS: Metoprolol XL (24 HR) Succ 50 MG TAB.ER.24H PO SCH (09:08)
[2021-09-17] MEDS: Insulin DETEMIR 100 UNIT/ML X5UNITS SUBQ SCH ×2 (09:10→23:10)
[2021-09-17] MEDS: Insulin LISPRO 300 UNITS/3 ML VIAL SUBQ SCH ×4 (09:16→21:57)
[2021-09-17] MEDS: Tiotropium 10 INH DOSE IH SCH (11:25)
[2021-09-17] MEDS: Budesonide/Formoterol 160/4.5 1 PUFF INH IH SCH ×2 (11:25→20:15)
[2021-09-17] MEDS: Estrogens, Conjugated CREAM 30 GM TUBE VG SCH (20:23)
[2021-09-18] MEDS: Ipratropium/Albuterol Neb 3 ML IH SCH ×6 (03:56→23:46)
[2021-09-18] MEDS: Budesonide/Formoterol 160/4.5 1 PUFF INH IH SCH ×2 (07:28→20:24)
[2021-09-18] MEDS: Tiotropium 10 INH DOSE IH SCH (07:28)
[2021-09-18] MEDS: amLODIPine 5 MG TABLET PO SCH (08:39)
[2021-09-18] MEDS: Isosorbide MONOnitrate (24 HR) 60 MG TAB.ER.24H PO SCH ×2 (08:40→20:28)
[2021-09-18] MEDS: Gabapentin 300 MG CAPSULE PO SCH ×3 (08:40→20:28)
[2021-09-18] MEDS: Metoprolol XL (24 HR) Succ 50 MG TAB.ER.24H PO SCH (08:40)
[2021-09-18] MEDS: Furosemide 40 MG TABLET PO SCH (08:40)
[2021-09-18] MEDS: *HR* OxyCODONE/APAP 10/325 TABLET PO PRN ×2 (08:41→16:55)
[2021-09-18] MEDS: clonazePAM 0.5 MG TABLET PO SCH ×3 (08:41→20:28)
[2021-09-18] MEDS: Insulin LISPRO 300 UNITS/3 ML VIAL SUBQ SCH ×4 (08:44→20:45)
[2021-09-18] MEDS: Heparin 25,000UNIT/250ML 1/2NS 25,000 UNIT/250 ML IV.SOLN IVC SCH (13:58)
[2021-09-18] MEDS ORDERED: ISOVUE-370 200 ML INFUS..BTL ONE (14:45)
[2021-09-18] MEDS ORDERED: Heparin 1,000 UNITS/500 mL 500 ML ONE (14:45)
[2021-09-18] MEDS ORDERED: 0.9 % Sodium Chloride 1,000 ML ONE ×2 (14:45→15:41)
[2021-09-18] MEDS ORDERED: Nitroglycerin 1,000 MCG/5 ML VIAL IV ONE (14:45)
[2021-09-18] MEDS ORDERED: *HR* Heparin 10,000 UNIT/10 ML VIAL ONE (14:45)
[2021-09-18] MEDS ORDERED: *HR* Midazolam HCl 5 MG/5 ML VIAL IVP ONE (15:27)
[2021-09-18] MEDS ORDERED: *HR* FentaNYL (PF) 100 MCG/2 ML VIAL ONE (15:27)
[2021-09-18] MEDS: *HR* FentaNYL PATCH 12 MCG PATCH TD SCH (18:12)
[2021-09-18 19:23] LABS: Chol/HDL Ratio 2.9 (0-4.9)
[2021-09-18 19:31] LABS: Estimated Average Glucose 197 mg/dl; Hemoglobin A1C 8.5 %
[2021-09-18] MEDS: Estrogens, Conjugated CREAM 30 GM TUBE VG SCH (20:32)
[2021-09-18] MEDS: Insulin DETEMIR 100 UNIT/ML X5UNITS SUBQ SCH (20:45)
[2021-09-18 23:43] LABS: ABG Base Excess 4 mEq/L (-2 to 3); ABG HCO3 32 mEq/L (21-27); ABG Oxygen Saturation 93 % (95-98); ABG PCO2 59 mmHg (35-45); ABG PH 7.34 pH Units (7.32-7.45); ABG PO2 74 mmHg (85-104); ABG TCO2 33 mEq/L (20-26)
[2021-09-19 02:45] LABS: Bacteria,Urine Few per hpf (None-Few); Bilirubin,Urine Negative (Negative); Blood,Urine Trace (Negative); Budding Yeast,Urine Few per hpf (None Seen); Clarity,Urine Turbid (Clear); Color,Urine Yellow (Yellow); Glucose,Urine (UA) 70 mg/dL (Normal); Hyaline Casts,Urine Few per lpf (None Seen); Ketones,Urine Negative (Negative); Leukocyte Esterase,Urine Large (Negative); Mucus,Urine Few per lpf (None-Few); Nitrite,Urine Negative (Negative); Protein,Urine 200 mg/dL (Neg-Trace); Specific Gravity,Urine 1.029 (1.010-1.025); Squamous Epithelial Cell,Urine Moderate per hpf (None-Few); Urobilinogen,Urine Normal (Normal); WBC,Urine TNTC per hpf (0-3)
[2021-09-19] MEDS: *HR* OxyCODONE/APAP 10/325 TABLET PO PRN ×2 (03:18→15:10)
[2021-09-19] MEDS: Ipratropium/Albuterol Neb 3 ML IH SCH ×6 (03:29→23:31)
[2021-09-19 04:07] LABS: Red Cell Distribution Width 17.2 % (11.5-14.5)
[2021-09-19 04:09] LABS: Basophils # 0.1 K/mcL (0.0-0.2); Basophils % 0.8 %; Eosinophils # 0.4 K/mcL (0.0-0.6); Eosinophils % 2.8 %; Hematocrit 37.7 % (35.3-44.9); Hemoglobin 10.7 g/dL (11.5-15.4); Immature Granulocytes % 2.5 % (0-4); Lymphocytes # 2.3 K/mcL (0.6-4.6); Lymphocytes % 17.5 %; Mean Corpuscular HGB Conc 28.4 g/dL (31.6-35.5); Mean Corpuscular Hemoglobin 23.4 pg (28.0-33.3); Mean Corpuscular Volume 82.3 fL (83.0-100.0); Mean Platelet Volume 11.5 fL (9.4-12.4); Monocytes # 0.8 K/mcL (0.0-1.3); Monocytes % 5.8 %; Neutrophils # 9.2 K/mcL (1.6-8.9); Platelet Count 187 K/mcL (140-400); Red Blood Count 4.58 M/mcL (3.82-4.97); Segmented Neutrophils % 70.6 %
[2021-09-19 04:22] LABS: BUN/Creatinine Ratio 44 (6-26); Blood Urea Nitrogen 42 mg/dL (8-23); Calcium 8.5 mg/dL (8.6-10.3); Carbon Dioxide 28 mEq/L (23-29); Chloride 102 mEq/L (98-107); Glucose 309 mg/dL (70-105); Osmolality,Calculated 304 (280-300); Sodium 136 mEq/L (136-145); eGFR For African Americans > 60 (> 60); eGFR For Non-African Americans 59 (> 60)
[2021-09-19] MEDS: Insulin DETEMIR 100 UNIT/ML X5UNITS SUBQ SCH ×3 (05:00→20:12)
[2021-09-19 05:25] LABS: Estimated Average Glucose 197 mg/dl; Hemoglobin A1C 8.5 %
[2021-09-19] MEDS: Budesonide/Formoterol 160/4.5 1 PUFF INH IH SCH ×2 (07:44→19:56)
[2021-09-19] MEDS: Tiotropium 10 INH DOSE IH SCH (07:45)
[2021-09-19] MEDS: Metoprolol XL (24 HR) Succ 50 MG TAB.ER.24H PO SCH (08:46)
[2021-09-19] MEDS: Isosorbide MONOnitrate (24 HR) 60 MG TAB.ER.24H PO SCH ×2 (08:46→20:12)
[2021-09-19] MEDS: Gabapentin 300 MG CAPSULE PO SCH ×3 (08:46→20:12)
[2021-09-19] MEDS: Insulin LISPRO 300 UNITS/3 ML VIAL SUBQ SCH ×4 (08:47→20:13)
[2021-09-19] MEDS: amLODIPine 5 MG TABLET PO SCH (08:47)
[2021-09-19] MEDS: clonazePAM 0.5 MG TABLET PO SCH ×3 (08:47→20:12)
[2021-09-19] MEDS: Furosemide 40 MG/4 ML VIAL IVP SCH ×2 (08:55→17:52)
[2021-09-19] MEDS: Estrogens, Conjugated CREAM 30 GM TUBE VG SCH (20:13)
[2021-09-20] MEDS: Ipratropium/Albuterol Neb 3 ML IH SCH ×6 (03:28→23:53)
[2021-09-20 05:49] LABS: Basophils # 0.2 K/mcL (0.0-0.2); Basophils % 1.2 %; Eosinophils # 0.5 K/mcL (0.0-0.6); Eosinophils % 3.6 %; Hematocrit 36.9 % (35.3-44.9); Hemoglobin 10.9 g/dL (11.5-15.4); Immature Granulocytes % 2.5 % (0-4); Lymphocytes # 2.3 K/mcL (0.6-4.6); Lymphocytes % 17.9 %; Mean Corpuscular HGB Conc 29.5 g/dL (31.6-35.5); Mean Corpuscular Hemoglobin 24.1 pg (28.0-33.3); Mean Corpuscular Volume 81.5 fL (83.0-100.0); Mean Platelet Volume 12.2 fL (9.4-12.4); Monocytes # 0.8 K/mcL (0.0-1.3); Monocytes % 6.3 %; Neutrophils # 8.9 K/mcL (1.6-8.9); Platelet Count 181 K/mcL (140-400); Red Blood Count 4.53 M/mcL (3.82-4.97); Red Cell Distribution Width 17.1 % (11.5-14.5); Segmented Neutrophils % 68.5 %; White Blood Count 12.9 K/mcL (4.3-11.1)
[2021-09-20 05:53] LABS: Prothrombin Time 10.8 Seconds (9.4-12.1)
[2021-09-20 06:08] LABS: Calcium 8.7 mg/dL (8.6-10.3)
[2021-09-20] MEDS: Tiotropium 10 INH DOSE IH SCH (07:28)
[2021-09-20] MEDS: Budesonide/Formoterol 160/4.5 1 PUFF INH IH SCH ×2 (07:32→19:50)
[2021-09-20] MEDS: clonazePAM 0.5 MG TABLET PO SCH ×3 (07:47→20:55)
[2021-09-20] MEDS: amLODIPine 5 MG TABLET PO SCH (07:48)
[2021-09-20] MEDS: Isosorbide MONOnitrate (24 HR) 60 MG TAB.ER.24H PO SCH ×2 (07:48→20:56)
[2021-09-20] MEDS: Metoprolol XL (24 HR) Succ 50 MG TAB.ER.24H PO SCH (07:48)
[2021-09-20] MEDS: Gabapentin 300 MG CAPSULE PO SCH ×3 (07:48→20:55)
[2021-09-20] MEDS: Insulin DETEMIR 100 UNIT/ML X5UNITS SUBQ SCH ×2 (07:49→20:55)
[2021-09-20] MEDS: Insulin LISPRO 300 UNITS/3 ML VIAL SUBQ SCH ×4 (07:49→20:57)
[2021-09-20] MEDS: *HR* OxyCODONE/APAP 10/325 TABLET PO PRN ×3 (07:56→20:55)
[2021-09-20] MEDS ORDERED: Vancomycin 1,250 MG/262.5 ML IV.SOLN IVPB ONE (08:00)
[2021-09-20] MEDS: Chlorhexidine Rinse 15 ML MOUTHWASH MM SCH (20:55)
[2021-09-20] MEDS: Ondansetron ODT 4 MG TAB.RAPDIS SL PRN (20:56)
[2021-09-20] MEDS: Melatonin 3 MG TABLET PO PRN (20:56)
[2021-09-20] MEDS: Estrogens, Conjugated CREAM 30 GM TUBE VG SCH (21:30)
[2021-09-21] MEDS: *HR* OxyCODONE/APAP 10/325 TABLET PO PRN ×3 (03:22→18:04)
[2021-09-21] MEDS: Ipratropium/Albuterol Neb 3 ML IH SCH ×6 (03:35→23:38)
[2021-09-21 05:07] LABS: Red Cell Distribution Width 17.1 % (11.5-14.5)
[2021-09-21 05:09] LABS: Hematocrit 38.6 % (35.3-44.9); Immature Platelets 10.9 % (1.1-6.1); Mean Corpuscular HGB Conc 28.5 g/dL (31.6-35.5); Mean Corpuscular Hemoglobin 23.6 pg (28.0-33.3); Mean Corpuscular Volume 82.8 fL (83.0-100.0); Red Blood Count 4.66 M/mcL (3.82-4.97); White Blood Count 12.7 K/mcL (4.3-11.1)
[2021-09-21 05:21] LABS: INR 0.9; Prothrombin Time 10.4 Seconds (9.4-12.1)
[2021-09-21 05:22] LABS: Activated Partial Thrombo Time 28.2 Seconds (26.0-36.0)
[2021-09-21 05:29] LABS: Calcium 8.8 mg/dL (8.6-10.3); Potassium 4.1 mEq/L (3.5-5.1)
[2021-09-21] MEDS ORDERED: Vancomycin 1,250 MG/262.5 ML IV.SOLN IVPB ONE (06:00)
[2021-09-21] MEDS ORDERED: Aspirin 81 MG TAB.CHEW PO ONE (06:00)
[2021-09-21] MEDS ORDERED: NiCARdipine 2.5 MG/10 ML Syringe IVPB ONE (06:22)
[2021-09-21] MEDS ORDERED: *HR* Midazolam HCl 5 MG/5 ML VIAL IVP ONE (06:32)
[2021-09-21] MEDS ORDERED: *HR* FentaNYL (PF) 1,000 MCG/20 ML VIAL ONE (06:32)
[2021-09-21] MEDS ORDERED: *HR* Rocuronium Bromide 50 MG/5 ML VIAL ONE (06:34)
[2021-09-21] MEDS ORDERED: niCARdipine 40 MG/200 ML MLS IVC ONE (06:34)
[2021-09-21] MEDS ORDERED: Famotidine 20 MG/2 ML VIAL ONE (06:35)
[2021-09-21] MEDS ORDERED: *HR* Etomidate 20 MG/10 ML AMPUL IVP ONE (06:35)
[2021-09-21] MEDS ORDERED: *HR* DOBUTamine HCl 250 MG/20 ML VIAL ONE (06:35)
[2021-09-21] MEDS ORDERED: Protamine Sulfate 250 MG/25 ML VIAL IVP ONE (06:38)
[2021-09-21] MEDS ORDERED: Tranexamic Acid 1,000 MG/10 ML VIAL ONE ×2 (06:38→10:09)
[2021-09-21] MEDS ORDERED: Calcium Gluconate 1,000 MG/10 ML VIAL ONE (06:38)
[2021-09-21] MEDS ORDERED: D5% in Water 250 ML ONE (06:40)
[2021-09-21] MEDS ORDERED: Vancomycin 1,000 MG VIAL ONE (06:53)
[2021-09-21] MEDS ORDERED: Papaverine 60 MG/2 ML VIAL IVP ONE (06:53)
[2021-09-21] MEDS: Chlorhexidine Rinse 15 ML MOUTHWASH MM SCH ×2 (06:54→20:10)
[2021-09-21] MEDS ORDERED: EPHEDrine 50 MG/ML VIAL ONE (06:56)
[2021-09-21] MEDS ORDERED: Milrinone Lactate 10 MG/10 ML VIAL ONE (07:00)
[2021-09-21] MEDS ORDERED: CeFAZolin Syr 2,000MG/20 ML 2,000 MG/20 ML SYRINGE IVPB ONE (07:13)
[2021-09-21] MEDS ORDERED: Water for inj. (sterile) 0 ML ONE (07:44)
[2021-09-21] MEDS ORDERED: del Nido Cardioplegia Solution PF ONE (07:45)
[2021-09-21] MEDS ORDERED: Buckersberg's Blood Cardioplegia PF SCH (07:45)
[2021-09-21] MEDS ORDERED: Heparin 15,000 UNIT in 0.9 % Sodium Chloride 500 ML IV ONE (07:45)
[2021-09-21] MEDS ORDERED: Norepinephrine 4 MG in 0.9 % Sodium Chloride 250 ML IVC PRN (07:45)
[2021-09-21] MEDS ORDERED: del Nido Cardioplegia Solution PF SCH (07:45)
[2021-09-21] MEDS: Budesonide/Formoterol 160/4.5 1 PUFF INH IH SCH ×2 (07:54→19:33)
[2021-09-21] MEDS: Tiotropium 10 INH DOSE IH SCH (07:54)
[2021-09-21 08:14] LABS: ABG Base Excess 1 mEq/L (-2 to 3); ABG Chloride 103 mEq/L (98-107); ABG Glucose 380 mg/dL (60-95); ABG HCO3 28 mEq/L (21-27); ABG Ionized Calcium 1.17 mmol/L (1.15-1.35); ABG Oxygen Saturation 91 % (95-98); ABG PCO2 59 mmHg (35-45); ABG PH 7.29 pH Units (7.32-7.45); ABG PO2 70 mmHg (85-104); ABG TCO2 30 mEq/L (20-26)
[2021-09-21] MEDS ORDERED: Clindamycin 900 MG/50 ML 900 MG/50 ML IV.SOLN IVPB ONE ×2 (08:16→09:21)
[2021-09-21 09:16] LABS: ABG Base Excess -2 mEq/L (-2 to 3); ABG Chloride 102 mEq/L (98-107); ABG Glucose 331 mg/dL (60-95); ABG HCO3 28 mEq/L (21-27); ABG Ionized Calcium 1.31 mmol/L (1.15-1.35); ABG Oxygen Saturation 100 % (95-98); ABG PCO2 70 mmHg (35-45); ABG PO2 242 mmHg (85-104); ABG TCO2 30 mEq/L (20-26)
[2021-09-21 09:24] LABS: ABG Base Excess -1 mEq/L (-2 to 3); ABG Chloride 103 mEq/L (98-107); ABG Glucose 323 mg/dL (60-95); ABG HCO3 27 mEq/L (21-27); ABG Ionized Calcium 1.29 mmol/L (1.15-1.35); ABG Oxygen Saturation 100 % (95-98); ABG PCO2 57 mmHg (35-45); ABG PH 7.28 pH Units (7.32-7.45); ABG PO2 252 mmHg (85-104); ABG TCO2 29 mEq/L (20-26)
[2021-09-21 09:41] LABS: ABG Base Excess 1 mEq/L (-2 to 3); ABG Chloride 100 mEq/L (98-107); ABG Glucose 257 mg/dL (60-95); ABG HCO3 26 mEq/L (21-27); ABG Ionized Calcium 1.09 mmol/L (1.15-1.35); ABG Oxygen Saturation 100 % (95-98); ABG PCO2 46 mmHg (35-45); ABG PH 7.36 pH Units (7.32-7.45); ABG PO2 591 mmHg (85-104); ABG TCO2 28 mEq/L (20-26)
[2021-09-21 10:03] LABS: ABG Base Excess 2 mEq/L (-2 to 3); ABG Chloride 101 mEq/L (98-107); ABG Glucose 250 mg/dL (60-95); ABG HCO3 26 mEq/L (21-27); ABG Ionized Calcium 1.05 mmol/L (1.15-1.35); ABG Oxygen Saturation 100 % (95-98); ABG PCO2 38 mmHg (35-45); ABG PH 7.44 pH Units (7.32-7.45); ABG PO2 555 mmHg (85-104); ABG TCO2 27 mEq/L (20-26)
[2021-09-21 10:29] LABS: ABG Base Excess 1 mEq/L (-2 to 3); ABG Chloride 102 mEq/L (98-107); ABG Glucose 257 mg/dL (60-95); ABG HCO3 24 mEq/L (21-27); ABG Ionized Calcium 1.56 mmol/L (1.15-1.35); ABG Oxygen Saturation 100 % (95-98); ABG PCO2 32 mmHg (35-45); ABG PH 7.48 pH Units (7.32-7.45); ABG PO2 549 mmHg (85-104); ABG TCO2 25 mEq/L (20-26)
[2021-09-21] MEDS ORDERED: Protamine Sulfate 50 MG/5 ML VIAL IVP ONE (10:37)
[2021-09-21 10:44] LABS: ABG Base Excess 0 mEq/L (-2 to 3); ABG Chloride 102 mEq/L (98-107); ABG Glucose 293 mg/dL (60-95); ABG HCO3 25 mEq/L (21-27); ABG Ionized Calcium 1.66 mmol/L (1.15-1.35); ABG Oxygen Saturation 99 % (95-98); ABG PCO2 40 mmHg (35-45); ABG PH 7.41 pH Units (7.32-7.45); ABG PO2 148 mmHg (85-104); ABG TCO2 26 mEq/L (20-26)
[2021-09-21] MEDS ORDERED: *HR* Dextrose 50 % in Water (Syg) 50 ML SYRINGE IVP PRN (11:10)
[2021-09-21] MEDS ORDERED: Insulin Regular, Human 100 UNIT/ML IV PRN (11:10)
[2021-09-21] MEDS ORDERED: Potassium Chloride 40 MEQ/200 ML BAG IVPB PRN (11:10)
[2021-09-21] MEDS ORDERED: Calcium Gluconate 1gm/50mL 1 GM/50 ML BAG IVPB PRN (11:18)
[2021-09-21] MEDS ORDERED: *HR* Promethazine 25 MG/ML VIAL IM PRN (11:18)
[2021-09-21] MEDS ORDERED: Albumin Human 5% 12.5 GM/250 ML IV.SOLN IVPB PRN (11:18)
[2021-09-21 11:42] LABS: ABG Base Excess -1 mEq/L (-2 to 3); ABG HCO3 25 mEq/L (21-27); ABG Oxygen Saturation 85 % (95-98); ABG PCO2 47 mmHg (35-45); ABG PH 7.34 pH Units (7.32-7.45); ABG PO2 54 mmHg (85-104); ABG TCO2 27 mEq/L (20-26); Blood Gas Modality ASSIST CONTROL; Blood Gas VT 480 cc
[2021-09-21 11:54] LABS: Basophils # 0.1 K/mcL (0.0-0.2); Basophils % 0.6 %; Eosinophils # 0.2 K/mcL (0.0-0.6); Eosinophils % 1.2 %; Hematocrit 31.8 % (35.3-44.9); Lymphocytes % 11.4 %; Mean Corpuscular HGB Conc 28.6 g/dL (31.6-35.5); Mean Corpuscular Hemoglobin 23.5 pg (28.0-33.3); Monocytes # 0.8 K/mcL (0.0-1.3); Monocytes % 4.6 %; Neutrophils # 14.2 K/mcL (1.6-8.9); Platelet Count 123 K/mcL (140-400); Red Blood Count 3.88 M/mcL (3.82-4.97); Red Cell Distribution Width 16.8 % (11.5-14.5); Segmented Neutrophils % 79.2 %; White Blood Count 17.9 K/mcL (4.3-11.1)
[2021-09-21 11:55] LABS: Hemoglobin 9.1 g/dL (11.5-15.4)
[2021-09-21 12:04] LABS: Prothrombin Time 11.2 Seconds (9.4-12.1)
[2021-09-21 12:07] LABS: Activated Partial Thrombo Time 26.7 Seconds (26.0-36.0)
[2021-09-21 12:37] LABS: BUN/Creatinine Ratio 38 (6-26); Blood Urea Nitrogen 39 mg/dL (8-23); Carbon Dioxide 26 mEq/L (23-29); Chloride 105 mEq/L (98-107); Glucose 297 mg/dL (70-105); Osmolality,Calculated 304 (280-300); Potassium 4.4 mEq/L (3.5-5.1); Sodium 137 mEq/L (136-145); eGFR For African Americans > 60 (> 60); eGFR For Non-African Americans 54 (> 60)
[2021-09-21] MEDS: clonazePAM 0.5 MG TABLET PO SCH ×4 (14:22→21:52)
[2021-09-21] MEDS: Isosorbide MONOnitrate (24 HR) 60 MG TAB.ER.24H PO SCH ×2 (14:22→19:36)
[2021-09-21] MEDS: Norepinephrine 4 MG/254 ML IV.SOLN IVC SCH (14:23)
[2021-09-21] MEDS: Metoprolol XL (24 HR) Succ 50 MG TAB.ER.24H PO SCH (14:23)
[2021-09-21] MEDS: Insulin DETEMIR 100 UNIT/ML X5UNITS SUBQ SCH ×2 (14:23→19:36)
[2021-09-21] MEDS: amLODIPine 5 MG TABLET PO SCH (14:23)
[2021-09-21] MEDS: Gabapentin 300 MG CAPSULE PO SCH ×4 (14:23→21:52)
[2021-09-21] MEDS ORDERED: *HR* Heparin 10,000 UNIT/10 ML VIAL IR ONE (14:28)
[2021-09-21] MEDS ORDERED: Lidocaine 2% Syringe 100 MG/5 ML IVP ONE (14:28)
[2021-09-21] MEDS ORDERED: Mannitol 25% vial 12.5 GM/50 ML VIAL IVPB ONE (14:28)
[2021-09-21] MEDS ORDERED: Albumin Human 25% 25 GM/100 ML IV.SOLN IVPB ONE (14:28)
[2021-09-21] MEDS ORDERED: *HR* Magnesium Sulfate 2 GM/50 ML PIGGYBACK IVPB ONE (14:28)
[2021-09-21] MEDS ORDERED: *HR* Phenylephrine 10 MG/ML VIAL IVC ONE (14:28)
[2021-09-21] MEDS ORDERED: Tranexamic Acid 1,000 MG/10 ML VIAL IR ONE (14:28)
[2021-09-21] MEDS: Ipratropium 1 PUFF INHALER IH SCH ×4 (14:58→23:44)
[2021-09-21] MEDS: Albuterol 2.5 MG/3 ML NEBULIZER IH SCH ×4 (16:00→23:44)
[2021-09-21] MEDS ORDERED: Clindamycin 900 MG/50 ML 900 MG/50 ML IV.SOLN IVPB SCH (16:00)
[2021-09-21 16:20] LABS: ABG Base Excess -1 mEq/L (-2 to 3); ABG HCO3 28 mEq/L (21-27); ABG Oxygen Saturation 92 % (95-98); ABG PCO2 62 mmHg (35-45); ABG PH 7.26 pH Units (7.32-7.45); ABG PO2 74 mmHg (85-104); ABG TCO2 30 mEq/L (20-26); Blood Gas Modality ASSIST CONTROL; Blood Gas VT 480 cc
[2021-09-21] MEDS: *HR* FentaNYL PATCH 12 MCG PATCH TD SCH (17:17)
[2021-09-21] MEDS: Famotidine 20 MG/2 ML VIAL IVP SCH (17:18)
[2021-09-21] MEDS: Ondansetron ODT 4 MG TAB.RAPDIS SL PRN (18:22)
[2021-09-21] MEDS: Estrogens, Conjugated CREAM 30 GM TUBE VG SCH (20:11)
[2021-09-21 20:31] LABS: ABG Base Excess 0 mEq/L (-2 to 3); ABG HCO3 24 mEq/L (21-27); ABG Oxygen Saturation 90 % (95-98); ABG PCO2 36 mmHg (35-45); ABG PH 7.44 pH Units (7.32-7.45); ABG PO2 56 mmHg (85-104); ABG TCO2 25 mEq/L (20-26); Blood Gas Modality ASSIST CONTROL; Blood Gas VT 480 cc
[2021-09-21] MEDS: Clindamycin 900 MG/50 ML 900 MG/50 ML IV.SOLN IVPB SCH (20:35)
[2021-09-22 00:03] LABS: ABG Base Excess 1 mEq/L (-2 to 3); ABG HCO3 25 mEq/L (21-27); ABG Oxygen Saturation 94 % (95-98); ABG PCO2 35 mmHg (35-45); ABG PH 7.46 pH Units (7.32-7.45); ABG PO2 67 mmHg (85-104); ABG TCO2 26 mEq/L (20-26); Blood Gas Modality ASSIST CONTROL; Blood Gas VT 480 cc
[2021-09-22] MEDS: *HR* FentaNYL (PF) 100 MCG/2 ML VIAL IVP PRN ×3 (00:03→12:10)
[2021-09-22] MEDS: *HR* OxyCODONE/APAP 10/325 TABLET PO PRN ×3 (00:04→14:18)
[2021-09-22] MEDS: Clindamycin 900 MG/50 ML 900 MG/50 ML IV.SOLN IVPB SCH (02:38)
[2021-09-22] MEDS: Albuterol 2.5 MG/3 ML NEBULIZER IH SCH ×6 (04:15→23:24)
[2021-09-22] MEDS: Ipratropium 1 PUFF INHALER IH SCH ×6 (04:15→23:24)
[2021-09-22] MEDS: Ipratropium/Albuterol Neb 3 ML IH SCH ×6 (04:17→23:24)
[2021-09-22 04:28] LABS: ABG Base Excess 0 mEq/L (-2 to 3); ABG HCO3 25 mEq/L (21-27); ABG Oxygen Saturation 95 % (95-98); ABG PCO2 41 mmHg (35-45); ABG PO2 76 mmHg (85-104); ABG TCO2 26 mEq/L (20-26); Blood Gas Modality ASSIST CONTROL; Blood Gas VT 480 cc
[2021-09-22 04:41] LABS: Basophils # 0.1 K/mcL (0.0-0.2); Basophils % 0.6 %; Eosinophils # 0.1 K/mcL (0.0-0.6); Eosinophils % 0.4 %; Hematocrit 34.2 % (35.3-44.9); Hemoglobin 9.9 g/dL (11.5-15.4); Lymphocytes # 1.4 K/mcL (0.6-4.6); Lymphocytes % 7.4 %; Mean Corpuscular HGB Conc 28.9 g/dL (31.6-35.5); Mean Corpuscular Hemoglobin 23.4 pg (28.0-33.3); Mean Corpuscular Volume 80.9 fL (83.0-100.0); Monocytes % 5.4 %; Neutrophils # 16.3 K/mcL (1.6-8.9); Nucleated Red Blood Cells 0.1 /100 WBC (0); Platelet Count 169 K/mcL (140-400); Red Blood Count 4.23 M/mcL (3.82-4.97); Red Cell Distribution Width 17.7 % (11.5-14.5); Segmented Neutrophils % 84.2 %; White Blood Count 19.3 K/mcL (4.3-11.1)
[2021-09-22 05:36] LABS: Prothrombin Time 11.5 Seconds (9.4-12.1)
[2021-09-22] MEDS: Famotidine 20 MG/2 ML VIAL IVP SCH ×2 (05:36→17:04)
[2021-09-22] MEDS: Ketorolac 30 MG/ML VIAL IVP PRN ×3 (05:36→20:15)
[2021-09-22 05:39] LABS: Activated Partial Thrombo Time 30.3 Seconds (26.0-36.0)
[2021-09-22 05:44] LABS: Calcium 9.3 mg/dL (8.6-10.3); Magnesium 2.1 mg/dL (1.6-2.6); Potassium 4.3 mEq/L (3.5-5.1)
[2021-09-22] MEDS: Budesonide/Formoterol 160/4.5 1 PUFF INH IH SCH ×2 (07:25→19:50)
[2021-09-22] MEDS: Tiotropium 10 INH DOSE IH SCH (07:28)
[2021-09-22 07:48] LABS: ABG Base Excess 2 mEq/L (-2 to 3); ABG HCO3 27 mEq/L (21-27); ABG Oxygen Saturation 94 % (95-98); ABG PCO2 43 mmHg (35-45); ABG PO2 70 mmHg (85-104); ABG TCO2 28 mEq/L (20-26); Blood Gas Modality ASSIST CONTROL
[2021-09-22] MEDS: amLODIPine 5 MG TABLET PO SCH (08:39)
[2021-09-22] MEDS: Gabapentin 300 MG CAPSULE PO SCH ×3 (08:40→20:12)
[2021-09-22] MEDS: clonazePAM 0.5 MG TABLET PO SCH ×3 (08:40→20:12)
[2021-09-22] MEDS: Chlorhexidine Rinse 15 ML MOUTHWASH MM SCH ×2 (08:41→20:12)
[2021-09-22] MEDS: Furosemide 40 MG/4 ML VIAL IVP SCH ×2 (08:41→17:04)
[2021-09-22] MEDS: Insulin DETEMIR 100 UNIT/ML X5UNITS SUBQ SCH ×2 (08:44→20:13)
[2021-09-22] MEDS: Isosorbide MONOnitrate (24 HR) 60 MG TAB.ER.24H PO SCH ×2 (09:00→20:12)
[2021-09-22] MEDS: Metoprolol XL (24 HR) Succ 50 MG TAB.ER.24H PO SCH (09:00)
[2021-09-22] MEDS ORDERED: Bumetanide 1 MG/4 ML VIAL IVP ONE (09:52)
[2021-09-22 10:05] LABS: ABG Base Excess 3 mEq/L (-2 to 3); ABG HCO3 28 mEq/L (21-27); ABG Oxygen Saturation 96 % (95-98); ABG PCO2 44 mmHg (35-45); ABG PH 7.41 pH Units (7.32-7.45); ABG PO2 79 mmHg (85-104); ABG TCO2 29 mEq/L (20-26); Blood Gas Modality CPAP/PS
[2021-09-22 11:32] LABS: ABG Base Excess 2 mEq/L (-2 to 3); ABG HCO3 27 mEq/L (21-27); ABG Oxygen Saturation 90 % (95-98); ABG PCO2 44 mmHg (35-45); ABG PO2 59 mmHg (85-104); ABG TCO2 29 mEq/L (20-26)
[2021-09-22] MEDS: Norepinephrine 4 MG/254 ML IV.SOLN IVC SCH (12:32)
[2021-09-22] MEDS ORDERED: *HR* Dextrose 50 % in Water (Syg) 50 ML SYRINGE IVP PRN (16:52)
[2021-09-22] MEDS ORDERED: D5% in Water 1,000 ML IVC PRN (16:52)
[2021-09-22] MEDS ORDERED: Dextrose Gel 15 GM/37.5 ML TUBE PO PRN ×2 (16:52)
[2021-09-22] MEDS: Insulin LISPRO 300 UNITS/3 ML VIAL SUBQ SCH ×3 (17:03→20:44)
[2021-09-22] MEDS: Nystatin SUSP 5 ML UD.LIQ PO SCH ×2 (17:04→20:12)
[2021-09-22] MEDS ORDERED: 0.9 % Sodium Chloride 250 ML ONE (19:34)
[2021-09-22] MEDS: Estrogens, Conjugated CREAM 30 GM TUBE VG SCH (20:24)
[2021-09-23] MEDS: *HR* OxyCODONE/APAP 10/325 TABLET PO PRN ×4 (00:32→18:12)
[2021-09-23] MEDS: Ipratropium 1 PUFF INHALER IH SCH ×6 (03:39→23:35)
[2021-09-23] MEDS: Albuterol 2.5 MG/3 ML NEBULIZER IH SCH ×6 (03:39→23:35)
[2021-09-23] MEDS: Ipratropium/Albuterol Neb 3 ML IH SCH ×6 (03:39→23:37)
[2021-09-23] MEDS: Ketorolac 30 MG/ML VIAL IVP PRN (03:42)
[2021-09-23 03:56] LABS: Basophils % 0.7 %; Eosinophils % 3.9 %; Hemoglobin 7.7 g/dL (11.5-15.4); Immature Granulocytes % 2.4 % (0-4); Lymphocytes % 13.3 %
[2021-09-23 03:58] LABS: Basophils # 0.1 K/mcL (0.0-0.2); Eosinophils # 0.5 K/mcL (0.0-0.6); Hematocrit 26.7 % (35.3-44.9); Lymphocytes # 1.8 K/mcL (0.6-4.6); Mean Corpuscular HGB Conc 28.8 g/dL (31.6-35.5); Mean Corpuscular Volume 83.2 fL (83.0-100.0); Mean Platelet Volume 12.5 fL (9.4-12.4); Monocytes % 7.7 %; Neutrophils # 9.6 K/mcL (1.6-8.9); Platelet Count 128 K/mcL (140-400); Red Blood Count 3.21 M/mcL (3.82-4.97); White Blood Count 13.3 K/mcL (4.3-11.1)
[2021-09-23 04:20] LABS: Anisocytosis 1+ (Not Present); Platelet Estimate Slight Decrease (Normal); Polychromasia 1+ (Not Present)
[2021-09-23] MEDS: Famotidine 20 MG/2 ML VIAL IVP SCH ×2 (06:29→17:11)
[2021-09-23] MEDS: Budesonide/Formoterol 160/4.5 1 PUFF INH IH SCH ×2 (07:29→20:11)
[2021-09-23] MEDS: Gabapentin 300 MG CAPSULE PO SCH ×3 (08:41→20:24)
[2021-09-23] MEDS: Isosorbide MONOnitrate (24 HR) 60 MG TAB.ER.24H PO SCH ×2 (08:41→20:24)
[2021-09-23] MEDS: Chlorhexidine Rinse 15 ML MOUTHWASH MM SCH ×2 (08:41→20:24)
[2021-09-23] MEDS: amLODIPine 5 MG TABLET PO SCH (08:41)
[2021-09-23] MEDS: clonazePAM 0.5 MG TABLET PO SCH ×3 (08:41→20:24)
[2021-09-23] MEDS: Furosemide 40 MG/4 ML VIAL IVP SCH ×2 (08:41→16:28)
[2021-09-23] MEDS: Nystatin SUSP 5 ML UD.LIQ PO SCH ×4 (08:42→20:24)
[2021-09-23] MEDS: Metoprolol XL (24 HR) Succ 50 MG TAB.ER.24H PO SCH (08:42)
[2021-09-23] MEDS: Insulin DETEMIR 100 UNIT/ML X5UNITS SUBQ SCH (08:44)
[2021-09-23 11:06] LABS: BUN/Creatinine Ratio 29 (6-26); Blood Urea Nitrogen 30 mg/dL (8-23); Calcium 6.9 mg/dL (8.6-10.3); Carbon Dioxide 24 mEq/L (23-29); Chloride 109 mEq/L (98-107); Glucose 283 mg/dL (70-105); Osmolality,Calculated 298 (280-300); Potassium 3.7 mEq/L (3.5-5.1); Sodium 136 mEq/L (136-145); eGFR For African Americans > 60 (> 60); eGFR For Non-African Americans 54 (> 60)
[2021-09-23] MEDS: Tiotropium 10 INH DOSE IH SCH (11:42)
[2021-09-23] MEDS: Insulin LISPRO 300 UNITS/3 ML VIAL SUBQ SCH ×3 (12:07→20:07)
[2021-09-23] MEDS: Estrogens, Conjugated CREAM 30 GM TUBE VG SCH (20:25)
[2021-09-23] MEDS ORDERED: Insulin DETEMIR 100 UNIT/ML X5UNITS SUBQ SCH (21:00)
[2021-09-24] MEDS: *HR* OxyCODONE/APAP 10/325 TABLET PO PRN ×2 (03:11→15:29)
[2021-09-24] MEDS: Ipratropium 1 PUFF INHALER IH SCH (03:31)
[2021-09-24] MEDS: Albuterol 2.5 MG/3 ML NEBULIZER IH SCH ×6 (03:31→23:55)
[2021-09-24] MEDS: Ipratropium/Albuterol Neb 3 ML IH SCH ×6 (04:10→23:53)
[2021-09-24] MEDS ORDERED: Bisacodyl 10 MG RECTAL SUPPOSITORY RC PRN (04:21)
[2021-09-24] MEDS ORDERED: Ondansetron ODT 4 MG TAB.RAPDIS SL PRN (04:21)
[2021-09-24] MEDS ORDERED: *HR* Dextrose 50 % in Water (Syg) 50 ML SYRINGE IVP PRN (04:21)
[2021-09-24] MEDS ORDERED: D5% in Water 1,000 ML IVC PRN (04:21)
[2021-09-24] MEDS ORDERED: Nitroglycerin 0.4 MG TAB.SUBL SL PRN (04:21)
[2021-09-24] MEDS ORDERED: Dextrose Gel 15 GM/37.5 ML TUBE PO PRN ×2 (04:21)
[2021-09-24] MEDS ORDERED: Albumin Human 5% 12.5 GM/250 ML IV.SOLN IVPB PRN (04:21)
[2021-09-24] MEDS ORDERED: Naloxone 0.4 MG/ML INJ IVP PRN (04:21)
[2021-09-24] MEDS ORDERED: Melatonin 3 MG TABLET PO PRN (04:21)
[2021-09-24] MEDS: Famotidine 20 MG/2 ML VIAL IVP SCH ×2 (06:01→17:32)
[2021-09-24] MEDS: Budesonide/Formoterol 160/4.5 1 PUFF INH IH SCH ×2 (07:50→20:10)
[2021-09-24] MEDS: Tiotropium 10 INH DOSE IH SCH (07:54)
[2021-09-24] MEDS: Ketorolac 30 MG/ML VIAL IVP PRN (07:57)
[2021-09-24] MEDS ORDERED: Ipratropium 1 PUFF INHALER IH SCH (08:00)
[2021-09-24] MEDS: Insulin DETEMIR 100 UNIT/ML X5UNITS SUBQ SCH ×2 (08:02→20:53)
[2021-09-24] MEDS: Insulin LISPRO 300 UNITS/3 ML VIAL SUBQ SCH ×4 (08:03→20:52)
[2021-09-24] MEDS: Gabapentin 300 MG CAPSULE PO SCH ×3 (09:18→19:49)
[2021-09-24] MEDS: clonazePAM 0.5 MG TABLET PO SCH ×3 (09:18→19:49)
[2021-09-24] MEDS: amLODIPine 5 MG TABLET PO SCH (09:18)
[2021-09-24] MEDS: Metoprolol XL (24 HR) Succ 50 MG TAB.ER.24H PO SCH (09:18)
[2021-09-24] MEDS: Nystatin SUSP 5 ML UD.LIQ PO SCH ×4 (09:19→19:49)
[2021-09-24] MEDS: Chlorhexidine Rinse 15 ML MOUTHWASH MM SCH ×2 (09:19→19:49)
[2021-09-24] MEDS: Isosorbide MONOnitrate (24 HR) 60 MG TAB.ER.24H PO SCH ×2 (09:20→19:49)
[2021-09-24] MEDS ORDERED: *HR* HYDROmorphone (PF) 1 MG/ML SYRINGE IVP ONE (10:04)
[2021-09-24] MEDS ORDERED: *HR* FentaNYL PATCH 12 MCG PATCH TD SCH (17:00)
[2021-09-24] MEDS: Acetaminophen 325 MG TABLET PO PRN (19:49)
[2021-09-24] MEDS: Estrogens, Conjugated CREAM 30 GM TUBE VG SCH (19:50)
[2021-09-25] MEDS: *HR* OxyCODONE/APAP 10/325 TABLET PO PRN ×4 (00:22→18:31)
[2021-09-25] MEDS: Ipratropium/Albuterol Neb 3 ML IH SCH ×5 (04:19→20:54)
[2021-09-25] MEDS: Albuterol 2.5 MG/3 ML NEBULIZER IH SCH ×5 (04:21→20:52)
[2021-09-25] MEDS: Ketorolac 30 MG/ML VIAL IVP PRN ×2 (04:40→14:38)
[2021-09-25] MEDS: Famotidine 20 MG/2 ML VIAL IVP SCH ×2 (04:41→18:32)
[2021-09-25 04:44] LABS: Albumin 2.6 g/dL (3.5-5.7); Bilirubin,Total 0.3 mg/dL (0.3-1.0); Calcium 8.2 mg/dL (8.6-10.3); Globulin 2.7 g/dL (2.4-3.5); Phosphorous 4.7 mg/dL (2.7-4.5); Potassium 4.2 mEq/L (3.5-5.1); Total Protein 5.3 g/dL (6.4-8.9)
[2021-09-25 04:48] LABS: VBG Ionized Calcium 1.23 mmol/L (1.15-1.35)
[2021-09-25 04:52] LABS: Basophils # 0.1 K/mcL (0.0-0.2); Basophils % 0.8 %; Eosinophils # 0.7 K/mcL (0.0-0.6); Eosinophils % 5.5 %; Hematocrit 27.3 % (35.3-44.9); Immature Granulocytes % 2.2 % (0-4); Lymphocytes # 2.1 K/mcL (0.6-4.6); Lymphocytes % 15.8 %; Mean Corpuscular HGB Conc 29.3 g/dL (31.6-35.5); Mean Corpuscular Hemoglobin 24.2 pg (28.0-33.3); Mean Corpuscular Volume 82.5 fL (83.0-100.0); Mean Platelet Volume 12.1 fL (9.4-12.4); Monocytes # 0.6 K/mcL (0.0-1.3); Monocytes % 4.9 %; Neutrophils # 9.2 K/mcL (1.6-8.9); Platelet Count 189 K/mcL (140-400); Red Blood Count 3.31 M/mcL (3.82-4.97); Red Cell Distribution Width 18.1 % (11.5-14.5); Segmented Neutrophils % 70.8 %
[2021-09-25] MEDS: clonazePAM 0.5 MG TABLET PO SCH ×3 (07:39→22:03)
[2021-09-25] MEDS: Metoprolol XL (24 HR) Succ 50 MG TAB.ER.24H PO SCH (07:39)
[2021-09-25] MEDS: Isosorbide MONOnitrate (24 HR) 60 MG TAB.ER.24H PO SCH ×2 (07:39→22:03)
[2021-09-25] MEDS: Gabapentin 300 MG CAPSULE PO SCH ×3 (07:39→22:03)
[2021-09-25] MEDS: amLODIPine 5 MG TABLET PO SCH (07:40)
[2021-09-25] MEDS: Chlorhexidine Rinse 15 ML MOUTHWASH MM SCH ×2 (07:41→22:03)
[2021-09-25] MEDS: Nystatin SUSP 5 ML UD.LIQ PO SCH ×4 (07:41→22:03)
[2021-09-25] MEDS: Insulin LISPRO 300 UNITS/3 ML VIAL SUBQ SCH ×4 (07:56→22:04)
[2021-09-25] MEDS: Insulin DETEMIR 100 UNIT/ML X5UNITS SUBQ SCH ×3 (07:56→22:03)
[2021-09-25] MEDS ORDERED: *HR* HYDROmorphone (PF) 1 MG/ML SYRINGE IM ONE (08:29)
[2021-09-25] MEDS: Tiotropium 10 INH DOSE IH SCH (11:16)
[2021-09-25] MEDS: Budesonide/Formoterol 160/4.5 1 PUFF INH IH SCH ×2 (11:17→20:51)
[2021-09-25] MEDS: haloperidoL 1 MG TABLET SL PRN (12:33)
[2021-09-25] MEDS: Ringers Solution, Lactated 500 ML IVC SCH (14:45)
[2021-09-25] MEDS ORDERED: *HR* HYDROmorphone (PF) 1 MG/ML SYRINGE IVP PRN (17:13)
[2021-09-25] MEDS: Estrogens, Conjugated CREAM 30 GM TUBE VG SCH (22:07)
[2021-09-26] MEDS: Ipratropium/Albuterol Neb 3 ML IH SCH ×6 (00:21→20:25)
[2021-09-26] MEDS: Albuterol 2.5 MG/3 ML NEBULIZER IH SCH ×6 (00:22→20:23)
[2021-09-26] MEDS: Acetaminophen 325 MG TABLET PO PRN (00:28)
[2021-09-26] MEDS: *HR* OxyCODONE/APAP 10/325 TABLET PO PRN ×3 (00:29→14:39)
[2021-09-26] MEDS: haloperidoL 1 MG TABLET SL PRN ×3 (03:45→18:09)
[2021-09-26 04:26] LABS: Hematocrit 27.6 % (35.3-44.9); Mean Corpuscular Hemoglobin 23.9 pg (28.0-33.3); Mean Corpuscular Volume 82.4 fL (83.0-100.0); Mean Platelet Volume 11.8 fL (9.4-12.4); Platelet Count 210 K/mcL (140-400); Red Blood Count 3.35 M/mcL (3.82-4.97); Red Cell Distribution Width 18.5 % (11.5-14.5); White Blood Count 12.1 K/mcL (4.3-11.1)
[2021-09-26] MEDS: Ringers Solution, Lactated 500 ML IVC SCH ×2 (04:34→12:37)
[2021-09-26 04:42] LABS: Calcium 8.1 mg/dL (8.6-10.3); Potassium 4.3 mEq/L (3.5-5.1)
[2021-09-26] MEDS: Famotidine 20 MG/2 ML VIAL IVP SCH ×2 (05:45→18:08)
[2021-09-26] MEDS: Budesonide/Formoterol 160/4.5 1 PUFF INH IH SCH ×2 (07:37→20:25)
[2021-09-26] MEDS: Tiotropium 10 INH DOSE IH SCH (07:38)
[2021-09-26] MEDS: Isosorbide MONOnitrate (24 HR) 60 MG TAB.ER.24H PO SCH (08:43)
[2021-09-26] MEDS: amLODIPine 5 MG TABLET PO SCH (08:43)
[2021-09-26] MEDS: clonazePAM 0.5 MG TABLET PO SCH ×2 (08:44→14:39)
[2021-09-26] MEDS: Metoprolol XL (24 HR) Succ 50 MG TAB.ER.24H PO SCH (08:44)
[2021-09-26] MEDS: Gabapentin 300 MG CAPSULE PO SCH ×2 (08:44→14:39)
[2021-09-26] MEDS: Nystatin SUSP 5 ML UD.LIQ PO SCH ×3 (08:45→18:07)
[2021-09-26] MEDS: Chlorhexidine Rinse 15 ML MOUTHWASH MM SCH (08:45)
[2021-09-26] MEDS: Insulin LISPRO 300 UNITS/3 ML VIAL SUBQ SCH ×3 (08:46→18:07)
[2021-09-26] MEDS: Insulin DETEMIR 100 UNIT/ML X5UNITS SUBQ SCH (09:02)
[2021-09-26 20:01] VITALS: BP 120/60; PULSE 73; TEMP 97.6; O2SAT 93
== END 2021-09-26 20:53 | disposition other institution (70) | DRG 228 ==
LOC: CDU 04:53 → EMEROOARM 04:53 → SUATTDRO 07:37 → CDU 10:22 → 4WAOSI 14:24 → SUATTDRO 09-12 13:31 → 3BNU 09-15 06:51 → 2NNU 09-17 19:47
PROVIDERS: ADMIT Student in an Organized Health Care Education/Training Program; ATTEND Internal Medicine

== ENCOUNTER 2021-11-23 23:51 | Inpatient (IN) ==
[2021-11-24] MEDS ORDERED: Ipratropium/Albuterol Neb 3 ML IH ONE (00:58)
[2021-11-24 01:39] LABS: Mean Corpuscular HGB Conc 27.6 g/dL (31.6-35.5); Mean Corpuscular Volume 75.9 fL (83.0-100.0)
[2021-11-24 01:41] LABS: Hemoglobin 9.1 g/dL (11.5-15.4); Immature Platelets 10.4 % (1.1-6.1); Mean Corpuscular Hemoglobin 20.9 pg (28.0-33.3); Mean Platelet Volume 11.3 fL (9.4-12.4); Red Blood Count 4.35 M/mcL (3.82-4.97); Red Cell Distribution Width 20.1 % (11.5-14.5); White Blood Count 11.8 K/mcL (4.3-11.1)
[2021-11-24 01:49] LABS: BUN/Creatinine Ratio 18 (6-26); Blood Urea Nitrogen 19 mg/dL (8-23); Calcium 8.1 mg/dL (8.6-10.3); Carbon Dioxide 26 mEq/L (23-29); Chloride 101 mEq/L (98-107); Glucose 244 mg/dL (70-105); Osmolality,Calculated 284 (280-300); Sodium 132 mEq/L (136-145); eGFR For African Americans > 60 (> 60); eGFR For Non-African Americans 54 (> 60)
[2021-11-24 01:50] LABS: Troponin I < 0.03 ng/mL (< 0.04)
[2021-11-24] MEDS ORDERED: Azithromycin 250 MG TABLET PO ONE (02:24)
[2021-11-24] MEDS ORDERED: D5% in Water 1,000 ML IVC PRN (04:17)
[2021-11-24] MEDS ORDERED: Dextrose 4 GM Chewable Tablets PO PRN ×2 (04:17)
[2021-11-24] MEDS ORDERED: Naloxone 0.4 MG/ML INJ IVP PRN (04:17)
[2021-11-24] MEDS ORDERED: Ondansetron 4 MG/2 ML VIAL IVP PRN (04:17)
[2021-11-24] MEDS ORDERED: Melatonin 3 MG TABLET PO PRN (04:17)
[2021-11-24] MEDS ORDERED: *HR* Dextrose 50 % in Water (Syg) 50 ML SYRINGE IVP PRN (04:17)
[2021-11-24] MEDS: Ipratropium/Albuterol Neb 3 ML IH SCH ×6 (04:34→23:39)
[2021-11-24 04:38] LABS: ABG Base Excess 1 mEq/L (-2 to 3); ABG HCO3 26 mEq/L (21-27); ABG Oxygen Saturation 96 % (95-98); ABG PCO2 41 mmHg (35-45); ABG PO2 79 mmHg (85-104); ABG TCO2 27 mEq/L (20-26)
[2021-11-24 04:52] LABS: Influenza A PCR Negative (Negative); Influenza B PCR Negative (Negative); Resp. Syncytial Virus PCR Negative (Negative)
[2021-11-24 04:56] LABS: SARS-CoV-2 by PCR (In House) Negative (Negative)
[2021-11-24 06:39] LABS: INR 1.3; Prothrombin Time 14.7 Seconds (9.4-12.1)
[2021-11-24 06:47] LABS: Activated Partial Thrombo Time 33.3 Seconds (26.0-36.0)
[2021-11-24 06:53] LABS: Chol/HDL Ratio 2.1 (0-4.9); Cholesterol 82 mg/dL (< 200); HDL Cholesterol 39 mg/dL (40-59); LDL Cholesterol,Calculated 30 mg/dL (< 100); Magnesium 1.9 mg/dL (1.6-2.6); Phosphorous 4.3 mg/dL (2.7-4.5); Triglycerides 65 mg/dL (< 150)
[2021-11-24 06:54] LABS: Troponin I < 0.03 ng/mL (< 0.04)
[2021-11-24 07:08] LABS: Thyroid Stimulating Hormone 1.225 mcIU/mL (0.340-5.600)
[2021-11-24] MEDS: Budesonide/Formoterol 80/4.5 1 PUFF INH IH SCH ×2 (07:31→20:14)
[2021-11-24 07:40] LABS: Estimated Average Glucose 174 mg/dl; Hemoglobin A1C 7.7 %
[2021-11-24] MEDS ORDERED: Vancomycin 1,500 MG/265 ML IV.SOLN IVPB SCH (08:00)
[2021-11-24] MEDS: Insulin LISPRO 300 UNITS/3 ML VIAL SUBQ SCH ×3 (08:35→18:42)
[2021-11-24] MEDS ORDERED: cefTRIAXone 1,000 MG in 0.9 % Sodium Chloride 10 ML IVP SCH (09:00)
[2021-11-24] MEDS: *HR* LORazepam 0.5 MG TABLET PO PRN ×2 (09:19→13:09)
[2021-11-24] MEDS: MethylPREDNISolone 40 MG/ML VIAL IVP SCH ×2 (09:57→18:41)
[2021-11-24] MEDS: Meropenem 1,000 MG in Water for inj. (sterile) 20 ML IVP SCH ×3 (09:57→23:40)
[2021-11-24] MEDS: Furosemide 40 MG TABLET PO SCH ×3 (09:57→18:55)
[2021-11-24] MEDS: Acetaminophen 325 MG TABLET PO PRN ×2 (12:14→22:38)
[2021-11-24] MEDS ORDERED: *HR* HYDROcodone/Acet 5/325 mg TABLET PO PRN (12:18)
[2021-11-24] MEDS ORDERED: *HR* LORazepam 2 MG/ML VIAL IVP ONE (13:29)
[2021-11-24] MEDS: amLODIPine 5 MG TABLET PO SCH ×2 (15:58→18:55)
[2021-11-24] MEDS: Metoprolol XL (24 HR) Succ 50 MG TAB.ER.24H PO SCH ×4 (15:58→23:42)
[2021-11-24 20:15] LABS: ABG Base Excess 1 mEq/L (-2 to 3); ABG HCO3 26 mEq/L (21-27); ABG Oxygen Saturation 94 % (95-98); ABG PCO2 41 mmHg (35-45); ABG PH 7.41 pH Units (7.32-7.45); ABG PO2 69 mmHg (85-104); ABG TCO2 27 mEq/L (20-26)
[2021-11-24] MEDS: Isosorbide MONOnitrate (24 HR) 60 MG TAB.ER.24H PO SCH (21:42)
[2021-11-25] MEDS: Insulin LISPRO 300 UNITS/3 ML VIAL SUBQ SCH ×5 (00:12→21:30)
[2021-11-25 03:34] LABS: Basophils % 0.3 %; Eosinophils % 0.2 %; Hematocrit 30.4 % (35.3-44.9); Hemoglobin 8.4 g/dL (11.5-15.4); Immature Granulocytes % 0.9 % (0-4); Lymphocytes # 0.8 K/mcL (0.6-4.6); Lymphocytes % 6.2 %; Mean Corpuscular HGB Conc 27.6 g/dL (31.6-35.5); Mean Corpuscular Hemoglobin 20.6 pg (28.0-33.3); Mean Corpuscular Volume 74.7 fL (83.0-100.0); Mean Platelet Volume 11.3 fL (9.4-12.4); Monocytes # 0.7 K/mcL (0.0-1.3); Neutrophils # 11.5 K/mcL (1.6-8.9); Nucleated Red Blood Cells 0.2 /100 WBC (0); Platelet Count 217 K/mcL (140-400); Red Blood Count 4.07 M/mcL (3.82-4.97); Red Cell Distribution Width 19.9 % (11.5-14.5); Segmented Neutrophils % 87.4 %; White Blood Count 13.1 K/mcL (4.3-11.1)
[2021-11-25 03:50] LABS: BUN/Creatinine Ratio 24 (6-26); Blood Urea Nitrogen 19 mg/dL (8-23); Calcium 8.4 mg/dL (8.6-10.3); Carbon Dioxide 25 mEq/L (23-29); Chloride 102 mEq/L (98-107); Glucose 245 mg/dL (70-105); Magnesium 1.8 mg/dL (1.6-2.6); Osmolality,Calculated 290 (280-300); Potassium 4.7 mEq/L (3.5-5.1); Sodium 135 mEq/L (136-145); eGFR For African Americans > 60 (> 60); eGFR For Non-African Americans > 60 (> 60)
[2021-11-25 04:02] LABS: Anisocytosis 1+ (Not Present); Platelet Estimate Normal (Normal)
[2021-11-25] MEDS: Ipratropium/Albuterol Neb 3 ML IH SCH ×6 (04:06→23:41)
[2021-11-25] MEDS ORDERED: Azithromycin 250 MG TABLET PO SCH (04:30)
[2021-11-25] MEDS: MethylPREDNISolone 40 MG/ML VIAL IVP SCH (04:33)
[2021-11-25] MEDS: Acetaminophen 325 MG TABLET PO PRN (04:33)
[2021-11-25] MEDS: Budesonide/Formoterol 80/4.5 1 PUFF INH IH SCH ×2 (07:35→20:10)
[2021-11-25] MEDS ORDERED: Acetaminophen 325 MG TABLET PO PRN (08:59)
[2021-11-25] MEDS ORDERED: Ipratropium/Albuterol Neb 3 ML IH PRN (08:59)
[2021-11-25] MEDS ORDERED: Bisacodyl 10 MG RECTAL SUPPOSITORY RC PRN (08:59)
[2021-11-25] MEDS ORDERED: Furosemide 40 MG TABLET PO SCH (09:00)
[2021-11-25] MEDS ORDERED: Tiotropium 10 INH DOSE IH SCH (09:00)
[2021-11-25] MEDS: Furosemide 40 MG TABLET PO SCH ×2 (09:38→16:18)
[2021-11-25] MEDS: amLODIPine 5 MG TABLET PO SCH (09:38)
[2021-11-25] MEDS: Cholecalciferol (D-3) 1,000 UNIT (25MCG) TABLET PO SCH (09:38)
[2021-11-25] MEDS: Metoprolol XL (24 HR) Succ 50 MG TAB.ER.24H PO SCH (09:39)
[2021-11-25] MEDS: Isosorbide MONOnitrate (24 HR) 60 MG TAB.ER.24H PO SCH ×2 (09:40→21:30)
[2021-11-25] MEDS: Gabapentin 300 MG CAPSULE PO SCH ×3 (09:40→21:30)
[2021-11-25] MEDS: Meropenem 1,000 MG in Water for inj. (sterile) 20 ML IVP SCH ×2 (10:01→16:19)
[2021-11-25] MEDS: *HR* FentaNYL PATCH 50 MCG PATCH TD SCH (10:01)
[2021-11-25] MEDS: *HR* OxyCODONE/APAP 10/325 TABLET PO PRN ×2 (12:14→21:30)
[2021-11-25] MEDS: *HR* Rivaroxaban 10 MG TABLET PO SCH (18:15)
[2021-11-25] MEDS: Insulin DETEMIR 100 UNIT/ML X5UNITS SUBQ SCH (21:30)
[2021-11-25] MEDS: Melatonin 3 MG TABLET PO SCH (21:30)
[2021-11-25] MEDS: *HR* LORazepam 0.5 MG TABLET PO PRN (21:30)
[2021-11-26] MEDS: Meropenem 1,000 MG in Water for inj. (sterile) 20 ML IVP SCH ×3 (01:13→16:16)
[2021-11-26] MEDS: Ipratropium/Albuterol Neb 3 ML IH SCH ×6 (03:50→23:25)
[2021-11-26] MEDS: Budesonide/Formoterol 80/4.5 1 PUFF INH IH SCH ×2 (07:43→23:25)
[2021-11-26] MEDS: Insulin LISPRO 300 UNITS/3 ML VIAL SUBQ SCH ×4 (08:43→21:33)
[2021-11-26] MEDS: Gabapentin 300 MG CAPSULE PO SCH ×3 (08:44→21:17)
[2021-11-26] MEDS: Insulin DETEMIR 100 UNIT/ML X5UNITS SUBQ SCH ×2 (08:44→21:16)
[2021-11-26] MEDS: Cholecalciferol (D-3) 1,000 UNIT (25MCG) TABLET PO SCH (08:45)
[2021-11-26] MEDS: Furosemide 40 MG TABLET PO SCH ×2 (08:45→16:16)
[2021-11-26] MEDS: Isosorbide MONOnitrate (24 HR) 60 MG TAB.ER.24H PO SCH ×2 (08:45→21:18)
[2021-11-26] MEDS: amLODIPine 5 MG TABLET PO SCH (08:45)
[2021-11-26] MEDS: Metoprolol XL (24 HR) Succ 50 MG TAB.ER.24H PO SCH (08:56)
[2021-11-26] MEDS: *HR* OxyCODONE/APAP 10/325 TABLET PO PRN ×3 (09:00→21:16)
[2021-11-26] MEDS: *HR* LORazepam 0.5 MG TABLET PO PRN ×3 (09:01→21:18)
[2021-11-26] MEDS: Simethicone 80 MG TAB.CHEW PO PRN (16:16)
[2021-11-26] MEDS: *HR* Rivaroxaban 10 MG TABLET PO SCH (17:28)
[2021-11-26] MEDS: Melatonin 3 MG TABLET PO SCH (21:17)
[2021-11-27] MEDS: Piperacillin/Tazobactam 3.375 GM in 0.9 % Sodium Chloride Mini Bag 100 ML IVPB SCH ×4 (01:07→23:41)
[2021-11-27] MEDS: Ipratropium/Albuterol Neb 3 ML IH SCH ×6 (04:06→23:07)
[2021-11-27 05:09] LABS: Basophils # 0.1 K/mcL (0.0-0.2); Basophils % 0.8 %; Eosinophils # 0.4 K/mcL (0.0-0.6); Eosinophils % 3.9 %; Hematocrit 31.6 % (35.3-44.9); Hemoglobin 8.3 g/dL (11.5-15.4); Immature Granulocytes % 0.6 % (0-4); Lymphocytes # 2.4 K/mcL (0.6-4.6); Lymphocytes % 22.7 %; Mean Corpuscular HGB Conc 26.3 g/dL (31.6-35.5); Mean Corpuscular Hemoglobin 20.6 pg (28.0-33.3); Mean Corpuscular Volume 78.6 fL (83.0-100.0); Monocytes # 0.9 K/mcL (0.0-1.3); Monocytes % 8.9 %; Neutrophils # 6.6 K/mcL (1.6-8.9); Platelet Count 223 K/mcL (140-400); Red Blood Count 4.02 M/mcL (3.82-4.97); Segmented Neutrophils % 63.1 %; White Blood Count 10.5 K/mcL (4.3-11.1)
[2021-11-27 05:22] LABS: BUN/Creatinine Ratio 35 (6-26); Blood Urea Nitrogen 29 mg/dL (8-23); Calcium 8.9 mg/dL (8.6-10.3); Carbon Dioxide 29 mEq/L (23-29); Chloride 104 mEq/L (98-107); Glucose 139 mg/dL (70-105); Magnesium 1.8 mg/dL (1.6-2.6); Osmolality,Calculated 294 (280-300); Potassium 4.9 mEq/L (3.5-5.1); Sodium 138 mEq/L (136-145); eGFR For African Americans > 60 (> 60); eGFR For Non-African Americans > 60 (> 60)
[2021-11-27 05:49] LABS: Anisocytosis 2+ (Not Present); Hypochromasia Present (Not Present); Platelet Estimate Normal (Normal); Poikilocytosis 1+ (Not Present); Polychromasia 1+ (Not Present); Target Cells 1+ (Not Present)
[2021-11-27 05:50] LABS: Microcytosis Present (Not Present)
[2021-11-27] MEDS: Cholecalciferol (D-3) 1,000 UNIT (25MCG) TABLET PO SCH (08:05)
[2021-11-27] MEDS: Isosorbide MONOnitrate (24 HR) 60 MG TAB.ER.24H PO SCH ×2 (08:05→21:13)
[2021-11-27] MEDS: Insulin DETEMIR 100 UNIT/ML X5UNITS SUBQ SCH ×2 (08:05→20:51)
[2021-11-27] MEDS: Furosemide 40 MG TABLET PO SCH ×2 (08:05→17:39)
[2021-11-27] MEDS: Gabapentin 300 MG CAPSULE PO SCH ×3 (08:05→20:50)
[2021-11-27] MEDS: amLODIPine 5 MG TABLET PO SCH (08:06)
[2021-11-27] MEDS: Insulin LISPRO 300 UNITS/3 ML VIAL SUBQ SCH ×4 (08:06→20:28)
[2021-11-27] MEDS: Metoprolol XL (24 HR) Succ 50 MG TAB.ER.24H PO SCH (08:06)
[2021-11-27] MEDS: *HR* OxyCODONE/APAP 10/325 TABLET PO PRN ×3 (08:14→20:55)
[2021-11-27] MEDS: *HR* LORazepam 0.5 MG TABLET PO PRN ×3 (08:14→20:55)
[2021-11-27] MEDS: Budesonide/Formoterol 80/4.5 1 PUFF INH IH SCH ×2 (08:22→19:41)
[2021-11-27] MEDS: Simethicone 80 MG TAB.CHEW PO PRN (17:39)
[2021-11-27] MEDS: *HR* Rivaroxaban 10 MG TABLET PO SCH (17:39)
[2021-11-27] MEDS: Melatonin 3 MG TABLET PO SCH (20:50)
[2021-11-28] MEDS: Ipratropium/Albuterol Neb 3 ML IH SCH ×6 (03:33→23:56)
[2021-11-28] MEDS: *HR* OxyCODONE/APAP 10/325 TABLET PO PRN ×4 (04:36→18:32)
[2021-11-28 06:27] LABS: BUN/Creatinine Ratio 34 (6-26); Blood Urea Nitrogen 35 mg/dL (8-23); Calcium 8.7 mg/dL (8.6-10.3); Carbon Dioxide 31 mEq/L (23-29); Chloride 102 mEq/L (98-107); Glucose 259 mg/dL (70-105); Osmolality,Calculated 305 (280-300); Potassium 4.1 mEq/L (3.5-5.1); Sodium 139 mEq/L (136-145); eGFR For African Americans > 60 (> 60); eGFR For Non-African Americans 54 (> 60)
[2021-11-28] MEDS: Budesonide/Formoterol 80/4.5 1 PUFF INH IH SCH ×2 (07:32→20:12)
[2021-11-28] MEDS: Piperacillin/Tazobactam 3.375 GM in 0.9 % Sodium Chloride Mini Bag 100 ML IVPB SCH (07:49)
[2021-11-28] MEDS: Insulin LISPRO 300 UNITS/3 ML VIAL SUBQ SCH ×4 (07:50→20:55)
[2021-11-28] MEDS: amLODIPine 5 MG TABLET PO SCH (07:51)
[2021-11-28] MEDS: Gabapentin 300 MG CAPSULE PO SCH ×3 (07:51→20:53)
[2021-11-28] MEDS: Insulin DETEMIR 100 UNIT/ML X5UNITS SUBQ SCH ×2 (07:51→20:54)
[2021-11-28] MEDS: Isosorbide MONOnitrate (24 HR) 60 MG TAB.ER.24H PO SCH ×2 (07:51→20:53)
[2021-11-28] MEDS: Metoprolol XL (24 HR) Succ 50 MG TAB.ER.24H PO SCH (07:52)
[2021-11-28] MEDS: *HR* LORazepam 0.5 MG TABLET PO PRN ×2 (07:52→13:56)
[2021-11-28] MEDS: Cholecalciferol (D-3) 1,000 UNIT (25MCG) TABLET PO SCH (07:52)
[2021-11-28] MEDS: Furosemide 40 MG TABLET PO SCH ×2 (07:53→16:58)
[2021-11-28] MEDS: *HR* FentaNYL PATCH 50 MCG PATCH TD SCH (10:16)
[2021-11-28] MEDS: levoFLOXacin 500 MG TABLET PO SCH (11:39)
[2021-11-28] MEDS: *HR* Rivaroxaban 10 MG TABLET PO SCH (16:58)
[2021-11-28] MEDS: Acetaminophen 325 MG TABLET PO PRN (17:09)
[2021-11-28] MEDS: Melatonin 3 MG TABLET PO SCH (20:53)
[2021-11-29 01:36] LABS: BUN/Creatinine Ratio 36 (6-26); Blood Urea Nitrogen 35 mg/dL (8-23); Calcium 8.6 mg/dL (8.6-10.3); Carbon Dioxide 33 mEq/L (23-29); Chloride 102 mEq/L (98-107); Glucose 167 mg/dL (70-105); Osmolality,Calculated 300 (280-300); Potassium 4.6 mEq/L (3.5-5.1); Sodium 139 mEq/L (136-145); eGFR For African Americans > 60 (> 60); eGFR For Non-African Americans 59 (> 60)
[2021-11-29] MEDS: Ipratropium/Albuterol Neb 3 ML IH SCH ×6 (04:28→23:54)
[2021-11-29] MEDS: *HR* OxyCODONE/APAP 10/325 TABLET PO PRN ×4 (06:45→20:06)
[2021-11-29] MEDS: Insulin LISPRO 300 UNITS/3 ML VIAL SUBQ SCH ×4 (07:35→20:08)
[2021-11-29] MEDS: Cholecalciferol (D-3) 1,000 UNIT (25MCG) TABLET PO SCH (07:36)
[2021-11-29] MEDS: Insulin DETEMIR 100 UNIT/ML X5UNITS SUBQ SCH ×2 (07:36→20:06)
[2021-11-29] MEDS: levoFLOXacin 500 MG TABLET PO SCH (07:37)
[2021-11-29] MEDS: Gabapentin 300 MG CAPSULE PO SCH ×3 (07:37→20:06)
[2021-11-29] MEDS: Isosorbide MONOnitrate (24 HR) 60 MG TAB.ER.24H PO SCH ×2 (07:37→20:06)
[2021-11-29] MEDS: Metoprolol XL (24 HR) Succ 50 MG TAB.ER.24H PO SCH (07:37)
[2021-11-29] MEDS: Furosemide 40 MG TABLET PO SCH ×2 (07:38→16:50)
[2021-11-29] MEDS: *HR* LORazepam 0.5 MG TABLET PO PRN ×3 (07:38→20:07)
[2021-11-29] MEDS: amLODIPine 5 MG TABLET PO SCH (07:38)
[2021-11-29] MEDS: Budesonide/Formoterol 80/4.5 1 PUFF INH IH SCH ×2 (07:47→19:52)
[2021-11-29] MEDS: polyethylene glycoL 3350 17 GM POWD.PACK PO SCH (16:50)
[2021-11-29] MEDS: *HR* Rivaroxaban 10 MG TABLET PO SCH (16:50)
[2021-11-29] MEDS: Melatonin 3 MG TABLET PO SCH (20:07)
[2021-11-30 01:46] LABS: Calcium 8.6 mg/dL (8.6-10.3); Potassium 4.6 mEq/L (3.5-5.1)
[2021-11-30] MEDS: *HR* OxyCODONE/APAP 10/325 TABLET PO PRN ×4 (02:05→18:37)
[2021-11-30] MEDS: Ipratropium/Albuterol Neb 3 ML IH SCH ×6 (03:49→23:22)
[2021-11-30] MEDS: *HR* LORazepam 0.5 MG TABLET PO PRN ×4 (06:22→23:50)
[2021-11-30] MEDS: Budesonide/Formoterol 80/4.5 1 PUFF INH IH SCH ×2 (07:33→19:42)
[2021-11-30] MEDS: Insulin LISPRO 300 UNITS/3 ML VIAL SUBQ SCH ×4 (07:34→21:08)
[2021-11-30] MEDS: Insulin DETEMIR 100 UNIT/ML X5UNITS SUBQ SCH ×2 (07:34→21:08)
[2021-11-30] MEDS: amLODIPine 5 MG TABLET PO SCH (07:35)
[2021-11-30] MEDS: Furosemide 40 MG TABLET PO SCH ×2 (07:35→16:45)
[2021-11-30] MEDS: Cholecalciferol (D-3) 1,000 UNIT (25MCG) TABLET PO SCH (07:35)
[2021-11-30] MEDS: Gabapentin 300 MG CAPSULE PO SCH ×3 (07:36→21:07)
[2021-11-30] MEDS: Metoprolol XL (24 HR) Succ 50 MG TAB.ER.24H PO SCH (07:36)
[2021-11-30] MEDS: levoFLOXacin 500 MG TABLET PO SCH (07:36)
[2021-11-30] MEDS: Isosorbide MONOnitrate (24 HR) 60 MG TAB.ER.24H PO SCH ×2 (07:36→21:07)
[2021-11-30] MEDS: polyethylene glycoL 3350 17 GM POWD.PACK PO SCH (07:36)
[2021-11-30] MEDS: *HR* Rivaroxaban 10 MG TABLET PO SCH (16:45)
[2021-11-30] MEDS: Melatonin 3 MG TABLET PO SCH (21:07)
[2021-12-01] MEDS: *HR* OxyCODONE/APAP 10/325 TABLET PO PRN ×2 (02:09→10:28)
[2021-12-01] MEDS: Simethicone 80 MG TAB.CHEW PO PRN (02:09)
[2021-12-01] MEDS: Ipratropium/Albuterol Neb 3 ML IH SCH ×3 (03:56→11:06)
[2021-12-01 07:11] VITALS: BP 110/69; PULSE 93; TEMP 99.5; O2SAT 94
[2021-12-01] MEDS: Insulin LISPRO 300 UNITS/3 ML VIAL SUBQ SCH ×2 (08:43→11:17)
[2021-12-01] MEDS: Metoprolol XL (24 HR) Succ 50 MG TAB.ER.24H PO SCH (08:44)
[2021-12-01] MEDS: Furosemide 40 MG TABLET PO SCH (08:44)
[2021-12-01] MEDS: amLODIPine 5 MG TABLET PO SCH (08:44)
[2021-12-01] MEDS: Isosorbide MONOnitrate (24 HR) 60 MG TAB.ER.24H PO SCH (08:44)
[2021-12-01] MEDS: Gabapentin 300 MG CAPSULE PO SCH (08:44)
[2021-12-01] MEDS: Cholecalciferol (D-3) 1,000 UNIT (25MCG) TABLET PO SCH (08:44)
[2021-12-01] MEDS: *HR* FentaNYL PATCH 50 MCG PATCH TD SCH (08:45)
[2021-12-01] MEDS: polyethylene glycoL 3350 17 GM POWD.PACK PO SCH (08:45)
[2021-12-01] MEDS: Insulin DETEMIR 100 UNIT/ML X5UNITS SUBQ SCH (08:52)
[2021-12-01] MEDS ORDERED: levoFLOXacin 750 MG TABLET PO SCH (09:00)
[2021-12-01] MEDS: Budesonide/Formoterol 80/4.5 1 PUFF INH IH SCH (11:06)
== END 2021-12-01 11:30 | disposition hospice, home (50) | DRG 291 ==
LOC: EMEROOARM 23:51 → 2ANU 23:51 → SUATTDRO 11-24 04:15 → 2ANU 11-24 04:19 → SUATTDRO 11-24 05:24 → 2ANU 11-24 05:39
PROVIDERS: ADMIT Internal Medicine; ATTEND Hospitalist

== ENCOUNTER 2022-01-30 02:21 | Inpatient (IN) ==
[2022-01-30] MEDS ORDERED: Ipratropium/Albuterol Neb 3 ML IH ONE (03:32)
[2022-01-30 04:00] LABS: VBG HCO3 25 mEq/L (21-27); VBG PCO2 47 mmHg (41-51); VBG PH 7.34 pH Units (7.32-7.42); VBG PO2 106 mmHg (25-50)
[2022-01-30 04:02] LABS: Basophils # 0.1 K/mcL (0.0-0.2); Basophils % 0.9 %; Eosinophils # 0.5 K/mcL (0.0-0.6); Eosinophils % 5.7 %; Hematocrit 36.8 % (35.3-44.9); Hemoglobin 10.8 g/dL (11.5-15.4); Immature Granulocytes % 0.6 % (0-4); Lymphocytes # 1.6 K/mcL (0.6-4.6); Lymphocytes % 16.9 %; Mean Corpuscular HGB Conc 29.3 g/dL (31.6-35.5); Mean Corpuscular Volume 88.5 fL (83.0-100.0); Mean Platelet Volume 10.5 fL (9.4-12.4); Monocytes # 0.5 K/mcL (0.0-1.3); Monocytes % 5.7 %; Neutrophils # 6.5 K/mcL (1.6-8.9); Platelet Count 232 K/mcL (140-400); Red Blood Count 4.16 M/mcL (3.82-4.97); Red Cell Distribution Width 26.4 % (11.5-14.5); Segmented Neutrophils % 70.2 %; White Blood Count 9.3 K/mcL (4.3-11.1)
[2022-01-30 04:09] LABS: INR 1.2
[2022-01-30 04:12] LABS: Activated Partial Thrombo Time 34.2 Seconds (26.0-36.0)
[2022-01-30 04:29] LABS: Alanine Aminotransferase 7 Units/L (7-52); Albumin/Globulin Ratio 0.9 (1.1-2.2); Alkaline Phosphatase 97 Units/L (34-104); Aspartate Amino Transferase 11 Units/L (13-39); BUN/Creatinine Ratio 20 (6-26); Bilirubin,Direct 0.1 mg/dL (0.0-0.2); Bilirubin,Indirect 0.3 mg/dL (0.0-1.0); Bilirubin,Total 0.4 mg/dL (0.3-1.0); Blood Urea Nitrogen 21 mg/dL (8-23); Calcium 8.5 mg/dL (8.6-10.3); Carbon Dioxide 25 mEq/L (23-29); Chloride 106 mEq/L (98-107); Globulin 3.5 g/dL (2.4-3.5); Glucose 118 mg/dL (70-105); Osmolality,Calculated 284 (280-300); Potassium 5.1 mEq/L (3.5-5.1); Sodium 135 mEq/L (136-145); Total Protein 6.5 g/dL (6.4-8.9); Troponin I < 0.03 ng/mL (< 0.04); eGFR For African Americans > 60 (> 60); eGFR For Non-African Americans 52 (> 60)
[2022-01-30 04:50] LABS: Influenza A PCR Negative (Negative); Influenza B PCR Negative (Negative); Resp. Syncytial Virus PCR Negative (Negative)
[2022-01-30 04:54] LABS: Anisocytosis 3+ (Not Present); Hypochromasia Present (Not Present); Platelet Estimate Normal (Normal)
[2022-01-30 04:55] LABS: SARS-CoV-2 by PCR (In House) Negative (Negative)
[2022-01-30] MEDS ORDERED: Furosemide 40 MG/4 ML VIAL IVP ONE (05:46)
[2022-01-30] MEDS ORDERED: Nitroglycerin 0.4 MG TAB.SUBL SL PRN (06:33)
[2022-01-30] MEDS ORDERED: Nitroglycerin 0.4 MG TAB.SUBL SL ONE (06:36)
[2022-01-30] MEDS ORDERED: Nitroglycerin 1 INCH/GM PACKET TP ONE (06:56)
[2022-01-30] MEDS ORDERED: Acetaminophen 325 MG TABLET PO PRN (08:20)
[2022-01-30] MEDS ORDERED: Naloxone 0.4 MG/ML INJ IVP PRN (08:20)
[2022-01-30] MEDS ORDERED: *HR* Dextrose 50 % in Water (Syg) 50 ML SYRINGE IVP PRN (11:00)
[2022-01-30] MEDS ORDERED: D5% in Water 1,000 ML IVC PRN (11:00)
[2022-01-30] MEDS ORDERED: Dextrose Gel 15 GM/37.5 ML TUBE PO PRN ×2 (11:00)
[2022-01-30] MEDS: Insulin LISPRO 300 UNITS/3 ML VIAL SUBQ SCH ×2 (12:34→16:51)
[2022-01-30] MEDS: Furosemide 20 MG/2 ML VIAL IVP SCH ×2 (12:55→19:57)
[2022-01-30] MEDS: *HR* HYDROcodone/Acet 5/325 mg TABLET PO PRN ×2 (14:59→21:21)
[2022-01-30] MEDS ORDERED: Ipratropium/Albuterol Neb 3 ML IH PRN (18:41)
[2022-01-30] MEDS ORDERED: *HR* FentaNYL PATCH 50 MCG PATCH TD SCH (18:45)
[2022-01-30] MEDS: Gabapentin 300 MG CAPSULE PO SCH (19:57)
[2022-01-30] MEDS: Budesonide/Formoterol 160/4.5 1 PUFF INH IH SCH (20:09)
[2022-01-30] MEDS ORDERED: *HR* LORazepam 2 MG/ML VIAL IVP ONE (22:13)
[2022-01-31] MEDS: Insulin LISPRO 300 UNITS/3 ML VIAL SUBQ SCH ×5 (00:41→16:19)
[2022-01-31 04:34] LABS: Basophils # 0.1 K/mcL (0.0-0.2); Basophils % 0.9 %; Eosinophils # 0.4 K/mcL (0.0-0.6); Hematocrit 39.7 % (35.3-44.9); Hemoglobin 11.7 g/dL (11.5-15.4); Immature Granulocytes % 0.4 % (0-4); Lymphocytes # 1.8 K/mcL (0.6-4.6); Lymphocytes % 21.9 %; Mean Corpuscular HGB Conc 29.5 g/dL (31.6-35.5); Mean Corpuscular Hemoglobin 25.8 pg (28.0-33.3); Mean Corpuscular Volume 87.6 fL (83.0-100.0); Mean Platelet Volume 10.4 fL (9.4-12.4); Monocytes # 0.4 K/mcL (0.0-1.3); Monocytes % 5.4 %; Neutrophils # 5.4 K/mcL (1.6-8.9); Platelet Count 226 K/mcL (140-400); Red Blood Count 4.53 M/mcL (3.82-4.97); Red Cell Distribution Width 25.8 % (11.5-14.5); Segmented Neutrophils % 66.4 %; White Blood Count 8.1 K/mcL (4.3-11.1)
[2022-01-31 04:56] LABS: BUN/Creatinine Ratio 23 (6-26); Blood Urea Nitrogen 18 mg/dL (8-23); Calcium 8.8 mg/dL (8.6-10.3); Carbon Dioxide 28 mEq/L (23-29); Chloride 105 mEq/L (98-107); Glucose 117 mg/dL (70-105); Magnesium 1.8 mg/dL (1.6-2.6); Osmolality,Calculated 291 (280-300); Phosphorous 4.4 mg/dL (2.7-4.5); Potassium 4.5 mEq/L (3.5-5.1); Sodium 139 mEq/L (136-145); eGFR For African Americans > 60 (> 60); eGFR For Non-African Americans > 60 (> 60)
[2022-01-31 05:17] LABS: Anisocytosis 2+ (Not Present); Platelet Estimate Normal (Normal)
[2022-01-31 05:18] LABS: Hypochromasia Present (Not Present); Macrocytosis Present (Not Present); Microcytosis Present (Not Present)
[2022-01-31] MEDS: *HR* HYDROcodone/Acet 5/325 mg TABLET PO PRN ×3 (06:15→21:32)
[2022-01-31] MEDS: Budesonide/Formoterol 160/4.5 1 PUFF INH IH SCH (07:05)
[2022-01-31] MEDS: Ondansetron ODT 4 MG TAB.RAPDIS SL PRN (08:08)
[2022-01-31] MEDS: Metoprolol XL (24 HR) Succ 50 MG TAB.ER.24H PO SCH (08:08)
[2022-01-31] MEDS: amLODIPine 5 MG TABLET PO SCH (08:08)
[2022-01-31] MEDS: *HR* Rivaroxaban 10 MG TABLET PO SCH (08:08)
[2022-01-31] MEDS: Gabapentin 300 MG CAPSULE PO SCH ×3 (08:08→21:32)
[2022-01-31] MEDS: Furosemide 40 MG/4 ML VIAL IVP SCH (08:09)
[2022-01-31] MEDS: *HR* LORazepam 0.5 MG TABLET PO PRN ×2 (12:10→16:56)
[2022-01-31] MEDS: Nicotine 7 MG PATCH.TD24 TD SCH (12:10)
[2022-01-31] MEDS: Azithromycin 500 MG in 0.9 % Sodium Chloride 250 ML IVPB SCH (13:18)
[2022-01-31] MEDS: Ipratropium/Albuterol Neb 3 ML IH SCH ×2 (15:34→22:05)
[2022-01-31] MEDS: Budesonide Neb 0.5 MG/2 ML IH SCH (22:05)
[2022-02-01] MEDS: Insulin LISPRO 300 UNITS/3 ML VIAL SUBQ SCH ×4 (01:19→17:02)
[2022-02-01] MEDS: Ipratropium/Albuterol Neb 3 ML IH SCH ×4 (03:48→22:28)
[2022-02-01] MEDS: *HR* LORazepam 0.5 MG TABLET PO PRN ×3 (04:45→15:14)
[2022-02-01] MEDS: Metoprolol XL (24 HR) Succ 50 MG TAB.ER.24H PO SCH (08:17)
[2022-02-01] MEDS: Gabapentin 300 MG CAPSULE PO SCH ×3 (08:17→21:52)
[2022-02-01] MEDS: *HR* HYDROcodone/Acet 5/325 mg TABLET PO PRN ×2 (08:17→18:26)
[2022-02-01] MEDS: amLODIPine 5 MG TABLET PO SCH (08:18)
[2022-02-01] MEDS: Furosemide 40 MG/4 ML VIAL IVP SCH (08:18)
[2022-02-01] MEDS: Nicotine 7 MG PATCH.TD24 TD SCH ×2 (08:18→08:26)
[2022-02-01] MEDS: *HR* Rivaroxaban 10 MG TABLET PO SCH (08:18)
[2022-02-01] MEDS: Budesonide Neb 0.5 MG/2 ML IH SCH ×2 (09:52→22:28)
[2022-02-01] MEDS: Ondansetron ODT 4 MG TAB.RAPDIS SL PRN (10:25)
[2022-02-01] MEDS: Azithromycin 500 MG in 0.9 % Sodium Chloride 250 ML IVPB SCH (13:14)
[2022-02-01] MEDS: Nystatin POWDER 30 GM BOTTLE TP SCH ×5 (14:03→21:52)
[2022-02-02] MEDS: *HR* HYDROcodone/Acet 5/325 mg TABLET PO PRN ×2 (01:07→08:21)
[2022-02-02] MEDS: *HR* LORazepam 0.5 MG TABLET PO PRN (01:07)
[2022-02-02] MEDS: Insulin LISPRO 300 UNITS/3 ML VIAL SUBQ SCH ×3 (02:17→12:08)
[2022-02-02] MEDS: Ipratropium/Albuterol Neb 3 ML IH SCH ×2 (04:18→10:49)
[2022-02-02 04:50] LABS: Basophils % 0.6 %
[2022-02-02 04:52] LABS: Basophils # 0.1 K/mcL (0.0-0.2); Eosinophils # 0.6 K/mcL (0.0-0.6); Hemoglobin 10.9 g/dL (11.5-15.4); Immature Granulocytes % 0.5 % (0-4); Immature Platelets 6.4 % (1.1-6.1); Lymphocytes # 1.3 K/mcL (0.6-4.6); Lymphocytes % 13.7 %; Mean Corpuscular HGB Conc 28.7 g/dL (31.6-35.5); Mean Corpuscular Hemoglobin 25.9 pg (28.0-33.3); Mean Corpuscular Volume 90.3 fL (83.0-100.0); Mean Platelet Volume 10.4 fL (9.4-12.4); Monocytes # 0.6 K/mcL (0.0-1.3); Monocytes % 6.2 %; Platelet Count 208 K/mcL (140-400); Red Blood Count 4.21 M/mcL (3.82-4.97); White Blood Count 9.5 K/mcL (4.3-11.1)
[2022-02-02 04:54] LABS: Neutrophils # 6.9 K/mcL (1.6-8.9)
[2022-02-02 04:58] LABS: Calcium 8.5 mg/dL (8.6-10.3); Magnesium 1.6 mg/dL (1.6-2.6)
[2022-02-02 05:49] LABS: Anisocytosis 2+ (Not Present); Hypochromasia Present (Not Present); Large Platelets Present (Not Present); Microcytosis Present (Not Present); Platelet Estimate Normal (Normal)
[2022-02-02] MEDS: amLODIPine 5 MG TABLET PO SCH (08:22)
[2022-02-02] MEDS: Gabapentin 300 MG CAPSULE PO SCH (08:22)
[2022-02-02] MEDS: Metoprolol XL (24 HR) Succ 50 MG TAB.ER.24H PO SCH (08:22)
[2022-02-02] MEDS: *HR* Rivaroxaban 10 MG TABLET PO SCH (08:23)
[2022-02-02] MEDS: Nicotine 7 MG PATCH.TD24 TD SCH (08:29)
[2022-02-02 10:45] VITALS: BP 137/72; PULSE 86; TEMP 97.7; O2SAT 94
[2022-02-02] MEDS: Budesonide Neb 0.5 MG/2 ML IH SCH (10:49)
[2022-02-02] MEDS: Nystatin POWDER 30 GM BOTTLE TP SCH (12:09)
[2022-02-02] MEDS: Azithromycin 500 MG in 0.9 % Sodium Chloride 250 ML IVPB SCH (12:15)
== END 2022-02-02 13:30 | disposition home health service (06) | DRG 291 ==
LOC: 2ANU 02:21 → EMEROOARM 02:21 → SUATTDRO 08:01 → 2ANU 09:08
PROVIDERS: ADMIT Internal Medicine; ATTEND Pharmacist

== ENCOUNTER 2022-02-16 17:38 | Observation (INO) ==
[2022-02-16 19:00] LABS: Basophils # 0.1 K/mcL (0.0-0.2); Basophils % 0.3 %; Eosinophils % 0.1 %; Hematocrit 41.3 % (35.3-44.9); Hemoglobin 12.1 g/dL (11.5-15.4); Immature Granulocytes % 0.6 % (0-4); Lymphocytes # 1.1 K/mcL (0.6-4.6); Lymphocytes % 5.2 %; Mean Corpuscular HGB Conc 29.3 g/dL (31.6-35.5); Mean Corpuscular Hemoglobin 26.3 pg (28.0-33.3); Mean Corpuscular Volume 89.8 fL (83.0-100.0); Monocytes # 0.6 K/mcL (0.0-1.3); Monocytes % 3.2 %; Neutrophils # 18.4 K/mcL (1.6-8.9); Platelet Count 300 K/mcL (140-400); Red Cell Distribution Width 22.7 % (11.5-14.5); Segmented Neutrophils % 90.6 %; White Blood Count 20.3 K/mcL (4.3-11.1)
[2022-02-16 19:11] LABS: Activated Partial Thrombo Time 34.7 Seconds (26.0-36.0); INR 1.1; Prothrombin Time 11.8 Seconds (9.4-12.1)
[2022-02-16 19:12] LABS: Bacteria,Urine Few per hpf (None-Few); Bilirubin,Urine Negative (Negative); Blood,Urine Trace (Negative); Clarity,Urine Turbid (Clear); Color,Urine Yellow (Yellow); Glucose,Urine (UA) Normal (Normal); Ketones,Urine Negative (Negative); Leukocyte Esterase,Urine Moderate (Negative); Mucus,Urine Few per lpf (None-Few); Nitrite,Urine Negative (Negative); PH,Urine 6.5 pH Units (5.0-8.0); Protein,Urine >=300 mg/dL (Neg-Trace); Specific Gravity,Urine 1.015 (1.010-1.025); Squamous Epithelial Cell,Urine Few per hpf (None-Few); Urobilinogen,Urine Normal (Normal); WBC,Urine 30-50 per hpf (0-3)
[2022-02-16 19:22] LABS: Amphetamine Screen,Urine Negative ng/mL (Cutoff=1000); Barbiturate Screen,Urine Negative ng/mL (Cutoff=200); Benzodiazepines Screen,Urine Negative ng/mL (Cutoff=200); Cannabinoid Screen,Urine Negative ng/mL (Cutoff = 50); Cocaine Screen,Urine Negative ng/mL (Cutoff= 300); Opiate Screen,Urine Negative ng/mL (Cutoff=300); Phencyclidine Screen,Urine Negative ng/mL (Cutoff=25)
[2022-02-16 19:28] LABS: Alanine Aminotransferase 9 Units/L (7-52); Albumin 2.9 g/dL (3.5-5.7); Albumin/Globulin Ratio 0.7 (1.1-2.2); Alkaline Phosphatase 119 Units/L (34-104); Aspartate Amino Transferase 15 Units/L (13-39); BUN/Creatinine Ratio 26 (6-26); Bilirubin,Direct 0.2 mg/dL (0.0-0.2); Bilirubin,Indirect 0.1 mg/dL (0.0-1.0); Bilirubin,Total 0.3 mg/dL (0.3-1.0); Blood Urea Nitrogen 22 mg/dL (8-23); Calcium 8.8 mg/dL (8.6-10.3); Carbon Dioxide 25 mEq/L (23-29); Chloride 108 mEq/L (98-107); Ethanol < 10 mg/dL (Less than 10); Glucose 165 mg/dL (70-105); Osmolality,Calculated 297 (280-300); Potassium 4.7 mEq/L (3.5-5.1); Sodium 140 mEq/L (136-145); Total Protein 6.9 g/dL (6.4-8.9); Troponin I < 0.03 ng/mL (< 0.04); eGFR For African Americans > 60 (> 60); eGFR For Non-African Americans > 60 (> 60)
[2022-02-16 19:46] LABS: ABG Base Excess 0 mEq/L (-2 to 3); ABG HCO3 26 mEq/L (21-27); ABG Oxygen Saturation 93 % (95-98); ABG PCO2 48 mmHg (35-45); ABG PH 7.35 pH Units (7.32-7.45); ABG PO2 70 mmHg (85-104); ABG TCO2 28 mEq/L (20-26)
[2022-02-16] MEDS ORDERED: levoFLOXacin 750 MG/150 ML 750 MG/150 ML BAG IVPB ONE (19:57)
[2022-02-16 21:00] LABS: Influenza A PCR Negative (Negative); Influenza B PCR Negative (Negative); Resp. Syncytial Virus PCR Negative (Negative); SARS-CoV-2 by PCR (In House) Negative (Negative)
[2022-02-16] MEDS ORDERED: Furosemide 40 MG/4 ML VIAL IVP SCH (22:00)
[2022-02-16] MEDS ORDERED: Melatonin 3 MG TABLET PO PRN (22:10)
[2022-02-16] MEDS ORDERED: Naloxone 0.4 MG/ML INJ IVP PRN (22:10)
[2022-02-16] MEDS ORDERED: Ondansetron 4 MG/2 ML VIAL IVP PRN (22:10)
[2022-02-16] MEDS ORDERED: D5% in Water 1,000 ML IVC PRN (23:27)
[2022-02-16] MEDS ORDERED: *HR* Dextrose 50 % in Water (Syg) 50 ML SYRINGE IVP PRN (23:27)
[2022-02-16] MEDS ORDERED: Dextrose Gel 15 GM/37.5 ML TUBE PO PRN ×2 (23:27)
[2022-02-16] MEDS ORDERED: *HR* Dextrose 50 % in Water (Vial) 50 ML VIAL ONE (23:31)
[2022-02-17] MEDS: Acetaminophen 325 MG TABLET PO PRN ×2 (02:34→10:09)
[2022-02-17] MEDS: Insulin LISPRO 300 UNITS/3 ML VIAL SUBQ SCH ×4 (07:54→22:12)
[2022-02-17] MEDS: Furosemide 40 MG/4 ML VIAL IVP SCH ×2 (08:22→20:36)
[2022-02-17] MEDS: Metoprolol XL (24 HR) Succ 50 MG TAB.ER.24H PO SCH (12:55)
[2022-02-17] MEDS: amLODIPine 5 MG TABLET PO SCH (12:55)
[2022-02-17] MEDS: *HR* Methadone 10 MG TABLET PO SCH ×2 (12:56→20:37)
[2022-02-17] MEDS: Gabapentin 400 MG CAPSULE PO SCH ×2 (14:36→20:36)
[2022-02-17] MEDS: *HR* Rivaroxaban 10 MG TABLET PO SCH (17:33)
[2022-02-17] MEDS ORDERED: *HR* Heparin 5,000 UNIT/ML VIAL SQ SCH (18:00)
[2022-02-17] MEDS ORDERED: Budesonide Neb 0.5 MG/2 ML IH ONE (20:00)
[2022-02-17] MEDS ORDERED: levoFLOXacin 750 MG/150 ML 750 MG/150 ML BAG IVPB SCH (20:00)
[2022-02-17] MEDS: Budesonide Neb 0.5 MG/2 ML IH SCH (20:01)
[2022-02-17] MEDS: Budesonide/Formoterol 160/4.5 1 PUFF INH IH SCH (20:02)
[2022-02-17] MEDS: Isosorbide MONOnitrate (24 HR) 60 MG TAB.ER.24H PO SCH (20:37)
[2022-02-17] MEDS: Melatonin 3 MG TABLET PO SCH (20:37)
[2022-02-17] MEDS ORDERED: *HR* LORazepam 0.5 MG TABLET PO SCH (21:00)
[2022-02-17] MEDS: *HR* LORazepam 0.5 MG TABLET PO PRN (22:50)
[2022-02-18 02:47] LABS: Basophils # 0.1 K/mcL (0.0-0.2); Basophils % 0.7 %; Eosinophils # 0.5 K/mcL (0.0-0.6); Eosinophils % 5.4 %; Hematocrit 40.5 % (35.3-44.9); Hemoglobin 12.1 g/dL (11.5-15.4); Immature Granulocytes % 0.5 % (0-4); Lymphocytes # 1.8 K/mcL (0.6-4.6); Lymphocytes % 18.1 %; Mean Corpuscular HGB Conc 29.9 g/dL (31.6-35.5); Mean Corpuscular Hemoglobin 26.6 pg (28.0-33.3); Mean Platelet Volume 10.2 fL (9.4-12.4); Monocytes # 0.6 K/mcL (0.0-1.3); Monocytes % 6.5 %; Neutrophils # 6.7 K/mcL (1.6-8.9); Platelet Count 288 K/mcL (140-400); Red Blood Count 4.55 M/mcL (3.82-4.97); Red Cell Distribution Width 22.3 % (11.5-14.5); Segmented Neutrophils % 68.8 %
[2022-02-18 02:52] LABS: White Blood Count 9.7 K/mcL (4.3-11.1)
[2022-02-18 03:05] LABS: BUN/Creatinine Ratio 20 (6-26); Blood Urea Nitrogen 15 mg/dL (8-23); Calcium 8.6 mg/dL (8.6-10.3); Carbon Dioxide 30 mEq/L (23-29); Chloride 104 mEq/L (98-107); Glucose 129 mg/dL (70-105); Magnesium 1.5 mg/dL (1.6-2.6); Osmolality,Calculated 289 (280-300); Potassium 4.2 mEq/L (3.5-5.1); Sodium 138 mEq/L (136-145); eGFR For African Americans > 60 (> 60); eGFR For Non-African Americans > 60 (> 60)
[2022-02-18] MEDS: Acetaminophen 325 MG TABLET PO PRN ×2 (03:09→12:54)
[2022-02-18] MEDS: Ipratropium/Albuterol Neb 3 ML IH PRN ×2 (07:44→21:37)
[2022-02-18] MEDS: Budesonide Neb 0.5 MG/2 ML IH SCH ×2 (07:44→20:20)
[2022-02-18] MEDS: Budesonide/Formoterol 160/4.5 1 PUFF INH IH SCH ×2 (07:46→20:21)
[2022-02-18] MEDS: Tiotropium 10 INH DOSE IH SCH (07:47)
[2022-02-18] MEDS: Insulin LISPRO 300 UNITS/3 ML VIAL SUBQ SCH ×4 (07:50→21:02)
[2022-02-18] MEDS: Metoprolol XL (24 HR) Succ 50 MG TAB.ER.24H PO SCH (08:42)
[2022-02-18] MEDS: Ascorbic Acid 500 MG TABLET PO SCH (08:42)
[2022-02-18] MEDS: amLODIPine 5 MG TABLET PO SCH (08:42)
[2022-02-18] MEDS: *HR* LORazepam 0.5 MG TABLET PO PRN ×2 (08:42→16:23)
[2022-02-18] MEDS: *HR* Methadone 10 MG TABLET PO SCH (08:42)
[2022-02-18] MEDS: Cholecalciferol (D-3) 1,000 UNIT (25MCG) TABLET PO SCH (08:42)
[2022-02-18] MEDS: Furosemide 40 MG/4 ML VIAL IVP SCH ×2 (08:43→21:02)
[2022-02-18] MEDS: Isosorbide MONOnitrate (24 HR) 60 MG TAB.ER.24H PO SCH ×2 (08:43→21:00)
[2022-02-18] MEDS: Gabapentin 400 MG CAPSULE PO SCH ×3 (08:43→21:01)
[2022-02-18] MEDS: *HR* Rivaroxaban 10 MG TABLET PO SCH (16:23)
[2022-02-18] MEDS: Melatonin 3 MG TABLET PO SCH (21:01)
[2022-02-18] MEDS ORDERED: Furosemide 40 MG/4 ML VIAL IVP ONE (23:33)
[2022-02-18 23:55] LABS: ABG Base Excess 3 mEq/L (-2 to 3); ABG HCO3 29 mEq/L (21-27); ABG Oxygen Saturation 91 % (95-98); ABG PCO2 49 mmHg (35-45); ABG PH 7.38 pH Units (7.32-7.45); ABG PO2 63 mmHg (85-104); ABG TCO2 30 mEq/L (20-26)
[2022-02-19 03:56] LABS: Basophils # 0.1 K/mcL (0.0-0.2); Basophils % 0.6 %; Eosinophils # 0.6 K/mcL (0.0-0.6); Eosinophils % 6.1 %; Hematocrit 38.3 % (35.3-44.9); Hemoglobin 11.3 g/dL (11.5-15.4); Immature Granulocytes % 0.5 % (0-4); Lymphocytes # 2.2 K/mcL (0.6-4.6); Lymphocytes % 21.5 %; Mean Corpuscular HGB Conc 29.5 g/dL (31.6-35.5); Mean Corpuscular Hemoglobin 26.6 pg (28.0-33.3); Mean Corpuscular Volume 90.1 fL (83.0-100.0); Mean Platelet Volume 10.4 fL (9.4-12.4); Monocytes # 0.7 K/mcL (0.0-1.3); Monocytes % 6.4 %; Neutrophils # 6.8 K/mcL (1.6-8.9); Platelet Count 274 K/mcL (140-400); Red Blood Count 4.25 M/mcL (3.82-4.97); Red Cell Distribution Width 21.6 % (11.5-14.5); Segmented Neutrophils % 64.9 %; White Blood Count 10.4 K/mcL (4.3-11.1)
[2022-02-19 04:18] LABS: BUN/Creatinine Ratio 32 (6-26); Blood Urea Nitrogen 30 mg/dL (8-23); Calcium 8.6 mg/dL (8.6-10.3); Carbon Dioxide 28 mEq/L (23-29); Chloride 102 mEq/L (98-107); Glucose 181 mg/dL (70-105); Osmolality,Calculated 295 (280-300); Potassium 4.5 mEq/L (3.5-5.1); Sodium 137 mEq/L (136-145); eGFR For African Americans > 60 (> 60); eGFR For Non-African Americans > 60 (> 60)
[2022-02-19] MEDS: *HR* Methadone 10 MG TABLET PO SCH ×3 (04:41→20:23)
[2022-02-19] MEDS: Ipratropium/Albuterol Neb 3 ML IH PRN (07:30)
[2022-02-19] MEDS: Budesonide Neb 0.5 MG/2 ML IH SCH ×2 (07:30→22:07)
[2022-02-19] MEDS: Tiotropium 10 INH DOSE IH SCH (07:32)
[2022-02-19] MEDS ORDERED: Iopamidol - 370 500 ML MLS IVP ONE (08:20)
[2022-02-19] MEDS: Insulin LISPRO 300 UNITS/3 ML VIAL SUBQ SCH ×4 (08:35→20:24)
[2022-02-19] MEDS: Furosemide 40 MG/4 ML VIAL IVP SCH ×2 (08:35→20:24)
[2022-02-19] MEDS: Gabapentin 400 MG CAPSULE PO SCH ×3 (08:36→20:23)
[2022-02-19] MEDS: Ascorbic Acid 500 MG TABLET PO SCH (08:36)
[2022-02-19] MEDS: amLODIPine 5 MG TABLET PO SCH (08:36)
[2022-02-19] MEDS: Isosorbide MONOnitrate (24 HR) 60 MG TAB.ER.24H PO SCH ×2 (08:36→20:23)
[2022-02-19] MEDS: Cholecalciferol (D-3) 1,000 UNIT (25MCG) TABLET PO SCH (08:36)
[2022-02-19] MEDS: Metoprolol XL (24 HR) Succ 50 MG TAB.ER.24H PO SCH (08:37)
[2022-02-19] MEDS ORDERED: Fosfomycin Tromethamine 3 GM Packet PO ONE (10:30)
[2022-02-19] MEDS: Ipratropium/Albuterol Neb 3 ML IH SCH ×3 (10:56→22:07)
[2022-02-19] MEDS: *HR* LORazepam 0.5 MG TABLET PO PRN (11:32)
[2022-02-19] MEDS: *HR* Rivaroxaban 10 MG TABLET PO SCH (16:28)
[2022-02-19] MEDS: Melatonin 3 MG TABLET PO SCH (20:24)
[2022-02-19] MEDS: Insulin DETEMIR 100 UNIT/ML X5UNITS SUBQ SCH (20:24)
[2022-02-20] MEDS: Ipratropium/Albuterol Neb 3 ML IH SCH ×4 (03:38→21:58)
[2022-02-20 05:39] LABS: Basophils # 0.1 K/mcL (0.0-0.2); Basophils % 0.7 %; Eosinophils # 0.6 K/mcL (0.0-0.6); Eosinophils % 6.4 %; Hemoglobin 11.7 g/dL (11.5-15.4); Immature Granulocytes % 0.5 % (0-4); Lymphocytes # 2.1 K/mcL (0.6-4.6); Lymphocytes % 21.5 %; Mean Corpuscular Hemoglobin 26.8 pg (28.0-33.3); Mean Corpuscular Volume 89.2 fL (83.0-100.0); Mean Platelet Volume 10.6 fL (9.4-12.4); Monocytes # 0.6 K/mcL (0.0-1.3); Monocytes % 6.5 %; Neutrophils # 6.3 K/mcL (1.6-8.9); Platelet Count 260 K/mcL (140-400); Red Blood Count 4.37 M/mcL (3.82-4.97); Red Cell Distribution Width 21.2 % (11.5-14.5); Segmented Neutrophils % 64.4 %; White Blood Count 9.8 K/mcL (4.3-11.1)
[2022-02-20 05:53] LABS: Calcium 8.8 mg/dL (8.6-10.3); Potassium 4.6 mEq/L (3.5-5.1)
[2022-02-20] MEDS: Metoprolol XL (24 HR) Succ 50 MG TAB.ER.24H PO SCH (09:27)
[2022-02-20] MEDS: Furosemide 40 MG/4 ML VIAL IVP SCH (09:27)
[2022-02-20] MEDS: Cholecalciferol (D-3) 1,000 UNIT (25MCG) TABLET PO SCH (09:27)
[2022-02-20] MEDS: Ascorbic Acid 500 MG TABLET PO SCH (09:28)
[2022-02-20] MEDS: *HR* Methadone 10 MG TABLET PO SCH ×2 (09:28→21:30)
[2022-02-20] MEDS: amLODIPine 5 MG TABLET PO SCH (09:28)
[2022-02-20] MEDS: Gabapentin 400 MG CAPSULE PO SCH ×3 (09:28→21:30)
[2022-02-20] MEDS: Isosorbide MONOnitrate (24 HR) 60 MG TAB.ER.24H PO SCH ×2 (09:28→21:41)
[2022-02-20] MEDS: Insulin LISPRO 300 UNITS/3 ML VIAL SUBQ SCH ×4 (09:29→21:31)
[2022-02-20] MEDS: Budesonide Neb 0.5 MG/2 ML IH SCH ×2 (09:48→21:57)
[2022-02-20] MEDS: predniSONE 20 MG TABLET PO SCH (11:46)
[2022-02-20] MEDS: *HR* LORazepam 0.5 MG TABLET PO PRN (11:46)
[2022-02-20] MEDS: Acetylcysteine 10% 2 ML INHSOL IH SCH ×4 (13:40→21:58)
[2022-02-20] MEDS: Acetaminophen 325 MG TABLET PO PRN (15:00)
[2022-02-20] MEDS: Furosemide 40 MG TABLET PO SCH (16:19)
[2022-02-20] MEDS: *HR* Rivaroxaban 10 MG TABLET PO SCH (16:20)
[2022-02-20] MEDS: Melatonin 3 MG TABLET PO SCH (21:30)
[2022-02-20] MEDS: Insulin DETEMIR 100 UNIT/ML X5UNITS SUBQ SCH (21:31)
[2022-02-20] MEDS ORDERED: Insulin DETEMIR 100 UNIT/ML X5UNITS SUBQ ONE (22:34)
[2022-02-20] MEDS ORDERED: Insulin LISPRO 300 UNITS/3 ML VIAL SUBQ ONE (22:38)
[2022-02-21 02:26] LABS: Basophils % 0.3 %; Eosinophils % 0.2 %; Hematocrit 38.1 % (35.3-44.9); Hemoglobin 11.4 g/dL (11.5-15.4); Immature Granulocytes % 0.8 % (0-4); Lymphocytes % 9.9 %; Mean Corpuscular HGB Conc 29.9 g/dL (31.6-35.5); Mean Corpuscular Hemoglobin 26.3 pg (28.0-33.3); Mean Platelet Volume 10.2 fL (9.4-12.4); Monocytes # 0.5 K/mcL (0.0-1.3); Monocytes % 5.1 %; Neutrophils # 8.3 K/mcL (1.6-8.9); Platelet Count 235 K/mcL (140-400); Red Blood Count 4.33 M/mcL (3.82-4.97); Red Cell Distribution Width 20.3 % (11.5-14.5); Segmented Neutrophils % 83.7 %; White Blood Count 9.9 K/mcL (4.3-11.1)
[2022-02-21 02:44] LABS: BUN/Creatinine Ratio 45 (6-26); Blood Urea Nitrogen 48 mg/dL (8-23); Calcium 8.8 mg/dL (8.6-10.3); Carbon Dioxide 26 mEq/L (23-29); Chloride 99 mEq/L (98-107); Glucose 326 mg/dL (70-105); Osmolality,Calculated 297 (280-300); Sodium 131 mEq/L (136-145); eGFR For African Americans > 60 (> 60); eGFR For Non-African Americans 52 (> 60)
[2022-02-21] MEDS: Ipratropium/Albuterol Neb 3 ML IH SCH ×2 (03:11→10:38)
[2022-02-21] MEDS: Acetylcysteine 10% 2 ML INHSOL IH SCH (03:11)
[2022-02-21] MEDS: Insulin LISPRO 300 UNITS/3 ML VIAL SUBQ SCH ×2 (08:05→12:17)
[2022-02-21] MEDS: *HR* Methadone 10 MG TABLET PO SCH (08:06)
[2022-02-21] MEDS: Metoprolol XL (24 HR) Succ 50 MG TAB.ER.24H PO SCH (08:06)
[2022-02-21] MEDS: Furosemide 40 MG TABLET PO SCH (08:06)
[2022-02-21] MEDS: amLODIPine 5 MG TABLET PO SCH (08:06)
[2022-02-21] MEDS: predniSONE 20 MG TABLET PO SCH (08:06)
[2022-02-21] MEDS: Isosorbide MONOnitrate (24 HR) 60 MG TAB.ER.24H PO SCH (08:07)
[2022-02-21] MEDS: Gabapentin 400 MG CAPSULE PO SCH (08:08)
[2022-02-21] MEDS: Cholecalciferol (D-3) 1,000 UNIT (25MCG) TABLET PO SCH (08:08)
[2022-02-21] MEDS: Ascorbic Acid 500 MG TABLET PO SCH (08:08)
[2022-02-21] MEDS ORDERED: Insulin DETEMIR 100 UNIT/ML X5UNITS SUBQ SCH (09:00)
[2022-02-21] MEDS: Budesonide Neb 0.5 MG/2 ML IH SCH (10:38)
[2022-02-21 10:44] VITALS: BP 157/61; PULSE 81; TEMP 97.8; O2SAT 94
== END 2022-02-21 12:48 | disposition hospice, home (50) ==
LOC: EMEROOARM 17:38 → 3ANU 21:03 → INTOOBSV 21:03 → SUATTDRO 21:03 → 3ANU 22:08
PROVIDERS: ADMIT Internal Medicine; ATTEND Family Medicine

== ENCOUNTER 2022-03-19 10:50 | Inpatient (IN) ==
[2022-03-19 15:27] LABS: Basophils # 0.1 K/mcL (0.0-0.2); Basophils % 0.9 %; Eosinophils # 0.4 K/mcL (0.0-0.6); Eosinophils % 4.6 %; Hematocrit 42.7 % (35.3-44.9); Hemoglobin 13.2 g/dL (11.5-15.4); Immature Granulocytes % 0.8 % (0-4); Lymphocytes # 1.5 K/mcL (0.6-4.6); Lymphocytes % 16.6 %; Mean Corpuscular HGB Conc 30.9 g/dL (31.6-35.5); Mean Corpuscular Hemoglobin 26.9 pg (28.0-33.3); Mean Corpuscular Volume 87.1 fL (83.0-100.0); Monocytes # 0.5 K/mcL (0.0-1.3); Monocytes % 5.8 %; Neutrophils # 6.5 K/mcL (1.6-8.9); Platelet Count 233 K/mcL (140-400); Red Cell Distribution Width 17.2 % (11.5-14.5); Segmented Neutrophils % 71.3 %; White Blood Count 9.2 K/mcL (4.3-11.1)
[2022-03-19] MEDS ORDERED: *HR* OxyCODONE Immed Rel 5 MG TABLET PO ONE (15:33)
[2022-03-19 15:48] LABS: Amorphous Sediment,Urine Few per hpf (None-Few); Bilirubin,Urine Negative (Negative); Blood,Urine Trace (Negative); Clarity,Urine Turbid (Clear); Color,Urine Yellow (Yellow); Glucose,Urine (UA) 30 mg/dL (Normal); Ketones,Urine Negative (Negative); Leukocyte Esterase,Urine Moderate (Negative); Nitrite,Urine Positive (Negative); Protein,Urine >=600 mg/dL (Neg-Trace); Specific Gravity,Urine 1.016 (1.010-1.025); Squamous Epithelial Cell,Urine Few per hpf (None-Few); Urobilinogen,Urine Normal (Normal); WBC,Urine 50-100 per hpf (0-3)
[2022-03-19 15:55] LABS: BUN/Creatinine Ratio 22 (6-26); Blood Urea Nitrogen 18 mg/dL (8-23); Calcium 8.9 mg/dL (8.6-10.3); Carbon Dioxide 24 mEq/L (23-29); Chloride 107 mEq/L (98-107); Glucose 138 mg/dL (70-105); Osmolality,Calculated 290 (280-300); Potassium 5.1 mEq/L (3.5-5.1); Sodium 138 mEq/L (136-145); Troponin I < 0.03 ng/mL (< 0.04); eGFR For African Americans > 60 (> 60); eGFR For Non-African Americans > 60 (> 60)
[2022-03-19 16:43] LABS: Alanine Aminotransferase 8 Units/L (7-52); Albumin 3.1 g/dL (3.5-5.7); Albumin/Globulin Ratio 0.8 (1.1-2.2); Alkaline Phosphatase 119 Units/L (34-104); Aspartate Amino Transferase 10 Units/L (13-39); Bilirubin,Direct 0.1 mg/dL (0.0-0.2); Bilirubin,Indirect 0.2 mg/dL (0.0-1.0); Bilirubin,Total 0.3 mg/dL (0.3-1.0); Globulin 3.8 g/dL (2.4-3.5); Lipase 4 Units/L (11-82); Total Protein 6.9 g/dL (6.4-8.9)
[2022-03-19] MEDS ORDERED: Piperacillin/Tazobactam 4.5 GM in 0.9 % Sodium Chloride Mini Bag 100 ML IVPB ONE (17:31)
[2022-03-19] MEDS ORDERED: Piperacillin/Tazobactam 3.375 GM in 0.9 % Sodium Chloride Mini Bag 100 ML IVPB ONE (17:45)
[2022-03-19] MEDS ORDERED: Ondansetron 4 MG/2 ML VIAL IVP PRN (17:56)
[2022-03-19] MEDS ORDERED: Naloxone 0.4 MG/ML INJ IVP PRN (17:56)
[2022-03-19] MEDS ORDERED: *HR* Dextrose 50 % in Water (Syg) 50 ML SYRINGE IVP PRN (18:32)
[2022-03-19] MEDS ORDERED: Dextrose Gel 15 GM/37.5 ML TUBE PO PRN ×2 (18:32)
[2022-03-19] MEDS ORDERED: D5% in Water 1,000 ML IVC PRN (18:32)
[2022-03-19] MEDS: Meropenem 1,000 MG in 0.9 % Sodium Chloride Mini Bag 100 ML IVPB SCH (20:17)
[2022-03-19] MEDS: *HR* Methadone 10 MG TABLET PO SCH (20:41)
[2022-03-19] MEDS: *HR* LORazepam 0.5 MG TABLET PO PRN (20:41)
[2022-03-19] MEDS: Gabapentin 400 MG CAPSULE PO SCH (20:41)
[2022-03-19] MEDS: Melatonin 3 MG TABLET PO PRN (20:41)
[2022-03-19] MEDS: Insulin LISPRO 300 UNITS/3 ML VIAL SUBQ SCH (21:51)
[2022-03-19] MEDS: Isosorbide MONOnitrate (24 HR) 60 MG TAB.ER.24H PO SCH (22:51)
[2022-03-19] MEDS: Metoprolol XL (24 HR) Succ 50 MG TAB.ER.24H PO SCH (22:51)
[2022-03-19] MEDS: Ipratropium/Albuterol Neb 3 ML IH SCH (23:12)
[2022-03-20 02:05] LABS: Basophils # 0.1 K/mcL (0.0-0.2); Basophils % 0.7 %; Eosinophils # 0.4 K/mcL (0.0-0.6); Eosinophils % 4.5 %; Hematocrit 38.9 % (35.3-44.9); Hemoglobin 12.1 g/dL (11.5-15.4); Immature Granulocytes % 0.7 % (0-4); Lymphocytes # 2.3 K/mcL (0.6-4.6); Lymphocytes % 23.5 %; Mean Corpuscular HGB Conc 31.1 g/dL (31.6-35.5); Mean Corpuscular Volume 86.8 fL (83.0-100.0); Mean Platelet Volume 10.4 fL (9.4-12.4); Monocytes # 0.6 K/mcL (0.0-1.3); Monocytes % 5.6 %; Neutrophils # 6.4 K/mcL (1.6-8.9); Platelet Count 220 K/mcL (140-400); Red Blood Count 4.48 M/mcL (3.82-4.97); White Blood Count 9.9 K/mcL (4.3-11.1)
[2022-03-20] MEDS: Meropenem 1,000 MG in 0.9 % Sodium Chloride Mini Bag 100 ML IVPB SCH ×3 (02:23→19:46)
[2022-03-20 02:29] LABS: BUN/Creatinine Ratio 24 (6-26); Blood Urea Nitrogen 17 mg/dL (8-23); Calcium 8.4 mg/dL (8.6-10.3); Carbon Dioxide 25 mEq/L (23-29); Chloride 110 mEq/L (98-107); Glucose 115 mg/dL (70-105); Magnesium 1.7 mg/dL (1.6-2.6); Osmolality,Calculated 288 (280-300); Potassium 4.4 mEq/L (3.5-5.1); Sodium 138 mEq/L (136-145); eGFR For African Americans > 60 (> 60); eGFR For Non-African Americans > 60 (> 60)
[2022-03-20 03:03] LABS: Estimated Average Glucose 174 mg/dl; Hemoglobin A1C 7.7 %
[2022-03-20] MEDS: Ipratropium/Albuterol Neb 3 ML IH SCH ×4 (03:43→20:24)
[2022-03-20] MEDS: *HR* Methadone 10 MG TABLET PO SCH ×2 (06:14→17:43)
[2022-03-20] MEDS: Gabapentin 400 MG CAPSULE PO SCH ×3 (08:03→20:41)
[2022-03-20] MEDS: Insulin LISPRO 300 UNITS/3 ML VIAL SUBQ SCH ×4 (08:03→20:11)
[2022-03-20] MEDS: Metoprolol XL (24 HR) Succ 50 MG TAB.ER.24H PO SCH (08:03)
[2022-03-20] MEDS: Isosorbide MONOnitrate (24 HR) 60 MG TAB.ER.24H PO SCH ×2 (08:04→20:41)
[2022-03-20] MEDS: *HR* Rivaroxaban 10 MG TABLET PO SCH (08:04)
[2022-03-20] MEDS: *HR* LORazepam 0.5 MG TABLET PO PRN ×2 (11:14→22:55)
[2022-03-20] MEDS: hydrOXYzine pamoate 25 MG CAPSULE PO PRN ×2 (15:17→22:55)
[2022-03-20] MEDS: Melatonin 3 MG TABLET PO PRN (22:55)
[2022-03-21 02:45] LABS: Basophils # 0.1 K/mcL (0.0-0.2); Basophils % 0.7 %; Eosinophils # 0.4 K/mcL (0.0-0.6); Eosinophils % 3.6 %; Hematocrit 38.1 % (35.3-44.9); Hemoglobin 11.7 g/dL (11.5-15.4); Immature Granulocytes % 0.7 % (0-4); Lymphocytes # 2.5 K/mcL (0.6-4.6); Lymphocytes % 23.9 %; Mean Corpuscular HGB Conc 30.7 g/dL (31.6-35.5); Mean Corpuscular Hemoglobin 26.8 pg (28.0-33.3); Mean Corpuscular Volume 87.4 fL (83.0-100.0); Mean Platelet Volume 10.6 fL (9.4-12.4); Monocytes # 0.7 K/mcL (0.0-1.3); Monocytes % 6.1 %; Neutrophils # 6.9 K/mcL (1.6-8.9); Platelet Count 214 K/mcL (140-400); Red Blood Count 4.36 M/mcL (3.82-4.97); White Blood Count 10.6 K/mcL (4.3-11.1)
[2022-03-21 03:00] LABS: BUN/Creatinine Ratio 27 (6-26); Blood Urea Nitrogen 23 mg/dL (8-23); Calcium 8.3 mg/dL (8.6-10.3); Carbon Dioxide 23 mEq/L (23-29); Chloride 107 mEq/L (98-107); Glucose 186 mg/dL (70-105); Osmolality,Calculated 289 (280-300); Potassium 4.4 mEq/L (3.5-5.1); Sodium 135 mEq/L (136-145); eGFR For African Americans > 60 (> 60); eGFR For Non-African Americans > 60 (> 60)
[2022-03-21] MEDS: Meropenem 1,000 MG in 0.9 % Sodium Chloride Mini Bag 100 ML IVPB SCH ×2 (03:22→15:15)
[2022-03-21] MEDS: Ipratropium/Albuterol Neb 3 ML IH SCH ×4 (04:24→22:04)
[2022-03-21] MEDS: *HR* Methadone 10 MG TABLET PO SCH ×2 (05:49→18:12)
[2022-03-21] MEDS ORDERED: Nitroglycerin 0.4 MG TAB.SUBL SL PRN (07:31)
[2022-03-21] MEDS: *HR* Rivaroxaban 10 MG TABLET PO SCH (07:41)
[2022-03-21] MEDS: Isosorbide MONOnitrate (24 HR) 60 MG TAB.ER.24H PO SCH ×2 (07:42→20:41)
[2022-03-21] MEDS: Gabapentin 400 MG CAPSULE PO SCH ×3 (07:42→20:40)
[2022-03-21] MEDS: Metoprolol XL (24 HR) Succ 50 MG TAB.ER.24H PO SCH (07:42)
[2022-03-21] MEDS: *HR* LORazepam 0.5 MG TABLET PO PRN ×3 (07:42→21:22)
[2022-03-21] MEDS: Insulin LISPRO 300 UNITS/3 ML VIAL SUBQ SCH ×4 (07:44→20:41)
[2022-03-21] MEDS: Cholecalciferol (D-3) 1,000 UNIT (25MCG) TABLET PO SCH (07:58)
[2022-03-21] MEDS: Insulin DETEMIR 100 UNIT/ML X5UNITS SUBQ SCH ×2 (07:59→21:21)
[2022-03-21] MEDS ORDERED: Ipratropium/Albuterol Neb 3 ML IH PRN (08:00)
[2022-03-21] MEDS: Budesonide/Formoterol 160/4.5 1 PUFF INH IH SCH ×2 (09:52→22:04)
[2022-03-21] MEDS: Nystatin SUSP 5 ML UD.LIQ PO SCH ×4 (10:56→21:21)
[2022-03-21] MEDS: hydrOXYzine pamoate 25 MG CAPSULE PO SCH ×3 (10:56→20:41)
[2022-03-22] MEDS: Ipratropium/Albuterol Neb 3 ML IH SCH ×4 (03:38→21:06)
[2022-03-22] MEDS: Meropenem 1,000 MG in 0.9 % Sodium Chloride Mini Bag 100 ML IVPB SCH (03:58)
[2022-03-22] MEDS: *HR* Methadone 10 MG TABLET PO SCH ×2 (06:17→17:20)
[2022-03-22 07:14] LABS: BUN/Creatinine Ratio 33 (6-26); Blood Urea Nitrogen 28 mg/dL (8-23); Calcium 8.5 mg/dL (8.6-10.3); Carbon Dioxide 28 mEq/L (23-29); Chloride 105 mEq/L (98-107); Glucose 158 mg/dL (70-105); Osmolality,Calculated 291 (280-300); Potassium 5.1 mEq/L (3.5-5.1); Sodium 136 mEq/L (136-145); eGFR For African Americans > 60 (> 60); eGFR For Non-African Americans > 60 (> 60)
[2022-03-22] MEDS: Gabapentin 400 MG CAPSULE PO SCH ×3 (09:07→23:48)
[2022-03-22] MEDS: Isosorbide MONOnitrate (24 HR) 60 MG TAB.ER.24H PO SCH ×2 (09:08→23:47)
[2022-03-22] MEDS: hydrOXYzine pamoate 25 MG CAPSULE PO SCH ×3 (09:08→23:47)
[2022-03-22] MEDS: Cholecalciferol (D-3) 1,000 UNIT (25MCG) TABLET PO SCH (09:08)
[2022-03-22] MEDS: *HR* LORazepam 0.5 MG TABLET PO PRN ×3 (09:08→23:59)
[2022-03-22] MEDS: Metoprolol XL (24 HR) Succ 50 MG TAB.ER.24H PO SCH (09:08)
[2022-03-22] MEDS: *HR* Rivaroxaban 10 MG TABLET PO SCH (09:08)
[2022-03-22] MEDS: Nystatin SUSP 5 ML UD.LIQ PO SCH ×4 (09:08→23:43)
[2022-03-22] MEDS: Insulin LISPRO 300 UNITS/3 ML VIAL SUBQ SCH ×4 (09:10→23:29)
[2022-03-22 09:11] LABS: Basophils # 0.1 K/mcL (0.0-0.2); Basophils % 0.7 %; Eosinophils # 0.5 K/mcL (0.0-0.6); Eosinophils % 4.6 %; Hematocrit 37.2 % (35.3-44.9); Hemoglobin 11.4 g/dL (11.5-15.4); Lymphocytes # 2.3 K/mcL (0.6-4.6); Lymphocytes % 22.6 %; Mean Corpuscular HGB Conc 30.6 g/dL (31.6-35.5); Mean Corpuscular Hemoglobin 26.7 pg (28.0-33.3); Mean Corpuscular Volume 87.1 fL (83.0-100.0); Mean Platelet Volume 10.8 fL (9.4-12.4); Monocytes # 0.7 K/mcL (0.0-1.3); Monocytes % 6.6 %; Neutrophils # 6.5 K/mcL (1.6-8.9); Platelet Count 218 K/mcL (140-400); Red Blood Count 4.27 M/mcL (3.82-4.97); Red Cell Distribution Width 16.8 % (11.5-14.5); Segmented Neutrophils % 64.5 %; White Blood Count 10.1 K/mcL (4.3-11.1)
[2022-03-22] MEDS: Insulin DETEMIR 100 UNIT/ML X5UNITS SUBQ SCH ×2 (09:13→23:45)
[2022-03-22] MEDS: Budesonide/Formoterol 160/4.5 1 PUFF INH IH SCH ×2 (11:14→21:06)
[2022-03-22] MEDS: Ertapenem 1,000 MG in 0.9 % Sodium Chloride Mini Bag 100 ML IVPB SCH (13:17)
[2022-03-22] MEDS: Acetaminophen 325 MG TABLET PO PRN (14:24)
[2022-03-22] MEDS: Melatonin 3 MG TABLET PO PRN (23:59)
[2022-03-23] MEDS: Acetaminophen 325 MG TABLET PO PRN (02:48)
[2022-03-23] MEDS: Ipratropium/Albuterol Neb 3 ML IH SCH ×2 (03:52→10:05)
[2022-03-23] MEDS: *HR* Methadone 10 MG TABLET PO SCH ×2 (06:58→17:05)
[2022-03-23] MEDS: Insulin LISPRO 300 UNITS/3 ML VIAL SUBQ SCH ×4 (08:27→21:14)
[2022-03-23] MEDS: Cholecalciferol (D-3) 1,000 UNIT (25MCG) TABLET PO SCH (08:53)
[2022-03-23] MEDS: hydrOXYzine pamoate 25 MG CAPSULE PO SCH ×3 (08:53→21:02)
[2022-03-23] MEDS: Gabapentin 400 MG CAPSULE PO SCH ×3 (08:53→21:03)
[2022-03-23] MEDS: Metoprolol XL (24 HR) Succ 50 MG TAB.ER.24H PO SCH (08:53)
[2022-03-23] MEDS: Insulin DETEMIR 100 UNIT/ML X5UNITS SUBQ SCH (08:54)
[2022-03-23] MEDS: Ertapenem 1,000 MG in 0.9 % Sodium Chloride Mini Bag 100 ML IVPB SCH (08:54)
[2022-03-23] MEDS: *HR* Rivaroxaban 10 MG TABLET PO SCH (08:54)
[2022-03-23] MEDS: Isosorbide MONOnitrate (24 HR) 60 MG TAB.ER.24H PO SCH ×2 (08:54→21:03)
[2022-03-23] MEDS: Nystatin SUSP 5 ML UD.LIQ PO SCH ×4 (08:55→21:03)
[2022-03-23] MEDS: Budesonide/Formoterol 160/4.5 1 PUFF INH IH SCH (10:05)
[2022-03-23] MEDS: *HR* LORazepam 0.5 MG TABLET PO PRN ×2 (15:10→23:06)
[2022-03-23] MEDS: Melatonin 3 MG TABLET PO PRN (23:06)
[2022-03-24] MEDS: Acetaminophen 325 MG TABLET PO PRN (04:06)
[2022-03-24] MEDS: *HR* Methadone 10 MG TABLET PO SCH (06:13)
[2022-03-24] MEDS: Insulin DETEMIR 100 UNIT/ML X5UNITS SUBQ SCH ×2 (06:16→10:03)
[2022-03-24] MEDS: Metoprolol XL (24 HR) Succ 50 MG TAB.ER.24H PO SCH (07:53)
[2022-03-24] MEDS: *HR* Rivaroxaban 10 MG TABLET PO SCH (07:53)
[2022-03-24] MEDS: Nystatin SUSP 5 ML UD.LIQ PO SCH ×2 (07:53→11:49)
[2022-03-24] MEDS: Isosorbide MONOnitrate (24 HR) 60 MG TAB.ER.24H PO SCH (07:54)
[2022-03-24] MEDS: Cholecalciferol (D-3) 1,000 UNIT (25MCG) TABLET PO SCH (07:54)
[2022-03-24] MEDS: hydrOXYzine pamoate 25 MG CAPSULE PO SCH (07:54)
[2022-03-24] MEDS: Gabapentin 400 MG CAPSULE PO SCH (07:54)
[2022-03-24] MEDS: Ertapenem 1,000 MG in 0.9 % Sodium Chloride Mini Bag 100 ML IVPB SCH (07:55)
[2022-03-24] MEDS: Insulin LISPRO 300 UNITS/3 ML VIAL SUBQ SCH ×2 (07:55→11:49)
[2022-03-24 10:17] VITALS: BP 104/60; PULSE 60; TEMP 98; O2SAT 96
== END 2022-03-24 13:44 | disposition home health service (06) | DRG 689 ==
LOC: 3ANU 10:50 → EMEROOARM 10:50 → 3ANU 19:40
PROVIDERS: ADMIT Internal Medicine; ATTEND Internal Medicine